=== PATIENT | female | born 1930 | race Caucasian/White ===

== ENCOUNTER 2017-02-18 14:54 | Inpatient (IN) | payer MEDICARE, OTHER ==
[~2017-02-18] VITALS: Ht 154.9 cm; Wt 64.0 kg
[2017-02-18] MEDS ORDERED: SODIUM CHLORIDE 0.9% 1L BAG IV* STA (15:14)
[2017-02-18] MEDS ORDERED: CEFEPIME 2GM/50 ML (PMX) 50 ML IVPB STA (15:14)
[2017-02-18 15:30] VITALS: Ht 154.9 cm; Wt 64.0 kg
[2017-02-18] MEDS ORDERED: VANCOMYCIN 1 GM (PMX) 250 ML IVPB ONE (15:30)
--- NOTE | 2017-02-18 15:54 | ERA ---
ER Documentation Chief Complaint Date/Time DATE: 02/18/17 TIME: 15:51 Chief Complaint pt biba from snf for leaking g-tube HPI 86-year-old female history of chronic encephalopathy, trach, vent dependent, G- tube who presents for leaking G-tube and a fever. Patient arrives from care home facility because there is leaking from around her G-tube. The G-tube appears to be functioning but there is erosion on the left lateral aspect of the stoma. The patient also was noted to have a fever of 100.1 prior to arrival. The patient is nonverbal therefore remainder of HPI is extremely limited. Patient is full code. ROS Nonverbal Medications Home Meds Reported Medications Simvastatin* (Simvastatin*) 5 Mg Tablet, 5 MG GTB QHS, #30 TAB 02/18/17 Ascorbic Acid (Vitamin C) 500 Mg Tab, 500 MG GTB BID, TAB 02/18/17 Acetaminophen* (Tylenol*) 325 Mg Tablet, 650 MG GTB Q4H Y for MILD PAIN LEVEL 1- 3, TAB FOR TEMP ABOVE 100 DEGREES F. 02/18/17 Carbidopa-Levodopa* (Sinemet*) 25-100 Mg Tab, 1 TAB GTB TID, TAB 02/18/17 Potassium Chloride (Potassium Chloride) 20 Meq Packet, 20 MEQ GTB DAILY, PACKET 02/18/17 Clopidogrel Bisulfate* (Clopidogrel Bisulfate*) 75 Mg Tablet, 75 MG GTB DAILY, # 30 TAB 02/18/17 Chlorhexidine Gluconate (Periogard) 473 Ml Mouthwash, 15 ML MM BID, BOTTLE 02/18/17 Memantine* (Namenda*) 5 Mg Tablet, 5 MG GTB DAILY, #30 TAB 02/18/17 Pramipexole* (Pramipexole*) 0.5 Mg Tablet, 0.5 MG GTB DAILY, TAB 02/18/17 Magnesium Hydroxide* (Milk Of Magnesia*) 400 Mg/5 Ml Oral.susp, 30 ML GTB Q4H, ML 02/18/17 Metoprolol Tartrate* (Lopressor*) 25 Mg Tab, 25 MG GTB Q12H, #60 TAB HOLD FOR SBP BELOW 110 OR HR BELOW 60 02/18/17 Furosemide* (Furosemide*) 40 Mg Tablet, 40 MG GTB DAILY, TAB 02/18/17 Heparin Sodium,Porcine/Pf (HEPARIN SOD 5,000 UNIT/ 0.5 ML) 5,000 Unit/0.5 Ml Vial, 5000 UNIT IJ BID, VIAL 02/18/17 Folic Acid* (Folic Acid*) 1 Mg Tablet, 1 MG GTB DAILY, TAB 02/18/17 Sod Phosphate/Sod Biphosphate* (Fleet* Enema Pediatric) 66.6 Ml Soln, 118 ML UT Q72H Y for CONSTIPATION, ENEMA 02/18/17 Ferrous Sulfate* (Ferrous Sulfate*) 325 Mg Tabec, 325 MG GTB BID, TAB 02/18/17 Epoetin Vasyl (Epogen) 10,000 Units/Ml Soln, 89223 UNITS SC DAILY, VIAL MON,SAT,SAT. HOLD IF HGB ABOVE 12 02/18/17 Bisacodyl* (Bisacodyl*) 10 Mg Supp, 10 MG UT Q48H, SUPP 02/18/17 Donepezil* (Donepezil*) 10 Mg Tablet, 10 MG GTB QHS, #30 TAB 02/18/17 Docusate Sodium* (Docusate Sodium*) 100 Mg Capsule, 100 MG GTB BID, #60 CAP 02/18/17 Citric Acid/Sodium Citrate (Oracit Solution 30 Ml) 30 Ml Solution, 30 ML GTB BID 02/18/17 Lactobacillus Rhamnosus* (Culturelle*) 1 Each Cap.sprink, 1 CAP GTB QHS, CAP 02/18/17 Allergies Allergies: Coded Allergies: No Known Allergies (Verified Allergy, Unknown, 02/18/17) Physical Exam Vitals Vital Signs Date Time Temp Pulse Resp B/P Pulse Ox O2 Delivery O2 Flow Rate FiO2 02/18/17 18:57 83 22 142/80 100 Mechanical Ventilator 02/18/17 17:27 80 17 141/100 100 Mechanical Ventilator 02/18/17 17:22 80 19 100 80 02/18/17 16:44 81 17 153/55 100 Room Air 02/18/17 15:32 84 21 100 100 02/18/17 15:30 98.6 84 10 129/67 100 Physical Exam General: No significant distress Head: Normocephalic, atraumatic. Eyes: Pupils equally reactive, EOM intact ENT: Moist mucous membranes Neck: Supple, no lymphadenopathy Respiratory: Lungs clear bilaterally, no distress Cardiovascular: RRR, no murmurs, rubs, or gallops Abdominal: Soft, G-tube site with significant excoriations and likely chronic contact dermatitis, small abrasion to the left lateral aspect of the stoma, G- tube in place : Deferred MSK: Limited movement of all 4 extremities, no bony abnormalities Neurologic: Limited exam, and encephalopathic, limited movement of all 4 extremities Skin: Excoriations to the abdomen and breast areas consistent with intertrigo Psych: Unable to assess Result Diagram: 02/18/17 1600 02/18/17 1600 Results 24 hrs Laboratory Tests Test 02/18/17 16:00 02/18/17 16:05 02/18/17 17:40 White Blood Count 7.710^3/ul Red Blood Count 3.0310^6/ul Hemoglobin 9.2g/dl Hematocrit 31.8% Mean Corpuscular Volume 105.0fl Mean Corpuscular Hemoglobin 30.4pg Mean Corpuscular Hemoglobin Concent 28.9g/dl Red Cell Distribution Width 16.8% Platelet Count 51947^3/UL Mean Platelet Volume 9.4fl Neutrophils % 75.1% Lymphocytes % 13.2% Monocytes % 5.7% Eosinophils % 4.8% Basophils % 0.3% Nucleated Red Blood Cells % 0.0/100WBC Neutrophils # 5.810^3/ul Lymphocytes # 1.010^3/ul Monocytes # 0.410^3/ul Eosinophils # 0.410^3/ul Basophils # 0.010^3/ul Nucleated Red Blood Cells # 0.010^3/ul Prothrombin Time 15.9Sec Prothrombin Time Ratio 1.2 INR International Normalized Ratio 1.26 Activated Partial Thromboplast Time 35.1Sec Sodium Level 140mmol/L Potassium Level 4.1mmol/L Chloride Level 95mmol/L Carbon Dioxide Level 35mmol/L Anion Gap 14 Blood Urea Nitrogen 47mg/dl Creatinine 1.66mg/dl Glucose Level 93mg/dl Lactic Acid Level 1.2mmol/L 1.8mmol/L Calcium Level 8.9mg/dl Total Bilirubin 0.2mg/dl Direct Bilirubin 0.00mg/dl Indirect Bilirubin 0.2mg/dl Aspartate Amino Transf (AST/SGOT) 15IU/L Alanine Aminotransferase (ALT/SGPT) 15IU/L Alkaline Phosphatase 122IU/L Troponin I < 0.012ng/ml Total Protein 7.1g/dl Albumin 2.6g/dl Globulin 4.50g/dl Albumin/Globulin Ratio 0.57 Urine Color LT. YELLOW Urine Clarity CLEAR Urine pH 6.0 Urine Specific Tie Siding 1.010 Urine Ketones NEGATIVE Urine Nitrite NEGATIVE Urine Bilirubin NEGATIVE Urine Urobilinogen 0.2 E.U./dL Urine Leukocyte Esterase 1+ Urine Microscopic RBC 0-2/HPF Urine WBC Clumps OCCASIONAL Urine Microscopic WBC >50/HPF Urine Squamous Epithelial Cells FEW Urine Bacteria MODERATE Urine Hemoglobin NEGATIVE Urine Glucose NEGATIVE% Urine Total Protein 1+ Current Medications Medications (Trade) Dose Ordered Sig/Love Route PRN Reason Start Time Stop Time Status Last Admin Dose Admin Sodium Chloride 2590 ml 2,590 ml BOLUS OVER 2 HOURS STAT IV* 02/18/17 15:14 02/18/17 15:17 DC 02/18/17 16:31 Cefepime HCl 50 ml @ 100 mls/hr ONCE STAT IVPB 02/18/17 15:14 02/18/17 15:43 DC 02/18/17 16:31 Vancomycin HCl (Vancocin) 250 ml @ 125 mls/hr ONCE ONCE IVPB 02/18/17 15:30 02/18/17 17:29 DC 02/18/17 17:29 Clotrimazole (Lotrimin Cr) 1 applic ONCE ONCE TOP 02/18/17 16:00 02/18/17 16:01 DC 02/18/17 16:31 Ondansetron HCl (Zofran Inj) 4 mg ER BRIDGE PRN IV NAUSEA AND/OR VOMITING 02/18/17 19:00 02/19/17 18:59 Acetaminophen (Tylenol Tab) 650 mg ER BRIDGE PRN PO MILD PAIN/FEVER 02/18/17 19:00 02/19/17 18:59 Acetaminophen (Tylenol Tab) 650 mg Q4H PRN GTB MILD PAIN LEVEL 1-3 02/18/17 19:00 UNV Ascorbic Acid (Vitamin C) 500 mg BID GTB 02/18/17 21:00 UNV Bisacodyl (Dulcolax Supp) 10 mg Q48H UT 02/18/17 19:00 UNV Carbidopa/Levodopa (Sinemet (25/ 100)) 1 tab TID GTB 02/18/17 21:00 UNV Chlorhexidine Gluconate (Peridex) 15 ml BID MM 02/18/17 21:00 UNV Clopidogrel Bisulfate (plaVIX) 75 mg DAILY GTB 02/19/17 09:00 UNV Docusate Sodium (Colace) 100 mg BID PO 02/18/17 21:00 UNV Donepezil HCl (Aricept) 10 mg QHS GTB 02/18/17 21:00 UNV Epoetin Vasyl (Epogen (Esrd)) 10,000 units DAILY SC 02/19/17 09:00 UNV Ferrous Sulfate (Ferrous Sulfate (Ec)) 325 mg BID PO 02/18/17 21:00 UNV Folic Acid (Folic Acid) 1 mg DAILY GTB 02/19/17 09:00 UNV Furosemide (Lasix) 40 mg DAILY GTB 02/19/17 09:00 UNV Lactobacillus Acidophilus/ Rhamnosus (Culturelle) 1 cap QHS GTB 02/18/17 21:00 UNV Magnesium Hydroxide (Milk Of Mag) 30 ml Q4H GTB 02/18/17 19:00 UNV Memantine (Namenda) 5 mg DAILY GTB 02/19/17 09:00 UNV Metoprolol Tartrate (Lopressor) 25 mg Q12H GTB 02/18/17 19:00 UNV Potassium Chloride (Potassium Chloride Pwd/Soln) 20 meq DAILY GTB 02/19/17 09:00 UNV Pramipexole (Mirapex) 0.5 mg DAILY GTB 02/19/17 09:00 UNV Sodium Biphosphate/ Sodium Phosphate (Fleet Enema Pediatric) 118 ml Q72H PRN UT CONSTIPATION 02/18/17 19:00 UNV Miscellaneous Information 30 ml BID GTB 02/18/17 21:00 UNV Miscellaneous Information 5,000 unit BID IJ 02/18/17 21:00 UNV Miscellaneous Information 5 mg QHS GTB 02/18/17 21:00 UNV Procedures/MDM EKG, MONITORS, & DIAGNOSTIC IMAGING: EKG: I reviewed and interpreted a 12-lead EKG. Rhythm: Normal sinus rhythm Ectopy: None Intervals: No abnormalities ST segments: No elevations or depressions T waves: No contiguous inversions Chest x-ray: I reviewed and interpreted a 1 view of the chest Mediastinum: No enlargement Cardiac silhouette: No cardiomegaly Airspace: Clear lung warren bilaterally without evidence of pneumothorax Bones: No evidence of fracture CT abdomen and pelvis: IMPRESSION: 1. COPD with plate-like areas of atelectasis in the right left lower lobes and compressive atelectasis in the left lower lobe. There are bilateral pleural effusions. 2. Atherosclerotic vascular disease involving the coronary arteries. 3. There is a large hiatal hernia. 4. Gastrostomy tube is well positioned in the antrum of the stomach. 5. Splenomegaly with an accessory splenule. 6. There are several nodules and subcutaneous stranding over the anterior abdominal and anterior pelvic wall. Etiology unknown. 7. Myositis ossificans involving the left hip. 8. Diverticulosis of the descending and sigmoid colon. 9. Spondylosis of the thoracic and lumbosacral spine. RPTAT:AAJJ LAB INTERPRETATION: No evidence of lactic acidosis or significant leukocytosis, urinary tract infection MEDICAL DECISION MAKING: The patient presents with multiple issues. The first is that her G-tube is leaking. She has not erosions of the left lateral aspect of the stoma. This is likely consistent with chronic process. GI consultation on a nonemergent basis would be reasonable. The patient also has a report of a low-grade fever. She is ventilator dependent. Broad differential including pneumonia, UTI, acute intra-abdominal process. Sepsis screening will be initiated. The patient's rectal temperature is normal. ER COURSE: Fluid resuscitation was initiated with a 30 cc/kg bolus of saline. Patient was given vancomycin and cefepime empirically. Patient remains well-appearing and is hemodynamically stable. No evidence of severe sepsis. The patient has no significant leukocytosis. I kept the patient and/or family informed of laboratory and diagnostic imaging results throughout the emergency room course. DISPOSITION PLAN: Telemetry admission CONSULTATION: Accepting care team and consultations: I discussed the current laboratory data, diagnostic imaging and emergency care provided. Admitting team: Dr. Rosas Admitting team indication: Insurance directed Departure Diagnosis: Primary Impression: Chronic respiratory failure Qualified Code: J96.10 - Chronic respiratory failure, unspecified whether with hypoxia or hypercapnia Additional Impressions: Urinary tract infection Qualified Code: N39.0 - Urinary tract infection without hematuria, site unspecified Malfunction of gastrostomy tube Encephalopathy chronic Condition: Stable HUGH BELL MD February 18, 2017 15:54
[2017-02-18] MEDS ORDERED: CLOTRIMAZOLE 1% 30 GM CR TOP ONE (16:00)
[2017-02-18 16:33] LABS: ADD SCAN DIFF NO
[2017-02-18 16:35] LABS: ABNORMAL IP MESSAGE 1; BASOPHILS % 0.3 % (0.0-2.0); EOSINOPHILS # 0.4 10^3/ul (0.0-0.5); EOSINOPHILS % 4.8 % (0.0-7.0); HEMATOCRIT 31.8 % (37.0-47.0); HEMOGLOBIN 9.2 g/dl (12.0-16.0); LYMPHOCYTES % 13.2 % (15.0-51.0); MEAN CORPUSCULAR HEMOGLOBIN 30.4 pg (29.0-33.0); MEAN CORPUSCULAR HGB CONC 28.9 g/dl (32.0-37.0); MEAN PLATELET VOLUME 9.4 fl (7.4-10.4); MONOCYTE # 0.4 10^3/ul (0.3-0.9); MONOCYTES % 5.7 % (0.0-11.0); NEUTROPHIL # 5.8 10^3/ul (1.6-7.5); NEUTROPHILS % 75.1 % (39.0-77.0); PLATELET COUNT 462 10^3/UL (140-415); RED BLOOD COUNT 3.03 10^6/ul (4.20-5.40); RED CELL DISTRIBUTION WIDTH 16.8 % (11.5-14.5); WHITE BLOOD COUNT 7.7 10^3/ul (4.8-10.8)
--- NOTE | 2017-02-18 16:39 | RADRPT ---
PROCEDURE: XR Chest. CLINICAL INDICATION: Chest pain. TECHNIQUE: PA and Lateral views of the chest were obtained. COMPARISON: Chest x-ray September 19, 2013. FINDINGS: The soft tissues are normal. There are degenerative osteophytes in the thoracic spine. The heart i s enlarged. The cardiomediastinal silhouette and hilar structures are normal. The pulmonary vascula ture is equilibrated. There are vascular calcifications in the aortic arch. A tracheostomy tube is in place with its tip about 3 cm superior to the bossman. There is consolidative infiltrate in the le ft lower lobe. Faint interstitial pulmonary edema may be present. The diffuse infiltrate seen in th e right lung on the prior study have improved overall. There are bilateral pleural effusions. IMPRESSION: 1. Cardiomegaly with congestive heart failure and bilateral pleural effusions. 2. Asymmetric consolidative infiltrate in the left lower lobe which may be the result of a pneumoni a. 3. Tracheostomy tube is well-positioned at T6. RPTAT:AAJJ Physician Gisella Date Time Electronically viewed and signed by Physician Gisella on 02/18/2017 16:39 ARETHA/
[2017-02-18 16:40] LABS: ADD UMIC YES; URINE BILIRUBIN (Dip) NEGATIVE (NEGATIVE); URINE BLOOD (Dip) NEGATIVE (NEGATIVE); URINE COLOR LT. YELLOW (YELLOW); URINE GLUCOSE (Dip) NEGATIVE (NEGATIVE); URINE KETONES (Dip) NEGATIVE (NEGATIVE); URINE LEUKOCYTE ESTERASE (Dip) 1+ (NEGATIVE); URINE NITRITE (Dip) NEGATIVE (NEGATIVE); URINE TOTAL PROTEIN (Dip) 1+ (NEGATIVE); URINE UROBILINOGEN (Dip) 0.2 E.U./dL (0.1-1.0)
[2017-02-18 16:46] LABS: INR 1.26; PROTIME 15.9 Sec (12.2-14.2); PT RATIO 1.2
[2017-02-18 16:47] LABS: ALBUMIN 2.6 g/dl (3.3-4.9); CHLORIDE 95 mmol/L (97-110); PARTIAL THROMBOPLASTIN TIME 35.1 Sec (25.0-35.0); SODIUM 140 mmol/L (135-144)
[2017-02-18 16:48] LABS: POTASSIUM 4.1 mmol/L (3.5-5.1)
[2017-02-18 16:50] LABS: ALANINE AMINOTRANSFERASE 15 IU/L (13-69); ALBUMIN/GLOBULIN RATIO 0.57; ALKALINE PHOSPHATASE 122 IU/L (42-121); ANION GAP 14 (8-16); ASPARTATE AMINO TRANSFERASE 15 IU/L (15-46); BILIRUBIN,INDIRECT 0.2 mg/dl (0-1.1); BILIRUBIN,TOTAL 0.2 mg/dl (0.2-1.3); BLOOD UREA NITROGEN 47 mg/dl (7-20); CALCIUM 8.9 mg/dl (8.4-10.2); CARBON DIOXIDE 35 mmol/L (21-31); CREATININE 1.66 mg/dl (0.44-1.00); GLUCOSE 93 mg/dl (70-220); TOTAL PROTEIN 7.1 g/dl (6.1-8.1)
[2017-02-18 17:02] LABS: TROPONIN-I < 0.012 ng/ml (0.00-0.12)
[2017-02-18] MEDS ORDERED: LACT1CAP57 GTB (17:07)
[2017-02-18] MEDS ORDERED: CITR30SO GTB (17:10)
[2017-02-18] MEDS ORDERED: DOCU-159 GTB (17:11)
[2017-02-18] MEDS ORDERED: BISA10SU75 PR (17:12)
[2017-02-18] MEDS ORDERED: DONE10TA7 GTB (17:12)
[2017-02-18] MEDS ORDERED: EPO10ESRD SC (17:14)
[2017-02-18] MEDS ORDERED: FER325 GTB (17:14)
[2017-02-18] MEDS ORDERED: FLEETPED PR (17:15)
[2017-02-18] MEDS ORDERED: FOLI-49 GTB (17:16)
[2017-02-18] MEDS ORDERED: HEPA500021 IJ (17:16)
[2017-02-18] MEDS ORDERED: FURO40TA4 GTB (17:17)
[2017-02-18] MEDS ORDERED: METO-448 GTB (17:18)
[2017-02-18 17:19] LABS: BACTERIA,URINE MODERATE; URINE RBCS 0-2 /HPF ([, 0])
[2017-02-18] MEDS ORDERED: MAGN400O4 GTB (17:19)
[2017-02-18 17:20] LABS: SQUAMOUS EPITHELIAL CELL,UR FEW
[2017-02-18] MEDS ORDERED: PRAM0.5T GTB (17:20)
[2017-02-18] MEDS ORDERED: MEMA5TAB GTB (17:21)
[2017-02-18] MEDS ORDERED: CHLO473M2 MM (17:23)
[2017-02-18] MEDS ORDERED: CLOP75TA4 GTB (17:24)
[2017-02-18] MEDS ORDERED: POTA20PA23 GTB (17:26)
[2017-02-18] MEDS ORDERED: SIN25100 GTB (17:27)
[2017-02-18] MEDS ORDERED: ACET325T33 GTB (17:28)
[2017-02-18] MEDS ORDERED: ASC500 GTB (17:29)
[2017-02-18] MEDS ORDERED: SIMV5TAB50 GTB (17:30)
[2017-02-18] MEDS: MAGNESIUM HYDROXIDE 30ML CUP GTB SCH ×2 (19:00→23:10)
[2017-02-18] MEDS ORDERED: ACETAMINOPHEN 325 MG TAB PO PRN (19:00)
[2017-02-18] MEDS: BISACODYL 10 MG SUPP PR SCH (19:00)
[2017-02-18] MEDS ORDERED: ACETAMINOPHEN 325 MG TAB GTB PRN (19:00)
[2017-02-18] MEDS ORDERED: NA PHOSPHATE/BIPHOS 66.6 ML ENEMA PR PRN (19:00)
[2017-02-18] MEDS ORDERED: ONDANSETRON 4 MG INJ IV PRN (19:00)
--- NOTE | 2017-02-18 19:12 | RADRPT ---
PROCEDURE: CT scan of the abdomen and pelvis without IV contrast. CLINICAL INDICATION: Possible sepsis. TECHNIQUE: Thin section axial, coronal and sagittal images were performed through the abdomen and pelvis without contrast. Radiation Dose: CTDI: 58.2 and DLP: 846 One or more of the following dose reduction techniques were used: - Automated exposure control. - Adjustment of the mA and/or kV according to patient size. Use of iterative reconstruction technique. COMPARISON: Chest x-ray 11/23/2016 06:18 a.m. FINDINGS: Soft tissues: There are multiple areas of subcutaneous stranding over the anterior abdominal wall. There is a 1.4 cm subcutaneous mass over the lower left anterior abdominal wall. A 1.1 x 1 cm mass is noted ventral right mid pelvic wall. There are additional smaller nodules over the anterior wall of the pelvis. The soft tissues are generous.. Lungs and pleural spaces: There are bilateral pleural effusions. There are chronic interstitial mar kings in the bases of the lungs which may relate to COPD. There is subsegmental atelectasis in the right left lower lobes. Heart: The heart is mildly enlarged. No pericardial effusion is present. The liver, common bile duct and gallbladder: The liver is unremarkable. The gallbladder and gallbla dder wall are normal. Gastrointestinal: There is a large hiatal hernia with about half of the stomach and adjacent omental fat extending above the left diaphragm. Gastric wall thickening is attributed to incomplete disten shakira. A gastrostomy tube is noted in the antrum of the stomach. It is well positioned. There are d iverticula in the sigmoid colon and descending colon. Pancreas: There is fatty replacement and mild atrophy of the pancreas. No pancreatic mass is identi fied. The extrahepatic common bile duct is normal. Kidneys, bladder and adrenal glands : The adrenal glands are normal. The kidneys are normal. The u rinary bladder is normal but is incompletely distended. Spleen: The spleen measures 13.9 cm which is enlarged. There is an accessory splenule. Lymph nodes: Normal. Reproductive system and pelvis : The uterus is unremarkable. No abnormal adnexal mass is identified . No free fluid is noted in the pelvis. Bony elements: There is heterotopic calcification suspicious for myositis ossificans in the area of the left hip and proximal left femur. Vasculature: There are atherosclerotic vascular calcifications in the abdomen and pelvis. IMPRESSION: 1. COPD with plate-like areas of atelectasis in the right left lower lobes and compressive atelecta sis in the left lower lobe. There are bilateral pleural effusions. 2. Atherosclerotic vascular disease involving the coronary arteries. 3. There is a large hiatal hernia. 4. Gastrostomy tube is well positioned in the antrum of the stomach. 5. Splenomegaly with an accessory splenule. 6. There are several nodules and subcutaneous stranding over the anterior abdominal and anterior pe lvic wall. Etiology unknown. 7. Myositis ossificans involving the left hip. 8. Diverticulosis of the descending and sigmoid colon. 9. Spondylosis of the thoracic and lumbosacral spine. RPTAT:AAJJ Physician Gisella Date Time Electronically viewed and signed by Todd Segundo Physician on 02/18/2017 19:12 /
[2017-02-18] MEDS ORDERED: NA PHOSPHATE/BIPHOS 133 ML ENEMA PR PRN (20:30)
[2017-02-18] MEDS ORDERED: CITRIC ACID/NA CITRATE 30 ML CUP GTB SCH (21:00)
[2017-02-18] MEDS ORDERED: NON-FORMULARY/PATIENT OWN MED (Simvastatin* 5 MG) GTB SCH (21:00)
[2017-02-18] MEDS ORDERED: SODIUM CITRATE GTB SCH (21:00)
[2017-02-18] MEDS ORDERED: [UNRECOGNIZED DRUG - OTHER] GTB SCH (21:00)
[2017-02-18] MEDS ORDERED: DOCUSATE SODIUM 100 MG CAP PO SCH (21:00)
[2017-02-18] MEDS ORDERED: FERROUS SULFATE (EC) 325 MG TAB PO SCH (21:00)
[2017-02-18] MEDS ORDERED: CITRIC ACID GTB SCH (21:00)
[2017-02-18 21:23] VITALS: BP 131/60; RESP 37
[2017-02-18 21:24] VITALS: BP 131/60; RESP 37
[2017-02-18] MEDS: ATORVASTATIN 10 MG TAB PO SCH (21:52)
[2017-02-18] MEDS: DONEPEZIL 10 MG TAB GTB SCH (21:52)
[2017-02-18] MEDS: CARBIDOPA/LEVODOPA (25/100) TAB GTB SCH (21:52)
[2017-02-18] MEDS: DOCUSATE SODIUM 10 MG/ML (10ML CUP) GTB SCH (21:52)
[2017-02-18] MEDS: CHLORHEXIDINE GLUCONATE 15 ML UD CUP MM SCH (21:52)
[2017-02-18] MEDS: FERROUS SULFATE 60 MG/ML 5ML CUP GTB SCH (21:52)
[2017-02-18] MEDS: ASCORBIC ACID 500 MG TAB GTB SCH (21:53)
[2017-02-18] MEDS: METOPROLOL 25 MG TAB GTB SCH (21:53)
[2017-02-18] MEDS: HEPARIN 5,000 UNIT/0.5 ML VIAL SC SCH (21:58)
[2017-02-18 22:10] VITALS: RESP 10
[2017-02-18] MEDS: LACTOBACILLUS RHAMNOSUS CAP GTB SCH (23:07)
[2017-02-18] MEDS: CITRIC ACID/SODIUM CITRATE 15 ML CUP GTB SCH (23:10)
--- NOTE | 2017-02-18 23:30 | CONS ---
DATE OF ADMISSION: 02/18/2017 DATE OF CONSULTATION: 02/18/2017 TYPE OF CONSULTATION: Infectious disease. REASON FOR CONSULTATION: Antibiotic management. HISTORY OF PRESENT ILLNESS: Kailey French is an 86-year-old female with chronic encephalopathy and numerous problems brought in by ambulance from a SNF for a leaking G-tube. Her past problems inclu de: 1. Chronic encephalopathy. 2. Ventilator-dependent respiratory failure. 3. Tracheostomy. 4. Dysphagia with G-tube placement. 5. Hyperlipidemia. 6. Parkinson disease. 7. Hypertension. 8. Anemia of chronic disease. Acutely, the patient comes in with G-tube leakage and fever. G-tube appears to be functioning, but there is erosion the left lateral aspect of the stoma. The patient had a temperature of 100.1 on ar rival. She is nonverbal. PAST MEDICAL HISTORY: Operations as outlined. FAMILY HISTORY: Noncontributory. SOCIAL HISTORY: She does not smoke, drink, or abuse drugs. She lives in a intermediate facility . ALLERGIES: NONE TO PENICILLIN, SULFA, OR FOODS. MEDICATIONS: Per chart. REVIEW OF SYSTEMS: As per HPI. PHYSICAL EXAMINATION: GENERAL: The patient is an elderly appearing female who is awake, but nonverbal, in no acute distre ss. VITAL SIGNS: Stable. She has a trach and a PEG. SKIN: Excoriations to the abdomen and breast area. HEENT: Within normal limits. NECK: Supple. Tracheostomy in place. LYMPH NODES: None palpable. CHEST: Decreased breath sounds at the bases. HEART: Without murmur or gallop. ABDOMEN: Soft, nontender. There is erythema around the G-tube site and leakage. No organosplenome cindy or masses. EXTREMITIES: Without cyanosis, clubbing, or edema. RECTAL AND GENITAL: Deferred. NEUROLOGIC: The patient is encephalopathic. No other focal neurological abnormalities. ANCILLARY LABORATORY DATA: White count was 7.7, H and H of 9.2 and 31.8, platelet count 462,000. B UN and creatinine 47/1.66, glucose is 93. The patient was started on vancomycin and cefepime. IMAGING STUDIES: Chest x-ray shows no evidence of pneumonia. CT scan of the abdomen and pelvis: T he patient has COPD with plate-like atelectasis in the right and left lower lobes, compressive atele ctasis in the left lower lobe, bilateral pleural effusions, large hiatal hernia, gastrostomy tube is well positioned in the antrum of the stomach, splenomegaly is present, several nodules and subcutan eous strands over the anterior abdominal and pelvic wall, myositis ossificans involving left hip, di verticulosis of the descending and sigmoid colon, spondylosis of the thoracic and lumbosacral spine. IMPRESSION AND PLAN: I believe a GI consultation should be called and the G tube should be replaced . It may need to be taken out and placed in a different position. The patient has a urine showing 1+ leukocyte esterase and greater than 50 white cells per high-power field, which can be consistent also with urinary tract infection. Chest x-ray, although read as being negative by the ER doctor, s hows asymmetric consolidative infiltrate in the left lower lobe, which may be the result of pneumoni a. A CT scan of the abdomen and pelvis was done and we have reviewed that. So, in conclusion, the patient is on vancomycin and cefepime. I would continue that regimen. She needs a GI consultation. I will dictate my findings to the hospitalists. Dictated By: GABINO TINAJERO MD, JD/RAYSA Conf#: [id number] DID#: [id number] CC: OSMAR MONTAGUE DO;*EndCC*
[2017-02-18 23:52] VITALS: RESP 10
[2017-02-19] VITALS (24 sets, daily range): BP systolic 96–139; BP diastolic 50–66; PULSE 69–77; RESP 10–35
[2017-02-19] MEDS: MAGNESIUM HYDROXIDE 30ML CUP GTB SCH ×6 (03:47→23:00)
[2017-02-19] MEDS: FUROSEMIDE 40 MG TAB GTB SCH (06:00)
[2017-02-19] MEDS: PRAMIPEXOLE 0.25 MG TAB GTB SCH (09:00)
[2017-02-19] MEDS: CITRIC ACID/SODIUM CITRATE 15 ML CUP GTB SCH ×2 (09:00→22:30)
[2017-02-19] MEDS: METOPROLOL 25 MG TAB GTB SCH ×2 (09:33→19:00)
[2017-02-19] MEDS: CHLORHEXIDINE GLUCONATE 15 ML UD CUP MM SCH ×2 (09:33→22:27)
[2017-02-19] MEDS: DOCUSATE SODIUM 10 MG/ML (10ML CUP) GTB SCH ×2 (09:34→21:00)
[2017-02-19] MEDS: FERROUS SULFATE 60 MG/ML 5ML CUP GTB SCH ×2 (09:34→21:00)
[2017-02-19] MEDS: CLOPIDOGREL 75 MG TAB GTB SCH (09:34)
[2017-02-19] MEDS: FOLIC ACID 1 MG TAB GTB SCH (09:34)
[2017-02-19] MEDS: MEMANTINE 5 MG TAB GTB SCH (09:34)
[2017-02-19] MEDS: POTASSIUM CHLORIDE 20 MEQ POWDER FOR ORAL SOLN GTB SCH (09:35)
[2017-02-19] MEDS: ASCORBIC ACID 500 MG TAB GTB SCH ×2 (09:35→21:00)
[2017-02-19] MEDS: CARBIDOPA/LEVODOPA (25/100) TAB GTB SCH ×3 (09:35→21:00)
[2017-02-19] MEDS: DEXTROSE 5% 1,000 ML IV SCH (09:51)
[2017-02-19] MEDS: HEPARIN 5,000 UNIT/0.5 ML VIAL SC SCH ×2 (09:59→22:31)
[2017-02-19 10:16] LABS: ADD SCAN DIFF NO
[2017-02-19 10:22] LABS: ABNORMAL IP MESSAGE 1; BASOPHILS % 0.3 % (0.0-2.0); EOSINOPHILS # 0.5 10^3/ul (0.0-0.5); EOSINOPHILS % 6.9 % (0.0-7.0); HEMATOCRIT 29.9 % (37.0-47.0); HEMOGLOBIN 8.7 g/dl (12.0-16.0); LYMPHOCYTES # 0.5 10^3/ul (0.8-2.9); LYMPHOCYTES % 6.8 % (15.0-51.0); MEAN CORPUSCULAR HEMOGLOBIN 30.3 pg (29.0-33.0); MEAN CORPUSCULAR HGB CONC 29.1 g/dl (32.0-37.0); MEAN CORPUSCULAR VOLUME 104.2 fl (82.0-101.0); MEAN PLATELET VOLUME 9.4 fl (7.4-10.4); MONOCYTE # 0.3 10^3/ul (0.3-0.9); MONOCYTES % 3.7 % (0.0-11.0); NEUTROPHIL # 5.8 10^3/ul (1.6-7.5); NEUTROPHILS % 81.3 % (39.0-77.0); PLATELET COUNT 428 10^3/UL (140-415); RED BLOOD COUNT 2.87 10^6/ul (4.20-5.40); RED CELL DISTRIBUTION WIDTH 16.9 % (11.5-14.5); WHITE BLOOD COUNT 7.1 10^3/ul (4.8-10.8)
--- NOTE | 2017-02-19 10:39 | HP ---
DATE OF ADMISSION: 02/18/2017 CHIEF COMPLAINT: Fever, G-tube malfunction. HISTORY OF PRESENT ILLNESS: This is an 86-year-old female with a past medical history of advanced A lzheimer's dementia, history of ventilator-dependent respiratory failure, history of chronic kidney disease stage IV, history of anemia, history of contractures, history of Parkinson's disease, histor y of dysphagia, status post PEG, history of coronary artery disease, who presents to [facility] emergency room for evaluation of fever and malfunctioning G-tube. The patient was noted at her custodial facility to have elevated fever of 101. The patient also noted to have leaking adam und G-tube site. The patient was evaluated by a route delivery manager at the [facility] who recommended G-tube exchanged. Upon arrival to the emergency room, the patient was afebrile, had laboratory data drawn, which showed a white count 7.7. The patient had a CT scan of the abdomen an d pelvis and chest x-ray. Chest x-ray showed evidence of CHF, bilateral fluids as well as an infilt rate in the left lower lobe. A CT scan of the abdomen and pelvis was also performed, which showed s plenomegaly, COPD, atherosclerosis, hiatal hernia and subcutaneous nodules over abdominopelvic wall with diverticulosis. In the emergency room, the patient was started on IV antibiotics and admitted to telemetry for further evaluation. Upon my evaluation of the patient at this time, the patient is nonverbal, obtunded at her baseline. There have been no reports of hemoptysis, hematemesis or hematochezia. PAST MEDICAL HISTORY: As stated above, history of ventilator-dependent respiratory failure, history of dysphagia, history of advanced Parkinson's dementia, history of encephalopathy, history of CKD s tage IV, history of anemia, history of coronary artery disease, history of peripheral vascular disea se, history of hypertension, history of diabetes. PAST SURGICAL HISTORY: Status post trach, status post PEG. FAMILY HISTORY: Noncontributory. SOCIAL HISTORY: Lives at a subacute facility. ALLERGIES: NO KNOWN DRUG ALLERGIES. MEDICATIONS: The patient's medications have been reviewed and reconciled. REVIEW OF SYSTEMS: Unable to do adequate review of systems as patient is nonverbal. Pertinent posi tives obtained by reviewing medical records, speaking to hospital staff, stated in the HPI, otherwis e negative. PHYSICAL EXAMINATION: VITAL SIGNS: Blood pressure 123/55, respirations 12, pulse 70/69, temperature 98.4. HEENT: Head is normocephalic. Pupils are reactive to light. NECK: Shows trach. HEART: Regular rate. LUNGS: Show diminished breath sounds at the bases as well as rhonchi. ABDOMEN: Soft, nontender to palpation. Positive PEG. Noted just leakage around the PEG. Noted er ythema around the anterior abdominal wall. EXTREMITIES: Negative for clubbing, cyanosis. Trace edema. Positive contractures. DERMATOLOGIC: No new rashes noted. MUSCULOSKELETAL: Positive wounds. NEUROLOGIC: The patient is obtunded. LABORATORY DATA: The patient has a white count 7.7, hemoglobin 9.2, hematocrit 31.8, platelet count is 462. Sodium 140, potassium 4.1, chloride 95, BUN 47, creatinine 1.66. Lactic acid 2.8, alkalin e phosphatase 122. IMAGING STUDIES: As stated in the HPI. ASSESSMENT AND PLAN: This is an 86-year-old female who presents with: 1. Sepsis secondary to presumed urinary tract infection. The patient has got a dirty UA, noted fev er. We will continue current antibiotic regimen. We will follow up blood cultures, urine cultures. We will follow up with infectious disease for further recommendations. 2. G-tube malfunction. We will place a GI consult with Dr. Degroot for evaluation. 3. Abdominal wall cellulitis, possibly fungal or bacterial. We will continue the patient on curren t antibiotic regimen. Follow up with infectious disease. 4. Ventilator-dependent respiratory failure. Vent settings reviewed. Follow up with pulmonary. Jacob chery current vent settings. 5. Chronic kidney disease stage IV. The patient's renal function is at baseline. We will continue supportive care, renally dose all meds, avoid nephrotoxins. 6. Acute congestive heart failure exacerbation, systolic and diastolic. The patient is clinically decompensated, chest x-ray shows congestion. We will continue current diuretic regimen. We will pl alice a cardiology consult for evaluation. 7. Advanced Parkinson's dementia with encephalopathy. We will continue current medical management. 8 Coronary artery disease. Continue current treatment plan. 9. Hypertension. Continue current blood pressure regimen. 10. Anemia of chronic disease. Continue to monitor hemoglobin and hematocrit levels. Continue Epo gen. 11. Mineral bone disorder. Monitor calcium and phosphorus levels. 12. Wounds. We will place a wound care consult for evaluation. 13. Gastrointestinal and deep venous thrombosis prophylaxis. Continue proton pump inhibitor and he santi. Dictated By: OSMAR HERNANDEZ/RAYSA Conf#: [id number] DID#: [id number]
[2017-02-19 10:44] LABS: CALCIUM 8.4 mg/dl (8.4-10.2); CREATININE 1.53 mg/dl (0.44-1.00); MAGNESIUM 2.3 mg/dl (1.7-2.5); PHOSPHORUS 4.2 mg/dl (2.5-4.9); POTASSIUM 3.9 mmol/L (3.5-5.1)
--- NOTE | 2017-02-19 11:11 | CONS ---
Date/Time of Note Date/Time of Note DATE: 02/19/17 TIME: 11:05 Assessment/Plan Assessment/Plan Additional Assessment/Plan Chest x-ray was reviewed from yesterday which is showing minimal left lower lobe atelectatic changes. CT abdomen also was reviewed which is showing left lower lobe basilar atelectasis but the hiatal hernia. Urine analysis is positive for UTI. Ventilator settings; AC of 10, tidal volume 450, PEEP of 5, 50% FiO2. Assessment recommendations; 1. Patient admitted for low-grade fever possibly from UTI. 2. Chronic respiratory failure. 3. Multiple other comorbidities including advanced dementia, CHF, hypertension , diabetes, anemia, chronic renal insufficiency, and Parkinson's disease. Continue current treatment. Consultation Date/Type/Reason Admit Date/Time February 18, 2017 at 18:41 Date of Consultation: February 19, 2017 Type of Consultation: Pulmonary Reason for Consultation Pulmonary consultation obtained for evaluation of chronic respiratory failure and possibly left lower lobe pneumonia. History of presenting illness Phil Patient is a 86-year-old white lady who is a resident of nursing with the patient was transferred over to [facility] with complaints of fever of 10 1F. Upon further evaluation a UA was done which is positive for UTI patient also has had a chest x-ray done which is showing left lower lobe infiltrative changes which are suggestive of either an acute infiltrate versus areas of atelectasis. The patient is a very poor historian on account of advanced dementia. History was obtained from medical records. Past medical history; 1. Chronic respiratory failure, ventilator dependent. 2. Advanced dementia. 3. Chronic renal insufficiency. 4. Anemia. 5. Parkinson's disease. 6. CHF. 7. Hypertension. 8. Diabetes. 9. History of coronary artery disease. 10. Status post tracheostomy and G-tube placement. Medications; were reviewed. Allergies; none. Social history, family history, occupational history's are not available. Review of systems; unable to be obtained. General exam; elderly woman, somewhat arousable, on ventilator via tracheostomy , currently in no distress. Social History Smoking Status: Unknown if ever smoked Exam/Review of Systems Vital Signs Vitals Vital Signs Date Time Temp Pulse Resp B/P Pulse Ox O2 Delivery O2 Flow Rate FiO2 02/19/17 09:20 66 15 98 50 02/19/17 08:22 98.4 123/55 02/18/17 20:22 Mechanical Ventilator Intake and Output 02/18/17 02/18/17 02/19/17 15:00 23:00 07:00 Intake Total 300 ml 0 ml Balance 300 ml 0 ml Exam HEENT exam is; supple neck, JVD difficult to see because of short neck. She has fair dentition. Tracheostomy in place with clean insertion site. No neck masses. No lymphadenopathy. No thyromegaly. Chest examination; diminished but clear vessel. S1-S2 audible, no murmurs. Regular rhythm. Abdomen examination; soft, no distention. No organomegaly. Bowel sounds audible. G-tube in place. Extremity exam is; no peripheral edema. Pulses 1+ bilaterally. No clubbing. RESIDENTIAL INSURANCE INSPECTOR examination; patient is somewhat arousable. Results Result Diagram: 02/19/17 1000 02/19/17 1000 Results 24 hrs Laboratory Tests Test 02/18/17 16:00 02/18/17 16:05 02/18/17 17:40 02/18/17 21:45 White Blood Count 7.7 Red Blood Count 3.03 L Hemoglobin 9.2 L Hematocrit 31.8 L Mean Corpuscular Volume 105.0 H Mean Corpuscular Hemoglobin 30.4 Mean Corpuscular Hemoglobin Concent 28.9 L Red Cell Distribution Width 16.8 H Platelet Count 462 H Mean Platelet Volume 9.4 Neutrophils % 75.1 Lymphocytes % 13.2 L Monocytes % 5.7 Eosinophils % 4.8 Basophils % 0.3 Nucleated Red Blood Cells % 0.0 Neutrophils # 5.8 Lymphocytes # 1.0 Monocytes # 0.4 Eosinophils # 0.4 Basophils # 0.0 Nucleated Red Blood Cells # 0.0 Prothrombin Time 15.9 H Prothrombin Time Ratio 1.2 INR International Normalized Ratio 1.26 Activated Partial Thromboplast Time 35.1 H Sodium Level 140 Potassium Level 4.1 Chloride Level 95 L Carbon Dioxide Level 35 H Anion Gap 14 Blood Urea Nitrogen 47 H Creatinine 1.66 H Glucose Level 93 Lactic Acid Level 1.2 1.8 2.8 H Calcium Level 8.9 Total Bilirubin 0.2 Direct Bilirubin 0.00 Indirect Bilirubin 0.2 Aspartate Amino Transf (AST/SGOT) 15 Alanine Aminotransferase (ALT/SGPT) 15 Alkaline Phosphatase 122 H Troponin I < 0.012 Total Protein 7.1 Albumin 2.6 L Globulin 4.50 H Albumin/Globulin Ratio 0.57 Urine Color LT. YELLOW Urine Clarity CLEAR Urine pH 6.0 Urine Specific Ohlman 1.010 Urine Ketones NEGATIVE Urine Nitrite NEGATIVE Urine Bilirubin NEGATIVE Urine Urobilinogen 0.2 E.U./dL Urine Leukocyte Esterase 1+ H Urine Microscopic RBC 0-2 Urine WBC Clumps OCCASIONAL Urine Microscopic WBC >50 Urine Squamous Epithelial Cells FEW Urine Bacteria MODERATE Urine Hemoglobin NEGATIVE Urine Glucose NEGATIVE Urine Total Protein 1+ H Test 02/19/17 10:00 White Blood Count 7.1 Red Blood Count 2.87 L Hemoglobin 8.7 L Hematocrit 29.9 L Mean Corpuscular Volume 104.2 H Mean Corpuscular Hemoglobin 30.3 Mean Corpuscular Hemoglobin Concent 29.1 L Red Cell Distribution Width 16.9 H Platelet Count 428 H Mean Platelet Volume 9.4 Neutrophils % 81.3 H Lymphocytes % 6.8 L Monocytes % 3.7 Eosinophils % 6.9 Basophils % 0.3 Nucleated Red Blood Cells % 0.0 Neutrophils # 5.8 Lymphocytes # 0.5 L Monocytes # 0.3 Eosinophils # 0.5 Basophils # 0.0 Nucleated Red Blood Cells # 0.0 Sodium Level 140 Potassium Level 3.9 Chloride Level Pending Carbon Dioxide Level 33 H Anion Gap Pending Blood Urea Nitrogen 42 H Creatinine 1.53 H Glucose Level 91 Calcium Level 8.4 Phosphorus Level 4.2 Magnesium Level 2.3 Medications Medications Current Medications Acetaminophen (Tylenol Tab) 650 mg Q4H PRN GTB MILD PAIN LEVEL 1-3; Start at 19:00 Ascorbic Acid (Vitamin C) 500 mg BID GTB Last administered on 02/19/17 09:35; Admin Dose 500 MG; Start 02/18/17 at 21:00 Bisacodyl (Dulcolax Supp) 10 mg Q48H MT ; Start 02/18/17 at 19:00 Carbidopa/Levodopa (Sinemet (25/ 100)) 1 tab TID GTB Last administered on 09:35; Admin Dose 1 TAB; Start 02/18/17 at 21:00 Chlorhexidine Gluconate (Peridex) 15 ml BID MM Last administered on 02/19/17 09 :33; Admin Dose 15 ML; Start 02/18/17 at 21:00 Clopidogrel Bisulfate (plaVIX) 75 mg DAILY GTB Last administered on 02/19/17 09 :34; Admin Dose 75 MG; Start 02/19/17 at 09:00 Donepezil HCl (Aricept) 10 mg QHS GTB Last administered on 02/18/17 21:52; Admin Dose 10 MG; Start 02/18/17 at 21:00 Epoetin Vasyl (Epogen (Esrd)) 10,000 units DAILY@17 SC ; Start 02/19/17 at 17:00 Folic Acid (Folic Acid) 1 mg DAILY GTB Last administered on 02/19/17 09:34; Admin Dose 1 MG; Start 02/19/17 at 09:00 Furosemide (Lasix) 40 mg DAILY@06 GTB ; Start 02/19/17 at 06:00 Lactobacillus Acidophilus/ Rhamnosus (Culturelle) 1 cap QHS GTB Last administered on 02/18/17 23:07; Admin Dose 1 CAP; Start 02/18/17 at 21:00 Magnesium Hydroxide (Milk Of Mag) 30 ml Q4H GTB Last administered on 02/19/17 09:33; Admin Dose 30 ML; Start 02/18/17 at 19:00 Memantine (Namenda) 5 mg DAILY GTB Last administered on 02/19/17 09:34; Admin Dose 5 MG; Start 02/19/17 at 09:00 Metoprolol Tartrate (Lopressor) 25 mg Q12H GTB Last administered on 02/19/17 09 :33; Admin Dose 25 MG; Start 02/18/17 at 19:00 Potassium Chloride (Potassium Chloride Pwd/Soln) 20 meq DAILY GTB Last administered on 02/19/17 09:35; Admin Dose 20 MEQ; Start 02/19/17 at 09:00 Pramipexole (Mirapex) 0.5 mg DAILY GTB ; Start 02/19/17 at 09:00 Docusate Sodium (Colace Liquid Cup) 100 mg BID GTB Last administered on 09:34; Admin Dose 100 MG; Start 02/18/17 at 21:00 Ferrous Sulfate (Feosol Liquid Cup) 300 mg BID GTB Last administered on 09:34; Admin Dose 300 MG; Start 02/18/17 at 21:00 Heparin Sodium (Porcine) (Heparin (5000 Units/0.5 ml)) 5,000 unit BID SC Last administered on 02/19/17 09:59; Admin Dose 5,000 UNIT; Start 02/18/17 at 21:00 Sodium Biphosphate/ Sodium Phosphate (Fleet Enema) 118 ml Q72H PRN MT CONSTIPATION; Start 02/18/17 at 20:30 Atorvastatin Calcium (Lipitor) 5 mg DAILY@21 PO Last administered on 02/18/17 21:52; Admin Dose 5 MG; Start 02/18/17 at 21:00 Citric Acid/ Sodium Citrate 30 ml 30 ml BID GTB Last administered on 02/18/17 23:10; Admin Dose 30 ML; Start 02/18/17 at 23:30 Dextrose (D5W) 1,000 ml @ 40 mls/hr Q24H IV Last administered on 02/19/17 09: 51; Admin Dose 40 MLS/HR; Start 02/19/17 at 09:30 SMITH RUIZ February 19, 2017 11:11
--- NOTE | 2017-02-19 12:34 | CONS ---
DATE OF ADMISSION: 02/18/2017 DATE OF CONSULTATION: GASTROENTEROLOGY CONSULTATION HISTORY OF PRESENT ILLNESS: An 86-year-old female with a history of Alzheimer dementia, vent-depend ent respiratory failure, chronic kidney disease, Parkinson disease, chronic anemia with leakage arou nd the G-tube site. The patient also had a fever at senior care. GI consult was called in for a c hange of G-tube. She had a CAT scan abdomen and pelvis done and G-tube was in position. There was no significant pathology in the abdomen. PAST MEDICAL HISTORY: As described. History of also hypertension and diabetes mellitus. PAST SURGICAL HISTORY: Trach and PEG. FAMILY HISTORY: Nothing contributory. SOCIAL HISTORY: Lives at subacute facility. ALLERGIES: NO KNOWN DRUG ALLERGIES. MEDICATIONS: All reviewed. PHYSICAL EXAMINATION: GENERAL: Well-built, nourished, not in distress. VITAL SIGNS: Stable. HEENT: Unremarkable. NECK: Supple, no thyromegaly, no lymphadenopathy. CARDIOVASCULAR: No murmur, gallop, or click. LUNGS: She is on vent. ABDOMEN: The G-tube was 24-[place], and it was extremely tight bumper which created an early decubit us ulcer, and there was excoriation of the spleen almost extending half a foot in either direction d ue to the gastric content producing contact dermatitis on the abdomen. This is around the G-tube si te. EXTREMITIES: No edema. CENTRAL NERVOUS SYSTEM: Confused and moves all the extremities. Does not communicate. LABORATORY DATA: WBC 7.7, hematocrit 31.8. ASSESSMENT: 1. Sepsis, most probably related to urinary tract infection. 2. Malfunctioning G-tube. 3. Contact dermatitis around the G-tube site. 4. Vent-dependent respiratory failure. 5. Chronic kidney disease. 6. Advanced Parkinson disease. 7. Hypertension. 8. Diabetes mellitus. 9. Coronary artery disease. 10. Anemia. PLAN: At this point, is to remove the G-tube, allow the opening to become smaller in size. Will us e Lotrisone cream for the contact dermatitis. We will place new replacement tube opening is slightl y smaller. Dictated By: SYLWIA ROMANO/RAYSA Conf#: [id number] DID#: [id number] CC: OSMAR MONTAGUE DO;*EndCC*
[2017-02-19] MEDS ORDERED: VANCOMYCIN IV PER PHARMACY XX SCH (14:00)
--- NOTE | 2017-02-19 14:28 | PN ---
DATE: 02/19/2017 INFECTIOUS DISEASE PROGRESS NOTE SUBJECTIVE: The patient is lying comfortably in bed, noncommunicative. No fevers. G-tube was disc ontinued today by Dr. Degroot. LABORATORY DATA: WBC today 7.1, neutrophils 81.3, BUN 42, creatinine 1.53. INDWELLINGS: Trach, Collazo. PHYSICAL EXAMINATION: GENERAL: Chronically ill-appearing, fragile, elderly woman who is in no distress. HEENT: Head atraumatic, normocephalic. Sclerae anicteric. Buccal mucosa dry. NECK: Supple. Tracheostomy present. CHEST: Rise symmetrical. Breath sounds diminished to bases. HEART: S1, S2. ABDOMEN: Obese, soft. The patient has significant drainage from the G-tube site and significant er ythema and excoriation of the skin around it. EXTREMITIES: Without cyanosis. ASSESSMENT: 1. G-tube malfunction, status post discontinued. 2. Abdominal wall cellulitis secondary to chemical burn from gastric contents. 3. Chronic respiratory failure with left lower lobe atelectasis and bilateral pleural effusions. 4. Chronic obstructive pulmonary disease. 5. Encephalopathy, chronic. 6. Anemia. 7. Urinary tract infection as per urinalysis. PLAN: The patient remains stable. The patient remains stable. We will keep her on vancomycin, cef epime until final cultures come back. Continue Lotrimin administration of antifungal cream to G-tub e site. Follow recommendations of consultants. Dictated By: DOROTHY OCRONADO ASSISTANT ELEMENTARY TEACHER for GABINO BOSTON/RAYSA Conf#: [id number] DID#: [id number]
[2017-02-19] MEDS: CLOTRIMAZOLE 1% 30 GM CR TOP SCH ×2 (15:12→22:27)
[2017-02-19] MEDS ORDERED: VANCOMYCIN 500MG/NS (PMX) 100 ML IVPB SCH (16:00)
[2017-02-19] MEDS ORDERED: CEFEPIME 1GM/50 ML (PMX) 50 ML IVPB SCH (16:30)
--- NOTE | 2017-02-19 16:59 | CONS ---
DATE OF ADMISSION: 02/18/2017 DATE OF CONSULTATION: 02/19/2017 TYPE OF CONSULTATION: Cardiology. REFERRING PHYSICIAN: Dr. Rosas. REASON FOR CONSULTATION: Congestive heart failure, history of coronary artery disease. CHIEF COMPLAINT: Fever and G-tube site infection. HISTORY OF PRESENT ILLNESS: Thank you for this referral. History obtained from the extensive revie w of the chart and care home chart, discussion with the staff and physician. The patient is not able to provide any history to me. This is an 86-year-old unfortunate female with history of respir atory failure, status post tracheostomy, on the vent, history of dementia, possible history of coron marianela artery disease and congestive heart failure who was noted in the care home to have fever and also G-tube site infection. Consult was ordered for that reason. Remains intubated on trach and ve nt. Chest x-ray showed congestive heart failure for which I was kindly asked to evaluate and treat. PAST MEDICAL HISTORY: History of hypoxemia, respiratory failure with tracheostomy, chronically on t he vent. History of dysphagia, status post PEG placement, history of dementia, history of coronary artery disease per old records, history of encephalopathy, chronic kidney disease stage IV, anemia, peripheral vascular disease, hypertension and diabetes. PAST SURGICAL HISTORY: Status post PEG placement, status post tracheostomy. FAMILY HISTORY: No reported early coronary artery disease. SOCIAL HISTORY: The patient is in a care home now. Unclear if patient has smoked in the past or not. ALLERGIES: NO REPORTED DRUG ALLERGIES. MEDICATIONS: As per medication reconciliation, personally extensively reviewed. REVIEW OF SYSTEMS: Unable to obtain except for above-mentioned. Patient is nonverbal, does not ans wer any questions. PHYSICAL EXAMINATION: VITAL SIGNS: Temperature 98.3, heart rate of 95, blood pressure 125/58, respiration rate of 20, sat urating 99%. HEENT: Normocephalic, atraumatic. Elderly female. Status post tracheostomy, on the vent. Eyes ar e closed, does not look at them. NECK: Status post tracheostomy, on the vent. CARDIOVASCULAR: Regular rate and rhythm. Grade 1 systolic murmur. PULMONARY: Mild rhonchi at the base. GASTROINTESTINAL: Status post PEG placement. No rebound, no guarding. EXTREMITIES: Positive lower extremity edema. NEUROLOGIC: Does not respond to my verbal stimuli, although following commands. LABORATORY: WBC of 7.1, hemoglobin 8.7, platelets 428. Sodium 140, potassium 3.9, BUN of 42, creat inine 1.53, glucose of 91, lactic acid is 2.8 as of last night. Magnesium is 2.3. Troponin less th an 0.012. Albumin is 2.6. INR 1.26. Chest x-ray was personally reviewed, which shows cardiomegaly , congestive heart failure, bilateral pleural effusion. DIAGNOSTIC DATA: EKG on personal review showed normal sinus rhythm. No evidence of ischemia. ASSESSMENT AND PLAN: 1. Congestive heart failure, mostly secondary to diastolic dysfunction, chronic, stable, most likel y. 2. Hypoxemic respiratory failure, status post tracheostomy, vent dependent. 3. Fever and soft G-tube site infection, slight cellulitis from G-tube malfunction. 4. Chronic kidney disease stage IV. 5. History of dementia. 6. History of coronary artery disease. 7. Anemia. 8. Hypertension. 9. History of Clostridium difficile colitis. 10. Severe encephalopathy. RECOMMENDATIONS: Antibiotic is being managed as per ID's recommendations. Echocardiogram has been ordered. We will be evaluated personally. Gentle diuresis as tolerated will be continued. Vent elias pport respiratory care will be continued as well. GI consultation has been obtained to evaluate and further assess for the management of the G-tube site. Statins will be continued. Beta iggy as tolerated will be continued as well. Continue to monitor on telemetry. I will check the lipid panel tomorrow as well and check a BNP reviewed as well. We will continue to follow along with you. Dictated By: MILAGROS LEE/RAYSA Conf#: [id number] DID#: [id number] CC: OSMAR ROSAS DO;*EndCC*
--- NOTE | 2017-02-19 17:11 | RADRPT ---
Echocardiogram Report Patient Name: MANDEEP GARZA Gender: Female Date: 1930 Study Date: 19-Feb-2017 Barrel Straightener: MARY Location: 530 Ref. Physician: MILAGROS MILLS Quality: Good Procedures: Transthoracic echocardiogram with complete 2D, M-Mode, and doppler examination. Indications: RESP FAILURE. 2D/M Mode Doppler Measurement Value Normal Ranges Measurement Value Normal Ranges LVIDd 2D 4.2 3.5 - 5.6 cm LVOT Peak Jason 0.9 m/sec LVIDs 2D 2.2 2.1 - 4.1 cm LVOT Peak PG 3.0 mmHg LVPWd 2D 0.9 0.6 - 1.1 cm MV E Peak Jasno 1.1 m/sec IVSd 2D 1.0 0.6 - 1.1 cm MV A Peak Jason 1.0 m/sec AoR Diam 2D 2.7 2.0 - 3.7 cm MV E/A 1.1 EDV 2D 78.7 cm3 MV Decel Time 193 msec ESV 2D 11.2 cm3 MV Decel Hernando 6 LA Dimen 2D 3.9 2.3 - 4.0 cm MV E/A 1.1 TR Peak Jason 3.2 m/sec TR Peak PG 40.2 mmHg RVSP 43.0 mmHg Findings Left Ventricle: Normal left ventricular systolic function. Normal left ventricular cavity size. Mild concentric left ventricular hypertrophy. Ejection fraction is visually estimated at 65 %. Tissue Doppler/Mitral Doppler indices are consistent with impaired relaxation (Stage I diastolic dysfunction). Right Ventricle: Normal right ventricular size. Normal right ventricular systolic function. Left Atrium: The left atrium is normal in size. Right Atrium: The right atrium is normal in size. Mitral Valve: Normal appearance of the mitral valve. Mild mitral annular calcification. Trace mitral regurgitation. Aortic Valve: Normal appearance of the aortic valve. No significant aortic stenosis or insufficiency. Tricuspid Valve: Tricuspid valve not well visualized. Estimated peak PA systolic pressure 50 mmHg. There is mild to moderate tricuspid regurgitation. Pulmonic Valve: Pulmonic valve not well visualized. Pericardium: Normal pericardium with no significant pericardial effusion. Aorta: Normal aortic root. IVC: Inferior vena cava without respiratory collapse, however, patient on ventilator. Conclusions 1.Normal left ventricular systolic function. Normal left ventricular cavity size. Mild concentric left ventricular hypertrophy. Ejection fraction is visually estimated at 65 %. Tissue Doppler/Mitral Doppler indices are consistent with impaired relaxation (Stage I diastolic dysfunction). 2.Normal appearance of the mitral valve. Mild mitral annular calcification. Trace mitral regurgitation. 3.Normal appearance of the aortic valve. No significant aortic stenosis or insufficiency. 4.Tricuspid valve not well visualized. Estimated peak PA systolic pressure 50 mmHg. There is mild to moderate tricuspid regurgitation. Electronically Signed By: Milagros Mills 19-Feb-2017 17:11:02 -0700 Patient Name: MANDEEP GARZA Study Date: 19-Feb-2017 [id number]
[2017-02-19] MEDS: EPOETIN 10000 UNITS/1 ML INJ (ESRD) SC SCH (17:12)
[2017-02-19] MEDS: LACTOBACILLUS RHAMNOSUS CAP GTB SCH (21:00)
[2017-02-19] MEDS: ATORVASTATIN 10 MG TAB PO SCH (21:00)
[2017-02-19] MEDS: DONEPEZIL 10 MG TAB GTB SCH (21:00)
[2017-02-20] VITALS (25 sets, daily range): BP systolic 102–131; BP diastolic 50–63; PULSE 67–74; RESP 13–24
[2017-02-20] MEDS: MAGNESIUM HYDROXIDE 30ML CUP GTB SCH ×6 (00:19→23:00)
[2017-02-20] MEDS ORDERED: NYSTATIN 30 GM POWDER BTL TOP PRN (00:30)
[2017-02-20] MEDS ORDERED: NYSTATIN 30 GM POWDER BTL TOP ONE (00:30)
[2017-02-20] MEDS: FUROSEMIDE 40 MG TAB GTB SCH (06:00)
[2017-02-20] MEDS: METOPROLOL 25 MG TAB GTB SCH ×2 (07:00→19:00)
[2017-02-20 07:32] LABS: CHOL/HDL RATIO 2.1 RATIO
--- NOTE | 2017-02-20 08:55 | CONS ---
Date/Time of Note Date/Time of Note DATE: 02/20/17 TIME: 08:54 Consult Date/Type/Reason Admit Date/Time February 18, 2017 at 18:41 Initial Consult Date 02/19/17 Type of Consultation: nephrology Subjective pt. seenand examined. gtube out, GI eval appreciated pt. comfortable on vent. Good uop. d/w rn at bedside. PE: GENERAL: Well-built, nourished, not in distress. VITAL SIGNS: Stable. HEENT: Unremarkable. NECK: Supple, no thyromegaly, no lymphadenopathy. CARDIOVASCULAR: No murmur, gallop, or click. LUNGS: She is on vent. ABDOMEN: The G-tube was 24-[place]i, and it was extremely tight bumper which created an early decubitus ulcer, and there was excoriation of the spleen almost extending half a foot in either direction due to the gastric content producing contact dermatitis on the abdomen. This is around the G-tube site. EXTREMITIES: No edema. CENTRAL NERVOUS SYSTEM: Confused and moves all the extremities. Does not communicate. Objective Vital Signs Date Time Temp Pulse Resp B/P Pulse Ox O2 Delivery O2 Flow Rate FiO2 02/20/17 08:30 70 02/20/17 07:44 16 100 40 02/20/17 07:07 98.4 131/63 02/18/17 20:22 Mechanical Ventilator Intake and Output 02/19/17 02/19/17 02/20/17 15:00 23:00 07:00 Intake Total 450 ml 480 ml Balance 450 ml 480 ml Results/Medications Result Diagram: 02/19/17 1000 02/19/17 1000 Results 24 hrs Laboratory Tests Test 02/19/17 10:00 02/20/17 06:20 White Blood Count 7.1 Red Blood Count 2.87 L Hemoglobin 8.7 L Hematocrit 29.9 L Mean Corpuscular Volume 104.2 H Mean Corpuscular Hemoglobin 30.3 Mean Corpuscular Hemoglobin Concent 29.1 L Red Cell Distribution Width 16.9 H Platelet Count 428 H Mean Platelet Volume 9.4 Neutrophils % 81.3 H Lymphocytes % 6.8 L Monocytes % 3.7 Eosinophils % 6.9 Basophils % 0.3 Nucleated Red Blood Cells % 0.0 Neutrophils # 5.8 Lymphocytes # 0.5 L Monocytes # 0.3 Eosinophils # 0.5 Basophils # 0.0 Nucleated Red Blood Cells # 0.0 Sodium Level 140 Potassium Level 3.9 Chloride Level 104 Carbon Dioxide Level 33 H Anion Gap 7 L Blood Urea Nitrogen 42 H Creatinine 1.53 H Glucose Level 91 Calcium Level 8.4 Phosphorus Level 4.2 Magnesium Level 2.3 B-Type Natriuretic Peptide 60455 H Triglycerides Level 133 Cholesterol Level 52 L LDL Cholesterol, Calculated 1 HDL Cholesterol 24 L Cholesterol/HDL Ratio 2.1 Medications Current Medications Acetaminophen (Tylenol Tab) 650 mg Q4H PRN GTB MILD PAIN LEVEL 1-3; Start at 19:00 Ascorbic Acid (Vitamin C) 500 mg BID GTB Last administered on 02/19/17 09:35; Admin Dose 500 MG; Start 02/18/17 at 21:00 Bisacodyl (Dulcolax Supp) 10 mg Q48H MS ; Start 02/18/17 at 19:00 Carbidopa/Levodopa (Sinemet (25/ 100)) 1 tab TID GTB Last administered on 09:35; Admin Dose 1 TAB; Start 02/18/17 at 21:00 Chlorhexidine Gluconate (Peridex) 15 ml BID MM Last administered on 02/19/17 22 :27; Admin Dose 15 ML; Start 02/18/17 at 21:00 Clopidogrel Bisulfate (plaVIX) 75 mg DAILY GTB Last administered on 02/19/17 09 :34; Admin Dose 75 MG; Start 02/19/17 at 09:00 Donepezil HCl (Aricept) 10 mg QHS GTB Last administered on 02/18/17 21:52; Admin Dose 10 MG; Start 02/18/17 at 21:00 Epoetin Vasyl (Epogen (Esrd)) 10,000 units DAILY@17 SC Last administered on 17:12; Admin Dose 10,000 UNITS; Start 02/19/17 at 17:00 Folic Acid (Folic Acid) 1 mg DAILY GTB Last administered on 02/19/17 09:34; Admin Dose 1 MG; Start 02/19/17 at 09:00 Furosemide (Lasix) 40 mg DAILY@06 GTB ; Start 02/19/17 at 06:00 Lactobacillus Acidophilus/ Rhamnosus (Culturelle) 1 cap QHS GTB Last administered on 02/18/17 23:07; Admin Dose 1 CAP; Start 02/18/17 at 21:00 Magnesium Hydroxide (Milk Of Mag) 30 ml Q4H GTB Last administered on 02/19/17 09:33; Admin Dose 30 ML; Start 02/18/17 at 19:00 Memantine (Namenda) 5 mg DAILY GTB Last administered on 02/19/17 09:34; Admin Dose 5 MG; Start 02/19/17 at 09:00 Metoprolol Tartrate (Lopressor) 25 mg Q12H GTB Last administered on 02/19/17 09 :33; Admin Dose 25 MG; Start 02/18/17 at 19:00 Potassium Chloride (Potassium Chloride Pwd/Soln) 20 meq DAILY GTB Last administered on 02/19/17 09:35; Admin Dose 20 MEQ; Start 02/19/17 at 09:00 Pramipexole (Mirapex) 0.5 mg DAILY GTB ; Start 02/19/17 at 09:00 Docusate Sodium (Colace Liquid Cup) 100 mg BID GTB Last administered on 09:34; Admin Dose 100 MG; Start 02/18/17 at 21:00 Ferrous Sulfate (Feosol Liquid Cup) 300 mg BID GTB Last administered on 09:34; Admin Dose 300 MG; Start 02/18/17 at 21:00 Heparin Sodium (Porcine) (Heparin (5000 Units/0.5 ml)) 5,000 unit BID SC Last administered on 02/19/17 22:31; Admin Dose 5,000 UNIT; Start 02/18/17 at 21:00 Sodium Biphosphate/ Sodium Phosphate (Fleet Enema) 118 ml Q72H PRN [place] CONSTIPATION; Start 02/18/17 at 20:30 Atorvastatin Calcium 5 mg 5 mg DAILY@21 PO Last administered on 02/18/17 21:52 ; Admin Dose 5 MG; Start 02/18/17 at 21:00 Dextrose 1,000 ml @ 40 mls/hr Q24H IV Last administered on 02/19/17 09:51; Admin Dose 40 MLS/HR; Start 02/19/17 at 09:30 Cefepime HCl (Maxipime 1gm/50 ml (Pmx)) 50 ml @ 100 mls/hr Q24H IVPB Last administered on 02/19/17 15:56; Admin Dose 100 MLS/HR; Start 02/19/17 at 16:30 Clotrimazole 1 applic 1 applic BID TOP Last administered on 02/19/17 22:27; Admin Dose 1 APPLIC; Start 02/19/17 at 14:00 Vancomycin HCl (Vancocin) 100 ml @ 100 mls/hr Q24H IVPB Last administered on 15:56; Admin Dose 100 MLS/HR; Start 02/19/17 at 16:00 Citric Acid/ Sodium Citrate (Bicitra) 30 ml BID GTB ; Start 02/19/17 at 22:30 Nystatin (Nystatin Powder) 1 applic BID TOP ; Start 02/20/17 at 09:00 Nystatin (Nystatin Powder) 1 applic BID PRN TOP NOTE; Start 02/20/17 at 00:30 Assessment/Plan Chief Complaint/Hosp Course 1. Sepsis -urinary tract infection. The patient has got a dirty UA, noted fever. We will continue current antibiotic regimen. We will follow up blood cultures, urine cultures. We will follow up with infectious disease for further recommendations. 2. G-tube malfunction. Gtube out, start ivf 3. Abdominal wall cellulitis, possibly fungal or bacterial. We will continue the patient on current antibiotic regimen. Follow up with infectious disease. 4. Ventilator-dependent respiratory failure. Vent settings reviewed. Follow up with pulmonary. Continue current vent settings. 5. Chronic kidney disease stage IV. The patient's renal function is at baseline. We will continue supportive care, renally dose all meds, avoid nephrotoxins. 6. Acute congestive heart failure exacerbation, systolic and diastolic. The patient is clinically decompensated, chest x-ray shows congestion. We will continue current diuretic regimen. We will place a cardiology consult for evaluation. 7. Advanced Parkinson's dementia with encephalopathy. We will continue current medical management. 8 Coronary artery disease. Continue current treatment plan. 9. Hypertension. Continue current blood pressure regimen. 10. Anemia of chronic disease. Continue to monitor hemoglobin and hematocrit levels. Continue Epogen. check stools. 11. Mineral bone disorder. Monitor calcium and phosphorus levels. 12. Wounds. We will place a wound care consult for evaluation. 13. Gastrointestinal and deep venous thrombosis prophylaxis. Continue proton pump inhibitor and heparin. Problems: JOSE ALBERTO BHAT MD February 20, 2017 08:55
[2017-02-20] MEDS: FERROUS SULFATE 60 MG/ML 5ML CUP GTB SCH ×2 (09:00→21:00)
[2017-02-20] MEDS: CITRIC ACID/SODIUM CITRATE 15 ML CUP GTB SCH ×2 (09:00→21:00)
[2017-02-20] MEDS: POTASSIUM CHLORIDE 20 MEQ POWDER FOR ORAL SOLN GTB SCH (09:00)
[2017-02-20] MEDS: CARBIDOPA/LEVODOPA (25/100) TAB GTB SCH ×3 (09:00→21:00)
[2017-02-20] MEDS: DOCUSATE SODIUM 10 MG/ML (10ML CUP) GTB SCH ×2 (09:00→21:00)
[2017-02-20] MEDS: ASCORBIC ACID 500 MG TAB GTB SCH ×2 (09:00→21:00)
[2017-02-20] MEDS: FOLIC ACID 1 MG TAB GTB SCH (09:00)
[2017-02-20] MEDS: PRAMIPEXOLE 0.25 MG TAB GTB SCH (09:00)
[2017-02-20] MEDS: MEMANTINE 5 MG TAB GTB SCH (09:00)
[2017-02-20] MEDS: CLOPIDOGREL 75 MG TAB GTB SCH (09:00)
[2017-02-20] MEDS: NYSTATIN 30 GM POWDER BTL TOP SCH ×2 (09:09→22:30)
[2017-02-20] MEDS: CLOTRIMAZOLE 1% 30 GM CR TOP SCH ×2 (09:09→22:13)
[2017-02-20] MEDS: HEPARIN 5,000 UNIT/0.5 ML VIAL SC SCH ×2 (09:17→22:19)
[2017-02-20] MEDS: CHLORHEXIDINE GLUCONATE 15 ML UD CUP MM SCH ×2 (09:21→22:13)
[2017-02-20] MEDS: DEXTROSE 5% 1,000 ML IV SCH (09:30)
[2017-02-20] MEDS: D5W-0.45 NACL + KCL 10 MEQ 1,000 ML IV SCH (10:42)
--- NOTE | 2017-02-20 11:00 | CONS ---
Date/Time of Note Date/Time of Note DATE: 02/20/17 TIME: 10:58 Assessment/Plan Assessment/Plan Additional Assessment/Plan Ventilator settings; AC of 10, tidal volume 450, PEEP of 5, 40% FiO2. Assessment recommendations; 1. Patient admitted with UTI currently on appropriate antibiotic regimen. 2. Chronic respiratory failure. 3. Advanced dementia. 4. Parkinson's disease. 5. Hypertension. 6. Chronic renal insufficiency. Continue current supportive care. Consultation Date/Type/Reason Admit Date/Time February 18, 2017 at 18:41 Initial Consult Date 02/19/17 Type of Consultation: Pulmonary 24 HR Interval Summary Free Text/Dictation Patient condition remains stable. Remains essentially unresponsive. Has remained hemodynamically stable. Remains ventilator dependent. General exam; elderly woman, on ventilator via tracheostomy currently in no distress, unresponsive. Exam/Review of Systems Vital Signs Vitals Vital Signs Date Time Temp Pulse Resp B/P Pulse Ox O2 Delivery O2 Flow Rate FiO2 02/20/17 09:13 77 19 100 40 02/20/17 07:07 98.4 131/63 02/18/17 20:22 Mechanical Ventilator Intake and Output 02/19/17 02/19/17 02/20/17 15:00 23:00 07:00 Intake Total 450 ml 480 ml Balance 450 ml 480 ml Exam HEENT examined; supple neck, no JVD. No lymphadenopathy. Midline trachea. No thyromegaly. Tracheostomy in place with clean insertion site. Pupils are small bilaterally. No neck masses. Chest examination; clear to auscultation. S1-S2 audible, no murmurs. Abdomen examination; soft, G-tube in place. No organomegaly. Extremity exam is; trace peripheral edema. CAFE HELPER examination; patient remains unresponsive. Results Result Diagram: 02/19/17 1000 02/19/17 1000 Results 24 hrs Laboratory Tests Test 02/20/17 06:20 B-Type Natriuretic Peptide 00056 H Triglycerides Level 133 Cholesterol Level 52 L LDL Cholesterol, Calculated 1 HDL Cholesterol 24 L Cholesterol/HDL Ratio 2.1 Medications Medications Current Medications Acetaminophen (Tylenol Tab) 650 mg Q4H PRN GTB MILD PAIN LEVEL 1-3; Start at 19:00 Ascorbic Acid (Vitamin C) 500 mg BID GTB Last administered on 02/19/17t 09:35; Admin Dose 500 MG; Start 02/18/17 at 21:00 Bisacodyl (Dulcolax Supp) 10 mg Q48H [place] ; Start 02/18/17 at 19:00 Carbidopa/Levodopa (Sinemet (25/ 100)) 1 tab TID GTB Last administered on 09:35; Admin Dose 1 TAB; Start 02/18/17 at 21:00 Chlorhexidine Gluconate (Peridex) 15 ml BID MM Last administered on 02/20/17 09 :21; Admin Dose 15 ML; Start 02/18/17 at 21:00 Clopidogrel Bisulfate (plaVIX) 75 mg DAILY GTB Last administered on 02/19/17 09 :34; Admin Dose 75 MG; Start 02/19/17 at 09:00 Donepezil HCl (Aricept) 10 mg QHS GTB Last administered on 02/18/17 21:52; Admin Dose 10 MG; Start 02/18/17 at 21:00 Epoetin Vasyl (Epogen (Esrd)) 10,000 units DAILY@17 SC Last administered on 17:12; Admin Dose 10,000 UNITS; Start 02/19/17 at 17:00 Folic Acid (Folic Acid) 1 mg DAILY GTB Last administered on 02/19/17 09:34; Admin Dose 1 MG; Start 02/19/17 at 09:00 Furosemide (Lasix) 40 mg DAILY@06 GTB ; Start 02/19/17 at 06:00 Lactobacillus Acidophilus/ Rhamnosus (Culturelle) 1 cap QHS GTB Last administered on 02/18/17 23:07; Admin Dose 1 CAP; Start 02/18/17 at 21:00 Magnesium Hydroxide (Milk Of Mag) 30 ml Q4H GTB Last administered on 02/19/17 09:33; Admin Dose 30 ML; Start 02/18/17 at 19:00 Memantine (Namenda) 5 mg DAILY GTB Last administered on 02/19/17 09:34; Admin Dose 5 MG; Start 02/19/17 at 09:00 Metoprolol Tartrate (Lopressor) 25 mg Q12H GTB Last administered on 02/19/17 09 :33; Admin Dose 25 MG; Start 02/18/17 at 19:00 Potassium Chloride (Potassium Chloride Pwd/Soln) 20 meq DAILY GTB Last administered on 02/19/17 09:35; Admin Dose 20 MEQ; Start 02/19/17 at 09:00 Pramipexole (Mirapex) 0.5 mg DAILY GTB ; Start 02/19/17 at 09:00 Docusate Sodium (Colace Liquid Cup) 100 mg BID GTB Last administered on 09:34; Admin Dose 100 MG; Start 02/18/17 at 21:00 Ferrous Sulfate (Feosol Liquid Cup) 300 mg BID GTB Last administered on 09:34; Admin Dose 300 MG; Start 02/18/17 at 21:00 Heparin Sodium (Porcine) (Heparin (5000 Units/0.5 ml)) 5,000 unit BID SC Last administered on 02/20/17 09:17; Admin Dose 5,000 UNIT; Start 02/18/17 at 21:00 Sodium Biphosphate/ Sodium Phosphate (Fleet Enema) 118 ml Q72H PRN [place] CONSTIPATION; Start 02/18/17 at 20:30 Atorvastatin Calcium 5 mg 5 mg DAILY@21 PO Last administered on 02/18/17 21:52 ; Admin Dose 5 MG; Start 02/18/17 at 21:00 Dextrose 1,000 ml @ 40 mls/hr Q24H IV Last administered on 02/19/17 09:51; Admin Dose 40 MLS/HR; Start 02/19/17 at 09:30 Cefepime HCl (Maxipime 1gm/50 ml (Pmx)) 50 ml @ 100 mls/hr Q24H IVPB Last administered on 02/19/17 15:56; Admin Dose 100 MLS/HR; Start 02/19/17 at 16:30 Clotrimazole 1 applic 1 applic BID TOP Last administered on 02/20/17 09:09; Admin Dose 1 APPLIC; Start 02/19/17 at 14:00 Vancomycin HCl (Vancocin) 100 ml @ 100 mls/hr Q24H IVPB Last administered on 15:56; Admin Dose 100 MLS/HR; Start 02/19/17 at 16:00 Citric Acid/ Sodium Citrate (Bicitra) 30 ml BID GTB ; Start 02/19/17 at 22:30 Nystatin (Nystatin Powder) 1 applic BID TOP Last administered on 02/20/17 09:09 ; Admin Dose 1 APPLIC; Start 02/20/17 at 09:00 Nystatin 1 applic 1 applic BID PRN TOP NOTE; Start 02/20/17 at 00:30 Potassium Chloride/Dextrose/ Sod Cl (D5-1/2ns + KCl 10 Meq) 1,000 ml @ 50 mls/ hr Q20H IV Last administered on 02/20/17 10:42; Admin Dose 50 MLS/HR; Start 02/20/17 at 09:00 SMITH RUIZ February 20, 2017 11:00
--- NOTE | 2017-02-20 13:16 | PN ---
DATE: 02/20/2017 INFECTIOUS DISEASE PROGRESS NOTE SUBJECTIVE: No events overnight. The patient is lying comfortably in bed. No fevers. No labs this morning. MICROBIOLOGY: All cultures have been negative. Stool for C diff came back negative. INDWELLINGS: Trach, Collazo. PHYSICAL EXAMINATION: GENERAL: Fragile, elderly woman in no distress. HEENT: Head atraumatic, normocephalic. Sclerae anicteric. Buccal mucosa dry. NECK: Supple, tracheostomy present. CHEST: Rise symmetrical. Breath sounds diminished to bases. HEART: S1, S2. ABDOMEN: Soft, bowel sounds present. EXTREMITIES: Without cyanosis. ASSESSMENT: 1. Systemic inflammatory response syndrome with low-grade fevers on admission. 2. Urinary tract infection as per urinalysis, cultures negative. 3. G-tube site cellulitis from gastric contents burn. 4. Chronic respiratory failure. 5. Chronic obstructive pulmonary disease. 6. Anemia. PLAN: The patient remains stable. We are going to discontinue antibiotics and observe her. Continue local skin care around G-tube site. Follow gastroenterology recommendations. Pending new PEG. Dictated By: DOROTHY CORONADO DEVELOPMENT AND HOUSING DIRECTOR for [facility] BOSTON/NTS Conf#: [id number] DID#: [id number] [place]
[2017-02-20] MEDS: EPOETIN 10000 UNITS/1 ML INJ (ESRD) SC SCH (17:42)
[2017-02-20] MEDS: BISACODYL 10 MG SUPP PR SCH (19:00)
[2017-02-20] MEDS: DONEPEZIL 10 MG TAB GTB SCH (20:07)
--- NOTE | 2017-02-20 20:15 | CONS ---
Date/Time of Note Date/Time of Note DATE: 02/20/17 TIME: 20:14 Assessment/Plan Assessment/Plan Additional Assessment/Plan ASSESSMENT: 1. Sepsis, most probably related to urinary tract infection. 2. Malfunctioning G-tube. 3. Contact dermatitis around the G-tube site. 4. Vent-dependent respiratory failure. 5. Chronic kidney disease. 6. Advanced Parkinson disease. 7. Hypertension. 8. Diabetes mellitus. 9. Coronary artery disease. 10. Anemia. PLAN: At this point, is to remove the G-tube, allow the opening to become smaller in size. Will use Lotrisone cream for the contact dermatitis. We will place new replacement tube opening is slightly smaller. Consultation Date/Type/Reason Admit Date/Time February 18, 2017 at 18:41 Initial Consult Date 02/19/17 Type of Consultation: Pulmonary 24 HR Interval Summary Free Text/Dictation Patient is nonverbal Constitutional: no complaints Exam/Review of Systems Vital Signs Vitals Vital Signs Date Time Temp Pulse Resp B/P Pulse Ox O2 Delivery O2 Flow Rate FiO2 02/20/17 20:13 98.6 68 20 119/60 100 02/20/17 17:29 40 02/18/17 20:22 Mechanical Ventilator Intake and Output 02/19/17 02/19/17 02/20/17 15:00 23:00 07:00 Intake Total 450 ml 480 ml Balance 450 ml 480 ml Exam Constitutional: alert, oriented, well developed Psych: nl mood/affect, no complaints Head: atraumatic, normocephalic Eyes: EOMI, PERRL, nl conjunctiva, nl lids, nl sclera ENMT: nl external ears & nose, nl lips & teeth, nl nasal mucosa & septum Neck: non-tender, supple Respiratory: clear to auscultation, normal air movement Cardiovascular: nl pulses, regular rate and rhythm Gastrointestinal: nl liver, spleen, non-tender, soft Musculoskeletal: nl extremities to inspection, nl gait and stance Extremities: normal pulses Neurological: NET ARCHITECT II-XII intact, nl mental status, nl speech, nl strength Skin: nl turgor, No rash or lesions Lymph: nl lymph nodes Results Result Diagram: 02/19/17 1000 02/19/17 1000 Results 24 hrs Laboratory Tests Test 02/20/17 06:20 B-Type Natriuretic Peptide 84201 H Triglycerides Level 133 Cholesterol Level 52 L LDL Cholesterol, Calculated 1 HDL Cholesterol 24 L Cholesterol/HDL Ratio 2.1 Medications Medications Current Medications Acetaminophen (Tylenol Tab) 650 mg Q4H PRN GTB MILD PAIN LEVEL 1-3; Start at 19:00 Ascorbic Acid (Vitamin C) 500 mg BID GTB Last administered on 02/19/17 09:35; Admin Dose 500 MG; Start 02/18/17 at 21:00 Bisacodyl (Dulcolax Supp) 10 mg Q48H [place] ; Start 02/18/17 at 19:00 Carbidopa/Levodopa (Sinemet (25/ 100)) 1 tab TID GTB Last administered on 09:35; Admin Dose 1 TAB; Start 02/18/17 at 21:00 Chlorhexidine Gluconate (Peridex) 15 ml BID MM Last administered on 02/20/17 09 :21; Admin Dose 15 ML; Start 02/18/17 at 21:00 Clopidogrel Bisulfate (plaVIX) 75 mg DAILY GTB Last administered on 02/19/17 09 :34; Admin Dose 75 MG; Start 02/19/17 at 09:00 Donepezil HCl (Aricept) 10 mg QHS GTB Last administered on 02/18/17 21:52; Admin Dose 10 MG; Start 02/18/17 at 21:00 Epoetin Vasyl (Epogen (Esrd)) 10,000 units DAILY@17 SC Last administered on 17:42; Admin Dose 10,000 UNITS; Start 02/19/17 at 17:00 Folic Acid (Folic Acid) 1 mg DAILY GTB Last administered on 02/19/17 09:34; Admin Dose 1 MG; Start 02/19/17 at 09:00 Furosemide (Lasix) 40 mg DAILY@06 GTB ; Start 02/19/17 at 06:00 Lactobacillus Acidophilus/ Rhamnosus (Culturelle) 1 cap QHS GTB Last administered on 02/18/17 23:07; Admin Dose 1 CAP; Start 02/18/17 at 21:00 Magnesium Hydroxide (Milk Of Mag) 30 ml Q4H GTB Last administered on 02/19/17 09:33; Admin Dose 30 ML; Start 02/18/17 at 19:00 Memantine (Namenda) 5 mg DAILY GTB Last administered on 02/19/17 09:34; Admin Dose 5 MG; Start 02/19/17 at 09:00 Metoprolol Tartrate (Lopressor) 25 mg Q12H GTB Last administered on 02/19/17 09 :33; Admin Dose 25 MG; Start 02/18/17 at 19:00 Potassium Chloride (Potassium Chloride Pwd/Soln) 20 meq DAILY GTB Last administered on 02/19/17 09:35; Admin Dose 20 MEQ; Start 02/19/17 at 09:00 Pramipexole (Mirapex) 0.5 mg DAILY GTB ; Start 02/19/17 at 09:00 Docusate Sodium (Colace Liquid Cup) 100 mg BID GTB Last administered on 09:34; Admin Dose 100 MG; Start 02/18/17 at 21:00 Ferrous Sulfate (Feosol Liquid Cup) 300 mg BID GTB Last administered on 09:34; Admin Dose 300 MG; Start 02/18/17 at 21:00 Heparin Sodium (Porcine) (Heparin (5000 Units/0.5 ml)) 5,000 unit BID SC Last administered on 02/20/17 09:17; Admin Dose 5,000 UNIT; Start 02/18/17 at 21:00 Sodium Biphosphate/ Sodium Phosphate (Fleet Enema) 118 ml Q72H PRN [place] CONSTIPATION; Start 02/18/17 at 20:30 Atorvastatin Calcium 5 mg 5 mg DAILY@21 PO Last administered on 02/18/17 21:52 ; Admin Dose 5 MG; Start 02/18/17 at 21:00 Dextrose (D5W) 1,000 ml @ 40 mls/hr Q24H IV Last administered on 02/19/17 09: 51; Admin Dose 40 MLS/HR; Start 02/19/17 at 09:30 Clotrimazole (Lotrimin Cr) 1 applic BID TOP Last administered on 02/20/17 09:09 ; Admin Dose 1 APPLIC; Start 02/19/17 at 14:00 Citric Acid/ Sodium Citrate (Bicitra) 30 ml BID GTB ; Start 02/19/17 at 22:30 Nystatin (Nystatin Powder) 1 applic BID TOP Last administered on 02/20/17 09:09 ; Admin Dose 1 APPLIC; Start 02/20/17 at 09:00 Nystatin 1 applic 1 applic BID PRN TOP NOTE; Start 02/20/17 at 00:30 Potassium Chloride/Dextrose/ Sod Cl (D5-1/2ns + KCl 10 Meq) 1,000 ml @ 50 mls/ hr Q20H IV Last administered on 02/20/17t 10:42; Admin Dose 50 MLS/HR; Start 02/20/17 at 09:00 SYLWIA SY MD February 20, 2017 20:15
[2017-02-20] MEDS: ATORVASTATIN 10 MG TAB PO SCH (21:00)
[2017-02-20] MEDS: LACTOBACILLUS RHAMNOSUS CAP GTB SCH (21:00)
[2017-02-21] VITALS (27 sets, daily range): BP systolic 115–143; BP diastolic 52–62; PULSE 64–124; RESP 14–20
[2017-02-21] MEDS: MAGNESIUM HYDROXIDE 30ML CUP GTB SCH ×6 (03:00→23:00)
[2017-02-21] MEDS: D5W-0.45 NACL + KCL 10 MEQ 1,000 ML IV SCH ×2 (05:00→06:13)
[2017-02-21] MEDS: FUROSEMIDE 40 MG TAB GTB SCH (06:00)
[2017-02-21 07:00] LABS: ADD SCAN DIFF NO
[2017-02-21] MEDS: METOPROLOL 25 MG TAB GTB SCH ×2 (07:00→19:00)
[2017-02-21 07:09] LABS: ABNORMAL IP MESSAGE 1; BASOPHILS % 0.3 % (0.0-2.0); EOSINOPHILS # 0.5 10^3/ul (0.0-0.5); EOSINOPHILS % 7.9 % (0.0-7.0); HEMATOCRIT 32.2 % (37.0-47.0); HEMOGLOBIN 9.3 g/dl (12.0-16.0); LYMPHOCYTES # 0.7 10^3/ul (0.8-2.9); LYMPHOCYTES % 11.7 % (15.0-51.0); MEAN CORPUSCULAR HEMOGLOBIN 29.9 pg (29.0-33.0); MEAN CORPUSCULAR HGB CONC 28.9 g/dl (32.0-37.0); MEAN CORPUSCULAR VOLUME 103.5 fl (82.0-101.0); MEAN PLATELET VOLUME 9.7 fl (7.4-10.4); MONOCYTE # 0.3 10^3/ul (0.3-0.9); MONOCYTES % 4.7 % (0.0-11.0); NEUTROPHIL # 4.6 10^3/ul (1.6-7.5); NEUTROPHILS % 74.4 % (39.0-77.0); PLATELET COUNT 427 10^3/UL (140-415); RED BLOOD COUNT 3.11 10^6/ul (4.20-5.40); RED CELL DISTRIBUTION WIDTH 17.2 % (11.5-14.5); WHITE BLOOD COUNT 6.2 10^3/ul (4.8-10.8)
[2017-02-21 07:33] LABS: CALCIUM 8.4 mg/dl (8.4-10.2); CREATININE 1.56 mg/dl (0.44-1.00); MAGNESIUM 2.4 mg/dl (1.7-2.5); PHOSPHORUS 4.3 mg/dl (2.5-4.9)
[2017-02-21] MEDS: FOLIC ACID 1 MG TAB GTB SCH (09:00)
[2017-02-21] MEDS: PRAMIPEXOLE 0.25 MG TAB GTB SCH (09:00)
[2017-02-21] MEDS: CARBIDOPA/LEVODOPA (25/100) TAB GTB SCH ×3 (09:00→21:00)
[2017-02-21] MEDS: MEMANTINE 5 MG TAB GTB SCH (09:00)
[2017-02-21] MEDS: DOCUSATE SODIUM 10 MG/ML (10ML CUP) GTB SCH ×2 (09:00→21:00)
[2017-02-21] MEDS: POTASSIUM CHLORIDE 20 MEQ POWDER FOR ORAL SOLN GTB SCH (09:00)
[2017-02-21] MEDS: CLOPIDOGREL 75 MG TAB GTB SCH (09:00)
[2017-02-21] MEDS: CITRIC ACID/SODIUM CITRATE 15 ML CUP GTB SCH ×2 (09:00→21:00)
[2017-02-21] MEDS: FERROUS SULFATE 60 MG/ML 5ML CUP GTB SCH ×2 (09:00→21:00)
[2017-02-21] MEDS: ASCORBIC ACID 500 MG TAB GTB SCH ×2 (09:00→21:00)
--- NOTE | 2017-02-21 09:35 | PN ---
DATE: 02/21/2017 SUBJECTIVE: The patient had the G-tube removed by Dr. Degroot, awaiting currently for a new G-tube p lacement. No other events noted. No hemoptysis, hematemesis or hematochezia. OBJECTIVE: VITAL SIGNS: Blood pressure 126/60, respirations 20, pulse 71, temperature 98.2. HEENT: Head is normocephalic. NECK: Supple. HEART: Regular rate. LUNGS: Showed diminished breath sounds at the base. ABDOMEN: Soft, nontender to palpation. Positive ostomy site noted. DERMATOLOGIC: No rashes. MUSCULOSKELETAL: Have no joint effusion. EXTREMITIES: Negative for clubbing or cyanosis. No edema. Positive contractures. MEDICATIONS: Have been reviewed. LABORATORY DATA: Shows sodium 141, potassium 4.0, chloride 105, BUN 35, creatinine 1.56. White coun t 6.2, hemoglobin 9.3, hematocrit 32.2, platelet count is 427. ASSESSMENT AND PLAN: 1. Sepsis secondary to a urinary tract infection. The patient is currently on an antibiotic regime n. Will continue. Cultures have been negative to date. 2. Dysphagia, with G-tube malfunction. The patient is status post G-tube removal, awaiting for GI to place a new G-tube placement. Will keep the patient n.p.o. 3. Abdominal cellulitis. Continue the current antifungal therapy. 4. Ventilatory-dependent respiratory failure. Vent settings have been reviewed. Continue to monit or. Follow up with pulmonary. 5. Chronic kidney disease stage IV. The patient's renal function is currently at baseline. Contin ue the current supportive care. 6. Acute congestive heart failure exacerbation, systolic and diastolic. The patient is clinically decompensated. Continue the current antibiotic regimen, minimize IV fluids. 7. Advanced Parkinson's disease with encephalopathy. Continue medical management. 8. Coronary artery disease. Continue medical management. 9. Hypertension. Continue the current blood pressure regimen. 10. Anemia. Continue to monitor hemoglobin and hematocrit levels. Continue Epogen. 11. Mineral bone disorder. Continue to monitor calcium and phosphorus levels. 12. Wounds. Continue wound care. 13. Gastrointestinal and deep venous thrombosis prophylaxis. Continue proton pump inhibitor and hep shruthi. Dictated By: OSMAR HERNANDEZ/NTS Conf#: [id number] DID#: [id number]
[2017-02-21] MEDS: CLOTRIMAZOLE 1% 30 GM CR TOP SCH ×2 (09:57→21:15)
[2017-02-21] MEDS: CHLORHEXIDINE GLUCONATE 15 ML UD CUP MM SCH ×2 (09:57→21:14)
[2017-02-21] MEDS: NYSTATIN 30 GM POWDER BTL TOP SCH ×2 (09:57→21:16)
[2017-02-21] MEDS: HEPARIN 5,000 UNIT/0.5 ML VIAL SC SCH ×2 (09:58→21:26)
--- NOTE | 2017-02-21 10:10 | PN ---
DATE: 02/21/2017 CARDIOLOGY FOLLOWUP SUBJECTIVE: Discussed with the staff. Rhythm strip was reviewed. The patient remains in sinus rhy thm. Status post trach on the vent, nonverbal. MEDICATIONS: Reviewed. PHYSICAL EXAMINATION: VITAL SIGNS: Temperature 98.6, heart rate of 74, blood pressure 122/56, respiratory rate of 16, sat urating 100%. HEENT: Normocephalic, atraumatic. Obese female. Pupils are equal. NECK: Status post tracheostomy, on the vent. CARDIOVASCULAR: Regular rate and rhythm, systolic murmur. PULMONARY: With no wheezes now. GASTROINTESTINAL: Soft. No rebound or guarding. EXTREMITIES: Positive lower extremity edema. NEUROLOGIC: Does not respond to my questions. LABORATORY DATA: WBC of 6.2, hemoglobin 9.3, platelets 427. Sodium 141, potassium 4.0, BUN 35, cre atinine 1.56, glucose of 91. Echocardiogram shows ejection fraction of 65%. PA pressure of 50 mmHg. ASSESSMENT AND PLAN: 1. History of congestive heart failure, currently appears to be stable. 2. Pulmonary hypertension. 3. Hypoxemic respiratory failure, status post tracheostomy. 4. Fever and G-tube site infection. Follow up with GI and ID's recommendations. 5. Chronic kidney disease. 6. History of dementia. 7. History of coronary artery disease, per old reports. 8. Anemia. 9. Hypertension. 10. History of Clostridium difficile. 11. Encephalopathy. RECOMMENDATIONS: We will continue with the vent support. Antibiotic managed as per ID recommendati on. Followup with GI recommendations. Electrolytes will be corrected as needed. Gentle diuresis w ill be continued as needed. Dictated By: MILAGROS MUNOZ MD AV/RAYSA Conf#: [id number] DID#: [id number] CC: OSMAR MONTAGUE DO;*EndCC*
--- NOTE | 2017-02-21 12:01 | CONS ---
Date/Time of Note Date/Time of Note DATE: 02/21/17 TIME: 12:00 Assessment/Plan Assessment/Plan Additional Assessment/Plan Ventilator settings; AC of 10, tidal volume 450, PEEP of 5, 40% FiO2. Assessment recommendations; 1. Patient admitted for UTI and sepsis, currently on appropriate antibiotic regimen. 2. Chronic respiratory failure, remains ventilator dependent. 3. Advanced Parkinson's disease. 4. Chronic renal insufficiency. 5. Hypertension. 6. Dementia. Continue current treatment. Consultation Date/Type/Reason Admit Date/Time February 18, 2017 at 18:41 Initial Consult Date 02/19/17 Type of Consultation: Pulmonary 24 HR Interval Summary Free Text/Dictation Patient condition remains unchanged. Remains unresponsive. Has remained hemodynamically stable. On exam; elderly woman, on ventilator via tracheostomy currently in no distress. Exam/Review of Systems Vital Signs Vitals Vital Signs Date Time Temp Pulse Resp B/P Pulse Ox O2 Delivery O2 Flow Rate FiO2 02/21/17 11:49 98.2 71 14 138/62 99 02/21/17 11:17 40 02/18/17 20:22 Mechanical Ventilator Intake and Output 02/20/17 02/20/17 02/21/17 15:00 23:00 07:00 Intake Total 400 ml 600 ml Balance 400 ml 600 ml Exam HEENT exam; supple neck, tracheostomy in place. Insertion site is clean. No neck masses. No neck bruits. No thyromegaly. Chest examination; diminished but clear vessel. S1-S2 audible, no murmurs. Regular rhythm. Abdomen examination; soft, protuberant. G-tube in place. No organomegaly. Bowel sounds audible. Extremity exam is; trace peripheral edema. Multiple ecchymoses are present in all 4 extremities. CLINICAL REGISTERED NURSE examination; patient remains unresponsive but awake. Results Result Diagram: 02/21/17 0630 02/21/17 0630 Results 24 hrs Laboratory Tests Test 02/21/17 06:30 White Blood Count 6.2 Red Blood Count 3.11 L Hemoglobin 9.3 L Hematocrit 32.2 L Mean Corpuscular Volume 103.5 H Mean Corpuscular Hemoglobin 29.9 Mean Corpuscular Hemoglobin Concent 28.9 L Red Cell Distribution Width 17.2 H Platelet Count 427 H Mean Platelet Volume 9.7 Neutrophils % 74.4 Lymphocytes % 11.7 L Monocytes % 4.7 Eosinophils % 7.9 H Basophils % 0.3 Nucleated Red Blood Cells % 0.0 Neutrophils # 4.6 Lymphocytes # 0.7 L Monocytes # 0.3 Eosinophils # 0.5 Basophils # 0.0 Nucleated Red Blood Cells # 0.0 Sodium Level 141 Potassium Level 4.0 Chloride Level 105 Carbon Dioxide Level 32 H Anion Gap 8 Blood Urea Nitrogen 35 H Creatinine 1.56 H Glucose Level 91 Calcium Level 8.4 Phosphorus Level 4.3 Magnesium Level 2.4 Medications Medications Current Medications Acetaminophen (Tylenol Tab) 650 mg Q4H PRN GTB MILD PAIN LEVEL 1-3; Start at 19:00 Ascorbic Acid (Vitamin C) 500 mg BID GTB Last administered on 02/19/17 09:35; Admin Dose 500 MG; Start 02/18/17 at 21:00 Bisacodyl (Dulcolax Supp) 10 mg Q48H [place] ; Start 02/18/17 at 19:00 Carbidopa/Levodopa (Sinemet (25/ 100)) 1 tab TID GTB Last administered on 09:35; Admin Dose 1 TAB; Start 02/18/17 at 21:00 Chlorhexidine Gluconate (Peridex) 15 ml BID MM Last administered on 02/21/17 09 :57; Admin Dose 15 ML; Start 02/18/17 at 21:00 Clopidogrel Bisulfate (plaVIX) 75 mg DAILY GTB Last administered on 02/19/17 09 :34; Admin Dose 75 MG; Start 02/19/17 at 09:00 Donepezil HCl (Aricept) 10 mg QHS GTB Last administered on 02/18/17 21:52; Admin Dose 10 MG; Start 02/18/17 at 21:00 Epoetin Vasyl (Epogen (Esrd)) 10,000 units DAILY@17 SC Last administered on 17:42; Admin Dose 10,000 UNITS; Start 02/19/17 at 17:00 Folic Acid (Folic Acid) 1 mg DAILY GTB Last administered on 02/19/17 09:34; Admin Dose 1 MG; Start 02/19/17 at 09:00 Furosemide (Lasix) 40 mg DAILY@06 GTB ; Start 02/19/17 at 06:00 Lactobacillus Acidophilus/ Rhamnosus (Culturelle) 1 cap QHS GTB Last administered on 02/18/17 23:07; Admin Dose 1 CAP; Start 02/18/17 at 21:00 Magnesium Hydroxide (Milk Of Mag) 30 ml Q4H GTB Last administered on 02/19/17 09:33; Admin Dose 30 ML; Start 02/18/17 at 19:00 Memantine (Namenda) 5 mg DAILY GTB Last administered on 02/19/17 09:34; Admin Dose 5 MG; Start 02/19/17 at 09:00 Metoprolol Tartrate (Lopressor) 25 mg Q12H GTB Last administered on 02/19/17 09 :33; Admin Dose 25 MG; Start 02/18/17 at 19:00 Potassium Chloride (Potassium Chloride Pwd/Soln) 20 meq DAILY GTB Last administered on 02/19/17 09:35; Admin Dose 20 MEQ; Start 02/19/17 at 09:00 Pramipexole (Mirapex) 0.5 mg DAILY GTB ; Start 02/19/17 at 09:00 Docusate Sodium (Colace Liquid Cup) 100 mg BID GTB Last administered on 09:34; Admin Dose 100 MG; Start 02/18/17 at 21:00 Ferrous Sulfate (Feosol Liquid Cup) 300 mg BID GTB Last administered on 09:34; Admin Dose 300 MG; Start 02/18/17 at 21:00 Heparin Sodium (Porcine) (Heparin (5000 Units/0.5 ml)) 5,000 unit BID SC Last administered on 02/21/17 09:58; Admin Dose 5,000 UNIT; Start 02/18/17 at 21:00 Sodium Biphosphate/ Sodium Phosphate (Fleet Enema) 118 ml Q72H PRN [place] CONSTIPATION; Start 02/18/17 at 20:30 Atorvastatin Calcium (Lipitor) 5 mg DAILY@21 PO Last administered on 02/18/17 21:52; Admin Dose 5 MG; Start 02/18/17 at 21:00 Clotrimazole (Lotrimin Cr) 1 applic BID TOP Last administered on 02/21/17 09:57 ; Admin Dose 1 APPLIC; Start 02/19/17 at 14:00 Nystatin (Nystatin Powder) 1 applic BID TOP Last administered on 02/21/17 09:57 ; Admin Dose 1 APPLIC; Start 02/20/17 at 09:00 Nystatin 1 applic 1 applic BID PRN TOP NOTE; Start 02/20/17 at 00:30 Potassium Chloride/Dextrose/ Sod Cl (D5-1/2ns + KCl 10 Meq) 1,000 ml @ 50 mls/ hr Q20H IV Last administered on 02/21/17 06:13; Admin Dose 50 MLS/HR; Start 02/20/17 at 09:00 Citric Acid/ Sodium Citrate (Bicitra) 30 ml BID GTB ; Start 02/21/17 at 09:00 SMITH RUIZ February 21, 2017 12:01
[2017-02-21] MEDS: EPOETIN 10000 UNITS/1 ML INJ (ESRD) SC SCH (17:57)
--- NOTE | 2017-02-21 19:50 | CONS ---
Date/Time of Note Date/Time of Note DATE: 02/21/17 TIME: 19:49 Assessment/Plan Assessment/Plan Additional Assessment/Plan Additional Assessment/Plan ASSESSMENT: 1. Sepsis, most probably related to urinary tract infection. 2. Malfunctioning G-tube. 3. Contact dermatitis around the G-tube site. 4. Vent-dependent respiratory failure. 5. Chronic kidney disease. 6. Advanced Parkinson disease. 7. Hypertension. 8. Diabetes mellitus. 9. Coronary artery disease. 10. Anemia. PLAN: At this point, is to remove the G-tube, allow the opening to become smaller in size. Will use Lotrisone cream for the contact dermatitis. We will place new replacement tube opening is slightly smaller. Consultation Date/Type/Reason Admit Date/Time February 18, 2017 at 18:41 Initial Consult Date 02/19/17 Type of Consultation: Pulmonary 24 HR Interval Summary Subjective hx not possible: pt non-verbal Exam/Review of Systems Vital Signs Vitals Vital Signs Date Time Temp Pulse Resp B/P Pulse Ox O2 Delivery O2 Flow Rate FiO2 02/21/17 17:19 71 18 98 35 02/21/17 15:59 98.0 143/55 02/18/17 20:22 Mechanical Ventilator Intake and Output 02/20/17 02/20/17 02/21/17 15:00 23:00 07:00 Intake Total 400 ml 600 ml Balance 400 ml 600 ml Exam Constitutional: alert, oriented, well developed Psych: nl mood/affect, no complaints Head: atraumatic, normocephalic Eyes: EOMI, PERRL, nl conjunctiva, nl lids, nl sclera ENMT: nl external ears & nose, nl lips & teeth, nl nasal mucosa & septum Neck: non-tender, supple Respiratory: clear to auscultation, normal air movement Cardiovascular: nl pulses, regular rate and rhythm Gastrointestinal: nl liver, spleen, non-tender, soft Musculoskeletal: nl extremities to inspection, nl gait and stance Extremities: normal pulses Neurological: 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, nl mental status, nl speech, nl strength Skin: nl turgor, No rash or lesions Lymph: nl lymph nodes Results Result Diagram: 02/21/17 0630 02/21/17 0630 Results 24 hrs Laboratory Tests Test 02/21/17 06:30 White Blood Count 6.2 Red Blood Count 3.11 L Hemoglobin 9.3 L Hematocrit 32.2 L Mean Corpuscular Volume 103.5 H Mean Corpuscular Hemoglobin 29.9 Mean Corpuscular Hemoglobin Concent 28.9 L Red Cell Distribution Width 17.2 H Platelet Count 427 H Mean Platelet Volume 9.7 Neutrophils % 74.4 Lymphocytes % 11.7 L Monocytes % 4.7 Eosinophils % 7.9 H Basophils % 0.3 Nucleated Red Blood Cells % 0.0 Neutrophils # 4.6 Lymphocytes # 0.7 L Monocytes # 0.3 Eosinophils # 0.5 Basophils # 0.0 Nucleated Red Blood Cells # 0.0 Sodium Level 141 Potassium Level 4.0 Chloride Level 105 Carbon Dioxide Level 32 H Anion Gap 8 Blood Urea Nitrogen 35 H Creatinine 1.56 H Glucose Level 91 Calcium Level 8.4 Phosphorus Level 4.3 Magnesium Level 2.4 Medications Medications Current Medications Acetaminophen (Tylenol Tab) 650 mg Q4H PRN GTB MILD PAIN LEVEL 1-3; Start at 19:00 Ascorbic Acid (Vitamin C) 500 mg BID GTB Last administered on 02/19/17 09:35; Admin Dose 500 MG; Start 02/18/17 at 21:00 Bisacodyl (Dulcolax Supp) 10 mg Q48H [place] ; Start 02/18/17 at 19:00 Carbidopa/Levodopa (Sinemet (25/ 100)) 1 tab TID GTB Last administered on 09:35; Admin Dose 1 TAB; Start 02/18/17 at 21:00 Chlorhexidine Gluconate (Peridex) 15 ml BID MM Last administered on 02/21/17 09 :57; Admin Dose 15 ML; Start 02/18/17 at 21:00 Clopidogrel Bisulfate (plaVIX) 75 mg DAILY GTB Last administered on 02/19/17 09 :34; Admin Dose 75 MG; Start 02/19/17 at 09:00 Donepezil HCl (Aricept) 10 mg QHS GTB Last administered on 02/18/17 21:52; Admin Dose 10 MG; Start 02/18/17 at 21:00 Epoetin Vasyl (Epogen (Esrd)) 10,000 units DAILY@17 SC Last administered on 17:57; Admin Dose 10,000 UNITS; Start 02/19/17 at 17:00 Folic Acid (Folic Acid) 1 mg DAILY GTB Last administered on 02/19/17 09:34; Admin Dose 1 MG; Start 02/19/17 at 09:00 Furosemide (Lasix) 40 mg DAILY@06 GTB ; Start 02/19/17 at 06:00 Lactobacillus Acidophilus/ Rhamnosus (Culturelle) 1 cap QHS GTB Last administered on 02/18/17 23:07; Admin Dose 1 CAP; Start 02/18/17 at 21:00 Magnesium Hydroxide (Milk Of Mag) 30 ml Q4H GTB Last administered on 02/19/17 09:33; Admin Dose 30 ML; Start 02/18/17 at 19:00 Memantine (Namenda) 5 mg DAILY GTB Last administered on 02/19/17 09:34; Admin Dose 5 MG; Start 02/19/17 at 09:00 Metoprolol Tartrate (Lopressor) 25 mg Q12H GTB Last administered on 02/19/17 09 :33; Admin Dose 25 MG; Start 02/18/17 at 19:00 Potassium Chloride (Potassium Chloride Pwd/Soln) 20 meq DAILY GTB Last administered on 02/19/17 09:35; Admin Dose 20 MEQ; Start 02/19/17 at 09:00 Pramipexole (Mirapex) 0.5 mg DAILY GTB ; Start 02/19/17 at 09:00 Docusate Sodium (Colace Liquid Cup) 100 mg BID GTB Last administered on 09:34; Admin Dose 100 MG; Start 02/18/17 at 21:00 Ferrous Sulfate (Feosol Liquid Cup) 300 mg BID GTB Last administered on 09:34; Admin Dose 300 MG; Start 02/18/17 at 21:00 Heparin Sodium (Porcine) (Heparin (5000 Units/0.5 ml)) 5,000 unit BID SC Last administered on 02/21/17 09:58; Admin Dose 5,000 UNIT; Start 02/18/17 at 21:00 Sodium Biphosphate/ Sodium Phosphate (Fleet Enema) 118 ml Q72H PRN [place] CONSTIPATION; Start 02/18/17 at 20:30 Atorvastatin Calcium (Lipitor) 5 mg DAILY@21 PO Last administered on 02/18/17 21:52; Admin Dose 5 MG; Start 02/18/17 at 21:00 Clotrimazole (Lotrimin Cr) 1 applic BID TOP Last administered on 02/21/17 09:57 ; Admin Dose 1 APPLIC; Start 02/19/17 at 14:00 Nystatin (Nystatin Powder) 1 applic BID TOP Last administered on 02/21/17 09:57 ; Admin Dose 1 APPLIC; Start 02/20/17 at 09:00 Nystatin 1 applic 1 applic BID PRN TOP NOTE; Start 02/20/17 at 00:30 Potassium Chloride/Dextrose/ Sod Cl (D5-1/2ns + KCl 10 Meq) 1,000 ml @ 50 mls/ hr Q20H IV Last administered on 02/21/17 06:13; Admin Dose 50 MLS/HR; Start 02/20/17 at 09:00 Citric Acid/ Sodium Citrate (Bicitra) 30 ml BID GTB ; Start 02/21/17 at 09:00 SYLWIA SY MD February 21, 2017 19:49
[2017-02-21] MEDS: ATORVASTATIN 10 MG TAB PO SCH (21:00)
[2017-02-21] MEDS: BETAMETHASONE/CLOTRIMAZOLE 15 GM CR TOP SCH (21:00)
[2017-02-21] MEDS: LACTOBACILLUS RHAMNOSUS CAP GTB SCH (21:00)
[2017-02-21] MEDS: DONEPEZIL 10 MG TAB GTB SCH (21:00)
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
[2017-02-22] VITALS (24 sets, daily range): BP systolic 130–153; BP diastolic 60–65; PULSE 72–88; RESP 14–26
[2017-02-22] MEDS: MAGNESIUM HYDROXIDE 30ML CUP GTB SCH ×6 (03:00→22:36)
[2017-02-22] MEDS: FUROSEMIDE 40 MG TAB GTB SCH ×3 (03:50→22:27)
[2017-02-22] MEDS: D5W-0.45 NACL + KCL 10 MEQ 1,000 ML IV SCH (05:25)
[2017-02-22 06:35] LABS: ADD SCAN DIFF NO
[2017-02-22 06:41] LABS: ABNORMAL IP MESSAGE 1; BASOPHILS % 0.3 % (0.0-2.0); EOSINOPHILS # 0.4 10^3/ul (0.0-0.5); EOSINOPHILS % 5.8 % (0.0-7.0); HEMATOCRIT 32.8 % (37.0-47.0); HEMOGLOBIN 9.3 g/dl (12.0-16.0); LYMPHOCYTES # 0.7 10^3/ul (0.8-2.9); LYMPHOCYTES % 10.4 % (15.0-51.0); MEAN CORPUSCULAR HEMOGLOBIN 29.7 pg (29.0-33.0); MEAN CORPUSCULAR HGB CONC 28.4 g/dl (32.0-37.0); MEAN CORPUSCULAR VOLUME 104.8 fl (82.0-101.0); MEAN PLATELET VOLUME 10.5 fl (7.4-10.4); MONOCYTE # 0.4 10^3/ul (0.3-0.9); MONOCYTES % 5.9 % (0.0-11.0); NEUTROPHIL # 5.3 10^3/ul (1.6-7.5); NEUTROPHILS % 75.9 % (39.0-77.0); PLATELET COUNT 357 10^3/UL (140-415); RED BLOOD COUNT 3.13 10^6/ul (4.20-5.40); RED CELL DISTRIBUTION WIDTH 17.2 % (11.5-14.5); WHITE BLOOD COUNT 6.9 10^3/ul (4.8-10.8)
[2017-02-22 07:04] LABS: CALCIUM 8.5 mg/dl (8.4-10.2); CREATININE 1.59 mg/dl (0.44-1.00); MAGNESIUM 2.3 mg/dl (1.7-2.5); PHOSPHORUS 4.3 mg/dl (2.5-4.9); POTASSIUM 4.7 mmol/L (3.5-5.1)
[2017-02-22] MEDS: METOPROLOL 25 MG TAB GTB SCH ×2 (08:17→18:54)
--- NOTE | 2017-02-22 08:17 | PN ---
DATE: 02/22/2017 SUBJECTIVE: The patient is stable. No acute events overnight. Patient is scheduled for G-tube wesley cement this morning. No other events noted. OBJECTIVE: VITAL SIGNS: Blood pressure 141/60, respirations 14, pulse 79, temperature 98.3. I's and O's were reviewed. HEENT: Head is normocephalic. NECK: Shows a trach. HEART: Regular rate. LUNGS: Showed diminished breath sounds at the base. ABDOMEN: Soft, nontender to palpation. No rebound or guarding. The patient has noted erythema arou nd the ostomy site, with the dressings clean, dry and intact. EXTREMITIES: Negative for clubbing or cyanosis. Trace edema. DERMATOLOGIC: No rashes. MUSCULOSKELETAL: Have no joint effusion. NEUROLOGIC: No change in exam. LABORATORY DATA: Shows sodium 143, potassium 4.7, BUN 31, creatinine 1.59. White count 6.9, hemogl obin 9.3, hematocrit 32.8, platelet count is 357. ASSESSMENT AND PLAN: 1. Sepsis secondary to urinary tract infection. The patient is currently on an antibiotic regimen. Will continue. Cultures have been reviewed and negative to date. 2. Dysphagia, with G-tube malfunction. The patient had G-tube removal. Plan is for G-tube placeme nt this a.m. 3. Abdominal cellulitis. Continue the current antifungal therapy. 4. Ventilator-dependent respiratory failure. Vent settings were reviewed. Continue to monitor. F ollow up with pulmonary. 5. Chronic kidney disease stage IV. Renal function is currently at baseline. Continue supportive care. 6. Acute congestive heart failure exacerbation, systolic and diastolic. The patient is currently o n a diuretic regimen. Will continue. Minimize IV fluids. Follow up with cardiology. 7. Advanced Parkinson's disease with encephalopathy. Continue the current medical management. 8. Coronary artery disease. Continue the current treatment plan 9. Hypertension. Continue the current blood pressure regimen. 10. Anemia. Continue to monitor hemoglobin and hematocrit levels. Will give Epogen as needed. 11. Mineral bone disorder. Continue to monitor calcium and phosphorus levels. 12. Decubitus wounds. Continue wound care. 13. Gastrointestinal and deep venous thrombosis prophylaxis. Continue proton pump inhibitor and he santi. Dictated By: OSMAR HERNANDEZ/RAYSA Conf#: [id number] [facility]#: [id number]
[2017-02-22] MEDS: FERROUS SULFATE 60 MG/ML 5ML CUP GTB SCH ×2 (08:18→22:27)
[2017-02-22] MEDS: FOLIC ACID 1 MG TAB GTB SCH (08:18)
[2017-02-22] MEDS: DOCUSATE SODIUM 10 MG/ML (10ML CUP) GTB SCH ×2 (08:18→22:26)
[2017-02-22] MEDS: CITRIC ACID/SODIUM CITRATE 15 ML CUP GTB SCH ×2 (08:18→22:26)
[2017-02-22] MEDS: PRAMIPEXOLE 0.25 MG TAB GTB SCH (08:19)
[2017-02-22] MEDS: POTASSIUM CHLORIDE 20 MEQ POWDER FOR ORAL SOLN GTB SCH (08:19)
[2017-02-22] MEDS: CLOPIDOGREL 75 MG TAB GTB SCH (08:19)
[2017-02-22] MEDS: MEMANTINE 5 MG TAB GTB SCH (08:19)
[2017-02-22] MEDS: ASCORBIC ACID 500 MG TAB GTB SCH ×2 (08:20→22:27)
[2017-02-22] MEDS: CARBIDOPA/LEVODOPA (25/100) TAB GTB SCH ×3 (08:20→22:29)
[2017-02-22] MEDS: CHLORHEXIDINE GLUCONATE 15 ML UD CUP MM SCH ×2 (10:01→22:27)
[2017-02-22] MEDS: HEPARIN 5,000 UNIT/0.5 ML VIAL SC SCH ×2 (10:01→22:39)
[2017-02-22] MEDS: NYSTATIN 30 GM POWDER BTL TOP SCH ×2 (10:03→22:29)
[2017-02-22] MEDS: BETAMETHASONE/CLOTRIMAZOLE 15 GM CR TOP SCH ×2 (10:03→22:29)
--- NOTE | 2017-02-22 11:20 | CONS ---
Date/Time of Note Date/Time of Note DATE: 02/22/17 TIME: 11:18 Assessment/Plan Assessment/Plan Additional Assessment/Plan Ventilator settings; AC of 10, tidal volume 420, PEEP of 5, 30% FiO2. Assessment recommendations; next 1. Patient admitted for UTI and sepsis with clinical improvement. 2. Chronic renal insufficiency. 3. Chronic respiratory failure, patient remains ventilator dependent going to severe CVA 4. Advanced Parkinson's disease. 5. Hypertension. 6. Advanced dementia. Continue current treatment. Consider transferring patient back to to senior living. Consultation Date/Type/Reason Admit Date/Time February 18, 2017 at 18:41 Initial Consult Date 02/19/17 Type of Consultation: Pulmonary 24 HR Interval Summary Free Text/Dictation Patient condition remains stable. Remains essentially unresponsive. Has remained hemodynamically stable. General exam; elderly woman, on ventilator via tracheostomy currently in no distress. Exam/Review of Systems Vital Signs Vitals Vital Signs Date Time Temp Pulse Resp B/P Pulse Ox O2 Delivery O2 Flow Rate FiO2 02/22/17 09:12 75 02/22/17 07:32 98.3 14 141/62 100 02/22/17 05:26 30 02/18/17 20:22 Mechanical Ventilator Intake and Output 02/21/17 02/21/17 02/22/17 15:00 23:00 07:00 Intake Total 0 ml 550 ml Balance 0 ml 550 ml Exam HEENT exam is; supple neck, no JVD. No lymphadenopathy. Midline trachea. No thyromegaly. Tracheostomy placed with clean insertion site. Pupils are small bilaterally. No neck masses. Chest examination; clear to auscultation. S1-S2 audible, no murmurs. Abdomen examination; soft, non-distended. G-tube in place. No organomegaly. Bowel sounds audible. Extremity examination; no peripheral edema. WIRE ROPE SLING MAKER examination; patient remains essentially unresponsive. Results Result Diagram: 02/22/17 0333 02/22/17 0335 Results 24 hrs Laboratory Tests Test 02/22/17 03:33 02/22/17 03:35 White Blood Count 6.9 Red Blood Count 3.13 L Hemoglobin 9.3 L Hematocrit 32.8 L Mean Corpuscular Volume 104.8 H Mean Corpuscular Hemoglobin 29.7 Mean Corpuscular Hemoglobin Concent 28.4 L Red Cell Distribution Width 17.2 H Platelet Count 357 Mean Platelet Volume 10.5 H Neutrophils % 75.9 Lymphocytes % 10.4 L Monocytes % 5.9 Eosinophils % 5.8 Basophils % 0.3 Nucleated Red Blood Cells % 0.0 Neutrophils # 5.3 Lymphocytes # 0.7 L Monocytes # 0.4 Eosinophils # 0.4 Basophils # 0.0 Nucleated Red Blood Cells # 0.0 Sodium Level 143 Potassium Level 4.7 Chloride Level 106 Carbon Dioxide Level 31 Anion Gap 11 Blood Urea Nitrogen 31 H Creatinine 1.59 H Glucose Level 73 Calcium Level 8.5 Phosphorus Level 4.3 Magnesium Level 2.3 Medications Medications Current Medications Acetaminophen (Tylenol Tab) 650 mg Q4H PRN GTB MILD PAIN LEVEL 1-3; Start at 19:00 Ascorbic Acid (Vitamin C) 500 mg BID GTB Last administered on 02/19/17 09:35; Admin Dose 500 MG; Start 02/18/17 at 21:00 Bisacodyl (Dulcolax Supp) 10 mg Q48H [place] ; Start 02/18/17 at 19:00 Carbidopa/Levodopa (Sinemet (25/ 100)) 1 tab TID GTB Last administered on 09:35; Admin Dose 1 TAB; Start 02/18/17 at 21:00 Chlorhexidine Gluconate (Peridex) 15 ml BID MM Last administered on 02/22/17 10 :01; Admin Dose 15 ML; Start 02/18/17 at 21:00 Clopidogrel Bisulfate (plaVIX) 75 mg DAILY GTB Last administered on 02/19/17 09 :34; Admin Dose 75 MG; Start 02/19/17 at 09:00 Donepezil HCl (Aricept) 10 mg QHS GTB Last administered on 02/18/17 21:52; Admin Dose 10 MG; Start 02/18/17 at 21:00 Epoetin Vasyl (Epogen (Esrd)) 10,000 units DAILY@17 SC Last administered on 17:57; Admin Dose 10,000 UNITS; Start 02/19/17 at 17:00 Folic Acid (Folic Acid) 1 mg DAILY GTB Last administered on 02/19/17 09:34; Admin Dose 1 MG; Start 02/19/17 at 09:00 Lactobacillus Acidophilus/ Rhamnosus (Culturelle) 1 cap QHS GTB Last administered on 02/18/17 23:07; Admin Dose 1 CAP; Start 02/18/17 at 21:00 Magnesium Hydroxide (Milk Of Mag) 30 ml Q4H GTB Last administered on 02/19/17 09:33; Admin Dose 30 ML; Start 02/18/17 at 19:00 Memantine (Namenda) 5 mg DAILY GTB Last administered on 02/19/17 09:34; Admin Dose 5 MG; Start 02/19/17 at 09:00 Metoprolol Tartrate (Lopressor) 25 mg Q12H GTB Last administered on 02/19/17 09 :33; Admin Dose 25 MG; Start 02/18/17 at 19:00 Potassium Chloride (Potassium Chloride Pwd/Soln) 20 meq DAILY GTB Last administered on 02/19/17 09:35; Admin Dose 20 MEQ; Start 02/19/17 at 09:00 Pramipexole (Mirapex) 0.5 mg DAILY GTB ; Start 02/19/17 at 09:00 Docusate Sodium (Colace Liquid Cup) 100 mg BID GTB Last administered on 09:34; Admin Dose 100 MG; Start 02/18/17 at 21:00 Ferrous Sulfate (Feosol Liquid Cup) 300 mg BID GTB Last administered on 09:34; Admin Dose 300 MG; Start 02/18/17 at 21:00 Heparin Sodium (Porcine) (Heparin (5000 Units/0.5 ml)) 5,000 unit BID SC Last administered on 02/21/17 21:26; Admin Dose 5,000 UNIT; Start 02/18/17 at 21:00 Sodium Biphosphate/ Sodium Phosphate (Fleet Enema) 118 ml Q72H PRN [place] CONSTIPATION; Start 02/18/17 at 20:30 Atorvastatin Calcium (Lipitor) 5 mg DAILY@21 PO Last administered on 02/18/17 21:52; Admin Dose 5 MG; Start 02/18/17 at 21:00 Nystatin (Nystatin Powder) 1 applic BID TOP Last administered on 02/22/17 10:03 ; Admin Dose 1 APPLIC; Start 02/20/17 at 09:00 Nystatin 1 applic 1 applic BID PRN TOP NOTE; Start 02/20/17 at 00:30 Potassium Chloride/Dextrose/ Sod Cl (D5-1/2ns + KCl 10 Meq) 1,000 ml @ 50 mls/ hr Q20H IV Last administered on 02/22/17 05:25; Admin Dose 50 MLS/HR; Start 02/20/17 at 09:00 Citric Acid/ Sodium Citrate (Bicitra) 30 ml BID GTB ; Start 02/21/17 at 09:00 Betamethasone/ Clotrimazole (Lotrisone Cr) 1 applic BID TOP Last administered on 02/22/17 10:03; Admin Dose 1 APPLIC; Start 02/21/17 at 21:00 Furosemide (Lasix) 40 mg BID GTB ; Start 02/22/17 at 09:00 SMITH RUIZ February 22, 2017 11:20
--- NOTE | 2017-02-22 13:43 | PN ---
DATE: 02/22/2017 SUBJECTIVE: No events overnight. No fevers. The patient is lying comfortably in bed. LABORATORY DATA: WBC today 6.9, no shift, no bands. BUN 31, creatinine 1.59. INDWELLINGS: Trach, Collazo. PHYSICAL EXAMINATION: GENERAL: This is a fragile, chronically ill-appearing, elderly woman who is nonverbal, noncommunica tive. The patient is in no distress. HEENT: Head atraumatic, normocephalic. Sclerae anicteric. Buccal mucosa dry. NECK: Supple. Tracheostomy present. CHEST: Rise symmetrical. Breath sounds diminished to bases. HEART: S1, S2. ABDOMEN: Soft, bowel sounds present. EXTREMITIES: No cyanosis. ASSESSMENT: 1. G-tube malfunction. 2. Abdominal wall cellulitis around G-tube site secondary to gastric acid burn. 3. Chronic respiratory failure. 4. Dementia. 5. Chronic obstructive pulmonary disease and anemia. PLAN: The patient remains stable. She is off antibiotics. Pending PEG. Continue local wound care around G-tube site with Lotrimin cream. Dictated By: DOROTHY CORONADO MUSIC SOUND LIGHT TECHNICIAN for GABINO TINAJERO MD NI/NTS Conf#: [id number] DID#: [id number]
[2017-02-22] MEDS: EPOETIN 10000 UNITS/1 ML INJ (ESRD) SC SCH (17:07)
[2017-02-22] MEDS: BISACODYL 10 MG SUPP PR SCH (18:54)
--- NOTE | 2017-02-22 19:41 | CONS ---
Date/Time of Note Date/Time of Note DATE: 02/22/17 TIME: 19:40 Assessment/Plan Assessment/Plan Additional Assessment/Plan Additional Assessment/Plan ASSESSMENT: 1. Sepsis, most probably related to urinary tract infection. 2. Malfunctioning G-tube. 3. Contact dermatitis around the G-tube site. 4. Vent-dependent respiratory failure. 5. Chronic kidney disease. 6. Advanced Parkinson disease. 7. Hypertension. 8. Diabetes mellitus. 9. Coronary artery disease. 10. Anemia. PLAN: At this point, is to remove the G-tube, allow the opening to become smaller in size. Will use Lotrisone cream for the contact dermatitis. We will place new replacement tube opening is slightly smaller.. The opening did not get smaller I put a larger G-tube 24 [place]. Resume feeding through G-tube Consultation Date/Type/Reason Admit Date/Time February 18, 2017 at 18:41 Initial Consult Date 02/19/17 Type of Consultation: Pulmonary 24 HR Interval Summary Subjective hx not possible: pt non-verbal Exam/Review of Systems Vital Signs Vitals Vital Signs Date Time Temp Pulse Resp B/P Pulse Ox O2 Delivery O2 Flow Rate FiO2 02/22/17 19:22 98.8 75 24 137/63 99 02/22/17 17:47 30 02/18/17 20:22 Mechanical Ventilator Intake and Output 02/21/17 02/21/17 02/22/17 15:00 23:00 07:00 Intake Total 0 ml 550 ml Balance 0 ml 550 ml Exam Constitutional: alert, oriented, well developed Psych: nl mood/affect, no complaints Head: atraumatic, normocephalic Eyes: EOMI, PERRL, nl conjunctiva, nl lids, nl sclera ENMT: nl external ears & nose, nl lips & teeth, nl nasal mucosa & septum Neck: non-tender, supple Respiratory: clear to auscultation, normal air movement Cardiovascular: nl pulses, regular rate and rhythm Gastrointestinal: nl liver, spleen, non-tender, soft Musculoskeletal: nl extremities to inspection, nl gait and stance Extremities: normal pulses Neurological: SCHEDULE MANAGER II-XII intact, nl mental status, nl speech, nl strength Skin: nl turgor, No rash or lesions Lymph: nl lymph nodes Results Result Diagram: 02/22/17 0333 02/22/17 0335 Results 24 hrs Laboratory Tests Test 02/22/17 03:33 02/22/17 03:35 White Blood Count 6.9 Red Blood Count 3.13 L Hemoglobin 9.3 L Hematocrit 32.8 L Mean Corpuscular Volume 104.8 H Mean Corpuscular Hemoglobin 29.7 Mean Corpuscular Hemoglobin Concent 28.4 L Red Cell Distribution Width 17.2 H Platelet Count 357 Mean Platelet Volume 10.5 H Neutrophils % 75.9 Lymphocytes % 10.4 L Monocytes % 5.9 Eosinophils % 5.8 Basophils % 0.3 Nucleated Red Blood Cells % 0.0 Neutrophils # 5.3 Lymphocytes # 0.7 L Monocytes # 0.4 Eosinophils # 0.4 Basophils # 0.0 Nucleated Red Blood Cells # 0.0 Sodium Level 143 Potassium Level 4.7 Chloride Level 106 Carbon Dioxide Level 31 Anion Gap 11 Blood Urea Nitrogen 31 H Creatinine 1.59 H Glucose Level 73 Calcium Level 8.5 Phosphorus Level 4.3 Magnesium Level 2.3 Medications Medications Current Medications Acetaminophen (Tylenol Tab) 650 mg Q4H PRN GTB MILD PAIN LEVEL 1-3; Start at 19:00 Ascorbic Acid (Vitamin C) 500 mg BID GTB Last administered on 02/19/17 09:35; Admin Dose 500 MG; Start 02/18/17 at 21:00 Bisacodyl (Dulcolax Supp) 10 mg Q48H [place] ; Start 02/18/17 at 19:00 Carbidopa/Levodopa (Sinemet (25/ 100)) 1 tab TID GTB Last administered on 09:35; Admin Dose 1 TAB; Start 02/18/17 at 21:00 Chlorhexidine Gluconate (Peridex) 15 ml BID MM Last administered on 02/22/17 10 :01; Admin Dose 15 ML; Start 02/18/17 at 21:00 Clopidogrel Bisulfate (plaVIX) 75 mg DAILY GTB Last administered on 02/19/17 09 :34; Admin Dose 75 MG; Start 02/19/17 at 09:00 Donepezil HCl (Aricept) 10 mg QHS GTB Last administered on 02/18/17 21:52; Admin Dose 10 MG; Start 02/18/17 at 21:00 Epoetin Vasyl (Epogen (Esrd)) 10,000 units DAILY@17 SC Last administered on 17:07; Admin Dose 10,000 UNITS; Start 02/19/17 at 17:00 Folic Acid (Folic Acid) 1 mg DAILY GTB Last administered on 02/19/17 09:34; Admin Dose 1 MG; Start 02/19/17 at 09:00 Lactobacillus Acidophilus/ Rhamnosus (Culturelle) 1 cap QHS GTB Last administered on 02/18/17 23:07; Admin Dose 1 CAP; Start 02/18/17 at 21:00 Magnesium Hydroxide (Milk Of Mag) 30 ml Q4H GTB Last administered on 02/19/17 09:33; Admin Dose 30 ML; Start 02/18/17 at 19:00 Memantine (Namenda) 5 mg DAILY GTB Last administered on 02/19/17 09:34; Admin Dose 5 MG; Start 02/19/17 at 09:00 Metoprolol Tartrate (Lopressor) 25 mg Q12H GTB Last administered on 02/19/17 09 :33; Admin Dose 25 MG; Start 02/18/17 at 19:00 Potassium Chloride (Potassium Chloride Pwd/Soln) 20 meq DAILY GTB Last administered on 02/19/17 09:35; Admin Dose 20 MEQ; Start 02/19/17 at 09:00 Pramipexole (Mirapex) 0.5 mg DAILY GTB ; Start 02/19/17 at 09:00 Docusate Sodium (Colace Liquid Cup) 100 mg BID GTB Last administered on 09:34; Admin Dose 100 MG; Start 02/18/17 at 21:00 Ferrous Sulfate (Feosol Liquid Cup) 300 mg BID GTB Last administered on 09:34; Admin Dose 300 MG; Start 02/18/17 at 21:00 Heparin Sodium (Porcine) (Heparin (5000 Units/0.5 ml)) 5,000 unit BID SC Last administered on 02/21/17 21:26; Admin Dose 5,000 UNIT; Start 02/18/17 at 21:00 Sodium Biphosphate/ Sodium Phosphate (Fleet Enema) 118 ml Q72H PRN [place] CONSTIPATION; Start 02/18/17 at 20:30 Atorvastatin Calcium (Lipitor) 5 mg DAILY@21 PO Last administered on 02/18/17 21:52; Admin Dose 5 MG; Start 02/18/17 at 21:00 Nystatin (Nystatin Powder) 1 applic BID TOP Last administered on 02/22/17 10:03 ; Admin Dose 1 APPLIC; Start 02/20/17 at 09:00 Nystatin 1 applic 1 applic BID PRN TOP NOTE; Start 02/20/17 at 00:30 Potassium Chloride/Dextrose/ Sod Cl (D5-1/2ns + KCl 10 Meq) 1,000 ml @ 50 mls/ hr Q20H IV Last administered on 02/22/17 05:25; Admin Dose 50 MLS/HR; Start 02/20/17 at 09:00 Citric Acid/ Sodium Citrate (Bicitra) 30 ml BID GTB ; Start 02/21/17 at 09:00 Betamethasone/ Clotrimazole (Lotrisone Cr) 1 applic BID TOP Last administered on 02/22/17 10:03; Admin Dose 1 APPLIC; Start 02/21/17 at 21:00 Furosemide (Lasix) 40 mg BID GTB ; Start 02/22/17 at 09:00 SYLWIA SY MD February 22, 2017 19:41
[2017-02-22] MEDS: DONEPEZIL 10 MG TAB GTB SCH (21:00)
[2017-02-22] MEDS: ATORVASTATIN 10 MG TAB PO SCH (22:28)
[2017-02-22] MEDS: LACTOBACILLUS RHAMNOSUS CAP GTB SCH (22:28)
[2017-02-23] VITALS (24 sets, daily range): BP systolic 131–161; BP diastolic 53–65; PULSE 60–75; RESP 13–23
[2017-02-23] MEDS: MAGNESIUM HYDROXIDE 30ML CUP GTB SCH ×6 (03:56→21:58)
[2017-02-23] MEDS: D5W-0.45 NACL + KCL 10 MEQ 1,000 ML IV SCH ×2 (03:56→17:57)
--- NOTE | 2017-02-23 04:51 | PN ---
DATE: 02/22/2017 CARDIOLOGY FOLLOWUP SUBJECTIVE: Discussed with the staff. Rhythm strip was reviewed. The patient remains in sinus rhy thm. The patient is nonverbal trach on the vent. MEDICATIONS: Reviewed. PHYSICAL EXAMINATION: VITAL SIGNS: Temperature 98.2, heart rate of 95, blood pressure 130/60, respiration rate of 20, sat urating 98%. HEENT: Normocephalic, atraumatic. NECK: Status post tracheostomy, on the vent. CARDIOVASCULAR: Regular rate and rhythm, systolic murmur. PULMONARY: With no wheezes anteriorly, mild rhonchi. GASTROINTESTINAL: Soft, nontender. EXTREMITIES: With positive diffuse edema. NEUROLOGIC: Opens her eyes, does not answer my questions. LABORATORY: WBC of 6.9, hemoglobin 9.3, platelets 357. Sodium 143, potassium 4.7, BUN of 31, creat inine 1.59, glucose 73. ASSESSMENT AND PLAN: 1. Hypoxemic respiratory failure. 2. Congestive heart failure/fluid overload. 3. History of pulmonary hypertension. 4. G-tube malfunction. 5. Chronic kidney disease. 6. Dementia. 7. History of coronary artery disease. 8. Anemia. 9. Chronic obstructive pulmonary disease. 10. Encephalopathy. RECOMMENDATIONS: We will continue with the current cardiac care. Diuresis as tolerated. Vent supp ort will be continued. G-tube management and placement as per GI. Dictated By: MILAGROS MUNOZ MD AV/RAYSA Conf#: [id number] DID#: [id number] CC: OSMAR MONTAGUE DO;*EndCC*
[2017-02-23] MEDS: METOPROLOL 25 MG TAB GTB SCH ×2 (06:27→18:00)
[2017-02-23 07:30] LABS: CALCIUM 8.3 mg/dl (8.4-10.2); CREATININE 1.56 mg/dl (0.44-1.00); MAGNESIUM 2.2 mg/dl (1.7-2.5); PHOSPHORUS 3.6 mg/dl (2.5-4.9); POTASSIUM 3.9 mmol/L (3.5-5.1)
--- NOTE | 2017-02-23 08:26 | PN ---
DATE: 02/23/2017 SUBJECTIVE: The patient yesterday had a PEG tube placed, currently on tube feedings, tolerating. N o other acute events noted. No hemoptysis, hematemesis or hematochezia. OBJECTIVE: VITAL SIGNS: Blood pressure 145/53, respirations 21, pulse 68, temperature 98.8. HEENT: Head is normocephalic. NECK: Supple. HEART: Regular rate. LUNGS: Showed diminished breath sounds at the base. ABDOMEN: Soft, nontender to palpation. Positive PEG. EXTREMITIES: Negative for clubbing or cyanosis. Trace edema. Positive contractures. DERMATOLOGIC: No rashes. MUSCULOSKELETAL: Positive . NEUROLOGIC: No change in exam. MEDICATIONS: The patient's medications have been reviewed. LABORATORY DATA: Shows white count 6.9, hemoglobin 9.3, hematocrit 32.8, platelet count is 357. So dium 142, potassium 3.9, chloride 107, BUN 26, creatinine 1.57. ASSESSMENT AND PLAN: 1. Sepsis secondary to urinary tract infection. The patient has completed an antibiotic course. C ontinue to monitor. Follow closely off antibiotics. 2. Dysphagia. Status post G-tube exchange. The patient is tolerating tube feedings. Continue to monitor. 3. Abdominal wall cellulitis. Continue the current antifungal therapy. 4. Ventilatory-dependent respiratory failure. Vent settings have been reviewed. ABG has been revi ewed. Continue to monitor. 5. Chronic kidney disease stage IV. Renal function is stable, currently at baseline. Continue the current treatment plan. 6. Acute congestive heart failure exacerbation, systolic and diastolic. The patient's diuretic the rapy has been adjusted. Continue to monitor. Monitor renal function and electrolytes closely. 7. Advanced Parkinson's disease with encephalopathy. Continue the current medical management. 8. Coronary artery disease. Continue the current treatment plan. 9. Hypertension. Continue the current blood pressure regimen. 10. Anemia. Continue to monitor hemoglobin and hematocrit levels. Give Epogen as needed. 11. Mineral bone disorder. Continue to monitor calcium and phosphorus levels. 12. Decubitus wound. Continue wound care. 13. Gastrointestinal and deep venous thrombosis prophylaxis. Continue proton pump inhibitor and he santi. Dictated By: OSMAR HERNANDEZ/RAYSA Conf#: [id number] DID#: [id number]
[2017-02-23] MEDS: DOCUSATE SODIUM 10 MG/ML (10ML CUP) GTB SCH ×2 (09:14→21:00)
[2017-02-23] MEDS: BETAMETHASONE/CLOTRIMAZOLE 15 GM CR TOP SCH ×2 (09:16→21:46)
[2017-02-23] MEDS: NYSTATIN 30 GM POWDER BTL TOP SCH ×2 (09:16→21:46)
[2017-02-23] MEDS: CHLORHEXIDINE GLUCONATE 15 ML UD CUP MM SCH ×2 (09:16→21:45)
[2017-02-23] MEDS: PRAMIPEXOLE 0.25 MG TAB GTB SCH (09:16)
[2017-02-23] MEDS: MEMANTINE 5 MG TAB GTB SCH (09:16)
[2017-02-23] MEDS: POTASSIUM CHLORIDE 20 MEQ POWDER FOR ORAL SOLN GTB SCH (09:16)
[2017-02-23] MEDS: FUROSEMIDE 40 MG TAB GTB SCH ×2 (09:17→21:00)
[2017-02-23] MEDS: FERROUS SULFATE 60 MG/ML 5ML CUP GTB SCH ×2 (09:17→21:00)
[2017-02-23] MEDS: CLOPIDOGREL 75 MG TAB GTB SCH (09:17)
[2017-02-23] MEDS: CARBIDOPA/LEVODOPA (25/100) TAB GTB SCH ×3 (09:17→21:00)
[2017-02-23] MEDS: FOLIC ACID 1 MG TAB GTB SCH (09:17)
[2017-02-23] MEDS: ASCORBIC ACID 500 MG TAB GTB SCH ×2 (09:17→21:00)
[2017-02-23] MEDS: HEPARIN 5,000 UNIT/0.5 ML VIAL SC SCH ×2 (09:20→21:54)
[2017-02-23] MEDS: CITRIC ACID/SODIUM CITRATE 15 ML CUP GTB SCH ×2 (09:20→21:00)
--- NOTE | 2017-02-23 11:10 | CONS ---
Date/Time of Note Date/Time of Note DATE: 02/23/17 TIME: 11:08 Consult Date/Type/Reason Admit Date/Time February 18, 2017 at 18:41 Initial Consult Date 02/19/17 Type of Consultation: Pulmonary Subjective Patient comfortable this morning no new events continues mechanical ventilation Objective Vital Signs Date Time Temp Pulse Resp B/P Pulse Ox O2 Delivery O2 Flow Rate FiO2 02/23/17 09:15 94 20 99 30 02/23/17 07:42 98.8 145/53 Intake and Output 02/22/17 02/22/17 02/23/17 15:00 23:00 07:00 Intake Total 0 ml 740 ml Balance 0 ml 740 ml Exam PHYSICAL EXAMINATION GENERAL: Elderly gentleman, on mechanical ventilation, VITAL SIGNS: see below. HEENT: Pupils equal, round, and reactive to light. Tracheostomy site clean and intact. CARDIAC: S1, S2, 1/6 systolic ejection murmur CHEST: Diminished air entry bilaterally. ABDOMEN: Mildly distended. Bowel sounds present EXTREMITIES: No cyanosis, clubbing edema +1 NEUROLOGIC: Generalized weakness Results/Medications Result Diagram: 02/22/17 0333 02/23/17 0540 Results 24 hrs Laboratory Tests Test 02/23/17 05:40 Sodium Level 142 Potassium Level 3.9 Chloride Level 107 Carbon Dioxide Level 32 H Anion Gap 7 L Blood Urea Nitrogen 26 H Creatinine 1.56 H Glucose Level 148 # Calcium Level 8.3 L Phosphorus Level 3.6 Magnesium Level 2.2 Medications Current Medications Acetaminophen (Tylenol Tab) 650 mg Q4H PRN GTB MILD PAIN LEVEL 1-3; Start at 19:00 Ascorbic Acid (Vitamin C) 500 mg BID GTB Last administered on 02/23/17 09:17; Admin Dose 500 MG; Start 02/18/17 at 21:00 Bisacodyl (Dulcolax Supp) 10 mg Q48H [place] ; Start 02/18/17 at 19:00 Carbidopa/Levodopa (Sinemet (25/ 100)) 1 tab TID GTB Last administered on 09:17; Admin Dose 1 TAB; Start 02/18/17 at 21:00 Chlorhexidine Gluconate (Peridex) 15 ml BID MM Last administered on 02/23/17 09 :16; Admin Dose 15 ML; Start 02/18/17 at 21:00 Clopidogrel Bisulfate (plaVIX) 75 mg DAILY GTB Last administered on 02/23/17 09 :17; Admin Dose 75 MG; Start 02/19/17 at 09:00 Donepezil HCl (Aricept) 10 mg QHS GTB Last administered on 02/22/17 21:00; Admin Dose 10 MG; Start 02/18/17 at 21:00 Epoetin Vasyl (Epogen (Esrd)) 10,000 units DAILY@17 SC Last administered on 17:07; Admin Dose 10,000 UNITS; Start 02/19/17 at 17:00 Folic Acid (Folic Acid) 1 mg DAILY GTB Last administered on 02/23/17 09:17; Admin Dose 1 MG; Start 02/19/17 at 09:00 Lactobacillus Acidophilus/ Rhamnosus (Culturelle) 1 cap QHS GTB Last administered on 02/22/17 22:28; Admin Dose 1 CAP; Start 02/18/17 at 21:00 Magnesium Hydroxide (Milk Of Mag) 30 ml Q4H GTB Last administered on 02/23/17 06:26; Admin Dose 30 ML; Start 02/18/17 at 19:00 Memantine (Namenda) 5 mg DAILY GTB Last administered on 02/23/17 09:16; Admin Dose 5 MG; Start 02/19/17 at 09:00 Metoprolol Tartrate (Lopressor) 25 mg Q12H GTB Last administered on 02/23/17 06 :27; Admin Dose 25 MG; Start 02/18/17 at 19:00 Potassium Chloride (Potassium Chloride Pwd/Soln) 20 meq DAILY GTB Last administered on 02/23/17 09:16; Admin Dose 20 MEQ; Start 02/19/17 at 09:00 Pramipexole (Mirapex) 0.5 mg DAILY GTB Last administered on 02/23/17 09:16; Admin Dose 0.5 MG; Start 02/19/17 at 09:00 Docusate Sodium (Colace Liquid Cup) 100 mg BID GTB Last administered on 09:14; Admin Dose 100 MG; Start 02/18/17 at 21:00 Ferrous Sulfate (Feosol Liquid Cup) 300 mg BID GTB Last administered on 09:17; Admin Dose 300 MG; Start 02/18/17 at 21:00 Heparin Sodium (Porcine) (Heparin (5000 Units/0.5 ml)) 5,000 unit BID SC Last administered on 02/23/17 09:20; Admin Dose 5,000 UNIT; Start 02/18/17 at 21:00 Sodium Biphosphate/ Sodium Phosphate (Fleet Enema) 118 ml Q72H PRN [place] CONSTIPATION; Start 02/18/17 at 20:30 Atorvastatin Calcium (Lipitor) 5 mg DAILY@21 PO Last administered on 02/22/17 22:28; Admin Dose 5 MG; Start 02/18/17 at 21:00 Nystatin (Nystatin Powder) 1 applic BID TOP Last administered on 02/23/17 09:16 ; Admin Dose 1 APPLIC; Start 02/20/17 at 09:00 Nystatin (Nystatin Powder) 1 applic BID PRN TOP NOTE; Start 02/20/17 at 00:30 Citric Acid/ Sodium Citrate (Bicitra) 30 ml BID GTB Last administered on 09:20; Admin Dose 30 ML; Start 02/21/17 at 09:00 Betamethasone/ Clotrimazole (Lotrisone Cr) 1 applic BID TOP Last administered on 02/23/17 09:16; Admin Dose 1 APPLIC; Start 02/21/17 at 21:00 Furosemide (Lasix) 40 mg BID GTB Last administered on 02/23/17 09:17; Admin Dose 40 MG; Start 02/22/17 at 09:00 Assessment/Plan Chief Complaint/Hosp Course Assessment 1. Vent dependent respiratory failure 2. Healthcare associated pneumonia and urinary tract infection 3. Dysphagia with G-tube 4. History of dementia 5. Chronic anemia 6. Mild renal insufficiency Plan 1. Continue antibiotics 2. Continue vent support 3. Tube feeding as tolerated 4. DVT GI prophylaxis [facility]position [facility] Problems: [facility] CLAIRE [facility] February 23, 2017 11:10
--- NOTE | 2017-02-23 14:05 | CONS ---
Date/Time of Note Date/Time of Note DATE: 02/23/17 TIME: 14:01 Assessment/Plan Assessment/Plan Additional Assessment/Plan ASSESSMENT: 1. Sepsis, most probably related to urinary tract infection. 2. Malfunctioning G-tube. 24 Yi G-tube placed, patient is tolerating feeding now 3. Contact dermatitis around the G-tube site. 4. Vent-dependent respiratory failure. 5. Chronic kidney disease. 6. Advanced Parkinson disease. 7. Hypertension. 8. Diabetes mellitus. 9. Coronary artery disease. 10. Anemia. Plan Continue present care Continue Lotrisone for a few more days. If the leakage continues then will have to change into GJ tube. G-tube location as in the difficult position in between fold making it difficult for the external bumper to appropriately position Consultation Date/Type/Reason Admit Date/Time February 18, 2017 at 18:41 Initial Consult Date 02/19/17 Type of Consultation: Pulmonary 24 HR Interval Summary Subjective hx not possible: pt non-verbal Exam/Review of Systems Vital Signs Vitals Vital Signs Date Time Temp Pulse Resp B/P Pulse Ox O2 Delivery O2 Flow Rate FiO2 02/23/17 13:10 72 19 96 30 02/23/17 11:34 98.4 161/65 Intake and Output 02/22/17 02/22/17 02/23/17 14:59 22:59 06:59 Intake Total 0 ml 740 ml Balance 0 ml 740 ml Exam Respiratory: normal air movement, other (Patient is on vent) Cardiovascular: nl pulses, regular rate and rhythm Gastrointestinal: nl liver, spleen, non-tender, other (Extensive dermatitis around the G-tube site), soft Musculoskeletal: nl extremities to inspection, nl gait and stance Extremities: normal pulses Neurological: unresponsive Lymph: nl lymph nodes Results Result Diagram: 02/22/17 0333 02/23/17 0540 Results 24 hrs Laboratory Tests Test 02/23/17 05:40 Sodium Level 142 Potassium Level 3.9 Chloride Level 107 Carbon Dioxide Level 32 H Anion Gap 7 L Blood Urea Nitrogen 26 H Creatinine 1.56 H Glucose Level 148 # Calcium Level 8.3 L Phosphorus Level 3.6 Magnesium Level 2.2 Medications Medications Current Medications Acetaminophen (Tylenol Tab) 650 mg Q4H PRN GTB MILD PAIN LEVEL 1-3; Start at 19:00 Ascorbic Acid (Vitamin C) 500 mg BID GTB Last administered on 02/23/17 09:17; Admin Dose 500 MG; Start 02/18/17 at 21:00 Bisacodyl (Dulcolax Supp) 10 mg Q48H [place] ; Start 02/18/17 at 19:00 Carbidopa/Levodopa (Sinemet (25/ 100)) 1 tab TID GTB Last administered on 13:28; Admin Dose 1 TAB; Start 02/18/17 at 21:00 Chlorhexidine Gluconate (Peridex) 15 ml BID MM Last administered on 02/23/17 09 :16; Admin Dose 15 ML; Start 02/18/17 at 21:00 Clopidogrel Bisulfate (plaVIX) 75 mg DAILY GTB Last administered on 02/23/17 09 :17; Admin Dose 75 MG; Start 02/19/17 at 09:00 Donepezil HCl (Aricept) 10 mg QHS GTB Last administered on 02/22/17 21:00; Admin Dose 10 MG; Start 02/18/17 at 21:00 Epoetin Vasyl (Epogen (Esrd)) 10,000 units DAILY@17 SC Last administered on 17:07; Admin Dose 10,000 UNITS; Start 02/19/17 at 17:00 Folic Acid (Folic Acid) 1 mg DAILY GTB Last administered on 02/23/17 09:17; Admin Dose 1 MG; Start 02/19/17 at 09:00 Lactobacillus Acidophilus/ Rhamnosus (Culturelle) 1 cap QHS GTB Last administered on 02/22/17 22:28; Admin Dose 1 CAP; Start 02/18/17 at 21:00 Magnesium Hydroxide (Milk Of Mag) 30 ml Q4H GTB Last administered on 02/23/17 11:55; Admin Dose 30 ML; Start 02/18/17 at 19:00 Memantine (Namenda) 5 mg DAILY GTB Last administered on 02/23/17 09:16; Admin Dose 5 MG; Start 02/19/17 at 09:00 Metoprolol Tartrate (Lopressor) 25 mg Q12H GTB Last administered on 02/23/17 06 :27; Admin Dose 25 MG; Start 02/18/17 at 19:00 Potassium Chloride (Potassium Chloride Pwd/Soln) 20 meq DAILY GTB Last administered on 02/23/17 09:16; Admin Dose 20 MEQ; Start 02/19/17 at 09:00 Pramipexole (Mirapex) 0.5 mg DAILY GTB Last administered on 02/23/17 09:16; Admin Dose 0.5 MG; Start 02/19/17 at 09:00 Docusate Sodium (Colace Liquid Cup) 100 mg BID GTB Last administered on 09:14; Admin Dose 100 MG; Start 02/18/17 at 21:00 Ferrous Sulfate (Feosol Liquid Cup) 300 mg BID GTB Last administered on 09:17; Admin Dose 300 MG; Start 02/18/17 at 21:00 Heparin Sodium (Porcine) (Heparin (5000 Units/0.5 ml)) 5,000 unit BID SC Last administered on 02/23/17 09:20; Admin Dose 5,000 UNIT; Start 02/18/17 at 21:00 Sodium Biphosphate/ Sodium Phosphate (Fleet Enema) 118 ml Q72H PRN [place] CONSTIPATION; Start 02/18/17 at 20:30 Atorvastatin Calcium (Lipitor) 5 mg DAILY@21 PO Last administered on 02/22/17 22:28; Admin Dose 5 MG; Start 02/18/17 at 21:00 Nystatin (Nystatin Powder) 1 applic BID TOP Last administered on 02/23/17 09:16 ; Admin Dose 1 APPLIC; Start 02/20/17 at 09:00 Nystatin (Nystatin Powder) 1 applic BID PRN TOP NOTE; Start 02/20/17 at 00:30 Citric Acid/ Sodium Citrate (Bicitra) 30 ml BID GTB Last administered on 09:20; Admin Dose 30 ML; Start 02/21/17 at 09:00 Betamethasone/ Clotrimazole (Lotrisone Cr) 1 applic BID TOP Last administered on 02/23/17 09:16; Admin Dose 1 APPLIC; Start 02/21/17 at 21:00 Furosemide (Lasix) 40 mg BID GTB Last administered on 02/23/17 09:17; Admin Dose 40 MG; Start 02/22/17 at 09:00 SYLWIA SY MD February 23, 2017 14:05
[2017-02-23] MEDS: EPOETIN 10000 UNITS/1 ML INJ (ESRD) SC SCH (17:55)
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
[2017-02-23] MEDS: ATORVASTATIN 10 MG TAB PO SCH (21:00)
[2017-02-23] MEDS: LACTOBACILLUS RHAMNOSUS CAP GTB SCH (21:00)
[2017-02-23] MEDS: DONEPEZIL 10 MG TAB GTB SCH (21:00)
[2017-02-24] VITALS (24 sets, daily range): BP systolic 132–161; BP diastolic 53–65; PULSE 65–74; RESP 12–22
[2017-02-24] MEDS: MAGNESIUM HYDROXIDE 30ML CUP GTB SCH ×7 (00:44→22:18)
[2017-02-24 06:00] LABS: ADD SCAN DIFF NO
[2017-02-24 06:10] LABS: BASOPHILS % 0.4 % (0.0-2.0); EOSINOPHILS # 0.1 10^3/ul (0.0-0.5); EOSINOPHILS % 1.4 % (0.0-7.0); HEMATOCRIT 31.2 % (37.0-47.0); HEMOGLOBIN 9.2 g/dl (12.0-16.0); LYMPHOCYTES # 0.7 10^3/ul (0.8-2.9); LYMPHOCYTES % 9.6 % (15.0-51.0); MEAN CORPUSCULAR HEMOGLOBIN 30.7 pg (29.0-33.0); MEAN CORPUSCULAR HGB CONC 29.5 g/dl (32.0-37.0); MEAN PLATELET VOLUME 9.1 fl (7.4-10.4); MONOCYTE # 0.3 10^3/ul (0.3-0.9); MONOCYTES % 4.4 % (0.0-11.0); NEUTROPHIL # 5.6 10^3/ul (1.6-7.5); NEUTROPHILS % 80.2 % (39.0-77.0); PLATELET COUNT 406 10^3/UL (140-415); RED CELL DISTRIBUTION WIDTH 17.1 % (11.5-14.5)
[2017-02-24 06:43] LABS: POTASSIUM 4.4 mmol/L (3.5-5.1)
[2017-02-24 06:44] LABS: CALCIUM 8.1 mg/dl (8.4-10.2); CREATININE 1.5 mg/dl (0.44-1.00); MAGNESIUM 2.4 mg/dl (1.7-2.5); PHOSPHORUS 3.5 mg/dl (2.5-4.9)
[2017-02-24] MEDS: METOPROLOL 25 MG TAB GTB SCH ×3 (07:00→22:19)
--- NOTE | 2017-02-24 08:49 | PN ---
DATE: 02/24/2017 SUBJECTIVE: The patient yesterday had his G-tube dislodged. The patient was restarted on IV fluids . No other events noted. OBJECTIVE: VITAL SIGNS: Blood pressure 132/60, respiration 18, pulse ____, temperature 97.9. HEENT: Head is normocephalic. NECK: Supple. HEART: Regular rate. LUNGS: Show diminished breath sounds at the base. ABDOMEN: Soft, nontender to palpation without rebound or guarding. EXTREMITIES: Negative for clubbing, cyanosis. Trace edema. Positive contractures. DERMATOLOGIC: No rashes. MUSCULOSKELETAL: No joint effusions. NEUROLOGIC: No change in exam. MEDICATIONS: The patient's medications have been reviewed. LABORATORY DATA: White count 7.9, hemoglobin 9.2, hematocrit 31.2, platelet count is 406. Sodium 1 43, potassium 4.4, BUN 27, creatinine 1.50. ASSESSMENT AND PLAN: 1. Sepsis secondary to urinary tract infection. The patient has completed antibiotic course. 2. Dysphagia, status post G-tube exchange. The patient's G-tube has been dislodged, will have reev aluation by GI. 3. Abdominal cellulitis. Continue current antifungal therapy. 4. Ventilatory-dependent respiratory failure. Vent settings have been reviewed. ABG has been revi ewed. Continue to monitor. 5. Chronic kidney disease stage IV, renal function is at baseline. Continue to monitor. 6. Acute congestive heart failure exacerbation, systolic and diastolic. The patient's diuretics osuna ve been adjusted. Continue to monitor. 7. Parkinson's disease with encephalopathy. Continue current medical management. 8. Chronic disease. Continue current treatment plan. 9. Hypertension. Continue current blood pressure regimen. 10. Anemia. Continue to monitor hemoglobin and hematocrit levels. Continue Epogen. 11. Mineral bone disorder. Continue to monitor calcium and phosphorus levels. 12. Decubitus wound. Continue wound care. 13. Gastrointestinal and deep venous thrombosis prophylaxis. Continue proton pump inhibitor and he santi. Dictated By: OSMAR HERNANDEZ/RAYSA Conf#: [id number] DID#: [id number]
[2017-02-24] MEDS: PRAMIPEXOLE 0.25 MG TAB GTB SCH (09:00)
[2017-02-24] MEDS: CLOPIDOGREL 75 MG TAB GTB SCH (09:00)
[2017-02-24] MEDS: CITRIC ACID/SODIUM CITRATE 15 ML CUP GTB SCH ×2 (09:00→20:15)
[2017-02-24] MEDS: FUROSEMIDE 40 MG TAB GTB SCH ×2 (09:00→20:16)
[2017-02-24] MEDS: DOCUSATE SODIUM 10 MG/ML (10ML CUP) GTB SCH ×2 (09:00→20:16)
[2017-02-24] MEDS: MEMANTINE 5 MG TAB GTB SCH (09:00)
[2017-02-24] MEDS: ASCORBIC ACID 500 MG TAB GTB SCH ×2 (09:00→20:16)
[2017-02-24] MEDS: POTASSIUM CHLORIDE 20 MEQ POWDER FOR ORAL SOLN GTB SCH (09:00)
[2017-02-24] MEDS: FERROUS SULFATE 60 MG/ML 5ML CUP GTB SCH ×2 (09:00→20:16)
[2017-02-24] MEDS: FOLIC ACID 1 MG TAB GTB SCH (09:00)
[2017-02-24] MEDS: CARBIDOPA/LEVODOPA (25/100) TAB GTB SCH ×3 (09:00→20:16)
[2017-02-24] MEDS: CHLORHEXIDINE GLUCONATE 15 ML UD CUP MM SCH ×2 (09:40→21:42)
[2017-02-24] MEDS: HEPARIN 5,000 UNIT/0.5 ML VIAL SC SCH ×2 (09:41→21:45)
[2017-02-24] MEDS: BETAMETHASONE/CLOTRIMAZOLE 15 GM CR TOP SCH ×2 (09:43→21:42)
[2017-02-24] MEDS: NYSTATIN 30 GM POWDER BTL TOP SCH ×2 (09:43→21:42)
[2017-02-24] MEDS: D5W-0.45 NACL + KCL 10 MEQ 1,000 ML IV SCH (14:03)
--- NOTE | 2017-02-24 14:15 | CONS ---
Date/Time of Note Date/Time of Note DATE: 02/24/17 TIME: 14:14 Consult Date/Type/Reason Admit Date/Time February 18, 2017 at 18:41 Initial Consult Date 02/19/17 Type of Consultation: pulmonary Subjective No significant changes patient remains stable Objective Vital Signs Date Time Temp Pulse Resp B/P Pulse Ox O2 Delivery O2 Flow Rate FiO2 02/24/17 12:33 65 02/24/17 11:05 13 99 30 02/24/17 11:00 97.9 153/65 Intake and Output 02/23/17 02/23/17 02/24/17 15:00 23:00 07:00 Intake Total 600 ml 440 ml Output Total 30 ml Balance 600 ml 410 ml Exam PHYSICAL EXAMINATION GENERAL: Elderly gentleman, on mechanical ventilation, VITAL SIGNS: see below. HEENT: Pupils equal, round, and reactive to light. Tracheostomy site clean and intact. CARDIAC: S1, S2, 1/6 systolic ejection murmur CHEST: Diminished air entry bilaterally. ABDOMEN: Mildly distended. Bowel sounds present EXTREMITIES: No cyanosis, clubbing edema +1 NEUROLOGIC: Generalized weakness Results/Medications Result Diagram: 02/24/17 0535 02/24/17 0535 Results 24 hrs Laboratory Tests Test 02/24/17 05:35 White Blood Count 7.0 Red Blood Count 3.00 L Hemoglobin 9.2 L Hematocrit 31.2 L Mean Corpuscular Volume 104.0 H Mean Corpuscular Hemoglobin 30.7 Mean Corpuscular Hemoglobin Concent 29.5 L Red Cell Distribution Width 17.1 H Platelet Count 406 Mean Platelet Volume 9.1 Neutrophils % 80.2 H Lymphocytes % 9.6 L Monocytes % 4.4 Eosinophils % 1.4 Basophils % 0.4 Nucleated Red Blood Cells % 0.0 Neutrophils # 5.6 Lymphocytes # 0.7 L Monocytes # 0.3 Eosinophils # 0.1 Basophils # 0.0 Nucleated Red Blood Cells # 0.0 Sodium Level 143 Potassium Level 4.4 Chloride Level 108 Carbon Dioxide Level 31 Anion Gap 8 Blood Urea Nitrogen 27 H Creatinine 1.50 H Glucose Level 119 Calcium Level 8.1 L Phosphorus Level 3.5 Magnesium Level 2.4 Medications Current Medications Acetaminophen (Tylenol Tab) 650 mg Q4H PRN GTB MILD PAIN LEVEL 1-3; Start at 19:00 Ascorbic Acid (Vitamin C) 500 mg BID GTB Last administered on 02/23/17 09:17; Admin Dose 500 MG; Start 02/18/17 at 21:00 Bisacodyl (Dulcolax Supp) 10 mg Q48H [place] ; Start 02/18/17 at 19:00 Carbidopa/Levodopa (Sinemet (25/ 100)) 1 tab TID GTB Last administered on 13:28; Admin Dose 1 TAB; Start 02/18/17 at 21:00 Chlorhexidine Gluconate (Peridex) 15 ml BID MM Last administered on 02/24/17 09 :40; Admin Dose 15 ML; Start 02/18/17 at 21:00 Clopidogrel Bisulfate (plaVIX) 75 mg DAILY GTB Last administered on 02/23/17 09 :17; Admin Dose 75 MG; Start 02/19/17 at 09:00 Donepezil HCl (Aricept) 10 mg QHS GTB Last administered on 02/22/17 21:00; Admin Dose 10 MG; Start 02/18/17 at 21:00 Epoetin Vasyl (Epogen (Esrd)) 10,000 units DAILY@17 SC Last administered on 17:55; Admin Dose 10,000 UNITS; Start 02/19/17 at 17:00 Folic Acid (Folic Acid) 1 mg DAILY GTB Last administered on 02/23/17 09:17; Admin Dose 1 MG; Start 02/19/17 at 09:00 Lactobacillus Acidophilus/ Rhamnosus (Culturelle) 1 cap QHS GTB Last administered on 02/22/17 22:28; Admin Dose 1 CAP; Start 02/18/17 at 21:00 Magnesium Hydroxide (Milk Of Mag) 30 ml Q4H GTB Last administered on 02/23/17 11:55; Admin Dose 30 ML; Start 02/18/17 at 19:00 Memantine (Namenda) 5 mg DAILY GTB Last administered on 02/23/17 09:16; Admin Dose 5 MG; Start 02/19/17 at 09:00 Metoprolol Tartrate (Lopressor) 25 mg Q12H GTB Last administered on 02/23/17 06 :27; Admin Dose 25 MG; Start 02/18/17 at 19:00 Potassium Chloride (Potassium Chloride Pwd/Soln) 20 meq DAILY GTB Last administered on 02/23/17 09:16; Admin Dose 20 MEQ; Start 02/19/17 at 09:00 Pramipexole (Mirapex) 0.5 mg DAILY GTB Last administered on 02/23/17 09:16; Admin Dose 0.5 MG; Start 02/19/17 at 09:00 Docusate Sodium (Colace Liquid Cup) 100 mg BID GTB Last administered on 09:14; Admin Dose 100 MG; Start 02/18/17 at 21:00 Ferrous Sulfate (Feosol Liquid Cup) 300 mg BID GTB Last administered on 09:17; Admin Dose 300 MG; Start 02/18/17 at 21:00 Heparin Sodium (Porcine) (Heparin (5000 Units/0.5 ml)) 5,000 unit BID SC Last administered on 02/24/17 09:41; Admin Dose 5,000 UNIT; Start 02/18/17 at 21:00 Sodium Biphosphate/ Sodium Phosphate (Fleet Enema) 118 ml Q72H PRN [place] CONSTIPATION; Start 02/18/17 at 20:30 Atorvastatin Calcium (Lipitor) 5 mg DAILY@21 PO Last administered on 02/22/17 22:28; Admin Dose 5 MG; Start 02/18/17 at 21:00 Nystatin (Nystatin Powder) 1 applic BID TOP Last administered on 02/24/17 09:43 ; Admin Dose 1 APPLIC; Start 02/20/17 at 09:00 Nystatin (Nystatin Powder) 1 applic BID PRN TOP NOTE; Start 02/20/17 at 00:30 Citric Acid/ Sodium Citrate (Bicitra) 30 ml BID GTB Last administered on 09:20; Admin Dose 30 ML; Start 02/21/17 at 09:00 Betamethasone/ Clotrimazole (Lotrisone Cr) 1 applic BID TOP Last administered on 02/24/17 09:43; Admin Dose 1 APPLIC; Start 02/21/17 at 21:00 Furosemide 40 mg 40 mg BID GTB Last administered on 02/23/17 09:17; Admin Dose 40 MG; Start 02/22/17 at 09:00 Potassium Chloride/Dextrose/ Sod Cl (D5-1/2ns + KCl 10 Meq) 1,000 ml @ 40 mls/ hr Q24H IV Last administered on 02/24/17t 14:03; Admin Dose 40 MLS/HR; Start 02/23/17 at 18:00 Assessment/Plan Chief Complaint/Hosp Course Assessment 1. Vent dependent respiratory failure 2. Healthcare associated pneumonia and urinary tract infection 3. Dysphagia with G-tube 4. History of dementia 5. Chronic anemia 6. Mild renal insufficiency Plan 1. Continue antibiotics 2. Continue vent support 3. Tube feeding as tolerated 4. DVT GI prophylaxis Disposition Consider transfer back to long-term facility Problems: JARED CLAIRE MD, FCCP February 24, 2017 14:15
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
[2017-02-24] MEDS: EPOETIN 10000 UNITS/1 ML INJ (ESRD) SC SCH (16:55)
[2017-02-24] MEDS: BISACODYL 10 MG SUPP PR SCH (18:29)
[2017-02-24] MEDS: DONEPEZIL 10 MG TAB GTB SCH (20:15)
[2017-02-24] MEDS: LACTOBACILLUS RHAMNOSUS CAP GTB SCH (20:16)
[2017-02-24] MEDS: ATORVASTATIN 10 MG TAB PO SCH (20:16)
[2017-02-25] VITALS (27 sets, daily range): BP systolic 109–192; BP diastolic 56–85; PULSE 60–72; RESP 13–23
[2017-02-25 06:01] LABS: ADD SCAN DIFF NO
[2017-02-25 06:17] LABS: ABNORMAL IP MESSAGE 1; BASOPHILS % 0.3 % (0.0-2.0); EOSINOPHILS # 0.2 10^3/ul (0.0-0.5); EOSINOPHILS % 3.5 % (0.0-7.0); HEMATOCRIT 33.7 % (37.0-47.0); HEMOGLOBIN 9.4 g/dl (12.0-16.0); LYMPHOCYTES # 0.9 10^3/ul (0.8-2.9); LYMPHOCYTES % 12.6 % (15.0-51.0); MEAN CORPUSCULAR HEMOGLOBIN 29.6 pg (29.0-33.0); MEAN CORPUSCULAR HGB CONC 27.9 g/dl (32.0-37.0); MEAN PLATELET VOLUME 8.7 fl (7.4-10.4); MONOCYTE # 0.3 10^3/ul (0.3-0.9); MONOCYTES % 3.8 % (0.0-11.0); NEUTROPHIL # 5.1 10^3/ul (1.6-7.5); NEUTROPHILS % 73.7 % (39.0-77.0); PLATELET COUNT 375 10^3/UL (140-415); RED BLOOD COUNT 3.18 10^6/ul (4.20-5.40); RED CELL DISTRIBUTION WIDTH 17.6 % (11.5-14.5); WHITE BLOOD COUNT 6.9 10^3/ul (4.8-10.8)
[2017-02-25 06:37] LABS: CALCIUM 8.6 mg/dl (8.4-10.2); CREATININE 1.63 mg/dl (0.44-1.00); MAGNESIUM 2.4 mg/dl (1.7-2.5); PHOSPHORUS 3.6 mg/dl (2.5-4.9); POTASSIUM 4.5 mmol/L (3.5-5.1)
[2017-02-25] MEDS: MAGNESIUM HYDROXIDE 30ML CUP GTB SCH ×5 (07:00→23:00)
[2017-02-25] MEDS: BETAMETHASONE/CLOTRIMAZOLE 15 GM CR TOP SCH ×2 (08:43→21:34)
[2017-02-25] MEDS: CHLORHEXIDINE GLUCONATE 15 ML UD CUP MM SCH ×2 (08:43→21:32)
[2017-02-25] MEDS: NYSTATIN 30 GM POWDER BTL TOP SCH ×2 (08:44→21:33)
[2017-02-25] MEDS: HEPARIN 5,000 UNIT/0.5 ML VIAL SC SCH ×2 (08:47→21:35)
[2017-02-25] MEDS: FUROSEMIDE 40 MG TAB GTB SCH ×2 (08:48→21:32)
[2017-02-25] MEDS: PRAMIPEXOLE 0.25 MG TAB GTB SCH (08:48)
[2017-02-25] MEDS: FERROUS SULFATE 60 MG/ML 5ML CUP GTB SCH ×2 (08:48→21:32)
[2017-02-25] MEDS: CITRIC ACID/SODIUM CITRATE 15 ML CUP GTB SCH ×2 (08:48→21:32)
[2017-02-25] MEDS: FOLIC ACID 1 MG TAB GTB SCH (08:48)
[2017-02-25] MEDS: MEMANTINE 5 MG TAB GTB SCH (08:48)
[2017-02-25] MEDS: DOCUSATE SODIUM 10 MG/ML (10ML CUP) GTB SCH ×2 (08:48→21:32)
[2017-02-25] MEDS: ASCORBIC ACID 500 MG TAB GTB SCH ×2 (08:49→21:31)
[2017-02-25] MEDS: CLOPIDOGREL 75 MG TAB GTB SCH (08:49)
[2017-02-25] MEDS: CARBIDOPA/LEVODOPA (25/100) TAB GTB SCH ×3 (08:49→21:31)
[2017-02-25] MEDS: POTASSIUM CHLORIDE 20 MEQ POWDER FOR ORAL SOLN GTB SCH (08:49)
--- NOTE | 2017-02-25 09:38 | PN ---
DATE: 02/25/2017 SUBJECTIVE: The patient is stable, no acute events overnight. No fevers, chills, nausea, vomiting, no shortness of breath. The patient is pending possible G-tube placement. OBJECTIVE: VITAL SIGNS: Blood pressure is 155/68, respirations 18, pulse 69, temperature 98.6. HEENT: Head is normocephalic. NECK: Supple. HEART: Regular rate. LUNGS: Show diminished breath sounds at the base. ABDOMEN: Soft, nontender to palpation without rebound or guarding. The patient has dressing over o stomy site and abdominal wall erythema is improving. EXTREMITIES: Negative for clubbing, cyanosis, no edema. DERMATOLOGIC: There are no new rashes. MUSCULOSKELETAL: No joint effusions. Noted contractures. There is noted coccygeal wound. NEUROLOGIC: No change in exam. 0MEDICATIONS: The patient's medications have been reviewed. LABORATORY DATA: Showed sodium 144, potassium 4.5, BUN 25, creatinine 1.63. White count 6.9, hemog lobin 9.4, hematocrit 33.7, platelet count is 375. ASSESSMENT AND PLAN: 1. Sepsis secondary to urinary tract infection. The patient has completed antibiotic course. 2. Dysphagia, status post G-tube exchange. The patient's G-tube has been dislodged replacement of the G-tube is pending per GI. 3. Abdominal cellulitis. Continue antifungal therapy. 4. Ventilator dependent respiratory failure. Vent settings reviewed. Continue to monitor. 5. Chronic kidney disease stage IV. The patient's renal function is near baseline. We will contin ue to monitor closely. 6. Acute congestive heart failure exacerbation. Etiology systolic, diastolic. The patient is curr ently on diuretics, continue, follow up with cardiology. 7. Parkinson's disease with encephalopathy. No change. Continue medical management. 8. Hypertension. Continue current blood pressure regimen. 9. Anemia. Continue to monitor hemoglobin and hematocrit levels. Give Epogen as needed. 10. Mineral bone disease. Continue to monitor calcium and phosphorus levels. 11. Decubitus wound. Continue wound care. 12. Gastrointestinal and deep venous thrombosis prophylaxis. Continue proton pump inhibitor and he santi. Dictated By: OSMAR HERNANDEZ/RAYSA Conf#: [id number] DID#: [id number]
[2017-02-25] MEDS ORDERED: EPOETIN 10000 UNITS/ML (NON ESRD/NON ONCOLOGY) SC SCH (10:00)
--- NOTE | 2017-02-25 11:13 | CONS ---
Date/Time of Note Date/Time of Note DATE: 02/25/17 TIME: 11:12 Consult Date/Type/Reason Admit Date/Time February 18, 2017 at 18:41 Initial Consult Date 02/19/17 Type of Consultation: pulmonary Subjective Patient comfortable this morning no new events Objective Vital Signs Date Time Temp Pulse Resp B/P Pulse Ox O2 Delivery O2 Flow Rate FiO2 02/25/17 11:02 98.4 73 18 165/85 98 02/25/17 09:25 30 Intake and Output 02/24/17 02/24/17 02/25/17 15:00 23:00 07:00 Intake Total 440 ml 480 ml Output Total 20 ml Balance 440 ml 460 ml Exam Exam PHYSICAL EXAMINATION GENERAL: Elderly gentleman, on mechanical ventilation, VITAL SIGNS: see below. HEENT: Pupils equal, round, and reactive to light. Tracheostomy site clean and intact. CARDIAC: S1, S2, 1/6 systolic ejection murmur CHEST: Diminished air entry bilaterally. ABDOMEN: Mildly distended. Bowel sounds present EXTREMITIES: No cyanosis, clubbing edema +1 NEUROLOGIC: Generalized weakness Results/Medications Result Diagram: 02/25/17 0540 02/25/17 0540 Results 24 hrs Laboratory Tests Test 02/25/17 05:40 White Blood Count 6.9 Red Blood Count 3.18 L Hemoglobin 9.4 L Hematocrit 33.7 L Mean Corpuscular Volume 106.0 H Mean Corpuscular Hemoglobin 29.6 Mean Corpuscular Hemoglobin Concent 27.9 L Red Cell Distribution Width 17.6 H Platelet Count 375 Mean Platelet Volume 8.7 Neutrophils % 73.7 Lymphocytes % 12.6 L Monocytes % 3.8 Eosinophils % 3.5 Basophils % 0.3 Nucleated Red Blood Cells % 0.0 Neutrophils # 5.1 Lymphocytes # 0.9 Monocytes # 0.3 Eosinophils # 0.2 Basophils # 0.0 Nucleated Red Blood Cells # 0.0 Sodium Level 144 Potassium Level 4.5 Chloride Level 110 Carbon Dioxide Level 31 Anion Gap 8 Blood Urea Nitrogen 25 H Creatinine 1.63 H Glucose Level 88 Calcium Level 8.6 Phosphorus Level 3.6 Magnesium Level 2.4 Medications Current Medications Acetaminophen (Tylenol Tab) 650 mg Q4H PRN GTB MILD PAIN LEVEL 1-3; Start at 19:00 Ascorbic Acid (Vitamin C) 500 mg BID GTB Last administered on 02/23/17 09:17; Admin Dose 500 MG; Start 02/18/17 at 21:00 Bisacodyl (Dulcolax Supp) 10 mg Q48H [place] ; Start 02/18/17 at 19:00 Carbidopa/Levodopa (Sinemet (25/ 100)) 1 tab TID GTB Last administered on 13:28; Admin Dose 1 TAB; Start 02/18/17 at 21:00 Chlorhexidine Gluconate (Peridex) 15 ml BID MM Last administered on 02/25/17 08 :43; Admin Dose 15 ML; Start 02/18/17 at 21:00 Clopidogrel Bisulfate (plaVIX) 75 mg DAILY GTB Last administered on 02/23/17 09 :17; Admin Dose 75 MG; Start 02/19/17 at 09:00 Donepezil HCl (Aricept) 10 mg QHS GTB Last administered on 02/22/17 21:00; Admin Dose 10 MG; Start 02/18/17 at 21:00 Epoetin Vasyl (Epogen (Esrd)) 10,000 units DAILY@17 SC Last administered on 16:55; Admin Dose 10,000 UNITS; Start 02/19/17 at 17:00 Folic Acid (Folic Acid) 1 mg DAILY GTB Last administered on 02/23/17 09:17; Admin Dose 1 MG; Start 02/19/17 at 09:00 Lactobacillus Acidophilus/ Rhamnosus (Culturelle) 1 cap QHS GTB Last administered on 02/22/17 22:28; Admin Dose 1 CAP; Start 02/18/17 at 21:00 Magnesium Hydroxide (Milk Of Mag) 30 ml Q4H GTB Last administered on 02/23/17 11:55; Admin Dose 30 ML; Start 02/18/17 at 19:00 Memantine (Namenda) 5 mg DAILY GTB Last administered on 02/23/17 09:16; Admin Dose 5 MG; Start 02/19/17 at 09:00 Metoprolol Tartrate (Lopressor) 25 mg Q12H GTB Last administered on 02/23/17 06 :27; Admin Dose 25 MG; Start 02/18/17 at 19:00 Potassium Chloride (Potassium Chloride Pwd/Soln) 20 meq DAILY GTB Last administered on 02/23/17 09:16; Admin Dose 20 MEQ; Start 02/19/17 at 09:00 Pramipexole (Mirapex) 0.5 mg DAILY GTB Last administered on 02/23/17 09:16; Admin Dose 0.5 MG; Start 02/19/17 at 09:00 Docusate Sodium (Colace Liquid Cup) 100 mg BID GTB Last administered on 09:14; Admin Dose 100 MG; Start 02/18/17 at 21:00 Ferrous Sulfate (Feosol Liquid Cup) 300 mg BID GTB Last administered on 09:17; Admin Dose 300 MG; Start 02/18/17 at 21:00 Heparin Sodium (Porcine) (Heparin (5000 Units/0.5 ml)) 5,000 unit BID SC Last administered on 02/25/17 08:47; Admin Dose 5,000 UNIT; Start 02/18/17 at 21:00 Sodium Biphosphate/ Sodium Phosphate (Fleet Enema) 118 ml Q72H PRN [place] CONSTIPATION; Start 02/18/17 at 20:30 Atorvastatin Calcium (Lipitor) 5 mg DAILY@21 PO Last administered on 02/22/17 22:28; Admin Dose 5 MG; Start 02/18/17 at 21:00 Nystatin (Nystatin Powder) 1 applic BID TOP Last administered on 02/25/17 08:44 ; Admin Dose 1 APPLIC; Start 02/20/17 at 09:00 Nystatin (Nystatin Powder) 1 applic BID PRN TOP NOTE; Start 02/20/17 at 00:30 Citric Acid/ Sodium Citrate (Bicitra) 30 ml BID GTB Last administered on 09:20; Admin Dose 30 ML; Start 02/21/17 at 09:00 Betamethasone/ Clotrimazole (Lotrisone Cr) 1 applic BID TOP Last administered on 02/25/17 08:43; Admin Dose 1 APPLIC; Start 02/21/17 at 21:00 Furosemide 40 mg 40 mg BID GTB Last administered on 02/23/17 09:17; Admin Dose 40 MG; Start 02/22/17 at 09:00 Potassium Chloride/Dextrose/ Sod Cl (D5-1/2ns + KCl 10 Meq) 1,000 ml @ 40 mls/ hr Q24H IV Last administered on 02/24/17 14:03; Admin Dose 40 MLS/HR; Start 02/23/17 at 18:00 Epoetin Vasyl (Epogen (Non Esrd/Non Oncology)) 10,000 units ONCE SC Last administered on 02/25/17 10:23; Admin Dose 10,000 UNITS; Start 02/25/17 at 10:00 ; Stop 02/25/17 at 23:00 Assessment/Plan Chief Complaint/Hosp Course Assessment 1. Vent dependent respiratory failure 2. Healthcare associated pneumonia and urinary tract infection 3. Dysphagia with G-tube 4. History of dementia 5. Chronic anemia 6. Mild renal insufficiency Plan 1. Continue antibiotics 2. Continue vent support 3. Tube feeding as tolerated 4. DVT GI prophylaxis Disposition Consider transfer back to [facility] facility Problems: JARED CLAIRE MD, [facility] February 25, 2017 11:13
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
[2017-02-25] MEDS: D5W-0.45 NACL + KCL 10 MEQ 1,000 ML IV SCH ×2 (15:17→18:00)
[2017-02-25] MEDS ORDERED: hydrALAzine 20 MG INJ IV PRN (15:30)
[2017-02-25] MEDS: EPOETIN 10000 UNITS/1 ML INJ (ESRD) SC SCH (17:04)
--- NOTE | 2017-02-25 18:30 | CONS ---
Date/Time of Note Date/Time of Note DATE: 02/25/17 TIME: 18:29 Assessment/Plan Assessment/Plan Additional Assessment/Plan Assessment/Plan Assessment/Plan Additional Assessment/Plan ASSESSMENT: 1. Sepsis, most probably related to urinary tract infection. 2. Malfunctioning G-tube. 24 [place] G-tube placed, patient is tolerating feeding now 3. Contact dermatitis around the G-tube site. 4. Vent-dependent respiratory failure. 5. Chronic kidney disease. 6. Advanced Parkinson disease. 7. Hypertension. 8. Diabetes mellitus. 9. Coronary artery disease. 10. Anemia. 11. Contact dermatitis improved Plan Continue present care Continue Lotrisone for a few more days. If the leakage continues then will have to change into GJ tube. G-tube location as in the difficult position in between fold making it difficult for the external bumper to appropriately position Patient G-tube popped off Patient was seen yesterday 02/24/2017 and this dictation is for yesterday. Consultation Date/Type/Reason Admit Date/Time February 18, 2017 at 18:41 Initial Consult Date 02/19/17 Type of Consultation: id 24 HR Interval Summary Subjective hx not possible: pt non-verbal Constitutional: no complaints Exam/Review of Systems Vital Signs Vitals Vital Signs Date Time Temp Pulse Resp B/P Pulse Ox O2 Delivery O2 Flow Rate FiO2 02/25/17 17:27 72 18 99 02/25/17 17:11 146/64 02/25/17 15:40 30 02/25/17 14:53 98.4 Intake and Output 02/24/17 02/24/17 02/25/17 15:00 23:00 07:00 Intake Total 440 ml 480 ml Output Total 20 ml Balance 440 ml 460 ml Exam Constitutional: alert, oriented, well developed Psych: nl mood/affect, no complaints Head: atraumatic, normocephalic Eyes: EOMI, PERRL, nl conjunctiva, nl lids, nl sclera ENMT: nl external ears & nose, nl lips & teeth, nl nasal mucosa & septum Neck: non-tender, supple Respiratory: clear to auscultation, normal air movement Cardiovascular: nl pulses, regular rate and rhythm Gastrointestinal: nl liver, spleen, non-tender, soft Musculoskeletal: nl extremities to inspection, nl gait and stance Extremities: normal pulses Neurological: [employer] II-XII intact, nl mental status, nl speech, nl strength Skin: nl turgor, No rash or lesions Lymph: nl lymph nodes Results Result Diagram: 02/25/17 0540 02/25/17 0540 Results 24 hrs Laboratory Tests Test 02/25/17 05:40 White Blood Count 6.9 Red Blood Count 3.18 L Hemoglobin 9.4 L Hematocrit 33.7 L Mean Corpuscular Volume 106.0 H Mean Corpuscular Hemoglobin 29.6 Mean Corpuscular Hemoglobin Concent 27.9 L Red Cell Distribution Width 17.6 H Platelet Count 375 Mean Platelet Volume 8.7 Neutrophils % 73.7 Lymphocytes % 12.6 L Monocytes % 3.8 Eosinophils % 3.5 Basophils % 0.3 Nucleated Red Blood Cells % 0.0 Neutrophils # 5.1 Lymphocytes # 0.9 Monocytes # 0.3 Eosinophils # 0.2 Basophils # 0.0 Nucleated Red Blood Cells # 0.0 Sodium Level 144 Potassium Level 4.5 Chloride Level 110 Carbon Dioxide Level 31 Anion Gap 8 Blood Urea Nitrogen 25 H Creatinine 1.63 H Glucose Level 88 Calcium Level 8.6 Phosphorus Level 3.6 Magnesium Level 2.4 Medications Medications Current Medications Acetaminophen (Tylenol Tab) 650 mg Q4H PRN GTB MILD PAIN LEVEL 1-3; Start at 19:00 Ascorbic Acid (Vitamin C) 500 mg BID GTB Last administered on 02/23/17 09:17; Admin Dose 500 MG; Start 02/18/17 at 21:00 Bisacodyl (Dulcolax Supp) 10 mg Q48H [place] ; Start 02/18/17 at 19:00 Carbidopa/Levodopa (Sinemet (25/ 100)) 1 tab TID GTB Last administered on 13:28; Admin Dose 1 TAB; Start 02/18/17 at 21:00 Chlorhexidine Gluconate (Peridex) 15 ml BID MM Last administered on 02/25/17 08 :43; Admin Dose 15 ML; Start 02/18/17 at 21:00 Clopidogrel Bisulfate (plaVIX) 75 mg DAILY GTB Last administered on 02/23/17 09 :17; Admin Dose 75 MG; Start 02/19/17 at 09:00 Donepezil HCl (Aricept) 10 mg QHS GTB Last administered on 02/22/17 21:00; Admin Dose 10 MG; Start 02/18/17 at 21:00 Epoetin Vasyl (Epogen (Esrd)) 10,000 units DAILY@17 SC Last administered on 17:04; Admin Dose 10,000 UNITS; Start 02/19/17 at 17:00 Folic Acid (Folic Acid) 1 mg DAILY GTB Last administered on 02/23/17 09:17; Admin Dose 1 MG; Start 02/19/17 at 09:00 Lactobacillus Acidophilus/ Rhamnosus (Culturelle) 1 cap QHS GTB Last administered on 02/22/17 22:28; Admin Dose 1 CAP; Start 02/18/17 at 21:00 Magnesium Hydroxide (Milk Of Mag) 30 ml Q4H GTB Last administered on 02/23/17 11:55; Admin Dose 30 ML; Start 02/18/17 at 19:00 Memantine (Namenda) 5 mg DAILY GTB Last administered on 02/23/17 09:16; Admin Dose 5 MG; Start 02/19/17 at 09:00 Metoprolol Tartrate (Lopressor) 25 mg Q12H GTB Last administered on 02/23/17 06 :27; Admin Dose 25 MG; Start 02/18/17 at 19:00 Potassium Chloride (Potassium Chloride Pwd/Soln) 20 meq DAILY GTB Last administered on 02/23/17 09:16; Admin Dose 20 MEQ; Start 02/19/17 at 09:00 Pramipexole (Mirapex) 0.5 mg DAILY GTB Last administered on 02/23/17 09:16; Admin Dose 0.5 MG; Start 02/19/17 at 09:00 Docusate Sodium (Colace Liquid Cup) 100 mg BID GTB Last administered on 09:14; Admin Dose 100 MG; Start 02/18/17 at 21:00 Ferrous Sulfate (Feosol Liquid Cup) 300 mg BID GTB Last administered on 09:17; Admin Dose 300 MG; Start 02/18/17 at 21:00 Heparin Sodium (Porcine) (Heparin (5000 Units/0.5 ml)) 5,000 unit BID SC Last administered on 02/25/17 08:47; Admin Dose 5,000 UNIT; Start 02/18/17 at 21:00 Sodium Biphosphate/ Sodium Phosphate (Fleet Enema) 118 ml Q72H PRN [place] CONSTIPATION; Start 02/18/17 at 20:30 Atorvastatin Calcium (Lipitor) 5 mg DAILY@21 PO Last administered on 02/22/17 22:28; Admin Dose 5 MG; Start 02/18/17 at 21:00 Nystatin (Nystatin Powder) 1 applic BID TOP Last administered on 02/25/17 08:44 ; Admin Dose 1 APPLIC; Start 02/20/17 at 09:00 Nystatin (Nystatin Powder) 1 applic BID PRN TOP NOTE; Start 02/20/17 at 00:30 Citric Acid/ Sodium Citrate (Bicitra) 30 ml BID GTB Last administered on 09:20; Admin Dose 30 ML; Start 02/21/17 at 09:00 Betamethasone/ Clotrimazole (Lotrisone Cr) 1 applic BID TOP Last administered on 02/25/17 08:43; Admin Dose 1 APPLIC; Start 02/21/17 at 21:00 Furosemide 40 mg 40 mg BID GTB Last administered on 02/23/17 09:17; Admin Dose 40 MG; Start 02/22/17 at 09:00 Potassium Chloride/Dextrose/ Sod Cl (D5-1/2ns + KCl 10 Meq) 1,000 ml @ 40 mls/ hr Q24H IV Last administered on 02/25/17 15:17; Admin Dose 40 MLS/HR; Start 02/23/17 at 18:00 Epoetin Vasyl (Epogen (Non Esrd/Non Oncology)) 10,000 units ONCE SC Last administered on 02/25/17 10:23; Admin Dose 10,000 UNITS; Start 02/25/17 at 10:00 ; Stop 02/25/17 at 23:00 Hydralazine HCl (Apresoline) 10 mg Q4H PRN IV Elevated BP Last administered on 02/25/17 15:13; Admin Dose 10 MG; Start 02/25/17 at 15:30 SYLWIA SY MD February 25, 2017 18:30
--- NOTE | 2017-02-25 18:31 | CONS ---
Date/Time of Note Date/Time of Note DATE: 02/25/17 TIME: 18:30 Assessment/Plan Assessment/Plan Additional Assessment/Plan ASSESSMENT: 1. Sepsis, most probably related to urinary tract infection. 2. Malfunctioning G-tube. 24 Setswana G-tube placed, patient is tolerating feeding now 3. Contact dermatitis around the G-tube site. 4. Vent-dependent respiratory failure. 5. Chronic kidney disease. 6. Advanced Parkinson disease. 7. Hypertension. 8. Diabetes mellitus. 9. Coronary artery disease. 10. Anemia. 11. Contact dermatitis improved Plan Continue present care Continue Lotrisone for a few more days. If the leakage continues then will have to change into GJ tube. G-tube location as in the difficult position in between fold making it difficult for the external bumper to appropriately position New 24 replacement G-tube placed Resume feeding through the G-tube now Consultation Date/Type/Reason Admit Date/Time February 18, 2017 at 18:41 Initial Consult Date 02/19/17 Type of Consultation: id 24 HR Interval Summary Subjective hx not possible: pt non-verbal Exam/Review of Systems Vital Signs Vitals Vital Signs Date Time Temp Pulse Resp B/P Pulse Ox O2 Delivery O2 Flow Rate FiO2 02/25/17 17:27 72 18 99 02/25/17 17:11 146/64 02/25/17 15:40 30 02/25/17 14:53 98.4 Intake and Output 02/24/17 02/24/17 02/25/17 15:00 23:00 07:00 Intake Total 440 ml 480 ml Output Total 20 ml Balance 440 ml 460 ml Exam Constitutional: alert, oriented, well developed Psych: nl mood/affect, no complaints Head: atraumatic, normocephalic Eyes: EOMI, PERRL, nl conjunctiva, nl lids, nl sclera ENMT: nl external ears & nose, nl lips & teeth, nl nasal mucosa & septum Neck: non-tender, supple Respiratory: clear to auscultation, normal air movement Cardiovascular: nl pulses, regular rate and rhythm Gastrointestinal: nl liver, spleen, non-tender, soft Musculoskeletal: nl extremities to inspection, nl gait and stance Extremities: normal pulses Neurological: P[employer]OT [employer] II-XII intact, nl mental status, nl speech, nl strength Skin: nl turgor, No rash or lesions Lymph: nl lymph nodes Results Result Diagram: 02/25/17 0540 02/25/17 0540 Results 24 hrs Laboratory Tests Test 02/25/17 05:40 White Blood Count 6.9 Red Blood Count 3.18 L Hemoglobin 9.4 L Hematocrit 33.7 L Mean Corpuscular Volume 106.0 H Mean Corpuscular Hemoglobin 29.6 Mean Corpuscular Hemoglobin Concent 27.9 L Red Cell Distribution Width 17.6 H Platelet Count 375 Mean Platelet Volume 8.7 Neutrophils % 73.7 Lymphocytes % 12.6 L Monocytes % 3.8 Eosinophils % 3.5 Basophils % 0.3 Nucleated Red Blood Cells % 0.0 Neutrophils # 5.1 Lymphocytes # 0.9 Monocytes # 0.3 Eosinophils # 0.2 Basophils # 0.0 Nucleated Red Blood Cells # 0.0 Sodium Level 144 Potassium Level 4.5 Chloride Level 110 Carbon Dioxide Level 31 Anion Gap 8 Blood Urea Nitrogen 25 H Creatinine 1.63 H Glucose Level 88 Calcium Level 8.6 Phosphorus Level 3.6 Magnesium Level 2.4 Medications Medications Current Medications Acetaminophen (Tylenol Tab) 650 mg Q4H PRN GTB MILD PAIN LEVEL 1-3; Start at 19:00 Ascorbic Acid (Vitamin C) 500 mg BID GTB Last administered on 02/23/17 09:17; Admin Dose 500 MG; Start 02/18/17 at 21:00 Bisacodyl (Dulcolax Supp) 10 mg Q48H [place] ; Start 02/18/17 at 19:00 Carbidopa/Levodopa (Sinemet (25/ 100)) 1 tab TID GTB Last administered on 13:28; Admin Dose 1 TAB; Start 02/18/17 at 21:00 Chlorhexidine Gluconate (Peridex) 15 ml BID MM Last administered on 02/25/17 08 :43; Admin Dose 15 ML; Start 02/18/17 at 21:00 Clopidogrel Bisulfate (plaVIX) 75 mg DAILY GTB Last administered on 02/23/17 09 :17; Admin Dose 75 MG; Start 02/19/17 at 09:00 Donepezil HCl (Aricept) 10 mg QHS GTB Last administered on 02/22/17 21:00; Admin Dose 10 MG; Start 02/18/17 at 21:00 Epoetin Vasyl (Epogen (Esrd)) 10,000 units DAILY@17 SC Last administered on 17:04; Admin Dose 10,000 UNITS; Start 02/19/17 at 17:00 Folic Acid (Folic Acid) 1 mg DAILY GTB Last administered on 02/23/17 09:17; Admin Dose 1 MG; Start 02/19/17 at 09:00 Lactobacillus Acidophilus/ Rhamnosus (Culturelle) 1 cap QHS GTB Last administered on 02/22/17 22:28; Admin Dose 1 CAP; Start 02/18/17 at 21:00 Magnesium Hydroxide (Milk Of Mag) 30 ml Q4H GTB Last administered on 02/23/17 11:55; Admin Dose 30 ML; Start 02/18/17 at 19:00 Memantine (Namenda) 5 mg DAILY GTB Last administered on 02/23/17 09:16; Admin Dose 5 MG; Start 02/19/17 at 09:00 Metoprolol Tartrate (Lopressor) 25 mg Q12H GTB Last administered on 02/23/17 06 :27; Admin Dose 25 MG; Start 02/18/17 at 19:00 Potassium Chloride (Potassium Chloride Pwd/Soln) 20 meq DAILY GTB Last administered on 02/23/17 09:16; Admin Dose 20 MEQ; Start 02/19/17 at 09:00 Pramipexole (Mirapex) 0.5 mg DAILY GTB Last administered on 02/23/17 09:16; Admin Dose 0.5 MG; Start 02/19/17 at 09:00 Docusate Sodium (Colace Liquid Cup) 100 mg BID GTB Last administered on 09:14; Admin Dose 100 MG; Start 02/18/17 at 21:00 Ferrous Sulfate (Feosol Liquid Cup) 300 mg BID GTB Last administered on 09:17; Admin Dose 300 MG; Start 02/18/17 at 21:00 Heparin Sodium (Porcine) (Heparin (5000 Units/0.5 ml)) 5,000 unit BID SC Last administered on 02/25/17 08:47; Admin Dose 5,000 UNIT; Start 02/18/17 at 21:00 Sodium Biphosphate/ Sodium Phosphate (Fleet Enema) 118 ml Q72H PRN [place] CONSTIPATION; Start 02/18/17 at 20:30 Atorvastatin Calcium (Lipitor) 5 mg DAILY@21 PO Last administered on 02/22/17 22:28; Admin Dose 5 MG; Start 02/18/17 at 21:00 Nystatin (Nystatin Powder) 1 applic BID TOP Last administered on 02/25/17 08:44 ; Admin Dose 1 APPLIC; Start 02/20/17 at 09:00 Nystatin (Nystatin Powder) 1 applic BID PRN TOP NOTE; Start 02/20/17 at 00:30 Citric Acid/ Sodium Citrate (Bicitra) 30 ml BID GTB Last administered on 09:20; Admin Dose 30 ML; Start 02/21/17 at 09:00 Betamethasone/ Clotrimazole (Lotrisone Cr) 1 applic BID TOP Last administered on 02/25/17 08:43; Admin Dose 1 APPLIC; Start 02/21/17 at 21:00 Furosemide 40 mg 40 mg BID GTB Last administered on 02/23/17 09:17; Admin Dose 40 MG; Start 02/22/17 at 09:00 Potassium Chloride/Dextrose/ Sod Cl (D5-1/2ns + KCl 10 Meq) 1,000 ml @ 40 mls/ hr Q24H IV Last administered on 02/25/17 15:17; Admin Dose 40 MLS/HR; Start 02/23/17 at 18:00 Epoetin Vasyl (Epogen (Non Esrd/Non Oncology)) 10,000 units ONCE SC Last administered on 02/25/17 10:23; Admin Dose 10,000 UNITS; Start 02/25/17 at 10:00 ; Stop 02/25/17 at 23:00 Hydralazine HCl (Apresoline) 10 mg Q4H PRN IV Elevated BP Last administered on 02/25/17 15:13; Admin Dose 10 MG; Start 02/25/17 at 15:30 SYLWIA SY MD February 25, 2017 18:31
--- NOTE | 2017-02-25 19:48 | PN ---
DATE: 02/25/2017 CARDIOLOGY FOLLOWUP SUBJECTIVE: Discussed with the staff. The patient remains in sinus rhythm with atrial fibrillation . Patient is status post trach on the vent. The patient remains nonverbal. The patient's blood pre ssure has been elevated. Discussed with the staff. MEDICATIONS: Reviewed as per medication reconciliation, personally reviewed. Still unable to take any p.o. medications. PHYSICAL EXAMINATION: VITAL SIGNS: Temperature 98.4, heart rate of 69, blood pressure 190/80, respiration rate of 20, sat urating 98%. HEENT: Normocephalic, atraumatic. NECK: Status post tracheostomy, on the vent. CARDIOVASCULAR: Regular rate and rhythm, systolic murmur. PULMONARY: Anteriorly with no wheezes. GASTROINTESTINAL: Status post previous PEG. EXTREMITIES: Positive edema. NEUROLOGIC: Unresponsive to answering questions. PSYCHIATRIC: Appeared to be calm. LABORATORY: Sodium 144, potassium 4.5, BUN 25, creatinine 1.63, glucose of 88. WBC of 6.9, hemoglo bin 9.8, platelets 375. ASSESSMENT AND PLAN: 1. History of paroxysmal atrial fibrillation, currently in sinus rhythm. 2. Congestive heart failure, currently appears to be stable. 3. Hypertension, under poor control secondary to unable to take p.o. medication. Will start the pa tient on hydralazine p.r.n. 4. Abdominal cellulitis, on antibiotics. 5. Dysphagia. 6. Anemia. 7. Respiratory failure, status post tracheostomy, vent dependent. RECOMMENDATIONS: We will continue with the current cardiac care, p.o. medication on hold due to dotty lulitis ____ . Will start the patient on hydralazine. Monitor on telemetry and respiratory care wi ll be continued. Dictated By: MILAGROS LEE/NTS Conf#: [id number] DID#: [id number]
[2017-02-25] MEDS: METOPROLOL 25 MG TAB GTB SCH (21:30)
[2017-02-25] MEDS: ATORVASTATIN 10 MG TAB PO SCH (21:31)
[2017-02-25] MEDS: LACTOBACILLUS RHAMNOSUS CAP GTB SCH (21:32)
[2017-02-25] MEDS: DONEPEZIL 10 MG TAB GTB SCH (21:44)
[2017-02-26] VITALS (19 sets, daily range): BP systolic 96–154; BP diastolic 62–65; PULSE 60–67; RESP 14–20
[2017-02-26] MEDS: MAGNESIUM HYDROXIDE 30ML CUP GTB SCH ×2 (04:04→07:18)
[2017-02-26] MEDS: METOPROLOL 25 MG TAB GTB SCH ×2 (07:19→19:06)
[2017-02-26 08:28] LABS: ADD SCAN DIFF NO
[2017-02-26 08:53] LABS: ABNORMAL IP MESSAGE 1; BASOPHILS % 0.5 % (0.0-2.0); EOSINOPHILS # 0.3 10^3/ul (0.0-0.5); HEMATOCRIT 33.2 % (37.0-47.0); HEMOGLOBIN 9.5 g/dl (12.0-16.0); LYMPHOCYTES # 0.8 10^3/ul (0.8-2.9); LYMPHOCYTES % 17.3 % (15.0-51.0); MEAN CORPUSCULAR HEMOGLOBIN 30.4 pg (29.0-33.0); MEAN CORPUSCULAR HGB CONC 28.6 g/dl (32.0-37.0); MEAN CORPUSCULAR VOLUME 106.4 fl (82.0-101.0); MEAN PLATELET VOLUME 8.8 fl (7.4-10.4); MONOCYTE # 0.1 10^3/ul (0.3-0.9); MONOCYTES % 2.8 % (0.0-11.0); NEUTROPHILS % 68.8 % (39.0-77.0); PLATELET COUNT 324 10^3/UL (140-415); RED BLOOD COUNT 3.12 10^6/ul (4.20-5.40); RED CELL DISTRIBUTION WIDTH 17.5 % (11.5-14.5); WHITE BLOOD COUNT 4.3 10^3/ul (4.8-10.8)
[2017-02-26] MEDS: CITRIC ACID/SODIUM CITRATE 15 ML CUP GTB SCH (09:00)
[2017-02-26] MEDS: FERROUS SULFATE 60 MG/ML 5ML CUP GTB SCH (09:01)
[2017-02-26] MEDS: DOCUSATE SODIUM 10 MG/ML (10ML CUP) GTB SCH (09:01)
[2017-02-26] MEDS: PRAMIPEXOLE 0.25 MG TAB GTB SCH (09:02)
[2017-02-26] MEDS: FOLIC ACID 1 MG TAB GTB SCH (09:02)
[2017-02-26] MEDS: FUROSEMIDE 40 MG TAB GTB SCH (09:02)
[2017-02-26] MEDS: CHLORHEXIDINE GLUCONATE 15 ML UD CUP MM SCH (09:03)
[2017-02-26] MEDS: CARBIDOPA/LEVODOPA (25/100) TAB GTB SCH ×2 (09:03→12:08)
[2017-02-26] MEDS: CLOPIDOGREL 75 MG TAB GTB SCH (09:03)
[2017-02-26] MEDS: MEMANTINE 5 MG TAB GTB SCH (09:03)
[2017-02-26] MEDS: ASCORBIC ACID 500 MG TAB GTB SCH (09:03)
[2017-02-26] MEDS: BETAMETHASONE/CLOTRIMAZOLE 15 GM CR TOP SCH (09:04)
[2017-02-26] MEDS: NYSTATIN 30 GM POWDER BTL TOP SCH (09:04)
[2017-02-26] MEDS: HEPARIN 5,000 UNIT/0.5 ML VIAL SC SCH (09:05)
[2017-02-26 09:13] LABS: CALCIUM 8.4 mg/dl (8.4-10.2); CREATININE 1.68 mg/dl (0.44-1.00); MAGNESIUM 2.5 mg/dl (1.7-2.5); PHOSPHORUS 3.3 mg/dl (2.5-4.9); POTASSIUM 4.3 mmol/L (3.5-5.1)
--- NOTE | 2017-02-26 10:16 | PN ---
DATE: 02/26/2017 SUBJECTIVE: The patient had G-tube placed/exchange yesterday by Dr. Degroot. Currently on tube feed ing, tolerating well. No other events noted. No hemoptysis, hematemesis or hematochezia. The tommy ent continues to have diarrhea. OBJECTIVE: VITAL SIGNS: Blood pressure 150/62, respirations 16, pulse 75, temperature 99.2. HEENT: Head is normocephalic. Pupils are reactive to light. NECK: Supple. HEART: Regular rate. LUNGS: Show diminished breath sounds at the bases. ABDOMEN: Soft, nontender to palpation. No rebound or guarding. Positive PEG. EXTREMITIES: Negative for clubbing, cyanosis. No edema. DERMATOLOGIC: No rashes. MUSCULOSKELETAL: No joint effusions. NEUROLOGIC: No change in exam. MEDICATIONS: The patient's medications have been reviewed. LABORATORY DATA: Has been reviewed. Labs are pending. ASSESSMENT AND PLAN: 1. Sepsis secondary to urinary tract infection. The patient has completed antibiotic course. 2. Dysphagia. The patient is status post G-tube exchange. Currently, tolerating tube feeding, con tinue. 3. Abdominal cellulitis. Continue antifungal therapy. 4. Ventilator-dependent respiratory failure. Vent settings reviewed. Continue to monitor. 5. Chronic kidney disease stage IV. The patient's renal function has been fluctuating. Continue t o monitor. Follow up renal panel. 6. Acute congestive heart failure exacerbation. Etiology is systolic and diastolic. Continue curr ent diuretic regimen. 7. Parkinson's disease with encephalopathy. No change. 8. Hypertension. Continue current blood pressure regimen. 9. Anemia. Continue to monitor hemoglobin and hematocrit levels. 10. Mineral bone disorder. Continue to monitor calcium and phosphorus levels. 11. Decubitus wound. Continue wound care. 12. Gastrointestinal and deep venous thrombosis prophylaxis, proton pump inhibitor and heparin. 13. Diarrhea. We will hold stool softeners and monitor. Dictated By: OSMAR HERNANDEZ/RAYSA Conf#: [id number] DID#: [id number]
--- NOTE | 2017-02-26 11:58 | CONS ---
Date/Time of Note Date/Time of Note DATE: 02/26/17 TIME: 11:57 Consult Date/Type/Reason Admit Date/Time February 18, 2017 at 18:41 Initial Consult Date 02/19/17 Type of Consultation: pulmonary Subjective G-tube was replaced and is functioning well Objective Vital Signs Date Time Temp Pulse Resp B/P Pulse Ox O2 Delivery O2 Flow Rate FiO2 02/26/17 09:40 67 02/26/17 09:20 15 95 30 02/26/17 07:39 99.2 154/62 Intake and Output 02/25/17 02/25/17 02/26/17 15:00 23:00 07:00 Intake Total 600 ml 905 ml Balance 600 ml 905 ml Exam PHYSICAL EXAMINATION GENERAL: Elderly gentleman, on mechanical ventilation, VITAL SIGNS: see below. HEENT: Pupils equal, round, and reactive to light. Tracheostomy site clean and intact. CARDIAC: S1, S2, 1/6 systolic ejection murmur CHEST: Diminished air entry bilaterally. ABDOMEN: Mildly distended. Bowel sounds present EXTREMITIES: No cyanosis, clubbing edema +1 NEUROLOGIC: Generalized weakness Results/Medications Result Diagram: 02/26/17 0656 02/26/17 0656 Results 24 hrs Laboratory Tests Test 02/26/17 06:56 White Blood Count 4.3 #L Red Blood Count 3.12 L Hemoglobin 9.5 L Hematocrit 33.2 L Mean Corpuscular Volume 106.4 H Mean Corpuscular Hemoglobin 30.4 Mean Corpuscular Hemoglobin Concent 28.6 L Red Cell Distribution Width 17.5 H Platelet Count 324 Mean Platelet Volume 8.8 Neutrophils % 68.8 Lymphocytes % 17.3 Monocytes % 2.8 Eosinophils % 6.0 Basophils % 0.5 Nucleated Red Blood Cells % 0.0 Neutrophils # 3.0 Lymphocytes # 0.8 Monocytes # 0.1 L Eosinophils # 0.3 Basophils # 0.0 Nucleated Red Blood Cells # 0.0 Sodium Level 145 H Potassium Level 4.3 Chloride Level 110 Carbon Dioxide Level 31 Anion Gap 8 Blood Urea Nitrogen 23 H Creatinine 1.68 H Glucose Level 135 # Calcium Level 8.4 Phosphorus Level 3.3 Magnesium Level 2.5 Medications Current Medications Acetaminophen (Tylenol Tab) 650 mg Q4H PRN GTB MILD PAIN LEVEL 1-3; Start at 19:00 Ascorbic Acid (Vitamin C) 500 mg BID GTB Last administered on 02/26/17 09:03; Admin Dose 500 MG; Start 02/18/17 at 21:00 Bisacodyl (Dulcolax Supp) 10 mg Q48H [place] ; Start 02/18/17 at 19:00 Carbidopa/Levodopa (Sinemet (25/ 100)) 1 tab TID GTB Last administered on 09:03; Admin Dose 1 TAB; Start 02/18/17 at 21:00 Chlorhexidine Gluconate (Peridex) 15 ml BID MM Last administered on 02/26/17 09 :03; Admin Dose 15 ML; Start 02/18/17 at 21:00 Clopidogrel Bisulfate (plaVIX) 75 mg DAILY GTB Last administered on 02/26/17 09 :03; Admin Dose 75 MG; Start 02/19/17 at 09:00 Donepezil HCl (Aricept) 10 mg QHS GTB Last administered on 02/25/17 21:44; Admin Dose 10 MG; Start 02/18/17 at 21:00 Epoetin Vasyl (Epogen (Esrd)) 10,000 units DAILY@17 SC Last administered on 17:04; Admin Dose 10,000 UNITS; Start 02/19/17 at 17:00 Folic Acid (Folic Acid) 1 mg DAILY GTB Last administered on 02/26/17 09:02; Admin Dose 1 MG; Start 02/19/17 at 09:00 Lactobacillus Acidophilus/ Rhamnosus (Culturelle) 1 cap QHS GTB Last administered on 02/25/17 21:32; Admin Dose 1 CAP; Start 02/18/17 at 21:00 Magnesium Hydroxide (Milk Of Mag) 30 ml Q4H GTB Last administered on 02/26/17 07:18; Admin Dose 30 ML; Start 02/18/17 at 19:00; Status Future Hold Memantine (Namenda) 5 mg DAILY GTB Last administered on 02/26/17 09:03; Admin Dose 5 MG; Start 02/19/17 at 09:00 Metoprolol Tartrate (Lopressor) 25 mg Q12H GTB Last administered on 02/26/17 07 :19; Admin Dose 25 MG; Start 02/18/17 at 19:00 Potassium Chloride (Potassium Chloride Pwd/Soln) 20 meq DAILY GTB Last administered on 02/23/17 09:16; Admin Dose 20 MEQ; Start 02/19/17 at 09:00; Status Future Hold Pramipexole (Mirapex) 0.5 mg DAILY GTB Last administered on 02/26/17 09:02; Admin Dose 0.5 MG; Start 02/19/17 at 09:00 Docusate Sodium (Colace Liquid Cup) 100 mg BID GTB Last administered on 09:01; Admin Dose 100 MG; Start 02/18/17 at 21:00 Ferrous Sulfate (Feosol Liquid Cup) 300 mg BID GTB Last administered on 09:01; Admin Dose 300 MG; Start 02/18/17 at 21:00 Heparin Sodium (Porcine) (Heparin (5000 Units/0.5 ml)) 5,000 unit BID SC Last administered on 02/26/17 09:05; Admin Dose 5,000 UNIT; Start 02/18/17 at 21:00 Sodium Biphosphate/ Sodium Phosphate (Fleet Enema) 118 ml Q72H PRN [place] CONSTIPATION; Start 02/18/17 at 20:30 Atorvastatin Calcium (Lipitor) 5 mg DAILY@21 PO Last administered on 02/25/17 21:31; Admin Dose 5 MG; Start 02/18/17 at 21:00 Nystatin (Nystatin Powder) 1 applic BID TOP Last administered on 02/26/17 09:04 ; Admin Dose 1 APPLIC; Start 02/20/17 at 09:00 Nystatin (Nystatin Powder) 1 applic BID PRN TOP NOTE; Start 02/20/17 at 00:30 Citric Acid/ Sodium Citrate (Bicitra) 30 ml BID GTB Last administered on 09:00; Admin Dose 30 ML; Start 02/21/17 at 09:00 Betamethasone/ Clotrimazole (Lotrisone Cr) 1 applic BID TOP Last administered on 02/26/17 09:04; Admin Dose 1 APPLIC; Start 02/21/17 at 21:00 Furosemide (Lasix) 40 mg BID GTB Last administered on 02/26/17 09:02; Admin Dose 40 MG; Start 02/22/17 at 09:00 Hydralazine HCl (Apresoline) 10 mg Q4H PRN IV Elevated BP Last administered on 02/25/17t 15:13; Admin Dose 10 MG; Start 02/25/17 at 15:30 Assessment/Plan Chief Complaint/Hosp Course Assessment 1. Vent dependent respiratory failure 2. Healthcare associated pneumonia and urinary tract infection 3. Dysphagia with G-tube replaced. 4. History of dementia 5. Chronic anemia 6. Mild renal insufficiency Plan 1. Consider DC antibiotics 2. Continue vent support 3. Tube feeding as tolerated 4. DVT GI prophylaxis Disposition Discharge planning okay from pulmonary standpoint Problems: JARED CLAIRE MD, [facility] February 26, 2017 11:58
--- NOTE | 2017-02-26 13:44 | PN ---
DATE: 02/26/2017 CARDIOLOGY FOLLOWUP PROGRESS NOTE SUBJECTIVE: Discussed with the staff. Rhythm strip was reviewed. The patient remains in sinus rhy thm. The patient remains nonverbal status post tracheostomy, on the vent. MEDICATIONS: Reviewed. PHYSICAL EXAMINATION: VITAL SIGNS: Temperature 99.2, heart rate of 67, blood pressure 150/63, respiratory rate of 18, sat urating 95% on 30% oxygen. HEENT: Normocephalic, atraumatic. Eyes: Pupils are equal and round. NECK: Status post tracheostomy, on the vent. CARDIOVASCULAR: Regular rate and rhythm, no systolic murmur. PULMONARY: With mild rhonchi. GASTROINTESTINAL: Status post PEG placement. EXTREMITIES: Trivial edema. NEUROLOGIC: Does not answer my questions. LABORATORY: Shows WBC of 4.3, hemoglobin 9.4, platelets of 324. Sodium 145, potassium 4.3, BUN of 23, creatinine 0.65, glucose of 135. ASSESSMENT AND PLAN: 1. Status post sepsis. 2. G-tube malfunction and cellulitis status post the G-tube exchange. 3. History of paroxysmal atrial fibrillation, currently in sinus rhythm. 4. Respiratory failure, status post tracheostomy, vent dependent. 5. Chronic kidney disease. 6. Heart failure/fluid overload, currently appears to be stable on the current regimen. 7. Anemia. RECOMMENDATIONS: We will continue with the current cardiac care. Discharge planning is in process. Respiratory care will be continued. Dictated By: MILAGROS LEE/RAYSA Conf#: [id number] DID#: [id number] CC: OSMAR MONTAGUE DO;*EndCC*
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
[2017-02-26] MEDS: EPOETIN 10000 UNITS/1 ML INJ (ESRD) SC SCH (18:03)
--- NOTE | 2017-02-26 18:44 | CONS ---
Date/Time of Note Date/Time of Note DATE: 02/26/17 TIME: 18:42 Assessment/Plan Assessment/Plan Additional Assessment/Plan Assessment/Plan Additional Assessment/Plan ASSESSMENT: 1. Sepsis, most probably related to urinary tract infection. 2. Malfunctioning G-tube. 24 Lao G-tube placed, patient is tolerating feeding now 3. Contact dermatitis around the G-tube site. 4. Vent-dependent respiratory failure. 5. Chronic kidney disease. 6. Advanced Parkinson disease. 7. Hypertension. 8. Diabetes mellitus. 9. Coronary artery disease. 10. Anemia. 11. Contact dermatitis improved Plan Continue present care Continue Lotrisone for a few more days. If the leakage continues then will have to change into GJ tube. G-tube location as in the difficult position in between fold making it difficult for the external bumper to appropriately position New 24 replacement G-tube placed Resume feeding through the G-tube now, patient is tolerating feeding without any problem and this was confirmed with the medical staff services manager. Consultation Date/Type/Reason Admit Date/Time February 18, 2017 at 18:41 Initial Consult Date 02/19/17 Type of Consultation: ID [id number] HR Interval Summary Subjective hx not possible: pt non-verbal Constitutional: no complaints Exam/Review of Systems Vital Signs Vitals Vital Signs Date Time Temp Pulse Resp B/P Pulse Ox O2 Delivery O2 Flow Rate FiO2 02/26/17 17:51 65 16 96 30 02/26/17 15:38 99.0 150/65 Intake and Output 02/25/17 02/25/17 02/26/17 15:00 23:00 07:00 Intake Total 600 ml 905 ml Balance 600 ml 905 ml Exam Constitutional: alert, oriented, well developed Psych: nl mood/affect, no complaints Head: atraumatic, normocephalic Eyes: EOMI, PERRL, nl conjunctiva, nl lids, nl sclera ENMT: nl external ears & nose, nl lips & teeth, nl nasal mucosa & septum Neck: non-tender, supple Respiratory: clear to auscultation, normal air movement Cardiovascular: nl pulses, regular rate and rhythm Gastrointestinal: nl liver, spleen, non-tender, soft Musculoskeletal: nl extremities to inspection, nl gait and stance Extremities: normal pulses Neurological: ENERGY SCHEDULER II-XII intact, nl mental status, nl speech, nl strength Skin: nl turgor, No rash or lesions Lymph: nl lymph nodes Results Result Diagram: 02/26/17 0656 02/26/17 0656 Results 24 hrs Laboratory Tests Test 02/26/17 06:56 White Blood Count 4.3 #L Red Blood Count 3.12 L Hemoglobin 9.5 L Hematocrit 33.2 L Mean Corpuscular Volume 106.4 H Mean Corpuscular Hemoglobin 30.4 Mean Corpuscular Hemoglobin Concent 28.6 L Red Cell Distribution Width 17.5 H Platelet Count 324 Mean Platelet Volume 8.8 Neutrophils % 68.8 Lymphocytes % 17.3 Monocytes % 2.8 Eosinophils % 6.0 Basophils % 0.5 Nucleated Red Blood Cells % 0.0 Neutrophils # 3.0 Lymphocytes # 0.8 Monocytes # 0.1 L Eosinophils # 0.3 Basophils # 0.0 Nucleated Red Blood Cells # 0.0 Sodium Level 145 H Potassium Level 4.3 Chloride Level 110 Carbon Dioxide Level 31 Anion Gap 8 Blood Urea Nitrogen 23 H Creatinine 1.68 H Glucose Level 135 # Calcium Level 8.4 Phosphorus Level 3.3 Magnesium Level 2.5 Medications Medications Current Medications Acetaminophen (Tylenol Tab) 650 mg Q4H PRN GTB MILD PAIN LEVEL 1-3; Start at 19:00 Ascorbic Acid (Vitamin C) 500 mg BID GTB Last administered on 02/26/17 09:03; Admin Dose 500 MG; Start 02/18/17 at 21:00 Bisacodyl (Dulcolax Supp) 10 mg Q48H AL ; Start 02/18/17 at 19:00 Carbidopa/Levodopa (Sinemet (25/ 100)) 1 tab TID GTB Last administered on 12:08; Admin Dose 1 TAB; Start 02/18/17 at 21:00 Chlorhexidine Gluconate (Peridex) 15 ml BID MM Last administered on 02/26/17 09 :03; Admin Dose 15 ML; Start 02/18/17 at 21:00 Clopidogrel Bisulfate (plaVIX) 75 mg DAILY GTB Last administered on 02/26/17 09 :03; Admin Dose 75 MG; Start 02/19/17 at 09:00 Donepezil HCl (Aricept) 10 mg QHS GTB Last administered on 02/25/17 21:44; Admin Dose 10 MG; Start 02/18/17 at 21:00 Epoetin Vasyl (Epogen (Esrd)) 10,000 units DAILY@17 SC Last administered on 18:03; Admin Dose 10,000 UNITS; Start 02/19/17 at 17:00 Folic Acid (Folic Acid) 1 mg DAILY GTB Last administered on 02/26/17 09:02; Admin Dose 1 MG; Start 02/19/17 at 09:00 Lactobacillus Acidophilus/ Rhamnosus (Culturelle) 1 cap QHS GTB Last administered on 02/25/17 21:32; Admin Dose 1 CAP; Start 02/18/17 at 21:00 Magnesium Hydroxide (Milk Of Mag) 30 ml Q4H GTB Last administered on 02/26/17 07:18; Admin Dose 30 ML; Start 02/18/17 at 19:00; Status Future Hold Memantine (Namenda) 5 mg DAILY GTB Last administered on 02/26/17 09:03; Admin Dose 5 MG; Start 02/19/17 at 09:00 Metoprolol Tartrate (Lopressor) 25 mg Q12H GTB Last administered on 02/26/17 07 :19; Admin Dose 25 MG; Start 02/18/17 at 19:00 Potassium Chloride (Potassium Chloride Pwd/Soln) 20 meq DAILY GTB Last administered on 02/23/17 09:16; Admin Dose 20 MEQ; Start 02/19/17 at 09:00; Status Future Hold Pramipexole (Mirapex) 0.5 mg DAILY GTB Last administered on 02/26/17 09:02; Admin Dose 0.5 MG; Start 02/19/17 at 09:00 Docusate Sodium (Colace Liquid Cup) 100 mg BID GTB Last administered on 09:01; Admin Dose 100 MG; Start 02/18/17 at 21:00 Ferrous Sulfate (Feosol Liquid Cup) 300 mg BID GTB Last administered on 09:01; Admin Dose 300 MG; Start 02/18/17 at 21:00 Heparin Sodium (Porcine) (Heparin (5000 Units/0.5 ml)) 5,000 unit BID SC Last administered on 02/26/17 09:05; Admin Dose 5,000 UNIT; Start 02/18/17 at 21:00 Sodium Biphosphate/ Sodium Phosphate (Fleet Enema) 118 ml Q72H PRN AL CONSTIPATION; Start 02/18/17 at 20:30 Atorvastatin Calcium (Lipitor) 5 mg DAILY@21 PO Last administered on 02/25/17 21:31; Admin Dose 5 MG; Start 02/18/17 at 21:00 Nystatin (Nystatin Powder) 1 applic BID TOP Last administered on 02/26/17 09:04 ; Admin Dose 1 APPLIC; Start 02/20/17 at 09:00 Nystatin (Nystatin Powder) 1 applic BID PRN TOP NOTE; Start 02/20/17 at 00:30 Citric Acid/ Sodium Citrate (Bicitra) 30 ml BID GTB Last administered on 09:00; Admin Dose 30 ML; Start 02/21/17 at 09:00 Betamethasone/ Clotrimazole (Lotrisone Cr) 1 applic BID TOP Last administered on 02/26/17 09:04; Admin Dose 1 APPLIC; Start 02/21/17 at 21:00 Furosemide (Lasix) 40 mg BID GTB Last administered on 02/26/17 09:02; Admin Dose 40 MG; Start 02/22/17 at 09:00 Hydralazine HCl (Apresoline) 10 mg Q4H PRN IV Elevated BP Last administered on 02/25/17 15:13; Admin Dose 10 MG; Start 02/25/17 at 15:30 SYLIWA SY MD February 26, 2017 18:44
[2017-02-26] MEDS: BISACODYL 10 MG SUPP PR SCH (19:06)
--- NOTE | 2017-02-28 11:53 | DS ---
DATE OF ADMISSION: 02/18/2017 DATE OF DISCHARGE: 02/26/2017 HOSPITAL COURSE: This is an 86-year-old female with past medical history of advanced Alzheimer's de mentia, ventilator-dependent respiratory failure, chronic kidney disease stage IV, anemia, contractu res, Parkinson's disease, dysphagia, coronary artery disease, who was brought to [facility] due to G-tube malfunction. The patient was subsequently admitted to telemetry. In terms of patient's G-tube malfunction, she was seen by industrial workers, Dr. Degroot, underwent a G-tube exchange. Subsequently, the patient had a noted leak around the G-tube site, it was readjusted by Keon Degroot. The patient was able to tolerate tube feeding appropriately. The patient also noted to have a urinary tract infection and was seen by Dr. Chong, and was placed on antibiotic therapy and completed a course. The patient also had abdominal wall cellulitis due to fungal infection, was treated with topical antifungal therapy. The patient's other medical problem s including ventilator-dependent respiratory failure, chronic kidney disease, CHF, Parkinson's demen tia, encephalopathy, and hypertension were stable during the hospital course. The patient also had noted wounds which were being treated by wound care. Currently, at the time of discharge, the patie nt is stable, in no acute distress. FINAL DIAGNOSES: 1. Sepsis secondary to urinary tract infection. 2. G-tube malfunction, status post exchange. 3. Abdominal wall cellulitis. 4. Ventilator-dependent respiratory failure. 5. Chronic kidney disease stage IV. 6. Acute congestive heart failure exacerbation. 7. Advanced Parkinson's dementia with encephalopathy. 8. Coronary artery disease. 9. Hypertension. 10. Anemia. 11. Mineral bone disorder. 12. Wounds. CONDITION ON DISCHARGE: At time of discharge, the patient is stable, in no acute distress. FINAL MEDICATIONS: See reconciliation list. Please note I spent over 40 minutes of time preparing the patient's discharge. Dictated By: OSMAR HERNANDEZ/RAYSA Conf#: [id number] DID#: [id number]
== END 2017-02-26 20:30 | DRG 870 ==
LOC: E/R 14:54 → TEL 18:41
PROVIDERS: ADMIT Internal Medicine; ATTEND Internal Medicine
PROC: 5A1955Z Respiratory Ventilation, Greater than 96 Consecutive Hours (ICD-10-PCS; 2017-02-19)
PROC: 0D20XUZ Change Feeding Device in Upper Intestinal Tract, External Approach (ICD-10-PCS; principal; 2017-02-25)
DX: A41.9 Sepsis, unspecified organism (principal); G93.40 Encephalopathy, unspecified; Z99.11 Dependence on respirator [ventilator] status; I50.43 Acute on chronic combined systolic (congestive) and diastolic (congestive) heart failure; J44.9 Chronic obstructive pulmonary disease, unspecified; J96.10 Chronic respiratory failure, unspecified whether with hypoxia or hypercapnia; Z93.0 Tracheostomy status; N39.0 Urinary tract infection, site not specified; L03.311 Cellulitis of abdominal wall; I13.0 Hypertensive heart and chronic kidney disease with heart failure and stage 1 through stage 4 chronic kidney disease, or unspecified chronic kidney disease; N18.4 Chronic kidney disease, stage 4 (severe); K44.9 Diaphragmatic hernia without obstruction or gangrene; R16.1 Splenomegaly, not elsewhere classified; I25.10 Atherosclerotic heart disease of native coronary artery without angina pectoris; M61.58 Other ossification of muscle, other site; K57.30 Diverticulosis of large intestine without perforation or abscess without bleeding; M47.814 Spondylosis without myelopathy or radiculopathy, thoracic region; M47.817 Spondylosis without myelopathy or radiculopathy, lumbosacral region; G30.9 Alzheimer's disease, unspecified; F02.80 Dementia in other diseases classified elsewhere, unspecified severity, without behavioral disturbance, psychotic disturbance, mood disturbance, and anxiety; G20 Parkinson's disease; K94.29 Other complications of gastrostomy; Z99.2 Dependence on renal dialysis
CPT/HCPCS: 36415; 71010; 74176; 80048; 80053; 80061; 81001; 81003; 83605; 83735; 83880; 84100; 84484; 85025; 85610; 85730; 87040; 87075; 87081; 87086; 93005; 93306; 94002; 94003; 96365; 96366; 96367; J0360; J0692; J0885; J0886; J1644; J3370; J3480; J7030; J7070

== ENCOUNTER 2017-03-11 18:44 | Inpatient (IN) | payer MEDICARE ==
[~2017-03-11] VITALS: Ht 170.2 cm; Wt 89.5 kg
[~2017-03-11 18:44] MED LIST: ACET325T33 GTB; ASC500 GTB; BISA10SU75 PR; CHLO473M2 MM; CITR30SO GTB; CLOP75TA4 GTB; DOCU-159 GTB; DONE10TA7 GTB; EPO10ESRD SC; FER325 GTB; FLEETPED PR; FOLI-49 GTB; FURO40TA4 GTB; HEPA500021 IJ; LACT1CAP57 GTB; MAGN400O4 GTB; MEMA5TAB GTB; METO-448 GTB; POTA20PA23 GTB; PRAM0.5T GTB; SIMV5TAB50 GTB; SIN25100 GTB
[2017-03-11] MEDS ORDERED: SOD CHLORIDE 0.9% 1,000 ML IV STA (19:08)
[2017-03-11 19:51] LABS: ADD UMIC YES; URINE BILIRUBIN (Dip) NEGATIVE (NEGATIVE); URINE BLOOD (Dip) TRACE (NEGATIVE); URINE COLOR LT. YELLOW (YELLOW); URINE GLUCOSE (Dip) NEGATIVE (NEGATIVE); URINE KETONES (Dip) NEGATIVE (NEGATIVE); URINE LEUKOCYTE ESTERASE (Dip) TRACE (NEGATIVE); URINE NITRITE (Dip) POSITIVE (NEGATIVE); URINE TOTAL PROTEIN (Dip) 1+ (NEGATIVE); URINE UROBILINOGEN (Dip) 0.2 E.U./dL (0.1-1.0)
[2017-03-11 20:05] LABS: BACTERIA,URINE MANY
[2017-03-11 20:09] LABS: ADD SCAN DIFF NO
[2017-03-11 20:11] LABS: ABNORMAL IP MESSAGE 1; BASOPHILS % 0.3 % (0.0-2.0); EOSINOPHILS # 0.6 10^3/ul (0.0-0.5); EOSINOPHILS % 9.8 % (0.0-7.0); HEMATOCRIT 29.1 % (37.0-47.0); HEMOGLOBIN 8.1 g/dl (12.0-16.0); LYMPHOCYTES # 0.9 10^3/ul (0.8-2.9); LYMPHOCYTES % 14.4 % (15.0-51.0); MEAN CORPUSCULAR HEMOGLOBIN 30.5 pg (29.0-33.0); MEAN CORPUSCULAR HGB CONC 27.8 g/dl (32.0-37.0); MEAN CORPUSCULAR VOLUME 109.4 fl (82.0-101.0); MEAN PLATELET VOLUME 9.5 fl (7.4-10.4); MONOCYTE # 0.4 10^3/ul (0.3-0.9); MONOCYTES % 5.8 % (0.0-11.0); NEUTROPHIL # 4.2 10^3/ul (1.6-7.5); NEUTROPHILS % 69.2 % (39.0-77.0); PLATELET COUNT 416 10^3/UL (140-415); RED BLOOD COUNT 2.66 10^6/ul (4.20-5.40); RED CELL DISTRIBUTION WIDTH 20.3 % (11.5-14.5); WHITE BLOOD COUNT 6.1 10^3/ul (4.8-10.8)
[2017-03-11 20:28] LABS: ALBUMIN 2.2 g/dl (3.3-4.9)
[2017-03-11 20:29] LABS: POTASSIUM 4.2 mmol/L (3.5-5.1)
[2017-03-11 20:31] LABS: ALBUMIN/GLOBULIN RATIO 0.5; CREATININE 2.36 mg/dl (0.44-1.00); TOTAL PROTEIN 6.6 g/dl (6.1-8.1)
[2017-03-11 20:32] LABS: CALCIUM 8.9 mg/dl (8.4-10.2)
[2017-03-11] MEDS ORDERED: NEPH GTB (20:55)
[2017-03-11] MEDS ORDERED: CEFEPIME 1GM/50 ML (PMX) 50 ML IVPB ONE (22:00)
[2017-03-11] MEDS ORDERED: VANCOMYCIN 1 GM (PMX) 250 ML IVPB SCH (22:30)
[2017-03-11] MEDS ORDERED: NYSTATIN 15 GM CR TOP ONE (22:30)
[2017-03-11] MEDS ORDERED: SOD CHLORIDE 0.9% 1,000 ML IV ONE (22:30)
--- NOTE | 2017-03-11 22:34 | RADRPT ---
PROCEDURE: CT abdomen and pelvis without contrast. CLINICAL INDICATION: Redness and cellulitis along the anterior abdominal wall to. Possible absces s TECHNIQUE: CT scan of the abdomen and pelvis without contrast was performed. Sagittal and coronal reformatted images were obtained from the axial source images. CTDI = 23.70 mGy; DLP = 1348.09 mGy- cm COMPARISON: CT 02/18/2017 FINDINGS: Visualized lower thorax: Compressive atelectasis of the left greater than right lower lobes is marine lar to the prior study with changes of emphysema again noted. Small to moderate left larger than ri ght pleural effusions are similar to the previous study. Liver, gallbladder, pancreas and spleen: The liver is normal and size, contour and attenuation. Th ere is no evidence for a liver mass or ductal dilatation. The gallbladder is unremarkable. No comm on bile duct abnormality is demonstrated. The pancreas is unremarkable. Mild splenomegaly with acc essory splenules is again noted. Adrenal glands and genitourinary system: The adrenal glands are normal bilaterally. Bilateral renal cortex thinning likely medical renal disease without evidence of calculus or hydronephrosis. The u reters are unremarkable. A Collazo catheter is now present with the urinary bladder contracted around a. The uterus is atrophic compatible with age without ovarian or adnexal mass. No free fluid in th e cul-de-sac is present. Gastrointestinal system: A hiatal hernia is again noted, metallic type densities causing artifact i n the gastric fundus are now present of uncertain etiology possibly from a treatment procedure. The gastrostomy tube remains in good position, the scan at injury point is indurated with some subcutan eous fat thickening of the correlate with the provided history. However, there is no fluid collecti on to suggest an abscess. The subcutaneous fat on either side of the gastrostomy tube track is pres erved. The small bowel is normal in caliber with no ileus, obstruction or wall thickening. There is no evidence of appendicitis. 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 T here is no evidence for colitis or diverticulitis. Peritoneum, retroperitoneum, lymph nodes and vessels: The abdominal aorta is normal in caliber. The re is moderate aortic and iliac system atherosclerotic calcification. The inferior vena cava is unr emarkable. There is no evidence for adenopathy or mass. There is no ascites. No pneumoperitoneum o r intraperitoneal abscess is present Osseous structures and musculoskeletal findings: Demineralization is noted with multilevel thoracol umbar spondylosis but no evidence of acute osseous abnormality. Heterotopic ossification overlying the left hip is again seen . Diffuse muscle atrophy and nodularity of the subcutaneous fat of the l ower and abdominal wall again identified. RPTAT:HJJR IMPRESSION: 1. Induration of the skin and thickening of the subcutaneous fat along the gastrostomy tract is sim ilar to the prior study of 02/18/2017 but there is no evidence of abdominal wall or intraperitoneal abscess. 2. Metallic densities within the gastric fundus of the hiatal hernia cause artifact, findings possi kate related to therapy versus ingested material. 3. Stable bilateral pleural effusions and associated compressive atelectasis of the lower lobes. 4. Bilateral renal cortex thinning consistent with medical renal disease with interval placement of Collazo catheter the urinary bladder difficult to evaluate. 5. Extensive diverticular disease of the distal colon without evidence of diverticulitis. 6. Heterotopic ossification overlying the left hip is again noted with diffuse muscle atrophy presu mably related to paralysis. 7. Stable nonspecific lower anterior abdominal wall subcutaneous nodules. Physician Tonja Date Time Electronically viewed and signed by Physician Tonja on 03/11/2017 22:34 /
[2017-03-11] MEDS ORDERED: ACETAMINOPHEN 325 MG TAB PO PRN (23:00)
[2017-03-11] MEDS ORDERED: ONDANSETRON 4 MG INJ IV PRN (23:00)
[2017-03-11] MEDS ORDERED: ACETAMINOPHEN 325 MG TAB GTB ONE (23:06)
[2017-03-11] MEDS ORDERED: NA PHOSPHATE/BIPHOS 66.6 ML ENEMA PR PRN (23:30)
[2017-03-11] MEDS: MAGNESIUM HYDROXIDE 30ML CUP GTB SCH (23:30)
[2017-03-11] MEDS ORDERED: ACETAMINOPHEN 325 MG TAB GTB PRN (23:30)
[2017-03-11] MEDS: BISACODYL 10 MG SUPP PR SCH (23:30)
[2017-03-11] MEDS ORDERED: SOD CHLORIDE 0.9% 1,000 ML IV SCH (23:30)
[2017-03-11] MEDS: METOPROLOL 25 MG TAB GTB SCH (23:30)
[2017-03-12] VITALS (54 sets, daily range): BP systolic 56–171; BP diastolic 21–89; PULSE 36–127; RESP 14–37; TEMP 99.1; Ht 170.2 cm; Wt 89.5 kg
--- NOTE | 2017-03-12 00:13 | ERA ---
ER Documentation Chief Complaint Date/Time DATE: 03/12/17 TIME: 00:03 Chief Complaint g-tube wound check HPI This 86-year-old female was sent in for increasing redness and induration of her upper abdomen. She has a similar rash to her groin area. Her G-tube is still functional but the erythema surrounds it. She was sent with medical staff were worried that she does occasionally leak around the site and is likely secondary to the abdominal infection that she has on her skin. She is a chronic trach vent patient with virtually no mental status. She has been stable on her current vent settings and experienced no fevers. ROS Unobtainable Medications Home Meds Reported Medications Multivit/Ca Carb/B Cmplx/Fa* (Radhika-John*) 1 Tab Tab, 1 TAB GTB DAILY, TAB 03/11/17 Simvastatin* (Simvastatin*) 5 Mg Tablet, 5 MG GTB QHS, #30 TAB 02/18/17 Ascorbic Acid (Vitamin C) 500 Mg Tab, 500 MG GTB BID, TAB 02/18/17 Acetaminophen* (Tylenol*) 325 Mg Tablet, 650 MG GTB Q4H Y for PAIN LEVEL 0-10/10 , TAB FOR TEMP ABOVE 100 DEGREES F. 02/18/17 Carbidopa-Levodopa* (Sinemet*) 25-100 Mg Tab, 1 TAB GTB TID, TAB 02/18/17 Clopidogrel Bisulfate* (Clopidogrel Bisulfate*) 75 Mg Tablet, 75 MG GTB DAILY, # 30 TAB 02/18/17 Chlorhexidine Gluconate (Periogard) 473 Ml Mouthwash, 15 ML MM BID, BOTTLE 02/18/17 Memantine* (Namenda*) 5 Mg Tablet, 5 MG GTB QAM, #30 TAB 02/18/17 Pramipexole* (Pramipexole*) 0.5 Mg Tablet, 0.5 MG GTB DAILY, TAB 02/18/17 Magnesium Hydroxide* (Milk Of Magnesia*) 400 Mg/5 Ml Oral.susp, 30 ML GTB Q24H, ML 02/18/17 Metoprolol Tartrate* (Lopressor*) 25 Mg Tab, 25 MG GTB Q12H, #60 TAB HOLD FOR SBP BELOW 110 OR HR BELOW 60 02/18/17 Furosemide* (Furosemide*) 40 Mg Tablet, 40 MG GTB DAILY, TAB 02/18/17 Heparin Sodium,Porcine/Pf (HEPARIN SOD 5,000 UNIT/ 0.5 ML) 5,000 Unit/0.5 Ml Vial, 5000 UNIT IJ BID, VIAL 02/18/17 Folic Acid* (Folic Acid*) 1 Mg Tablet, 1 MG GTB DAILY, TAB 02/18/17 Sod Phosphate/Sod Biphosphate* (Fleet* Enema Pediatric) 66.6 Ml Soln, 118 ML GA Q72H Y for CONSTIPATION, ENEMA 02/18/17 Ferrous Sulfate* (Ferrous Sulfate*) 325 Mg Tabec, 325 MG GTB BID, TAB 02/18/17 Epoetin Vasyl (Epogen) 10,000 Units/Ml Soln, 47610 UNITS SC DAILY, VIAL MON,SAT,SAT. HOLD IF HGB ABOVE 12 02/18/17 Bisacodyl* (Bisacodyl*) 10 Mg Supp, 10 MG GA Q48H, SUPP 02/18/17 Donepezil* (Donepezil*) 10 Mg Tablet, 10 MG GTB QHS, #30 TAB 02/18/17 Docusate Sodium* (Docusate Sodium*) 100 Mg Capsule, 100 MG GTB BID, #60 CAP 02/18/17 Citric Acid/Sodium Citrate (Oracit Solution 30 Ml) 30 Ml Solution, 30 ML GTB BID 02/18/17 Lactobacillus Rhamnosus* (Culturelle*) 1 Each Cap.sprink, 1 CAP GTB QHS, CAP 02/18/17 Discontinued Reported Medications Potassium Chloride (Potassium Chloride) 20 Meq Packet, 20 MEQ GTB DAILY, PACKET 02/18/17 Allergies Allergies: Coded Allergies: No Known Allergies (Verified Allergy, Unknown, 03/11/17) PMhx/Soc History of Surgery: No Hx Neurological Disorder: Yes (parkinson's disease,dementia) Hx Respiratory Disorders: Yes (chronic rep. failure) Hx Cardiac Disorders: Yes (HTN) Hx Alcohol Use: No (unable to obtain patient non verbal) Hx Substance Use: No (unable to obtain patient non verbal) Hx Tobacco Use: No (unable to obtain patient non verbal) Physical Exam Vitals Vital Signs Date Time Temp Pulse Resp B/P Pulse Ox O2 Delivery O2 Flow Rate FiO2 03/11/17 22:10 73 17 128/96 99 Room Air 03/11/17 21:41 76 24 99 30 03/11/17 19:21 70 16 99 30 03/11/17 19:00 99.8 71 17 91/69 100 03/11/17 18:59 97.9 73 19 114/54 98 Physical Exam Const: [] No distress Head: Atraumatic Eyes: Normal Conjunctiva, PERRLA ENT: Normal External Ears, Nose and Mouth. Neck: Full range of motion.. Trach site clean dry intact. Resp: Clear to auscultation bilaterally with ventilated breath sounds Cardio: Regular rate and rhythm, no murmurs Abd: Soft, no obvious tenderness, large upper abdominal erythematous rash with the same appearance of a rash that she has in her groin area with some satellite lesions and appearance of Gillian infection, mild induration, erythematous upper abdominal area as mild calor compared to surrounding tissues , non distended. Normal bowel sounds Skin: No petechiae or rashes Back: No midline or flank tenderness Ext: No cyanosis, trace bilateral pedal edema, distal pulses intact all 4 extremities, Neur: Awake, patient is unable to cooperate with neuro exam secondary to chronic debility Psych: Normal Mood and Affect Result Diagram: 03/11/17192903/11/171929 Results 24 hrs Laboratory Tests Test 03/11/17 19:30 03/11/17 19:33 White Blood Count 6.110^3/ul Red Blood Count 2.6610^6/ul Hemoglobin 8.1g/dl Hematocrit 29.1% Mean Corpuscular Volume 109.4fl Mean Corpuscular Hemoglobin 30.5pg Mean Corpuscular Hemoglobin Concent 27.8g/dl Red Cell Distribution Width 20.3% Platelet Count 63304^3/UL Mean Platelet Volume 9.5fl Neutrophils % 69.2% Lymphocytes % 14.4% Monocytes % 5.8% Eosinophils % 9.8% Basophils % 0.3% Nucleated Red Blood Cells % 0.0/100WBC Neutrophils # 4.210^3/ul Lymphocytes # 0.910^3/ul Monocytes # 0.410^3/ul Eosinophils # 0.610^3/ul Basophils # 0.010^3/ul Nucleated Red Blood Cells # 0.010^3/ul Sodium Level 147mmol/L Potassium Level 4.2mmol/L Chloride Level 108mmol/L Carbon Dioxide Level 29mmol/L Anion Gap 14 Blood Urea Nitrogen 77mg/dl Creatinine 2.36mg/dl Glucose Level 78mg/dl Lactic Acid Level 1.3mmol/L Calcium Level 8.9mg/dl Total Bilirubin 0.0mg/dl Direct Bilirubin 0.00mg/dl Indirect Bilirubin 0.0mg/dl Aspartate Amino Transf (AST/SGOT) 16IU/L Alanine Aminotransferase (ALT/SGPT) 19IU/L Alkaline Phosphatase 112IU/L Total Protein 6.6g/dl Albumin 2.2g/dl Globulin 4.40g/dl Albumin/Globulin Ratio 0.50 Lipase 144U/L Urine Color LT. YELLOW Urine Clarity SLIGHTLY CLOUDY Urine pH 8.5 Urine Specific [place] 1.010 Urine Ketones NEGATIVE Urine Nitrite POSITIVE Urine Bilirubin NEGATIVE Urine Urobilinogen 0.2 E.U./dL Urine Leukocyte Esterase TRACE Urine Microscopic RBC 5-10/HPF Urine Microscopic WBC 10-25/HPF Urine Triple Phosphate Crystals MODERATE Urine Bacteria MANY Urine Hemoglobin TRACE Urine Glucose NEGATIVE% Urine Total Protein 1+ Current Medications Medications (Trade) Dose Ordered Sig/Love Route PRN Reason Start Time Stop Time Status Last Admin Dose Admin Sodium Chloride 1,000 ml @ 1,000 mls/hr Q1H STAT IV 03/11/17 19:08 03/11/17 20:07 DC 03/11/17 19:29 Cefepime HCl 50 ml @ 100 mls/hr ONCE ONCE IVPB 03/11/17 22:00 03/11/17 22:29 DC 03/11/17 22:10 Sodium Chloride 1,000 ml @ 1,000 mls/hr Q1H ONCE IV 03/11/17 22:30 03/11/17 23:29 DC Vancomycin HCl (Vancocin) 250 ml @ 125 mls/hr ONCE IVPB 03/11/17 22:30 03/12/17 00:29 03/11/17 22:32 Nystatin (Nystatin Cr) 1 applic ONCE ONCE TOP 03/11/17 22:30 03/11/17 22:31 DC Ondansetron HCl (Zofran Inj) 4 mg ER BRIDGE PRN IV NAUSEA AND/OR VOMITING 03/11/17 23:00 03/12/17 22:59 Acetaminophen (Tylenol Tab) 650 mg ER BRIDGE PRN PO MILD PAIN/FEVER 03/11/17 23:00 03/12/17 22:59 Procedures/MDM Chronic debilitated patient with urinary tract infection with acute kidney injury. Her baseline creatinine appears to be around 1.5 and 1.6 is now increased to 2.3 with concomitant UTI. Also with abdominal skin cellulitis with apparent combination of bacterial and fungal elements. She has no signs of sepsis or overwhelming infection. Any surgical approach to her G-tube will have to wait until the surrounding skin infection is resolving. He was given a gram of cefepime to be in treatment of the bacteria and nystatin cream was applied to both affected areas. She will be admitted for further hydration and monitoring of her renal function as well as treatment of her skin infection. She is stable on her current vent settings with no signs of distress. I spoke with Dr. Garcia, covering for Dr. Rosas, who will be admitting the patient to telemetry. Reason for telemetry admission is that the patient is on a ventilator. Departure Diagnosis: Primary Impression: UTI (urinary tract infection) Additional Impressions: Acute kidney injury Cellulitis Candidiasis Condition: Stable BLUE MON DO March 12, 2017 00:13
[2017-03-12] MEDS ORDERED: PIPER-TAZO 2.25 GM (PMX) 50 ML IVPB ONE (06:00)
[2017-03-12] MEDS ORDERED: FUROSEMIDE 20 MG TAB GTB SCH (06:00)
[2017-03-12] MEDS ORDERED: DEXTROSE 5% 1,000 ML IV SCH (08:00)
--- NOTE | 2017-03-12 08:59 | HP ---
DATE OF ADMISSION: 03/11/2017 CHIEF COMPLAINT: G-tube malfunction, abdominal wall cellulitis. HISTORY OF PRESENT ILLNESS: This is an 86-year-old female with a past medical history of advanced A lzheimer dementia, history of ventricular respiratory failure, history of chronic kidney disease sta ge IV, history of anemia, history of contracture, history of Parkinson disease, history of dysphagia status post PEG, history of coronary artery disease who presents to [facility] fo r evaluation of a malfunctioning G-tube. The patient was recently admitted to [facility] in early February for evaluation of her malfunctioning G-tube. During that hospital course, the patient had her G-tube exchanged, was discharged back to her care home facility [facility]. The patient at [facility], however, continued to have leaking around her G-tube site, a nd despite conservative measurements, the patient was brought back to [facility] a nd admitted for replacement of her G-tube site and evaluation of her underlying ostomy. There have been no reports of any hemoptysis, hemetemesis, hematochezia noted. The patient upon arrival was no iliana to have erythema around her G-tube site. A CT scan of the abdomen and pelvis was obtained which showed cellulitis, but no evidence of abdominal wall or intraperitoneal abscess. PAST MEDICAL HISTORY: As stated above, history of ventilator dependent respiratory failure, history of dysphagia, history of advanced Parkinson's dementia, history of encephalopathy, history of CKD s tage IV, history of anemia, history of coronary artery disease, history of peripheral vascular disea se, history of hypertension, diabetes. PAST SURGICAL HISTORY: Status post trach, status post PEG placement. FAMILY HISTORY: Noncontributory. SOCIAL HISTORY: Lives at a subacute facility. ALLERGIES: NO KNOWN DRUG ALLERGIES. MEDICATIONS: The patient's medications have been reviewed and reconciled. REVIEW OF SYSTEMS: Unable to do adequate review of systems as patient is nonverbal. Pertinent posi tives obtained by reviewing medical records, speaking to hospital staff, stated in HPI, otherwise ne gative. PHYSICAL EXAMINATION: VITAL SIGNS: Blood pressure is 135/67, respirations 10, pulse is 70, temperature 98.4. HEENT: Head is normocephalic. Pupils react to light. NECK: Shows trach. HEART: Regular rate. No gallops or clicks. LUNGS: Show diminished breath sounds at the base. ABDOMEN: Soft, nontender to palpation. Positive for PEG. Noted a leak around her PEG, noted eryth eloisa over the anterior abdominal wall. No rebound or guarding. EXTREMITIES: Negative for clubbing, cyanosis. Positive trace edema. Positive contractures. DERMATOLOGIC: No new rashes noted. MUSCULOSKELETAL: Noted wounds. NEUROLOGIC: Limited exam as the patient is obtunded. LABORATORY DATA: Shows a white count 6.1, hemoglobin 8.1, crit 29.1, platelet count 416. Sodium 14 7, potassium 4.2, chloride 108, BUN 77, creatinine 2.36. Lactic acid 1.3. IMAGING STUDIES: CT scan of the abdomen and pelvis as stated in HPI. ASSESSMENT AND PLAN: This is an 86-year-old female who presents with: 1. G-tube malfunction. The patient has noted a leak around her G-tube site. Plan is to get a GI c onsult with for placement of G-tube in a new site. We will also consider a general surger y evaluation to close underlying ostomy. 2. Abdominal wall cellulitis. Etiology is likely fungal and bacterial. Continue current antibioti c regimen. Cultures have been sent. We will place an ID consult with Dr. Chong for evaluation. 3. Ventilator dependent respiratory failure. Vent settings have been reviewed. We will place a pu lmonary consult with Dr. Dalton for evaluation. 4. Chronic kidney disease. 5. Nonoliguric acute kidney injury on top of chronic kidney disease stage IV. The patient's etiolo gy of acute kidney injury is likely hemodynamic. The patient is status post IV hydration. Plan is to check the patient's urinalysis, check urine electrolytes. We will continue medical management. Continue supportive care, renally dose meds, avoid nephrotoxins. 6. History of congestive heart failure, systolic and diastolic. The patient may have acute decompe nsation. Will check a chest x-ray. Continue diuretic therapy. We will hold IV fluids and monitor. 7. Hypernatremia. Will start the patient on D5 water at 75 mL an hour and monitor sodium levels cl osely. 8. Advanced Parkinson's dementia with encephalopathy. Continue current medical management. 9. Coronary artery disease. Continue current treatment plan. 10. Hypertension. Continue blood pressure regimen. 11. Anemia of chronic disease. Will check an iron panel, ferritin level, stool for occult blood. Continue Epogen. Continue ferritin. Monitor H and H levels. 12. 13. Wounds. Wound care consult for evaluation. 14. Gastrointestinal and deep venous thrombosis prophylaxis. The patient will be placed on PPI and heparin. Please note I spent 25 minutes of time with the patient's son discussing code status. The patient i s a full code. Dictated By: OSMAR MONTAGUE DO NR/NTS Conf#: [id number] DID#: [id number] CC: RUSS KUNZ MD;*EndCC*
[2017-03-12] MEDS: CLOPIDOGREL 75 MG TAB GTB SCH (09:00)
[2017-03-12] MEDS: CARBIDOPA/LEVODOPA (25/100) TAB GTB SCH ×3 (09:54→20:43)
[2017-03-12] MEDS: ASCORBIC ACID 500 MG TAB GTB SCH ×2 (09:54→20:43)
[2017-03-12] MEDS: CHLORHEXIDINE GLUCONATE 15 ML UD CUP MT SCH ×2 (09:55→20:43)
[2017-03-12] MEDS: FOLIC ACID 1 MG TAB GTB SCH (09:55)
[2017-03-12] MEDS: MEMANTINE 5 MG TAB GTB SCH (09:55)
[2017-03-12] MEDS: FERROUS SULFATE (EC) 325 MG TAB PO SCH ×2 (09:55→20:43)
[2017-03-12] MEDS: PRAMIPEXOLE 0.25 MG TAB GTB SCH (09:55)
[2017-03-12] MEDS: CITRIC ACID/SODIUM CITRATE 15 ML CUP GTB SCH (09:55)
[2017-03-12] MEDS: MULTIVIT/CA CARB/B CMPLX/FA TAB GTB SCH (09:55)
[2017-03-12] MEDS: HEPARIN 5,000 UNIT/0.5 ML VIAL SC SCH ×2 (09:56→20:54)
[2017-03-12] MEDS: DOCUSATE SODIUM 100 MG CAP PO SCH ×2 (09:56→20:43)
--- NOTE | 2017-03-12 11:39 | CONS ---
DATE OF ADMISSION: 03/11/2017 DATE OF CONSULTATION: 03/12/[address] Rosas for this consultation. HISTORY OF PRESENT ILLNESS: This is an 86-year-old lady with multiple medical problems including ad vanced Alzheimer dementia, vent-dependent respiratory failure, chronic kidney disease stage IV, Park inson's disease. This patient had a PEG tube, [facility] for evaluati on of malfunctioning G-tube. She was also noted to have significant erythema and cellulitis around the G-tube site. The patient evaluated by gastroenterology. CT of the abdomen was performed demons trated cellulitis but no abdominal wall or intraperitoneal abscess. Plan is for replacement of G-tu be on the new site, continue intravenous antibiotics. In the meantime, she is to continue on mechan ical ventilation. PAST MEDICAL HISTORY: As above. MEDICATIONS: Per chart. ALLERGIES: NONE. SOCIAL HISTORY: Nonsmoker, no alcohol, no history of drug use. FAMILY HISTORY: Noncontributory. SYSTEMS REVIEW: A 12-point review of systems unable to perform. PHYSICAL EXAMINATION: GENERAL: Chronically ill appearing lady, appears comfortable at rest, no acute distress, currently afebrile. VITAL SIGNS: Temperature 98, pulse 98, blood pressure 132/89, O2 saturation 96% on 30% FIO2. NECK: Trach site clean and intact. CARDIAC: S1, S2, no added sounds or murmurs. CHEST: Diminished air entry bilaterally. ABDOMEN: Soft, nontender. No guarding or rebound. EXTREMITIES: No cyanosis, clubbing, 2+ edema. NEUROLOGIC: Generalized weakness. LABORATORY DATA: Sodium 147. BUN 77, creatinine 2.36. White count 6.1, hemoglobin 8.1, platelets of 4 . INR is pending. Urinalysis was positive for urinary tract infection. IMPRESSION AND PLAN: 1. Vent dependent respiratory failure. Will require continued mechanical ventilation. 2. G-tube malfunction with abdominal wall cellulitis. Will require antibiotics and replacement of G-tube. 3. Urinary tract infection. Continue antibiotics per primary team. 4. Encephalopathy at baseline. 5. Dysphagia. Plan as above. 6. Continue DVT and GI prophylaxis. Dictated By: JARED CLAIRE MD SV/RAYSA Conf#: [id number] DID#: [id number]
[2017-03-12] MEDS: METOPROLOL 25 MG TAB GTB SCH (12:05)
[2017-03-12 12:25] LABS: ADD SCAN DIFF NO
[2017-03-12 12:31] LABS: ABNORMAL IP MESSAGE 1; BASOPHILS % 0.1 % (0.0-2.0); EOSINOPHILS % 0.6 % (0.0-7.0); HEMATOCRIT 30.2 % (37.0-47.0); HEMOGLOBIN 8.1 g/dl (12.0-16.0); LYMPHOCYTES # 0.6 10^3/ul (0.8-2.9); MEAN CORPUSCULAR HEMOGLOBIN 30.3 pg (29.0-33.0); MEAN CORPUSCULAR HGB CONC 26.8 g/dl (32.0-37.0); MEAN CORPUSCULAR VOLUME 113.1 fl (82.0-101.0); MEAN PLATELET VOLUME 9.9 fl (7.4-10.4); MONOCYTE # 0.2 10^3/ul (0.3-0.9); MONOCYTES % 2.5 % (0.0-11.0); NEUTROPHIL # 6.2 10^3/ul (1.6-7.5); NEUTROPHILS % 87.1 % (39.0-77.0); PLATELET COUNT 562 10^3/UL (140-415); RED BLOOD COUNT 2.67 10^6/ul (4.20-5.40); RED CELL DISTRIBUTION WIDTH 20.7 % (11.5-14.5); WHITE BLOOD COUNT 7.2 10^3/ul (4.8-10.8)
[2017-03-12 12:47] LABS: IRON 62 ug/dl (35-150)
[2017-03-12 12:50] LABS: ALBUMIN 2.3 g/dl (3.3-4.9); ALBUMIN/GLOBULIN RATIO 0.53; BILIRUBIN,INDIRECT 0.2 mg/dl (0-1.1); BILIRUBIN,TOTAL 0.2 mg/dl (0.2-1.3); CALCIUM 8.5 mg/dl (8.4-10.2); CREATININE 2.66 mg/dl (0.44-1.00); POTASSIUM 4.5 mmol/L (3.5-5.1); TOTAL PROTEIN 6.6 g/dl (6.1-8.1)
[2017-03-12 12:56] LABS: TOTAL IRON BINDING CAPACITY 120 ug/dl (241-421)
[2017-03-12] MEDS ORDERED: LIDOCAINE 1% (MPF) 5 ML VIAL SC ONE (13:00)
[2017-03-12] MEDS ORDERED: VANCOMYCIN IV PER PHARMACY XX SCH (13:00)
[2017-03-12] MEDS ORDERED: ATROPINE 1 MG/10 ML SYRINGE ONE (13:40)
--- NOTE | 2017-03-12 13:55 | QN ---
Documentation Comment I was called out of the emergency department to room 532 for central line placement as the patient has no IV access. The patient had recently had a rapid response called for hypotension. Physical exam: The patient is nonresponsive and nonverbal at baseline. The patient has a tracheostomy and is on a ventilator. The patient is contracted. The patient has a GCS of 3. History and physical exam is limited based on the mental status. Central Line Placement by me: Patient consented, sterilely draped, full prep, gown, glove, mask, time out performed. Anesthesia: 1% lidocaine locally Location: Right femoral Device: Multiple lumen Technique: Seldinger technique. Secured with suture. Results: Venous return from all ports with easy saline flush. No complications. Guide wire retrieved and disposed of. ED Ultrasound: Central line placed by me using concurrent ultrasound guidance. Real time image archived in the medical record confirms vascular anatomy. No need for chest x-ray as the patient had a femoral line placed. JAVIER TIRADO MD March 12, 2017 13:55
[2017-03-12] MEDS ORDERED: CEFEPIME 2GM/50 ML (PMX) 50 ML IVPB SCH (14:00)
[2017-03-12 14:17] LABS: ADD SCAN DIFF NO
[2017-03-12 14:19] LABS: ABNORMAL IP MESSAGE 1; HEMATOCRIT 26.6 % (37.0-47.0); HEMOGLOBIN 7.1 g/dl (12.0-16.0); MEAN CORPUSCULAR HEMOGLOBIN 30.7 pg (29.0-33.0); MEAN CORPUSCULAR HGB CONC 26.7 g/dl (32.0-37.0); MEAN CORPUSCULAR VOLUME 115.2 fl (82.0-101.0); MEAN PLATELET VOLUME 9.9 fl (7.4-10.4); PLATELET COUNT 476 10^3/UL (140-415); RED BLOOD COUNT 2.31 10^6/ul (4.20-5.40); RED CELL DISTRIBUTION WIDTH 20.4 % (11.5-14.5); WHITE BLOOD COUNT 6.2 10^3/ul (4.8-10.8)
--- NOTE | 2017-03-12 14:26 | RADRPT ---
Vent Rate: 54 bpm RR Interval: 0 msec TX Interval: 0 msec QRS Duration: 74 msec QT Interval: 472 msec QTC Interval: 447 msec P-R-T [place]: 0 - 44 - 70 degrees Sinus bradycardia with PAC's Low voltage QRS Abnormal ECG Electronically Signed By: Phil Medley [id number]
[2017-03-12 14:33] LABS: POTASSIUM 4.4 mmol/L (3.5-5.1)
[2017-03-12 14:35] LABS: CREATININE 2.74 mg/dl (0.44-1.00)
--- NOTE | 2017-03-12 14:35 | RADRPT ---
PROCEDURE: XR Chest. CLINICAL INDICATION: Congestive heart failure. TECHNIQUE: Chest x-ray, single view. COMPARISON: 02/18/2017. FINDINGS: The cardiac silhouette is magnified and unchanged in size and configuration. Aortic arch atheroscle rotic calcification is present. A tracheostomy tube is in place. Blunting of the bilateral costoph renic angles is observed suggesting the presence of small pleural effusions. The left hemidiaphragm is obscured which may reflect superimposed atelectasis and / or airspace disease. osseous structur es appear decreased in density. The visualized upper abdomen is unremarkable. IMPRESSION: Bilateral pleural effusions, unchanged. Left basilar atelectasis and / or airspace disease. RPTAT: HLST .Jaqui Hernandez MD, Date Time Electronically viewed and signed by .Jaqui Hernandez MD, on 03/12/2017 14:35 .T/
[2017-03-12 14:36] LABS: ALBUMIN/GLOBULIN RATIO 0.5; BILIRUBIN,INDIRECT 0.1 mg/dl (0-1.1); BILIRUBIN,TOTAL 0.1 mg/dl (0.2-1.3)
--- NOTE | 2017-03-12 14:36 | RADRPT ---
PROCEDURE: XR Chest. CLINICAL INDICATION: Respiratory distress. Rapid response Code. TECHNIQUE: Chest x-ray, single view. COMPARISON: 03/12/2017 at 0921 hours. FINDINGS: The cardiac silhouette is magnified and unchanged in size. Aortic arch atherosclerotic calcificatio n is present. A tracheostomy tube is in place. Small bilateral pleural effusions are unchanged. L eft basilar atelectasis and / or airspace disease is unchanged. Osseous structures appear low in de nsity. The visualized upper abdomen is unremarkable. IMPRESSION: Unchanged appearance of the chest demonstrating small bilateral pleural effusions and probable left basilar atelectasis and / or airspace disease. RPTAT: HLST .Jaqui Hernandez MD, MD Date Time Electronically viewed and signed by .Jaqui Hernandez MD, on 03/12/2017 14:36 .T/
[2017-03-12 14:37] LABS: CALCIUM 8.3 mg/dl (8.4-10.2)
[2017-03-12] MEDS ORDERED: VANCOMYCIN 1 GM in NS 250 ML IVPB SCH (15:00)
[2017-03-12] MEDS ORDERED: NORepinephrine 8MG/250 ML (PMX 250 ML IV SCH (15:30)
[2017-03-12] MEDS ORDERED: SOD CHLORIDE 0.9% 1,000 ML IV SCH (15:30)
[2017-03-12] MEDS: SOD CHLORIDE 0.9% 1,000 ML IV SCH ×2 (15:35→16:52)
[2017-03-12] MEDS ORDERED: LEVOFLOXACIN 750MG/D5W (PMX) 150 ML IVPB SCH (16:00)
[2017-03-12 16:04] LABS: ADD SCAN DIFF NO
[2017-03-12 16:09] LABS: ABNORMAL IP MESSAGE 1; HEMATOCRIT 31.6 % (37.0-47.0); HEMOGLOBIN 8.5 g/dl (12.0-16.0); MEAN CORPUSCULAR HEMOGLOBIN 29.9 pg (29.0-33.0); MEAN CORPUSCULAR HGB CONC 26.9 g/dl (32.0-37.0); MEAN CORPUSCULAR VOLUME 111.3 fl (82.0-101.0); MEAN PLATELET VOLUME 9.8 fl (7.4-10.4); PLATELET COUNT 613 10^3/UL (140-415); RED BLOOD COUNT 2.84 10^6/ul (4.20-5.40); RED CELL DISTRIBUTION WIDTH 20.5 % (11.5-14.5); WHITE BLOOD COUNT 11.2 10^3/ul (4.8-10.8)
[2017-03-12 16:23] LABS: POTASSIUM 4.5 mmol/L (3.5-5.1)
[2017-03-12 16:26] LABS: CREATININE 2.85 mg/dl (0.44-1.00)
[2017-03-12 16:27] LABS: CALCIUM 8.7 mg/dl (8.4-10.2); MAGNESIUM 2.2 mg/dl (1.7-2.5)
[2017-03-12] MEDS ORDERED: PHENYLephrine 20MG IN 250 ML 250 ML IV SCH (16:30)
[2017-03-12] MEDS ORDERED: DEXTROSE 50% 50 ML SYRINGE ONE (16:36)
[2017-03-12 16:51] LABS: LYMPHOCYTES # 0.3 10^3/ul (0.8-2.9); MONOCYTE # 0.2 10^3/ul (0.3-0.9); NEUTROPHIL # 5.2 10^3/ul (1.6-7.5)
[2017-03-12 16:57] LABS: LYMPHOCYTES # 0.2 10^3/ul (0.8-2.9); MONOCYTE # 0.2 10^3/ul (0.3-0.9); NEUTROPHIL # 9.2 10^3/ul (1.6-7.5)
[2017-03-12] MEDS: DEXTROSE 5%-0.9% NACL 1,000 ML IV SCH (18:08)
--- NOTE | 2017-03-12 18:59 | CONS ---
DATE OF ADMISSION: 03/11/2017 DATE OF CONSULTATION: 03/12/2017 REASON FOR CONSULTATION: Cardiopulmonary arrest, bradycardia. CHIEF COMPLAINT: G-tube malfunction, abdominal wall cellulitis. HISTORY OF PRESENT ILLNESS: Thank you for this referral. History obtained from extensive review of the old chart, discussion with physician and staff. The patient ____ an 86-year-old female with hi story of severe dementia, hypoxemic respiratory failure, status post tracheostomy, chronic vent, his tory of paroxysmal atrial fibrillation who was admitted because of abdominal wall cellulitis and NG tube malfunction. The patient was on telemetry was noted to be hypoxemic, as well as bradycardic, a nd went to junctional bradycardia. INFORMATION TECHNOLOGY SPECIALIST was called. The patient was placed on vent. The patient osuna s been transferred to ICU. ____patient is nonverbal and unable to give history. PAST MEDICAL HISTORY: Extensive review of the old chart, history of hypoxemic respiratory failure, status post tracheostomy, vent dependent, history of dysphagia, history of severe dementia, history of encephalopathy, history of arrhythmia with paroxysmal atrial fibrillation, questionable history o f coronary artery disease, peripheral vascular disease, hypertension and diabetes. PAST SURGICAL HISTORY: Tracheostomy and PEG placement. PEG had to be replaced recently. ____ FAMILY HISTORY: ____ SOCIAL HISTORY: ____subacute facility, nonverbal. ALLERGIES: NO REPORTED DRUG ALLERGY. MEDICATIONS: Per medical reconciliation, personally reviewed. PHYSICAL EXAMINATION: VITAL SIGNS: Temperature 98.1, heart rate of 82, blood pressure 132/89, respiratory rate 22, satura ting 98%. HEENT: Normocephalic, atraumatic. Eyes are closed. NECK: Status post trach on the vent. CARDIOVASCULAR: Regular rate and rhythm, systolic murmur. PULMONARY: Anteriorly with no wheezes, with diffuse rhonchi. GASTROINTESTINAL: Soft, distended. Positive status post PEG placement. EXTREMITIES: Diffuse upper and lower extremity edema. NEUROLOGIC: Lethargic and sedated, nonverbal. LABORATORY: WBC of 6.2, hemoglobin 7.1, platelets 476. Sodium 144, potassium 4.4, BUN of 68, creat inine 2.74, glucose of 211. ____ is 11. Albumin is 2. Chest x-ray done shows status post tracheos heriberto, small bilateral pleural effusion, ____ atelectasis. ASSESSMENT AND PLAN: 1. EKG was personally reviewed, showed slight sinus bradycardia. Rhythm strip was reviewed which s howed episode of junctional bradycardia as well as marked sinus bradycardia. 2. Status post cardiopulmonary arrest. 3. Hypoxemia with acute respiratory failure. A mild episode of marked junctional bradycardia, prob ably related to respiratory failure and transient severe hypoxemia. 4. History of paroxysmal atrial fibrillation. 5. Severe anemia. 6. Lactic acidosis. 7. History of fluid overload and congestive heart failure secondary to diastolic dysfunction. 8. Electrolyte abnormality, hypernatremia. 9. History of possible coronary artery disease. 10. History of peripheral vascular disease 11. History of Alzheimer disease and dementia. RECOMMENDATIONS: Antibiotic is managed as per ID ____ internal medicine. Continue the vent support . Continue to monitor on telemetry. Heart rate currently stable. We will continue to monitor. Ec hocardiogram was recently done this morning which was personally reviewed, which showed normal LV sy stolic function. Beta iggy will be held for now. We will continue to follow along with you. N o anticoagulation is being given for the time being, given her severe anemia. Dictated By: MILAGROS LEE/RAYSA Conf#: [id number] DID#: [id number]
--- NOTE | 2017-03-12 19:00 | CONS ---
DATE OF ADMISSION: 03/11/2017 DATE OF CONSULTATION: 03/12/2017 REASON FOR CONSULTATION: Antibiotic management. HISTORY OF PRESENT ILLNESS: Kailey French is an 86-year-old female who comes in with G-tube malfun ction and abdominal wall cellulitis. Past problems include: 1. Alzheimer dementia. 2. History of respiratory failure. 3. Chronic renal disease stage IV. 4. Anemia. 5. Contractions. 6. Parkinson disease. 7. Dysphagia status post G-tube placement. 8. Coronary artery disease. The patient presents with malfunctioning G-tube. She was admitted in early February also for malfunction ing G-tube. The G-tube was changed and she was discharged back to her nursing facility. She contin ued to have leaking around the G-tube. She was brought back to [facility] and admitted for replacement of G-tube and evaluation of her underlying ostomy CT scan of the abdomen and pelvis was obtained which showed cellulitis, but no evidence of abdominal wall or intraperitoneal abscess. As noted, she has been in ventilator-dependent respiratory failure, status post tracheostomy. She has Parkinson dementia, dysphagia, encephalopathy, stage IV renal disease, peripheral vascular disease, diabetes and hypertension. PAST SURGICAL HISTORY: Status post tracheostomy, status post G-tube placement. FAMILY HISTORY: Noncontributory. SOCIAL HISTORY: She lives in a subacute. ALLERGIES: NONE TO PENICILLIN, SULFA OR FOODS. MEDICATIONS: Per chart. REVIEW OF SYSTEMS: As per HPI. PHYSICAL EXAMINATION: GENERAL: The patient is a chronically ill-appearing female who is awake, noncommunicative, in no ac marco antonio distress. VITAL SIGNS: Stable. She is afebrile. SKIN: Without generalized rash. HEENT: Within normal limits. NECK: Tracheostomy in place without leakage or exudate. CHEST: Decreased breath sounds at the bases. HEART: Without murmur or gallop. ABDOMEN: Soft, nontender. G-tube is present with leakage around the G-tube and erythema over the a nterior abdominal wall. EXTREMITIES: Without cyanosis, clubbing, or edema. She has contractures. RECTAL AND GENITAL: Deferred. NEUROLOGIC: The patient is obtunded. She has Parkinson disease. LABORATORY DATA: White count is 6.1, H and H of 8.1 and 29.1, platelet of . BUN and creatinin e 77/2.36. Today her white count is 7.2. Urine is positive for nitrite, trace leukocyte esterase. HOSPITAL COURSE: Patient was started on vancomycin and Zosyn. She received cefepime, she received Zosyn, and she received vancomycin. The CT scan showed induration of skin and thickening of the sub cutaneous fat along the gastrostomy tract similar to 02/18/2017 without evidence of abdominal wall o r intraperitoneal abscess. She has metallic densities within the gastric fundus of the hiatal herni a causing artifact, findings possibly related to therapy versus ingested material, stable bilateral pleural effusions and compressive atelectasis of the lower lobes, bilateral renal cortex thinning co nsistent with medical renal disease, interval placement of Collazo catheter, extensive diverticular di sease of the colon without evidence of diverticulitis, heterotopic ossification overlying left hip i s again noted with diffuse muscle atrophy, presumably related to paralysis, stable nonspecific lower anterior abdominal wall subcutaneous nodules. IMPRESSION AND PLAN: The patient has G-tube malfunction and will need a new G-tube at a new site. She denied abdominal wall cellulitis. Cultures have been sent, and she was started on vancomycin an d has had Zosyn and cefepime. We will continue her on this regimen. I will continue her on the cef epime. I will dictate my findings to Dr. Rosas. Dictated By: GABINO TINAJERO MD, JD/RAYSA Conf#: [id number] DID#: [id number]
[2017-03-12] MEDS: ATORVASTATIN 10 MG TAB PO SCH (20:43)
[2017-03-12] MEDS: LACTOBACILLUS RHAMNOSUS CAP GTB SCH (20:43)
[2017-03-12 21:00] LABS: AADO2 Arterial 373.8 mmHg (7.0-24.0); Arterial Base Excess -8.8 mmol/L (-3.0-3); Arterial COHb 0.3 % (0.0-3.0); Arterial Fraction of Oxyhgb 98.7 % (93.0-99.0); Arterial HCO3 15.8 mmol/L (22.0-26.0); Arterial MetHb 0.4 % (0.0-1.5); Arterial Total Hemglobin 10.2 g/dl (12.0-18.0); MODE VENT - AC
[2017-03-12] MEDS ORDERED: PHENYLephrine 20MG IN 250 ML 250 ML IV PRN (21:30)
[2017-03-12] MEDS: DONEPEZIL 10 MG TAB GTB SCH (22:16)
[2017-03-12] MEDS ORDERED: NA BICARBONATE 8.4% 50 ML SYG IV ONE (23:15)
[2017-03-12] MEDS: MAGNESIUM HYDROXIDE 30ML CUP GTB SCH (23:34)
[2017-03-12] MEDS: ACETAMINOPHEN 650MG/20.3ML CUP GTB PRN (23:55)
[2017-03-13] VITALS (101 sets, daily range): BP systolic 59–142; BP diastolic 26–68; PULSE 74–137; RESP 16–40
--- NOTE | 2017-03-13 00:10 | CONS ---
DATE OF ADMISSION: 03/11/2017 DATE OF CONSULTATION: 03/12/2017 GASTROENTEROLOGY CONSULTATION REFERRING PHYSICIAN: Dr. Brendan Rosas. REASON FOR CONSULTATION: Closure of the G-tube site, and placement of a new G-tube. HISTORY OF PRESENT ILLNESS: An 86-year-old female with history of Alzheimer dementia, vent-dependen t respiratory failure, bedridden, chronic kidney disease, Parkinson disease, had G-tube placed which was leaking and required a change of G-tube. A larger G-tube was placed, but because of the location near the peak abdominal fold, the G-tube was constantly leaking, so she was admitted for fu rther management. The patient had a CAT scan of the abdomen and pelvis done which showed thickening of the skin around the G-tube site, secondary to contact dermatitis. There was no abscess. PAST MEDICAL HISTORY: As described. PAST SURGICAL HISTORY: Status post trach and PEG. FAMILY HISTORY: Nothing contributory. SOCIAL HISTORY: She lives at a nursing facility. ALLERGIES: NONE. PHYSICAL EXAMINATION: GENERAL: Nonverbal. The patient was transferred to the intensive care unit for hypertension. CARDIOVASCULAR: No murmur, gallop or click. LUNGS: The patient is on vent. ABDOMEN: Benign, except for the hyperemic and thickened skin around the G-tube site, which is exten sive. This is due to the leakage of the gastric content. LABORATORY DATA: Chest x-ray negative, except for the pleural effusion. LABORATORY: BUN was 74, creatinine is 2.85. CBC: Hematocrit 31, WBC has gone up to 11.2. IMPRESSION: 1. Malfunctioning gastrostomy tube. 2. Cellulitis as well as contact dermatitis around the G-tube site. 3. Vent-dependent respiratory failure. 4. Chronic kidney disease. 5. Hypernatremia. 6. Parkinson disease. 7. Hypotension, probably related to sepsis. PLAN: Prepare to do appropriate cultures. The patient is on empiric antibiotic; she is on vancomyc in and cefepime. If she is stable, then we will go ahead with the placement of the new G-tube and c losure of the old G-tube site. Dictated By: SYLWIA ROMANO/RAYSA Conf#: [id number] DID#: [id number]
[2017-03-13] MEDS: DEXTROSE 5%-0.9% NACL 1,000 ML IV SCH ×2 (04:27→14:06)
[2017-03-13 04:59] LABS: ADD SCAN DIFF NO
[2017-03-13 05:10] LABS: ABNORMAL IP MESSAGE 1; BASOPHILS % 0.1 % (0.0-2.0); EOSINOPHILS % 0.1 % (0.0-7.0); HEMATOCRIT 29.2 % (37.0-47.0); HEMOGLOBIN 8.3 g/dl (12.0-16.0); LYMPHOCYTES # 0.2 10^3/ul (0.8-2.9); LYMPHOCYTES % 0.9 % (15.0-51.0); MEAN CORPUSCULAR HEMOGLOBIN 30.5 pg (29.0-33.0); MEAN CORPUSCULAR HGB CONC 28.4 g/dl (32.0-37.0); MEAN CORPUSCULAR VOLUME 107.4 fl (82.0-101.0); MEAN PLATELET VOLUME 9.9 fl (7.4-10.4); MONOCYTE # 0.1 10^3/ul (0.3-0.9); MONOCYTES % 0.4 % (0.0-11.0); NEUTROPHIL # 19.1 10^3/ul (1.6-7.5); PLATELET COUNT 557 10^3/UL (140-415); RED BLOOD COUNT 2.72 10^6/ul (4.20-5.40); RED CELL DISTRIBUTION WIDTH 20.2 % (11.5-14.5); WHITE BLOOD COUNT 19.9 10^3/ul (4.8-10.8)
[2017-03-13 05:20] LABS: POTASSIUM 3.9 mmol/L (3.5-5.1)
[2017-03-13 05:22] LABS: CREATININE 2.72 mg/dl (0.44-1.00)
[2017-03-13 05:23] LABS: CALCIUM 7.5 mg/dl (8.4-10.2); MAGNESIUM 1.7 mg/dl (1.7-2.5)
[2017-03-13 05:42] LABS: NEUTROPHILS % 96.2 % (39.0-77.0)
--- NOTE | 2017-03-13 07:44 | RADRPT ---
PROCEDURE: XR Chest. CLINICAL INDICATION: Dyspnea TECHNIQUE: Anterior chest x-ray. COMPARISON: 09/19/2013, 03/12/2017 FINDINGS: Tracheostomy tube is unchanged from previous exam. Retrocardiac consolidation with obscured left hemidiaphragm, unchanged. The lungs are otherwise clear. Small bilateral pleural effusions are unchanged from previous exam. There is no evidence of pneumothorax. The cardiomediastinal silhouette is unremarkable. The soft tissues are normal. Osseous structures are unremarkable. IMPRESSION: 1. Retrocardiac atelectasis versus infiltrate, unchanged. 2. Small bilateral pleural effusions, unchanged. 3. Stable and satisfactory position of tracheostomy tube. RPTAT: QQ .Nic Montes MD, MD Date Time Electronically viewed and signed by .Nic Montes MD, MD on 03/13/2017 07:44 .M/
[2017-03-13 08:16] LABS: Allen Test ACCEPTAB; Arterial Base Excess -3.6 mmol/L (-3.0-3); Arterial COHb 0.3 % (0.0-3.0); Arterial Fraction of Oxyhgb 97.6 % (93.0-99.0); Arterial HCO3 19.3 mmol/L (22.0-26.0); Arterial MetHb 0.5 % (0.0-1.5); Arterial Total Hemglobin 8.9 g/dl (12.0-18.0); MODE VENT - AC
--- NOTE | 2017-03-13 08:29 | PN ---
DATE: 03/13/2017 SUBJECTIVE: The patient yesterday had a clinical decompensation, went into septic shock while on te lemetry floor. The patient suddenly became unresponsive, hypotensive. The patient was transferred to intensive care unit, was placed on pressor support, was given multiple boluses of IV fluids and w ith broadening of antibiotic therapy. Overnight, the patient was able to be weaned off 1 pressor. The patient, however, has remained critical and has had minimal urinary output. No episodes of hemo ptysis, hematemesis, or hematochezia. Please note I spoke with the patient's son informing him of the critical nature of his mother. All questions were answered. OBJECTIVE: VITAL SIGNS: Currently, blood pressure 90/47, respirations 29, pulse 109, temperature 98.6. HEENT: Head is normocephalic. Pupils are reactive to light. NECK: Supple. HEART: Tachycardic. LUNGS: Show diminished breath sounds at the base. Positive rhonchi. ABDOMEN: Soft, nontender to palpation. No rebound or guarding. Positive erythema around the G-tub e site. Positive ostomy. EXTREMITIES: Negative for clubbing, cyanosis, no edema. DERMATOLOGIC: No rashes. MUSCULOSKELETAL: No joint effusions. NEUROLOGIC: No change in exam. MEDICATIONS: The patient's medications have been reviewed. LABORATORY DATA: Shows a sodium of 152, potassium 2.9, chloride 113, BUN 73, creatinine 2.72. Lact ic acid 6.4, phosphorus 5.0, calcium 7.5. White count 19.9, hemoglobin 8.3, hematocrit 29.2, platel et count 557. The patient's blood cultures show gram-positive cocci in pairs and clusters. IMAGING: Chest x-ray shows haziness of the right lung base, possible airspace disease. ASSESSMENT AND PLAN: 1. Septic shock. Etiology is secondary to septicemia/bacteremia. Blood cultures are positive with gram-positive cocci. Underlying source unclear, possible pneumonic, possible cellulitis, possible UTI. The patient is currently on broad-spectrum antibiotics of vancomycin, Levaquin, cefepime. On pressor support and IV fluids. Plan is to continue current treatment plan. Will wean off pressors if possible. Continue IV hydration. Follow up cultures. Follow up with infectious disease for rec ommendations. 2. Ventilatory-dependent respiratory failure. Vent settings have been reviewed. ABG has been revi ewed. We will continue current vent settings. 3. Nonoliguric acute kidney injury on top of chronic kidney disease stage IV with a previous baseli ne creatinine around 1.5 to 2 mg/dL. Etiology of acute kidney injury is secondary to acute tubular necrosis, septic acute kidney injury, ischemic hypoperfusion and shock. The patient's urinary outpu t has been minimal, approximately 5 to 10 mL an hour. At this point, would continue current treatme nt plan. Continue treating underlying sepsis. Continue IV fluids, continue pressor support, mainta in MAP above 65. Continue antibiotic therapy. Otherwise, continue supportive care, renally dose al l meds, avoid nephrotoxins. 4. Mixed acid base disorder. The patient has a anion gap metabolic acidosis. The patient's ABG wa s reviewed with the patient is appropriate compensation. We will repeat an ABG. No immediate need for a bicarbonate drip at this time. We will monitor closely. 5. Hypernatremia. The patient has a free water deficit of approximately 3.5 liters, continue free water flushes. 6. 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 Etiology is toxic metabolic. Will chema nue to monitor. 7. Dysphagia. The patient has underlying G-tube malfunction. We will place a general surgical con sult with Dr. Blackburn for evaluation of the patient's large ostomy. The patient has also been seen by Dr. Degroot. Hold tube feedings at this time. 8. Mineral bone disorder. The patient is hyperphosphatemic secondary to acute kidney injury. No n eed for phosphate binders. 9. Anemia of chronic disease. Will continue to monitor H and H levels. Give Epogen as needed. 10. Thrombocytosis, etiology is likely reactive. Continue to monitor. 11. Advanced Parkinson's dementia. Continue to monitor. 12. History of coronary artery disease. Continue medical management. 13. History of hypertension. Continue to hold blood pressure medications. 14. Diabetes. Continue to monitor Accu-Cheks q.6 hours. 15. Wounds. Continue wound care. 16. Gastrointestinal and deep venous thrombosis prophylaxis. Continue PPI and heparin. Please note I spent over 40 minutes of critical care time with this patient. Dictated By: OSMAR HERNANDEZ/RAYSA Conf#: [id number] [facility]#: [id number]
[2017-03-13] MEDS ORDERED: FUROSEMIDE 20 MG INJ IV SCH (09:00)
[2017-03-13] MEDS: MULTIVIT/CA CARB/B CMPLX/FA TAB GTB SCH (09:00)
[2017-03-13] MEDS: CITRIC ACID/SODIUM CITRATE 15 ML CUP GTB SCH (09:21)
[2017-03-13] MEDS: PRAMIPEXOLE 0.25 MG TAB GTB SCH (09:21)
[2017-03-13] MEDS: CLOPIDOGREL 75 MG TAB GTB SCH (09:21)
[2017-03-13] MEDS: MEMANTINE 5 MG TAB GTB SCH (09:22)
[2017-03-13] MEDS: FOLIC ACID 1 MG TAB GTB SCH (09:22)
[2017-03-13] MEDS: ASCORBIC ACID 500 MG TAB GTB SCH ×2 (09:23→21:00)
[2017-03-13] MEDS: DOCUSATE SODIUM 100 MG CAP PO SCH ×2 (09:23→21:00)
[2017-03-13] MEDS: CARBIDOPA/LEVODOPA (25/100) TAB GTB SCH ×3 (09:23→21:00)
[2017-03-13] MEDS: FERROUS SULFATE (EC) 325 MG TAB PO SCH ×2 (09:23→21:00)
[2017-03-13] MEDS: HEPARIN 5,000 UNIT/0.5 ML VIAL SC SCH ×2 (09:26→21:06)
[2017-03-13] MEDS: CHLORHEXIDINE GLUCONATE 15 ML UD CUP MT SCH ×2 (09:31→21:05)
--- NOTE | 2017-03-13 09:38 | PN ---
DATE: 03/13/2017 CARDIOLOGY FOLLOWUP SUBJECTIVE: Discussed with the staff. Discussed with Dr. Rosas. The patient remains trach on th e vent in the ICU. She has become more hypotensive overnight, has been on pressors, on Levophed dri p for episode of tachycardia as well as paroxysmal atrial fibrillation. No more bradycardic episode s noted. Patient remains nonverbal. MEDICATIONS: Reviewed as per medication reconciliation, was personally reviewed, which includes mul tiple antibiotics including Levophed, vancomycin. She is on Levophed, Lipitor, Plavix (which is on hold now), carbidopa/levodopa. PHYSICAL EXAMINATION: VITAL SIGNS: Temperature 99.8, T-max 100.3, heart rate of 110, blood pressure 114/46, respiratory r ate of 30. HEENT: Normocephalic, atraumatic. Status post tracheostomy, on the vent. Eyes are closed. CARDIOVASCULAR: Tachycardic. PULMONARY: With mild rhonchi. GASTROINTESTINAL: Soft, status post previous PEG with erythema. EXTREMITIES: Diffuse edema. NEUROLOGIC: Nonverbal, nonresponsive. LABORATORY: WBC of 19.9, hemoglobin 8.3, platelets of 557. Sodium 152, potassium 3.9, BUN of 73, c reatinine 2.72, glucose 107. Lactic acid has been as high as 8 and has come down to 6.4, mag is 1.7 . ABG shows pH of 7.46, pCO2 of 27, pO2 of 127. Chest x-ray from today shows retrocardiac atelectasis versus infiltrate, unchanged, small bilateral pleural effusion. ASSESSMENT AND PLAN: 1. Septic shock. 2. Paroxysmal atrial fibrillation. 3. Hypoxemic hypercapnic respiratory failure, status post tracheostomy, vent dependent. 4. Episode of marked bradycardia, probably related to above, currently improving. 5. Tachycardic. 6. Status post cardiopulmonary arrest. 7. Severe encephalopathy. 8. Anemia. 9. Lactic acidosis. 10. History of fluid overload, congestive heart failure with diastolic dysfunction. 11. Electrolyte abnormality on hypernatremia. 12. Questionable history of coronary artery disease. 13. Severe peripheral vascular disease. RECOMMENDATIONS: Antibiotic is being managed as per internal medicine and ID recommendation. Barbie nue with the vent support. Consider surgery consultation for evaluation for G-tube cellulitis and infection and malfunction. Levophed will be continued and try to be weaned off. ICU care will be c ontinued. We will continue to monitor her closely. More than 38 minutes of critical care time was spent in management of this patient excluding any pro cedures. Dictated By: MILAGROS LEE/RAYSA Conf#: [id number] DID#: [id number]
--- NOTE | 2017-03-13 11:20 | CONS ---
Date/Time of Note Date/Time of Note DATE: 03/13/17 TIME: 11:18 Consult Date/Type/Reason Admit Date/Time March 11, 2017 at 22:57 Initial Consult Date Type of Consultation: Pulmonary ICU Subjective Patient transferred to intensive care yesterday for low blood pressure, received fluid bolus and started on vasopressors. Objective Vital Signs Date Time Temp Pulse Resp B/P Pulse Ox O2 Delivery O2 Flow Rate FiO2 03/13/17 08:00 115 03/13/17 07:00 30 114/43 100 Mechanical Ventilator 03/13/17 05:02 50 03/13/17 04:15 99.8 Intake and Output 03/12/17 03/12/17 03/13/17 14:59 22:59 06:59 Intake Total 75 ml 1706 ml 1514 ml Output Total 400 ml 10 ml Balance 75 ml 1306 ml 1504 ml Exam PHYSICAL EXAMINATION: GENERAL: Chronically ill appearing lady, appears comfortable at rest, no acute distress, currently afebrile. VITAL SIGNS: As above NECK: Trach site clean and intact. CARDIAC: S1, S2, no added sounds or murmurs. CHEST: Diminished air entry bilaterally. ABDOMEN: Soft, nontender. No guarding or rebound. EXTREMITIES: No cyanosis, clubbing, 2+ edema. NEUROLOGIC: Generalized weakness. Results/Medications Result Diagram: 03/13/17 0430 03/13/17 0430 Results 24 hrs Laboratory Tests Test 03/12/17 12:00 03/12/17 12:51 03/12/17 14:00 03/12/17 15:45 White Blood Count 7.2 6.2 11.2 #H Red Blood Count 2.67 L 2.31 L 2.84 #L Hemoglobin 8.1 L 7.1 L 8.5 L Hematocrit 30.2 L 26.6 L 31.6 L Mean Corpuscular Volume 113.1 H 115.2 H 111.3 H Mean Corpuscular Hemoglobin 30.3 30.7 29.9 Mean Corpuscular Hemoglobin Concent 26.8 L 26.7 L 26.9 L Red Cell Distribution Width 20.7 H 20.4 H 20.5 H Platelet Count 562 #H 476 H 613 #H Mean Platelet Volume 9.9 9.9 9.8 Neutrophils % 87.1 H 84.0 H 82.0 H Lymphocytes % 9.0 L 5.0 L 2.0 L Monocytes % 2.5 4.0 2.0 Eosinophils % 0.6 Basophils % 0.1 Nucleated Red Blood Cells % 0.0 Neutrophils # 6.2 5.2 9.2 H Lymphocytes # 0.6 L 0.3 L 0.2 L Monocytes # 0.2 L 0.2 L 0.2 L Eosinophils # 0.0 Basophils # 0.0 Nucleated Red Blood Cells # 0.0 Sodium Level 147 H 144 150 H Potassium Level 4.5 4.4 4.5 Chloride Level 113 H 105 110 Carbon Dioxide Level 19 #L 20 L 23 Anion Gap 20 H 23 H 22 H Blood Urea Nitrogen 73 H 68 H 74 H Creatinine 2.66 H 2.74 H 2.85 H Glucose Level 54 #L 211 # 39 #*L Calcium Level 8.5 8.3 L 8.7 Iron Level 62 Total Iron Binding Capacity 120 L Percent Iron Saturation 52 Ferritin 1430.0 H Total Bilirubin 0.2 0.1 L Direct Bilirubin 0.00 0.00 Indirect Bilirubin 0.2 0.1 Aspartate Amino Transf (AST/SGOT) 24 25 Alanine Aminotransferase (ALT/SGPT) 12 L 7 L Alkaline Phosphatase 91 87 Total Protein 6.6 6.0 L Albumin 2.3 L 2.0 L Globulin 4.30 H 4.00 H Albumin/Globulin Ratio 0.53 0.50 Bedside Glucose 92 Band Neutrophils % 7.0 H 14.0 H Lactic Acid Level 11.0 *H 8.1 *H Troponin I 0.024 Phosphorus Level 7.4 H Magnesium Level 2.2 Test 03/12/17 16:33 03/12/17 17:58 03/12/17 19:50 03/12/17 20:45 Bedside Glucose 41 *L 84 Lactic Acid Level 8.0 *H Blood Gas Specimen Source Blood arterial Arterial Blood Date Drawn 03/12/2017 8:55:18 PM Arterial Blood pH (Temp corrected) 7.342 L Arterial Blood pCO2 (Temp correct) 29.8 L Arterial Blood pO2 (Temp corrected) 309.4 H Arterial Blood HCO3 15.8 L Arterial Blood Base Excess -8.8 L Arterial Blood Oxygen Saturation 99.4 Faustino Test N/A Arterial Blood Gas Puncture Site Right Brachial Arterial Blood Carboxyhemoglobin 0.3 Arterial Blood Methemoglobin 0.4 Blood Gas A-a O2 Differential 373.8 H Oxyhemoglobin Percent 98.7 Total Hemoglobin 10.2 L Blood Gas Temperature 37.0 Blood Gas Respiration Rate 10.0 Blood Gas Actual Respiration Rate 31 Blood Gas Modality VENT - AC FiO2 100.0 Blood Gas Tidal Volume 420.0 Blood Gas Low PEEP Setting 5.0 Blood Gas Notified Whom MG Blood Gas Notified Time 03/12/2017 9:00:23 PM Test 03/13/17 04:30 03/13/17 07:00 White Blood Count 19.9 #H Red Blood Count 2.72 L Hemoglobin 8.3 L Hematocrit 29.2 L Mean Corpuscular Volume 107.4 H Mean Corpuscular Hemoglobin 30.5 Mean Corpuscular Hemoglobin Concent 28.4 L Red Cell Distribution Width 20.2 H Platelet Count 557 H Mean Platelet Volume 9.9 Neutrophils % 96.2 H Lymphocytes % 0.9 L Monocytes % 0.4 Eosinophils % 0.1 Basophils % 0.1 Nucleated Red Blood Cells % 0.0 Neutrophils # 19.1 H Lymphocytes # 0.2 L Monocytes # 0.1 L Eosinophils # 0.0 Basophils # 0.0 Nucleated Red Blood Cells # 0.0 Sodium Level 152 H Potassium Level 3.9 Chloride Level 113 H Carbon Dioxide Level 21 Anion Gap 22 H Blood Urea Nitrogen 73 H Creatinine 2.72 H Glucose Level 107 # Lactic Acid Level 6.4 *H Calcium Level 7.5 L Phosphorus Level 5.0 #H Magnesium Level 1.7 Blood Gas Specimen Source Blood arterial Arterial Blood Date Drawn 03/13/2017 7:50:45 AM Arterial Blood pH (Temp corrected) 7.467 H Arterial Blood pCO2 (Temp correct) 27.3 L Arterial Blood pO2 (Temp corrected) 127.8 H Arterial Blood HCO3 19.3 L Arterial Blood Base Excess -3.6 L Arterial Blood Oxygen Saturation 98.4 Faustino Test ACCEPTAB Arterial Blood Gas Puncture Site Right Radial Arterial Blood Carboxyhemoglobin 0.3 Arterial Blood Methemoglobin 0.5 Blood Gas A-a O2 Differential 198.0 H Oxyhemoglobin Percent 97.6 Total Hemoglobin 8.9 L Blood Gas Temperature 37.0 Blood Gas Respiration Rate 10.0 Blood Gas Actual Respiration Rate 18 Blood Gas Modality VENT - AC FiO2 50.0 Blood Gas Tidal Volume 420.0 Blood Gas Low PEEP Setting 5.0 Blood Gas Notified Whom JLD Blood Gas Notified Time 03/13/2017 8:16:24 AM Medications Current Medications Ascorbic Acid (Vitamin C) 500 mg BID GTB Last administered on 03/13/17 09:23; Admin Dose 500 MG; Start 03/12/17 at 09:00 Bisacodyl (Dulcolax Supp) 10 mg Q48H KS ; Start 03/11/17 at 23:30 Carbidopa/Levodopa (Sinemet (25/ 100)) 1 tab TID GTB Last administered on 09:23; Admin Dose 1 TAB; Start 03/12/17 at 09:00 Chlorhexidine Gluconate (Peridex) 15 ml BID MT Last administered on 03/13/17 09:31; Admin Dose 15 ML; Start 03/12/17 at 09:00 Citric Acid/ Sodium Citrate (Bicitra) 30 ml DAILY GTB Last administered on 03/13 09:21; Admin Dose 30 ML; Start 03/12/17 at 09:00 Clopidogrel Bisulfate (plaVIX) 75 mg DAILY GTB Last administered on 03/13/17 09:21; Admin Dose 75 MG; Start 03/12/17 at 09:00 Docusate Sodium (Colace) 100 mg BID PO Last administered on 03/13/17 09:23; Admin Dose 100 MG; Start 03/12/17 at 09:00 Donepezil HCl (Aricept) 10 mg QHS GTB Last administered on 03/12/17 22:16; Admin Dose 10 MG; Start 03/12/17 at 21:00 Epoetin Vasyl (Epogen (Non Esrd/Non Oncology)) 10,000 units MoWeFr@17 SC ; Start 03/13/17 at 17:00 Ferrous Sulfate (Ferrous Sulfate (Ec)) 325 mg BID PO Last administered on 09:23; Admin Dose 325 MG; Start 03/12/17 at 09:00 Folic Acid (Folic Acid) 1 mg DAILY GTB Last administered on 03/13/17 09:22; Admin Dose 1 MG; Start 03/12/17 at 09:00 Furosemide (Lasix) 40 mg DAILY@06 GTB Last administered on 03/12/17 07:04; Admin Dose 40 MG; Start 03/12/17 at 06:00; Status Future Hold Heparin Sodium (Porcine) (Heparin (5000 Units/0.5 ml)) 5,000 unit BID SC Last administered on 03/13/17 09:26; Admin Dose 5,000 UNIT; Start 03/12/17 at 09:00 Lactobacillus Acidophilus/ Rhamnosus (Culturelle) 1 cap QHS GTB Last administered on 03/12/17 20:43; Admin Dose 1 CAP; Start 03/12/17 at 21:00 Magnesium Hydroxide (Milk Of Mag) 30 ml Q24H GTB Last administered on 23:34; Admin Dose 30 ML; Start 03/11/17 at 23:30 Memantine (Namenda) 5 mg QAM GTB Last administered on 03/13/17 09:22; Admin Dose 5 MG; Start 03/12/17 at 09:00 Metoprolol Tartrate (Lopressor) 25 mg Q12H GTB Last administered on 03/12/17 12:05; Admin Dose 25 MG; Start 03/11/17 at 23:30; Status Future Hold Multivit/Ca Carb/ B Cmplx/FA/Prenat (Radhika-John) 1 tab DAILY GTB Last administered on 03/12/17 09:55; Admin Dose 1 TAB; Start 03/12/17 at 09:00 Pramipexole (Mirapex) 0.5 mg DAILY GTB Last administered on 03/13/17 09:21; Admin Dose 0.5 MG; Start 03/12/17 at 09:00 Sodium Biphosphate/ Sodium Phosphate (Fleet Enema Pediatric) 118 ml Q72H PRN [place] CONSTIPATION; Start 03/11/17 at 23:30 Atorvastatin Calcium (Lipitor) 5 mg DAILY@21 PO Last administered on 03/12/17 20:43; Admin Dose 5 MG; Start 03/12/17 at 21:00 Furosemide 20 mg 20 mg DAILY IV Last administered on 03/13/17 09:11; Admin Dose 20 MG; Start 03/13/17 at 09:00 Cefepime HCl 50 ml @ 100 mls/hr Q24H IVPB Last administered on 03/12/17 19:15 ; Admin Dose 100 MLS/HR; Start 03/12/17 at 14:00 Vancomycin HCl 250 ml @ 125 mls/hr Q48H IVPB ; Start 03/14/17 at 14:00 Levofloxacin/ Dextrose 100 ml @ 100 mls/hr Q48H IVPB ; Start 03/14/17 at 16:00 Norepinephrine 16 mg/Dextrose 500 ml @ 0 mls/hr TITRATE IV Last administered on 03/13/17 09:33; Admin Dose 18.75 MLS/HR; Start 03/13/17 at 10:00 Dextrose/Sodium Chloride 1,000 ml @ 100 mls/hr Q10H IV Last administered on 04:27; Admin Dose 100 MLS/HR; Start 03/12/17 at 17:30 Phenylephrine HCl (Ryan-Syneph) 250 ml @ 75 mls/hr TITRATE PRN IV BLOOD PRESSURE SUPPORT; Start 03/12/17 at 21:30 Acetaminophen (Tylenol Liquid) 650 mg Q4H PRN GTB PAIN AND OR ELEVATED TEMP Last administered on 03/12/17 23:55; Admin Dose 650 MG; Start 03/13/17 at 00:00 Assessment/Plan Chief Complaint/Hosp Course IMPRESSION AND PLAN: 1. Septic shock likely secondary to urinary tract infection cellulitis. Currently on vasopressors and broad-spectrum antibiotics 2. Vent dependent respiratory failure. Will require continued mechanical ventilation. 3. G-tube malfunction with abdominal wall cellulitis. Will require antibiotics and replacement of G-tube. 4. Urinary tract infection. Continue antibiotics per primary team. 5. Encephalopathy at baseline. 6. Dysphagia. Plan as above. 7. Continue DVT and GI prophylaxis. 8. Consider addressing CODE STATUS. Problems: JAR[facility] CLAIRE [facility] March 13, 2017 11:20
--- NOTE | 2017-03-13 13:19 | PN ---
DATE: 03/13/2017 INFECTIOUS DISEASE PROGRESS NOTE SUBJECTIVE: No acute changes. The patient is in ICU, on pressors, with a T-max of 100.3. She is n onverbal, noncommunicative. VITAL SIGNS: Heart rate 110, respirations 30, blood pressure 114/43, saturation 100 on 60 FIO2. LABORATORY DATA: WBC 19.9, H and H 8.3 and 29.2, platelets 557, neutrophils 96.2, no bands. BUN 73 , creatinine 2.72. Lactic acid 6.4. MICROBIOLOGY: Blood culture growing gram-positive cocci in clusters. Urine culture consistent with contaminant. Urinalysis on admission was positive for nitrite, leukocyte esterase, WBCs, and bacte kandy. INDWELLINGS: Trach, PEG, Collazo. DIAGNOSTICS: Chest x-ray revealed retrocardiac atelectasis versus infiltrate, unchanged. ANTIMICROBIALS: The patient is on IV vancomycin, IV Levaquin, cefepime. PHYSICAL EXAMINATION: GENERAL: This is a chronically ill-appearing, elderly woman who is in no distress. HEENT: Head atraumatic, normocephalic. Sclerae anicteric. Buccal mucosa dry. NECK: Supple. Tracheostomy present. CHEST: Rise symmetrical. Breath sounds diminished to bases. HEART: S1, S2. ABDOMEN: Obese with significant erythema around G-tube site. EXTREMITIES: With trace edema. SKIN: With multiple decubitus and pressure sores. ASSESSMENT: 1. Severe sepsis with shock, multifactorial. 2. G-tube site cellulitis. 3. Urinary tract infection as per urinalysis. 4. Healthcare-associated pneumonia. 5. Multiple decubitus. 6. Chronic encephalopathy. 7. Acute on chronic kidney disease, possibly acute tubular necrosis. 8. Diabetes. PLAN: The patient remains hemodynamically unstable. We are going to change antibiotics to meropene m, keep her on IV vancomycin, await for final cultures, and repeat blood cultures, continue local wo und care, and pending new PEG once the patient is hemodynamically stable. Dictated By: DOROTHY CORONADO NATURAL RESOURCES TECHNICIAN for GABINO TINAJERO MD NI/NTS Conf#: [id number] DID#: [id number]
[2017-03-13 15:11] LABS: POTASSIUM 3.6 mmol/L (3.5-5.1)
[2017-03-13 15:14] LABS: CREATININE 2.86 mg/dl (0.44-1.00)
[2017-03-13 15:15] LABS: CALCIUM 7.4 mg/dl (8.4-10.2)
[2017-03-13] MEDS: NYSTATIN 30 GM POWDER BTL TOP SCH ×2 (16:22→21:09)
[2017-03-13] MEDS: ACETAMINOPHEN 650MG/20.3ML CUP GTB PRN (16:22)
[2017-03-13] MEDS: COLLAGENASE 30 GM TUBE TOP SCH (16:22)
[2017-03-13] MEDS: EPOETIN 10000 UNITS/ML (NON ESRD/NON ONCOLOGY) SC SCH (16:23)
--- NOTE | 2017-03-13 18:53 | CONS ---
Date/Time of Note Date/Time of Note DATE: 03/13/17 TIME: 18:51 Assessment/Plan Assessment/Plan Additional Assessment/Plan IMPRESSION: 1. Malfunctioning gastrostomy tube. 2. Cellulitis as well as contact dermatitis around the G-tube site. 3. Vent-dependent respiratory failure. 4. Chronic kidney disease. 5. Hypernatremia. 6. Parkinson disease. 7. Hypotension, probably related to sepsis. 8 renal failure 9. 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 Plan G-tube removed, along with the gastrocutaneous fistula to shrink in size Continue antibiotic and pressor support Once the condition is more stable then we will make an attempt to close the G- tube site and put a new G-tube thank Consultation Date/Type/Reason Admit Date/Time March 11, 2017 at 22:57 Initial Consult Date Type of Consultation: Pulmonary ICU 24 HR Interval Summary Subjective hx not possible: pt critical Exam/Review of Systems Vital Signs Vitals Vital Signs Date Time Temp Pulse Resp B/P Pulse Ox O2 Delivery O2 Flow Rate FiO2 03/13/17 18:00 87 26 100/38 100 Mechanical Ventilator 03/13/17 17:43 40 03/13/17 16:00 99.2 Intake and Output 03/12/17 03/12/17 03/13/17 15:00 23:00 07:00 Intake Total 150 ml 1781 ml 1490 ml Output Total 400 ml 15 ml Balance 150 ml 1381 ml 1475 ml Exam Constitutional: alert, oriented, well developed Psych: nl mood/affect, no complaints Head: atraumatic, normocephalic Eyes: EOMI, PERRL, nl conjunctiva, nl lids, nl sclera ENMT: nl external ears & nose, nl lips & teeth, nl nasal mucosa & septum Neck: non-tender, supple Respiratory: clear to auscultation, normal air movement Cardiovascular: nl pulses, regular rate and rhythm Gastrointestinal: nl liver, spleen, non-tender, soft Musculoskeletal: nl extremities to inspection, nl gait and stance Extremities: normal pulses 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, nl mental status, nl speech, nl strength Skin: nl turgor, No rash or lesions Lymph: nl lymph nodes Results Result Diagram: 03/13/17 0430 03/13/17 1432 Results 24 hrs Laboratory Tests Test 03/12/17 19:50 03/12/17 20:45 03/13/17 04:30 03/13/17 07:00 Lactic Acid Level 8.0 *H 6.4 *H Blood Gas Specimen Source Blood arterial Blood arterial Arterial Blood Date Drawn 03/12/2017 8:55:18 PM 03/13/2017 7:50:45 AM Arterial Blood pH (Temp corrected) 7.342 L 7.467 H Arterial Blood pCO2 (Temp correct) 29.8 L 27.3 L Arterial Blood pO2 (Temp corrected) 309.4 H 127.8 H Arterial Blood HCO3 15.8 L 19.3 L Arterial Blood Base Excess -8.8 L -3.6 L Arterial Blood Oxygen Saturation 99.4 98.4 Faustino Test N/A ACCEPTAB Arterial Blood Gas Puncture Site Right Brachial Right Radial Arterial Blood Carboxyhemoglobin 0.3 0.3 Arterial Blood Methemoglobin 0.4 0.5 Blood Gas A-a O2 Differential 373.8 H 198.0 H Oxyhemoglobin Percent 98.7 97.6 Total Hemoglobin 10.2 L 8.9 L Blood Gas Temperature 37.0 37.0 Blood Gas Respiration Rate 10.0 10.0 Blood Gas Actual Respiration Rate 31 18 Blood Gas Modality VENT - AC VENT - AC FiO2 100.0 50.0 Blood Gas Tidal Volume 420.0 420.0 Blood Gas Low PEEP Setting 5.0 5.0 Blood Gas Notified Whom MG JLD Blood Gas Notified Time 03/12/2017 9:00:23 PM 03/13/2017 8:16:24 AM White Blood Count 19.9 #H Red Blood Count 2.72 L Hemoglobin 8.3 L Hematocrit 29.2 L Mean Corpuscular Volume 107.4 H Mean Corpuscular Hemoglobin 30.5 Mean Corpuscular Hemoglobin Concent 28.4 L Red Cell Distribution Width 20.2 H Platelet Count 557 H Mean Platelet Volume 9.9 Neutrophils % 96.2 H Lymphocytes % 0.9 L Monocytes % 0.4 Eosinophils % 0.1 Basophils % 0.1 Nucleated Red Blood Cells % 0.0 Neutrophils # 19.1 H Lymphocytes # 0.2 L Monocytes # 0.1 L Eosinophils # 0.0 Basophils # 0.0 Nucleated Red Blood Cells # 0.0 Sodium Level 152 H Potassium Level 3.9 Chloride Level 113 H Carbon Dioxide Level 21 Anion Gap 22 H Blood Urea Nitrogen 73 H Creatinine 2.72 H Glucose Level 107 # Calcium Level 7.5 L Phosphorus Level 5.0 #H Magnesium Level 1.7 Test 03/13/17 12:00 03/13/17 14:32 03/13/17 17:55 Lactic Acid Level 5.9 *H 5.5 *H Sodium Level 151 H Potassium Level 3.6 Chloride Level 114 H Carbon Dioxide Level 23 Anion Gap 18 H Blood Urea Nitrogen 73 H Creatinine 2.86 H Glucose Level 142 Calcium Level 7.4 L Medications Medications Current Medications Ascorbic Acid (Vitamin C) 500 mg BID GTB Last administered on 03/13/17 09:23; Admin Dose 500 MG; Start 03/12/17 at 09:00 Bisacodyl (Dulcolax Supp) 10 mg Q48H TX ; Start 03/11/17 at 23:30 Carbidopa/Levodopa (Sinemet (25/ 100)) 1 tab TID GTB Last administered on 14:06; Admin Dose 1 TAB; Start 03/12/17 at 09:00 Chlorhexidine Gluconate (Peridex) 15 ml BID MT Last administered on 03/13/17 09:31; Admin Dose 15 ML; Start 03/12/17 at 09:00 Citric Acid/ Sodium Citrate (Bicitra) 30 ml DAILY GTB Last administered on 03/13 09:21; Admin Dose 30 ML; Start 03/12/17 at 09:00 Clopidogrel Bisulfate (plaVIX) 75 mg DAILY GTB Last administered on 03/13/17 09:21; Admin Dose 75 MG; Start 03/12/17 at 09:00 Docusate Sodium (Colace) 100 mg BID PO Last administered on 03/13/17 09:23; Admin Dose 100 MG; Start 03/12/17 at 09:00 Donepezil HCl (Aricept) 10 mg QHS GTB Last administered on 03/12/17 22:16; Admin Dose 10 MG; Start 03/12/17 at 21:00 Epoetin Vasyl (Epogen (Non Esrd/Non Oncology)) 10,000 units MoWeFr@17 SC Last administered on 03/13/17 16:23; Admin Dose 10,000 UNITS; Start 03/13/17 at 17: 00 Ferrous Sulfate (Ferrous Sulfate (Ec)) 325 mg BID PO Last administered on 09:23; Admin Dose 325 MG; Start 03/12/17 at 09:00 Folic Acid (Folic Acid) 1 mg DAILY GTB Last administered on 03/13/17 09:22; Admin Dose 1 MG; Start 03/12/17 at 09:00 Furosemide (Lasix) 40 mg DAILY@06 GTB Last administered on 03/12/17 07:04; Admin Dose 40 MG; Start 03/12/17 at 06:00; Status Future Hold Heparin Sodium (Porcine) (Heparin (5000 Units/0.5 ml)) 5,000 unit BID SC Last administered on 03/13/17 09:26; Admin Dose 5,000 UNIT; Start 03/12/17 at 09:00 Lactobacillus Acidophilus/ Rhamnosus (Culturelle) 1 cap QHS GTB Last administered on 03/12/17 20:43; Admin Dose 1 CAP; Start 03/12/17 at 21:00 Magnesium Hydroxide (Milk Of Mag) 30 ml Q24H GTB Last administered on 23:34; Admin Dose 30 ML; Start 03/11/17 at 23:30 Memantine (Namenda) 5 mg QAM GTB Last administered on 03/13/17 09:22; Admin Dose 5 MG; Start 03/12/17 at 09:00 Metoprolol Tartrate (Lopressor) 25 mg Q12H GTB Last administered on 03/12/17 12:05; Admin Dose 25 MG; Start 03/11/17 at 23:30; Status Future Hold Multivit/Ca Carb/ B Cmplx/FA/Prenat (Radhika-John) 1 tab DAILY GTB Last administered on 03/13/17 09:00; Admin Dose 1 TAB; Start 03/12/17 at 09:00 Pramipexole (Mirapex) 0.5 mg DAILY GTB Last administered on 03/13/17 09:21; Admin Dose 0.5 MG; Start 03/12/17 at 09:00 Sodium Biphosphate/ Sodium Phosphate (Fleet Enema Pediatric) 118 ml Q72H PRN [place] CONSTIPATION; Start 03/11/17 at 23:30 Atorvastatin Calcium (Lipitor) 5 mg DAILY@21 PO Last administered on 03/12/17 20:43; Admin Dose 5 MG; Start 03/12/17 at 21:00 Furosemide 20 mg 20 mg DAILY IV Last administered on 03/13/17 09:11; Admin Dose 20 MG; Start 03/13/17 at 09:00 Vancomycin HCl 250 ml @ 125 mls/hr Q48H IVPB ; Start 03/14/17 at 14:00 Norepinephrine 16 mg/Dextrose 500 ml @ 0 mls/hr TITRATE IV Last administered on 03/13/17 09:33; Admin Dose 18.75 MLS/HR; Start 03/13/17 at 10:00 Dextrose/Sodium Chloride 1,000 ml @ 100 mls/hr Q10H IV Last administered on 14:06; Admin Dose 100 MLS/HR; Start 03/12/17 at 17:30 Phenylephrine HCl (Ryan-Syneph) 250 ml @ 75 mls/hr TITRATE PRN IV BLOOD PRESSURE SUPPORT; Start 03/12/17 at 21:30 Acetaminophen 650 mg 650 mg Q4H PRN GTB PAIN AND OR ELEVATED TEMP Last administered on 03/13/17 16:22; Admin Dose 650 MG; Start 03/13/17 at 00:00 Meropenem (Merrem 500 Mg/ 100 ml (Pmx)) 100 ml @ 200 mls/hr Q12 IVPB ; Start at 21:00 Nystatin (Nystatin Powder) 1 applic BID TOP Last administered on 03/13/17 16: 22; Admin Dose 1 APPLIC; Start 03/13/17 at 15:00 Collagenase (Santyl) 1 applic DAILY TOP Last administered on 03/13/17 16:22; Admin Dose 1 APPLIC; Start 03/13/17 at 15:00 SYLWIA SY MD March 13, 2017 18:53
[2017-03-13] MEDS: LACTOBACILLUS RHAMNOSUS CAP GTB SCH (21:00)
[2017-03-13] MEDS: ATORVASTATIN 10 MG TAB PO SCH (21:00)
[2017-03-13] MEDS: DONEPEZIL 10 MG TAB GTB SCH (21:00)
[2017-03-13] MEDS: MEROPENEM 500 MG/100 ML (PMX) 100 ML IVPB SCH (22:03)
[2017-03-13] MEDS: BISACODYL 10 MG SUPP PR SCH (23:30)
[2017-03-13] MEDS: MAGNESIUM HYDROXIDE 30ML CUP GTB SCH (23:30)
[2017-03-14] VITALS (107 sets, daily range): BP systolic 82–125; BP diastolic 26–90; PULSE 71–119; RESP 14–32
[2017-03-14] MEDS: DEXTROSE 5%-0.9% NACL 1,000 ML IV SCH ×3 (00:12→19:30)
[2017-03-14 05:15] LABS: ADD SCAN DIFF NO
[2017-03-14 05:26] LABS: ABNORMAL IP MESSAGE 1; HEMATOCRIT 24.5 % (37.0-47.0); MEAN CORPUSCULAR HGB CONC 27.8 g/dl (32.0-37.0); MEAN CORPUSCULAR VOLUME 107.9 fl (82.0-101.0); MEAN PLATELET VOLUME 9.9 fl (7.4-10.4); PLATELET COUNT 365 10^3/UL (140-415); RED BLOOD COUNT 2.27 10^6/ul (4.20-5.40); WHITE BLOOD COUNT 13.1 10^3/ul (4.8-10.8)
[2017-03-14 05:43] LABS: HEMOGLOBIN 6.8 g/dl (12.0-16.0)
[2017-03-14 05:45] LABS: POTASSIUM 3.7 mmol/L (3.5-5.1)
[2017-03-14 05:47] LABS: CREATININE 2.96 mg/dl (0.44-1.00)
[2017-03-14 05:48] LABS: CALCIUM 7.6 mg/dl (8.4-10.2); PHOSPHORUS 4.8 mg/dl (2.5-4.9)
[2017-03-14] MEDS ORDERED: GLUCOSE GEL 15 GRAM TUBE BUCCAL PRN (07:30)
[2017-03-14] MEDS ORDERED: DEXTROSE 50% 50 ML SYRINGE IV PRN ×2 (07:30)
[2017-03-14] MEDS ORDERED: GLUCOSE GEL 15 GRAM TUBE PO PRN ×2 (07:30)
[2017-03-14] MEDS ORDERED: GLUCAGON 1 MG INJ IM PRN (07:30)
--- NOTE | 2017-03-14 07:55 | PN ---
DATE: 03/14/2017 SUBJECTIVE: The patient remains critically ill, on pressor support, being weaned down. The patient continues to have minimal urinary output, approximately 70 mL in the last 12 hours. No other acute events have been noted. No gross evidence of bleeding. The patient's G-tube was removed yesterday . OBJECTIVE: VITAL SIGNS: Blood pressure is 101/46, respirations 20, pulse 77, temperature 98.6. I's AND O'S: The patient had 3.4 liters in and 245 mL out. HEENT: Head is normocephalic. NECK: Supple. HEART: Regular rate. LUNGS: Showed diminished breath sounds at the base. ABDOMEN: Soft. Noted erythema. Noted ostomy. No rebound or guarding. EXTREMITIES: Negative for clubbing or cyanosis. Positive edema. DERMATOLOGIC: No rashes. MUSCULOSKELETAL: Have no joint effusion. NEUROLOGIC: No change in exam, as the patient is obtunded. LABORATORY DATA: Shows sodium 151, potassium 2.7, chloride 115, BUN 73, creatinine 2.96, calcium 7. 6. Lactic acid is 5.0. White count 13.1, hemoglobin 6.8, hematocrit 24.5, platelet count is 365. The patient's ABG was reviewed. IMAGING: Chest x-ray shows retrocardiac atelectasis versus infiltrate, unchanged; small bilateral p leural effusions, unchanged. ASSESSMENT AND PLAN: 1. Septic shock. Etiology source is multifactorial secondary to possible healthcare-associated pne umonia, UTI, and cellulitis. The patient's blood cultures are positive with gram-positive cocci. C urrently the patient is on broad spectrum antibiotics. Will continue the current treatment plan, co ntinue pressor support, continue IV fluids. Will follow up with infectious disease for recommendati ons. Attempt to wean off pressors if possible. 2. Ventilator-dependent respiratory failure. Vent settings have been reviewed. ABG was reviewed. Continue vent settings and monitor. 3. Oligoanuric acute kidney injury on top of chronic kidney disease stage 4. Etiology of acute kid holly injury is secondary to acute tubular necrosis due to septic acute kidney injury, ischemic hypope rfusion and shock. The patient's urinary output remains minimal. At this point, [facility], supportive care, renally dose medications, continue pressor support, continue to maintain a MAP of 65, continue antibiotic therapy. No immediate need for renal replacement therapy at this time. 4. Abdominal cellulitis with infected G-tube. The patient's G-tube was removed. At this point, wi ll continue to monitor, continue wound care. Will follow up with GI for recommendations. Will also place a general surgical consult for evaluation. Continue the current antibiotic regimen. 5. Dysphagia. The patient's G-tube has been removed. An OG tube will be placed for medication, wi th free water flushes. 6. Hypernatremia. The patient has a free water deficit of approximately 3 liters. Will resume corina e water flushes once an OG-tube is in place. 7. Mixed acid base disorder. The patient has a respiratory alkalosis and metabolic acidosis. The patient's lactic acid remains elevated at 5. The patient's ABG shows a pH of 7.46 with a pCO2 of 27 . At this point, continue to monitor. No need for bicarbonate therapy. 8. 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 Etiology is toxic metabolic. Continue t o monitor. 9. Mineral bone disorder. Continue to monitor calcium and phosphorus levels. 10. Anemia. The patient had a decline in hemoglobin. Unclear if this is dilutional or from a blee d. Will repeat H and H levels. If they remain low, will transfuse 2 units of PRBC. Will hold hepa rin. 11. History of coronary artery disease. Continue medical management. 12. Diabetes. Continue Accu-Cheks q. 6 hours. Continue insulin sliding scale. 13. Decubitus wound. Continue wound care. 14. Thrombocytosis. Likely reactive. Continue to monitor. Please note, I spent over 35 minutes of critical care time with this patient. Dictated By: OSMAR MONTAGUE DO NR/NTS Conf#: [id number] DID#: [id number]
[2017-03-14 08:07] LABS: HEMATOCRIT 30.6 % (37.0-47.0); HEMOGLOBIN 8.2 g/dl (12.0-16.0)
[2017-03-14] MEDS ORDERED: EPOETIN 4000 UNITS/1 ML INJ (ESRD) SC SCH (08:30)
--- NOTE | 2017-03-14 08:47 | RADRPT ---
Echocardiogram Report Patient Name: MANDEEP GARZA Gender: Female Date: 1930 Study Date: 14-Mar-2017 Asphalt Spreader: Darrel Bell RDCS Location: 106 Ref. Physician: MILAGROS MILLS Quality: Adequate Procedures: Transthoracic echocardiogram with complete 2D, M-Mode, and doppler examination. Indications: r/o vegetation. 2D/M Mode Doppler Measurement Value Normal Ranges Measurement Value Normal Ranges LVIDd 2D 4.1 3.5 - 5.6 cm AV Peak Jason 1.7 m/sec LVIDs 2D 2.3 2.1 - 4.1 cm AV Peak PG 10.9 mmHg LVPWd 2D 0.8 0.6 - 1.1 cm LVOT Peak Jason 1.3 m/sec IVSd 2D 0.9 0.6 - 1.1 cm LVOT Peak PG 7.3 mmHg AoR Diam 2D 2.5 2.0 - 3.7 cm MV E Peak Jason 1.0 m/sec EDV 2D 75.9 cm3 MV A Peak Jason 1.1 m/sec ESV 2D 11.7 cm3 MV E/A 0.9 LA Dimen 2D 3.6 2.3 - 4.0 cm MV Decel Time 222 msec MV Decel [place] 4 MV E/A 0.9 TR Peak Jason 2.6 m/sec TR Peak PG 26.7 mmHg RVSP 35.0 mmHg Findings Left Ventricle: Normal left ventricular systolic function. Normal left ventricular cavity size. Normal left ventricular wall thickness. Ejection fraction is visually estimated at 65 %. Tissue Doppler/Mitral Doppler indices are consistent with impaired relaxation (Stage I diastolic dysfunction). Right Ventricle: Normal right ventricular size. Normal right ventricular systolic function. Left Atrium: The left atrium is normal in size. Right Atrium: The right atrium is normal in size. Mitral Valve: Normal appearance of the mitral valve. Mild mitral annular calcification. Trace mitral regurgitation. Aortic Valve: Aortic valve not well visualized. Aortic sclerosis without stenosis. Tricuspid Valve: Normal appearance of the tricuspid valve. Estimated peak PA systolic pressure 35 mmHg. There is mild tricuspid regurgitation. Pulmonic Valve: Normal pulmonic valve appearance. Pericardium: Normal pericardium with no significant pericardial effusion. Aorta: Normal aortic root. IVC: Normal IVC with respiratory collapse, however, patient on ventilator. Conclusions 1.Normal left ventricular systolic function. Normal left ventricular cavity size. Normal left ventricular wall thickness. Ejection fraction is visually estimated at 65 %. Tissue Doppler/Mitral Doppler indices are consistent with impaired relaxation (Stage I diastolic dysfunction). 2.Normal appearance of the mitral valve. Mild mitral annular calcification. Trace mitral regurgitation. 3.Aortic valve not well visualized. Aortic sclerosis without stenosis. 4.Normal appearance of the tricuspid valve. Estimated peak PA systolic pressure 35 mmHg. There is mild tricuspid regurgitation. 5.Normal IVC with respiratory collapse, however, patient on ventilator. Electronically Signed By: Milagros Mills 14-Mar-2017 08:47:24 -0700 Patient Name: MANDEEP GARZA Study Date: 14-Mar-2017 [id number]
[2017-03-14] MEDS: DOCUSATE SODIUM 100 MG CAP PO SCH ×2 (09:00→21:00)
[2017-03-14] MEDS: HEPARIN 5,000 UNIT/0.5 ML VIAL SC SCH (09:00)
[2017-03-14] MEDS: MULTIVIT/CA CARB/B CMPLX/FA TAB GTB SCH (09:00)
--- NOTE | 2017-03-14 09:09 | PN ---
DATE: 03/14/2017 CARDIOLOGY FOLLOWUP PROGRESS NOTE SUBJECTIVE: Discussed with the staff, discussed with Dr. Rosas. Rhythm strip was reviewed. The patient remains in sinus rhythm. Short episode of atrial fibrillation. Heart overall has been stab le. Still on Levophed though. On the vent. Remains nonverbal. MEDICATIONS: Reviewed as per medical reconciliation sheet which was personally reviewed. PHYSICAL EXAMINATION: VITAL SIGNS: Temperature 98.1, T-max is 100 yesterday morning, heart rate of 77, blood pressure of 105/44, respiratory rate of 28. Saturating 100% on the vent. HEENT: Normocephalic, atraumatic. Status post intubation on the vent. Eyes are closed. CARDIOVASCULAR: Regular rate and rhythm, systolic murmur. PULMONARY: With mild rhonchi, diffuse. GASTROINTESTINAL: Soft, nontender. EXTREMITIES: With positive diffuse edema. NEUROLOGIC: No response to verbal stimuli. LABORATORY: WBC of 13.1, hemoglobin 6.8, platelets of 365. Sodium 151, potassium 3.7, BUN of 73, c reatinine 2.96, glucose of 101. Lactic acid is still elevated at 5.8%. Blood cultures show Staph a ureus, 2 different sets. ASSESSMENT AND PLAN: 1. Septic shock. 2. Paroxysmal atrial fibrillation. 3. Episode of marked bradycardia. 4. Hypoxemic hypercapnic respiratory failure, status post tracheostomy, vent-dependent. 5. Status post cardiopulmonary arrest, most likely related to respiratory failure. 6. Severe anemia. 7. Lactic acidosis. 8. Staphylococcus aureus bacteremia. 9. Hypernatremia. 10. Questionable history of coronary artery disease. 11. History of peripheral vascular disease. RECOMMENDATIONS: We will continue with the Levophed as needed. Try to titrate off. Multiple antib iotics including vancomycin, being adjusted as per ID's recommendations. I will order an echocardio gram to record any gross evidence of vegetation. Electrolytes will be corrected as needed. Renal f ailure management and treatment as per primary team who is nephrology group. Continue with ICU care . More than 38 minutes of critical care time was spent with this patient excluding any procedures. Dictated By: MILAGROS LEE/RAYSA Conf#: [id number] DID#: [id number] CC: OSMAR ROSAS DO;*EndCC*
[2017-03-14 09:41] LABS: EOSINOPHILS # 0.5 10^3/ul (0.0-0.5); LYMPHOCYTES # 0.7 10^3/ul (0.8-2.9)
[2017-03-14] MEDS: CITRIC ACID/SODIUM CITRATE 15 ML CUP GTB SCH ×2 (09:43→12:32)
[2017-03-14] MEDS: ASCORBIC ACID 500 MG TAB GTB SCH ×2 (09:44→21:21)
[2017-03-14] MEDS: CHLORHEXIDINE GLUCONATE 15 ML UD CUP MT SCH ×2 (09:44→21:20)
[2017-03-14] MEDS: FOLIC ACID 1 MG TAB GTB SCH (09:44)
[2017-03-14] MEDS: CARBIDOPA/LEVODOPA (25/100) TAB GTB SCH ×3 (09:44→21:21)
[2017-03-14] MEDS: CLOPIDOGREL 75 MG TAB GTB SCH (09:44)
[2017-03-14] MEDS: COLLAGENASE 30 GM TUBE TOP SCH (09:45)
[2017-03-14] MEDS: NYSTATIN 30 GM POWDER BTL TOP SCH ×2 (09:45→21:22)
[2017-03-14] MEDS: PRAMIPEXOLE 0.25 MG TAB GTB SCH (09:56)
[2017-03-14] MEDS: MEROPENEM 500 MG/100 ML (PMX) 100 ML IVPB SCH ×2 (09:57→21:20)
--- NOTE | 2017-03-14 10:09 | CONS ---
Date/Time of Note Date/Time of Note DATE: 03/14/17 TIME: 10:02 Consult Date/Type/Reason Admit Date/Time March 11, 2017 at 22:57 Type of Consultation: Pulmonary ICU Subjective Patient remains unresponsive on mechanical ventilation. Currently not requiring vasopressors. Objective Vital Signs Date Time Temp Pulse Resp B/P Pulse Ox O2 Delivery O2 Flow Rate FiO2 03/14/17 08:00 82 03/14/17 07:00 28 105/44 100 Mechanical Ventilator 03/14/17 05:39 30 03/14/17 04:00 98.1 Intake and Output 03/13/17 03/13/17 03/14/17 15:00 23:00 07:00 Intake Total 1417.25 ml 1174.98 ml 726.25 ml Output Total 30 ml 170 ml 40 ml Balance 1387.25 ml 1004.98 ml 686.25 ml Exam PHYSICAL EXAMINATION: GENERAL: Chronically ill appearing lady, appears comfortable at rest, no acute distress, currently afebrile. VITAL SIGNS: As above NECK: Trach site clean and intact. CARDIAC: S1, S2, no added sounds or murmurs. CHEST: Diminished air entry bilaterally. ABDOMEN: Soft, nontender. No guarding or rebound. EXTREMITIES: No cyanosis, clubbing, 2+ edema. NEUROLOGIC: Generalized weakness. Results/Medications Result Diagram: 03/14/17 0731 03/14/17 0430 Results 24 hrs Laboratory Tests Test 03/13/17 12:00 03/13/17 14:32 03/13/17 17:55 03/14/17 00:00 Lactic Acid Level 5.9 *H 5.5 *H 5.0 *H Sodium Level 151 H Potassium Level 3.6 Chloride Level 114 H Carbon Dioxide Level 23 Anion Gap 18 H Blood Urea Nitrogen 73 H Creatinine 2.86 H Glucose Level 142 Calcium Level 7.4 L Test 03/14/17 01:25 03/14/17 04:30 03/14/17 06:00 03/14/17 07:31 Bedside Glucose 110 White Blood Count 13.1 #H Red Blood Count 2.27 L Hemoglobin 6.8 *L 8.2 #L Hematocrit 24.5 L 30.6 #L Mean Corpuscular Volume 107.9 H Mean Corpuscular Hemoglobin 30.0 Mean Corpuscular Hemoglobin Concent 27.8 L Red Cell Distribution Width 21.0 H Platelet Count 365 # Mean Platelet Volume 9.9 Neutrophils % 84.0 H Band Neutrophils % 7.0 H Lymphocytes % 5.0 L Eosinophils % 4.0 Neutrophils # 11.0 H Lymphocytes # 0.7 L Eosinophils # 0.5 Sodium Level 151 H Potassium Level 3.7 Chloride Level 115 H Carbon Dioxide Level 23 Anion Gap 17 H Blood Urea Nitrogen 73 H Creatinine 2.96 H Glucose Level 101 # Calcium Level 7.6 L Phosphorus Level 4.8 Magnesium Level 2.0 Lactic Acid Level 5.8 *H Medications Current Medications Ascorbic Acid (Vitamin C) 500 mg BID GTB Last administered on 03/14/17 09:44; Admin Dose 500 MG; Start 03/12/17 at 09:00 Bisacodyl (Dulcolax Supp) 10 mg Q48H AR ; Start 03/11/17 at 23:30 Carbidopa/Levodopa (Sinemet (25/ 100)) 1 tab TID GTB Last administered on 09:44; Admin Dose 1 TAB; Start 03/12/17 at 09:00 Chlorhexidine Gluconate (Peridex) 15 ml BID MT Last administered on 03/14/17 09:44; Admin Dose 15 ML; Start 03/12/17 at 09:00 Citric Acid/ Sodium Citrate (Bicitra) 30 ml DAILY GTB Last administered on 03/13 09:21; Admin Dose 30 ML; Start 03/12/17 at 09:00 Clopidogrel Bisulfate (plaVIX) 75 mg DAILY GTB Last administered on 03/14/17 09:44; Admin Dose 75 MG; Start 03/12/17 at 09:00 Docusate Sodium (Colace) 100 mg BID PO Last administered on 03/13/17 09:23; Admin Dose 100 MG; Start 03/12/17 at 09:00 Donepezil HCl (Aricept) 10 mg QHS GTB Last administered on 03/12/17 22:16; Admin Dose 10 MG; Start 03/12/17 at 21:00 Epoetin Vasyl (Epogen (Non Esrd/Non Oncology)) 10,000 units MoWeFr@17 SC Last administered on 03/13/17 16:23; Admin Dose 10,000 UNITS; Start 03/13/17 at 17: 00 Ferrous Sulfate (Ferrous Sulfate (Ec)) 325 mg BID PO Last administered on 09:23; Admin Dose 325 MG; Start 03/12/17 at 09:00 Folic Acid (Folic Acid) 1 mg DAILY GTB Last administered on 03/14/17 09:44; Admin Dose 1 MG; Start 03/12/17 at 09:00 Furosemide (Lasix) 40 mg DAILY@06 GTB Last administered on 03/12/17 07:04; Admin Dose 40 MG; Start 03/12/17 at 06:00; Status Future Hold Heparin Sodium (Porcine) (Heparin (5000 Units/0.5 ml)) 5,000 unit BID SC Last administered on 03/13/17 21:06; Admin Dose 5,000 UNIT; Start 03/12/17 at 09:00 Lactobacillus Acidophilus/ Rhamnosus (Culturelle) 1 cap QHS GTB Last administered on 03/12/17 20:43; Admin Dose 1 CAP; Start 03/12/17 at 21:00 Magnesium Hydroxide (Milk Of Mag) 30 ml Q24H GTB Last administered on 23:34; Admin Dose 30 ML; Start 03/11/17 at 23:30 Memantine (Namenda) 5 mg QAM GTB Last administered on 03/13/17 09:22; Admin Dose 5 MG; Start 03/12/17 at 09:00 Metoprolol Tartrate (Lopressor) 25 mg Q12H GTB Last administered on 03/12/17 12:05; Admin Dose 25 MG; Start 03/11/17 at 23:30; Status Future Hold Multivit/Ca Carb/ B Cmplx/FA/Prenat (Radhika-John) 1 tab DAILY GTB Last administered on 03/13/17 09:00; Admin Dose 1 TAB; Start 03/12/17 at 09:00 Pramipexole (Mirapex) 0.5 mg DAILY GTB Last administered on 03/14/17 09:56; Admin Dose 0.5 MG; Start 03/12/17 at 09:00 Sodium Biphosphate/ Sodium Phosphate (Fleet Enema Pediatric) 118 ml Q72H PRN AR CONSTIPATION; Start 03/11/17 at 23:30 Atorvastatin Calcium (Lipitor) 5 mg DAILY@21 PO Last administered on 03/12/17 20:43; Admin Dose 5 MG; Start 03/12/17 at 21:00 Furosemide 20 mg 20 mg DAILY IV Last administered on 03/13/17 09:11; Admin Dose 20 MG; Start 03/13/17 at 09:00; Status Future Hold Vancomycin HCl 250 ml @ 125 mls/hr Q48H IVPB ; Start 03/14/17 at 14:00 Norepinephrine 16 mg/Dextrose 500 ml @ 0 mls/hr TITRATE IV Last administered on 03/13/17 09:33; Admin Dose 18.75 MLS/HR; Start 03/13/17 at 10:00 Dextrose/Sodium Chloride 1,000 ml @ 100 mls/hr Q10H IV Last administered on 09:46; Admin Dose 100 MLS/HR; Start 03/12/17 at 17:30 Phenylephrine HCl (Ryan-Syneph) 250 ml @ 75 mls/hr TITRATE PRN IV BLOOD PRESSURE SUPPORT; Start 03/12/17 at 21:30 Acetaminophen 650 mg 650 mg Q4H PRN GTB PAIN AND OR ELEVATED TEMP Last administered on 03/13/17 16:22; Admin Dose 650 MG; Start 03/13/17 at 00:00 Meropenem (Merrem 500 Mg/ 100 ml (Pmx)) 100 ml @ 200 mls/hr Q12 IVPB Last administered on 03/14/17 09:57; Admin Dose 200 MLS/HR; Start 03/13/17 at 21:00 Nystatin (Nystatin Powder) 1 applic BID TOP Last administered on 03/14/17 09: 45; Admin Dose 1 APPLIC; Start 03/13/17 at 15:00 Collagenase (Santyl) 1 applic DAILY TOP Last administered on 03/14/17 09:45; Admin Dose 1 APPLIC; Start 03/13/17 at 15:00 Epoetin Vasyl (Epogen (Esrd)) 12,000 units ONCE SC ; Start 03/14/17 at 08:30; Stop 03/14/17 at 23:00 Insulin Aspart (Novolog Insulin Pen) NOVOLOG *MILD* ALGORI... Q6 SC ; Start at 12:00 Miscellaneous Information 1 ea NOTE XX ; Start 03/14/17 at 07:30 Glucose (Glutose) 15 gm Q15M PRN PO DECREASED GLUCOSE; Start 03/14/17 at 07:30 Glucose (Glutose) 22.5 gm Q15M PRN PO DECREASED GLUCOSE; Start 03/14/17 at 07: 30 Dextrose (D50w Syringe) 25 ml Q15M PRN IV DECREASED GLUCOSE; Start 03/14/17 at 07:30 Dextrose (D50w Syringe) 50 ml Q15M PRN IV DECREASED GLUCOSE; Start 03/14/17 at 07:30 Glucagon (Glucagen) 1 mg Q15M PRN IM DECREASED GLUCOSE; Start 03/14/17 at 07:30 Glucose (Glutose) 15 gm Q15M PRN BUCCAL DECREASED GLUCOSE; Start 03/14/17 at 07 :30 Assessment/Plan Chief Complaint/Hosp Course IMPRESSION AND PLAN: 1. Status post septic shock likely secondary to urinary tract infection cellulitis. 2. Vent dependent respiratory failure. Will require continued mechanical ventilation. 3. G-tube malfunction with abdominal wall cellulitis. Will require antibiotics and replacement of G-tube. 4. Urinary tract infection. Continue antibiotics per primary team. 5. Encephalopathy at baseline. 6. Dysphagia. Plan as above. 7. Continue DVT and GI prophylaxis. 8. Hypernatremia insufficiency continue renal recommendations IV fluids free water. Transfer to telemetry okay from pulmonary standpoint Consider [place] evaluation Problems: JARED CLAIRE MD, [facility] March 14, 2017 10:09
--- NOTE | 2017-03-14 10:23 | CONS ---
Date/Time of Note Date/Time of Note DATE: 03/14/17 TIME: 10:20 Assessment/Plan Assessment/Plan Additional Assessment/Plan Additional Assessment/Plan IMPRESSION: 1. Malfunctioning gastrostomy tube. 2. Cellulitis as well as contact dermatitis around the G-tube site. 3. Vent-dependent respiratory failure. 4. Chronic kidney disease. 5. Hypernatremia. 6. Parkinson disease. 7. Hypotension, probably related to sepsis. 8 renal failure 9. 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 Septic shock patient has MRSA bacteremia and UTI Plan G-tube removed, along with the gastrocutaneous fistula to shrink in size Continue antibiotic and pressor support Once the condition is more stable then we will make an attempt to close the G- tube site and put a new G-tube Consultation Date/Type/Reason Admit Date/Time March 11, 2017 at 22:57 Type of Consultation: Pulmonary ICU 24 HR Interval Summary Subjective hx not possible: pt critical Exam/Review of Systems Vital Signs Vitals Vital Signs Date Time Temp Pulse Resp B/P Pulse Ox O2 Delivery O2 Flow Rate FiO2 03/14/17 08:00 82 03/14/17 07:00 28 105/44 100 Mechanical Ventilator 03/14/17 05:39 30 03/14/17 04:00 98.1 Intake and Output 03/13/17 03/13/17 03/14/17 15:00 23:00 07:00 Intake Total 1417.25 ml 1174.98 ml 726.25 ml Output Total 30 ml 170 ml 40 ml Balance 1387.25 ml 1004.98 ml 686.25 ml Exam Neck: non-tender, supple Cardiovascular: nl pulses, regular rate and rhythm Gastrointestinal: nl liver, spleen, non-tender, other (Very large gastrostomy stoma, stomach wall is also visualized.), soft Extremities: normal pulses Neurological: unresponsive Results Result Diagram: 03/14/17 0731 03/14/17 0430 Results 24 hrs Laboratory Tests Test 03/13/17 12:00 03/13/17 14:32 03/13/17 17:55 03/14/17 00:00 Lactic Acid Level 5.9 *H 5.5 *H 5.0 *H Sodium Level 151 H Potassium Level 3.6 Chloride Level 114 H Carbon Dioxide Level 23 Anion Gap 18 H Blood Urea Nitrogen 73 H Creatinine 2.86 H Glucose Level 142 Calcium Level 7.4 L Test 03/14/17 01:25 03/14/17 04:30 03/14/17 06:00 03/14/17 07:31 Bedside Glucose 110 White Blood Count 13.1 #H Red Blood Count 2.27 L Hemoglobin 6.8 *L 8.2 #L Hematocrit 24.5 L 30.6 #L Mean Corpuscular Volume 107.9 H Mean Corpuscular Hemoglobin 30.0 Mean Corpuscular Hemoglobin Concent 27.8 L Red Cell Distribution Width 21.0 H Platelet Count 365 # Mean Platelet Volume 9.9 Neutrophils % 84.0 H Band Neutrophils % 7.0 H Lymphocytes % 5.0 L Eosinophils % 4.0 Neutrophils # 11.0 H Lymphocytes # 0.7 L Eosinophils # 0.5 Sodium Level 151 H Potassium Level 3.7 Chloride Level 115 H Carbon Dioxide Level 23 Anion Gap 17 H Blood Urea Nitrogen 73 H Creatinine 2.96 H Glucose Level 101 # Calcium Level 7.6 L Phosphorus Level 4.8 Magnesium Level 2.0 Lactic Acid Level 5.8 *H Medications Medications Current Medications Ascorbic Acid (Vitamin C) 500 mg BID GTB Last administered on 03/14/17 09:44; Admin Dose 500 MG; Start 03/12/17 at 09:00 Bisacodyl (Dulcolax Supp) 10 mg Q48H RI ; Start 03/11/17 at 23:30 Carbidopa/Levodopa (Sinemet (25/ )) 1 tab TID GTB Last administered on 09:44; Admin Dose 1 TAB; Start 03/12/17 at 09:00 Chlorhexidine Gluconate (Peridex) 15 ml BID MT Last administered on 03/14/17 09:44; Admin Dose 15 ML; Start 03/12/17 at 09:00 Citric Acid/ Sodium Citrate (Bicitra) 30 ml DAILY GTB Last administered on 03/13 09:21; Admin Dose 30 ML; Start 03/12/17 at 09:00 Clopidogrel Bisulfate (plaVIX) 75 mg DAILY GTB Last administered on 03/14/17 09:44; Admin Dose 75 MG; Start 03/12/17 at 09:00 Docusate Sodium (Colace) 100 mg BID PO Last administered on 03/13/17 09:23; Admin Dose 100 MG; Start 03/12/17 at 09:00 Donepezil HCl (Aricept) 10 mg QHS GTB Last administered on 03/12/17 22:16; Admin Dose 10 MG; Start 03/12/17 at 21:00 Epoetin Vasyl (Epogen (Non Esrd/Non Oncology)) 10,000 units MoWeFr@17 SC Last administered on 03/13/17 16:23; Admin Dose 10,000 UNITS; Start 03/13/17 at 17: 00 Ferrous Sulfate (Ferrous Sulfate (Ec)) 325 mg BID PO Last administered on 09:23; Admin Dose 325 MG; Start 03/12/17 at 09:00 Folic Acid (Folic Acid) 1 mg DAILY GTB Last administered on 03/14/17 09:44; Admin Dose 1 MG; Start 03/12/17 at 09:00 Furosemide (Lasix) 40 mg DAILY@06 GTB Last administered on 03/12/17 07:04; Admin Dose 40 MG; Start 03/12/17 at 06:00; Status Future Hold Heparin Sodium (Porcine) (Heparin (5000 Units/0.5 ml)) 5,000 unit BID SC Last administered on 03/13/17 21:06; Admin Dose 5,000 UNIT; Start 03/12/17 at 09:00 Lactobacillus Acidophilus/ Rhamnosus (Culturelle) 1 cap QHS GTB Last administered on 03/12/17 20:43; Admin Dose 1 CAP; Start 03/12/17 at 21:00 Magnesium Hydroxide (Milk Of Mag) 30 ml Q24H GTB Last administered on 23:34; Admin Dose 30 ML; Start 03/11/17 at 23:30 Memantine (Namenda) 5 mg QAM GTB Last administered on 03/13/17 09:22; Admin Dose 5 MG; Start 03/12/17 at 09:00 Metoprolol Tartrate (Lopressor) 25 mg Q12H GTB Last administered on 03/12/17 12:05; Admin Dose 25 MG; Start 03/11/17 at 23:30; Status Future Hold Multivit/Ca Carb/ B Cmplx/FA/Prenat (Radhika-John) 1 tab DAILY GTB Last administered on 03/13/17 09:00; Admin Dose 1 TAB; Start 03/12/17 at 09:00 Pramipexole (Mirapex) 0.5 mg DAILY GTB Last administered on 03/14/17 09:56; Admin Dose 0.5 MG; Start 03/12/17 at 09:00 Sodium Biphosphate/ Sodium Phosphate (Fleet Enema Pediatric) 118 ml Q72H PRN RI CONSTIPATION; Start 03/11/17 at 23:30 Atorvastatin Calcium (Lipitor) 5 mg DAILY@21 PO Last administered on 03/12/17 20:43; Admin Dose 5 MG; Start 03/12/17 at 21:00 Furosemide 20 mg 20 mg DAILY IV Last administered on 03/13/17 09:11; Admin Dose 20 MG; Start 03/13/17 at 09:00; Status Future Hold Vancomycin HCl 250 ml @ 125 mls/hr Q48H IVPB ; Start 03/14/17 at 14:00 Norepinephrine 16 mg/Dextrose 500 ml @ 0 mls/hr TITRATE IV Last administered on 03/13/17 09:33; Admin Dose 18.75 MLS/HR; Start 03/13/17 at 10:00 Dextrose/Sodium Chloride 1,000 ml @ 100 mls/hr Q10H IV Last administered on 09:46; Admin Dose 100 MLS/HR; Start 03/12/17 at 17:30 Phenylephrine HCl (Ryan-Syneph) 250 ml @ 75 mls/hr TITRATE PRN IV BLOOD PRESSURE SUPPORT; Start 03/12/17 at 21:30 Acetaminophen 650 mg 650 mg Q4H PRN GTB PAIN AND OR ELEVATED TEMP Last administered on 03/13/17 16:22; Admin Dose 650 MG; Start 03/13/17 at 00:00 Meropenem (Merrem 500 Mg/ 100 ml (Pmx)) 100 ml @ 200 mls/hr Q12 IVPB Last administered on 03/14/17 09:57; Admin Dose 200 MLS/HR; Start 03/13/17 at 21:00 Nystatin (Nystatin Powder) 1 applic BID TOP Last administered on 03/14/17 09: 45; Admin Dose 1 APPLIC; Start 03/13/17 at 15:00 Collagenase (Santyl) 1 applic DAILY TOP Last administered on 03/14/17 09:45; Admin Dose 1 APPLIC; Start 03/13/17 at 15:00 Epoetin Vasyl (Epogen (Esrd)) 12,000 units ONCE SC ; Start 03/14/17 at 08:30; Stop 03/14/17 at 23:00 Insulin Aspart (Novolog Insulin Pen) NOVOLOG *MILD* ALGORI... Q6 SC ; Start at 12:00 Miscellaneous Information 1 ea NOTE XX ; Start 03/14/17 at 07:30 Glucose (Glutose) 15 gm Q15M PRN PO DECREASED GLUCOSE; Start 03/14/17 at 07:30 Glucose (Glutose) 22.5 gm Q15M PRN PO DECREASED GLUCOSE; Start 03/14/17 at 07: 30 Dextrose (D50w Syringe) 25 ml Q15M PRN IV DECREASED GLUCOSE; Start 03/14/17 at 07:30 Dextrose (D50w Syringe) 50 ml Q15M PRN IV DECREASED GLUCOSE; Start 03/14/17 at 07:30 Glucagon (Glucagen) 1 mg Q15M PRN IM DECREASED GLUCOSE; Start 03/14/17 at 07:30 Glucose (Glutose) 15 gm Q15M PRN BUCCAL DECREASED GLUCOSE; Start 03/14/17 at 07 :30 SYLWIA SY MD March 14, 2017 10:23
[2017-03-14] MEDS: INSULIN ASPART [NOVOLOG] 3 ML PEN SC SCH ×2 (12:00→18:00)
[2017-03-14] MEDS: MEMANTINE 5 MG TAB GTB SCH (12:42)
--- NOTE | 2017-03-14 13:13 | PN ---
DATE: 03/14/2017 SUBJECTIVE: Patient remains comfortable on vent. Still on low dose of pressors. She is afebrile since yesterday. VITAL SIGNS: Temperature 98.1, pulse 90, respirations 22, blood pressure 105/44 , saturation 100%. LABORATORY DATA: WBC 13.1, H and H 6.8 and 24.5, platelets 365, neutrophils 84 , bands 7, lymphs 5, BUN 73, creatinine 2.96. Lactic acid 4.9, sodium 151. MICROBIOLOGY: Blood culture growing MRSA. Urine culture growing gram-negative rods. Stool for C. diff came back negative. INDWELLINGS: Trach, PEG, Collazo catheter. ANTIMICROBIALS: The patient is on: 1. IV vancomycin. 2. Meropenem. PHYSICAL EXAMINATION: GENERAL: This is a chronically ill-appearing, elderly woman who is in no distress. HEENT: Head atraumatic, normocephalic. Sclerae anicteric. Buccal mucosa dry. NECK: Supple. Tracheostomy present. CHEST: Rise symmetrical. Breath sounds diminished to bases. HEART: S1, S2. ABDOMEN: Soft. Bowel sounds present. The patient has significant erythema around G-tube site. EXTREMITIES: Without cyanosis. ASSESSMENT: 1. Sepsis with shock. 2. Methicillin-resistant Staphylococcus aureus bacteremia, possibly secondary to infected G-tube, status post removal. 3. G-tube site cellulitis. 4. Urinary tract infection. 5. Healthcare-associated pneumonia. 6. Multiple decubitus ulcers. 7. Acute on chronic anemia. 8. Acute kidney injury. 9. Diabetes. PLAN: The patient remains on pressors. White blood cell count tracing down. She still has significant lactic acidosis which is also tracing down. She is being seen by multiple consultants. G-tube was removed. We will repeat blood cultures in a.m., continue her on current regimen in regards to antibiotics, transfuse as needed. Follow recommendations of consultants. Dictated By: DOROTHY CORONADO VISUAL TRAINING AIDE for GABINO BOSTON/RAYSA Conf#: [id number] DID#: [id number]
[2017-03-14] MEDS ORDERED: VANCOMYCIN 1 GM in NS 250 ML IVPB SCH (14:00)
[2017-03-14] MEDS: FERROUS SULFATE 60 MG/ML 5ML CUP GTB SCH ×2 (14:02→21:20)
[2017-03-14] MEDS ORDERED: LEVOFLOXACIN 500MG/D5W (PMX) 100 ML IVPB SCH (16:00)
[2017-03-14 18:05] LABS: ADD SCAN DIFF NO
[2017-03-14 18:09] LABS: ABNORMAL IP MESSAGE 1; BASOPHILS % 0.1 % (0.0-2.0); EOSINOPHILS # 0.5 10^3/ul (0.0-0.5); EOSINOPHILS % 3.3 % (0.0-7.0); HEMATOCRIT 24.4 % (37.0-47.0); LYMPHOCYTES # 0.5 10^3/ul (0.8-2.9); LYMPHOCYTES % 3.2 % (15.0-51.0); MEAN CORPUSCULAR HEMOGLOBIN 30.4 pg (29.0-33.0); MEAN CORPUSCULAR HGB CONC 28.7 g/dl (32.0-37.0); MEAN CORPUSCULAR VOLUME 106.1 fl (82.0-101.0); MEAN PLATELET VOLUME 9.3 fl (7.4-10.4); MONOCYTE # 0.3 10^3/ul (0.3-0.9); MONOCYTES % 1.8 % (0.0-11.0); NEUTROPHIL # 12.7 10^3/ul (1.6-7.5); PLATELET COUNT 363 10^3/UL (140-415); RED CELL DISTRIBUTION WIDTH 20.6 % (11.5-14.5); WHITE BLOOD COUNT 14.1 10^3/ul (4.8-10.8)
[2017-03-14 18:13] LABS: NEUTROPHILS % 90.5 % (39.0-77.0)
[2017-03-14] MEDS: ATORVASTATIN 10 MG TAB PO SCH (21:20)
[2017-03-14] MEDS: LACTOBACILLUS RHAMNOSUS CAP GTB SCH (21:21)
[2017-03-14] MEDS: DONEPEZIL 10 MG TAB GTB SCH (21:25)
--- NOTE | 2017-03-14 22:54 | CONS ---
Date/Time of Note Date/Time of Note DATE: 03/14/17 TIME: 22:53 Assessment/Plan Assessment/Plan Chief Complaint/Hosp Course Dictation #: [id number] Problems: Consultation Date/Type/Reason Admit Date/Time March 11, 2017 at 22:57 Date of Consultation: March 14, 2017 Type of Consultation: Gen Surgical Reason for Consultation Gastrocutaneous fistula Abdominal wall cellulitis Obesity, bmi 31 Psychological: nl mood/affect, no complaints Social History Smoking Status: Unknown if ever smoked Exam/Review of Systems Vital Signs Vitals Vital Signs Date Time Temp Pulse Resp B/P Pulse Ox O2 Delivery O2 Flow Rate FiO2 03/14/17 22:15 89 16 101/40 100 03/14/17 22:00 Mechanical Ventilator 03/14/17 20:00 35 03/14/17 20:00 98.5 Intake and Output 03/13/17 03/13/17 03/14/17 15:00 23:00 07:00 Intake Total 1417.25 ml 1174.98 ml 726.25 ml Output Total 30 ml 170 ml 40 ml Balance 1387.25 ml 1004.98 ml 686.25 ml Results Result Diagram: 03/14/17 1755 03/14/17 0430 Results 24 hrs Laboratory Tests Test 03/14/17 00:00 03/14/17 01:25 03/14/17 04:30 03/14/17 06:00 Lactic Acid Level 5.0 *H 5.8 *H Bedside Glucose 110 White Blood Count 13.1 #H Red Blood Count 2.27 L Hemoglobin 6.8 *L Hematocrit 24.5 L Mean Corpuscular Volume 107.9 H Mean Corpuscular Hemoglobin 30.0 Mean Corpuscular Hemoglobin Concent 27.8 L Red Cell Distribution Width 21.0 H Platelet Count 365 # Mean Platelet Volume 9.9 Neutrophils % 84.0 H Band Neutrophils % 7.0 H Lymphocytes % 5.0 L Eosinophils % 4.0 Neutrophils # 11.0 H Lymphocytes # 0.7 L Eosinophils # 0.5 Sodium Level 151 H Potassium Level 3.7 Chloride Level 115 H Carbon Dioxide Level 23 Anion Gap 17 H Blood Urea Nitrogen 73 H Creatinine 2.96 H Glucose Level 101 # Calcium Level 7.6 L Phosphorus Level 4.8 Magnesium Level 2.0 Test 03/14/17 07:31 03/14/17 12:10 03/14/17 12:28 03/14/17 17:55 Hemoglobin 8.2 #L 7.0 L Hematocrit 30.6 #L 24.4 #L Lactic Acid Level 4.9 *H 3.7 H Bedside Glucose 91 White Blood Count 14.1 H Red Blood Count 2.30 L Mean Corpuscular Volume 106.1 H Mean Corpuscular Hemoglobin 30.4 Mean Corpuscular Hemoglobin Concent 28.7 L Red Cell Distribution Width 20.6 H Platelet Count 363 Mean Platelet Volume 9.3 Neutrophils % 90.5 H Lymphocytes % 3.2 L Monocytes % 1.8 Eosinophils % 3.3 Basophils % 0.1 Nucleated Red Blood Cells % 0.0 Neutrophils # 12.7 H Lymphocytes # 0.5 L Monocytes # 0.3 Eosinophils # 0.5 Basophils # 0.0 Nucleated Red Blood Cells # 0.0 Test 03/14/17 17:59 03/14/17 18:00 Bedside Glucose 143 101 Medications Medications Current Medications Ascorbic Acid (Vitamin C) 500 mg BID GTB Last administered on 03/14/17 21:21; Admin Dose 500 MG; Start 03/12/17 at 09:00 Bisacodyl (Dulcolax Supp) 10 mg Q48H ME ; Start 03/11/17 at 23:30 Carbidopa/Levodopa (Sinemet (/ )) 1 tab TID GTB Last administered on 21:21; Admin Dose 1 TAB; Start 03/12/17 at 09:00 Chlorhexidine Gluconate (Peridex) 15 ml BID MT Last administered on 03/14/17 21:20; Admin Dose 15 ML; Start 03/12/17 at 09:00 Citric Acid/ Sodium Citrate (Bicitra) 30 ml DAILY GTB Last administered on 03/14 12:32; Admin Dose 30 ML; Start 03/12/17 at 09:00 Clopidogrel Bisulfate (plaVIX) 75 mg DAILY GTB Last administered on 03/14/17 09:44; Admin Dose 75 MG; Start 03/12/17 at 09:00 Docusate Sodium (Colace) 100 mg BID PO Last administered on 03/13/17 09:23; Admin Dose 100 MG; Start 03/12/17 at 09:00 Donepezil HCl (Aricept) 10 mg QHS GTB Last administered on 03/14/17 21:25; Admin Dose 10 MG; Start 03/12/17 at 21:00 Epoetin Vasyl (Epogen (Non Esrd/Non Oncology)) 10,000 units MoWeFr@17 SC Last administered on 03/13/17 16:23; Admin Dose 10,000 UNITS; Start 03/13/17 at 17: 00 Folic Acid (Folic Acid) 1 mg DAILY GTB Last administered on 03/14/17 09:44; Admin Dose 1 MG; Start 03/12/17 at 09:00 Furosemide (Lasix) 40 mg DAILY@06 GTB Last administered on 03/12/17 07:04; Admin Dose 40 MG; Start 03/12/17 at 06:00; Status Future Hold Heparin Sodium (Porcine) (Heparin (5000 Units/0.5 ml)) 5,000 unit BID SC Last administered on 03/13/17 21:06; Admin Dose 5,000 UNIT; Start 03/12/17 at 09:00 ; Status Future Hold Lactobacillus Acidophilus/ Rhamnosus (Culturelle) 1 cap QHS GTB Last administered on 03/14/17 21:21; Admin Dose 1 CAP; Start 03/12/17 at 21:00 Magnesium Hydroxide (Milk Of Mag) 30 ml Q24H GTB Last administered on 23:34; Admin Dose 30 ML; Start 03/11/17 at 23:30 Memantine (Namenda) 5 mg QAM GTB Last administered on 03/14/17 12:42; Admin Dose 5 MG; Start 03/12/17 at 09:00 Metoprolol Tartrate (Lopressor) 25 mg Q12H GTB Last administered on 03/12/17 12:05; Admin Dose 25 MG; Start 03/11/17 at 23:30; Status Future Hold Multivit/Ca Carb/ B Cmplx/FA/Prenat (Radhika-John) 1 tab DAILY GTB Last administered on 03/14/17 09:00; Admin Dose 1 TAB; Start 03/12/17 at 09:00 Pramipexole (Mirapex) 0.5 mg DAILY GTB Last administered on 03/14/17 09:56; Admin Dose 0.5 MG; Start 03/12/17 at 09:00 Sodium Biphosphate/ Sodium Phosphate (Fleet Enema Pediatric) 118 ml Q72H PRN ME CONSTIPATION; Start 03/11/17 at 23:30 Atorvastatin Calcium (Lipitor) 5 mg DAILY@21 PO Last administered on 03/14/17 21:20; Admin Dose 5 MG; Start 03/12/17 at 21:00 Furosemide 20 mg 20 mg DAILY IV Last administered on 03/13/17 09:11; Admin Dose 20 MG; Start 03/13/17 at 09:00; Status Future Hold Vancomycin HCl 250 ml @ 125 mls/hr Q48H IVPB Last administered on 03/14/17 14 :03; Admin Dose 125 MLS/HR; Start 03/14/17 at 14:00 Norepinephrine 16 mg/Dextrose 500 ml @ 0 mls/hr TITRATE IV Last administered on 03/13/17 09:33; Admin Dose 18.75 MLS/HR; Start 03/13/17 at 10:00 Dextrose/Sodium Chloride 1,000 ml @ 100 mls/hr Q10H IV Last administered on 09:46; Admin Dose 100 MLS/HR; Start 03/12/17 at 17:30 Phenylephrine HCl (Ryan-Syneph) 250 ml @ 75 mls/hr TITRATE PRN IV BLOOD PRESSURE SUPPORT; Start 03/12/17 at 21:30 Acetaminophen 650 mg 650 mg Q4H PRN GTB PAIN AND OR ELEVATED TEMP Last administered on 03/13/17 16:22; Admin Dose 650 MG; Start 03/13/17 at 00:00 Meropenem (Merrem 500 Mg/ 100 ml (Pmx)) 100 ml @ 200 mls/hr Q12 IVPB Last administered on 03/14/17 21:20; Admin Dose 200 MLS/HR; Start 03/13/17 at 21:00 Nystatin (Nystatin Powder) 1 applic BID TOP Last administered on 03/14/17 21: 22; Admin Dose 1 APPLIC; Start 03/13/17 at 15:00 Collagenase (Santyl) 1 applic DAILY TOP Last administered on 03/14/17 09:45; Admin Dose 1 APPLIC; Start 03/13/17 at 15:00 Epoetin Vasyl (Epogen (Esrd)) 12,000 units ONCE SC Last administered on 12:44; Admin Dose 12,000 UNITS; Start 03/14/17 at 08:30; Stop 03/14/17 at 23:00 Insulin Aspart (Novolog Insulin Pen) NOVOLOG *MILD* ALGORI... Q6 SC ; Start at 12:00 Miscellaneous Information 1 ea NOTE XX ; Start 03/14/17 at 07:30 Glucose (Glutose) 15 gm Q15M PRN PO DECREASED GLUCOSE; Start 03/14/17 at 07:30 Glucose (Glutose) 22.5 gm Q15M PRN PO DECREASED GLUCOSE; Start 03/14/17 at 07: 30 Dextrose (D50w Syringe) 25 ml Q15M PRN IV DECREASED GLUCOSE; Start 03/14/17 at 07:30 Dextrose (D50w Syringe) 50 ml Q15M PRN IV DECREASED GLUCOSE; Start 03/14/17 at 07:30 Glucagon (Glucagen) 1 mg Q15M PRN IM DECREASED GLUCOSE; Start 03/14/17 at 07:30 Glucose (Glutose) 15 gm Q15M PRN BUCCAL DECREASED GLUCOSE; Start 03/14/17 at 07 :30 Ferrous Sulfate (Feosol Liquid Cup) 300 mg BID GTB Last administered on 21:20; Admin Dose 300 MG; Start 03/14/17 at 12:35 JOCELYN FINE MD March 14, 2017 22:54
[2017-03-14] MEDS: MAGNESIUM HYDROXIDE 30ML CUP GTB SCH (23:09)
[2017-03-15] VITALS (107 sets, daily range): BP systolic 75–122; BP diastolic 30–57; PULSE 62–139; RESP 11–19
[2017-03-15 02:57] LABS: POTASSIUM 3.2 mmol/L (3.5-5.1)
[2017-03-15 03:00] LABS: CREATININE 2.97 mg/dl (0.44-1.00); PHOSPHORUS 4.7 mg/dl (2.5-4.9)
[2017-03-15 03:01] LABS: CALCIUM 7.9 mg/dl (8.4-10.2); MAGNESIUM 2.1 mg/dl (1.7-2.5)
[2017-03-15] MEDS ORDERED: POTASSIUM CHLORIDE 50 ML IVPB ONE (04:00)
[2017-03-15] MEDS: DEXTROSE 5%-0.9% NACL 1,000 ML IV SCH ×2 (05:30)
[2017-03-15] MEDS: INSULIN ASPART [NOVOLOG] 3 ML PEN SC SCH ×5 (06:00→23:34)
[2017-03-15 06:08] LABS: ADD SCAN DIFF NO
[2017-03-15 06:10] LABS: AADO2 Arterial 60.5 mmHg (7.0-24.0); Allen Test ACCEPTAB; Arterial Base Excess -2.1 mmol/L (-3.0-3); Arterial COHb 0.3 % (0.0-3.0); Arterial Fraction of Oxyhgb 96.8 % (93.0-99.0); Arterial MetHb 0.5 % (0.0-1.5); Arterial Total Hemglobin 7.2 g/dl (12.0-18.0); Blood Gas Mean Airway Pressure 10; MODE VENT - AC
[2017-03-15 06:16] LABS: ABNORMAL IP MESSAGE 1; BASOPHILS % 0.1 % (0.0-2.0); EOSINOPHILS # 0.6 10^3/ul (0.0-0.5); EOSINOPHILS % 4.7 % (0.0-7.0); HEMATOCRIT 24.6 % (37.0-47.0); LYMPHOCYTES # 0.6 10^3/ul (0.8-2.9); LYMPHOCYTES % 4.7 % (15.0-51.0); MEAN CORPUSCULAR HEMOGLOBIN 29.8 pg (29.0-33.0); MEAN CORPUSCULAR HGB CONC 27.6 g/dl (32.0-37.0); MEAN CORPUSCULAR VOLUME 107.9 fl (82.0-101.0); MEAN PLATELET VOLUME 9.8 fl (7.4-10.4); MONOCYTE # 0.3 10^3/ul (0.3-0.9); NEUTROPHIL # 11.1 10^3/ul (1.6-7.5); NEUTROPHILS % 87.8 % (39.0-77.0); PLATELET COUNT 319 10^3/UL (140-415); RED BLOOD COUNT 2.28 10^6/ul (4.20-5.40); RED CELL DISTRIBUTION WIDTH 20.9 % (11.5-14.5); WHITE BLOOD COUNT 12.7 10^3/ul (4.8-10.8)
[2017-03-15 06:41] LABS: HEMOGLOBIN 6.8 g/dl (12.0-16.0)
--- NOTE | 2017-03-15 07:10 | RADRPT ---
PROCEDURE: XR Chest. CLINICAL INDICATION: CHF TECHNIQUE: An AP view of the chest was obtained. COMPARISON: Chest x-ray dated 03/13/2017 FINDINGS: A tracheostomy tube is in place. The tip of the enteric tube is near the GE junction with proximal side hole in the distal esophagus. There is prominence of the interstitial markings with mild peribronchial cuffing. There are small b ilateral pleural effusions. No pneumothorax is seen. The cardiomediastinal silhouette is mildly en larged . Calcifications are seen within the aortic arch. The osseous structures demonstrate senesce nt changes. IMPRESSION: 1. Mild prominence of the interstitial markings with peribronchial cuffing. Findings may reflect mi ld underlying interstitial edema, chronic lung changes or small airways infection. Overall, no signi ficant interval change. 2. Small bilateral pleural effusions, also unchanged. 3. Mild cardiomegaly and aortic atherosclerosis. 4. Tubes and lines, as described above. The tip of the enteric tube is near the gastroesophageal ju nction. Advancing 10-12 cm is recommended. RPTAT: HH .Mirian Kenny MD, MD Date Time Electronically viewed and signed by .Mirian Kenny MD, on 03/15/2017 07:09 .G/
[2017-03-15] MEDS ORDERED: POTASSIUM CHLORIDE 250 ML IVPB ONE (07:30)
[2017-03-15] MEDS ORDERED: FUROSEMIDE 40 MG INJ IV ONE (07:30)
--- NOTE | 2017-03-15 07:40 | CONS ---
DATE OF ADMISSION: 03/11/2017 DATE OF CONSULTATION: 03/14/2017 TYPE OF CONSULTATION: Surgical. REFERRING PHYSICIAN: Dr. Brendan Rosas. OTHER PHYSICIANS INVOLVED: 1. Dr. Lavelle Dalton. 2. Dr. Phil Medley. 3. Dr. Sarabjit Claudio. 4. Dr. Giuseppe Mills. 5. ____. 4. Dr. Pedro Degroot. CHIEF COMPLAINT 1. Large gastrocutaneous fistula. 2. Abdominal wall cellulitis. 3. Sepsis. 4. Obesity with BMI of 31. 5. PEG malfunction. 6. Congestive heart failure, systolic and diastolic. 7. Coronary artery disease. 8. Parkinson's dementia with encephalopathy. 9. Anemia. CHIEF COMLAINT: MRSA bacteremia . HISTORY OF PRESENT ILLNESS: Kailey French is an 86-year-old female with multiple significant comor bidities, who due to advanced Alzheimer dementia and encephalopathy, has functional quadriplegia, an d has been getting PEG tube feedings; however, the PEG site has enlarged significantly and has activ e cellulitis and contact dermatitis. The patient was recently admitted to the ICU with sepsis and i s found to have MRSA bacteremia as above. CT scan of the abdomen and pelvis was obtained which did not identify any abscesses. Surgical consultations obtained for further evaluation and treatment. The patient is unable to give any information; it is all obtained from chart and staff. PAST MEDICAL HISTORY: 1. Obesity with BMI of 31. 2. Advanced Alzheimer dementia. 3. Encephalopathy. 4. Ventilator-dependent respiratory failure. 5. Dysphagia. 6. Chronic kidney disease stage IV. 7. Anemia. 8. Coronary artery disease. 9. Peripheral vascular disease. 10. Hypertension. 11. Diabetes. 12. Decubitus ulcerations. 13. Abdominal wall cellulitis and contact dermatitis. 14. Large gastrocutaneous fistula. 15. Feeding tube malfunction. 16. Systolic and diastolic congestive heart failure. 17. Electrolyte abnormalities. 18. Anemia of chronic disease. 19. Leukocytosis. 20. Lactic acidosis. 21. Hypocalcemia. 22. Hypoalbuminemia. 23. Positive urinalysis. 24. Metallic densities within the gastric fundus. 25. Hiatal hernia. 26. Bilateral pleural effusions. PAST SURGICAL HISTORY: 1. PEG. 2. Trach. MEDICATIONS: As per DEC. ALLERGIES: NONE. SOCIAL HISTORY: No current alcohol, drugs or tobacco. FAMILY HISTORY: Noncontributory. REVIEW OF SYSTEMS: No current fevers, chills, cough, seizure, or vomiting. There is bloating. The patient is noncommunicative. Bowel function. No blood per mouth or rectum. PHYSICAL EXAMINATION: VITAL SIGNS: Temperature 98.____, pulse is 80s to 90s, blood pressure 90s to 110s over 40s. GENERAL: Obese, noncommunicative, ventilated. HEENT: Pupils are sluggish. No scleral icterus. Mucous membranes are moist. NECK: Trach in place, no crepitus, no edema. PULMONARY: Normal respiratory effort. No wheezing. CARDIAC: S1, S2 present. ABDOMEN: Soft, obese. Edema with blanching erythema, especially around the gastrocutaneous fistula , which is large denuded tissue. EXTREMITIES: With edema. VASCULAR: Capillary refill is 3 seconds. NEUROLOGIC: Does not follow commands. SKIN: Puffy rashes. No jaundice. Abdominal wound as above. Other wounds as per nursing notes. LABORATORY AND RADIOGRAPHIC: As per chart and HPI. ASSESSMENT AND PLAN: Kailey French is an 86-year-old female with multiple significant comorbiditie s 1. Large gastrocutaneous fistula with continued leakage. Continue local care. The patient will be nefit from debridement and eventual closure of this to allow healing prior to replacement of the fee ding tube at a later time. Continue antibiotics. Will await medical optimization prior to consider ing surgical closure of the site. 2. Abdominal wall cellulitis secondary to above. Continue antibiotics and local care. 3. Methicillin-resistant Staphylococcus aureus bacteremia. Continue antibiotics ____ line holiday and supportive care. 4. Deformity, fluid around the pelvic bone on CT scan. We will need to discuss with radiology for possible osteo. 5. Anemia without evidence of acute blood loss. Continue close monitoring and transfuse as needed. 6. Obesity with BMI of 31. Continue nutritional optimization when possible. 7. Sepsis secondary to above. Continue as above. 8. Ventilatory dependent respiratory failure. Continue pulmonary toilet and ventilator support. 9. Acute on chronic renal failure. Continue judicious fluid management and try to avoid nephrotoxi c agents. 10. Coronary artery disease. Continue cardiac optimization. 11. Hypertension. Continue nutrition and medication control. 12. Advanced Parkinson's dementia with encephalopathy. Continue ____. 13. Functional quadriplegia. Continue medical optimization, also ____ eventual nutritional optimiz ation. 14. Congestive heart failure. Continue judicious fluid management and cardiac optimization. Thank you very much for consulting me in this patient's care. Dictated By: JOCELYN GALINDO/RAYSA Conf#: [id number] DID#: [id number]
--- NOTE | 2017-03-15 07:53 | PN ---
DATE: 03/15/2017 SUBJECTIVE: The patient remains critically ill, remains on pressor support, although being weaned d own. The patient had a run of bigeminy, nonsustained ventricular tachycardia. The patient continue s to have leaking from her ostomy site in her abdomen. She was seen by general surgeon, Dr. Blackburn . No intervention was not done at the bedside yesterday. The patient's urinary output has improved . No other acute events noted. No hemoptysis, hematemesis or hematochezia. OBJECTIVE: VITAL SIGNS: Blood pressure is 111/45, respirations 15, pulse 82, temperature 98.6. I's AND O'S: The patient had 3 liters in, with 695 mL out. HEENT: Head is normocephalic. Pupils are reactive to light. NECK: Supple. HEART: Regular rate. LUNGS: Show diminished breath sounds at the base. ABDOMEN: Soft, nontender to palpation. No rebound or guarding. Noted erythema around the ostomy s ite. There is a dressing over the ostomy site that is clean, dry and intact. EXTREMITIES: Negative for clubbing or cyanosis. Positive for edema, +2 upper and lower extremities . DERMATOLOGIC: No new rashes. MUSCULOSKELETAL: Have no joint effusions. NEUROLOGIC: Limited exam. MEDICATIONS: The patient's medications were reviewed. LABORATORY DATA: Shows sodium 155, potassium 2.2, chloride 117, BUN is 69, creatinine 2.97. Lactic acid is 3.8. White count 12.7, hemoglobin 6.8, hematocrit 24.6, platelet count is 319. Cultures h ave been reviewed. Repeat cultures have been negative to date. IMAGING: Chest x-ray was reviewed, continues to show bilateral pleural effusions versus infiltrates . ASSESSMENT AND PLAN: 1. Septic shock. Etiology is multifactorial secondary to healthcare-associated pneumonia, UTI, dotty lulitis. The patient remains on broad-spectrum antibiotics, IV fluids and pressor support. The pat ient has been weaned down on pressor support slowly. At this point continue the current treatment p areli and follow up with infectious disease for further recommendations. 2. Ventilator-dependent respiratory failure. Vent settings have been reviewed. ABG has been revi ewed. Continue to monitor. 3. Oliguric acute kidney injury on top of chronic kidney disease stage 4. Etiology is secondary to acute tubular necrosis due to septic acute kidney injury, ischemic hypoperfusion and shock. The ceasar tavares's urinary output has marginally improved. At this point will give the patient a diuretic chal lenge to see if there is renal responsiveness. Continue the current treatment plan, continue presso r support, maintain a MAP above 65, continue antibiotics, continue fluids. There is no immediate sd ed for renal replacement therapy. 4. Hypernatremia. The patient has a free water deficit of approximately 4 liters. Will change IV fluids to half NS at 100 mL an hour. Continue to monitor serial sodium levels. 5. Hypokalemia. Replete potassium chloride at 40 mEq IV x1. 6. Arrhythmia, with nonsustained V-tach. Etiology may be secondary to electrolytes. Will replete potassium and monitor magnesium levels. 7. Abdominal wall cellulitis from infected G-tube. The patient's G-tube was removed. Appreciate G I and general surgery's evaluation. Follow up recommendations. Continue the current treatment plan . Continue antibiotic therapy. 8. Dysphagia. The patient is status post NG tube. At this point, will keep the patient n.p.o., as contents are coming out of the abdominal ostomy site. 9. Mixed acid base disorder. The patient has a respiratory alkalosis, anion gap metabolic acidosis and metabolic alkalosis. At this point will continue to monitor. No need for intervention. 10. Acute encephalopathy and advanced Parkinson's dementia. Etiology is toxic metabolic. Continue to monitor. 11. Mineral bone disorder. Continue to monitor calcium and phos levels. 12. Anemia. The patient had a drop in hemoglobin and hematocrit. There is no gross evidence of GI bleeding. Will transfuse 2 units of PRBC and continue to give Epogen. 13. History of coronary artery disease. Continue medical management. 14. Diabetes. Continue Accu-Cheks and q.6h insulin sliding scale. 16. Decubitus wound. Continue wound care. 17. Gastrointestinal and deep venous thrombosis prophylaxis. Continue proton pump inhibitor and se quential leg squeezers, holding heparin. Please note, I spent over 35 minutes of critical care time with this patient. Discussed the case wi th the hospital staff and consultants. Dictated By: OSMAR HERNANDEZ/RAYSA Conf#: [id number] DID#: [id number]
[2017-03-15] MEDS: DEXTROSE 5%-0.45% NACL 1,000 ML IV SCH ×2 (07:55→17:44)
[2017-03-15] MEDS: CITRIC ACID/SODIUM CITRATE 15 ML CUP GTB SCH (08:16)
[2017-03-15] MEDS: MULTIVIT/CA CARB/B CMPLX/FA TAB GTB SCH (08:17)
[2017-03-15] MEDS: MEMANTINE 5 MG TAB GTB SCH (08:17)
[2017-03-15] MEDS: FERROUS SULFATE 60 MG/ML 5ML CUP GTB SCH (08:17)
[2017-03-15] MEDS: CLOPIDOGREL 75 MG TAB GTB SCH (08:17)
[2017-03-15] MEDS: FOLIC ACID 1 MG TAB GTB SCH (08:17)
[2017-03-15] MEDS: ASCORBIC ACID 500 MG TAB GTB SCH (08:17)
[2017-03-15] MEDS: DOCUSATE SODIUM 100 MG CAP PO SCH (08:17)
[2017-03-15] MEDS: PRAMIPEXOLE 0.25 MG TAB GTB SCH (08:17)
[2017-03-15] MEDS: CHLORHEXIDINE GLUCONATE 15 ML UD CUP MT SCH ×2 (08:17→20:41)
[2017-03-15] MEDS: CARBIDOPA/LEVODOPA (25/100) TAB GTB SCH (08:17)
[2017-03-15] MEDS: COLLAGENASE 30 GM TUBE TOP SCH (08:18)
[2017-03-15] MEDS: NYSTATIN 30 GM POWDER BTL TOP SCH ×2 (08:18→20:42)
[2017-03-15] MEDS ORDERED: DOCUSATE SODIUM 10 MG/ML (10ML CUP) GTB SCH (09:00)
[2017-03-15] MEDS: MEROPENEM 500 MG/100 ML (PMX) 100 ML IVPB SCH ×2 (09:30→20:15)
--- NOTE | 2017-03-15 10:52 | CONS ---
Date/Time of Note Date/Time of Note DATE: 03/15/17 TIME: 10:50 Consult Date/Type/Reason Admit Date/Time March 11, 2017 at 22:57 Type of Consultation: Pulmonary ICU Subjective Patient's condition remains unchanged, continues vasopressor support Objective Vital Signs Date Time Temp Pulse Resp B/P Pulse Ox O2 Delivery O2 Flow Rate FiO2 03/15/17 10:00 71 13 90/44 100 Mechanical Ventilator 03/15/17 09:00 30 03/15/17 08:00 97.3 Intake and Output 03/14/17 03/14/17 03/15/17 15:00 23:00 07:00 Intake Total 675.59 ml 1898.09 ml 889.31 ml Output Total 150 ml 455 ml 100 ml Balance 525.59 ml 1443.09 ml 789.31 ml Exam PHYSICAL EXAMINATION: GENERAL: Chronically ill appearing lady, appears comfortable at rest, no acute distress, currently afebrile. VITAL SIGNS: As above NECK: Trach site clean and intact. CARDIAC: S1, S2, no added sounds or murmurs. CHEST: Diminished air entry bilaterally. ABDOMEN: Soft, nontender. No guarding or rebound. EXTREMITIES: No cyanosis, clubbing, 2+ edema. NEUROLOGIC: Generalized weakness. Results/Medications Result Diagram: 03/15/17 0525 03/15/17 0230 Results 24 hrs Laboratory Tests Test 03/14/17 12:10 03/14/17 12:28 03/14/17 17:55 03/14/17 17:59 Lactic Acid Level 4.9 *H 3.7 H Bedside Glucose 91 143 White Blood Count 14.1 H Red Blood Count 2.30 L Hemoglobin 7.0 L Hematocrit 24.4 #L Mean Corpuscular Volume 106.1 H Mean Corpuscular Hemoglobin 30.4 Mean Corpuscular Hemoglobin Concent 28.7 L Red Cell Distribution Width 20.6 H Platelet Count 363 Mean Platelet Volume 9.3 Neutrophils % 90.5 H Lymphocytes % 3.2 L Monocytes % 1.8 Eosinophils % 3.3 Basophils % 0.1 Nucleated Red Blood Cells % 0.0 Neutrophils # 12.7 H Lymphocytes # 0.5 L Monocytes # 0.3 Eosinophils # 0.5 Basophils # 0.0 Nucleated Red Blood Cells # 0.0 Test 03/14/17 18:00 03/15/17 00:14 03/15/17 00:50 03/15/17 02:30 Bedside Glucose 101 125 Lactic Acid Level 3.8 H Sodium Level 155 H Potassium Level 3.2 L Chloride Level 117 H Carbon Dioxide Level 24 Anion Gap 17 H Blood Urea Nitrogen 69 H Creatinine 2.97 H Glucose Level 121 Calcium Level 7.9 L Phosphorus Level 4.7 Magnesium Level 2.1 Test 03/15/17 05:00 03/15/17 05:25 03/15/17 05:40 Blood Gas Specimen Source Blood arterial Arterial Blood Date Drawn 03/15/2017 6:00:19 AM Arterial Blood pH (Temp corrected) 7.423 Arterial Blood pCO2 (Temp correct) 34.5 L Arterial Blood pO2 (Temp corrected) 112.9 H Arterial Blood HCO3 22.0 Arterial Blood Base Excess -2.1 Arterial Blood Oxygen Saturation 97.6 Faustino Test ACCEPTAB Arterial Blood Gas Puncture Site Right Radial Arterial Blood Carboxyhemoglobin 0.3 Arterial Blood Methemoglobin 0.5 Blood Gas A-a O2 Differential 60.5 H Oxyhemoglobin Percent 96.8 Total Hemoglobin 7.2 L Blood Gas Temperature 37.0 Blood Gas Respiration Rate 10.0 Blood Gas Actual Respiration Rate 14 Blood Gas Modality VENT - AC FiO2 30.0 Blood Gas Tidal Volume 420.0 Blood Gas Mean Airway Pressure 10 Blood Gas Low PEEP Setting 5.0 Blood Gas Inspiratory Pressure 24.0 Blood Gas Notified Whom DIANA LEDESMA Blood Gas Notified Time 03/15/2017 6:09:48 AM White Blood Count 12.7 H Red Blood Count 2.28 L Hemoglobin 6.8 *L Hematocrit 24.6 L Mean Corpuscular Volume 107.9 H Mean Corpuscular Hemoglobin 29.8 Mean Corpuscular Hemoglobin Concent 27.6 L Red Cell Distribution Width 20.9 H Platelet Count 319 Mean Platelet Volume 9.8 Neutrophils % 87.8 H Lymphocytes % 4.7 L Monocytes % 2.0 Eosinophils % 4.7 Basophils % 0.1 Nucleated Red Blood Cells % 0.0 Neutrophils # 11.1 H Lymphocytes # 0.6 L Monocytes # 0.3 Eosinophils # 0.6 H Basophils # 0.0 Nucleated Red Blood Cells # 0.0 Lactic Acid Level 3.8 H Bedside Glucose 132 Medications Current Medications Bisacodyl (Dulcolax Supp) 10 mg Q48H MT ; Start 03/11/17 at 23:30 Chlorhexidine Gluconate (Peridex) 15 ml BID MT Last administered on 03/15/17 08:17; Admin Dose 15 ML; Start 03/12/17 at 09:00 Epoetin Vasyl (Epogen (Non Esrd/Non Oncology)) 10,000 units MoWeFr@17 SC Last administered on 03/13/17 16:23; Admin Dose 10,000 UNITS; Start 03/13/17 at 17: 00 Heparin Sodium (Porcine) (Heparin (5000 Units/0.5 ml)) 5,000 unit BID SC Last administered on 03/13/17 21:06; Admin Dose 5,000 UNIT; Start 03/12/17 at 09:00 ; Status Future Hold Metoprolol Tartrate (Lopressor) 25 mg Q12H GTB Last administered on 03/12/17 12:05; Admin Dose 25 MG; Start 03/11/17 at 23:30; Status Future Hold Sodium Biphosphate/ Sodium Phosphate 118 ml 118 ml Q72H PRN [place] CONSTIPATION; Start 03/11/17 at 23:30 Vancomycin HCl 250 ml @ 125 mls/hr Q48H IVPB Last administered on 03/14/17 14 :03; Admin Dose 125 MLS/HR; Start 03/14/17 at 14:00 Norepinephrine 16 mg/Dextrose 500 ml @ 0 mls/hr TITRATE IV Last administered on 03/13/17 09:33; Admin Dose 18.75 MLS/HR; Start 03/13/17 at 10:00 Phenylephrine HCl 250 ml @ 75 mls/hr TITRATE PRN IV BLOOD PRESSURE SUPPORT; Start 03/12/17 at 21:30 Meropenem (Merrem 500 Mg/ 100 ml (Pmx)) 100 ml @ 200 mls/hr Q12 IVPB Last administered on 03/15/17 09:30; Admin Dose 200 MLS/HR; Start 03/13/17 at 21:00 Nystatin (Nystatin Powder) 1 applic BID TOP Last administered on 03/15/17 08: 18; Admin Dose 1 APPLIC; Start 03/13/17 at 15:00 Collagenase (Santyl) 1 applic DAILY TOP Last administered on 03/15/17 08:18; Admin Dose 1 APPLIC; Start 03/13/17 at 15:00 Insulin Aspart (Novolog Insulin Pen) NOVOLOG *MILD* ALGORI... Q6 SC ; Start at 12:00 Miscellaneous Information 1 ea NOTE XX ; Start 03/14/17 at 07:30 Glucose (Glutose) 15 gm Q15M PRN PO DECREASED GLUCOSE; Start 03/14/17 at 07:30 Glucose (Glutose) 22.5 gm Q15M PRN PO DECREASED GLUCOSE; Start 03/14/17 at 07: 30 Dextrose (D50w Syringe) 25 ml Q15M PRN IV DECREASED GLUCOSE; Start 03/14/17 at 07:30 Dextrose (D50w Syringe) 50 ml Q15M PRN IV DECREASED GLUCOSE; Start 03/14/17 at 07:30 Glucagon (Glucagen) 1 mg Q15M PRN IM DECREASED GLUCOSE; Start 03/14/17 at 07:30 Glucose 15 gm 15 gm Q15M PRN BUCCAL DECREASED GLUCOSE; Start 03/14/17 at 07:30 Potassium Chloride 250 ml @ 62.5 mls/hr ONCE ONCE IVPB Last administered on 07:55; Admin Dose 62.5 MLS/HR; Start 03/15/17 at 07:30; Stop 03/15/17 at 11:29 Dextrose/Sodium Chloride (D5-1/2ns) 1,000 ml @ 100 mls/hr Q10H IV Last administered on 03/15/17 07:55; Admin Dose 100 MLS/HR; Start 03/15/17 at 07:30 Assessment/Plan Chief Complaint/Hosp Course IMPRESSION AND PLAN: 1. Status post septic shock likely secondary to urinary tract infection cellulitis. 2. Vent dependent respiratory failure. Will require continued mechanical ventilation. 3. G-tube malfunction with abdominal wall cellulitis. Will require antibiotics and replacement of G-tube. 4. Urinary tract infection. Continue antibiotics per primary team. 5. Encephalopathy at baseline. 6. Dysphagia. Plan as above. 7. Continue DVT and GI prophylaxis. 8. Hypernatremia insufficiency continue renal recommendations IV fluids free water. 9. Anemia setting of hypotension. Will require transfusion packed red blood cells Disposition continue ICU care Problems: JRAED CLAIRE MD, [facility] March 15, 2017 10:52
[2017-03-15] MEDS ORDERED: LIDOCAINE 1% (MPF) 5 ML VIAL SC ONE (11:30)
--- NOTE | 2017-03-15 13:58 | PN ---
DATE: 03/15/2017 INFECTIOUS DISEASE PROGRESS NOTE SUBJECTIVE: No acute changes. The patient remains afebrile, still on a Levophed drip. Temperature 97.3, pulse 69, respirations 12, blood pressure 90/44, saturations 100 on the vent. WBC 12.7, H and H 6.8 and 24.6, platelets 319, neutrophils 87.8, BUN 69, creatinine 2.97. INDWELLINGS: Trach, Collazo, right femoral triple-lumen catheter. MICROBIOLOGY: Blood cultures on admission grew MRSA. Repeat blood culture growing enterococcus spe cies. Urine culture growing Providencia, Proteus. Stool for Clostridium difficile came back negati ve. ANTIMICROBIALS: The patient remains on: 1. IV vancomycin. 2. Meropenem. PHYSICAL EXAMINATION: GENERAL: Chronically ill-appearing, elderly woman, who is obtunded, in no distress. HEENT: Head atraumatic, normocephalic. Sclerae anicteric. Buccal mucosa dry. NECK: Supple, tracheostomy present. CHEST: Chest rise is symmetrical. Breath sounds diminished to the bases. HEART: S1, S2. ABDOMEN: Soft. Bowel tones present. EXTREMITIES: Without cyanosis. Bilateral trace edema. SKIN: With multiple excoriations, pressure sores and erythema around the G-tube site. ASSESSMENT: 1. Severe sepsis with shock. 2. Polymicrobial bacteremia. 3. G-tube site cellulitis, with large gastrocutaneous fistula, with a G-tube malfunction. Status p ost discontinued. 4. Polymicrobial urinary tract infection. 5. Healthcare-associated pneumonia. 6. Acute on chronic anemia. 7. Diabetes. 8. Acute kidney injury. PLAN: The patient remains on pressors. Repeat blood cultures growing enterococcus species. We are going to change vancomycin to Zyvox for possible VRE. Continue meropenem. Continue local G-tube s ite care and local wound care. Follow recommendations of consultants. Dictated By: DOROTHY CORONADO SHARED SERVICES MANAGER for GABINO BOSTON/RAYSA Conf#: [id number] DID#: [id number]
[2017-03-15 14:03] LABS: CALCIUM 8.3 mg/dl (8.4-10.2); CREATININE 2.83 mg/dl (0.44-1.00); POTASSIUM 3.8 mmol/L (3.5-5.1)
--- NOTE | 2017-03-15 14:15 | PN ---
Date/Time of Note Date/Time of Note DATE: 03/15/17 TIME: 14:10 Assessment/Plan Lines/Catheters IV Catheter Type (from [facility]): Central Line Collazo in Place (from [facility]): Yes Assessment/Plan Chief Complaint/Hosp Course 1. Large gastrocutaneous fistula with continued leakage. -local care -antibiotics. -supportive -eventual debridement and closure of this to allow healing prior to replacement of the feeding tube at a later time > will await medical optimization prior to considering surgical closure of the site 2. Abdominal wall cellulitis secondary to above. Continue antibiotics and local care. 3. Methicillin-resistant Staphylococcus aureus bacteremia. Continue antibiotics, line holiday and supportive care. 4. Pelvic deformity with fluid around the pelvic bone on CT scan. We will need to discuss with radiology for possible osteo. 5. Anemia without evidence of acute blood loss. Continue close monitoring and transfuse as needed. 6. Obesity with BMI of 31. Continue nutritional optimization when possible. 7. Sepsis secondary to above. Continue as above. 8. Ventilatory dependent respiratory failure. Continue pulmonary toilet and ventilator support. 9. Acute on chronic renal failure. Continue judicious fluid management and try to avoid nephrotoxic agents. 10. Coronary artery disease. Continue cardiac optimization. 11. Hypertension. Continue nutrition and medication control. 12. Advanced Parkinson's dementia with encephalopathy. Continue medical optimization. 13. Functional quadriplegia. Continue medical optimization, off loading, & nutritional optimization 14. Congestive heart failure. Continue judicious fluid management and cardiac optimization. Thank you Problems: Subjective 24 Hr Interval Summary Pressor support. No f/c. No cough. No sz. Erythema persists. No vomiting. +Stool in rectal tube. +Drop in Hg. Exam/Review of Systems Vital Signs Vitals Vital Signs Date Time Temp Pulse Resp B/P Pulse Ox O2 Delivery O2 Flow Rate FiO2 03/15/17 11:10 69 14 100 30 03/15/17 10:00 90/44 Mechanical Ventilator 03/15/17 08:00 97.3 Intake and Output 03/14/17 03/14/17 03/15/17 15:00 23:00 07:00 Intake Total 675.59 ml 1898.09 ml 889.31 ml Output Total 150 ml 455 ml 100 ml Balance 525.59 ml 1443.09 ml 789.31 ml Exam Free Text/Dictation GENERAL: Obese, noncommunicative, ventilated. HEENT: Pupils are sluggish. No scleral icterus. Mucous membranes are moist. NECK: Trach in place, no crepitus, no edema. PULMONARY: Normal respiratory effort. No wheezing. CARDIAC: S1, S2 present. ABDOMEN: Soft, obese. Edema with blanching erythema, especially around the gastrocutaneous fistula, which is large denuded tissue. EXTREMITIES: With edema. VASCULAR: Capillary refill is 3 seconds. NEUROLOGIC: Does not follow commands. SKIN: Puffy rashes. No jaundice. Abdominal wound as above. Other wounds as per nursing notes. Results Result Diagram: 03/15/17 0525 03/15/17 1335 JOCELYN FINE MD March 15, 2017 14:15
--- NOTE | 2017-03-15 16:03 | CONS ---
Date/Time of Note Date/Time of Note DATE: 03/15/17 TIME: 16:02 Assessment/Plan Assessment/Plan Additional Assessment/Plan Additional Assessment/Plan IMPRESSION: 1. Malfunctioning gastrostomy tube. 2. Cellulitis as well as contact dermatitis around the G-tube site. 3. Vent-dependent respiratory failure. 4. Chronic kidney disease. 5. Hypernatremia. 6. Parkinson disease. 7. Hypotension, probably related to sepsis. 8 renal failure, urine output improved 9. 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 Septic shock patient has MRSA bacteremia and UTI Plan G-tube removed, along with the gastrocutaneous fistula to shrink in size Continue antibiotic and pressor support Once the condition is more stable then we will make an attempt to close the G- tube site and put a new G-tube Continue vent support Consultation Date/Type/Reason Admit Date/Time March 11, 2017 at 22:57 Type of Consultation: Pulmonary ICU 24 HR Interval Summary Subjective hx not possible: pt critical Exam/Review of Systems Vital Signs Vitals Vital Signs Date Time Temp Pulse Resp B/P Pulse Ox O2 Delivery O2 Flow Rate FiO2 03/15/17 11:10 69 14 100 30 03/15/17 10:00 90/44 Mechanical Ventilator 03/15/17 08:00 97.3 Intake and Output 03/14/17 03/14/17 03/15/17 15:00 23:00 07:00 Intake Total 675.59 ml 1898.09 ml 889.31 ml Output Total 150 ml 455 ml 100 ml Balance 525.59 ml 1443.09 ml 789.31 ml Exam Constitutional: alert, oriented, well developed Psych: nl mood/affect, no complaints Head: atraumatic, normocephalic Eyes: EOMI, PERRL, nl conjunctiva, nl lids, nl sclera ENMT: nl external ears & nose, nl lips & teeth, nl nasal mucosa & septum Neck: non-tender, supple Respiratory: clear to auscultation, normal air movement Cardiovascular: nl pulses, regular rate and rhythm Gastrointestinal: nl liver, spleen, non-tender, soft Musculoskeletal: nl extremities to inspection, nl gait and stance Extremities: normal pulses Neurological: SWITCHER II-XII intact, nl mental status, nl speech, nl strength Skin: nl turgor, No rash or lesions Lymph: nl lymph nodes Results Result Diagram: 03/15/17 0525 03/15/17 1335 Results 24 hrs Laboratory Tests Test 03/14/17 17:55 03/14/17 17:59 03/14/17 18:00 03/15/17 00:14 White Blood Count 14.1 H Red Blood Count 2.30 L Hemoglobin 7.0 L Hematocrit 24.4 #L Mean Corpuscular Volume 106.1 H Mean Corpuscular Hemoglobin 30.4 Mean Corpuscular Hemoglobin Concent 28.7 L Red Cell Distribution Width 20.6 H Platelet Count 363 Mean Platelet Volume 9.3 Neutrophils % 90.5 H Lymphocytes % 3.2 L Monocytes % 1.8 Eosinophils % 3.3 Basophils % 0.1 Nucleated Red Blood Cells % 0.0 Neutrophils # 12.7 H Lymphocytes # 0.5 L Monocytes # 0.3 Eosinophils # 0.5 Basophils # 0.0 Nucleated Red Blood Cells # 0.0 Lactic Acid Level 3.7 H Bedside Glucose 143 101 125 Test 03/15/17 00:50 03/15/17 02:30 03/15/17 05:00 03/15/17 05:25 Lactic Acid Level 3.8 H 3.8 H Sodium Level 155 H Potassium Level 3.2 L Chloride Level 117 H Carbon Dioxide Level 24 Anion Gap 17 H Blood Urea Nitrogen 69 H Creatinine 2.97 H Glucose Level 121 Calcium Level 7.9 L Phosphorus Level 4.7 Magnesium Level 2.1 Blood Gas Specimen Source Blood arterial Arterial Blood Date Drawn 03/15/2017 6:00:19 AM Arterial Blood pH (Temp corrected) 7.423 Arterial Blood pCO2 (Temp correct) 34.5 L Arterial Blood pO2 (Temp corrected) 112.9 H Arterial Blood HCO3 22.0 Arterial Blood Base Excess -2.1 Arterial Blood Oxygen Saturation 97.6 Faustino Test ACCEPTAB Arterial Blood Gas Puncture Site Right Radial Arterial Blood Carboxyhemoglobin 0.3 Arterial Blood Methemoglobin 0.5 Blood Gas A-a O2 Differential 60.5 H Oxyhemoglobin Percent 96.8 Total Hemoglobin 7.2 L Blood Gas Temperature 37.0 Blood Gas Respiration Rate 10.0 Blood Gas Actual Respiration Rate 14 Blood Gas Modality VENT - AC FiO2 30.0 Blood Gas Tidal Volume 420.0 Blood Gas Mean Airway Pressure 10 Blood Gas Low PEEP Setting 5.0 Blood Gas Inspiratory Pressure 24.0 Blood Gas Notified Balwinder ORTIZ [facility] Blood Gas Notified Time 03/15/2017 6:09:48 AM White Blood Count 12.7 H Red Blood Count 2.28 L Hemoglobin 6.8 *L Hematocrit 24.6 L Mean Corpuscular Volume 107.9 H Mean Corpuscular Hemoglobin 29.8 Mean Corpuscular Hemoglobin Concent 27.6 L Red Cell Distribution Width 20.9 H Platelet Count 319 Mean Platelet Volume 9.8 Neutrophils % 87.8 H Lymphocytes % 4.7 L Monocytes % 2.0 Eosinophils % 4.7 Basophils % 0.1 Nucleated Red Blood Cells % 0.0 Neutrophils # 11.1 H Lymphocytes # 0.6 L Monocytes # 0.3 Eosinophils # 0.6 H Basophils # 0.0 Nucleated Red Blood Cells # 0.0 Test 03/15/17 05:40 03/15/17 13:24 03/15/17 13:35 Bedside Glucose 132 129 Sodium Level 152 H Potassium Level 3.8 Chloride Level 120 H Carbon Dioxide Level 25 Anion Gap 11 Blood Urea Nitrogen 67 H Creatinine 2.83 H Glucose Level 111 Lactic Acid Level 3.9 H Calcium Level 8.3 L Medications Medications Current Medications Bisacodyl (Dulcolax Supp) 10 mg Q48H [place] ; Start 03/11/17 at 23:30 Chlorhexidine Gluconate (Peridex) 15 ml BID MT Last administered on 03/15/17 08:17; Admin Dose 15 ML; Start 03/12/17 at 09:00 Epoetin Vasyl (Epogen (Non Esrd/Non Oncology)) 10,000 units MoWeFr@17 SC Last administered on 03/13/17 16:23; Admin Dose 10,000 UNITS; Start 03/13/17 at 17: 00 Heparin Sodium (Porcine) (Heparin (5000 Units/0.5 ml)) 5,000 unit BID SC Last administered on 03/13/17 21:06; Admin Dose 5,000 UNIT; Start 03/12/17 at 09:00 ; Status Future Hold Metoprolol Tartrate (Lopressor) 25 mg Q12H GTB Last administered on 03/12/17 12:05; Admin Dose 25 MG; Start 03/11/17 at 23:30; Status Future Hold Sodium Biphosphate/ Sodium Phosphate 118 ml 118 ml Q72H PRN [place] CONSTIPATION; Start 03/11/17 at 23:30 Norepinephrine 16 mg/Dextrose 500 ml @ 0 mls/hr TITRATE IV Last administered on 03/13/17 09:33; Admin Dose 18.75 MLS/HR; Start 03/13/17 at 10:00 Phenylephrine HCl 250 ml @ 75 mls/hr TITRATE PRN IV BLOOD PRESSURE SUPPORT; Start 03/12/17 at 21:30 Meropenem (Merrem 500 Mg/ 100 ml (Pmx)) 100 ml @ 200 mls/hr Q12 IVPB Last administered on 03/15/17 09:30; Admin Dose 200 MLS/HR; Start 03/13/17 at 21:00 Nystatin (Nystatin Powder) 1 applic BID TOP Last administered on 03/15/17 08: 18; Admin Dose 1 APPLIC; Start 03/13/17 at 15:00 Collagenase (Santyl) 1 applic DAILY TOP Last administered on 03/15/17 08:18; Admin Dose 1 APPLIC; Start 03/13/17 at 15:00 Insulin Aspart (Novolog Insulin Pen) NOVOLOG *MILD* ALGORI... Q6 SC ; Start at 12:00 Miscellaneous Information 1 ea NOTE XX ; Start 03/14/17 at 07:30 Glucose (Glutose) 15 gm Q15M PRN PO DECREASED GLUCOSE; Start 03/14/17 at 07:30 Glucose (Glutose) 22.5 gm Q15M PRN PO DECREASED GLUCOSE; Start 03/14/17 at 07: 30 Dextrose (D50w Syringe) 25 ml Q15M PRN IV DECREASED GLUCOSE; Start 03/14/17 at 07:30 Dextrose (D50w Syringe) 50 ml Q15M PRN IV DECREASED GLUCOSE; Start 03/14/17 at 07:30 Glucagon (Glucagen) 1 mg Q15M PRN IM DECREASED GLUCOSE; Start 03/14/17 at 07:30 Glucose 15 gm 15 gm Q15M PRN BUCCAL DECREASED GLUCOSE; Start 03/14/17 at 07:30 Dextrose/Sodium Chloride (D5-1/2ns) 1,000 ml @ 100 mls/hr Q10H IV Last administered on 03/15/17 07:55; Admin Dose 100 MLS/HR; Start 03/15/17 at 07:30 Miscellaneous Information 1 ONCE ONCE XX ; Start 03/16/17 at 13:00; Stop at 13:01 Linezolid (Zyvox 600mg/D5W (Pmx)) 300 ml @ 300 mls/hr Q12 IVPB ; Start at 21:00 SYLWIA SY MD March 15, 2017 16:03
[2017-03-15] MEDS: EPOETIN 10000 UNITS/ML (NON ESRD/NON ONCOLOGY) SC SCH (17:48)
--- NOTE | 2017-03-15 17:57 | PN ---
DATE: 03/15/2017 CARDIOLOGY FOLLOWUP SUBJECTIVE: Discussed with the staff. Rhythm strip was reviewed. The patient remains in sinus rhy thm. Heart rate has remained stable. The patient remains nonverbal, status post trach, on the vent . Still on Levophed drip. MEDICATIONS: Reviewed as per medication reconciliation, personally reviewed. PHYSICAL EXAMINATION: VITAL SIGNS: Temperature 97.3, heart rate of 67, blood pressure 90/44, respiratory rate 15. HEENT: Normocephalic, atraumatic. NECK: Status post tracheostomy, on the vent. CARDIOVASCULAR: Regular rate and rhythm, systolic murmur. PULMONARY: Mild rhonchi. GASTROINTESTINAL: Soft with erythema. EXTREMITIES: Positive lower extremity edema. NEUROLOGIC: Does not respond to verbal stimuli. PSYCHIATRIC: Appears to be calm. LABORATORY DATA: WBC of 12.7, hemoglobin 6.8, platelets of 319. Sodium 152, potassium 3.8, BUN of 67, creatinine 2.83, glucose 111. ASSESSMENT AND PLAN: 1. Septic shock. 2. Atrial fibrillation, paroxysmal. 3. Episode of marked bradycardia, currently stable. 4. Hypoxemic, hypercapnic respiratory failure, status post tracheostomy, ventilator-dependent. 5. Severe anemia. 6. Lactic acidosis. 7. Staphylococcus aureus bacteremia. 8. Status post cardiopulmonary arrest secondary to above. 9. Severe hypernatremia. 10. Questionable history of coronary artery disease. 11. Peripheral vascular disease. RECOMMENDATIONS: We will continue with Levophed for now. Transfusion p.r.n. will be given. Antibi otic will be managed as per ID recommendation. Blood culture enterococcus so far from 017. However, on 03/11/2017 it showed methicillin-resistant Staph aureus. Vent support will be con tinued. ICU care will be continued. Electrolytes will be corrected as needed. More than 38 minutes of critical care time was spent managing this patient excluding any procedures. Dictated By: MILAGROS LEE/RAYSA Conf#: [id number] DID#: [id number] CC: OSMAR MONTAGUE DO;*EndCC*
[2017-03-15] MEDS: LINEZOLID 600 MG/D5W (PMX) 300 ML IVPB SCH (20:41)
[2017-03-15] MEDS: BISACODYL 10 MG SUPP PR SCH (20:42)
[2017-03-16] VITALS (80 sets, daily range): BP systolic 83–136; BP diastolic 37–64; PULSE 61–86; RESP 10–20
[2017-03-16] MEDS: FLUCONAZOLE 100 MG/NS (PMX) 50 ML IVPB SCH (01:08)
[2017-03-16] MEDS: DEXTROSE 5%-0.45% NACL 1,000 ML IV SCH ×3 (03:31→23:26)
[2017-03-16 04:44] LABS: ADD SCAN DIFF NO
[2017-03-16 04:48] LABS: ABNORMAL IP MESSAGE 1; BASOPHILS % 0.2 % (0.0-2.0); EOSINOPHILS # 0.3 10^3/ul (0.0-0.5); EOSINOPHILS % 2.7 % (0.0-7.0); HEMATOCRIT 27.9 % (37.0-47.0); HEMOGLOBIN 8.5 g/dl (12.0-16.0); LYMPHOCYTES # 0.3 10^3/ul (0.8-2.9); LYMPHOCYTES % 2.5 % (15.0-51.0); MEAN CORPUSCULAR HEMOGLOBIN 30.2 pg (29.0-33.0); MEAN CORPUSCULAR HGB CONC 30.5 g/dl (32.0-37.0); MEAN CORPUSCULAR VOLUME 99.3 fl (82.0-101.0); MEAN PLATELET VOLUME 9.7 fl (7.4-10.4); MONOCYTE # 0.2 10^3/ul (0.3-0.9); MONOCYTES % 1.5 % (0.0-11.0); NEUTROPHIL # 10.4 10^3/ul (1.6-7.5); NEUTROPHILS % 92.6 % (39.0-77.0); PLATELET COUNT 235 10^3/UL (140-415); RED BLOOD COUNT 2.81 10^6/ul (4.20-5.40); RED CELL DISTRIBUTION WIDTH 21.9 % (11.5-14.5); WHITE BLOOD COUNT 11.2 10^3/ul (4.8-10.8)
[2017-03-16 05:19] LABS: POTASSIUM 3.6 mmol/L (3.5-5.1)
[2017-03-16 05:21] LABS: CREATININE 2.82 mg/dl (0.44-1.00)
[2017-03-16 05:22] LABS: CALCIUM 8.3 mg/dl (8.4-10.2)
[2017-03-16] MEDS ORDERED: EPINEPHrine 0.1 MG/ML SYG ONE (07:00)
[2017-03-16] MEDS ORDERED: ADENOSINE 3 MG/ML SYRINGE IV ONE (07:00)
[2017-03-16] MEDS ORDERED: DOPamine-D5W 1.6 MG/ML 250 ML ONE (07:00)
--- NOTE | 2017-03-16 08:06 | CONS ---
Date/Time of Note Date/Time of Note DATE: 03/16/17 TIME: 08:03 Assessment/Plan Assessment/Plan Chief Complaint/Hosp Course IMPRESSION: 1. Malfunctioning gastrostomy tube. 2. Cellulitis as well as contact dermatitis around the G-tube site. 3. Vent-dependent respiratory failure. 4. Chronic kidney disease. 5. Hypernatremia. 6. Parkinson disease. 7. Hypotension, probably related to sepsis. 8. renal failure, urine output improved 9. 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 Septic shock patient has MRSA bacteremia and UTI Plan G-tube removed, along with the gastrocutaneous fistula to shrink in size Continue antibiotic and pressor support Once the condition is more stable then we will make an attempt to close the G- tube site and put a new G-tube OK to use NGT for meds Continue vent support Problems: Consultation Date/Type/Reason Admit Date/Time March 11, 2017 at 22:57 Initial Consult Date 03/14/17 Type of Consultation: GI 24 HR Interval Summary Free Text/Dictation non-verbal Subjective hx not possible: pt critical Exam/Review of Systems Vital Signs Vitals Vital Signs Date Time Temp Pulse Resp B/P Pulse Ox O2 Delivery O2 Flow Rate FiO2 03/16/17 05:03 65 16 100 30 03/15/17 23:30 101/43 03/15/17 23:00 Mechanical Ventilator 03/15/17 20:00 95.8 Intake and Output 03/15/17 03/15/17 03/16/17 15:00 23:00 07:00 Intake Total 1034.7 ml 922.45 ml 573 ml Output Total 365 ml 200 ml 155 ml Balance 669.7 ml 722.45 ml 418 ml Exam Constitutional: non-verbal Psych: confusion Head: atraumatic, normocephalic Eyes: nl conjunctiva, nl lids, nl sclera ENMT: mucosa pink and moist, nl external ears & nose, nl lips & teeth, nl nasal mucosa & septum Neck: non-tender, supple Respiratory: clear to auscultation, normal air movement Cardiovascular: nl pulses, regular rate and rhythm Gastrointestinal: bowel sounds, non-tender, other (Cellulitis as well as contact dermatitis around the G-tube site with G-tube removed.), soft Results Result Diagram: 03/16/17 0430 03/16/17 0430 Results 24 hrs Laboratory Tests Test 03/15/17 13:24 03/15/17 13:35 03/15/17 17:48 03/15/17 18:15 Bedside Glucose 129 112 Sodium Level 152 H Potassium Level 3.8 Chloride Level 120 H Carbon Dioxide Level 25 Anion Gap 11 Blood Urea Nitrogen 67 H Creatinine 2.83 H Glucose Level 111 Lactic Acid Level 3.9 H 3.7 H Calcium Level 8.3 L Test 03/15/17 23:29 03/16/17 04:30 03/16/17 04:52 03/16/17 07:06 Bedside Glucose 139 135 White Blood Count 11.2 H Red Blood Count 2.81 #L Hemoglobin 8.5 #L Hematocrit 27.9 L Mean Corpuscular Volume 99.3 Mean Corpuscular Hemoglobin 30.2 Mean Corpuscular Hemoglobin Concent 30.5 L Red Cell Distribution Width 21.9 H Platelet Count 235 # Mean Platelet Volume 9.7 Neutrophils % 92.6 H Lymphocytes % 2.5 L Monocytes % 1.5 Eosinophils % 2.7 Basophils % 0.2 Nucleated Red Blood Cells % 0.0 Neutrophils # 10.4 H Lymphocytes # 0.3 L Monocytes # 0.2 L Eosinophils # 0.3 Basophils # 0.0 Nucleated Red Blood Cells # 0.0 Sodium Level 154 H Potassium Level 3.6 Chloride Level 118 H Carbon Dioxide Level 25 Anion Gap 15 Blood Urea Nitrogen 69 H Creatinine 2.82 H Glucose Level 126 Calcium Level 8.3 L Phosphorus Level 5.0 H Magnesium Level 2.0 Lab Scanned Report BLOOD TRANSFUSION Medications Medications Current Medications Bisacodyl (Dulcolax Supp) 10 mg Q48H [place] ; Start 03/11/17 at 23:30 Chlorhexidine Gluconate (Peridex) 15 ml BID MT Last administered on 03/15/17 20:41; Admin Dose 15 ML; Start 03/12/17 at 09:00 Epoetin Vasyl (Epogen (Non Esrd/Non Oncology)) 10,000 units MoWeFr@17 SC Last administered on 03/15/17 17:48; Admin Dose 10,000 UNITS; Start 03/13/17 at 17: 00 Heparin Sodium (Porcine) (Heparin (5000 Units/0.5 ml)) 5,000 unit BID SC Last administered on 03/13/17 21:06; Admin Dose 5,000 UNIT; Start 03/12/17 at 09:00 ; Status Future Hold Metoprolol Tartrate (Lopressor) 25 mg Q12H GTB Last administered on 03/12/17 12:05; Admin Dose 25 MG; Start 03/11/17 at 23:30; Status Future Hold Sodium Biphosphate/ Sodium Phosphate 118 ml 118 ml Q72H PRN [place] CONSTIPATION; Start 03/11/17 at 23:30 Norepinephrine 16 mg/Dextrose 500 ml @ 0 mls/hr TITRATE IV Last administered on 03/16/17 04:02; Admin Dose 2.94 MLS/HR; Start 03/13/17 at 10:00 Phenylephrine HCl 250 ml @ 75 mls/hr TITRATE PRN IV BLOOD PRESSURE SUPPORT; Start 03/12/17 at 21:30 Meropenem (Merrem 500 Mg/ 100 ml (Pmx)) 100 ml @ 200 mls/hr Q12 IVPB Last administered on 03/15/17 20:15; Admin Dose 200 MLS/HR; Start 03/13/17 at 21:00 Nystatin (Nystatin Powder) 1 applic BID TOP Last administered on 03/15/17 20: 42; Admin Dose 1 APPLIC; Start 03/13/17 at 15:00 Collagenase (Santyl) 1 applic DAILY TOP Last administered on 03/15/17 08:18; Admin Dose 1 APPLIC; Start 03/13/17 at 15:00 Insulin Aspart (Novolog Insulin Pen) NOVOLOG *MILD* ALGORI... Q6 SC ; Start at 12:00 Miscellaneous Information 1 ea NOTE XX ; Start 03/14/17 at 07:30 Glucose (Glutose) 15 gm Q15M PRN PO DECREASED GLUCOSE; Start 03/14/17 at 07:30 Glucose (Glutose) 22.5 gm Q15M PRN PO DECREASED GLUCOSE; Start 03/14/17 at 07: 30 Dextrose (D50w Syringe) 25 ml Q15M PRN IV DECREASED GLUCOSE; Start 03/14/17 at 07:30 Dextrose (D50w Syringe) 50 ml Q15M PRN IV DECREASED GLUCOSE; Start 03/14/17 at 07:30 Glucagon (Glucagen) 1 mg Q15M PRN IM DECREASED GLUCOSE; Start 03/14/17 at 07:30 Glucose 15 gm 15 gm Q15M PRN BUCCAL DECREASED GLUCOSE; Start 03/14/17 at 07:30 Dextrose/Sodium Chloride 1,000 ml @ 100 mls/hr Q10H IV Last administered on 03:31; Admin Dose 100 MLS/HR; Start 03/15/17 at 07:30 Linezolid 300 ml @ 300 mls/hr Q12 IVPB Last administered on 03/15/17 20:41; Admin Dose 300 MLS/HR; Start 03/15/17 at 21:00 Fluconazole/ Sodium Chloride (Diflucan 100 Mg/ NS (Pmx)) 50 ml @ 50 mls/hr Q24H IVPB Last administered on 03/16/17 01:08; Admin Dose 50 MLS/HR; Start at 00:00 ZAY BOYER MD March 16, 2017 08:05
[2017-03-16] MEDS: MEROPENEM 500 MG/100 ML (PMX) 100 ML IVPB SCH ×2 (08:52→23:23)
[2017-03-16] MEDS: NYSTATIN 30 GM POWDER BTL TOP SCH ×2 (08:52→21:49)
[2017-03-16] MEDS: CHLORHEXIDINE GLUCONATE 15 ML UD CUP MT SCH ×2 (08:52→21:48)
[2017-03-16] MEDS: LINEZOLID 600 MG/D5W (PMX) 300 ML IVPB SCH ×2 (08:52→21:48)
[2017-03-16] MEDS: COLLAGENASE 30 GM TUBE TOP SCH (09:01)
--- NOTE | 2017-03-16 09:20 | PN ---
DATE: 03/16/2017 SUBJECTIVE: The patient remains critically ill, remains on pressor support, on full ventilatory sup port. The patient's blood cultures yesterday came out positive for yeast. Repeat blood cultures osuna ve been negative. No other events noted. OBJECTIVE: VITAL SIGNS: Blood pressure is 101/43, respirations 14, pulse 63, temperature 98.7. HEENT: Head is normocephalic. NECK: Shows trach. HEART: Regular rate. LUNGS: Show diminished breath sounds at the bases. ABDOMEN: Soft, nontender to palpation. No rebound or guarding. EXTREMITIES: Negative for clubbing, cyanosis. Positive edema. DERMATOLOGIC: No rashes. MUSCULOSKELETAL: No joint effusions. NEUROLOGIC: No change in exam. MEDICATIONS: The patient's medications have been reviewed. LABORATORY DATA: Shows sodium 154, potassium 3.6, chloride 118, BUN 69, creatinine 2.82, phosphorus 5.0. White count 11.2, hemoglobin 8.5, hematocrit 27.9, platelet count 235. The patient's repeat blood cultures 03/15/2017 have been negative to date. ASSESSMENT AND PLAN: 1. Septic shock. Etiology is multifactorial secondary to healthcare-associated pneumonia, urinary tract infection, cellulitis, fungemia. The patient is on broad-spectrum antimicrobial and antifunga l therapy. Continue current treatment plan. Continue to wean off pressors. Continue IV fluids. F ollow up with infectious disease. 2. Ventilator-dependent respiratory failure. Vent settings have been reviewed. ABG has been revie wed. Continue to monitor. 3. Oliguric acute kidney injury on top of chronic kidney disease stage IV. Etiology secondary to a cute tubular necrosis. Renal function has remained stable. We will continue current treatment plan , supportive care, renally dose all meds. 4. Hypernatremia. The patient has free water deficit of approximately 4-1/2 liters. We will incre ase IV fluids half NS to 125 mL/hour. Continue to monitor serum sodium levels. 5. Arrhythmia episode and nonsustained ventricular tachycardia. We will continue to monitor. Foll ow up with cardiology. 6. Abdominal wall cellulitis with infected G-tube. The patient's G-tube has been removed. Continu e to monitor. Continue local wound care. Appreciate GI and general surgery's evaluation. 7. Dysphagia. The patient has an NG tube currently on intermittent suction. 8. Mixed acid base disorder. The patient has respiratory alkalosis and anion gap metabolic acidosi s and metabolic alkalosis. We will continue to monitor. 9. 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 Etiology is toxic metabolic. Continue t o monitor. 10. Mineral bone disorder. Continue to monitor calcium and phosphorus levels. 11. Anemia. Continue to monitor hemoglobin and hematocrit levels. The patient is status post bloo d transfusion. Continue to monitor and transfuse as needed. 12. History of coronary artery disease. Continue medical management. 13. Diabetes. Continue Accu-Cheks and insulin sliding scale. 14. Decubitus wound. Continue wound care. 15. Gastrointestinal and deep venous thrombosis prophylaxis. Continue proton pump inhibitor and se quential leg squeezers. 16. Nutrition. The patient may require TPN. We will monitor closely. Please note I spent over 35 minutes of critical care time with this patient. Dictated By: OSMAR HERNANDEZ/RAYSA Conf#: [id number] DID#: [id number]
--- NOTE | 2017-03-16 10:45 | CONS ---
Date/Time of Note Date/Time of Note DATE: 03/16/17 TIME: 10:44 Assessment/Plan Assessment/Plan Chief Complaint/Hosp Course ID PROGRESS NOTE TOTAL ABX DAY # Zyvox, Merrem, Diflucan 24H INTERVAL SUMMARY * 86 yo F seen in ICU w/cold shock, hypothermic on pressors, non-communicative, orally intubated * Chart reviewed, d/w RN, patient examined PHYSICAL EXAMINATION: GENERAL: VSS,NAD, no fevers HEENT: NGT->Secure / ETT secure NECK: Supple, trach-> midline CHEST: Equal chest rise bilaterally, Vented HEART: Pulse RRR ABDOMEN: Soft -> see photos large EC fistula EXTREMITIES: Warm, no edema SKIN: Warm, dry ID ASSESSMENT: 86 yo F admitted with: 1. Severe MRSA/Enterococcal septicemia with shock, hypothermia, leukocytosis, lactic acidosis => multifactorial as below 2. Polymicrobial bacteremia=> MRSA + Enterococcus 3. G-tube site cellulitis, with large gastrocutaneous fistula, with a G-tube malfunction. Status post discontinued. 4. Polymicrobial urinary tract infection-> 03/11/17 * URINE CULTURE Final Organism 1 PROVIDENCIA RETTGERI COLONY COUNT >100,000 CFU/ml Organism 2 PROTEUS MIRABILIS COLONY COUNT >100,000 CFU/ml Organism 3 PSEUDOMONAS AERUGINOSA COLONY COUNT >100,000 CFU/ml Organism 4 K PNEUMO ESBL COLONY COUNT >100,000 CFU/ml . MULTI DRUG RESISTANT ORGANISM 5. Healthcare-associated pneumonia. 6. Acute on chronic anemia. 7. Diabetes. 8. Acute kidney injury. (-)MRSA NARES INVASIVES: * PIV ABX ALLERGIES: KNDA CURRENT ABX: DAY # Zyvox, Merrem, Diflucan ID RECOMMENDATIONS: 1. Continue IV ABX and hope for the best. . Problems: Consultation Date/Type/Reason Admit Date/Time March 11, 2017 at 22:57 Initial Consult Date 03/14/17 Type of Consultation: ID Exam/Review of Systems Vital Signs Vitals Vital Signs Date Time Temp Pulse Resp B/P Pulse Ox O2 Delivery O2 Flow Rate FiO2 03/16/17 08:32 30 03/16/17 08:00 66 03/16/17 05:03 16 100 03/15/17 23:30 101/43 03/15/17 23:00 Mechanical Ventilator 03/15/17 20:00 95.8 Intake and Output 03/15/17 03/15/17 03/16/17 15:00 23:00 07:00 Intake Total 1034.7 ml 922.45 ml 573 ml Output Total 365 ml 200 ml 155 ml Balance 669.7 ml 722.45 ml 418 ml Results Result Diagram: 03/16/17 0430 03/16/17 0430 Results 24 hrs Laboratory Tests Test 03/15/17 13:24 03/15/17 13:35 03/15/17 17:48 03/15/17 18:15 Bedside Glucose 129 112 Sodium Level 152 H Potassium Level 3.8 Chloride Level 120 H Carbon Dioxide Level 25 Anion Gap 11 Blood Urea Nitrogen 67 H Creatinine 2.83 H Glucose Level 111 Lactic Acid Level 3.9 H 3.7 H Calcium Level 8.3 L Test 03/15/17 23:29 03/16/17 04:30 03/16/17 04:52 03/16/17 07:06 Bedside Glucose 139 135 White Blood Count 11.2 H Red Blood Count 2.81 #L Hemoglobin 8.5 #L Hematocrit 27.9 L Mean Corpuscular Volume 99.3 Mean Corpuscular Hemoglobin 30.2 Mean Corpuscular Hemoglobin Concent 30.5 L Red Cell Distribution Width 21.9 H Platelet Count 235 # Mean Platelet Volume 9.7 Neutrophils % 92.6 H Lymphocytes % 2.5 L Monocytes % 1.5 Eosinophils % 2.7 Basophils % 0.2 Nucleated Red Blood Cells % 0.0 Neutrophils # 10.4 H Lymphocytes # 0.3 L Monocytes # 0.2 L Eosinophils # 0.3 Basophils # 0.0 Nucleated Red Blood Cells # 0.0 Sodium Level 154 H Potassium Level 3.6 Chloride Level 118 H Carbon Dioxide Level 25 Anion Gap 15 Blood Urea Nitrogen 69 H Creatinine 2.82 H Glucose Level 126 Calcium Level 8.3 L Phosphorus Level 5.0 H Magnesium Level 2.0 Lab Scanned Report BLOOD TRANSFUSION Medications Medications Current Medications Bisacodyl (Dulcolax Supp) 10 mg Q48H [place] ; Start 03/11/17 at 23:30 Chlorhexidine Gluconate (Peridex) 15 ml BID MT Last administered on 03/16/17t 08:52; Admin Dose 15 ML; Start 03/12/17 at 09:00 Epoetin Vasyl (Epogen (Non Esrd/Non Oncology)) 10,000 units MoWeFr@17 [place] Last administered on 03/15/17 17:48; Admin Dose 10,000 UNITS; Start 03/13/17 at 17: 00 Heparin Sodium (Porcine) (Heparin (5000 Units/0.5 ml)) 5,000 unit BID SC Last administered on 03/13/17 21:06; Admin Dose 5,000 UNIT; Start 03/12/17 at 09:00 ; Status Future Hold Metoprolol Tartrate (Lopressor) 25 mg Q12H GTB Last administered on 03/12/17 12:05; Admin Dose 25 MG; Start 03/11/17 at 23:30; Status Future Hold Sodium Biphosphate/ Sodium Phosphate 118 ml 118 ml Q72H PRN [place] CONSTIPATION; Start 03/11/17 at 23:30 Norepinephrine 16 mg/Dextrose 500 ml @ 0 mls/hr TITRATE IV Last administered on 03/16/17 04:02; Admin Dose 2.94 MLS/HR; Start 03/13/17 at 10:00 Phenylephrine HCl 250 ml @ 75 mls/hr TITRATE PRN IV BLOOD PRESSURE SUPPORT; Start 03/12/17 at 21:30 Meropenem (Merrem 500 Mg/ 100 ml (Pmx)) 100 ml @ 200 mls/hr Q12 IVPB Last administered on 03/16/17 08:52; Admin Dose 200 MLS/HR; Start 03/13/17 at 21:00 Nystatin (Nystatin Powder) 1 applic BID TOP Last administered on 03/16/17 08: 52; Admin Dose 1 APPLIC; Start 03/13/17 at 15:00 Collagenase (Santyl) 1 applic DAILY TOP Last administered on 03/16/17 09:01; Admin Dose 1 APPLIC; Start 03/13/17 at 15:00 Insulin Aspart (Novolog Insulin Pen) NOVOLOG *MILD* [place]I... Q6 [place] ; Start at 12:00 Miscellaneous Information 1 ea NOTE XX ; Start 03/14/17 at 07:30 Glucose (Glutose) 15 gm Q15M PRN PO DECREASED GLUCOSE; Start 03/14/17 at 07:30 Glucose (Glutose) 22.5 gm Q15M PRN PO DECREASED GLUCOSE; Start 03/14/17 at 07: 30 Dextrose (D50w Syringe) 25 ml Q15M PRN IV DECREASED GLUCOSE; Start 03/14/17 at 07:30 Dextrose (D50w Syringe) 50 ml Q15M PRN IV DECREASED GLUCOSE; Start 03/14/17 at 07:30 Glucagon (Glucagen) 1 mg Q15M PRN IM DECREASED GLUCOSE; Start 03/14/17 at 07:30 Glucose 15 gm 15 gm Q15M PRN BUCCAL DECREASED GLUCOSE; Start 03/14/17 at 07:30 Dextrose/Sodium Chloride 1,000 ml @ 125 mls/hr Q8H IV Last administered on 03:31; Admin Dose 100 MLS/HR; Start 03/15/17 at 07:30 Linezolid 300 ml @ 300 mls/hr Q12 IVPB Last administered on 03/16/17 08:52; Admin Dose 300 MLS/HR; Start 03/15/17 at 21:00 Fluconazole/ Sodium Chloride (Diflucan 100 Mg/ NS (Pmx)) 50 ml @ 50 mls/hr Q24H IVPB Last administered on 03/16/17 01:08; Admin Dose 50 MLS/HR; Start at 00:00 SYLVIA PADRON NP March 16, 2017 10:45 Glucose 15 gm 15 gm Q15M PRN BUCCAL DECREASED GLUCOSE; Start 03/14/17 at 07:30 Dextrose/Sodium Chloride 1,000 ml @ 125 mls/hr Q8H IV Last administered on 03:31; Admin Dose 100 MLS/HR; Start 03/15/17 at 07:30 Linezolid 300 ml @ 300 mls/hr Q12 IVPB Last administered on 03/16/17 08:52; Admin Dose 300 MLS/HR; Start 03/15/17 at 21:00 Fluconazole/ Sodium Chloride (Diflucan 100 Mg/ NS (Pmx)) 50 ml @ 50 mls/hr Q24H IVPB Last administered on 03/16/17 01:08; Admin Dose 50 MLS/HR; Start at 00:00 SYLVIA PADRON NP March 16, 2017 10:45
--- NOTE | 2017-03-16 11:53 | CONS ---
Date/Time of Note Date/Time of Note DATE: 03/16/17 TIME: 11:48 Consult Date/Type/Reason Admit Date/Time March 11, 2017 at 22:57 Initial Consult Date 03/14/17 Type of Consultation: Pulm/CCM Subjective On levophed gtt. Minimally responsive on vent. Objective Vital Signs Date Time Temp Pulse Resp B/P Pulse Ox O2 Delivery O2 Flow Rate FiO2 03/16/17 11:15 67 15 104/55 99 03/16/17 11:00 Mechanical Ventilator 03/16/17 09:20 30 03/16/17 08:00 95.6 Intake and Output 03/15/17 03/15/17 03/16/17 15:00 23:00 07:00 Intake Total 1034.7 ml 922.45 ml 676.75 ml Output Total 365 ml 200 ml 155 ml Balance 669.7 ml 722.45 ml 521.75 ml Exam NECK: Trach site clean and intact. CARDIAC: S1, S2, no added sounds or murmurs. CHEST: Diminished air entry bilaterally. ABDOMEN: Soft, nontender. No guarding or rebound. EXTREMITIES: No cyanosis, clubbing, 2+ edema. Results/Medications Result Diagram: 03/16/17 0430 03/16/17 0430 Results 24 hrs Laboratory Tests Test 03/15/17 13:24 03/15/17 13:35 03/15/17 17:48 03/15/17 18:15 Bedside Glucose 129 112 Sodium Level 152 H Potassium Level 3.8 Chloride Level 120 H Carbon Dioxide Level 25 Anion Gap 11 Blood Urea Nitrogen 67 H Creatinine 2.83 H Glucose Level 111 Lactic Acid Level 3.9 H 3.7 H Calcium Level 8.3 L Test 03/15/17 23:29 03/16/17 04:30 03/16/17 04:52 03/16/17 07:06 Bedside Glucose 139 135 White Blood Count 11.2 H Red Blood Count 2.81 #L Hemoglobin 8.5 #L Hematocrit 27.9 L Mean Corpuscular Volume 99.3 Mean Corpuscular Hemoglobin 30.2 Mean Corpuscular Hemoglobin Concent 30.5 L Red Cell Distribution Width 21.9 H Platelet Count 235 # Mean Platelet Volume 9.7 Neutrophils % 92.6 H Lymphocytes % 2.5 L Monocytes % 1.5 Eosinophils % 2.7 Basophils % 0.2 Nucleated Red Blood Cells % 0.0 Neutrophils # 10.4 H Lymphocytes # 0.3 L Monocytes # 0.2 L Eosinophils # 0.3 Basophils # 0.0 Nucleated Red Blood Cells # 0.0 Sodium Level 154 H Potassium Level 3.6 Chloride Level 118 H Carbon Dioxide Level 25 Anion Gap 15 Blood Urea Nitrogen 69 H Creatinine 2.82 H Glucose Level 126 Calcium Level 8.3 L Phosphorus Level 5.0 H Magnesium Level 2.0 Lab Scanned Report BLOOD TRANSFUSION Medications Current Medications Bisacodyl (Dulcolax Supp) 10 mg Q48H [place] ; Start 03/11/17 at 23:30 Chlorhexidine Gluconate (Peridex) 15 ml BID MT Last administered on 03/16/17 08:52; Admin Dose 15 ML; Start 03/12/17 at 09:00 Epoetin Vasyl (Epogen (Non Esrd/Non Oncology)) 10,000 units MoWeFr@17 SC Last administered on 03/15/17 17:48; Admin Dose 10,000 UNITS; Start 03/13/17 at 17: 00 Heparin Sodium (Porcine) (Heparin (5000 Units/0.5 ml)) 5,000 unit BID SC Last administered on 03/13/17 21:06; Admin Dose 5,000 UNIT; Start 03/12/17 at 09:00 ; Status Future Hold Metoprolol Tartrate (Lopressor) 25 mg Q12H GTB Last administered on 03/12/17 12:05; Admin Dose 25 MG; Start 03/11/17 at 23:30; Status Future Hold Sodium Biphosphate/ Sodium Phosphate 118 ml 118 ml Q72H PRN [place] CONSTIPATION; Start 03/11/17 at 23:30 Norepinephrine 16 mg/Dextrose 500 ml @ 0 mls/hr TITRATE IV Last administered on 03/16/17 04:02; Admin Dose 2.94 MLS/HR; Start 03/13/17 at 10:00 Phenylephrine HCl 250 ml @ 75 mls/hr TITRATE PRN IV BLOOD PRESSURE SUPPORT; Start 03/12/17 at 21:30 Meropenem (Merrem 500 Mg/ 100 ml (Pmx)) 100 ml @ 200 mls/hr Q12 IVPB Last administered on 03/16/17 08:52; Admin Dose 200 MLS/HR; Start 03/13/17 at 21:00 Nystatin (Nystatin Powder) 1 applic BID TOP Last administered on 03/16/17 08: 52; Admin Dose 1 APPLIC; Start 03/13/17 at 15:00 Collagenase (Santyl) 1 applic DAILY TOP Last administered on 03/16/17 09:01; Admin Dose 1 APPLIC; Start 03/13/17 at 15:00 Insulin Aspart (Novolog Insulin Pen) NOVOLOG *MILD* [place]GORI... Q6 [place] ; Start at 12:00 Miscellaneous Information 1 ea NOTE XX ; Start 03/14/17 at 07:30 Glucose (Glutose) 15 gm Q15M PRN PO DECREASED GLUCOSE; Start 03/14/17 at 07:30 Glucose (Glutose) 22.5 gm Q15M PRN PO DECREASED GLUCOSE; Start 03/14/17 at 07: 30 Dextrose (D50w Syringe) 25 ml Q15M PRN IV DECREASED GLUCOSE; Start 03/14/17 at 07:30 Dextrose (D50w Syringe) 50 ml Q15M PRN IV DECREASED GLUCOSE; Start 03/14/17 at 07:30 Glucagon (Glucagen) 1 mg Q15M PRN IM DECREASED GLUCOSE; Start 03/14/17 at 07:30 Glucose 15 gm 15 gm Q15M PRN BUCCAL DECREASED GLUCOSE; Start 03/14/17 at 07:30 Dextrose/Sodium Chloride 1,000 ml @ 125 mls/hr Q8H IV Last administered on 03:31; Admin Dose 100 MLS/HR; Start 03/15/17 at 07:30 Linezolid 300 ml @ 300 mls/hr Q12 IVPB Last administered on 03/16/17 08:52; Admin Dose 300 MLS/HR; Start 03/15/17 at 21:00 Fluconazole/ Sodium Chloride (Diflucan 100 Mg/ NS (Pmx)) 50 ml @ 50 mls/hr Q24H IVPB Last administered on 03/16/17 01:08; Admin Dose 50 MLS/HR; Start at 00:00 Assessment/Plan Additional Assessment/Plan IMP: 1. Septic shock likely secondary to urinary tract infection cellulitis. 2. Vent dependent respiratory failure. 3. G-tube malfunction with abdominal wall cellulitis. 4. Urinary tract infection. Continue antibiotics per primary team. 5. Encephalopathy at baseline. 6. Dysphagia. 7. Hypernatremia 9. Anemia RECS: 1. Vent support 2. Levophed to MAP > 65 mm Hg 3. Abx per ID 4. Free H20 35 min cc time PINKY GHOSH MD March 16, 2017 11:53
[2017-03-16] MEDS: INSULIN ASPART [NOVOLOG] 3 ML PEN SC SCH ×3 (12:00→23:34)
--- NOTE | 2017-03-16 12:55 | PN ---
Date/Time of Note Date/Time of Note DATE: 03/16/17 TIME: 12:51 Assessment/Plan Lines/Catheters IV Catheter Type (from [facility]): Central Line Collazo in Place (from [facility]): Yes Assessment/Plan Chief Complaint/Hosp Course 1. Large gastrocutaneous fistula with continued leakage. -local care -antibiotics. -supportive -eventual debridement and closure of this to allow healing prior to replacement of the feeding tube at a later time > will await medical optimization prior to considering surgical closure of the site 2. Abdominal wall cellulitis secondary to above. Continue antibiotics and local care. 3. Methicillin-resistant Staphylococcus aureus bacteremia. -antibiotics -line change -supportive care. 4. Pelvic deformity with fluid around the pelvic bone on CT scan. We will need to discuss with radiology for possible osteo. 5. Anemia without evidence of acute blood loss. Continue close monitoring and transfuse as needed. 6. Obesity with BMI of 31. Continue nutritional optimization when possible. 7. Sepsis secondary to above. Continue as above. 8. Ventilatory dependent respiratory failure. Continue pulmonary toilet and ventilator support. 9. Acute on chronic renal failure. Continue judicious fluid management and try to avoid nephrotoxic agents. 10. Coronary artery disease. Continue cardiac optimization. 11. Hypertension. Continue nutrition and medication control. 12. Advanced Parkinson's dementia with encephalopathy. Continue medical optimization. 13. Functional quadriplegia. Continue medical optimization, off loading, & nutritional optimization 14. Congestive heart failure. Continue judicious fluid management and cardiac optimization. Thank you Problems: Subjective 24 Hr Interval Summary Pressor. No f/c. No cough. No sz. Erythema persists. No vomiting. +Stool in rectal tube. Primary requested change of line Exam/Review of Systems Vital Signs Vitals Vital Signs Date Time Temp Pulse Resp B/P Pulse Ox O2 Delivery O2 Flow Rate FiO2 03/16/17 11:15 67 15 104/55 99 03/16/17 11:00 Mechanical Ventilator 03/16/17 09:20 30 03/16/17 08:00 95.6 Intake and Output 03/15/17 03/15/17 03/16/17 15:00 23:00 07:00 Intake Total 1034.7 ml 922.45 ml 676.75 ml Output Total 365 ml 200 ml 155 ml Balance 669.7 ml 722.45 ml 521.75 ml Exam Free Text/Dictation GENERAL: Obese, noncommunicative, ventilated. HEENT: Pupils are sluggish. No scleral icterus. Mucous membranes are moist. NECK: Trach in place, no crepitus, no edema. PULMONARY: Normal respiratory effort. No wheezing. CARDIAC: S1, S2 present. ABDOMEN: Soft, obese. Edema with blanching erythema, especially around the gastrocutaneous fistula, which is large denuded tissue. EXTREMITIES: With edema. VASCULAR: Capillary refill is 3 seconds. NEUROLOGIC: Does not follow commands. SKIN: Puffy rashes. No jaundice. Abdominal wound as above. Other wounds as per nursing notes. Results Result Diagram: 03/16/170 03/16/17 0430 JOCELYN FINE MD March 16, 2017 12:55
--- NOTE | 2017-03-16 13:13 | OPR ---
Date/Time of Note Date/Time of Note DATE: 03/16/17 TIME: 12:55 Operative Report Procedure Date: March 16, 2017 Preoperative Diagnosis Need for central venous access for pressor support and CVP monitoring Postoperative Diagnosis Need for central venous access for pressor support and CVP monitoring Operation Performed 1. Right internal jugular central venous catheter insertion 2. Ultrasound guidance and interpretation 3. Local anesthetic injection, [id number] Surgeon: JOCELYN FINE MD Anesthesia: other (Local) Estimated Blood Loss: 0 - 10 ml's Specimens None Tubes/Drains Triple-lumen central line Complications: None Pt Condition Post Procedure: stable Disposition: other (Own room) Indications Per notes Risks, benefits, alternatives were fully reviewed including bleeding, hematoma, damage to neurovascular bundle, damage to the lungs (pneumothorax) Damage to the heart, hemothorax, infection, DVT, PE, air embolism, pneumonia, [place] , stroke, PE, arrhythmia, need for urgent procedures or operations, . Operative\Procedure Findings Ultrasound findings: Ultrasound identified the internal jugular vein anterolateral to the carotid and compressible. Using the ultrasound the needle was directly placed into the vein under visualization and then the wire was placed which was confirmed in both transverse and longitudinal planes. Procedure Description Patient was placed in Trendelenburg in own bed, all pressure points were well- padded, her right neck and chest were prepped and draped in usual sterile fashion and timeout was performed. Local anesthetic was infiltrated at the right neck. Using the ultrasound the neck structures were identified. The IJ is anterolateral to the carotid. The IJ is also compressible compared to the carotid. Using the ultrasound and an 18-gauge needle, IJ was accessed under direct visualization and a wire was placed. The wire placement in the IJ was confirmed using the ultrasound in longitudinal and transverse planes. Using Seldinger technique the catheter was placed over the wire into the IJ and SVC. All 3 ports easily draw back dark nonpulsatile blood and easily flushed with saline. Breath sounds and sats maintained. Postoperative chest x-ray was obtained and line was in good position without hemo-or pneumothorax. JOCELYN FINE MD March 16, 2017 13:08
--- NOTE | 2017-03-16 13:38 | RADRPT ---
PROCEDURE: XR Chest. CLINICAL INDICATION: Central line placement TECHNIQUE: Anterior chest x-ray. COMPARISON: 09/19/2013 FINDINGS: Tracheostomy tube terminates 5 cm above the bossman, unchanged. There is right internal jugular central venous catheter which terminates at the cavoatrial junction. There is a nasogastric tube which terminates the upper abdomen in the fundus of the stomach. There is retrocardiac consolidation with obscured left hemidiaphragm. There is blunting of costophrenic angles suggesting small pleural effusions, left greater than right . There is no evidence of pneumothorax. The cardiomediastinal silhouette is unremarkable. The soft tissues are normal. Osseous structures are unremarkable. IMPRESSION: 1. Right internal jugular central venous catheter satisfactory position and without evidence of pne umothorax. 2. Retrocardiac atelectasis versus infiltrate. 3. Small bilateral pleural effusions, left greater than right. 4. Stable and satisfactory position of tracheostomy tube. 5. Nasogastric tube terminates just into the fundus of the stomach and should be advanced. RPTAT: QQ .Nic Montes MD, MD Date Time Electronically viewed and signed by .Nic Montes MD, on 03/16/2017 13:38 .M/
[2017-03-16] MEDS ORDERED: PHENYLephrine 40 MG in DEXTROSE 5% 496 ML IV SCH (15:30)
[2017-03-17] VITALS (87 sets, daily range): BP systolic 71–144; BP diastolic 33–86; PULSE 67–81; RESP 12–20
[2017-03-17] MEDS: FLUCONAZOLE 100 MG/NS (PMX) 50 ML IVPB SCH ×2 (00:32→23:56)
[2017-03-17] MEDS: DEXTROSE 5%-0.45% NACL 1,000 ML IV SCH ×3 (04:35→19:04)
[2017-03-17 05:53] LABS: ADD SCAN DIFF NO
[2017-03-17] MEDS: INSULIN ASPART [NOVOLOG] 3 ML PEN SC SCH ×4 (06:00→23:59)
[2017-03-17 06:02] LABS: BASOPHILS % 0.1 % (0.0-2.0); EOSINOPHILS # 0.9 10^3/ul (0.0-0.5); EOSINOPHILS % 10.1 % (0.0-7.0); HEMATOCRIT 28.4 % (37.0-47.0); HEMOGLOBIN 8.6 g/dl (12.0-16.0); LYMPHOCYTES # 0.6 10^3/ul (0.8-2.9); LYMPHOCYTES % 7.1 % (15.0-51.0); MEAN CORPUSCULAR HEMOGLOBIN 29.9 pg (29.0-33.0); MEAN CORPUSCULAR HGB CONC 30.3 g/dl (32.0-37.0); MEAN CORPUSCULAR VOLUME 98.6 fl (82.0-101.0); MEAN PLATELET VOLUME 10.1 fl (7.4-10.4); MONOCYTE # 0.2 10^3/ul (0.3-0.9); MONOCYTES % 2.2 % (0.0-11.0); NEUTROPHIL # 7.2 10^3/ul (1.6-7.5); NEUTROPHILS % 79.6 % (39.0-77.0); PLATELET COUNT 202 10^3/UL (140-415); RED BLOOD COUNT 2.88 10^6/ul (4.20-5.40); RED CELL DISTRIBUTION WIDTH 21.5 % (11.5-14.5)
[2017-03-17 06:36] LABS: CALCIUM 8.2 mg/dl (8.4-10.2); CREATININE 2.74 mg/dl (0.44-1.00); MAGNESIUM 1.9 mg/dl (1.7-2.5); PHOSPHORUS 4.7 mg/dl (2.5-4.9); POTASSIUM 3.4 mmol/L (3.5-5.1)
[2017-03-17] MEDS ORDERED: POTASSIUM CHLORIDE 30 MEQ in DEXTROSE 5% 250 ML IVPB ONE (08:30)
[2017-03-17] MEDS: LINEZOLID 600 MG/D5W (PMX) 300 ML IVPB SCH ×2 (09:26→21:05)
[2017-03-17] MEDS: CHLORHEXIDINE GLUCONATE 15 ML UD CUP MT SCH ×2 (09:26→21:04)
[2017-03-17] MEDS: COLLAGENASE 30 GM TUBE TOP SCH (09:27)
[2017-03-17] MEDS: NYSTATIN 30 GM POWDER BTL TOP SCH ×2 (09:27→21:04)
[2017-03-17] MEDS: MEROPENEM 500 MG/100 ML (PMX) 100 ML IVPB SCH ×2 (09:45→21:05)
--- NOTE | 2017-03-17 10:56 | PN ---
DATE: 03/17/2017 SUBJECTIVE: The patient remains critically ill and remains on pressor support, unable to be weaned off. The patient's urinary output has been marginal, approximately 20 mL an hour. No other acute e vents noted. No hemoptysis, hematemesis, or hematochezia. OBJECTIVE: VITAL SIGNS: Blood pressure is 171/34, respirations 17, pulse 67, temperature 98.6. I's AND O'S: The patient has 3.5 liters in with 400 mL. HEENT: Head is normocephalic. Pupils are reactive to light. NECK: Shows trach. HEART: Regular rate. LUNGS: Show diminished breath sounds at base. ABDOMEN: Soft with a dressing over ostomy site, clean, dry, and intact. EXTREMITIES: Negative for clubbing, cyanosis. Positive edema. DERMATOLOGIC: No rashes. Positive wounds. NEUROLOGIC: No change in exam. MEDICATIONS: The patient's medications have been reviewed. LABORATORY DATA: Shows white count 9.0, hemoglobin 8.6, hematocrit 28.4, platelet count 202. Sodiu m 153, potassium 4.4, chloride 117, BUN 64, creatinine 2.74, calcium 8.2. The patient's repeat bloo d cultures have been negative. IMAGING: Chest x-ray on 03/16/2017 has been reviewed. ASSESSMENT AND PLAN: 1. Septic shock, etiology is multifactorial secondary to healthcare-associated pneumonia, urinary t ract infection, cellulitis, fungemia. The patient is on broad spectrum antimicrobial, antifungal th erapy. We will continue current treatment plan. Continue IV fluids, continue pressor support. Fol low up with infectious disease. 2. Ventilator dependent respiratory failure. Vent settings have been reviewed. ABG has been revie wed. Continue to monitor. 3. Oliguric acute kidney injury on top of chronic kidney disease, stage IV, etiology secondary to a cute tubular necrosis. Renal function has remained stable. Continue current treatment plan, suppor tive care, renally dose all meds. 4. Hypernatremia. The patient continues to have a free water deficit of approximately 4.5 liters. We will continue hypertonic fluid, 125 mL an hour. Unable to do free water flushes given the patie nt's ostomy leak. We will monitor closely. 5. Arrhythmia with episodes of nonsustained ventricular tachycardia. Continue to monitor. Follow up with Cardiology. 6. Abdominal cellulitis related to G-tube. The patient's G-tube has been removed. Continue to mon itor. Continue local wound care. 7. Nutrition. We will follow up with GI if okay to start TPN. Monitor closely. 8. Mixed acid base disorder. Continue to monitor ABGs. 9. 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 Etiology is toxic metabolic. Continue to monitor. 10. Mineral bone disorder. Continue to monitor calcium and phosphorus closely. 11. Hypokalemia. Replete with potassium chloride. 12. Anemia. Continue to monitor hemoglobin and hematocrit levels. Continue Epogen. 13. History of coronary artery disease. Continue medical management. 14. Diabetes. Continue Accu-Cheks and sliding scale. 15. Decubitus wound. Continue wound care. 16. Gastrointestinal and deep venous thrombosis prophylaxis. Continue PPI and sequential leg squee zers. Please note I spent over 35 minutes of critical care time with this patient. Dictated By: OSMAR HERNANDEZ/RAYSA Conf#: [id number] DID#: [id number]
--- NOTE | 2017-03-17 14:31 | CONS ---
Date/Time of Note Date/Time of Note DATE: 03/17/17 TIME: 14:28 Assessment/Plan Assessment/Plan Chief Complaint/Hosp Course IMPRESSION: 1. Malfunctioning gastrostomy tube. 2. Cellulitis as well as contact dermatitis around the G-tube site. 3. Vent-dependent respiratory failure. 4. Chronic kidney disease. 5. coffee ground in NGT with anemia, however h/h stable. 6. Parkinson disease. 7. Hypotension, probably related to sepsis. 8. renal failure, urine output improved 9. 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 Septic shock patient has MRSA bacteremia and UTI Plan 1. G-tube removed, along with the gastrocutaneous fistula to shrink in size. However, it is still quarter sized and unlikely to close in the next 5 days. Thus, I would recommend TPN for nutritional support for now. 2. Continue antibiotic and pressor support 3. Once the condition is more stable and the old GT site closed, then we will make an attempt to close the G-tube site and put a new G-tube 4. OK to use NGT for meds 5. Continue vent support 6. If there is acute drop in h/h and continued coffee ground in NG, then will perform EGD for hemostasis with cardiac clearance. Problems: Consultation Date/Type/Reason Admit Date/Time March 11, 2017 at 22:57 Initial Consult Date 03/14/17 Type of Consultation: GI 24 HR Interval Summary Free Text/Dictation told by nurse that there is coffee ground in the NG tube Subjective hx not possible: pt non-verbal Exam/Review of Systems Vital Signs Vitals Vital Signs Date Time Temp Pulse Resp B/P Pulse Ox O2 Delivery O2 Flow Rate FiO2 03/17/17 14:00 77 15 102/51 97 Mechanical Ventilator 03/17/17 12:00 97.9 03/17/17 11:15 30 Intake and Output 03/16/17 03/16/17 03/17/17 15:00 23:00 07:00 Intake Total 1100.31 ml 1311.24 ml 1161.22 ml Output Total 85 ml 245 ml 100 ml Balance 1015.31 ml 1066.24 ml 1061.22 ml Exam Constitutional: frail, non-verbal Psych: confusion Head: atraumatic, normocephalic Eyes: EOMI, nl conjunctiva, nl lids, nl sclera ENMT: mucosa pink and moist, nl external ears & nose, nl lips & teeth, nl nasal mucosa & septum Neck: non-tender, supple Respiratory: clear to auscultation, normal air movement Cardiovascular: nl pulses, regular rate and rhythm Gastrointestinal: bowel sounds, non-tender, other (GT site still with quarter sized opening), soft Results Result Diagram: 03/17/17 0500 03/17/17 0500 Results 24 hrs Laboratory Tests Test 03/16/17 17:21 03/16/17 23:28 03/17/17 05:00 03/17/17 06:23 Bedside Glucose 141 173 116 White Blood Count 9.0 Red Blood Count 2.88 L Hemoglobin 8.6 L Hematocrit 28.4 L Mean Corpuscular Volume 98.6 Mean Corpuscular Hemoglobin 29.9 Mean Corpuscular Hemoglobin Concent 30.3 L Red Cell Distribution Width 21.5 H Platelet Count 202 Mean Platelet Volume 10.1 Neutrophils % 79.6 H Lymphocytes % 7.1 L Monocytes % 2.2 Eosinophils % 10.1 H Basophils % 0.1 Nucleated Red Blood Cells % 0.0 Neutrophils # 7.2 Lymphocytes # 0.6 L Monocytes # 0.2 L Eosinophils # 0.9 H Basophils # 0.0 Nucleated Red Blood Cells # 0.0 Sodium Level 153 H Potassium Level 3.4 L Chloride Level 117 H Carbon Dioxide Level 24 Anion Gap 15 Blood Urea Nitrogen 64 H Creatinine 2.74 H Glucose Level 100 Calcium Level 8.2 L Phosphorus Level 4.7 Magnesium Level 1.9 Test 03/17/17 13:39 Bedside Glucose 97 Medications Medications Current Medications Bisacodyl (Dulcolax Supp) 10 mg Q48H IL ; Start 03/11/17 at 23:30 Chlorhexidine Gluconate (Peridex) 15 ml BID MT Last administered on 03/17/17 09:26; Admin Dose 15 ML; Start 03/12/17 at 09:00 Epoetin Vasyl (Epogen (Non Esrd/Non Oncology)) 10,000 units MoWeFr@17 SC Last administered on 03/15/17 17:48; Admin Dose 10,000 UNITS; Start 03/13/17 at 17: 00 Heparin Sodium (Porcine) (Heparin (5000 Units/0.5 ml)) 5,000 unit BID SC Last administered on 03/13/17 21:06; Admin Dose 5,000 UNIT; Start 03/12/17 at 09:00 ; Status Future Hold Metoprolol Tartrate (Lopressor) 25 mg Q12H GTB Last administered on 03/12/17 12:05; Admin Dose 25 MG; Start 03/11/17 at 23:30; Status Future Hold Sodium Biphosphate/ Sodium Phosphate 118 ml 118 ml Q72H PRN [place] CONSTIPATION; Start 03/11/17 at 23:30 Norepinephrine 16 mg/Dextrose 500 ml @ 0 mls/hr TITRATE IV Last administered on 03/16/17 04:02; Admin Dose 2.94 MLS/HR; Start 03/13/17 at 10:00 Meropenem (Merrem 500 Mg/ 100 ml (Pmx)) 100 ml @ 200 mls/hr Q12 IVPB Last administered on 03/16/17 23:23; Admin Dose 200 MLS/HR; Start 03/13/17 at 21:00 Nystatin (Nystatin Powder) 1 applic BID TOP Last administered on 03/17/17 09: 27; Admin Dose 1 APPLIC; Start 03/13/17 at 15:00 Collagenase (Santyl) 1 applic DAILY TOP Last administered on 03/17/17 09:27; Admin Dose 1 APPLIC; Start 03/13/17 at 15:00 Insulin Aspart (Novolog Insulin Pen) NOVOLOG *MILD* ALGORI... Q6 SC Last administered on 03/16/17 23:34; Admin Dose 1 UNIT; Start 03/14/17 at 12:00 Miscellaneous Information 1 ea NOTE XX ; Start 03/14/17 at 07:30 Glucose (Glutose) 15 gm Q15M PRN PO DECREASED GLUCOSE; Start 03/14/17 at 07:30 Glucose (Glutose) 22.5 gm Q15M PRN PO DECREASED GLUCOSE; Start 03/14/17 at 07: 30 Dextrose (D50w Syringe) 25 ml Q15M PRN IV DECREASED GLUCOSE; Start 03/14/17 at 07:30 Dextrose (D50w Syringe) 50 ml Q15M PRN IV DECREASED GLUCOSE; Start 03/14/17 at 07:30 Glucagon (Glucagen) 1 mg Q15M PRN IM DECREASED GLUCOSE; Start 03/14/17 at 07:30 Glucose 15 gm 15 gm Q15M PRN BUCCAL DECREASED GLUCOSE; Start 03/14/17 at 07:30 Dextrose/Sodium Chloride 1,000 ml @ 125 mls/hr Q8H IV Last administered on 23:26; Admin Dose 125 MLS/HR; Start 03/15/17 at 07:30 Linezolid 300 ml @ 300 mls/hr Q12 IVPB Last administered on 03/17/17 09:26; Admin Dose 300 MLS/HR; Start 03/15/17 at 21:00 Fluconazole/ Sodium Chloride 50 ml @ 50 mls/hr Q24H IVPB Last administered on 00:32; Admin Dose 50 MLS/HR; Start 03/16/17 at 00:00 Phenylephrine HCl/ Dextrose (Ryan-Syneph/D5W) 500 ml @ 75 mls/hr TITRATE IV ; Start 03/16/17 at 15:30 ZAY BOYER MD March 17, 2017 14:31
--- NOTE | 2017-03-17 15:59 | CONS ---
Date/Time of Note Date/Time of Note DATE: 03/17/17 TIME: 15:58 Assessment/Plan Assessment/Plan Chief Complaint/Hosp Course ID PROGRESS NOTE TOTAL ABX DAY # Zyvox, Merrem, Diflucan 24H INTERVAL SUMMARY * No fevers, WBC normalized -- 86 yo F seen in ICU w/cold shock, hypothermic on pressors, non-communicative, orally intubated * Chart reviewed, d/w RN, patient examined PHYSICAL EXAMINATION: GENERAL: VSS,NAD, no fevers HEENT: NGT->Secure / ETT secure NECK: Supple, trach-> midline CHEST: Equal chest rise bilaterally, Vented HEART: Pulse RRR ABDOMEN: Soft -> see photos large EC fistula EXTREMITIES: Warm, no edema SKIN: Warm, dry ID ASSESSMENT: 86 yo F admitted with: 1. Severe MRSA/Enterococcal septicemia with shock, hypothermia, leukocytosis, lactic acidosis => multifactorial as below 2. Polymicrobial bacteremia=> MRSA + Enterococcus 3. G-tube site cellulitis, with large gastrocutaneous fistula, with a G-tube malfunction. Status post discontinued. 4. Polymicrobial urinary tract infection-> 03/11/17 * URINE CULTURE Final Organism 1 PROVIDENCIA RETTGERI COLONY COUNT >100,000 CFU/ml Organism 2 PROTEUS MIRABILIS COLONY COUNT >100,000 CFU/ml Organism 3 PSEUDOMONAS AERUGINOSA COLONY COUNT >100,000 CFU/ml Organism 4 K PNEUMO ESBL COLONY COUNT >100,000 CFU/ml . MULTI DRUG RESISTANT ORGANISM 5. Healthcare-associated pneumonia. 6. Acute on chronic anemia. 7. Diabetes. 8. Acute kidney injury. (-)MRSA NARES INVASIVES: * PIV ABX ALLERGIES: KNDA CURRENT ABX: DAY # Zyvox, Merrem, Diflucan ID RECOMMENDATIONS: 1. Continue IV ABX and supportive care... . Problems: Consultation Date/Type/Reason Admit Date/Time March 11, 2017 at 22:57 Initial Consult Date 03/14/17 Type of Consultation: ID Exam/Review of Systems Vital Signs Vitals Vital Signs Date Time Temp Pulse Resp B/P Pulse Ox O2 Delivery O2 Flow Rate FiO2 03/17/17 14:00 77 15 102/51 97 Mechanical Ventilator 03/17/17 12:00 97.9 03/17/17 11:15 30 Intake and Output 03/16/17 03/16/1703/17/17 15:00 23:00 07:00 Intake Total 1100.31 ml 1311.24 ml 1161.22 ml Output Total 85 ml 245 ml 100 ml Balance 1015.31 ml 1066.24 ml 1061.22 ml Results Result Diagram: 03/17/17 0500 03/17/17 0500 Results 24 hrs Laboratory Tests Test 03/16/17 17:21 03/16/17 23:28 03/17/17 05:00 03/17/17 06:23 Bedside Glucose 141 173 116 White Blood Count 9.0 Red Blood Count 2.88 L Hemoglobin 8.6 L Hematocrit 28.4 L Mean Corpuscular Volume 98.6 Mean Corpuscular Hemoglobin 29.9 Mean Corpuscular Hemoglobin Concent 30.3 L Red Cell Distribution Width 21.5 H Platelet Count 202 Mean Platelet Volume 10.1 Neutrophils % 79.6 H Lymphocytes % 7.1 L Monocytes % 2.2 Eosinophils % 10.1 H Basophils % 0.1 Nucleated Red Blood Cells % 0.0 Neutrophils # 7.2 Lymphocytes # 0.6 L Monocytes # 0.2 L Eosinophils # 0.9 H Basophils # 0.0 Nucleated Red Blood Cells # 0.0 Sodium Level 153 H Potassium Level 3.4 L Chloride Level 117 H Carbon Dioxide Level 24 Anion Gap 15 Blood Urea Nitrogen 64 H Creatinine 2.74 H Glucose Level 100 Calcium Level 8.2 L Phosphorus Level 4.7 Magnesium Level 1.9 Test 03/17/17 13:39 Bedside Glucose 97 Medications Medications Current Medications Bisacodyl (Dulcolax Supp) 10 mg Q48H DC ; Start 03/11/17 at 23:30 Chlorhexidine Gluconate (Peridex) 15 ml BID MT Last administered on 03/17/17 09:26; Admin Dose 15 ML; Start 03/12/17 at 09:00 Epoetin Avsyl (Epogen (Non Esrd/Non Oncology)) 10,000 units MoWeFr@17 SC Last administered on 03/15/17 17:48; Admin Dose 10,000 UNITS; Start 03/13/17 at 17: 00 Heparin Sodium (Porcine) (Heparin (5000 Units/0.5 ml)) 5,000 unit BID SC Last administered on 03/13/17 21:06; Admin Dose 5,000 UNIT; Start 03/12/17 at 09:00 ; Status Future Hold Metoprolol Tartrate (Lopressor) 25 mg Q12H GTB Last administered on 03/12/17 12:05; Admin Dose 25 MG; Start 03/11/17 at 23:30; Status Future Hold Sodium Biphosphate/ Sodium Phosphate 118 ml 118 ml Q72H PRN [place] CONSTIPATION; Start 03/11/17 at 23:30 Norepinephrine 16 mg/Dextrose 500 ml @ 0 mls/hr TITRATE IV Last administered on 03/16/17 04:02; Admin Dose 2.94 MLS/HR; Start 03/13/17 at 10:00 Meropenem (Merrem 500 Mg/ 100 ml (Pmx)) 100 ml @ 200 mls/hr Q12 IVPB Last administered on 03/16/17 23:23; Admin Dose 200 MLS/HR; Start 03/13/17 at 21:00 Nystatin (Nystatin Powder) 1 applic BID TOP Last administered on 03/17/17 09: 27; Admin Dose 1 APPLIC; Start 03/13/17 at 15:00 Collagenase (Santyl) 1 applic DAILY TOP Last administered on 03/17/17 09:27; Admin Dose 1 APPLIC; Start 03/13/17 at 15:00 Insulin Aspart (Novolog Insulin Pen) NOVOLOG *MILD* ALGORI... Q6 SC Last administered on 03/16/17 23:34; Admin Dose 1 UNIT; Start 03/14/17 at 12:00 Miscellaneous Information 1 ea NOTE XX ; Start 03/14/17 at 07:30 Glucose (Glutose) 15 gm Q15M PRN PO DECREASED GLUCOSE; Start 03/14/17 at 07:30 Glucose (Glutose) 22.5 gm Q15M PRN PO DECREASED GLUCOSE; Start 03/14/17 at 07: 30 Dextrose (D50w Syringe) 25 ml Q15M PRN IV DECREASED GLUCOSE; Start 03/14/17 at 07:30 Dextrose (D50w Syringe) 50 ml Q15M PRN IV DECREASED GLUCOSE; Start 03/14/17 at 07:30 Glucagon (Glucagen) 1 mg Q15M PRN IM DECREASED GLUCOSE; Start 03/14/17 at 07:30 Glucose 15 gm 15 gm Q15M PRN BUCCAL DECREASED GLUCOSE; Start 03/14/17 at 07:30 Dextrose/Sodium Chloride 1,000 ml @ 125 mls/hr Q8H IV Last administered on 13:25; Admin Dose 125 MLS/HR; Start 03/15/17 at 07:30; Stop 03/17/17 at 17:59 Linezolid 300 ml @ 300 mls/hr Q12 IVPB Last administered on 03/17/17 09:26; Admin Dose 300 MLS/HR; Start 03/15/17 at 21:00 Fluconazole/ Sodium Chloride 50 ml @ 50 mls/hr Q24H IVPB Last administered on 00:32; Admin Dose 50 MLS/HR; Start 03/16/17 at 00:00 Phenylephrine HCl 40 mg/Dextrose 500 ml @ 75 mls/hr TITRATE IV ; Start at 15:30 Total Parenteral Nutrition 1,000 ml @ 50 mls/hr Q20H IV ; Start 03/17/17 at 18: 00 Dextrose/Sodium Chloride (D5-1/2ns) 1,000 ml @ 50 mls/hr Q20H IV ; Start at 18:00 SYLVIA PADRON NP March 17, 2017 15:59
[2017-03-17] MEDS: TPN 1,000 ML IV SCH (19:39)
--- NOTE | 2017-03-17 20:59 | PN ---
Date/Time of Note Date/Time of Note DATE: 03/17/17 TIME: 20:58 Assessment/Plan Lines/Catheters IV Catheter Type (from [facility]): Central Line Collazo in Place (from [facility]): Yes Assessment/Plan Chief Complaint/Hosp Course 1. Large gastrocutaneous fistula with continued leakage. -local care -antibiotics. -supportive -eventual debridement and closure of this to allow healing prior to replacement of the feeding tube at a later time > will await medical optimization prior to considering surgical closure of the site 2. Abdominal wall cellulitis secondary to above. Continue antibiotics and local care. 3. Methicillin-resistant Staphylococcus aureus bacteremia. -antibiotics -line change -supportive care. 4. Pelvic deformity with fluid around the pelvic bone on CT scan. We will need to discuss with radiology for possible osteo. 5. Anemia without evidence of acute blood loss. Continue close monitoring and transfuse as needed. 6. Obesity with BMI of 31. Continue nutritional optimization when possible. 7. Sepsis secondary to above. Continue as above. 8. Ventilatory dependent respiratory failure. Continue pulmonary toilet and ventilator support. 9. Acute on chronic renal failure. Continue judicious fluid management and try to avoid nephrotoxic agents. 10. Coronary artery disease. Continue cardiac optimization. 11. Hypertension. Continue nutrition and medication control. 12. Advanced Parkinson's dementia with encephalopathy. Continue medical optimization. 13. Functional quadriplegia. Continue medical optimization, off loading, & nutritional optimization 14. Congestive heart failure. Continue judicious fluid management and cardiac optimization. Thank you Problems: Subjective 24 Hr Interval Summary Pressor. No f/c. No cough. No sz. Erythema persists. No vomiting. +Stool in rectal tube. Primary requested change of line Exam/Review of Systems Vital Signs Vitals Vital Signs Date Time Temp Pulse Resp B/P Pulse Ox O2 Delivery O2 Flow Rate FiO2 03/17/17 20:00 30 03/17/17 20:00 97.0 78 13 105/55 99 Mechanical Ventilator Intake and Output 03/16/17 03/16/17 03/17/17 15:00 23:00 07:00 Intake Total 1100.31 ml 1311.24 ml 1161.22 ml Output Total 85 ml 245 ml 120 ml Balance 1015.31 ml 1066.24 ml 1041.22 ml Exam Free Text/Dictation GENERAL: Obese, noncommunicative, ventilated. HEENT: Pupils are sluggish. No scleral icterus. Mucous membranes are moist. NECK: Trach in place, no crepitus, no edema. PULMONARY: Normal respiratory effort. No wheezing. CARDIAC: S1, S2 present. ABDOMEN: Soft, obese. Edema with blanching erythema, especially around the gastrocutaneous fistula, which is large denuded tissue. EXTREMITIES: With edema. VASCULAR: Capillary refill is 3 seconds. NEUROLOGIC: Does not follow commands. SKIN: Puffy rashes. No jaundice. Abdominal wound as above. Other wounds as per nursing notes. Results Result Diagram: 03/17/17 0500 03/17/17 0500 JOCELYN FINE MD March 17, 2017 20:59
[2017-03-17] MEDS: BISACODYL 10 MG SUPP PR SCH (23:30)
[2017-03-18] VITALS (43 sets, daily range): BP systolic 92–144; BP diastolic 42–71; PULSE 64–74; RESP 11–23
[2017-03-18 04:46] LABS: ADD SCAN DIFF NO
[2017-03-18 04:52] LABS: BASOPHILS % 0.2 % (0.0-2.0); EOSINOPHILS # 0.5 10^3/ul (0.0-0.5); EOSINOPHILS % 7.7 % (0.0-7.0); HEMATOCRIT 27.5 % (37.0-47.0); HEMOGLOBIN 8.1 g/dl (12.0-16.0); LYMPHOCYTES # 0.8 10^3/ul (0.8-2.9); LYMPHOCYTES % 12.1 % (15.0-51.0); MEAN CORPUSCULAR HEMOGLOBIN 29.3 pg (29.0-33.0); MEAN CORPUSCULAR HGB CONC 29.5 g/dl (32.0-37.0); MEAN CORPUSCULAR VOLUME 99.6 fl (82.0-101.0); MONOCYTE # 0.2 10^3/ul (0.3-0.9); MONOCYTES % 2.4 % (0.0-11.0); NEUTROPHILS % 75.3 % (39.0-77.0); PLATELET COUNT 171 10^3/UL (140-415); RED BLOOD COUNT 2.76 10^6/ul (4.20-5.40); RED CELL DISTRIBUTION WIDTH 20.7 % (11.5-14.5); WHITE BLOOD COUNT 6.6 10^3/ul (4.8-10.8)
[2017-03-18 05:18] LABS: CALCIUM 7.9 mg/dl (8.4-10.2); CREATININE 2.62 mg/dl (0.44-1.00); MAGNESIUM 1.9 mg/dl (1.7-2.5); PHOSPHORUS 4.2 mg/dl (2.5-4.9); POTASSIUM 3.7 mmol/L (3.5-5.1)
[2017-03-18] MEDS: INSULIN ASPART [NOVOLOG] 3 ML PEN SC SCH ×3 (05:41→17:41)
[2017-03-18] MEDS: MEROPENEM 500 MG/100 ML (PMX) 100 ML IVPB SCH ×2 (08:54→21:09)
[2017-03-18] MEDS: LINEZOLID 600 MG/D5W (PMX) 300 ML IVPB SCH ×2 (08:55→21:09)
[2017-03-18] MEDS: CHLORHEXIDINE GLUCONATE 15 ML UD CUP MT SCH ×2 (08:55→21:09)
[2017-03-18] MEDS: COLLAGENASE 30 GM TUBE TOP SCH (08:55)
[2017-03-18] MEDS: NYSTATIN 30 GM POWDER BTL TOP SCH ×2 (08:55→21:10)
--- NOTE | 2017-03-18 09:16 | PN ---
DATE: 03/18/2017 SUBJECTIVE: The patient remains critically ill, although was being weaned off pressor support and h as been off pressors for the last 2 hours. The patient's blood pressures remain low. Urinary outpu t has been marginal. The patient was initiated on TPN yesterday. No other acute events noted. No hemoptysis, hematemesis or hematochezia. OBJECTIVE: VITAL SIGNS: Blood pressure is 100/47, respiration 12, pulse 67, temperature 96.8. I's AND O'S: The patient had 2.6 liters in, 500 mL out. HEENT: Head is normocephalic. NECK: Supple. HEART: Regular rate. LUNGS: Show diminished breath sounds at base. ABDOMEN: Soft, nontender to palpation. No rebound or guarding. EXTREMITIES: Negative for clubbing, cyanosis. Positive edema, positive wounds. DERMATOLOGIC: No new rashes. MUSCULOSKELETAL: Positive contractures. NEUROLOGIC: Not able to be examined as the patient is obtunded. MEDICATIONS: Patient medications have been reviewed. LABORATORY DATA: Shows sodium 148, potassium 3.7, chloride 115, BUN 61, creatinine 2.62. White cou nt is 6.6, hemoglobin 8.1, hematocrit 27.5, platelet count is 171. ASSESSMENT AND PLAN: 1. Septic shock, etiology is multifactorial secondary to healthcare-associated pneumonia, urinary t ract infection, cellulitis, anemia. The patient is currently off pressor support. At this point, c ontinue broad spectrum antimicrobial antifungal therapy. Follow up repeat cultures. Follow up with infectious disease. 2. Ventilator dependent respiratory failure. Vent settings reviewed. ABG is reviewed. Continue t o monitor. 3. Nonoliguric acute kidney injury on top of chronic kidney disease, stage IV, etiology secondary t o acute tubular necrosis from septic acute kidney injury. Renal function is slowly improving. Cont inue current treatment plan, supportive care, renally dose meds, avoid nephrotoxins. 4. Hypernatremia. The patient's sodium levels are improving. Continue hypertonic fluids. 5. Arrhythmia with episodes of nonsustained ventricular tachycardia, currently stable. Continue to monitor. Follow up with Cardiology. 6. Abdominal cellulitis secondary G-tube. The patient's G-tube has been removed. Continue to teresa tor. Continue local wound care. 7. Nutrition. Continue TPN. 8. Acute encephalopathy and advanced Parkinson's dementia. Etiology is toxic metabolic. Continue to monitor. 9. Mineral bone disorder. Monitor calcium and phosphorus levels. 10. Hypokalemia. Continue to monitor and replete. 11. Anemia. Monitor H and H levels. Continue Epogen. 12. History of coronary artery disease. Continue current treatment plan. 13. Diabetes, continue Accu-Cheks and sliding scale. 14. Decubitus wound. Continue wound care. 15. Gastrointestinal and deep venous thrombosis prophylaxis. Continue PPI, sequential leg squeezer s. Please note I spent over 35 minutes of critical care time with this patient. Dictated By: OSMAR HERNANDEZ/RAYSA Conf#: [id number] DID#: [id number]
--- NOTE | 2017-03-18 10:09 | CONS ---
Date/Time of Note Date/Time of Note DATE: 03/18/17 TIME: 10:07 Consult Date/Type/Reason Admit Date/Time March 11, 2017 at 22:57 Initial Consult Date 03/14/17 Type of Consultation: Pulm/CCM Subjective Continues to do poorly. Low UO; on TPN; borderline BP on levo gtt Objective Vital Signs Date Time Temp Pulse Resp B/P Pulse Ox O2 Delivery O2 Flow Rate FiO2 03/18/17 09:00 67 16 102/52 98 Mechanical Ventilator 03/18/17 08:00 96.6 03/18/17 08:00 30 Intake and Output 03/17/17 03/17/17 03/18/17 15:00 23:00 07:00 Intake Total 989.96 ml 414.96 ml 1154.65 ml Output Total 160 ml 168 ml 150 ml Balance 829.96 ml 246.96 ml 1004.65 ml Exam NECK: Trach site clean and intact. CARDIAC: S1, S2, no added sounds or murmurs. CHEST: Diminished air entry bilaterally. ABDOMEN: Soft, nontender. No guarding or rebound. EXTREMITIES: No cyanosis, clubbing, 2+ edema. Results/Medications Result Diagram: 03/18/17 0430 03/18/17 0430 Results 24 hrs Laboratory Tests Test 03/17/17 13:39 03/17/17 18:56 03/17/17 23:57 03/18/17 04:30 Bedside Glucose 97 78 141 White Blood Count 6.6 # Red Blood Count 2.76 L Hemoglobin 8.1 L Hematocrit 27.5 L Mean Corpuscular Volume 99.6 Mean Corpuscular Hemoglobin 29.3 Mean Corpuscular Hemoglobin Concent 29.5 L Red Cell Distribution Width 20.7 H Platelet Count 171 Mean Platelet Volume 10.0 Neutrophils % 75.3 Lymphocytes % 12.1 L Monocytes % 2.4 Eosinophils % 7.7 H Basophils % 0.2 Nucleated Red Blood Cells % 0.0 Neutrophils # 5.0 Lymphocytes # 0.8 Monocytes # 0.2 L Eosinophils # 0.5 Basophils # 0.0 Nucleated Red Blood Cells # 0.0 Sodium Level 148 H Potassium Level 3.7 Chloride Level 115 H Carbon Dioxide Level 25 Anion Gap 12 Blood Urea Nitrogen 61 H Creatinine 2.62 H Glucose Level 134 Calcium Level 7.9 L Phosphorus Level 4.2 Magnesium Level 1.9 Test 03/18/17 05:41 Bedside Glucose 126 Medications Current Medications Bisacodyl (Dulcolax Supp) 10 mg Q48H [place] ; Start 03/11/17 at 23:30 Chlorhexidine Gluconate (Peridex) 15 ml BID MT Last administered on 03/18/17 08:55; Admin Dose 15 ML; Start 03/12/17 at 09:00 Epoetin Vasyl (Epogen (Non Esrd/Non Oncology)) 10,000 units MoWeFr@17 SC Last administered on 03/15/17 17:48; Admin Dose 10,000 UNITS; Start 03/13/17 at 17: 00 Heparin Sodium (Porcine) (Heparin (5000 Units/0.5 ml)) 5,000 unit BID SC Last administered on 03/13/17 21:06; Admin Dose 5,000 UNIT; Start 03/12/17 at 09:00 ; Status Future Hold Metoprolol Tartrate (Lopressor) 25 mg Q12H GTB Last administered on 03/12/17 12:05; Admin Dose 25 MG; Start 03/11/17 at 23:30; Status Future Hold Sodium Biphosphate/ Sodium Phosphate 118 ml 118 ml Q72H PRN [place] CONSTIPATION; Start 03/11/17 at 23:30 Norepinephrine 16 mg/Dextrose 500 ml @ 0 mls/hr TITRATE IV Last administered on 03/16/17 04:02; Admin Dose 2.94 MLS/HR; Start 03/13/17 at 10:00 Meropenem (Merrem 500 Mg/ 100 ml (Pmx)) 100 ml @ 200 mls/hr Q12 IVPB Last administered on 03/18/17 08:54; Admin Dose 200 MLS/HR; Start 03/13/17 at 21:00 Nystatin (Nystatin Powder) 1 applic BID TOP Last administered on 03/18/17 08: 55; Admin Dose 1 APPLIC; Start 03/13/17 at 15:00 Collagenase (Santyl) 1 applic DAILY TOP Last administered on 03/18/17 08:55; Admin Dose 1 APPLIC; Start 03/13/17 at 15:00 Insulin Aspart (Novolog Insulin Pen) NOVOLOG *MILD* ALGORI... Q6 SC Last administered on 03/17/17 23:59; Admin Dose 1 UNIT; Start 03/14/17 at 12:00 Miscellaneous Information 1 ea NOTE XX ; Start 03/14/17 at 07:30 Glucose (Glutose) 15 gm Q15M PRN PO DECREASED GLUCOSE; Start 03/14/17 at 07:30 Glucose (Glutose) 22.5 gm Q15M PRN PO DECREASED GLUCOSE; Start 03/14/17 at 07: 30 Dextrose (D50w Syringe) 25 ml Q15M PRN IV DECREASED GLUCOSE; Start 03/14/17 at 07:30 Dextrose (D50w Syringe) 50 ml Q15M PRN IV DECREASED GLUCOSE; Start 03/14/17 at 07:30 Glucagon (Glucagen) 1 mg Q15M PRN IM DECREASED GLUCOSE; Start 03/14/17 at 07:30 Glucose 15 gm 15 gm Q15M PRN BUCCAL DECREASED GLUCOSE; Start 03/14/17 at 07:30 Linezolid 300 ml @ 300 mls/hr Q12 IVPB Last administered on 03/18/17 08:55; Admin Dose 300 MLS/HR; Start 03/15/17 at 21:00 Fluconazole/ Sodium Chloride 50 ml @ 50 mls/hr Q24H IVPB Last administered on 23:56; Admin Dose 50 MLS/HR; Start 03/16/17 at 00:00 Phenylephrine HCl 40 mg/Dextrose 500 ml @ 75 mls/hr TITRATE IV ; Start at 15:30 Total Parenteral Nutrition 1,000 ml @ 50 mls/hr Q20H IV Last administered on 19:39; Admin Dose 50 MLS/HR; Start 03/17/17 at 18:00 Dextrose/Sodium Chloride (D5-1/2ns) 1,000 ml @ 50 mls/hr Q20H IV Last administered on 03/17/17 19:04; Admin Dose 50 MLS/HR; Start 03/17/17 at 18:00 Assessment/Plan Additional Assessment/Plan IMP: 1. Septic shock likely secondary to urinary tract infection cellulitis. 2. Vent dependent respiratory failure. 3. G-tube malfunction with abdominal wall cellulitis. 4. Urinary tract infection. Continue antibiotics per primary team. 5. Encephalopathy at baseline. 6. Dysphagia. 7. Hypernatremia 9. Anemia RECS: 1. Vent support 2. Levophed to MAP > 65 mm Hg 3. Abx per ID 4. Free H20/TNP 5. Palliative Care Consult 35 min cc time PINKY GHOSH MD March 18, 2017 10:08
--- NOTE | 2017-03-18 13:01 | CONS ---
Date/Time of Note Date/Time of Note DATE: 03/18/17 TIME: 12:58 Assessment/Plan Assessment/Plan Chief Complaint/Hosp Course IMPRESSION: 1. Malfunctioning gastrostomy tube. 2. Cellulitis as well as contact dermatitis around the G-tube site. 3. Vent-dependent respiratory failure. 4. Chronic kidney disease. 5. coffee ground in NGT with anemia, however h/h stable. 6. Parkinson disease. 7. Hypotension, probably related to sepsis. 8. renal failure, urine output improved 9. 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 Septic shock patient has MRSA bacteremia and UTI Plan 1. agree with surgical closure of the GT fistula tract if it cannot close spontaneously. 2. Continue antibiotic and pressor support 3. Once the condition is more stable and the old GT site closed, then we will make an attempt to close the G-tube site and put a new G-tube 4. OK to use NGT for meds 5. Continue vent support 6. If there is acute drop in h/h and continued coffee ground in NG, then will perform EGD for hemostasis with cardiac clearance. 7. Continue TPN for nutrition optimization and will help with GT fistula closure 8. Dr. Degroot to resume care of this patient tomorrow Problems: Consultation Date/Type/Reason Admit Date/Time March 11, 2017 at 22:57 Initial Consult Date 03/14/17 Type of Consultation: GI 24 HR Interval Summary Free Text/Dictation TPN started, no n/v, rectal tube in place Exam/Review of Systems Vital Signs Vitals Vital Signs Date Time Temp Pulse Resp B/P Pulse Ox O2 Delivery O2 Flow Rate FiO2 03/18/17 12:00 96.4 68 17 104/50 98 Mechanical Ventilator 03/18/17 11:15 30 Intake and Output 03/17/17 03/17/17 03/18/17 15:00 23:00 07:00 Intake Total 989.96 ml 414.96 ml 1154.65 ml Output Total 160 ml 168 ml 150 ml Balance 829.96 ml 246.96 ml 1004.65 ml Exam Constitutional: frail Psych: confusion Head: atraumatic, normocephalic Eyes: nl conjunctiva, nl lids, nl sclera ENMT: nl external ears & nose, nl lips & teeth, nl nasal mucosa & septum Neck: non-tender, supple Respiratory: clear to auscultation, normal air movement Cardiovascular: nl pulses, regular rate and rhythm Gastrointestinal: bowel sounds, other (GT site still with quarter sized opening ), soft Results Result Diagram: 03/18/17 0430 03/18/17 0430 Results 24 hrs Laboratory Tests Test 03/17/17 13:39 03/17/17 18:56 03/17/17 23:57 03/18/17 04:30 Bedside Glucose 97 78 141 White Blood Count 6.6 # Red Blood Count 2.76 L Hemoglobin 8.1 L Hematocrit 27.5 L Mean Corpuscular Volume 99.6 Mean Corpuscular Hemoglobin 29.3 Mean Corpuscular Hemoglobin Concent 29.5 L Red Cell Distribution Width 20.7 H Platelet Count 171 Mean Platelet Volume 10.0 Neutrophils % 75.3 Lymphocytes % 12.1 L Monocytes % 2.4 Eosinophils % 7.7 H Basophils % 0.2 Nucleated Red Blood Cells % 0.0 Neutrophils # 5.0 Lymphocytes # 0.8 Monocytes # 0.2 L Eosinophils # 0.5 Basophils # 0.0 Nucleated Red Blood Cells # 0.0 Sodium Level 148 H Potassium Level 3.7 Chloride Level 115 H Carbon Dioxide Level 25 Anion Gap 12 Blood Urea Nitrogen 61 H Creatinine 2.62 H Glucose Level 134 Calcium Level 7.9 L Phosphorus Level 4.2 Magnesium Level 1.9 Test 03/18/17 05:41 03/18/17 12:00 Bedside Glucose 126 157 Medications Medications Current Medications Bisacodyl (Dulcolax Supp) 10 mg Q48H [place] ; Start 03/11/17 at 23:30 Chlorhexidine Gluconate (Peridex) 15 ml BID MT Last administered on 03/18/17 08:55; Admin Dose 15 ML; Start 03/12/17 at 09:00 Epoetin Vasyl (Epogen (Non Esrd/Non Oncology)) 10,000 units MoWeFr@17 SC Last administered on 03/15/17 17:48; Admin Dose 10,000 UNITS; Start 03/13/17 at 17: 00 Heparin Sodium (Porcine) (Heparin (5000 Units/0.5 ml)) 5,000 unit BID SC Last administered on 03/13/17 21:06; Admin Dose 5,000 UNIT; Start 03/12/17 at 09:00 ; Status Future Hold Metoprolol Tartrate (Lopressor) 25 mg Q12H GTB Last administered on 03/12/17 12:05; Admin Dose 25 MG; Start 03/11/17 at 23:30; Status Future Hold Sodium Biphosphate/ Sodium Phosphate 118 ml 118 ml Q72H PRN [place] CONSTIPATION; Start 03/11/17 at 23:30 Norepinephrine 16 mg/Dextrose 500 ml @ 0 mls/hr TITRATE IV Last administered on 03/16/17 04:02; Admin Dose 2.94 MLS/HR; Start 03/13/17 at 10:00 Meropenem (Merrem 500 Mg/ 100 ml (Pmx)) 100 ml @ 200 mls/hr Q12 IVPB Last administered on 03/18/17 08:54; Admin Dose 200 MLS/HR; Start 03/13/17 at 21:00 Nystatin (Nystatin Powder) 1 applic BID TOP Last administered on 03/18/17 08: 55; Admin Dose 1 APPLIC; Start 03/13/17 at 15:00 Collagenase (Santyl) 1 applic DAILY TOP Last administered on 03/18/17 08:55; Admin Dose 1 APPLIC; Start 03/13/17 at 15:00 Insulin Aspart (Novolog Insulin Pen) NOVOLOG *MILD* ALGORI... Q6 SC Last administered on 03/18/17 12:03; Admin Dose 1 UNIT; Start 03/14/17 at 12:00 Miscellaneous Information 1 ea NOTE XX ; Start 03/14/17 at 07:30 Glucose (Glutose) 15 gm Q15M PRN PO DECREASED GLUCOSE; Start 03/14/17 at 07:30 Glucose (Glutose) 22.5 gm Q15M PRN PO DECREASED GLUCOSE; Start 03/14/17 at 07: 30 Dextrose (D50w Syringe) 25 ml Q15M PRN IV DECREASED GLUCOSE; Start 03/14/17 at 07:30 Dextrose (D50w Syringe) 50 ml Q15M PRN IV DECREASED GLUCOSE; Start 03/14/17 at 07:30 Glucagon (Glucagen) 1 mg Q15M PRN IM DECREASED GLUCOSE; Start 03/14/17 at 07:30 Glucose 15 gm 15 gm Q15M PRN BUCCAL DECREASED GLUCOSE; Start 03/14/17 at 07:30 Linezolid 300 ml @ 300 mls/hr Q12 IVPB Last administered on 03/18/17 08:55; Admin Dose 300 MLS/HR; Start 03/15/17 at 21:00 Fluconazole/ Sodium Chloride 50 ml @ 50 mls/hr Q24H IVPB Last administered on 23:56; Admin Dose 50 MLS/HR; Start 03/16/17 at 00:00 Phenylephrine HCl 40 mg/Dextrose 500 ml @ 75 mls/hr TITRATE IV ; Start at 15:30 Total Parenteral Nutrition 1,000 ml @ 50 mls/hr Q20H IV Last administered on 19:39; Admin Dose 50 MLS/HR; Start 03/17/17 at 18:00 Dextrose/Sodium Chloride (D5-1/2ns) 1,000 ml @ 50 mls/hr Q20H IV Last administered on 03/17/17 19:04; Admin Dose 50 MLS/HR; Start 03/17/17 at 18:00 ZAY BOYER MD March 18, 2017 13:01
[2017-03-18] MEDS: TPN 1,000 ML IV SCH (13:55)
[2017-03-18] MEDS: DEXTROSE 5%-0.45% NACL 1,000 ML IV SCH (15:19)
--- NOTE | 2017-03-18 17:28 | RADRPT ---
PROCEDURE: XR Chest. CLINICAL INDICATION: CHF TECHNIQUE: Single AP portable chest COMPARISON: 09/19/2013 Chest x-ray FINDINGS: The cardiac silhouette is at the upper limits of normal in size. Tracheostomy tube and NG tube in p lace. NG tube distal tip terminates at the level of the gastroesophageal junction with the side por t at the level of the distal third of the esophagus. Right IJ catheter tip overlying the mid superi or vena cava. Atherosclerotic calcification of the aorta. Bilateral small pleural effusion is marke dly decreased on the right compared to previous study. Persistent vascular congestion. No pneumotho rax. The osseous structures and soft tissues are unremarkable. IMPRESSION: 1. Improved CHF. No focal consolidation. 2. Support devices in satisfactory position. RPTAT:AAJJ Physician Kira Date Time Electronically viewed and signed by Physician Kira on 03/18/2017 17:27 KACI/
[2017-03-18] MEDS: EPOETIN 10000 UNITS/ML (NON ESRD/NON ONCOLOGY) SC SCH (17:37)
--- NOTE | 2017-03-18 23:40 | PN ---
Date/Time of Note Date/Time of Note DATE: 03/18/17 TIME: 23:40 Assessment/Plan Lines/Catheters IV Catheter Type (from [facility]): Central Line Collazo in Place (from [facility]): Yes Assessment/Plan Chief Complaint/Hosp Course 1. Large gastrocutaneous fistula with continued leakage. -local care -antibiotics. -supportive -eventual debridement and closure of this to allow healing prior to replacement of the feeding tube at a later time > will await medical optimization prior to considering surgical closure of the site 2. Abdominal wall cellulitis secondary to above. Continue antibiotics and local care. 3. Methicillin-resistant Staphylococcus aureus bacteremia. -antibiotics -line change -supportive care. 4. Pelvic deformity with fluid around the pelvic bone on CT scan. We will need to discuss with radiology for possible osteo. 5. Anemia without evidence of acute blood loss. Continue close monitoring and transfuse as needed. 6. Obesity with BMI of 31. Continue nutritional optimization when possible. 7. Sepsis secondary to above. Continue as above. 8. Ventilatory dependent respiratory failure. Continue pulmonary toilet and ventilator support. 9. Acute on chronic renal failure. Continue judicious fluid management and try to avoid nephrotoxic agents. 10. Coronary artery disease. Continue cardiac optimization. 11. Hypertension. Continue nutrition and medication control. 12. Advanced Parkinson's dementia with encephalopathy. Continue medical optimization. 13. Functional quadriplegia. Continue medical optimization, off loading, & nutritional optimization 14. Congestive heart failure. Continue judicious fluid management and cardiac optimization. Thank you Problems: Subjective 24 Hr Interval Summary Pressor. No f/c. No cough. No sz. Erythema persists. No vomiting. +Stool in rectal tube. Primary requested change of line Exam/Review of Systems Vital Signs Vitals Vital Signs Date Time Temp Pulse Resp B/P Pulse Ox O2 Delivery O2 Flow Rate FiO2 03/18/17 21:30 66 15 100 03/18/17 21:26 30 03/18/17 21:00 103/48 03/18/17 20:00 97.8 03/18/17 13:00 Mechanical Ventilator Intake and Output 03/17/17 03/17/17 03/18/17 15:00 23:00 07:00 Intake Total 989.96 ml 414.96 ml 1154.65 ml Output Total 160 ml 168 ml 150 ml Balance 829.96 ml 246.96 ml 1004.65 ml Exam Free Text/Dictation GENERAL: Obese, noncommunicative, ventilated. HEENT: Pupils are sluggish. No scleral icterus. Mucous membranes are moist. NECK: Trach in place, no crepitus, no edema. PULMONARY: Normal respiratory effort. No wheezing. CARDIAC: S1, S2 present. ABDOMEN: Soft, obese. Edema with blanching erythema, especially around the gastrocutaneous fistula, which is large denuded tissue. EXTREMITIES: With edema. VASCULAR: Capillary refill is 3 seconds. NEUROLOGIC: Does not follow commands. SKIN: Puffy rashes. No jaundice. Abdominal wound as above. Other wounds as per nursing notes. Results Result Diagram: 03/18/17 0430 03/18/17 0430 JOCELYN FINE MD March 18, 2017 23:40
[2017-03-19] VITALS (35 sets, daily range): BP systolic 81–111; BP diastolic 38–54; PULSE 65–85; RESP 13–28
[2017-03-19] MEDS: FLUCONAZOLE 100 MG/NS (PMX) 50 ML IVPB SCH (01:29)
[2017-03-19] MEDS: INSULIN ASPART [NOVOLOG] 3 ML PEN SC SCH ×4 (01:36→17:18)
[2017-03-19 05:01] LABS: ADD SCAN DIFF NO
[2017-03-19 05:06] LABS: ABNORMAL IP MESSAGE 1; BASOPHILS % 0.4 % (0.0-2.0); EOSINOPHILS # 0.5 10^3/ul (0.0-0.5); EOSINOPHILS % 9.2 % (0.0-7.0); HEMATOCRIT 27.7 % (37.0-47.0); HEMOGLOBIN 8.4 g/dl (12.0-16.0); LYMPHOCYTES # 0.8 10^3/ul (0.8-2.9); LYMPHOCYTES % 14.6 % (15.0-51.0); MEAN CORPUSCULAR HEMOGLOBIN 30.1 pg (29.0-33.0); MEAN CORPUSCULAR HGB CONC 30.3 g/dl (32.0-37.0); MEAN CORPUSCULAR VOLUME 99.3 fl (82.0-101.0); MEAN PLATELET VOLUME 10.2 fl (7.4-10.4); MONOCYTE # 0.2 10^3/ul (0.3-0.9); NEUTROPHIL # 3.8 10^3/ul (1.6-7.5); NEUTROPHILS % 66.3 % (39.0-77.0); PLATELET COUNT 158 10^3/UL (140-415); RED BLOOD COUNT 2.79 10^6/ul (4.20-5.40); RED CELL DISTRIBUTION WIDTH 19.5 % (11.5-14.5); WHITE BLOOD COUNT 5.7 10^3/ul (4.8-10.8)
[2017-03-19 05:20] LABS: AADO2 Arterial 75.6 mmHg (7.0-24.0); Allen Test ACCEPTAB; Arterial Base Excess 1.4 mmol/L (-3.0-3); Arterial COHb 0.3 % (0.0-3.0); Arterial Fraction of Oxyhgb 95.9 % (93.0-99.0); Arterial HCO3 25.7 mmol/L (22.0-26.0); Arterial MetHb 0.4 % (0.0-1.5); Arterial Total Hemglobin 9.8 g/dl (12.0-18.0); MODE VENT - AC
[2017-03-19 05:39] LABS: CALCIUM 7.9 mg/dl (8.4-10.2); CREATININE 2.44 mg/dl (0.44-1.00); MAGNESIUM 1.7 mg/dl (1.7-2.5); PHOSPHORUS 3.6 mg/dl (2.5-4.9); POTASSIUM 3.7 mmol/L (3.5-5.1)
[2017-03-19] MEDS ORDERED: FUROSEMIDE 40 MG INJ IV ONE (07:30)
--- NOTE | 2017-03-19 07:37 | PN ---
DATE: 03/18/2017 CARDIOLOGY FOLLOWUP SUBJECTIVE: Discussed with the staff. Rhythm strip reviewed. The patient remains in sinus rhythm. No evidence of atrial fibrillation, status post tracheostomy, is still on the vent, nonverbal. MEDICATIONS: Reviewed. PHYSICAL EXAMINATION: VITAL SIGNS: Temperature 98.64, heart rate of 68, blood pressure 104/50, respiratory rate of 17. HEENT: Normocephalic, atraumatic. Eyes are closed. NECK: Supple. Status post trach on the vent. CARDIOVASCULAR: Regular rate and rhythm, systolic murmur now. PULMONARY: With mild rhonchi, diffuse. GASTROINTESTINAL: Soft, nontender. EXTREMITIES: Positive lower extremities. NEUROLOGIC: Nonverbal. LABORATORY: WBC of 6.6, hemoglobin 8.1, platelets of 171. Sodium 148, potassium 3.7, BUN 61, creat inine 2.62, glucose 134. ASSESSMENT AND PLAN: 1. Septic shock. 2. Hypoxemic respiratory failure, status post tracheostomy, vent dependent. 3. G-tube malfunction, abdominal wall cellulitis. 4. Paroxysmal atrial fibrillation. 5. Bradycardia. 6. Cardiopulmonary arrest. 7. ____ shock. 8. Sepsis. 9. Electrolyte abnormality, hypernatremia. 10. Severe anemia, recurrent. 11. History of peripheral vascular disease. 12. Question of coronary artery disease. 13. Lactic acidosis. 14. Renal failure. 15. Staphylococcus aureus bacteremia. RECOMMENDATIONS: Antibiotic as per ID's recommendations. Blood culture has grown daylin at this p oint. Respiratory care will be continued. Vent support will be continued. Nutritional support kenan l be continued. Continue with the ICU care. Off of Levophed now will closely monitor. Dictated By: MILAGROS LEE/RAYSA Conf#: [id number] DID#: [id number] CC: OSMAR MONTAGUE DO;*EndCC*
--- NOTE | 2017-03-19 08:15 | PN ---
DATE: 03/19/2017 SUBJECTIVE: The patient remains critically ill, currently off pressor support for the last 24 hours . Blood pressures, however, remain low, urine output remains marginal. The patient is tolerating T PN. No other acute events noted. No hemoptysis, hematemesis, hematochezia. OBJECTIVE: VITAL SIGNS: Blood pressure is 100/64, respiratory rate 16, pulse 70, temperature 96.9. I'S AND O'S: The patient had 2.2 liters in, 1 liter out. HEENT: Head is normocephalic. NECK: Supple. HEART: Regular rate. LUNGS: Show diminished breath sounds at the base. ABDOMEN: Soft. EXTREMITIES: Positive stoma site noted with dressing clean, dry, intact. DERMATOLOGIC: No rashes. MUSCULOSKELETAL: No joint effusions. NEUROLOGIC: No change in exam. MEDICATIONS: Reviewed. LABORATORY DATA: Shows sodium 130, potassium 2.7, chloride 111, BUN 62, creatinine 2.44. IMAGING: The patient's chest x-ray shows improved CHF, no focal consolidation. Repeat cultures hav e been negative. ASSESSMENT AND PLAN: 1. Septic shock. Etiology secondary to healthcare-associated pneumonia, urinary tract infection, c ellulitis, anemia. The patient has remained off pressor support for 24 hours. At this point, chema nue broad-spectrum antibiotics, continue antifungal therapy. Repeat cultures have been reviewed. 2. Ventilator-dependent respiratory failure. Vent settings have been reviewed. ABG has been revie wed. Continue to monitor. 3. Nonoliguric acute kidney injury on top of chronic kidney disease stage IV. Etiology secondary t o acute tubular necrosis from sepsis, acute kidney injury. Renal function has slowly been improving . Continue current treatment plan, supportive care, renally dose all medications, avoid nephrotoxin s. 4. Hypernatremia, improved. Continue free water flushes. 5. Sinus arrhythmia with episodes of ventricular tachycardia. Currently stable. Continue to monit or. Follow up with cardiology. 6. Abdominal wall cellulitis with infected gastrocutaneous fistula with continued leak. The patien t was seen by general surgery and GI. At this point, the patient may require surgical closure when clinically stable. Will continue local wound care. Continue antibiotics. 7. Nutrition, dysphagia. The patient will continue TPN. 8. Acute encephalopathy, advanced ____ dementia. Etiology is toxic metabolic. Continue to monitor . 9. Mineral bone disorder. Continue to monitor calcium and phosphorus levels. 10. Anemia. Continue to monitor H and H levels. Continue Epogen. 11. Coronary artery disease. Continue treatment plan. 12. Diabetes, continue Accu-Cheks and insulin sliding scale. 13. Decubitus wound. Continue wound care. 14. Hypokalemia, improved. Continue to monitor. 15. Gastrointestinal and deep venous thrombosis prophylaxis. Continue PPI and sequential leg squee zers. Continue heparin. Please note I spent over 35 minutes of critical care time with this patient. Dictated By: OSMAR MONTAGUE DO NR/NTS Conf#: [id number] DID#: [id number]
[2017-03-19] MEDS: TPN 1,000 ML IV SCH (09:03)
[2017-03-19] MEDS: CHLORHEXIDINE GLUCONATE 15 ML UD CUP MT SCH ×2 (09:03→21:09)
[2017-03-19] MEDS: COLLAGENASE 30 GM TUBE TOP SCH (09:03)
[2017-03-19] MEDS: MEROPENEM 500 MG/100 ML (PMX) 100 ML IVPB SCH ×2 (09:03→22:18)
[2017-03-19] MEDS: LINEZOLID 600 MG/D5W (PMX) 300 ML IVPB SCH ×2 (09:03→21:09)
[2017-03-19] MEDS: NYSTATIN 30 GM POWDER BTL TOP SCH ×2 (09:03→21:09)
--- NOTE | 2017-03-19 11:39 | CONS ---
Date/Time of Note Date/Time of Note DATE: 03/19/17 TIME: 11:38 Consult Date/Type/Reason Admit Date/Time March 11, 2017 at 22:57 Type of Consultation: Pulmonary Subjective Patient condition remains unchanged. She is currently off vasopressors however remains somnolent on mechanical ventilation Diminished urine output blood pressure remains marginal. Objective Vital Signs Date Time Temp Pulse Resp B/P Pulse Ox O2 Delivery O2 Flow Rate FiO2 03/19/17 09:00 77 14 105/50 100 Mechanical Ventilator 03/19/17 08:00 30 03/19/17 08:00 97.8 Intake and Output 03/18/17 03/18/17 03/19/17 14:59 22:59 06:59 Intake Total 400 ml 1500 ml 400 ml Output Total 735 ml 320 ml Balance 400 ml 765 ml 80 ml Exam PHYSICAL EXAMINATION GENERAL: Elderly lady on mechanical ventilation via tracheostomy VITAL SIGNS: see below. HEENT: Pupils equal, round, and reactive to light. Tracheostomy site clean and intact. CARDIAC: S1, S2, 1/6 systolic ejection murmur CHEST: Diminished air entry bilaterally. ABDOMEN: Mildly distended. Bowel sounds present no guarding or rebound EXTREMITIES: No cyanosis, clubbing edema +1 NEUROLOGIC: Generalized weakness Results/Medications Result Diagram: 03/19/17 0425 03/19/17 0425 Results 24 hrs Laboratory Tests Test 03/18/17 12:00 03/18/17 17:39 03/19/17 01:34 03/19/17 04:25 Bedside Glucose 157 141 160 White Blood Count 5.7 Red Blood Count 2.79 L Hemoglobin 8.4 L Hematocrit 27.7 L Mean Corpuscular Volume 99.3 Mean Corpuscular Hemoglobin 30.1 Mean Corpuscular Hemoglobin Concent 30.3 L Red Cell Distribution Width 19.5 H Platelet Count 158 Mean Platelet Volume 10.2 Neutrophils % 66.3 Lymphocytes % 14.6 L Monocytes % 3.0 Eosinophils % 9.2 H Basophils % 0.4 Nucleated Red Blood Cells % 0.0 Neutrophils # 3.8 Lymphocytes # 0.8 Monocytes # 0.2 L Eosinophils # 0.5 Basophils # 0.0 Nucleated Red Blood Cells # 0.0 Sodium Level 140 Potassium Level 3.7 Chloride Level 111 H Carbon Dioxide Level 27 Anion Gap 6 L Blood Urea Nitrogen 62 H Creatinine 2.44 H Glucose Level 121 Lactic Acid Level 2.1 Calcium Level 7.9 L Phosphorus Level 3.6 Magnesium Level 1.7 Test 03/19/17 05:00 03/19/17 05:18 Blood Gas Specimen Source Blood arterial Arterial Blood Date Drawn 03/19/2017 4:55:55 AM Arterial Blood pH (Temp corrected) 7.437 Arterial Blood pCO2 (Temp correct) 38.9 Arterial Blood pO2 (Temp corrected) 92.6 H Arterial Blood HCO3 25.7 Arterial Blood Base Excess 1.4 Arterial Blood Oxygen Saturation 96.6 Faustino Test ACCEPTAB Arterial Blood Gas Puncture Site Left Radial Arterial Blood Carboxyhemoglobin 0.3 Arterial Blood Methemoglobin 0.4 Blood Gas A-a O2 Differential 75.6 H Oxyhemoglobin Percent 95.9 Total Hemoglobin 9.8 L Blood Gas Temperature 37.0 Blood Gas Respiration Rate 10.0 Blood Gas Actual Respiration Rate 16 Blood Gas Modality VENT - AC FiO2 30.0 Blood Gas Tidal Volume 420.0 Blood Gas Low PEEP Setting 5.0 Blood Gas Inspiratory Pressure 30.0 Blood Gas Notified Whom RTR Blood Gas Notified Time 03/19/2017 5:19:44 AM Bedside Glucose 141 Medications Current Medications Bisacodyl (Dulcolax Supp) [address] ; Start 03/11/17 at 23:30 Chlorhexidine Gluconate (Peridex) 15 ml BID MT Last administered on 03/19/17 09:03; Admin Dose 15 ML; Start 03/12/17 at 09:00 Epoetin Vasyl (Epogen (Non Esrd/Non Oncology)) 10,000 units MoWeFr@17 SC Last administered on 03/18/17 17:37; Admin Dose 10,000 UNITS; Start 03/13/17 at 17: 00 Heparin Sodium (Porcine) (Heparin (5000 Units/0.5 ml)) 5,000 unit BID SC Last administered on 03/13/17 21:06; Admin Dose 5,000 UNIT; Start 03/12/17 at 09:00 ; Status Future Hold Metoprolol Tartrate (Lopressor) 25 mg Q12H GTB Last administered on 03/12/17 12:05; Admin Dose 25 MG; Start 03/11/17 at 23:30; Status Future Hold Sodium Biphosphate/ Sodium Phosphate 118 ml [address] CONSTIPATION; Start 03/11/17 at 23:30 Norepinephrine 16 mg/Dextrose 500 ml @ 0 mls/hr TITRATE IV Last administered on 03/16/17 04:02; Admin Dose 2.94 MLS/HR; Start 03/13/17 at 10:00 Meropenem (Merrem 500 Mg/ 100 ml (Pmx)) 100 ml @ 200 mls/hr Q12 IVPB Last administered on 03/19/17 09:03; Admin Dose 200 MLS/HR; Start 03/13/17 at 21:00 Nystatin (Nystatin Powder) 1 applic BID TOP Last administered on 03/19/17 09: 03; Admin Dose 1 APPLIC; Start 03/13/17 at 15:00 Collagenase (Santyl) 1 applic DAILY TOP Last administered on 03/19/17 09:03; Admin Dose 1 APPLIC; Start 03/13/17 at 15:00 Insulin Aspart (Novolog Insulin Pen) NOVOLOG *MILD* ALGORI... Q6 SC Last administered on 03/19/17 01:36; Admin Dose 1 UNIT; Start 03/14/17 at 12:00 Miscellaneous Information 1 ea NOTE XX ; Start 03/14/17 at 07:30 Glucose (Glutose) 15 gm Q15M PRN PO DECREASED GLUCOSE; Start 03/14/17 at 07:30 Glucose (Glutose) 22.5 gm Q15M PRN PO DECREASED GLUCOSE; Start 03/14/17 at 07: 30 Dextrose (D50w Syringe) 25 ml Q15M PRN IV DECREASED GLUCOSE; Start 03/14/17 at 07:30 Dextrose (D50w Syringe) 50 ml Q15M PRN IV DECREASED GLUCOSE; Start 03/14/17 at 07:30 Glucagon (Glucagen) 1 mg Q15M PRN IM DECREASED GLUCOSE; Start 03/14/17 at 07:30 Glucose 15 gm 15 gm Q15M PRN BUCCAL DECREASED GLUCOSE; Start 03/14/17 at 07:30 Linezolid 300 ml @ 300 mls/hr Q12 IVPB Last administered on 03/19/17 09:03; Admin Dose 300 MLS/HR; Start 03/15/17 at 21:00 Fluconazole/ Sodium Chloride 50 ml @ 50 mls/hr Q24H IVPB Last administered on 01:29; Admin Dose 50 MLS/HR; Start 03/16/17 at 00:00 Phenylephrine HCl 40 mg/Dextrose 500 ml @ 75 mls/hr TITRATE IV ; Start at 15:30 Total Parenteral Nutrition (Tpn) 1,000 ml @ 50 mls/hr Q20H IV Last administered on 03/19/17 09:03; Admin Dose 50 MLS/HR; Start 03/17/17 at 18:00 Assessment/Plan Chief Complaint/Hosp Course Additional Assessment/Plan IMP: 1. Septic shock likely secondary to urinary tract infection cellulitis. Now off vasopressors 2. Vent dependent respiratory failure. 3. G-tube malfunction with abdominal wall cellulitis. 4. Urinary tract infection. Continue antibiotics per primary team. 5. Encephalopathy at baseline. 6. Dysphagia. 7. Hypernatremia 9. Anemia RECS: 1. Vent support 2. Levophed to MAP > 65 mm Hg 3. Abx per ID 4. Free H20/TNP 5. Palliative Care Consult 35 min cc time Problems: JARED CLAIRE [facility], [facility] March 19, 2017 11:39
[2017-03-19] MEDS ORDERED: GENTAMICIN IV PER PHARMACY XX SCH (13:00)
--- NOTE | 2017-03-19 13:17 | PN ---
DATE: 03/19/2017 SUBJECTIVE: No acute changes. The patient remains on vent. She is hypothermic and currently on Ba ir Hugger. LABORATORIES: WBC today 5.7, hemoglobin and hematocrit 8.4 and 27.7, platelets 158. BUN 62, creati nine 2.44. INDWELLINGS: The patient has right IJ triple lumen catheter, trach, NG tube, Collazo catheter. MICROBIOLOGY: Blood culture on admission grew MRSA. Repeat blood culture growing enterococcus spec ies and Gillian albicans. Stool for C. diff came back negative. Urine culture grew Klebsiella, ESB L pseudomonas, Proteus and Providencia. DIAGNOSTICS: Chest x-ray yesterday revealed CHF, improved. ANTIMICROBIALS: 1. Fluconazole. 2. Zyvox. 3. Merrem. PHYSICAL EXAMINATION: GENERAL: This is a well-developed, chronically ill-appearing, fragile, elderly woman who is in no d istress. HEENT: Head atraumatic, normocephalic. Sclerae anicteric. Buccal mucosa dry. NECK: Supple. Tracheostomy present. CHEST: Rise symmetrical. Breath sounds diminished to bases. HEART: S1, S2. ABDOMEN: Soft, bowel tones present. EXTREMITIES: Without cyanosis. Bilateral trace edema. ASSESSMENT: 1. Severe sepsis with shock, hypothermia. 2. Polymicrobial bacteremia. 3. A G-tube malfunction with cellulitis, status post G-tube discontinued. 4. Polymicrobial urinary tract infection. 5. Chronic encephalopathy. 6. Healthcare-associated pneumonia. 7. Diabetes. 8. Acute kidney injury. PLAN: Continue on current antimicrobials. Add tobramycin for pseudomonal coverage that she is grow ing in her urine. Follow repeat blood cultures, continue TPN. Vent support per pulmonary. Overall prognosis guarded. Dictated By: DOROTHY CORONADO EXPERIENCE PLANNING STRATEGIST for [facility] BOSTON/RAYSA Conf#: [id number] DID#: [id number]
[2017-03-19] MEDS ORDERED: GENTAMICIN 120 MG/NS (PMX) 100 ML IVPB SCH (14:30)
--- NOTE | 2017-03-19 21:09 | PN ---
DATE: 03/19/2017 CARDIOLOGY FOLLOWUP SUBJECTIVE: Discussed with the staff. Rhythm strip was reviewed. ____. The patient remains in si nus rhythm, has frequent PACs, but more atrial fibrillation. The patient is nonverbal, status post trach on the vent. MEDICATIONS: Reviewed. PHYSICAL EXAMINATION: VITAL SIGNS: Temperature 97.8, heart rate of 83, blood pressure 105/50, respiratory rate of 16, sat urating 100%. HEENT: Normocephalic, atraumatic. NECK: Status post tracheostomy, on the vent. CARDIOVASCULAR: Regular rate and rhythm. PULMONARY: Anteriorly with mild rhonchi with no wheezes. GASTROINTESTINAL: Soft, nontender. EXTREMITIES: Positive lower extremity edema. NEUROLOGIC: Not answering questions. LABORATORY: WBC of 5.7, hemoglobin 8.4, platelets of 158. Sodium 140, potassium 3.7, BUN of 62, cr eatinine 2.4, glucose of 121. ASSESSMENT AND PLAN: 1. Status post cardiopulmonary arrest. 2. Septic shock. 3. Status post hypercapnic respiratory failure, status post tracheostomy, on the vent. 4. Status post G-tube malfunction. 5. History of paroxysmal atrial fibrillation as well as bradycardia. 6. Anemia. 7. Chronic obstructive pulmonary disease. 8. ____ coronary artery disease. 9. Lactic acidosis. 10. Renal failure. 11. Gillian albicans, ____ Enterococcus bacteremia as well as reportedly on the Staph aureus, methicillin-resistant Staphylococcus aureus bacteremia. RECOMMENDATIONS: The patient has multiple infections. Antibiotic will be managed as per ID recomme ndation. Continue with the respiratory care. Monitor on telemetry. Correct electrolytes as needed . Vent support will be continued. ____ will be continued. Supportive care for her renal dysfuncti on will be continued. Will monitor on telemetry closely. Dictated By: MILAGROS MUNOZ MD AV/RAYSA Conf#: [id number] DID#: [id number] CC: OSMAR MONTAGUE DO;*EndCC*
--- NOTE | 2017-03-19 21:09 | CONS ---
Date/Time of Note Date/Time of Note DATE: 03/19/17 TIME: 21:08 Assessment/Plan Assessment/Plan Additional Assessment/Plan Assessment/Plan Chief Complaint/Hosp Course IMPRESSION: 1. Malfunctioning gastrostomy tube. 2. Cellulitis as well as contact dermatitis around the G-tube site. 3. Vent-dependent respiratory failure. 4. Chronic kidney disease. 5. coffee ground in NGT with anemia, however h/h stable. 6. Parkinson disease. 7. Hypotension, probably related to sepsis. 8. renal failure, urine output improved 9. 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 Septic shock patient has MRSA bacteremia and UTI Plan 1. agree with surgical closure of the GT fistula tract if it cannot close spontaneously. 2. Continue antibiotic and pressor support 3. Once the condition is more stable and the old GT site closed, then we will make an attempt to close the G-tube site and put a new G-tube 4. OK to use NGT for meds 5. Continue vent support 6. If there is acute drop in h/h and continued coffee ground in NG, then will perform EGD for hemostasis with cardiac clearance. 7. Continue TPN for nutrition optimization and will help with GT fistula closure Consultation Date/Type/Reason Admit Date/Time March 11, 2017 at 22:57 Type of Consultation: Pulmonary 24 HR Interval Summary Subjective hx not possible: pt non-verbal, pt critical Exam/Review of Systems Vital Signs Vitals Vital Signs Date Time Temp Pulse Resp B/P Pulse Ox O2 Delivery O2 Flow Rate FiO2 03/19/17 19:25 76 14 100 30 03/19/17 18:00 81/41 Mechanical Ventilator 03/19/17 16:00 97.3 Intake and Output 03/18/17 03/18/17 03/19/17 15:00 23:00 07:00 Intake Total 400 ml 1600 ml 300 ml Output Total 735 ml 320 ml Balance 400 ml 865 ml -20 ml Exam Constitutional: alert, oriented, well developed Psych: nl mood/affect, no complaints Head: atraumatic, normocephalic Eyes: EOMI, PERRL, nl conjunctiva, nl lids, nl sclera ENMT: nl external ears & nose, nl lips & teeth, nl nasal mucosa & septum Neck: non-tender, supple Respiratory: clear to auscultation, normal air movement Cardiovascular: nl pulses, regular rate and rhythm Gastrointestinal: nl liver, spleen, non-tender, soft Musculoskeletal: nl extremities to inspection, nl gait and stance Extremities: normal pulses Neurological: MANAGER PSYCHOLOGY II-XII intact, nl mental status, nl speech, nl strength Skin: nl turgor, No rash or lesions Lymph: nl lymph nodes Results Result Diagram: 03/19/17 0425 03/19/17 0425 Results 24 hrs Laboratory Tests Test 03/19/17 01:34 03/19/17 04:25 03/19/17 05:00 03/19/17 05:18 Bedside Glucose 160 141 White Blood Count 5.7 Red Blood Count 2.79 L Hemoglobin 8.4 L Hematocrit 27.7 L Mean Corpuscular Volume 99.3 Mean Corpuscular Hemoglobin 30.1 Mean Corpuscular Hemoglobin Concent 30.3 L Red Cell Distribution Width 19.5 H Platelet Count 158 Mean Platelet Volume 10.2 Neutrophils % 66.3 Lymphocytes % 14.6 L Monocytes % 3.0 Eosinophils % 9.2 H Basophils % 0.4 Nucleated Red Blood Cells % 0.0 Neutrophils # 3.8 Lymphocytes # 0.8 Monocytes # 0.2 L Eosinophils # 0.5 Basophils # 0.0 Nucleated Red Blood Cells # 0.0 Sodium Level 140 Potassium Level 3.7 Chloride Level 111 H Carbon Dioxide Level 27 Anion Gap 6 L Blood Urea Nitrogen 62 H Creatinine 2.44 H Glucose Level 121 Lactic Acid Level 2.1 Calcium Level 7.9 L Phosphorus Level 3.6 Magnesium Level 1.7 Blood Gas Specimen Source Blood arterial Arterial Blood Date Drawn 03/19/2017 4:55:55 AM Arterial Blood pH (Temp corrected) 7.437 Arterial Blood pCO2 (Temp correct) 38.9 Arterial Blood pO2 (Temp corrected) 92.6 H Arterial Blood HCO3 25.7 Arterial Blood Base Excess 1.4 Arterial Blood Oxygen Saturation 96.6 Faustino Test ACCEPTAB Arterial Blood Gas Puncture Site Left Radial Arterial Blood Carboxyhemoglobin 0.3 Arterial Blood Methemoglobin 0.4 Blood Gas A-a O2 Differential 75.6 H Oxyhemoglobin Percent 95.9 Total Hemoglobin 9.8 L Blood Gas Temperature 37.0 Blood Gas Respiration Rate 10.0 Blood Gas Actual Respiration Rate 16 Blood Gas Modality VENT - AC FiO2 30.0 Blood Gas Tidal Volume 420.0 Blood Gas Low PEEP Setting 5.0 Blood Gas Inspiratory Pressure 30.0 Blood Gas Notified Whom RTR Blood Gas Notified Time 03/19/2017 5:19:44 AM Test 03/19/17 11:40 03/19/17 17:10 Bedside Glucose 151 129 Medications Medications Current Medications Bisacodyl (Dulcolax Supp) 10 mg Q48H [place] ; Start 03/11/17 at 23:30 Chlorhexidine Gluconate (Peridex) 15 ml BID MT Last administered on 03/19/17 09:03; Admin Dose 15 ML; Start 03/12/17 at 09:00 Epoetin Vasyl (Epogen (Non Esrd/Non Oncology)) 10,000 units MoWeFr@17 SC Last administered on 03/18/17 17:37; Admin Dose 10,000 UNITS; Start 03/13/17 at 17: 00 Heparin Sodium (Porcine) (Heparin (5000 Units/0.5 ml)) 5,000 unit BID SC Last administered on 03/13/17 21:06; Admin Dose 5,000 UNIT; Start 03/12/17 at 09:00 ; Status Future Hold Metoprolol Tartrate (Lopressor) 25 mg Q12H GTB Last administered on 03/12/17 12:05; Admin Dose 25 MG; Start 03/11/17 at 23:30; Status Future Hold Sodium Biphosphate/ Sodium Phosphate 118 ml 118 ml Q72H PRN [place] CONSTIPATION; Start 03/11/17 at 23:30 Norepinephrine 16 mg/Dextrose 500 ml @ 0 mls/hr TITRATE IV Last administered on 03/16/17 04:02; Admin Dose 2.94 MLS/HR; Start 03/13/17 at 10:00 Meropenem (Merrem 500 Mg/ 100 ml (Pmx)) 100 ml @ 200 mls/hr Q12 IVPB Last administered on 03/19/17 09:03; Admin Dose 200 MLS/HR; Start 03/13/17 at 21:00 Nystatin (Nystatin Powder) 1 applic BID TOP Last administered on 03/19/17 09: 03; Admin Dose 1 APPLIC; Start 03/13/17 at 15:00 Collagenase (Santyl) 1 applic DAILY TOP Last administered on 03/19/17 09:03; Admin Dose 1 APPLIC; Start 03/13/17 at 15:00 Insulin Aspart (Novolog Insulin Pen) NOVOLOG *MILD* ALGORI... Q6 SC Last administered on 03/19/17 12:00; Admin Dose 1 UNIT; Start 03/14/17 at 12:00 Miscellaneous Information 1 ea NOTE XX ; Start 03/14/17 at 07:30 Glucose (Glutose) 15 gm Q15M PRN PO DECREASED GLUCOSE; Start 03/14/17 at 07:30 Glucose (Glutose) 22.5 gm Q15M PRN PO DECREASED GLUCOSE; Start 03/14/17 at 07: 30 Dextrose (D50w Syringe) 25 ml Q15M PRN IV DECREASED GLUCOSE; Start 03/14/17 at 07:30 Dextrose (D50w Syringe) 50 ml Q15M PRN IV DECREASED GLUCOSE; Start 03/14/17 at 07:30 Glucagon (Glucagen) 1 mg Q15M PRN IM DECREASED GLUCOSE; Start 03/14/17 at 07:30 Glucose 15 gm 15 gm Q15M PRN BUCCAL DECREASED GLUCOSE; Start 03/14/17 at 07:30 Linezolid 300 ml @ 300 mls/hr Q12 IVPB Last administered on 03/19/17 09:03; Admin Dose 300 MLS/HR; Start 03/15/17 at 21:00 Fluconazole/ Sodium Chloride 50 ml @ 50 mls/hr Q24H IVPB Last administered on 01:29; Admin Dose 50 MLS/HR; Start 03/16/17 at 00:00 Phenylephrine HCl 40 mg/Dextrose 500 ml @ 75 mls/hr TITRATE IV ; Start at 15:30 Total Parenteral Nutrition (Tpn) 1,000 ml @ 50 mls/hr Q20H IV Last administered on 03/19/17 09:03; Admin Dose 50 MLS/HR; Start 03/17/17 at 18:00 Gentamicin Sulfate (Gentamicin Iv Per Pharmacy) GENTAMICIN PER PHARMACY NOTE XX ; Start 03/19/17 at 13:00 SYLWIA SY MD March 19, 2017 21:08
[2017-03-19] MEDS: BISACODYL 10 MG SUPP PR SCH (23:30)
[2017-03-20] VITALS (36 sets, daily range): BP systolic 95–156; BP diastolic 43–73; PULSE 69–82; RESP 10–17
[2017-03-20] MEDS: FLUCONAZOLE 100 MG/NS (PMX) 50 ML IVPB SCH (00:20)
[2017-03-20] MEDS: INSULIN ASPART [NOVOLOG] 3 ML PEN SC SCH ×4 (06:00→18:00)
[2017-03-20] MEDS: TPN 1,000 ML IV SCH (06:08)
[2017-03-20 06:12] LABS: ADD SCAN DIFF NO
[2017-03-20 06:14] LABS: BASOPHILS % 0.3 % (0.0-2.0); EOSINOPHILS # 0.4 10^3/ul (0.0-0.5); EOSINOPHILS % 5.7 % (0.0-7.0); HEMATOCRIT 26.3 % (37.0-47.0); LYMPHOCYTES # 0.9 10^3/ul (0.8-2.9); LYMPHOCYTES % 13.6 % (15.0-51.0); MEAN CORPUSCULAR HEMOGLOBIN 30.1 pg (29.0-33.0); MEAN CORPUSCULAR HGB CONC 30.4 g/dl (32.0-37.0); MEAN CORPUSCULAR VOLUME 98.9 fl (82.0-101.0); MEAN PLATELET VOLUME 10.1 fl (7.4-10.4); MONOCYTE # 0.3 10^3/ul (0.3-0.9); MONOCYTES % 4.1 % (0.0-11.0); NEUTROPHIL # 4.7 10^3/ul (1.6-7.5); NEUTROPHILS % 71.6 % (39.0-77.0); PLATELET COUNT 160 10^3/UL (140-415); RED BLOOD COUNT 2.66 10^6/ul (4.20-5.40); RED CELL DISTRIBUTION WIDTH 18.7 % (11.5-14.5); WHITE BLOOD COUNT 6.5 10^3/ul (4.8-10.8)
[2017-03-20 06:37] LABS: CALCIUM 7.8 mg/dl (8.4-10.2); CREATININE 2.4 mg/dl (0.44-1.00); MAGNESIUM 1.5 mg/dl (1.7-2.5); PHOSPHORUS 3.2 mg/dl (2.5-4.9); POTASSIUM 3.7 mmol/L (3.5-5.1)
[2017-03-20] MEDS ORDERED: MAGNESIUM SULFATE 2 GM/50 ML 50 ML IVPB ONE ×2 (08:00)
--- NOTE | 2017-03-20 08:35 | PN ---
DATE: 03/20/2017 CARDIOLOGY FOLLOWUP SUBJECTIVE: The patient remains in sinus rhythm without evidence of atrial fibrillation or bradycar oziel, heart rate remains stable overall. The patient remains nonverbal status post trach on the vent . MEDICATIONS: Reviewed as per medication reconciliation, was personally reviewed. PHYSICAL EXAMINATION: VITAL SIGNS: Temperature 98.2, heart rate of 76, blood pressure 111/52, respiratory rate of 12, sat urating 98%. HEENT: Normocephalic, atraumatic. Eyes are closed. NECK: Status post trach on the vent. CARDIOVASCULAR: Regular rate and rhythm, systolic murmur. PULMONARY: With mild rhonchi, diffuse. GASTROINTESTINAL: Soft, nontender. No rebound or guarding. EXTREMITIES: Diffuse lower extremity edema. NEUROLOGIC: Nonresponsive. LABORATORY: WBC of 6.5, hemoglobin 8, platelets of 160. Sodium 138, potassium 3.7, BUN of 60, crea tinine 2.4, glucose of 109, magnesium is 1.5. ASSESSMENT AND PLAN: 1. Status post cardiopulmonary arrest. 2. Septic shock. 3. Hypoxemia and hypercapnic respiratory failure, status post tracheostomy, vent dependent. 4. Status post G-tube malfunction and infection. 5. Paroxysmal atrial fibrillation and episode of marked bradycardia. 6. Anemia. 7. Chronic obstructive pulmonary disease. 8. Possible history of coronary artery disease. 9. Status post lactic acidosis. 10. Renal failure. 11. Gillian albicans fungemia as well as Enterococcus bacteremia and Staphylococcus aureus bacterem ia. RECOMMENDATIONS: We will continue with the vent support. Antibiotic is managed as per ID for multi ple different infections. Respiratory care will be continued. Monitor on telemetry. Electrolytes will be corrected as needed. Continue with the ICU care. Nutritional support. Dictated By: MILAGROS MUNOZ MD [facility]/RAYSA Conf#: [id number] DID#: [id number] CC: OSMAR MONTAGUE DO;*EndCC*
[2017-03-20] MEDS: COLLAGENASE 30 GM TUBE TOP SCH (08:44)
[2017-03-20] MEDS: LINEZOLID 600 MG/D5W (PMX) 300 ML IVPB SCH ×2 (08:44→20:49)
[2017-03-20] MEDS: NYSTATIN 30 GM POWDER BTL TOP SCH ×2 (08:44→20:49)
[2017-03-20] MEDS: CHLORHEXIDINE GLUCONATE 15 ML UD CUP MT SCH ×2 (08:44→20:49)
--- NOTE | 2017-03-20 09:57 | CONS ---
Date/Time of Note Date/Time of Note DATE: 03/20/17 TIME: 09:56 Consult Date/Type/Reason Admit Date/Time March 11, 2017 at 22:57 Type of Consultation: Pulmonary Subjective Patient remains unresponsive on mechanical ventilation Continues nasogastric tube feeding Objective Vital Signs Date Time Temp Pulse Resp B/P Pulse Ox O2 Delivery O2 Flow Rate FiO2 03/20/17 08:00 30 03/20/17 07:00 76 12 111/52 98 Mechanical Ventilator 03/20/17 04:00 98.2 Intake and Output 03/19/17 03/19/17 03/20/17 15:00 23:00 07:00 Intake Total 900 ml 900 ml 150 ml Output Total 600 ml 420 ml 435 ml Balance 300 ml 480 ml -285 ml Exam PHYSICAL EXAMINATION GENERAL: Elderly lady on mechanical ventilation via tracheostomy VITAL SIGNS: see below. HEENT: Pupils equal, round, and reactive to light. Tracheostomy site clean and intact. CARDIAC: S1, S2, 1/6 systolic ejection murmur CHEST: Diminished air entry bilaterally. ABDOMEN: Mildly distended. Bowel sounds present no guarding or rebound EXTREMITIES: No cyanosis, clubbing edema +1 NEUROLOGIC: Generalized weakness Results/Medications Result Diagram: 03/20/17 0430 03/20/17 0430 Results 24 hrs Laboratory Tests Test 03/19/17 11:40 03/19/17 17:10 03/20/17 00:18 03/20/17 04:30 Bedside Glucose 151 129 135 White Blood Count 6.5 Red Blood Count 2.66 L Hemoglobin 8.0 L Hematocrit 26.3 L Mean Corpuscular Volume 98.9 Mean Corpuscular Hemoglobin 30.1 Mean Corpuscular Hemoglobin Concent 30.4 L Red Cell Distribution Width 18.7 H Platelet Count 160 Mean Platelet Volume 10.1 Neutrophils % 71.6 Lymphocytes % 13.6 L Monocytes % 4.1 Eosinophils % 5.7 Basophils % 0.3 Nucleated Red Blood Cells % 0.0 Neutrophils # 4.7 Lymphocytes # 0.9 Monocytes # 0.3 Eosinophils # 0.4 Basophils # 0.0 Nucleated Red Blood Cells # 0.0 Sodium Level 138 Potassium Level 3.7 Chloride Level 109 Carbon Dioxide Level 28 Anion Gap 5 L Blood Urea Nitrogen 60 H Creatinine 2.40 H Glucose Level 109 Calcium Level 7.8 L Phosphorus Level 3.2 Magnesium Level 1.5 L Test 03/20/17 06:13 Bedside Glucose 121 Medications Current Medications Bisacodyl (Dulcolax Supp) [address] ; Start 03/11/17 at 23:30 Chlorhexidine Gluconate (Peridex) 15 ml BID MT Last administered on 03/20/17 08:44; Admin Dose 15 ML; Start 03/12/17 at 09:00 Epoetin Vasyl (Epogen (Non Esrd/Non Oncology)) 10,000 units MoWeFr@17 SC Last administered on 03/18/17 17:37; Admin Dose 10,000 UNITS; Start 03/13/17 at 17: 00 Heparin Sodium (Porcine) (Heparin (5000 Units/0.5 ml)) 5,000 unit BID SC Last administered on 03/13/17 21:06; Admin Dose 5,000 UNIT; Start 03/12/17 at 09:00 ; Status Future Hold Metoprolol Tartrate (Lopressor) 25 mg Q12H GTB Last administered on 03/12/17 12:05; Admin Dose 25 MG; Start 03/11/17 at 23:30; Status Future Hold Sodium Biphosphate/ Sodium Phosphate 118 ml [address] CONSTIPATION; Start 03/11/17 at 23:30 Norepinephrine 16 mg/Dextrose 500 ml @ 0 mls/hr TITRATE IV Last administered on 03/16/17 04:02; Admin Dose 2.94 MLS/HR; Start 03/13/17 at 10:00 Meropenem (Merrem 500 Mg/ 100 ml (Pmx)) 100 ml @ 200 mls/hr Q12 IVPB Last administered on 03/19/17 22:18; Admin Dose 200 MLS/HR; Start 03/13/17 at 21:00 Nystatin (Nystatin Powder) 1 applic BID TOP Last administered on 03/20/17 08: 44; Admin Dose 1 APPLIC; Start 03/13/17 at 15:00 Collagenase (Santyl) 1 applic DAILY TOP Last administered on 03/20/17 08:44; Admin Dose 1 APPLIC; Start 03/13/17 at 15:00 Insulin Aspart (Novolog Insulin Pen) NOVOLOG *MILD* ALGORI... Q6 SC Last administered on 03/19/17 12:00; Admin Dose 1 UNIT; Start 03/14/17 at 12:00 Miscellaneous Information 1 ea NOTE XX ; Start 03/14/17 at 07:30 Glucose (Glutose) 15 gm Q15M PRN PO DECREASED GLUCOSE; Start 03/14/17 at 07:30 Glucose (Glutose) 22.5 gm Q15M PRN PO DECREASED GLUCOSE; Start 03/14/17 at 07: 30 Dextrose (D50w Syringe) 25 ml Q15M PRN IV DECREASED GLUCOSE; Start 03/14/17 at 07:30 Dextrose (D50w Syringe) 50 ml Q15M PRN IV DECREASED GLUCOSE; Start 03/14/17 at 07:30 Glucagon (Glucagen) 1 mg Q15M PRN IM DECREASED GLUCOSE; Start 03/14/17 at 07:30 Glucose 15 gm 15 gm Q15M PRN BUCCAL DECREASED GLUCOSE; Start 03/14/17 at 07:30 Linezolid 300 ml @ 300 mls/hr Q12 IVPB Last administered on 03/20/17 08:44; Admin Dose 300 MLS/HR; Start 03/15/17 at 21:00 Fluconazole/ Sodium Chloride 50 ml @ 50 mls/hr Q24H IVPB Last administered on 00:20; Admin Dose 50 MLS/HR; Start 03/16/17 at 00:00 Phenylephrine HCl 40 mg/Dextrose 500 ml @ 75 mls/hr TITRATE IV ; Start at 15:30 Total Parenteral Nutrition (Tpn) 1,000 ml @ 50 mls/hr Q20H IV Last administered on 03/20/17 06:08; Admin Dose 50 MLS/HR; Start 03/17/17 at 18:00 Gentamicin Sulfate GENTAMICIN PER PHARMACY NOTE XX ; Start 03/19/17 at 13:00 Magnesium Sulfate 50 ml @ 25 mls/hr ONCE ONCE IVPB Last administered on 08:44; Admin Dose 25 MLS/HR; Start 03/20/17 at 08:00; Stop 03/20/17 at 09: 59 Magnesium Sulfate (Magnesium Sulfate 2 Gm/50 ml) 50 ml @ 25 mls/hr ONCE ONCE IVPB ; Start 03/20/17 at 08:00; Stop 03/20/17 at 09:59 Assessment/Plan Chief Complaint/Hosp Course Additional Assessment/Plan IMP: 1. Septic shock likely secondary to urinary tract infection cellulitis. Now off vasopressors 2. Vent dependent respiratory failure. 3. G-tube malfunction with abdominal wall cellulitis. 4. Urinary tract infection. Continue antibiotics per primary team. 5. Encephalopathy at baseline. 6. Dysphagia. 7. Hypernatremia 9. Anemia RECS: 1. Vent support 2. Levophed to MAP > 65 mm Hg as needed 3. Abx per ID de-escalate 4. Free H20/TNP 5. Palliative Care Consult, primary care team discussed with family wish to continue all aggressive measures Transfer to telemetry okay from pulmonary standpoint 35 min cc time Problems: JARED CLAIRE MD, [facility] March 20, 2017 09:57
--- NOTE | 2017-03-20 10:19 | PN ---
DATE: 03/20/2017 SUBJECTIVE: The patient remains critical but stable, no other events noted. No hemoptysis, hematem esis or hematochezia. OBJECTIVE: VITAL SIGNS: Blood pressure 111/52, respirations 12, pulse 76, temperature 98.2. HEENT: Head is normocephalic. NECK: Supple. HEART: Regular rate. LUNGS: Show diminished breath sounds at the bases. ABDOMEN: Soft, nontender to palpation. Positive dressing over ostomy site. EXTREMITIES: Negative for clubbing, cyanosis. Trace edema. DERMATOLOGIC: No rashes. MUSCULOSKELETAL: No joint effusions. NEUROLOGIC: No change in exam. MEDICATIONS: The patient's medications have been reviewed. LABORATORY DATA: Shows a white count 6.5, hemoglobin 8.0, hematocrit 26.3, platelet count is 160. Sodium 138, potassium 3.7, chloride 109, BUN 60, creatinine 2.40. Magnesium is 1.5. ASSESSMENT AND PLAN: 1. Sepsis, status post shock. Etiology is secondary to pneumonia, urinary tract infection, celluli tis. The patient currently remains off pressors. Continue broad-spectrum antibiotics. Continue an tifungal therapy. Repeat cultures have been reviewed. 2. Ventilator-dependent respiratory failure. Vent settings have been reviewed. ABG has been revie wed. Continue to monitor. 3. Nonoliguric acute kidney injury on top of chronic kidney disease stage IV. Etiology secondary t o acute tubular necrosis and septic acute kidney injury. Renal function has been stabilized and slo wly improving. Continue current treatment plan. Renally dose all meds, avoid nephrotoxins. 4. Hypernatremia, improved. Continue to monitor. 5. Hypomagnesemia. We will replete magnesium sulfate. 6. Abdominal wall cellulitis with gastrocutaneous fistula. The patient has been seen by general elias RADHA yost. At this point, plan for surgical closure once clinically stable. Continue local wound c are. 7. Nutrition, dysphagia. The patient is currently on TPN. We will continue. 8. Acute encephalopathy with advanced dementia. Etiology is toxic metabolic. Continue to monitor. 9. Mineral bone disorder. Continue to monitor calcium and phosphorus levels. 10. Anemia. Continue to monitor hemoglobin and hematocrit levels. We will give Epogen. 11. Coronary artery disease. Continue current treatment plan. 12. Diabetes. Continue Accu-Cheks and insulin sliding scale. 13. Decubitus wound. Continue wound care. 14. Gastrointestinal and deep venous thrombosis prophylaxis. Continue proton pump inhibitor, seque ntial leg squeezers and heparin. Please note I spent over 35 minutes of critical care time with this patient. Dictated By: OSMAR HERNANDEZ/RAYSA Conf#: [id number] DID#: [id number]
[2017-03-20] MEDS: MEROPENEM 500 MG/100 ML (PMX) 100 ML IVPB SCH ×2 (10:26→20:49)
--- NOTE | 2017-03-20 14:31 | PN ---
DATE: 03/20/2017 SUBJECTIVE: No acute changes. The patient remains hypothermic on Dejuan Hugger. She is in no distress. LABORATORY DATA: WBC today 6.5, platelets 160, no shift, no bands. BUN 60, creatinine 2.40. MICROBIOLOGY: Blood culture on admission grew MRSA. Repeat blood culture grew Gillian albicans and enterococcus species. Urine culture grew Providencia , Proteus, Pseudomonas and Klebsiella extended-spectrum beta-lactamase. INDWELLINGS: Trach, NG tube, Collazo catheter, right IJ triple-lumen catheter. ANTIMICROBIALS: 1. Fluconazole. 2. Zyvox. 3. Gentamicin. 4. Meropenem. PHYSICAL EXAMINATION: GENERAL: This is a chronically ill-appearing, elderly woman who is nonverbal, noncommunicative, lying comfortably in bed. HEENT: Head atraumatic, normocephalic. Sclerae anicteric. Buccal mucosa dry. NECK: Supple. Tracheostomy present. CHEST: Rise symmetrical. Breath sounds diminished to bases. HEART: S1, S2. ABDOMEN: Soft, bowel sounds present. EXTREMITIES: No cyanosis. ASSESSMENT: 1. Status post septic shock. 2. Polymicrobial bacteremia with repeat blood cultures on 03/15/2017 negative. 3. Multidrug resistant polymicrobial urinary tract infection. 4. G-tube site cellulitis with malfunction, status post discontinued, now with NG tube to suction. 5. Encephalopathy. 6. Acute on chronic kidney disease. 7. Diabetes. 8. Pneumonia, healthcare-associated. PLAN: The patient remains stable off pressors. Followed by multiple consultants. Surgery is following, pending gastrocutaneous fistula closure. Dictated By: DOROTHY CORONADO [employer]PER[employer] for GABINO BOSTON/RAYSA Conf#: [id number] DID#: [id number] [place]
--- NOTE | 2017-03-20 20:23 | CONS ---
Date/Time of Note Date/Time of Note DATE: 03/20/17 TIME: 20:21 Assessment/Plan Assessment/Plan Additional Assessment/Plan IMPRESSION: 1. Malfunctioning gastrostomy tube. 2. Cellulitis as well as contact dermatitis around the G-tube site. 3. Vent-dependent respiratory failure. 4. Chronic kidney disease. 5. coffee ground in NGT with anemia, however h/h stable. 6. Parkinson disease. 7. Hypotension, probably related to sepsis. 8. renal failure, urine output improved 9. 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 Septic shock patient has MRSA bacteremia and UTI Plan 1. agree with surgical closure of the GT fistula tract if it cannot close spontaneously. 2. Continue antibiotic and pressor support 3. Once the condition is more stable and the old GT site closed, then we will make an attempt to close the G-tube site and put a new G-tube 4. OK to use NGT for meds 5. Continue vent support 6. If there is acute drop in h/h and continued coffee ground in NG, then will perform EGD for hemostasis with cardiac clearance. 7. Continue TPN for nutrition optimization and will help with GT fistula closure 8. I will discuss with the surgeon patient may need a surgical closer since the opening is too large Consultation Date/Type/Reason Admit Date/Time March 11, 2017 at 22:57 Type of Consultation: Pulmonary 24 HR Interval Summary Subjective hx not possible: pt critical Exam/Review of Systems Vital Signs Vitals Vital Signs Date Time Temp Pulse Resp B/P Pulse Ox O2 Delivery O2 Flow Rate FiO2 03/20/17 19:16 73 14 100 30 03/20/17 18:00 129/55 03/20/17 17:00 Mechanical Ventilator 03/20/17 16:00 97.1 Intake and Output 03/19/17 03/19/17 03/20/17 15:00 23:00 07:00 Intake Total 900 ml 900 ml 150 ml Output Total 600 ml 420 ml 435 ml Balance 300 ml 480 ml -285 ml Exam ENMT: intubated Respiratory: other (Patient is on vent) Cardiovascular: nl pulses, regular rate and rhythm Gastrointestinal: nl liver, spleen, non-tender, other (Gastrostomy opening is too large and the stomach wall is also visualized through the opening. [place] the size of the stoma might be 3 inches in diameter), soft Neurological: unresponsive Results Result Diagram: 03/20/17 0430 03/20/17 0430 Results 24 hrs Laboratory Tests Test 03/20/17 00:18 03/20/17 04:30 03/20/17 06:13 03/20/17 12:44 Bedside Glucose 135 121 141 White Blood Count 6.5 Red Blood Count 2.66 L Hemoglobin 8.0 L Hematocrit 26.3 L Mean Corpuscular Volume 98.9 Mean Corpuscular Hemoglobin 30.1 Mean Corpuscular Hemoglobin Concent 30.4 L Red Cell Distribution Width 18.7 H Platelet Count 160 Mean Platelet Volume 10.1 Neutrophils % 71.6 Lymphocytes % 13.6 L Monocytes % 4.1 Eosinophils % 5.7 Basophils % 0.3 Nucleated Red Blood Cells % 0.0 Neutrophils # 4.7 Lymphocytes # 0.9 Monocytes # 0.3 Eosinophils # 0.4 Basophils # 0.0 Nucleated Red Blood Cells # 0.0 Sodium Level 138 Potassium Level 3.7 Chloride Level 109 Carbon Dioxide Level 28 Anion Gap 5 L Blood Urea Nitrogen 60 H Creatinine 2.40 H Glucose Level 109 Calcium Level 7.8 L Phosphorus Level 3.2 Magnesium Level 1.5 L Test 03/20/17 18:14 Bedside Glucose 117 Medications Medications Current Medications Bisacodyl (Dulcolax Supp) 10 mg Q48H DE ; Start 03/11/17 at 23:30 Chlorhexidine Gluconate (Peridex) 15 ml BID MT Last administered on 03/20/17 08:44; Admin Dose 15 ML; Start 03/12/17 at 09:00 Epoetin Vasyl (Epogen (Non Esrd/Non Oncology)) 10,000 units MoWeFr@17 SC Last administered on 03/18/17 17:37; Admin Dose 10,000 UNITS; Start 03/13/17 at 17: 00 Sodium Biphosphate/ Sodium Phosphate 118 ml 118 ml Q72H PRN [place] CONSTIPATION; Start 03/11/17 at 23:30 Meropenem (Merrem 500 Mg/ 100 ml (Pmx)) 100 ml @ 200 mls/hr Q12 IVPB Last administered on 03/20/17 10:26; Admin Dose 200 MLS/HR; Start 03/13/17 at 21:00 Nystatin (Nystatin Powder) 1 applic BID TOP Last administered on 5/31/17at 08: 44; Admin Dose 1 APPLIC; Start 03/13/17 at 15:00 Collagenase (Santyl) 1 applic DAILY TOP Last administered on 03/20/17 08:44; Admin Dose 1 APPLIC; Start 03/13/17 at 15:00 Insulin Aspart (Novolog Insulin Pen) NOVOLOG *MILD* ALGORI... Q6 SC Last administered on 03/20/17 12:46; Admin Dose 1 UNIT; Start 03/14/17 at 12:00 Miscellaneous Information 1 ea NOTE XX ; Start 03/14/17 at 07:30 Glucose (Glutose) 15 gm Q15M PRN PO DECREASED GLUCOSE; Start 03/14/17 at 07:30 Glucose (Glutose) 22.5 gm Q15M PRN PO DECREASED GLUCOSE; Start 03/14/17 at 07: 30 Dextrose (D50w Syringe) 25 ml Q15M PRN IV DECREASED GLUCOSE; Start 03/14/17 at 07:30 Dextrose (D50w Syringe) 50 ml Q15M PRN IV DECREASED GLUCOSE; Start 03/14/17 at 07:30 Glucagon (Glucagen) 1 mg Q15M PRN IM DECREASED GLUCOSE; Start 03/14/17 at 07:30 Glucose 15 gm 15 gm Q15M PRN BUCCAL DECREASED GLUCOSE; Start 03/14/17 at 07:30 Linezolid 300 ml @ 300 mls/hr Q12 IVPB Last administered on 03/20/17 08:44; Admin Dose 300 MLS/HR; Start 03/15/17 at 21:00 Fluconazole/ Sodium Chloride 50 ml @ 50 mls/hr Q24H IVPB Last administered on 00:20; Admin Dose 50 MLS/HR; Start 03/16/17 at 00:00 Total Parenteral Nutrition (Tpn) 1,000 ml @ 50 mls/hr Q20H IV Last administered on 03/20/17 06:08; Admin Dose 50 MLS/HR; Start 03/17/17 at 18:00 Gentamicin Sulfate (Gentamicin Iv Per Pharmacy) GENTAMICIN PER PHARMACY NOTE XX ; Start 03/19/17 at 13:00 Miscellaneous Information (*Rx Drug Level Order Reminder*) RANDOM GENTAMICIN LEVEL ... ONCE ONCE XX ; Start 03/21/17 at 05:00; Stop 03/21/17 at 05:01 SYLWIA SY MD March 20, 2017 20:23
[2017-03-20] MEDS: EPOETIN 10000 UNITS/ML (NON ESRD/NON ONCOLOGY) SC SCH (20:47)
[2017-03-21] VITALS (36 sets, daily range): BP systolic 94–160; BP diastolic 37–80; PULSE 66–82; RESP 12–18
[2017-03-21] MEDS: INSULIN ASPART [NOVOLOG] 3 ML PEN SC SCH ×5 (00:17→23:57)
[2017-03-21] MEDS: FLUCONAZOLE 100 MG/NS (PMX) 50 ML IVPB SCH ×2 (02:00→23:51)
[2017-03-21] MEDS: TPN 1,000 ML IV SCH ×2 (02:00→21:20)
--- NOTE | 2017-03-21 02:11 | PN ---
Date/Time of Note Date/Time of Note DATE: 03/19/17 TIME: 12:09 Assessment/Plan Lines/Catheters IV Catheter Type (from [facility]): Central Line Collazo in Place (from [facility]): Yes Assessment/Plan Chief Complaint/Hosp Course 1. Large gastrocutaneous fistula with continued leakage. -local care -antibiotics. -supportive -eventual debridement and closure of this to allow healing prior to replacement of the feeding tube at a later time > will await medical optimization prior to considering surgical closure of the site 2. Abdominal wall cellulitis secondary to above. Continue antibiotics and local care. 3. Methicillin-resistant Staphylococcus aureus bacteremia. -antibiotics -supportive care & line changes 4. Pelvic deformity with fluid around the pelvic bone on CT scan. We will need to discuss with radiology for possible osteo. 5. Anemia without evidence of acute blood loss. Continue close monitoring and transfuse as needed. 6. Obesity with BMI of 31. Continue nutritional optimization when possible. 7. Sepsis secondary to above. Continue as above. 8. Ventilatory dependent respiratory failure. Continue pulmonary toilet and ventilator support. 9. Acute on chronic renal failure. Continue judicious fluid management and try to avoid nephrotoxic agents. 10. Coronary artery disease. Continue cardiac optimization. 11. Hypertension. Continue nutrition and medication control. 12. Advanced Parkinson's dementia with encephalopathy. Continue medical optimization. 13. Functional quadriplegia. Continue medical optimization, off loading, & nutritional optimization 14. Congestive heart failure. Continue judicious fluid management and cardiac optimization. Thank you Late entry 03/19 Problems: Subjective 24 Hr Interval Summary Pressor. No f/c. No cough. No sz. No vomiting. +Stool in rectal tube. No active bleeding. Exam/Review of Systems Vital Signs Vitals Vital Signs Date Time Temp Pulse Resp B/P Pulse Ox O2 Delivery O2 Flow Rate FiO2 03/21/17 01:20 63 14 100 30 03/20/17 23:00 156/73 03/20/17 22:00 Mechanical Ventilator 03/20/17 20:00 97.9 Intake and Output 03/20/17 03/20/17 03/21/17 15:00 23:00 07:00 Intake Total 750 ml 850 ml Output Total 165 ml 255 ml Balance 585 ml 595 ml Exam Free Text/Dictation GENERAL: Obese, noncommunicative, ventilated. HEENT: Pupils are sluggish. No scleral icterus. Mucous membranes are moist. NECK: Trach in place, no crepitus, no edema. PULMONARY: Normal respiratory effort. No wheezing. CARDIAC: S1, S2 present. ABDOMEN: Soft, obese. Edema with blanching erythema, especially around the gastrocutaneous fistula, which is large denuded tissue. EXTREMITIES: With edema. VASCULAR: Capillary refill is 3 seconds. NEUROLOGIC: Does not follow commands. SKIN: Puffy rashes. No jaundice. Abdominal wound as above. Other wounds as per nursing notes. Results Result Diagram: 03/20/17 0430 03/20/17 0430 JOCELYN FINE MD Mar 21, 2017 02:11
--- NOTE | 2017-03-21 02:12 | PN ---
Date/Time of Note Date/Time of Note DATE: 03/20/17 TIME: 22:11 Assessment/Plan Lines/Catheters IV Catheter Type (from [facility]): Central Line Collazo in Place (from [facility]): Yes Assessment/Plan Chief Complaint/Hosp Course 1. Large gastrocutaneous fistula with continued leakage. -local care -antibiotics. -supportive -eventual debridement and closure of this to allow healing prior to replacement of the feeding tube at a later time > will await medical optimization prior to considering surgical closure of the site 2. Abdominal wall cellulitis secondary to above. Continue antibiotics and local care. 3. Methicillin-resistant Staphylococcus aureus bacteremia. -antibiotics -supportive care & line changes 4. Pelvic deformity with fluid around the pelvic bone on CT scan. We will need to discuss with radiology for possible osteo. 5. Anemia without evidence of acute blood loss. Continue close monitoring and transfuse as needed. 6. Obesity with BMI of 31. Continue nutritional optimization when possible. 7. Sepsis secondary to above. Continue as above. 8. Ventilatory dependent respiratory failure. Continue pulmonary toilet and ventilator support. 9. Acute on chronic renal failure. Continue judicious fluid management and try to avoid nephrotoxic agents. 10. Coronary artery disease. Continue cardiac optimization. 11. Hypertension. Continue nutrition and medication control. 12. Advanced Parkinson's dementia with encephalopathy. Continue medical optimization. 13. Functional quadriplegia. Continue medical optimization, off loading, & nutritional optimization 14. Congestive heart failure. Continue judicious fluid management and cardiac optimization. Thank you Late entry 03/20 Problems: Subjective 24 Hr Interval Summary Pressor off. No f/c. No cough. No sz. No vomiting. Bowel function. No active bleeding. Exam/Review of Systems Vital Signs Vitals Vital Signs Date Time Temp Pulse Resp B/P Pulse Ox O2 Delivery O2 Flow Rate FiO2 03/21/17 01:20 63 14 100 30 03/20/17 23:00 156/73 03/20/17 22:00 Mechanical Ventilator 03/20/17 20:00 97.9 Intake and Output 03/20/17 03/20/17 03/21/17 15:00 23:00 07:00 Intake Total 750 ml 850 ml Output Total 165 ml 255 ml Balance 585 ml 595 ml Exam Free Text/Dictation GENERAL: Obese, noncommunicative, ventilated. HEENT: Pupils are sluggish. No scleral icterus. Mucous membranes are moist. NECK: Trach in place, no crepitus, no edema. PULMONARY: Normal respiratory effort. No wheezing. CARDIAC: S1, S2 present. ABDOMEN: Soft, obese. Edema with blanching erythema, especially around the gastrocutaneous fistula, which is large denuded tissue. EXTREMITIES: With edema. VASCULAR: Capillary refill is 3 seconds. NEUROLOGIC: Does not follow commands. SKIN: Puffy rashes. No jaundice. Abdominal wound as above. Other wounds as per nursing notes. Results Result Diagram: 03/20/17 0430 03/20/17 0430 JOCELYN FINE MD Mar 21, 2017 02:12
[2017-03-21 05:05] LABS: ADD SCAN DIFF NO
[2017-03-21 05:13] LABS: BASOPHILS % 0.2 % (0.0-2.0); EOSINOPHILS # 0.4 10^3/ul (0.0-0.5); HEMATOCRIT 26.8 % (37.0-47.0); HEMOGLOBIN 8.3 g/dl (12.0-16.0); LYMPHOCYTES # 0.6 10^3/ul (0.8-2.9); MEAN CORPUSCULAR HEMOGLOBIN 30.4 pg (29.0-33.0); MEAN CORPUSCULAR VOLUME 98.2 fl (82.0-101.0); MEAN PLATELET VOLUME 9.6 fl (7.4-10.4); MONOCYTE # 0.3 10^3/ul (0.3-0.9); MONOCYTES % 4.4 % (0.0-11.0); NEUTROPHIL # 4.8 10^3/ul (1.6-7.5); NEUTROPHILS % 75.5 % (39.0-77.0); PLATELET COUNT 140 10^3/UL (140-415); RED BLOOD COUNT 2.73 10^6/ul (4.20-5.40); RED CELL DISTRIBUTION WIDTH 18.1 % (11.5-14.5); WHITE BLOOD COUNT 6.4 10^3/ul (4.8-10.8)
[2017-03-21 05:32] LABS: CALCIUM 7.9 mg/dl (8.4-10.2); CREATININE 2.14 mg/dl (0.44-1.00); MAGNESIUM 1.8 mg/dl (1.7-2.5); PHOSPHORUS 3.3 mg/dl (2.5-4.9); POTASSIUM 3.9 mmol/L (3.5-5.1)
[2017-03-21] MEDS: CHLORHEXIDINE GLUCONATE 15 ML UD CUP MT SCH ×2 (08:56→21:19)
[2017-03-21] MEDS: FUROSEMIDE 40 MG INJ IV SCH (08:59)
[2017-03-21] MEDS: COLLAGENASE 30 GM TUBE TOP SCH (08:59)
[2017-03-21] MEDS: MEROPENEM 500 MG/100 ML (PMX) 100 ML IVPB SCH ×2 (08:59→21:07)
[2017-03-21] MEDS: LINEZOLID 600 MG/D5W (PMX) 300 ML IVPB SCH ×2 (08:59→21:07)
[2017-03-21] MEDS: NYSTATIN 30 GM POWDER BTL TOP SCH ×2 (08:59→21:08)
--- NOTE | 2017-03-21 09:29 | PN ---
DATE: 03/21/2017 SUBJECTIVE: The patient remains stable, no acute events overnight. No hemoptysis, hematemesis or h ematochezia. OBJECTIVE: VITAL SIGNS: Blood pressure 119/50, respirations 13, pulse 69, temperature 97.2. I's and O's: The patient had 2 L in and 920 out. HEENT: Head is normocephalic. NECK: Supple. HEART: Regular rate. LUNGS: Show diminished breath sounds at the bases. ABDOMEN: Soft, nontender to palpation. No rebound or guarding. EXTREMITIES: Negative for clubbing, cyanosis. Positive edema, positive contraction. DERMATOLOGIC: No rashes. MUSCULOSKELETAL: No joint effusions. There are also noted wounds. NEUROLOGIC: No change in exam. LABORATORY DATA: Shows white count 6.4, hemoglobin 8.3, hematocrit 26.8, platelet count 140. Sodiu m 141, potassium 3.9, BUN 59, creatinine 2.14. MEDICATIONS: The patient's medications have been reviewed. ASSESSMENT AND PLAN: 1. Sepsis, status post shock. Etiology secondary to pneumonia, urinary tract infection, cellulitis , fungemia. The patient remains off pressors. Continue current treatment. Continue antimicrobial and antifungal therapy. 2. Ventilator-dependent respiratory failure. Vent settings have been reviewed. ABG has been revie wed. Continue to monitor. 3. Nonoliguric acute kidney injury on top of chronic kidney disease stage IV. Etiology secondary t o acute tubular necrosis and septic acute kidney injury. Renal function has been improving slowly. Continue treatment plan, supportive care, renally dose all meds. 4. Hypernatremia, improved. 5. Hypomagnesemia, improved. 6. Abdominal wall cellulitis with gastrocutaneous fistula. The patient is being followed by [facility] surgery [facility] GI. At this point, surgical closure will be done once the patient is more clinically stable. Continue local wound care. 7. Nutrition, dysphagia. The patient is on TPN. Continue to monitor. 8. Acute encephalopathy with advanced dementia. Etiology is toxic metabolic. Continue current anival atment plan. 9. Mineral bone disorder. Continue to monitor calcium and phosphorus levels. 10. Anemia. Continue to monitor hemoglobin and hematocrit levels. Continue Epogen. 11. Coronary artery disease. Continue current treatment plan. 12. Diabetes. Continue Accu-Cheks and insulin sliding scale. 13. Decubitus wound. Continue wound care. 14. Gastrointestinal and deep venous thrombosis prophylaxis. Continue proton pump inhibitor, seque ntial leg squeezers and heparin. Please note I spent over 35 minutes of critical care time with this patient. Dictated By: OSMAR HERNANDEZ/RAYSA Conf#: [id number] DID#: [id number]
--- NOTE | 2017-03-21 10:35 | CONS ---
Date/Time of Note Date/Time of Note DATE: 03/21/17 TIME: 10:34 Consult Date/Type/Reason Admit Date/Time March 11, 2017 at 22:57 Type of Consultation: Pulmonary Subjective Patient remains somnolent on mechanical ventilation Objective Vital Signs Date Time Temp Pulse Resp B/P Pulse Ox O2 Delivery O2 Flow Rate FiO2 03/21/17 08:00 67 03/21/17 07:00 13 119/50 100 Mechanical Ventilator 03/21/17 05:15 30 03/21/17 04:00 97.2 Intake and Output 03/20/17 03/20/17 03/21/17 15:00 23:00 07:00 Intake Total 750 ml 850 ml 450 ml Output Total 165 ml 255 ml 530 ml Balance 585 ml 595 ml -80 ml Exam PHYSICAL EXAMINATION GENERAL: Elderly lady on mechanical ventilation via tracheostomy VITAL SIGNS: see below. HEENT: Pupils equal, round, and reactive to light. Tracheostomy site clean and intact. CARDIAC: S1, S2, 1/6 systolic ejection murmur CHEST: Diminished air entry bilaterally. ABDOMEN: Mildly distended. Bowel sounds present no guarding or rebound G-tube site cellulitis EXTREMITIES: No cyanosis, clubbing edema +1 NEUROLOGIC: Generalized weakness Results/Medications Result Diagram: 03/21/17 0500 03/21/17 0500 Results 24 hrs Laboratory Tests Test 03/20/17 12:44 03/20/17 18:14 03/21/17 00:12 03/21/17 05:00 Bedside Glucose 141 117 141 White Blood Count 6.4 Red Blood Count 2.73 L Hemoglobin 8.3 L Hematocrit 26.8 L Mean Corpuscular Volume 98.2 Mean Corpuscular Hemoglobin 30.4 Mean Corpuscular Hemoglobin Concent 31.0 L Red Cell Distribution Width 18.1 H Platelet Count 140 Mean Platelet Volume 9.6 Neutrophils % 75.5 Lymphocytes % 10.0 L Monocytes % 4.4 Eosinophils % 6.0 Basophils % 0.2 Nucleated Red Blood Cells % 0.0 Neutrophils # 4.8 Lymphocytes # 0.6 L Monocytes # 0.3 Eosinophils # 0.4 Basophils # 0.0 Nucleated Red Blood Cells # 0.0 Sodium Level 141 Potassium Level 3.9 Chloride Level 113 H Carbon Dioxide Level 26 Anion Gap 6 L Blood Urea Nitrogen 59 H Creatinine 2.14 H Glucose Level 109 Calcium Level 7.9 L Phosphorus Level 3.3 Magnesium Level 1.8 Random Gentamicin Level 2.2 Test 03/21/17 05:36 Bedside Glucose 123 Medications Current Medications Bisacodyl (Dulcolax Supp) 10 mg Q48H OR ; Start 03/11/17 at 23:30 Chlorhexidine Gluconate (Peridex) 15 ml BID MT Last administered on 03/21/17 08 :56; Admin Dose 15 ML; Start 03/12/17 at 09:00 Epoetin Vasyl (Epogen (Non Esrd/Non Oncology)) 10,000 units MoWeFr@17 SC Last administered on 03/20/17 20:47; Admin Dose 10,000 UNITS; Start 03/13/17 at 17: 00 Sodium Biphosphate/ Sodium Phosphate 118 ml 118 ml Q72H PRN [place] CONSTIPATION; Start 03/11/17 at 23:30 Meropenem (Merrem 500 Mg/ 100 ml (Pmx)) 100 ml @ 200 mls/hr Q12 IVPB Last administered on 03/21/17 08:59; Admin Dose 200 MLS/HR; Start 03/13/17 at 21:00 Nystatin (Nystatin Powder) 1 applic BID TOP Last administered on 03/21/17 08:59 ; Admin Dose 1 APPLIC; Start 03/13/17 at 15:00 Collagenase (Santyl) 1 applic DAILY TOP Last administered on 03/21/17 08:59; Admin Dose 1 APPLIC; Start 03/13/17 at 15:00 Insulin Aspart (Novolog Insulin Pen) NOVOLOG *MILD* ALGORI... Q6 SC Last administered on 03/21/17 00:17; Admin Dose 1 UNIT; Start 03/14/17 at 12:00 Miscellaneous Information 1 ea NOTE XX ; Start 03/14/17 at 07:30 Glucose (Glutose) 15 gm Q15M PRN PO DECREASED GLUCOSE; Start 03/14/17 at 07:30 Glucose (Glutose) 22.5 gm Q15M PRN PO DECREASED GLUCOSE; Start 03/14/17 at 07: 30 Dextrose (D50w Syringe) 25 ml Q15M PRN IV DECREASED GLUCOSE; Start 03/14/17 at 07:30 Dextrose (D50w Syringe) 50 ml Q15M PRN IV DECREASED GLUCOSE; Start 03/14/17 at 07:30 Glucagon (Glucagen) 1 mg Q15M PRN IM DECREASED GLUCOSE; Start 03/14/17 at 07:30 Glucose 15 gm 15 gm Q15M PRN BUCCAL DECREASED GLUCOSE; Start 03/14/17 at 07:30 Linezolid 300 ml @ 300 mls/hr Q12 IVPB Last administered on 03/21/17 08:59; Admin Dose 300 MLS/HR; Start 03/15/17 at 21:00 Fluconazole/ Sodium Chloride 50 ml @ 50 mls/hr Q24H IVPB Last administered on 02:00; Admin Dose 50 MLS/HR; Start 03/16/17 at 00:00 Total Parenteral Nutrition (Tpn) 1,000 ml @ 50 mls/hr Q20H IV Last administered on 03/21/17 02:00; Admin Dose 50 MLS/HR; Start 03/17/17 at 18:00 Gentamicin Sulfate (Gentamicin Iv Per Pharmacy) GENTAMICIN PER PHARMACY NOTE XX ; Start 03/19/17 at 13:00 Furosemide (Lasix) 40 mg DAILY IV Last administered on 03/21/17 08:59; Admin Dose 40 MG; Start 03/21/17 at 09:00 Assessment/Plan Chief Complaint/Hosp Course Additional Assessment/Plan IMP: 1. Septic shock likely secondary to urinary tract infection cellulitis. Now off vasopressors 2. Vent dependent respiratory failure. 3. G-tube malfunction with abdominal wall cellulitis. 4. Urinary tract infection. Continue antibiotics per primary team. 5. Encephalopathy at baseline. 6. Dysphagia. 7. Hypernatremia 9. Anemia RECS: 1. Vent support 2. Levophed to MAP > 65 mm Hg as needed 3. Abx per ID de-escalate 4. Free H20/TNP 5. Palliative Care Consult, primary care team discussed with family wish to continue all aggressive measures betts evaluation Transfer to telemetry okay from pulmonary standpoint 35 min cc time Problems: JARED CLAIRE MD, [facility] Mar 21, 2017 10:35
--- NOTE | 2017-03-21 13:23 | PN ---
DATE: 03/21/2017 SUBJECTIVE: No events overnight. The patient remains on Dejuan Hugger secondary to hypothermia. She is in no distress. Pulse 69, respirations 13, blood pressure 115/50, saturation 100 on vent. WBC 6.4, H and H 8.3 and 26.8, platelets 140, no shift, no bands. BUN 59, creatinine 2.14. ANTIMICROBIALS: The patient remains on: 1. IV gentamicin. 2. Fluconazole. 3. Zyvox. 4. Meropenem. MICROBIOLOGY: Blood cultures on admission grew MRSA. Repeat blood culture growing enterococcus, Ca ndida albicans. Urine culture grew Providencia, Proteus mirabilis, Pseudomonas and Klebsiella pneum oniae, ESBL positive stool for Clostridium difficile came back negative. INDWELLINGS: Trach, right IJ triple lumen catheter, Collazo and NG tube. PHYSICAL EXAMINATION: GENERAL: Fragile chronically ill-appearing, elderly woman who is in no distress. HEENT: Head atraumatic, normocephalic. Sclerae anicteric. Buccal mucosa dry. NECK: Supple. Tracheostomy present. CHEST: Rise symmetrical. Breath sounds diminished to bases. HEART: S1, S2. ABDOMEN: Soft. Bowel tones present. EXTREMITIES: Without cyanosis. Bilateral trace edema. ASSESSMENT: 1. Severe sepsis status post shock. 2. Polymicrobial bacteremia. 3. 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 4. Urinary tract infection. 5. Acute on chronic kidney disease. 6. Healthcare-associated pneumonia. 7. Diabetes. 8. Chronic encephalopathy. PLAN: The patient remains stable. Continue present care. Continue on current antibiotics to compl ete the treatment for bacteremia. Follow surgical recommendations. Pending gastrocutaneous fistula closure. Dictated By: DOROTHY CORONADO PRODUCT DEVELOPMENT ASSISTANT for GABINO BOSTON/NTS Conf#: [id number] DID#: [id number]
--- NOTE | 2017-03-21 20:29 | CONS ---
Date/Time of Note Date/Time of Note DATE: 03/21/17 TIME: 20:23 Assessment/Plan Assessment/Plan Additional Assessment/Plan Additional Assessment/Plan IMPRESSION: 1. Malfunctioning gastrostomy tube. 2. Cellulitis as well as contact dermatitis around the G-tube site. 3. Vent-dependent respiratory failure. 4. Chronic kidney disease. 5. coffee ground in NGT with anemia, however h/h stable. 6. Parkinson disease. 7. Hypotension, probably related to sepsis. 8. renal failure, urine output improved 9. 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 Septic shock patient has MRSA bacteremia and UTI Plan 1. agree with surgical closure of the GT fistula tract if it cannot close spontaneously. 2. Continue antibiotic and pressor support 3. Once the condition is more stable and the old GT site closed, then we will make an attempt to close the G-tube site and put a new G-tube 4. OK to use NGT for meds 5. Continue vent support 6. If there is acute drop in h/h and continued coffee ground in NG, then will perform EGD for hemostasis with cardiac clearance. 7. Continue TPN for nutrition optimization and will help with GT fistula closure 8. I will discuss with the surgeon patient may need a surgical closer since the opening is too large Consultation Date/Type/Reason Admit Date/Time March 11, 2017 at 22:57 Type of Consultation: Pulmonary 24 HR Interval Summary Subjective hx not possible: pt non-verbal, pt critical Constitutional: no complaints Exam/Review of Systems Vital Signs Vitals Vital Signs Date Time Temp Pulse Resp B/P Pulse Ox O2 Delivery O2 Flow Rate FiO2 03/21/17 19:28 77 14 100 30 03/21/17 19:00 108/41 Mechanical Ventilator 03/21/17 16:00 97.5 Intake and Output 03/20/17 03/20/17 03/21/17 15:00 23:00 07:00 Intake Total 750 ml 850 ml 450 ml Output Total 165 ml 255 ml 530 ml Balance 585 ml 595 ml -80 ml Exam Eyes: EOMI, PERRL, nl conjunctiva, nl lids, nl sclera Respiratory: clear to auscultation, normal air movement Cardiovascular: nl pulses, regular rate and rhythm Gastrointestinal: other (Stoma still wide open) Neurological: unresponsive Results Result Diagram: 03/21/17 0500 03/21/17 0500 Results 24 hrs Laboratory Tests Test 03/21/17 00:12 03/21/17 05:00 03/21/17 05:36 03/21/17 12:37 Bedside Glucose 141 123 130 White Blood Count 6.4 Red Blood Count 2.73 L Hemoglobin 8.3 L Hematocrit 26.8 L Mean Corpuscular Volume 98.2 Mean Corpuscular Hemoglobin 30.4 Mean Corpuscular Hemoglobin Concent 31.0 L Red Cell Distribution Width 18.1 H Platelet Count 140 Mean Platelet Volume 9.6 Neutrophils % 75.5 Lymphocytes % 10.0 L Monocytes % 4.4 Eosinophils % 6.0 Basophils % 0.2 Nucleated Red Blood Cells % 0.0 Neutrophils # 4.8 Lymphocytes # 0.6 L Monocytes # 0.3 Eosinophils # 0.4 Basophils # 0.0 Nucleated Red Blood Cells # 0.0 Sodium Level 141 Potassium Level 3.9 Chloride Level 113 H Carbon Dioxide Level 26 Anion Gap 6 L Blood Urea Nitrogen 59 H Creatinine 2.14 H Glucose Level 109 Calcium Level 7.9 L Phosphorus Level 3.3 Magnesium Level 1.8 Random Gentamicin Level 2.2 Test 03/21/17 18:34 Bedside Glucose 114 Medications Medications Current Medications Bisacodyl (Dulcolax Supp) 10 mg Q48H [place] ; Start 03/11/17 at 23:30 Chlorhexidine Gluconate (Peridex) 15 ml BID MT Last administered on 03/21/17 08 :56; Admin Dose 15 ML; Start 03/12/17 at 09:00 Epoetin Vasyl (Epogen (Non Esrd/Non Oncology)) 10,000 units MoWeFr@17 SC Last administered on 03/20/17 20:47; Admin Dose 10,000 UNITS; Start 03/13/17 at 17: 00 Sodium Biphosphate/ Sodium Phosphate 118 ml 118 ml Q72H PRN [place] CONSTIPATION; Start 03/11/17 at 23:30 Meropenem (Merrem 500 Mg/ 100 ml (Pmx)) 100 ml @ 200 mls/hr Q12 IVPB Last administered on 03/21/17 08:59; Admin Dose 200 MLS/HR; Start 03/13/17 at 21:00 Nystatin (Nystatin Powder) 1 applic BID TOP Last administered on 03/21/17 08:59 ; Admin Dose 1 APPLIC; Start 03/13/17 at 15:00 Collagenase (Santyl) 1 applic DAILY TOP Last administered on 03/21/17 08:59; Admin Dose 1 APPLIC; Start 03/13/17 at 15:00 Insulin Aspart (Novolog Insulin Pen) NOVOLOG *MILD* ALGORI... Q6 SC Last administered on 03/21/17 00:17; Admin Dose 1 UNIT; Start 03/14/17 at 12:00 Miscellaneous Information 1 ea NOTE XX ; Start 03/14/17 at 07:30 Glucose (Glutose) 15 gm Q15M PRN PO DECREASED GLUCOSE; Start 03/14/17 at 07:30 Glucose (Glutose) 22.5 gm Q15M PRN PO DECREASED GLUCOSE; Start 03/14/17 at 07: 30 Dextrose (D50w Syringe) 25 ml Q15M PRN IV DECREASED GLUCOSE; Start 03/14/17 at 07:30 Dextrose (D50w Syringe) 50 ml Q15M PRN IV DECREASED GLUCOSE; Start 03/14/17 at 07:30 Glucagon (Glucagen) 1 mg Q15M PRN IM DECREASED GLUCOSE; Start 03/14/17 at 07:30 Glucose 15 gm 15 gm Q15M PRN BUCCAL DECREASED GLUCOSE; Start 03/14/17 at 07:30 Linezolid 300 ml @ 300 mls/hr Q12 IVPB Last administered on 03/21/17 08:59; Admin Dose 300 MLS/HR; Start 03/15/17 at 21:00 Fluconazole/ Sodium Chloride 50 ml @ 50 mls/hr Q24H IVPB Last administered on 02:00; Admin Dose 50 MLS/HR; Start 03/16/17 at 00:00 Total Parenteral Nutrition (Tpn) 1,000 ml @ 50 mls/hr Q20H IV Last administered on 03/21/17 02:00; Admin Dose 50 MLS/HR; Start 03/17/17 at 18:00 Gentamicin Sulfate (Gentamicin Iv Per Pharmacy) GENTAMICIN PER PHARMACY NOTE XX ; Start 03/19/17 at 13:00 Furosemide (Lasix) 40 mg DAILY IV Last administered on 03/21/17 08:59; Admin Dose 40 MG; Start 03/21/17 at 09:00 SYLWIA SY MD Mar 21, 2017 20:29
[2017-03-21] MEDS: BISACODYL 10 MG SUPP PR SCH (23:30)
[2017-03-22] VITALS (29 sets, daily range): BP systolic 106–133; BP diastolic 36–67; PULSE 69–83; RESP 10–21
[2017-03-22 05:25] LABS: ADD SCAN DIFF NO
[2017-03-22 05:51] LABS: BASOPHILS % 0.1 % (0.0-2.0); EOSINOPHILS # 0.3 10^3/ul (0.0-0.5); EOSINOPHILS % 4.2 % (0.0-7.0); HEMATOCRIT 25.5 % (37.0-47.0); HEMOGLOBIN 7.9 g/dl (12.0-16.0); LYMPHOCYTES # 0.9 10^3/ul (0.8-2.9); LYMPHOCYTES % 11.9 % (15.0-51.0); MEAN CORPUSCULAR HEMOGLOBIN 30.2 pg (29.0-33.0); MEAN CORPUSCULAR VOLUME 97.3 fl (82.0-101.0); MEAN PLATELET VOLUME 9.6 fl (7.4-10.4); MONOCYTE # 0.3 10^3/ul (0.3-0.9); MONOCYTES % 3.6 % (0.0-11.0); NEUTROPHIL # 5.6 10^3/ul (1.6-7.5); NEUTROPHILS % 78.2 % (39.0-77.0); PLATELET COUNT 138 10^3/UL (140-415); RED BLOOD COUNT 2.62 10^6/ul (4.20-5.40); RED CELL DISTRIBUTION WIDTH 17.8 % (11.5-14.5); WHITE BLOOD COUNT 7.1 10^3/ul (4.8-10.8)
[2017-03-22 05:53] LABS: CALCIUM 8.3 mg/dl (8.4-10.2); CREATININE 2.08 mg/dl (0.44-1.00); MAGNESIUM 1.9 mg/dl (1.7-2.5); PHOSPHORUS 3.3 mg/dl (2.5-4.9); POTASSIUM 4.1 mmol/L (3.5-5.1)
[2017-03-22] MEDS: INSULIN ASPART [NOVOLOG] 3 ML PEN SC SCH ×3 (06:00→18:00)
--- NOTE | 2017-03-22 08:16 | PN ---
DATE: 03/22/2017 SUBJECTIVE: The patient remains clinically stable. No acute events overnight, remains on TPN. No hemoptysis, hematemesis or hematochezia. OBJECTIVE: VITAL SIGNS: Blood pressure is 119/45, respirations 18, pulse 77, temperature 98.1. HEENT: Head is normocephalic. NECK: Supple. HEART: Regular rate. LUNGS: Showed diminished breath sounds at the base. ABDOMEN: Soft, nontender to palpation. Positive dressing over ostomy site, clean, dry and intact. DERMATOLOGIC: No rashes. MUSCULOSKELETAL: Positive contractures. Positive decubitus wound. NEUROLOGIC: No change in exam. EXTREMITY EXAM: Positive edema. LABORATORY DATA: Shows sodium 137, potassium 4.1, BUN 59, creatinine 2.08. White count 7.1, hemogl obin 7.9, hematocrit 25.5, platelet count 138. ASSESSMENT AND PLAN: 1. Sepsis, status post shock. Etiology is secondary to pneumonia, UTI and fungemia. The patient r emains on pressors. Will continue the current antibiotic regimen, continue antimicrobial therapy. 2. Ventilatory-dependent respiratory failure. Vent settings were reviewed. ABG was reviewed. Con tinue to monitor. 3. Nonoliguric acute kidney injury on top of chronic kidney disease stage 4. Etiology is secondary to ATN and septic acute kidney injury. Renal function has slowly been improving. Continue support alexis care, renally dose all meds, and avoid nephrotoxins. 4. Hyponatremia. Improved. 5. Hypomagnesemia. Improved. 6. Abdominal wall cellulitis with gastrocutaneous fistula. The patient is being followed by [facility]. Continue to monitor. Anticipate surgical closure once the patient is clinically stable. 7. Nutrition/dysphagia. The patient is on TPN. Will continue. Unable to give tube feeding due to leakage through gastrocutaneous fistula. The patient's NG tube is currently to intermittent suctio n. 8. Acute encephalopathy and advanced dementia. Etiology is toxic metabolic. Continue to monitor. 9. Mineral bone disorder. Continue to monitor calcium and phosphorus levels. 10. Anemia. Will continue to monitor H and H levels. Continue Epogen. 11. Coronary artery disease. Continue medical management. 12. Diabetes. Continue Accu-Cheks and insulin sliding scale. 13. Decubitus wound. Continue wound care. 14. Gastrointestinal and deep venous thrombosis prophylaxis. Continue proton pump inhibitor and he santi. Please note, I spent over 35 minutes of critical care time with this patient. DISPOSITION: Please note, the patient is FULL CODE. I did speak again with the patient's son. He wishes to do everything for the patient at this time. Please note, I am requesting a [place] evaluation. Dictated By: OSMAR HERNANDEZ/RAYSA Conf#: [id number] DID#: [id number]
[2017-03-22] MEDS: FUROSEMIDE 40 MG INJ IV SCH (08:18)
[2017-03-22] MEDS: LINEZOLID 600 MG/D5W (PMX) 300 ML IVPB SCH (08:18)
[2017-03-22] MEDS: CHLORHEXIDINE GLUCONATE 15 ML UD CUP MT SCH (08:18)
[2017-03-22] MEDS: COLLAGENASE 30 GM TUBE TOP SCH (08:19)
[2017-03-22] MEDS: NYSTATIN 30 GM POWDER BTL TOP SCH (08:19)
[2017-03-22] MEDS: MEROPENEM 500 MG/100 ML (PMX) 100 ML IVPB SCH (08:30)
[2017-03-22] MEDS ORDERED: EPOETIN 4000 UNITS/1 ML INJ (ESRD) SC ONE (09:00)
--- NOTE | 2017-03-22 11:19 | CONS ---
Date/Time of Note Date/Time of Note DATE: 03/22/17 TIME: 11:18 Consult Date/Type/Reason Admit Date/Time March 11, 2017 at 22:57 Type of Consultation: Pulmonary Subjective Patient remains unresponsive on mechanical ventilation Possible coffee-ground output from nasogastric tube Currently hemodynamically stable Objective Vital Signs Date Time Temp Pulse Resp B/P Pulse Ox O2 Delivery O2 Flow Rate FiO2 03/22/17 11:00 75 18 120/46 99 Mechanical Ventilator 03/22/17 08:00 30 03/22/17 08:00 97.7 Intake and Output 03/21/17 03/21/17 03/22/17 15:00 23:00 07:00 Intake Total 800 ml 800 ml 400 ml Output Total 410 ml 800 ml 710 ml Balance 390 ml 0 ml -310 ml Exam PHYSICAL EXAMINATION GENERAL: Elderly lady on mechanical ventilation via tracheostomy VITAL SIGNS: see below. HEENT: Pupils equal, round, and reactive to light. Tracheostomy site clean and intact. CARDIAC: S1, S2, 1/6 systolic ejection murmur CHEST: Diminished air entry bilaterally. ABDOMEN: Mildly distended. Bowel sounds present no guarding or rebound G-tube site cellulitis EXTREMITIES: No cyanosis, clubbing edema +1 NEUROLOGIC: Generalized weakness Results/Medications Result Diagram: 03/22/17 0500 03/22/17 0500 Results 24 hrs Laboratory Tests Test 03/21/17 12:37 03/21/17 18:34 03/21/17 23:56 03/22/17 05:00 Bedside Glucose 130 114 118 White Blood Count 7.1 Red Blood Count 2.62 L Hemoglobin 7.9 L Hematocrit 25.5 L Mean Corpuscular Volume 97.3 Mean Corpuscular Hemoglobin 30.2 Mean Corpuscular Hemoglobin Concent 31.0 L Red Cell Distribution Width 17.8 H Platelet Count 138 L Mean Platelet Volume 9.6 Neutrophils % 78.2 H Lymphocytes % 11.9 L Monocytes % 3.6 Eosinophils % 4.2 Basophils % 0.1 Nucleated Red Blood Cells % 0.0 Neutrophils # 5.6 Lymphocytes # 0.9 Monocytes # 0.3 Eosinophils # 0.3 Basophils # 0.0 Nucleated Red Blood Cells # 0.0 Sodium Level 137 Potassium Level 4.1 Chloride Level 103 # Carbon Dioxide Level 28 Anion Gap 10 Blood Urea Nitrogen 59 H Creatinine 2.08 H Glucose Level 101 Calcium Level 8.3 L Phosphorus Level 3.3 Magnesium Level 1.9 Test 03/22/17 06:14 Bedside Glucose 115 Medications Current Medications Bisacodyl (Dulcolax Supp) 10 mg Q48H MT ; Start 03/11/17 at 23:30 Chlorhexidine Gluconate (Peridex) 15 ml BID MT Last administered on 03/22/17 08 :18; Admin Dose 15 ML; Start 03/12/17 at 09:00 Sodium Biphosphate/ Sodium Phosphate 118 ml 118 ml Q72H PRN [place] CONSTIPATION; Start 03/11/17 at 23:30 Meropenem (Merrem 500 Mg/ 100 ml (Pmx)) 100 ml @ 200 mls/hr Q12 IVPB Last administered on 03/22/17 08:30; Admin Dose 200 MLS/HR; Start 03/13/17 at 21:00 Nystatin (Nystatin Powder) 1 applic BID TOP Last administered on 03/22/17 08:19 ; Admin Dose 1 APPLIC; Start 03/13/17 at 15:00 Collagenase (Santyl) 1 applic DAILY TOP Last administered on 03/22/17 08:19; Admin Dose 1 APPLIC; Start 03/13/17 at 15:00 Insulin Aspart (Novolog Insulin Pen) NOVOLOG *MILD* ALGORI... Q6 SC Last administered on 03/21/17 00:17; Admin Dose 1 UNIT; Start 03/14/17 at 12:00 Miscellaneous Information 1 ea NOTE XX ; Start 03/14/17 at 07:30 Glucose (Glutose) 15 gm Q15M PRN PO DECREASED GLUCOSE; Start 03/14/17 at 07:30 Glucose (Glutose) 22.5 gm Q15M PRN PO DECREASED GLUCOSE; Start 03/14/17 at 07: 30 Dextrose (D50w Syringe) 25 ml Q15M PRN IV DECREASED GLUCOSE; Start 03/14/17 at 07:30 Dextrose (D50w Syringe) 50 ml Q15M PRN IV DECREASED GLUCOSE; Start 03/14/17 at 07:30 Glucagon (Glucagen) 1 mg Q15M PRN IM DECREASED GLUCOSE; Start 03/14/17 at 07:30 Glucose 15 gm 15 gm Q15M PRN BUCCAL DECREASED GLUCOSE; Start 03/14/17 at 07:30 Linezolid 300 ml @ 300 mls/hr Q12 IVPB Last administered on 03/22/17 08:18; Admin Dose 300 MLS/HR; Start 03/15/17 at 21:00 Fluconazole/ Sodium Chloride 50 ml @ 50 mls/hr Q24H IVPB Last administered on 23:51; Admin Dose 50 MLS/HR; Start 03/16/17 at 00:00 Total Parenteral Nutrition (Tpn) 1,000 ml @ 50 mls/hr Q20H IV Last administered on 03/21/17 21:20; Admin Dose 50 MLS/HR; Start 03/17/17 at 18:00 Gentamicin Sulfate (Gentamicin Iv Per Pharmacy) GENTAMICIN PER PHARMACY NOTE XX ; Start 03/19/17 at 13:00 Furosemide (Lasix) 40 mg DAILY IV Last administered on 03/22/17 08:18; Admin Dose 40 MG; Start 03/21/17 at 09:00 Epoetin Vasyl (Epogen (Esrd)) 10,000 units TuThSa@17 [place] ; Start 03/23/17 at 17:00 Assessment/Plan Chief Complaint/Hosp Course Additional Assessment/Plan IMP: 1. Status post septic shock likely secondary to urinary tract infection cellulitis. Now off vasopressors 2. Vent dependent respiratory failure. 3. G-tube malfunction with abdominal wall cellulitis. 4. Urinary tract infection. Continue antibiotics per primary team. 5. Encephalopathy at baseline. 6. Dysphagia. 7. Hypernatremia 9. Anemia possible GI bleed RECS: 1. Vent support 2. Levophed to MAP > 65 mm Hg as needed 3. Abx per ID de-escalate 4. Free H20/TNP 5. Palliative Care Consult, primary care team discussed with family wish to continue all aggressive measures 6. Consider transfusion 1 unit packed red blood cells betts evaluation Transfer to telemetry Transfer to telemetry okay from pulmonary standpoint 35 min cc time Problems: JARED CLAIRE MD, [facility] Mar 22, 2017 11:19
--- NOTE | 2017-03-22 12:43 | CONS ---
Date/Time of Note Date/Time of Note DATE: 03/22/17 TIME: 12:41 Assessment/Plan Assessment/Plan Chief Complaint/Hosp Course SUBJECTIVE: No events overnight. The patient looks comfortable, afebrile ANTIMICROBIALS: 1. IV gentamicin. 2. Fluconazole. 3. Zyvox. 4. Meropenem. MICROBIOLOGY: Blood cultures on admission grew MRSA. Repeat blood culture growing enterococcus, Gillian albicans. Urine culture grew Providencia, Proteus mirabilis, Pseudomonas and Klebsiella pneumoniae, ESBL positive stool for Clostridium difficile came back negative. INDWELLINGS: Trach, right IJ triple lumen catheter, Collazo and NG tube. PHYSICAL EXAMINATION: GENERAL: Fragile chronically ill-appearing, elderly woman who is in no distress. HEENT: Head atraumatic, normocephalic. Sclerae anicteric. Buccal mucosa dry. NECK: Supple. Tracheostomy present. CHEST: Rise symmetrical. Breath sounds diminished to bases. HEART: S1, S2. ABDOMEN: Soft. Bowel tones present. EXTREMITIES: Without cyanosis. Bilateral trace edema. ASSESSMENT: 1. Severe sepsis status post shock. 2. Polymicrobial bacteremia. 3. 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 4. Urinary tract infection. 5. Acute on chronic kidney disease. 6. Healthcare-associated pneumonia. 7. Diabetes. 8. Chronic encephalopathy. PLAN: The patient remains stable. Continue on current antibiotics to complete the treatment for bacteremia. Follow GI/surgical recommendations, may need gastrocutaneous fistula closure. SERGE RN Problems: Consultation Date/Type/Reason Admit Date/Time March 11, 2017 at 22:57 Initial Consult Date 03/14/17 Type of Consultation: ID Exam/Review of Systems Vital Signs Vitals Vital Signs Date Time Temp Pulse Resp B/P Pulse Ox O2 Delivery O2 Flow Rate FiO2 03/22/17 12:00 73 03/22/17 12:00 13 107/44 100 Mechanical Ventilator 03/22/17 08:00 30 03/22/17 08:00 97.7 Intake and Output 03/21/17 03/21/17 03/22/17 15:00 23:00 07:00 Intake Total 800 ml 800 ml 400 ml Output Total 410 ml 800 ml 710 ml Balance 390 ml 0 ml -310 ml Results Result Diagram: 03/22/17 0500 03/22/17 0500 Results 24 hrs Laboratory Tests Test 03/21/17 18:34 03/21/17 23:56 03/22/17 05:00 03/22/17 06:14 Bedside Glucose 114 118 115 White Blood Count 7.1 Red Blood Count 2.62 L Hemoglobin 7.9 L Hematocrit 25.5 L Mean Corpuscular Volume 97.3 Mean Corpuscular Hemoglobin 30.2 Mean Corpuscular Hemoglobin Concent 31.0 L Red Cell Distribution Width 17.8 H Platelet Count 138 L Mean Platelet Volume 9.6 Neutrophils % 78.2 H Lymphocytes % 11.9 L Monocytes % 3.6 Eosinophils % 4.2 Basophils % 0.1 Nucleated Red Blood Cells % 0.0 Neutrophils # 5.6 Lymphocytes # 0.9 Monocytes # 0.3 Eosinophils # 0.3 Basophils # 0.0 Nucleated Red Blood Cells # 0.0 Sodium Level 137 Potassium Level 4.1 Chloride Level 103 # Carbon Dioxide Level 28 Anion Gap 10 Blood Urea Nitrogen 59 H Creatinine 2.08 H Glucose Level 101 Calcium Level 8.3 L Phosphorus Level 3.3 Magnesium Level 1.9 Test 03/22/17 12:02 Bedside Glucose 121 Medications Medications Current Medications Bisacodyl (Dulcolax Supp) 10 mg Q48H MT ; Start 03/11/17 at 23:30 Chlorhexidine Gluconate (Peridex) 15 ml BID MT Last administered on 03/22/17 08 :18; Admin Dose 15 ML; Start 03/12/17 at 09:00 Sodium Biphosphate/ Sodium Phosphate 118 ml 118 ml Q72H PRN [place] CONSTIPATION; Start 03/11/17 at 23:30 Meropenem (Merrem 500 Mg/ 100 ml (Pmx)) 100 ml @ 200 mls/hr Q12 IVPB Last administered on 03/22/17 08:30; Admin Dose 200 MLS/HR; Start 03/13/17 at 21:00 Nystatin (Nystatin Powder) 1 applic BID TOP Last administered on 03/22/17 08:19 ; Admin Dose 1 APPLIC; Start 03/13/17 at 15:00 Collagenase (Santyl) 1 applic DAILY TOP Last administered on 03/22/17 08:19; Admin Dose 1 APPLIC; Start 03/13/17 at 15:00 Insulin Aspart (Novolog Insulin Pen) NOVOLOG *MILD* ALGORI... Q6 SC Last administered on 03/21/17 00:17; Admin Dose 1 UNIT; Start 03/14/17 at 12:00 Miscellaneous Information 1 ea NOTE XX ; Start 03/14/17 at 07:30 Glucose (Glutose) 15 gm Q15M PRN PO DECREASED GLUCOSE; Start 03/14/17 at 07:30 Glucose (Glutose) 22.5 gm Q15M PRN PO DECREASED GLUCOSE; Start 03/14/17 at 07: 30 Dextrose (D50w Syringe) 25 ml Q15M PRN IV DECREASED GLUCOSE; Start 03/14/17 at 07:30 Dextrose (D50w Syringe) 50 ml Q15M PRN IV DECREASED GLUCOSE; Start 03/14/17 at 07:30 Glucagon (Glucagen) 1 mg Q15M PRN IM DECREASED GLUCOSE; Start 03/14/17 at 07:30 Glucose 15 gm 15 gm Q15M PRN BUCCAL DECREASED GLUCOSE; Start 03/14/17 at 07:30 Linezolid 300 ml @ 300 mls/hr Q12 IVPB Last administered on 03/22/17 08:18; Admin Dose 300 MLS/HR; Start 03/15/17 at 21:00 Fluconazole/ Sodium Chloride 50 ml @ 50 mls/hr Q24H IVPB Last administered on 23:51; Admin Dose 50 MLS/HR; Start 03/16/17 at 00:00 Total Parenteral Nutrition (Tpn) 1,000 ml @ 50 mls/hr Q20H IV Last administered on 03/21/17 21:20; Admin Dose 50 MLS/HR; Start 03/17/17 at 18:00 Gentamicin Sulfate (Gentamicin Iv Per Pharmacy) GENTAMICIN PER PHARMACY NOTE XX ; Start 03/19/17 at 13:00 Furosemide (Lasix) 40 mg DAILY IV Last administered on 03/22/17 08:18; Admin Dose 40 MG; Start 03/21/17 at 09:00 Epoetin Vasyl (Epogen (Esrd)) 10,000 units TuThSa@17 SC ; Start 03/23/17 at 17:00 DOROTHY CORONADO NP Mar 22, 2017 12:43
--- NOTE | 2017-03-22 16:47 | PN ---
DATE: 03/22/2017 CARDIOLOGY FOLLOWUP SUBJECTIVE: Discussed with staff. Rhythm strip was reviewed. The patient remains with tracheosto my, on the vent. , no evidence of bradycardia. Remains in sinus rhythm, atrial fibrilla tion overnight. Still on the vent, remains nonverbal. MEDICATIONS: Reviewed. PHYSICAL EXAMINATION: VITAL SIGNS: Temperature 97.7, heart rate of 75, blood pressure 123/53, respiratory rate 18, satura ting 97%. HEENT: Normocephalic, atraumatic. Eyes are closed. NECK: Status post tracheostomy. CARDIOVASCULAR: Regular rate and rhythm, systolic murmur. PULMONARY: Anteriorly with no wheezes, mild rhonchi. GASTROINTESTINAL: Soft, nontender. EXTREMITIES: Positive lower extremity edema. NEUROLOGIC: Does not answer my questions. LABORATORY DATA: WBC 7.1, hemoglobin 7.9, platelets of 138. Sodium 137, potassium 4.1, BUN of 59, creatinine 2.08, glucose 101. Magnesium is 1.9. ASSESSMENT AND PLAN: 1. Sepsis and shock. 2. Bacteremia, fungemia. 3. Hypoxemic, hypercapnic respiratory failure, status post tracheostomy, ventilator-dependent. 4. Paroxysmal atrial fibrillation and episode of bradycardia, currently improved. 5. Diabetes. 6. Hypertension. 7. Severe encephalopathy. 8. Anemia. 9. Renal failure. RECOMMENDATIONS: Antibiotic management as per ID recommendation. The patient is on multiple antibi otics. Continue to monitor on telemetry. Respiratory care and vent support will be continued. Nut ritional support will be continued as tolerated. Continue current dose of Lasix. Dictated By: MILAGROS LEE/RAYSA Conf#: [id number] DID#: [id number] CC: OSMAR MONTAGUE DO;*EndCC*
[2017-03-22] MEDS: TPN 1,000 ML IV SCH (17:08)
--- NOTE | 2017-03-22 17:14 | CONS ---
Date/Time of Note Date/Time of Note DATE: 03/22/17 TIME: 17:12 Assessment/Plan Assessment/Plan Additional Assessment/Plan Assessment/Plan Assessment/Plan Additional Assessment/Plan Additional Assessment/Plan IMPRESSION: 1. Malfunctioning gastrostomy tube. Which is removed 2. Cellulitis as well as contact dermatitis around the G-tube site. Stoma is extremely large 3. Vent-dependent respiratory failure. 4. Chronic kidney disease. 5. coffee ground in NGT with anemia, however h/h stable. 6. Parkinson disease. 7. Hypotension, probably related to sepsis. 8. renal failure, urine output improved 9. 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 Septic shock patient has MRSA bacteremia and UTI Plan 1. agree with surgical closure of the GT fistula tract if it cannot close spontaneously. 2. Continue antibiotic and pressor support 3. Once the condition is more stable and the old GT site closed, then we will make an attempt to close the G-tube site and put a new G-tube 4. OK to use NGT for meds 5. Continue vent support 6. If there is acute drop in h/h and continued coffee ground in NG, then will perform EGD for hemostasis with cardiac clearance. 7. Continue TPN for nutrition optimization and will help with GT fistula closure 8. Will make an endoscopic attempt to close the internal stoma of the G-tube hoping to completely stop the leakage of the gastric content. I have asked the GI lab to get OVESCO over the scope clip Consultation Date/Type/Reason Admit Date/Time March 11, 2017 at 22:57 Type of Consultation: ID [id number] HR Interval Summary Subjective hx not possible: pt non-verbal, pt critical Constitutional: no complaints Exam/Review of Systems Vital Signs Vitals Vital Signs Date Time Temp Pulse Resp B/P Pulse Ox O2 Delivery O2 Flow Rate FiO2 03/22/17 16:00 75 03/22/17 15:10 13 100 30 03/22/17 15:00 123/53 Mechanical Ventilator 03/22/17 08:00 97.7 Intake and Output 03/21/17 03/21/17 03/22/17 15:00 23:00 07:00 Intake Total 800 ml 800 ml 400 ml Output Total 410 ml 800 ml 710 ml Balance 390 ml 0 ml -310 ml Exam Cardiovascular: nl pulses, regular rate and rhythm Gastrointestinal: other (Fistula is large and still draining stomach contents. This may be approximately 100-1 50 cc over a period of 24 hours) Musculoskeletal: nl extremities to inspection, nl gait and stance Neurological: unresponsive Results Result Diagram: 03/22/17 0500 03/22/17 0500 Results 24 hrs Laboratory Tests Test 03/21/17 18:34 03/21/17 23:56 03/22/17 05:00 03/22/17 06:14 Bedside Glucose 114 118 115 White Blood Count 7.1 Red Blood Count 2.62 L Hemoglobin 7.9 L Hematocrit 25.5 L Mean Corpuscular Volume 97.3 Mean Corpuscular Hemoglobin 30.2 Mean Corpuscular Hemoglobin Concent 31.0 L Red Cell Distribution Width 17.8 H Platelet Count 138 L Mean Platelet Volume 9.6 Neutrophils % 78.2 H Lymphocytes % 11.9 L Monocytes % 3.6 Eosinophils % 4.2 Basophils % 0.1 Nucleated Red Blood Cells % 0.0 Neutrophils # 5.6 Lymphocytes # 0.9 Monocytes # 0.3 Eosinophils # 0.3 Basophils # 0.0 Nucleated Red Blood Cells # 0.0 Sodium Level 137 Potassium Level 4.1 Chloride Level 103 # Carbon Dioxide Level 28 Anion Gap 10 Blood Urea Nitrogen 59 H Creatinine 2.08 H Glucose Level 101 Calcium Level 8.3 L Phosphorus Level 3.3 Magnesium Level 1.9 Test 03/22/17 12:02 Bedside Glucose 121 Medications Medications Current Medications Bisacodyl (Dulcolax Supp) 10 mg Q48H [place] ; Start 03/11/17 at 23:30 Chlorhexidine Gluconate (Peridex) 15 ml BID MT Last administered on 03/22/17 08 :18; Admin Dose 15 ML; Start 03/12/17 at 09:00 Sodium Biphosphate/ Sodium Phosphate 118 ml 118 ml Q72H PRN [place] CONSTIPATION; Start 03/11/17 at 23:30 Meropenem (Merrem 500 Mg/ 100 ml (Pmx)) 100 ml @ 200 mls/hr Q12 IVPB Last administered on 03/22/17 08:30; Admin Dose 200 MLS/HR; Start 03/13/17 at 21:00 Nystatin (Nystatin Powder) 1 applic BID TOP Last administered on 03/22/17 08:19 ; Admin Dose 1 APPLIC; Start 03/13/17 at 15:00 Collagenase (Santyl) 1 applic DAILY TOP Last administered on 03/22/17 08:19; Admin Dose 1 APPLIC; Start 03/13/17 at 15:00 Insulin Aspart (Novolog Insulin Pen) NOVOLOG *MILD* ALGORI... Q6 SC Last administered on 03/21/17 00:17; Admin Dose 1 UNIT; Start 03/14/17 at 12:00 Miscellaneous Information 1 ea NOTE XX ; Start 03/14/17 at 07:30 Glucose (Glutose) 15 gm Q15M PRN PO DECREASED GLUCOSE; Start 03/14/17 at 07:30 Glucose (Glutose) 22.5 gm Q15M PRN PO DECREASED GLUCOSE; Start 03/14/17 at 07: 30 Dextrose (D50w Syringe) 25 ml Q15M PRN IV DECREASED GLUCOSE; Start 03/14/17 at 07:30 Dextrose (D50w Syringe) 50 ml Q15M PRN IV DECREASED GLUCOSE; Start 03/14/17 at 07:30 Glucagon (Glucagen) 1 mg Q15M PRN IM DECREASED GLUCOSE; Start 03/14/17 at 07:30 Glucose 15 gm 15 gm Q15M PRN BUCCAL DECREASED GLUCOSE; Start 03/14/17 at 07:30 Linezolid 300 ml @ 300 mls/hr Q12 IVPB Last administered on 03/22/17 08:18; Admin Dose 300 MLS/HR; Start 03/15/17 at 21:00 Fluconazole/ Sodium Chloride 50 ml @ 50 mls/hr Q24H IVPB Last administered on 23:51; Admin Dose 50 MLS/HR; Start 03/16/17 at 00:00 Total Parenteral Nutrition (Tpn) 1,000 ml @ 50 mls/hr Q20H IV Last administered on 03/21/17 21:20; Admin Dose 50 MLS/HR; Start 03/17/17 at 18:00 Gentamicin Sulfate (Gentamicin Iv Per Pharmacy) GENTAMICIN PER PHARMACY NOTE XX ; Start 03/19/17 at 13:00 Furosemide (Lasix) 40 mg DAILY IV Last administered on 03/22/17 08:18; Admin Dose 40 MG; Start 03/21/17 at 09:00 Epoetin Vasyl (Epogen (Esrd)) 10,000 units TuThSa@17 SC ; Start 03/23/17 at 17:00 Miscellaneous Information (*Rx Drug Level Order Reminder*) 1 ONCE ONCE XX ; Start 03/23/17 at 05:00; Stop 03/23/17 at 05:01 SYLWIA SY MD Mar 22, 2017 17:14
--- NOTE | 2017-03-22 18:54 | PN ---
Date/Time of Note Date/Time of Note DATE: 03/21/17 TIME: 18:52 Assessment/Plan Lines/Catheters IV Catheter Type (from Nrs): Central Line Collazo in Place (from [facility]): Yes Assessment/Plan Chief Complaint/Hosp Course 1. Large gastrocutaneous fistula with continued leakage. -local care -antibiotics. -supportive -eventual debridement and closure of this to allow healing prior to replacement of the feeding tube at a later time > will await medical optimization prior to considering surgical closure of the site > however, Dr Degroot may attempt at closure by endoscopy 2. Abdominal wall cellulitis secondary to above. Continue antibiotics and local care. 3. Methicillin-resistant Staphylococcus aureus bacteremia. -antibiotics -supportive care & line changes 4. Pelvic deformity with fluid around the pelvic bone on CT scan. We will need to discuss with radiology for possible osteo. 5. Anemia without evidence of acute blood loss. Continue close monitoring and transfuse as needed. 6. Obesity with BMI of 31. Continue nutritional optimization when possible. 7. Sepsis secondary to above. Continue as above. 8. Ventilatory dependent respiratory failure. Continue pulmonary toilet and ventilator support. 9. Acute on chronic renal failure. Continue judicious fluid management and try to avoid nephrotoxic agents. 10. Coronary artery disease. Continue cardiac optimization. 11. Hypertension. Continue nutrition and medication control. 12. Advanced Parkinson's dementia with encephalopathy. Continue medical optimization. 13. Functional quadriplegia. Continue medical optimization, off loading, & nutritional optimization 14. Congestive heart failure. Continue judicious fluid management and cardiac optimization. Thank you Late entry 03/21 Problems: Subjective 24 Hr Interval Summary No f/c. No cough. No sz. No vomiting. Bowel function. No active bleeding. Exam/Review of Systems Vital Signs Vitals Vital Signs Date Time Temp Pulse Resp B/P Pulse Ox O2 Delivery O2 Flow Rate FiO2 03/22/17 18:00 70 13 109/51 100 Mechanical Ventilator 03/22/17 17:10 30 03/22/17 16:00 97.8 Intake and Output 03/21/17 03/21/17 03/22/17 15:00 23:00 07:00 Intake Total 800 ml 800 ml 400 ml Output Total 410 ml 800 ml 710 ml Balance 390 ml 0 ml -310 ml Exam Free Text/Dictation GENERAL: Obese, noncommunicative, ventilated. HEENT: Pupils are sluggish. No scleral icterus. Mucous membranes are moist. NECK: Trach in place, no crepitus, no edema. PULMONARY: Normal respiratory effort. No wheezing. CARDIAC: S1, S2 present. ABDOMEN: Soft, obese. Edema with blanching erythema, especially around the gastrocutaneous fistula, which is large denuded tissue. EXTREMITIES: With edema. VASCULAR: Capillary refill is 3 seconds. NEUROLOGIC: Does not follow commands. SKIN: Puffy rashes. No jaundice. Abdominal wound as above. Other wounds as per nursing notes. Results Result Diagram: 03/22/17 0500 03/22/17 0500 JOCELYN FINE MD Mar 22, 2017 18:54
--- NOTE | 2017-03-22 18:55 | PN ---
Date/Time of Note Date/Time of Note DATE: 03/22/17 TIME: 18:54 Assessment/Plan Lines/Catheters IV Catheter Type (from [facility]): Central Line Collazo in Place (from [facility]): Yes Assessment/Plan Chief Complaint/Hosp Course 1. Large gastrocutaneous fistula with continued leakage. -local care -antibiotics. -supportive -eventual debridement and closure of this to allow healing prior to replacement of the feeding tube at a later time > will await medical optimization prior to considering surgical closure of the site > however, Dr Degroot may attempt at closure by endoscopy 2. Abdominal wall cellulitis secondary to above. Continue antibiotics and local care. 3. Methicillin-resistant Staphylococcus aureus bacteremia. -antibiotics -supportive care & line changes 4. Pelvic deformity with fluid around the pelvic bone on CT scan. We will need to discuss with radiology for possible osteo. 5. Anemia without evidence of acute blood loss. Continue close monitoring and transfuse as needed. 6. Obesity with BMI of 31. Continue nutritional optimization when possible. 7. Sepsis secondary to above. Continue as above. 8. Ventilatory dependent respiratory failure. Continue pulmonary toilet and ventilator support. 9. Acute on chronic renal failure. Continue judicious fluid management and try to avoid nephrotoxic agents. 10. Coronary artery disease. Continue cardiac optimization. 11. Hypertension. Continue nutrition and medication control. 12. Advanced Parkinson's dementia with encephalopathy. Continue medical optimization. 13. Functional quadriplegia. Continue medical optimization, off loading, & nutritional optimization 14. Congestive heart failure. Continue judicious fluid management and cardiac optimization. Thank you Problems: Subjective 24 Hr Interval Summary No f/c. No cough. No sz. No vomiting. Bowel function. No active bleeding. Exam/Review of Systems Vital Signs Vitals Vital Signs Date Time Temp Pulse Resp B/P Pulse Ox O2 Delivery O2 Flow Rate FiO2 03/22/17 18:00 70 13 109/51 100 Mechanical Ventilator 03/22/17 17:10 30 03/22/17 16:00 97.8 Intake and Output 03/21/17 03/21/17 03/22/17 15:00 23:00 07:00 Intake Total 800 ml 800 ml 400 ml Output Total 410 ml 800 ml 710 ml Balance 390 ml 0 ml -310 ml Exam Free Text/Dictation GENERAL: Obese, noncommunicative, ventilated. HEENT: Pupils are sluggish. No scleral icterus. Mucous membranes are moist. NECK: Trach in place, no crepitus, no edema. PULMONARY: Normal respiratory effort. No wheezing. CARDIAC: S1, S2 present. ABDOMEN: Soft, obese. Edema with blanching erythema, especially around the gastrocutaneous fistula, which is large denuded tissue. EXTREMITIES: With edema. VASCULAR: Capillary refill is 3 seconds. NEUROLOGIC: Does not follow commands. SKIN: Puffy rashes. No jaundice. Abdominal wound as above. Other wounds as per nursing notes. Results Result Diagram: 03/22/17 0500 03/22/17 0500 JOCELYN FINE MD Mar 22, 2017 18:54
[2017-03-23] MEDS ORDERED: EPOETIN 10000 UNITS/1 ML INJ (ESRD) SC SCH (17:00)
== END 2017-03-22 19:10 | DRG 919 ==
LOC: E/R 18:44 → TEL 22:57 → ICU 03-12 14:05
PROVIDERS: ADMIT Internal Medicine; ATTEND Internal Medicine
PROC: 5A1955Z Respiratory Ventilation, Greater than 96 Consecutive Hours (ICD-10-PCS; principal; 2017-03-16)
PROC: 02HV33Z Insertion of Infusion Device into Superior Vena Cava, Percutaneous Approach (ICD-10-PCS; 2017-03-16)
PROC: 30233N1 Transfusion of Nonautologous Red Blood Cells into Peripheral Vein, Percutaneous Approach (ICD-10-PCS; 2017-03-16)
DX: T85.79XA Infection and inflammatory reaction due to other internal prosthetic devices, implants and grafts, initial encounter (principal); A41.02 Sepsis due to Methicillin resistant Staphylococcus aureus; N17.0 Acute kidney failure with tubular necrosis; J96.21 Acute and chronic respiratory failure with hypoxia; A41.81 Sepsis due to Enterococcus; K31.6 Fistula of stomach and duodenum; R65.21 Severe sepsis with septic shock; G92 Toxic encephalopathy; N18.4 Chronic kidney disease, stage 4 (severe); I50.43 Acute on chronic combined systolic (congestive) and diastolic (congestive) heart failure; I46.9 Cardiac arrest, cause unspecified; R53.2 Functional quadriplegia; Z99.11 Dependence on respirator [ventilator] status; L03.311 Cellulitis of abdominal wall; E87.0 Hyperosmolality and hypernatremia; N39.0 Urinary tract infection, site not specified; I13.0 Hypertensive heart and chronic kidney disease with heart failure and stage 1 through stage 4 chronic kidney disease, or unspecified chronic kidney disease; T85.598A Other mechanical complication of other gastrointestinal prosthetic devices, implants and grafts, initial encounter; Z93.0 Tracheostomy status; I48.0 Paroxysmal atrial fibrillation; B37.2 Candidiasis of skin and nail; E11.22 Type 2 diabetes mellitus with diabetic chronic kidney disease; G20 Parkinson's disease; F02.80 Dementia in other diseases classified elsewhere, unspecified severity, without behavioral disturbance, psychotic disturbance, mood disturbance, and anxiety; D63.8 Anemia in other chronic diseases classified elsewhere; R40.2433 Glasgow coma scale score 3-8, at hospital admission; B95.2 Enterococcus as the cause of diseases classified elsewhere; B96.4 Proteus (mirabilis) (morganii) as the cause of diseases classified elsewhere; B96.89 Other specified bacterial agents as the cause of diseases classified elsewhere; T68.XXXA Hypothermia, initial encounter
CPT/HCPCS: 36430; 36600; 71010; 74176; 80048; 80053; 80170; 81001; 82728; 82803; 82962; 83540; 83605; 83690; 83735; 84100; 84145; 84484; 85014; 85018; 85025; 86850; 86900; 86901; 86920; 87040; 87075; 87081; 87086; 93005; 93306; 94002; 94003; 96374; 96375; J1940; J0171; J0461; J0692; J0885; J1265; J1450; J1580; J1644; J1815; J1956; J2185; J2543; J3370; J3475; J3480; J7030; J7042; J7060; J7070; P9016; Q4081

== ENCOUNTER 2017-04-05 11:05 | Day surgery (SDC) | payer MEDICARE, OTHER ==
[~2017-04-05 11:05] MED LIST changes: +NEPH GTB; -POTA20PA23 GTB
[2017-04-08] VITALS (10 sets, daily range): BP systolic 108–136; BP diastolic 50–85; PULSE 83; RESP 12
[2017-04-08] MEDS ORDERED: SUGAMMADEX SODIUM 200 MG/2 ML VIAL IV ONE (14:22)
[2017-04-08] MEDS ORDERED: FENTAnyl 50 MCG/ML VIAL ONE (14:28)
== END 2017-04-05 13:00 | disposition other institution (70) ==
LOC: SDS 11:05
PROVIDERS: ATTEND Internal Medicine Gastroenterology
DX: K94.20 Gastrostomy complication, unspecified (principal); Y84.8 Other medical procedures as the cause of abnormal reaction of the patient, or of later complication, without mention of misadventure at the time of the procedure; Z53.9 Procedure and treatment not carried out, unspecified reason

== ENCOUNTER 2017-04-08 11:01 | Day surgery (SDC) | payer OTHER ==
[~2017-04-08] VITALS: Ht 170.2 cm; Wt 96.5 kg
[~2017-04-08 11:01] MED LIST changes: +EPHEDrine SULFATE 50 MG/5 ML SYG ONE; +FENTAnyl 50 MCG/ML VIAL ONE; +ROCURONIUM 50 MG INJ ONE; +SUGAMMADEX SODIUM 200 MG/2 ML VIAL IV ONE
[2017-04-08 14:55] VITALS: BP 119/45; PULSE 86; RESP 12
[2017-04-08] MEDS ORDERED: ONDANSETRON 4 MG INJ IV PRN (15:30)
--- NOTE | 2017-04-09 04:26 | GILP ---
DATE OF PROCEDURE: 04/08/2017 PROCEDURE PERFORMED: Esophagogastroduodenoscopy with closure of gastrocutaneous fistula. INDICATION: An 86-year-old female undergoing this procedure for a large gastrostomy stoma and also upper GI bleeding requiring 2 units of packed cell RBC transfusion. The purpose of this procedure i s to evaluate the upper GI tract and find out the cause of GI bleeding and also perform therapeutic endoscopy by closing the internal stoma of the gastrocutaneous fistula. INFORMED CONSENT: The risk of the procedure, related and unrelated complications, anesthetic risks, and alternatives discussed. Informed consent was obtained. DESCRIPTION OF PROCEDURE: The patient was brought to the GI lab, sedated by the anesthesiologist. After optimal sedation, scope was passed with much ease into esophagus. The patient had an esophage al ulceration in the distal part. The ulcer created the impression of NG tube. It was linear, tubu lar in fashion, and it was deep. Scope was passed further down into stomach. The patient was not h olding the air. It was leaking out through the gastrocutaneous fistula. At that point, I asked the inventory assistant to close together the external stoma with a 4 x 4. After closing that, we entered into t he duodenum which was normal. The internal stoma identified. The internal stoma then was cauterize d with APC in all the quadrants in order to disrupt the endothelial lining so that the fistula can c lose. Six endoclips successfully deployed. After that, the leakage through the gastrocutaneous fis vipul of air was very minimal. The stomach could maintain the distention without any support from th e inventory assistant. Scope was then removed with good patient tolerance. IMPRESSION 1. Deep esophageal ulceration created by the NG tube as the cause of bleeding. 2. Large internal stoma, successfully coagulated with APC and then closed with 6 endoclips. 3. Hospital did not have orthoscope clip available. PLAN: To discontinue NG tube. Continue PPI. Continue TPN. We will look at the external stoma. I f the drainage is reduced or it stops over a period of 1 week and we feel the gastrocutaneous fistul a is completely closed, then after 2 weeks we will make an attempt to put a new G-tube. Dictated By: SYLWIA ROMANO/RAYSA Conf#: [id number] DID#: [id number] CC: OSMAR MONTAGUE DO;*End*
== END 2017-04-08 19:14 | disposition other institution (70) ==
LOC: GIL 11:01
PROVIDERS: ATTEND Internal Medicine Gastroenterology
DX: K31.6 Fistula of stomach and duodenum (principal); K22.10 Ulcer of esophagus without bleeding; I25.10 Atherosclerotic heart disease of native coronary artery without angina pectoris; F03.90 Unspecified dementia, unspecified severity, without behavioral disturbance, psychotic disturbance, mood disturbance, and anxiety; Z99.11 Dependence on respirator [ventilator] status; N18.4 Chronic kidney disease, stage 4 (severe); E03.9 Hypothyroidism, unspecified; G20 Parkinson's disease; R13.10 Dysphagia, unspecified; Z79.02 Long term (current) use of antithrombotics/antiplatelets
CPT/HCPCS: J3010

== ENCOUNTER 2017-04-26 12:55 | Day surgery (SDC) | payer OTHER ==
[2017-04-26] VITALS (8 sets, daily range): BP systolic 115–128; BP diastolic 35–46; PULSE 68–71; RESP 18–23; Ht 170.2 cm; Wt 85.0 kg
[~2017-04-26] VITALS: Ht 170.2 cm; Wt 85.0 kg
[~2017-04-26 12:55] MED LIST changes: -FENTAnyl 50 MCG/ML VIAL ONE; -ROCURONIUM 50 MG INJ ONE; -SUGAMMADEX SODIUM 200 MG/2 ML VIAL IV ONE
[2017-04-26] MEDS ORDERED: MIDAZOLAM 1 MG/ML 2 ML INJ ONE (15:30)
[2017-04-26] MEDS ORDERED: PROPOFOL 0 ML ONE (15:30)
[2017-04-26] MEDS ORDERED: FENTAnyl 50 MCG/ML VIAL ONE (15:30)
--- NOTE | 2017-05-15 05:42 | OPR ---
DATE OF OPERATION: 04/26/2017 PROCEDURE: Percutaneous endoscopic jejunostomy. 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 The risks of the procedure related complications, and anesthetic risks and alternatives were explained to the son and informed consent was obtained. DESCRIPTION OF PROCEDURE: The patient was brought to the OR room number 3, placed in the supine position. After optimal sedation the scope was passed as much into the esophagus and advanced further down into stomach. The gastric cutaneous fistula opening was closed with a 4 x 4, so that stomach can hold air and we tried transillumination and digital palpation but no way we could find any area that we can put a G-tube. The only place where the transillumination was possible was at the old G-tube site. So at this point, we decided to use the old G-tube site which had reduced in size about 70 percent, so we thought we could pass a 22-English gastrojejunostomy tube. A 20-English gastrojejunostomy tube was inserted. The loop of the gastrojejunostomy tube was grasped with an Endo clip and the scope and the jejunostomy tube was advanced all the way into the jejunum and the loop was clipped to the mucosa. Scope was removed. There was absolutely no loop identified in the stomach, and the patient tolerated the procedure very well. IMPRESSION: Successful placement of jejunostomy tube. PLAN: To resume feeding through the jejunostomy port. If despite this patient continues to have leakage, then the best option would be surgical option. Dictated By: Pedro Degroot MD /junie/rasheeda /Document#: [id number]
== END 2017-04-26 16:00 | disposition short-term general hospital (02) ==
LOC: GIL 12:55
PROVIDERS: ATTEND Internal Medicine Gastroenterology
DX: R13.10 Dysphagia, unspecified (principal); G31.83 Neurocognitive disorder with Lewy bodies; F02.80 Dementia in other diseases classified elsewhere, unspecified severity, without behavioral disturbance, psychotic disturbance, mood disturbance, and anxiety; I25.10 Atherosclerotic heart disease of native coronary artery without angina pectoris; E11.22 Type 2 diabetes mellitus with diabetic chronic kidney disease; I12.9 Hypertensive chronic kidney disease with stage 1 through stage 4 chronic kidney disease, or unspecified chronic kidney disease; N18.4 Chronic kidney disease, stage 4 (severe); E78.5 Hyperlipidemia, unspecified
CPT/HCPCS: 44372; J2250; J3010

== ENCOUNTER 2017-05-06 13:12 | Inpatient (IN) | payer MEDICARE, OTHER ==
[~2017-05-06] VITALS: Ht 165.1 cm; Wt 91.3 kg
[~2017-05-06 13:12] MED LIST changes: -EPHEDrine SULFATE 50 MG/5 ML SYG ONE
[2017-05-06 14:45] LABS: ADD SCAN DIFF NO
[2017-05-06 15:07] LABS: INR 1.12; PROTIME 14.4 Sec (12.2-14.2); PT RATIO 1.1
[2017-05-06 15:08] LABS: PARTIAL THROMBOPLASTIN TIME 37.5 Sec (25.0-35.0)
[2017-05-06 15:11] LABS: ALBUMIN 2.8 g/dl (3.3-4.9); ALBUMIN/GLOBULIN RATIO 0.52; BILIRUBIN,INDIRECT 0.1 mg/dl (0-1.1); BILIRUBIN,TOTAL 0.1 mg/dl (0.2-1.3); CALCIUM 9.2 mg/dl (8.4-10.2); CREATININE 2.51 mg/dl (0.44-1.00); TOTAL PROTEIN 8.1 g/dl (6.1-8.1)
[2017-05-06 15:21] LABS: TROPONIN-I 0.017 ng/ml (0.00-0.12)
[2017-05-06] MEDS ORDERED: DEXTROSE 50% 50 ML SYRINGE IV ONE (15:30)
--- NOTE | 2017-05-06 15:31 | RADRPT ---
PROCEDURE: XR Chest. CLINICAL INDICATION: Shortness of breath. TECHNIQUE: Single frontal view. COMPARISON: 04/24/2017. FINDINGS: The right arm PICC line and tracheostomy tube are in satisfactory position. Mild pulmonary edema is unchanged. There is mild left basilar atelectasis, slightly worse than seen previously. The lungs are otherwise clear. The heart size is normal. There is calcification in the aorta consistent with atherosclerosis. There are small bilateral pleural effusions. There is no pneumothorax. IMPRESSION: 1. Unchanged pulmonary edema. 2. Mild left basilar atelectasis, worse than seen previously. 3. No other new abnormality. RPTAT: QQ .Sourav Ramirez MD, MD Date Time Electronically viewed and signed by .Sourav Ramirez MD, MD on 05/06/2017 15:30 .R/
[2017-05-06 15:37] LABS: ABNORMAL IP MESSAGE 1; BASOPHILS % 0.4 % (0.0-2.0); EOSINOPHILS # 0.6 10^3/ul (0.0-0.5); EOSINOPHILS % 8.7 % (0.0-7.0); HEMATOCRIT 31.1 % (37.0-47.0); HEMOGLOBIN 8.7 g/dl (12.0-16.0); LYMPHOCYTES # 0.8 10^3/ul (0.8-2.9); LYMPHOCYTES % 10.5 % (15.0-51.0); MEAN CORPUSCULAR HEMOGLOBIN 28.2 pg (29.0-33.0); MEAN CORPUSCULAR VOLUME 100.6 fl (82.0-101.0); MEAN PLATELET VOLUME 10.8 fl (7.4-10.4); MONOCYTE # 0.4 10^3/ul (0.3-0.9); MONOCYTES % 5.9 % (0.0-11.0); NEUTROPHIL # 5.4 10^3/ul (1.6-7.5); NEUTROPHILS % 74.1 % (39.0-77.0); PLATELET COUNT 190 10^3/UL (140-415); RED BLOOD COUNT 3.09 10^6/ul (4.20-5.40); RED CELL DISTRIBUTION WIDTH 19.8 % (11.5-14.5); WHITE BLOOD COUNT 7.3 10^3/ul (4.8-10.8)
[2017-05-06] MEDS ORDERED: ATOR10TA65 GTB (15:40)
[2017-05-06] MEDS ORDERED: NOVO3I SC (15:44)
[2017-05-06 16:03] LABS: INR 1.07; PROTIME 13.9 Sec (12.2-14.2); PT RATIO 1.1
[2017-05-06 16:04] LABS: PARTIAL THROMBOPLASTIN TIME 37.5 Sec (25.0-35.0)
[2017-05-06] MEDS ORDERED: DEXTROSE 5%-0.45% NACL 1,000 ML IV ONE (16:39)
--- NOTE | 2017-05-06 16:39 | ERA ---
ER Documentation Chief Complaint Date/Time DATE: 05/06/17 TIME: 16:34 Chief Complaint GWENDOLYN FROM [facility] FOR G/J TUBE REPLACEMENT HPI This is a 86-year-old female presents to the emergency room for evaluation of a gastrojejunal tube. The patient had removal of the gastrojejunal tube on accident. The patient was unable to give a history secondary to her clinical condition. She is a patient suffers from hypertension, end-stage renal disease , chronic respiratory failure and is nonverbal. ROS All systems reviewed and are negative except as per history of present illness. Medications Home Meds Reported Medications Insulin Aspart* (Novolog Insulin Pen*) 100 Unit/Ml Soln, 0 SC .SLIDING SCALE AC , EA IF 0-150=0 UNITS,151-200=2 UNITS,201-250=4 UNITS,251-300=6 UNITS,301-350=8 UNITS,351-400=10 UNITS ABOVE 400=12 UNITS AND CALL 05/06/17 Atorvastatin Calcium (Atorvastatin Calcium) 10 Mg Tablet, 10 MG GTB QHS, #30 TAB 05/06/17 Multivit/Ca Carb/B Cmplx/Fa* (Radhika-John*) 1 Tab Tab, 1 TAB GTB DAILY, TAB 03/11/17 Acetaminophen* (Tylenol*) 325 Mg Tablet, 650 MG GTB Q4H Y for PAIN LEVEL 0-10/10 , TAB FOR TEMP ABOVE 100 DEGREES F. 02/18/17 Carbidopa-Levodopa* (Sinemet*) 25-100 Mg Tab, 1 TAB GTB TID, TAB 02/18/17 Clopidogrel Bisulfate* (Clopidogrel Bisulfate*) 75 Mg Tablet, 75 MG GTB DAILY, # 30 TAB 02/18/17 Memantine* (Namenda*) 5 Mg Tablet, 5 MG GTB QAM, #30 TAB 02/18/17 Pramipexole* (Pramipexole*) 0.5 Mg Tablet, 0.5 MG GTB DAILY, TAB 02/18/17 Magnesium Hydroxide* (Milk Of Magnesia*) 400 Mg/5 Ml Oral.susp, 30 ML GTB Q24H, ML 02/18/17 Metoprolol Tartrate* (Lopressor*) 25 Mg Tab, 25 MG GTB Q12H, #60 TAB HOLD FOR SBP BELOW 110 OR HR BELOW 60 02/18/17 Furosemide* (Furosemide*) 40 Mg Tablet, 40 MG GTB DAILY, TAB 02/18/17 Heparin Sodium,Porcine/Pf (HEPARIN SOD 5,000 UNIT/ 0.5 ML) 5,000 Unit/0.5 Ml Vial, 5000 UNIT IJ BID, VIAL 02/18/17 Folic Acid* (Folic Acid*) 1 Mg Tablet, 1 MG GTB DAILY, TAB 02/18/17 Sod Phosphate/Sod Biphosphate* (Fleet* Enema Pediatric) 66.6 Ml Soln, 118 ML [place] Q72H Y for CONSTIPATION, ENEMA 02/18/17 Ferrous Sulfate* (Ferrous Sulfate*) 325 Mg Tabec, 325 MG GTB BID, TAB 02/18/17 Bisacodyl* (Bisacodyl*) 10 Mg Supp, 10 MG [place] Q48H, SUPP 02/18/17 Donepezil* (Donepezil*) 10 Mg Tablet, 10 MG GTB QHS, #30 TAB 02/18/17 Citric Acid/Sodium Citrate (Oracit Solution 30 Ml) 30 Ml Solution, 30 ML GTB BID 02/18/17 Lactobacillus Rhamnosus* (Culturelle*) 1 Each Cap.sprink, 1 CAP GTB QHS, CAP 02/18/17 Discontinued Reported Medications Simvastatin* (Simvastatin*) 5 Mg Tablet, 5 MG GTB QHS, #30 TAB 02/18/17 Ascorbic Acid (Vitamin C) 500 Mg Tab, 500 MG GTB BID, TAB 02/18/17 Chlorhexidine Gluconate (Periogard) 473 Ml Mouthwash, 15 ML MM BID, BOTTLE 02/18/17 Epoetin Vasyl (Epogen) 10,000 Units/Ml Soln, 31559 UNITS SC DAILY, VIAL MON,WED,FRI. HOLD IF HGB ABOVE 12 02/18/17 Docusate Sodium* (Docusate Sodium*) 100 Mg Capsule, 100 MG GTB BID, #60 CAP 02/18/17 Allergies Allergies: Coded Allergies: No Known Allergies (Verified Allergy, Unknown, 05/06/17) PMhx/Soc Hx Neurological Disorder: Yes (PVD, ENCEPHALOPATHY) Hx Respiratory Disorders: Yes (RESPIRATORY FAILURE, PNA ON VETILATOR) Hx Cardiac Disorders: Yes (CAD,CHF) Hx Psychiatric Problems: Yes (DEMENTIA.) Hx Miscellaneous Medical Probl: No Hx Substance Use: No Smoking Status: Unknown if ever smoked Physical Exam Vitals Vital Signs Date Time Temp Pulse Resp B/P Pulse Ox O2 Delivery O2 Flow Rate FiO2 05/06/17 14:31 4 05/06/17 14:16 94.2 65 24 108/34 100 Room Air 05/06/17 13:35 95.7 66 23 125/47 100 Physical Exam INITIAL VITAL SIGNS: Reviewed by me GENERAL: The patient is well developed and appropriate for usual state of health in no apparent distress HEENT: Pupils equal, round, and reactive to light. EOMI. There is no scleral icterus. NECK: Tracheostomy tube in place C-spine is soft and supple, there is no meningismus. There is no cervical lymphadenopathy. LUNGS: Clear to auscultation bilaterally. There are no rales, wheezes or rhonchi. HEART: Regular rate and rhythm, no murmurs, clicks, rubs or gallops. ABDOMEN: Gastric ostomy site patent with foul-smelling bilious discharge, gastrojejunal tube completely dislodged, soft, non-tender, non-distended. There are bowel sounds in all four quadrants. No rebound or guarding. EXTREMITIES: There is no peripheral cyanosis or edema. No focal swelling or erythema. NEUROLOGICAL: Contracted extremities SKIN: There is no apparent rash or petechiae. HEME/LYMPHATIC: There is no evidence of excessive bruising or lymphedema. PSYCHIATRIC: The patient does not appear anxious or depressed. Result Diagram: 05/06/17 1425 05/06/17 1425 Results 24 hrs Laboratory Tests Test 05/06/17 14:25 05/06/17 15:00 05/06/17 15:36 05/06/17 15:40 White Blood Count 7.310^3/ul Red Blood Count 3.0910^6/ul Hemoglobin 8.7g/dl Hematocrit 31.1% Mean Corpuscular Volume 100.6fl Mean Corpuscular Hemoglobin 28.2pg Mean Corpuscular Hemoglobin Concent 28.0g/dl Red Cell Distribution Width 19.8% Platelet Count 63307^3/UL Mean Platelet Volume 10.8fl Neutrophils % 74.1% Lymphocytes % 10.5% Monocytes % 5.9% Eosinophils % 8.7% Basophils % 0.4% Nucleated Red Blood Cells % 0.0/100WBC Neutrophils # 5.410^3/ul Lymphocytes # 0.810^3/ul Monocytes # 0.410^3/ul Eosinophils # 0.610^3/ul Basophils # 0.010^3/ul Nucleated Red Blood Cells # 0.010^3/ul Prothrombin Time 14.4Sec 13.9Sec Prothrombin Time Ratio 1.1 1.1 INR International Normalized Ratio 1.12 1.07 Activated Partial Thromboplast Time 37.5Sec 37.5Sec Sodium Level 152mmol/L Potassium Level 5.0mmol/L Chloride Level 109mmol/L Carbon Dioxide Level 27mmol/L Anion Gap 21 Blood Urea Nitrogen 84mg/dl Creatinine 2.51mg/dl Glucose Level 68mg/dl Lactic Acid Level 1.0mmol/L 1.0mmol/L Calcium Level 9.2mg/dl Total Bilirubin 0.1mg/dl Direct Bilirubin 0.00mg/dl Indirect Bilirubin 0.1mg/dl Aspartate Amino Transf (AST/SGOT) 106IU/L Alanine Aminotransferase (ALT/SGPT) 24IU/L Alkaline Phosphatase 185IU/L Troponin I 0.017ng/ml Total Protein 8.1g/dl Albumin 2.8g/dl Globulin 5.30g/dl Albumin/Globulin Ratio 0.52 Bedside Glucose 69mg/dL Test 05/06/17 16:20 Bedside Glucose 147mg/dL Current Medications Medications (Trade) Dose Ordered Sig/Love Route PRN Reason Start Time Stop Time Status Last Admin Dose Admin Dextrose (D50w Syringe) 50 ml ONCE ONCE IV 05/06/17 15:30 05/06/17 15:32 DC 05/06/17 15:37 Procedures/MDM Chest X-ray 1V Interpreted by me: Soft Tissue: No acute abnormalities Bones: No acute abnormalities Mediastinum/Cardiac Silhouette/Lungs: [No acute abnormalities] EKG: Rate/Rhythm: [Normal Sinus Rhythm] QRS, ST, T-waves: [No changes consistent w/ acute ischemia] Impression: [No evidence of ischemia or arrhythmia] This 86-year-old female presents to the emergency room from a nursing facility for evaluation of a pulled gastrojejunal tube. I was unable to obtain any history from this patient secondary to her chronic debility. Previous medical records do show this patient was supposed to have a PEG tube placed and underwent a gastrojejunal tube placement by Dr. bower. This too was completely dislodged. The patient was found to have a rectal temperature of 94. The patient did undergo septic workup in the emergency room. She was found to be hypoglycemic with a blood sugar of 68. The patient was given D50. The patient will be started on D5 half-normal saline with a rate of 100 cc an hour. I have spoken to Dr. Pily Schmid who agrees to evaluate this patient. The patient will be placed in for admission at this time under the care of Dr. Rosas on the telemetry floor. Critical Care: Excluding all billable procedures Time: 33 minutes Treatments/Evaluations: Close monitoring and treatment of unstable vital signs, cardiorespiratory, and neurologic status, while maintaining tight balance of fluid, respiratory, and cardiac interventions. Departure Diagnosis: Primary Impression: Encounter for gastrojejunal tube placement Additional Impressions: Hypoglycemia Renal insufficiency Normocytic anemia Condition: Stable JOSHUA GARCIA DO May 06, 2017 16:39
[2017-05-06] MEDS ORDERED: ACETAMINOPHEN 325 MG TAB PO PRN (17:00)
[2017-05-06] MEDS: METOPROLOL 25 MG TAB GTB SCH (17:00)
[2017-05-06] MEDS: MAGNESIUM HYDROXIDE 30ML CUP GTB SCH (17:00)
[2017-05-06] MEDS ORDERED: ONDANSETRON 4 MG INJ IV PRN (17:00)
[2017-05-06] MEDS: BISACODYL 10 MG SUPP PR SCH (17:00)
[2017-05-06] MEDS: DEXTROSE 5% 1,000 ML IV SCH (17:00)
[2017-05-06] MEDS ORDERED: NA PHOSPHATE/BIPHOS 66.6 ML ENEMA PR PRN (17:00)
[2017-05-06] MEDS: DONEPEZIL 10 MG TAB GTB SCH (20:08)
[2017-05-06] MEDS: LACTOBACILLUS RHAMNOSUS CAP GTB SCH (20:08)
[2017-05-06] MEDS: CARBIDOPA/LEVODOPA (25/100) TAB GTB SCH (20:08)
[2017-05-06] MEDS: ATORVASTATIN 10 MG TAB GTB SCH (20:08)
[2017-05-06] MEDS: CITRIC ACID/NA CITRATE 30 ML CUP PO SCH (20:09)
[2017-05-06] MEDS: FERROUS SULFATE (EC) 325 MG TAB PO SCH (20:09)
[2017-05-06 20:44] LABS: TROPONIN-I 0.016 ng/ml (0.00-0.12)
[2017-05-06] MEDS: HEPARIN 5,000 UNIT/0.5 ML VIAL SC SCH (21:13)
[2017-05-07 04:30] LABS: CK-MB 15.9 ng/ml (0.0-2.4); TROPONIN-I 0.024 ng/ml (0.00-0.12)
[2017-05-07] MEDS: DEXTROSE 5% 1,000 ML IV SCH (05:00)
[2017-05-07] MEDS: METOPROLOL 25 MG TAB GTB SCH ×2 (05:00→23:00)
[2017-05-07 05:43] LABS: ADD SCAN DIFF NO
[2017-05-07 05:44] LABS: ABNORMAL IP MESSAGE 1; BASOPHILS % 0.4 % (0.0-2.0); EOSINOPHILS # 0.7 10^3/ul (0.0-0.5); EOSINOPHILS % 12.5 % (0.0-7.0); HEMATOCRIT 30.2 % (37.0-47.0); HEMOGLOBIN 8.6 g/dl (12.0-16.0); LYMPHOCYTES # 0.7 10^3/ul (0.8-2.9); LYMPHOCYTES % 12.1 % (15.0-51.0); MEAN CORPUSCULAR HEMOGLOBIN 28.7 pg (29.0-33.0); MEAN CORPUSCULAR HGB CONC 28.5 g/dl (32.0-37.0); MEAN CORPUSCULAR VOLUME 100.7 fl (82.0-101.0); MEAN PLATELET VOLUME 10.4 fl (7.4-10.4); MONOCYTE # 0.4 10^3/ul (0.3-0.9); MONOCYTES % 6.4 % (0.0-11.0); NEUTROPHIL # 3.7 10^3/ul (1.6-7.5); NEUTROPHILS % 67.9 % (39.0-77.0); PLATELET COUNT 182 10^3/UL (140-415); RED CELL DISTRIBUTION WIDTH 19.5 % (11.5-14.5); WHITE BLOOD COUNT 5.5 10^3/ul (4.8-10.8)
[2017-05-07 06:11] LABS: CALCIUM 9.2 mg/dl (8.4-10.2); CREATININE 2.43 mg/dl (0.44-1.00); POTASSIUM 4.6 mmol/L (3.5-5.1)
[2017-05-07] MEDS: MEMANTINE 5 MG TAB GTB SCH (09:00)
[2017-05-07] MEDS: MULTIVIT/CA CARB/B CMPLX/FA TAB GTB SCH (09:00)
[2017-05-07] MEDS: PRAMIPEXOLE 0.25 MG TAB GTB SCH (09:00)
[2017-05-07] MEDS: CLOPIDOGREL 75 MG TAB GTB SCH (09:00)
[2017-05-07] MEDS: FUROSEMIDE 40 MG/4 ML CUP GTB SCH (09:00)
[2017-05-07] MEDS: FOLIC ACID 1 MG TAB GTB SCH (09:00)
--- NOTE | 2017-05-07 18:46 | CONS ---
Date/Time of Note Date/Time of Note DATE: 05/07/17 TIME: 18:43 Assessment/Plan Assessment/Plan Additional Assessment/Plan 1. Dislodged of the GJ tube accidentally 2. Vent dependent respiratory failure 3. Chronic encephalopathy 4. Renal failure 5. Peripheral vascular disease 6. Anemia Plan We will try to put another GJ tube tomorrow if GI lab is able to accommodate. Continue present care Consultation Date/Type/Reason Admit Date/Time Hx of Present Illness This 69-year-old female with a history of CVA vent dependent respiratory failure , was brought to the emergency room for the dislodgment of the GJ tube. Patient is nonverbal and no information can be obtained. No GI bleeding no chest pain no shortness of breath. Past Medical History Medical History: congestive heart failure, renal disease Past Surgical History Past Surgical Hx: endoscopy Family History Significant Family History: renal disease, vascular disease Social History Alcohol Use: none Smoking Status: Unknown if ever smoked Drug Use: none Exam/Review of Systems Vital Signs Vitals Vital Signs Date Time Temp Pulse Resp B/P Pulse Ox O2 Delivery O2 Flow Rate FiO2 05/07/17 18:40 63 20 94/52 98 Room Air 05/07/17 18:19 5.0 28 05/07/17 17:59 97.3 Exam Constitutional: alert, oriented, well developed Psych: nl mood/affect, no complaints Head: atraumatic, normocephalic Eyes: EOMI, PERRL, nl conjunctiva, nl lids, nl sclera ENMT: nl external ears & nose, nl lips & teeth, nl nasal mucosa & septum Neck: non-tender, supple Respiratory: clear to auscultation, normal air movement Cardiovascular: nl pulses, regular rate and rhythm Gastrointestinal: nl liver, spleen, non-tender, soft Musculoskeletal: nl extremities to inspection, nl gait and stance Extremities: normal pulses 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, nl mental status, nl speech, nl strength Skin: nl turgor, No rash or lesions Lymph: nl lymph nodes Results Result Diagram: 05/07/17 0531 05/07/17 0531 Results 24 hrs Laboratory Tests Test 05/06/17 19:09 05/06/17 19:56 05/06/17 21:34 05/07/17 03:00 Bedside Glucose 97 97 Creatine Kinase 595 H 562 H Creatine Kinase Index 2.5 2.8 Creatinine Kinase MB (Mass) 15.00 H 15.90 H Troponin I 0.016 0.024 Test 05/07/17 05:28 05/07/17 05:31 05/07/17 07:32 05/07/17 08:46 Bedside Glucose 80 84 78 White Blood Count 5.5 # Red Blood Count 3.00 L Hemoglobin 8.6 L Hematocrit 30.2 L Mean Corpuscular Volume 100.7 Mean Corpuscular Hemoglobin 28.7 L Mean Corpuscular Hemoglobin Concent 28.5 L Red Cell Distribution Width 19.5 H Platelet Count 182 Mean Platelet Volume 10.4 Neutrophils % 67.9 Lymphocytes % 12.1 L Monocytes % 6.4 Eosinophils % 12.5 H Basophils % 0.4 Nucleated Red Blood Cells % 0.0 Neutrophils # 3.7 Lymphocytes # 0.7 L Monocytes # 0.4 Eosinophils # 0.7 H Basophils # 0.0 Nucleated Red Blood Cells # 0.0 Sodium Level 149 H Potassium Level 4.6 Chloride Level 109 Carbon Dioxide Level 26 Anion Gap 19 H Blood Urea Nitrogen 81 H Creatinine 2.43 H Glucose Level 84 Calcium Level 9.2 Phosphorus Level 7.0 H Magnesium Level 2.0 Test 05/07/17 08:50 05/07/17 09:51 05/07/17 12:36 05/07/17 16:10 Bedside Glucose 77 84 87 96 Medications Medications Current Medications Atorvastatin Calcium (Lipitor) 10 mg QHS GTB ; Start 05/06/17 at 21:00 Bisacodyl (Dulcolax Supp) 10 mg Q48H [place] ; Start 05/06/17 at 17:00 Carbidopa/Levodopa (Sinemet (25/ 100)) 1 tab TID GTB ; Start 05/06/17 at 21:00 Clopidogrel Bisulfate (plaVIX) 75 mg DAILY GTB ; Start 05/07/17 at 09:00 Donepezil HCl (Aricept) 10 mg QHS GTB ; Start 05/06/17 at 21:00 Ferrous Sulfate (Ferrous Sulfate (Ec)) 325 mg BID PO ; Start 05/06/17 at 21:00 Folic Acid (Folic Acid) 1 mg DAILY GTB ; Start 05/07/17 at 09:00 Furosemide (Lasix) 40 mg DAILY GTB ; Start 05/07/17 at 09:00 Lactobacillus Acidophilus/ Rhamnosus (Culturelle) 1 cap QHS GTB ; Start at 21:00 Magnesium Hydroxide (Milk Of Mag) 30 ml Q24H GTB ; Start 05/06/17 at 17:00 Memantine (Namenda) 5 mg QAM GTB ; Start 05/07/17 at 09:00 Metoprolol Tartrate (Lopressor) 25 mg Q12H GTB ; Start 05/06/17 at 17:00 Multivit/Ca Carb/ B Cmplx/FA/Prenat (Radhika-John) 1 tab DAILY GTB ; Start at 09:00 Pramipexole (Mirapex) 0.5 mg DAILY GTB ; Start 05/07/17 at 09:00 Sodium Biphosphate/ Sodium Phosphate (Fleet Enema Pediatric) 118 ml Q72H PRN [place] CONSTIPATION; Start 05/06/17 at 17:00 Citric Acid/ Sodium Citrate (Bicitra) 30 ml BID PO ; Start 05/06/17 at 21:00 Heparin Sodium (Porcine) 5000 unit 5,000 unit BID SC Last administered on 21:13; Admin Dose 5,000 UNIT; Start 05/06/17 at 21:00 Dextrose (D5W) 1,000 ml @ 50 mls/hr Q20H IV Last administered on 05/07/17 05: 00; Admin Dose 50 MLS/HR; Start 05/06/17 at 17:00 SYLWIA SY MD May 07, 2017 18:46
[2017-05-07 20:21] VITALS: TEMP 96.8
[2017-05-07 22:09] VITALS: BP 110/53; PULSE 60; RESP 24
[2017-05-07 23:00] VITALS: PULSE 60
[2017-05-07] MEDS: MAGNESIUM HYDROXIDE 30ML CUP GTB SCH (23:00)
[2017-05-07] MEDS: ATORVASTATIN 10 MG TAB GTB SCH (23:00)
[2017-05-07] MEDS: LACTOBACILLUS RHAMNOSUS CAP GTB SCH (23:00)
[2017-05-07] MEDS: DONEPEZIL 10 MG TAB GTB SCH (23:00)
[2017-05-07 23:19] VITALS: BP 112/63; RESP 18
[2017-05-08] VITALS (12 sets, daily range): BP systolic 90–110; BP diastolic 43–57; PULSE 40–63; RESP 17–20
[2017-05-08] MEDS ORDERED: PENDING SANTYL ORDER FOR WOUND CARE XX PRN (03:00)
[2017-05-08] MEDS: METOPROLOL 25 MG TAB GTB SCH ×2 (05:00→17:00)
[2017-05-08] MEDS: DEXTROSE 5% 1,000 ML IV SCH (05:32)
[2017-05-08] MEDS: MEMANTINE 5 MG TAB GTB SCH (08:21)
[2017-05-08] MEDS: PRAMIPEXOLE 0.25 MG TAB GTB SCH (08:21)
[2017-05-08] MEDS: FUROSEMIDE 40 MG/4 ML CUP GTB SCH (08:21)
[2017-05-08] MEDS: FOLIC ACID 1 MG TAB GTB SCH (08:21)
[2017-05-08] MEDS: CLOPIDOGREL 75 MG TAB GTB SCH (08:21)
[2017-05-08] MEDS: MULTIVIT/CA CARB/B CMPLX/FA TAB GTB SCH (08:22)
[2017-05-08] MEDS: CARBIDOPA/LEVODOPA (25/100) TAB GTB SCH ×5 (08:23→20:51)
[2017-05-08] MEDS: FERROUS SULFATE (EC) 325 MG TAB PO SCH ×4 (08:24→20:51)
[2017-05-08] MEDS: CITRIC ACID/NA CITRATE 30 ML CUP PO SCH ×4 (08:24→20:51)
[2017-05-08] MEDS: HEPARIN 5,000 UNIT/0.5 ML VIAL SC SCH ×4 (08:27→20:50)
--- NOTE | 2017-05-08 08:44 | PN ---
Date/Time of Note Date/Time of Note DATE: 05/08/17 TIME: 08:41 Assessment/Plan VTE Prophylaxis VTE Prophylaxis Intervention: other Lines/Catheters IV Catheter Type (from Nrs): Peripheral IV Assessment/Plan Chief Complaint/Hosp Course 1. hypoxemic resp failure: s/p trach 2. Pafib; currently in NSR 3. htn 4. encephalopathy 5. renal failure 6. dysphagia 7. G tube malfunction cont current cardiac care cont resp care follow up with GI rec. tele monitoring correct lytes prn Problems: Subjective 24 Hr Interval Summary Free Text/Dictation Discussed with staff emergency was reviewed pt remains in NSR. NO AFIB seen NONVERBAL. OBJECTIVE: General: no acute distress HEENT: NC/AT. NECK: NO JVD. no stridor. S/P trach on O2 CV: RRR. systolic murmur; no gallop or rubs. PULM: no wheezing anteriorly GI: SOFT, NT, ND, no rebound or guarding Extremity: trace B/L LE edema. no clubbing. neuro: opens her eyes to painful stimuli. does not follow commands Psych: calm and pleasant rectal: deferred l Exam/Review of Systems Vital Signs Vitals Vital Signs Date Time Temp Pulse Resp B/P Pulse Ox O2 Delivery O2 Flow Rate FiO2 05/08/17 08:18 60 18 97 Aerosol 5.0 05/08/17 07:45 97.6 95/46 05/07/17 18:19 28 Intake and Output 05/07/17 05/07/17 05/08/17 15:00 23:00 07:00 Intake Total 300 ml Balance 300 ml Results Result Diagram: 05/07/17 0531 05/07/17 0531 Results 24 hrs Laboratory Tests Test 05/07/17 08:46 05/07/17 08:50 05/07/17 09:51 05/07/17 12:36 Bedside Glucose 78 77 84 87 Test 05/07/17 16:10 05/07/17 23:46 Bedside Glucose 96 80 Medications Medications Current Medications Atorvastatin Calcium (Lipitor) 10 mg QHS GTB ; Start 05/06/17 at 21:00 Bisacodyl (Dulcolax Supp) 10 mg Q48H [place] ; Start 05/06/17 at 17:00 Carbidopa/Levodopa (Sinemet (25/ 100)) 1 tab TID GTB ; Start 05/06/17 at 21:00 Clopidogrel Bisulfate (plaVIX) 75 mg DAILY GTB ; Start 05/07/17 at 09:00 Donepezil HCl (Aricept) 10 mg QHS GTB ; Start 05/06/17 at 21:00 Ferrous Sulfate (Ferrous Sulfate (Ec)) 325 mg BID PO ; Start 05/06/17 at 21:00 Folic Acid (Folic Acid) 1 mg DAILY GTB ; Start 05/07/17 at 09:00 Furosemide (Lasix) 40 mg DAILY GTB ; Start 05/07/17 at 09:00 Lactobacillus Acidophilus/ Rhamnosus (Culturelle) 1 cap QHS GTB ; Start at 21:00 Magnesium Hydroxide (Milk Of Mag) 30 ml Q24H GTB ; Start 05/06/17 at 17:00 Memantine (Namenda) 5 mg QAM GTB ; Start 05/07/17 at 09:00 Metoprolol Tartrate (Lopressor) 25 mg Q12H GTB ; Start 05/06/17 at 17:00 Multivit/Ca Carb/ B Cmplx/FA/Prenat (Radhika-John) 1 tab DAILY GTB ; Start at 09:00 Pramipexole (Mirapex) 0.5 mg DAILY GTB ; Start 05/07/17 at 09:00 Sodium Biphosphate/ Sodium Phosphate (Fleet Enema Pediatric) 118 ml Q72H PRN [place] CONSTIPATION; Start 05/06/17 at 17:00 Citric Acid/ Sodium Citrate (Bicitra) 30 ml BID PO ; Start 05/06/17 at 21:00 Heparin Sodium (Porcine) 5000 unit 5,000 unit BID SC Last administered on 21:13; Admin Dose 5,000 UNIT; Start 05/06/17 at 21:00 Dextrose (D5W) 1,000 ml @ 50 mls/hr Q20H IV Last administered on 05/08/17 05: 32; Admin Dose 50 MLS/HR; Start 05/06/17 at 17:00 Miscellaneous Information (Pending Santyl Order For Wound Care) This patient osuna... PRN PRN XX WOUND CARE; Start 05/08/17 at 03:00 MILAGROS MUNOZ MD May 08, 2017 08:43
[2017-05-08 11:07] LABS: ADD SCAN DIFF NO
[2017-05-08 11:15] LABS: ABNORMAL IP MESSAGE 1; BASOPHILS % 0.5 % (0.0-2.0); EOSINOPHILS # 0.6 10^3/ul (0.0-0.5); EOSINOPHILS % 14.9 % (0.0-7.0); HEMOGLOBIN 8.4 g/dl (12.0-16.0); LYMPHOCYTES % 22.5 % (15.0-51.0); MEAN CORPUSCULAR HEMOGLOBIN 27.7 pg (29.0-33.0); MEAN PLATELET VOLUME 10.3 fl (7.4-10.4); MONOCYTE # 0.4 10^3/ul (0.3-0.9); MONOCYTES % 8.3 % (0.0-11.0); NEUTROPHIL # 2.3 10^3/ul (1.6-7.5); NEUTROPHILS % 53.6 % (39.0-77.0); PLATELET COUNT 178 10^3/UL (140-415); RED BLOOD COUNT 3.03 10^6/ul (4.20-5.40); RED CELL DISTRIBUTION WIDTH 19.8 % (11.5-14.5); WHITE BLOOD COUNT 4.2 10^3/ul (4.8-10.8)
[2017-05-08 11:30] LABS: CALCIUM 8.7 mg/dl (8.4-10.2); CREATININE 2.77 mg/dl (0.44-1.00); PHOSPHORUS 6.9 mg/dl (2.5-4.9); POTASSIUM 4.1 mmol/L (3.5-5.1)
--- NOTE | 2017-05-08 16:33 | QN ---
Documentation Comment pt seen and examined. h/p dictated. OSMAR MONTAGUE DO May 08, 2017 16:33
--- NOTE | 2017-05-08 16:41 | PN ---
Date/Time of Note Date/Time of Note DATE: 05/08/17 TIME: 16:33 Assessment/Plan VTE Prophylaxis VTE Prophylaxis Intervention: other Lines/Catheters IV Catheter Type (from Nrs): Peripheral IV Assessment/Plan Chief Complaint/Hosp Course 1. dysphagia- g tube dislodged, f/u gi 2. chronic respiratory failure s/p trch -f/u pulmonary 3. Nonoliguric acute kidney injury on top of chronic kidney disease stage 4. 4. Hypernatremia Improving 5. r/o scabies -treat with permethrin -id consult 6. chf -cont med/royce -f/u cardiology 8. Acute encephalopathy and advanced dementia. Etiology is toxic metabolic. Continue to monitor. 9. Mineral bone disorder. Continue to monitor calcium and phosphorus levels. 10. Anemia. Will continue to monitor H and H levels. Continue Epogen. 11. Coronary artery disease. Continue medical management. 12. Diabetes. Continue Accu-Cheks and insulin sliding scale. 13. Decubitus wound. Continue wound care. 14. Gastrointestinal and deep venous thrombosis prophylaxis. Continue proton pump inhibitor and heparin. Problems: Subjective 24 Hr Interval Summary Free Text/Dictation The patient remains clinically stable. No acute events overnight, Awaiting peg placement Exam/Review of Systems Vital Signs Vitals Vital Signs Date Time Temp Pulse Resp B/P Pulse Ox O2 Delivery O2 Flow Rate FiO2 05/08/17 16:26 56 05/08/17 15:51 98.2 20 110/53 96 05/08/17 14:05 Aerosol 5.0 05/07/17 18:19 28 Intake and Output 05/07/17 05/07/17 05/08/17 15:00 23:00 07:00 Intake Total 300 ml Balance 300 ml Exam General: no acute distress HEENT: NC/AT. NECK: NO JVD. no stridor. S/P trach on O2 CV: RRR. systolic murmur; no gallop or rubs. PULM: no wheezing anteriorly GI: SOFT, NT, ND, no rebound or guarding Extremity: trace B/L LE edema. no clubbing. neuro: opens her eyes to painful stimuli. does not follow commands Psych: calm and pleasant rectal: deferred Results Result Diagram: 05/08/17 1050 05/08/17 1050 Results 24 hrs Laboratory Tests Test 05/07/17 23:46 05/08/17 10:50 Bedside Glucose 80 White Blood Count 4.2 #L Red Blood Count 3.03 L Hemoglobin 8.4 L Hematocrit 30.0 L Mean Corpuscular Volume 99.0 Mean Corpuscular Hemoglobin 27.7 L Mean Corpuscular Hemoglobin Concent 28.0 L Red Cell Distribution Width 19.8 H Platelet Count 178 Mean Platelet Volume 10.3 Neutrophils % 53.6 Lymphocytes % 22.5 Monocytes % 8.3 Eosinophils % 14.9 H Basophils % 0.5 Nucleated Red Blood Cells % 0.0 Neutrophils # 2.3 Lymphocytes # 1.0 Monocytes # 0.4 Eosinophils # 0.6 H Basophils # 0.0 Nucleated Red Blood Cells # 0.0 Sodium Level 148 H Potassium Level 4.1 Chloride Level 109 Carbon Dioxide Level 25 Anion Gap 18 H Blood Urea Nitrogen 72 H Creatinine 2.77 H Glucose Level 80 Calcium Level 8.7 Phosphorus Level 6.9 H Magnesium Level 2.0 Medications Medications Current Medications Atorvastatin Calcium (Lipitor) 10 mg QHS GTB ; Start 05/06/17 at 21:00 Bisacodyl (Dulcolax Supp) 10 mg Q48H [place] ; Start 05/06/17 at 17:00 Carbidopa/Levodopa (Sinemet (25/ 100)) 1 tab TID GTB ; Start 05/06/17 at 21:00 Clopidogrel Bisulfate (plaVIX) 75 mg DAILY GTB ; Start 05/07/17 at 09:00 Donepezil HCl (Aricept) 10 mg QHS GTB ; Start 05/06/17 at 21:00 Ferrous Sulfate (Ferrous Sulfate (Ec)) 325 mg BID PO ; Start 05/06/17 at 21:00 Folic Acid (Folic Acid) 1 mg DAILY GTB ; Start 05/07/17 at 09:00 Furosemide (Lasix) 40 mg DAILY GTB ; Start 05/07/17 at 09:00 Lactobacillus Acidophilus/ Rhamnosus (Culturelle) 1 cap QHS GTB ; Start at 21:00 Magnesium Hydroxide (Milk Of Mag) 30 ml Q24H GTB ; Start 05/06/17 at 17:00 Memantine (Namenda) 5 mg QAM GTB ; Start 05/07/17 at 09:00 Metoprolol Tartrate (Lopressor) 25 mg Q12H GTB ; Start 05/06/17 at 17:00 Multivit/Ca Carb/ B Cmplx/FA/Prenat (Radhika-John) 1 tab DAILY GTB ; Start at 09:00 Pramipexole (Mirapex) 0.5 mg DAILY GTB ; Start 05/07/17 at 09:00 Sodium Biphosphate/ Sodium Phosphate (Fleet Enema Pediatric) 118 ml Q72H PRN [place] CONSTIPATION; Start 05/06/17 at 17:00 Citric Acid/ Sodium Citrate (Bicitra) 30 ml BID PO ; Start 05/06/17 at 21:00 Heparin Sodium (Porcine) 5000 unit 5,000 unit BID SC Last administered on 21:13; Admin Dose 5,000 UNIT; Start 05/06/17 at 21:00 Dextrose (D5W) 1,000 ml @ 50 mls/hr Q20H IV Last administered on 05/08/17 05: 32; Admin Dose 50 MLS/HR; Start 05/06/17 at 17:00 Miscellaneous Information (Pending [facility] Order For Wound Care) This patient osuna... PRN PRN XX WOUND CARE; Start 05/08/17 at 03:00 Permethrin (Elimite 5% Cr) 1 applic ONCE TOP ; Start 05/08/17 at 21:00; Stop at 09:00 OSMAR MONTAGUE DO May 08, 2017 16:41
--- NOTE | 2017-05-08 16:46 | CONS ---
Date/Time of Note Date/Time of Note DATE: 05/08/17 TIME: 16:45 Consultation Date/Type/Reason Admit Date/Time Type of Consultation: ID Reason for Consultation This is Dr. Roddy Tinajero dictating infectious consultation on Kailey French , date of admission 05/06/2017, date of consultation dictation 05/08/2017, reason for consultation is antibiotic management. Patient is an 86-year-old white female who presented to the emergency room for evaluation of a gastrojejunal tube. The tube had been removed by accident by the patient Past problems include: #1 hypertension #2 end-stage renal disease #3 chronic respiratory failure #4 adult onset diabetes mellitus #5 hyperlipidemia #6 Parkinson's disease #7 encephalopathy #8 peripheral vascular disease #9 respiratory failure #10 status post tracheostomy #11 coronary artery disease and CHF #12 dementia #13 History of CVA. On admission her white count was 7.3 H&H of 8.7 and 31.1 platelet count 190, 000. BUN/creatinine 84/2.5 glucose 68 random chest x-ray showed unchanged pulmonary edema mild left basilar atelectasis and no other new abnormalities. Blood cultures were negative white count today is 4.2 Past medical history as outlined Past surgical history as outlined Family history noncontributory Social history: Patient lives in senior living Allergies none to penicillin sulfa foods Medications per chart Review of systems is noncontributory. On physical examination patient is a chronically ill-appearing female who is nonverbal and in no acute distress. Vital signs are stable and she is afebrile SHEENT within normal limits Neck: Tracheostomy in place without discharge Chest: Decreased breath sounds at the bases Heart without murmur or gallop Abdomen is soft nontender, she has a gastric ostomy site, which is now covered. Extremities without cyanosis clubbing or edema Rectal genital exams deferred Neurological evaluation: Patient with contracted extremities. Patient also has some excoriations on her abdomen and trunk. Impression plan: Patient requires replacement of the gastrojejunal tube. Scrapings for scabies should be done and have been ordered and patient should be treated with Elimite or permethrin 5% on the chance that she may have scabies. I want to thank Dr. Rosas and the consultants for asking me to see this unfortunate lady in consultation. Thank you for this advertising analyst. Psychological: nl mood/affect, no complaints Past Medical History Medical History: congestive heart failure, renal disease Past Surgical History Past Surgical Hx: endoscopy Social History Alcohol Use: none Smoking Status: Unknown if ever smoked Drug Use: none Exam/Review of Systems Vital Signs Vitals Vital Signs Date Time Temp Pulse Resp B/P Pulse Ox O2 Delivery O2 Flow Rate FiO2 05/08/17 16:26 56 05/08/17 15:51 98.2 20 110/53 96 05/08/17 14:05 Aerosol 5.0 05/07/17 18:19 28 Intake and Output 05/07/17 05/07/17 05/08/17 15:00 23:00 07:00 Intake Total 300 ml Balance 300 ml Results Result Diagram: 05/08/17 1050 05/08/17 1050 Results 24 hrs Laboratory Tests Test 05/07/17 23:46 05/08/17 10:50 Bedside Glucose 80 White Blood Count 4.2 #L Red Blood Count 3.03 L Hemoglobin 8.4 L Hematocrit 30.0 L Mean Corpuscular Volume 99.0 Mean Corpuscular Hemoglobin 27.7 L Mean Corpuscular Hemoglobin Concent 28.0 L Red Cell Distribution Width 19.8 H Platelet Count 178 Mean Platelet Volume 10.3 Neutrophils % 53.6 Lymphocytes % 22.5 Monocytes % 8.3 Eosinophils % 14.9 H Basophils % 0.5 Nucleated Red Blood Cells % 0.0 Neutrophils # 2.3 Lymphocytes # 1.0 Monocytes # 0.4 Eosinophils # 0.6 H Basophils # 0.0 Nucleated Red Blood Cells # 0.0 Sodium Level 148 H Potassium Level 4.1 Chloride Level 109 Carbon Dioxide Level 25 Anion Gap 18 H Blood Urea Nitrogen 72 H Creatinine 2.77 H Glucose Level 80 Calcium Level 8.7 Phosphorus Level 6.9 H Magnesium Level 2.0 Medications Medications Current Medications Atorvastatin Calcium (Lipitor) 10 mg QHS GTB ; Start 05/06/17 at 21:00 Bisacodyl (Dulcolax Supp) 10 mg Q48H [place] ; Start 05/06/17 at 17:00 Carbidopa/Levodopa (Sinemet (25/ 100)) 1 tab TID GTB ; Start 05/06/17 at 21:00 Clopidogrel Bisulfate (plaVIX) 75 mg DAILY GTB ; Start 05/07/17 at 09:00 Donepezil HCl (Aricept) 10 mg QHS GTB ; Start 05/06/17 at 21:00 Ferrous Sulfate (Ferrous Sulfate (Ec)) 325 mg BID PO ; Start 05/06/17 at 21:00 Folic Acid (Folic Acid) 1 mg DAILY GTB ; Start 05/07/17 at 09:00 Furosemide (Lasix) 40 mg DAILY GTB ; Start 05/07/17 at 09:00 Lactobacillus Acidophilus/ Rhamnosus (Culturelle) 1 cap QHS GTB ; Start at 21:00 Magnesium Hydroxide (Milk Of Mag) 30 ml Q24H GTB ; Start 05/06/17 at 17:00 Memantine (Namenda) 5 mg QAM GTB ; Start 05/07/17 at 09:00 Metoprolol Tartrate (Lopressor) 25 mg Q12H GTB ; Start 05/06/17 at 17:00 Multivit/Ca Carb/ B Cmplx/FA/Prenat (Radhika-John) 1 tab DAILY GTB ; Start at 09:00 Pramipexole (Mirapex) 0.5 mg DAILY GTB ; Start 05/07/17 at 09:00 Sodium Biphosphate/ Sodium Phosphate (Fleet Enema Pediatric) 118 ml Q72H PRN [place] CONSTIPATION; Start 05/06/17 at 17:00 Citric Acid/ Sodium Citrate (Bicitra) 30 ml BID PO ; Start 05/06/17 at 21:00 Heparin Sodium (Porcine) 5000 unit 5,000 unit BID SC Last administered on 21:13; Admin Dose 5,000 UNIT; Start 05/06/17 at 21:00 Dextrose (D5W) 1,000 ml @ 50 mls/hr Q20H IV Last administered on 05/08/17t 05: 32; Admin Dose 50 MLS/HR; Start 05/06/17 at 17:00 Miscellaneous Information (Pending [facility] Order For Wound Care) This patient osuna... PRN PRN XX WOUND CARE; Start 05/08/17 at 03:00 Permethrin (Elimite 5% Cr) 1 applic ONCE TOP ; Start 05/08/17 at 21:00; Stop at 09:00 RODDY TINAJERO MD May 08, 2017 16:46
[2017-05-08] MEDS: MAGNESIUM HYDROXIDE 30ML CUP GTB SCH (17:00)
--- NOTE | 2017-05-08 17:38 | CONS ---
Date/Time of Note Date/Time of Note DATE: 05/08/17 TIME: 17:36 Assessment/Plan Assessment/Plan Chief Complaint/Hosp Course This 69-year-old female with a history of CVA vent dependent respiratory failure , was brought to the emergency room for the dislodgment of the GJ tube. Patient is nonverbal and no information can be obtained. No GI bleeding no chest pain no shortness of breath. Problems: Additional Assessment/Plan Additional Assessment/Plan 1. Dislodged of the GJ tube accidentally 2. Vent dependent respiratory failure 3. Chronic encephalopathy 4. Renal failure 5. Peripheral vascular disease 6. Anemia Plan GJ tube tomorrow Consultation Date/Type/Reason Admit Date/Time May 06, 2017 at 16:34 Initial Consult Date Type of Consultation: ID [id number] HR Interval Summary Subjective hx not possible: pt non-verbal Exam/Review of Systems Vital Signs Vitals Vital Signs Date Time Temp Pulse Resp B/P Pulse Ox O2 Delivery O2 Flow Rate FiO2 05/08/17 16:26 56 05/08/17 15:51 98.2 20 110/53 96 05/08/17 14:05 Aerosol 5.0 05/07/17 18:19 28 Intake and Output 05/07/17 05/07/17 05/08/17 15:00 23:00 07:00 Intake Total 300 ml Balance 300 ml Exam Constitutional: alert, oriented, well developed Psych: nl mood/affect, no complaints Head: atraumatic, normocephalic Eyes: EOMI, PERRL, nl conjunctiva, nl lids, nl sclera ENMT: nl external ears & nose, nl lips & teeth, nl nasal mucosa & septum Neck: non-tender, supple Respiratory: clear to auscultation, normal air movement Cardiovascular: nl pulses, regular rate and rhythm Gastrointestinal: nl liver, spleen, non-tender, soft Musculoskeletal: nl extremities to inspection, nl gait and stance Extremities: normal pulses Neurological: OUTSOLE TACKER II-XII intact, nl mental status, nl speech, nl strength Skin: nl turgor, No rash or lesions Lymph: nl lymph nodes Results Result Diagram: 05/08/17 1050 05/08/17 1050 Results 24 hrs Laboratory Tests Test 05/07/17 23:46 05/08/17 10:50 Bedside Glucose 80 White Blood Count 4.2 #L Red Blood Count 3.03 L Hemoglobin 8.4 L Hematocrit 30.0 L Mean Corpuscular Volume 99.0 Mean Corpuscular Hemoglobin 27.7 L Mean Corpuscular Hemoglobin Concent 28.0 L Red Cell Distribution Width 19.8 H Platelet Count 178 Mean Platelet Volume 10.3 Neutrophils % 53.6 Lymphocytes % 22.5 Monocytes % 8.3 Eosinophils % 14.9 H Basophils % 0.5 Nucleated Red Blood Cells % 0.0 Neutrophils # 2.3 Lymphocytes # 1.0 Monocytes # 0.4 Eosinophils # 0.6 H Basophils # 0.0 Nucleated Red Blood Cells # 0.0 Sodium Level 148 H Potassium Level 4.1 Chloride Level 109 Carbon Dioxide Level 25 Anion Gap 18 H Blood Urea Nitrogen 72 H Creatinine 2.77 H Glucose Level 80 Calcium Level 8.7 Phosphorus Level 6.9 H Magnesium Level 2.0 Medications Medications Current Medications Atorvastatin Calcium (Lipitor) 10 mg QHS GTB ; Start 05/06/17 at 21:00 Bisacodyl (Dulcolax Supp) 10 mg Q48H [place] ; Start 05/06/17 at 17:00 Carbidopa/Levodopa (Sinemet (25/ 100)) 1 tab TID GTB ; Start 05/06/17 at 21:00 Clopidogrel Bisulfate (plaVIX) 75 mg DAILY GTB ; Start 05/07/17 at 09:00 Donepezil HCl (Aricept) 10 mg QHS GTB ; Start 05/06/17 at 21:00 Ferrous Sulfate (Ferrous Sulfate (Ec)) 325 mg BID PO ; Start 05/06/17 at 21:00 Folic Acid (Folic Acid) 1 mg DAILY GTB ; Start 05/07/17 at 09:00 Furosemide (Lasix) 40 mg DAILY GTB ; Start 05/07/17 at 09:00 Lactobacillus Acidophilus/ Rhamnosus (Culturelle) 1 cap QHS GTB ; Start at 21:00 Magnesium Hydroxide (Milk Of Mag) 30 ml Q24H GTB ; Start 05/06/17 at 17:00 Memantine (Namenda) 5 mg QAM GTB ; Start 05/07/17 at 09:00 Metoprolol Tartrate (Lopressor) 25 mg Q12H GTB ; Start 05/06/17 at 17:00 Multivit/Ca Carb/ B Cmplx/FA/Prenat (Radhika-John) 1 tab DAILY GTB ; Start at 09:00 Pramipexole (Mirapex) 0.5 mg DAILY GTB ; Start 05/07/17 at 09:00 Sodium Biphosphate/ Sodium Phosphate (Fleet Enema Pediatric) 118 ml Q72H PRN [place] CONSTIPATION; Start 05/06/17 at 17:00 Citric Acid/ Sodium Citrate (Bicitra) 30 ml BID PO ; Start 05/06/17 at 21:00 Heparin Sodium (Porcine) 5000 unit 5,000 unit BID SC Last administered on 21:13; Admin Dose 5,000 UNIT; Start 05/06/17 at 21:00 Dextrose (D5W) 1,000 ml @ 50 mls/hr Q20H IV Last administered on 05/08/17 05: 32; Admin Dose 50 MLS/HR; Start 05/06/17 at 17:00 Miscellaneous Information (Pending [facility] Order For Wound Care) This patient osuna... PRN PRN XX WOUND CARE; Start 05/08/17 at 03:00 Permethrin (Elimite 5% Cr) 1 applic ONCE TOP ; Start 05/08/17 at 21:00; Stop at 09:00 SYLWIA SY MD May 08, 2017 17:38
[2017-05-08] MEDS: BISACODYL 10 MG SUPP PR SCH (17:59)
[2017-05-08] MEDS: DONEPEZIL 10 MG TAB GTB SCH (20:51)
[2017-05-08] MEDS: LACTOBACILLUS RHAMNOSUS CAP GTB SCH (20:51)
[2017-05-08] MEDS: ATORVASTATIN 10 MG TAB GTB SCH (20:52)
[2017-05-08] MEDS ORDERED: PERMETHRIN 5% 60 GM CR TOP SCH (21:00)
[2017-05-09] VITALS (40 sets, daily range): BP systolic 59–182; BP diastolic 21–105; PULSE 52–134; RESP 10–22
[2017-05-09] MEDS: METOPROLOL 25 MG TAB GTB SCH ×2 (05:00→16:20)
[2017-05-09] MEDS: DEXTROSE 5% 1,000 ML IV SCH ×2 (05:20→21:06)
[2017-05-09 07:19] LABS: ADD SCAN DIFF NO
[2017-05-09 07:22] LABS: ABNORMAL IP MESSAGE 1; BASOPHILS % 0.3 % (0.0-2.0); EOSINOPHILS # 0.4 10^3/ul (0.0-0.5); EOSINOPHILS % 11.4 % (0.0-7.0); HEMATOCRIT 34.2 % (37.0-47.0); HEMOGLOBIN 9.6 g/dl (12.0-16.0); LYMPHOCYTES # 0.9 10^3/ul (0.8-2.9); LYMPHOCYTES % 23.6 % (15.0-51.0); MEAN CORPUSCULAR HEMOGLOBIN 28.3 pg (29.0-33.0); MEAN CORPUSCULAR HGB CONC 28.1 g/dl (32.0-37.0); MEAN CORPUSCULAR VOLUME 100.9 fl (82.0-101.0); MEAN PLATELET VOLUME 9.9 fl (7.4-10.4); MONOCYTE # 0.2 10^3/ul (0.3-0.9); MONOCYTES % 6.5 % (0.0-11.0); NEUTROPHIL # 2.1 10^3/ul (1.6-7.5); NEUTROPHILS % 57.7 % (39.0-77.0); PLATELET COUNT 166 10^3/UL (140-415); RED BLOOD COUNT 3.39 10^6/ul (4.20-5.40); RED CELL DISTRIBUTION WIDTH 19.6 % (11.5-14.5); WHITE BLOOD COUNT 3.7 10^3/ul (4.8-10.8)
[2017-05-09 07:54] LABS: CREATININE 2.71 mg/dl (0.44-1.00); PHOSPHORUS 8.7 mg/dl (2.5-4.9); POTASSIUM 4.2 mmol/L (3.5-5.1)
--- NOTE | 2017-05-09 08:21 | PN ---
Date/Time of Note Date/Time of Note DATE: 05/09/17 TIME: 08:19 Assessment/Plan VTE Prophylaxis VTE Prophylaxis Intervention: other Lines/Catheters IV C[facility]ter Type (from [facility]): Peripheral IV Assessment/Plan Chief Complaint/Hosp Course 1. hypoxemic resp failure: s/p trach 2. Pafib; currently in NSR 3. HTN: controlled 4. encephalopathy 5. renal failure: f/u with nephrology 6. dysphagia 7. G tube malfunction/ infection cont current cardiac care cont resp care follow up with GI rec. tele monitoring correct lytes prn f/u renal fx. Problems: Subjective 24 Hr Interval Summary Free Text/Dictation Discussed with staff and rhythm was reviewed pt remains in NSR. NO AFIB seen NONVERBAL. OBJECTIVE: General: no acute distress HEENT: NC/AT. NECK: NO JVD. no stridor. S/P trach on O2 CV: RRR. systolic murmur; no gallop or rubs. PULM: no wheezing anteriorly GI: SOFT, NT, ND, no rebound or guarding s/p dressing on the site of previous G tube Extremity: trace B/L LE edema. no clubbing. neuro: opens her eyes to painful stimuli. does not follow commands Psych: calm rectal: deferred Exam/Review of Systems Vital Signs Vitals Vital Signs Date Time Temp Pulse Resp B/P Pulse Ox O2 Delivery O2 Flow Rate FiO2 05/09/17 05:23 58 20 96 Aerosol 5.0 28 T Tube 05/09/17 04:13 98.2 91/62 Intake and Output 05/08/17 05/08/17 05/09/17 15:00 23:00 07:00 Intake Total 600 ml 350 ml Balance 600 ml 350 ml Results Result Diagram: 05/09/17 0644 05/09/17 0644 Results 24 hrs Laboratory Tests Test 05/08/17 10:50 05/09/17 06:44 White Blood Count 4.2 #L 3.7 L Red Blood Count 3.03 L 3.39 L Hemoglobin 8.4 L 9.6 L Hematocrit 30.0 L 34.2 L Mean Corpuscular Volume 99.0 100.9 Mean Corpuscular Hemoglobin 27.7 L 28.3 L Mean Corpuscular Hemoglobin Concent 28.0 L 28.1 L Red Cell Distribution Width 19.8 H 19.6 H Platelet Count 178 166 Mean Platelet Volume 10.3 9.9 Neutrophils % 53.6 57.7 Lymphocytes % 22.5 23.6 Monocytes % 8.3 6.5 Eosinophils % 14.9 H 11.4 H Basophils % 0.5 0.3 Nucleated Red Blood Cells % 0.0 0.0 Neutrophils # 2.3 2.1 Lymphocytes # 1.0 0.9 Monocytes # 0.4 0.2 L Eosinophils # 0.6 H 0.4 Basophils # 0.0 0.0 Nucleated Red Blood Cells # 0.0 0.0 Sodium Level 148 H 147 H Potassium Level 4.1 4.2 Chloride Level 109 105 Carbon Dioxide Level 25 26 Anion Gap 18 H 20 H Blood Urea Nitrogen 72 H 73 H Creatinine 2.77 H 2.71 H Glucose Level 80 110 Calcium Level 8.7 9.0 Phosphorus Level 6.9 H 8.7 H Magnesium Level 2.0 2.0 Medications Medications Current Medications Atorvastatin Calcium (Lipitor) 10 mg QHS GTB ; Start 05/06/17 at 21:00 Bisacodyl (Dulcolax Supp) 10 mg Q48H [place] Last administered on 05/08/17t 17:59; Admin Dose 10 MG; Start 05/06/17 at 17:00 Carbidopa/Levodopa (Sinemet (25/ 100)) 1 tab TID GTB ; Start 05/06/17 at 21:00 Clopidogrel Bisulfate (plaVIX) 75 mg DAILY GTB ; Start 05/07/17 at 09:00 Donepezil HCl (Aricept) 10 mg QHS GTB ; Start 05/06/17 at 21:00 Ferrous Sulfate (Ferrous Sulfate (Ec)) 325 mg BID PO ; Start 05/06/17 at 21:00 Folic Acid (Folic Acid) 1 mg DAILY GTB ; Start 05/07/17 at 09:00 Furosemide (Lasix) 40 mg DAILY GTB ; Start 05/07/17 at 09:00 Lactobacillus Acidophilus/ Rhamnosus (Culturelle) 1 cap QHS GTB ; Start at 21:00 Magnesium Hydroxide (Milk Of Mag) 30 ml Q24H GTB ; Start 05/06/17 at 17:00 Memantine (Namenda) 5 mg QAM GTB ; Start 05/07/17 at 09:00 Metoprolol Tartrate (Lopressor) 25 mg Q12H GTB ; Start 05/06/17 at 17:00 Multivit/Ca Carb/ B Cmplx/FA/Prenat (Radhika-John) 1 tab DAILY GTB ; Start at 09:00 Pramipexole (Mirapex) 0.5 mg DAILY GTB ; Start 05/07/17 at 09:00 Sodium Biphosphate/ Sodium Phosphate (Fleet Enema Pediatric) 118 ml Q72H PRN [place] CONSTIPATION; Start 05/06/17 at 17:00 Citric Acid/ Sodium Citrate (Bicitra) 30 ml BID PO ; Start 05/06/17 at 21:00 Heparin Sodium (Porcine) 5000 unit 5,000 unit BID SC Last administered on 20:50; Admin Dose 5,000 UNIT; Start 05/06/17 at 21:00 Dextrose (D5W) 1,000 ml @ 50 mls/hr Q20H IV Last administered on 05/09/17 05: 20; Admin Dose 50 MLS/HR; Start 05/06/17 at 17:00 Miscellaneous Information (Pending [facility] Order For Wound Care) This patient osuna... PRN PRN XX WOUND CARE; Start 05/08/17 at 03:00 Permethrin (Elimite 5% Cr) 1 applic ONCE ONCE TOP ; Start 05/09/17 at 21:00; Stop 05/09/17 at 21:01 MILAGROS MUNOZ MD May 09, 2017 08:21
[2017-05-09] MEDS: PRAMIPEXOLE 0.25 MG TAB GTB SCH (09:00)
[2017-05-09] MEDS: MULTIVIT/CA CARB/B CMPLX/FA TAB GTB SCH (09:00)
[2017-05-09] MEDS: CITRIC ACID/NA CITRATE 30 ML CUP PO SCH ×2 (09:00→21:00)
[2017-05-09] MEDS: FUROSEMIDE 40 MG/4 ML CUP GTB SCH (09:00)
[2017-05-09] MEDS: FERROUS SULFATE (EC) 325 MG TAB PO SCH ×2 (09:00→21:00)
[2017-05-09] MEDS: FOLIC ACID 1 MG TAB GTB SCH (09:00)
[2017-05-09] MEDS: MEMANTINE 5 MG TAB GTB SCH (09:00)
[2017-05-09] MEDS: CARBIDOPA/LEVODOPA (25/100) TAB GTB SCH ×3 (09:00→21:00)
[2017-05-09] MEDS: CLOPIDOGREL 75 MG TAB GTB SCH (09:00)
[2017-05-09] MEDS: HEPARIN 5,000 UNIT/0.5 ML VIAL SC SCH ×2 (09:54→21:08)
--- NOTE | 2017-05-09 10:37 | PN ---
Date/Time of Note Date/Time of Note DATE: 05/09/17 TIME: 10:35 Assessment/Plan VTE Prophylaxis VTE Prophylaxis Intervention: other Lines/Catheters IV Catheter Type (from Nrs): Peripheral IV Assessment/Plan Chief Complaint/Hosp Course 1. dysphagia- g tube dislodged, f/u gi Possible PEG tube placement today 2. chronic respiratory failure s/p trch -f/u pulmonary 3. Nonoliguric acute kidney injury on top of chronic kidney disease stage 4. Etiology hemodynamics, possible progression of disease We will check urine lites UA. Monitor closely 4. Hypernatremia Improving 5. r/o scabies -treat with permethrin -id consult 6. chf -cont med/royce -f/u cardiology 8. Acute encephalopathy and advanced dementia. Etiology is toxic metabolic. Continue to monitor. 9. Mineral bone disorder. Continue to monitor calcium and phosphorus levels. 10. Anemia. Will continue to monitor H and H levels. Continue Epogen. 11. Coronary artery disease. Continue medical management. 12. Diabetes. Continue Accu-Cheks and insulin sliding scale. 13. Decubitus wound. Continue wound care. 14. Gastrointestinal and deep venous thrombosis prophylaxis. Continue proton pump inhibitor and heparin. Problems: Subjective 24 Hr Interval Summary Free Text/Dictation Patient seen and examined No events overnight Patient's pending possible PEG tube placement Exam/Review of Systems Vital Signs Vitals Vital Signs Date Time Temp Pulse Resp B/P Pulse Ox O2 Delivery O2 Flow Rate FiO2 05/09/17 08:30 57 05/09/17 08:29 97.8 18 93/46 95 05/09/17 05:23 Aerosol 5.0 28 T Tube Intake and Output 05/08/17 05/08/17 05/09/17 15:00 23:00 07:00 Intake Total 600 ml 350 ml Balance 600 ml 350 ml Exam General: no acute distress HEENT: NC/AT. NECK: NO JVD. no stridor. S/P trach on O2 CV: RRR. systolic murmur; no gallop or rubs. PULM: no wheezing anteriorly GI: SOFT, NT, ND, no rebound or guarding Extremity: trace B/L LE edema. no clubbing. neuro: opens her eyes to painful stimuli. does not follow commands Psych: calm and pleasant rectal: deferred Results Result Diagram: 05/09/17 0644 05/09/17 0644 Results 24 hrs Laboratory Tests Test 05/08/17 10:50 05/09/17 06:44 White Blood Count 4.2 #L 3.7 L Red Blood Count 3.03 L 3.39 L Hemoglobin 8.4 L 9.6 L Hematocrit 30.0 L 34.2 L Mean Corpuscular Volume 99.0 100.9 Mean Corpuscular Hemoglobin 27.7 L 28.3 L Mean Corpuscular Hemoglobin Concent 28.0 L 28.1 L Red Cell Distribution Width 19.8 H 19.6 H Platelet Count 178 166 Mean Platelet Volume 10.3 9.9 Neutrophils % 53.6 57.7 Lymphocytes % 22.5 23.6 Monocytes % 8.3 6.5 Eosinophils % 14.9 H 11.4 H Basophils % 0.5 0.3 Nucleated Red Blood Cells % 0.0 0.0 Neutrophils # 2.3 2.1 Lymphocytes # 1.0 0.9 Monocytes # 0.4 0.2 L Eosinophils # 0.6 H 0.4 Basophils # 0.0 0.0 Nucleated Red Blood Cells # 0.0 0.0 Sodium Level 148 H 147 H Potassium Level 4.1 4.2 Chloride Level 109 105 Carbon Dioxide Level 25 26 Anion Gap 18 H 20 H Blood Urea Nitrogen 72 H 73 H Creatinine 2.77 H 2.71 H Glucose Level 80 110 Calcium Level 8.7 9.0 Phosphorus Level 6.9 H 8.7 H Magnesium Level 2.0 2.0 Medications Medications Current Medications Atorvastatin Calcium (Lipitor) 10 mg QHS GTB ; Start 05/06/17 at 21:00 Bisacodyl (Dulcolax Supp) 10 mg Q48H [place] Last administered on 05/08/17t 17:59; Admin Dose 10 MG; Start 05/06/17 at 17:00 Carbidopa/Levodopa (Sinemet (25/ 100)) 1 tab TID GTB ; Start 05/06/17 at 21:00 Clopidogrel Bisulfate (plaVIX) 75 mg DAILY GTB ; Start 05/07/17 at 09:00 Donepezil HCl (Aricept) 10 mg QHS GTB ; Start 05/06/17 at 21:00 Ferrous Sulfate (Ferrous Sulfate (Ec)) 325 mg BID PO ; Start 05/06/17 at 21:00 Folic Acid (Folic Acid) 1 mg DAILY GTB ; Start 05/07/17 at 09:00 Furosemide (Lasix) 40 mg DAILY GTB ; Start 05/07/17 at 09:00 Lactobacillus Acidophilus/ Rhamnosus (Culturelle) 1 cap QHS GTB ; Start at 21:00 Magnesium Hydroxide (Milk Of Mag) 30 ml Q24H GTB ; Start 05/06/17 at 17:00 Memantine (Namenda) 5 mg QAM GTB ; Start 05/07/17 at 09:00 Metoprolol Tartrate (Lopressor) 25 mg Q12H GTB ; Start 05/06/17 at 17:00 Multivit/Ca Carb/ B Cmplx/FA/Prenat (Radhika-John) 1 tab DAILY GTB ; Start at 09:00 Pramipexole (Mirapex) 0.5 mg DAILY GTB ; Start 05/07/17 at 09:00 Sodium Biphosphate/ Sodium Phosphate (Fleet Enema Pediatric) 118 ml Q72H PRN [place] CONSTIPATION; Start 05/06/17 at 17:00 Citric Acid/ Sodium Citrate (Bicitra) 30 ml BID PO ; Start 05/06/17 at 21:00 Heparin Sodium (Porcine) 5000 unit 5,000 unit BID SC Last administered on 09:54; Admin Dose 5,000 UNIT; Start 05/06/17 at 21:00 Dextrose (D5W) 1,000 ml @ 50 mls/hr Q20H IV Last administered on 05/09/17 05: 20; Admin Dose 50 MLS/HR; Start 05/06/17 at 17:00 Miscellaneous Information (Pending [facility] Order For Wound Care) This patient osuna... PRN PRN XX WOUND CARE; Start 05/08/17 at 03:00 Permethrin (Elimite 5% Cr) 1 applic ONCE ONCE TOP ; Start 05/09/17 at 21:00; Stop 05/09/17 at 21:01 OSMAR MONTAGUE DO May 09, 2017 10:37
--- NOTE | 2017-05-09 10:56 | HP ---
DATE OF ADMISSION: 05/06/2017 CHIEF COMPLAINT: G tube dislodgement. HISTORY OF PRESENT ILLNESS: This is an 86-year-old female with a past medical history of advanced Alzheimer's dementia, history of ventilatory dependent respiratory failure, history of chronic kidney disease stage 4, history of anemia, history of contractures, history of dementia, surgery with placement of PEG, history of coronary artery disease, who presented to [facility] for evaluation of her G tube dislodgement. The patient recently had a prolonged hospital stay at [facility] in [facility] due to a gastrocutaneous fistula. The patient required 1 month of TPN before the gastrocutaneous fistula was closed and the G tube was reinserted. The patient was then subsequently transferred back to our subacute facility; however, yesterday the patient was noted to have dislodgement of the G tube and presented to [facility] emergency room for evaluation. In the emergency room the patient had laboratory data drawn and was found to have hyponatremia and mild CHF. No other acute events noted. There was no reports of any hemoptysis symptoms or hematochezia. PAST MEDICAL HISTORY: As stated above, history of ventilatory dependent respiratory failure, history of dysphagia, history of dementia, history of encephalopathy, CKD stage 4, history of anemia, coronary artery disease, peripheral vascular disease, hypertension, diabetes. PAST SURGICAL HISTORY: Status post trach and PEG. FAMILY HISTORY: Noncontributory. SOCIAL HISTORY: Lives at subacute facility. ALLERGIES: NO KNOWN DRUG ALLERGIES. MEDICATIONS: The patient's medications were reviewed. REVIEW OF SYSTEMS: Unable to do adequate review of systems as the patient is altered, non-verbal. Pertinent positives obtained by review of medical records, speaking to hospital staff, taking HPI. PHYSICAL EXAMINATION: VITAL SIGNS: Blood pressure 140/72, respirations 18, pulse 70, temperature 98.6. HEENT: Normocephalic. Pupils equal and reactive to light. NECK: Trach. HEENT: Regular rate. LUNGS: Diminished breath sounds at the base. ABDOMEN: Soft and nontender to palpation, positive G tube site with Collazo catheter placed. EXTREMITIES: No clubbing or cyanosis, positive edema. DERMATOLOGIC: Clean, no rashes. Positive wounds, positive contractures. NEUROLOGIC: Limited exam as the patient is obtunded. LABORATORY DATA: White count 5.5, hemoglobin 8.6, hematocrit 38.2, platelet count 182,000. Sodium 149, potassium 4.6, chloride 109, BUN 81, creatinine 2.43, phosphorus 7.0. Chest x- ray was reviewed and shows unchanged pulmonary edema, left basilar atelectasis. ASSESSMENT/PLAN: 1. Gastric tube malfunction/dislodgement. Plan is to get a gastroenterology consult with for replacement of gastric tube. Will monitor closely. 2. Ventilatory dependent respiratory failure. The patient is currently stable on trach mask. Continue to monitor, follow with pulmonary. 3. chronic kidney disease stage 4, etiology/hemodynamics. Continue current treatment plan and care. 4. Congestive heart failure, acute diastolic on top of chronic. The patient's chest x-ray shows decompensation. Continue low dose therapy. 5. Hyponatremia. Continue the patient on D5W. 6. Advanced Parkinson's dementia with encephalopathy. Continue medical management. 7. Coronary artery disease. Continue current treatment plan. 8. Hypertension. Continue to monitor blood pressure closely. 9. Anemia of chronic disease. Monitor hemoglobin and hematocrit. 10. Lower extremity wound. Will place wound care consult. Continue offloading. 11. Gastrointestinal/deep venous thrombosis prophylaxis. Continue with proton pump inhibitor heparin. 12. Monitor calcium and phosphorus levels. The patient will be placed on phosphorus binders. Dictated By: Brendan Rosas DO /junie/rasheeda /Document#: [id number]
[2017-05-09] MEDS ORDERED: FUROSEMIDE 40 MG INJ IV ONE (11:00)
[2017-05-09] MEDS ORDERED: ALTEPLASE (CATHFLO) 2 MG INJ CATHETER ONE (11:00)
--- NOTE | 2017-05-09 13:21 | CONS ---
Date/Time of Note Date/Time of Note DATE: 05/09/17 TIME: 13:17 Assessment/Plan Assessment/Plan Additional Assessment/Plan Assessment and recommendations; 1. Patient admitted for recurrent G-tube dislodgment with abdominal wall cellulitis. 2. Multiple other comorbidities including chronic respiratory failure, patient however maintained on tracheal T piece. 3. Advanced dementia. 4. Anemia, renal insufficiency, HTN and interstitial lung disease. Continue current supportive care. Add vancomycin intravenously and meropenem. Patient will be reevaluated for G-tube insertion once cellulitis improves. Consultation Date/Type/Reason Admit Date/Time May 06, 2017 at 16:34 Date of Consultation: May 09, 2017 Type of Consultation: Pulmonary Reason for Consultation Pulmonary consultation requested for evaluation of chronic respiratory failure. History of presenting any; patient is an 86-year-old white woman who was admitted from halfway with complaints of recurrent G-tube dislodgment. By the time I saw the patient the patient is completely unresponsive but did not appear to be in any distress. History was obtained from medical records. Past medical history; 1. Patient with history of advanced dementia. 2. Hypertension. 3. Anemia. 4. Renal insufficiency. 5. Status post tracheostomy and G-tube placement. Medications; reviewed. Allergies; none. Family history, social history, occupational histories are not available. Review of systems; unable to be obtained. General exam; elderly woman, awake, unresponsive, currently in no distress. Psychological: nl mood/affect, no complaints Past Medical History Medical History: congestive heart failure, renal disease Past Surgical History Past Surgical Hx: endoscopy Social History Alcohol Use: none Smoking Status: Unknown if ever smoked Drug Use: none Exam/Review of Systems Vital Signs Vitals Vital Signs Date Time Temp Pulse Resp B/P Pulse Ox O2 Delivery O2 Flow Rate FiO2 05/09/17 12:30 52 05/09/17 12:04 98.4 18 101/50 96 05/09/17 09:00 5.0 05/09/17 05:23 Aerosol 28 T Tube Intake and Output 05/08/17 05/08/17 05/09/17 15:00 23:00 07:00 Intake Total 600 ml 350 ml Balance 600 ml 350 ml Exam HEENT exam; supple neck, JVD difficult to see because of short neck. Patient has bilateral intraocular lens implants. Has multiple carious teeth. No thyromegaly. Tracheostomy in place. Insertion site is clean. Chest exam; diminished but clear breath sound. S1-S2 audible, no murmurs. Regular rhythm. Abdomen exam; protuberant. There is a dressing applied over the prior G-tube insertion site. With surrounding insertion site abdominal wall cellulitis. No organomegaly. Bowel sounds are sluggish. Extremity exam; trace edema. 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 And has mild contractures involving all 4 extremities. Results Result Diagram: 05/09/17 0644 05/09/17 0644 Results 24 hrs Laboratory Tests Test 05/09/17 06:44 05/09/17 11:51 White Blood Count 3.7 L Red Blood Count 3.39 L Hemoglobin 9.6 L Hematocrit 34.2 L Mean Corpuscular Volume 100.9 Mean Corpuscular Hemoglobin 28.3 L Mean Corpuscular Hemoglobin Concent 28.1 L Red Cell Distribution Width 19.6 H Platelet Count 166 Mean Platelet Volume 9.9 Neutrophils % 57.7 Lymphocytes % 23.6 Monocytes % 6.5 Eosinophils % 11.4 H Basophils % 0.3 Nucleated Red Blood Cells % 0.0 Neutrophils # 2.1 Lymphocytes # 0.9 Monocytes # 0.2 L Eosinophils # 0.4 Basophils # 0.0 Nucleated Red Blood Cells # 0.0 Sodium Level 147 H Potassium Level 4.2 Chloride Level 105 Carbon Dioxide Level 26 Anion Gap 20 H Blood Urea Nitrogen 73 H Creatinine 2.71 H Glucose Level 110 Calcium Level 9.0 Phosphorus Level 8.7 H Magnesium Level 2.0 Lab Scanned Report LAB Medications Medications Current Medications Atorvastatin Calcium (Lipitor) 10 mg QHS GTB ; Start 05/06/17 at 21:00 Bisacodyl (Dulcolax Supp) 10 mg Q48H [place] Last administered on 05/08/17t 17:59; Admin Dose 10 MG; Start 05/06/17 at 17:00 Carbidopa/Levodopa (Sinemet (25/ 100)) 1 tab TID GTB ; Start 05/06/17 at 21:00 Clopidogrel Bisulfate (plaVIX) 75 mg DAILY GTB ; Start 05/07/17 at 09:00 Donepezil HCl (Aricept) 10 mg QHS GTB ; Start 05/06/17 at 21:00 Ferrous Sulfate (Ferrous Sulfate (Ec)) 325 mg BID PO ; Start 05/06/17 at 21:00 Folic Acid (Folic Acid) 1 mg DAILY GTB ; Start 05/07/17 at 09:00 Furosemide (Lasix) 40 mg DAILY GTB ; Start 05/07/17 at 09:00 Lactobacillus Acidophilus/ Rhamnosus (Culturelle) 1 cap QHS GTB ; Start at 21:00 Magnesium Hydroxide (Milk Of Mag) 30 ml Q24H GTB ; Start 05/06/17 at 17:00 Memantine (Namenda) 5 mg QAM GTB ; Start 05/07/17 at 09:00 Metoprolol Tartrate (Lopressor) 25 mg Q12H GTB ; Start 05/06/17 at 17:00 Multivit/Ca Carb/ B Cmplx/FA/Prenat (Radhika-John) 1 tab DAILY GTB ; Start at 09:00 Pramipexole (Mirapex) 0.5 mg DAILY GTB ; Start 05/07/17 at 09:00 Sodium Biphosphate/ Sodium Phosphate (Fleet Enema Pediatric) 118 ml Q72H PRN [place] CONSTIPATION; Start 05/06/17 at 17:00 Citric Acid/ Sodium Citrate (Bicitra) 30 ml BID PO ; Start 05/06/17 at 21:00 Heparin Sodium (Porcine) 5000 unit 5,000 unit BID SC Last administered on 09:54; Admin Dose 5,000 UNIT; Start 05/06/17 at 21:00 Dextrose (D5W) 1,000 ml @ 50 mls/hr Q20H IV Last administered on 05/09/17 05: 20; Admin Dose 50 MLS/HR; Start 05/06/17 at 17:00 Miscellaneous Information (Pending Santyl Order For Wound Care) This patient osuna... PRN PRN XX WOUND CARE; Start 05/08/17 at 03:00 Permethrin (Elimite 5% Cr) 1 applic ONCE ONCE TOP ; Start 05/09/17 at 21:00; Stop 05/09/17 at 21:01 Nystatin (Nystatin Powder) 1 applic BID TOP ; Start 05/09/17 at 21:00 Mupirocin (Bactroban) 1 applic BID TOP ; Start 05/09/17 at 12:30 SMITH RUIZ May 09, 2017 13:21
[2017-05-09] MEDS: MUPIROCIN 2% 22 GM OINT TOP SCH ×2 (13:24→23:14)
[2017-05-09] MEDS ORDERED: VANCOMYCIN IV PER PHARMACY XX SCH (13:30)
[2017-05-09] MEDS ORDERED: MEROPENEM 2 GM in SOD CHLORIDE 0.9% 100 ML IVPB SCH (13:30)
--- NOTE | 2017-05-09 14:18 | RADRPT ---
PROCEDURE: XR Chest. CLINICAL INDICATION: Congestive heart failure TECHNIQUE: Single frontal view of the chest was obtained COMPARISON: chest x-ray 05/06/2017 FINDINGS: The patient is rotated leftward and soft tissues obscure the left lung apex, limiting evaluation. A tracheostomy tube remains in adequate position. The cardiac silhouette remains mildly enlarged. There is pulmonary vascular congestion and interstitial edema, unchanged. A moderate left pleural effusion appears new compared to prior study. Underlying atelectasis and / or consolidation cannot be excluded. There is increased patchy ill-defined opacity at the right cost ophrenic angle. There is no obvious pneumothorax. There are extensive degenerative changes of the visualized spine. IMPRESSION: 1. Mild cardiomegaly with pulmonary vascular congestion and interstitial edema, not significantly ch anged compared to prior study. 2. Moderate left pleural effusion, new or increased compared to prior study. 3. Developing ill-defined opacity in the right costophrenic angle which may be on the basis of a sma ll right pleural effusion, atelectasis, and / or developing pneumonia. RPTAT: PP Physician Daphne Date Time Electronically viewed and signed by Physician Daphne on 05/09/2017 14:18 /
--- NOTE | 2017-05-09 14:59 | CONS ---
Date/Time of Note Date/Time of Note DATE: 05/09/17 TIME: 14:58 Assessment/Plan Assessment/Plan Chief Complaint/Hosp Course No acute changes, patient is lying comfortably in bed she is noncommunicative looks comfortable WBC 3.7 H&H 9.6 and 34.2 BN 73 creatinine 2.71 Microbiology: Blood cultures remain negative nares swab growing MRSA Diagnostics: Chest x-ray revealed mild pulmonary vascular congestion not significantly changed compared to prior study. Questionably developing pneumonia in the right costophrenic angle. Indwelling's trach Collazo Antimicrobials: Vancomycin meropenem Physical examination: Chronically ill-appearing elderly woman in no distress head atraumatic normocephalic sclera nonicteric bugle mucosa dry neck is supple tracheostomy present chest rise symmetrical breath sounds diminished heart S1- S2 abdomen soft bowel sounds present extremities with trace edema skin positive for anasarca and macular papular rash in various stages of healing Assessment: 1. G-tube malfunction 2. Questionable pneumonia, on broad-spectrum antibiotic 3. Rash, rule out scabies 4. Chronic respiratory failure 5. Multiple chronic decubitus 6. Parkinson's dementia and chronic encephalopathy Plan: Remains stable awaiting for GI evaluation, will add Bactroban to nares, continue antibiotics, await for skin scrapings for scabies Problems: Consultation Date/Type/Reason Admit Date/Time May 06, 2017 at 16:34 Initial Consult Date 05/09/17 Type of Consultation: id Exam/Review of Systems Vital Signs Vitals Vital Signs Date Time Temp Pulse Resp B/P Pulse Ox O2 Delivery O2 Flow Rate FiO2 05/09/17 12:30 52 05/09/17 12:04 98.4 18 101/50 96 05/09/17 09:00 5.0 05/09/17 05:23 Aerosol 28 T Tube Intake and Output 05/08/17 05/08/17 05/09/17 15:00 23:00 07:00 Intake Total 600 ml 350 ml Balance 600 ml 350 ml Results Result Diagram: 05/09/17 0644 05/09/17 0644 Results 24 hrs Laboratory Tests Test 05/09/17 06:44 05/09/17 11:51 White Blood Count 3.7 L Red Blood Count 3.39 L Hemoglobin 9.6 L Hematocrit 34.2 L Mean Corpuscular Volume 100.9 Mean Corpuscular Hemoglobin 28.3 L Mean Corpuscular Hemoglobin Concent 28.1 L Red Cell Distribution Width 19.6 H Platelet Count 166 Mean Platelet Volume 9.9 Neutrophils % 57.7 Lymphocytes % 23.6 Monocytes % 6.5 Eosinophils % 11.4 H Basophils % 0.3 Nucleated Red Blood Cells % 0.0 Neutrophils # 2.1 Lymphocytes # 0.9 Monocytes # 0.2 L Eosinophils # 0.4 Basophils # 0.0 Nucleated Red Blood Cells # 0.0 Sodium Level 147 H Potassium Level 4.2 Chloride Level 105 Carbon Dioxide Level 26 Anion Gap 20 H Blood Urea Nitrogen 73 H Creatinine 2.71 H Glucose Level 110 Calcium Level 9.0 Phosphorus Level 8.7 H Magnesium Level 2.0 Lab Scanned Report LAB Medications Medications Current Medications Atorvastatin Calcium (Lipitor) 10 mg QHS GTB ; Start 05/06/17 at 21:00 Bisacodyl (Dulcolax Supp) 10 mg Q48H [place] Last administered on 05/08/17t 17:59; Admin Dose 10 MG; Start 05/06/17 at 17:00 Carbidopa/Levodopa (Sinemet (25/ 100)) 1 tab TID GTB ; Start 05/06/17 at 21:00 Clopidogrel Bisulfate (plaVIX) 75 mg DAILY GTB ; Start 05/07/17 at 09:00 Donepezil HCl (Aricept) 10 mg QHS GTB ; Start 05/06/17 at 21:00 Ferrous Sulfate (Ferrous Sulfate (Ec)) 325 mg BID PO ; Start 05/06/17 at 21:00 Folic Acid (Folic Acid) 1 mg DAILY GTB ; Start 05/07/17 at 09:00 Furosemide (Lasix) 40 mg DAILY GTB ; Start 05/07/17 at 09:00 Lactobacillus Acidophilus/ Rhamnosus (Culturelle) 1 cap QHS GTB ; Start at 21:00 Magnesium Hydroxide (Milk Of Mag) 30 ml Q24H GTB ; Start 05/06/17 at 17:00 Memantine (Namenda) 5 mg QAM GTB ; Start 05/07/17 at 09:00 Metoprolol Tartrate (Lopressor) 25 mg Q12H GTB ; Start 05/06/17 at 17:00 Multivit/Ca Carb/ B Cmplx/FA/Prenat (Radhika-John) 1 tab DAILY GTB ; Start at 09:00 Pramipexole (Mirapex) 0.5 mg DAILY GTB ; Start 05/07/17 at 09:00 Sodium Biphosphate/ Sodium Phosphate (Fleet Enema Pediatric) 118 ml Q72H PRN [place] CONSTIPATION; Start 05/06/17 at 17:00 Citric Acid/ Sodium Citrate (Bicitra) 30 ml BID PO ; Start 05/06/17 at 21:00 Heparin Sodium (Porcine) 5000 unit 5,000 unit BID SC Last administered on 09:54; Admin Dose 5,000 UNIT; Start 05/06/17 at 21:00 Dextrose (D5W) 1,000 ml @ 50 mls/hr Q20H IV Last administered on 05/09/17 05: 20; Admin Dose 50 MLS/HR; Start 05/06/17 at 17:00 Permethrin (Elimite 5% Cr) 1 applic ONCE ONCE TOP ; Start 05/09/17 at 21:00; Stop 05/09/17 at 21:01 Nystatin (Nystatin Powder) 1 applic BID TOP ; Start 05/09/17 at 21:00 Mupirocin (Bactroban) 1 applic BID TOP Last administered on 05/09/17 13:24; Admin Dose 1 APPLIC; Start 05/09/17 at 12:30 Collagenase (Santyl) 1 applic DAILY TOP ; Start 05/09/17 at 15:00 Collagenase 1 applic 1 applic PRN PRN TOP WOUND CARE; Start 05/09/17 at 14:00 Meropenem/Sodium Chloride 50 ml @ 100 mls/hr Q12 IVPB ; Start 05/09/17 at 15:00 Vancomycin HCl 1.75 gm/Sodium Chloride 500 ml @ 125 mls/hr ONCE IVPB ; Start at 15:00; Stop 05/09/17 at 18:59 Vancomycin HCl/ Sodium Chloride (Vancocin/NS) 250 ml @ 83.333 mls/ hr Q48H IVPB ; Start 05/11/17 at 15:00 DOROTHY CORONADO NP May 09, 2017 14:58
[2017-05-09] MEDS ORDERED: VANCOMYCIN 1.75 GM in NS 500 ML IVPB SCH (15:00)
[2017-05-09] MEDS: COLLAGENASE 30 GM TUBE TOP SCH (15:27)
[2017-05-09] MEDS: MEROPENEM 1 GM/50ML(PMX) 50 ML IVPB SCH (15:27)
[2017-05-09] MEDS: MAGNESIUM HYDROXIDE 30ML CUP GTB SCH (16:21)
[2017-05-09] MEDS ORDERED: SOD CHLORIDE 0.9% 500 ML IV ONE ×2 (17:00→22:00)
[2017-05-09] MEDS ORDERED: SOD CHLORIDE 0.9% 1,000 ML IV SCH ×2 (18:18→18:30)
[2017-05-09] MEDS ORDERED: NORepinephrine 8MG/250 ML (PMX 250 ML IV SCH ×2 (18:30→18:45)
--- NOTE | 2017-05-09 19:07 | CONS ---
Date/Time of Note Date/Time of Note DATE: 05/09/17 TIME: 19:06 Assessment/Plan Assessment/Plan Chief Complaint/Hosp Course This 69-year-old female with a history of CVA vent dependent respiratory failure , was brought to the emergency room for the dislodgment of the GJ tube. Patient is nonverbal and no information can be obtained. No GI bleeding no chest pain no shortness of breath. Problems: Additional Assessment/Plan Additional Assessment/Plan 1. Dislodged of the GJ tube accidentally 2. Vent dependent respiratory failure 3. Chronic encephalopathy 4. Renal failure 5. Peripheral vascular disease 6. Anemia Plan GJ tube tomorrow We will do jejunostomy once the consent is obtained. It was very difficult for the staff to get a consent they could not locate son. I will proceed with the procedure once the vital signs are stable Consultation Date/Type/Reason Admit Date/Time May 06, 2017 at 16:34 Type of Consultation: id [id number] HR Interval Summary Free Text/Dictation Patient blood pressure dropped down rapid response team was called and now getting transferred to ICU as per the staff Exam/Review of Systems Vital Signs Vitals Vital Signs Date Time Temp Pulse Resp B/P Pulse Ox O2 Delivery O2 Flow Rate FiO2 05/09/17 19:00 95/83 97 Mechanical Ventilator 05/09/17 18:45 56 18 05/09/17 18:42 30 05/09/17 18:41 88.8 05/09/17 09:00 5.0 Intake and Output 05/08/17 05/08/17 05/09/17 15:00 23:00 07:00 Intake Total 600 ml 350 ml Balance 600 ml 350 ml Exam Constitutional: alert, oriented, well developed Psych: nl mood/affect, no complaints Head: atraumatic, normocephalic Eyes: EOMI, PERRL, nl conjunctiva, nl lids, nl sclera ENMT: nl external ears & nose, nl lips & teeth, nl nasal mucosa & septum Neck: non-tender, supple Respiratory: clear to auscultation, normal air movement Cardiovascular: nl pulses, regular rate and rhythm Gastrointestinal: nl liver, spleen, non-tender, soft Musculoskeletal: nl extremities to inspection, nl gait and stance Extremities: normal pulses 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, nl mental status, nl speech, nl strength Skin: nl turgor, No rash or lesions Lymph: nl lymph nodes Results Result Diagram: 05/09/17 0644 05/09/17 0644 Results 24 hrs Laboratory Tests Test 05/09/17 06:44 05/09/17 11:51 05/09/17 17:57 White Blood Count 3.7 L Red Blood Count 3.39 L Hemoglobin 9.6 L Hematocrit 34.2 L Mean Corpuscular Volume 100.9 Mean Corpuscular Hemoglobin 28.3 L Mean Corpuscular Hemoglobin Concent 28.1 L Red Cell Distribution Width 19.6 H Platelet Count 166 Mean Platelet Volume 9.9 Neutrophils % 57.7 Lymphocytes % 23.6 Monocytes % 6.5 Eosinophils % 11.4 H Basophils % 0.3 Nucleated Red Blood Cells % 0.0 Neutrophils # 2.1 Lymphocytes # 0.9 Monocytes # 0.2 L Eosinophils # 0.4 Basophils # 0.0 Nucleated Red Blood Cells # 0.0 Sodium Level 147 H Potassium Level 4.2 Chloride Level 105 Carbon Dioxide Level 26 Anion Gap 20 H Blood Urea Nitrogen 73 H Creatinine 2.71 H Glucose Level 110 Calcium Level 9.0 Phosphorus Level 8.7 H Magnesium Level 2.0 Lab Scanned Report LAB Bedside Glucose 79 Medications Medications Current Medications Atorvastatin Calcium (Lipitor) 10 mg QHS GTB ; Start 05/06/17 at 21:00 Bisacodyl (Dulcolax Supp) 10 mg Q48H [place] Last administered on 05/08/17t 17:59; Admin Dose 10 MG; Start 05/06/17 at 17:00 Carbidopa/Levodopa (Sinemet (25/ 100)) 1 tab TID GTB ; Start 05/06/17 at 21:00 Clopidogrel Bisulfate (plaVIX) 75 mg DAILY GTB ; Start 05/07/17 at 09:00 Donepezil HCl (Aricept) 10 mg QHS GTB ; Start 05/06/17 at 21:00 Ferrous Sulfate (Ferrous Sulfate (Ec)) 325 mg BID PO ; Start 05/06/17 at 21:00 Folic Acid (Folic Acid) 1 mg DAILY GTB ; Start 05/07/17 at 09:00 Furosemide (Lasix) 40 mg DAILY GTB ; Start 05/07/17 at 09:00 Lactobacillus Acidophilus/ Rhamnosus (Culturelle) 1 cap QHS GTB ; Start at 21:00 Magnesium Hydroxide (Milk Of Mag) 30 ml Q24H GTB ; Start 05/06/17 at 17:00 Memantine (Namenda) 5 mg QAM GTB ; Start 05/07/17 at 09:00 Metoprolol Tartrate (Lopressor) 25 mg Q12H GTB ; Start 05/06/17 at 17:00 Multivit/Ca Carb/ B Cmplx/FA/Prenat (Radhika-John) 1 tab DAILY GTB ; Start at 09:00 Pramipexole (Mirapex) 0.5 mg DAILY GTB ; Start 05/07/17 at 09:00 Sodium Biphosphate/ Sodium Phosphate (Fleet Enema Pediatric) 118 ml Q72H PRN [place] CONSTIPATION; Start 05/06/17 at 17:00 Citric Acid/ Sodium Citrate (Bicitra) 30 ml BID PO ; Start 05/06/17 at 21:00 Heparin Sodium (Porcine) 5000 unit 5,000 unit BID SC Last administered on 09:54; Admin Dose 5,000 UNIT; Start 05/06/17 at 21:00 Dextrose (D5W) 1,000 ml @ 50 mls/hr Q20H IV Last administered on 05/09/17 05: 20; Admin Dose 50 MLS/HR; Start 05/06/17 at 17:00 Permethrin (Elimite 5% Cr) 1 applic ONCE ONCE TOP ; Start 05/09/17 at 21:00; Stop 05/09/17 at 21:01 Nystatin (Nystatin Powder) 1 applic BID TOP ; Start 05/09/17 at 21:00 Mupirocin (Bactroban) 1 applic BID TOP Last administered on 05/09/17 13:24; Admin Dose 1 APPLIC; Start 05/09/17 at 12:30 Collagenase (Santyl) 1 applic DAILY TOP Last administered on 05/09/17 15:27; Admin Dose 1 APPLIC; Start 05/09/17 at 15:00 Collagenase 1 applic 1 applic PRN PRN TOP WOUND CARE; Start 05/09/17 at 14:00 Meropenem/Sodium Chloride 50 ml @ 100 mls/hr Q12 IVPB Last administered on 15:27; Admin Dose 100 MLS/HR; Start 7/20/17 at 15:00 Vancomycin HCl 250 ml @ 125 mls/hr Q48H IVPB ; Start 05/11/17 at 16:00 Sodium Chloride 1,000 ml @ 0 mls/hr Q0M IV ; Start 05/09/17 at 18:18 Norepinephrine (Levophed) 250 ml @ 1.875 mls/ hr TITRATE IV Last administered on 05/09/17t 19:03; Admin Dose 56.25 MLS/HR; Start 05/09/17 at 18:45 SYLWIA SY MD May 09, 2017 19:07
[2017-05-09] MEDS: ATORVASTATIN 10 MG TAB GTB SCH (21:00)
[2017-05-09] MEDS ORDERED: PERMETHRIN 5% 60 GM CR TOP ONE (21:00)
[2017-05-09] MEDS ORDERED: MUPIROCIN 2% 22 GM OINT TOP SCH (21:00)
[2017-05-09] MEDS: DONEPEZIL 10 MG TAB GTB SCH (21:00)
[2017-05-09] MEDS: LACTOBACILLUS RHAMNOSUS CAP GTB SCH (21:00)
[2017-05-09] MEDS ORDERED: SOD CHLORIDE 0.9% 1,000 ML IV ONE (22:00)
[2017-05-09] MEDS: NYSTATIN 30 GM POWDER BTL TOP SCH (23:13)
[2017-05-09 23:18] LABS: AADO2 Arterial 177.2 mmHg (7.0-24.0); Allen Test ACCEPTAB; Arterial Base Excess -3.9 mmol/L (-3.0-3); Arterial COHb 0.4 % (0.0-3.0); Arterial Fraction of Oxyhgb 90.2 % (93.0-99.0); Arterial HCO3 21.7 mmol/L (22.0-26.0); Arterial MetHb 0.4 % (0.0-1.5); Arterial Total Hemglobin 9.3 g/dl (12.0-18.0); MODE TRACH COLLAR
[2017-05-09 23:20] LABS: AADO2 Arterial 103.7 mmHg (7.0-24.0); Allen Test ACCEPTAB; Arterial Base Excess -5.4 mmol/L (-3.0-3); Arterial COHb 0.6 % (0.0-3.0); Arterial Fraction of Oxyhgb 91.5 % (93.0-99.0); Arterial HCO3 19.5 mmol/L (22.0-26.0); Arterial MetHb 0.4 % (0.0-1.5); Arterial Total Hemglobin 10.2 g/dl (12.0-18.0); Blood Gas Low PEEP Setting 0 cmH2O; MODE VENT - AC
[2017-05-10] VITALS (96 sets, daily range): BP systolic 76–180; BP diastolic 29–87; PULSE 69–125; RESP 12–27; Ht 165.1 cm; Wt 91.3 kg
[2017-05-10] MEDS: MEROPENEM 1 GM/50ML(PMX) 50 ML IVPB SCH ×3 (01:08→20:54)
[2017-05-10 04:58] LABS: ADD SCAN DIFF NO
[2017-05-10] MEDS: METOPROLOL 25 MG TAB GTB SCH ×2 (05:00→17:00)
[2017-05-10 05:15] LABS: ABNORMAL IP MESSAGE 1; EOSINOPHILS % 0.5 % (0.0-7.0); HEMATOCRIT 28.6 % (37.0-47.0); HEMOGLOBIN 8.2 g/dl (12.0-16.0); LYMPHOCYTES # 0.1 10^3/ul (0.8-2.9); MEAN CORPUSCULAR HEMOGLOBIN 28.3 pg (29.0-33.0); MEAN CORPUSCULAR HGB CONC 28.7 g/dl (32.0-37.0); MEAN CORPUSCULAR VOLUME 98.6 fl (82.0-101.0); MEAN PLATELET VOLUME 10.3 fl (7.4-10.4); MONOCYTES % 0.7 % (0.0-11.0); NEUTROPHIL # 5.7 10^3/ul (1.6-7.5); PLATELET COUNT 118 10^3/UL (140-415); RED CELL DISTRIBUTION WIDTH 19.6 % (11.5-14.5); WHITE BLOOD COUNT 5.9 10^3/ul (4.8-10.8)
[2017-05-10 05:35] LABS: CALCIUM 7.7 mg/dl (8.4-10.2); CREATININE 2.64 mg/dl (0.44-1.00); MAGNESIUM 1.4 mg/dl (1.7-2.5); PHOSPHORUS 6.1 mg/dl (2.5-4.9); POTASSIUM 3.4 mmol/L (3.5-5.1)
[2017-05-10 06:26] LABS: NEUTROPHILS % 96.5 % (39.0-77.0)
[2017-05-10] MEDS: SOD CHLORIDE 0.45% 1,000 ML IV SCH ×2 (07:00→17:28)
[2017-05-10] MEDS ORDERED: POTASSIUM CHLORIDE 250 ML IVPB ONE (07:00)
[2017-05-10] MEDS ORDERED: MAGNESIUM SULFATE 2 GM/50 ML 50 ML IVPB ONE (07:00)
--- NOTE | 2017-05-10 08:19 | PN ---
Date/Time of Note Date/Time of Note DATE: 05/10/17 TIME: 08:14 Assessment/Plan VTE Prophylaxis VTE Prophylaxis Intervention: other Lines/Catheters IV Catheter Type (from [facility] Peripheral IV Assessment/Plan Chief Complaint/Hosp Course 1. Septic shock Etiology likely multifactorial, pneumonia, cellulitis, wounds, questionable GI source Patient on pressor support, IV fluids, broad-spectrum antibiotics Continue current treatment plan, check a CT scan abdomen pelvis to rule out GI source Follow-up with infectious disease, monitor serial lactic acid levels dysphagia- g tube dislodged, Continue to monitor Follow-up with GI Acute hypoxemic respiratory failure status post trach Patient placed back on vent Follow-up ABG chest x-ray Follow-up appointment 3. Nonoliguric acute kidney injury on top of chronic kidney disease stage 4. Etiology hemodynamics, possible progression of disease We will check urine lites UA. Monitor closely Place Collazo catheter No immediate need for renal replacement therapy at this time 4. Hypernatremia Continue hypotonic fluid 5. r/o scabies -treat with permethrin -id consult 6. chf -cont med/royce -f/u cardiology Defer diuretics in setting of shock 8. Acute encephalopathy and advanced dementia. Etiology is toxic metabolic. Continue to monitor. 9. Mineral bone disorder. Continue to monitor calcium and phosphorus levels. 10. Anemia. Will continue to monitor H and H levels. Continue Epogen. 11. Coronary artery disease. Continue medical management. 12. Diabetes. Continue Accu-Cheks and insulin sliding scale. 13. Decubitus wound. Continue wound care. Gastrointestinal and deep venous thrombosis prophylaxis. Continue proton pump inhibitor and heparin. Hypomagnesemia Replete magnesium sulfate Problems: Subjective 24 Hr Interval Summary Free Text/Dictation Patient yesterday was noted to be hypotensive, a hypothermic on telemetry went into septic shock was transferred to the ICU. Patient has been placed on pressor support IV fluids. No other acute events noted overnight I spoke with the patient's son Raymundo informing him and updating them on his mother's condition Exam/Review of Systems Vital Signs Vitals Vital Signs Date Time Temp Pulse Resp B/P Pulse Ox O2 Delivery O2 Flow Rate FiO2 05/10/17 08:00 97.7 84 26 128/40 96 Mechanical Ventilator 05/10/17 06:03 30 05/09/17 15:00 5.0 Intake and Output 05/09/17 05/09/17 05/10/17 15:00 23:00 07:00 Intake Total 1237.500 ml 1965.625 ml Balance 1237.500 ml 1965.625 ml Exam General: no acute distress HEENT: NC/AT. NECK: NO JVD. no stridor. S/P trach on O2 CV: RRR. systolic murmur; no gallop or rubs. PULM: no wheezing anteriorly GI: SOFT, NT, ND, no rebound or guarding Extremity: trace B/L LE edema. no clubbing. neuro: opens her eyes to painful stimuli. does not follow commands Psych: calm and pleasant rectal: deferred Results Result Diagram: 05/10/175 05/10/17444 Results 24 hrs Laboratory Tests Test 05/09/17 11:51 05/09/17 17:57 05/09/17 18:13 05/09/17 20:45 Lab Scanned Report LAB Bedside Glucose 79 Blood Gas Specimen Source Blood arterial Arterial Blood Date Drawn 05/09/2017 6:22:00 PM Arterial Blood pH (Temp corrected) 7.347 L Arterial Blood pCO2 (Temp correct) 40.0 Arterial Blood pO2 (Temp corrected) 63.1 L Arterial Blood HCO3 21.7 L Arterial Blood Base Excess -3.9 L Arterial Blood Oxygen Saturation 90.9 L Faustino Test ACCEPTAB Arterial Blood Gas Puncture Site Right Radial Arterial Blood Carboxyhemoglobin 0.4 Arterial Blood Methemoglobin 0.4 Blood Gas A-a O2 Differential 177.2 H Oxyhemoglobin Percent 90.2 L Total Hemoglobin 9.3 L Blood Gas Temperature 36.0 Blood Gas Modality TRACH COLLAR FiO2 40.0 Blood Gas Notified Whom ab Blood Gas Notified Time 05/09/2017 6:26:00 PM Lactic Acid Level 3.8 *H Test 05/09/17 23:00 05/10/17 04:45 Blood Gas Specimen Source Blood arterial Arterial Blood Date Drawn 05/09/2017 11:10:04 PM Arterial Blood pH (Temp corrected) 7.358 Arterial Blood pCO2 (Temp correct) 35.4 Arterial Blood pO2 (Temp corrected) 68.6 L Arterial Blood HCO3 19.5 L Arterial Blood Base Excess -5.4 L Arterial Blood Oxygen Saturation 92.4 L Faustino Test ACCEPTAB Arterial Blood Gas Puncture Site Right Radial Arterial Blood Carboxyhemoglobin 0.6 Arterial Blood Methemoglobin 0.4 Blood Gas A-a O2 Differential 103.7 H Oxyhemoglobin Percent 91.5 L Total Hemoglobin 10.2 L Blood Gas Temperature 37.0 Blood Gas Respiration Rate 12.0 Blood Gas Actual Respiration Rate 12 Blood Gas Modality VENT - AC FiO2 30.0 Blood Gas Tidal Volume 500.0 Blood Gas Low PEEP Setting 0 Blood Gas Notified Whom MA Blood Gas Notified Time 05/09/2017 11:20:44 PM White Blood Count 5.9 # Red Blood Count 2.90 L Hemoglobin 8.2 L Hematocrit 28.6 L Mean Corpuscular Volume 98.6 Mean Corpuscular Hemoglobin 28.3 L Mean Corpuscular Hemoglobin Concent 28.7 L Red Cell Distribution Width 19.6 H Platelet Count 118 #L Mean Platelet Volume 10.3 Neutrophils % 96.5 H Lymphocytes % 2.0 L Monocytes % 0.7 Eosinophils % 0.5 Basophils % 0.0 Neutrophils # 5.7 Lymphocytes # 0.1 L Monocytes # 0.0 L Eosinophils # 0.0 Basophils # 0.0 Nucleated Red Blood Cells # 0.0 Sodium Level 146 H Potassium Level 3.4 L Chloride Level 112 H Carbon Dioxide Level 20 L Anion Gap 17 H Blood Urea Nitrogen 65 H Creatinine 2.64 H Glucose Level 100 Lactic Acid Level 2.6 *H Calcium Level 7.7 L Phosphorus Level 6.1 #H Magnesium Level 1.4 L Random Cortisol 20.3 Medications Medications Current Medications Atorvastatin Calcium (Lipitor) 10 mg QHS GTB ; Start 05/06/17 at 21:00 Bisacodyl (Dulcolax Supp) 10 mg Q48H ID Last administered on 05/08/17t 17:59; Admin Dose 10 MG; Start 05/06/17 at 17:00 Carbidopa/Levodopa (Sinemet (25/ 100)) 1 tab TID GTB ; Start 05/06/17 at 21:00 Clopidogrel Bisulfate (plaVIX) 75 mg DAILY GTB ; Start 05/07/17 at 09:00 Donepezil HCl (Aricept) 10 mg QHS GTB ; Start 05/06/17 at 21:00 Ferrous Sulfate (Ferrous Sulfate (Ec)) 325 mg BID PO ; Start 05/06/17 at 21:00 Folic Acid (Folic Acid) 1 mg DAILY GTB ; Start 05/07/17 at 09:00 Furosemide (Lasix) 40 mg DAILY GTB ; Start 05/07/17 at 09:00 Lactobacillus Acidophilus/ Rhamnosus (Culturelle) 1 cap QHS GTB ; Start at 21:00 Magnesium Hydroxide (Milk Of Mag) 30 ml Q24H GTB ; Start 05/06/17 at 17:00 Memantine (Namenda) 5 mg QAM GTB ; Start 05/07/17 at 09:00 Metoprolol Tartrate (Lopressor) 25 mg Q12H GTB ; Start 05/06/17 at 17:00 Multivit/Ca Carb/ B Cmplx/FA/Prenat (Radhika-John) 1 tab DAILY GTB ; Start at 09:00 Pramipexole (Mirapex) 0.5 mg DAILY GTB ; Start 05/07/17 at 09:00 Sodium Biphosphate/ Sodium Phosphate (Fleet Enema Pediatric) 118 ml Q72H PRN [place] CONSTIPATION; Start 05/06/17 at 17:00 Citric Acid/ Sodium Citrate (Bicitra) 30 ml BID PO ; Start 05/06/17 at 21:00 Heparin Sodium (Porcine) (Heparin (5000 Units/0.5 ml)) 5,000 unit BID SC Last administered on 05/09/17 21:08; Admin Dose 5,000 UNIT; Start 05/06/17 at 21:00 Nystatin (Nystatin Powder) 1 applic BID TOP Last administered on 05/09/17 23: 13; Admin Dose 1 APPLIC; Start 05/09/17 at 21:00 Mupirocin (Bactroban) 1 applic BID TOP Last administered on 05/09/17 23:14; Admin Dose 1 APPLIC; Start 05/09/17 at 12:30 Collagenase (Santyl) 1 applic DAILY TOP Last administered on 05/09/17 15:27; Admin Dose 1 APPLIC; Start 05/09/17 at 15:00 Collagenase 1 applic 1 applic PRN PRN TOP WOUND CARE; Start 05/09/17 at 14:00 Meropenem/Sodium Chloride 50 ml @ 100 mls/hr Q12 IVPB Last administered on 01:08; Admin Dose 100 MLS/HR; Start 05/09/17 at 15:00 Vancomycin HCl 250 ml @ 125 mls/hr Q48H IVPB ; Start 05/11/17 at 16:00 Sodium Chloride 1,000 ml @ 0 mls/hr Q0M IV ; Start 05/09/17 at 18:18 Norepinephrine 250 ml @ 1.875 mls/ hr TITRATE IV Last administered on t 19:03; Admin Dose 56.25 MLS/HR; Start 05/09/17 at 18:45 Sodium Chloride 1,000 ml @ 100 mls/hr Q10H IV ; Start 05/10/17 at 07:00 Potassium Chloride 250 ml @ 62.5 mls/hr ONCE ONCE IVPB ; Start 05/10/17 at 07: 00; Stop 05/10/17 at 10:59 Magnesium Sulfate (Magnesium Sulfate 2 Gm/50 ml) 50 ml @ 25 mls/hr ONCE ONCE IVPB ; Start 05/10/17 at 07:00; Stop 05/10/17 at 08:59 OSMAR MONTAGUE DO May 10, 2017 08:19
[2017-05-10] MEDS: HEPARIN 5,000 UNIT/0.5 ML VIAL SC SCH ×2 (08:40→21:03)
[2017-05-10] MEDS: FOLIC ACID 1 MG TAB GTB SCH (08:52)
[2017-05-10] MEDS: FUROSEMIDE 40 MG/4 ML CUP GTB SCH (08:52)
[2017-05-10] MEDS: PRAMIPEXOLE 0.25 MG TAB GTB SCH (08:53)
[2017-05-10] MEDS: MEMANTINE 5 MG TAB GTB SCH (08:53)
[2017-05-10] MEDS: CLOPIDOGREL 75 MG TAB GTB SCH (08:53)
[2017-05-10] MEDS: CITRIC ACID/NA CITRATE 30 ML CUP PO SCH ×2 (08:54→20:11)
[2017-05-10] MEDS: MULTIVIT/CA CARB/B CMPLX/FA TAB GTB SCH (08:54)
[2017-05-10] MEDS: CARBIDOPA/LEVODOPA (25/100) TAB GTB SCH ×3 (08:54→20:11)
[2017-05-10] MEDS: MUPIROCIN 2% 22 GM OINT TOP SCH ×2 (08:55→20:54)
[2017-05-10] MEDS: FERROUS SULFATE (EC) 325 MG TAB PO SCH ×2 (08:55→20:11)
--- NOTE | 2017-05-10 09:43 | RADRPT ---
PROCEDURE: XR Chest. CLINICAL INDICATION: pna TECHNIQUE: Single frontal view of the chest was obtained COMPARISON: Chest x-ray 05/09/2017 FINDINGS: A tracheostomy tube remains in adequate position. The cardiac silhouette is mildly enlarged. There is evidence of mild persistent pulmonary vascular congestion, likely not significantly changed . Moderate left pleural effusion with possible loculated component, likely not significantly changed c ompared to prior study. A small right pleural effusion is stable to slightly increased in size. No pneumothorax is identified. There are degenerative changes of the visualized spine. IMPRESSION: 1. Mild cardiomegaly and pulmonary vascular congestion, likely not significantly changed compared t o prior study. 2. Moderate left pleural effusion with possible loculated component, overall likely not significant changed in size. 3. Small right pleural effusion, stable to slightly increased in size. RPTAT: PP Physician Daphne Date Time Electronically viewed and signed by Physician Daphne on 05/10/2017 09:42 /
[2017-05-10] MEDS: NYSTATIN 30 GM POWDER BTL TOP SCH ×2 (10:50→20:54)
--- NOTE | 2017-05-10 11:12 | CONS ---
Date/Time of Note Date/Time of Note DATE: 05/10/17 TIME: 11:09 Assessment/Plan Assessment/Plan Chief Complaint/Hosp Course Assessment 1. Vent dependent respiratory failure - continue current mechanical ventilation 2. Septic shock -Panculture broad-spectrum antibiotics continue vasopressor support 3. Hypernatremia renal insufficiency -Continue renal recommendations 4. Dysphagia -GI recommendations regarding G-tube 5. Chronic anemia likely secondary to chronic disease -Transfuse packed red blood cells if hemoglobin drops any further 6. DVT and GI prophylaxis Disposition Continue ICU care Consider addressing CODE STATUS Problems: Consultation Date/Type/Reason Admit Date/Time May 06, 2017 at 16:34 Date of Consultation: May 10, 2017 Reason for Consultation Ventilator management Hx of Present Illness 86-year-old lady with multiple medical problems including chronic encephalopathy , vent dependent respiratory failure dysphagia recurrent sepsis [facility]lod[facility]. Yesterday she became more altered with worsening respiratory distress requiring transfer to intensive care unit and initiation of vasopressor support. She remains unresponsive which I think is close to her baseline neurological status. Currently on low-dose Levophed. Psychological: nl mood/affect, no complaints Past Medical History Vent dependent respiratory failure Dysphagia with G-tube Recurrent sepsis Chronic encephalopathy Medical History: congestive heart failure, renal disease Past Surgical History Past Surgical Hx: endoscopy Social History Alcohol Use: none Smoking Status: Unknown if ever smoked Drug Use: none Exam/Review of Systems Vital Signs Vitals Vital Signs Date Time Temp Pulse Resp B/P Pulse Ox O2 Delivery O2 Flow Rate FiO2 05/10/17 09:30 94 22 111/35 96 05/10/17 09:00 Mechanical Ventilator 05/10/17 08:00 97.7 05/10/17 06:03 30 05/09/17 15:00 5.0 Intake and Output 05/09/17 05/09/17 05/10/17 15:00 23:00 07:00 Intake Total 1237.500 ml 1965.625 ml Balance 1237.500 ml 1965.625 ml Exam PHYSICAL EXAMINATION GENERAL: Elderly lady on mechanical ventilation via tracheostomy VITAL SIGNS: see below. HEENT: Pupils equal, round, and reactive to light. Tracheostomy site clean and intact. CARDIAC: S1, S2, 1/6 systolic ejection murmur CHEST: Diminished air entry bilaterally. ABDOMEN: Mildly distended. Bowel sounds present no guarding or rebound EXTREMITIES: No cyanosis, clubbing edema +1 NEUROLOGIC: Generalized weakness Results Result Diagram: 05/10/17 0445 05/10/17 0445 Results 24 hrs Laboratory Tests Test 05/09/17 11:51 05/09/17 17:57 05/09/17 18:13 05/09/17 20:45 Lab Scanned Report LAB Bedside Glucose 79 Blood Gas Specimen Source Blood arterial Arterial Blood Date Drawn 05/09/2017 6:22:00 PM Arterial Blood pH (Temp corrected) 7.347 L Arterial Blood pCO2 (Temp correct) 40.0 Arterial Blood pO2 (Temp corrected) 63.1 L Arterial Blood HCO3 21.7 L Arterial Blood Base Excess -3.9 L Arterial Blood Oxygen Saturation 90.9 L Faustino Test ACCEPTAB Arterial Blood Gas Puncture Site Right Radial Arterial Blood Carboxyhemoglobin 0.4 Arterial Blood Methemoglobin 0.4 Blood Gas A-a O2 Differential 177.2 H Oxyhemoglobin Percent 90.2 L Total Hemoglobin 9.3 L Blood Gas Temperature 36.0 Blood Gas Modality TRACH COLLAR FiO2 40.0 Blood Gas Notified Whom ab Blood Gas Notified Time 05/09/2017 6:26:00 PM Lactic Acid Level 3.8 *H Test 05/09/17 23:00 05/10/17 04:45 Blood Gas Specimen Source Blood arterial Arterial Blood Date Drawn 05/09/2017 11:10:04 PM Arterial Blood pH (Temp corrected) 7.358 Arterial Blood pCO2 (Temp correct) 35.4 Arterial Blood pO2 (Temp corrected) 68.6 L Arterial Blood HCO3 19.5 L Arterial Blood Base Excess -5.4 L Arterial Blood Oxygen Saturation 92.4 L Faustino Test ACCEPTAB Arterial Blood Gas Puncture Site Right Radial Arterial Blood Carboxyhemoglobin 0.6 Arterial Blood Methemoglobin 0.4 Blood Gas A-a O2 Differential 103.7 H Oxyhemoglobin Percent 91.5 L Total Hemoglobin 10.2 L Blood Gas Temperature 37.0 Blood Gas Respiration Rate 12.0 Blood Gas Actual Respiration Rate 12 Blood Gas Modality VENT - AC FiO2 30.0 Blood Gas Tidal Volume 500.0 Blood Gas Low PEEP Setting 0 Blood Gas Notified Whom MA Blood Gas Notified Time 05/09/2017 11:20:44 PM White Blood Count 5.9 # Red Blood Count 2.90 L Hemoglobin 8.2 L Hematocrit 28.6 L Mean Corpuscular Volume 98.6 Mean Corpuscular Hemoglobin 28.3 L Mean Corpuscular Hemoglobin Concent 28.7 L Red Cell Distribution Width 19.6 H Platelet Count 118 #L Mean Platelet Volume 10.3 Neutrophils % 96.5 H Lymphocytes % 2.0 L Monocytes % 0.7 Eosinophils % 0.5 Basophils % 0.0 Neutrophils # 5.7 Lymphocytes # 0.1 L Monocytes # 0.0 L Eosinophils # 0.0 Basophils # 0.0 Nucleated Red Blood Cells # 0.0 Sodium Level 146 H Potassium Level 3.4 L Chloride Level 112 H Carbon Dioxide Level 20 L Anion Gap 17 H Blood Urea Nitrogen 65 H Creatinine 2.64 H Glucose Level 100 Lactic Acid Level 2.6 *H Calcium Level 7.7 L Phosphorus Level 6.1 #H Magnesium Level 1.4 L Random Cortisol 20.3 Medications Medications Current Medications Atorvastatin Calcium (Lipitor) 10 mg QHS GTB ; Start 05/06/17 at 21:00 Bisacodyl (Dulcolax Supp) 10 mg Q48H ME Last administered on 05/08/17t 17:59; Admin Dose 10 MG; Start 05/06/17 at 17:00 Carbidopa/Levodopa (Sinemet (25/ 100)) 1 tab TID GTB ; Start 05/06/17 at 21:00 Clopidogrel Bisulfate (plaVIX) 75 mg DAILY GTB ; Start 05/07/17 at 09:00 Donepezil HCl (Aricept) 10 mg QHS GTB ; Start 05/06/17 at 21:00 Ferrous Sulfate (Ferrous Sulfate (Ec)) 325 mg BID PO ; Start 05/06/17 at 21:00 Folic Acid (Folic Acid) 1 mg DAILY GTB ; Start 05/07/17 at 09:00 Furosemide (Lasix) 40 mg DAILY GTB ; Start 05/07/17 at 09:00 Lactobacillus Acidophilus/ Rhamnosus (Culturelle) 1 cap QHS GTB ; Start at 21:00 Magnesium Hydroxide (Milk Of Mag) 30 ml Q24H GTB ; Start 05/06/17 at 17:00 Memantine (Namenda) 5 mg QAM GTB ; Start 05/07/17 at 09:00 Metoprolol Tartrate (Lopressor) 25 mg Q12H GTB ; Start 05/06/17 at 17:00 Multivit/Ca Carb/ B Cmplx/FA/Prenat (Radhika-John) 1 tab DAILY GTB ; Start at 09:00 Pramipexole (Mirapex) 0.5 mg DAILY GTB ; Start 05/07/17 at 09:00 Sodium Biphosphate/ Sodium Phosphate (Fleet Enema Pediatric) 118 ml Q72H PRN [place] CONSTIPATION; Start 05/06/17 at 17:00 Citric Acid/ Sodium Citrate (Bicitra) 30 ml BID PO ; Start 05/06/17 at 21:00 Heparin Sodium (Porcine) (Heparin (5000 Units/0.5 ml)) 5,000 unit BID SC Last administered on 05/10/17 08:40; Admin Dose 5,000 UNIT; Start 05/06/17 at 21:00 Nystatin (Nystatin Powder) 1 applic BID TOP Last administered on 05/10/17 10: 50; Admin Dose 1 APPLIC; Start 05/09/17 at 21:00 Mupirocin (Bactroban) 1 applic BID TOP Last administered on 05/10/17 08:55; Admin Dose 1 APPLIC; Start 05/09/17 at 12:30 Collagenase (Santyl) 1 applic DAILY TOP Last administered on 05/09/17 15:27; Admin Dose 1 APPLIC; Start 05/09/17 at 15:00 Collagenase 1 applic 1 applic PRN PRN TOP WOUND CARE; Start 05/09/17 at 14:00 Meropenem/Sodium Chloride 50 ml @ 100 mls/hr Q12 IVPB Last administered on 10:50; Admin Dose 100 MLS/HR; Start 05/09/17 at 15:00 Vancomycin HCl 250 ml @ 125 mls/hr Q48H IVPB ; Start 05/11/17 at 16:00 Sodium Chloride 1,000 ml @ 0 mls/hr Q0M IV ; Start 05/09/17 at 18:18 Norepinephrine 250 ml @ 1.875 mls/ hr TITRATE IV Last administered on 19:03; Admin Dose 56.25 MLS/HR; Start 05/09/17 at 18:45 Sodium Chloride (1/2 NS) 1,000 ml @ 100 mls/hr Q10H IV ; Start 05/10/17 at 07: 00 JARED CLAIRE MD, [facility] May 10, 2017 11:12
--- NOTE | 2017-05-10 12:34 | CONS ---
Date/Time of Note Date/Time of Note DATE: 05/10/17 TIME: 12:30 Assessment/Plan Assessment/Plan Chief Complaint/Hosp Course Patient was transferred to ICU secondary to hypotension, started on vasopressor support. She is lying comfortably in bed, nonverbal, noncommunicative Temperature 97.7 pulse 88 respirations 17 blood pressure 113/35 saturation 96% on FiO2 of 30 Microbiology: Blood cultures remain negative Indwelling's: Trach, Collazo, PICC line Antibiotics: Vancomycin meropenem Physical examination: Chronically ill-appearing elderly woman in no distress head atraumatic normocephalic sclera nonicteric bugle mucosa dry neck is supple tracheostomy present chest rise symmetrical breath sounds diminished heart S1- S2 abdomen soft bowel sounds present extremities with trace edema skin positive for anasarca and macular papular rash in various stages of healing Assessment: 1. Septic shock 2. Possible healthcare associated pneumonia 3. G-tube malfunction 4. Rash, no scabies per skin scraping 5. Chronic respiratory failure 6. Multiple chronic decubitus 7. 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 Plan: Continue antibiotics, check urine culture, continue vent support per pulmonary, local wound care, follow GI recommendations Discussed with RN Problems: Consultation Date/Type/Reason Admit Date/Time May 06, 2017 at 16:34 Initial Consult Date 05/09/17 Type of Consultation: id Exam/Review of Systems Vital Signs Vitals Vital Signs Date Time Temp Pulse Resp B/P Pulse Ox O2 Delivery O2 Flow Rate FiO2 05/10/17 11:00 88 17 98 30 05/10/17 09:30 111/35 05/10/17 09:00 Mechanical Ventilator 05/10/17 08:00 97.7 05/09/17 15:00 5.0 Intake and Output 05/09/17 05/09/17 05/10/17 15:00 23:00 07:00 Intake Total 1237.500 ml 1965.625 ml Balance 1237.500 ml 1965.625 ml Results Result Diagram: 05/10/17 0445 05/10/17 0445 Results 24 hrs Laboratory Tests Test 05/09/17 17:57 05/09/17 18:13 05/09/17 20:45 05/09/17 23:00 Bedside Glucose 79 Blood Gas Specimen Source Blood arterial Blood arterial Arterial Blood Date Drawn 05/09/2017 6:22:00 PM 05/09/2017 11:10:04 PM Arterial Blood pH (Temp corrected) 7.347 L 7.358 Arterial Blood pCO2 (Temp correct) 40.0 35.4 Arterial Blood pO2 (Temp corrected) 63.1 L 68.6 L Arterial Blood HCO3 21.7 L 19.5 L Arterial Blood Base Excess -3.9 L -5.4 L Arterial Blood Oxygen Saturation 90.9 L 92.4 L Faustino Test ACCEPTAB ACCEPTAB Arterial Blood Gas Puncture Site Right Radial Right Radial Arterial Blood Carboxyhemoglobin 0.4 0.6 Arterial Blood Methemoglobin 0.4 0.4 Blood Gas A-a O2 Differential 177.2 H 103.7 H Oxyhemoglobin Percent 90.2 L 91.5 L Total Hemoglobin 9.3 L 10.2 L Blood Gas Temperature 36.0 37.0 Blood Gas Modality TRACH COLLAR VENT - AC FiO2 40.0 30.0 Blood Gas Notified Whom ab GARCIA Blood Gas Notified Time 05/09/2017 6:26:00 PM 05/09/2017 11:20:44 PM Lactic Acid Level 3.8 *H Blood Gas Respiration Rate 12.0 Blood Gas Actual Respiration Rate 12 Blood Gas Tidal Volume 500.0 Blood Gas Low PEEP Setting 0 Test 05/10/17 04:45 White Blood Count 5.9 # Red Blood Count 2.90 L Hemoglobin 8.2 L Hematocrit 28.6 L Mean Corpuscular Volume 98.6 Mean Corpuscular Hemoglobin 28.3 L Mean Corpuscular Hemoglobin Concent 28.7 L Red Cell Distribution Width 19.6 H Platelet Count 118 #L Mean Platelet Volume 10.3 Neutrophils % 96.5 H Lymphocytes % 2.0 L Monocytes % 0.7 Eosinophils % 0.5 Basophils % 0.0 Neutrophils # 5.7 Lymphocytes # 0.1 L Monocytes # 0.0 L Eosinophils # 0.0 Basophils # 0.0 Nucleated Red Blood Cells # 0.0 Sodium Level 146 H Potassium Level 3.4 L Chloride Level 112 H Carbon Dioxide Level 20 L Anion Gap 17 H Blood Urea Nitrogen 65 H Creatinine 2.64 H Glucose Level 100 Lactic Acid Level 2.6 *H Calcium Level 7.7 L Phosphorus Level 6.1 #H Magnesium Level 1.4 L Random Cortisol 20.3 Medications Medications Current Medications Atorvastatin Calcium (Lipitor) 10 mg QHS GTB ; Start 05/06/17 at 21:00 Bisacodyl (Dulcolax Supp) 10 mg Q48H [place] Last administered on 05/08/17 17:59; Admin Dose 10 MG; Start 05/06/17 at 17:00 Carbidopa/Levodopa (Sinemet (25/ 100)) 1 tab TID GTB ; Start 05/06/17 at 21:00 Clopidogrel Bisulfate (plaVIX) 75 mg DAILY GTB ; Start 05/07/17 at 09:00 Donepezil HCl (Aricept) 10 mg QHS GTB ; Start 05/06/17 at 21:00 Ferrous Sulfate (Ferrous Sulfate (Ec)) 325 mg BID PO ; Start 05/06/17 at 21:00 Folic Acid (Folic Acid) 1 mg DAILY GTB ; Start 05/07/17 at 09:00 Furosemide (Lasix) 40 mg DAILY GTB ; Start 05/07/17 at 09:00 Lactobacillus Acidophilus/ Rhamnosus (Culturelle) 1 cap QHS GTB ; Start at 21:00 Magnesium Hydroxide (Milk Of Mag) 30 ml Q24H GTB ; Start 05/06/17 at 17:00 Memantine (Namenda) 5 mg QAM GTB ; Start 05/07/17 at 09:00 Metoprolol Tartrate (Lopressor) 25 mg Q12H GTB ; Start 05/06/17 at 17:00 Multivit/Ca Carb/ B Cmplx/FA/Prenat (Radhika-John) 1 tab DAILY GTB ; Start at 09:00 Pramipexole (Mirapex) 0.5 mg DAILY GTB ; Start 05/07/17 at 09:00 Sodium Biphosphate/ Sodium Phosphate (Fleet Enema Pediatric) 118 ml Q72H PRN [place] CONSTIPATION; Start 05/06/17 at 17:00 Citric Acid/ Sodium Citrate (Bicitra) 30 ml BID PO ; Start 05/06/17 at 21:00 Heparin Sodium (Porcine) (Heparin (5000 Units/0.5 ml)) 5,000 unit BID SC Last administered on 05/10/17 08:40; Admin Dose 5,000 UNIT; Start 05/06/17 at 21:00 Nystatin (Nystatin Powder) 1 applic BID TOP Last administered on 05/10/17 10: 50; Admin Dose 1 APPLIC; Start 05/09/17 at 21:00 Mupirocin (Bactroban) 1 applic BID TOP Last administered on 05/10/17 08:55; Admin Dose 1 APPLIC; Start 05/09/17 at 12:30 Collagenase (Santyl) 1 applic DAILY TOP Last administered on 05/09/17 15:27; Admin Dose 1 APPLIC; Start 05/09/17 at 15:00 Collagenase 1 applic 1 applic PRN PRN TOP WOUND CARE; Start 05/09/17 at 14:00 Meropenem/Sodium Chloride 50 ml @ 100 mls/hr Q12 IVPB Last administered on 10:50; Admin Dose 100 MLS/HR; Start 05/09/17 at 15:00 Vancomycin HCl 250 ml @ 125 mls/hr Q48H IVPB ; Start 05/11/17 at 16:00 Sodium Chloride 1,000 ml @ 0 mls/hr Q0M IV ; Start 05/09/17 at 18:18 Norepinephrine 250 ml @ 1.875 mls/ hr TITRATE IV Last administered on 19:03; Admin Dose 56.25 MLS/HR; Start 05/09/17 at 18:45 Sodium Chloride (1/2 NS) 1,000 ml @ 100 mls/hr Q10H IV ; Start 05/10/17 at 07: 00 DOROTHY CORONADO NP May 10, 2017 12:34
[2017-05-10 14:29] LABS: ADD UMIC YES; UR AMORPHOUS CRYSTAL FEW /HPF (NONE SEEN); UR ASCORBIC ACID NEGATIVE (NEGATIVE); UR BILIRUBIN (Dip) NEGATIVE (NEGATIVE); UR BLOOD (Dip) 1+ mg/dL (NEGATIVE); UR CLARITY CLOUDY (CLEAR); UR COLOR AMBER (YELLOW); UR GLUCOSE (Dip) NEGATIVE (NEGATIVE); UR KETONES (Dip) NEGATIVE (NEGATIVE); UR LEUKOCYTE ESTERASE (Dip) 2+ Leu/ul (NEGATIVE); UR NITRITE (Dip) NEGATIVE (NEGATIVE); UR RBC 1 /HPF (0-5); UR SPECIFIC GRAVITY (Dip) 1.013 (1.003-1.030); UR SQUAMOUS EPITHELIAL CELL FEW /HPF (FEW); UR TOTAL PROTEIN (Dip) 1+ mg/dl (NEGATIVE); UR UROBILINOGEN (Dip) NEGATIVE (NEGATIVE)
[2017-05-10] MEDS: BISACODYL 10 MG SUPP PR SCH (17:00)
[2017-05-10] MEDS: MAGNESIUM HYDROXIDE 30ML CUP GTB SCH (17:00)
[2017-05-10] MEDS ORDERED: FENTAnyl 50 MCG/ML VIAL ONE (17:41)
[2017-05-10] MEDS ORDERED: FUROSEMIDE 40 MG INJ IV ONE ×2 (18:00)
[2017-05-10] MEDS ORDERED: DOPamine-D5W 1.6 MG/ML 250 ML ONE (18:08)
[2017-05-10] MEDS: DOPamine-D5W 1.6 MG/ML 250 ML IV SCH (18:16)
--- NOTE | 2017-05-10 18:16 | PN ---
Date/Time of Note Date/Time of Note DATE: 05/10/17 TIME: 18:15 Assessment/Plan VTE Prophylaxis VTE Prophylaxis Intervention: other Lines/Catheters IV Catheter Type (from Nrs): Peripheral IV Urinary Cath still in place: Yes Reason Cath still needed: other (indicate) Assessment/Plan Chief Complaint/Hosp Course 1. hypoxemic resp failure: s/p trach 2. Pafib; currently in NSR 3. HTN: controlled 4. encephalopathy 5. renal failure: f/u with nephrology 6. dysphagia 7. G tube malfunction/ infection will change levophed to dopamine drip. cont resp care follow up with GI rec. awaiting PEG ICU care as long as pt is on pressors correct lytes prn f/u renal fx. Problems: Subjective 24 Hr Interval Summary Free Text/Dictation Discussed with staff and rhythm was reviewed pt remains in NSR. NO AFIB seen NONVERBAL. events noted. pt with severe hypotension and transferred to ICU on levophed drip. OBJECTIVE: General: no acute distress HEENT: NC/AT. NECK: NO JVD. no stridor. S/P trach on O2 CV: RRR. systolic murmur; no gallop or rubs. PULM: no wheezing anteriorly GI: SOFT, NT, ND, no rebound or guarding s/p dressing on the site of previous G tube Extremity: + B/L LE edema. no clubbing. neuro: opens her eyes to painful stimuli. does not follow commands Psych: calm rectal: deferred Exam/Review of Systems Vital Signs Vitals Vital Signs Date Time Temp Pulse Resp B/P Pulse Ox O2 Delivery O2 Flow Rate FiO2 05/10/17 17:39 82 17 100/44 99 Mechanical Ventilator 05/10/17 17:00 30 05/10/17 16:00 99.0 05/09/17 15:00 5.0 Intake and Output 05/09/17 05/09/17 05/10/17 15:00 23:00 07:00 Intake Total 1237.500 ml 1965.625 ml Balance 1237.500 ml 1965.625 ml Results Result Diagram: 05/10/17 0445 05/10/17 0445 Results 24 hrs Laboratory Tests Test 05/09/17 20:45 05/09/17 23:00 05/10/17 04:45 05/10/17 11:05 Lactic Acid Level 3.8 *H 2.6 *H Blood Gas Specimen Source Blood arterial Arterial Blood Date Drawn 05/09/2017 11:10:04 PM Arterial Blood pH (Temp corrected) 7.358 Arterial Blood pCO2 (Temp correct) 35.4 Arterial Blood pO2 (Temp corrected) 68.6 L Arterial Blood HCO3 19.5 L Arterial Blood Base Excess -5.4 L Arterial Blood Oxygen Saturation 92.4 L Faustino Test ACCEPTAB Arterial Blood Gas Puncture Site Right Radial Arterial Blood Carboxyhemoglobin 0.6 Arterial Blood Methemoglobin 0.4 Blood Gas A-a O2 Differential 103.7 H Oxyhemoglobin Percent 91.5 L Total Hemoglobin 10.2 L Blood Gas Temperature 37.0 Blood Gas Respiration Rate 12.0 Blood Gas Actual Respiration Rate 12 Blood Gas Modality VENT - AC FiO2 30.0 Blood Gas Tidal Volume 500.0 Blood Gas Low PEEP Setting 0 Blood Gas Notified Whom MA Blood Gas Notified Time 05/09/2017 11:20:44 PM White Blood Count 5.9 # Red Blood Count 2.90 L Hemoglobin 8.2 L Hematocrit 28.6 L Mean Corpuscular Volume 98.6 Mean Corpuscular Hemoglobin 28.3 L Mean Corpuscular Hemoglobin Concent 28.7 L Red Cell Distribution Width 19.6 H Platelet Count 118 #L Mean Platelet Volume 10.3 Neutrophils % 96.5 H Lymphocytes % 2.0 L Monocytes % 0.7 Eosinophils % 0.5 Basophils % 0.0 Neutrophils # 5.7 Lymphocytes # 0.1 L Monocytes # 0.0 L Eosinophils # 0.0 Basophils # 0.0 Nucleated Red Blood Cells # 0.0 Sodium Level 146 H Potassium Level 3.4 L Chloride Level 112 H Carbon Dioxide Level 20 L Anion Gap 17 H Blood Urea Nitrogen 65 H Creatinine 2.64 H Glucose Level 100 Calcium Level 7.7 L Phosphorus Level 6.1 #H Magnesium Level 1.4 L Random Cortisol 20.3 Urine Color ISATU Urine Clarity CLOUDY A Urine pH 5.0 Urine Specific [place] 1.013 Urine Ketones NEGATIVE Urine Nitrite NEGATIVE Urine Bilirubin NEGATIVE Urine Urobilinogen NEGATIVE Urine Leukocyte Esterase 2+ H Urine Microscopic RBC 1 Urine Microscopic WBC 9 H Urine Squamous Epithelial Cells FEW Urine Amorphous Crystals FEW A Urine Hemoglobin 1+ H Urine Glucose NEGATIVE Urine Total Protein 1+ H Medications Medications Current Medications Atorvastatin Calcium (Lipitor) 10 mg QHS GTB ; Start 05/06/17 at 21:00 Bisacodyl (Dulcolax Supp) 10 mg Q48H [place] Last administered on 05/08/17 17:59; Admin Dose 10 MG; Start 05/06/17 at 17:00 Carbidopa/Levodopa (Sinemet (25/ 100)) 1 tab TID GTB ; Start 05/06/17 at 21:00 Clopidogrel Bisulfate (plaVIX) 75 mg DAILY GTB ; Start 05/07/17 at 09:00 Donepezil HCl (Aricept) 10 mg QHS GTB ; Start 05/06/17 at 21:00 Ferrous Sulfate (Ferrous Sulfate (Ec)) 325 mg BID PO ; Start 05/06/17 at 21:00 Folic Acid (Folic Acid) 1 mg DAILY GTB ; Start 05/07/17 at 09:00 Furosemide (Lasix) 40 mg DAILY GTB ; Start 05/07/17 at 09:00 Lactobacillus Acidophilus/ Rhamnosus (Culturelle) 1 cap QHS GTB ; Start at 21:00 Magnesium Hydroxide (Milk Of Mag) 30 ml Q24H GTB ; Start 05/06/17 at 17:00 Memantine (Namenda) 5 mg QAM GTB ; Start 05/07/17 at 09:00 Metoprolol Tartrate (Lopressor) 25 mg Q12H GTB ; Start 05/06/17 at 17:00 Multivit/Ca Carb/ B Cmplx/FA/Prenat (Radhika-John) 1 tab DAILY GTB ; Start at 09:00 Pramipexole (Mirapex) 0.5 mg DAILY GTB ; Start 05/07/17 at 09:00 Sodium Biphosphate/ Sodium Phosphate (Fleet Enema Pediatric) 118 ml Q72H PRN [place] CONSTIPATION; Start 05/06/17 at 17:00 Citric Acid/ Sodium Citrate (Bicitra) 30 ml BID PO ; Start 05/06/17 at 21:00 Heparin Sodium (Porcine) (Heparin (5000 Units/0.5 ml)) 5,000 unit BID SC Last administered on 05/10/17 08:40; Admin Dose 5,000 UNIT; Start 05/06/17 at 21:00 Nystatin (Nystatin Powder) 1 applic BID TOP Last administered on 05/10/17 10: 50; Admin Dose 1 APPLIC; Start 05/09/17 at 21:00 Mupirocin (Bactroban) 1 applic BID TOP Last administered on 05/10/17 08:55; Admin Dose 1 APPLIC; Start 05/09/17 at 12:30 Collagenase (Santyl) 1 applic DAILY TOP Last administered on 05/09/17 15:27; Admin Dose 1 APPLIC; Start 05/09/17 at 15:00 Collagenase 1 applic 1 applic PRN PRN TOP WOUND CARE; Start 05/09/17 at 14:00 Meropenem/Sodium Chloride 50 ml @ 100 mls/hr Q12 IVPB Last administered on 10:50; Admin Dose 100 MLS/HR; Start 05/09/17 at 15:00 Vancomycin HCl 250 ml @ 125 mls/hr Q48H IVPB ; Start 05/11/17 at 16:00 Sodium Chloride 1,000 ml @ 0 mls/hr Q0M IV ; Start 05/09/17 at 18:18 Sodium Chloride 1,000 ml @ 100 mls/hr Q10H IV Last administered on 05/10/17 17:28; Admin Dose 100 MLS/HR; Start 05/10/17 at 07:00 Norepinephrine 16 mg/Dextrose 500 ml @ 1.87 mls/hr TITRATE IV ; Start 05/10/17 at 14:00 Dopamine HCl/ Dextrose 250 ml @ 6.848 mls/ hr TITRATE IV ; Start 05/10/17 at 18 :30 MILAGROS MUNOZ MD May 10, 2017 18:16
[2017-05-10] MEDS: COLLAGENASE 30 GM TUBE TOP SCH (18:19)
[2017-05-10] MEDS: ATORVASTATIN 10 MG TAB GTB SCH (20:11)
[2017-05-10] MEDS: LACTOBACILLUS RHAMNOSUS CAP GTB SCH (20:11)
[2017-05-10] MEDS: DONEPEZIL 10 MG TAB GTB SCH (20:11)
[2017-05-11] VITALS (96 sets, daily range): BP systolic 70–131; BP diastolic 35–80; PULSE 72–105; RESP 11–26
[2017-05-11] MEDS: SOD CHLORIDE 0.45% 1,000 ML IV SCH ×4 (04:01→21:14)
[2017-05-11] MEDS: DOPamine-D5W 1.6 MG/ML 250 ML IV SCH ×2 (04:05→18:17)
[2017-05-11] MEDS: METOPROLOL 25 MG TAB GTB SCH ×2 (04:43→16:34)
[2017-05-11 05:09] LABS: HEMATOCRIT 27.3 % (37.0-47.0); HEMOGLOBIN 8.1 g/dl (12.0-16.0); MEAN CORPUSCULAR HEMOGLOBIN 28.9 pg (29.0-33.0); MEAN CORPUSCULAR HGB CONC 29.7 g/dl (32.0-37.0); MEAN CORPUSCULAR VOLUME 97.5 fl (82.0-101.0); MEAN PLATELET VOLUME 10.7 fl (7.4-10.4); PLATELET COUNT 112 10^3/UL (140-415); RED CELL DISTRIBUTION WIDTH 19.8 % (11.5-14.5); WHITE BLOOD COUNT 10.8 10^3/ul (4.8-10.8)
[2017-05-11 05:36] LABS: POSITIVE DIFF @See below
[2017-05-11 05:41] LABS: CALCIUM 8.5 mg/dl (8.4-10.2); CREATININE 2.08 mg/dl (0.44-1.00); PHOSPHORUS 5.5 mg/dl (2.5-4.9)
[2017-05-11] MEDS ORDERED: GLUCOSE GEL 15 GRAM TUBE BUCCAL PRN (08:00)
[2017-05-11] MEDS ORDERED: GLUCOSE GEL 15 GRAM TUBE PO PRN ×2 (08:00)
--- NOTE | 2017-05-11 08:23 | PN ---
Date/Time of Note Date/Time of Note DATE: 05/11/17 TIME: 08:21 Assessment/Plan VTE Prophylaxis VTE Prophylaxis Intervention: other Lines/Catheters IV Catheter Type (from Nrs): Peripheral IV Urinary Cath still in place: Yes Reason Cath still needed: other (indicate) Assessment/Plan Chief Complaint/Hosp Course 1. Septic shock Etiology likely multifactorial, pneumonia, cellulitis, wounds, questionable GI source Patient on pressor support, IV fluids, broad-spectrum antibiotics Continue current treatment plan, check a CT scan abdomen pelvis to rule out GI source Follow-up with infectious disease, monitor serial lactic acid levels dysphagia- g tube dislodged, Continue to monitor Follow-up with GI Acute hypoxemic respiratory failure status post trach Patient placed back on vent Follow-up ABG chest x-ray Follow-up appointment 3. Nonoliguric acute kidney injury on top of chronic kidney disease stage 4. Etiology hemodynamics, possible progression of disease Urinary output improved with diuretic challenge Continue to monitor closely No immediate need for renal replacement therapy at this time 4. Hypernatremia Continue hypotonic fluid 5. r/o scabies -treat with permethrin -id consult 6. chf -cont med/royce -f/u cardiology 8. Acute encephalopathy and advanced dementia. Etiology is toxic metabolic. Continue to monitor. 9. Mineral bone disorder. Continue to monitor calcium and phosphorus levels. 10. Anemia. Will continue to monitor H and H levels. Continue Epogen. 11. Coronary artery disease. Continue medical management. 12. Diabetes. Continue Accu-Cheks and insulin sliding scale. 13. Decubitus wound. Continue wound care. Gastrointestinal and deep venous thrombosis prophylaxis. Continue proton pump inhibitor and heparin. Hypomagnesemia Replete magnesium sulfate Problems: Subjective 24 Hr Interval Summary Free Text/Dictation Patient is critically ill, On pressor support being weaned off Pending possible PEG placement Urinary output has been improving with diuretic therapy Exam/Review of Systems Vital Signs Vitals Vital Signs Date Time Temp Pulse Resp B/P Pulse Ox O2 Delivery O2 Flow Rate FiO2 05/11/17 05:30 93 17 100/45 100 05/11/17 05:00 Mechanical Ventilator 05/11/17 04:32 30 05/11/17 04:00 98.5 05/09/17 15:00 5.0 Intake and Output 05/10/17 05/10/17 05/11/17 15:00 23:00 07:00 Intake Total 382.500 ml 1169.171 ml 1016 ml Output Total 45 ml 205 ml 395 ml Balance 337.500 ml 964.171 ml 621 ml Exam HEENT: Head is normocephalic, NECK: Supple. HEART: Irregular LUNGS: Show diminished breath sounds at base. ABDOMEN: Soft, nontender to palpation without rebound or guarding. EXTREMITIES: Negative for clubbing, cyanosis. DERMATOLOGIC: No rashes. MUSCULOSKELETAL: No joint effusions, NEUROLOGIC: No change in exam. Results Result Diagram: 05/11/170 05/11/17 044 Results 24 hrs Laboratory Tests Test 05/10/17 11:05 05/11/17 04:40 Urine Color ISATU Urine Clarity CLOUDY A Urine pH 5.0 Urine Specific [place] 1.013 Urine Ketones NEGATIVE Urine Nitrite NEGATIVE Urine Bilirubin NEGATIVE Urine Urobilinogen NEGATIVE Urine Leukocyte Esterase 2+ H Urine Microscopic RBC 1 Urine Microscopic WBC 9 H Urine Squamous Epithelial Cells FEW Urine Amorphous Crystals FEW A Urine Hemoglobin 1+ H Urine Glucose NEGATIVE Urine Total Protein 1+ H White Blood Count 10.8 # Red Blood Count 2.80 L Hemoglobin 8.1 L Hematocrit 27.3 L Mean Corpuscular Volume 97.5 Mean Corpuscular Hemoglobin 28.9 L Mean Corpuscular Hemoglobin Concent 29.7 L Red Cell Distribution Width 19.8 H Platelet Count 112 L Mean Platelet Volume 10.7 H Neutrophils % Lymphocytes % Monocytes % Eosinophils % Basophils % Nucleated Red Blood Cells % 0.0 Neutrophils # Lymphocytes # Monocytes # Eosinophils # Basophils # Nucleated Red Blood Cells # Sodium Level 140 Potassium Level 4.0 Chloride Level 103 Carbon Dioxide Level 20 L Anion Gap 21 H Blood Urea Nitrogen 64 H Creatinine 2.08 H Glucose Level 261 #H Calcium Level 8.5 Phosphorus Level 5.5 H Magnesium Level 2.0 Medications Medications Current Medications Atorvastatin Calcium (Lipitor) 10 mg QHS GTB ; Start 05/06/17 at 21:00 Bisacodyl (Dulcolax Supp) 10 mg Q48H MD Last administered on 05/08/17t 17:59; Admin Dose 10 MG; Start 05/06/17 at 17:00 Carbidopa/Levodopa (Sinemet (25/ 100)) 1 tab TID GTB ; Start 05/06/17 at 21:00 Clopidogrel Bisulfate (plaVIX) 75 mg DAILY GTB ; Start 05/07/17 at 09:00 Donepezil HCl (Aricept) 10 mg QHS GTB ; Start 05/06/17 at 21:00 Ferrous Sulfate (Ferrous Sulfate (Ec)) 325 mg BID PO ; Start 05/06/17 at 21:00 Folic Acid (Folic Acid) 1 mg DAILY GTB ; Start 05/07/17 at 09:00 Furosemide (Lasix) 40 mg DAILY GTB ; Start 05/07/17 at 09:00 Lactobacillus Acidophilus/ Rhamnosus (Culturelle) 1 cap QHS GTB ; Start at 21:00 Magnesium Hydroxide (Milk Of Mag) 30 ml Q24H GTB ; Start 05/06/17 at 17:00 Memantine (Namenda) 5 mg QAM GTB ; Start 05/07/17 at 09:00 Metoprolol Tartrate (Lopressor) 25 mg Q12H GTB ; Start 05/06/17 at 17:00 Multivit/Ca Carb/ B Cmplx/FA/Prenat (Radhika-John) 1 tab DAILY GTB ; Start at 09:00 Pramipexole (Mirapex) 0.5 mg DAILY GTB ; Start 05/07/17 at 09:00 Sodium Biphosphate/ Sodium Phosphate (Fleet Enema Pediatric) 118 ml Q72H PRN [place] CONSTIPATION; Start 05/06/17 at 17:00 Citric Acid/ Sodium Citrate (Bicitra) 30 ml BID PO ; Start 05/06/17 at 21:00 Heparin Sodium (Porcine) (Heparin (5000 Units/0.5 ml)) 5,000 unit BID SC Last administered on 05/10/17 21:03; Admin Dose 5,000 UNIT; Start 05/06/17 at 21:00 Nystatin (Nystatin Powder) 1 applic BID TOP Last administered on 05/10/17 20: 54; Admin Dose 1 APPLIC; Start 05/09/17 at 21:00 Mupirocin (Bactroban) 1 applic BID TOP Last administered on 05/10/17 20:54; Admin Dose 1 APPLIC; Start 05/09/17 at 12:30 Collagenase (Santyl) 1 applic DAILY TOP Last administered on 05/10/17 18:19; Admin Dose 1 APPLIC; Start 05/09/17 at 15:00 Collagenase 1 applic 1 applic PRN PRN TOP WOUND CARE; Start 05/09/17 at 14:00 Meropenem/Sodium Chloride 50 ml @ 100 mls/hr Q12 IVPB Last administered on 20:54; Admin Dose 100 MLS/HR; Start 05/09/17 at 15:00 Vancomycin HCl 250 ml @ 125 mls/hr Q48H IVPB ; Start 05/11/17 at 16:00 Sodium Chloride 1,000 ml @ 0 mls/hr Q0M IV ; Start 05/09/17 at 18:18 Sodium Chloride 1,000 ml @ 100 mls/hr Q10H IV Last administered on 05/11/17 04:01; Admin Dose 100 MLS/HR; Start 05/10/17 at 07:00 Norepinephrine 16 mg/Dextrose 500 ml @ 1.87 mls/hr TITRATE IV ; Start 05/10/17 at 14:00 Dopamine HCl/ Dextrose 250 ml @ 6.848 mls/ hr TITRATE IV Last administered on 05/11/17 04:05; Admin Dose 27.39 MLS/HR; Start 05/10/17 at 18:30 Diagnostic Test (Pha) (Accu-Chek) 1 ea 02 XX ; Start 05/12/17 at 02:00 Insulin Aspart (Novolog Insulin Pen) NOVOLOG *MILD* ALGORI... Q4 SC ; Start at 09:00 Miscellaneous Information 1 ea NOTE XX ; Start 05/11/17 at 08:00 Glucose (Glutose) 15 gm Q15M PRN PO DECREASED GLUCOSE; Start 05/11/17 at 08:00 Glucose (Glutose) 22.5 gm Q15M PRN PO DECREASED GLUCOSE; Start 05/11/17 at 08: 00 Dextrose (D50w Syringe) 25 ml Q15M PRN IV DECREASED GLUCOSE; Start 05/11/17 at 08:00 Dextrose (D50w Syringe) 50 ml Q15M PRN IV DECREASED GLUCOSE; Start 05/11/17 at 08:00 Glucagon (Glucagen) 1 mg Q15M PRN IM DECREASED GLUCOSE; Start 05/11/17 at 08:00 Glucose (Glutose) 15 gm Q15M PRN BUCCAL DECREASED GLUCOSE; Start 05/11/17 at 08 :00 OSMAR MONTAGUE DO May 11, 2017 08:23
[2017-05-11] MEDS ORDERED: FUROSEMIDE 100 MG INJ IV SCH (08:30)
[2017-05-11 08:32] LABS: ANISOCYTOSIS 1+ (0-0); BASOPHIL # 0.1 10^3/ul (0.0-0.1); EOSINOPHILS # 0.4 10^3/ul (0.0-0.5); LYMPHOCYTES # 0.1 10^3/ul (0.8-2.9); MONOCYTE # 0.1 10^3/ul (0.3-0.9); NEUTROPHIL # 6.8 10^3/ul (1.6-7.5)
[2017-05-11] MEDS: FERROUS SULFATE (EC) 325 MG TAB PO SCH ×2 (09:00→20:12)
[2017-05-11] MEDS: MULTIVIT/CA CARB/B CMPLX/FA TAB GTB SCH (09:00)
[2017-05-11] MEDS: INSULIN ASPART [NOVOLOG] 3 ML PEN SC SCH ×4 (09:00→21:00)
[2017-05-11] MEDS: COLLAGENASE 30 GM TUBE TOP SCH (09:00)
[2017-05-11] MEDS: CARBIDOPA/LEVODOPA (25/100) TAB GTB SCH ×3 (09:00→20:12)
[2017-05-11] MEDS: FOLIC ACID 1 MG TAB GTB SCH (09:00)
[2017-05-11] MEDS: MEMANTINE 5 MG TAB GTB SCH (09:00)
[2017-05-11] MEDS: CITRIC ACID/NA CITRATE 30 ML CUP PO SCH ×2 (09:00→20:12)
[2017-05-11] MEDS: CLOPIDOGREL 75 MG TAB GTB SCH (09:00)
[2017-05-11] MEDS: PRAMIPEXOLE 0.25 MG TAB GTB SCH (09:00)
[2017-05-11] MEDS ORDERED: EPOETIN 10000 UNITS/1 ML INJ (ESRD) SC ONE (09:00)
[2017-05-11] MEDS: MEROPENEM 1 GM/50ML(PMX) 50 ML IVPB SCH ×2 (09:02→21:13)
[2017-05-11] MEDS: MUPIROCIN 2% 22 GM OINT TOP SCH ×2 (09:07→21:00)
[2017-05-11] MEDS: NYSTATIN 30 GM POWDER BTL TOP SCH ×2 (09:07→21:13)
[2017-05-11] MEDS: HEPARIN 5,000 UNIT/0.5 ML VIAL SC SCH ×2 (09:09→21:26)
--- NOTE | 2017-05-11 09:21 | CONS ---
Date/Time of Note Date/Time of Note DATE: 05/11/17 TIME: 09:19 Assessment/Plan Assessment/Plan Additional Assessment/Plan Ventilator setting; AC of 12, tidal volume 500, PEEP of 0, 30% FiO2. Patient currently on dopamine at 6 mics per kilogram per minute. Assessment recommendations; 1. Patient admitted for G-tube dislodgment with abdominal wall cellulitis. 2. Renal insufficiency. 3. Hyponatremia. 4. Advanced dementia. 5. Chronic respiratory failure. 6. Anemia. Continue current supportive care. Prognosis is poor. Consultation Date/Type/Reason Admit Date/Time May 06, 2017 at 16:34 Initial Consult Date 05/10/17 Type of Consultation: Pulmonary/critical care Reason for Consultation Patient condition remains critical. Remains essentially unresponsive. Still requiring dopamine drip for blood pressure maintenance. General exam; elderly woman, on ventilator via tracheostomy, unresponsive, currently in no distress. Exam/Review of Systems Vital Signs Vitals Vital Signs Date Time Temp Pulse Resp B/P Pulse Ox O2 Delivery O2 Flow Rate FiO2 05/11/17 08:30 94 17 103/45 100 05/11/17 08:15 98.2 Mechanical Ventilator 05/11/17 04:32 30 05/09/17 15:00 5.0 Intake and Output 05/10/17 05/10/17 05/11/17 15:00 23:00 07:00 Intake Total 382.500 ml 1169.171 ml 1016 ml Output Total 45 ml 205 ml 395 ml Balance 337.500 ml 964.171 ml 621 ml Exam HEENT exam supple neck, no JVD. No lymphadenopathy. Midline trachea. No thyromegaly. Patient has fair dentition. Tracheostomy in place. No neck masses. Bilateral intraocular lens implants are present. Chest exam; diminished but clear breath sound. S1-S2 audible, no murmurs. Abdomen exam; soft, there is dressing applied over the epigastric area. Bowel sounds are very sluggish. No organomegaly felt. There is slight improvement in extensive abdominal wall cellulitis. Extremity exam; trace edema. 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 Results Result Diagram: 05/11/17 0440 05/11/17 0440 Results 24 hrs Laboratory Tests Test 05/10/17 11:05 05/11/17 04:40 05/11/17 08:53 Urine Color ISATU Urine Clarity CLOUDY A Urine pH 5.0 Urine Specific [place] 1.013 Urine Ketones NEGATIVE Urine Nitrite NEGATIVE Urine Bilirubin NEGATIVE Urine Urobilinogen NEGATIVE Urine Leukocyte Esterase 2+ H Urine Microscopic RBC 1 Urine Microscopic WBC 9 H Urine Squamous Epithelial Cells FEW Urine Amorphous Crystals FEW A Urine Hemoglobin 1+ H Urine Glucose NEGATIVE Urine Total Protein 1+ H White Blood Count 10.8 # Red Blood Count 2.80 L Hemoglobin 8.1 L Hematocrit 27.3 L Mean Corpuscular Volume 97.5 Mean Corpuscular Hemoglobin 28.9 L Mean Corpuscular Hemoglobin Concent 29.7 L Red Cell Distribution Width 19.8 H Platelet Count 112 L Mean Platelet Volume 10.7 H Neutrophils % 63.0 Lymphocytes % 1.0 L Monocytes % 1.0 Eosinophils % 4.0 Basophils % 1.0 Nucleated Red Blood Cells % 0.0 Neutrophils # 6.8 Band Neutrophils # 6.8 H Lymphocytes # 0.1 L Monocytes # 0.1 L Eosinophils # 0.4 Basophils # 0.1 Nucleated Red Blood Cells # Anisocytosis 1+ Sodium Level 140 Potassium Level 4.0 Chloride Level 103 Carbon Dioxide Level 20 L Anion Gap 21 H Blood Urea Nitrogen 64 H Creatinine 2.08 H Glucose Level 261 #H Calcium Level 8.5 Phosphorus Level 5.5 H Magnesium Level 2.0 Bedside Glucose 96 Medications Medications Current Medications Atorvastatin Calcium (Lipitor) 10 mg QHS GTB ; Start 05/06/17 at 21:00 Bisacodyl (Dulcolax Supp) 10 mg Q48H [place] Last administered on 05/08/17t 17:59; Admin Dose 10 MG; Start 05/06/17 at 17:00 Carbidopa/Levodopa (Sinemet (25/ 100)) 1 tab TID GTB ; Start 05/06/17 at 21:00 Clopidogrel Bisulfate (plaVIX) 75 mg DAILY GTB ; Start 05/07/17 at 09:00 Donepezil HCl (Aricept) 10 mg QHS GTB ; Start 05/06/17 at 21:00 Ferrous Sulfate (Ferrous Sulfate (Ec)) 325 mg BID PO ; Start 05/06/17 at 21:00 Folic Acid (Folic Acid) 1 mg DAILY GTB ; Start 05/07/17 at 09:00 Lactobacillus Acidophilus/ Rhamnosus (Culturelle) 1 cap QHS GTB ; Start at 21:00 Magnesium Hydroxide (Milk Of Mag) 30 ml Q24H GTB ; Start 05/06/17 at 17:00 Memantine (Namenda) 5 mg QAM GTB ; Start 05/07/17 at 09:00 Metoprolol Tartrate (Lopressor) 25 mg Q12H GTB ; Start 05/06/17 at 17:00 Multivit/Ca Carb/ B Cmplx/FA/Prenat (Radhika-John) 1 tab DAILY GTB ; Start at 09:00 Pramipexole (Mirapex) 0.5 mg DAILY GTB ; Start 05/07/17 at 09:00 Sodium Biphosphate/ Sodium Phosphate (Fleet Enema Pediatric) 118 ml Q72H PRN [place] CONSTIPATION; Start 05/06/17 at 17:00 Citric Acid/ Sodium Citrate (Bicitra) 30 ml BID PO ; Start 05/06/17 at 21:00 Heparin Sodium (Porcine) (Heparin (5000 Units/0.5 ml)) 5,000 unit BID SC Last administered on 05/11/17 09:09; Admin Dose 5,000 UNIT; Start 05/06/17 at 21:00 Nystatin (Nystatin Powder) 1 applic BID TOP Last administered on 05/11/17 09: 07; Admin Dose 1 APPLIC; Start 05/09/17 at 21:00 Mupirocin (Bactroban) 1 applic BID TOP Last administered on 05/11/17 09:07; Admin Dose 1 APPLIC; Start 05/09/17 at 12:30 Collagenase (Santyl) 1 applic DAILY TOP Last administered on 05/10/17 18:19; Admin Dose 1 APPLIC; Start 05/09/17 at 15:00 Collagenase 1 applic 1 applic PRN PRN TOP WOUND CARE; Start 05/09/17 at 14:00 Meropenem/Sodium Chloride 50 ml @ 100 mls/hr Q12 IVPB Last administered on 09:02; Admin Dose 100 MLS/HR; Start 05/09/17 at 15:00 Vancomycin HCl 250 ml @ 125 mls/hr Q48H IVPB ; Start 05/11/17 at 16:00 Sodium Chloride 1,000 ml @ 0 mls/hr Q0M IV ; Start 05/09/17 at 18:18 Sodium Chloride 1,000 ml @ 100 mls/hr Q10H IV Last administered on 05/11/17 04:01; Admin Dose 100 MLS/HR; Start 05/10/17 at 07:00 Norepinephrine 16 mg/Dextrose 500 ml @ 1.87 mls/hr TITRATE IV ; Start 05/10/17 at 14:00 Dopamine HCl/ Dextrose 250 ml @ 6.848 mls/ hr TITRATE IV Last administered on 05/11/17 04:05; Admin Dose 27.39 MLS/HR; Start 05/10/17 at 18:30 Diagnostic Test (Pha) (Accu-Chek) 1 ea 02 XX ; Start 05/12/17 at 02:00 Insulin Aspart (Novolog Insulin Pen) NOVOLOG *MILD* ALGORI... Q4 SC ; Start at 09:00 Miscellaneous Information 1 ea NOTE XX ; Start 05/11/17 at 08:00 Glucose (Glutose) 15 gm Q15M PRN PO DECREASED GLUCOSE; Start 05/11/17 at 08:00 Glucose (Glutose) 22.5 gm Q15M PRN PO DECREASED GLUCOSE; Start 05/11/17 at 08: 00 Dextrose (D50w Syringe) 25 ml Q15M PRN IV DECREASED GLUCOSE; Start 05/11/17 at 08:00 Dextrose (D50w Syringe) 50 ml Q15M PRN IV DECREASED GLUCOSE; Start 05/11/17 at 08:00 Glucagon (Glucagen) 1 mg Q15M PRN IM DECREASED GLUCOSE; Start 05/11/17 at 08:00 Glucose (Glutose) 15 gm Q15M PRN BUCCAL DECREASED GLUCOSE; Start 05/11/17 at 08 :00 SMITH RUIZ May 11, 2017 09:21
--- NOTE | 2017-05-11 11:37 | CONS ---
Date/Time of Note Date/Time of Note DATE: 05/11/17 TIME: 11:36 Assessment/Plan Assessment/Plan Chief Complaint/Hosp Course No acute changes overnight. Patient was started on dopamine drip looks comfortable and in no distress Temperature 98.2 pulse 87 respirations 17 blood pressure 114/69 saturation 100% on vent WBC 10.8 H&H 8.1 and 27.3 platelets 112 neutrophils 63 no balance BN 64 creatinine 2.08 lactic acid 1.6 Microbiology blood cultures remain negative urine culture pending. Urinalysis revealed cloudy urszula urine was positive for leukocyte Estrace presence of WBCs Indwelling's: Trach, Collazo, PICC line Antibiotics: Vancomycin meropenem Physical examination: Chronically ill-appearing elderly woman in no distress head atraumatic normocephalic sclera nonicteric bugle mucosa dry neck is supple tracheostomy present chest rise symmetrical breath sounds diminished heart S1- S2 abdomen soft bowel sounds present extremities with trace edema skin positive for anasarca and macular papular rash in various stages of healing Assessment: 1. Septic shock 2. Possible healthcare associated pneumonia 3. G-tube malfunction 4. Rash, no scabies per skin scraping 5. Chronic respiratory failure 6. Multiple chronic decubitus 7. 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 UTI as per urinalysis Plan: Remains hemodynamically unstable, pending urine culture, continue antibiotics, vent support per pulmonary, local wound care, follow GI recommendations, pending PEG Discussed with RN Problems: Consultation Date/Type/Reason Admit Date/Time May 06, 2017 at 16:34 Initial Consult Date 05/09/17 Type of Consultation: ID Exam/Review of Systems Vital Signs Vitals Vital Signs Date Time Temp Pulse Resp B/P Pulse Ox O2 Delivery O2 Flow Rate FiO2 05/11/17 11:00 87 17 114/69 100 05/11/17 09:00 30 05/11/17 08:15 98.2 Mechanical Ventilator 05/09/17 15:00 5.0 Intake and Output 05/10/17 05/10/17 05/11/17 15:00 23:00 07:00 Intake Total 382.500 ml 1169.171 ml 1016 ml Output Total 45 ml 205 ml 470 ml Balance 337.500 ml 964.171 ml 546 ml Results Result Diagram: 05/11/17 0440 05/11/17 0440 Results 24 hrs Laboratory Tests Test 05/11/17 04:40 05/11/17 08:53 05/11/17 09:00 White Blood Count 10.8 # Red Blood Count 2.80 L Hemoglobin 8.1 L Hematocrit 27.3 L Mean Corpuscular Volume 97.5 Mean Corpuscular Hemoglobin 28.9 L Mean Corpuscular Hemoglobin Concent 29.7 L Red Cell Distribution Width 19.8 H Platelet Count 112 L Mean Platelet Volume 10.7 H Neutrophils % 63.0 Lymphocytes % 1.0 L Monocytes % 1.0 Eosinophils % 4.0 Basophils % 1.0 Nucleated Red Blood Cells % 0.0 Neutrophils # 6.8 Band Neutrophils # 6.8 H Lymphocytes # 0.1 L Monocytes # 0.1 L Eosinophils # 0.4 Basophils # 0.1 Nucleated Red Blood Cells # Anisocytosis 1+ Sodium Level 140 Potassium Level 4.0 Chloride Level 103 Carbon Dioxide Level 20 L Anion Gap 21 H Blood Urea Nitrogen 64 H Creatinine 2.08 H Glucose Level 261 #H Calcium Level 8.5 Phosphorus Level 5.5 H Magnesium Level 2.0 Bedside Glucose 96 Lactic Acid Level 1.6 Medications Medications Current Medications Atorvastatin Calcium (Lipitor) 10 mg QHS GTB ; Start 05/06/17 at 21:00 Bisacodyl (Dulcolax Supp) 10 mg Q48H [place] Last administered on 05/08/17t 17:59; Admin Dose 10 MG; Start 05/06/17 at 17:00 Carbidopa/Levodopa (Sinemet (25/ 100)) 1 tab TID GTB ; Start 05/06/17 at 21:00 Clopidogrel Bisulfate (plaVIX) 75 mg DAILY GTB ; Start 05/07/17 at 09:00 Donepezil HCl (Aricept) 10 mg QHS GTB ; Start 05/06/17 at 21:00 Ferrous Sulfate (Ferrous Sulfate (Ec)) 325 mg BID PO ; Start 05/06/17 at 21:00 Folic Acid (Folic Acid) 1 mg DAILY GTB ; Start 05/07/17 at 09:00 Lactobacillus Acidophilus/ Rhamnosus (Culturelle) 1 cap QHS GTB ; Start at 21:00 Magnesium Hydroxide (Milk Of Mag) 30 ml Q24H GTB ; Start 05/06/17 at 17:00 Memantine (Namenda) 5 mg QAM GTB ; Start 05/07/17 at 09:00 Metoprolol Tartrate (Lopressor) 25 mg Q12H GTB ; Start 05/06/17 at 17:00 Multivit/Ca Carb/ B Cmplx/FA/Prenat (Radhika-John) 1 tab DAILY GTB ; Start at 09:00 Pramipexole (Mirapex) 0.5 mg DAILY GTB ; Start 05/07/17 at 09:00 Sodium Biphosphate/ Sodium Phosphate (Fleet Enema Pediatric) 118 ml Q72H PRN [place] CONSTIPATION; Start 05/06/17 at 17:00 Citric Acid/ Sodium Citrate (Bicitra) 30 ml BID PO ; Start 05/06/17 at 21:00 Heparin Sodium (Porcine) (Heparin (5000 Units/0.5 ml)) 5,000 unit BID SC Last administered on 05/11/17 09:09; Admin Dose 5,000 UNIT; Start 05/06/17 at 21:00 Nystatin (Nystatin Powder) 1 applic BID TOP Last administered on 05/11/17 09: 07; Admin Dose 1 APPLIC; Start 05/09/17 at 21:00 Mupirocin (Bactroban) 1 applic BID TOP Last administered on 05/11/17 09:07; Admin Dose 1 APPLIC; Start 05/09/17 at 12:30 Collagenase (Santyl) 1 applic DAILY TOP Last administered on 05/10/17 18:19; Admin Dose 1 APPLIC; Start 05/09/17 at 15:00 Collagenase 1 applic 1 applic PRN PRN TOP WOUND CARE; Start 05/09/17 at 14:00 Meropenem/Sodium Chloride 50 ml @ 100 mls/hr Q12 IVPB Last administered on 09:02; Admin Dose 100 MLS/HR; Start 05/09/17 at 15:00 Vancomycin HCl 250 ml @ 125 mls/hr Q48H IVPB ; Start 05/11/17 at 16:00 Sodium Chloride 1,000 ml @ 0 mls/hr Q0M IV ; Start 05/09/17 at 18:18 Sodium Chloride 1,000 ml @ 100 mls/hr Q10H IV Last administered on 05/11/17 04:01; Admin Dose 100 MLS/HR; Start 05/10/17 at 07:00 Norepinephrine 16 mg/Dextrose 500 ml @ 1.87 mls/hr TITRATE IV ; Start 05/10/17 at 14:00 Dopamine HCl/ Dextrose 250 ml @ 6.848 mls/ hr TITRATE IV Last administered on 05/11/17t 04:05; Admin Dose 27.39 MLS/HR; Start 05/10/17 at 18:30 Diagnostic Test (Pha) (Accu-Chek) 1 ea 02 XX ; Start 05/12/17 at 02:00 Insulin Aspart (Novolog Insulin Pen) NOVOLOG *MILD* ALGORI... Q4 SC ; Start at 09:00 Miscellaneous Information 1 ea NOTE XX ; Start 05/11/17 at 08:00 Glucose (Glutose) 15 gm Q15M PRN PO DECREASED GLUCOSE; Start 05/11/17 at 08:00 Glucose (Glutose) 22.5 gm Q15M PRN PO DECREASED GLUCOSE; Start 05/11/17 at 08: 00 Dextrose (D50w Syringe) 25 ml Q15M PRN IV DECREASED GLUCOSE; Start 05/11/17 at 08:00 Dextrose (D50w Syringe) 50 ml Q15M PRN IV DECREASED GLUCOSE; Start 05/11/17 at 08:00 Glucagon (Glucagen) 1 mg Q15M PRN IM DECREASED GLUCOSE; Start 05/11/17 at 08:00 Glucose (Glutose) 15 gm Q15M PRN BUCCAL DECREASED GLUCOSE; Start 05/11/17 at 08 :00 DOROTHY CORONADO NP May 11, 2017 11:37
--- NOTE | 2017-05-11 11:40 | CONS ---
DATE OF ADMISSION: 05/06/2017 DATE OF CONSULTATION: REFERRING PHYSICIAN: Brendan Rosas DO REASON FOR CONSULTATION: Arrhythmia, history of atrial fibrillation. CHIEF COMPLAINT: Gastric tube malfunction. HISTORY OF PRESENT ILLNESS: Thank you for this referral. History was obtained along with review of the old chart, discussion with physician, Dr Rosas. Patient also noted to have been previously admitted to the hospital. This is an unfortunate, 86-year-old female with a complicated medical history including tracheostomy, atrial fibrillation, dysphagia, has had PEG placement, and severe encephalopathy, who has been admitted with G tube site malfunction. The patient is not able to give history to me. The patient atrial fibrillation and congestive heart failure . I was kindly asked to assist in management. PAST MEDICAL HISTORY: 1. Severe hypoxemic respiratory failure. 2. Status post tracheostomy. 3. Vent dependent. 4. History of dysphagia. 5. History of PEG placement with previous infection at the PEG site. 6. History of severe encephalopathy. 7. Severe coronary artery disease per old record. 8. History of atrial fibrillation. 9. History of anemia. 10. Chronic kidney disease. 11. Peripheral vascular disease. 12. Diabetes. 13. Hypertension. SURGICAL HISTORY: 1. PEG placement and replacement. 2. History of tracheostomy. FAMILY HISTORY: Noted for . SOCIAL HISTORY: The patient lives in a halfway . No acute tobacco, alcohol, or drug abuse. ALLERGIES: NO REPORTED DRUG ALLERGIES. MEDICATION: As per medical reconciliation. personally reviewed. REVIEW OF SYSTEMS: Unable to obtain, except as above mentioned. PHYSICAL EXAM: VITAL SIGNS: Temperature 97.9, heart rate of 60, blood pressure 105/52, respiratory rate of 26, sating 97 percent. HEENT: Normocephalic, atraumatic. Eyes are closed. NECK: Status post tracheostomy, on oxygen. CARDIOVASCULAR: Regular rate and rhythm. Systolic murmur. PULMONARY: Mild rhonchi diffuse. GASTROINTESTINAL: Status post PEG. There is erythema around it. EXTREMITIES: Diffuse edema. NEUROLOGIC: Does not respond to verbal stimulus. PSYCH: DERMATOLOGIC: Multiple ecchymosis. LABORATORY: Chest x-ray shows unchanged pulmonary edema per radiology report. WBC of 5.5, hemoglobin of 8.6, platelets of 182. Sodium 149, potassium 4.6. BUN of 81, creatinine of 2.43. Glucose of 84. ASSESSMENT AND PLAN: 1. Hypoxemic and hypercapnic with respiratory failure, status post tracheostomy. 2. atrial fibrillation. 3. Fluid overload/congestive heart failure. 4. Renal failure. 5. Gastric tube site malfunction and cellulitis. 6. Severe encephalopathy. 7. History of bacteremia and fungemia. 8. Diabetes. 9. Anemia. RECOMMENDATIONS: 1. GI: Antibiotic as per internal medicine. 2. Wound care as per general medicine will be done. 3. Will continue to monitor on telemetry. 4. Respiratory care will be continued. 5. Heart rate remains currently stable and patient remains in sinus rhythm. I will continue to follow along with you. Dictated By: Giuseppe Mills MD /junie/lloyd /Document#: [id number] CC: Brendan Rosas DO;*EndCC*
--- NOTE | 2017-05-11 13:40 | CONS ---
Date/Time of Note Date/Time of Note DATE: 05/11/17 TIME: 13:39 Assessment/Plan Assessment/Plan Chief Complaint/Hosp Course This 69-year-old female with a history of CVA vent dependent respiratory failure , was brought to the emergency room for the dislodgment of the GJ tube. Patient is nonverbal and no information can be obtained. No GI bleeding no chest pain no shortness of breath. Problems: Additional Assessment/Plan Additional Assessment/Plan 1. Dislodged of the GJ tube accidentally 2. Vent dependent respiratory failure 3. Chronic encephalopathy 4. Renal failure 5. Peripheral vascular disease 6. Anemia 7. Hypertension patient is still on dopamine Plan GJ tube tomorrow Hospital did not have GJ tube I will bring it from other facility. Consultation Date/Type/Reason Admit Date/Time May 06, 2017 at 16:34 Type of Consultation: ID [id number] HR Interval Summary Subjective hx not possible: pt non-verbal, pt critical Exam/Review of Systems Vital Signs Vitals Vital Signs Date Time Temp Pulse Resp B/P Pulse Ox O2 Delivery O2 Flow Rate FiO2 05/11/17 12:00 86 05/11/17 11:30 16 100 30 05/11/17 11:00 114/69 05/11/17 08:15 98.2 Mechanical Ventilator 05/09/17 15:00 5.0 Intake and Output 05/10/17 05/10/17 05/11/17 15:00 23:00 07:00 Intake Total 382.500 ml 1169.171 ml 1016 ml Output Total 45 ml 205 ml 470 ml Balance 337.500 ml 964.171 ml 546 ml Exam Constitutional: alert, oriented, well developed Psych: nl mood/affect, no complaints Head: atraumatic, normocephalic Eyes: EOMI, PERRL, nl conjunctiva, nl lids, nl sclera ENMT: nl external ears & nose, nl lips & teeth, nl nasal mucosa & septum Neck: non-tender, supple Respiratory: clear to auscultation, normal air movement Cardiovascular: nl pulses, regular rate and rhythm Gastrointestinal: nl liver, spleen, non-tender, soft Musculoskeletal: nl extremities to inspection, nl gait and stance Extremities: normal pulses Neurological: BAR TURNER II-XII intact, nl mental status, nl speech, nl strength Skin: nl turgor, No rash or lesions Lymph: nl lymph nodes Results Result Diagram: 05/11/17 0440 05/11/17 0440 Results 24 hrs Laboratory Tests Test 05/11/17 04:40 05/11/17 08:53 05/11/17 09:00 05/11/17 12:26 White Blood Count 10.8 # Red Blood Count 2.80 L Hemoglobin 8.1 L Hematocrit 27.3 L Mean Corpuscular Volume 97.5 Mean Corpuscular Hemoglobin 28.9 L Mean Corpuscular Hemoglobin Concent 29.7 L Red Cell Distribution Width 19.8 H Platelet Count 112 L Mean Platelet Volume 10.7 H Neutrophils % 63.0 Lymphocytes % 1.0 L Monocytes % 1.0 Eosinophils % 4.0 Basophils % 1.0 Nucleated Red Blood Cells % 0.0 Neutrophils # 6.8 Band Neutrophils # 6.8 H Lymphocytes # 0.1 L Monocytes # 0.1 L Eosinophils # 0.4 Basophils # 0.1 Nucleated Red Blood Cells # Anisocytosis 1+ Sodium Level 140 Potassium Level 4.0 Chloride Level 103 Carbon Dioxide Level 20 L Anion Gap 21 H Blood Urea Nitrogen 64 H Creatinine 2.08 H Glucose Level 261 #H Calcium Level 8.5 Phosphorus Level 5.5 H Magnesium Level 2.0 Bedside Glucose 96 88 Lactic Acid Level 1.6 Medications Medications Current Medications Atorvastatin Calcium (Lipitor) 10 mg QHS GTB ; Start 05/06/17 at 21:00 Bisacodyl (Dulcolax Supp) 10 mg Q48H MD Last administered on 05/08/17t 17:59; Admin Dose 10 MG; Start 05/06/17 at 17:00 Carbidopa/Levodopa (Sinemet (25/ 100)) 1 tab TID GTB ; Start 05/06/17 at 21:00 Clopidogrel Bisulfate (plaVIX) 75 mg DAILY GTB ; Start 05/07/17 at 09:00 Donepezil HCl (Aricept) 10 mg QHS GTB ; Start 05/06/17 at 21:00 Ferrous Sulfate (Ferrous Sulfate (Ec)) 325 mg BID PO ; Start 05/06/17 at 21:00 Folic Acid (Folic Acid) 1 mg DAILY GTB ; Start 05/07/17 at 09:00 Lactobacillus Acidophilus/ Rhamnosus (Culturelle) 1 cap QHS GTB ; Start at 21:00 Magnesium Hydroxide (Milk Of Mag) 30 ml Q24H GTB ; Start 05/06/17 at 17:00 Memantine (Namenda) 5 mg QAM GTB ; Start 05/07/17 at 09:00 Metoprolol Tartrate (Lopressor) 25 mg Q12H GTB ; Start 05/06/17 at 17:00 Multivit/Ca Carb/ B Cmplx/FA/Prenat (Radhika-John) 1 tab DAILY GTB ; Start at 09:00 Pramipexole (Mirapex) 0.5 mg DAILY GTB ; Start 05/07/17 at 09:00 Sodium Biphosphate/ Sodium Phosphate (Fleet Enema Pediatric) 118 ml Q72H PRN MD CONSTIPATION; Start 05/06/17 at 17:00 Citric Acid/ Sodium Citrate (Bicitra) 30 ml BID PO ; Start 05/06/17 at 21:00 Heparin Sodium (Porcine) (Heparin (5000 Units/0.5 ml)) 5,000 unit BID SC Last administered on 05/11/17 09:09; Admin Dose 5,000 UNIT; Start 05/06/17 at 21:00 Nystatin (Nystatin Powder) 1 applic BID TOP Last administered on 05/11/17 09: 07; Admin Dose 1 APPLIC; Start 05/09/17 at 21:00 Mupirocin (Bactroban) 1 applic BID TOP Last administered on 05/11/17 09:07; Admin Dose 1 APPLIC; Start 05/09/17 at 12:30 Collagenase (Santyl) 1 applic DAILY TOP Last administered on 05/10/17 18:19; Admin Dose 1 APPLIC; Start 05/09/17 at 15:00 Collagenase 1 applic 1 applic PRN PRN TOP WOUND CARE; Start 05/09/17 at 14:00 Meropenem/Sodium Chloride 50 ml @ 100 mls/hr Q12 IVPB Last administered on 09:02; Admin Dose 100 MLS/HR; Start 05/09/17 at 15:00 Vancomycin HCl 250 ml @ 125 mls/hr Q48H IVPB ; Start 05/11/17 at 16:00 Sodium Chloride 1,000 ml @ 0 mls/hr Q0M IV ; Start 05/09/17 at 18:18 Sodium Chloride 1,000 ml @ 100 mls/hr Q10H IV Last administered on 05/11/17 04:01; Admin Dose 100 MLS/HR; Start 05/10/17 at 07:00 Norepinephrine 16 mg/Dextrose 500 ml @ 1.87 mls/hr TITRATE IV ; Start 05/10/17 at 14:00 Dopamine HCl/ Dextrose 250 ml @ 6.848 mls/ hr TITRATE IV Last administered on 05/11/17 04:05; Admin Dose 27.39 MLS/HR; Start 05/10/17 at 18:30 Diagnostic Test (Pha) (Accu-Chek) 1 ea 02 XX ; Start 05/12/17 at 02:00 Insulin Aspart (Novolog Insulin Pen) NOVOLOG *MILD* ALGORI... Q4 SC ; Start at 09:00 Miscellaneous Information 1 ea NOTE XX ; Start 05/11/17 at 08:00 Glucose (Glutose) 15 gm Q15M PRN PO DECREASED GLUCOSE; Start 05/11/17 at 08:00 Glucose (Glutose) 22.5 gm Q15M PRN PO DECREASED GLUCOSE; Start 05/11/17 at 08: 00 Dextrose (D50w Syringe) 25 ml Q15M PRN IV DECREASED GLUCOSE; Start 05/11/17 at 08:00 Dextrose (D50w Syringe) 50 ml Q15M PRN IV DECREASED GLUCOSE; Start 05/11/17 at 08:00 Glucagon (Glucagen) 1 mg Q15M PRN IM DECREASED GLUCOSE; Start 05/11/17 at 08:00 Glucose (Glutose) 15 gm Q15M PRN BUCCAL DECREASED GLUCOSE; Start 05/11/17 at 08 :00 SYLWIA SY MD May 11, 2017 13:40
--- NOTE | 2017-05-11 13:41 | CONS ---
Date/Time of Note Date/Time of Note DATE: 05/11/17 TIME: 13:40 Assessment/Plan Assessment/Plan Chief Complaint/Hosp Course This 69-year-old female with a history of CVA vent dependent respiratory failure , was brought to the emergency room for the dislodgment of the GJ tube. Patient is nonverbal and no information can be obtained. No GI bleeding no chest pain no shortness of breath. Problems: Additional Assessment/Plan Additional Assessment/Plan 1. Dislodged of the GJ tube accidentally 2. Vent dependent respiratory failure 3. Chronic encephalopathy 4. Renal failure 5. Peripheral vascular disease 6. Anemia 7. Hypertension patient is still on dopamine Plan GJ tube, could not be done. GI lab did not have GJ tube. Hospital did not have GJ tube I will bring it from other facility. This patient note was for yesterday 05/10 Consultation Date/Type/Reason Admit Date/Time May 06, 2017 at 16:34 Type of Consultation: ID [id number] HR Interval Summary Subjective hx not possible: pt non-verbal, pt critical Exam/Review of Systems Vital Signs Vitals Vital Signs Date Time Temp Pulse Resp B/P Pulse Ox O2 Delivery O2 Flow Rate FiO2 05/11/17 12:00 86 05/11/17 11:30 16 100 30 05/11/17 11:00 114/69 05/11/17 08:15 98.2 Mechanical Ventilator 05/09/17 15:00 5.0 Intake and Output 05/10/17 05/10/17 05/11/17 15:00 23:00 07:00 Intake Total 382.500 ml 1169.171 ml 1016 ml Output Total 45 ml 205 ml 470 ml Balance 337.500 ml 964.171 ml 546 ml Exam Constitutional: alert, oriented, well developed Psych: nl mood/affect, no complaints Head: atraumatic, normocephalic Eyes: EOMI, PERRL, nl conjunctiva, nl lids, nl sclera ENMT: nl external ears & nose, nl lips & teeth, nl nasal mucosa & septum Neck: non-tender, supple Respiratory: clear to auscultation, normal air movement Cardiovascular: nl pulses, regular rate and rhythm Gastrointestinal: nl liver, spleen, non-tender, soft Musculoskeletal: nl extremities to inspection, nl gait and stance Extremities: normal pulses Neurological: CAR CHANGER II-XII intact, nl mental status, nl speech, nl strength Skin: nl turgor, No rash or lesions Lymph: nl lymph nodes Results Result Diagram: 05/11/17 0440 05/11/17 0440 Results 24 hrs Laboratory Tests Test 05/11/17 04:40 05/11/17 08:53 05/11/17 09:00 05/11/17 12:26 White Blood Count 10.8 # Red Blood Count 2.80 L Hemoglobin 8.1 L Hematocrit 27.3 L Mean Corpuscular Volume 97.5 Mean Corpuscular Hemoglobin 28.9 L Mean Corpuscular Hemoglobin Concent 29.7 L Red Cell Distribution Width 19.8 H Platelet Count 112 L Mean Platelet Volume 10.7 H Neutrophils % 63.0 Lymphocytes % 1.0 L Monocytes % 1.0 Eosinophils % 4.0 Basophils % 1.0 Nucleated Red Blood Cells % 0.0 Neutrophils # 6.8 Band Neutrophils # 6.8 H Lymphocytes # 0.1 L Monocytes # 0.1 L Eosinophils # 0.4 Basophils # 0.1 Nucleated Red Blood Cells # Anisocytosis 1+ Sodium Level 140 Potassium Level 4.0 Chloride Level 103 Carbon Dioxide Level 20 L Anion Gap 21 H Blood Urea Nitrogen 64 H Creatinine 2.08 H Glucose Level 261 #H Calcium Level 8.5 Phosphorus Level 5.5 H Magnesium Level 2.0 Bedside Glucose 96 88 Lactic Acid Level 1.6 Medications Medications Current Medications Atorvastatin Calcium (Lipitor) 10 mg QHS GTB ; Start 05/06/17 at 21:00 Bisacodyl (Dulcolax Supp) 10 mg Q48H RI Last administered on 05/08/17t 17:59; Admin Dose 10 MG; Start 05/06/17 at 17:00 Carbidopa/Levodopa (Sinemet (25/ 100)) 1 tab TID GTB ; Start 05/06/17 at 21:00 Clopidogrel Bisulfate (plaVIX) 75 mg DAILY GTB ; Start 05/07/17 at 09:00 Donepezil HCl (Aricept) 10 mg QHS GTB ; Start 05/06/17 at 21:00 Ferrous Sulfate (Ferrous Sulfate (Ec)) 325 mg BID PO ; Start 05/06/17 at 21:00 Folic Acid (Folic Acid) 1 mg DAILY GTB ; Start 05/07/17 at 09:00 Lactobacillus Acidophilus/ Rhamnosus (Culturelle) 1 cap QHS GTB ; Start at 21:00 Magnesium Hydroxide (Milk Of Mag) 30 ml Q24H GTB ; Start 05/06/17 at 17:00 Memantine (Namenda) 5 mg QAM GTB ; Start 05/07/17 at 09:00 Metoprolol Tartrate (Lopressor) 25 mg Q12H GTB ; Start 05/06/17 at 17:00 Multivit/Ca Carb/ B Cmplx/FA/Prenat (Radhika-John) 1 tab DAILY GTB ; Start at 09:00 Pramipexole (Mirapex) 0.5 mg DAILY GTB ; Start 05/07/17 at 09:00 Sodium Biphosphate/ Sodium Phosphate (Fleet Enema Pediatric) 118 ml Q72H PRN [place] CONSTIPATION; Start 05/06/17 at 17:00 Citric Acid/ Sodium Citrate (Bicitra) 30 ml BID PO ; Start 05/06/17 at 21:00 Heparin Sodium (Porcine) (Heparin (5000 Units/0.5 ml)) 5,000 unit BID SC Last administered on 05/11/17 09:09; Admin Dose 5,000 UNIT; Start 05/06/17 at 21:00 Nystatin (Nystatin Powder) 1 applic BID TOP Last administered on 05/11/17 09: 07; Admin Dose 1 APPLIC; Start 05/09/17 at 21:00 Mupirocin (Bactroban) 1 applic BID TOP Last administered on 05/11/17 09:07; Admin Dose 1 APPLIC; Start 05/09/17 at 12:30 Collagenase (Santyl) 1 applic DAILY TOP Last administered on 05/10/17 18:19; Admin Dose 1 APPLIC; Start 05/09/17 at 15:00 Collagenase 1 applic 1 applic PRN PRN TOP WOUND CARE; Start 05/09/17 at 14:00 Meropenem/Sodium Chloride 50 ml @ 100 mls/hr Q12 IVPB Last administered on 09:02; Admin Dose 100 MLS/HR; Start 05/09/17 at 15:00 Vancomycin HCl 250 ml @ 125 mls/hr Q48H IVPB ; Start 05/11/17 at 16:00 Sodium Chloride 1,000 ml @ 0 mls/hr Q0M IV ; Start 05/09/17 at 18:18 Sodium Chloride 1,000 ml @ 100 mls/hr Q10H IV Last administered on 05/11/17 04:01; Admin Dose 100 MLS/HR; Start 05/10/17 at 07:00 Norepinephrine 16 mg/Dextrose 500 ml @ 1.87 mls/hr TITRATE IV ; Start 05/10/17 at 14:00 Dopamine HCl/ Dextrose 250 ml @ 6.848 mls/ hr TITRATE IV Last administered on 05/11/17 04:05; Admin Dose 27.39 MLS/HR; Start 05/10/17 at 18:30 Diagnostic Test (Pha) (Accu-Chek) 1 ea 02 XX ; Start 05/12/17 at 02:00 Insulin Aspart (Novolog Insulin Pen) NOVOLOG *MILD* ALGORI... Q4 SC ; Start at 09:00 Miscellaneous Information 1 ea NOTE XX ; Start 05/11/17 at 08:00 Glucose (Glutose) 15 gm Q15M PRN PO DECREASED GLUCOSE; Start 05/11/17 at 08:00 Glucose (Glutose) 22.5 gm Q15M PRN PO DECREASED GLUCOSE; Start 05/11/17 at 08: 00 Dextrose (D50w Syringe) 25 ml Q15M PRN IV DECREASED GLUCOSE; Start 05/11/17 at 08:00 Dextrose (D50w Syringe) 50 ml Q15M PRN IV DECREASED GLUCOSE; Start 05/11/17 at 08:00 Glucagon (Glucagen) 1 mg Q15M PRN IM DECREASED GLUCOSE; Start 05/11/17 at 08:00 Glucose (Glutose) 15 gm Q15M PRN BUCCAL DECREASED GLUCOSE; Start 05/11/17 at 08 :00 SYLWIA SY MD May 11, 2017 13:41
[2017-05-11] MEDS ORDERED: VANCOMYCIN 1.25 GM in SOD CHLORIDE 0.9% 250 ML IVPB SCH (15:00)
[2017-05-11] MEDS ORDERED: VANCOMYCIN 1 GM in NS 250 ML IVPB SCH (16:00)
[2017-05-11] MEDS: MAGNESIUM HYDROXIDE 30ML CUP GTB SCH (16:34)
--- NOTE | 2017-05-11 17:11 | RADRPT ---
PROCEDURE: CT Abdomen and Pelvis without contrast. CLINICAL INDICATION: Abdominal and pelvic pain. Pain and swelling at the gastrostomy site. TECHNIQUE: CT scan of the abdomen and pelvis without contrast was performed. Coronal and sagittal reformatted images were obtained from the axial source images. Images were reviewed on a high-resolu [employer] PACS workstation. Total exam DLP is 1536.00 mGy-cm. CTDIvol is 23.65 mGy. One or more of the following dose reduction techniques were used: Automated exposure control, adjustment of the mA and/ or kV according to patient size, use of iterative reconstruction technique. COMPARISON: CT scan of the abdomen and pelvis dated 03/11/2017. FINDINGS: Visualized lower thorax: Compressive atelectasis of the left greater than right lower lobes is simil ar to the prior study with changes of emphysema again noted. There are small bilateral pleural effus ions, larger on the right and unchanged on the left. Liver, gallbladder, pancreas and spleen: The liver is normal and size, contour and attenuation. Ther e is no evidence for a liver mass or ductal dilatation. The gallbladder is unremarkable. No common b ile duct abnormality is demonstrated. The pancreas is unremarkable. Mild splenomegaly with accessory splenules is again noted. Adrenal glands and genitourinary system: The adrenal glands are normal bilaterally. Bilateral renal cortex thinning likely medical renal disease without evidence of calculus or hydronephrosis. The ure ters are unremarkable. A Collazo catheter is present with the urinary bladder contracted around the ca theter. The uterus is atrophic compatible with age without ovarian or adnexal mass. No free fluid in the cul-de-sac is present. Gastrointestinal system: A hiatal hernia is again noted. Surgical clips are present in the gastric fundus. The gastrostomy tube has been removed. A small catheter is noted at this site. There is th ickening of the skin in the gastrostomy site. However, there is no fluid collection to suggest an abscess. The subcutaneous fat on either side of the gastrostomy tube track is preserved. The small b owel is normal in caliber with no ileus, obstruction or wall thickening. There is no evidence of maria dolores endicitis. 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 There is no evidence f or colitis or diverticulitis. Peritoneum, retroperitoneum, lymph nodes and vessels: The abdominal aorta is normal in caliber. Ther e is moderate aortic and iliac system atherosclerotic calcification. The inferior vena cava is unrem arkable. There is no evidence for adenopathy or mass. There is no ascites. No pneumoperitoneum or in traperitoneal abscess is present. Osseous structures and musculoskeletal findings: Demineralization is noted with multilevel thoracolu mbar spondylosis but no evidence of acute osseous abnormality. Heterotopic ossification overlying th e left hip is again seen . Diffuse muscle atrophy and nodularity of the subcutaneous fat of the lowe r and abdominal wall again identified. IMPRESSION: 1. Induration of the skin and thickening of the subcutaneous fat along the gastrostomy tract is marine lar to the prior study dated 03/11/2017. However, the gastrostomy tube has been removed and a small catheter is now noted at this site. There is no evidence of abdominal wall or intraperitoneal absc ess. 2. Surgical clips in the gastric fundus posteriorly. 3. Larger right pleural effusion. Unchanged small left pleural effusion and bibasilar atelectasis. 4. Bilateral renal cortex thinning consistent with medical renal disease. Collazo catheter in the cheli dder. 5. Extensive diverticular disease of the distal colon without evidence of diverticulitis. 6. Heterotopic ossification overlying the left hip is again noted with diffuse muscle atrophy presum ably related to paralysis. 7. Stable nonspecific lower anterior abdominal wall subcutaneous nodules. 8. No new abnormality. RPTAT: QQ .Sourav Ramirez MD, Date Time Electronically viewed and signed by .Sourav Ramirez MD, on 05/11/2017 17:11 .R/
--- NOTE | 2017-05-11 18:02 | PN ---
Date/Time of Note Date/Time of Note DATE: 05/11/17 TIME: 18:00 Assessment/Plan VTE Prophylaxis VTE Prophylaxis Intervention: other Lines/Catheters IV Catheter Type (from Nrs): Peripheral IV Urinary Cath still in place: Yes Reason Cath still needed: other (indicate) Assessment/Plan Chief Complaint/Hosp Course 1. hypoxemic resp failure: s/p trach 2. Pafib; currently in NSR 3. hx HTN: now in shock and hypotensive. 4. encephalopathy 5. renal failure: f/u with nephrology 6. dysphagia 7. G tube malfunction/ infection will cont dopamine drip. cont resp care follow up with GI rec. ICU care as long as pt is on pressors correct lytes prn f/u renal fx. Problems: Subjective 24 Hr Interval Summary Free Text/Dictation Discussed with staff and rhythm was reviewed pt remains in NSR. NO AFIB seen NONVERBAL. events noted. pt is still ICU on dopamne drip and unable to wean off OBJECTIVE: General: no acute distress HEENT: NC/AT. NECK: NO JVD. no stridor. S/P trach on O2 CV: RRR. systolic murmur; no gallop or rubs. PULM: no wheezing anteriorly GI: SOFT, NT, ND, no rebound or guarding s/p dressing on the site of previous G tube Extremity: + B/L LE edema. no clubbing. neuro: opens her eyes to painful stimuli. does not follow commands Psych: calm rectal: deferred Exam/Review of Systems Vital Signs Vitals Vital Signs Date Time Temp Pulse Resp B/P Pulse Ox O2 Delivery O2 Flow Rate FiO2 05/11/17 17:00 73 12 100 30 05/11/17 15:00 114/53 05/11/17 13:00 Mechanical Ventilator Trach Collar 05/11/17 12:00 98.2 05/09/17 15:00 5.0 Intake and Output 05/10/17 05/10/17 05/11/17 15:00 23:00 07:00 Intake Total 382.500 ml 1169.171 ml 1016 ml Output Total 45 ml 205 ml 470 ml Balance 337.500 ml 964.171 ml 546 ml Results Result Diagram: 05/11/17 0440 05/11/170 Results 24 hrs Laboratory Tests Test 05/11/17 04:40 05/11/17 08:53 05/11/17 09:00 05/11/17 12:26 White Blood Count 10.8 # Red Blood Count 2.80 L Hemoglobin 8.1 L Hematocrit 27.3 L Mean Corpuscular Volume 97.5 Mean Corpuscular Hemoglobin 28.9 L Mean Corpuscular Hemoglobin Concent 29.7 L Red Cell Distribution Width 19.8 H Platelet Count 112 L Mean Platelet Volume 10.7 H Neutrophils % 63.0 Lymphocytes % 1.0 L Monocytes % 1.0 Eosinophils % 4.0 Basophils % 1.0 Nucleated Red Blood Cells % 0.0 Neutrophils # 6.8 Band Neutrophils # 6.8 H Lymphocytes # 0.1 L Monocytes # 0.1 L Eosinophils # 0.4 Basophils # 0.1 Nucleated Red Blood Cells # Anisocytosis 1+ Sodium Level 140 Potassium Level 4.0 Chloride Level 103 Carbon Dioxide Level 20 L Anion Gap 21 H Blood Urea Nitrogen 64 H Creatinine 2.08 H Glucose Level 261 #H Calcium Level 8.5 Phosphorus Level 5.5 H Magnesium Level 2.0 Bedside Glucose 96 88 Lactic Acid Level 1.6 Test 05/11/17 16:51 Bedside Glucose 80 Medications Medications Current Medications Atorvastatin Calcium (Lipitor) 10 mg QHS GTB ; Start 05/06/17 at 21:00 Bisacodyl (Dulcolax Supp) 10 mg Q48H NM Last administered on 05/08/17t 17:59; Admin Dose 10 MG; Start 05/06/17 at 17:00 Carbidopa/Levodopa (Sinemet (25/ 100)) 1 tab TID GTB ; Start 05/06/17 at 21:00 Clopidogrel Bisulfate (plaVIX) 75 mg DAILY GTB ; Start 05/07/17 at 09:00 Donepezil HCl (Aricept) 10 mg QHS GTB ; Start 05/06/17 at 21:00 Ferrous Sulfate (Ferrous Sulfate (Ec)) 325 mg BID PO ; Start 05/06/17 at 21:00 Folic Acid (Folic Acid) 1 mg DAILY GTB ; Start 05/07/17 at 09:00 Lactobacillus Acidophilus/ Rhamnosus (Culturelle) 1 cap QHS GTB ; Start at 21:00 Magnesium Hydroxide (Milk Of Mag) 30 ml Q24H GTB ; Start 05/06/17 at 17:00 Memantine (Namenda) 5 mg QAM GTB ; Start 05/07/17 at 09:00 Metoprolol Tartrate (Lopressor) 25 mg Q12H GTB ; Start 05/06/17 at 17:00 Multivit/Ca Carb/ B Cmplx/FA/Prenat (Radhika-John) 1 tab DAILY GTB ; Start at 09:00 Pramipexole (Mirapex) 0.5 mg DAILY GTB ; Start 05/07/17 at 09:00 Sodium Biphosphate/ Sodium Phosphate (Fleet Enema Pediatric) 118 ml Q72H PRN NM CONSTIPATION; Start 05/06/17 at 17:00 Citric Acid/ Sodium Citrate (Bicitra) 30 ml BID PO ; Start 05/06/17 at 21:00 Heparin Sodium (Porcine) (Heparin (5000 Units/0.5 ml)) 5,000 unit BID SC Last administered on 05/11/17 09:09; Admin Dose 5,000 UNIT; Start 05/06/17 at 21:00 Nystatin (Nystatin Powder) 1 applic BID TOP Last administered on 05/11/17 09: 07; Admin Dose 1 APPLIC; Start 05/09/17 at 21:00 Mupirocin (Bactroban) 1 applic BID TOP Last administered on 05/11/17 09:07; Admin Dose 1 APPLIC; Start 05/09/17 at 12:30 Collagenase (Santyl) 1 applic DAILY TOP Last administered on 05/11/17 09:00; Admin Dose 1 APPLIC; Start 05/09/17 at 15:00 Collagenase 1 applic 1 applic PRN PRN TOP WOUND CARE; Start 05/09/17 at 14:00 Meropenem/Sodium Chloride 50 ml @ 100 mls/hr Q12 IVPB Last administered on 09:02; Admin Dose 100 MLS/HR; Start 05/09/17 at 15:00 Vancomycin HCl 250 ml @ 125 mls/hr Q48H IVPB Last administered on 05/11/17 16 :42; Admin Dose 125 MLS/HR; Start 05/11/17 at 16:00 Sodium Chloride 1,000 ml @ 0 mls/hr Q0M IV ; Start 05/09/17 at 18:18 Sodium Chloride 1,000 ml @ 100 mls/hr Q10H IV Last administered on 05/11/17 14:24; Admin Dose 100 MLS/HR; Start 05/10/17 at 07:00 Norepinephrine 16 mg/Dextrose 500 ml @ 1.87 mls/hr TITRATE IV ; Start 05/10/17 at 14:00 Dopamine HCl/ Dextrose 250 ml @ 6.848 mls/ hr TITRATE IV Last administered on 05/11/17 04:05; Admin Dose 27.39 MLS/HR; Start 05/10/17 at 18:30 Diagnostic Test (Pha) (Accu-Chek) 1 ea 02 XX ; Start 05/12/17 at 02:00 Insulin Aspart (Novolog Insulin Pen) NOVOLOG *MILD* ALGORI... Q4 SC ; Start at 09:00 Miscellaneous Information 1 ea NOTE XX ; Start 05/11/17 at 08:00 Glucose (Glutose) 15 gm Q15M PRN PO DECREASED GLUCOSE; Start 05/11/17 at 08:00 Glucose (Glutose) 22.5 gm Q15M PRN PO DECREASED GLUCOSE; Start 05/11/17 at 08: 00 Dextrose (D50w Syringe) 25 ml Q15M PRN IV DECREASED GLUCOSE; Start 05/11/17 at 08:00 Dextrose (D50w Syringe) 50 ml Q15M PRN IV DECREASED GLUCOSE; Start 05/11/17 at 08:00 Glucagon (Glucagen) 1 mg Q15M PRN IM DECREASED GLUCOSE; Start 05/11/17 at 08:00 Glucose (Glutose) 15 gm Q15M PRN BUCCAL DECREASED GLUCOSE; Start 05/11/17 at 08 :00 MILAGROS MUNOZ MD May 11, 2017 18:02
--- NOTE | 2017-05-11 18:24 | RADRPT ---
PROCEDURE: XR Chest. CLINICAL INDICATION: Shortness of breath. TECHNIQUE: Single frontal view. COMPARISON: 05/10/2017. FINDINGS: The tracheostomy tube is in satisfactory position. The heart is mildly enlarged. There is pulmonary edema, unchanged. Small bilateral pleural effusions are unchanged. There is no pneumothorax. IMPRESSION: 1. No change from 05/10/2017. RPTAT: QQ .Sourav Ramirez MD, MD Date Time Electronically viewed and signed by .Sourav Ramirez MD, on 05/11/2017 18:24 .R/
[2017-05-11] MEDS: DONEPEZIL 10 MG TAB GTB SCH (20:12)
[2017-05-11] MEDS: LACTOBACILLUS RHAMNOSUS CAP GTB SCH (20:12)
[2017-05-11] MEDS: ATORVASTATIN 10 MG TAB GTB SCH (20:12)
[2017-05-12] VITALS (98 sets, daily range): BP systolic 68–159; BP diastolic 30–111; PULSE 72–93; RESP 11–22
[2017-05-12] MEDS: INSULIN ASPART [NOVOLOG] 3 ML PEN SC SCH ×6 (01:00→20:38)
[2017-05-12] MEDS: ACCU-CHEK XX SCH (02:00)
[2017-05-12] MEDS: METOPROLOL 25 MG TAB GTB SCH ×2 (05:00→17:00)
[2017-05-12 05:38] LABS: ABNORMAL IP MESSAGE 1; HEMOGLOBIN 8.8 g/dl (12.0-16.0); MEAN CORPUSCULAR HEMOGLOBIN 28.1 pg (29.0-33.0); MEAN CORPUSCULAR HGB CONC 29.3 g/dl (32.0-37.0); MEAN CORPUSCULAR VOLUME 95.8 fl (82.0-101.0); MEAN PLATELET VOLUME 10.4 fl (7.4-10.4); PLATELET COUNT 92 10^3/UL (140-415); RED BLOOD COUNT 3.13 10^6/ul (4.20-5.40); RED CELL DISTRIBUTION WIDTH 19.4 % (11.5-14.5); WHITE BLOOD COUNT 4.6 10^3/ul (4.8-10.8)
[2017-05-12 05:47] LABS: CALCIUM 9.2 mg/dl (8.4-10.2); CREATININE 2.56 mg/dl (0.44-1.00); PHOSPHORUS 6.3 mg/dl (2.5-4.9); POTASSIUM 3.9 mmol/L (3.5-5.1)
[2017-05-12 06:34] LABS: POSITIVE DIFF @See below
--- NOTE | 2017-05-12 07:58 | PN ---
Date/Time of Note Date/Time of Note DATE: 05/12/17 TIME: 07:56 Assessment/Plan VTE Prophylaxis VTE Prophylaxis Intervention: other Lines/Catheters IV Catheter Type (from Nrsg): Saline Lock Urinary Cath still in place: Yes Reason Cath still needed: other (indicate) Assessment/Plan Chief Complaint/Hosp Course 1. Septic shock Etiology likely multifactorial, pneumonia, cellulitis, wounds, Patient on pressor support, IV fluids, broad-spectrum antibiotics CT abdomen shows no acute intra-abdominal process Follow-up with infectious disease, monitor serial lactic acid levels dysphagia- g tube dislodged, Continue to monitor Follow-up with GI Acute hypoxemic respiratory failure status post trach Vent settings ABGs been reviewed Follow-up with pulmonary 3. Nonoliguric acute kidney injury on top of chronic kidney disease stage 4. Etiology hemodynamics, possible progression of disease Urinary output improved with diuretic challenge Continue to monitor closely No immediate need for renal replacement therapy at this time 4. Hypernatremia Continue hypotonic fluid 5. r/o scabies -treat with permethrin -id consult 6. chf -cont med/royce -f/u cardiology Gentle diuresis in the setting of pressors Right large pleural effusion Consider thoracentesis Monitor closely on diuretics 8. Acute encephalopathy and advanced dementia. Etiology is toxic metabolic. Continue to monitor. 9. Mineral bone disorder. Continue to monitor calcium and phosphorus levels. 10. Anemia. Will continue to monitor H and H levels. Continue Epogen. 11. Coronary artery disease. Continue medical management. 12. Diabetes. Continue Accu-Cheks and insulin sliding scale. 13. Decubitus wound. Continue wound care. Gastrointestinal and deep venous thrombosis prophylaxis. Continue proton pump inhibitor and heparin. Hypomagnesemia Replete magnesium sulfate Problems: Subjective 24 Hr Interval Summary Free Text/Dictation Patient seen and examined Remains critically on pressure support Patient awaiting G-tube placement Urinary output has been adequate No other events noted Exam/Review of Systems Vital Signs Vitals Vital Signs Date Time Temp Pulse Resp B/P Pulse Ox O2 Delivery O2 Flow Rate FiO2 05/12/17 06:15 73 13 108/53 100 05/12/17 06:00 Mechanical Ventilator 05/12/17 05:13 30 05/12/17 04:00 98.3 05/09/17 15:00 5.0 Intake and Output 05/11/17 05/11/17 05/12/17 15:00 23:00 07:00 Intake Total 1062.826 ml 936.16 ml 700 ml Output Total 800 ml 575 ml 435 ml Balance 262.826 ml 361.16 ml 265 ml Exam HEENT: Head is normocephalic, NECK: Supple. HEART: regular LUNGS: Show diminished breath sounds at base. ABDOMEN: Soft, nontender to palpation without rebound or guarding. EXTREMITIES: Negative for clubbing, cyanosis. Positive edema positive contractures positive wounds DERMATOLOGIC: No rashes. MUSCULOSKELETAL: No joint effusions, NEUROLOGIC: No change in exam. Results Result Diagram: 05/12/17 0445 05/12/17 0445 Results 24 hrs Laboratory Tests Test 05/11/17 08:53 05/11/17 09:00 05/11/17 12:26 05/11/17 16:51 Bedside Glucose 96 88 80 Lactic Acid Level 1.6 Test 05/11/17 21:13 05/12/17 01:41 05/12/17 04:45 05/12/17 06:10 Bedside Glucose 83 81 92 White Blood Count 4.6 #L Red Blood Count 3.13 L Hemoglobin 8.8 L Hematocrit 30.0 L Mean Corpuscular Volume 95.8 Mean Corpuscular Hemoglobin 28.1 L Mean Corpuscular Hemoglobin Concent 29.3 L Red Cell Distribution Width 19.4 H Platelet Count 92 L Mean Platelet Volume 10.4 Neutrophils % Lymphocytes % Monocytes % Eosinophils % Basophils % Nucleated Red Blood Cells % 0.0 Neutrophils # Lymphocytes # Monocytes # Eosinophils # Basophils # Nucleated Red Blood Cells # Sodium Level 144 Potassium Level 3.9 Chloride Level 108 Carbon Dioxide Level 21 Anion Gap 19 H Blood Urea Nitrogen 64 H Creatinine 2.56 H Glucose Level 83 # Calcium Level 9.2 Phosphorus Level 6.3 H Magnesium Level 2.0 Medications Medications Current Medications Atorvastatin Calcium (Lipitor) 10 mg QHS GTB ; Start 05/06/17 at 21:00 Bisacodyl (Dulcolax Supp) [address] Last administered on 05/08/17t 17:59; Admin Dose 10 MG; Start 05/06/17 at 17:00 Carbidopa/Levodopa (Sinemet (25/ 100)) 1 tab TID GTB ; Start 05/06/17 at 21:00 Clopidogrel Bisulfate (plaVIX) 75 mg DAILY GTB ; Start 05/07/17 at 09:00 Donepezil HCl (Aricept) 10 mg QHS GTB ; Start 05/06/17 at 21:00 Ferrous Sulfate (Ferrous Sulfate (Ec)) 325 mg BID PO ; Start 05/06/17 at 21:00 Folic Acid (Folic Acid) 1 mg DAILY GTB ; Start 05/07/17 at 09:00 Lactobacillus Acidophilus/ Rhamnosus (Culturelle) 1 cap QHS GTB ; Start at 21:00 Magnesium Hydroxide (Milk Of Mag) 30 ml Q24H GTB ; Start 05/06/17 at 17:00 Memantine (Namenda) 5 mg QAM GTB ; Start 05/07/17 at 09:00 Metoprolol Tartrate (Lopressor) 25 mg Q12H GTB ; Start 05/06/17 at 17:00 Multivit/Ca Carb/ B Cmplx/FA/Prenat (Radhika-John) 1 tab DAILY GTB ; Start at 09:00 Pramipexole (Mirapex) 0.5 mg DAILY GTB ; Start 05/07/17 at 09:00 Sodium Biphosphate/ Sodium Phosphate (Fleet Enema Pediatric) [address] CONSTIPATION; Start 05/06/17 at 17:00 Citric Acid/ Sodium Citrate (Bicitra) 30 ml BID PO ; Start 05/06/17 at 21:00 Heparin Sodium (Porcine) (Heparin (5000 Units/0.5 ml)) 5,000 unit BID SC Last administered on 05/11/17 21:26; Admin Dose 5,000 UNIT; Start 05/06/17 at 21:00 Nystatin (Nystatin Powder) 1 applic BID TOP Last administered on 05/11/17 21: 13; Admin Dose 1 APPLIC; Start 05/09/17 at 21:00 Mupirocin (Bactroban) 1 applic BID TOP Last administered on 05/11/17 09:07; Admin Dose 1 APPLIC; Start 05/09/17 at 12:30 Collagenase (Santyl) 1 applic DAILY TOP Last administered on 05/11/17 09:00; Admin Dose 1 APPLIC; Start 05/09/17 at 15:00 Collagenase 1 applic 1 applic PRN PRN TOP WOUND CARE; Start 05/09/17 at 14:00 Meropenem/Sodium Chloride 50 ml @ 100 mls/hr Q12 IVPB Last administered on 21:13; Admin Dose 100 MLS/HR; Start 05/09/17 at 15:00 Vancomycin HCl 250 ml @ 125 mls/hr Q48H IVPB Last administered on 05/11/17 16 :42; Admin Dose 125 MLS/HR; Start 05/11/17 at 16:00 Sodium Chloride 1,000 ml @ 0 mls/hr Q0M IV ; Start 05/09/17 at 18:18 Sodium Chloride 1,000 ml @ 100 mls/hr Q10H IV Last administered on 05/11/17 21:14; Admin Dose 100 MLS/HR; Start 05/10/17 at 07:00 Norepinephrine 16 mg/Dextrose 500 ml @ 1.87 mls/hr TITRATE IV ; Start 05/10/17 at 14:00 Dopamine HCl/ Dextrose 250 ml @ 6.848 mls/ hr TITRATE IV Last administered on 05/11/17 18:17; Admin Dose 10.271 MLS/HR; Start 05/10/17 at 18:30 Diagnostic Test (Pha) (Accu-Chek) 1 ea 02 XX ; Start 05/12/17 at 02:00 Insulin Aspart (Novolog Insulin Pen) NOVOLOG *MILD* ALGORI... Q4 SC ; Start at 09:00 Miscellaneous Information 1 ea NOTE XX ; Start 05/11/17 at 08:00 Glucose (Glutose) 15 gm Q15M PRN PO DECREASED GLUCOSE; Start 05/11/17 at 08:00 Glucose (Glutose) 22.5 gm Q15M PRN PO DECREASED GLUCOSE; Start 05/11/17 at 08: 00 Dextrose (D50w Syringe) 25 ml Q15M PRN IV DECREASED GLUCOSE; Start 05/11/17 at 08:00 Dextrose (D50w Syringe) 50 ml Q15M PRN IV DECREASED GLUCOSE; Start 05/11/17 at 08:00 Glucagon (Glucagen) 1 mg Q15M PRN IM DECREASED GLUCOSE; Start 05/11/17 at 08:00 Glucose (Glutose) 15 gm Q15M PRN BUCCAL DECREASED GLUCOSE; Start 05/11/17 at 08 :00 Furosemide (Lasix) 40 mg ONCE ONCE IV ; Start 05/12/17 at 08:00; Stop 05/12/17 at 08:01; Status OSMAR FORD DO May 12, 2017 07:58
[2017-05-12] MEDS ORDERED: FUROSEMIDE 40 MG INJ IV ONE (08:00)
[2017-05-12] MEDS: FOLIC ACID 1 MG TAB GTB SCH (09:00)
[2017-05-12] MEDS: CLOPIDOGREL 75 MG TAB GTB SCH (09:00)
[2017-05-12] MEDS: PRAMIPEXOLE 0.25 MG TAB GTB SCH (09:00)
[2017-05-12] MEDS: MEMANTINE 5 MG TAB GTB SCH (09:00)
[2017-05-12] MEDS: CITRIC ACID/NA CITRATE 30 ML CUP PO SCH ×2 (09:00→20:28)
[2017-05-12] MEDS: CARBIDOPA/LEVODOPA (25/100) TAB GTB SCH ×3 (09:00→20:28)
[2017-05-12] MEDS: FERROUS SULFATE (EC) 325 MG TAB PO SCH ×2 (09:00→20:28)
[2017-05-12] MEDS: MULTIVIT/CA CARB/B CMPLX/FA TAB GTB SCH (09:15)
[2017-05-12] MEDS: MEROPENEM 1 GM/50ML(PMX) 50 ML IVPB SCH ×2 (09:15→20:28)
[2017-05-12] MEDS: HEPARIN 5,000 UNIT/0.5 ML VIAL SC SCH ×2 (09:17→20:33)
[2017-05-12] MEDS: MUPIROCIN 2% 22 GM OINT TOP SCH ×2 (09:19→20:39)
[2017-05-12] MEDS: NYSTATIN 30 GM POWDER BTL TOP SCH ×2 (09:20→20:39)
[2017-05-12] MEDS: SOD CHLORIDE 0.45% 1,000 ML IV SCH ×2 (09:22→21:05)
--- NOTE | 2017-05-12 10:36 | CONS ---
Date/Time of Note Date/Time of Note DATE: 05/12/17 TIME: 10:32 Assessment/Plan Assessment/Plan Additional Assessment/Plan Chest x-ray was reviewed from yesterday evening which is showing very scant left lung infiltrates. Ventilator setting; AC of 12, tidal volume 500, PEEP of 0, 30% FiO2. Assessment recommendations; 1. Patient admitted with G-tube dislodgment with abdominal wall cellulitis, clinically improving. 2. Anemia and thrombocytopenia. 3. Advanced dementia. 4. Scant pneumonia. 5. Chronic respiratory failure. Continue current treatment. Patient can be transferred to the medical floor. Overall prognosis remains poor. Consultation Date/Type/Reason Admit Date/Time May 06, 2017 at 16:34 Initial Consult Date 05/10/17 Type of Consultation: Pulmonary 24 HR Interval Summary Free Text/Dictation Patient's condition remains unchanged. Remains essentially unresponsive but awake. Has remained hemodynamically stable. General exam; elderly woman, awake, on ventilator via tracheostomy, currently in no distress. Exam/Review of Systems Vital Signs Vitals Vital Signs Date Time Temp Pulse Resp B/P Pulse Ox O2 Delivery O2 Flow Rate FiO2 05/12/17 08:00 98.1 75 15 113/52 100 Mechanical Ventilator 05/12/17 05:13 30 05/09/17 15:00 5.0 Intake and Output 05/11/17 05/11/17 05/12/17 15:00 23:00 07:00 Intake Total 1062.826 ml 936.16 ml 700 ml Output Total 800 ml 575 ml 475 ml Balance 262.826 ml 361.16 ml 225 ml Exam HEENT exam; supple neck, no JVD. No lymphadenopathy. Midline trachea. No thyromegaly. Tracheostomy in place. Patient has multiple carious teeth. Chest exam; diminished but clear breath sound. S1-S2 audible, no murmurs. Regular rhythm. Abdomen exam; soft, dressing applied over epigastric area, there is continued improvement in abdominal wall cellulitis. Extremity exam; no peripheral edema. PECAN PICKER exam; patient is awake but unresponsive to any commands. Results Result Diagram: 05/12/17 0445 05/12/17 0445 Results 24 hrs Laboratory Tests Test 05/11/17 12:26 05/11/17 16:51 05/11/17 21:13 05/12/17 01:41 Bedside Glucose 88 80 83 81 Test 05/12/17 04:45 05/12/17 06:10 05/12/17 09:18 White Blood Count 4.6 #L Red Blood Count 3.13 L Hemoglobin 8.8 L Hematocrit 30.0 L Mean Corpuscular Volume 95.8 Mean Corpuscular Hemoglobin 28.1 L Mean Corpuscular Hemoglobin Concent 29.3 L Red Cell Distribution Width 19.4 H Platelet Count 92 L Mean Platelet Volume 10.4 Neutrophils % Lymphocytes % Monocytes % Eosinophils % Basophils % Nucleated Red Blood Cells % 0.0 Neutrophils # Lymphocytes # Monocytes # Eosinophils # Basophils # Nucleated Red Blood Cells # Sodium Level 144 Potassium Level 3.9 Chloride Level 108 Carbon Dioxide Level 21 Anion Gap 19 H Blood Urea Nitrogen 64 H Creatinine 2.56 H Glucose Level 83 # Calcium Level 9.2 Phosphorus Level 6.3 H Magnesium Level 2.0 Bedside Glucose 92 81 Medications Medications Current Medications Atorvastatin Calcium (Lipitor) 10 mg QHS GTB ; Start 05/06/17 at 21:00 Bisacodyl (Dulcolax Supp) 10 mg Q48H [place] Last administered on 05/08/17t 17:59; Admin Dose 10 MG; Start 05/06/17 at 17:00 Carbidopa/Levodopa (Sinemet (25/ 100)) 1 tab TID GTB ; Start 05/06/17 at 21:00 Clopidogrel Bisulfate (plaVIX) 75 mg DAILY GTB ; Start 05/07/17 at 09:00 Donepezil HCl (Aricept) 10 mg QHS GTB ; Start 05/06/17 at 21:00 Ferrous Sulfate (Ferrous Sulfate (Ec)) 325 mg BID PO ; Start 05/06/17 at 21:00 Folic Acid (Folic Acid) 1 mg DAILY GTB ; Start 05/07/17 at 09:00 Lactobacillus Acidophilus/ Rhamnosus (Culturelle) 1 cap QHS GTB ; Start at 21:00 Magnesium Hydroxide (Milk Of Mag) 30 ml Q24H GTB ; Start 05/06/17 at 17:00 Memantine (Namenda) 5 mg QAM GTB ; Start 05/07/17 at 09:00 Metoprolol Tartrate (Lopressor) 25 mg Q12H GTB ; Start 05/06/17 at 17:00 Multivit/Ca Carb/ B Cmplx/FA/Prenat (Radhika-John) 1 tab DAILY GTB Last administered on 05/12/17 09:15; Admin Dose 1 TAB; Start 05/07/17 at 09:00 Pramipexole (Mirapex) 0.5 mg DAILY GTB ; Start 05/07/17 at 09:00 Sodium Biphosphate/ Sodium Phosphate (Fleet Enema Pediatric) 118 ml Q72H PRN [place] CONSTIPATION; Start 05/06/17 at 17:00 Citric Acid/ Sodium Citrate (Bicitra) 30 ml BID PO ; Start 05/06/17 at 21:00 Heparin Sodium (Porcine) (Heparin (5000 Units/0.5 ml)) 5,000 unit BID SC Last administered on 05/12/17 09:17; Admin Dose 5,000 UNIT; Start 05/06/17 at 21:00 Nystatin (Nystatin Powder) 1 applic BID TOP Last administered on 05/12/17 09: 20; Admin Dose 1 APPLIC; Start 05/09/17 at 21:00 Mupirocin (Bactroban) 1 applic BID TOP Last administered on 05/12/17 09:19; Admin Dose 1 APPLIC; Start 05/09/17 at 12:30 Collagenase (Santyl) 1 applic DAILY TOP Last administered on 05/11/17 09:00; Admin Dose 1 APPLIC; Start 05/09/17 at 15:00 Collagenase 1 applic 1 applic PRN PRN TOP WOUND CARE; Start 05/09/17 at 14:00 Meropenem/Sodium Chloride 50 ml @ 100 mls/hr Q12 IVPB Last administered on 09:15; Admin Dose 100 MLS/HR; Start 05/09/17 at 15:00 Vancomycin HCl 250 ml @ 125 mls/hr Q48H IVPB Last administered on 05/11/17 16 :42; Admin Dose 125 MLS/HR; Start 05/11/17 at 16:00 Sodium Chloride 1,000 ml @ 0 mls/hr Q0M IV ; Start 05/09/17 at 18:18 Sodium Chloride 1,000 ml @ 100 mls/hr Q10H IV Last administered on 05/12/17 09:22; Admin Dose 100 MLS/HR; Start 05/10/17 at 07:00 Norepinephrine 16 mg/Dextrose 500 ml @ 1.87 mls/hr TITRATE IV ; Start 05/10/17 at 14:00 Dopamine HCl/ Dextrose 250 ml @ 6.848 mls/ hr TITRATE IV Last administered on 05/11/17t 18:17; Admin Dose 10.271 MLS/HR; Start 05/10/17 at 18:30 Diagnostic Test (Pha) (Accu-Chek) 1 ea 02 XX ; Start 05/12/17 at 02:00 Insulin Aspart (Novolog Insulin Pen) NOVOLOG *MILD* ALGORI... Q4 SC ; Start at 09:00 Miscellaneous Information 1 ea NOTE XX ; Start 05/11/17 at 08:00 Glucose (Glutose) 15 gm Q15M PRN PO DECREASED GLUCOSE; Start 05/11/17 at 08:00 Glucose (Glutose) 22.5 gm Q15M PRN PO DECREASED GLUCOSE; Start 05/11/17 at 08: 00 Dextrose (D50w Syringe) 25 ml Q15M PRN IV DECREASED GLUCOSE; Start 05/11/17 at 08:00 Dextrose (D50w Syringe) 50 ml Q15M PRN IV DECREASED GLUCOSE; Start 05/11/17 at 08:00 Glucagon (Glucagen) 1 mg Q15M PRN IM DECREASED GLUCOSE; Start 05/11/17 at 08:00 Glucose (Glutose) 15 gm Q15M PRN BUCCAL DECREASED GLUCOSE; Start 05/11/17 at 08 :00 Epoetin Vasyl (Epogen (Esrd)) 10,000 units MoWeFr@17 SC ; Start 05/13/17 at 17:00 SMITH RUIZ May 12, 2017 10:36
[2017-05-12 10:47] LABS: EOSINOPHILS # 0.2 10^3/ul (0.0-0.5); ERYTHROBLAST% (NRBC) (M) 1 % (0-0); LYMPHOCYTES # 0.1 10^3/ul (0.8-2.9); MONOCYTE # 0.1 10^3/ul (0.3-0.9); NEUTROPHIL # 3.9 10^3/ul (1.6-7.5)
--- NOTE | 2017-05-12 13:08 | CONS ---
Date/Time of Note Date/Time of Note DATE: 05/12/17 TIME: 13:05 Assessment/Plan Assessment/Plan Chief Complaint/Hosp Course No events overnight patient is lying comfortably in bed afebrile, on dopamine drip at 4 mcg per kilo per minute Temperature 97 pulse 72 respirations 14 blood pressure 96/39 saturation 100 on vent WBC 4.6 H&H 8.8 and 30 platelets 92 neutrophils 85 BUN 64 creatinine 2.56 Microbiology blood cultures remain negative urine culture pending. Urinalysis revealed cloudy urszula urine was positive for leukocyte Estrace presence of WBCs CT of the abdomen revealed induration of the skin and thickening of the subcutaneous fat along the gastrostomy tract larger right pleural effusion 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 Septic shock 2. Possible healthcare associated pneumonia 3. G-tube malfunction with surrounding cellulitis 4. Rash, no scabies per skin scraping 5. Chronic respiratory failure 6. Multiple chronic decubitus 7. 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 UTI as per urinalysis Plan: Remains hemodynamically unstable, pending urine culture, continue antibiotics, vent support per pulmonary, local wound care, follow GI recommendations, pending PEG Discussed with RN Problems: Consultation Date/Type/Reason Admit Date/Time May 06, 2017 at 16:34 Initial Consult Date 05/09/17 Type of Consultation: id Exam/Review of Systems Vital Signs Vitals Vital Signs Date Time Temp Pulse Resp B/P Pulse Ox O2 Delivery O2 Flow Rate FiO2 05/12/17 12:45 72 14 95/43 05/12/17 12:30 100 05/12/17 12:00 97.0 Mechanical Ventilator 05/12/17 05:13 30 05/09/17 15:00 5.0 Intake and Output 05/11/17 05/11/17 05/12/17 15:00 23:00 07:00 Intake Total 1062.826 ml 936.16 ml 700 ml Output Total 800 ml 575 ml 475 ml Balance 262.826 ml 361.16 ml 225 ml Results Result Diagram: 05/12/17 0445 05/12/17 0445 Results 24 hrs Laboratory Tests Test 05/11/17 16:51 05/11/17 21:13 05/12/17 01:41 05/12/17 04:45 Bedside Glucose 80 83 81 White Blood Count 4.6 #L Red Blood Count 3.13 L Hemoglobin 8.8 L Hematocrit 30.0 L Mean Corpuscular Volume 95.8 Mean Corpuscular Hemoglobin 28.1 L Mean Corpuscular Hemoglobin Concent 29.3 L Red Cell Distribution Width 19.4 H Platelet Count 92 L Mean Platelet Volume 10.4 Neutrophils % 85.0 H Lymphocytes % 3.0 L Monocytes % 3.0 Eosinophils % 4.0 Basophils % Nucleated Red Blood Cells % 1 H Neutrophils # 3.9 Band Neutrophils # 3.9 H Lymphocytes # 0.1 L Monocytes # 0.1 L Eosinophils # 0.2 Basophils # Nucleated Red Blood Cells # Sodium Level 144 Potassium Level 3.9 Chloride Level 108 Carbon Dioxide Level 21 Anion Gap 19 H Blood Urea Nitrogen 64 H Creatinine 2.56 H Glucose Level 83 # Calcium Level 9.2 Phosphorus Level 6.3 H Magnesium Level 2.0 Test 05/12/17 06:10 05/12/17 09:18 Bedside Glucose 92 81 Medications Medications Current Medications Atorvastatin Calcium (Lipitor) 10 mg QHS GTB ; Start 05/06/17 at 21:00 Bisacodyl (Dulcolax Supp) 10 mg Q48H [place] Last administered on 05/08/17t 17:59; Admin Dose 10 MG; Start 05/06/17 at 17:00 Carbidopa/Levodopa (Sinemet (25/ 100)) 1 tab TID GTB ; Start 05/06/17 at 21:00 Clopidogrel Bisulfate (plaVIX) 75 mg DAILY GTB ; Start 05/07/17 at 09:00 Donepezil HCl (Aricept) 10 mg QHS GTB ; Start 05/06/17 at 21:00 Ferrous Sulfate (Ferrous Sulfate (Ec)) 325 mg BID PO ; Start 05/06/17 at 21:00 Folic Acid (Folic Acid) 1 mg DAILY GTB ; Start 05/07/17 at 09:00 Lactobacillus Acidophilus/ Rhamnosus (Culturelle) 1 cap QHS GTB ; Start at 21:00 Magnesium Hydroxide (Milk Of Mag) 30 ml Q24H GTB ; Start 05/06/17 at 17:00 Memantine (Namenda) 5 mg QAM GTB ; Start 05/07/17 at 09:00 Metoprolol Tartrate (Lopressor) 25 mg Q12H GTB ; Start 05/06/17 at 17:00 Multivit/Ca Carb/ B Cmplx/FA/Prenat (Radhika-John) 1 tab DAILY GTB Last administered on 05/12/17 09:15; Admin Dose 1 TAB; Start 05/07/17 at 09:00 Pramipexole (Mirapex) 0.5 mg DAILY GTB ; Start 05/07/17 at 09:00 Sodium Biphosphate/ Sodium Phosphate (Fleet Enema Pediatric) 118 ml Q72H PRN [place] CONSTIPATION; Start 05/06/17 at 17:00 Citric Acid/ Sodium Citrate (Bicitra) 30 ml BID PO ; Start 05/06/17 at 21:00 Heparin Sodium (Porcine) (Heparin (5000 Units/0.5 ml)) 5,000 unit BID SC Last administered on 05/12/17 09:17; Admin Dose 5,000 UNIT; Start 05/06/17 at 21:00 Nystatin (Nystatin Powder) 1 applic BID TOP Last administered on 05/12/17 09: 20; Admin Dose 1 APPLIC; Start 05/09/17 at 21:00 Mupirocin (Bactroban) 1 applic BID TOP Last administered on 05/12/17 09:19; Admin Dose 1 APPLIC; Start 05/09/17 at 12:30 Collagenase (Santyl) 1 applic DAILY TOP Last administered on 05/11/17 09:00; Admin Dose 1 APPLIC; Start 05/09/17 at 15:00 Collagenase 1 applic 1 applic PRN PRN TOP WOUND CARE; Start 05/09/17 at 14:00 Meropenem/Sodium Chloride 50 ml @ 100 mls/hr Q12 IVPB Last administered on 09:15; Admin Dose 100 MLS/HR; Start 05/09/17 at 15:00 Vancomycin HCl 250 ml @ 125 mls/hr Q48H IVPB Last administered on 05/11/17 16 :42; Admin Dose 125 MLS/HR; Start 05/11/17 at 16:00 Sodium Chloride 1,000 ml @ 0 mls/hr Q0M IV ; Start 05/09/17 at 18:18 Sodium Chloride 1,000 ml @ 100 mls/hr Q10H IV Last administered on 05/12/17 09:22; Admin Dose 100 MLS/HR; Start 05/10/17 at 07:00 Norepinephrine 16 mg/Dextrose 500 ml @ 1.87 mls/hr TITRATE IV ; Start 05/10/17 at 14:00 Dopamine HCl/ Dextrose 250 ml @ 6.848 mls/ hr TITRATE IV Last administered on 05/11/17 18:17; Admin Dose 10.271 MLS/HR; Start 05/10/17 at 18:30 Diagnostic Test (Pha) (Accu-Chek) 1 ea 02 XX ; Start 05/12/17 at 02:00 Insulin Aspart (Novolog Insulin Pen) NOVOLOG *MILD* ALGORI... Q4 SC ; Start at 09:00 Miscellaneous Information 1 ea NOTE XX ; Start 05/11/17 at 08:00 Glucose (Glutose) 15 gm Q15M PRN PO DECREASED GLUCOSE; Start 05/11/17 at 08:00 Glucose (Glutose) 22.5 gm Q15M PRN PO DECREASED GLUCOSE; Start 05/11/17 at 08: 00 Dextrose (D50w Syringe) 25 ml Q15M PRN IV DECREASED GLUCOSE; Start 05/11/17 at 08:00 Dextrose (D50w Syringe) 50 ml Q15M PRN IV DECREASED GLUCOSE; Start 05/11/17 at 08:00 Glucagon (Glucagen) 1 mg Q15M PRN IM DECREASED GLUCOSE; Start 05/11/17 at 08:00 Glucose (Glutose) 15 gm Q15M PRN BUCCAL DECREASED GLUCOSE; Start 05/11/17 at 08 :00 Epoetin Vasyl (Epogen (Esrd)) 10,000 units MoWeFr@17 SC ; Start 05/13/17 at 17:00 Miscellaneous Information (*Rx Drug Level Order Reminder*) VANCOMYCIN TROUGH AT 1500 ONCE ONCE XX ; Start 05/12/17 at 15:00; Stop 05/12/17 at 15:01 DOROTHY CORONADO NP May 12, 2017 13:08
[2017-05-12] MEDS ORDERED: LIDOCAINE 2% (SDV) 5 ML INJ ONE (13:24)
[2017-05-12] MEDS ORDERED: MIDAZOLAM 1 MG/ML 2 ML INJ ONE (13:24)
[2017-05-12] MEDS ORDERED: FENTAnyl 50 MCG/ML VIAL ONE (13:24)
[2017-05-12] MEDS ORDERED: PHENYLephrine (100 MCG/ML) 5ML SYG ONE (13:25)
[2017-05-12] MEDS ORDERED: ETOMIDATE 20 MG INJ ONE (13:25)
--- NOTE | 2017-05-12 14:02 | OPR ---
Date/Time of Note Date/Time of Note DATE: 05/12/17 TIME: 13:59 Operative Report Preoperative Diagnosis Dysphagia and aspiration Postoperative Diagnosis Placement of jejunostomy tube Operation/Procedure Performed Indication : elderly female undergoing this procedure for dysphagia and aspiration pneumonia Consent: The risk of the procedure relate immediate complication anesthetic risk alternative discussed and informed consent was obtained Jejunostomy tube placed a successfully Balloon of GJ tube was nonfunctional Surgeon: SYLWIA SY MD Anesthesia: MAC, other Estimated Blood Loss: none Complications: None SYLWIA SY MD May 12, 2017 14:02
[2017-05-12] MEDS ORDERED: EPHEDrine SULFATE 50 MG/5 ML SYG ONE (14:13)
--- NOTE | 2017-05-12 16:26 | PN ---
Date/Time of Note Date/Time of Note DATE: 05/12/17 TIME: 16:25 Assessment/Plan VTE Prophylaxis VTE Prophylaxis Intervention: other Lines/Catheters IV Catheter Type (from Nrs): Saline Lock Urinary Cath still in place: Yes Reason Cath still needed: other (indicate) Assessment/Plan Chief Complaint/Hosp Course 1. hypoxemic resp failure: s/p trach 2. Pafib; currently in NSR 3. hx HTN: now in shock and hypotensive. : STILL ON DOPAMINE DRIP 4. encephalopathy 5. renal failure: f/u with nephrology 6. dysphagia 7. G tube malfunction/ infection will cont dopamine drip. cont resp care nutritional support. ICU care as long as pt is on pressors correct lytes prn f/u renal fx. Problems: Subjective 24 Hr Interval Summary Free Text/Dictation Discussed with staff and rhythm was reviewed pt remains in NSR. NO AFIB seen NONVERBAL. pt is still ICU on dopamne drip and unable to wean off s/p PEG placement 05/12/17 again OBJECTIVE: General: no acute distress HEENT: NC/AT. NECK: NO JVD. no stridor. S/P trach on O2 CV: RRR. systolic murmur; no gallop or rubs. PULM: no wheezing anteriorly GI: SOFT, NT, ND, no rebound or guarding s/p PEG Extremity: + B/L LE edema. no clubbing. neuro: opens her eyes to painful stimuli. does not follow commands Psych: calm rectal: deferred Exam/Review of Systems Vital Signs Vitals Vital Signs Date Time Temp Pulse Resp B/P Pulse Ox O2 Delivery O2 Flow Rate FiO2 05/12/17 16:00 75 05/12/17 15:45 13 106/42 05/12/17 15:30 100 05/12/17 15:00 Mechanical Ventilator 05/12/17 12:00 97.0 05/12/17 09:00 30 05/09/17 15:00 5.0 Intake and Output 05/11/17 05/11/17 05/12/17 15:00 23:00 07:00 Intake Total 1062.826 ml 936.16 ml 700 ml Output Total 800 ml 575 ml 475 ml Balance 262.826 ml 361.16 ml 225 ml Results Result Diagram: 05/12/1744405/12/175 Results 24 hrs Laboratory Tests Test 05/11/17 16:51 05/11/17 21:13 05/12/17 01:41 05/12/17 04:45 Bedside Glucose 80 83 81 White Blood Count 4.6 #L Red Blood Count 3.13 L Hemoglobin 8.8 L Hematocrit 30.0 L Mean Corpuscular Volume 95.8 Mean Corpuscular Hemoglobin 28.1 L Mean Corpuscular Hemoglobin Concent 29.3 L Red Cell Distribution Width 19.4 H Platelet Count 92 L Mean Platelet Volume 10.4 Neutrophils % 85.0 H Lymphocytes % 3.0 L Monocytes % 3.0 Eosinophils % 4.0 Basophils % Nucleated Red Blood Cells % 1 H Neutrophils # 3.9 Band Neutrophils # 3.9 H Lymphocytes # 0.1 L Monocytes # 0.1 L Eosinophils # 0.2 Basophils # Nucleated Red Blood Cells # Sodium Level 144 Potassium Level 3.9 Chloride Level 108 Carbon Dioxide Level 21 Anion Gap 19 H Blood Urea Nitrogen 64 H Creatinine 2.56 H Glucose Level 83 # Calcium Level 9.2 Phosphorus Level 6.3 H Magnesium Level 2.0 Test 05/12/17 06:10 05/12/17 09:18 05/12/17 14:41 Bedside Glucose 92 81 85 Medications Medications Current Medications Atorvastatin Calcium (Lipitor) 10 mg QHS GTB ; Start 05/06/17 at 21:00 Bisacodyl (Dulcolax Supp) 10 mg Q48H [place] Last administered on 05/08/17t 17:59; Admin Dose 10 MG; Start 05/06/17 at 17:00 Carbidopa/Levodopa (Sinemet (25/ 100)) 1 tab TID GTB ; Start 05/06/17 at 21:00 Clopidogrel Bisulfate (plaVIX) 75 mg DAILY GTB ; Start 05/07/17 at 09:00 Donepezil HCl (Aricept) 10 mg QHS GTB ; Start 05/06/17 at 21:00 Ferrous Sulfate (Ferrous Sulfate (Ec)) 325 mg BID PO ; Start 05/06/17 at 21:00 Folic Acid (Folic Acid) 1 mg DAILY GTB ; Start 05/07/17 at 09:00 Lactobacillus Acidophilus/ Rhamnosus (Culturelle) 1 cap QHS GTB ; Start at 21:00 Magnesium Hydroxide (Milk Of Mag) 30 ml Q24H GTB ; Start 05/06/17 at 17:00 Memantine (Namenda) 5 mg QAM GTB ; Start 05/07/17 at 09:00 Metoprolol Tartrate (Lopressor) 25 mg Q12H GTB ; Start 05/06/17 at 17:00 Multivit/Ca Carb/ B Cmplx/FA/Prenat (Radhika-John) 1 tab DAILY GTB Last administered on 05/12/17 09:15; Admin Dose 1 TAB; Start 05/07/17 at 09:00 Pramipexole (Mirapex) 0.5 mg DAILY GTB ; Start 05/07/17 at 09:00 Sodium Biphosphate/ Sodium Phosphate (Fleet Enema Pediatric) 118 ml Q72H PRN [place] CONSTIPATION; Start 05/06/17 at 17:00 Citric Acid/ Sodium Citrate (Bicitra) 30 ml BID PO ; Start 05/06/17 at 21:00 Heparin Sodium (Porcine) (Heparin (5000 Units/0.5 ml)) 5,000 unit BID SC Last administered on 05/12/17 09:17; Admin Dose 5,000 UNIT; Start 05/06/17 at 21:00 Nystatin (Nystatin Powder) 1 applic BID TOP Last administered on 05/12/17 09: 20; Admin Dose 1 APPLIC; Start 05/09/17 at 21:00 Mupirocin (Bactroban) 1 applic BID TOP Last administered on 05/12/17 09:19; Admin Dose 1 APPLIC; Start 05/09/17 at 12:30 Collagenase (Santyl) 1 applic DAILY TOP Last administered on 05/11/17 09:00; Admin Dose 1 APPLIC; Start 05/09/17 at 15:00 Collagenase 1 applic 1 applic PRN PRN TOP WOUND CARE; Start 05/09/17 at 14:00 Meropenem/Sodium Chloride 50 ml @ 100 mls/hr Q12 IVPB Last administered on 09:15; Admin Dose 100 MLS/HR; Start 05/09/17 at 15:00 Vancomycin HCl 250 ml @ 125 mls/hr Q48H IVPB Last administered on 05/11/17 16 :42; Admin Dose 125 MLS/HR; Start 05/11/17 at 16:00 Sodium Chloride 1,000 ml @ 0 mls/hr Q0M IV ; Start 05/09/17 at 18:18 Sodium Chloride 1,000 ml @ 100 mls/hr Q10H IV Last administered on 05/12/17 09:22; Admin Dose 100 MLS/HR; Start 05/10/17 at 07:00 Norepinephrine 16 mg/Dextrose 500 ml @ 1.87 mls/hr TITRATE IV ; Start 05/10/17 at 14:00 Dopamine HCl/ Dextrose 250 ml @ 6.848 mls/ hr TITRATE IV Last administered on 05/11/17 18:17; Admin Dose 10.271 MLS/HR; Start 05/10/17 at 18:30 Diagnostic Test (Pha) (Accu-Chek) 1 ea 02 XX ; Start 05/12/17 at 02:00 Insulin Aspart (Novolog Insulin Pen) NOVOLOG *MILD* ALGORI... Q4 SC ; Start at 09:00 Miscellaneous Information 1 ea NOTE XX ; Start 05/11/17 at 08:00 Glucose (Glutose) 15 gm Q15M PRN PO DECREASED GLUCOSE; Start 05/11/17 at 08:00 Glucose (Glutose) 22.5 gm Q15M PRN PO DECREASED GLUCOSE; Start 05/11/17 at 08: 00 Dextrose (D50w Syringe) 25 ml Q15M PRN IV DECREASED GLUCOSE; Start 05/11/17 at 08:00 Dextrose (D50w Syringe) 50 ml Q15M PRN IV DECREASED GLUCOSE; Start 05/11/17 at 08:00 Glucagon (Glucagen) 1 mg Q15M PRN IM DECREASED GLUCOSE; Start 05/11/17 at 08:00 Glucose (Glutose) 15 gm Q15M PRN BUCCAL DECREASED GLUCOSE; Start 05/11/17 at 08 :00 Epoetin Vasyl (Epogen (Esrd)) 10,000 units MoWeFr@17 SC ; Start 05/13/17 at 17:00 MILAGROS MUNOZ MD May 12, 2017 16:26
[2017-05-12] MEDS: BISACODYL 10 MG SUPP PR SCH (17:57)
[2017-05-12] MEDS: MAGNESIUM HYDROXIDE 30ML CUP GTB SCH (17:57)
[2017-05-12] MEDS: COLLAGENASE 30 GM TUBE TOP SCH (18:55)
[2017-05-12] MEDS: ATORVASTATIN 10 MG TAB GTB SCH (20:28)
[2017-05-12] MEDS: DONEPEZIL 10 MG TAB GTB SCH (20:28)
[2017-05-12] MEDS: LACTOBACILLUS RHAMNOSUS CAP GTB SCH (20:28)
--- NOTE | 2017-05-12 23:44 | CONS ---
Date/Time of Note Date/Time of Note DATE: 05/12/17 TIME: 23:43 Assessment/Plan Assessment/Plan Chief Complaint/Hosp Course 1. G-tube dislodgement: replaced with gjtube by GI, copious amount of coffee ground drainage peristomal -surgical placement of jtube 2. Septic shock: multifactorial: 2/2: pneumonia + cellulitis + wounds; on pressors -abx -supportive 3. Respiratory failure with trach: PNA wtih pulm edema -pulmonary toilet -abx -supportive 4.STARLA with CKD; +urine output -judicious fluids -renally dose meds -per nephrology 5. Leukopenia:2/2 #2 -support -as above 4. Hypernatremia Continue hypotonic fluid 5. Normocytic anemia: coffee ground drainage peristoma -monitor and transfuse as needed -continue Epogen 6. Hypokalemia -optimize lytes 7. CHF -supportive -f/u cardiology 8. Diabetes: well controlled 9. Acute encephalopathy with history of advanced dementia. -supportive 10. Coronary artery disease. 11. Decubitus wound. Continue wound care. 12. r/o scabies: treated prophylactically Thank you, Problems: Consultation Date/Type/Reason Admit Date/Time May 06, 2017 at 16:34 Date of Consultation: May 12, 2017 Type of Consultation: surgical Reason for Consultation g tube malfunction Hx of Present Illness Kailey French is an 86-woman with multiple comorbidities who presented to [facility] for evaluation of her G tube dislodgement. CT of the abdomen showed induration of the skin and thickening of the subcutaneous fat along the gastrostomy tract; no abscess noted. The gastrostomy tube has been removed and a small catheter was placed. GI subsequently replaced her g tube with a gjtube. There is noted coffee ground leak peristoma. Additionally, the patient was noted to have diarrhea when tf started per j tube. Surgical consult was called to evaluate for surgical placement of j tube. Subjective hx not possible: pt non-verbal Constitutional: No chills, No diaphoresis Eyes: No discharge Respiratory: cough (min), sputum, No shortness of breath Cardiovascular: No palpitations Gastrointestinal: diarrhea, other (gjtube peristomal leak) Genitourinary: No bleeding, No discharge Musculoskeletal: restricted range of motion Skin: No bruising, No erythema Neurologic: confusion Psychological: no complaints, No nl mood/affect Past Medical History Alzheimer's dementia ventilatory dependent respiratory failure chronic kidney disease stage 4 anemia contractures dementia coronary artery disease gastrocutaneous fistula Medical History: congestive heart failure, renal disease Past Surgical History placement of PEG tracheostomy Past Surgical Hx: endoscopy Family History Significant Family History: other (noncontributory) Social History Alcohol Use: none Smoking Status: Unknown if ever smoked Drug Use: none Exam/Review of Systems Vital Signs Vitals Vital Signs Date Time Temp Pulse Resp B/P Pulse Ox O2 Delivery O2 Flow Rate FiO2 05/12/17 23:19 80 14 99 30 05/12/17 20:45 88/41 05/12/17 20:00 98.1 Mechanical Ventilator 05/09/17 15:00 5.0 Intake and Output 05/11/17 05/11/17 05/12/17 15:00 23:00 07:00 Intake Total 1062.826 ml 936.16 ml 700 ml Output Total 800 ml 575 ml 475 ml Balance 262.826 ml 361.16 ml 225 ml Exam Constitutional: alert, non-verbal, No oriented Psych: confusion Head: atraumatic, normocephalic Eyes: PERRL, nl sclera ENMT: mucosa pink and moist Neck: non-tender, other (trach), supple Respiratory: congested cough Cardiovascular: edema Gastrointestinal: distended (mod), other (peristomal leak: coffee ground drainage), soft, tender Musculoskeletal: No muscle tone Extremities: edema Neurological: No nl mental status, No nl speech Skin: other (abdominal/peristomal/breast fold redness, moist; ) Results Result Diagram: 05/12/17 0445 05/12/175 Results 24 hrs Laboratory Tests Test 05/12/17 01:41 05/12/17 04:45 05/12/17 06:10 05/12/17 09:18 Bedside Glucose 81 92 81 White Blood Count 4.6 #L Red Blood Count 3.13 L Hemoglobin 8.8 L Hematocrit 30.0 L Mean Corpuscular Volume 95.8 Mean Corpuscular Hemoglobin 28.1 L Mean Corpuscular Hemoglobin Concent 29.3 L Red Cell Distribution Width 19.4 H Platelet Count 92 L Mean Platelet Volume 10.4 Neutrophils % 85.0 H Lymphocytes % 3.0 L Monocytes % 3.0 Eosinophils % 4.0 Basophils % Nucleated Red Blood Cells % 1 H Neutrophils # 3.9 Band Neutrophils # 3.9 H Lymphocytes # 0.1 L Monocytes # 0.1 L Eosinophils # 0.2 Basophils # Nucleated Red Blood Cells # Sodium Level 144 Potassium Level 3.9 Chloride Level 108 Carbon Dioxide Level 21 Anion Gap 19 H Blood Urea Nitrogen 64 H Creatinine 2.56 H Glucose Level 83 # Calcium Level 9.2 Phosphorus Level 6.3 H Magnesium Level 2.0 Test 05/12/17 14:41 05/12/17 17:57 05/12/17 20:35 Bedside Glucose 85 122 114 Medications Medications Current Medications Atorvastatin Calcium (Lipitor) 10 mg QHS GTB Last administered on 05/12/17 20: 28; Admin Dose 10 MG; Start 05/06/17 at 21:00 Bisacodyl (Dulcolax Supp) 10 mg Q48H NV Last administered on 05/12/17 17:57; Admin Dose 10 MG; Start 05/06/17 at 17:00 Carbidopa/Levodopa (Sinemet (25/ 100)) 1 tab TID GTB Last administered on 20:28; Admin Dose 1 TAB; Start 05/06/17 at 21:00 Clopidogrel Bisulfate (plaVIX) 75 mg DAILY GTB ; Start 05/07/17 at 09:00 Donepezil HCl (Aricept) 10 mg QHS GTB Last administered on 05/12/17 20:28; Admin Dose 10 MG; Start 05/06/17 at 21:00 Ferrous Sulfate (Ferrous Sulfate (Ec)) 325 mg BID PO Last administered on 20:28; Admin Dose 325 MG; Start 05/06/17 at 21:00 Folic Acid (Folic Acid) 1 mg DAILY GTB ; Start 05/07/17 at 09:00 Lactobacillus Acidophilus/ Rhamnosus (Culturelle) 1 cap QHS GTB Last administered on 05/12/17 20:28; Admin Dose 1 CAP; Start 05/06/17 at 21:00 Magnesium Hydroxide (Milk Of Mag) 30 ml Q24H GTB Last administered on 17:57; Admin Dose 30 ML; Start 05/06/17 at 17:00 Memantine (Namenda) 5 mg QAM GTB ; Start 05/07/17 at 09:00 Metoprolol Tartrate (Lopressor) 25 mg Q12H GTB ; Start 05/06/17 at 17:00 Multivit/Ca Carb/ B Cmplx/FA/Prenat (Radhika-John) 1 tab DAILY GTB Last administered on 05/12/17 09:15; Admin Dose 1 TAB; Start 05/07/17 at 09:00 Pramipexole (Mirapex) 0.5 mg DAILY GTB ; Start 05/07/17 at 09:00 Sodium Biphosphate/ Sodium Phosphate (Fleet Enema Pediatric) 118 ml Q72H PRN NV CONSTIPATION; Start 05/06/17 at 17:00 Citric Acid/ Sodium Citrate (Bicitra) 30 ml BID PO Last administered on 20:28; Admin Dose 30 ML; Start 05/06/17 at 21:00 Heparin Sodium (Porcine) (Heparin (5000 Units/0.5 ml)) 5,000 unit BID SC Last administered on 05/12/17 20:33; Admin Dose 5,000 UNIT; Start 05/06/17 at 21:00 Nystatin (Nystatin Powder) 1 applic BID TOP Last administered on 05/12/17 20: 39; Admin Dose 1 APPLIC; Start 05/09/17 at 21:00 Mupirocin (Bactroban) 1 applic BID TOP Last administered on 05/12/17 20:39; Admin Dose 1 APPLIC; Start 05/09/17 at 12:30 Collagenase (Santyl) 1 applic DAILY TOP Last administered on 05/12/17 18:55; Admin Dose 1 APPLIC; Start 05/09/17 at 15:00 Collagenase 1 applic 1 applic PRN PRN TOP WOUND CARE; Start 05/09/17 at 14:00 Meropenem/Sodium Chloride 50 ml @ 100 mls/hr Q12 IVPB Last administered on 20:28; Admin Dose 100 MLS/HR; Start 05/09/17 at 15:00 Vancomycin HCl 250 ml @ 125 mls/hr Q48H IVPB Last administered on 05/11/17 16 :42; Admin Dose 125 MLS/HR; Start 05/11/17 at 16:00 Sodium Chloride 1,000 ml @ 0 mls/hr Q0M IV ; Start 05/09/17 at 18:18 Sodium Chloride 1,000 ml @ 100 mls/hr Q10H IV Last administered on 05/12/17 21:05; Admin Dose 100 MLS/HR; Start 05/10/17 at 07:00 Norepinephrine 16 mg/Dextrose 500 ml @ 1.87 mls/hr TITRATE IV ; Start 05/10/17 at 14:00 Dopamine HCl/ Dextrose 250 ml @ 6.848 mls/ hr TITRATE IV Last administered on 05/11/17 18:17; Admin Dose 10.271 MLS/HR; Start 05/10/17 at 18:30 Diagnostic Test (Pha) (Accu-Chek) 1 ea 02 XX ; Start 05/12/17 at 02:00 Insulin Aspart (Novolog Insulin Pen) NOVOLOG *MILD* ALGORI... Q4 SC ; Start at 09:00 Miscellaneous Information 1 ea NOTE XX ; Start 05/11/17 at 08:00 Glucose (Glutose) 15 gm Q15M PRN PO DECREASED GLUCOSE; Start 05/11/17 at 08:00 Glucose (Glutose) 22.5 gm Q15M PRN PO DECREASED GLUCOSE; Start 05/11/17 at 08: 00 Dextrose (D50w Syringe) 25 ml Q15M PRN IV DECREASED GLUCOSE; Start 05/11/17 at 08:00 Dextrose (D50w Syringe) 50 ml Q15M PRN IV DECREASED GLUCOSE; Start 05/11/17 at 08:00 Glucagon (Glucagen) 1 mg Q15M PRN IM DECREASED GLUCOSE; Start 05/11/17 at 08:00 Glucose (Glutose) 15 gm Q15M PRN BUCCAL DECREASED GLUCOSE; Start 05/11/17 at 08 :00 Epoetin Vasyl (Epogen (Esrd)) 10,000 units MoWeFr@17 SC ; Start 05/13/17 at 17:00 Miscellaneous Information (*Rx Drug Level Order Reminder*) VANCOMYCIN TROUGH AT 1500 ONCE ONCE XX ; Start 05/13/17 at 15:00; Stop 05/13/17 at 15:01 JOCELYN FINE MD May 12, 2017 23:44
[2017-05-13] VITALS (84 sets, daily range): BP systolic 67–128; BP diastolic 23–83; PULSE 75–94; RESP 12–19
[2017-05-13] MEDS: INSULIN ASPART [NOVOLOG] 3 ML PEN SC SCH ×6 (01:00→21:00)
[2017-05-13] MEDS: ACCU-CHEK XX SCH (01:57)
[2017-05-13] MEDS: METOPROLOL 25 MG TAB GTB SCH ×2 (04:47→16:26)
[2017-05-13] MEDS: DOPamine-D5W 1.6 MG/ML 250 ML IV SCH ×2 (04:55→17:34)
[2017-05-13 05:34] LABS: ABNORMAL IP MESSAGE 1; EOSINOPHILS # 0.3 10^3/ul (0.0-0.5); EOSINOPHILS % 9.4 % (0.0-7.0); HEMATOCRIT 26.6 % (37.0-47.0); LYMPHOCYTES # 0.5 10^3/ul (0.8-2.9); LYMPHOCYTES % 15.8 % (15.0-51.0); MEAN CORPUSCULAR HEMOGLOBIN 28.2 pg (29.0-33.0); MEAN CORPUSCULAR HGB CONC 30.1 g/dl (32.0-37.0); MEAN CORPUSCULAR VOLUME 93.7 fl (82.0-101.0); MEAN PLATELET VOLUME 10.9 fl (7.4-10.4); MONOCYTE # 0.2 10^3/ul (0.3-0.9); MONOCYTES % 7.1 % (0.0-11.0); NEUTROPHIL # 2.1 10^3/ul (1.6-7.5); NEUTROPHILS % 67.4 % (39.0-77.0); PLATELET COUNT 77 10^3/UL (140-415); RED BLOOD COUNT 2.84 10^6/ul (4.20-5.40); RED CELL DISTRIBUTION WIDTH 19.1 % (11.5-14.5); WHITE BLOOD COUNT 3.1 10^3/ul (4.8-10.8)
[2017-05-13 06:14] LABS: CALCIUM 8.4 mg/dl (8.4-10.2); CREATININE 2.61 mg/dl (0.44-1.00); MAGNESIUM 1.9 mg/dl (1.7-2.5); PHOSPHORUS 6.1 mg/dl (2.5-4.9); POTASSIUM 3.3 mmol/L (3.5-5.1)
[2017-05-13 06:18] LABS: POSITIVE DIFF @See below
[2017-05-13] MEDS: CITRIC ACID/NA CITRATE 30 ML CUP PO SCH ×2 (08:25→20:31)
[2017-05-13] MEDS: CLOPIDOGREL 75 MG TAB GTB SCH (08:25)
[2017-05-13] MEDS: FERROUS SULFATE (EC) 325 MG TAB PO SCH ×2 (08:25→21:00)
[2017-05-13] MEDS: PRAMIPEXOLE 0.25 MG TAB GTB SCH (08:25)
[2017-05-13] MEDS: MULTIVIT/CA CARB/B CMPLX/FA TAB GTB SCH (08:25)
[2017-05-13] MEDS: MEMANTINE 5 MG TAB GTB SCH (08:25)
[2017-05-13] MEDS: FOLIC ACID 1 MG TAB GTB SCH (08:25)
[2017-05-13] MEDS: CARBIDOPA/LEVODOPA (25/100) TAB GTB SCH ×3 (08:25→20:31)
[2017-05-13] MEDS: MUPIROCIN 2% 22 GM OINT TOP SCH (08:26)
[2017-05-13] MEDS: NYSTATIN 30 GM POWDER BTL TOP SCH (08:26)
[2017-05-13] MEDS: MEROPENEM 1 GM/50ML(PMX) 50 ML IVPB SCH ×2 (08:26→20:35)
--- NOTE | 2017-05-13 08:26 | PN ---
Date/Time of Note Date/Time of Note DATE: 05/13/17 TIME: 08:23 Assessment/Plan VTE Prophylaxis VTE Prophylaxis Intervention: other Lines/Catheters IV Catheter Type (from Nrs): Saline Lock Urinary Cath still in place: Yes Reason Cath still needed: other (indicate) Assessment/Plan Chief Complaint/Hosp Course 1. Septic shock Etiology likely multifactorial, pneumonia, cellulitis, wounds, Patient on pressor support, IV fluids, broad-spectrum antibiotics CT abdomen shows no acute intra-abdominal process Follow-up with infectious disease, monitor serial lactic acid levels dysphagia- g tube dislodged, Continue to monitor Follow-up with GI Patient continues to have leak around ostomy site general surgery was consulted and appreciate their help Acute hypoxemic respiratory failure status post trach Vent settings ABGs been reviewed Follow-up with pulmonary 3. Nonoliguric acute kidney injury on top of chronic kidney disease stage 4. Etiology hemodynamics, possible progression of disease Urinary output improved with diuretic challenge Continue to monitor closely No immediate need for renal replacement therapy at this time 4. Hypernatremia Continue hypotonic fluid 5. r/o scabies -treat with permethrin -id consult 6. chf -cont med/royce -f/u cardiology Intermittent diuresis in the setting of pressors Right large pleural effusion Consider thoracentesis Monitor closely on diuretics 8. Acute encephalopathy and advanced dementia. Etiology is toxic metabolic. Continue to monitor. 9. Mineral bone disorder. Continue to monitor calcium and phosphorus levels. 10. Anemia./Pancytopenia Will continue to monitor H and H levels. Continue Epogen. Monitor closely 11. Coronary artery disease. Continue medical management. 12. Diabetes. Continue Accu-Cheks and insulin sliding scale. 13. Decubitus wound. Continue wound care. Gastrointestinal and deep venous thrombosis prophylaxis. Continue proton pump inhibitor and heparin. Hypomagnesemia Replete magnesium sulfate as needed Problems: Subjective 24 Hr Interval Summary Free Text/Dictation Patient seen and examined Remains critically on pressor support Patient had G-tube exchange however remains leakage around ostomy site General surgery was consulted by GI request Exam/Review of Systems Vital Signs Vitals Vital Signs Date Time Temp Pulse Resp B/P Pulse Ox O2 Delivery O2 Flow Rate FiO2 05/13/17 07:10 80 13 100 30 05/13/17 06:15 94/43 05/13/17 06:00 Mechanical Ventilator 05/13/17 04:00 98.1 05/09/17 15:00 5.0 Intake and Output 05/12/17 05/12/17 05/13/17 15:00 23:00 07:00 Intake Total 882.984 ml 1156.476 ml 819 ml Output Total 815 ml 415 ml 280 ml Balance 67.984 ml 741.476 ml 539 ml Exam HEENT: Head is normocephalic, NECK: Supple. HEART: Irregular LUNGS: Show diminished breath sounds at base. ABDOMEN: Soft, nontender to palpation without rebound or guarding. Positive G- tube with noted leak around ostomy site EXTREMITIES: Negative for clubbing, cyanosis. Positive edema/anasarca DERMATOLOGIC: No rashes. MUSCULOSKELETAL: No joint effusions, NEUROLOGIC: No change in exam Results Result Diagram: 05/13/17 0500 05/13/17 0500 Results 24 hrs Laboratory Tests Test 05/12/17 09:18 05/12/17 14:41 05/12/17 17:57 05/12/17 20:35 Bedside Glucose 81 85 122 114 Test 05/13/17 01:54 05/13/17 04:54 05/13/17 05:00 Bedside Glucose 91 99 White Blood Count 3.1 #L Red Blood Count 2.84 L Hemoglobin 8.0 L Hematocrit 26.6 L Mean Corpuscular Volume 93.7 Mean Corpuscular Hemoglobin 28.2 L Mean Corpuscular Hemoglobin Concent 30.1 L Red Cell Distribution Width 19.1 H Platelet Count 77 L Mean Platelet Volume 10.9 H Neutrophils % 67.4 Lymphocytes % 15.8 Monocytes % 7.1 Eosinophils % 9.4 H Basophils % 0.0 Nucleated Red Blood Cells % 0.0 Neutrophils # 2.1 Lymphocytes # 0.5 L Monocytes # 0.2 L Eosinophils # 0.3 Basophils # 0.0 Nucleated Red Blood Cells # 0.0 Sodium Level 142 Potassium Level 3.3 L Chloride Level 107 Carbon Dioxide Level 21 Anion Gap 17 H Blood Urea Nitrogen 63 H Creatinine 2.61 H Glucose Level 89 Calcium Level 8.4 Phosphorus Level 6.1 H Magnesium Level 1.9 Medications Medications Current Medications Atorvastatin Calcium (Lipitor) 10 mg QHS GTB Last administered on 05/12/17t 20: 28; Admin Dose 10 MG; Start 05/06/17 at 21:00 Bisacodyl (Dulcolax Supp) 10 mg Q48H NM Last administered on 05/12/17 17:57; Admin Dose 10 MG; Start 05/06/17 at 17:00 Carbidopa/Levodopa (Sinemet (25/ 100)) 1 tab TID GTB Last administered on 20:28; Admin Dose 1 TAB; Start 05/06/17 at 21:00 Clopidogrel Bisulfate (plaVIX) 75 mg DAILY GTB ; Start 05/07/17 at 09:00 Donepezil HCl (Aricept) 10 mg QHS GTB Last administered on 05/12/17 20:28; Admin Dose 10 MG; Start 05/06/17 at 21:00 Ferrous Sulfate (Ferrous Sulfate (Ec)) 325 mg BID PO Last administered on 20:28; Admin Dose 325 MG; Start 05/06/17 at 21:00 Folic Acid (Folic Acid) 1 mg DAILY GTB ; Start 05/07/17 at 09:00 Lactobacillus Acidophilus/ Rhamnosus (Culturelle) 1 cap QHS GTB Last administered on 05/12/17 20:28; Admin Dose 1 CAP; Start 05/06/17 at 21:00 Magnesium Hydroxide (Milk Of Mag) 30 ml Q24H GTB Last administered on 17:57; Admin Dose 30 ML; Start 05/06/17 at 17:00 Memantine (Namenda) 5 mg QAM GTB ; Start 05/07/17 at 09:00 Metoprolol Tartrate (Lopressor) 25 mg Q12H GTB ; Start 05/06/17 at 17:00 Multivit/Ca Carb/ B Cmplx/FA/Prenat (Radhika-John) 1 tab DAILY GTB Last administered on 05/12/17 09:15; Admin Dose 1 TAB; Start 05/07/17 at 09:00 Pramipexole (Mirapex) 0.5 mg DAILY GTB ; Start 05/07/17 at 09:00 Sodium Biphosphate/ Sodium Phosphate (Fleet Enema Pediatric) 118 ml Q72H PRN NM CONSTIPATION; Start 05/06/17 at 17:00 Citric Acid/ Sodium Citrate (Bicitra) 30 ml BID PO Last administered on 20:28; Admin Dose 30 ML; Start 05/06/17 at 21:00 Heparin Sodium (Porcine) (Heparin (5000 Units/0.5 ml)) 5,000 unit BID SC Last administered on 05/12/17 20:33; Admin Dose 5,000 UNIT; Start 05/06/17 at 21:00 Nystatin (Nystatin Powder) 1 applic BID TOP Last administered on 05/12/17 20: 39; Admin Dose 1 APPLIC; Start 05/09/17 at 21:00 Mupirocin (Bactroban) 1 applic BID TOP Last administered on 05/12/17 20:39; Admin Dose 1 APPLIC; Start 05/09/17 at 12:30 Collagenase (Santyl) 1 applic DAILY TOP Last administered on 05/12/17 18:55; Admin Dose 1 APPLIC; Start 05/09/17 at 15:00 Collagenase 1 applic 1 applic PRN PRN TOP WOUND CARE; Start 05/09/17 at 14:00 Meropenem/Sodium Chloride 50 ml @ 100 mls/hr Q12 IVPB Last administered on 20:28; Admin Dose 100 MLS/HR; Start 05/09/17 at 15:00 Vancomycin HCl 250 ml @ 125 mls/hr Q48H IVPB Last administered on 05/11/17 16 :42; Admin Dose 125 MLS/HR; Start 05/11/17 at 16:00 Sodium Chloride 1,000 ml @ 0 mls/hr Q0M IV ; Start 05/09/17 at 18:18 Sodium Chloride 1,000 ml @ 100 mls/hr Q10H IV Last administered on 05/12/17 21:05; Admin Dose 100 MLS/HR; Start 05/10/17 at 07:00 Norepinephrine 16 mg/Dextrose 500 ml @ 1.87 mls/hr TITRATE IV ; Start 05/10/17 at 14:00 Dopamine HCl/ Dextrose 250 ml @ 6.848 mls/ hr TITRATE IV Last administered on 05/13/17 04:55; Admin Dose 17.119 MLS/HR; Start 05/10/17 at 18:30 Diagnostic Test (Pha) (Accu-Chek) 1 ea 02 XX ; Start 05/12/17 at 02:00 Insulin Aspart (Novolog Insulin Pen) NOVOLOG *MILD* ALGORI... Q4 SC ; Start at 09:00 Miscellaneous Information 1 ea NOTE XX ; Start 05/11/17 at 08:00 Glucose (Glutose) 15 gm Q15M PRN PO DECREASED GLUCOSE; Start 05/11/17 at 08:00 Glucose (Glutose) 22.5 gm Q15M PRN PO DECREASED GLUCOSE; Start 05/11/17 at 08: 00 Dextrose (D50w Syringe) 25 ml Q15M PRN IV DECREASED GLUCOSE; Start 05/11/17 at 08:00 Dextrose (D50w Syringe) 50 ml Q15M PRN IV DECREASED GLUCOSE; Start 05/11/17 at 08:00 Glucagon (Glucagen) 1 mg Q15M PRN IM DECREASED GLUCOSE; Start 05/11/17 at 08:00 Glucose (Glutose) 15 gm Q15M PRN BUCCAL DECREASED GLUCOSE; Start 05/11/17 at 08 :00 Epoetin Vasyl (Epogen (Esrd)) 10,000 units MoWeFr@17 SC ; Start 05/13/17 at 17:00 Miscellaneous Information (*Rx Drug Level Order Reminder*) VANCOMYCIN TROUGH AT 1500 ONCE ONCE XX ; Start 05/13/17 at 15:00; Stop 05/13/17 at 15:01 OSMAR MONTAGUE DO May 13, 2017 08:26
[2017-05-13] MEDS: COLLAGENASE 30 GM TUBE TOP SCH (08:27)
[2017-05-13] MEDS ORDERED: POTASSIUM CHLORIDE 250 ML IVPB ONE (08:30)
[2017-05-13] MEDS: HEPARIN 5,000 UNIT/0.5 ML VIAL SC SCH ×2 (08:37→20:33)
--- NOTE | 2017-05-13 08:49 | PN ---
Date/Time of Note Date/Time of Note DATE: 05/13/17 TIME: 08:17 Assessment/Plan Lines/Catheters IV [facility] Type (from [facility] Saline Lock Collazo in Place (from Nrs): Yes Assessment/Plan Chief Complaint/Hosp Course 1. G-tube dislodgement: replaced with gjtube by GI, copious amount of coffee ground drainage peristomal -surgical placement of jtube 2. Septic shock: multifactorial: 2/2: pneumonia + cellulitis + wounds; on pressors -abx -supportive 3. Respiratory failure with trach: PNA wtih pulm edema -pulmonary toilet -abx -supportive 4.STARLA with CKD; +urine output -judicious fluids -renally dose meds -per nephrology 5. Leukopenia:2/2 #2 -support -as above 4. Hypernatremia Continue hypotonic fluid 5. Normocytic anemia: coffee ground drainage peristoma -monitor and transfuse as needed -continue Epogen 6. Hypokalemia -optimize lytes 7. CHF -supportive -f/u cardiology 8. Diabetes: well controlled 9. Acute encephalopathy with history of advanced dementia. -supportive 10. Coronary artery disease. 11. Decubitus wound. Continue wound care. 12. r/o scabies: treated prophylactically Problems: Subjective 24 Hr Interval Summary Patient nonverbal, awake, no distress noted. Non verbal indicators of pain not present. Comfortable on ventcopious amount of coffee ground drainage noted around gtube. No sz, fainting, sob, cough, v/d, fevers. Exam/Review of Systems Vital Signs Vitals Vital Signs Date Time Temp Pulse Resp B/P Pulse Ox O2 Delivery O2 Flow Rate FiO2 05/14/17 12:00 78 05/14/17 11:00 13 100 30 05/14/17 09:45 97/35 05/14/17 09:00 Mechanical Ventilator 05/14/17 08:00 97.6 Intake and Output 05/13/17 05/13/17 05/14/17 15:00 23:00 07:00 Intake Total 1024 ml 872.97 ml 814.64 ml Output Total 1300 ml 560 ml Balance 1024 ml -427.03 ml 254.64 ml Exam Free Text/Dictation Constitutional: alert, non-verbal, No oriented Psych: confusion Head: atraumatic, normocephalic Eyes: PERRL, nl sclera ENMT: mucosa pink and moist Neck: non-tender, other (trach), supple Respiratory: congested cough Cardiovascular: edema Gastrointestinal: distended (mod), other (peristomal leak: coffee ground drainage improved), soft, tender Musculoskeletal: No muscle tone Extremities: edema Neurological: No nl mental status, No nl speech Skin: other (abdominal/peristomal/breast fold redness, moist; ) Results Result Diagram: 05/14/17 0613 05/14/17 0613 SHADI CALDERON NP May 13, 2017 08:27
[2017-05-13] MEDS: SOD CHLORIDE 0.45% 1,000 ML IV SCH ×2 (09:12→20:37)
--- NOTE | 2017-05-13 10:41 | CONS ---
Date/Time of Note Date/Time of Note DATE: 05/13/17 TIME: 10:39 Assessment/Plan Assessment/Plan Chief Complaint/Hosp Course No events overnight patient is lying comfortably in bed afebrile, on dopamine drip at 4 mcg per kilo per minute No acute changes per report remains on dopamine drip status post PEG yesterday with extensive draining of gastric contents around the site severe excoriation of the skin Temperature 97.8 pulse 78 respirations 14 blood pressure 94/43 saturation 100 on vent WBC 3.1 H&H 8 and 26.6 platelets 77 neutrophils 67.4 BN 63 creatinine 2.61 Microbiology: All cultures remain negative CT of the abdomen revealed induration of the skin and thickening of the subcutaneous fat along the gastrostomy tract larger right pleural effusion 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 Septic shock 2. Possible healthcare associated pneumonia 3. G-tube malfunction with surrounding cellulitis 4. Rash, no scabies per skin scraping 5. Chronic respiratory failure 6. Multiple chronic decubitus 7. 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 UTI as per urinalysis Plan: Remains hemodynamically unstable, continue antibiotics, vent support per pulmonary, local wound care around G-tube site, follow GI recommendations Discussed with RN Problems: Consultation Date/Type/Reason Admit Date/Time May 06, 2017 at 16:34 Initial Consult Date 05/09/17 Type of Consultation: id Exam/Review of Systems Vital Signs Vitals Vital Signs Date Time Temp Pulse Resp B/P Pulse Ox O2 Delivery O2 Flow Rate FiO2 05/13/17 10:00 78 14 94/43 100 Mechanical Ventilator 05/13/17 09:00 30 05/13/17 08:00 97.8 05/09/17 15:00 5.0 Intake and Output 05/12/17 05/12/17 05/13/17 15:00 23:00 07:00 Intake Total 882.984 ml 1156.476 ml 819 ml Output Total 815 ml 415 ml 280 ml Balance 67.984 ml 741.476 ml 539 ml Results Result Diagram: 05/13/17 0500 05/13/17 0500 Results 24 hrs Laboratory Tests Test 05/12/17 14:41 05/12/17 17:57 05/12/17 20:35 05/13/17 01:54 Bedside Glucose 85 122 114 91 Test 05/13/17 04:54 05/13/17 05:00 05/13/17 08:31 Bedside Glucose 99 88 White Blood Count 3.1 #L Red Blood Count 2.84 L Hemoglobin 8.0 L Hematocrit 26.6 L Mean Corpuscular Volume 93.7 Mean Corpuscular Hemoglobin 28.2 L Mean Corpuscular Hemoglobin Concent 30.1 L Red Cell Distribution Width 19.1 H Platelet Count 77 L Mean Platelet Volume 10.9 H Neutrophils % 67.4 Lymphocytes % 15.8 Monocytes % 7.1 Eosinophils % 9.4 H Basophils % 0.0 Nucleated Red Blood Cells % 0.0 Neutrophils # 2.1 Lymphocytes # 0.5 L Monocytes # 0.2 L Eosinophils # 0.3 Basophils # 0.0 Nucleated Red Blood Cells # 0.0 Sodium Level 142 Potassium Level 3.3 L Chloride Level 107 Carbon Dioxide Level 21 Anion Gap 17 H Blood Urea Nitrogen 63 H Creatinine 2.61 H Glucose Level 89 Calcium Level 8.4 Phosphorus Level 6.1 H Magnesium Level 1.9 Medications Medications Current Medications Atorvastatin Calcium (Lipitor) 10 mg QHS GTB Last administered on 05/12/17 20: 28; Admin Dose 10 MG; Start 05/06/17 at 21:00 Bisacodyl (Dulcolax Supp) 10 mg Q48H NE Last administered on 05/12/17 17:57; Admin Dose 10 MG; Start 05/06/17 at 17:00 Carbidopa/Levodopa (Sinemet (25/ 100)) 1 tab TID GTB Last administered on 08:25; Admin Dose 1 TAB; Start 05/06/17 at 21:00 Clopidogrel Bisulfate (plaVIX) 75 mg DAILY GTB Last administered on 05/13/17 08:25; Admin Dose 75 MG; Start 05/07/17 at 09:00 Donepezil HCl (Aricept) 10 mg QHS GTB Last administered on 05/12/17 20:28; Admin Dose 10 MG; Start 05/06/17 at 21:00 Ferrous Sulfate (Ferrous Sulfate (Ec)) 325 mg BID PO Last administered on 08:25; Admin Dose 325 MG; Start 05/06/17 at 21:00 Folic Acid (Folic Acid) 1 mg DAILY GTB Last administered on 05/13/17 08:25; Admin Dose 1 MG; Start 05/07/17 at 09:00 Lactobacillus Acidophilus/ Rhamnosus (Culturelle) 1 cap QHS GTB Last administered on 05/12/17 20:28; Admin Dose 1 CAP; Start 05/06/17 at 21:00 Magnesium Hydroxide (Milk Of Mag) 30 ml Q24H GTB Last administered on 17:57; Admin Dose 30 ML; Start 05/06/17 at 17:00 Memantine (Namenda) 5 mg QAM GTB Last administered on 05/13/17 08:25; Admin Dose 5 MG; Start 05/07/17 at 09:00 Metoprolol Tartrate (Lopressor) 25 mg Q12H GTB ; Start 05/06/17 at 17:00 Multivit/Ca Carb/ B Cmplx/FA/Prenat (Radhika-John) 1 tab DAILY GTB Last administered on 05/13/17 08:25; Admin Dose 1 TAB; Start 05/07/17 at 09:00 Pramipexole (Mirapex) 0.5 mg DAILY GTB Last administered on 05/13/17 08:25; Admin Dose 0.5 MG; Start 05/07/17 at 09:00 Sodium Biphosphate/ Sodium Phosphate (Fleet Enema Pediatric) 118 ml Q72H PRN [place] CONSTIPATION; Start 05/06/17 at 17:00 Citric Acid/ Sodium Citrate (Bicitra) 30 ml BID PO Last administered on 08:25; Admin Dose 30 ML; Start 05/06/17 at 21:00 Heparin Sodium (Porcine) (Heparin (5000 Units/0.5 ml)) 5,000 unit BID SC Last administered on 7/23/17at 20:33; Admin Dose 5,000 UNIT; Start 05/06/17 at 21:00 Nystatin (Nystatin Powder) 1 applic BID TOP Last administered on 05/13/17 08: 26; Admin Dose 1 APPLIC; Start 05/09/17 at 21:00 Mupirocin (Bactroban) 1 applic BID TOP Last administered on 05/13/17 08:26; Admin Dose 1 APPLIC; Start 05/09/17 at 12:30 Collagenase (Santyl) 1 applic DAILY TOP Last administered on 05/13/17 08:27; Admin Dose 1 APPLIC; Start 05/09/17 at 15:00 Collagenase 1 applic 1 applic PRN PRN TOP WOUND CARE; Start 05/09/17 at 14:00 Meropenem/Sodium Chloride 50 ml @ 100 mls/hr Q12 IVPB Last administered on 08:26; Admin Dose 100 MLS/HR; Start 05/09/17 at 15:00 Vancomycin HCl 250 ml @ 125 mls/hr Q48H IVPB Last administered on 05/11/17 16 :42; Admin Dose 125 MLS/HR; Start 05/11/17 at 16:00 Sodium Chloride 1,000 ml @ 0 mls/hr Q0M IV ; Start 05/09/17 at 18:18 Sodium Chloride 1,000 ml @ 100 mls/hr Q10H IV Last administered on 05/13/17 09:12; Admin Dose 100 MLS/HR; Start 05/10/17 at 07:00 Norepinephrine 16 mg/Dextrose 500 ml @ 1.87 mls/hr TITRATE IV ; Start 05/10/17 at 14:00 Dopamine HCl/ Dextrose 250 ml @ 6.848 mls/ hr TITRATE IV Last administered on 05/13/17 04:55; Admin Dose 17.119 MLS/HR; Start 05/10/17 at 18:30 Diagnostic Test (Pha) (Accu-Chek) 1 ea 02 XX ; Start 05/12/17 at 02:00 Insulin Aspart (Novolog Insulin Pen) NOVOLOG *MILD* ALGORI... Q4 SC ; Start at 09:00 Miscellaneous Information 1 ea NOTE XX ; Start 05/11/17 at 08:00 Glucose (Glutose) 15 gm Q15M PRN PO DECREASED GLUCOSE; Start 05/11/17 at 08:00 Glucose (Glutose) 22.5 gm Q15M PRN PO DECREASED GLUCOSE; Start 05/11/17 at 08: 00 Dextrose (D50w Syringe) 25 ml Q15M PRN IV DECREASED GLUCOSE; Start 05/11/17 at 08:00 Dextrose (D50w Syringe) 50 ml Q15M PRN IV DECREASED GLUCOSE; Start 05/11/17 at 08:00 Glucagon (Glucagen) 1 mg Q15M PRN IM DECREASED GLUCOSE; Start 05/11/17 at 08:00 Glucose (Glutose) 15 gm Q15M PRN BUCCAL DECREASED GLUCOSE; Start 05/11/17 at 08 :00 Epoetin Vasyl (Epogen (Esrd)) 10,000 units MoWeFr@17 SC ; Start 05/13/17 at 17:00 Miscellaneous Information VANCOMYCIN TROUGH AT 1500 ONCE ONCE XX ; Start 05/13/17 at 15:00; Stop 05/13/17 at 15:01 Potassium Chloride (KCl 40 MEQ/250 ML NS) 250 ml @ 62.5 mls/hr ONCE ONCE IVPB Last administered on 05/13/17t 09:51; Admin Dose 62.5 MLS/HR; Start 05/13/17 at 08:30; Stop 05/13/17 at 12:29 DOROTHY CORONADO NP May 13, 2017 10:40
--- NOTE | 2017-05-13 11:17 | CONS ---
Date/Time of Note Date/Time of Note DATE: 05/13/17 TIME: 11:13 Consult Date/Type/Reason Admit Date/Time May 06, 2017 at 16:34 Initial Consult Date 05/10/17 Type of Consultation: Pulmonary Subjective Continues mechanical ventilation. Currently somnolent. Discussed with staff gastric acid contents of corrosive to his skin. Objective Vital Signs Date Time Temp Pulse Resp B/P Pulse Ox O2 Delivery O2 Flow Rate FiO2 05/13/17 10:00 78 14 94/43 100 Mechanical Ventilator 05/13/17 09:00 30 05/13/17 08:00 97.8 05/09/17 15:00 5.0 Intake and Output 05/12/17 05/12/17 05/13/17 14:59 22:59 06:59 Intake Total 745.865 ml 1146.595 ml 966 ml Output Total 805 ml 425 ml 320 ml Balance -59.135 ml 721.595 ml 646 ml Exam PHYSICAL EXAMINATION GENERAL: Elderly lady on mechanical ventilation via tracheostomy somnolent VITAL SIGNS: see below. HEENT: Pupils equal, round, and reactive to light. Tracheostomy site clean and intact. CARDIAC: S1, S2, 1/6 systolic ejection murmur CHEST: Diminished air entry bilaterally. ABDOMEN: Diminished bowel sounds. EXTREMITIES: No cyanosis, clubbing edema +1 NEUROLOGIC: Generalized weakness Results/Medications Result Diagram: 05/13/17 0500 05/13/17 0500 Results 24 hrs Laboratory Tests Test 05/12/17 14:41 05/12/17 17:57 05/12/17 20:35 05/13/17 01:54 Bedside Glucose 85 122 114 91 Test 05/13/17 04:54 05/13/17 05:00 05/13/17 08:31 Bedside Glucose 99 88 White Blood Count 3.1 #L Red Blood Count 2.84 L Hemoglobin 8.0 L Hematocrit 26.6 L Mean Corpuscular Volume 93.7 Mean Corpuscular Hemoglobin 28.2 L Mean Corpuscular Hemoglobin Concent 30.1 L Red Cell Distribution Width 19.1 H Platelet Count 77 L Mean Platelet Volume 10.9 H Neutrophils % 67.4 Lymphocytes % 15.8 Monocytes % 7.1 Eosinophils % 9.4 H Basophils % 0.0 Nucleated Red Blood Cells % 0.0 Neutrophils # 2.1 Lymphocytes # 0.5 L Monocytes # 0.2 L Eosinophils # 0.3 Basophils # 0.0 Nucleated Red Blood Cells # 0.0 Sodium Level 142 Potassium Level 3.3 L Chloride Level 107 Carbon Dioxide Level 21 Anion Gap 17 H Blood Urea Nitrogen 63 H Creatinine 2.61 H Glucose Level 89 Calcium Level 8.4 Phosphorus Level 6.1 H Magnesium Level 1.9 Medications Current Medications Atorvastatin Calcium (Lipitor) 10 mg QHS GTB Last administered on 05/12/17 20: 28; Admin Dose 10 MG; Start 05/06/17 at 21:00 Bisacodyl (Dulcolax Supp) 10 mg Q48H DE Last administered on 05/12/17 17:57; Admin Dose 10 MG; Start 05/06/17 at 17:00 Carbidopa/Levodopa (Sinemet (/ )) 1 tab TID GTB Last administered on 08:25; Admin Dose 1 TAB; Start 05/06/17 at 21:00 Clopidogrel Bisulfate (plaVIX) 75 mg DAILY GTB Last administered on 05/13/17 08:25; Admin Dose 75 MG; Start 05/07/17 at 09:00 Donepezil HCl (Aricept) 10 mg QHS GTB Last administered on 05/12/17 20:28; Admin Dose 10 MG; Start 05/06/17 at 21:00 Ferrous Sulfate (Ferrous Sulfate (Ec)) 325 mg BID PO Last administered on 08:25; Admin Dose 325 MG; Start 05/06/17 at 21:00 Folic Acid (Folic Acid) 1 mg DAILY GTB Last administered on 05/13/17 08:25; Admin Dose 1 MG; Start 05/07/17 at 09:00 Lactobacillus Acidophilus/ Rhamnosus (Culturelle) 1 cap QHS GTB Last administered on 05/12/17 20:28; Admin Dose 1 CAP; Start 05/06/17 at 21:00 Magnesium Hydroxide (Milk Of Mag) 30 ml Q24H GTB Last administered on 17:57; Admin Dose 30 ML; Start 05/06/17 at 17:00 Memantine (Namenda) 5 mg QAM GTB Last administered on 05/13/17 08:25; Admin Dose 5 MG; Start 05/07/17 at 09:00 Metoprolol Tartrate (Lopressor) 25 mg Q12H GTB ; Start 05/06/17 at 17:00 Multivit/Ca Carb/ B Cmplx/FA/Prenat (Radhika-John) 1 tab DAILY GTB Last administered on 05/13/17 08:25; Admin Dose 1 TAB; Start 05/07/17 at 09:00 Pramipexole (Mirapex) 0.5 mg DAILY GTB Last administered on 05/13/17 08:25; Admin Dose 0.5 MG; Start 05/07/17 at 09:00 Sodium Biphosphate/ Sodium Phosphate (Fleet Enema Pediatric) 118 ml Q72H PRN [place] CONSTIPATION; Start 05/06/17 at 17:00 Citric Acid/ Sodium Citrate (Bicitra) 30 ml BID PO Last administered on 08:25; Admin Dose 30 ML; Start 05/06/17 at 21:00 Heparin Sodium (Porcine) (Heparin (5000 Units/0.5 ml)) 5,000 unit BID SC Last administered on 05/12/17 20:33; Admin Dose 5,000 UNIT; Start 05/06/17 at 21:00 Nystatin (Nystatin Powder) 1 applic BID TOP Last administered on 05/13/17 08: 26; Admin Dose 1 APPLIC; Start 05/09/17 at 21:00 Mupirocin (Bactroban) 1 applic BID TOP Last administered on 05/13/17 08:26; Admin Dose 1 APPLIC; Start 05/09/17 at 12:30 Collagenase (Santyl) 1 applic DAILY TOP Last administered on 05/13/17 08:27; Admin Dose 1 APPLIC; Start 05/09/17 at 15:00 Collagenase 1 applic 1 applic PRN PRN TOP WOUND CARE; Start 05/09/17 at 14:00 Meropenem/Sodium Chloride 50 ml @ 100 mls/hr Q12 IVPB Last administered on 08:26; Admin Dose 100 MLS/HR; Start 05/09/17 at 15:00 Vancomycin HCl 250 ml @ 125 mls/hr Q48H IVPB Last administered on 05/11/17 16 :42; Admin Dose 125 MLS/HR; Start 05/11/17 at 16:00 Sodium Chloride 1,000 ml @ 0 mls/hr Q0M IV ; Start 05/09/17 at 18:18 Sodium Chloride 1,000 ml @ 100 mls/hr Q10H IV Last administered on 05/13/17 09:12; Admin Dose 100 MLS/HR; Start 05/10/17 at 07:00 Norepinephrine 16 mg/Dextrose 500 ml @ 1.87 mls/hr TITRATE IV ; Start 05/10/17 at 14:00 Dopamine HCl/ Dextrose 250 ml @ 6.848 mls/ hr TITRATE IV Last administered on 05/13/17 04:55; Admin Dose 17.119 MLS/HR; Start 05/10/17 at 18:30 Diagnostic Test (Pha) (Accu-Chek) 1 ea 02 XX ; Start 05/12/17 at 02:00 Insulin Aspart (Novolog Insulin Pen) NOVOLOG *MILD* ALGORI... Q4 SC ; Start at 09:00 Miscellaneous Information 1 ea NOTE XX ; Start 05/11/17 at 08:00 Glucose (Glutose) 15 gm Q15M PRN PO DECREASED GLUCOSE; Start 05/11/17 at 08:00 Glucose (Glutose) 22.5 gm Q15M PRN PO DECREASED GLUCOSE; Start 05/11/17 at 08: 00 Dextrose (D50w Syringe) 25 ml Q15M PRN IV DECREASED GLUCOSE; Start 05/11/17 at 08:00 Dextrose (D50w Syringe) 50 ml Q15M PRN IV DECREASED GLUCOSE; Start 05/11/17 at 08:00 Glucagon (Glucagen) 1 mg Q15M PRN IM DECREASED GLUCOSE; Start 05/11/17 at 08:00 Glucose (Glutose) 15 gm Q15M PRN BUCCAL DECREASED GLUCOSE; Start 05/11/17 at 08 :00 Epoetin Vasyl (Epogen (Esrd)) 10,000 units MoWeFr@17 SC ; Start 05/13/17 at 17:00 Miscellaneous Information VANCOMYCIN TROUGH AT 1500 ONCE ONCE XX ; Start 05/13/17 at 15:00; Stop 05/13/17 at 15:01 Potassium Chloride (KCl 40 MEQ/250 ML NS) 250 ml @ 62.5 mls/hr ONCE ONCE IVPB Last administered on 05/13/17 09:51; Admin Dose 62.5 MLS/HR; Start 05/13/17 at 08:30; Stop 05/13/17 at 12:29 Assessment/Plan Chief Complaint/Hosp Course Assessment 1. Chronic encephalopathy unchanged 2. GJ tube site leak with erosion of surrounding skin. 3.Anemia of chronic disease 4. Chronic kidney disease 5. Vent dependent respiratory failure Plan 1. Pending GI evaluation to replace G-tube 2. Continue mechanical ventilation pulmonary toilet 3. Continue wound care 4. Transfuse hemoglobin as needed Overall prognosis very poor consider palliative care consult Problems: JARED CLAIRE MD, [facility] May 13, 2017 11:17
--- NOTE | 2017-05-13 16:06 | CONS ---
Date/Time of Note Date/Time of Note DATE: 05/13/17 TIME: 16:05 Assessment/Plan Assessment/Plan Chief Complaint/Hosp Course This 69-year-old female with a history of CVA vent dependent respiratory failure , was brought to the emergency room for the dislodgment of the GJ tube. Patient is nonverbal and no information can be obtained. No GI bleeding no chest pain no shortness of breath. Problems: Additional Assessment/Plan Additional Assessment/Plan 1. Dislodged of the GJ tube accidentally 2. Vent dependent respiratory failure 3. Chronic encephalopathy 4. Renal failure 5. Peripheral vascular disease 6. Anemia 7. Hypertension patient is still on dopamine Plan GJ tube, could not be done. GI lab did not have GJ tube. Hospital did not have GJ tube I will bring it from other facility. Case discussed with Dr. Blackburn and told him to put a jejunostomy tube hospital does not have GJ tube and because of anatomy to be technically difficult to prevent the leakage around G-tube site Consultation Date/Type/Reason Admit Date/Time May 06, 2017 at 16:34 Type of Consultation: surgical 24 HR Interval Summary Subjective hx not possible: pt non-verbal Exam/Review of Systems Vital Signs Vitals Vital Signs Date Time Temp Pulse Resp B/P Pulse Ox O2 Delivery O2 Flow Rate FiO2 05/13/17 13:15 78 12 98/48 100 Mechanical Ventilator 05/13/17 13:00 30 05/13/17 12:00 97.8 05/09/17 15:00 5.0 Intake and Output 05/12/17 05/12/17 05/13/17 15:00 23:00 07:00 Intake Total 882.984 ml 1156.476 ml 919 ml Output Total 815 ml 415 ml 280 ml Balance 67.984 ml 741.476 ml 639 ml Exam Constitutional: alert, oriented, well developed Psych: nl mood/affect, no complaints Head: atraumatic, normocephalic Eyes: EOMI, PERRL, nl conjunctiva, nl lids, nl sclera ENMT: nl external ears & nose, nl lips & teeth, nl nasal mucosa & septum Neck: non-tender, supple Respiratory: clear to auscultation, normal air movement Cardiovascular: nl pulses, regular rate and rhythm Gastrointestinal: nl liver, spleen, non-tender, soft Musculoskeletal: nl extremities to inspection, nl gait and stance Extremities: normal pulses Neurological: [employer] II-XII intact, nl mental status, nl speech, nl strength Skin: nl turgor, No rash or lesions Lymph: nl lymph nodes Results Result Diagram: 05/13/17 0500 05/13/17 0500 Results 24 hrs Laboratory Tests Test 05/12/17 17:57 05/12/17 20:35 05/13/17 01:54 05/13/17 04:54 Bedside Glucose 122 114 91 99 Test 05/13/17 05:00 05/13/17 08:31 05/13/17 12:38 White Blood Count 3.1 #L Red Blood Count 2.84 L Hemoglobin 8.0 L Hematocrit 26.6 L Mean Corpuscular Volume 93.7 Mean Corpuscular Hemoglobin 28.2 L Mean Corpuscular Hemoglobin Concent 30.1 L Red Cell Distribution Width 19.1 H Platelet Count 77 L Mean Platelet Volume 10.9 H Neutrophils % 67.4 Lymphocytes % 15.8 Monocytes % 7.1 Eosinophils % 9.4 H Basophils % 0.0 Nucleated Red Blood Cells % 0.0 Neutrophils # 2.1 Lymphocytes # 0.5 L Monocytes # 0.2 L Eosinophils # 0.3 Basophils # 0.0 Nucleated Red Blood Cells # 0.0 Sodium Level 142 Potassium Level 3.3 L Chloride Level 107 Carbon Dioxide Level 21 Anion Gap 17 H Blood Urea Nitrogen 63 H Creatinine 2.61 H Glucose Level 89 Calcium Level 8.4 Phosphorus Level 6.1 H Magnesium Level 1.9 Bedside Glucose 88 84 Medications Medications Current Medications Atorvastatin Calcium (Lipitor) 10 mg QHS GTB Last administered on 05/12/17 20: 28; Admin Dose 10 MG; Start 05/06/17 at 21:00 Bisacodyl (Dulcolax Supp) 10 mg Q48H MA Last administered on 05/12/17 17:57; Admin Dose 10 MG; Start 05/06/17 at 17:00 Carbidopa/Levodopa (Sinemet (25/ 100)) 1 tab TID GTB Last administered on 08:25; Admin Dose 1 TAB; Start 05/06/17 at 21:00 Clopidogrel Bisulfate (plaVIX) 75 mg DAILY GTB Last administered on 05/13/17 08:25; Admin Dose 75 MG; Start 05/07/17 at 09:00 Donepezil HCl (Aricept) 10 mg QHS GTB Last administered on 05/12/17 20:28; Admin Dose 10 MG; Start 05/06/17 at 21:00 Ferrous Sulfate (Ferrous Sulfate (Ec)) 325 mg BID PO Last administered on 08:25; Admin Dose 325 MG; Start 05/06/17 at 21:00 Folic Acid (Folic Acid) 1 mg DAILY GTB Last administered on 05/13/17 08:25; Admin Dose 1 MG; Start 05/07/17 at 09:00 Lactobacillus Acidophilus/ Rhamnosus (Culturelle) 1 cap QHS GTB Last administered on 05/12/17 20:28; Admin Dose 1 CAP; Start 05/06/17 at 21:00 Magnesium Hydroxide (Milk Of Mag) 30 ml Q24H GTB Last administered on 17:57; Admin Dose 30 ML; Start 05/06/17 at 17:00 Memantine (Namenda) 5 mg QAM GTB Last administered on 05/13/17 08:25; Admin Dose 5 MG; Start 05/07/17 at 09:00 Metoprolol Tartrate (Lopressor) 25 mg Q12H GTB ; Start 05/06/17 at 17:00 Multivit/Ca Carb/ B Cmplx/FA/Prenat (Radhika-John) 1 tab DAILY GTB Last administered on 05/13/17 08:25; Admin Dose 1 TAB; Start 05/07/17 at 09:00 Pramipexole (Mirapex) 0.5 mg DAILY GTB Last administered on 05/13/17 08:25; Admin Dose 0.5 MG; Start 05/07/17 at 09:00 Sodium Biphosphate/ Sodium Phosphate (Fleet Enema Pediatric) 118 ml Q72H PRN [place] CONSTIPATION; Start 05/06/17 at 17:00 Citric Acid/ Sodium Citrate (Bicitra) 30 ml BID PO Last administered on 08:25; Admin Dose 30 ML; Start 05/06/17 at 21:00 Heparin Sodium (Porcine) (Heparin (5000 Units/0.5 ml)) 5,000 unit BID SC Last administered on 05/12/17 20:33; Admin Dose 5,000 UNIT; Start 05/06/17 at 21:00 Nystatin (Nystatin Powder) 1 applic BID TOP Last administered on 05/13/17 08: 26; Admin Dose 1 APPLIC; Start 05/09/17 at 21:00 Mupirocin (Bactroban) 1 applic BID TOP Last administered on 05/13/17 08:26; Admin Dose 1 APPLIC; Start 05/09/17 at 12:30 Collagenase (Santyl) 1 applic DAILY TOP Last administered on 05/13/17 08:27; Admin Dose 1 APPLIC; Start 05/09/17 at 15:00 Collagenase 1 applic 1 applic PRN PRN TOP WOUND CARE; Start 05/09/17 at 14:00 Meropenem/Sodium Chloride 50 ml @ 100 mls/hr Q12 IVPB Last administered on 08:26; Admin Dose 100 MLS/HR; Start 05/09/17 at 15:00 Vancomycin HCl 250 ml @ 125 mls/hr Q48H IVPB Last administered on 05/11/17 16 :42; Admin Dose 125 MLS/HR; Start 05/11/17 at 16:00 Sodium Chloride 1,000 ml @ 0 mls/hr Q0M IV ; Start 05/09/17 at 18:18 Sodium Chloride 1,000 ml @ 100 mls/hr Q10H IV Last administered on 05/13/17 09:12; Admin Dose 100 MLS/HR; Start 05/10/17 at 07:00 Norepinephrine 16 mg/Dextrose 500 ml @ 1.87 mls/hr TITRATE IV ; Start 05/10/17 at 14:00 Dopamine HCl/ Dextrose 250 ml @ 6.848 mls/ hr TITRATE IV Last administered on 05/13/17 04:55; Admin Dose 17.119 MLS/HR; Start 05/10/17 at 18:30 Diagnostic Test (Pha) (Accu-Chek) 1 ea 02 XX ; Start 05/12/17 at 02:00 Insulin Aspart (Novolog Insulin Pen) NOVOLOG *MILD* ALGORI... Q4 SC ; Start at 09:00 Miscellaneous Information 1 ea NOTE XX ; Start 05/11/17 at 08:00 Glucose (Glutose) 15 gm Q15M PRN PO DECREASED GLUCOSE; Start 05/11/17 at 08:00 Glucose (Glutose) 22.5 gm Q15M PRN PO DECREASED GLUCOSE; Start 05/11/17 at 08: 00 Dextrose (D50w Syringe) 25 ml Q15M PRN IV DECREASED GLUCOSE; Start 05/11/17 at 08:00 Dextrose (D50w Syringe) 50 ml Q15M PRN IV DECREASED GLUCOSE; Start 05/11/17 at 08:00 Glucagon (Glucagen) 1 mg Q15M PRN IM DECREASED GLUCOSE; Start 05/11/17 at 08:00 Glucose (Glutose) 15 gm Q15M PRN BUCCAL DECREASED GLUCOSE; Start 05/11/17 at 08 :00 Epoetin Vasyl (Epogen (Esrd)) 10,000 units MoWeFr@17 SC ; Start 05/13/17 at 17:00 SYLWIA SY MD May 13, 2017 16:06
[2017-05-13] MEDS: MAGNESIUM HYDROXIDE 30ML CUP GTB SCH (16:27)
[2017-05-13] MEDS: EPOETIN 10000 UNITS/1 ML INJ (ESRD) SC SCH (16:55)
--- NOTE | 2017-05-13 16:59 | PN ---
Date/Time of Note Date/Time of Note DATE: 05/13/17 TIME: 16:57 Assessment/Plan VTE Prophylaxis VTE Prophylaxis Intervention: other Lines/Catheters IV Catheter Type (from Nrs): Saline Lock Urinary Cath still in place: Yes Reason Cath still needed: other (indicate) Assessment/Plan Chief Complaint/Hosp Course 1. hypoxemic resp failure: s/p trach 2. Pafib; currently in NSR 3. hx HTN: now in shock and hypotensive. : STILL requires DOPAMINE DRIP 4. encephalopathy 5. renal failure: f/u with nephrology 6. dysphagia 7. G tube malfunction/ infection will cont dopamine drip. titrate off as tolerated. cont resp care nutritional support. ICU care as long as pt is on pressors correct lytes prn f/u renal fx. Problems: Subjective 24 Hr Interval Summary Free Text/Dictation Discussed with staff and rhythm was reviewed pt remains in NSR. NO AFIB seen NONVERBAL. pt is still ICU on dopamne drip and unable to wean off s/p PEG placement 05/12/17 again OBJECTIVE: General: no acute distress HEENT: NC/AT. NECK: NO JVD. no stridor. S/P trach on O2 CV: RRR. systolic murmur; no gallop or rubs. PULM: no wheezing anteriorly GI: SOFT, NT, ND, no rebound or guarding s/p PEG Extremity: + B/L LE edema. no clubbing. neuro: opens her eyes to painful stimuli. does not follow commands Psych: calm rectal: deferred Exam/Review of Systems Vital Signs Vitals Vital Signs Date Time Temp Pulse Resp B/P Pulse Ox O2 Delivery O2 Flow Rate FiO2 05/13/17 16:00 78 05/13/17 15:55 12 100 30 05/13/17 13:15 98/48 Mechanical Ventilator 05/13/17 12:00 97.8 05/09/17 15:00 5.0 Intake and Output 05/12/17 05/12/17 05/13/17 15:00 23:00 07:00 Intake Total 882.984 ml 1156.476 ml 919 ml Output Total 815 ml 415 ml 280 ml Balance 67.984 ml 741.476 ml 639 ml Results Result Diagram: 05/13/17 0500 05/13/17 0500 Results 24 hrs Laboratory Tests Test 05/12/17 17:57 05/12/17 20:35 05/13/17 01:54 05/13/17 04:54 Bedside Glucose 122 114 91 99 Test 05/13/17 05:00 05/13/17 08:31 05/13/17 12:38 05/13/17 15:10 White Blood Count 3.1 #L Red Blood Count 2.84 L Hemoglobin 8.0 L Hematocrit 26.6 L Mean Corpuscular Volume 93.7 Mean Corpuscular Hemoglobin 28.2 L Mean Corpuscular Hemoglobin Concent 30.1 L Red Cell Distribution Width 19.1 H Platelet Count 77 L Mean Platelet Volume 10.9 H Neutrophils % 67.4 Lymphocytes % 15.8 Monocytes % 7.1 Eosinophils % 9.4 H Basophils % 0.0 Nucleated Red Blood Cells % 0.0 Neutrophils # 2.1 Lymphocytes # 0.5 L Monocytes # 0.2 L Eosinophils # 0.3 Basophils # 0.0 Nucleated Red Blood Cells # 0.0 Sodium Level 142 Potassium Level 3.3 L Chloride Level 107 Carbon Dioxide Level 21 Anion Gap 17 H Blood Urea Nitrogen 63 H Creatinine 2.61 H Glucose Level 89 Calcium Level 8.4 Phosphorus Level 6.1 H Magnesium Level 1.9 Bedside Glucose 88 84 Vancomycin Level Trough 47.5 *H Test 05/13/17 16:52 Bedside Glucose 75 Medications Medications Current Medications Atorvastatin Calcium (Lipitor) 10 mg QHS GTB Last administered on 05/12/17 20: 28; Admin Dose 10 MG; Start 05/06/17 at 21:00 Bisacodyl (Dulcolax Supp) 10 mg Q48H ID Last administered on 05/12/17 17:57; Admin Dose 10 MG; Start 05/06/17 at 17:00 Carbidopa/Levodopa (Sinemet (25/ 100)) 1 tab TID GTB Last administered on 08:25; Admin Dose 1 TAB; Start 05/06/17 at 21:00 Clopidogrel Bisulfate (plaVIX) 75 mg DAILY GTB Last administered on 05/13/17 08:25; Admin Dose 75 MG; Start 05/07/17 at 09:00 Donepezil HCl (Aricept) 10 mg QHS GTB Last administered on 05/12/17 20:28; Admin Dose 10 MG; Start 05/06/17 at 21:00 Ferrous Sulfate (Ferrous Sulfate (Ec)) 325 mg BID PO Last administered on 08:25; Admin Dose 325 MG; Start 05/06/17 at 21:00 Folic Acid (Folic Acid) 1 mg DAILY GTB Last administered on 05/13/17 08:25; Admin Dose 1 MG; Start 05/07/17 at 09:00 Lactobacillus Acidophilus/ Rhamnosus (Culturelle) 1 cap QHS GTB Last administered on 05/12/17 20:28; Admin Dose 1 CAP; Start 05/06/17 at 21:00 Magnesium Hydroxide (Milk Of Mag) 30 ml Q24H GTB Last administered on 17:57; Admin Dose 30 ML; Start 05/06/17 at 17:00 Memantine (Namenda) 5 mg QAM GTB Last administered on 05/13/17 08:25; Admin Dose 5 MG; Start 05/07/17 at 09:00 Metoprolol Tartrate (Lopressor) 25 mg Q12H GTB ; Start 05/06/17 at 17:00 Multivit/Ca Carb/ B Cmplx/FA/Prenat (Radhika-John) 1 tab DAILY GTB Last administered on 05/13/17 08:25; Admin Dose 1 TAB; Start 05/07/17 at 09:00 Pramipexole (Mirapex) 0.5 mg DAILY GTB Last administered on 05/13/17 08:25; Admin Dose 0.5 MG; Start 05/07/17 at 09:00 Sodium Biphosphate/ Sodium Phosphate (Fleet Enema Pediatric) 118 ml Q72H PRN [place] CONSTIPATION; Start 05/06/17 at 17:00 Citric Acid/ Sodium Citrate (Bicitra) 30 ml BID PO Last administered on 08:25; Admin Dose 30 ML; Start 05/06/17 at 21:00 Heparin Sodium (Porcine) (Heparin (5000 Units/0.5 ml)) 5,000 unit BID SC Last administered on 05/12/17 20:33; Admin Dose 5,000 UNIT; Start 05/06/17 at 21:00 Nystatin (Nystatin Powder) 1 applic BID TOP Last administered on 7/24/17at 08: 26; Admin Dose 1 APPLIC; Start 05/09/17 at 21:00 Mupirocin (Bactroban) 1 applic BID TOP Last administered on 05/13/17 08:26; Admin Dose 1 APPLIC; Start 05/09/17 at 12:30 Collagenase (Santyl) 1 applic DAILY TOP Last administered on 05/13/17 08:27; Admin Dose 1 APPLIC; Start 05/09/17 at 15:00 Collagenase 1 applic 1 applic PRN PRN TOP WOUND CARE; Start 05/09/17 at 14:00 Meropenem/Sodium Chloride 50 ml @ 100 mls/hr Q12 IVPB Last administered on 08:26; Admin Dose 100 MLS/HR; Start 05/09/17 at 15:00 Sodium Chloride 1,000 ml @ 0 mls/hr Q0M IV ; Start 05/09/17 at 18:18 Sodium Chloride 1,000 ml @ 100 mls/hr Q10H IV Last administered on 05/13/17 09:12; Admin Dose 100 MLS/HR; Start 05/10/17 at 07:00 Norepinephrine 16 mg/Dextrose 500 ml @ 1.87 mls/hr TITRATE IV ; Start 05/10/17 at 14:00 Dopamine HCl/ Dextrose 250 ml @ 6.848 mls/ hr TITRATE IV Last administered on 05/13/17 04:55; Admin Dose 17.119 MLS/HR; Start 05/10/17 at 18:30 Diagnostic Test (Pha) (Accu-Chek) 1 ea 02 XX ; Start 05/12/17 at 02:00 Insulin Aspart (Novolog Insulin Pen) NOVOLOG *MILD* ALGORI... Q4 SC ; Start at 09:00 Miscellaneous Information 1 ea NOTE XX ; Start 05/11/17 at 08:00 Glucose (Glutose) 15 gm Q15M PRN PO DECREASED GLUCOSE; Start 05/11/17 at 08:00 Glucose (Glutose) 22.5 gm Q15M PRN PO DECREASED GLUCOSE; Start 05/11/17 at 08: 00 Dextrose (D50w Syringe) 25 ml Q15M PRN IV DECREASED GLUCOSE; Start 05/11/17 at 08:00 Dextrose (D50w Syringe) 50 ml Q15M PRN IV DECREASED GLUCOSE; Start 05/11/17 at 08:00 Glucagon (Glucagen) 1 mg Q15M PRN IM DECREASED GLUCOSE; Start 05/11/17 at 08:00 Glucose (Glutose) 15 gm Q15M PRN BUCCAL DECREASED GLUCOSE; Start 05/11/17 at 08 :00 Epoetin Vasyl (Epogen (Esrd)) 10,000 units MoWeFr@17 SC Last administered on t 16:55; Admin Dose 10,000 UNITS; Start 05/13/17 at 17:00 MILAGROS MUNOZ MD May 13, 2017 16:59
[2017-05-13] MEDS: DONEPEZIL 10 MG TAB GTB SCH (20:30)
[2017-05-13] MEDS: ATORVASTATIN 10 MG TAB GTB SCH (20:31)
[2017-05-13] MEDS: LACTOBACILLUS RHAMNOSUS CAP GTB SCH (21:00)
[2017-05-14] VITALS (81 sets, daily range): BP systolic 55–160; BP diastolic 23–75; PULSE 72–83; RESP 7–16
[2017-05-14] MEDS: INSULIN ASPART [NOVOLOG] 3 ML PEN SC SCH ×6 (01:00→21:00)
[2017-05-14] MEDS: MUPIROCIN 2% 22 GM OINT TOP SCH ×3 (01:37→22:46)
[2017-05-14] MEDS: NYSTATIN 30 GM POWDER BTL TOP SCH ×3 (01:38→22:57)
[2017-05-14] MEDS: ACCU-CHEK XX SCH (01:44)
[2017-05-14] MEDS: METOPROLOL 25 MG TAB GTB SCH ×2 (05:00→16:49)
[2017-05-14 06:29] LABS: ABNORMAL IP MESSAGE 1; BASOPHILS % 0.3 % (0.0-2.0); EOSINOPHILS # 0.7 10^3/ul (0.0-0.5); EOSINOPHILS % 23.3 % (0.0-7.0); HEMATOCRIT 27.3 % (37.0-47.0); HEMOGLOBIN 8.6 g/dl (12.0-16.0); LYMPHOCYTES # 0.7 10^3/ul (0.8-2.9); MEAN CORPUSCULAR HEMOGLOBIN 29.1 pg (29.0-33.0); MEAN CORPUSCULAR HGB CONC 31.5 g/dl (32.0-37.0); MEAN CORPUSCULAR VOLUME 92.2 fl (82.0-101.0); MEAN PLATELET VOLUME 10.5 fl (7.4-10.4); MONOCYTE # 0.2 10^3/ul (0.3-0.9); MONOCYTES % 8.2 % (0.0-11.0); NEUTROPHIL # 1.3 10^3/ul (1.6-7.5); NEUTROPHILS % 42.9 % (39.0-77.0); PLATELET COUNT 62 10^3/UL (140-415); RED BLOOD COUNT 2.96 10^6/ul (4.20-5.40); RED CELL DISTRIBUTION WIDTH 18.7 % (11.5-14.5); WHITE BLOOD COUNT 2.9 10^3/ul (4.8-10.8)
[2017-05-14 07:01] LABS: CALCIUM 8.6 mg/dl (8.4-10.2); CREATININE 2.52 mg/dl (0.44-1.00); MAGNESIUM 1.9 mg/dl (1.7-2.5); PHOSPHORUS 6.1 mg/dl (2.5-4.9); POTASSIUM 3.4 mmol/L (3.5-5.1)
[2017-05-14 07:02] LABS: POSITIVE DIFF @See below
[2017-05-14] MEDS: SOD CHLORIDE 0.45% 1,000 ML IV SCH ×2 (07:07→22:58)
[2017-05-14] MEDS: DOPamine-D5W 1.6 MG/ML 250 ML IV SCH (07:11)
--- NOTE | 2017-05-14 08:28 | PN ---
Date/Time of Note Date/Time of Note DATE: 05/14/17 TIME: 08:26 Assessment/Plan VTE Prophylaxis VTE Prophylaxis Intervention: other Lines/Catheters IV Catheter Type (from Nrsg): Mid Line Urinary Cath still in place: Yes Reason Cath still needed: other (indicate) Assessment/Plan Chief Complaint/Hosp Course 1. Septic shock Etiology likely multifactorial, pneumonia, cellulitis, wounds, Patient on pressor support, IV fluids, broad-spectrum antibiotics CT abdomen shows no acute intra-abdominal process Follow-up with infectious disease, monitor serial lactic acid levels dysphagia- g tube dislodged, Continue to monitor Follow-up with GI Patient continues to have leak around ostomy site general surgery was consulted planning for J-tube placement Acute hypoxemic respiratory failure status post trach Vent settings ABGs been reviewed Follow-up with pulmonary 3. Nonoliguric acute kidney injury on top of chronic kidney disease stage 4. Etiology hemodynamics, possible progression of disease Urinary output improved with diuretic challenge Continue to monitor closely No immediate need for renal replacement therapy at this time 4. Hypernatremia Continue hypotonic fluid 5. r/o scabies -treat with permethrin -id consult 6. chf -cont med/royce -f/u cardiology Intermittent diuresis in the setting of pressors Right large pleural effusion Consider thoracentesis Monitor closely on diuretics 8. Acute encephalopathy and advanced dementia. Etiology is toxic metabolic. Continue to monitor. 9. Mineral bone disorder. Continue to monitor calcium and phosphorus levels. 10. Anemia./Pancytopenia Will continue to monitor H and H levels. Continue Epogen. Monitor closely 11. Coronary artery disease. Continue medical management. 12. Diabetes. Continue Accu-Cheks and insulin sliding scale. 13. Decubitus wound. Continue wound care. Gastrointestinal and deep venous thrombosis prophylaxis. Continue proton pump inhibitor and heparin. Hypomagnesemia Replete magnesium sulfate as needed Problems: Subjective 24 Hr Interval Summary Free Text/Dictation Patient seen and examined Pending J-tube placement by surgery Remains critically on pressure support Exam/Review of Systems Vital Signs Vitals Vital Signs Date Time Temp Pulse Resp B/P Pulse Ox O2 Delivery O2 Flow Rate FiO2 05/14/17 08:00 30 05/14/17 06:45 77 12 110/42 100 05/14/17 06:30 Mechanical Ventilator 05/14/17 04:00 97.1 Intake and Output 05/13/17 05/13/1717 15:00 23:00 07:00 Intake Total 1024 ml 872.97 ml 814.64 ml Output Total 1300 ml 560 ml Balance 1024 ml -427.03 ml 254.64 ml Exam HEENT: Head is normocephalic, NECK: Supple., Positive trach HEART: Irregular LUNGS: Show diminished breath sounds at base. ABDOMEN: Soft, nontender to palpation without rebound or guarding. Positive G- tube EXTREMITIES: Negative for clubbing, cyanosis. Positive edema/anasarca DERMATOLOGIC: No rashes. MUSCULOSKELETAL: No joint effusions, NEUROLOGIC: No change in exam Results Result Diagram: 05/14/17 0613 05/14/17 0613 Results 24 hrs Laboratory Tests Test 05/13/17 08:31 05/13/17 12:38 05/13/17 15:10 05/13/17 16:52 Bedside Glucose 88 84 75 Vancomycin Level Trough 47.5 *H Test 05/13/17 21:15 05/14/17 01:42 05/14/17 06:13 05/14/17 06:31 Bedside Glucose 78 76 77 White Blood Count 2.9 L Red Blood Count 2.96 L Hemoglobin 8.6 L Hematocrit 27.3 L Mean Corpuscular Volume 92.2 Mean Corpuscular Hemoglobin 29.1 Mean Corpuscular Hemoglobin Concent 31.5 L Red Cell Distribution Width 18.7 H Platelet Count 62 L Mean Platelet Volume 10.5 H Neutrophils % 42.9 Lymphocytes % 25.0 Monocytes % 8.2 Eosinophils % 23.3 H Basophils % 0.3 Nucleated Red Blood Cells % 0.0 Neutrophils # 1.3 L Lymphocytes # 0.7 L Monocytes # 0.2 L Eosinophils # 0.7 H Basophils # 0.0 Nucleated Red Blood Cells # 0.0 Sodium Level 144 Potassium Level 3.4 L Chloride Level 109 Carbon Dioxide Level 21 Anion Gap 17 H Blood Urea Nitrogen 57 H Creatinine 2.52 H Glucose Level 72 Calcium Level 8.6 Phosphorus Level 6.1 H Magnesium Level 1.9 Medications Medications Current Medications Atorvastatin Calcium (Lipitor) 10 mg QHS GTB Last administered on 05/13/17 20: 31; Admin Dose 10 MG; Start 05/06/17 at 21:00 Bisacodyl (Dulcolax Supp) 10 mg Q48H SD Last administered on 05/12/17 17:57; Admin Dose 10 MG; Start 05/06/17 at 17:00 Carbidopa/Levodopa (Sinemet (25/ 100)) 1 tab TID GTB Last administered on 20:31; Admin Dose 1 TAB; Start 05/06/17 at 21:00 Clopidogrel Bisulfate (plaVIX) 75 mg DAILY GTB Last administered on 05/13/17 08:25; Admin Dose 75 MG; Start 05/07/17 at 09:00 Donepezil HCl (Aricept) 10 mg QHS GTB Last administered on 05/13/17 20:30; Admin Dose 10 MG; Start 05/06/17 at 21:00 Ferrous Sulfate (Ferrous Sulfate (Ec)) 325 mg BID PO Last administered on 08:25; Admin Dose 325 MG; Start 05/06/17 at 21:00 Folic Acid (Folic Acid) 1 mg DAILY GTB Last administered on 05/13/17 08:25; Admin Dose 1 MG; Start 05/07/17 at 09:00 Lactobacillus Acidophilus/ Rhamnosus (Culturelle) 1 cap QHS GTB Last administered on 05/12/17 20:28; Admin Dose 1 CAP; Start 05/06/17 at 21:00 Magnesium Hydroxide (Milk Of Mag) 30 ml Q24H GTB Last administered on 17:57; Admin Dose 30 ML; Start 05/06/17 at 17:00 Memantine (Namenda) 5 mg QAM GTB Last administered on 05/13/17 08:25; Admin Dose 5 MG; Start 05/07/17 at 09:00 Metoprolol Tartrate (Lopressor) 25 mg Q12H GTB ; Start 05/06/17 at 17:00 Multivit/Ca Carb/ B Cmplx/FA/Prenat (Radhika-John) 1 tab DAILY GTB Last administered on 05/13/17 08:25; Admin Dose 1 TAB; Start 05/07/17 at 09:00 Pramipexole (Mirapex) 0.5 mg DAILY GTB Last administered on 05/13/17 08:25; Admin Dose 0.5 MG; Start 05/07/17 at 09:00 Sodium Biphosphate/ Sodium Phosphate (Fleet Enema Pediatric) 118 ml Q72H PRN [place] CONSTIPATION; Start 05/06/17 at 17:00 Citric Acid/ Sodium Citrate (Bicitra) 30 ml BID PO Last administered on 20:31; Admin Dose 30 ML; Start 05/06/17 at 21:00 Heparin Sodium (Porcine) (Heparin (5000 Units/0.5 ml)) 5,000 unit BID SC Last administered on 05/13/17 20:33; Admin Dose 5,000 UNIT; Start 05/06/17 at 21:00 Nystatin (Nystatin Powder) 1 applic BID TOP Last administered on 05/14/17 01: 38; Admin Dose 1 APPLIC; Start 05/09/17 at 21:00 Mupirocin (Bactroban) 1 applic BID TOP Last administered on 05/14/17 01:37; Admin Dose 1 APPLIC; Start 05/09/17 at 12:30 Collagenase (Santyl) 1 applic DAILY TOP Last administered on 05/13/17 08:27; Admin Dose 1 APPLIC; Start 05/09/17 at 15:00 Collagenase 1 applic 1 applic PRN PRN TOP WOUND CARE; Start 05/09/17 at 14:00 Meropenem/Sodium Chloride 50 ml @ 100 mls/hr Q12 IVPB Last administered on 20:35; Admin Dose 100 MLS/HR; Start 05/09/17 at 15:00 Sodium Chloride 1,000 ml @ 0 mls/hr Q0M IV ; Start 05/09/17 at 18:18 Sodium Chloride 1,000 ml @ 100 mls/hr Q10H IV Last administered on 05/14/17 07:07; Admin Dose 100 MLS/HR; Start 05/10/17 at 07:00 Norepinephrine 16 mg/Dextrose 500 ml @ 1.87 mls/hr TITRATE IV ; Start 05/10/17 at 14:00 Dopamine HCl/ Dextrose 250 ml @ 6.848 mls/ hr TITRATE IV Last administered on 05/14/17 07:11; Admin Dose 15.407 MLS/HR; Start 05/10/17 at 18:30 Diagnostic Test (Pha) (Accu-Chek) 1 ea 02 XX Last administered on 05/14/17 01: 44; Admin Dose 1 EA; Start 05/12/17 at 02:00 Insulin Aspart (Novolog Insulin Pen) NOVOLOG *MILD* ALGORI... Q4 SC ; Start at 09:00 Miscellaneous Information 1 ea NOTE XX ; Start 05/11/17 at 08:00 Glucose (Glutose) 15 gm Q15M PRN PO DECREASED GLUCOSE; Start 05/11/17 at 08:00 Glucose (Glutose) 22.5 gm Q15M PRN PO DECREASED GLUCOSE; Start 05/11/17 at 08: 00 Dextrose (D50w Syringe) 25 ml Q15M PRN IV DECREASED GLUCOSE; Start 05/11/17 at 08:00 Dextrose (D50w Syringe) 50 ml Q15M PRN IV DECREASED GLUCOSE; Start 05/11/17 at 08:00 Glucagon (Glucagen) 1 mg Q15M PRN IM DECREASED GLUCOSE; Start 05/11/17 at 08:00 Glucose (Glutose) 15 gm Q15M PRN BUCCAL DECREASED GLUCOSE; Start 05/11/17 at 08 :00 Epoetin Vasyl (Epogen (Esrd)) 10,000 units MoWeFr@17 SC Last administered on t 16:55; Admin Dose 10,000 UNITS; Start 05/13/17 at 17:00 Alteplase, Recombinant (Cathflo (Activase)) 2 mg ONCE ONCE CATHETER ; Start at 09:00; Stop 05/14/17 at 09:01 Miscellaneous Information (*Rx Drug Level Order Reminder*) VANCOMYCIN RANDOM ON 04/21... ONCE ONCE XX ; Start 05/15/17 at 05:00; Stop 05/15/17 at 05:01 OSMAR MONTAGUE DO May 14, 2017 08:28
[2017-05-14] MEDS ORDERED: POTASSIUM CHLORIDE 250 ML IVPB ONE (08:30)
[2017-05-14] MEDS: MULTIVIT/CA CARB/B CMPLX/FA TAB GTB SCH (08:59)
[2017-05-14] MEDS: CLOPIDOGREL 75 MG TAB GTB SCH (09:00)
[2017-05-14] MEDS: FOLIC ACID 1 MG TAB GTB SCH (09:00)
[2017-05-14] MEDS: HEPARIN 5,000 UNIT/0.5 ML VIAL SC SCH ×3 (09:00→22:43)
[2017-05-14] MEDS: PRAMIPEXOLE 0.25 MG TAB GTB SCH (09:00)
[2017-05-14] MEDS: FERROUS SULFATE (EC) 325 MG TAB PO SCH ×2 (09:00→21:00)
[2017-05-14] MEDS: CARBIDOPA/LEVODOPA (25/100) TAB GTB SCH ×3 (09:00→21:00)
[2017-05-14] MEDS: CITRIC ACID/NA CITRATE 30 ML CUP PO SCH ×2 (09:00→21:00)
[2017-05-14] MEDS: MEMANTINE 5 MG TAB GTB SCH (09:00)
[2017-05-14] MEDS ORDERED: ALTEPLASE (CATHFLO) 2 MG INJ CATHETER ONE (09:00)
[2017-05-14] MEDS: MEROPENEM 1 GM/50ML(PMX) 50 ML IVPB SCH ×2 (09:08→22:50)
[2017-05-14] MEDS: COLLAGENASE 30 GM TUBE TOP SCH (09:10)
--- NOTE | 2017-05-14 10:33 | CONS ---
Date/Time of Note Date/Time of Note DATE: 05/14/17 TIME: 10:32 Consult Date/Type/Reason Admit Date/Time May 06, 2017 at 16:34 Initial Consult Date 05/10/17 Type of Consultation: Pulmonary ICU Subjective No significant changes remains full ventilation occasionally grimaces to painful stimuli Continues dopamine. Objective Vital Signs Date Time Temp Pulse Resp B/P Pulse Ox O2 Delivery O2 Flow Rate FiO2 05/14/17 09:45 77 12 97/35 100 05/14/17 09:00 Mechanical Ventilator 05/14/17 08:00 30 05/14/17 08:00 97.6 Intake and Output 05/13/17 05/13/17 05/14/17 14:59 22:59 06:59 Intake Total 1004 ml 875.86 ml 931.75 ml Output Total 1220 ml 640 ml Balance 1004 ml -344.14 ml 291.75 ml Exam PHYSICAL EXAMINATION GENERAL: Elderly lady on mechanical ventilation via tracheostomy somnolent VITAL SIGNS: see below. HEENT: Pupils equal, round, and reactive to light. Tracheostomy site clean and intact. CARDIAC: S1, S2, 1/6 systolic ejection murmur CHEST: Diminished air entry bilaterally. ABDOMEN: Diminished bowel sounds. EXTREMITIES: No cyanosis, clubbing edema +1 NEUROLOGIC: Generalized weakness Results/Medications Result Diagram: 05/14/1713 05/14/1713 Results 24 hrs Laboratory Tests Test 05/13/17 12:38 05/13/17 15:10 05/13/17 16:52 05/13/17 21:15 Bedside Glucose 84 75 78 Vancomycin Level Trough 47.5 *H Test 05/14/17 01:42 05/14/17 06:13 05/14/17 06:31 05/14/17 08:43 Bedside Glucose 76 77 74 White Blood Count 2.9 L Red Blood Count 2.96 L Hemoglobin 8.6 L Hematocrit 27.3 L Mean Corpuscular Volume 92.2 Mean Corpuscular Hemoglobin 29.1 Mean Corpuscular Hemoglobin Concent 31.5 L Red Cell Distribution Width 18.7 H Platelet Count 62 L Mean Platelet Volume 10.5 H Neutrophils % 42.9 Lymphocytes % 25.0 Monocytes % 8.2 Eosinophils % 23.3 H Basophils % 0.3 Nucleated Red Blood Cells % 0.0 Neutrophils # 1.3 L Lymphocytes # 0.7 L Monocytes # 0.2 L Eosinophils # 0.7 H Basophils # 0.0 Nucleated Red Blood Cells # 0.0 Sodium Level 144 Potassium Level 3.4 L Chloride Level 109 Carbon Dioxide Level 21 Anion Gap 17 H Blood Urea Nitrogen 57 H Creatinine 2.52 H Glucose Level 72 Calcium Level 8.6 Phosphorus Level 6.1 H Magnesium Level 1.9 Medications Current Medications Atorvastatin Calcium (Lipitor) 10 mg QHS GTB Last administered on 05/13/17 20: 31; Admin Dose 10 MG; Start 05/06/17 at 21:00 Bisacodyl (Dulcolax Supp) 10 mg Q48H MO Last administered on 05/12/17 17:57; Admin Dose 10 MG; Start 05/06/17 at 17:00 Carbidopa/Levodopa (Sinemet (/ )) 1 tab TID GTB Last administered on 09:00; Admin Dose 1 TAB; Start 05/06/17 at 21:00 Clopidogrel Bisulfate (plaVIX) 75 mg DAILY GTB Last administered on 05/14/17 09:00; Admin Dose 75 MG; Start 05/07/17 at 09:00 Donepezil HCl (Aricept) 10 mg QHS GTB Last administered on 05/13/17 20:30; Admin Dose 10 MG; Start 05/06/17 at 21:00 Ferrous Sulfate (Ferrous Sulfate (Ec)) 325 mg BID PO Last administered on 09:00; Admin Dose 325 MG; Start 05/06/17 at 21:00 Folic Acid (Folic Acid) 1 mg DAILY GTB Last administered on 05/14/17 09:00; Admin Dose 1 MG; Start 05/07/17 at 09:00 Lactobacillus Acidophilus/ Rhamnosus (Culturelle) 1 cap QHS GTB Last administered on 05/12/17 20:28; Admin Dose 1 CAP; Start 05/06/17 at 21:00 Magnesium Hydroxide (Milk Of Mag) 30 ml Q24H GTB Last administered on 17:57; Admin Dose 30 ML; Start 05/06/17 at 17:00 Memantine (Namenda) 5 mg QAM GTB Last administered on 05/14/17 09:00; Admin Dose 5 MG; Start 05/07/17 at 09:00 Metoprolol Tartrate (Lopressor) 25 mg Q12H GTB ; Start 05/06/17 at 17:00 Multivit/Ca Carb/ B Cmplx/FA/Prenat (Radhika-John) 1 tab DAILY GTB Last administered on 05/14/17 08:59; Admin Dose 1 TAB; Start 05/07/17 at 09:00 Pramipexole (Mirapex) 0.5 mg DAILY GTB Last administered on 05/14/17 09:00; Admin Dose 0.5 MG; Start 05/07/17 at 09:00 Sodium Biphosphate/ Sodium Phosphate (Fleet Enema Pediatric) 118 ml Q72H PRN [place] CONSTIPATION; Start 05/06/17 at 17:00 Citric Acid/ Sodium Citrate (Bicitra) 30 ml BID PO Last administered on 09:00; Admin Dose 30 ML; Start 05/06/17 at 21:00 Heparin Sodium (Porcine) (Heparin (5000 Units/0.5 ml)) 5,000 unit BID SC Last administered on 05/14/17 09:27; Admin Dose 5,000 UNIT; Start 05/06/17 at 21:00 Nystatin (Nystatin Powder) 1 applic BID TOP Last administered on 05/14/17 09: 09; Admin Dose 1 APPLIC; Start 05/09/17 at 21:00 Mupirocin (Bactroban) 1 applic BID TOP Last administered on 05/14/17 09:09; Admin Dose 1 APPLIC; Start 05/09/17 at 12:30 Collagenase (Santyl) 1 applic DAILY TOP Last administered on 05/14/17 09:10; Admin Dose 1 APPLIC; Start 05/09/17 at 15:00 Collagenase 1 applic 1 applic PRN PRN TOP WOUND CARE; Start 05/09/17 at 14:00 Meropenem/Sodium Chloride 50 ml @ 100 mls/hr Q12 IVPB Last administered on 09:08; Admin Dose 100 MLS/HR; Start 05/09/17 at 15:00 Sodium Chloride 1,000 ml @ 0 mls/hr Q0M IV ; Start 05/09/17 at 18:18 Sodium Chloride 1,000 ml @ 100 mls/hr Q10H IV Last administered on 05/14/17 07:07; Admin Dose 100 MLS/HR; Start 05/10/17 at 07:00 Norepinephrine 16 mg/Dextrose 500 ml @ 1.87 mls/hr TITRATE IV ; Start 05/10/17 at 14:00 Dopamine HCl/ Dextrose 250 ml @ 6.848 mls/ hr TITRATE IV Last administered on 05/14/17 07:11; Admin Dose 15.407 MLS/HR; Start 05/10/17 at 18:30 Diagnostic Test (Pha) (Accu-Chek) 1 ea 02 XX Last administered on 05/14/17 01: 44; Admin Dose 1 EA; Start 05/12/17 at 02:00 Insulin Aspart (Novolog Insulin Pen) NOVOLOG *MILD* ALGORI... Q4 SC ; Start at 09:00 Miscellaneous Information 1 ea NOTE XX ; Start 05/11/17 at 08:00 Glucose (Glutose) 15 gm Q15M PRN PO DECREASED GLUCOSE; Start 05/11/17 at 08:00 Glucose (Glutose) 22.5 gm Q15M PRN PO DECREASED GLUCOSE; Start 05/11/17 at 08: 00 Dextrose (D50w Syringe) 25 ml Q15M PRN IV DECREASED GLUCOSE; Start 05/11/17 at 08:00 Dextrose (D50w Syringe) 50 ml Q15M PRN IV DECREASED GLUCOSE; Start 05/11/17 at 08:00 Glucagon (Glucagen) 1 mg Q15M PRN IM DECREASED GLUCOSE; Start 05/11/17 at 08:00 Glucose (Glutose) 15 gm Q15M PRN BUCCAL DECREASED GLUCOSE; Start 05/11/17 at 08 :00 Epoetin Vasyl (Epogen (Esrd)) 10,000 units MoWeFr@17 SC Last administered on 16:55; Admin Dose 10,000 UNITS; Start 05/13/17 at 17:00 Miscellaneous Information VANCOMYCIN RANDOM ON 04/21... ONCE ONCE XX ; Start at 05:00; Stop 05/15/17 at 05:01 Potassium Chloride (KCl 40 MEQ/250 ML NS) 250 ml @ 62.5 mls/hr ONCE ONCE IVPB Last administered on 05/14/17 08:59; Admin Dose 62.5 MLS/HR; Start 05/14/17 at 08:30; Stop 05/14/17 at 12:29 Assessment/Plan Chief Complaint/Hosp Course Assessment 1. Chronic encephalopathy unchanged 2. GJ tube site leak with erosion of surrounding skin. 3.Anemia of chronic disease 4. Chronic kidney disease 5. Vent dependent respiratory failure Plan 1. Pending GI evaluation to replace G-tube, per nursing staff scheduled for today 2. Continue mechanical ventilation pulmonary toilet 3. Continue wound care 4. Monitor H&H. Transfuse for hemoglobin less than 7.5. Overall prognosis very poor consider palliative care consult Problems: JARED CLAIRE MD, [facility] May 14, 2017 10:33
[2017-05-14] MEDS: ALTEPLASE (CATHFLO) 2 MG INJ CATHETER PRN (11:27)
--- NOTE | 2017-05-14 11:50 | CONS ---
Date/Time of Note Date/Time of Note DATE: 05/14/17 TIME: 11:49 Assessment/Plan Assessment/Plan Chief Complaint/Hosp Course ID PROGRESS NOTE TOTAL ABX DAY # 5 => Vanco IV + Merrem 24H INTERVAL SUMMARY * No fevers, WBC normalized -- 86 yo F seen in ICU, eyes open, nontracking, obese, vented, noncommunicative * Chart reviewed, d/w RN, patient examined * Microbiology: All cultures remain negative * CT of the abdomen revealed induration of the skin and thickening of the subcutaneous fat along the gastrostomy tract, larger right pleural effusion, extensive diverticular disease of the distal colon without evidence of diverticulitis PHYSICAL EXAMINATION: GENERAL: VSS,NAD, no fevers == Obese, eyes open HEENT: NGT->Secure / ETT secure NECK: Supple, trach-> midline CHEST: Equal chest rise bilaterally, Vented HEART: Pulse RRR ABDOMEN: Soft -> see photos large EC fistula residual healing scar, cellulitis w/(+)drainage EXTREMITIES: Warm, no edema SKIN: Warm, dry ID ASSESSMENT: 86 yo F w/PMHx Obesity,Parkinson's dementia w/chronic encephalopathy admitted with: 1. Sepsis w/shock, hypothermia, leukocytosis, lactic acidosis => multifactorial as below * 05/07/17 BCx (-) 2. Possible healthcare associated pneumonia * CT (+)Large right pleural effusion/small left effusion 3. 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 4. Rash, no scabies per skin scraping * s/p Empiric Elimite x1 5. Chronic respiratory failure w/Trach 6. Multiple chronic decubitus 7. UTI as per urinalysis on admission => urine was not sent for culture 8. Acute kidney injury. 9. Diabetes. 10. Acute on chronic anemia. 11. 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 Continue IV ABX and supportive care...anticipate 10 days total ABX for UTI/ HCAP 2. Respiratory culture 3. Aspiration precautions 4. GT site local wound care; topical ointment and absorbant DSG barrier care . Problems: Consultation Date/Type/Reason Admit Date/Time May 06, 2017 at 16:34 Initial Consult Date 05/12/17 Type of Consultation: ID Exam/Review of Systems Vital Signs Vitals Vital Signs Date Time Temp Pulse Resp B/P Pulse Ox O2 Delivery O2 Flow Rate FiO2 05/14/17 11:00 79 13 100 30 05/14/17 09:45 97/35 05/14/17 09:00 Mechanical Ventilator 05/14/17 08:00 97.6 Intake and Output 05/13/17 05/13/17 05/14/17 15:00 23:00 07:00 Intake Total 1024 ml 872.97 ml 814.64 ml Output Total 1300 ml 560 ml Balance 1024 ml -427.03 ml 254.64 ml Results Result Diagram: 05/14/17 0613 05/14/17 0613 Results 24 hrs Laboratory Tests Test 05/13/17 12:38 05/13/17 15:10 05/13/17 16:52 05/13/17 21:15 Bedside Glucose 84 75 78 Vancomycin Level Trough 47.5 *H Test 05/14/17 01:42 05/14/17 06:13 05/14/17 06:31 05/14/17 08:43 Bedside Glucose 76 77 74 White Blood Count 2.9 L Red Blood Count 2.96 L Hemoglobin 8.6 L Hematocrit 27.3 L Mean Corpuscular Volume 92.2 Mean Corpuscular Hemoglobin 29.1 Mean Corpuscular Hemoglobin Concent 31.5 L Red Cell Distribution Width 18.7 H Platelet Count 62 L Mean Platelet Volume 10.5 H Neutrophils % 42.9 Lymphocytes % 25.0 Monocytes % 8.2 Eosinophils % 23.3 H Basophils % 0.3 Nucleated Red Blood Cells % 0.0 Neutrophils # 1.3 L Lymphocytes # 0.7 L Monocytes # 0.2 L Eosinophils # 0.7 H Basophils # 0.0 Nucleated Red Blood Cells # 0.0 Sodium Level 144 Potassium Level 3.4 L Chloride Level 109 Carbon Dioxide Level 21 Anion Gap 17 H Blood Urea Nitrogen 57 H Creatinine 2.52 H Glucose Level 72 Calcium Level 8.6 Phosphorus Level 6.1 H Magnesium Level 1.9 Medications Medications Current Medications Atorvastatin Calcium (Lipitor) 10 mg QHS GTB Last administered on 05/13/17 20: 31; Admin Dose 10 MG; Start 05/06/17 at 21:00 Bisacodyl (Dulcolax Supp) 10 mg Q48H UT Last administered on 05/12/17 17:57; Admin Dose 10 MG; Start 05/06/17 at 17:00 Carbidopa/Levodopa (Sinemet (/ )) 1 tab TID GTB Last administered on 09:00; Admin Dose 1 TAB; Start 05/06/17 at 21:00 Clopidogrel Bisulfate (plaVIX) 75 mg DAILY GTB Last administered on 05/14/17 09:00; Admin Dose 75 MG; Start 05/07/17 at 09:00 Donepezil HCl (Aricept) 10 mg QHS GTB Last administered on 05/13/17 20:30; Admin Dose 10 MG; Start 05/06/17 at 21:00 Ferrous Sulfate (Ferrous Sulfate (Ec)) 325 mg BID PO Last administered on 09:00; Admin Dose 325 MG; Start 05/06/17 at 21:00 Folic Acid (Folic Acid) 1 mg DAILY GTB Last administered on 05/14/17 09:00; Admin Dose 1 MG; Start 05/07/17 at 09:00 Lactobacillus Acidophilus/ Rhamnosus (Culturelle) 1 cap QHS GTB Last administered on 05/12/17 20:28; Admin Dose 1 CAP; Start 05/06/17 at 21:00 Magnesium Hydroxide (Milk Of Mag) 30 ml Q24H GTB Last administered on 17:57; Admin Dose 30 ML; Start 05/06/17 at 17:00 Memantine (Namenda) 5 mg QAM GTB Last administered on 05/14/17 09:00; Admin Dose 5 MG; Start 05/07/17 at 09:00 Metoprolol Tartrate (Lopressor) 25 mg Q12H GTB ; Start 05/06/17 at 17:00 Multivit/Ca Carb/ B Cmplx/FA/Prenat (Radhika-John) 1 tab DAILY GTB Last administered on 05/14/17 08:59; Admin Dose 1 TAB; Start 05/07/17 at 09:00 Pramipexole (Mirapex) 0.5 mg DAILY GTB Last administered on 05/14/17 09:00; Admin Dose 0.5 MG; Start 05/07/17 at 09:00 Sodium Biphosphate/ Sodium Phosphate (Fleet Enema Pediatric) 118 ml Q72H PRN [place] CONSTIPATION; Start 05/06/17 at 17:00 Citric Acid/ Sodium Citrate (Bicitra) 30 ml BID PO Last administered on 09:00; Admin Dose 30 ML; Start 05/06/17 at 21:00 Heparin Sodium (Porcine) (Heparin (5000 Units/0.5 ml)) 5,000 unit BID SC Last administered on 05/14/17 09:27; Admin Dose 5,000 UNIT; Start 05/06/17 at 21:00 Nystatin (Nystatin Powder) 1 applic BID TOP Last administered on 05/14/17 09: 09; Admin Dose 1 APPLIC; Start 05/09/17 at 21:00 Mupirocin (Bactroban) 1 applic BID TOP Last administered on 05/14/17 09:09; Admin Dose 1 APPLIC; Start 05/09/17 at 12:30 Collagenase (Santyl) 1 applic DAILY TOP Last administered on 05/14/17 09:10; Admin Dose 1 APPLIC; Start 05/09/17 at 15:00 Collagenase 1 applic 1 applic PRN PRN TOP WOUND CARE; Start 05/09/17 at 14:00 Meropenem/Sodium Chloride 50 ml @ 100 mls/hr Q12 IVPB Last administered on 09:08; Admin Dose 100 MLS/HR; Start 05/09/17 at 15:00 Sodium Chloride 1,000 ml @ 0 mls/hr Q0M IV ; Start 05/09/17 at 18:18 Sodium Chloride 1,000 ml @ 100 mls/hr Q10H IV Last administered on 05/14/17 07:07; Admin Dose 100 MLS/HR; Start 05/10/17 at 07:00 Norepinephrine 16 mg/Dextrose 500 ml @ 1.87 mls/hr TITRATE IV ; Start 05/10/17 at 14:00 Dopamine HCl/ Dextrose 250 ml @ 6.848 mls/ hr TITRATE IV Last administered on 05/14/17 07:11; Admin Dose 15.407 MLS/HR; Start 05/10/17 at 18:30 Diagnostic Test (Pha) (Accu-Chek) 1 ea 02 XX Last administered on 05/14/17 01: 44; Admin Dose 1 EA; Start 05/12/17 at 02:00 Insulin Aspart (Novolog Insulin Pen) NOVOLOG *MILD* ALGORI... Q4 SC ; Start at 09:00 Miscellaneous Information 1 ea NOTE XX ; Start 05/11/17 at 08:00 Glucose (Glutose) 15 gm Q15M PRN PO DECREASED GLUCOSE; Start 05/11/17 at 08:00 Glucose (Glutose) 22.5 gm Q15M PRN PO DECREASED GLUCOSE; Start 05/11/17 at 08: 00 Dextrose (D50w Syringe) 25 ml Q15M PRN IV DECREASED GLUCOSE; Start 05/11/17 at 08:00 Dextrose (D50w Syringe) 50 ml Q15M PRN IV DECREASED GLUCOSE; Start 05/11/17 at 08:00 Glucagon (Glucagen) 1 mg Q15M PRN IM DECREASED GLUCOSE; Start 05/11/17 at 08:00 Glucose (Glutose) 15 gm Q15M PRN BUCCAL DECREASED GLUCOSE; Start 05/11/17 at 08 :00 Epoetin Vasyl (Epogen (Esrd)) 10,000 units MoWeFr@17 SC Last administered on 16:55; Admin Dose 10,000 UNITS; Start 05/13/17 at 17:00 Miscellaneous Information VANCOMYCIN RANDOM ON 04/21... ONCE ONCE XX ; Start at 05:00; Stop 05/15/17 at 05:01 Potassium Chloride (KCl 40 MEQ/250 ML NS) 250 ml @ 62.5 mls/hr ONCE ONCE IVPB Last administered on 05/14/17 08:59; Admin Dose 62.5 MLS/HR; Start 05/14/17 at 08:30; Stop 05/14/17 at 12:29 SYLIVA PADRON NP May 14, 2017 11:50
[2017-05-14] MEDS: DEXTROSE 50% 50 ML SYRINGE IV PRN (12:10)
--- NOTE | 2017-05-14 12:51 | GILP ---
DATE OF PROCEDURE: PROCEDURE PERFORMED: Elderly female undergoing this procedure for dysphagia and leaking from the G-tube site. She has abnormal anatomy of the abdominal wall and because of the deep crease, the G-tube and the J-tube is not staying in the position feeder. The risks of the procedure and related complications and anesthetic risk were discussed and informed consent was obtained. The patient was sedated by Dr. Frankel. Scope was passed as much in the esophagus. GJ tube was passed and the jejunostomy tube was advanced all the way into the proximal jejunum. The loop was clipped to the wall. Scope was removed. Balloon was inflated with 15 cc normal saline, but the balloon was nonfunctional. trach will not hold the G-tube in place. However we anchored it. IMPRESSION: 1. Successful placement of J-tube done. 2. Malfunctioning balloon of the GJ-tube. PLAN: Plan is to resume feeding through the jejunostomy port. We do not have another J-tube to place it. It may take 2 days. I will discuss with Dr. Blackburn whether he can surgically put the G-tube permanently at a different site or just put a direct jejunostomy tube. Dictated By: Pedro Degroot MD /junie/ /Document#: [id number] CC: Brendan Rosas DO;*End*
--- NOTE | 2017-05-14 14:16 | PN ---
Date/Time of Note Date/Time of Note DATE: 05/14/17 TIME: 14:14 Assessment/Plan VTE Prophylaxis VTE Prophylaxis Intervention: other Lines/Catheters IV Catheter Type (from Nrs): Mid Line Urinary Cath still in place: Yes Reason Cath still needed: other (indicate) Assessment/Plan Chief Complaint/Hosp Course 1. hypoxemic resp failure: s/p trach 2. Pafib; currently in NSR 3. hx HTN: now in shock and hypotensive. : STILL requires DOPAMINE DRIP 4. encephalopathy 5. renal failure: f/u with nephrology 6. dysphagia 7. G tube malfunction/ infection will cont dopamine drip. . cont resp care nutritional support. CONT ICU care as long as pt is on pressors correct lytes prn f/u renal fx. Problems: Subjective 24 Hr Interval Summary Free Text/Dictation Discussed with staff and rhythm was reviewed pt remains in NSR. NO AFIB seen NONVERBAL. pt is still ICU on dopamne drip and unable to wean off s/p PEG placement 05/12/17 again pt's PICC Line is not working well per RN and needs a new PICC LINE OBJECTIVE: General: no acute distress HEENT: NC/AT. NECK: NO JVD. no stridor. S/P trach on O2 CV: RRR. systolic murmur; no gallop or rubs. PULM: no wheezing anteriorly GI: SOFT, NT, ND, no rebound or guarding s/p PEG Extremity: + B/L LE edema. no clubbing. neuro: opens her eyes to painful stimuli. does not follow commands Psych: calm rectal: deferred Exam/Review of Systems Vital Signs Vitals Vital Signs Date Time Temp Pulse Resp B/P Pulse Ox O2 Delivery O2 Flow Rate FiO2 05/14/17 12:00 78 05/14/17 11:00 13 100 30 05/14/17 09:45 97/35 05/14/17 09:00 Mechanical Ventilator 05/14/17 08:00 97.6 Intake and Output 05/13/17 05/13/17 05/14/17 15:00 23:00 07:00 Intake Total 1024 ml 872.97 ml 814.64 ml Output Total 1300 ml 560 ml Balance 1024 ml -427.03 ml 254.64 ml Results Result Diagram: 7/25/17 0613 7/25/17 0613 Results 24 hrs Laboratory Tests Test 05/13/17 15:10 05/13/17 16:52 05/13/17 21:15 05/14/17 01:42 Vancomycin Level Trough 47.5 *H Bedside Glucose 75 78 76 Test 05/14/17 06:13 05/14/17 06:31 05/14/17 08:43 05/14/17 12:03 White Blood Count 2.9 L Red Blood Count 2.96 L Hemoglobin 8.6 L Hematocrit 27.3 L Mean Corpuscular Volume 92.2 Mean Corpuscular Hemoglobin 29.1 Mean Corpuscular Hemoglobin Concent 31.5 L Red Cell Distribution Width 18.7 H Platelet Count 62 L Mean Platelet Volume 10.5 H Neutrophils % 42.9 Lymphocytes % 25.0 Monocytes % 8.2 Eosinophils % 23.3 H Basophils % 0.3 Nucleated Red Blood Cells % 0.0 Neutrophils # 1.3 L Lymphocytes # 0.7 L Monocytes # 0.2 L Eosinophils # 0.7 H Basophils # 0.0 Nucleated Red Blood Cells # 0.0 Sodium Level 144 Potassium Level 3.4 L Chloride Level 109 Carbon Dioxide Level 21 Anion Gap 17 H Blood Urea Nitrogen 57 H Creatinine 2.52 H Glucose Level 72 Calcium Level 8.6 Phosphorus Level 6.1 H Magnesium Level 1.9 Bedside Glucose 77 74 66 L Test 05/14/17 12:22 Bedside Glucose 114 Medications Medications Current Medications Atorvastatin Calcium (Lipitor) 10 mg QHS GTB Last administered on 05/13/17 20: 31; Admin Dose 10 MG; Start 05/06/17 at 21:00 Bisacodyl (Dulcolax Supp) 10 mg Q48H [place] Last administered on 05/12/17 17:57; Admin Dose 10 MG; Start 05/06/17 at 17:00 Carbidopa/Levodopa (Sinemet (25/ )) 1 tab TID GTB Last administered on 09:00; Admin Dose 1 TAB; Start 05/06/17 at 21:00 Clopidogrel Bisulfate (plaVIX) 75 mg DAILY GTB Last administered on 05/14/17 09:00; Admin Dose 75 MG; Start 05/07/17 at 09:00 Donepezil HCl (Aricept) 10 mg QHS GTB Last administered on 05/13/17 20:30; Admin Dose 10 MG; Start 05/06/17 at 21:00 Ferrous Sulfate (Ferrous Sulfate (Ec)) 325 mg BID PO Last administered on 09:00; Admin Dose 325 MG; Start 05/06/17 at 21:00 Folic Acid (Folic Acid) 1 mg DAILY GTB Last administered on 05/14/17 09:00; Admin Dose 1 MG; Start 05/07/17 at 09:00 Lactobacillus Acidophilus/ Rhamnosus (Culturelle) 1 cap QHS GTB Last administered on 05/12/17 20:28; Admin Dose 1 CAP; Start 05/06/17 at 21:00 Magnesium Hydroxide (Milk Of Mag) 30 ml Q24H GTB Last administered on 17:57; Admin Dose 30 ML; Start 05/06/17 at 17:00 Memantine (Namenda) 5 mg QAM GTB Last administered on 05/14/17 09:00; Admin Dose 5 MG; Start 05/07/17 at 09:00 Metoprolol Tartrate (Lopressor) 25 mg Q12H GTB ; Start 05/06/17 at 17:00 Multivit/Ca Carb/ B Cmplx/FA/Prenat (Radhika-John) 1 tab DAILY GTB Last administered on 05/14/17 08:59; Admin Dose 1 TAB; Start 05/07/17 at 09:00 Pramipexole (Mirapex) 0.5 mg DAILY GTB Last administered on 05/14/17 09:00; Admin Dose 0.5 MG; Start 05/07/17 at 09:00 Sodium Biphosphate/ Sodium Phosphate (Fleet Enema Pediatric) 118 ml Q72H PRN [place] CONSTIPATION; Start 05/06/17 at 17:00 Citric Acid/ Sodium Citrate (Bicitra) 30 ml BID PO Last administered on 09:00; Admin Dose 30 ML; Start 05/06/17 at 21:00 Heparin Sodium (Porcine) (Heparin (5000 Units/0.5 ml)) 5,000 unit BID SC Last administered on 05/14/17 09:27; Admin Dose 5,000 UNIT; Start 05/06/17 at 21:00 Nystatin (Nystatin Powder) 1 applic BID TOP Last administered on 05/14/17 09: 09; Admin Dose 1 APPLIC; Start 05/09/17 at 21:00 Mupirocin (Bactroban) 1 applic BID TOP Last administered on 05/14/17 09:09; Admin Dose 1 APPLIC; Start 05/09/17 at 12:30 Collagenase (Santyl) 1 applic DAILY TOP Last administered on 05/14/17 09:10; Admin Dose 1 APPLIC; Start 05/09/17 at 15:00 Collagenase 1 applic 1 applic PRN PRN TOP WOUND CARE; Start 05/09/17 at 14:00 Sodium Chloride 1,000 ml @ 0 mls/hr Q0M IV ; Start 05/09/17 at 18:18 Sodium Chloride 1,000 ml @ 100 mls/hr Q10H IV Last administered on 05/14/17 07:07; Admin Dose 100 MLS/HR; Start 05/10/17 at 07:00 Norepinephrine 16 mg/Dextrose 500 ml @ 1.87 mls/hr TITRATE IV ; Start 05/10/17 at 14:00 Dopamine HCl/ Dextrose 250 ml @ 6.848 mls/ hr TITRATE IV Last administered on 05/14/17 07:11; Admin Dose 15.407 MLS/HR; Start 05/10/17 at 18:30 Diagnostic Test (Pha) (Accu-Chek) 1 ea 02 XX Last administered on 05/14/17 01: 44; Admin Dose 1 EA; Start 05/12/17 at 02:00 Insulin Aspart (Novolog Insulin Pen) NOVOLOG *MILD* ALGORI... Q4 SC ; Start at 09:00 Miscellaneous Information 1 ea NOTE XX ; Start 05/11/17 at 08:00 Glucose (Glutose) 15 gm Q15M PRN PO DECREASED GLUCOSE; Start 05/11/17 at 08:00 Glucose (Glutose) 22.5 gm Q15M PRN PO DECREASED GLUCOSE; Start 05/11/17 at 08: 00 Dextrose (D50w Syringe) 25 ml Q15M PRN IV DECREASED GLUCOSE Last administered on 05/14/17 12:10; Admin Dose 25 ML; Start 05/11/17 at 08:00 Dextrose (D50w Syringe) 50 ml Q15M PRN IV DECREASED GLUCOSE; Start 05/11/17 at 08:00 Glucagon (Glucagen) 1 mg Q15M PRN IM DECREASED GLUCOSE; Start 05/11/17 at 08:00 Glucose (Glutose) 15 gm Q15M PRN BUCCAL DECREASED GLUCOSE; Start 05/11/17 at 08 :00 Epoetin Vasyl (Epogen (Esrd)) 10,000 units MoWeFr@17 SC Last administered on t 16:55; Admin Dose 10,000 UNITS; Start 05/13/17 at 17:00 Miscellaneous Information VANCOMYCIN RANDOM ON 04/21... ONCE ONCE XX ; Start at 05:00; Stop 05/15/17 at 05:01 Meropenem/Sodium Chloride (Merrem 1 Gm/50 ml (Pmx)) 50 ml @ 100 mls/hr Q12 IVPB ; Start 05/14/17 at 21:00 Lidocaine (Xylocaine 1% (Mpf)) 5 ml ONCE ONCE SC ; Start 05/14/17 at 14:30; Stop 05/14/17 at 14:31 MILAGROS MUNOZ MD May 14, 2017 14:16
[2017-05-14] MEDS ORDERED: LIDOCAINE 1% (MPF) 5 ML VIAL SC ONE (14:30)
--- NOTE | 2017-05-14 14:55 | PN ---
Date/Time of Note Date/Time of Note DATE: 05/14/17 TIME: 14:38 Assessment/Plan Lines/Catheters IV Catheter Type (from Nrs): Mid Line Collazo in Place (from Nrs): Yes Assessment/Plan Chief Complaint/Hosp Course 1. G-tube dislodgement: replaced with gjtube by GI, copious amount of coffee ground drainage peristomal -surgical placement of jtube when medically stable 2. Septic shock: multifactorial: 2/2: pneumonia + cellulitis + wounds; on pressors -abx -supportive 3. Respiratory failure with trach: PNA wtih pulm edema; comfortable on vent -pulmonary toilet -abx -supportive 4.STARLA with CKD; +urine output; cr improving -judicious fluids -renally dose meds -per nephrology 5. Leukopenia:2/2 #2, worse -support -as above 4. Hypernatremia: improved 5. Normocytic anemia: coffee ground drainage peristoma; h/h stable -monitor and transfuse as needed -continue Epogen 6. Hypokalemia, minimally improved -optimize lytes 7. CHF -supportive -f/u cardiology 8. Diabetes: well controlled: 1 episode of hypoglycemia 9. Acute encephalopathy with history of advanced dementia. -supportive 10. Coronary artery disease. 11. Decubitus wound. Continue wound care. 12. r/o scabies: treated prophylactically 13. Thrombocytopenia 14. Peristomal cellulitis 2/2 #1 -local care -abx Patient seen and examined in collaboration with Dr. Meliton Blackburn Problems: Subjective 24 Hr Interval Summary Hypotensive, still on pressors. Continued leak peristoma, leukopenia, cough, comfortable on vent. Nonverbal indicators of pain not present. No fevers, chills , vomiting, diarrhea. Exam/Review of Systems Vital Signs Vitals Vital Signs Date Time Temp Pulse Resp B/P Pulse Ox O2 Delivery O2 Flow Rate FiO2 05/14/17 12:00 78 05/14/17 11:00 13 100 30 05/14/17 09:45 97/35 05/14/17 09:00 Mechanical Ventilator 05/14/17 08:00 97.6 Intake and Output 05/13/17 05/13/17 05/14/17 15:00 23:00 07:00 Intake Total 1024 ml 872.97 ml 814.64 ml Output Total 1300 ml 560 ml Balance 1024 ml -427.03 ml 254.64 ml Exam Free Text/Dictation Constitutional: alert, non-verbal, No oriented Psych: confusion Head: atraumatic, normocephalic Eyes: PERRL, nl sclera ENMT: mucosa pink and moist Neck: non-tender, other (trach), supple Respiratory: congested cough Cardiovascular: edema Gastrointestinal: distended (mod), other (peristomal leak: coffee ground drainage), soft, tender Musculoskeletal: No muscle tone Extremities: edema Neurological: No nl mental status, No nl speech Skin: other (abdominal/peristomal/breast fold redness, moist; ) Results Result Diagram: 05/14/17 0613 05/14/17 0613 SHADI CALDERON NP May 14, 2017 14:48
[2017-05-14] MEDS: MAGNESIUM HYDROXIDE 30ML CUP GTB SCH (16:50)
[2017-05-14] MEDS: BISACODYL 10 MG SUPP PR SCH (16:50)
--- NOTE | 2017-05-14 19:56 | CONS ---
Date/Time of Note Date/Time of Note DATE: 05/14/17 TIME: 19:54 Assessment/Plan Assessment/Plan Chief Complaint/Hosp Course This 69-year-old female with a history of CVA vent dependent respiratory failure , was brought to the emergency room for the dislodgment of the GJ tube. Patient is nonverbal and no information can be obtained. No GI bleeding no chest pain no shortness of breath. Problems: Additional Assessment/Plan Additional Assessment/Plan 1. Dislodged of the GJ tube accidentally 2. Vent dependent respiratory failure 3. Chronic encephalopathy 4. Renal failure 5. Peripheral vascular disease 6. Anemia 7. Hypertension patient is still on dopamine Plan GJ tube, could not be done. GI lab did not have GJ tube. Hospital did not have GJ tube I will bring it from other facility. Case discussed with Dr. Blackburn and told him to proceed with jejunostomy tube, [facility] does not have GJ tube and because of her anatomy it is technically difficult to prevent the leakage around G-tube site Jejunostomy tube as per surgeon. Consultation Date/Type/Reason Admit Date/Time May 06, 2017 at 16:34 Type of Consultation: ID [id number] HR Interval Summary Subjective hx not possible: pt non-verbal, pt critical Exam/Review of Systems Vital Signs Vitals Vital Signs Date Time Temp Pulse Resp B/P Pulse Ox O2 Delivery O2 Flow Rate FiO2 05/14/17 19:05 73 12 100 30 05/14/17 17:45 87/46 05/14/17 17:00 Mechanical Ventilator 05/14/17 16:00 97.8 Intake and Output 05/13/17 05/13/17 05/14/17 15:00 23:00 07:00 Intake Total 1024 ml 872.97 ml 814.64 ml Output Total 1300 ml 560 ml Balance 1024 ml -427.03 ml 254.64 ml Exam Constitutional: alert, oriented, well developed Psych: nl mood/affect, no complaints Head: atraumatic, normocephalic Eyes: EOMI, PERRL, nl conjunctiva, nl lids, nl sclera ENMT: nl external ears & nose, nl lips & teeth, nl nasal mucosa & septum Neck: non-tender, supple Respiratory: clear to auscultation, normal air movement Cardiovascular: nl pulses, regular rate and rhythm Gastrointestinal: nl liver, spleen, non-tender, soft Musculoskeletal: nl extremities to inspection, nl gait and stance Extremities: normal pulses Neurological: CROP PICKER II-XII intact, nl mental status, nl speech, nl strength Skin: nl turgor, No rash or lesions Lymph: nl lymph nodes Results Result Diagram: 05/14/17 0613 05/14/17 0613 Results 24 hrs Laboratory Tests Test 05/13/17 21:15 05/14/17 01:42 05/14/17 06:13 05/14/17 06:31 Bedside Glucose 78 76 77 White Blood Count 2.9 L Red Blood Count 2.96 L Hemoglobin 8.6 L Hematocrit 27.3 L Mean Corpuscular Volume 92.2 Mean Corpuscular Hemoglobin 29.1 Mean Corpuscular Hemoglobin Concent 31.5 L Red Cell Distribution Width 18.7 H Platelet Count 62 L Mean Platelet Volume 10.5 H Neutrophils % 42.9 Lymphocytes % 25.0 Monocytes % 8.2 Eosinophils % 23.3 H Basophils % 0.3 Nucleated Red Blood Cells % 0.0 Neutrophils # 1.3 L Lymphocytes # 0.7 L Monocytes # 0.2 L Eosinophils # 0.7 H Basophils # 0.0 Nucleated Red Blood Cells # 0.0 Sodium Level 144 Potassium Level 3.4 L Chloride Level 109 Carbon Dioxide Level 21 Anion Gap 17 H Blood Urea Nitrogen 57 H Creatinine 2.52 H Glucose Level 72 Calcium Level 8.6 Phosphorus Level 6.1 H Magnesium Level 1.9 Test 05/14/17 08:43 05/14/17 12:03 05/14/17 12:22 05/14/17 16:15 Bedside Glucose 74 66 L 114 74 Medications Medications Current Medications Atorvastatin Calcium (Lipitor) 10 mg QHS GTB Last administered on 05/13/17 20: 31; Admin Dose 10 MG; Start 05/06/17 at 21:00 Bisacodyl (Dulcolax Supp) 10 mg Q48H [place] Last administered on 05/12/17 17:57; Admin Dose 10 MG; Start 05/06/17 at 17:00 Carbidopa/Levodopa (Sinemet (25/ 100)) 1 tab TID GTB Last administered on 09:00; Admin Dose 1 TAB; Start 05/06/17 at 21:00 Clopidogrel Bisulfate (plaVIX) 75 mg DAILY GTB Last administered on 05/14/17 09:00; Admin Dose 75 MG; Start 05/07/17 at 09:00 Donepezil HCl (Aricept) 10 mg QHS GTB Last administered on 05/13/17 20:30; Admin Dose 10 MG; Start 05/06/17 at 21:00 Ferrous Sulfate (Ferrous Sulfate (Ec)) 325 mg BID PO Last administered on 09:00; Admin Dose 325 MG; Start 05/06/17 at 21:00 Folic Acid (Folic Acid) 1 mg DAILY GTB Last administered on 05/14/17 09:00; Admin Dose 1 MG; Start 05/07/17 at 09:00 Lactobacillus Acidophilus/ Rhamnosus (Culturelle) 1 cap QHS GTB Last administered on 05/12/17 20:28; Admin Dose 1 CAP; Start 05/06/17 at 21:00 Magnesium Hydroxide (Milk Of Mag) 30 ml Q24H GTB Last administered on 17:57; Admin Dose 30 ML; Start 05/06/17 at 17:00 Memantine (Namenda) 5 mg QAM GTB Last administered on 05/14/17 09:00; Admin Dose 5 MG; Start 05/07/17 at 09:00 Metoprolol Tartrate (Lopressor) 25 mg Q12H GTB ; Start 05/06/17 at 17:00 Multivit/Ca Carb/ B Cmplx/FA/Prenat (Radhika-John) 1 tab DAILY GTB Last administered on 05/14/17 08:59; Admin Dose 1 TAB; Start 05/07/17 at 09:00 Pramipexole (Mirapex) 0.5 mg DAILY GTB Last administered on 05/14/17 09:00; Admin Dose 0.5 MG; Start 05/07/17 at 09:00 Sodium Biphosphate/ Sodium Phosphate (Fleet Enema Pediatric) 118 ml Q72H PRN [place] CONSTIPATION; Start 05/06/17 at 17:00 Citric Acid/ Sodium Citrate (Bicitra) 30 ml BID PO Last administered on 09:00; Admin Dose 30 ML; Start 05/06/17 at 21:00 Heparin Sodium (Porcine) (Heparin (5000 Units/0.5 ml)) 5,000 unit BID SC Last administered on 05/14/17 09:27; Admin Dose 5,000 UNIT; Start 05/06/17 at 21:00 Nystatin (Nystatin Powder) 1 applic BID TOP Last administered on 05/14/17 09: 09; Admin Dose 1 APPLIC; Start 05/09/17 at 21:00 Mupirocin (Bactroban) 1 applic BID TOP Last administered on 05/14/17 09:09; Admin Dose 1 APPLIC; Start 05/09/17 at 12:30 Collagenase (Santyl) 1 applic DAILY TOP Last administered on 05/14/17 09:10; Admin Dose 1 APPLIC; Start 05/09/17 at 15:00 Collagenase 1 applic 1 applic PRN PRN TOP WOUND CARE; Start 05/09/17 at 14:00 Sodium Chloride 1,000 ml @ 0 mls/hr Q0M IV ; Start 05/09/17 at 18:18 Sodium Chloride 1,000 ml @ 100 mls/hr Q10H IV Last administered on 05/14/17 07:07; Admin Dose 100 MLS/HR; Start 05/10/17 at 07:00 Norepinephrine 16 mg/Dextrose 500 ml @ 1.87 mls/hr TITRATE IV ; Start 05/10/17 at 14:00 Dopamine HCl/ Dextrose 250 ml @ 6.848 mls/ hr TITRATE IV Last administered on 05/14/17 07:11; Admin Dose 15.407 MLS/HR; Start 05/10/17 at 18:30 Diagnostic Test (Pha) (Accu-Chek) 1 ea 02 XX Last administered on 05/14/17 01: 44; Admin Dose 1 EA; Start 05/12/17 at 02:00 Insulin Aspart (Novolog Insulin Pen) NOVOLOG *MILD* ALGORI... Q4 SC ; Start at 09:00 Miscellaneous Information 1 ea NOTE XX ; Start 05/11/17 at 08:00 Glucose (Glutose) 15 gm Q15M PRN PO DECREASED GLUCOSE; Start 05/11/17 at 08:00 Glucose (Glutose) 22.5 gm Q15M PRN PO DECREASED GLUCOSE; Start 05/11/17 at 08: 00 Dextrose (D50w Syringe) 25 ml Q15M PRN IV DECREASED GLUCOSE Last administered on 05/14/17 12:10; Admin Dose 25 ML; Start 05/11/17 at 08:00 Dextrose (D50w Syringe) 50 ml Q15M PRN IV DECREASED GLUCOSE; Start 05/11/17 at 08:00 Glucagon (Glucagen) 1 mg Q15M PRN IM DECREASED GLUCOSE; Start 05/11/17 at 08:00 Glucose (Glutose) 15 gm Q15M PRN BUCCAL DECREASED GLUCOSE; Start 05/11/17 at 08 :00 Epoetin Vasyl (Epogen (Esrd)) 10,000 units MoWeFr@17 [place] Last administered on t 16:55; Admin Dose 10,000 UNITS; Start 05/13/17 at 17:00 Miscellaneous Information VANCOMYCIN RANDOM ON 04/21... ONCE ONCE XX ; Start at 05:00; Stop 05/15/17 at 05:01 Meropenem/Sodium Chloride (Merrem 1 Gm/50 ml (Pmx)) 50 ml @ 100 mls/hr Q12 IVPB ; Start 05/14/17 at 21:00 SYLWIA SY MD May 14, 2017 19:56
[2017-05-14] MEDS: DONEPEZIL 10 MG TAB GTB SCH (21:00)
[2017-05-14] MEDS: LACTOBACILLUS RHAMNOSUS CAP GTB SCH (21:00)
[2017-05-14] MEDS ORDERED: MEROPENEM 500MG/50 ML (PMX) 50 ML IVPB SCH (21:00)
[2017-05-14] MEDS: ATORVASTATIN 10 MG TAB GTB SCH (21:00)
[2017-05-15] VITALS (89 sets, daily range): BP systolic 48–142; BP diastolic 31–73; PULSE 71–78; RESP 4–22
[2017-05-15] MEDS: DEXTROSE 50% 50 ML SYRINGE IV PRN ×2 (00:11→04:08)
[2017-05-15] MEDS: INSULIN ASPART [NOVOLOG] 3 ML PEN SC SCH ×6 (01:00→20:50)
[2017-05-15] MEDS: ACCU-CHEK XX SCH (02:00)
[2017-05-15] MEDS: METOPROLOL 25 MG TAB GTB SCH ×2 (05:00→17:00)
[2017-05-15 05:26] LABS: ABNORMAL IP MESSAGE 1; BASOPHILS % 0.3 % (0.0-2.0); EOSINOPHILS # 1.1 10^3/ul (0.0-0.5); EOSINOPHILS % 28.1 % (0.0-7.0); HEMATOCRIT 26.2 % (37.0-47.0); LYMPHOCYTES # 0.6 10^3/ul (0.8-2.9); MEAN CORPUSCULAR HEMOGLOBIN 28.5 pg (29.0-33.0); MEAN CORPUSCULAR HGB CONC 30.5 g/dl (32.0-37.0); MEAN CORPUSCULAR VOLUME 93.2 fl (82.0-101.0); MEAN PLATELET VOLUME 11.1 fl (7.4-10.4); MONOCYTE # 0.2 10^3/ul (0.3-0.9); MONOCYTES % 4.7 % (0.0-11.0); NEUTROPHIL # 1.9 10^3/ul (1.6-7.5); NEUTROPHILS % 50.4 % (39.0-77.0); PLATELET COUNT 62 10^3/UL (140-415); RED BLOOD COUNT 2.81 10^6/ul (4.20-5.40); RED CELL DISTRIBUTION WIDTH 18.6 % (11.5-14.5); WHITE BLOOD COUNT 3.8 10^3/ul (4.8-10.8)
[2017-05-15 05:35] LABS: POSITIVE DIFF @See below
[2017-05-15 05:45] LABS: CALCIUM 8.3 mg/dl (8.4-10.2); CREATININE 2.32 mg/dl (0.44-1.00); MAGNESIUM 1.8 mg/dl (1.7-2.5); PHOSPHORUS 6.1 mg/dl (2.5-4.9); POTASSIUM 3.3 mmol/L (3.5-5.1)
[2017-05-15] MEDS: SOD CHLORIDE 0.45% 1,000 ML IV SCH (07:00)
--- NOTE | 2017-05-15 07:32 | PN ---
Date/Time of Note Date/Time of Note DATE: 05/15/17 TIME: 07:29 Assessment/Plan VTE Prophylaxis VTE Prophylaxis Intervention: other Lines/Catheters IV Catheter Type (from Nrs): Mid Line Urinary Cath still in place: Yes Reason Cath still needed: other (indicate) Assessment/Plan Chief Complaint/Hosp Course 1. hypoxemic resp failure: s/p trach 2. Pafib; currently in NSR 3. hx HTN: now in shock and hypotensive. : STILL requires DOPAMINE DRIP 4. encephalopathy 5. renal failure: f/u with nephrology 6. dysphagia 7. G tube malfunction/ infection will cont dopamine drip and titrate off when BP stablizes. . . cont resp care nutritional support. CONT ICU care as long as pt is on pressors correct lytes prn f/u renal fx. Problems: Subjective 24 Hr Interval Summary Free Text/Dictation CARDIOLOGY FOLLOW UP NOTE: Discussed with staff and rhythm was reviewed pt remains in NSR. NO AFIB seen NONVERBAL. pt is still ICU on dopamine drip and unable to wean off OBJECTIVE: General: no acute distress HEENT: NC/AT. NECK: NO JVD. no stridor. S/P trach on vent CV: RRR. systolic murmur; no gallop or rubs. PULM: no wheezing anteriorly GI: SOFT, NT, ND, no rebound or guarding s/p PEG Extremity: + B/L LE edema. no clubbing. neuro: opens her eyes to painful stimuli. does not follow commands Psych: calm rectal: deferred Exam/Review of Systems Vital Signs Vitals Vital Signs Date Time Temp Pulse Resp B/P Pulse Ox O2 Delivery O2 Flow Rate FiO2 05/15/17 06:30 75 19 107/34 100 05/15/17 06:00 Mechanical Ventilator 05/15/17 05:53 30 05/15/17 04:00 97.3 Intake and Output 05/14/17 05/14/17 05/15/17 15:00 23:00 07:00 Intake Total 1219.78 ml 695.2 ml 792.4 ml Output Total 725 ml 380 ml 250 ml Balance 494.78 ml 315.2 ml 542.4 ml Results Result Diagram: 05/15/17 0508 05/15/17 0508 Results 24 hrs Laboratory Tests Test 05/14/17 08:43 05/14/17 12:03 05/14/17 12:22 05/14/17 16:15 Bedside Glucose 74 66 L 114 74 Test 05/14/17 19:53 05/14/17 23:51 05/15/17 00:36 05/15/17 03:58 Bedside Glucose 80 65 L 113 68 L Test 05/15/17 04:33 05/15/17 05:08 Bedside Glucose 127 White Blood Count 3.8 #L Red Blood Count 2.81 L Hemoglobin 8.0 L Hematocrit 26.2 L Mean Corpuscular Volume 93.2 Mean Corpuscular Hemoglobin 28.5 L Mean Corpuscular Hemoglobin Concent 30.5 L Red Cell Distribution Width 18.6 H Platelet Count 62 L Mean Platelet Volume 11.1 H Neutrophils % 50.4 Lymphocytes % 16.0 Monocytes % 4.7 Eosinophils % 28.1 H Basophils % 0.3 Nucleated Red Blood Cells % 0.0 Neutrophils # 1.9 Lymphocytes # 0.6 L Monocytes # 0.2 L Eosinophils # 1.1 H Basophils # 0.0 Nucleated Red Blood Cells # 0.0 Sodium Level 144 Potassium Level 3.3 L Chloride Level 108 Carbon Dioxide Level 22 Anion Gap 17 H Blood Urea Nitrogen 51 H Creatinine 2.32 H Glucose Level 102 Calcium Level 8.3 L Phosphorus Level 6.1 H Magnesium Level 1.8 Random Vancomycin Level 44.6 Medications Medications Current Medications Atorvastatin Calcium (Lipitor) 10 mg QHS GTB Last administered on 05/13/17 20: 31; Admin Dose 10 MG; Start 05/06/17 at 21:00 Bisacodyl (Dulcolax Supp) 10 mg Q48H [place] Last administered on 05/12/17 17:57; Admin Dose 10 MG; Start 05/06/17 at 17:00 Carbidopa/Levodopa (Sinemet (25/ 100)) 1 tab TID GTB Last administered on 09:00; Admin Dose 1 TAB; Start 05/06/17 at 21:00 Clopidogrel Bisulfate (plaVIX) 75 mg DAILY GTB Last administered on 05/14/17 09:00; Admin Dose 75 MG; Start 05/07/17 at 09:00 Donepezil HCl (Aricept) 10 mg QHS GTB Last administered on 05/13/17 20:30; Admin Dose 10 MG; Start 05/06/17 at 21:00 Ferrous Sulfate (Ferrous Sulfate (Ec)) 325 mg BID PO Last administered on 09:00; Admin Dose 325 MG; Start 05/06/17 at 21:00 Folic Acid (Folic Acid) 1 mg DAILY GTB Last administered on 05/14/17 09:00; Admin Dose 1 MG; Start 05/07/17 at 09:00 Lactobacillus Acidophilus/ Rhamnosus (Culturelle) 1 cap QHS GTB Last administered on 05/12/17 20:28; Admin Dose 1 CAP; Start 05/06/17 at 21:00 Magnesium Hydroxide (Milk Of Mag) 30 ml Q24H GTB Last administered on 17:57; Admin Dose 30 ML; Start 05/06/17 at 17:00 Memantine (Namenda) 5 mg QAM GTB Last administered on 05/14/17 09:00; Admin Dose 5 MG; Start 05/07/17 at 09:00 Metoprolol Tartrate (Lopressor) 25 mg Q12H GTB ; Start 05/06/17 at 17:00 Multivit/Ca Carb/ B Cmplx/FA/Prenat (Radhika-John) 1 tab DAILY GTB Last administered on 05/14/17 08:59; Admin Dose 1 TAB; Start 05/07/17 at 09:00 Pramipexole (Mirapex) 0.5 mg DAILY GTB Last administered on 05/14/17 09:00; Admin Dose 0.5 MG; Start 05/07/17 at 09:00 Sodium Biphosphate/ Sodium Phosphate (Fleet Enema Pediatric) 118 ml Q72H PRN [place] CONSTIPATION; Start 05/06/17 at 17:00 Citric Acid/ Sodium Citrate (Bicitra) 30 ml BID PO Last administered on 09:00; Admin Dose 30 ML; Start 05/06/17 at 21:00 Heparin Sodium (Porcine) (Heparin (5000 Units/0.5 ml)) 5,000 unit BID SC Last administered on 05/14/17 22:43; Admin Dose 5,000 UNIT; Start 05/06/17 at 21:00 Nystatin (Nystatin Powder) 1 applic BID TOP Last administered on 05/14/17 22: 57; Admin Dose 1 APPLIC; Start 05/09/17 at 21:00 Mupirocin (Bactroban) 1 applic BID TOP Last administered on 05/14/17 22:46; Admin Dose 1 APPLIC; Start 05/09/17 at 12:30 Collagenase (Santyl) 1 applic DAILY TOP Last administered on 05/14/17 09:10; Admin Dose 1 APPLIC; Start 05/09/17 at 15:00 Collagenase 1 applic 1 applic PRN PRN TOP WOUND CARE; Start 05/09/17 at 14:00 Sodium Chloride 1,000 ml @ 0 mls/hr Q0M IV ; Start 05/09/17 at 18:18 Sodium Chloride 1,000 ml @ 100 mls/hr Q10H IV Last administered on 05/14/17 22:58; Admin Dose 100 MLS/HR; Start 05/10/17 at 07:00 Norepinephrine 16 mg/Dextrose 500 ml @ 1.87 mls/hr TITRATE IV ; Start 05/10/17 at 14:00 Dopamine HCl/ Dextrose 250 ml @ 6.848 mls/ hr TITRATE IV Last administered on 05/14/17 07:11; Admin Dose 15.407 MLS/HR; Start 05/10/17 at 18:30 Diagnostic Test (Pha) (Accu-Chek) 1 ea 02 XX Last administered on 05/14/17 01: 44; Admin Dose 1 EA; Start 05/12/17 at 02:00 Insulin Aspart (Novolog Insulin Pen) NOVOLOG *MILD* ALGORI... Q4 SC ; Start at 09:00 Miscellaneous Information 1 ea NOTE XX ; Start 05/11/17 at 08:00 Glucose (Glutose) 15 gm Q15M PRN PO DECREASED GLUCOSE; Start 05/11/17 at 08:00 Glucose (Glutose) 22.5 gm Q15M PRN PO DECREASED GLUCOSE; Start 05/11/17 at 08: 00 Dextrose (D50w Syringe) 25 ml Q15M PRN IV DECREASED GLUCOSE Last administered on 05/15/17 04:08; Admin Dose 25 ML; Start 05/11/17 at 08:00 Dextrose (D50w Syringe) 50 ml Q15M PRN IV DECREASED GLUCOSE Last administered on 05/15/17 00:11; Admin Dose 50 ML; Start 05/11/17 at 08:00 Glucagon (Glucagen) 1 mg Q15M PRN IM DECREASED GLUCOSE; Start 05/11/17 at 08:00 Glucose (Glutose) 15 gm Q15M PRN BUCCAL DECREASED GLUCOSE; Start 05/11/17 at 08 :00 Epoetin Vasyl 75271 units 10,000 units MoWeFr@17 [place] Last administered on 16:55; Admin Dose 10,000 UNITS; Start 05/13/17 at 17:00 Meropenem/Sodium Chloride (Merrem 1 Gm/50 ml (Pmx)) 50 ml @ 100 mls/hr Q12 IVPB Last administered on 05/14/17 22:50; Admin Dose 100 MLS/HR; Start at 21:00 MILAGROS MUNOZ MD May 15, 2017 07:32
--- NOTE | 2017-05-15 08:45 | PN ---
Date/Time of Note Date/Time of Note DATE: 05/15/17 TIME: 08:43 Assessment/Plan VTE Prophylaxis VTE Prophylaxis Intervention: other Lines/Catheters IV Catheter Type (from Nrsg): Mid Line Urinary Cath still in place: Yes Reason Cath still needed: other (indicate) Assessment/Plan Chief Complaint/Hosp Course 1. Septic shock Etiology likely multifactorial, pneumonia, cellulitis, wounds, Unable to be weaned off pressors Continue IV fluids, broad-spectrum antibiotics CT abdomen shows no acute intra-abdominal process Follow-up with infectious disease, monitor serial lactic acid levels dysphagia- g tube dislodged, Continue to monitor Follow-up with GI Patient continues to have leak around ostomy site general surgery was consulted planning for J-tube placement once clinically stable Acute hypoxemic respiratory failure status post trach Vent settings ABGs been reviewed Follow-up with pulmonary 3. Nonoliguric acute kidney injury on top of chronic kidney disease stage 4. Etiology hemodynamics, possible progression of disease Urinary output improved Continue to monitor closely No immediate need for renal replacement therapy at this time 4. Hypernatremia Continue hypotonic fluid 5. r/o scabies -treat with permethrin -id consult 6. chf -cont med/royce -f/u cardiology Intermittent diuresis in the setting of pressors Right large pleural effusion Consider thoracentesis Monitor closely on diuretics 8. Acute encephalopathy and advanced dementia. Etiology is toxic metabolic. Continue to monitor. 9. Mineral bone disorder. Continue to monitor calcium and phosphorus levels. 10. Anemia./Pancytopenia Will continue to monitor H and H levels. Continue Epogen. Monitor closely 11. Coronary artery disease. Continue medical management. 12. Diabetes. Continue Accu-Cheks and insulin sliding scale. 13. Decubitus wound. Continue wound care. Gastrointestinal and deep venous thrombosis prophylaxis. Continue proton pump inhibitor and heparin. Hypomagnesemia Replete magnesium sulfate as needed Disposition. Patient has poor prognosis, will discuss with patient's son overall goals of care Please note spent over 40 minutes of critical care time with this patient Problems: Subjective 24 Hr Interval Summary Free Text/Dictation Patient seen and examined Remains on pressure support unable to be weaned off Patient's pending J-tube placement was clinically stable No other events noted Exam/Review of Systems Vital Signs Vitals Vital Signs Date Time Temp Pulse Resp B/P Pulse Ox O2 Delivery O2 Flow Rate FiO2 05/15/17 08:00 30 05/15/17 06:30 75 19 107/34 100 05/15/17 06:00 Mechanical Ventilator 05/15/17 04:00 97.3 Intake and Output 05/14/17 05/14/17 05/15/17 15:00 23:00 07:00 Intake Total 1219.78 ml 695.2 ml 792.4 ml Output Total 725 ml 380 ml 250 ml Balance 494.78 ml 315.2 ml 542.4 ml Exam HEENT: Head is normocephalic, NECK: Supple., Positive trach HEART: Irregular LUNGS: Show diminished breath sounds at base. ABDOMEN: Soft, nontender to palpation without rebound or guarding. Positive G- tube EXTREMITIES: Negative for clubbing, cyanosis. Positive edema/anasarca DERMATOLOGIC: No rashes. MUSCULOSKELETAL: No joint effusions, NEUROLOGIC: No change in exam Results Result Diagram: 05/15/17 0508 05/15/17 0508 Results 24 hrs Laboratory Tests Test 05/14/17 12:03 05/14/17 12:22 05/14/17 16:15 05/14/17 19:53 Bedside Glucose 66 L 114 74 80 Test 05/14/17 23:51 05/15/17 00:36 05/15/17 03:58 05/15/17 04:33 Bedside Glucose 65 L 113 68 L 127 Test 05/15/17 05:08 White Blood Count 3.8 #L Red Blood Count 2.81 L Hemoglobin 8.0 L Hematocrit 26.2 L Mean Corpuscular Volume 93.2 Mean Corpuscular Hemoglobin 28.5 L Mean Corpuscular Hemoglobin Concent 30.5 L Red Cell Distribution Width 18.6 H Platelet Count 62 L Mean Platelet Volume 11.1 H Neutrophils % 50.4 Lymphocytes % 16.0 Monocytes % 4.7 Eosinophils % 28.1 H Basophils % 0.3 Nucleated Red Blood Cells % 0.0 Neutrophils # 1.9 Lymphocytes # 0.6 L Monocytes # 0.2 L Eosinophils # 1.1 H Basophils # 0.0 Nucleated Red Blood Cells # 0.0 Sodium Level 144 Potassium Level 3.3 L Chloride Level 108 Carbon Dioxide Level 22 Anion Gap 17 H Blood Urea Nitrogen 51 H Creatinine 2.32 H Glucose Level 102 Calcium Level 8.3 L Phosphorus Level 6.1 H Magnesium Level 1.8 Random Vancomycin Level 44.6 Medications Medications Current Medications Atorvastatin Calcium (Lipitor) 10 mg QHS GTB Last administered on 05/13/17 20: 31; Admin Dose 10 MG; Start 05/06/17 at 21:00 Bisacodyl (Dulcolax Supp) 10 mg Q48H [place] Last administered on 05/12/17 17:57; Admin Dose 10 MG; Start 05/06/17 at 17:00 Carbidopa/Levodopa (Sinemet (25/ 100)) 1 tab TID GTB Last administered on 09:00; Admin Dose 1 TAB; Start 05/06/17 at 21:00 Clopidogrel Bisulfate (plaVIX) 75 mg DAILY GTB Last administered on 05/14/17 09:00; Admin Dose 75 MG; Start 05/07/17 at 09:00 Donepezil HCl (Aricept) 10 mg QHS GTB Last administered on 05/13/17 20:30; Admin Dose 10 MG; Start 05/06/17 at 21:00 Ferrous Sulfate (Ferrous Sulfate (Ec)) 325 mg BID PO Last administered on 09:00; Admin Dose 325 MG; Start 05/06/17 at 21:00 Folic Acid (Folic Acid) 1 mg DAILY GTB Last administered on 05/14/17 09:00; Admin Dose 1 MG; Start 05/07/17 at 09:00 Lactobacillus Acidophilus/ Rhamnosus (Culturelle) 1 cap QHS GTB Last administered on 05/12/17 20:28; Admin Dose 1 CAP; Start 05/06/17 at 21:00 Magnesium Hydroxide (Milk Of Mag) 30 ml Q24H GTB Last administered on 17:57; Admin Dose 30 ML; Start 05/06/17 at 17:00 Memantine (Namenda) 5 mg QAM GTB Last administered on 05/14/17 09:00; Admin Dose 5 MG; Start 05/07/17 at 09:00 Metoprolol Tartrate (Lopressor) 25 mg Q12H GTB ; Start 05/06/17 at 17:00 Multivit/Ca Carb/ B Cmplx/FA/Prenat (Radhika-John) 1 tab DAILY GTB Last administered on 05/14/17 08:59; Admin Dose 1 TAB; Start 05/07/17 at 09:00 Pramipexole (Mirapex) 0.5 mg DAILY GTB Last administered on 05/14/17 09:00; Admin Dose 0.5 MG; Start 05/07/17 at 09:00 Sodium Biphosphate/ Sodium Phosphate (Fleet Enema Pediatric) 118 ml Q72H PRN [place] CONSTIPATION; Start 05/06/17 at 17:00 Citric Acid/ Sodium Citrate (Bicitra) 30 ml BID PO Last administered on 09:00; Admin Dose 30 ML; Start 05/06/17 at 21:00 Heparin Sodium (Porcine) (Heparin (5000 Units/0.5 ml)) 5,000 unit BID SC Last administered on 05/14/17 22:43; Admin Dose 5,000 UNIT; Start 05/06/17 at 21:00 Nystatin (Nystatin Powder) 1 applic BID TOP Last administered on 05/14/17 22: 57; Admin Dose 1 APPLIC; Start 05/09/17 at 21:00 Mupirocin (Bactroban) 1 applic BID TOP Last administered on 05/14/17 22:46; Admin Dose 1 APPLIC; Start 05/09/17 at 12:30 Collagenase (Santyl) 1 applic DAILY TOP Last administered on 05/14/17 09:10; Admin Dose 1 APPLIC; Start 05/09/17 at 15:00 Collagenase 1 applic 1 applic PRN PRN TOP WOUND CARE; Start 05/09/17 at 14:00 Sodium Chloride 1,000 ml @ 0 mls/hr Q0M IV ; Start 05/09/17 at 18:18 Sodium Chloride 1,000 ml @ 100 mls/hr Q10H IV Last administered on 05/14/17 22:58; Admin Dose 100 MLS/HR; Start 05/10/17 at 07:00 Norepinephrine 16 mg/Dextrose 500 ml @ 1.87 mls/hr TITRATE IV ; Start 05/10/17 at 14:00 Dopamine HCl/ Dextrose 250 ml @ 6.848 mls/ hr TITRATE IV Last administered on 05/14/17 07:11; Admin Dose 15.407 MLS/HR; Start 05/10/17 at 18:30 Diagnostic Test (Pha) (Accu-Chek) 1 ea 02 XX Last administered on 05/14/17 01: 44; Admin Dose 1 EA; Start 05/12/17 at 02:00 Insulin Aspart (Novolog Insulin Pen) NOVOLOG *MILD* ALGORI... Q4 SC ; Start at 09:00 Miscellaneous Information 1 ea NOTE XX ; Start 05/11/17 at 08:00 Glucose (Glutose) 15 gm Q15M PRN PO DECREASED GLUCOSE; Start 05/11/17 at 08:00 Glucose (Glutose) 22.5 gm Q15M PRN PO DECREASED GLUCOSE; Start 05/11/17 at 08: 00 Dextrose (D50w Syringe) 25 ml Q15M PRN IV DECREASED GLUCOSE Last administered on 05/15/17 04:08; Admin Dose 25 ML; Start 05/11/17 at 08:00 Dextrose (D50w Syringe) 50 ml Q15M PRN IV DECREASED GLUCOSE Last administered on 05/15/17 00:11; Admin Dose 50 ML; Start 05/11/17 at 08:00 Glucagon (Glucagen) 1 mg Q15M PRN IM DECREASED GLUCOSE; Start 05/11/17 at 08:00 Glucose (Glutose) 15 gm Q15M PRN BUCCAL DECREASED GLUCOSE; Start 05/11/17 at 08 :00 Epoetin Vasyl 40726 units 10,000 units MoWeFr@17 SC Last administered on 16:55; Admin Dose 10,000 UNITS; Start 05/13/17 at 17:00 Meropenem/Sodium Chloride (Merrem 1 Gm/50 ml (Pmx)) 50 ml @ 100 mls/hr Q12 IVPB Last administered on 05/14/17 22:50; Admin Dose 100 MLS/HR; Start at 21:00 OSMAR MONTAGUE DO May 15, 2017 08:45
[2017-05-15] MEDS: PRAMIPEXOLE 0.25 MG TAB GTB SCH (08:49)
[2017-05-15] MEDS: FOLIC ACID 1 MG TAB GTB SCH (08:49)
[2017-05-15] MEDS: CITRIC ACID/NA CITRATE 30 ML CUP PO SCH ×2 (08:50→20:59)
[2017-05-15] MEDS: CLOPIDOGREL 75 MG TAB GTB SCH (08:50)
[2017-05-15] MEDS: MULTIVIT/CA CARB/B CMPLX/FA TAB GTB SCH (08:50)
[2017-05-15] MEDS: MEMANTINE 5 MG TAB GTB SCH (08:50)
[2017-05-15] MEDS: FERROUS SULFATE (EC) 325 MG TAB PO SCH ×2 (08:50→20:59)
[2017-05-15] MEDS: CARBIDOPA/LEVODOPA (25/100) TAB GTB SCH ×3 (08:50→20:59)
[2017-05-15] MEDS ORDERED: POTASSIUM CHLORIDE 250 ML IVPB ONE (09:00)
[2017-05-15] MEDS: MEROPENEM 1 GM/50ML(PMX) 50 ML IVPB SCH (09:08)
[2017-05-15] MEDS: HEPARIN 5,000 UNIT/0.5 ML VIAL SC SCH ×2 (09:15→20:54)
[2017-05-15] MEDS: NYSTATIN 30 GM POWDER BTL TOP SCH ×2 (09:15→22:08)
[2017-05-15] MEDS: MUPIROCIN 2% 22 GM OINT TOP SCH ×2 (09:15→21:00)
[2017-05-15] MEDS: COLLAGENASE 30 GM TUBE TOP SCH (09:16)
[2017-05-15] MEDS: DEXTROSE 5%-0.45% NACL 1,000 ML IV SCH (09:38)
--- NOTE | 2017-05-15 10:13 | CONS ---
Date/Time of Note Date/Time of Note DATE: 05/15/17 TIME: 10:11 Consult Date/Type/Reason Admit Date/Time May 06, 2017 at 16:34 Initial Consult Date 05/10/17 Type of Consultation: Pulmonary Subjective Continues vasopressors. G-tube not replaced secondary to hemodynamic instability. Neurologically no changes. Objective Vital Signs Date Time Temp Pulse Resp B/P Pulse Ox O2 Delivery O2 Flow Rate FiO2 05/15/17 09:30 77 12 105/31 100 05/15/17 09:00 Mechanical Ventilator 05/15/17 08:00 97.9 05/15/17 08:00 30 Intake and Output 05/14/17 05/14/17 05/15/17 15:00 23:00 07:00 Intake Total 1219.78 ml 695.2 ml 907.8 ml Output Total 725 ml 380 ml 250 ml Balance 494.78 ml 315.2 ml 657.8 ml Exam PHYSICAL EXAMINATION GENERAL: Elderly lady on mechanical ventilation via tracheostomy somnolent VITAL SIGNS: see below. HEENT: Pupils equal, round, and reactive to light. Tracheostomy site clean and intact. CARDIAC: S1, S2, 1/6 systolic ejection murmur CHEST: Diminished air entry bilaterally. ABDOMEN: Diminished bowel sounds. EXTREMITIES: No cyanosis, clubbing edema +1 NEUROLOGIC: Generalized weakness Results/Medications Result Diagram: 05/15/17 0508 05/15/17 0508 Results 24 hrs Laboratory Tests Test 05/14/17 12:03 05/14/17 12:22 05/14/17 16:15 05/14/17 19:53 Bedside Glucose 66 L 114 74 80 Test 05/14/17 23:51 05/15/17 00:36 05/15/17 03:58 05/15/17 04:33 Bedside Glucose 65 L 113 68 L 127 Test 05/15/17 05:08 05/15/17 09:10 White Blood Count 3.8 #L Red Blood Count 2.81 L Hemoglobin 8.0 L Hematocrit 26.2 L Mean Corpuscular Volume 93.2 Mean Corpuscular Hemoglobin 28.5 L Mean Corpuscular Hemoglobin Concent 30.5 L Red Cell Distribution Width 18.6 H Platelet Count 62 L Mean Platelet Volume 11.1 H Neutrophils % 50.4 Lymphocytes % 16.0 Monocytes % 4.7 Eosinophils % 28.1 H Basophils % 0.3 Nucleated Red Blood Cells % 0.0 Neutrophils # 1.9 Lymphocytes # 0.6 L Monocytes # 0.2 L Eosinophils # 1.1 H Basophils # 0.0 Nucleated Red Blood Cells # 0.0 Sodium Level 144 Potassium Level 3.3 L Chloride Level 108 Carbon Dioxide Level 22 Anion Gap 17 H Blood Urea Nitrogen 51 H Creatinine 2.32 H Glucose Level 102 Calcium Level 8.3 L Phosphorus Level 6.1 H Magnesium Level 1.8 Random Vancomycin Level 44.6 Bedside Glucose 81 Medications Current Medications Atorvastatin Calcium (Lipitor) 10 mg QHS GTB Last administered on 05/13/17 20: 31; Admin Dose 10 MG; Start 05/06/17 at 21:00 Bisacodyl (Dulcolax Supp) 10 mg Q48H DC Last administered on 05/12/17 17:57; Admin Dose 10 MG; Start 05/06/17 at 17:00 Carbidopa/Levodopa (Sinemet (25/ 100)) 1 tab TID GTB Last administered on 09:00; Admin Dose 1 TAB; Start 05/06/17 at 21:00 Clopidogrel Bisulfate (plaVIX) 75 mg DAILY GTB Last administered on 05/14/17 09:00; Admin Dose 75 MG; Start 05/07/17 at 09:00 Donepezil HCl (Aricept) 10 mg QHS GTB Last administered on 05/13/17 20:30; Admin Dose 10 MG; Start 05/06/17 at 21:00 Ferrous Sulfate (Ferrous Sulfate (Ec)) 325 mg BID PO Last administered on 09:00; Admin Dose 325 MG; Start 05/06/17 at 21:00 Folic Acid (Folic Acid) 1 mg DAILY GTB Last administered on 05/14/17 09:00; Admin Dose 1 MG; Start 05/07/17 at 09:00 Lactobacillus Acidophilus/ Rhamnosus (Culturelle) 1 cap QHS GTB Last administered on 05/12/17 20:28; Admin Dose 1 CAP; Start 05/06/17 at 21:00 Magnesium Hydroxide (Milk Of Mag) 30 ml Q24H GTB Last administered on 17:57; Admin Dose 30 ML; Start 05/06/17 at 17:00 Memantine (Namenda) 5 mg QAM GTB Last administered on 05/14/17 09:00; Admin Dose 5 MG; Start 05/07/17 at 09:00 Metoprolol Tartrate (Lopressor) 25 mg Q12H GTB ; Start 05/06/17 at 17:00 Multivit/Ca Carb/ B Cmplx/FA/Prenat (Radhika-John) 1 tab DAILY GTB Last administered on 05/14/17 08:59; Admin Dose 1 TAB; Start 05/07/17 at 09:00 Pramipexole (Mirapex) 0.5 mg DAILY GTB Last administered on 05/14/17 09:00; Admin Dose 0.5 MG; Start 05/07/17 at 09:00 Sodium Biphosphate/ Sodium Phosphate (Fleet Enema Pediatric) 118 ml Q72H PRN [place] CONSTIPATION; Start 05/06/17 at 17:00 Citric Acid/ Sodium Citrate (Bicitra) 30 ml BID PO Last administered on 09:00; Admin Dose 30 ML; Start 05/06/17 at 21:00 Heparin Sodium (Porcine) (Heparin (5000 Units/0.5 ml)) 5,000 unit BID SC Last administered on 05/15/17 09:15; Admin Dose 5,000 UNIT; Start 05/06/17 at 21:00 Nystatin (Nystatin Powder) 1 applic BID TOP Last administered on 05/15/17 09: 15; Admin Dose 1 APPLIC; Start 05/09/17 at 21:00 Mupirocin (Bactroban) 1 applic BID TOP Last administered on 05/15/17 09:15; Admin Dose 1 APPLIC; Start 05/09/17 at 12:30 Collagenase (Santyl) 1 applic DAILY TOP Last administered on 05/15/17 09:16; Admin Dose 1 APPLIC; Start 05/09/17 at 15:00 Collagenase 1 applic 1 applic PRN PRN TOP WOUND CARE; Start 05/09/17 at 14:00 Sodium Chloride 1,000 ml @ 0 mls/hr Q0M IV ; Start 05/09/17 at 18:18 Norepinephrine 16 mg/Dextrose 500 ml @ 1.87 mls/hr TITRATE IV ; Start 05/10/17 at 14:00 Dopamine HCl/ Dextrose 250 ml @ 6.848 mls/ hr TITRATE IV Last administered on 05/14/17 07:11; Admin Dose 15.407 MLS/HR; Start 05/10/17 at 18:30 Diagnostic Test (Pha) (Accu-Chek) 1 ea 02 XX Last administered on 05/14/17 01: 44; Admin Dose 1 EA; Start 05/12/17 at 02:00 Insulin Aspart (Novolog Insulin Pen) NOVOLOG *MILD* ALGORI... Q4 SC ; Start at 09:00 Miscellaneous Information 1 ea NOTE XX ; Start 05/11/17 at 08:00 Glucose (Glutose) 15 gm Q15M PRN PO DECREASED GLUCOSE; Start 05/11/17 at 08:00 Glucose (Glutose) 22.5 gm Q15M PRN PO DECREASED GLUCOSE; Start 05/11/17 at 08: 00 Dextrose (D50w Syringe) 25 ml Q15M PRN IV DECREASED GLUCOSE Last administered on 05/15/17 04:08; Admin Dose 25 ML; Start 05/11/17 at 08:00 Dextrose (D50w Syringe) 50 ml Q15M PRN IV DECREASED GLUCOSE Last administered on 05/15/17 00:11; Admin Dose 50 ML; Start 05/11/17 at 08:00 Glucagon (Glucagen) 1 mg Q15M PRN IM DECREASED GLUCOSE; Start 05/11/17 at 08:00 Glucose (Glutose) 15 gm Q15M PRN BUCCAL DECREASED GLUCOSE; Start 05/11/17 at 08 :00 Epoetin Vasyl 74202 units 10,000 units MoWeFr@17 SC Last administered on 16:55; Admin Dose 10,000 UNITS; Start 05/13/17 at 17:00 Meropenem/Sodium Chloride 50 ml @ 100 mls/hr Q12 IVPB Last administered on 09:08; Admin Dose 100 MLS/HR; Start 05/14/17 at 21:00 Potassium Chloride 250 ml @ 62.5 mls/hr ONCE ONCE IVPB Last administered on 09:08; Admin Dose 62.5 MLS/HR; Start 05/15/17 at 09:00; Stop 05/15/17 at 12:59 Dextrose/Sodium Chloride (D5-1/2ns) 1,000 ml @ 100 mls/hr Q10H IV Last administered on 05/15/17t 09:38; Admin Dose 100 MLS/HR; Start 05/15/17 at 09:00 Assessment/Plan Chief Complaint/Hosp Course Assessment 1. Chronic encephalopathy unchanged 2. GJ tube site leak with erosion of surrounding skin. 3.Anemia of chronic disease 4. Chronic kidney disease 5. Vent dependent respiratory failure 6. Septic shock Currently vasopressor dependent Plan 1. Pending GI evaluation to replace G-tube, will be performed when patient stable. 2. Continue mechanical ventilation pulmonary toilet 3. Continue wound care 4. Monitor H&H. Transfuse for hemoglobin less than 7.5. Overall prognosis very poor consider palliative care consult Problems: JARED CLAIRE MD, [facility] May 15, 2017 10:13
--- NOTE | 2017-05-15 14:08 | CONS ---
Date/Time of Note Date/Time of Note DATE: 05/15/17 TIME: 14:03 Assessment/Plan Assessment/Plan Chief Complaint/Hosp Course ID PROGRESS NOTE TOTAL ABX DAY # 6 => Vanco IV + Merrem 24H INTERVAL SUMMARY * Clinically status quo -- remains on pressors, GT self-DC'd not replaced due to hemodynamic instability * No fevers, WBC normalized -- 86 yo F seen in ICU, eyes open, nontracking, obese, vented, noncommunicative * Chart reviewed, d/w RN, patient examined * Microbiology: 05/14/17 SPUTUM: JOHN STAIN Final POLYMORPH. LEUKOCYTE 2+ GRAM NEGATIVE RODS 2+ YEAST 1+ RESPIRATORY CULTURE Preliminary Organism 1 GRAM NEGATIVE MARK QUANTITY 2+ * CT of the abdomen revealed induration of the skin and thickening of the subcutaneous fat along the gastrostomy tract, larger right pleural effusion, extensive diverticular disease of the distal colon without evidence of diverticulitis PHYSICAL EXAMINATION: GENERAL: VSS,NAD, no fevers == Obese, eyes open HEENT: NGT->Secure / ETT secure NECK: Supple, trach-> midline CHEST: Equal chest rise bilaterally, Vented HEART: Pulse RRR ABDOMEN: Soft -> see photos large EC fistula residual healing scar, cellulitis w/(+)drainage EXTREMITIES: Warm, no edema SKIN: Warm, dry ID ASSESSMENT: 86 yo F w/PMHx Obesity,Parkinson's dementia w/chronic encephalopathy admitted with: 1. Sepsis w/shock, hypothermia, leukocytosis, lactic acidosis => multifactorial as below * 05/07/17 BCx (-) 2. Possible healthcare associated pneumonia * CT (+)Large right pleural effusion/small left effusion 3. 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 4. GNR HCAP vs tracheobronchitis: 05/14/17 RESPIRATORY CULTURE Preliminary Organism 1 GRAM NEGATIVE MARK QUANTITY 2+ 5. Chronic respiratory failure w/Trach 6. Multiple chronic decubitus 7. UTI as per urinalysis on admission => urine was not sent for culture 8. Acute kidney injury. 9. Diabetes. 10. Acute on chronic anemia. 11. 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 RASH on admission s/p empiric Elimite x1 w/(-)skin scraping for scabies (+)MRSA NARES ->Bactroban onboard INVASIVES: * PIV, Trach, PICC, Peg ABX ALLERGIES: KNDA CURRENT ABX: DAY # 6 => Vanco IV + Merrem ID RECOMMENDATIONS: 1. Continue IV ABX and supportive care...anticipate 10 days total ABX for UTI/ HCAP 2. Respiratory culture -> GNR pending 3. Aspiration precautions 4. GT site local wound care; topical ointment and absorbant DSG barrier care * Pending GT site replacement when hemodynamically stable * Case Management family contact noted . . Problems: Consultation Date/Type/Reason Admit Date/Time May 06, 2017 at 16:34 Initial Consult Date 05/12/17 Type of Consultation: ID Exam/Review of Systems Vital Signs Vitals Vital Signs Date Time Temp Pulse Resp B/P Pulse Ox O2 Delivery O2 Flow Rate FiO2 05/15/17 11:00 82 12 100 30 05/15/17 09:30 105/31 05/15/17 09:00 Mechanical Ventilator 05/15/17 08:00 97.9 Intake and Output 05/14/17 05/14/17 05/15/17 15:00 23:00 07:00 Intake Total 1219.78 ml 695.2 ml 907.8 ml Output Total 725 ml 380 ml 250 ml Balance 494.78 ml 315.2 ml 657.8 ml Results Result Diagram: 05/15/17 0508 05/15/17 0508 Results 24 hrs Laboratory Tests Test 05/14/17 16:15 05/14/17 19:53 05/14/17 23:51 05/15/17 00:36 Bedside Glucose 74 80 65 L 113 Test 05/15/17 03:58 05/15/17 04:33 05/15/17 05:08 05/15/17 09:10 Bedside Glucose 68 L 127 81 White Blood Count 3.8 #L Red Blood Count 2.81 L Hemoglobin 8.0 L Hematocrit 26.2 L Mean Corpuscular Volume 93.2 Mean Corpuscular Hemoglobin 28.5 L Mean Corpuscular Hemoglobin Concent 30.5 L Red Cell Distribution Width 18.6 H Platelet Count 62 L Mean Platelet Volume 11.1 H Neutrophils % 50.4 Lymphocytes % 16.0 Monocytes % 4.7 Eosinophils % 28.1 H Basophils % 0.3 Nucleated Red Blood Cells % 0.0 Neutrophils # 1.9 Lymphocytes # 0.6 L Monocytes # 0.2 L Eosinophils # 1.1 H Basophils # 0.0 Nucleated Red Blood Cells # 0.0 Sodium Level 144 Potassium Level 3.3 L Chloride Level 108 Carbon Dioxide Level 22 Anion Gap 17 H Blood Urea Nitrogen 51 H Creatinine 2.32 H Glucose Level 102 Calcium Level 8.3 L Phosphorus Level 6.1 H Magnesium Level 1.8 Random Vancomycin Level 44.6 Test 05/15/17 12:06 Bedside Glucose 84 Medications Medications Current Medications Atorvastatin Calcium (Lipitor) 10 mg QHS GTB Last administered on 05/13/17 20: 31; Admin Dose 10 MG; Start 05/06/17 at 21:00 Bisacodyl (Dulcolax Supp) 10 mg Q48H [place] Last administered on 05/12/17 17:57; Admin Dose 10 MG; Start 05/06/17 at 17:00 Carbidopa/Levodopa (Sinemet (25/ 100)) 1 tab TID GTB Last administered on 09:00; Admin Dose 1 TAB; Start 05/06/17 at 21:00 Clopidogrel Bisulfate (plaVIX) 75 mg DAILY GTB Last administered on 05/14/17 09:00; Admin Dose 75 MG; Start 05/07/17 at 09:00 Donepezil HCl (Aricept) 10 mg QHS GTB Last administered on 05/13/17 20:30; Admin Dose 10 MG; Start 05/06/17 at 21:00 Ferrous Sulfate (Ferrous Sulfate (Ec)) 325 mg BID PO Last administered on 09:00; Admin Dose 325 MG; Start 05/06/17 at 21:00 Folic Acid (Folic Acid) 1 mg DAILY GTB Last administered on 05/14/17 09:00; Admin Dose 1 MG; Start 05/07/17 at 09:00 Lactobacillus Acidophilus/ Rhamnosus (Culturelle) 1 cap QHS GTB Last administered on 05/12/17 20:28; Admin Dose 1 CAP; Start 05/06/17 at 21:00 Magnesium Hydroxide (Milk Of Mag) 30 ml Q24H GTB Last administered on 17:57; Admin Dose 30 ML; Start 05/06/17 at 17:00 Memantine (Namenda) 5 mg QAM GTB Last administered on 05/14/17 09:00; Admin Dose 5 MG; Start 05/07/17 at 09:00 Metoprolol Tartrate (Lopressor) 25 mg Q12H GTB ; Start 05/06/17 at 17:00 Multivit/Ca Carb/ B Cmplx/FA/Prenat (Radhika-John) 1 tab DAILY GTB Last administered on 05/14/17 08:59; Admin Dose 1 TAB; Start 05/07/17 at 09:00 Pramipexole (Mirapex) 0.5 mg DAILY GTB Last administered on 05/14/17 09:00; Admin Dose 0.5 MG; Start 05/07/17 at 09:00 Sodium Biphosphate/ Sodium Phosphate (Fleet Enema Pediatric) 118 ml Q72H PRN [place] CONSTIPATION; Start 05/06/17 at 17:00 Citric Acid/ Sodium Citrate (Bicitra) 30 ml BID PO Last administered on 09:00; Admin Dose 30 ML; Start 05/06/17 at 21:00 Heparin Sodium (Porcine) (Heparin (5000 Units/0.5 ml)) 5,000 unit BID SC Last administered on 05/15/17 09:15; Admin Dose 5,000 UNIT; Start 05/06/17 at 21:00 Nystatin (Nystatin Powder) 1 applic BID TOP Last administered on 05/15/17 09: 15; Admin Dose 1 APPLIC; Start 05/09/17 at 21:00 Mupirocin (Bactroban) 1 applic BID TOP Last administered on 05/15/17 09:15; Admin Dose 1 APPLIC; Start 05/09/17 at 12:30 Collagenase (Santyl) 1 applic DAILY TOP Last administered on 05/15/17 09:16; Admin Dose 1 APPLIC; Start 05/09/17 at 15:00 Collagenase 1 applic 1 applic PRN PRN TOP WOUND CARE; Start 05/09/17 at 14:00 Sodium Chloride 1,000 ml @ 0 mls/hr Q0M IV ; Start 05/09/17 at 18:18 Norepinephrine 16 mg/Dextrose 500 ml @ 1.87 mls/hr TITRATE IV ; Start 05/10/17 at 14:00 Dopamine HCl/ Dextrose 250 ml @ 6.848 mls/ hr TITRATE IV Last administered on 05/14/17 07:11; Admin Dose 15.407 MLS/HR; Start 05/10/17 at 18:30 Diagnostic Test (Pha) (Accu-Chek) 1 ea 02 XX Last administered on 05/14/17 01: 44; Admin Dose 1 EA; Start 05/12/17 at 02:00 Insulin Aspart (Novolog Insulin Pen) NOVOLOG *MILD* ALGORI... Q4 SC ; Start at 09:00 Miscellaneous Information 1 ea NOTE XX ; Start 05/11/17 at 08:00 Glucose (Glutose) 15 gm Q15M PRN PO DECREASED GLUCOSE; Start 05/11/17 at 08:00 Glucose (Glutose) 22.5 gm Q15M PRN PO DECREASED GLUCOSE; Start 05/11/17 at 08: 00 Dextrose (D50w Syringe) 25 ml Q15M PRN IV DECREASED GLUCOSE Last administered on 05/15/17 04:08; Admin Dose 25 ML; Start 05/11/17 at 08:00 Dextrose (D50w Syringe) 50 ml Q15M PRN IV DECREASED GLUCOSE Last administered on 05/15/17 00:11; Admin Dose 50 ML; Start 05/11/17 at 08:00 Glucagon (Glucagen) 1 mg Q15M PRN IM DECREASED GLUCOSE; Start 05/11/17 at 08:00 Glucose (Glutose) 15 gm Q15M PRN BUCCAL DECREASED GLUCOSE; Start 05/11/17 at 08 :00 Epoetin Vasyl 27681 units 10,000 units MoWeFr@17 SC Last administered on 16:55; Admin Dose 10,000 UNITS; Start 05/13/17 at 17:00 Dextrose/Sodium Chloride 1,000 ml @ 100 mls/hr Q10H IV Last administered on 09:38; Admin Dose 100 MLS/HR; Start 05/15/17 at 09:00 Meropenem/Sodium Chloride (Merrem 500mg/50 ml(Pmx)) 50 ml @ 100 mls/hr Q12 IVPB ; Start 05/15/17 at 21:00 SYLVIA PADRON NP May 15, 2017 14:08
--- NOTE | 2017-05-15 14:33 | PN ---
Date/Time of Note Date/Time of Note DATE: 05/15/17 TIME: 14:25 Assessment/Plan Lines/Catheters IV Catheter Type (from Nrs): Mid Line Collazo in Place (from Nrs): Yes Assessment/Plan Chief Complaint/Hosp Course 1. G-tube dislodgement: replaced with gjtube by GI, copious amount of coffee ground drainage peristomal -surgical placement of jtube when medically stable 2. Septic shock: multifactorial: 2/2: pneumonia + cellulitis + wounds; on pressors -abx -supportive 3. Respiratory failure with trach: PNA wtih pulm edema; comfortable on vent -pulmonary toilet -abx -supportive 4.STARLA with CKD; +urine output; -judicious fluids -renally dose meds -per nephrology 5. Leukopenia:2/2 #2, improving -support -as above 4. Hypernatremia: improved 5. Normocytic anemia: coffee ground drainage peristoma; h/h lower -monitor and transfuse as needed -continue Epogen 6. Hypokalemia, -optimize lytes 7. CHF -supportive -f/u cardiology 8. Diabetes: well controlled: 1 episode of hypoglycemia 9. Acute encephalopathy with history of advanced dementia. -supportive 10. Coronary artery disease. 11. Decubitus wound. Continue wound care. 12. r/o scabies: treated prophylactically 13. Thrombocytopenia 14. Peristomal cellulitis 2/2 #1; gjtube placed in ostomy bag for drainage -local care -abx Patient seen and examined in collaboration with Dr. Meliton Blackburn Problems: Subjective 24 Hr Interval Summary Still on pressors. No fevers overnight. gtube output dark brown drainage. + bowel function. Appears comfortable on vent. Nonverbal indicators of pain not present. No cp, n/v/d, chills, rash. Exam/Review of Systems Vital Signs Vitals Vital Signs Date Time Temp Pulse Resp B/P Pulse Ox O2 Delivery O2 Flow Rate FiO2 05/15/17 11:00 82 12 100 30 05/15/17 09:30 105/31 05/15/17 09:00 Mechanical Ventilator 05/15/17 08:00 97.9 Intake and Output 05/14/17 05/14/17 05/15/17 15:00 23:00 07:00 Intake Total 1219.78 ml 695.2 ml 907.8 ml Output Total 725 ml 380 ml 250 ml Balance 494.78 ml 315.2 ml 657.8 ml Exam Free Text/Dictation Constitutional: alert, non-verbal, No oriented Psych: confusion Head: atraumatic, normocephalic Eyes: PERRL, nl sclera ENMT: mucosa pink and moist Neck: non-tender, other (trach), supple Respiratory: congested cough Cardiovascular: edema Gastrointestinal: distended (mod), other (peristomal leak: coffee ground drainage), soft, tender Musculoskeletal: No muscle tone Extremities: edema Neurological: No nl mental status, No nl speech Skin: other (abdominal/peristomal/breast fold redness, moisture damage; ) Results Result Diagram: 05/15/17 0508 05/15/17 0508 SHADI CALDERON NP May 15, 2017 14:33
[2017-05-15] MEDS: DOPamine-D5W 1.6 MG/ML 250 ML IV SCH (15:51)
[2017-05-15] MEDS: MAGNESIUM HYDROXIDE 30ML CUP GTB SCH (17:00)
[2017-05-15] MEDS: EPOETIN 10000 UNITS/1 ML INJ (ESRD) SC SCH (17:33)
[2017-05-15] MEDS ORDERED: SOD CHLORIDE 0.9% 100 ML ONE (17:37)
--- NOTE | 2017-05-15 17:41 | RADRPT ---
PROCEDURE: XR Chest. CLINICAL INDICATION: Check PICC line position. TECHNIQUE: Single frontal view. COMPARISON: 05/11/2017. FINDINGS: There is a right arm PICC line with the tip in the lower superior vena cava. The tracheostomy tube is in satisfactory position. There is mild pulmonary edema, unchanged. The heart is mildly enlarged. Small bilateral pleural effusions are unchanged. There is no pneumothorax. IMPRESSION: 1. Right arm PICC line tip in satisfactory position. 2. No other change from 05/11/2017. RPTAT: QQ .Sourav Ramirez MD, MD Date Time Electronically viewed and signed by .Sourav Ramirez MD, on 05/15/2017 17:40 .R/
--- NOTE | 2017-05-15 18:12 | CONS ---
Date/Time of Note Date/Time of Note DATE: 05/15/17 TIME: 18:11 Assessment/Plan Assessment/Plan Chief Complaint/Hosp Course This 69-year-old female with a history of CVA vent dependent respiratory failure , was brought to the emergency room for the dislodgment of the GJ tube. Patient is nonverbal and no information can be obtained. No GI bleeding no chest pain no shortness of breath. Problems: Additional Assessment/Plan Additional Assessment/Plan Additional Assessment/Plan 1. Dislodged of the GJ tube accidentally 2. Vent dependent respiratory failure 3. Chronic encephalopathy 4. Renal failure 5. Peripheral vascular disease 6. Anemia 7. Hypertension patient is still on dopamine Plan GJ tube, could not be done. GI lab did not have GJ tube. Hospital did not have GJ tube I will bring it from other facility. Case discussed with Dr. Blackburn and told him to proceed with jejunostomy tube, [facility] not have [facility] tube and because of her anatomy it is technically difficult to prevent the leakage around G-tube site Jejunostomy tube as per surgeon. Awaiting for the blood pressure to be stabilized before surgery Consultation Date/Type/Reason Admit Date/Time May 06, 2017 at 16:34 Type of Consultation: ID [id number] HR Interval Summary Subjective hx not possible: pt non-verbal Exam/Review of Systems Vital Signs Vitals Vital Signs Date Time Temp Pulse Resp B/P Pulse Ox O2 Delivery O2 Flow Rate FiO2 05/15/17 17:00 73 12 100 30 05/15/17 15:45 100/41 05/15/17 15:15 Mechanical Ventilator 05/15/17 12:00 97.9 Intake and Output 05/14/17 05/14/17 05/15/17 15:00 23:00 07:00 Intake Total 1219.78 ml 695.2 ml 907.8 ml Output Total 725 ml 380 ml 250 ml Balance 494.78 ml 315.2 ml 657.8 ml Exam Respiratory: clear to auscultation, normal air movement, other (Patient is on vent) Cardiovascular: nl pulses, regular rate and rhythm Gastrointestinal: other (G-tube opening as a colostomy bag) Musculoskeletal: nl extremities to inspection, nl gait and stance Extremities: normal pulses Neurological: unresponsive Results Result Diagram: 05/15/17 0508 05/15/17 0508 Results 24 hrs Laboratory Tests Test 05/14/17 19:53 05/14/17 23:51 05/15/17 00:36 05/15/17 03:58 Bedside Glucose 80 65 L 113 68 L Test 05/15/17 04:33 05/15/17 05:08 05/15/17 09:10 05/15/17 12:06 Bedside Glucose 127 81 84 White Blood Count 3.8 #L Red Blood Count 2.81 L Hemoglobin 8.0 L Hematocrit 26.2 L Mean Corpuscular Volume 93.2 Mean Corpuscular Hemoglobin 28.5 L Mean Corpuscular Hemoglobin Concent 30.5 L Red Cell Distribution Width 18.6 H Platelet Count 62 L Mean Platelet Volume 11.1 H Neutrophils % 50.4 Lymphocytes % 16.0 Monocytes % 4.7 Eosinophils % 28.1 H Basophils % 0.3 Nucleated Red Blood Cells % 0.0 Neutrophils # 1.9 Lymphocytes # 0.6 L Monocytes # 0.2 L Eosinophils # 1.1 H Basophils # 0.0 Nucleated Red Blood Cells # 0.0 Sodium Level 144 Potassium Level 3.3 L Chloride Level 108 Carbon Dioxide Level 22 Anion Gap 17 H Blood Urea Nitrogen 51 H Creatinine 2.32 H Glucose Level 102 Calcium Level 8.3 L Phosphorus Level 6.1 H Magnesium Level 1.8 Random Vancomycin Level 44.6 Test 05/15/17 17:29 Bedside Glucose 100 Medications Medications Current Medications Atorvastatin Calcium (Lipitor) 10 mg QHS GTB Last administered on 05/13/17 20: 31; Admin Dose 10 MG; Start 05/06/17 at 21:00 Bisacodyl (Dulcolax Supp) 10 mg Q48H [place] Last administered on 05/12/17 17:57; Admin Dose 10 MG; Start 05/06/17 at 17:00 Carbidopa/Levodopa (Sinemet (25/ 100)) 1 tab TID GTB Last administered on 09:00; Admin Dose 1 TAB; Start 05/06/17 at 21:00 Clopidogrel Bisulfate (plaVIX) 75 mg DAILY GTB Last administered on 05/14/17 09:00; Admin Dose 75 MG; Start 05/07/17 at 09:00 Donepezil HCl (Aricept) 10 mg QHS GTB Last administered on 05/13/17 20:30; Admin Dose 10 MG; Start 05/06/17 at 21:00 Ferrous Sulfate (Ferrous Sulfate (Ec)) 325 mg BID PO Last administered on 09:00; Admin Dose 325 MG; Start 05/06/17 at 21:00 Folic Acid (Folic Acid) 1 mg DAILY GTB Last administered on 05/14/17 09:00; Admin Dose 1 MG; Start 05/07/17 at 09:00 Lactobacillus Acidophilus/ Rhamnosus (Culturelle) 1 cap QHS GTB Last administered on 05/12/17 20:28; Admin Dose 1 CAP; Start 05/06/17 at 21:00 Magnesium Hydroxide (Milk Of Mag) 30 ml Q24H GTB Last administered on 17:57; Admin Dose 30 ML; Start 05/06/17 at 17:00 Memantine (Namenda) 5 mg QAM GTB Last administered on 05/14/17 09:00; Admin Dose 5 MG; Start 05/07/17 at 09:00 Metoprolol Tartrate (Lopressor) 25 mg Q12H GTB ; Start 05/06/17 at 17:00 Multivit/Ca Carb/ B Cmplx/FA/Prenat (Radhika-John) 1 tab DAILY GTB Last administered on 05/14/17 08:59; Admin Dose 1 TAB; Start 05/07/17 at 09:00 Pramipexole (Mirapex) 0.5 mg DAILY GTB Last administered on 05/14/17 09:00; Admin Dose 0.5 MG; Start 05/07/17 at 09:00 Sodium Biphosphate/ Sodium Phosphate (Fleet Enema Pediatric) 118 ml Q72H PRN [place] CONSTIPATION; Start 05/06/17 at 17:00 Citric Acid/ Sodium Citrate (Bicitra) 30 ml BID PO Last administered on 09:00; Admin Dose 30 ML; Start 05/06/17 at 21:00 Heparin Sodium (Porcine) (Heparin (5000 Units/0.5 ml)) 5,000 unit BID SC Last administered on 05/15/17 09:15; Admin Dose 5,000 UNIT; Start 05/06/17 at 21:00 Nystatin (Nystatin Powder) 1 applic BID TOP Last administered on 05/15/17 09: 15; Admin Dose 1 APPLIC; Start 05/09/17 at 21:00 Mupirocin (Bactroban) 1 applic BID TOP Last administered on 05/15/17 09:15; Admin Dose 1 APPLIC; Start 05/09/17 at 12:30 Collagenase (Santyl) 1 applic DAILY TOP Last administered on 05/15/17 09:16; Admin Dose 1 APPLIC; Start 05/09/17 at 15:00 Collagenase 1 applic 1 applic PRN PRN TOP WOUND CARE; Start 05/09/17 at 14:00 Sodium Chloride 1,000 ml @ 0 mls/hr Q0M IV ; Start 05/09/17 at 18:18 Norepinephrine 16 mg/Dextrose 500 ml @ 1.87 mls/hr TITRATE IV ; Start 05/10/17 at 14:00 Dopamine HCl/ Dextrose 250 ml @ 6.848 mls/ hr TITRATE IV Last administered on 05/15/17 15:51; Admin Dose 17.119 MLS/HR; Start 05/10/17 at 18:30 Diagnostic Test (Pha) (Accu-Chek) 1 ea 02 XX Last administered on 05/14/17 01: 44; Admin Dose 1 EA; Start 05/12/17 at 02:00 Insulin Aspart (Novolog Insulin Pen) NOVOLOG *MILD* ALGORI... Q4 SC ; Start at 09:00 Miscellaneous Information 1 ea NOTE XX ; Start 05/11/17 at 08:00 Glucose (Glutose) 15 gm Q15M PRN PO DECREASED GLUCOSE; Start 05/11/17 at 08:00 Glucose (Glutose) 22.5 gm Q15M PRN PO DECREASED GLUCOSE; Start 05/11/17 at 08: 00 Dextrose (D50w Syringe) 25 ml Q15M PRN IV DECREASED GLUCOSE Last administered on 05/15/17 04:08; Admin Dose 25 ML; Start 05/11/17 at 08:00 Dextrose (D50w Syringe) 50 ml Q15M PRN IV DECREASED GLUCOSE Last administered on 05/15/17 00:11; Admin Dose 50 ML; Start 05/11/17 at 08:00 Glucagon (Glucagen) 1 mg Q15M PRN IM DECREASED GLUCOSE; Start 05/11/17 at 08:00 Glucose (Glutose) 15 gm Q15M PRN BUCCAL DECREASED GLUCOSE; Start 05/11/17 at 08 :00 Epoetin Vasyl 98740 units 10,000 units MoWeFr@17 SC Last administered on 17:33; Admin Dose 10,000 UNITS; Start 05/13/17 at 17:00 Dextrose/Sodium Chloride 1,000 ml @ 100 mls/hr Q10H IV Last administered on 09:38; Admin Dose 100 MLS/HR; Start 05/15/17 at 09:00 Meropenem/Sodium Chloride (Merrem 500mg/50 ml(Pmx)) 50 ml @ 100 mls/hr Q12 IVPB ; Start 05/15/17 at 21:00 IV Flush (NS 10 ml) 10 ml PRN PRN IV IV PROTOCOL; Start 05/15/17 at 17:30 SYLWIA SY MD May 15, 2017 18:12
[2017-05-15] MEDS: ATORVASTATIN 10 MG TAB GTB SCH (20:58)
[2017-05-15] MEDS: LACTOBACILLUS RHAMNOSUS CAP GTB SCH (20:58)
[2017-05-15] MEDS: DONEPEZIL 10 MG TAB GTB SCH (20:58)
[2017-05-15] MEDS: MEROPENEM 500MG/50 ML (PMX) 50 ML IVPB SCH (22:07)
[2017-05-16] VITALS (103 sets, daily range): BP systolic 50–136; BP diastolic 31–59; PULSE 69–104; RESP 10–24
[2017-05-16] MEDS: DEXTROSE 5%-0.45% NACL 1,000 ML IV SCH ×2 (00:59→05:00)
[2017-05-16] MEDS: INSULIN ASPART [NOVOLOG] 3 ML PEN SC SCH ×6 (01:00→21:00)
[2017-05-16] MEDS: METOPROLOL 25 MG TAB GTB SCH ×2 (05:00→16:07)
[2017-05-16 05:59] LABS: ABNORMAL IP MESSAGE 1; BASOPHILS % 0.3 % (0.0-2.0); EOSINOPHILS # 1.3 10^3/ul (0.0-0.5); EOSINOPHILS % 32.7 % (0.0-7.0); HEMATOCRIT 22.3 % (37.0-47.0); LYMPHOCYTES # 0.9 10^3/ul (0.8-2.9); MEAN CORPUSCULAR HEMOGLOBIN 27.6 pg (29.0-33.0); MEAN CORPUSCULAR HGB CONC 29.6 g/dl (32.0-37.0); MEAN CORPUSCULAR VOLUME 93.3 fl (82.0-101.0); MEAN PLATELET VOLUME 12.2 fl (7.4-10.4); MONOCYTE # 0.3 10^3/ul (0.3-0.9); MONOCYTES % 7.3 % (0.0-11.0); NEUTROPHIL # 1.4 10^3/ul (1.6-7.5); NEUTROPHILS % 36.2 % (39.0-77.0); PLATELET COUNT 58 10^3/UL (140-415); RED BLOOD COUNT 2.39 10^6/ul (4.20-5.40); RED CELL DISTRIBUTION WIDTH 18.8 % (11.5-14.5)
[2017-05-16 06:14] LABS: HEMOGLOBIN 6.6 g/dl (12.0-16.0)
[2017-05-16 06:15] LABS: POSITIVE DIFF @See below
[2017-05-16 06:45] LABS: CALCIUM 7.8 mg/dl (8.4-10.2); CREATININE 1.89 mg/dl (0.44-1.00); MAGNESIUM 1.6 mg/dl (1.7-2.5); PHOSPHORUS 5.3 mg/dl (2.5-4.9); POTASSIUM 3.4 mmol/L (3.5-5.1)
--- NOTE | 2017-05-16 07:29 | PN ---
Date/Time of Note Date/Time of Note DATE: 05/16/17 TIME: : Assessment/Plan VTE Prophylaxis VTE Prophylaxis Intervention: other Lines/Catheters IV Catheter Type (from Nrs): PICC Line Central line still needed: Yes Urinary Cath still in place: Yes Reason Cath still needed: other (indicate) Assessment/Plan Chief Complaint/Hosp Course 1. hypoxemic resp failure: s/p trach 2. Pafib; currently in NSR 3. hx HTN: now in shock and hypotensive. : STILL requires DOPAMINE DRIP 4. encephalopathy 5. renal failure: f/u with nephrology 6. dysphagia 7. G tube malfunction/ infection 8. GI bleed 9. severe anemia will cont dopamine drip and titrate off when BP stablizes. . . cont resp care nutritional support. CONT ICU care as long as pt is on pressors correct lytes prn f/u renal fx. transfusions Problems: Subjective 24 Hr Interval Summary Free Text/Dictation CARDIOLOGY FOLLOW UP NOTE: Discussed with staff and rhythm was reviewed pt remains in NSR. NO AFIB seen NONVERBAL. pt is still ICU on dopamine drip and unable to wean off pt is bleeding from the G tube side per RN OBJECTIVE: General: no acute distress HEENT: NC/AT. NECK: NO JVD. no stridor. S/P trach on vent CV: RRR. systolic murmur; no gallop or rubs. PULM: no wheezing anteriorly GI: SOFT, NT, ND, no rebound or guarding s/p PEG Extremity: + B/L LE edema. no clubbing. neuro: opens her eyes to painful stimuli. does not follow commands Psych: calm rectal: deferred Exam/Review of Systems Vital Signs Vitals Vital Signs Date Time Temp Pulse Resp B/P Pulse Ox O2 Delivery O2 Flow Rate FiO2 05/16/17 06:00 71 12 106/51 100 05/16/17 05:45 Mechanical Ventilator 05/16/17 05:05 30 05/16/17 04:00 98.0 Intake and Output 05/15/17 05/15/17 05/16/17 15:00 23:00 07:00 Intake Total 1176.53 ml 986.88 ml 699.24 ml Output Total 340 ml 200 ml 740 ml Balance 836.53 ml 786.88 ml -40.76 ml Results Result Diagram: 05/16/17 0500 05/16/17 0500 Results 24 hrs Laboratory Tests Test 05/15/17 09:10 05/15/17 12:06 05/15/17 17:29 05/15/17 20:50 Bedside Glucose 81 84 100 112 Test 05/16/17 01:09 05/16/17 05:00 05/16/17 05:11 Bedside Glucose 98 113 White Blood Count 4.0 L Red Blood Count 2.39 L Hemoglobin 6.6 *L Hematocrit 22.3 L Mean Corpuscular Volume 93.3 Mean Corpuscular Hemoglobin 27.6 L Mean Corpuscular Hemoglobin Concent 29.6 L Red Cell Distribution Width 18.8 H Platelet Count 58 L Mean Platelet Volume 12.2 H Neutrophils % 36.2 L Lymphocytes % 23.0 Monocytes % 7.3 Eosinophils % 32.7 H Basophils % 0.3 Nucleated Red Blood Cells % 0.0 Neutrophils # 1.4 L Lymphocytes # 0.9 Monocytes # 0.3 Eosinophils # 1.3 H Basophils # 0.0 Nucleated Red Blood Cells # 0.0 Sodium Level 139 Potassium Level 3.4 L Chloride Level 107 Carbon Dioxide Level 22 Anion Gap 13 Blood Urea Nitrogen 40 #H Creatinine 1.89 H Glucose Level 328 #H Calcium Level 7.8 L Phosphorus Level 5.3 H Magnesium Level 1.6 L Medications Medications Current Medications Atorvastatin Calcium (Lipitor) 10 mg QHS GTB Last administered on 05/13/17 20: 31; Admin Dose 10 MG; Start 05/06/17 at 21:00 Bisacodyl (Dulcolax Supp) 10 mg Q48H [place] Last administered on 05/12/17 17:57; Admin Dose 10 MG; Start 05/06/17 at 17:00 Carbidopa/Levodopa (Sinemet (25/ 100)) 1 tab TID GTB Last administered on 09:00; Admin Dose 1 TAB; Start 05/06/17 at 21:00 Clopidogrel Bisulfate (plaVIX) 75 mg DAILY GTB Last administered on 05/14/17 09:00; Admin Dose 75 MG; Start 05/07/17 at 09:00 Donepezil HCl (Aricept) 10 mg QHS GTB Last administered on 05/13/17 20:30; Admin Dose 10 MG; Start 05/06/17 at 21:00 Ferrous Sulfate (Ferrous Sulfate (Ec)) 325 mg BID PO Last administered on 09:00; Admin Dose 325 MG; Start 05/06/17 at 21:00 Folic Acid (Folic Acid) 1 mg DAILY GTB Last administered on 05/14/17 09:00; Admin Dose 1 MG; Start 05/07/17 at 09:00 Lactobacillus Acidophilus/ Rhamnosus (Culturelle) 1 cap QHS GTB Last administered on 05/12/17 20:28; Admin Dose 1 CAP; Start 05/06/17 at 21:00 Magnesium Hydroxide (Milk Of Mag) 30 ml Q24H GTB Last administered on 17:57; Admin Dose 30 ML; Start 05/06/17 at 17:00 Memantine (Namenda) 5 mg QAM GTB Last administered on 05/14/17 09:00; Admin Dose 5 MG; Start 05/07/17 at 09:00 Metoprolol Tartrate (Lopressor) 25 mg Q12H GTB ; Start 05/06/17 at 17:00 Multivit/Ca Carb/ B Cmplx/FA/Prenat (Radhika-John) 1 tab DAILY GTB Last administered on 05/14/17 08:59; Admin Dose 1 TAB; Start 05/07/17 at 09:00 Pramipexole (Mirapex) 0.5 mg DAILY GTB Last administered on 05/14/17 09:00; Admin Dose 0.5 MG; Start 05/07/17 at 09:00 Sodium Biphosphate/ Sodium Phosphate (Fleet Enema Pediatric) 118 ml Q72H PRN [place] CONSTIPATION; Start 05/06/17 at 17:00 Citric Acid/ Sodium Citrate (Bicitra) 30 ml BID PO Last administered on 09:00; Admin Dose 30 ML; Start 05/06/17 at 21:00 Heparin Sodium (Porcine) (Heparin (5000 Units/0.5 ml)) 5,000 unit BID SC Last administered on 05/15/17 20:54; Admin Dose 5,000 UNIT; Start 05/06/17 at 21:00 Nystatin (Nystatin Powder) 1 applic BID TOP Last administered on 05/15/17 22: 08; Admin Dose 1 APPLIC; Start 05/09/17 at 21:00 Mupirocin (Bactroban) 1 applic BID TOP Last administered on 05/15/17 21:00; Admin Dose 1 APPLIC; Start 05/09/17 at 12:30 Collagenase (Santyl) 1 applic DAILY TOP Last administered on 05/15/17 09:16; Admin Dose 1 APPLIC; Start 05/09/17 at 15:00 Collagenase 1 applic 1 applic PRN PRN TOP WOUND CARE; Start 05/09/17 at 14:00 Sodium Chloride 1,000 ml @ 0 mls/hr Q0M IV ; Start 05/09/17 at 18:18 Norepinephrine 16 mg/Dextrose 500 ml @ 1.87 mls/hr TITRATE IV ; Start 05/10/17 at 14:00 Dopamine HCl/ Dextrose 250 ml @ 6.848 mls/ hr TITRATE IV Last administered on 05/15/17 15:51; Admin Dose 17.119 MLS/HR; Start 05/10/17 at 18:30 Insulin Aspart (Novolog Insulin Pen) NOVOLOG *MILD* ALGORI... Q4 SC ; Start at 09:00 Miscellaneous Information 1 ea NOTE XX ; Start 05/11/17 at 08:00 Glucose (Glutose) 15 gm Q15M PRN PO DECREASED GLUCOSE; Start 05/11/17 at 08:00 Glucose (Glutose) 22.5 gm Q15M PRN PO DECREASED GLUCOSE; Start 05/11/17 at 08: 00 Dextrose (D50w Syringe) 25 ml Q15M PRN IV DECREASED GLUCOSE Last administered on 05/15/17 04:08; Admin Dose 25 ML; Start 05/11/17 at 08:00 Dextrose (D50w Syringe) 50 ml Q15M PRN IV DECREASED GLUCOSE Last administered on 05/15/17 00:11; Admin Dose 50 ML; Start 05/11/17 at 08:00 Glucagon (Glucagen) 1 mg Q15M PRN IM DECREASED GLUCOSE; Start 05/11/17 at 08:00 Glucose (Glutose) 15 gm Q15M PRN BUCCAL DECREASED GLUCOSE; Start 05/11/17 at 08 :00 Epoetin Vasyl 42405 units 10,000 units MoWeFr@17 [place] Last administered on 17:33; Admin Dose 10,000 UNITS; Start 05/13/17 at 17:00 Dextrose/Sodium Chloride 1,000 ml @ 100 mls/hr Q10H IV Last administered on 00:59; Admin Dose 100 MLS/HR; Start 05/15/17 at 09:00 Meropenem/Sodium Chloride (Merrem 500mg/50 ml(Pmx)) 50 ml @ 100 mls/hr Q12 IVPB Last administered on 05/15/17 22:07; Admin Dose 100 MLS/HR; Start at 21:00 IV Flush (NS 10 ml) 10 ml PRN PRN IV IV PROTOCOL; Start 05/15/17 at 17:30 MILAGROS MUNOZ MD May 16, 2017 07:29
[2017-05-16] MEDS: DOPamine-D5W 1.6 MG/ML 250 ML IV SCH ×2 (07:36→23:08)
[2017-05-16] MEDS ORDERED: SOD CHLORIDE 0.9% 250 ML IV* ONE (07:39)
--- NOTE | 2017-05-16 07:49 | PN ---
Date/Time of Note Date/Time of Note DATE: 05/16/17 TIME: 07:30 Assessment/Plan Lines/Catheters IV Catheter Type (from Nrs): PICC Line Collazo in Place (from Nrs): Yes Assessment/Plan Chief Complaint/Hosp Course 1. G-tube dislodgement: replaced with gjtube by GI, copious amount of coffee ground drainage peristomal -possible surgical placement of jtube when medically stable 2. Septic shock: multifactorial: 2/2: pneumonia + cellulitis + wounds; on pressors -abx -supportive 3. Respiratory failure with trach: PNA wtih pulm edema; comfortable on vent -pulmonary toilet -abx -supportive 4.STARLA with CKD; +urine output; cr improved -judicious fluids -renally dose meds -per nephrology 5. Leukopenia:2/2 #2, improving -support -as above 4. Hypernatremia: improved 5. Normocytic anemia: coffee ground drainage peristoma; h/h much lower -monitor and transfuse as needed -continue Epogen 6. Hypokalemia, -optimize lytes 7. CHF -supportive -f/u cardiology 8. Diabetes: labile 9. Acute encephalopathy with history of advanced dementia. -supportive 10. Coronary artery disease. 11. Decubitus wound. Continue wound care. 12. r/o scabies: treated prophylactically 13. Thrombocytopenia 14. Peristomal cellulitis 2/2 #1; gjtube placed in ostomy bag for drainage -local care -abx 15. Pancytopenia 16. Hypocalcemia -replete and monitor 17. Hypomagnesemia Patient seen and examined in collaboration with Dr. Meliton Blackburn Problems: Subjective 24 Hr Interval Summary Still on pressors, +bowel function. No fevers overnight. copious peristomal coffee ground drainage. Appears comfortable on vent. Nonverbal indicators of pain not present. No cp, n/v/d, chills, rash. Exam/Review of Systems Vital Signs Vitals Vital Signs Date Time Temp Pulse Resp B/P Pulse Ox O2 Delivery O2 Flow Rate FiO2 05/16/17 06:00 71 12 106/51 100 05/16/17 05:45 Mechanical Ventilator 05/16/17 05:05 30 05/16/17 04:00 98.0 Intake and Output 05/15/17 05/15/17 05/16/17 15:00 23:00 07:00 Intake Total 1176.53 ml 986.88 ml 699.24 ml Output Total 340 ml 200 ml 740 ml Balance 836.53 ml 786.88 ml -40.76 ml Exam Free Text/Dictation Constitutional: alert, non-verbal, No oriented Psych: confusion Head: atraumatic, normocephalic Eyes: PERRL, nl sclera ENMT: mucosa pink and moist Neck: non-tender, other (trach), supple Respiratory: congested cough Cardiovascular: edema Gastrointestinal: distended (mod), other (copious peristomal leak: coffee ground drainage to ostomy bag), soft, tender Musculoskeletal: No muscle tone Extremities: edema Neurological: No nl mental status, No nl speech Skin: other (abdominal/peristomal/breast fold redness, moisture damage; ) Results Result Diagram: 05/16/17 0500 05/16/17 0500 SHADI CALDERON NP May 16, 2017 07:40
--- NOTE | 2017-05-16 08:28 | PN ---
Date/Time of Note Date/Time of Note DATE: 05/16/17 TIME: 08:22 Assessment/Plan VTE Prophylaxis VTE Prophylaxis Intervention: other Lines/Catheters IV Catheter Type (from Nrsg): PICC Line Central line still needed: Yes Urinary Cath still in place: Yes Reason Cath still needed: other (indicate) Assessment/Plan Chief Complaint/Hosp Course 1. Septic shock Etiology likely multifactorial, pneumonia, cellulitis, wounds, Unable to be weaned off pressors Continue IV fluids, broad-spectrum antibiotics CT abdomen shows no acute intra-abdominal process Follow-up with infectious disease, monitor serial lactic acid levels Anemia Sources appears to be GIs but is coming from ostomy site We will transfuse 2 units of PRBC Follow-up with GI recommendations Continue PPI We will hold heparin dysphagia- g tube dislodged, Continue to monitor Follow-up with GI Patient continues to have leak around ostomy site general surgery was consulted planning for J-tube placement once clinically stable Acute hypoxemic respiratory failure status post trach Vent settings ABGs been reviewed Follow-up with pulmonary 3. Nonoliguric acute kidney injury on top of chronic kidney disease stage 4. Etiology hemodynamics, possible progression of disease Urinary output improved Continue to monitor closely No immediate need for renal replacement therapy at this time Hypernatremia Improved chf -cont med/royce -f/u cardiology Intermittent diuresis in the setting of pressors Right large pleural effusion Consider thoracentesis Monitor closely on diuretics 8. Acute encephalopathy and advanced dementia. Etiology is toxic metabolic. Continue to monitor. 9. Mineral bone disorder. Continue to monitor calcium and phosphorus levels. 10. Pancytopenia Monitor 11. Coronary artery disease. Continue medical management. 12. Diabetes. Continue Accu-Cheks and insulin sliding scale. 13. Decubitus wound. Continue wound care. Gastrointestinal and deep venous thrombosis prophylaxis. Continue proton pump inhibitor hold heparin Hypomagnesemia Replete magnesium sulfate as needed Disposition. Patient has poor prognosis, Left a message with the patient's son to discuss overall goals of care Please note spent over 40 minutes of critical care time with this patient Problems: Subjective 24 Hr Interval Summary Free Text/Dictation Patient seen and examined Patient noted to have bleeding from ostomy site Patient to receive 2 units of PRBC I left a message with patient's son regarding overall goals of care, will consider a family discussion and a palliative consult Exam/Review of Systems Vital Signs Vitals Vital Signs Date Time Temp Pulse Resp B/P Pulse Ox O2 Delivery O2 Flow Rate FiO2 05/16/17 06:00 71 12 106/51 100 05/16/17 05:45 Mechanical Ventilator 05/16/17 05:05 30 05/16/17 04:00 98.0 Intake and Output 05/15/17 05/15/17 05/16/17 15:00 23:00 07:00 Intake Total 1176.53 ml 986.88 ml 699.24 ml Output Total 340 ml 200 ml 740 ml Balance 836.53 ml 786.88 ml -40.76 ml Exam HEENT: Head is normocephalic, NECK: Supple., Positive trach HEART: Irregular LUNGS: Show diminished breath sounds at base. ABDOMEN: Soft, nontender to palpation without rebound or guarding. Positive G- tube EXTREMITIES: Negative for clubbing, cyanosis. Positive edema DERMATOLOGIC: No rashes. MUSCULOSKELETAL: No joint effusions, NEUROLOGIC: No change in exam Results Result Diagram: 05/16/17 0500 05/16/17 0500 Results 24 hrs Laboratory Tests Test 05/15/17 09:10 05/15/17 12:06 05/15/17 17:29 05/15/17 20:50 Bedside Glucose 81 84 100 112 Test 05/16/17 01:09 05/16/17 05:00 05/16/17 05:11 Bedside Glucose 98 113 White Blood Count 4.0 L Red Blood Count 2.39 L Hemoglobin 6.6 *L Hematocrit 22.3 L Mean Corpuscular Volume 93.3 Mean Corpuscular Hemoglobin 27.6 L Mean Corpuscular Hemoglobin Concent 29.6 L Red Cell Distribution Width 18.8 H Platelet Count 58 L Mean Platelet Volume 12.2 H Neutrophils % 36.2 L Lymphocytes % 23.0 Monocytes % 7.3 Eosinophils % 32.7 H Basophils % 0.3 Nucleated Red Blood Cells % 0.0 Neutrophils # 1.4 L Lymphocytes # 0.9 Monocytes # 0.3 Eosinophils # 1.3 H Basophils # 0.0 Nucleated Red Blood Cells # 0.0 Sodium Level 139 Potassium Level 3.4 L Chloride Level 107 Carbon Dioxide Level 22 Anion Gap 13 Blood Urea Nitrogen 40 #H Creatinine 1.89 H Glucose Level 328 #H Calcium Level 7.8 L Phosphorus Level 5.3 H Magnesium Level 1.6 L Medications Medications Current Medications Atorvastatin Calcium (Lipitor) 10 mg QHS GTB Last administered on 05/13/17 20: 31; Admin Dose 10 MG; Start 05/06/17 at 21:00 Bisacodyl (Dulcolax Supp) 10 mg Q48H [place] Last administered on 05/12/17 17:57; Admin Dose 10 MG; Start 05/06/17 at 17:00 Carbidopa/Levodopa (Sinemet (25/ 100)) 1 tab TID GTB Last administered on 09:00; Admin Dose 1 TAB; Start 05/06/17 at 21:00 Clopidogrel Bisulfate (plaVIX) 75 mg DAILY GTB Last administered on 05/14/17 09:00; Admin Dose 75 MG; Start 05/07/17 at 09:00 Donepezil HCl (Aricept) 10 mg QHS GTB Last administered on 05/13/17 20:30; Admin Dose 10 MG; Start 05/06/17 at 21:00 Ferrous Sulfate (Ferrous Sulfate (Ec)) 325 mg BID PO Last administered on 09:00; Admin Dose 325 MG; Start 05/06/17 at 21:00 Folic Acid (Folic Acid) 1 mg DAILY GTB Last administered on 05/14/17 09:00; Admin Dose 1 MG; Start 05/07/17 at 09:00 Lactobacillus Acidophilus/ Rhamnosus (Culturelle) 1 cap QHS GTB Last administered on 05/12/17 20:28; Admin Dose 1 CAP; Start 05/06/17 at 21:00 Magnesium Hydroxide (Milk Of Mag) 30 ml Q24H GTB Last administered on 17:57; Admin Dose 30 ML; Start 05/06/17 at 17:00 Memantine (Namenda) 5 mg QAM GTB Last administered on 05/14/17 09:00; Admin Dose 5 MG; Start 05/07/17 at 09:00 Metoprolol Tartrate (Lopressor) 25 mg Q12H GTB ; Start 05/06/17 at 17:00 Multivit/Ca Carb/ B Cmplx/FA/Prenat (Radhika-John) 1 tab DAILY GTB Last administered on 05/14/17 08:59; Admin Dose 1 TAB; Start 05/07/17 at 09:00 Pramipexole (Mirapex) 0.5 mg DAILY GTB Last administered on 05/14/17 09:00; Admin Dose 0.5 MG; Start 05/07/17 at 09:00 Sodium Biphosphate/ Sodium Phosphate (Fleet Enema Pediatric) 118 ml Q72H PRN [place] CONSTIPATION; Start 05/06/17 at 17:00 Citric Acid/ Sodium Citrate (Bicitra) 30 ml BID PO Last administered on 09:00; Admin Dose 30 ML; Start 05/06/17 at 21:00 Heparin Sodium (Porcine) (Heparin (5000 Units/0.5 ml)) 5,000 unit BID SC Last administered on 05/15/17 20:54; Admin Dose 5,000 UNIT; Start 05/06/17 at 21:00 Nystatin (Nystatin Powder) 1 applic BID TOP Last administered on 05/15/17 22: 08; Admin Dose 1 APPLIC; Start 05/09/17 at 21:00 Mupirocin (Bactroban) 1 applic BID TOP Last administered on 05/15/17 21:00; Admin Dose 1 APPLIC; Start 05/09/17 at 12:30 Collagenase (Santyl) 1 applic DAILY TOP Last administered on 05/15/17 09:16; Admin Dose 1 APPLIC; Start 05/09/17 at 15:00 Collagenase 1 applic 1 applic PRN PRN TOP WOUND CARE; Start 05/09/17 at 14:00 Sodium Chloride 1,000 ml @ 0 mls/hr Q0M IV ; Start 05/09/17 at 18:18 Norepinephrine 16 mg/Dextrose 500 ml @ 1.87 mls/hr TITRATE IV ; Start 05/10/17 at 14:00 Dopamine HCl/ Dextrose 250 ml @ 6.848 mls/ hr TITRATE IV Last administered on 05/16/17 07:36; Admin Dose 15.407 MLS/HR; Start 05/10/17 at 18:30 Insulin Aspart (Novolog Insulin Pen) NOVOLOG *MILD* ALGORI... Q4 SC ; Start at 09:00 Miscellaneous Information 1 ea NOTE XX ; Start 05/11/17 at 08:00 Glucose (Glutose) 15 gm Q15M PRN PO DECREASED GLUCOSE; Start 05/11/17 at 08:00 Glucose (Glutose) 22.5 gm Q15M PRN PO DECREASED GLUCOSE; Start 05/11/17 at 08: 00 Dextrose (D50w Syringe) 25 ml Q15M PRN IV DECREASED GLUCOSE Last administered on 05/15/17 04:08; Admin Dose 25 ML; Start 05/11/17 at 08:00 Dextrose (D50w Syringe) 50 ml Q15M PRN IV DECREASED GLUCOSE Last administered on 05/15/17 00:11; Admin Dose 50 ML; Start 05/11/17 at 08:00 Glucagon (Glucagen) 1 mg Q15M PRN IM DECREASED GLUCOSE; Start 05/11/17 at 08:00 Glucose (Glutose) 15 gm Q15M PRN BUCCAL DECREASED GLUCOSE; Start 05/11/17 at 08 :00 Epoetin Vasyl 56906 units 10,000 units MoWeFr@17 SC Last administered on 17:33; Admin Dose 10,000 UNITS; Start 05/13/17 at 17:00 Dextrose/Sodium Chloride 1,000 ml @ 100 mls/hr Q10H IV Last administered on 00:59; Admin Dose 100 MLS/HR; Start 05/15/17 at 09:00 Meropenem/Sodium Chloride (Merrem 500mg/50 ml(Pmx)) 50 ml @ 100 mls/hr Q12 IVPB Last administered on 05/15/17 22:07; Admin Dose 100 MLS/HR; Start at 21:00 IV Flush 10 ml 10 ml PRN PRN IV IV PROTOCOL; Start 05/15/17 at 17:30 Magnesium Sulfate (Magnesium Sulfate 2 Gm/50 ml) 50 ml @ 25 mls/hr ONCE ONCE IVPB ; Start 05/16/17 at 08:30; Stop 05/16/17 at 10:29; Status OSMAR FORD DO May 16, 2017 08:28
[2017-05-16] MEDS ORDERED: POTASSIUM CHLORIDE 250 ML IVPB ONE (08:30)
[2017-05-16] MEDS ORDERED: MAGNESIUM SULFATE 2 GM/50 ML 50 ML IVPB ONE (08:30)
[2017-05-16] MEDS: CARBIDOPA/LEVODOPA (25/100) TAB GTB SCH ×3 (09:00→21:00)
[2017-05-16] MEDS: PRAMIPEXOLE 0.25 MG TAB GTB SCH (09:00)
[2017-05-16] MEDS: FERROUS SULFATE (EC) 325 MG TAB PO SCH ×2 (09:00→21:00)
[2017-05-16] MEDS: CLOPIDOGREL 75 MG TAB GTB SCH (09:00)
[2017-05-16] MEDS: FOLIC ACID 1 MG TAB GTB SCH (09:00)
[2017-05-16] MEDS: MULTIVIT/CA CARB/B CMPLX/FA TAB GTB SCH (09:00)
[2017-05-16] MEDS: MEMANTINE 5 MG TAB GTB SCH (09:00)
[2017-05-16] MEDS: CITRIC ACID/NA CITRATE 30 ML CUP PO SCH ×2 (09:00→21:00)
[2017-05-16] MEDS: MEROPENEM 500MG/50 ML (PMX) 50 ML IVPB SCH ×2 (09:10→21:28)
[2017-05-16] MEDS: NYSTATIN 30 GM POWDER BTL TOP SCH ×2 (09:12→21:28)
[2017-05-16] MEDS: MUPIROCIN 2% 22 GM OINT TOP SCH ×2 (09:12→21:28)
[2017-05-16] MEDS: COLLAGENASE 30 GM TUBE TOP SCH (09:13)
--- NOTE | 2017-05-16 09:53 | CONS ---
Date/Time of Note Date/Time of Note DATE: 05/16/17 TIME: 09:52 Consult Date/Type/Reason Admit Date/Time May 06, 2017 at 16:34 Initial Consult Date 05/10/17 Type of Consultation: Pulmonary Subjective Patient remains stable no new events. Continues dopamine. Neurologically unchanged. Objective Vital Signs Date Time Temp Pulse Resp B/P Pulse Ox O2 Delivery O2 Flow Rate FiO2 05/16/17 08:00 71 05/16/17 06:00 12 106/51 100 05/16/17 05:45 Mechanical Ventilator 05/16/17 05:05 30 05/16/17 04:00 98.0 Intake and Output 05/15/17 05/15/17 05/16/17 15:00 23:00 07:00 Intake Total 1176.53 ml 986.88 ml 814.64 ml Output Total 340 ml 200 ml 740 ml Balance 836.53 ml 786.88 ml 74.64 ml Results/Medications Result Diagram: 05/16/17 0500 05/16/17 0500 Results 24 hrs Laboratory Tests Test 05/15/17 12:06 05/15/17 17:29 05/15/17 20:50 05/16/17 01:09 Bedside Glucose 84 100 112 98 Test 05/16/17 05:00 05/16/17 05:11 05/16/17 09:11 White Blood Count 4.0 L Red Blood Count 2.39 L Hemoglobin 6.6 *L Hematocrit 22.3 L Mean Corpuscular Volume 93.3 Mean Corpuscular Hemoglobin 27.6 L Mean Corpuscular Hemoglobin Concent 29.6 L Red Cell Distribution Width 18.8 H Platelet Count 58 L Mean Platelet Volume 12.2 H Neutrophils % 36.2 L Lymphocytes % 23.0 Monocytes % 7.3 Eosinophils % 32.7 H Basophils % 0.3 Nucleated Red Blood Cells % 0.0 Neutrophils # 1.4 L Lymphocytes # 0.9 Monocytes # 0.3 Eosinophils # 1.3 H Basophils # 0.0 Nucleated Red Blood Cells # 0.0 Sodium Level 139 Potassium Level 3.4 L Chloride Level 107 Carbon Dioxide Level 22 Anion Gap 13 Blood Urea Nitrogen 40 #H Creatinine 1.89 H Glucose Level 328 #H Calcium Level 7.8 L Phosphorus Level 5.3 H Magnesium Level 1.6 L Bedside Glucose 113 111 Medications Current Medications Atorvastatin Calcium (Lipitor) 10 mg QHS GTB Last administered on 05/13/17 20: 31; Admin Dose 10 MG; Start 05/06/17 at 21:00 Bisacodyl (Dulcolax Supp) 10 mg Q48H [place] Last administered on 05/12/17 17:57; Admin Dose 10 MG; Start 05/06/17 at 17:00 Carbidopa/Levodopa (Sinemet (25/ 100)) 1 tab TID GTB Last administered on 09:00; Admin Dose 1 TAB; Start 05/06/17 at 21:00 Clopidogrel Bisulfate (plaVIX) 75 mg DAILY GTB Last administered on 05/14/17 09:00; Admin Dose 75 MG; Start 05/07/17 at 09:00 Donepezil HCl (Aricept) 10 mg QHS GTB Last administered on 05/13/17 20:30; Admin Dose 10 MG; Start 05/06/17 at 21:00 Ferrous Sulfate (Ferrous Sulfate (Ec)) 325 mg BID PO Last administered on 09:00; Admin Dose 325 MG; Start 05/06/17 at 21:00 Folic Acid (Folic Acid) 1 mg DAILY GTB Last administered on 05/14/17 09:00; Admin Dose 1 MG; Start 05/07/17 at 09:00 Lactobacillus Acidophilus/ Rhamnosus (Culturelle) 1 cap QHS GTB Last administered on 05/12/17 20:28; Admin Dose 1 CAP; Start 05/06/17 at 21:00 Magnesium Hydroxide (Milk Of Mag) 30 ml Q24H GTB Last administered on 17:57; Admin Dose 30 ML; Start 05/06/17 at 17:00 Memantine (Namenda) 5 mg QAM GTB Last administered on 05/14/17 09:00; Admin Dose 5 MG; Start 05/07/17 at 09:00 Metoprolol Tartrate (Lopressor) 25 mg Q12H GTB ; Start 05/06/17 at 17:00 Multivit/Ca Carb/ B Cmplx/FA/Prenat (Radhika-John) 1 tab DAILY GTB Last administered on 05/14/17 08:59; Admin Dose 1 TAB; Start 05/07/17 at 09:00 Pramipexole (Mirapex) 0.5 mg DAILY GTB Last administered on 05/14/17 09:00; Admin Dose 0.5 MG; Start 05/07/17 at 09:00 Sodium Biphosphate/ Sodium Phosphate (Fleet Enema Pediatric) 118 ml Q72H PRN [place] CONSTIPATION; Start 05/06/17 at 17:00 Citric Acid/ Sodium Citrate (Bicitra) 30 ml BID PO Last administered on 09:00; Admin Dose 30 ML; Start 05/06/17 at 21:00 Heparin Sodium (Porcine) (Heparin (5000 Units/0.5 ml)) 5,000 unit BID SC Last administered on 05/15/17 20:54; Admin Dose 5,000 UNIT; Start 05/06/17 at 21:00 ; Status Future Hold Nystatin (Nystatin Powder) 1 applic BID TOP Last administered on 05/16/17 09: 12; Admin Dose 1 APPLIC; Start 05/09/17 at 21:00 Mupirocin (Bactroban) 1 applic BID TOP Last administered on 05/16/17 09:12; Admin Dose 1 APPLIC; Start 05/09/17 at 12:30 Collagenase (Santyl) 1 applic DAILY TOP Last administered on 05/16/17 09:13; Admin Dose 1 APPLIC; Start 05/09/17 at 15:00 Collagenase 1 applic 1 applic PRN PRN TOP WOUND CARE; Start 05/09/17 at 14:00 Sodium Chloride 1,000 ml @ 0 mls/hr Q0M IV ; Start 05/09/17 at 18:18 Norepinephrine 16 mg/Dextrose 500 ml @ 1.87 mls/hr TITRATE IV ; Start 05/10/17 at 14:00 Dopamine HCl/ Dextrose 250 ml @ 6.848 mls/ hr TITRATE IV Last administered on 05/16/17 07:36; Admin Dose 15.407 MLS/HR; Start 05/10/17 at 18:30 Insulin Aspart (Novolog Insulin Pen) NOVOLOG *MILD* ALGORI... Q4 SC ; Start at 09:00 Miscellaneous Information 1 ea NOTE XX ; Start 05/11/17 at 08:00 Glucose (Glutose) 15 gm Q15M PRN PO DECREASED GLUCOSE; Start 05/11/17 at 08:00 Glucose (Glutose) 22.5 gm Q15M PRN PO DECREASED GLUCOSE; Start 05/11/17 at 08: 00 Dextrose (D50w Syringe) 25 ml Q15M PRN IV DECREASED GLUCOSE Last administered on 05/15/17 04:08; Admin Dose 25 ML; Start 05/11/17 at 08:00 Dextrose (D50w Syringe) 50 ml Q15M PRN IV DECREASED GLUCOSE Last administered on 05/15/17 00:11; Admin Dose 50 ML; Start 05/11/17 at 08:00 Glucagon (Glucagen) 1 mg Q15M PRN IM DECREASED GLUCOSE; Start 05/11/17 at 08:00 Glucose (Glutose) 15 gm Q15M PRN BUCCAL DECREASED GLUCOSE; Start 05/11/17 at 08 :00 Epoetin Vasyl 87433 units 10,000 units MoWeFr@17 SC Last administered on 17:33; Admin Dose 10,000 UNITS; Start 05/13/17 at 17:00 Dextrose/Sodium Chloride 1,000 ml @ 100 mls/hr Q10H IV Last administered on 00:59; Admin Dose 100 MLS/HR; Start 05/15/17 at 09:00 Meropenem/Sodium Chloride (Merrem 500mg/50 ml(Pmx)) 50 ml @ 100 mls/hr Q12 IVPB Last administered on 05/16/17 09:10; Admin Dose 100 MLS/HR; Start at 21:00 IV Flush 10 ml 10 ml PRN PRN IV IV PROTOCOL; Start 05/15/17 at 17:30 Magnesium Sulfate 50 ml @ 25 mls/hr ONCE ONCE IVPB Last administered on 08:50; Admin Dose 25 MLS/HR; Start 05/16/17 at 08:30; Stop 05/16/17 at 10: 29 Potassium Chloride (KCl 40 MEQ/250 ML NS) 250 ml @ 62.5 mls/hr ONCE ONCE IVPB ; Start 05/16/17 at 08:30; Stop 05/16/17 at 12:29 Pantoprazole (Protonix Iv) 40 mg BID@06,18 IV ; Start 05/16/17 at 10:00 Assessment/Plan Chief Complaint/Hosp Course Assessment 1. Chronic encephalopathy unchanged 2. GJ tube site leak with erosion of surrounding skin. 3.Anemia of chronic disease 4. Chronic kidney disease 5. Vent dependent respiratory failure 6. Septic shock Currently vasopressor dependent Plan 1. Pending GI evaluation to replace G-tube, will be performed when patient stable. 2. Continue mechanical ventilation pulmonary toilet 3. Continue wound care 4. Monitor H&H. Transfusion 2 units packed red blood cells Overall prognosis very poor consider palliative care consult Problems: JARED CLAIRE MD, [facility] May 16, 2017 09:53
[2017-05-16] MEDS: PANTOPRAZOLE 40 MG INJ IV SCH ×2 (11:05→17:25)
[2017-05-16] MEDS: BISACODYL 10 MG SUPP PR SCH (16:07)
[2017-05-16] MEDS: MAGNESIUM HYDROXIDE 30ML CUP GTB SCH (16:07)
--- NOTE | 2017-05-16 16:15 | CONS ---
Date/Time of Note Date/Time of Note DATE: 05/16/17 TIME: 16:07 Assessment/Plan Assessment/Plan Chief Complaint/Hosp Course ID PROGRESS NOTE TOTAL ABX DAY # 7 => Vanco IV + Merrem 24H INTERVAL SUMMARY * No new issues, afebrile * Chart reviewed, d/w RN, patient examined * Microbiology: 05/14/17 SPUTUM: RESPIRATORY CULTURE Preliminary Organism 1 PSEUDOMONAS AERUGINOSA QUANTITY 2+ P.AERUG M.I.C. RX --------- --- AMIKACIN <=2 S AZTREONAM R CEFEPIME 16 I CEFTAZIDIME 16 I CIPROFLOXACIN >=4 R GENTAMICIN 2 S IMIPENEM >=16 R LEVOFLOXACIN >=8 R TOBRAMYCIN <=1 S PIPERACILLIN/TAZOBACTAM R * CT of the abdomen revealed induration of the skin and thickening of the subcutaneous fat along the gastrostomy tract, larger right pleural effusion, extensive diverticular disease of the distal colon without evidence of diverticulitis PHYSICAL EXAMINATION: GENERAL: VSS,NAD, no fevers == Obese, eyes open HEENT: NGT->Secure / ETT secure NECK: Supple, trach-> midline CHEST: Equal chest rise bilaterally, Vented HEART: Pulse RRR ABDOMEN: Soft -> see photos large EC fistula residual healing scar, cellulitis w/(+)drainage EXTREMITIES: Warm, no edema SKIN: Warm, dry ID ASSESSMENT: 86 yo F w/PMHx Obesity,Parkinson's dementia w/chronic encephalopathy admitted with: 1. Sepsis w/shock, hypothermia, leukocytosis, lactic acidosis => multifactorial as below * 05/07/17 BCx (-) 2. Acute on chronic respiratory failure w/Trach 3. HCAP => Tracheobronchitis * CT (+)Large right pleural effusion/small left effusion * Respiratory Cx 05/14: Organism 1 PSEUDOMONAS AERUGINOSA QUANTITY 2+ P.AERUG M.I.C. RX --------- --- AMIKACIN <=2 S AZTREONAM R CEFEPIME 16 I CEFTAZIDIME 16 I CIPROFLOXACIN >=4 R GENTAMICIN 2 S IMIPENEM >=16 R LEVOFLOXACIN >=8 R TOBRAMYCIN <=1 S PIPERACILLIN/TAZOBACTAM R 4. 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 5. UTI as per urinalysis on admission => urine was not sent for culture 6. Multiple chronic decub ulcers 7. RASH on admission s/p empiric Elimite x1 w/(-)skin scraping for scabies 8. Acute kidney injury. 9. Diabetes. 10. Acute on chronic anemia. 11. 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 Continue IV ABX and supportive care 2. Respiratory culture ->PSAR MDRO intermediate to Cefepime & sensitive to aminoglycosides == possibly colonized? Will add Colistin INH 3. Aspiration precautions 4. GT site local wound care; topical ointment and absorbant DSG barrier care == Wound Cx * Pending GT site replacement when hemodynamically stable * Case Management family contact noted . . Problems: Consultation Date/Type/Reason Admit Date/Time May 06, 2017 at 16:34 Initial Consult Date 05/12/17 Type of Consultation: ID Exam/Review of Systems Vital Signs Vitals Vital Signs Date Time Temp Pulse Resp B/P Pulse Ox O2 Delivery O2 Flow Rate FiO2 05/16/17 16:00 89 05/16/17 15:15 20 96/44 100 Mechanical Ventilator 05/16/17 13:55 30 05/16/17 12:00 96.9 Intake and Output 05/15/17 05/15/1705/16/17 15:00 23:00 07:00 Intake Total 1176.53 ml 986.88 ml 814.64 ml Output Total 340 ml 200 ml 740 ml Balance 836.53 ml 786.88 ml 74.64 ml Results Result Diagram: 05/16/17 0500 05/16/17 0500 Results 24 hrs Laboratory Tests Test 05/15/17 17:29 05/15/17 20:50 05/16/17 01:09 05/16/17 05:00 Bedside Glucose 100 112 98 White Blood Count 4.0 L Red Blood Count 2.39 L Hemoglobin 6.6 *L Hematocrit 22.3 L Mean Corpuscular Volume 93.3 Mean Corpuscular Hemoglobin 27.6 L Mean Corpuscular Hemoglobin Concent 29.6 L Red Cell Distribution Width 18.8 H Platelet Count 58 L Mean Platelet Volume 12.2 H Neutrophils % 36.2 L Lymphocytes % 23.0 Monocytes % 7.3 Eosinophils % 32.7 H Basophils % 0.3 Nucleated Red Blood Cells % 0.0 Neutrophils # 1.4 L Lymphocytes # 0.9 Monocytes # 0.3 Eosinophils # 1.3 H Basophils # 0.0 Nucleated Red Blood Cells # 0.0 Sodium Level 139 Potassium Level 3.4 L Chloride Level 107 Carbon Dioxide Level 22 Anion Gap 13 Blood Urea Nitrogen 40 #H Creatinine 1.89 H Glucose Level 328 #H Calcium Level 7.8 L Phosphorus Level 5.3 H Magnesium Level 1.6 L Test 05/16/17 05:11 05/16/17 09:11 05/16/17 14:03 Bedside Glucose 113 111 78 Medications Medications Current Medications Atorvastatin Calcium (Lipitor) 10 mg QHS GTB Last administered on 05/13/17 20: 31; Admin Dose 10 MG; Start 05/06/17 at 21:00 Bisacodyl (Dulcolax Supp) 10 mg Q48H GA Last administered on 05/12/17 17:57; Admin Dose 10 MG; Start 05/06/17 at 17:00 Carbidopa/Levodopa (Sinemet ()) 1 tab TID GTB Last administered on 09:00; Admin Dose 1 TAB; Start 05/06/17 at 21:00 Clopidogrel Bisulfate (plaVIX) 75 mg DAILY GTB Last administered on 05/14/17 09:00; Admin Dose 75 MG; Start 05/07/17 at 09:00 Donepezil HCl (Aricept) 10 mg QHS GTB Last administered on 05/13/17 20:30; Admin Dose 10 MG; Start 05/06/17 at 21:00 Ferrous Sulfate (Ferrous Sulfate (Ec)) 325 mg BID PO Last administered on 09:00; Admin Dose 325 MG; Start 05/06/17 at 21:00 Folic Acid (Folic Acid) 1 mg DAILY GTB Last administered on 05/14/17 09:00; Admin Dose 1 MG; Start 05/07/17 at 09:00 Lactobacillus Acidophilus/ Rhamnosus (Culturelle) 1 cap QHS GTB Last administered on 05/12/17 20:28; Admin Dose 1 CAP; Start 05/06/17 at 21:00 Magnesium Hydroxide (Milk Of Mag) 30 ml Q24H GTB Last administered on 17:57; Admin Dose 30 ML; Start 05/06/17 at 17:00 Memantine (Namenda) 5 mg QAM GTB Last administered on 05/14/17 09:00; Admin Dose 5 MG; Start 05/07/17 at 09:00 Metoprolol Tartrate (Lopressor) 25 mg Q12H GTB ; Start 05/06/17 at 17:00 Multivit/Ca Carb/ B Cmplx/FA/Prenat (Radhika-John) 1 tab DAILY GTB Last administered on 05/14/17 08:59; Admin Dose 1 TAB; Start 05/07/17 at 09:00 Pramipexole (Mirapex) 0.5 mg DAILY GTB Last administered on 05/14/17 09:00; Admin Dose 0.5 MG; Start 05/07/17 at 09:00 Sodium Biphosphate/ Sodium Phosphate (Fleet Enema Pediatric) 118 ml Q72H PRN [place] CONSTIPATION; Start 05/06/17 at 17:00 Citric Acid/ Sodium Citrate (Bicitra) 30 ml BID PO Last administered on 09:00; Admin Dose 30 ML; Start 05/06/17 at 21:00 Heparin Sodium (Porcine) (Heparin (5000 Units/0.5 ml)) 5,000 unit BID SC Last administered on 05/15/17 20:54; Admin Dose 5,000 UNIT; Start 05/06/17 at 21:00 ; Status Future Hold Nystatin (Nystatin Powder) 1 applic BID TOP Last administered on 05/16/17 09: 12; Admin Dose 1 APPLIC; Start 05/09/17 at 21:00 Mupirocin (Bactroban) 1 applic BID TOP Last administered on 05/16/17 09:12; Admin Dose 1 APPLIC; Start 05/09/17 at 12:30 Collagenase (Santyl) 1 applic DAILY TOP Last administered on 05/16/17 09:13; Admin Dose 1 APPLIC; Start 05/09/17 at 15:00 Collagenase 1 applic 1 applic PRN PRN TOP WOUND CARE; Start 05/09/17 at 14:00 Sodium Chloride 1,000 ml @ 0 mls/hr Q0M IV ; Start 05/09/17 at 18:18 Norepinephrine 16 mg/Dextrose 500 ml @ 1.87 mls/hr TITRATE IV ; Start 05/10/17 at 14:00 Dopamine HCl/ Dextrose 250 ml @ 6.848 mls/ hr TITRATE IV Last administered on 05/16/17 07:36; Admin Dose 15.407 MLS/HR; Start 05/10/17 at 18:30 Insulin Aspart (Novolog Insulin Pen) NOVOLOG *MILD* ALGORI... Q4 SC ; Start at 09:00 Miscellaneous Information 1 ea NOTE XX ; Start 05/11/17 at 08:00 Glucose (Glutose) 15 gm Q15M PRN PO DECREASED GLUCOSE; Start 05/11/17 at 08:00 Glucose (Glutose) 22.5 gm Q15M PRN PO DECREASED GLUCOSE; Start 05/11/17 at 08: 00 Dextrose (D50w Syringe) 25 ml Q15M PRN IV DECREASED GLUCOSE Last administered on 05/15/17 04:08; Admin Dose 25 ML; Start 05/11/17 at 08:00 Dextrose (D50w Syringe) 50 ml Q15M PRN IV DECREASED GLUCOSE Last administered on 05/15/17 00:11; Admin Dose 50 ML; Start 05/11/17 at 08:00 Glucagon (Glucagen) 1 mg Q15M PRN IM DECREASED GLUCOSE; Start 05/11/17 at 08:00 Glucose (Glutose) 15 gm Q15M PRN BUCCAL DECREASED GLUCOSE; Start 05/11/17 at 08 :00 Epoetin Vasyl 37032 units 10,000 units MoWeFr@17 SC Last administered on 17:33; Admin Dose 10,000 UNITS; Start 05/13/17 at 17:00 Meropenem/Sodium Chloride (Merrem 500mg/50 ml(Pmx)) 50 ml @ 100 mls/hr Q12 IVPB Last administered on 05/16/17 09:10; Admin Dose 100 MLS/HR; Start at 21:00 IV Flush (NS 10 ml) 10 ml PRN PRN IV IV PROTOCOL; Start 05/15/17 at 17:30 Pantoprazole 40 mg 40 mg BID@06,18 IV Last administered on 05/16/17 11:05; Admin Dose 40 MG; Start 05/16/17 at 10:00 Total Parenteral Nutrition 1,000 ml @ 40 mls/hr Q24H IV ; Start 05/16/17 at 12: 00 Fat Emulsion Intravenous 250 ml @ 10.4 mls/hr Q24H IV ; Start 05/16/17 at 12:00 Sodium Chloride (1/2 NS) 1,000 ml @ 50 mls/hr Q20H IV ; Start 05/16/17 at 16:00 SYLVIA PADRON NP May 16, 2017 16:15
[2017-05-16] MEDS: TPN 1,000 ML IV SCH (17:09)
[2017-05-16] MEDS: FAT EMULSION 20% 250 ML IV SCH (17:09)
[2017-05-16] MEDS: SOD CHLORIDE 0.45% 1,000 ML IV SCH (17:10)
--- NOTE | 2017-05-16 18:35 | CONS ---
Date/Time of Note Date/Time of Note DATE: 05/16/17 TIME: 18:35 Assessment/Plan Assessment/Plan Chief Complaint/Hosp Course This 69-year-old female with a history of CVA vent dependent respiratory failure , was brought to the emergency room for the dislodgment of the GJ tube. Patient is nonverbal and no information can be obtained. No GI bleeding no chest pain no shortness of breath. Problems: Additional Assessment/Plan Problems: Additional Assessment/Plan Additional Assessment/Plan Additional Assessment/Plan 1. Dislodged of the GJ tube accidentally 2. Vent dependent respiratory failure 3. Chronic encephalopathy 4. Renal failure 5. Peripheral vascular disease 6. Anemia 7. Hypertension patient is still on dopamine Plan GJ tube, could not be done. GI lab did not have GJ tube. Hospital did not have GJ tube I will bring it from other facility. Case discussed with Dr. Blackburn and told him to proceed with jejunostomy tube, [facility] does not have GJ tube and because of her anatomy it is technically difficult to prevent the leakage around G-tube site Jejunostomy tube as per surgeon. Awaiting for the blood pressure to be stabilized before surgery Consultation Date/Type/Reason Admit Date/Time May 06, 2017 at 16:34 Type of Consultation: ID 24 HR Interval Summary Subjective hx not possible: pt non-verbal Exam/Review of Systems Vital Signs Vitals Vital Signs Date Time Temp Pulse Resp B/P Pulse Ox O2 Delivery O2 Flow Rate FiO2 05/16/17 18:00 97 18 90/41 98 Mechanical Ventilator 05/16/17 17:40 30 05/16/17 16:00 97.4 Intake and Output 05/15/17 05/15/17 05/16/17 15:00 23:00 07:00 Intake Total 1176.53 ml 986.88 ml 814.64 ml Output Total 340 ml 200 ml 740 ml Balance 836.53 ml 786.88 ml 74.64 ml Exam Constitutional: alert, oriented, well developed Psych: nl mood/affect, no complaints Head: atraumatic, normocephalic Eyes: EOMI, PERRL, nl conjunctiva, nl lids, nl sclera ENMT: nl external ears & nose, nl lips & teeth, nl nasal mucosa & septum Neck: non-tender, supple Respiratory: clear to auscultation, normal air movement Cardiovascular: nl pulses, regular rate and rhythm Gastrointestinal: nl liver, spleen, non-tender, soft Musculoskeletal: nl extremities to inspection, nl gait and stance Extremities: normal pulses Neurological: MANAGER RISK MANAGEMENT II-XII intact, nl mental status, nl speech, nl strength Skin: nl turgor, No rash or lesions Lymph: nl lymph nodes Results Result Diagram: 05/16/17 0500 05/16/17 0500 Results 24 hrs Laboratory Tests Test 05/15/17 20:50 05/16/17 01:09 05/16/17 05:00 05/16/17 05:11 Bedside Glucose 112 98 113 White Blood Count 4.0 L Red Blood Count 2.39 L Hemoglobin 6.6 *L Hematocrit 22.3 L Mean Corpuscular Volume 93.3 Mean Corpuscular Hemoglobin 27.6 L Mean Corpuscular Hemoglobin Concent 29.6 L Red Cell Distribution Width 18.8 H Platelet Count 58 L Mean Platelet Volume 12.2 H Neutrophils % 36.2 L Lymphocytes % 23.0 Monocytes % 7.3 Eosinophils % 32.7 H Basophils % 0.3 Nucleated Red Blood Cells % 0.0 Neutrophils # 1.4 L Lymphocytes # 0.9 Monocytes # 0.3 Eosinophils # 1.3 H Basophils # 0.0 Nucleated Red Blood Cells # 0.0 Sodium Level 139 Potassium Level 3.4 L Chloride Level 107 Carbon Dioxide Level 22 Anion Gap 13 Blood Urea Nitrogen 40 #H Creatinine 1.89 H Glucose Level 328 #H Calcium Level 7.8 L Phosphorus Level 5.3 H Magnesium Level 1.6 L Test 05/16/17 09:11 05/16/17 14:03 05/16/17 18:00 Bedside Glucose 111 78 77 Medications Medications Current Medications Atorvastatin Calcium (Lipitor) 10 mg QHS GTB Last administered on 05/13/17 20: 31; Admin Dose 10 MG; Start 05/06/17 at 21:00 Bisacodyl (Dulcolax Supp) 10 mg Q48H RI Last administered on 05/12/17 17:57; Admin Dose 10 MG; Start 05/06/17 at 17:00 Carbidopa/Levodopa (Sinemet (25/ 100)) 1 tab TID GTB Last administered on 09:00; Admin Dose 1 TAB; Start 05/06/17 at 21:00 Clopidogrel Bisulfate (plaVIX) 75 mg DAILY GTB Last administered on 05/14/17 09:00; Admin Dose 75 MG; Start 05/07/17 at 09:00 Donepezil HCl (Aricept) 10 mg QHS GTB Last administered on 05/13/17 20:30; Admin Dose 10 MG; Start 05/06/17 at 21:00 Ferrous Sulfate (Ferrous Sulfate (Ec)) 325 mg BID PO Last administered on 09:00; Admin Dose 325 MG; Start 05/06/17 at 21:00 Folic Acid (Folic Acid) 1 mg DAILY GTB Last administered on 05/14/17 09:00; Admin Dose 1 MG; Start 05/07/17 at 09:00 Lactobacillus Acidophilus/ Rhamnosus (Culturelle) 1 cap QHS GTB Last administered on 05/12/17 20:28; Admin Dose 1 CAP; Start 05/06/17 at 21:00 Magnesium Hydroxide (Milk Of Mag) 30 ml Q24H GTB Last administered on 17:57; Admin Dose 30 ML; Start 05/06/17 at 17:00 Memantine (Namenda) 5 mg QAM GTB Last administered on 05/14/17 09:00; Admin Dose 5 MG; Start 05/07/17 at 09:00 Metoprolol Tartrate (Lopressor) 25 mg Q12H GTB ; Start 05/06/17 at 17:00 Multivit/Ca Carb/ B Cmplx/FA/Prenat (Radhika-John) 1 tab DAILY GTB Last administered on 05/14/17 08:59; Admin Dose 1 TAB; Start 05/07/17 at 09:00 Pramipexole (Mirapex) 0.5 mg DAILY GTB Last administered on 05/14/17 09:00; Admin Dose 0.5 MG; Start 05/07/17 at 09:00 Sodium Biphosphate/ Sodium Phosphate (Fleet Enema Pediatric) 118 ml Q72H PRN RI CONSTIPATION; Start 05/06/17 at 17:00 Citric Acid/ Sodium Citrate (Bicitra) 30 ml BID PO Last administered on 09:00; Admin Dose 30 ML; Start 05/06/17 at 21:00 Heparin Sodium (Porcine) (Heparin (5000 Units/0.5 ml)) 5,000 unit BID SC Last administered on 05/15/17 20:54; Admin Dose 5,000 UNIT; Start 05/06/17 at 21:00 ; Status Future Hold Nystatin (Nystatin Powder) 1 applic BID TOP Last administered on 05/16/17 09: 12; Admin Dose 1 APPLIC; Start 05/09/17 at 21:00 Mupirocin (Bactroban) 1 applic BID TOP Last administered on 05/16/17 09:12; Admin Dose 1 APPLIC; Start 05/09/17 at 12:30 Collagenase (Santyl) 1 applic DAILY TOP Last administered on 05/16/17 09:13; Admin Dose 1 APPLIC; Start 05/09/17 at 15:00 Collagenase 1 applic 1 applic PRN PRN TOP WOUND CARE; Start 05/09/17 at 14:00 Sodium Chloride 1,000 ml @ 0 mls/hr Q0M IV ; Start 05/09/17 at 18:18 Norepinephrine 16 mg/Dextrose 500 ml @ 1.87 mls/hr TITRATE IV ; Start 05/10/17 at 14:00 Dopamine HCl/ Dextrose 250 ml @ 6.848 mls/ hr TITRATE IV Last administered on 05/16/17 07:36; Admin Dose 15.407 MLS/HR; Start 05/10/17 at 18:30 Insulin Aspart (Novolog Insulin Pen) NOVOLOG *MILD* ALGORI... Q4 SC ; Start at 09:00 Miscellaneous Information 1 ea NOTE XX ; Start 05/11/17 at 08:00 Glucose (Glutose) 15 gm Q15M PRN PO DECREASED GLUCOSE; Start 05/11/17 at 08:00 Glucose (Glutose) 22.5 gm Q15M PRN PO DECREASED GLUCOSE; Start 05/11/17 at 08: 00 Dextrose (D50w Syringe) 25 ml Q15M PRN IV DECREASED GLUCOSE Last administered on 05/15/17 04:08; Admin Dose 25 ML; Start 05/11/17 at 08:00 Dextrose (D50w Syringe) 50 ml Q15M PRN IV DECREASED GLUCOSE Last administered on 05/15/17 00:11; Admin Dose 50 ML; Start 05/11/17 at 08:00 Glucagon (Glucagen) 1 mg Q15M PRN IM DECREASED GLUCOSE; Start 05/11/17 at 08:00 Glucose (Glutose) 15 gm Q15M PRN BUCCAL DECREASED GLUCOSE; Start 05/11/17 at 08 :00 Epoetin Vasyl 43473 units 10,000 units MoWeFr@17 SC Last administered on 17:33; Admin Dose 10,000 UNITS; Start 05/13/17 at 17:00 Meropenem/Sodium Chloride (Merrem 500mg/50 ml(Pmx)) 50 ml @ 100 mls/hr Q12 IVPB Last administered on 05/16/17 09:10; Admin Dose 100 MLS/HR; Start at 21:00 IV Flush (NS 10 ml) 10 ml PRN PRN IV IV PROTOCOL; Start 05/15/17 at 17:30 Pantoprazole 40 mg 40 mg BID@06,18 IV Last administered on 05/16/17 17:25; Admin Dose 40 MG; Start 05/16/17 at 10:00 Total Parenteral Nutrition 1,000 ml @ 40 mls/hr Q24H IV Last administered on 17:09; Admin Dose 40 MLS/HR; Start 05/16/17 at 12:00 Fat Emulsion Intravenous 250 ml @ 10.4 mls/hr Q24H IV Last administered on 17:09; Admin Dose 10.4 MLS/HR; Start 05/16/17 at 12:00 Sodium Chloride (1/2 NS) 1,000 ml @ 50 mls/hr Q20H IV Last administered on 17:10; Admin Dose 50 MLS/HR; Start 05/16/17 at 16:00 SYLWIA SY MD May 16, 2017 18:35
[2017-05-16 18:49] LABS: HEMATOCRIT 28.3 % (37.0-47.0); HEMOGLOBIN 8.9 g/dl (12.0-16.0)
[2017-05-16] MEDS: DONEPEZIL 10 MG TAB GTB SCH (21:00)
[2017-05-16] MEDS: LACTOBACILLUS RHAMNOSUS CAP GTB SCH (21:00)
[2017-05-16] MEDS: ATORVASTATIN 10 MG TAB GTB SCH (21:00)
[2017-05-16] MEDS: COLISTIMETHATE (25 MG/ML INHAL SYG) NEB SCH (23:47)
[2017-05-17] VITALS (102 sets, daily range): BP systolic 70–139; BP diastolic 30–78; PULSE 74–100; RESP 10–23
[2017-05-17] MEDS: INSULIN ASPART [NOVOLOG] 3 ML PEN SC SCH ×6 (01:00→21:00)
[2017-05-17] MEDS: METOPROLOL 25 MG TAB GTB SCH ×2 (05:00→16:47)
[2017-05-17] MEDS: PANTOPRAZOLE 40 MG INJ IV SCH ×2 (05:57→17:18)
[2017-05-17 06:50] LABS: ABNORMAL IP MESSAGE 1; HEMATOCRIT 28.5 % (37.0-47.0); MEAN CORPUSCULAR HEMOGLOBIN 29.1 pg (29.0-33.0); MEAN CORPUSCULAR HGB CONC 31.6 g/dl (32.0-37.0); MEAN CORPUSCULAR VOLUME 92.2 fl (82.0-101.0); MEAN PLATELET VOLUME 11.5 fl (7.4-10.4); PLATELET COUNT 92 10^3/UL (140-415); RED BLOOD COUNT 3.09 10^6/ul (4.20-5.40); WHITE BLOOD COUNT 5.5 10^3/ul (4.8-10.8)
[2017-05-17 06:58] LABS: POSITIVE DIFF @See below
--- NOTE | 2017-05-17 07:58 | PN ---
Date/Time of Note Date/Time of Note DATE: 05/17/17 TIME: 07:55 Assessment/Plan VTE Prophylaxis VTE Prophylaxis Intervention: other Lines/Catheters IV Catheter Type (from Nrsg): PICC Line Central line still needed: Yes Urinary Cath still in place: Yes Reason Cath still needed: other (indicate) Assessment/Plan Chief Complaint/Hosp Course 1. Septic shock Etiology likely multifactorial, pneumonia, cellulitis, wounds, Unable to be weaned off pressors Continue IV fluids, broad-spectrum antibiotics CT abdomen shows no acute intra-abdominal process Follow-up with infectious disease, monitor serial lactic acid levels Anemia Sources appears to be GIs but is coming from ostomy site We will transfuse 2 units of PRBC with appropriate response Follow-up with GI recommendations Continue PPI We will hold heparin dysphagia- g tube dislodged, Continue to monitor Follow-up with GI Patient continues to have leak around ostomy site general surgery was consulted planning for J-tube placement once clinically stable Patient was started on TPN for nutrition Acute hypoxemic respiratory failure status post trach Vent settings ABGs been reviewed Follow-up with pulmonary 3. Nonoliguric acute kidney injury on top of chronic kidney disease stage 4. Etiology hemodynamics, possible progression of disease Urinary output improved Continue to monitor closely No immediate need for renal replacement therapy at this time Hypernatremia Improved chf -cont med/royce -f/u cardiology Give intermittent diuresis, monitor closely in the setting of pressors Right large pleural effusion Consider thoracentesis Monitor closely on diuretics 8. Acute encephalopathy and advanced dementia. Etiology is toxic metabolic. Continue to monitor. 9. Mineral bone disorder. Continue to monitor calcium and phosphorus levels. 10. Pancytopenia Monitor 11. Coronary artery disease. Continue medical management. 12. Diabetes. Continue Accu-Cheks and insulin sliding scale. 13. Decubitus wound. Continue wound care. Gastrointestinal and deep venous thrombosis prophylaxis. Continue proton pump inhibitor hold heparin Hypomagnesemia Replete magnesium sulfate as needed Disposition. Patient has poor prognosis, Left a message with the patient's son to discuss overall goals of care Please note spent over 40 minutes of critical care time with this patient Problems: Subjective 24 Hr Interval Summary Free Text/Dictation Patient remains critically ill Unable to be weaned off pressure support Left many messages for the patient's son discussing overall goals of care, waiting for reply No further bleeding noted Patient started on TPN yesterday Exam/Review of Systems Vital Signs Vitals Vital Signs Date Time Temp Pulse Resp B/P Pulse Ox O2 Delivery O2 Flow Rate FiO2 05/17/17 06:15 95 12 119/43 100 05/17/17 06:00 Mechanical Ventilator 05/17/17 05:29 30 05/17/17 00:00 98.3 Intake and Output 05/16/17 05/16/17 05/17/17 15:00 23:00 07:00 Intake Total 808.21 ml 794.190 ml 862.752 ml Output Total 415 ml 415 ml 725 ml Balance 393.21 ml 379.190 ml 137.752 ml Exam Positive HEENT: Head is normocephalic, NECK: Supple. HEART: Irregular LUNGS: Show diminished breath sounds at base. ABDOMEN: Soft, nontender to palpation without rebound or guarding. EXTREMITIES: Negative for clubbing, cyanosis. Positive contractures DERMATOLOGIC: No rashes. MUSCULOSKELETAL: No joint effusions, NEUROLOGIC: No change in exam. Results Result Diagram: 05/17/17 0613 05/16/17 0500 Results 24 hrs Laboratory Tests Test 05/16/17 09:11 05/16/17 14:03 05/16/17 18:00 05/16/17 18:29 Bedside Glucose 111 78 77 Hemoglobin 8.9 #L Hematocrit 28.3 #L Test 05/16/17 21:36 05/17/17 01:36 05/17/17 05:02 05/17/17 05:56 Bedside Glucose 91 97 91 Lab Scanned Report BLOOD TRANSFUSION Test 05/17/17 06:13 White Blood Count 5.5 # Red Blood Count 3.09 #L Hemoglobin 9.0 L Hematocrit 28.5 L Mean Corpuscular Volume 92.2 Mean Corpuscular Hemoglobin 29.1 Mean Corpuscular Hemoglobin Concent 31.6 L Red Cell Distribution Width 18.0 H Platelet Count 92 #L Mean Platelet Volume 11.5 H Neutrophils % Lymphocytes % Monocytes % Eosinophils % Basophils % Nucleated Red Blood Cells % 0.0 Neutrophils # Lymphocytes # Monocytes # Eosinophils # Basophils # Nucleated Red Blood Cells # Medications Medications Current Medications Atorvastatin Calcium (Lipitor) 10 mg QHS GTB Last administered on 05/13/17t 20: 31; Admin Dose 10 MG; Start 05/06/17 at 21:00 Bisacodyl (Dulcolax Supp) 10 mg Q48H [place] Last administered on 05/12/17 17:57; Admin Dose 10 MG; Start 05/06/17 at 17:00 Carbidopa/Levodopa (Sinemet (/ )) 1 tab TID GTB Last administered on 09:00; Admin Dose 1 TAB; Start 05/06/17 at 21:00 Clopidogrel Bisulfate (plaVIX) 75 mg DAILY GTB Last administered on 05/14/17 09:00; Admin Dose 75 MG; Start 05/07/17 at 09:00 Donepezil HCl (Aricept) 10 mg QHS GTB Last administered on 05/13/17 20:30; Admin Dose 10 MG; Start 05/06/17 at 21:00 Ferrous Sulfate (Ferrous Sulfate (Ec)) 325 mg BID PO Last administered on 09:00; Admin Dose 325 MG; Start 05/06/17 at 21:00 Folic Acid (Folic Acid) 1 mg DAILY GTB Last administered on 05/14/17 09:00; Admin Dose 1 MG; Start 05/07/17 at 09:00 Lactobacillus Acidophilus/ Rhamnosus (Culturelle) 1 cap QHS GTB Last administered on 05/12/17 20:28; Admin Dose 1 CAP; Start 05/06/17 at 21:00 Magnesium Hydroxide (Milk Of Mag) 30 ml Q24H GTB Last administered on 17:57; Admin Dose 30 ML; Start 05/06/17 at 17:00 Memantine (Namenda) 5 mg QAM GTB Last administered on 05/14/17 09:00; Admin Dose 5 MG; Start 05/07/17 at 09:00 Metoprolol Tartrate (Lopressor) 25 mg Q12H GTB ; Start 05/06/17 at 17:00 Multivit/Ca Carb/ B Cmplx/FA/Prenat (Radhika-John) 1 tab DAILY GTB Last administered on 05/14/17 08:59; Admin Dose 1 TAB; Start 05/07/17 at 09:00 Pramipexole (Mirapex) 0.5 mg DAILY GTB Last administered on 05/14/17 09:00; Admin Dose 0.5 MG; Start 05/07/17 at 09:00 Sodium Biphosphate/ Sodium Phosphate (Fleet Enema Pediatric) 118 ml Q72H PRN [place] CONSTIPATION; Start 05/06/17 at 17:00 Citric Acid/ Sodium Citrate (Bicitra) 30 ml BID PO Last administered on 09:00; Admin Dose 30 ML; Start 05/06/17 at 21:00 Heparin Sodium (Porcine) (Heparin (5000 Units/0.5 ml)) 5,000 unit BID SC Last administered on 05/15/17 20:54; Admin Dose 5,000 UNIT; Start 05/06/17 at 21:00 ; Status Future Hold Nystatin (Nystatin Powder) 1 applic BID TOP Last administered on 05/16/17 21: 28; Admin Dose 1 APPLIC; Start 05/09/17 at 21:00 Mupirocin (Bactroban) 1 applic BID TOP Last administered on 05/16/17 21:28; Admin Dose 1 APPLIC; Start 05/09/17 at 12:30 Collagenase (Santyl) 1 applic DAILY TOP Last administered on 05/16/17 09:13; Admin Dose 1 APPLIC; Start 05/09/17 at 15:00 Collagenase 1 applic 1 applic PRN PRN TOP WOUND CARE; Start 05/09/17 at 14:00 Sodium Chloride 1,000 ml @ 0 mls/hr Q0M IV ; Start 05/09/17 at 18:18 Norepinephrine 16 mg/Dextrose 500 ml @ 1.87 mls/hr TITRATE IV ; Start 05/10/17 at 14:00 Dopamine HCl/ Dextrose 250 ml @ 6.848 mls/ hr TITRATE IV Last administered on 05/16/17 23:08; Admin Dose 27.39 MLS/HR; Start 05/10/17 at 18:30 Insulin Aspart (Novolog Insulin Pen) NOVOLOG *MILD* ALGORI... Q4 SC ; Start at 09:00 Miscellaneous Information 1 ea NOTE XX ; Start 05/11/17 at 08:00 Glucose (Glutose) 15 gm Q15M PRN PO DECREASED GLUCOSE; Start 05/11/17 at 08:00 Glucose (Glutose) 22.5 gm Q15M PRN PO DECREASED GLUCOSE; Start 05/11/17 at 08: 00 Dextrose (D50w Syringe) 25 ml Q15M PRN IV DECREASED GLUCOSE Last administered on 05/15/17 04:08; Admin Dose 25 ML; Start 05/11/17 at 08:00 Dextrose (D50w Syringe) 50 ml Q15M PRN IV DECREASED GLUCOSE Last administered on 05/15/17 00:11; Admin Dose 50 ML; Start 05/11/17 at 08:00 Glucagon (Glucagen) 1 mg Q15M PRN IM DECREASED GLUCOSE; Start 05/11/17 at 08:00 Glucose (Glutose) 15 gm Q15M PRN BUCCAL DECREASED GLUCOSE; Start 05/11/17 at 08 :00 Epoetin Vasyl 47138 units 10,000 units MoWeFr@17 SC Last administered on 17:33; Admin Dose 10,000 UNITS; Start 05/13/17 at 17:00 Meropenem/Sodium Chloride (Merrem 500mg/50 ml(Pmx)) 50 ml @ 100 mls/hr Q12 IVPB Last administered on 05/16/17 21:28; Admin Dose 100 MLS/HR; Start at 21:00 IV Flush (NS 10 ml) 10 ml PRN PRN IV IV PROTOCOL; Start 05/15/17 at 17:30 Pantoprazole 40 mg 40 mg BID@06,18 IV Last administered on 05/17/17 05:57; Admin Dose 40 MG; Start 05/16/17 at 10:00 Total Parenteral Nutrition 1,000 ml @ 40 mls/hr Q24H IV Last administered on 17:09; Admin Dose 40 MLS/HR; Start 05/16/17 at 12:00 Fat Emulsion Intravenous 250 ml @ 10.4 mls/hr Q24H IV Last administered on 17:09; Admin Dose 10.4 MLS/HR; Start 05/16/17 at 12:00 Sodium Chloride (1/2 NS) 1,000 ml @ 50 mls/hr Q20H IV Last administered on 17:10; Admin Dose 50 MLS/HR; Start 05/16/17 at 16:00 OSMAR MONTAGUE DO May 17, 2017 07:58
[2017-05-17 08:23] LABS: CALCIUM 8.3 mg/dl (8.4-10.2); CREATININE 2.01 mg/dl (0.44-1.00); MAGNESIUM 2.2 mg/dl (1.7-2.5); PHOSPHORUS 4.7 mg/dl (2.5-4.9); POTASSIUM 4.2 mmol/L (3.5-5.1)
[2017-05-17 08:34] LABS: ANISOCYTOSIS 1+ (0-0); EOSINOPHILS % (M) 24 % (0-7); MICROCYTOSIS 1+ (0-0); MONOCYTES % (M) 4 % (0-11); PLATELET ESTIMATE DECREASED; POLYCHROMASIA 3+ (0-0)
[2017-05-17] MEDS: NYSTATIN 30 GM POWDER BTL TOP SCH ×2 (09:11→21:53)
[2017-05-17] MEDS: MUPIROCIN 2% 22 GM OINT TOP SCH ×2 (09:11→21:53)
[2017-05-17] MEDS: MEROPENEM 500MG/50 ML (PMX) 50 ML IVPB SCH ×2 (09:11→21:19)
[2017-05-17] MEDS: COLLAGENASE 30 GM TUBE TOP SCH (09:12)
[2017-05-17] MEDS: COLISTIMETHATE (25 MG/ML INHAL SYG) NEB SCH ×2 (09:49→20:09)
[2017-05-17] MEDS: CITRIC ACID/NA CITRATE 30 ML CUP PO SCH ×2 (10:40→21:25)
[2017-05-17] MEDS: MEMANTINE 5 MG TAB GTB SCH (10:40)
[2017-05-17] MEDS: CLOPIDOGREL 75 MG TAB GTB SCH (10:40)
[2017-05-17] MEDS: PRAMIPEXOLE 0.25 MG TAB GTB SCH (10:40)
[2017-05-17] MEDS: CARBIDOPA/LEVODOPA (25/100) TAB GTB SCH ×3 (10:40→21:18)
[2017-05-17] MEDS: FOLIC ACID 1 MG TAB GTB SCH (10:41)
[2017-05-17] MEDS: FERROUS SULFATE (EC) 325 MG TAB PO SCH ×2 (10:41→21:18)
[2017-05-17] MEDS: MULTIVIT/CA CARB/B CMPLX/FA TAB GTB SCH (10:41)
--- NOTE | 2017-05-17 11:37 | PN ---
Date/Time of Note Date/Time of Note DATE: 05/17/17 TIME: 11:29 Assessment/Plan Lines/Catheters IV Catheter Type (from Nrs): PICC Line Collazo in Place (from Nrs): Yes Assessment/Plan Chief Complaint/Hosp Course 1. G-tube dislodgement: replaced with gjtube by GI, copious amount of coffee ground drainage peristomal; attempt use of gjtube in place for feeding through j port -possible surgical placement of jtube when medically stable 2. Septic shock: multifactorial: 2/2: pneumonia + cellulitis + wounds; on pressors -abx -supportive 3. Respiratory failure with trach: PNA wtih pulm edema; comfortable on vent -pulmonary toilet -abx -supportive 4.STARLA with CKD; +urine output; cr improved -judicious fluids -renally dose meds -per nephrology 5. Leukopenia:2/2 #2, normalized -support -as above 4. Hypernatremia: -judicious fluid management 5. Normocytic anemia: coffee ground drainage peristoma; s/p prbc transfusion -monitor and transfuse as needed -continue Epogen 6. Hypokalemia: normalized -optimize lytes 7. CHF -supportive -f/u cardiology 8. Diabetes: labile 9. Acute encephalopathy with history of advanced dementia. -supportive 10. Coronary artery disease. 11. Decubitus wound. Continue wound care. 12. r/o scabies: treated prophylactically 13. Thrombocytopenia 14. Peristomal cellulitis 2/2 #1; gjtube placed in ostomy bag for drainage -local care -abx 15. Pancytopenia 16. Hypocalcemia -replete and monitor 17. Hypomagnesemia Patient seen and examined in collaboration with Dr. Meliton Blackburn Problems: Subjective 24 Hr Interval Summary s/p prbc transfusion, electrolyte replacements, on TPN and pressors. hypothermia yesterday. normothermic todayAppears comfortable on vent. Drainage from gtube more bilious today. Exam/Review of Systems Vital Signs Vitals Vital Signs Date Time Temp Pulse Resp B/P Pulse Ox O2 Delivery O2 Flow Rate FiO2 05/17/17 10:30 81 12 112/41 99 Mechanical Ventilator 05/17/17 09:50 30 05/17/17 08:00 97.0 Intake and Output 05/16/17 05/16/1705/17/17 15:00 23:00 07:00 Intake Total 808.21 ml 794.190 ml 983.652 ml Output Total 415 ml 415 ml 835 ml Balance 393.21 ml 379.190 ml 148.652 ml Exam Free Text/Dictation Constitutional: alert, non-verbal, No oriented Psych: confusion Head: atraumatic, normocephalic Eyes: PERRL, nl sclera ENMT: mucosa pink and moist Neck: non-tender, other (trach), supple Respiratory: congested cough Cardiovascular: edema Gastrointestinal: distended (mod), other (improved peristomal leak: bilious drainage to ostomy bag), soft, tender Musculoskeletal: No muscle tone Extremities: edema Neurological: No nl mental status, No nl speech Skin: other (abdominal/peristomal/breast fold redness, moisture damage; ) Results Result Diagram: 05/17/17 0613 05/17/17 0613 SHADI CALDERON NP May 17, 2017 11:37
--- NOTE | 2017-05-17 12:02 | CONS ---
Date/Time of Note Date/Time of Note DATE: 05/17/17 TIME: 12:01 Assessment/Plan Assessment/Plan Chief Complaint/Hosp Course This 69-year-old female with a history of CVA vent dependent respiratory failure , was brought to the emergency room for the dislodgment of the GJ tube. Patient is nonverbal and no information can be obtained. No GI bleeding no chest pain no shortness of breath. Problems: Additional Assessment/Plan Additional Assessment/Plan Additional Assessment/Plan 1. Dislodged of the GJ tube accidentally 2. Vent dependent respiratory failure 3. Chronic encephalopathy 4. Renal failure 5. Peripheral vascular disease 6. Anemia 7. Hypertension patient is still on dopamine Plan GJ tube, could not be done. GI lab did not have GJ tube. Hospital did not have GJ tube I will bring it from other facility. Case discussed with Dr. Blackburn and told him to proceed with jejunostomy tube, [facility] does not have GJ tube and because of her anatomy it is technically difficult to prevent the leakage around G-tube site Jejunostomy tube as per surgeon. Awaiting for the blood pressure to be stabilized before surgery Resume feeding through the jejunostomy port connect gastrostomy port to gravity. Discussed with Dr. Blackburn for the placement of jejunostomy tube and closure of the G-tube site. Son wants everything to be done Consultation Date/Type/Reason Admit Date/Time May 06, 2017 at 16:34 Type of Consultation: ID [id number] HR Interval Summary Subjective hx not possible: pt non-verbal Exam/Review of Systems Vital Signs Vitals Vital Signs Date Time Temp Pulse Resp B/P Pulse Ox O2 Delivery O2 Flow Rate FiO2 05/17/17 10:30 81 12 112/41 99 Mechanical Ventilator 05/17/17 09:50 30 05/17/17 08:00 97.0 Intake and Output 05/16/17 05/16/17 05/17/17 14:59 22:59 06:59 Intake Total 844.0 ml 753.806 ml 982.746 ml Output Total 375 ml 380 ml 800 ml Balance 469.0 ml 373.806 ml 182.746 ml Exam Respiratory: other (Patient is on vent) Cardiovascular: nl pulses, regular rate and rhythm Gastrointestinal: nl liver, spleen, non-tender, other (GJ tube still in place with the balloon ruptured), soft Extremities: normal pulses Results Result Diagram: 05/17/17 0613 05/17/17 0613 Results 24 hrs Laboratory Tests Test 05/16/17 14:03 05/16/17 18:00 05/16/17 18:29 05/16/17 21:36 Bedside Glucose 78 77 91 Hemoglobin 8.9 #L Hematocrit 28.3 #L Test 05/17/17 01:36 05/17/17 05:02 05/17/17 05:56 05/17/17 06:13 Bedside Glucose 97 91 Lab Scanned Report BLOOD TRANSFUSION White Blood Count 5.5 # Red Blood Count 3.09 #L Hemoglobin 9.0 L Hematocrit 28.5 L Mean Corpuscular Volume 92.2 Mean Corpuscular Hemoglobin 29.1 Mean Corpuscular Hemoglobin Concent 31.6 L Red Cell Distribution Width 18.0 H Platelet Count 92 #L Mean Platelet Volume 11.5 H Neutrophils % Segmented Neutrophils % (Manual) 40 Lymphocytes % Lymphocytes % (Manual) 33 Monocytes % Monocytes % (Manual) 4 Eosinophils % Eosinophils % (Manual) 24 H Basophils % Nucleated Red Blood Cells % 0.0 Neutrophils # Absolute Lymphocytes (Manual) 1.8 Lymphocytes # Monocytes # Absolute Monocytes (Manual) 0.2 L Eosinophils # Basophils # Nucleated Red Blood Cells # Smudge Cells % 15 H Platelet Estimate DECREASED Polychromasia 3+ Anisocytosis 1+ Microcytosis 1+ Sodium Level 145 H Potassium Level 4.2 Chloride Level 113 H Carbon Dioxide Level 22 Anion Gap 14 Blood Urea Nitrogen 40 H Creatinine 2.01 H Glucose Level 87 # Calcium Level 8.3 L Phosphorus Level 4.7 Magnesium Level 2.2 Test 05/17/17 09:24 Bedside Glucose 122 Medications Medications Current Medications Atorvastatin Calcium (Lipitor) 10 mg QHS GTB Last administered on 05/13/17 20: 31; Admin Dose 10 MG; Start 05/06/17 at 21:00 Bisacodyl (Dulcolax Supp) 10 mg Q48H [place] Last administered on 05/12/17 17:57; Admin Dose 10 MG; Start 05/06/17 at 17:00 Carbidopa/Levodopa (Sinemet (25/ 100)) 1 tab TID GTB Last administered on 10:40; Admin Dose 1 TAB; Start 05/06/17 at 21:00 Clopidogrel Bisulfate (plaVIX) 75 mg DAILY GTB Last administered on 05/17/17 10:40; Admin Dose 75 MG; Start 05/07/17 at 09:00 Donepezil HCl (Aricept) 10 mg QHS GTB Last administered on 05/13/17 20:30; Admin Dose 10 MG; Start 05/06/17 at 21:00 Ferrous Sulfate (Ferrous Sulfate (Ec)) 325 mg BID PO Last administered on 10:41; Admin Dose 325 MG; Start 05/06/17 at 21:00 Folic Acid (Folic Acid) 1 mg DAILY GTB Last administered on 05/17/17 10:41; Admin Dose 1 MG; Start 05/07/17 at 09:00 Lactobacillus Acidophilus/ Rhamnosus (Culturelle) 1 cap QHS GTB Last administered on 05/12/17 20:28; Admin Dose 1 CAP; Start 05/06/17 at 21:00 Magnesium Hydroxide (Milk Of Mag) 30 ml Q24H GTB Last administered on 17:57; Admin Dose 30 ML; Start 05/06/17 at 17:00 Memantine (Namenda) 5 mg QAM GTB Last administered on 05/17/17 10:40; Admin Dose 5 MG; Start 05/07/17 at 09:00 Metoprolol Tartrate (Lopressor) 25 mg Q12H GTB ; Start 05/06/17 at 17:00 Multivit/Ca Carb/ B Cmplx/FA/Prenat (Radhika-John) 1 tab DAILY GTB Last administered on 05/17/17 10:41; Admin Dose 1 TAB; Start 05/07/17 at 09:00 Pramipexole (Mirapex) 0.5 mg DAILY GTB Last administered on 05/17/17 10:40; Admin Dose 0.5 MG; Start 05/07/17 at 09:00 Sodium Biphosphate/ Sodium Phosphate (Fleet Enema Pediatric) 118 ml Q72H PRN [place] CONSTIPATION; Start 05/06/17 at 17:00 Citric Acid/ Sodium Citrate (Bicitra) 30 ml BID PO Last administered on 10:40; Admin Dose 30 ML; Start 05/06/17 at 21:00 Heparin Sodium (Porcine) (Heparin (5000 Units/0.5 ml)) 5,000 unit BID SC Last administered on 05/15/17 20:54; Admin Dose 5,000 UNIT; Start 05/06/17 at 21:00 ; Status Future Hold Nystatin (Nystatin Powder) 1 applic BID TOP Last administered on 05/17/17 09: 11; Admin Dose 1 APPLIC; Start 05/09/17 at 21:00 Mupirocin (Bactroban) 1 applic BID TOP Last administered on 05/17/17 09:11; Admin Dose 1 APPLIC; Start 05/09/17 at 12:30 Collagenase (Santyl) 1 applic DAILY TOP Last administered on 05/17/17 09:12; Admin Dose 1 APPLIC; Start 05/09/17 at 15:00 Collagenase 1 applic 1 applic PRN PRN TOP WOUND CARE; Start 05/09/17 at 14:00 Norepinephrine 16 mg/Dextrose 500 ml @ 1.87 mls/hr TITRATE IV ; Start 05/10/17 at 14:00 Dopamine HCl/ Dextrose 250 ml @ 6.848 mls/ hr TITRATE IV Last administered on 05/16/17 23:08; Admin Dose 27.39 MLS/HR; Start 05/10/17 at 18:30 Insulin Aspart (Novolog Insulin Pen) NOVOLOG *MILD* ALGORI... Q4 SC ; Start at 09:00 Miscellaneous Information 1 ea NOTE XX ; Start 05/11/17 at 08:00 Glucose (Glutose) 15 gm Q15M PRN PO DECREASED GLUCOSE; Start 05/11/17 at 08:00 Glucose (Glutose) 22.5 gm Q15M PRN PO DECREASED GLUCOSE; Start 05/11/17 at 08: 00 Dextrose (D50w Syringe) 25 ml Q15M PRN IV DECREASED GLUCOSE Last administered on 05/15/17 04:08; Admin Dose 25 ML; Start 05/11/17 at 08:00 Dextrose (D50w Syringe) 50 ml Q15M PRN IV DECREASED GLUCOSE Last administered on 05/15/17 00:11; Admin Dose 50 ML; Start 05/11/17 at 08:00 Glucagon (Glucagen) 1 mg Q15M PRN IM DECREASED GLUCOSE; Start 05/11/17 at 08:00 Glucose (Glutose) 15 gm Q15M PRN BUCCAL DECREASED GLUCOSE; Start 05/11/17 at 08 :00 Epoetin Vasyl 38541 units 10,000 units MoWeFr@17 SC Last administered on 17:33; Admin Dose 10,000 UNITS; Start 05/13/17 at 17:00 Meropenem/Sodium Chloride (Merrem 500mg/50 ml(Pmx)) 50 ml @ 100 mls/hr Q12 IVPB Last administered on 05/17/17 09:11; Admin Dose 100 MLS/HR; Start at 21:00 IV Flush (NS 10 ml) 10 ml PRN PRN IV IV PROTOCOL; Start 05/15/17 at 17:30 Pantoprazole 40 mg 40 mg BID@06,18 IV Last administered on 05/17/17 05:57; Admin Dose 40 MG; Start 05/16/17 at 10:00 Total Parenteral Nutrition 1,000 ml @ 40 mls/hr Q24H IV Last administered on 17:09; Admin Dose 40 MLS/HR; Start 05/16/17 at 12:00 Fat Emulsion Intravenous 250 ml @ 10.4 mls/hr Q24H IV Last administered on 17:09; Admin Dose 10.4 MLS/HR; Start 05/16/17 at 12:00 Sodium Chloride (1/2 NS) 1,000 ml @ 50 mls/hr Q20H IV Last administered on 17:10; Admin Dose 50 MLS/HR; Start 05/16/17 at 16:00 SYLWIA SY MD May 17, 2017 12:02
[2017-05-17] MEDS: DOPamine-D5W 1.6 MG/ML 250 ML IV SCH (12:20)
--- NOTE | 2017-05-17 14:05 | CONS ---
Date/Time of Note Date/Time of Note DATE: 05/17/17 TIME: 14:04 Consult Date/Type/Reason Admit Date/Time May 06, 2017 at 16:34 Initial Consult Date 05/10/17 Type of Consultation: Pulmonary Subjective No significant changes continues dopamine TPN. Neurologically unchanged. Objective Vital Signs Date Time Temp Pulse Resp B/P Pulse Ox O2 Delivery O2 Flow Rate FiO2 05/17/17 12:45 78 17 121/47 99 Mechanical Ventilator 05/17/17 12:00 96.4 05/17/17 09:50 30 Intake and Output 05/16/17 05/16/17 05/17/17 15:00 23:00 07:00 Intake Total 808.21 ml 794.190 ml 983.652 ml Output Total 415 ml 415 ml 835 ml Balance 393.21 ml 379.190 ml 148.652 ml Exam GENERAL: Elderly lady on mechanical ventilation via tracheostomy comfortable VITAL SIGNS: per chart NECK: Supple. No JVD or lymphadenopathy., CARDIAC EXAM: S1, S2. No added sounds or murmurs. CHEST: clear bilaterally, No added sounds, rales or wheezes ABDOMEN: Soft, nontender. No guarding or rebound. EXTREMITIES: No cyanosis, clubbing or edema +2 NEUROLOGIC: Generalized weakness. Results/Medications Result Diagram: 05/17/1713 05/17/17 0613 Results 24 hrs Laboratory Tests Test 05/16/17 18:00 05/16/17 18:29 05/16/17 21:36 05/17/17 01:36 Bedside Glucose 77 91 97 Hemoglobin 8.9 #L Hematocrit 28.3 #L Test 05/17/17 05:02 05/17/17 05:56 05/17/17 06:13 05/17/17 09:24 Lab Scanned Report BLOOD TRANSFUSION Bedside Glucose 91 122 White Blood Count 5.5 # Red Blood Count 3.09 #L Hemoglobin 9.0 L Hematocrit 28.5 L Mean Corpuscular Volume 92.2 Mean Corpuscular Hemoglobin 29.1 Mean Corpuscular Hemoglobin Concent 31.6 L Red Cell Distribution Width 18.0 H Platelet Count 92 #L Mean Platelet Volume 11.5 H Neutrophils % Segmented Neutrophils % (Manual) 40 Lymphocytes % Lymphocytes % (Manual) 33 Monocytes % Monocytes % (Manual) 4 Eosinophils % Eosinophils % (Manual) 24 H Basophils % Nucleated Red Blood Cells % 0.0 Neutrophils # Absolute Lymphocytes (Manual) 1.8 Lymphocytes # Monocytes # Absolute Monocytes (Manual) 0.2 L Eosinophils # Basophils # Nucleated Red Blood Cells # Smudge Cells % 15 H Platelet Estimate DECREASED Polychromasia 3+ Anisocytosis 1+ Microcytosis 1+ Sodium Level 145 H Potassium Level 4.2 Chloride Level 113 H Carbon Dioxide Level 22 Anion Gap 14 Blood Urea Nitrogen 40 H Creatinine 2.01 H Glucose Level 87 # Calcium Level 8.3 L Phosphorus Level 4.7 Magnesium Level 2.2 Test 05/17/17 12:43 Bedside Glucose 104 Medications Current Medications Atorvastatin Calcium (Lipitor) 10 mg QHS GTB Last administered on 05/13/17 20: 31; Admin Dose 10 MG; Start 05/06/17 at 21:00 Bisacodyl (Dulcolax Supp) 10 mg Q48H LA Last administered on 05/12/17 17:57; Admin Dose 10 MG; Start 05/06/17 at 17:00 Carbidopa/Levodopa (Sinemet (25/ 100)) 1 tab TID GTB Last administered on 13:13; Admin Dose 1 TAB; Start 05/06/17 at 21:00 Clopidogrel Bisulfate (plaVIX) 75 mg DAILY GTB Last administered on 05/17/17 10:40; Admin Dose 75 MG; Start 05/07/17 at 09:00 Donepezil HCl (Aricept) 10 mg QHS GTB Last administered on 05/13/17 20:30; Admin Dose 10 MG; Start 05/06/17 at 21:00 Ferrous Sulfate (Ferrous Sulfate (Ec)) 325 mg BID PO Last administered on 10:41; Admin Dose 325 MG; Start 05/06/17 at 21:00 Folic Acid (Folic Acid) 1 mg DAILY GTB Last administered on 05/17/17 10:41; Admin Dose 1 MG; Start 05/07/17 at 09:00 Lactobacillus Acidophilus/ Rhamnosus (Culturelle) 1 cap QHS GTB Last administered on 05/12/17 20:28; Admin Dose 1 CAP; Start 05/06/17 at 21:00 Magnesium Hydroxide (Milk Of Mag) 30 ml Q24H GTB Last administered on 17:57; Admin Dose 30 ML; Start 05/06/17 at 17:00 Memantine (Namenda) 5 mg QAM GTB Last administered on 05/17/17 10:40; Admin Dose 5 MG; Start 05/07/17 at 09:00 Metoprolol Tartrate (Lopressor) 25 mg Q12H GTB ; Start 05/06/17 at 17:00 Multivit/Ca Carb/ B Cmplx/FA/Prenat (Radhika-John) 1 tab DAILY GTB Last administered on 05/17/17 10:41; Admin Dose 1 TAB; Start 05/07/17 at 09:00 Pramipexole (Mirapex) 0.5 mg DAILY GTB Last administered on 05/17/17 10:40; Admin Dose 0.5 MG; Start 05/07/17 at 09:00 Sodium Biphosphate/ Sodium Phosphate (Fleet Enema Pediatric) 118 ml Q72H PRN [place] CONSTIPATION; Start 05/06/17 at 17:00 Citric Acid/ Sodium Citrate (Bicitra) 30 ml BID PO Last administered on 10:40; Admin Dose 30 ML; Start 05/06/17 at 21:00 Heparin Sodium (Porcine) (Heparin (5000 Units/0.5 ml)) 5,000 unit BID SC Last administered on 05/15/17 20:54; Admin Dose 5,000 UNIT; Start 05/06/17 at 21:00 ; Status Future Hold Nystatin (Nystatin Powder) 1 applic BID TOP Last administered on 05/17/17 09: 11; Admin Dose 1 APPLIC; Start 05/09/17 at 21:00 Mupirocin (Bactroban) 1 applic BID TOP Last administered on 05/17/17 09:11; Admin Dose 1 APPLIC; Start 05/09/17 at 12:30 Collagenase (Santyl) 1 applic DAILY TOP Last administered on 05/17/17 09:12; Admin Dose 1 APPLIC; Start 05/09/17 at 15:00 Collagenase 1 applic 1 applic PRN PRN TOP WOUND CARE; Start 05/09/17 at 14:00 Norepinephrine 16 mg/Dextrose 500 ml @ 1.87 mls/hr TITRATE IV ; Start 05/10/17 at 14:00 Dopamine HCl/ Dextrose 250 ml @ 6.848 mls/ hr TITRATE IV Last administered on 05/17/17 12:20; Admin Dose 13.695 MLS/HR; Start 05/10/17 at 18:30 Insulin Aspart (Novolog Insulin Pen) NOVOLOG *MILD* ALGORI... Q4 SC ; Start at 09:00 Miscellaneous Information 1 ea NOTE XX ; Start 05/11/17 at 08:00 Glucose (Glutose) 15 gm Q15M PRN PO DECREASED GLUCOSE; Start 05/11/17 at 08:00 Glucose (Glutose) 22.5 gm Q15M PRN PO DECREASED GLUCOSE; Start 05/11/17 at 08: 00 Dextrose (D50w Syringe) 25 ml Q15M PRN IV DECREASED GLUCOSE Last administered on 05/15/17 04:08; Admin Dose 25 ML; Start 05/11/17 at 08:00 Dextrose (D50w Syringe) 50 ml Q15M PRN IV DECREASED GLUCOSE Last administered on 05/15/17 00:11; Admin Dose 50 ML; Start 05/11/17 at 08:00 Glucagon (Glucagen) 1 mg Q15M PRN IM DECREASED GLUCOSE; Start 05/11/17 at 08:00 Glucose (Glutose) 15 gm Q15M PRN BUCCAL DECREASED GLUCOSE; Start 05/11/17 at 08 :00 Epoetin Vasyl 73964 units 10,000 units MoWeFr@17 SC Last administered on 17:33; Admin Dose 10,000 UNITS; Start 05/13/17 at 17:00 Meropenem/Sodium Chloride (Merrem 500mg/50 ml(Pmx)) 50 ml @ 100 mls/hr Q12 IVPB Last administered on 05/17/17 09:11; Admin Dose 100 MLS/HR; Start at 21:00 IV Flush (NS 10 ml) 10 ml PRN PRN IV IV PROTOCOL; Start 05/15/17 at 17:30 Pantoprazole 40 mg 40 mg BID@06,18 IV Last administered on 05/17/17 05:57; Admin Dose 40 MG; Start 05/16/17 at 10:00 Total Parenteral Nutrition 1,000 ml @ 40 mls/hr Q24H IV Last administered on 17:09; Admin Dose 40 MLS/HR; Start 05/16/17 at 12:00 Fat Emulsion Intravenous 250 ml @ 10.4 mls/hr Q24H IV Last administered on 17:09; Admin Dose 10.4 MLS/HR; Start 05/16/17 at 12:00 Sodium Chloride (1/2 NS) 1,000 ml @ 50 mls/hr Q20H IV Last administered on 17:10; Admin Dose 50 MLS/HR; Start 05/16/17 at 16:00 Assessment/Plan Chief Complaint/Hosp Course Assessment 1. Chronic encephalopathy unchanged 2. GJ tube site leak with erosion of surrounding skin. Pending surgical replacement when hemodynamically stable 3. Anemia of chronic disease 4. Chronic kidney disease 5. Vent dependent respiratory failure 6. Septic shock Currently vasopressor dependent Plan 1. Pending GI evaluation to replace G-tube, will be performed when patient stable. 2. Continue mechanical ventilation pulmonary toilet 3. Continue wound care 4. Monitor H&H. Status post transfusion packed red blood cells Overall prognosis very poor consider palliative care consult Problems: JARED CLAIRE MD, [facility] May 17, 2017 14:05
[2017-05-17] MEDS: SOD CHLORIDE 0.45% 1,000 ML IV SCH (15:04)
--- NOTE | 2017-05-17 16:06 | CONS ---
Date/Time of Note Date/Time of Note DATE: 05/17/17 TIME: 15:57 Assessment/Plan Assessment/Plan Chief Complaint/Hosp Course ID PROGRESS NOTE TOTAL ABX DAY # 8 => Vanco IV #8 + Merrem#8 + Colistin INH #2 24H INTERVAL SUMMARY * Obese 86 yo F -> encephalopathic, Vented, No fevers, WBC normal * Still on pressors dopamine; TPN -> dislodged GT with ABD wall cellulitis * CT of the abdomen revealed induration of the skin and thickening of the subcutaneous fat along the gastrostomy tract, larger right pleural effusion, extensive diverticular disease of the distal colon without evidence of diverticulitis * MICRO: 05/14/17 SPUTUM: RESPIRATORY CULTURE Preliminary Organism 1 PSEUDOMONAS AERUGINOSA QUANTITY 3+ Organism 2 STENOTROPHOMONAS MALTOPHILIA QUANTITY 3+ P.AERUG M.I.C. RX --------- --- AMIKACIN <=2 S AZTREONAM R CEFEPIME 16 I CEFTAZIDIME 16 I CIPROFLOXACIN >=4 R GENTAMICIN 2 S IMIPENEM >=16 R LEVOFLOXACIN >=8 R TOBRAMYCIN <=1 S PIPERACILLIN/TAZOBACTAM R PHYSICAL EXAMINATION: GENERAL: VSS,NAD, no fevers == Obese, eyes open HEENT: NGT->Secure / ETT secure NECK: Supple, trach-> midline CHEST: Equal chest rise bilaterally, Vented HEART: Pulse RRR ABDOMEN: Soft -> see photos large EC fistula residual healing scar, cellulitis w/(+)drainage EXTREMITIES: Warm, no edema SKIN: Warm, dry ID ASSESSMENT: 86 yo F w/PMHx Obesity,Parkinson's dementia w/chronic encephalopathy admitted with: 1. Sepsis w/shock, hypothermia, leukocytosis, lactic acidosis => multifactorial as below * 05/07/17 BCx (-) 2. Acute on chronic respiratory failure w/Trach 3. HCAP => Tracheobronchitis * CT (+)Large right pleural effusion/small left effusion * Respiratory Cx 05/14: * Organism 1 PSEUDOMONAS AERUGINOSA QUANTITY 3+ Organism 2 STENOTROPHOMONAS MALTOPHILIA QUANTITY 3+ 4. 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 5. UTI as per urinalysis on admission => urine was not sent for culture 6. Multiple chronic decub ulcers 7. RASH on admission s/p empiric Elimite x1 w/(-)skin scraping for scabies 8. Acute kidney injury. 9. Diabetes. 10. Acute on chronic anemia. 11. 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 Continue IV ABX and supportive care 2. Respiratory culture ->PSAR MDRO + Stenotrophomonas= possibly colonized; nevertheless patient remains on pressors * Continue current ABX 3. Aspiration precautions 4. GT site local wound care; topical ointment and absorbant DSG barrier care == Wound Cx ? * Pending GT site replacement when hemodynamically stable * Case Management family contact noted . . Problems: Consultation Date/Type/Reason Admit Date/Time May 06, 2017 at 16:34 Initial Consult Date 05/12/17 Type of Consultation: ID Exam/Review of Systems Vital Signs Vitals Vital Signs Date Time Temp Pulse Resp B/P Pulse Ox O2 Delivery O2 Flow Rate FiO2 05/17/17 14:54 77 12 100 30 05/17/17 12:45 121/47 Mechanical Ventilator 05/17/17 12:00 96.4 Intake and Output 05/16/17 05/16/17 05/17/17 15:00 23:00 07:00 Intake Total 808.21 ml 794.190 ml 983.652 ml Output Total 415 ml 415 ml 835 ml Balance 393.21 ml 379.190 ml 148.652 ml Results Result Diagram: 05/17/17 0613 05/17/17 0613 Results 24 hrs Laboratory Tests Test 05/16/17 18:00 05/16/17 18:29 05/16/17 21:36 05/17/17 01:36 Bedside Glucose 77 91 97 Hemoglobin 8.9 #L Hematocrit 28.3 #L Test 05/17/17 05:02 05/17/17 05:56 05/17/17 06:13 05/17/17 09:24 Lab Scanned Report BLOOD TRANSFUSION Bedside Glucose 91 122 White Blood Count 5.5 # Red Blood Count 3.09 #L Hemoglobin 9.0 L Hematocrit 28.5 L Mean Corpuscular Volume 92.2 Mean Corpuscular Hemoglobin 29.1 Mean Corpuscular Hemoglobin Concent 31.6 L Red Cell Distribution Width 18.0 H Platelet Count 92 #L Mean Platelet Volume 11.5 H Neutrophils % Segmented Neutrophils % (Manual) 40 Lymphocytes % Lymphocytes % (Manual) 33 Monocytes % Monocytes % (Manual) 4 Eosinophils % Eosinophils % (Manual) 24 H Basophils % Nucleated Red Blood Cells % 0.0 Neutrophils # Absolute Lymphocytes (Manual) 1.8 Lymphocytes # Monocytes # Absolute Monocytes (Manual) 0.2 L Eosinophils # Basophils # Nucleated Red Blood Cells # Smudge Cells % 15 H Platelet Estimate DECREASED Polychromasia 3+ Anisocytosis 1+ Microcytosis 1+ Sodium Level 145 H Potassium Level 4.2 Chloride Level 113 H Carbon Dioxide Level 22 Anion Gap 14 Blood Urea Nitrogen 40 H Creatinine 2.01 H Glucose Level 87 # Calcium Level 8.3 L Phosphorus Level 4.7 Magnesium Level 2.2 Test 05/17/17 12:43 Bedside Glucose 104 Medications Medications Current Medications Atorvastatin Calcium (Lipitor) 10 mg QHS GTB Last administered on 05/13/17 20: 31; Admin Dose 10 MG; Start 05/06/17 at 21:00 Bisacodyl (Dulcolax Supp) 10 mg Q48H AL Last administered on 05/12/17 17:57; Admin Dose 10 MG; Start 05/06/17 at 17:00 Carbidopa/Levodopa (Sinemet (25/ 100)) 1 tab TID GTB Last administered on 13:13; Admin Dose 1 TAB; Start 05/06/17 at 21:00 Clopidogrel Bisulfate (plaVIX) 75 mg DAILY GTB Last administered on 05/17/17 10:40; Admin Dose 75 MG; Start 7/18/17 at 09:00 Donepezil HCl (Aricept) 10 mg QHS GTB Last administered on 05/13/17 20:30; Admin Dose 10 MG; Start 05/06/17 at 21:00 Ferrous Sulfate (Ferrous Sulfate (Ec)) 325 mg BID PO Last administered on 10:41; Admin Dose 325 MG; Start 05/06/17 at 21:00 Folic Acid (Folic Acid) 1 mg DAILY GTB Last administered on 05/17/17 10:41; Admin Dose 1 MG; Start 05/07/17 at 09:00 Lactobacillus Acidophilus/ Rhamnosus (Culturelle) 1 cap QHS GTB Last administered on 05/12/17 20:28; Admin Dose 1 CAP; Start 05/06/17 at 21:00 Magnesium Hydroxide (Milk Of Mag) 30 ml Q24H GTB Last administered on 17:57; Admin Dose 30 ML; Start 05/06/17 at 17:00 Memantine (Namenda) 5 mg QAM GTB Last administered on 05/17/17 10:40; Admin Dose 5 MG; Start 05/07/17 at 09:00 Metoprolol Tartrate (Lopressor) 25 mg Q12H GTB ; Start 05/06/17 at 17:00 Multivit/Ca Carb/ B Cmplx/FA/Prenat (Radhika-John) 1 tab DAILY GTB Last administered on 05/17/17 10:41; Admin Dose 1 TAB; Start 05/07/17 at 09:00 Pramipexole (Mirapex) 0.5 mg DAILY GTB Last administered on 05/17/17 10:40; Admin Dose 0.5 MG; Start 05/07/17 at 09:00 Sodium Biphosphate/ Sodium Phosphate (Fleet Enema Pediatric) 118 ml Q72H PRN [place] CONSTIPATION; Start 05/06/17 at 17:00 Citric Acid/ Sodium Citrate (Bicitra) 30 ml BID PO Last administered on 10:40; Admin Dose 30 ML; Start 05/06/17 at 21:00 Heparin Sodium (Porcine) (Heparin (5000 Units/0.5 ml)) 5,000 unit BID SC Last administered on 05/15/17 20:54; Admin Dose 5,000 UNIT; Start 05/06/17 at 21:00 ; Status Future Hold Nystatin (Nystatin Powder) 1 applic BID TOP Last administered on 05/17/17 09: 11; Admin Dose 1 APPLIC; Start 05/09/17 at 21:00 Mupirocin (Bactroban) 1 applic BID TOP Last administered on 05/17/17 09:11; Admin Dose 1 APPLIC; Start 05/09/17 at 12:30 Collagenase (Santyl) 1 applic DAILY TOP Last administered on 05/17/17 09:12; Admin Dose 1 APPLIC; Start 05/09/17 at 15:00 Collagenase 1 applic 1 applic PRN PRN TOP WOUND CARE; Start 05/09/17 at 14:00 Norepinephrine 16 mg/Dextrose 500 ml @ 1.87 mls/hr TITRATE IV ; Start 05/10/17 at 14:00 Dopamine HCl/ Dextrose 250 ml @ 6.848 mls/ hr TITRATE IV Last administered on 05/17/17 12:20; Admin Dose 13.695 MLS/HR; Start 05/10/17 at 18:30 Insulin Aspart (Novolog Insulin Pen) NOVOLOG *MILD* ALGORI... Q4 SC ; Start at 09:00 Miscellaneous Information 1 ea NOTE XX ; Start 05/11/17 at 08:00 Glucose (Glutose) 15 gm Q15M PRN PO DECREASED GLUCOSE; Start 05/11/17 at 08:00 Glucose (Glutose) 22.5 gm Q15M PRN PO DECREASED GLUCOSE; Start 05/11/17 at 08: 00 Dextrose (D50w Syringe) 25 ml Q15M PRN IV DECREASED GLUCOSE Last administered on 05/15/17 04:08; Admin Dose 25 ML; Start 05/11/17 at 08:00 Dextrose (D50w Syringe) 50 ml Q15M PRN IV DECREASED GLUCOSE Last administered on 05/15/17 00:11; Admin Dose 50 ML; Start 05/11/17 at 08:00 Glucagon (Glucagen) 1 mg Q15M PRN IM DECREASED GLUCOSE; Start 05/11/17 at 08:00 Glucose (Glutose) 15 gm Q15M PRN BUCCAL DECREASED GLUCOSE; Start 05/11/17 at 08 :00 Epoetin Vasyl 59100 units 10,000 units MoWeFr@17 SC Last administered on 17:33; Admin Dose 10,000 UNITS; Start 05/13/17 at 17:00 Meropenem/Sodium Chloride (Merrem 500mg/50 ml(Pmx)) 50 ml @ 100 mls/hr Q12 IVPB Last administered on 05/17/17 09:11; Admin Dose 100 MLS/HR; Start at 21:00 IV Flush (NS 10 ml) 10 ml PRN PRN IV IV PROTOCOL; Start 05/15/17 at 17:30 Pantoprazole 40 mg 40 mg BID@06,18 IV Last administered on 05/17/17 05:57; Admin Dose 40 MG; Start 05/16/17 at 10:00 Total Parenteral Nutrition 1,000 ml @ 40 mls/hr Q24H IV Last administered on 17:09; Admin Dose 40 MLS/HR; Start 05/16/17 at 12:00 Fat Emulsion Intravenous 250 ml @ 10.4 mls/hr Q24H IV Last administered on 17:09; Admin Dose 10.4 MLS/HR; Start 05/16/17 at 12:00 Sodium Chloride (1/2 NS) 1,000 ml @ 50 mls/hr Q20H IV Last administered on 15:04; Admin Dose 50 MLS/HR; Start 05/16/17 at 16:00 SYLVIA PADRON NP May 17, 2017 16:05
[2017-05-17] MEDS: FAT EMULSION 20% 250 ML IV SCH (16:56)
[2017-05-17] MEDS: MAGNESIUM HYDROXIDE 30ML CUP GTB SCH (16:56)
[2017-05-17] MEDS: TPN 1,000 ML IV SCH (16:56)
--- NOTE | 2017-05-17 17:07 | PN ---
Date/Time of Note Date/Time of Note DATE: 05/17/17 TIME: 17:04 Assessment/Plan VTE Prophylaxis VTE Prophylaxis Intervention: other Lines/Catheters IV Catheter Type (from Nrs): PICC Line Central line still needed: Yes Urinary Cath still in place: Yes Reason Cath still needed: other (indicate) Assessment/Plan Chief Complaint/Hosp Course 1. hypoxemic resp failure: s/p trach 2. Pafib; currently in NSR 3. hx HTN: now in shock and hypotensive. : STILL requires DOPAMINE DRIP 4. encephalopathy 5. renal failure: f/u with nephrology 6. dysphagia 7. G tube malfunction/ infection 8. GI bleed 9. severe anemia will cont dopamine drip and titrate off when BP stablizes. . . cont resp care nutritional support. CONT ICU care as long as pt is on pressors correct lytes prn f/u renal fx. transfusions prn . WILL HOLD PLAVIX DUE TO ANEMIA/ BLEEDING THANK YOU. Problems: Subjective 24 Hr Interval Summary Free Text/Dictation CARDIOLOGY FOLLOW UP NOTE: Discussed with staff and rhythm was reviewed pt remains in NSR. NO AFIB seen NONVERBAL. pt is still ICU on low dose dopamine drip but unable to wean off OBJECTIVE: General: no acute distress HEENT: NC/AT. NECK: NO JVD. no stridor. S/P trach on vent CV: RRR. systolic murmur; no gallop or rubs. PULM: no wheezing anteriorly GI: SOFT, NT, ND, no rebound or guarding s/p PEG Extremity: + B/L LE edema. no clubbing. neuro: opens her eyes to painful stimuli. does not follow commands Psych: calm rectal: deferred Exam/Review of Systems Vital Signs Vitals Vital Signs Date Time Temp Pulse Resp B/P Pulse Ox O2 Delivery O2 Flow Rate FiO2 05/17/17 16:00 77 05/17/17 14:54 12 100 30 05/17/17 12:45 121/47 Mechanical Ventilator 05/17/17 12:00 96.4 Intake and Output 05/16/17 05/16/17 05/17/17 15:00 23:00 07:00 Intake Total 808.21 ml 794.190 ml 983.652 ml Output Total 415 ml 415 ml 835 ml Balance 393.21 ml 379.190 ml 148.652 ml Results Result Diagram: 05/17/17 0613 05/17/17 0613 Results 24 hrs Laboratory Tests Test 05/16/17 18:00 05/16/17 18:29 05/16/17 21:36 05/17/17 01:36 Bedside Glucose 77 91 97 Hemoglobin 8.9 #L Hematocrit 28.3 #L Test 05/17/17 05:02 05/17/17 05:56 05/17/17 06:13 05/17/17 09:24 Lab Scanned Report BLOOD TRANSFUSION Bedside Glucose 91 122 White Blood Count 5.5 # Red Blood Count 3.09 #L Hemoglobin 9.0 L Hematocrit 28.5 L Mean Corpuscular Volume 92.2 Mean Corpuscular Hemoglobin 29.1 Mean Corpuscular Hemoglobin Concent 31.6 L Red Cell Distribution Width 18.0 H Platelet Count 92 #L Mean Platelet Volume 11.5 H Neutrophils % Segmented Neutrophils % (Manual) 40 Lymphocytes % Lymphocytes % (Manual) 33 Monocytes % Monocytes % (Manual) 4 Eosinophils % Eosinophils % (Manual) 24 H Basophils % Nucleated Red Blood Cells % 0.0 Neutrophils # Absolute Lymphocytes (Manual) 1.8 Lymphocytes # Monocytes # Absolute Monocytes (Manual) 0.2 L Eosinophils # Basophils # Nucleated Red Blood Cells # Smudge Cells % 15 H Platelet Estimate DECREASED Polychromasia 3+ Anisocytosis 1+ Microcytosis 1+ Sodium Level 145 H Potassium Level 4.2 Chloride Level 113 H Carbon Dioxide Level 22 Anion Gap 14 Blood Urea Nitrogen 40 H Creatinine 2.01 H Glucose Level 87 # Calcium Level 8.3 L Phosphorus Level 4.7 Magnesium Level 2.2 Test 05/17/17 12:43 Bedside Glucose 104 Medications Medications Current Medications Atorvastatin Calcium (Lipitor) 10 mg QHS GTB Last administered on 05/13/17 20: 31; Admin Dose 10 MG; Start 05/06/17 at 21:00 Bisacodyl (Dulcolax Supp) 10 mg Q48H DE Last administered on 05/12/17 17:57; Admin Dose 10 MG; Start 05/06/17 at 17:00 Carbidopa/Levodopa (Sinemet (25/ 100)) 1 tab TID GTB Last administered on 13:13; Admin Dose 1 TAB; Start 05/06/17 at 21:00 Clopidogrel Bisulfate (plaVIX) 75 mg DAILY GTB Last administered on 05/17/17 10:40; Admin Dose 75 MG; Start 05/07/17 at 09:00 Donepezil HCl (Aricept) 10 mg QHS GTB Last administered on 05/13/17 20:30; Admin Dose 10 MG; Start 05/06/17 at 21:00 Ferrous Sulfate (Ferrous Sulfate (Ec)) 325 mg BID PO Last administered on 10:41; Admin Dose 325 MG; Start 05/06/17 at 21:00 Folic Acid (Folic Acid) 1 mg DAILY GTB Last administered on 05/17/17 10:41; Admin Dose 1 MG; Start 05/07/17 at 09:00 Lactobacillus Acidophilus/ Rhamnosus (Culturelle) 1 cap QHS GTB Last administered on 05/12/17 20:28; Admin Dose 1 CAP; Start 05/06/17 at 21:00 Magnesium Hydroxide (Milk Of Mag) 30 ml Q24H GTB Last administered on 16:56; Admin Dose 30 ML; Start 05/06/17 at 17:00 Memantine (Namenda) 5 mg QAM GTB Last administered on 05/17/17 10:40; Admin Dose 5 MG; Start 05/07/17 at 09:00 Metoprolol Tartrate (Lopressor) 25 mg Q12H GTB ; Start 05/06/17 at 17:00 Multivit/Ca Carb/ B Cmplx/FA/Prenat (Radhika-John) 1 tab DAILY GTB Last administered on 05/17/17 10:41; Admin Dose 1 TAB; Start 05/07/17 at 09:00 Pramipexole (Mirapex) 0.5 mg DAILY GTB Last administered on 05/17/17 10:40; Admin Dose 0.5 MG; Start 05/07/17 at 09:00 Sodium Biphosphate/ Sodium Phosphate (Fleet Enema Pediatric) 118 ml Q72H PRN DE CONSTIPATION; Start 05/06/17 at 17:00 Citric Acid/ Sodium Citrate (Bicitra) 30 ml BID PO Last administered on 10:40; Admin Dose 30 ML; Start 05/06/17 at 21:00 Heparin Sodium (Porcine) (Heparin (5000 Units/0.5 ml)) 5,000 unit BID SC Last administered on 05/15/17 20:54; Admin Dose 5,000 UNIT; Start 05/06/17 at 21:00 ; Status Future Hold Nystatin (Nystatin Powder) 1 applic BID TOP Last administered on 05/17/17 09: 11; Admin Dose 1 APPLIC; Start 05/09/17 at 21:00 Mupirocin (Bactroban) 1 applic BID TOP Last administered on 05/17/17 09:11; Admin Dose 1 APPLIC; Start 05/09/17 at 12:30 Collagenase (Santyl) 1 applic DAILY TOP Last administered on 05/17/17 09:12; Admin Dose 1 APPLIC; Start 05/09/17 at 15:00 Collagenase 1 applic 1 applic PRN PRN TOP WOUND CARE; Start 05/09/17 at 14:00 Norepinephrine 16 mg/Dextrose 500 ml @ 1.87 mls/hr TITRATE IV ; Start 05/10/17 at 14:00 Dopamine HCl/ Dextrose 250 ml @ 6.848 mls/ hr TITRATE IV Last administered on 05/17/17 12:20; Admin Dose 13.695 MLS/HR; Start 05/10/17 at 18:30 Insulin Aspart (Novolog Insulin Pen) NOVOLOG *MILD* ALGORI... Q4 SC ; Start at 09:00 Miscellaneous Information 1 ea NOTE XX ; Start 05/11/17 at 08:00 Glucose (Glutose) 15 gm Q15M PRN PO DECREASED GLUCOSE; Start 05/11/17 at 08:00 Glucose (Glutose) 22.5 gm Q15M PRN PO DECREASED GLUCOSE; Start 05/11/17 at 08: 00 Dextrose (D50w Syringe) 25 ml Q15M PRN IV DECREASED GLUCOSE Last administered on 05/15/17 04:08; Admin Dose 25 ML; Start 05/11/17 at 08:00 Dextrose (D50w Syringe) 50 ml Q15M PRN IV DECREASED GLUCOSE Last administered on 05/15/17 00:11; Admin Dose 50 ML; Start 05/11/17 at 08:00 Glucagon (Glucagen) 1 mg Q15M PRN IM DECREASED GLUCOSE; Start 05/11/17 at 08:00 Glucose (Glutose) 15 gm Q15M PRN BUCCAL DECREASED GLUCOSE; Start 05/11/17 at 08 :00 Epoetin Vasyl 12938 units 10,000 units MoWeFr@17 SC Last administered on 17:33; Admin Dose 10,000 UNITS; Start 05/13/17 at 17:00 Meropenem/Sodium Chloride (Merrem 500mg/50 ml(Pmx)) 50 ml @ 100 mls/hr Q12 IVPB Last administered on 05/17/17 09:11; Admin Dose 100 MLS/HR; Start at 21:00 IV Flush (NS 10 ml) 10 ml PRN PRN IV IV PROTOCOL; Start 05/15/17 at 17:30 Pantoprazole 40 mg 40 mg BID@06,18 IV Last administered on 05/17/17 05:57; Admin Dose 40 MG; Start 05/16/17 at 10:00 Total Parenteral Nutrition 1,000 ml @ 40 mls/hr Q24H IV Last administered on 16:56; Admin Dose 40 MLS/HR; Start 05/16/17 at 12:00 Fat Emulsion Intravenous 250 ml @ 10.4 mls/hr Q24H IV Last administered on 16:56; Admin Dose 10.4 MLS/HR; Start 05/16/17 at 12:00 Sodium Chloride (1/2 NS) 1,000 ml @ 50 mls/hr Q20H IV Last administered on 15:04; Admin Dose 50 MLS/HR; Start 05/16/17 at 16:00 MILAGROS MUNOZ MD May 17, 2017 17:07
[2017-05-17] MEDS: LACTOBACILLUS RHAMNOSUS CAP GTB SCH (21:18)
[2017-05-17] MEDS: ATORVASTATIN 10 MG TAB GTB SCH (21:18)
[2017-05-17] MEDS: DONEPEZIL 10 MG TAB GTB SCH (21:18)
[2017-05-17] MEDS: EPOETIN 10000 UNITS/1 ML INJ (ESRD) SC SCH (21:23)
[2017-05-18] VITALS (82 sets, daily range): BP systolic 52–159; BP diastolic 29–51; PULSE 75–102; RESP 4–24
[2017-05-18] MEDS: INSULIN ASPART [NOVOLOG] 3 ML PEN SC SCH ×6 (01:00→21:00)
[2017-05-18] MEDS: METOPROLOL 25 MG TAB GTB SCH ×3 (05:00→16:47)
[2017-05-18 05:14] LABS: BASOPHILS % 0.2 % (0.0-2.0); EOSINOPHILS # 1.2 10^3/ul (0.0-0.5); EOSINOPHILS % 25.8 % (0.0-7.0); HEMATOCRIT 25.2 % (37.0-47.0); HEMOGLOBIN 7.7 g/dl (12.0-16.0); LYMPHOCYTES # 1.2 10^3/ul (0.8-2.9); LYMPHOCYTES % 25.3 % (15.0-51.0); MEAN CORPUSCULAR HEMOGLOBIN 28.3 pg (29.0-33.0); MEAN CORPUSCULAR HGB CONC 30.6 g/dl (32.0-37.0); MEAN CORPUSCULAR VOLUME 92.6 fl (82.0-101.0); MEAN PLATELET VOLUME 11.3 fl (7.4-10.4); MONOCYTE # 0.5 10^3/ul (0.3-0.9); MONOCYTES % 10.5 % (0.0-11.0); NEUTROPHIL # 1.7 10^3/ul (1.6-7.5); PLATELET COUNT 105 10^3/UL (140-415); RED BLOOD COUNT 2.72 10^6/ul (4.20-5.40); WHITE BLOOD COUNT 4.6 10^3/ul (4.8-10.8)
[2017-05-18 05:22] LABS: POSITIVE DIFF @See below
[2017-05-18 05:35] LABS: CALCIUM 8.1 mg/dl (8.4-10.2); CREATININE 1.84 mg/dl (0.44-1.00); PHOSPHORUS 3.9 mg/dl (2.5-4.9); POTASSIUM 3.6 mmol/L (3.5-5.1)
[2017-05-18] MEDS: PANTOPRAZOLE 40 MG INJ IV SCH ×2 (06:27→17:04)
--- NOTE | 2017-05-18 07:18 | PN ---
Date/Time of Note Date/Time of Note DATE: 05/18/17 TIME: 07:15 Assessment/Plan VTE Prophylaxis VTE Prophylaxis Intervention: other Lines/Catheters IV Catheter Type (from Nrsg): PICC Line Central line still needed: Yes Urinary Cath still in place: Yes Reason Cath still needed: other (indicate) Assessment/Plan Chief Complaint/Hosp Course 1. Septic shock Etiology likely multifactorial, pneumonia, cellulitis, wounds, Unable to be weaned off pressors Continue IV fluids, broad-spectrum antibiotics CT abdomen shows no acute intra-abdominal process Follow-up with infectious disease, monitor serial lactic acid levels Anemia Sources appears to be GIs but is coming from ostomy site Status post 2 units of PRBC with appropriate response Follow-up with GI recommendations Continue PPI Monitor H&H levels We will hold heparin dysphagia- g tube dislodged, Continue to monitor Follow-up with GI Patient continues to have leak around ostomy site Patient had GJ tube placed yesterday, tolerating tube feeding Discontinue TPN Acute hypoxemic respiratory failure status post trach Vent settings ABGs been reviewed Follow-up with pulmonary 3. Nonoliguric acute kidney injury on top of chronic kidney disease stage 4. Etiology hemodynamics, possible progression of disease Urinary output improved Continue to monitor closely No immediate need for renal replacement therapy at this time Hypernatremia Improved chf -cont med/royce -f/u cardiology Give intermittent diuresis, monitor closely in the setting of pressors pleural effusion Consider thoracentesis Monitor closely on diuretics 8. Acute encephalopathy and advanced dementia. Etiology is toxic metabolic. Continue to monitor. 9. Mineral bone disorder. Continue to monitor calcium and phosphorus levels. 10. Pancytopenia Monitor 11. Coronary artery disease. Continue medical management. 12. Diabetes. Continue Accu-Cheks and insulin sliding scale. 13. Decubitus wound. Continue wound care. Gastrointestinal and deep venous thrombosis prophylaxis. Continue proton pump inhibitor hold heparin Hypomagnesemia Replete magnesium sulfate as needed Disposition. Patient has poor prognosis, Left a message with the patient's son to discuss overall goals of care Please note spent over 40 minutes of critical care time with this patient Problems: Subjective 24 Hr Interval Summary Free Text/Dictation Patient seen and examined Remains critically on pressure support Patient had GJ tube placed Urinary output has been adequate Left message with patient's son Raymundo unable to speak with him Exam/Review of Systems Vital Signs Vitals Vital Signs Date Time Temp Pulse Resp B/P Pulse Ox O2 Delivery O2 Flow Rate FiO2 05/18/17 06:30 109/36 05/18/17 06:00 81 13 100 Mechanical Ventilator 05/18/17 05:09 30 05/18/17 04:00 98.6 Intake and Output 05/17/17 05/17/17 05/18/17 15:00 23:00 07:00 Intake Total 878.541 ml 981.080 ml 528.148 ml Output Total 480 ml 435 ml 255 ml Balance 398.541 ml 546.080 ml 273.148 ml Exam HEENT: Head is normocephalic, NECK: Supple. HEART: Irregular LUNGS: Show diminished breath sounds at base. ABDOMEN: Soft, nontender to palpation without rebound or guarding. Positive GJ tube positive EXTREMITIES: Negative for clubbing, cyanosis. contractures, positive edema DERMATOLOGIC: No rashes. MUSCULOSKELETAL: No joint effusions, NEUROLOGIC: No change in exam. Results Result Diagram: 05/18/17 0450 05/18/17 0450 Results 24 hrs Laboratory Tests Test 05/17/17 09:24 05/17/17 12:43 05/17/17 17:22 05/17/17 21:51 Bedside Glucose 122 104 97 83 Test 05/18/17 01:30 05/18/17 04:50 05/18/17 04:54 Bedside Glucose 93 121 White Blood Count 4.6 L Red Blood Count 2.72 L Hemoglobin 7.7 L Hematocrit 25.2 L Mean Corpuscular Volume 92.6 Mean Corpuscular Hemoglobin 28.3 L Mean Corpuscular Hemoglobin Concent 30.6 L Red Cell Distribution Width 18.0 H Platelet Count 105 L Mean Platelet Volume 11.3 H Neutrophils % 36.0 L Lymphocytes % 25.3 Monocytes % 10.5 Eosinophils % 25.8 H Basophils % 0.2 Nucleated Red Blood Cells % 0.0 Neutrophils # 1.7 Lymphocytes # 1.2 Monocytes # 0.5 Eosinophils # 1.2 H Basophils # 0.0 Nucleated Red Blood Cells # 0.0 Sodium Level 140 Potassium Level 3.6 Chloride Level 110 Carbon Dioxide Level 23 Anion Gap 11 Blood Urea Nitrogen 35 H Creatinine 1.84 H Glucose Level 110 Calcium Level 8.1 L Phosphorus Level 3.9 Magnesium Level 2.0 Medications Medications Current Medications Atorvastatin Calcium (Lipitor) 10 mg QHS GTB Last administered on 05/17/17 21: 18; Admin Dose 10 MG; Start 05/06/17 at 21:00 Bisacodyl (Dulcolax Supp) 10 mg Q48H NM Last administered on 05/12/17 17:57; Admin Dose 10 MG; Start 05/06/17 at 17:00 Carbidopa/Levodopa (Sinemet (25/ 100)) 1 tab TID GTB Last administered on 21:18; Admin Dose 1 TAB; Start 05/06/17 at 21:00 Clopidogrel Bisulfate (plaVIX) 75 mg DAILY GTB Last administered on 05/17/17 10:40; Admin Dose 75 MG; Start 05/07/17 at 09:00; Status Future Hold Donepezil HCl (Aricept) 10 mg QHS GTB Last administered on 05/17/17 21:18; Admin Dose 10 MG; Start 05/06/17 at 21:00 Ferrous Sulfate (Ferrous Sulfate (Ec)) 325 mg BID PO Last administered on 21:18; Admin Dose 325 MG; Start 05/06/17 at 21:00 Folic Acid (Folic Acid) 1 mg DAILY GTB Last administered on 05/17/17 10:41; Admin Dose 1 MG; Start 05/07/17 at 09:00 Lactobacillus Acidophilus/ Rhamnosus (Culturelle) 1 cap QHS GTB Last administered on 05/17/17 21:18; Admin Dose 1 CAP; Start 05/06/17 at 21:00 Magnesium Hydroxide (Milk Of Mag) 30 ml Q24H GTB Last administered on 16:56; Admin Dose 30 ML; Start 05/06/17 at 17:00 Memantine (Namenda) 5 mg QAM GTB Last administered on 05/17/17 10:40; Admin Dose 5 MG; Start 05/07/17 at 09:00 Metoprolol Tartrate (Lopressor) 25 mg Q12H GTB ; Start 05/06/17 at 17:00 Multivit/Ca Carb/ B Cmplx/FA/Prenat (Radhika-John) 1 tab DAILY GTB Last administered on 05/17/17 10:41; Admin Dose 1 TAB; Start 05/07/17 at 09:00 Pramipexole (Mirapex) 0.5 mg DAILY GTB Last administered on 05/17/17 10:40; Admin Dose 0.5 MG; Start 05/07/17 at 09:00 Sodium Biphosphate/ Sodium Phosphate (Fleet Enema Pediatric) 118 ml Q72H PRN [place] CONSTIPATION; Start 05/06/17 at 17:00 Citric Acid/ Sodium Citrate (Bicitra) 30 ml BID PO Last administered on 21:25; Admin Dose 30 ML; Start 05/06/17 at 21:00 Heparin Sodium (Porcine) (Heparin (5000 Units/0.5 ml)) 5,000 unit BID SC Last administered on 05/15/17 20:54; Admin Dose 5,000 UNIT; Start 05/06/17 at 21:00 ; Status Future Hold Nystatin (Nystatin Powder) 1 applic BID TOP Last administered on 05/17/17 21: 53; Admin Dose 1 APPLIC; Start 05/09/17 at 21:00 Mupirocin (Bactroban) 1 applic BID TOP Last administered on 05/17/17 21:53; Admin Dose 1 APPLIC; Start 05/09/17 at 12:30 Collagenase (Santyl) 1 applic DAILY TOP Last administered on 05/17/17 09:12; Admin Dose 1 APPLIC; Start 05/09/17 at 15:00 Collagenase 1 applic 1 applic PRN PRN TOP WOUND CARE; Start 05/09/17 at 14:00 Norepinephrine 16 mg/Dextrose 500 ml @ 1.87 mls/hr TITRATE IV ; Start 05/10/17 at 14:00 Dopamine HCl/ Dextrose 250 ml @ 6.848 mls/ hr TITRATE IV Last administered on 05/17/17 12:20; Admin Dose 13.695 MLS/HR; Start 05/10/17 at 18:30 Insulin Aspart (Novolog Insulin Pen) NOVOLOG *MILD* ALGORI... Q4 SC ; Start at 09:00 Miscellaneous Information 1 ea NOTE XX ; Start 05/11/17 at 08:00 Glucose (Glutose) 15 gm Q15M PRN PO DECREASED GLUCOSE; Start 05/11/17 at 08:00 Glucose (Glutose) 22.5 gm Q15M PRN PO DECREASED GLUCOSE; Start 05/11/17 at 08: 00 Dextrose (D50w Syringe) 25 ml Q15M PRN IV DECREASED GLUCOSE Last administered on 05/15/17 04:08; Admin Dose 25 ML; Start 05/11/17 at 08:00 Dextrose (D50w Syringe) 50 ml Q15M PRN IV DECREASED GLUCOSE Last administered on 05/15/17 00:11; Admin Dose 50 ML; Start 05/11/17 at 08:00 Glucagon (Glucagen) 1 mg Q15M PRN IM DECREASED GLUCOSE; Start 05/11/17 at 08:00 Glucose (Glutose) 15 gm Q15M PRN BUCCAL DECREASED GLUCOSE; Start 05/11/17 at 08 :00 Epoetin Vasyl 24130 units 10,000 units MoWeFr@17 SC Last administered on 21:23; Admin Dose 10,000 UNITS; Start 05/13/17 at 17:00 Meropenem/Sodium Chloride (Merrem 500mg/50 ml(Pmx)) 50 ml @ 100 mls/hr Q12 IVPB Last administered on 05/17/17 21:19; Admin Dose 100 MLS/HR; Start at 21:00 IV Flush (NS 10 ml) 10 ml PRN PRN IV IV PROTOCOL; Start 05/15/17 at 17:30 Pantoprazole 40 mg 40 mg BID@06,18 IV Last administered on 05/18/17 06:27; Admin Dose 40 MG; Start 05/16/17 at 10:00 Total Parenteral Nutrition 1,000 ml @ 40 mls/hr Q24H IV Last administered on 16:56; Admin Dose 40 MLS/HR; Start 05/16/17 at 12:00 Fat Emulsion Intravenous 250 ml @ 10.4 mls/hr Q24H IV Last administered on 16:56; Admin Dose 10.4 MLS/HR; Start 05/16/17 at 12:00 Sodium Chloride (1/2 NS) 1,000 ml @ 50 mls/hr Q20H IV Last administered on 15:04; Admin Dose 50 MLS/HR; Start 05/16/17 at 16:00 OSMAR MONTAGUE DO May 18, 2017 07:18
[2017-05-18] MEDS: ALBUMIN HUMAN 25% 100 ML IV SCH ×3 (07:52→23:45)
--- NOTE | 2017-05-18 08:16 | PN ---
Date/Time of Note Date/Time of Note DATE: 05/18/17 TIME: 08:05 Assessment/Plan Lines/Catheters IV Catheter Type (from Nrs): PICC Line Collazo in Place (from Nrs): Yes Assessment/Plan Chief Complaint/Hosp Course 1. G-tube dislodgement: replaced with gjtube by GI, large amount of bilious drainage peristomal; attempt use of gjtube in place for feeding through j port; tolerating tf through jtube -possible surgical placement of jtube when medically stable 2. Septic shock: multifactorial: 2/2: pneumonia + cellulitis + wounds; on pressors -abx -supportive 3. Respiratory failure with trach: PNA wtih pulm edema; comfortable on vent -pulmonary toilet -abx -supportive 4.STARLA with CKD; +urine output; cr improved -judicious fluids -renally dose meds -per nephrology 5. Leukopenia:2/2 #2, -support -as above 4. Hypernatremia: normalized -judicious fluid management 5. Normocytic anemia: previous coffee ground drainage peristoma; s/p prbc transfusion -monitor and transfuse as needed -continue Epogen 6. Hypokalemia: normalized -optimize lytes 7. CHF -supportive -f/u cardiology 8. Diabetes: labile 9. Acute encephalopathy with history of advanced dementia. -supportive 10. Coronary artery disease. 11. Decubitus wound. Continue wound care. 12. r/o scabies: treated prophylactically 13. Thrombocytopenia 14. Peristomal cellulitis 2/2 #1; gjtube placed in ostomy bag for drainage; improving -local care -abx 15. Pancytopenia 16. Hypocalcemia -replete and monitor 17. Hypomagnesemia Patient seen and examined in collaboration with Dr. Meliton Blackburn Problems: Subjective 24 Hr Interval Summary Continues to be on pressors. Tolerating tf with +bowel function (brown soft stool). Bilious drainage from gtube site. warming blanket. Comfortable on vent. nonverbal indicators of pain not present. No fevers, chills, sz, n/v/d. Exam/Review of Systems Vital Signs Vitals Vital Signs Date Time Temp Pulse Resp B/P Pulse Ox O2 Delivery O2 Flow Rate FiO2 05/18/17 06:30 109/36 05/18/17 06:00 81 13 100 Mechanical Ventilator 05/18/17 05:09 30 05/18/17 04:00 98.6 Intake and Output 05/17/17 05/17/17 05/18/17 15:00 23:00 07:00 Intake Total 878.541 ml 981.080 ml 528.148 ml Output Total 480 ml 435 ml 285 ml Balance 398.541 ml 546.080 ml 243.148 ml Exam Free Text/Dictation Constitutional: alert, non-verbal, No oriented Psych: confusion Head: atraumatic, normocephalic Eyes: PERRL, nl sclera ENMT: mucosa pink and moist Neck: non-tender, other (trach), supple Respiratory: congested cough Cardiovascular: edema Gastrointestinal: distended (mod), other (improved peristomal leak: bilious drainage to ostomy bag), soft, nontender Musculoskeletal: No muscle tone Extremities: edema Neurological: No nl mental status, No nl speech Skin: other (abdominal/peristomal/breast fold redness, moisture damage improving; ) Results Result Diagram: 05/18/17 0450 05/18/17 0450 SHADI CALDERON NP May 18, 2017 08:16
--- NOTE | 2017-05-18 08:30 | CONS ---
Date/Time of Note Date/Time of Note DATE: 05/18/17 TIME: 08:27 Assessment/Plan Assessment/Plan Additional Assessment/Plan Ventilator setting; AC of 12, tidal volume 500, PEEP of 0, 30% FiO2. Assessment recommendations; 1. Patient admitted with cellulitis involving abdominal wall due to G-tube site leakage, patient with history of chronic respiratory failure which is ventilator dependent. 2. Sepsis, patient still requiring pressor support. 3. Anemia. 4. Renal insufficiency. 5. Advanced dementia. 6. Some element of bilateral pneumonia. Continue current supportive care. Prognosis is poor. Consultation Date/Type/Reason Admit Date/Time May 06, 2017 at 16:34 Initial Consult Date 05/10/17 Type of Consultation: Pulmonary/critical care 24 HR Interval Summary Free Text/Dictation Patient condition remains stable remains essentially unresponsive. Has remained hemodynamically unstable still requiring dopamine at 5 mics per kilogram per minute. General exam; elderly woman, on ventilator via tracheostomy, currently in no distress, unresponsive. Exam/Review of Systems Vital Signs Vitals Vital Signs Date Time Temp Pulse Resp B/P Pulse Ox O2 Delivery O2 Flow Rate FiO2 05/18/17 08:00 97 05/18/17 08:00 97.7 05/18/17 06:30 109/36 05/18/17 06:00 13 100 Mechanical Ventilator 05/18/17 05:09 30 Intake and Output 05/17/17 05/17/17 05/18/17 15:00 23:00 07:00 Intake Total 878.541 ml 981.080 ml 528.148 ml Output Total 480 ml 435 ml 285 ml Balance 398.541 ml 546.080 ml 243.148 ml Exam HEENT exam; supple neck, no JVD. No lymphadenopathy. Midline trachea. Tracheostomy in place. Insertion site is clean. Patient has multiple carious teeth. Has a right intraocular lens implant. Chest exam; diminished but clear breath sound. S1-S2 audible, no murmurs. Regular rhythm. Abdomen exam; soft, there is improvement in abdominal wall cellulitis at the site of G-tube insertion. Bowel sounds are very sluggish. No organomegaly felt. Extremity exam; trace edema. LAST TURNER exam; patient remains unresponsive. Results Result Diagram: 05/18/17 0450 05/18/17 0450 Results 24 hrs Laboratory Tests Test 05/17/17 09:24 05/17/17 12:43 05/17/17 17:22 05/17/17 21:51 Bedside Glucose 122 104 97 83 Test 05/18/17 01:30 05/18/17 04:50 05/18/17 04:54 Bedside Glucose 93 121 White Blood Count 4.6 L Red Blood Count 2.72 L Hemoglobin 7.7 L Hematocrit 25.2 L Mean Corpuscular Volume 92.6 Mean Corpuscular Hemoglobin 28.3 L Mean Corpuscular Hemoglobin Concent 30.6 L Red Cell Distribution Width 18.0 H Platelet Count 105 L Mean Platelet Volume 11.3 H Neutrophils % 36.0 L Lymphocytes % 25.3 Monocytes % 10.5 Eosinophils % 25.8 H Basophils % 0.2 Nucleated Red Blood Cells % 0.0 Neutrophils # 1.7 Lymphocytes # 1.2 Monocytes # 0.5 Eosinophils # 1.2 H Basophils # 0.0 Nucleated Red Blood Cells # 0.0 Sodium Level 140 Potassium Level 3.6 Chloride Level 110 Carbon Dioxide Level 23 Anion Gap 11 Blood Urea Nitrogen 35 H Creatinine 1.84 H Glucose Level 110 Calcium Level 8.1 L Phosphorus Level 3.9 Magnesium Level 2.0 Medications Medications Current Medications Atorvastatin Calcium (Lipitor) 10 mg QHS GTB Last administered on 05/17/17 21: 18; Admin Dose 10 MG; Start 05/06/17 at 21:00 Bisacodyl (Dulcolax Supp) 10 mg Q48H [place] Last administered on 05/12/17 17:57; Admin Dose 10 MG; Start 05/06/17 at 17:00 Carbidopa/Levodopa (Sinemet (25/ 100)) 1 tab TID GTB Last administered on 21:18; Admin Dose 1 TAB; Start 05/06/17 at 21:00 Clopidogrel Bisulfate (plaVIX) 75 mg DAILY GTB Last administered on 05/17/17 10:40; Admin Dose 75 MG; Start 05/07/17 at 09:00; Status Future Hold Donepezil HCl (Aricept) 10 mg QHS GTB Last administered on 05/17/17 21:18; Admin Dose 10 MG; Start 05/06/17 at 21:00 Ferrous Sulfate (Ferrous Sulfate (Ec)) 325 mg BID PO Last administered on 21:18; Admin Dose 325 MG; Start 05/06/17 at 21:00 Folic Acid (Folic Acid) 1 mg DAILY GTB Last administered on 05/17/17 10:41; Admin Dose 1 MG; Start 05/07/17 at 09:00 Lactobacillus Acidophilus/ Rhamnosus (Culturelle) 1 cap QHS GTB Last administered on 05/17/17 21:18; Admin Dose 1 CAP; Start 05/06/17 at 21:00 Magnesium Hydroxide (Milk Of Mag) 30 ml Q24H GTB Last administered on 16:56; Admin Dose 30 ML; Start 05/06/17 at 17:00 Memantine (Namenda) 5 mg QAM GTB Last administered on 05/17/17 10:40; Admin Dose 5 MG; Start 05/07/17 at 09:00 Metoprolol Tartrate (Lopressor) 25 mg Q12H GTB ; Start 05/06/17 at 17:00 Multivit/Ca Carb/ B Cmplx/FA/Prenat (Radhika-John) 1 tab DAILY GTB Last administered on 05/17/17 10:41; Admin Dose 1 TAB; Start 05/07/17 at 09:00 Pramipexole (Mirapex) 0.5 mg DAILY GTB Last administered on 05/17/17 10:40; Admin Dose 0.5 MG; Start 05/07/17 at 09:00 Sodium Biphosphate/ Sodium Phosphate (Fleet Enema Pediatric) 118 ml Q72H PRN [place] CONSTIPATION; Start 05/06/17 at 17:00 Citric Acid/ Sodium Citrate (Bicitra) 30 ml BID PO Last administered on 21:25; Admin Dose 30 ML; Start 05/06/17 at 21:00 Heparin Sodium (Porcine) (Heparin (5000 Units/0.5 ml)) 5,000 unit BID SC Last administered on 05/15/17 20:54; Admin Dose 5,000 UNIT; Start 05/06/17 at 21:00 ; Status Future Hold Nystatin (Nystatin Powder) 1 applic BID TOP Last administered on 05/17/17 21: 53; Admin Dose 1 APPLIC; Start 05/09/17 at 21:00 Mupirocin (Bactroban) 1 applic BID TOP Last administered on 05/17/17 21:53; Admin Dose 1 APPLIC; Start 05/09/17 at 12:30 Collagenase (Santyl) 1 applic DAILY TOP Last administered on 05/17/17 09:12; Admin Dose 1 APPLIC; Start 05/09/17 at 15:00 Collagenase 1 applic 1 applic PRN PRN TOP WOUND CARE; Start 05/09/17 at 14:00 Norepinephrine 16 mg/Dextrose 500 ml @ 1.87 mls/hr TITRATE IV ; Start 05/10/17 at 14:00 Dopamine HCl/ Dextrose 250 ml @ 6.848 mls/ hr TITRATE IV Last administered on 05/17/17 12:20; Admin Dose 13.695 MLS/HR; Start 05/10/17 at 18:30 Insulin Aspart (Novolog Insulin Pen) NOVOLOG *MILD* ALGORI... Q4 SC ; Start at 09:00 Miscellaneous Information 1 ea NOTE XX ; Start 05/11/17 at 08:00 Glucose (Glutose) 15 gm Q15M PRN PO DECREASED GLUCOSE; Start 05/11/17 at 08:00 Glucose (Glutose) 22.5 gm Q15M PRN PO DECREASED GLUCOSE; Start 05/11/17 at 08: 00 Dextrose (D50w Syringe) 25 ml Q15M PRN IV DECREASED GLUCOSE Last administered on 05/15/17 04:08; Admin Dose 25 ML; Start 05/11/17 at 08:00 Dextrose (D50w Syringe) 50 ml Q15M PRN IV DECREASED GLUCOSE Last administered on 05/15/17 00:11; Admin Dose 50 ML; Start 05/11/17 at 08:00 Glucagon (Glucagen) 1 mg Q15M PRN IM DECREASED GLUCOSE; Start 05/11/17 at 08:00 Glucose (Glutose) 15 gm Q15M PRN BUCCAL DECREASED GLUCOSE; Start 05/11/17 at 08 :00 Epoetin Vasyl 23952 units 10,000 units MoWeFr@17 SC Last administered on 21:23; Admin Dose 10,000 UNITS; Start 05/13/17 at 17:00 Meropenem/Sodium Chloride (Merrem 500mg/50 ml(Pmx)) 50 ml @ 100 mls/hr Q12 IVPB Last administered on 05/17/17 21:19; Admin Dose 100 MLS/HR; Start at 21:00 IV Flush (NS 10 ml) 10 ml PRN PRN IV IV PROTOCOL; Start 05/15/17 at 17:30 Pantoprazole 40 mg 40 mg BID@06,18 IV Last administered on 05/18/17 06:27; Admin Dose 40 MG; Start 05/16/17 at 10:00 Total Parenteral Nutrition 1,000 ml @ 40 mls/hr Q24H IV Last administered on 16:56; Admin Dose 40 MLS/HR; Start 05/16/17 at 12:00 Fat Emulsion Intravenous 250 ml @ 10.4 mls/hr Q24H IV Last administered on 16:56; Admin Dose 10.4 MLS/HR; Start 05/16/17 at 12:00 Sodium Chloride 1,000 ml @ 50 mls/hr Q20H IV Last administered on 05/17/17 15 :04; Admin Dose 50 MLS/HR; Start 05/16/17 at 16:00 Albumin Human (Albumin Human 25%) 100 ml @ 100 mls/hr Q8H IV Last administered on 05/18/17 07:52; Admin Dose 100 MLS/HR; Start 05/18/17 at 07:30 ; Stop 05/19/17 at 00:29 SMITH RUIZ May 18, 2017 08:30
[2017-05-18] MEDS: MULTIVIT/CA CARB/B CMPLX/FA TAB GTB SCH (09:01)
[2017-05-18] MEDS: MEMANTINE 5 MG TAB GTB SCH (09:01)
[2017-05-18] MEDS: MEROPENEM 500MG/50 ML (PMX) 50 ML IVPB SCH ×2 (09:01→20:45)
[2017-05-18] MEDS: FOLIC ACID 1 MG TAB GTB SCH (09:01)
[2017-05-18] MEDS: FERROUS SULFATE (EC) 325 MG TAB PO SCH ×2 (09:01→20:45)
[2017-05-18] MEDS: CARBIDOPA/LEVODOPA (25/100) TAB GTB SCH ×3 (09:01→20:45)
[2017-05-18] MEDS: NYSTATIN 30 GM POWDER BTL TOP SCH ×2 (09:02→20:47)
[2017-05-18] MEDS: MUPIROCIN 2% 22 GM OINT TOP SCH ×2 (09:02→20:46)
[2017-05-18] MEDS: COLLAGENASE 30 GM TUBE TOP SCH (09:03)
[2017-05-18] MEDS: CITRIC ACID/NA CITRATE 30 ML CUP PO SCH ×2 (09:03→20:45)
[2017-05-18] MEDS: SOD CHLORIDE 0.45% 1,000 ML IV SCH (09:04)
[2017-05-18] MEDS: DOPamine-D5W 1.6 MG/ML 250 ML IV SCH (09:26)
[2017-05-18] MEDS: COLISTIMETHATE (25 MG/ML INHAL SYG) NEB SCH ×2 (09:27→20:38)
[2017-05-18] MEDS: PRAMIPEXOLE 0.25 MG TAB GTB SCH (09:32)
[2017-05-18] MEDS: FAT EMULSION 20% 250 ML IV SCH (12:00)
[2017-05-18] MEDS: TPN 1,000 ML IV SCH (12:00)
--- NOTE | 2017-05-18 12:39 | CONS ---
Date/Time of Note Date/Time of Note DATE: 05/18/17 TIME: 12:38 Assessment/Plan Assessment/Plan Chief Complaint/Hosp Course This 69-year-old female with a history of CVA vent dependent respiratory failure , was brought to the emergency room for the dislodgment of the GJ tube. Patient is nonverbal and no information can be obtained. No GI bleeding no chest pain no shortness of breath. Problems: Additional Assessment/Plan Additional Assessment/Plan 1. Dislodged of the GJ tube accidentally 2. Vent dependent respiratory failure 3. Chronic encephalopathy 4. Renal failure 5. Peripheral vascular disease 6. Anemia 7. Hypertension patient is still on dopamine Plan GJ tube, could not be done. GI lab did not have GJ tube. Hospital did not have GJ tube I will bring it from other facility. Case discussed with Dr. Blackburn and told him to proceed with jejunostomy tube, [facility] does not have GJ tube and because of her anatomy it is technically difficult to prevent the leakage around G-tube site Jejunostomy tube as per surgeon. Awaiting for the blood pressure to be stabilized before surgery Resume feeding through the jejunostomy port connect gastrostomy port to gravity. Discussed with Dr. Blackburn for the placement of jejunostomy tube and closure of the G-tube site. Son wants everything to be done Consultation Date/Type/Reason Admit Date/Time May 06, 2017 at 16:34 Type of Consultation: Pulmonary/critical care 24 HR Interval Summary Subjective hx not possible: pt non-verbal Constitutional: improved, no complaints Exam/Review of Systems Vital Signs Vitals Vital Signs Date Time Temp Pulse Resp B/P Pulse Ox O2 Delivery O2 Flow Rate FiO2 05/18/17 12:25 98.6 05/18/17 12:00 99 05/18/17 11:00 13 100 30 05/18/17 06:30 109/36 05/18/17 06:00 Mechanical Ventilator Intake and Output 05/17/17 05/17/17 05/18/17 15:00 23:00 07:00 Intake Total 878.541 ml 981.080 ml 628.148 ml Output Total 480 ml 435 ml 335 ml Balance 398.541 ml 546.080 ml 293.148 ml Exam Respiratory: other (Patient is on vent) Cardiovascular: nl pulses, regular rate and rhythm Gastrointestinal: nl liver, spleen, non-tender, soft Neurological: unresponsive Results Result Diagram: 05/18/17 0450 05/18/17 0450 Results 24 hrs Laboratory Tests Test 05/17/17 12:43 05/17/17 17:22 05/17/17 21:51 05/18/17 01:30 Bedside Glucose 104 97 83 93 Test 05/18/17 04:50 05/18/17 04:54 05/18/17 09:00 White Blood Count 4.6 L Red Blood Count 2.72 L Hemoglobin 7.7 L Hematocrit 25.2 L Mean Corpuscular Volume 92.6 Mean Corpuscular Hemoglobin 28.3 L Mean Corpuscular Hemoglobin Concent 30.6 L Red Cell Distribution Width 18.0 H Platelet Count 105 L Mean Platelet Volume 11.3 H Neutrophils % 36.0 L Lymphocytes % 25.3 Monocytes % 10.5 Eosinophils % 25.8 H Basophils % 0.2 Nucleated Red Blood Cells % 0.0 Neutrophils # 1.7 Lymphocytes # 1.2 Monocytes # 0.5 Eosinophils # 1.2 H Basophils # 0.0 Nucleated Red Blood Cells # 0.0 Sodium Level 140 Potassium Level 3.6 Chloride Level 110 Carbon Dioxide Level 23 Anion Gap 11 Blood Urea Nitrogen 35 H Creatinine 1.84 H Glucose Level 110 Calcium Level 8.1 L Phosphorus Level 3.9 Magnesium Level 2.0 Bedside Glucose 121 91 Medications Medications Current Medications Atorvastatin Calcium (Lipitor) 10 mg QHS GTB Last administered on 05/17/17 21: 18; Admin Dose 10 MG; Start 05/06/17 at 21:00 Bisacodyl (Dulcolax Supp) 10 mg Q48H [place] Last administered on 05/12/17 17:57; Admin Dose 10 MG; Start 05/06/17 at 17:00 Carbidopa/Levodopa (Sinemet (25/ 100)) 1 tab TID GTB Last administered on 09:01; Admin Dose 1 TAB; Start 05/06/17 at 21:00 Clopidogrel Bisulfate (plaVIX) 75 mg DAILY GTB Last administered on 05/17/17 10:40; Admin Dose 75 MG; Start 05/07/17 at 09:00; Status Future Hold Donepezil HCl (Aricept) 10 mg QHS GTB Last administered on 05/17/17 21:18; Admin Dose 10 MG; Start 05/06/17 at 21:00 Ferrous Sulfate (Ferrous Sulfate (Ec)) 325 mg BID PO Last administered on 09:01; Admin Dose 325 MG; Start 05/06/17 at 21:00 Folic Acid (Folic Acid) 1 mg DAILY GTB Last administered on 05/18/17 09:01; Admin Dose 1 MG; Start 05/07/17 at 09:00 Lactobacillus Acidophilus/ Rhamnosus (Culturelle) 1 cap QHS GTB Last administered on 05/17/17 21:18; Admin Dose 1 CAP; Start 05/06/17 at 21:00 Magnesium Hydroxide (Milk Of Mag) 30 ml Q24H GTB Last administered on 16:56; Admin Dose 30 ML; Start 05/06/17 at 17:00 Memantine (Namenda) 5 mg QAM GTB Last administered on 05/18/17 09:01; Admin Dose 5 MG; Start 05/07/17 at 09:00 Metoprolol Tartrate (Lopressor) 25 mg Q12H GTB ; Start 05/06/17 at 17:00 Multivit/Ca Carb/ B Cmplx/FA/Prenat (Radhika-John) 1 tab DAILY GTB Last administered on 05/18/17 09:01; Admin Dose 1 TAB; Start 05/07/17 at 09:00 Pramipexole (Mirapex) 0.5 mg DAILY GTB Last administered on 05/18/17 09:32; Admin Dose 0.5 MG; Start 05/07/17 at 09:00 Sodium Biphosphate/ Sodium Phosphate (Fleet Enema Pediatric) 118 ml Q72H PRN [place] CONSTIPATION; Start 05/06/17 at 17:00 Citric Acid/ Sodium Citrate (Bicitra) 30 ml BID PO Last administered on 09:03; Admin Dose 30 ML; Start 05/06/17 at 21:00 Heparin Sodium (Porcine) (Heparin (5000 Units/0.5 ml)) 5,000 unit BID SC Last administered on 05/15/17 20:54; Admin Dose 5,000 UNIT; Start 05/06/17 at 21:00 ; Status Future Hold Nystatin (Nystatin Powder) 1 applic BID TOP Last administered on 05/18/17 09: 02; Admin Dose 1 APPLIC; Start 05/09/17 at 21:00 Mupirocin (Bactroban) 1 applic BID TOP Last administered on 05/18/17 09:02; Admin Dose 1 APPLIC; Start 05/09/17 at 12:30 Collagenase (Santyl) 1 applic DAILY TOP Last administered on 05/18/17 09:03; Admin Dose 1 APPLIC; Start 05/09/17 at 15:00 Collagenase 1 applic 1 applic PRN PRN TOP WOUND CARE; Start 05/09/17 at 14:00 Norepinephrine 16 mg/Dextrose 500 ml @ 1.87 mls/hr TITRATE IV ; Start 05/10/17 at 14:00 Dopamine HCl/ Dextrose 250 ml @ 6.848 mls/ hr TITRATE IV Last administered on 05/18/17 09:26; Admin Dose 20.543 MLS/HR; Start 05/10/17 at 18:30 Insulin Aspart (Novolog Insulin Pen) NOVOLOG *MILD* ALGORI... Q4 SC ; Start at 09:00 Miscellaneous Information 1 ea NOTE XX ; Start 05/11/17 at 08:00 Glucose (Glutose) 15 gm Q15M PRN PO DECREASED GLUCOSE; Start 05/11/17 at 08:00 Glucose (Glutose) 22.5 gm Q15M PRN PO DECREASED GLUCOSE; Start 05/11/17 at 08: 00 Dextrose (D50w Syringe) 25 ml Q15M PRN IV DECREASED GLUCOSE Last administered on 05/15/17 04:08; Admin Dose 25 ML; Start 05/11/17 at 08:00 Dextrose (D50w Syringe) 50 ml Q15M PRN IV DECREASED GLUCOSE Last administered on 05/15/17 00:11; Admin Dose 50 ML; Start 05/11/17 at 08:00 Glucagon (Glucagen) 1 mg Q15M PRN IM DECREASED GLUCOSE; Start 05/11/17 at 08:00 Glucose (Glutose) 15 gm Q15M PRN BUCCAL DECREASED GLUCOSE; Start 05/11/17 at 08 :00 Epoetin Vasyl 96628 units 10,000 units MoWeFr@17 SC Last administered on 21:23; Admin Dose 10,000 UNITS; Start 05/13/17 at 17:00 Meropenem/Sodium Chloride (Merrem 500mg/50 ml(Pmx)) 50 ml @ 100 mls/hr Q12 IVPB Last administered on 05/18/17 09:01; Admin Dose 100 MLS/HR; Start at 21:00 IV Flush (NS 10 ml) 10 ml PRN PRN IV IV PROTOCOL; Start 05/15/17 at 17:30 Pantoprazole 40 mg 40 mg BID@06,18 IV Last administered on 05/18/17 06:27; Admin Dose 40 MG; Start 05/16/17 at 10:00 Total Parenteral Nutrition 1,000 ml @ 40 mls/hr Q24H IV Last administered on 16:56; Admin Dose 40 MLS/HR; Start 05/16/17 at 12:00 Fat Emulsion Intravenous 250 ml @ 10.4 mls/hr Q24H IV Last administered on 16:56; Admin Dose 10.4 MLS/HR; Start 05/16/17 at 12:00 Sodium Chloride 1,000 ml @ 50 mls/hr Q20H IV Last administered on 05/18/17 09 :04; Admin Dose 50 MLS/HR; Start 05/16/17 at 16:00 Albumin Human (Albumin Human 25%) 100 ml @ 100 mls/hr Q8H IV Last administered on 05/18/17 07:52; Admin Dose 100 MLS/HR; Start 05/18/17 at 07:30 ; Stop 05/19/17 at 00:29 SYLWIA SY MD May 18, 2017 12:39
[2017-05-18 14:43] LABS: HEMATOCRIT 24.9 % (37.0-47.0)
[2017-05-18] MEDS: MAGNESIUM HYDROXIDE 30ML CUP GTB SCH (16:45)
[2017-05-18] MEDS: BISACODYL 10 MG SUPP PR SCH (16:45)
--- NOTE | 2017-05-18 17:01 | CONS ---
Date/Time of Note Date/Time of Note DATE: 05/18/17 TIME: 16:54 Assessment/Plan Assessment/Plan Chief Complaint/Hosp Course ID PROGRESS NOTE TOTAL ABX DAY # 9 => Vanco IV #9 + Merrem#9 + Colistin INH #3 24H INTERVAL SUMMARY * Obese 86 yo F -> encephalopathic, Vented, No fevers, WBC normal * Still on pressors dopamine; TPN -> dislodged GT with ABD wall cellulitis * CT of the abdomen revealed induration of the skin and thickening of the subcutaneous fat along the gastrostomy tract, larger right pleural effusion, extensive diverticular disease of the distal colon without evidence of diverticulitis * REPEAT ABD WOUND CX: WOUND CULTURE Preliminary Organism 1 GRAM NEGATIVE MARK QUANTITY 2+ * 05/14/17 SPUTUM: RESPIRATORY CULTURE FINAL P.AERUG STENMAL M.I.C. RX M.I.C. RX --------- --- --------- --- AMIKACIN <=2 S AZTREONAM R CEFEPIME 16 I CEFTAZIDIME 16 I CIPROFLOXACIN >=4 R GENTAMICIN 2 S IMIPENEM >=16 R LEVOFLOXACIN >=8 R >=8 R TOBRAMYCIN <=1 S TRIMETHOPRIM/SULFAMETHOXAZOLE 0.047 S PIPERACILLIN/TAZOBACTAM R PHYSICAL EXAMINATION: GENERAL: VSS,NAD, no fevers == Obese, eyes open HEENT: NGT->Secure / ETT secure NECK: Supple, trach-> midline CHEST: Equal chest rise bilaterally, Vented HEART: Pulse RRR ABDOMEN: Soft -> see photos large EC fistula residual healing scar, cellulitis w/(+)drainage EXTREMITIES: Warm, no edema SKIN: Warm, dry ID ASSESSMENT: 86 yo F w/PMHx Obesity,Parkinson's dementia w/chronic encephalopathy admitted with: 1. Sepsis w/shock, hypothermia, leukocytosis, lactic acidosis => multifactorial as below * 05/07/17 BCx (-) 2. Acute on chronic respiratory failure w/Trach 3. HCAP => Tracheobronchitis * CT (+)Large right pleural effusion/small left effusion * Respiratory Cx 05/14: * Organism 1 PSEUDOMONAS AERUGINOSA QUANTITY 3+ Organism 2 STENOTROPHOMONAS MALTOPHILIA QUANTITY 3+ 4. 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 5. UTI as per urinalysis on admission => urine was not sent for culture 6. Multiple chronic decub ulcers 7. RASH on admission s/p empiric Elimite x1 w/(-)skin scraping for scabies 8. Acute kidney injury 9. Diabetes. 10. Acute on chronic anemia. 11. 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 Continue IV ABX 2. Respiratory culture ->PSAR MDRO + Stenotrophomonas= possibly colonized; nevertheless patient remains on pressors * Continue current ABX 3. Aspiration precautions 4. GT site local wound care; topical ointment and absorbant DSG barrier care == Wound Cx (+)GNR pending final * Pending GT site replacement when hemodynamically stable * Case Management family contact noted . . Problems: Consultation Date/Type/Reason Admit Date/Time May 06, 2017 at 16:34 Initial Consult Date 05/12/17 Type of Consultation: ID Exam/Review of Systems Vital Signs Vitals Vital Signs Date Time Temp Pulse Resp B/P Pulse Ox O2 Delivery O2 Flow Rate FiO2 05/18/17 16:00 98 05/18/17 15:00 12 97 30 05/18/17 14:30 128/45 05/18/17 12:25 98.6 05/18/17 06:00 Mechanical Ventilator Intake and Output 05/17/17 05/17/17 05/18/17 15:00 23:00 07:00 Intake Total 878.541 ml 981.080 ml 628.148 ml Output Total 480 ml 435 ml 335 ml Balance 398.541 ml 546.080 ml 293.148 ml Results Result Diagram: 05/18/17 1357 05/18/17 0450 Results 24 hrs Laboratory Tests Test 05/17/17 17:22 05/17/17 21:51 05/18/17 01:30 05/18/17 04:50 Bedside Glucose 97 83 93 White Blood Count 4.6 L Red Blood Count 2.72 L Hemoglobin 7.7 L Hematocrit 25.2 L Mean Corpuscular Volume 92.6 Mean Corpuscular Hemoglobin 28.3 L Mean Corpuscular Hemoglobin Concent 30.6 L Red Cell Distribution Width 18.0 H Platelet Count 105 L Mean Platelet Volume 11.3 H Neutrophils % 36.0 L Lymphocytes % 25.3 Monocytes % 10.5 Eosinophils % 25.8 H Basophils % 0.2 Nucleated Red Blood Cells % 0.0 Neutrophils # 1.7 Lymphocytes # 1.2 Monocytes # 0.5 Eosinophils # 1.2 H Basophils # 0.0 Nucleated Red Blood Cells # 0.0 Sodium Level 140 Potassium Level 3.6 Chloride Level 110 Carbon Dioxide Level 23 Anion Gap 11 Blood Urea Nitrogen 35 H Creatinine 1.84 H Glucose Level 110 Calcium Level 8.1 L Phosphorus Level 3.9 Magnesium Level 2.0 Test 05/18/17 04:54 05/18/17 09:00 05/18/17 12:47 05/18/17 13:57 Bedside Glucose 121 91 86 Hemoglobin 8.0 L Hematocrit 24.9 L Medications Medications Current Medications Atorvastatin Calcium (Lipitor) 10 mg QHS GTB Last administered on 05/17/17 21: 18; Admin Dose 10 MG; Start 05/06/17 at 21:00 Bisacodyl (Dulcolax Supp) 10 mg Q48H IN Last administered on 05/18/17 16:45; Admin Dose 10 MG; Start 05/06/17 at 17:00 Carbidopa/Levodopa (Sinemet (25/ 100)) 1 tab TID GTB Last administered on 12:46; Admin Dose 1 TAB; Start 05/06/17 at 21:00 Clopidogrel Bisulfate (plaVIX) 75 mg DAILY GTB Last administered on 05/17/17 10:40; Admin Dose 75 MG; Start 05/07/17 at 09:00; Status Future Hold Donepezil HCl (Aricept) 10 mg QHS GTB Last administered on 05/17/17 21:18; Admin Dose 10 MG; Start 05/06/17 at 21:00 Ferrous Sulfate (Ferrous Sulfate (Ec)) 325 mg BID PO Last administered on 09:01; Admin Dose 325 MG; Start 05/06/17 at 21:00 Folic Acid (Folic Acid) 1 mg DAILY GTB Last administered on 05/18/17 09:01; Admin Dose 1 MG; Start 05/07/17 at 09:00 Lactobacillus Acidophilus/ Rhamnosus (Culturelle) 1 cap QHS GTB Last administered on 05/17/17 21:18; Admin Dose 1 CAP; Start 05/06/17 at 21:00 Magnesium Hydroxide (Milk Of Mag) 30 ml Q24H GTB Last administered on 16:45; Admin Dose 30 ML; Start 05/06/17 at 17:00 Memantine (Namenda) 5 mg QAM GTB Last administered on 05/18/17 09:01; Admin Dose 5 MG; Start 05/07/17 at 09:00 Metoprolol Tartrate (Lopressor) 25 mg Q12H GTB Last administered on 05/18/17 16:47; Admin Dose 25 MG; Start 05/06/17 at 17:00 Multivit/Ca Carb/ B Cmplx/FA/Prenat (Radhika-John) 1 tab DAILY GTB Last administered on 05/18/17 09:01; Admin Dose 1 TAB; Start 05/07/17 at 09:00 Pramipexole (Mirapex) 0.5 mg DAILY GTB Last administered on 05/18/17 09:32; Admin Dose 0.5 MG; Start 05/07/17 at 09:00 Sodium Biphosphate/ Sodium Phosphate (Fleet Enema Pediatric) 118 ml Q72H PRN IN CONSTIPATION; Start 05/06/17 at 17:00 Citric Acid/ Sodium Citrate (Bicitra) 30 ml BID PO Last administered on 09:03; Admin Dose 30 ML; Start 05/06/17 at 21:00 Heparin Sodium (Porcine) (Heparin (5000 Units/0.5 ml)) 5,000 unit BID SC Last administered on 05/15/17 20:54; Admin Dose 5,000 UNIT; Start 05/06/17 at 21:00 ; Status Future Hold Nystatin (Nystatin Powder) 1 applic BID TOP Last administered on 05/18/17 09: 02; Admin Dose 1 APPLIC; Start 05/09/17 at 21:00 Mupirocin (Bactroban) 1 applic BID TOP Last administered on 05/18/17 09:02; Admin Dose 1 APPLIC; Start 05/09/17 at 12:30 Collagenase (Santyl) 1 applic DAILY TOP Last administered on 05/18/17 09:03; Admin Dose 1 APPLIC; Start 05/09/17 at 15:00 Collagenase 1 applic 1 applic PRN PRN TOP WOUND CARE; Start 05/09/17 at 14:00 Norepinephrine 16 mg/Dextrose 500 ml @ 1.87 mls/hr TITRATE IV ; Start 05/10/17 at 14:00 Dopamine HCl/ Dextrose 250 ml @ 6.848 mls/ hr TITRATE IV Last administered on 05/18/17 09:26; Admin Dose 20.543 MLS/HR; Start 05/10/17 at 18:30 Insulin Aspart (Novolog Insulin Pen) NOVOLOG *MILD* ALGORI... Q4 SC ; Start at 09:00 Miscellaneous Information 1 ea NOTE XX ; Start 05/11/17 at 08:00 Glucose (Glutose) 15 gm Q15M PRN PO DECREASED GLUCOSE; Start 05/11/17 at 08:00 Glucose (Glutose) 22.5 gm Q15M PRN PO DECREASED GLUCOSE; Start 05/11/17 at 08: 00 Dextrose (D50w Syringe) 25 ml Q15M PRN IV DECREASED GLUCOSE Last administered on 05/15/17 04:08; Admin Dose 25 ML; Start 05/11/17 at 08:00 Dextrose (D50w Syringe) 50 ml Q15M PRN IV DECREASED GLUCOSE Last administered on 05/15/17 00:11; Admin Dose 50 ML; Start 05/11/17 at 08:00 Glucagon (Glucagen) 1 mg Q15M PRN IM DECREASED GLUCOSE; Start 05/11/17 at 08:00 Glucose (Glutose) 15 gm Q15M PRN BUCCAL DECREASED GLUCOSE; Start 05/11/17 at 08 :00 Epoetin Vasyl 32664 units 10,000 units MoWeFr@17 SC Last administered on 21:23; Admin Dose 10,000 UNITS; Start 05/13/17 at 17:00 Meropenem/Sodium Chloride (Merrem 500mg/50 ml(Pmx)) 50 ml @ 100 mls/hr Q12 IVPB Last administered on 05/18/17 09:01; Admin Dose 100 MLS/HR; Start at 21:00 IV Flush (NS 10 ml) 10 ml PRN PRN IV IV PROTOCOL; Start 05/15/17 at 17:30 Pantoprazole 40 mg 40 mg BID@06,18 IV Last administered on 05/18/17 06:27; Admin Dose 40 MG; Start 05/16/17 at 10:00 Total Parenteral Nutrition 1,000 ml @ 40 mls/hr Q24H IV Last administered on 16:56; Admin Dose 40 MLS/HR; Start 05/16/17 at 12:00 Fat Emulsion Intravenous 250 ml @ 10.4 mls/hr Q24H IV Last administered on 16:56; Admin Dose 10.4 MLS/HR; Start 05/16/17 at 12:00 Sodium Chloride 1,000 ml @ 50 mls/hr Q20H IV Last administered on 05/18/17 09 :04; Admin Dose 50 MLS/HR; Start 05/16/17 at 16:00 Albumin Human (Albumin Human 25%) 100 ml @ 100 mls/hr Q8H IV Last administered on 05/18/17 15:54; Admin Dose 100 MLS/HR; Start 05/18/17 at 07:30 ; Stop 05/19/17 at 00:29 SYLVIA PADRON NP May 18, 2017 17:01
[2017-05-18] MEDS: ATORVASTATIN 10 MG TAB GTB SCH (20:45)
[2017-05-18] MEDS: DONEPEZIL 10 MG TAB GTB SCH (20:45)
[2017-05-18] MEDS: LACTOBACILLUS RHAMNOSUS CAP GTB SCH (20:50)
[2017-05-19] VITALS (90 sets, daily range): BP systolic 67–144; BP diastolic 30–53; PULSE 60–84; RESP 0–21
[2017-05-19] MEDS: INSULIN ASPART [NOVOLOG] 3 ML PEN SC SCH ×5 (01:00→17:00)
[2017-05-19] MEDS: DOPamine-D5W 1.6 MG/ML 250 ML IV SCH (01:51)
[2017-05-19] MEDS: METOPROLOL 25 MG TAB GTB SCH ×2 (05:00→17:00)
[2017-05-19 05:01] LABS: HEMATOCRIT 22.7 % (37.0-47.0); HEMOGLOBIN 7.2 g/dl (12.0-16.0); MEAN CORPUSCULAR HEMOGLOBIN 29.5 pg (29.0-33.0); MEAN CORPUSCULAR HGB CONC 31.7 g/dl (32.0-37.0); MEAN PLATELET VOLUME 10.5 fl (7.4-10.4); PLATELET COUNT 141 10^3/UL (140-415); RED BLOOD COUNT 2.44 10^6/ul (4.20-5.40); RED CELL DISTRIBUTION WIDTH 17.2 % (11.5-14.5); WHITE BLOOD COUNT 3.6 10^3/ul (4.8-10.8)
[2017-05-19 05:32] LABS: CREATININE 1.83 mg/dl (0.44-1.00); PHOSPHORUS 3.7 mg/dl (2.5-4.9); POTASSIUM 3.8 mmol/L (3.5-5.1)
[2017-05-19 05:34] LABS: POSITIVE DIFF @See below
[2017-05-19] MEDS: PANTOPRAZOLE 40 MG INJ IV SCH ×2 (06:52→18:54)
[2017-05-19] MEDS: SOD CHLORIDE 0.45% 1,000 ML IV SCH (06:53)
[2017-05-19] MEDS ORDERED: SOD CHLORIDE 0.9% 250 ML IV* ONE (06:57)
[2017-05-19] MEDS ORDERED: FUROSEMIDE 40 MG INJ IV ONE (07:00)
--- NOTE | 2017-05-19 07:03 | PN ---
Date/Time of Note Date/Time of Note DATE: 05/19/17 TIME: 07:01 Assessment/Plan VTE Prophylaxis VTE Prophylaxis Intervention: other Lines/Catheters IV Catheter Type (from Nrsg): PICC Line Central line still needed: Yes Urinary Cath still in place: Yes Reason Cath still needed: other (indicate) Assessment/Plan Chief Complaint/Hosp Course 1. Septic shock Etiology likely multifactorial, pneumonia, cellulitis, wounds, Weaned off pressors Continue IV fluids, broad-spectrum antibiotics CT abdomen shows no acute intra-abdominal process Follow-up with infectious disease, monitor serial lactic acid levels Anemia H&H levels are low We will transfuse you 2 units of PRBC Follow-up with GI recommendations Continue PPI dysphagia- g tube dislodged, Continue to monitor Follow-up with GI GJ tube was placed, tolerating tube feeding Acute hypoxemic respiratory failure status post trach Vent settings ABGs been reviewed Follow-up with pulmonary 3. Nonoliguric acute kidney injury on top of chronic kidney disease stage 4. Etiology hemodynamics, possible progression of disease Urinary output improved Continue to monitor closely No immediate need for renal replacement therapy at this time Hypernatremia Improved chf -cont med/royce -f/u cardiology Give intermittent diuresis, monitor closely in the setting of pressors pleural effusion Consider thoracentesis Monitor closely on diuretics 8. Acute encephalopathy and advanced dementia. Etiology is toxic metabolic. Continue to monitor. 9. Mineral bone disorder. Continue to monitor calcium and phosphorus levels. 10. Pancytopenia Monitor 11. Coronary artery disease. Continue medical management. 12. Diabetes. Continue Accu-Cheks and insulin sliding scale. 13. Decubitus wound. Continue wound care. Gastrointestinal and deep venous thrombosis prophylaxis. Continue proton pump inhibitor hold heparin Hypomagnesemia Replete magnesium sulfate as needed Disposition. Patient has poor prognosis, Please note spent over 40 minutes of critical care time with this patient Problems: Subjective 24 Hr Interval Summary Free Text/Dictation Patient seen and examined Remains critically ill on pressure support, being weaned off Patient's hemoglobin levels are low pending blood transfusion No other events noted Exam/Review of Systems Vital Signs Vitals Vital Signs Date Time Temp Pulse Resp B/P Pulse Ox O2 Delivery O2 Flow Rate FiO2 05/19/17 05:04 73 12 100 30 05/19/17 05:00 130/42 Mechanical Ventilator 05/19/17 04:00 97.5 Intake and Output 705/18/17 05/19/17 15:00 23:00 07:00 Intake Total 1181.159 ml 1331.271 ml 530.846 ml Output Total 490 ml 690 ml 270 ml Balance 691.159 ml 641.271 ml 260.846 ml Exam HEENT: Head is normocephalic, NECK: Supple. HEART: Irregular LUNGS: Show diminished breath sounds at base. ABDOMEN: Soft, nontender to palpation without rebound or guarding. Positive GJ tube positive EXTREMITIES: Negative for clubbing, cyanosis. contractures, positive edema DERMATOLOGIC: No rashes. MUSCULOSKELETAL: No joint effusions, NEUROLOGIC: No change in exam. Results Result Diagram: 05/19/17 0445 05/19/17 0445 Results 24 hrs Laboratory Tests Test 05/18/17 09:00 05/18/17 12:47 05/18/17 13:57 05/18/17 17:04 Bedside Glucose 91 86 98 Hemoglobin 8.0 L Hematocrit 24.9 L Test 05/18/17 21:04 05/19/17 01:35 05/19/17 04:45 05/19/17 04:55 Bedside Glucose 101 106 101 White Blood Count 3.6 #L Red Blood Count 2.44 L Hemoglobin 7.2 L Hematocrit 22.7 L Mean Corpuscular Volume 93.0 Mean Corpuscular Hemoglobin 29.5 Mean Corpuscular Hemoglobin Concent 31.7 L Red Cell Distribution Width 17.2 H Platelet Count 141 # Mean Platelet Volume 10.5 H Neutrophils % Lymphocytes % Monocytes % Eosinophils % Basophils % Nucleated Red Blood Cells % 0.0 Neutrophils # Lymphocytes # Monocytes # Eosinophils # Basophils # Nucleated Red Blood Cells # Sodium Level 144 Potassium Level 3.8 Chloride Level 110 Carbon Dioxide Level 24 Anion Gap 14 Blood Urea Nitrogen 34 H Creatinine 1.83 H Glucose Level 93 Calcium Level 9.0 Phosphorus Level 3.7 Magnesium Level 2.0 Medications Medications Current Medications Atorvastatin Calcium (Lipitor) 10 mg QHS GTB Last administered on 05/18/17 20: 45; Admin Dose 10 MG; Start 05/06/17 at 21:00 Bisacodyl (Dulcolax Supp) 10 mg Q48H PA Last administered on 05/18/17 16:45; Admin Dose 10 MG; Start 05/06/17 at 17:00 Carbidopa/Levodopa (Sinemet (25/ 100)) 1 tab TID GTB Last administered on 20:45; Admin Dose 1 TAB; Start 05/06/17 at 21:00 Clopidogrel Bisulfate (plaVIX) 75 mg DAILY GTB Last administered on 05/17/17 10:40; Admin Dose 75 MG; Start 05/07/17 at 09:00; Status Future Hold Donepezil HCl (Aricept) 10 mg QHS GTB Last administered on 05/18/17 20:45; Admin Dose 10 MG; Start 05/06/17 at 21:00 Ferrous Sulfate (Ferrous Sulfate (Ec)) 325 mg BID PO Last administered on 20:45; Admin Dose 325 MG; Start 05/06/17 at 21:00 Folic Acid (Folic Acid) 1 mg DAILY GTB Last administered on 05/18/17 09:01; Admin Dose 1 MG; Start 05/07/17 at 09:00 Lactobacillus Acidophilus/ Rhamnosus (Culturelle) 1 cap QHS GTB Last administered on 05/18/17 20:50; Admin Dose 1 CAP; Start 05/06/17 at 21:00 Magnesium Hydroxide (Milk Of Mag) 30 ml Q24H GTB Last administered on 16:45; Admin Dose 30 ML; Start 05/06/17 at 17:00 Memantine (Namenda) 5 mg QAM GTB Last administered on 05/18/17 09:01; Admin Dose 5 MG; Start 05/07/17 at 09:00 Metoprolol Tartrate (Lopressor) 25 mg Q12H GTB Last administered on 05/18/17 16:47; Admin Dose 25 MG; Start 05/06/17 at 17:00 Multivit/Ca Carb/ B Cmplx/FA/Prenat (Radhika-John) 1 tab DAILY GTB Last administered on 05/18/17 09:01; Admin Dose 1 TAB; Start 05/07/17 at 09:00 Pramipexole (Mirapex) 0.5 mg DAILY GTB Last administered on 05/18/17 09:32; Admin Dose 0.5 MG; Start 05/07/17 at 09:00 Sodium Biphosphate/ Sodium Phosphate (Fleet Enema Pediatric) 118 ml Q72H PRN PA CONSTIPATION; Start 05/06/17 at 17:00 Citric Acid/ Sodium Citrate (Bicitra) 30 ml BID PO Last administered on 20:45; Admin Dose 30 ML; Start 05/06/17 at 21:00 Heparin Sodium (Porcine) (Heparin (5000 Units/0.5 ml)) 5,000 unit BID SC Last administered on 05/15/17 20:54; Admin Dose 5,000 UNIT; Start 05/06/17 at 21:00 ; Status Future Hold Nystatin (Nystatin Powder) 1 applic BID TOP Last administered on 05/18/17 20: 47; Admin Dose 1 APPLIC; Start 05/09/17 at 21:00 Mupirocin (Bactroban) 1 applic BID TOP Last administered on 05/18/17 20:46; Admin Dose 1 APPLIC; Start 05/09/17 at 12:30 Collagenase (Santyl) 1 applic DAILY TOP Last administered on 05/18/17 09:03; Admin Dose 1 APPLIC; Start 05/09/17 at 15:00 Collagenase 1 applic 1 applic PRN PRN TOP WOUND CARE; Start 05/09/17 at 14:00 Norepinephrine 16 mg/Dextrose 500 ml @ 1.87 mls/hr TITRATE IV ; Start 05/10/17 at 14:00 Dopamine HCl/ Dextrose 250 ml @ 6.848 mls/ hr TITRATE IV Last administered on 05/19/17 01:51; Admin Dose 6.848 MLS/HR; Start 05/10/17 at 18:30 Insulin Aspart (Novolog Insulin Pen) NOVOLOG *MILD* ALGORI... Q4 SC ; Start at 09:00 Miscellaneous Information 1 ea NOTE XX ; Start 05/11/17 at 08:00 Glucose (Glutose) 15 gm Q15M PRN PO DECREASED GLUCOSE; Start 05/11/17 at 08:00 Glucose (Glutose) 22.5 gm Q15M PRN PO DECREASED GLUCOSE; Start 05/11/17 at 08: 00 Dextrose (D50w Syringe) 25 ml Q15M PRN IV DECREASED GLUCOSE Last administered on 05/15/17 04:08; Admin Dose 25 ML; Start 05/11/17 at 08:00 Dextrose (D50w Syringe) 50 ml Q15M PRN IV DECREASED GLUCOSE Last administered on 05/15/17 00:11; Admin Dose 50 ML; Start 05/11/17 at 08:00 Glucagon (Glucagen) 1 mg Q15M PRN IM DECREASED GLUCOSE; Start 05/11/17 at 08:00 Glucose (Glutose) 15 gm Q15M PRN BUCCAL DECREASED GLUCOSE; Start 05/11/17 at 08 :00 Epoetin Vasyl 43888 units 10,000 units MoWeFr@17 SC Last administered on 21:23; Admin Dose 10,000 UNITS; Start 05/13/17 at 17:00 Meropenem/Sodium Chloride (Merrem 500mg/50 ml(Pmx)) 50 ml @ 100 mls/hr Q12 IVPB Last administered on 05/18/17 20:45; Admin Dose 100 MLS/HR; Start at 21:00 IV Flush (NS 10 ml) 10 ml PRN PRN IV IV PROTOCOL; Start 05/15/17 at 17:30 Pantoprazole 40 mg 40 mg BID@06,18 IV Last administered on 05/19/17 06:52; Admin Dose 40 MG; Start 05/16/17 at 10:00 Total Parenteral Nutrition 1,000 ml @ 40 mls/hr Q24H IV Last administered on 16:56; Admin Dose 40 MLS/HR; Start 05/16/17 at 12:00 Fat Emulsion Intravenous 250 ml @ 10.4 mls/hr Q24H IV Last administered on 16:56; Admin Dose 10.4 MLS/HR; Start 05/16/17 at 12:00 Sodium Chloride 1,000 ml @ 50 mls/hr Q20H IV Last administered on 05/19/17 06 :53; Admin Dose 50 MLS/HR; Start 05/16/17 at 16:00 Sodium Chloride (NS) 250 ml @ 0 mls/hr Q0M ONCE IV* ; Start 05/19/17 at 06:57; Stop 05/19/17 at 06:58; Status OSMAR FORD DO May 19, 2017 07:03
--- NOTE | 2017-05-19 08:48 | CONS ---
Date/Time of Note Date/Time of Note DATE: 05/19/17 TIME: 08:44 Assessment/Plan Assessment/Plan Additional Assessment/Plan Ventilator setting; AC of 12, tidal volume 500, PEEP of 0, 30% FiO2. Assessment and recommendations; 1. Patient with history of chronic respiratory failure which is ventilator dependent, patient admitted for abdominal wall cellulitis. Currently on appropriate antibiotic regimen. 2. Advanced dementia. 3. Renal insufficiency. 4. [place] cytopenia. 5. Hypotension. Continue current supportive care. Prognosis is very poor. Consultation Date/Type/Reason Admit Date/Time May 06, 2017 at 16:34 Initial Consult Date 05/10/17 Type of Consultation: Pulmonary/critical care 24 HR Interval Summary Free Text/Dictation Patient's condition remains critical. Still requiring dopamine for blood pressure maintenance, although at a much lower dosing . Patient remains unresponsive. General exam; elderly woman, on ventilator via tracheostomy, currently in no distress, unresponsive. Exam/Review of Systems Vital Signs Vitals Vital Signs Date Time Temp Pulse Resp B/P Pulse Ox O2 Delivery O2 Flow Rate FiO2 05/19/17 08:00 68 05/19/17 06:45 12 123/41 100 05/19/17 06:30 Mechanical Ventilator 05/19/17 05:04 30 05/19/17 04:00 97.5 Intake and Output 05/18/17 05/18/17 05/19/17 15:00 23:00 07:00 Intake Total 1181.159 ml 1331.271 ml 821.246 ml Output Total 490 ml 690 ml 340 ml Balance 691.159 ml 641.271 ml 481.246 ml Exam HEENT exam; supple neck, no JVD. No lymphadenopathy. Midline trachea. Patient has a multiple carious teeth. Tracheostomy in place with clean insertion site. Chest exam; diminished but clear breath sound. S1-S2 audible, no murmurs. Regular rhythm. Abdomen exam; soft, no organomegaly. Bowel sounds audible. There is improvement in abdominal wall cellulitis. Extremity exam; trace edema. 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 Results Result Diagram: 05/19/17 0445 05/19/17 0445 Results 24 hrs Laboratory Tests Test 05/18/17 09:00 05/18/17 12:47 05/18/17 13:57 05/18/17 17:04 Bedside Glucose 91 86 98 Hemoglobin 8.0 L Hematocrit 24.9 L Test 05/18/17 21:04 05/19/17 01:35 05/19/17 04:45 05/19/17 04:55 Bedside Glucose 101 106 101 White Blood Count 3.6 #L Red Blood Count 2.44 L Hemoglobin 7.2 L Hematocrit 22.7 L Mean Corpuscular Volume 93.0 Mean Corpuscular Hemoglobin 29.5 Mean Corpuscular Hemoglobin Concent 31.7 L Red Cell Distribution Width 17.2 H Platelet Count 141 # Mean Platelet Volume 10.5 H Neutrophils % Lymphocytes % Monocytes % Eosinophils % Basophils % Nucleated Red Blood Cells % 0.0 Neutrophils # Lymphocytes # Monocytes # Eosinophils # Basophils # Nucleated Red Blood Cells # Sodium Level 144 Potassium Level 3.8 Chloride Level 110 Carbon Dioxide Level 24 Anion Gap 14 Blood Urea Nitrogen 34 H Creatinine 1.83 H Glucose Level 93 Calcium Level 9.0 Phosphorus Level 3.7 Magnesium Level 2.0 Medications Medications Current Medications Atorvastatin Calcium (Lipitor) 10 mg QHS GTB Last administered on 05/18/17 20: 45; Admin Dose 10 MG; Start 05/06/17 at 21:00 Bisacodyl (Dulcolax Supp) 10 mg Q48H [place] Last administered on 05/18/17 16:45; Admin Dose 10 MG; Start 05/06/17 at 17:00 Carbidopa/Levodopa (Sinemet (25/ 100)) 1 tab TID GTB Last administered on 20:45; Admin Dose 1 TAB; Start 05/06/17 at 21:00 Clopidogrel Bisulfate (plaVIX) 75 mg DAILY GTB Last administered on 05/17/17 10:40; Admin Dose 75 MG; Start 05/07/17 at 09:00; Status Future Hold Donepezil HCl (Aricept) 10 mg QHS GTB Last administered on 05/18/17 20:45; Admin Dose 10 MG; Start 05/06/17 at 21:00 Ferrous Sulfate (Ferrous Sulfate (Ec)) 325 mg BID PO Last administered on 20:45; Admin Dose 325 MG; Start 05/06/17 at 21:00 Folic Acid (Folic Acid) 1 mg DAILY GTB Last administered on 05/18/17 09:01; Admin Dose 1 MG; Start 05/07/17 at 09:00 Lactobacillus Acidophilus/ Rhamnosus (Culturelle) 1 cap QHS GTB Last administered on 05/18/17 20:50; Admin Dose 1 CAP; Start 05/06/17 at 21:00 Magnesium Hydroxide (Milk Of Mag) 30 ml Q24H GTB Last administered on 16:45; Admin Dose 30 ML; Start 05/06/17 at 17:00 Memantine (Namenda) 5 mg QAM GTB Last administered on 05/18/17 09:01; Admin Dose 5 MG; Start 05/07/17 at 09:00 Metoprolol Tartrate (Lopressor) 25 mg Q12H GTB Last administered on 05/18/17 16:47; Admin Dose 25 MG; Start 05/06/17 at 17:00 Multivit/Ca Carb/ B Cmplx/FA/Prenat (Radhika-John) 1 tab DAILY GTB Last administered on 05/18/17 09:01; Admin Dose 1 TAB; Start 05/07/17 at 09:00 Pramipexole (Mirapex) 0.5 mg DAILY GTB Last administered on 05/18/17 09:32; Admin Dose 0.5 MG; Start 05/07/17 at 09:00 Sodium Biphosphate/ Sodium Phosphate (Fleet Enema Pediatric) 118 ml Q72H PRN [place] CONSTIPATION; Start 05/06/17 at 17:00 Citric Acid/ Sodium Citrate (Bicitra) 30 ml BID PO Last administered on 20:45; Admin Dose 30 ML; Start 05/06/17 at 21:00 Heparin Sodium (Porcine) (Heparin (5000 Units/0.5 ml)) 5,000 unit BID SC Last administered on 05/15/17 20:54; Admin Dose 5,000 UNIT; Start 05/06/17 at 21:00 ; Status Future Hold Nystatin (Nystatin Powder) 1 applic BID TOP Last administered on 05/18/17 20: 47; Admin Dose 1 APPLIC; Start 05/09/17 at 21:00 Mupirocin (Bactroban) 1 applic BID TOP Last administered on 05/18/17 20:46; Admin Dose 1 APPLIC; Start 05/09/17 at 12:30 Collagenase (Santyl) 1 applic DAILY TOP Last administered on 05/18/17 09:03; Admin Dose 1 APPLIC; Start 05/09/17 at 15:00 Collagenase 1 applic 1 applic PRN PRN TOP WOUND CARE; Start 05/09/17 at 14:00 Norepinephrine 16 mg/Dextrose 500 ml @ 1.87 mls/hr TITRATE IV ; Start 05/10/17 at 14:00 Dopamine HCl/ Dextrose 250 ml @ 6.848 mls/ hr TITRATE IV Last administered on 05/19/17 01:51; Admin Dose 6.848 MLS/HR; Start 05/10/17 at 18:30 Insulin Aspart (Novolog Insulin Pen) NOVOLOG *MILD* ALGORI... Q4 SC ; Start at 09:00 Miscellaneous Information 1 ea NOTE XX ; Start 05/11/17 at 08:00 Glucose (Glutose) 15 gm Q15M PRN PO DECREASED GLUCOSE; Start 05/11/17 at 08:00 Glucose (Glutose) 22.5 gm Q15M PRN PO DECREASED GLUCOSE; Start 05/11/17 at 08: 00 Dextrose (D50w Syringe) 25 ml Q15M PRN IV DECREASED GLUCOSE Last administered on 05/15/17 04:08; Admin Dose 25 ML; Start 05/11/17 at 08:00 Dextrose (D50w Syringe) 50 ml Q15M PRN IV DECREASED GLUCOSE Last administered on 05/15/17 00:11; Admin Dose 50 ML; Start 05/11/17 at 08:00 Glucagon (Glucagen) 1 mg Q15M PRN IM DECREASED GLUCOSE; Start 05/11/17 at 08:00 Glucose (Glutose) 15 gm Q15M PRN BUCCAL DECREASED GLUCOSE; Start 05/11/17 at 08 :00 Epoetin Vasyl 93489 units 10,000 units MoWeFr@17 SC Last administered on 21:23; Admin Dose 10,000 UNITS; Start 05/13/17 at 17:00 Meropenem/Sodium Chloride (Merrem 500mg/50 ml(Pmx)) 50 ml @ 100 mls/hr Q12 IVPB Last administered on 05/18/17 20:45; Admin Dose 100 MLS/HR; Start at 21:00 IV Flush (NS 10 ml) 10 ml PRN PRN IV IV PROTOCOL; Start 05/15/17 at 17:30 Pantoprazole 40 mg 40 mg BID@06,18 IV Last administered on 05/19/17 06:52; Admin Dose 40 MG; Start 05/16/17 at 10:00 Total Parenteral Nutrition 1,000 ml @ 40 mls/hr Q24H IV Last administered on 16:56; Admin Dose 40 MLS/HR; Start 05/16/17 at 12:00 Fat Emulsion Intravenous 250 ml @ 10.4 mls/hr Q24H IV Last administered on 16:56; Admin Dose 10.4 MLS/HR; Start 05/16/17 at 12:00 Sodium Chloride (1/2 NS) 1,000 ml @ 50 mls/hr Q20H IV Last administered on 06:53; Admin Dose 50 MLS/HR; Start 05/16/17 at 16:00 SMITH RUIZ May 19, 2017 08:48
[2017-05-19] MEDS: MUPIROCIN 2% 22 GM OINT TOP SCH ×2 (09:21→21:02)
[2017-05-19] MEDS: MEROPENEM 500MG/50 ML (PMX) 50 ML IVPB SCH (09:21)
[2017-05-19] MEDS: FERROUS SULFATE (EC) 325 MG TAB PO SCH ×2 (09:21→21:00)
[2017-05-19] MEDS: FOLIC ACID 1 MG TAB GTB SCH (09:21)
[2017-05-19] MEDS: CARBIDOPA/LEVODOPA (25/100) TAB GTB SCH ×3 (09:21→21:00)
[2017-05-19] MEDS: PRAMIPEXOLE 0.25 MG TAB GTB SCH (09:21)
[2017-05-19] MEDS: MULTIVIT/CA CARB/B CMPLX/FA TAB GTB SCH (09:21)
[2017-05-19] MEDS: CITRIC ACID/NA CITRATE 30 ML CUP PO SCH ×2 (09:21→21:00)
[2017-05-19] MEDS: NYSTATIN 30 GM POWDER BTL TOP SCH ×2 (09:22→21:02)
[2017-05-19] MEDS: COLLAGENASE 30 GM TUBE TOP SCH (09:23)
[2017-05-19] MEDS: COLISTIMETHATE (25 MG/ML INHAL SYG) NEB SCH ×3 (09:53→20:14)
[2017-05-19] MEDS: MEMANTINE 5 MG TAB GTB SCH (09:53)
[2017-05-19] MEDS: FAT EMULSION 20% 250 ML IV SCH (12:00)
[2017-05-19] MEDS: TPN 1,000 ML IV SCH (12:00)
[2017-05-19 12:33] LABS: EOSINOPHILS # 0.8 10^3/ul (0.0-0.5); MONOCYTE # 0.2 10^3/ul (0.3-0.9); NEUTROPHIL # 1.6 10^3/ul (1.6-7.5)
[2017-05-19 12:34] LABS: ANISOCYTOSIS 1+ (0-0); HYPOCHROMASIA 1+ (0-0)
--- NOTE | 2017-05-19 13:37 | CONS ---
Date/Time of Note Date/Time of Note DATE: 05/19/17 TIME: 13:37 Assessment/Plan Assessment/Plan Chief Complaint/Hosp Course This 69-year-old female with a history of CVA vent dependent respiratory failure , was brought to the emergency room for the dislodgment of the GJ tube. Patient is nonverbal and no information can be obtained. No GI bleeding no chest pain no shortness of breath. Problems: Additional Assessment/Plan Additional Assessment/Plan 1. Dislodged of the GJ tube accidentally 2. Vent dependent respiratory failure 3. Chronic encephalopathy 4. Renal failure 5. Peripheral vascular disease 6. Anemia Plan GJ tube, could not be done. GI lab did not have GJ tube. Hospital did not have GJ tube I will bring it from other facility. Case discussed with Dr. Blackburn and told him to proceed with jejunostomy tube, [facility] does not have GJ tube and because of her anatomy it is technically difficult to prevent the leakage around G-tube site Jejunostomy tube as per surgeon. Awaiting for the blood pressure to be stabilized before surgery Resume feeding through the jejunostomy port connect gastrostomy port to gravity. Patient is tolerating feeding through the jejunostomy port Discussed with Dr. Blackburn for the placement of jejunostomy tube and closure of the G-tube site. Son wants everything to be done Consultation Date/Type/Reason Admit Date/Time May 06, 2017 at 16:34 Type of Consultation: Pulmonary/critical care 24 HR Interval Summary Subjective hx not possible: pt non-verbal Exam/Review of Systems Vital Signs Vitals Vital Signs Date Time Temp Pulse Resp B/P Pulse Ox O2 Delivery O2 Flow Rate FiO2 05/19/17 12:00 68 05/19/17 11:15 12 98/47 98 Mechanical Ventilator 05/19/17 11:00 30 05/19/17 08:00 97.3 Intake and Output 05/18/17 05/18/17 05/19/17 15:00 23:00 07:00 Intake Total 1181.159 ml 1331.271 ml 821.246 ml Output Total 490 ml 690 ml 340 ml Balance 691.159 ml 641.271 ml 481.246 ml Exam Constitutional: alert, oriented, well developed Psych: nl mood/affect, no complaints Head: atraumatic, normocephalic Eyes: EOMI, PERRL, nl conjunctiva, nl lids, nl sclera ENMT: nl external ears & nose, nl lips & teeth, nl nasal mucosa & septum Neck: non-tender, supple Respiratory: clear to auscultation, normal air movement Cardiovascular: nl pulses, regular rate and rhythm Gastrointestinal: nl liver, spleen, non-tender, soft Musculoskeletal: nl extremities to inspection, nl gait and stance Extremities: normal pulses Neurological: OUTSIDE CUTTER HAND II-XII intact, nl mental status, nl speech, nl strength Skin: nl turgor, No rash or lesions Lymph: nl lymph nodes Results Result Diagram: 05/19/175 05/19/175 Results 24 hrs Laboratory Tests Test 05/18/17 13:57 05/18/17 17:04 05/18/17 21:04 05/19/17 01:35 Hemoglobin 8.0 L Hematocrit 24.9 L Bedside Glucose 98 101 106 Test 05/19/17 04:45 05/19/17 04:55 05/19/17 09:58 05/19/17 12:53 White Blood Count 3.6 #L Red Blood Count 2.44 L Hemoglobin 7.2 L Hematocrit 22.7 L Mean Corpuscular Volume 93.0 Mean Corpuscular Hemoglobin 29.5 Mean Corpuscular Hemoglobin Concent 31.7 L Red Cell Distribution Width 17.2 H Platelet Count 141 # Mean Platelet Volume 10.5 H Neutrophils % 45.0 Lymphocytes % 28.0 Monocytes % 6.0 Eosinophils % 21.0 H Basophils % Nucleated Red Blood Cells % 0.0 Neutrophils # 1.6 Lymphocytes # 1.0 Monocytes # 0.2 L Eosinophils # 0.8 H Basophils # Nucleated Red Blood Cells # Hypochromasia 1+ Anisocytosis 1+ Sodium Level 144 Potassium Level 3.8 Chloride Level 110 Carbon Dioxide Level 24 Anion Gap 14 Blood Urea Nitrogen 34 H Creatinine 1.83 H Glucose Level 93 Calcium Level 9.0 Phosphorus Level 3.7 Magnesium Level 2.0 Bedside Glucose 101 99 111 Medications Medications Current Medications Atorvastatin Calcium (Lipitor) 10 mg QHS GTB Last administered on 05/18/17 20: 45; Admin Dose 10 MG; Start 05/06/17 at 21:00 Bisacodyl (Dulcolax Supp) 10 mg Q48H [place] Last administered on 05/18/17 16:45; Admin Dose 10 MG; Start 05/06/17 at 17:00 Carbidopa/Levodopa (Sinemet (25/ 100)) 1 tab TID GTB Last administered on 13:29; Admin Dose 1 TAB; Start 05/06/17 at 21:00 Clopidogrel Bisulfate (plaVIX) 75 mg DAILY GTB Last administered on 05/17/17 10:40; Admin Dose 75 MG; Start 05/07/17 at 09:00; Status Future Hold Donepezil HCl (Aricept) 10 mg QHS GTB Last administered on 05/18/17 20:45; Admin Dose 10 MG; Start 05/06/17 at 21:00 Ferrous Sulfate (Ferrous Sulfate (Ec)) 325 mg BID PO Last administered on 09:21; Admin Dose 325 MG; Start 05/06/17 at 21:00 Folic Acid (Folic Acid) 1 mg DAILY GTB Last administered on 05/19/17 09:21; Admin Dose 1 MG; Start 05/07/17 at 09:00 Lactobacillus Acidophilus/ Rhamnosus (Culturelle) 1 cap QHS GTB Last administered on 05/18/17 20:50; Admin Dose 1 CAP; Start 05/06/17 at 21:00 Magnesium Hydroxide (Milk Of Mag) 30 ml Q24H GTB Last administered on 16:45; Admin Dose 30 ML; Start 05/06/17 at 17:00 Memantine (Namenda) 5 mg QAM GTB Last administered on 05/19/17 09:53; Admin Dose 5 MG; Start 05/07/17 at 09:00 Metoprolol Tartrate (Lopressor) 25 mg Q12H GTB Last administered on 05/18/17 16:47; Admin Dose 25 MG; Start 05/06/17 at 17:00 Multivit/Ca Carb/ B Cmplx/FA/Prenat (Radhika-John) 1 tab DAILY GTB Last administered on 05/19/17 09:21; Admin Dose 1 TAB; Start 05/07/17 at 09:00 Pramipexole (Mirapex) 0.5 mg DAILY GTB Last administered on 05/19/17 09:21; Admin Dose 0.5 MG; Start 05/07/17 at 09:00 Sodium Biphosphate/ Sodium Phosphate (Fleet Enema Pediatric) 118 ml Q72H PRN [place] CONSTIPATION; Start 05/06/17 at 17:00 Citric Acid/ Sodium Citrate (Bicitra) 30 ml BID PO Last administered on 09:21; Admin Dose 30 ML; Start 05/06/17 at 21:00 Heparin Sodium (Porcine) (Heparin (5000 Units/0.5 ml)) 5,000 unit BID SC Last administered on 05/15/17 20:54; Admin Dose 5,000 UNIT; Start 05/06/17 at 21:00 ; Status Future Hold Nystatin (Nystatin Powder) 1 applic BID TOP Last administered on 05/19/17 09: 22; Admin Dose 1 APPLIC; Start 05/09/17 at 21:00 Mupirocin (Bactroban) 1 applic BID TOP Last administered on 05/19/17 09:21; Admin Dose 1 APPLIC; Start 05/09/17 at 12:30 Collagenase (Santyl) 1 applic DAILY TOP Last administered on 05/19/17 09:23; Admin Dose 1 APPLIC; Start 05/09/17 at 15:00 Collagenase 1 applic 1 applic PRN PRN TOP WOUND CARE; Start 05/09/17 at 14:00 Norepinephrine 16 mg/Dextrose 500 ml @ 1.87 mls/hr TITRATE IV ; Start 05/10/17 at 14:00 Dopamine HCl/ Dextrose 250 ml @ 6.848 mls/ hr TITRATE IV Last administered on 05/19/17 01:51; Admin Dose 6.848 MLS/HR; Start 05/10/17 at 18:30 Insulin Aspart (Novolog Insulin Pen) NOVOLOG *MILD* ALGORI... Q4 SC ; Start at 09:00 Miscellaneous Information 1 ea NOTE XX ; Start 05/11/17 at 08:00 Glucose (Glutose) 15 gm Q15M PRN PO DECREASED GLUCOSE; Start 05/11/17 at 08:00 Glucose (Glutose) 22.5 gm Q15M PRN PO DECREASED GLUCOSE; Start 05/11/17 at 08: 00 Dextrose (D50w Syringe) 25 ml Q15M PRN IV DECREASED GLUCOSE Last administered on 05/15/17 04:08; Admin Dose 25 ML; Start 05/11/17 at 08:00 Dextrose (D50w Syringe) 50 ml Q15M PRN IV DECREASED GLUCOSE Last administered on 05/15/17 00:11; Admin Dose 50 ML; Start 05/11/17 at 08:00 Glucagon (Glucagen) 1 mg Q15M PRN IM DECREASED GLUCOSE; Start 05/11/17 at 08:00 Glucose (Glutose) 15 gm Q15M PRN BUCCAL DECREASED GLUCOSE; Start 05/11/17 at 08 :00 Epoetin Vasyl 66399 units 10,000 units MoWeFr@17 SC Last administered on 21:23; Admin Dose 10,000 UNITS; Start 05/13/17 at 17:00 Meropenem/Sodium Chloride (Merrem 500mg/50 ml(Pmx)) 50 ml @ 100 mls/hr Q12 IVPB Last administered on 05/19/17 09:21; Admin Dose 100 MLS/HR; Start at 21:00 IV Flush (NS 10 ml) 10 ml PRN PRN IV IV PROTOCOL; Start 05/15/17 at 17:30 Pantoprazole 40 mg 40 mg BID@06,18 IV Last administered on 05/19/17 06:52; Admin Dose 40 MG; Start 05/16/17 at 10:00 Sodium Chloride (1/2 NS) 1,000 ml @ 50 mls/hr Q20H IV Last administered on 06:53; Admin Dose 50 MLS/HR; Start 05/16/17 at 16:00 Miscellaneous Information (*Rx Drug Level Order Reminder*) RANDOM VANCOMYCIN LEVEL 7... ONCE ONCE XX ; Start 05/20/17 at 05:00; Stop 05/20/17 at 05:01 SYLWIA SY MD May 19, 2017 13:37
--- NOTE | 2017-05-19 15:52 | PN ---
Date/Time of Note Date/Time of Note DATE: 05/19/17 TIME: 15:41 Assessment/Plan Lines/Catheters IV C[facility]ter Type (from [facility]): PICC Line Collazo in Place (from Nrs): Yes Assessment/Plan Chief Complaint/Hosp Course 1. G-tube dislodgement with cellulitis: s/p abx. Replaced with gjtube by GI, large amount of bilious drainage peristomal; attempt use of gjtube in place for feeding through j port; tolerating tf through jtube -continue local care -feeding per jtube -possible surgery after medical optimization -consider dnr and hospice 2. Septic shock: multifactorial: /: pneumonia + cellulitis + wounds; on pressors -abx -supportive 3. Respiratory failure with trach: PNA with pulm edema; comfortable on vent -pulmonary toilet -abx -supportive 4.STARLA with CKD; +urine output; cr improved -judicious fluids -renally dose meds -per nephrology 5. Leukopenia:11/22 #2, -support -as above 4. Decubitus wound. -off load -local care -nutritional optimization -vitamin c 5. Normocytic anemia: previous coffee ground drainage peristoma; s/p prbc transfusion -monitor and transfuse as needed -continue Epogen 6. Coronary artery disease. -cardiac optimization 7. CHF -supportive -f/u cardiology 8. Diabetes -nutrition and medication optimization 9. Acute/chronic encephalopathy with history of advanced dementia. -supportive -consider hospice 10. ?Scabies: treated prophylactically Thank you, Problems: Subjective 24 Hr Interval Summary Continues to be on pressors. Tolerating tf with +bowel function (brown soft stool). Bilious drainage from gtube site. Warming blanket. Non communicative. Nonverbal indicators of pain not present. No fevers, chills, sz, v/d. Exam/Review of Systems Vital Signs Vitals Vital Signs Date Time Temp Pulse Resp B/P Pulse Ox O2 Delivery O2 Flow Rate FiO2 05/19/17 14:30 68 14 110/38 100 Mechanical Ventilator 05/19/17 12:00 97.8 05/19/17 11:00 30 Intake and Output 05/18/17 05/18/17 05/19/17 15:00 23:00 07:00 Intake Total 1181.159 ml 1331.271 ml 881.246 ml Output Total 490 ml 690 ml 395 ml Balance 691.159 ml 641.271 ml 486.246 ml Exam Free Text/Dictation Constitutional: NAD. Non communicative. Psych: Not alert Head: atraumatic, normocephalic Eyes: PERRL, nl sclera ENMT: mucosa pink and moist Neck: non-tender, other (trach), supple Respiratory: congested cough Cardiovascular: edema Gastrointestinal: distended (mod), other (improved peristomal leak: bilious drainage to ostomy bag), soft, nontender Musculoskeletal: No muscle tone Extremities: edema Neurological: No nl mental status, No nl speech Skin: other (abdominal/peristomal/breast fold redness, moisture damage improving; ) Results Result Diagram: 05/19/17 0445 05/19/17 0445 JOCELYN FINE MD May 19, 2017 15:51
--- NOTE | 2017-05-19 17:35 | CONS ---
Date/Time of Note Date/Time of Note DATE: 05/19/17 TIME: 17:23 Assessment/Plan Assessment/Plan Chief Complaint/Hosp Course ID PROGRESS NOTE TOTAL ABX DAY # 10 => Vanco IV #10 + Colistin INH #4 +Start Cefepime #1 + Start Amikacin #1 Merrem#10 => DC 05/1905/19/17 0445 05/19/17 0445 24H INTERVAL SUMMARY * Clinically status quo -- pressors, obtunded => MICRO ABD RESULTED PSAR MDRO * REPEAT ABD WOUND CX: OUND CULTURE Final Organism 1 PSEUDOMONAS AERUGINOSA QUANTITY 2+ P.AERUG M.I.C. RX --------- --- AMIKACIN <=2 S AZTREONAM R CEFEPIME 8 S CEFTAZIDIME 16 I CIPROFLOXACIN >=4 R GENTAMICIN >=16 R IMIPENEM >=16 R LEVOFLOXACIN >=8 R TOBRAMYCIN 8 I PIPERACILLIN/TAZOBACTAM R * 05/14/17 SPUTUM: RESPIRATORY CULTURE FINAL P.AERUG STENMAL M.I.C. RX M.I.C. RX --------- --- --------- --- AMIKACIN <=2 S AZTREONAM R CEFEPIME 16 I CEFTAZIDIME 16 I CIPROFLOXACIN >=4 R GENTAMICIN 2 S IMIPENEM >=16 R LEVOFLOXACIN >=8 R >=8 R TOBRAMYCIN <=1 S TRIMETHOPRIM/SULFAMETHOXAZOLE 0.047 S PIPERACILLIN/TAZOBACTAM R PHYSICAL EXAMINATION: GENERAL: VSS,NAD, no fevers == Obese, eyes open HEENT: NGT->Secure / ETT secure NECK: Supple, trach-> midline CHEST: Equal chest rise bilaterally, Vented HEART: Pulse RRR ABDOMEN: Soft -> see photos large EC fistula residual healing scar, cellulitis w/(+)drainage EXTREMITIES: Warm, no edema SKIN: Warm, dry ID ASSESSMENT: 86 yo F w/PMHx Obesity,Parkinson's dementia w/chronic encephalopathy admitted with: 1. Sepsis w/shock, hypothermia, leukocytosis, lactic acidosis => multifactorial as below * 05/07/17 BCx (-) 2. Acute on chronic respiratory failure w/Trach 3. HCAP => Tracheobronchitis * CT (+)Large right pleural effusion/small left effusion * Respiratory Cx 05/14: * Organism 1 PSEUDOMONAS AERUGINOSA QUANTITY 3+ Organism 2 STENOTROPHOMONAS MALTOPHILIA QUANTITY 3+ 4. 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 5. UTI as per urinalysis on admission => urine was not sent for culture 6. Multiple chronic decub ulcers 7. RASH on admission s/p empiric Elimite x1 w/(-)skin scraping for scabies 8. Acute kidney injury 9. Diabetes. 10. Acute on chronic anemia. 11. 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 Still on pressors after 10 days current ABX * -> Let's change Vanco IV to Bactrim improve coverage for Stenotrophomonas * -> Continue Colistin INH attempt de-colonize MDRO PSAR/StenoT's from Trach/ upper airway. * => MICRO ABD RESULTED PSAR MDRO = RESISTANT TO MERREM * Merrem#10 => DC 7/30 * Start high dose Cefepime + Amikacin "double cover" MDRO PSAR 2. Watch renal fx on Bactrim IV + Aminoglycoside -> MDRO leave limited options, the only other option is to start Colistin. . . Problems: Consultation Date/Type/Reason Admit Date/Time May 06, 2017 at 16:34 Initial Consult Date 05/12/17 Type of Consultation: ID Exam/Review of Systems Vital Signs Vitals Vital Signs Date Time Temp Pulse Resp B/P Pulse Ox O2 Delivery O2 Flow Rate FiO2 05/19/17 16:15 97.5 77 12 110/40 100 Mechanical Ventilator 05/19/17 16:00 30 Intake and Output 05/18/17 05/18/17 05/19/17 15:00 23:00 07:00 Intake Total 1181.159 ml 1331.271 ml 934.486 ml Output Total 490 ml 690 ml 395 ml Balance 691.159 ml 641.271 ml 539.486 ml Results Result Diagram: 05/19/17 0445 05/19/17 0445 Results 24 hrs Laboratory Tests Test 05/18/17 21:04 05/19/17 01:35 05/19/17 04:45 05/19/17 04:55 Bedside Glucose 101 106 101 White Blood Count 3.6 #L Red Blood Count 2.44 L Hemoglobin 7.2 L Hematocrit 22.7 L Mean Corpuscular Volume 93.0 Mean Corpuscular Hemoglobin 29.5 Mean Corpuscular Hemoglobin Concent 31.7 L Red Cell Distribution Width 17.2 H Platelet Count 141 # Mean Platelet Volume 10.5 H Neutrophils % 45.0 Lymphocytes % 28.0 Monocytes % 6.0 Eosinophils % 21.0 H Basophils % Nucleated Red Blood Cells % 0.0 Neutrophils # 1.6 Lymphocytes # 1.0 Monocytes # 0.2 L Eosinophils # 0.8 H Basophils # Nucleated Red Blood Cells # Hypochromasia 1+ Anisocytosis 1+ Sodium Level 144 Potassium Level 3.8 Chloride Level 110 Carbon Dioxide Level 24 Anion Gap 14 Blood Urea Nitrogen 34 H Creatinine 1.83 H Glucose Level 93 Calcium Level 9.0 Phosphorus Level 3.7 Magnesium Level 2.0 Test 05/19/17 09:58 05/19/17 12:53 Bedside Glucose 99 111 Medications Medications Current Medications Atorvastatin Calcium (Lipitor) 10 mg QHS GTB Last administered on 7/29/17at 20: 45; Admin Dose 10 MG; Start 05/06/17 at 21:00 Bisacodyl (Dulcolax Supp) 10 mg Q48H [place] Last administered on 05/18/17 16:45; Admin Dose 10 MG; Start 05/06/17 at 17:00 Carbidopa/Levodopa (Sinemet (25/ 100)) 1 tab TID GTB Last administered on 13:29; Admin Dose 1 TAB; Start 05/06/17 at 21:00 Clopidogrel Bisulfate (plaVIX) 75 mg DAILY GTB Last administered on 05/17/17 10:40; Admin Dose 75 MG; Start 05/07/17 at 09:00; Status Future Hold Donepezil HCl (Aricept) 10 mg QHS GTB Last administered on 05/18/17 20:45; Admin Dose 10 MG; Start 05/06/17 at 21:00 Ferrous Sulfate (Ferrous Sulfate (Ec)) 325 mg BID PO Last administered on 09:21; Admin Dose 325 MG; Start 05/06/17 at 21:00 Folic Acid (Folic Acid) 1 mg DAILY GTB Last administered on 05/19/17 09:21; Admin Dose 1 MG; Start 05/07/17 at 09:00 Lactobacillus Acidophilus/ Rhamnosus (Culturelle) 1 cap QHS GTB Last administered on 05/18/17 20:50; Admin Dose 1 CAP; Start 05/06/17 at 21:00 Magnesium Hydroxide (Milk Of Mag) 30 ml Q24H GTB Last administered on 16:45; Admin Dose 30 ML; Start 05/06/17 at 17:00 Memantine (Namenda) 5 mg QAM GTB Last administered on 05/19/17 09:53; Admin Dose 5 MG; Start 05/07/17 at 09:00 Metoprolol Tartrate (Lopressor) 25 mg Q12H GTB Last administered on 05/18/17 16:47; Admin Dose 25 MG; Start 05/06/17 at 17:00 Multivit/Ca Carb/ B Cmplx/FA/Prenat (Radhika-John) 1 tab DAILY GTB Last administered on 05/19/17 09:21; Admin Dose 1 TAB; Start 05/07/17 at 09:00 Pramipexole (Mirapex) 0.5 mg DAILY GTB Last administered on 05/19/17 09:21; Admin Dose 0.5 MG; Start 05/07/17 at 09:00 Sodium Biphosphate/ Sodium Phosphate (Fleet Enema Pediatric) 118 ml Q72H PRN [place] CONSTIPATION; Start 05/06/17 at 17:00 Citric Acid/ Sodium Citrate (Bicitra) 30 ml BID PO Last administered on 09:21; Admin Dose 30 ML; Start 05/06/17 at 21:00 Heparin Sodium (Porcine) (Heparin (5000 Units/0.5 ml)) 5,000 unit BID SC Last administered on 05/15/17 20:54; Admin Dose 5,000 UNIT; Start 05/06/17 at 21:00 ; Status Future Hold Nystatin (Nystatin Powder) 1 applic BID TOP Last administered on 05/19/17 09: 22; Admin Dose 1 APPLIC; Start 05/09/17 at 21:00 Mupirocin (Bactroban) 1 applic BID TOP Last administered on 05/19/17 09:21; Admin Dose 1 APPLIC; Start 05/09/17 at 12:30 Collagenase (Santyl) 1 applic DAILY TOP Last administered on 05/19/17 09:23; Admin Dose 1 APPLIC; Start 05/09/17 at 15:00 Collagenase 1 applic 1 applic PRN PRN TOP WOUND CARE; Start 05/09/17 at 14:00 Norepinephrine 16 mg/Dextrose 500 ml @ 1.87 mls/hr TITRATE IV ; Start 05/10/17 at 14:00 Dopamine HCl/ Dextrose 250 ml @ 6.848 mls/ hr TITRATE IV Last administered on 05/19/17 01:51; Admin Dose 6.848 MLS/HR; Start 05/10/17 at 18:30 Insulin Aspart (Novolog Insulin Pen) NOVOLOG *MILD* ALGORI... Q4 SC ; Start at 09:00 Miscellaneous Information 1 ea NOTE XX ; Start 05/11/17 at 08:00 Glucose (Glutose) 15 gm Q15M PRN PO DECREASED GLUCOSE; Start 05/11/17 at 08:00 Glucose (Glutose) 22.5 gm Q15M PRN PO DECREASED GLUCOSE; Start 05/11/17 at 08: 00 Dextrose (D50w Syringe) 25 ml Q15M PRN IV DECREASED GLUCOSE Last administered on 05/15/17 04:08; Admin Dose 25 ML; Start 05/11/17 at 08:00 Dextrose (D50w Syringe) 50 ml Q15M PRN IV DECREASED GLUCOSE Last administered on 05/15/17 00:11; Admin Dose 50 ML; Start 05/11/17 at 08:00 Glucagon (Glucagen) 1 mg Q15M PRN IM DECREASED GLUCOSE; Start 05/11/17 at 08:00 Glucose (Glutose) 15 gm Q15M PRN BUCCAL DECREASED GLUCOSE; Start 05/11/17 at 08 :00 Epoetin Vasyl 06343 units 10,000 units MoWeFr@17 SC Last administered on 21:23; Admin Dose 10,000 UNITS; Start 05/13/17 at 17:00 Meropenem/Sodium Chloride (Merrem 500mg/50 ml(Pmx)) 50 ml @ 100 mls/hr Q12 IVPB Last administered on 05/19/17 09:21; Admin Dose 100 MLS/HR; Start at 21:00 IV Flush (NS 10 ml) 10 ml PRN PRN IV IV PROTOCOL; Start 05/15/17 at 17:30 Pantoprazole 40 mg 40 mg BID@06,18 IV Last administered on 05/19/17 06:52; Admin Dose 40 MG; Start 05/16/17 at 10:00 Sodium Chloride (1/2 NS) 1,000 ml @ 50 mls/hr Q20H IV Last administered on 06:53; Admin Dose 50 MLS/HR; Start 05/16/17 at 16:00 Miscellaneous Information (*Rx Drug Level Order Reminder*) RANDOM VANCOMYCIN LEVEL 7... ONCE ONCE XX ; Start 05/20/17 at 05:00; Stop 05/20/17 at 05:01 SYLVIA PADRON NP May 19, 2017 17:33
[2017-05-19] MEDS ORDERED: AMIKACIN IV PER PHARMACY XX SCH (18:00)
[2017-05-19] MEDS: MAGNESIUM HYDROXIDE 30ML CUP GTB SCH (18:00)
[2017-05-19] MEDS ORDERED: AMIKACIN 350 MG in SOD CHLORIDE 0.9% 100 ML IVPB SCH (19:15)
[2017-05-19] MEDS: ATORVASTATIN 10 MG TAB GTB SCH (21:00)
[2017-05-19] MEDS ORDERED: CEFEPIME 1GM/50 ML (PMX) 50 ML IVPB SCH (21:00)
[2017-05-19] MEDS: CEFEPIME HCL 0.5 GM in SOD CHLORIDE 0.9% 100 ML IVPB SCH (21:00)
[2017-05-19] MEDS: DONEPEZIL 10 MG TAB GTB SCH (21:00)
[2017-05-19] MEDS ORDERED: TRIMETHOPRIM/SULFAMETHOXAZOLE 10 ML in DEXTROSE 5% 250 ML IVPB SCH (21:00)
[2017-05-19] MEDS: LACTOBACILLUS RHAMNOSUS CAP GTB SCH (21:00)
[2017-05-19] MEDS: TRIMETHOPRIM/SULFAMETHOXAZOLE 10 ML in DEXTROSE 5% 250 ML IVPB SCH (21:01)
[2017-05-20] VITALS (99 sets, daily range): BP systolic 59–153; BP diastolic 35–89; PULSE 59–140; RESP 10–21
[2017-05-20] MEDS: SOD CHLORIDE 0.45% 1,000 ML IV SCH
[2017-05-20] MEDS: DOPamine-D5W 1.6 MG/ML 250 ML IV SCH ×2 (04:17→22:35)
[2017-05-20] MEDS: METOPROLOL 25 MG TAB GTB SCH (05:00)
[2017-05-20 05:15] LABS: HEMATOCRIT 35.9 % (37.0-47.0); HEMOGLOBIN 11.4 g/dl (12.0-16.0); MEAN CORPUSCULAR HEMOGLOBIN 28.7 pg (29.0-33.0); MEAN CORPUSCULAR HGB CONC 31.8 g/dl (32.0-37.0); MEAN CORPUSCULAR VOLUME 90.4 fl (82.0-101.0); PLATELET COUNT 160 10^3/UL (140-415); RED BLOOD COUNT 3.97 10^6/ul (4.20-5.40); RED CELL DISTRIBUTION WIDTH 16.8 % (11.5-14.5); WHITE BLOOD COUNT 5.5 10^3/ul (4.8-10.8)
[2017-05-20 05:24] LABS: POSITIVE DIFF @See below
[2017-05-20 05:53] LABS: CALCIUM 9.3 mg/dl (8.4-10.2); CREATININE 1.91 mg/dl (0.44-1.00); MAGNESIUM 2.4 mg/dl (1.7-2.5); POTASSIUM 3.7 mmol/L (3.5-5.1)
[2017-05-20] MEDS: INSULIN ASPART [NOVOLOG] 3 ML PEN SC SCH ×5 (06:00→23:47)
[2017-05-20] MEDS: TRIMETHOPRIM/SULFAMETHOXAZOLE 10 ML in DEXTROSE 5% 250 ML IVPB SCH ×3 (06:05→21:57)
[2017-05-20] MEDS: PANTOPRAZOLE 40 MG INJ IV SCH ×2 (06:05→17:41)
--- NOTE | 2017-05-20 07:34 | PN ---
Date/Time of Note Date/Time of Note DATE: 05/20/17 TIME: : Assessment/Plan VTE Prophylaxis VTE Prophylaxis Intervention: other Lines/Catheters IV Catheter Type (from Nrsg): PICC Line Central line still needed: Yes Urinary Cath still in place: Yes Reason Cath still needed: other (indicate) Assessment/Plan Chief Complaint/Hosp Course 1. Septic shock Etiology likely multifactorial, pneumonia, cellulitis, wounds, Weaned off pressors if possible Continue IV fluids, broad-spectrum antibiotics CT abdomen shows no acute intra-abdominal process Follow-up with infectious disease, monitor serial lactic acid levels Anemia Status post blood transfusion with appropriate response Follow-up with GI recommendations Continue PPI dysphagia- g tube dislodged, J-tube replaced by GI, tolerating tube feeding Acute hypoxemic respiratory failure status post trach Vent settings ABGs been reviewed Follow-up with pulmonary 3. Nonoliguric acute kidney injury on top of chronic kidney disease stage 4. Etiology hemodynamics, possible progression of disease Urinary output improved Continue to monitor closely No immediate need for renal replacement therapy at this time Hypernatremia Improved chf -cont med/royce -f/u cardiology Give intermittent diuresis, monitor closely in the setting of pressors pleural effusion Consider thoracentesis Monitor closely on diuretics 8. Acute encephalopathy and advanced dementia. Etiology is toxic metabolic. Continue to monitor. 9. Mineral bone disorder. Continue to monitor calcium and phosphorus levels. 10. Pancytopenia Improved Monitor 11. Coronary artery disease. Continue medical management. 12. Diabetes. Continue Accu-Cheks and insulin sliding scale. 13. Decubitus wound. Continue wound care. Gastrointestinal and deep venous thrombosis prophylaxis. Continue proton pump inhibitor hold heparin Hypomagnesemia Replete magnesium sulfate as needed Disposition. Patient has poor prognosis, Please note spent over 40 minutes of critical care time with this patient Problems: Subjective 24 Hr Interval Summary Free Text/Dictation Patient seen and examined Remains on pressure support restarted overnight No other events noted Tolerating tube feeding Exam/Review of Systems Vital Signs Vitals Vital Signs Date Time Temp Pulse Resp B/P Pulse Ox O2 Delivery O2 Flow Rate FiO2 05/20/17 07:00 82 12 127/51 100 Mechanical Ventilator 05/20/17 04:50 30 05/20/17 04:00 97.4 Intake and Output 05/19/17 05/19/17 05/20/17 15:00 23:00 07:00 Intake Total 780 ml 1170 ml 780.04 ml Output Total 508 ml 620 ml 380 ml Balance 272 ml 550 ml 400.04 ml Exam HEENT: Head is normocephalic, NECK: Supple. HEART: Irregular LUNGS: Show diminished breath sounds at base. ABDOMEN: Soft, nontender to palpation without rebound or guarding. Positive G- tube EXTREMITIES: Negative for clubbing, cyanosis. Positive contractures DERMATOLOGIC: No rashes. MUSCULOSKELETAL: No joint effusions, NEUROLOGIC: No change in exam. Results Result Diagram: 05/20/17 0500 05/20/17 0500 Results 24 hrs Laboratory Tests Test 05/19/17 09:58 05/19/17 12:53 05/19/17 18:02 05/20/17 00:03 Bedside Glucose 99 111 90 78 Test 05/20/17 04:56 05/20/17 05:00 05/20/17 06:06 Lab Scanned Report BLOOD TRANSFUSION White Blood Count 5.5 # Red Blood Count 3.97 #L Hemoglobin 11.4 #L Hematocrit 35.9 #L Mean Corpuscular Volume 90.4 Mean Corpuscular Hemoglobin 28.7 L Mean Corpuscular Hemoglobin Concent 31.8 L Red Cell Distribution Width 16.8 H Platelet Count 160 Mean Platelet Volume 11.0 H Neutrophils % Lymphocytes % Monocytes % Eosinophils % Basophils % Nucleated Red Blood Cells % 0.0 Neutrophils # Lymphocytes # Monocytes # Eosinophils # Basophils # Nucleated Red Blood Cells # Sodium Level 143 Potassium Level 3.7 Chloride Level 108 Carbon Dioxide Level 22 Anion Gap 17 H Blood Urea Nitrogen 35 H Creatinine 1.91 H Glucose Level 92 Calcium Level 9.3 Phosphorus Level 4.0 Magnesium Level 2.4 Bedside Glucose 79 Medications Medications Current Medications Atorvastatin Calcium (Lipitor) 10 mg QHS GTB Last administered on 05/19/17 21: 00; Admin Dose 10 MG; Start 05/06/17 at 21:00 Bisacodyl (Dulcolax Supp) 10 mg Q48H [place] Last administered on 05/18/17 16:45; Admin Dose 10 MG; Start 05/06/17 at 17:00 Carbidopa/Levodopa (Sinemet (25/ 100)) 1 tab TID GTB Last administered on 21:00; Admin Dose 1 TAB; Start 05/06/17 at 21:00 Clopidogrel Bisulfate (plaVIX) 75 mg DAILY GTB Last administered on 05/17/17 10:40; Admin Dose 75 MG; Start 05/07/17 at 09:00; Status Future Hold Donepezil HCl (Aricept) 10 mg QHS GTB Last administered on 05/19/17 21:00; Admin Dose 10 MG; Start 05/06/17 at 21:00 Ferrous Sulfate (Ferrous Sulfate (Ec)) 325 mg BID PO Last administered on 21:00; Admin Dose 325 MG; Start 05/06/17 at 21:00 Folic Acid (Folic Acid) 1 mg DAILY GTB Last administered on 05/19/17 09:21; Admin Dose 1 MG; Start 05/07/17 at 09:00 Lactobacillus Acidophilus/ Rhamnosus (Culturelle) 1 cap QHS GTB Last administered on 05/19/17 21:00; Admin Dose 1 CAP; Start 05/06/17 at 21:00 Magnesium Hydroxide (Milk Of Mag) 30 ml Q24H GTB Last administered on 18:00; Admin Dose 30 ML; Start 05/06/17 at 17:00 Memantine (Namenda) 5 mg QAM GTB Last administered on 05/19/17 09:53; Admin Dose 5 MG; Start 05/07/17 at 09:00 Metoprolol Tartrate (Lopressor) 25 mg Q12H GTB Last administered on 05/18/17 16:47; Admin Dose 25 MG; Start 05/06/17 at 17:00 Multivit/Ca Carb/ B Cmplx/FA/Prenat (Radhika-John) 1 tab DAILY GTB Last administered on 05/19/17 09:21; Admin Dose 1 TAB; Start 05/07/17 at 09:00 Pramipexole (Mirapex) 0.5 mg DAILY GTB Last administered on 05/19/17 09:21; Admin Dose 0.5 MG; Start 05/07/17 at 09:00 Sodium Biphosphate/ Sodium Phosphate (Fleet Enema Pediatric) 118 ml Q72H PRN [place] CONSTIPATION; Start 05/06/17 at 17:00 Citric Acid/ Sodium Citrate (Bicitra) 30 ml BID PO Last administered on 21:00; Admin Dose 30 ML; Start 05/06/17 at 21:00 Heparin Sodium (Porcine) (Heparin (5000 Units/0.5 ml)) 5,000 unit BID SC Last administered on 05/15/17 20:54; Admin Dose 5,000 UNIT; Start 05/06/17 at 21:00 ; Status Future Hold Nystatin (Nystatin Powder) 1 applic BID TOP Last administered on 05/19/17 21: 02; Admin Dose 1 APPLIC; Start 05/09/17 at 21:00 Mupirocin (Bactroban) 1 applic BID TOP Last administered on 05/19/17 21:02; Admin Dose 1 APPLIC; Start 05/09/17 at 12:30 Collagenase (Santyl) 1 applic DAILY TOP Last administered on 05/19/17 09:23; Admin Dose 1 APPLIC; Start 05/09/17 at 15:00 Collagenase 1 applic 1 applic PRN PRN TOP WOUND CARE; Start 05/09/17 at 14:00 Norepinephrine 16 mg/Dextrose 500 ml @ 1.87 mls/hr TITRATE IV ; Start 05/10/17 at 14:00 Dopamine HCl/ Dextrose 250 ml @ 6.848 mls/ hr TITRATE IV Last administered on 05/20/17 04:17; Admin Dose 27.39 MLS/HR; Start 05/10/17 at 18:30 Miscellaneous Information 1 ea NOTE XX ; Start 05/11/17 at 08:00 Glucose (Glutose) 15 gm Q15M PRN PO DECREASED GLUCOSE; Start 05/11/17 at 08:00 Glucose (Glutose) 22.5 gm Q15M PRN PO DECREASED GLUCOSE; Start 05/11/17 at 08: 00 Dextrose (D50w Syringe) 25 ml Q15M PRN IV DECREASED GLUCOSE Last administered on 05/15/17 04:08; Admin Dose 25 ML; Start 05/11/17 at 08:00 Dextrose (D50w Syringe) 50 ml Q15M PRN IV DECREASED GLUCOSE Last administered on 05/15/17 00:11; Admin Dose 50 ML; Start 05/11/17 at 08:00 Glucagon (Glucagen) 1 mg Q15M PRN IM DECREASED GLUCOSE; Start 05/11/17 at 08:00 Glucose (Glutose) 15 gm Q15M PRN BUCCAL DECREASED GLUCOSE; Start 05/11/17 at 08 :00 Epoetin Vasyl (Epogen (Esrd)) 10,000 units MoWeFr@17 SC Last administered on 21:23; Admin Dose 10,000 UNITS; Start 05/13/17 at 17:00 IV Flush (NS 10 ml) 10 ml PRN PRN IV IV PROTOCOL; Start 05/15/17 at 17:30 Pantoprazole 40 mg 40 mg BID@06,18 IV Last administered on 05/20/17 06:05; Admin Dose 40 MG; Start 05/16/17 at 10:00 Sodium Chloride 1,000 ml @ 50 mls/hr Q20H IV Last administered on 05/19/17 06 :53; Admin Dose 50 MLS/HR; Start 05/16/17 at 16:00 Trimethoprim/ Sulfamethoxazole/ Dextrose (Bactrim/D5W) 260 ml @ 173.333 mls/hr Q8 IVPB Last administered on 05/20/17 06:05; Admin Dose 173.333 MLS/HR; Start 05/19/17 at 21:00 Amikacin Sulfate AMIKACIN PER PHARMACY NOTE XX ; Start 05/19/17 at 18:00 Cefepime HCl/ Sodium Chloride (Maxipime/NS) 100 ml @ 100 mls/hr Q24H IVPB Last administered on 05/19/17 21:00; Admin Dose 100 MLS/HR; Start 05/19/17 at 20:00 Insulin Aspart (Novolog Insulin Pen) NOVOLOG *MILD* ALGORI... Q6 SC ; Start at 00:00 OSMAR MONTAGUE DO May 20, 2017 07:34
--- NOTE | 2017-05-20 07:42 | PN ---
Date/Time of Note Date/Time of Note DATE: 05/20/17 TIME: 07:27 Assessment/Plan Lines/Catheters IV Catheter Type (from Nrs): PICC Line Collazo in Place (from Nrs): Yes Assessment/Plan Chief Complaint/Hosp Course 1. G-tube dislodgement: replaced with gjtube by GI, large amount of bilious drainage peristomal; attempt use of gjtube in place for feeding through j port; tolerating tf through jtube -tolerating tf per jube -?hospice/palliative -possible surgical placement of jtube when medically stable 2. Septic shock: multifactorial: 2/2: pneumonia + cellulitis + wounds; continues on pressors -abx -supportive 3. Respiratory failure with trach: PNA wtih pulm edema; comfortable on vent -pulmonary toilet -abx -supportive 4.STARLA with CKD; +urine output; cr up -judicious fluids -renally dose meds -per nephrology 5. Leukopenia:2/2 #2, normalized -support -as above 4. Hypernatremia: normalized -judicious fluid management 5. Normocytic anemia: previous coffee ground drainage peristoma; s/p prbc transfusion; improved -monitor and transfuse as needed -continue Epogen 6. Hypokalemia: normalized -optimize lytes 7. CHF -supportive -f/u cardiology 8. Diabetes: labile -medical management 9. Acute encephalopathy with history of advanced dementia. -supportive 10. Coronary artery disease. 11. Decubitus wound. Continue wound care. 12. r/o scabies: treated prophylactically 13. Thrombocytopenia 14. Peristomal cellulitis 2/2 #1; gjtube placed in ostomy bag for drainage; + pseudomonas -local care -abx per sensitivity 15. Pancytopenia: improving 16. Hypocalcemia: normalized 17. Hypomagnesemia: normalized Patient seen and examined in collaboration with Dr. Meliton Blackburn Problems: Subjective 24 Hr Interval Summary Continues to be on pressors. Tolerating tf with +bowel function (brown soft stool). yellow drainage from gtube port to drainage bag, improved but continued peristomal leak. Comfortable on vent. nonverbal indicators of pain not present. No fevers, chills, sz, n/v/d. Exam/Review of Systems Vital Signs Vitals Vital Signs Date Time Temp Pulse Resp B/P Pulse Ox O2 Delivery O2 Flow Rate FiO2 05/20/17 07:00 82 12 127/51 100 Mechanical Ventilator 05/20/17 04:50 30 05/20/17 04:00 97.4 Intake and Output 05/19/17 05/19/17 05/20/17 15:00 23:00 07:00 Intake Total 780 ml 1170 ml 780.04 ml Output Total 508 ml 620 ml 380 ml Balance 272 ml 550 ml 400.04 ml Exam Free Text/Dictation Constitutional: alert, non-verbal, No oriented Psych: confusion Head: atraumatic, normocephalic Eyes: PERRL, nl sclera ENMT: mucosa pink and moist Neck: non-tender, other (trach), supple Respiratory: congested cough Cardiovascular: edema Gastrointestinal: distended (mod), other (improved peristomal leak: bilious drainage from g port to drainage bag; J port with feeding), soft, nontender Musculoskeletal: No muscle tone Extremities: edema Neurological: No nl mental status, No nl speech Skin: other (abdominal/peristomal/breast fold redness, moisture damage/ cellulitis improving; ) Results Result Diagram: 05/20/17 0500 05/20/17 0500 SHADI CALDERON NP May 20, 2017 07:37
[2017-05-20 08:28] LABS: ANISOCYTOSIS 1+ (0-0); EOSINOPHILS % (M) 21 % (0-7); GIANT THROMBO% (M) 3 % (0-0); MICROCYTOSIS 1+ (0-0); MONOCYTES % (M) 11 % (0-11); PLATELET ESTIMATE NORMAL; POLYCHROMASIA 3+ (0-0)
[2017-05-20] MEDS: COLLAGENASE 30 GM TUBE TOP SCH ×2 (09:00→10:01)
[2017-05-20] MEDS: FOLIC ACID 1 MG TAB GTB SCH ×2 (09:00→10:00)
[2017-05-20] MEDS: MUPIROCIN 2% 22 GM OINT TOP SCH (09:00)
--- NOTE | 2017-05-20 09:38 | CONS ---
Date/Time of Note Date/Time of Note DATE: 05/20/17 TIME: 09:36 Assessment/Plan Assessment/Plan Additional Assessment/Plan Ventilator setting; AC of 12, tidal volume 500, PEEP of 0, 30% FiO2. Patient currently on dopamine at 3 mics per kilogram per minute. Assessment and recommendations; 1. Patient admitted for abdominal wall cellulitis currently on broad-spectrum antibiotics. 2. Advanced dementia. 3. Renal insufficiency. 4. Improving anemia. Continue current supportive care. Prognosis is very poor. Consultation Date/Type/Reason Admit Date/Time May 06, 2017 at 16:34 Initial Consult Date 05/10/17 Type of Consultation: Pulmonary/critical care 24 HR Interval Summary Free Text/Dictation Patient's condition remains critical. Remains essentially unresponsive. Still requiring pressor support for hypotension. General exam; elderly woman, on ventilator via tracheostomy, currently in no distress. Unresponsive. Exam/Review of Systems Vital Signs Vitals Vital Signs Date Time Temp Pulse Resp B/P Pulse Ox O2 Delivery O2 Flow Rate FiO2 05/20/17 08:00 75 05/20/17 07:00 12 127/51 100 Mechanical Ventilator 05/20/17 04:50 30 05/20/17 04:00 97.4 Intake and Output 05/19/17 05/19/17 05/20/17 15:00 23:00 07:00 Intake Total 780 ml 1170 ml 780.04 ml Output Total 508 ml 620 ml 380 ml Balance 272 ml 550 ml 400.04 ml Exam HEENT exam; supple neck, no JVD. No lymphadenopathy. Midline trachea. Trach ostomy in place. Patient has multiple carious teeth. Chest exam; diminished but clear breath sound. S1-S2 audible, no murmurs. Regular rhythm. Abdomen exam; soft, there is a dressing applied over the upper abdomen. Bowel sounds are audible. G-tube in place. Extremity exam; trace edema. 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 Results Result Diagram: 05/20/17 0500 05/20/17 0500 Results 24 hrs Laboratory Tests Test 05/19/17 09:58 05/19/17 12:53 05/19/17 18:02 05/20/17 00:03 Bedside Glucose 99 111 90 78 Test 05/20/17 04:56 05/20/17 05:00 05/20/17 06:06 Lab Scanned Report BLOOD TRANSFUSION White Blood Count 5.5 # Red Blood Count 3.97 #L Hemoglobin 11.4 #L Hematocrit 35.9 #L Mean Corpuscular Volume 90.4 Mean Corpuscular Hemoglobin 28.7 L Mean Corpuscular Hemoglobin Concent 31.8 L Red Cell Distribution Width 16.8 H Platelet Count 160 Mean Platelet Volume 11.0 H Neutrophils % Segmented Neutrophils % (Manual) 46 Band Neutrophils % (Manual) 2 Lymphocytes % Lymphocytes % (Manual) 20 Monocytes % Monocytes % (Manual) 11 Eosinophils % Eosinophils % (Manual) 21 H Basophils % Nucleated Red Blood Cells % 0.0 Neutrophils # Neutrophils # (Manual) 2.5 Band Neutrophils # 0.1 Absolute Lymphocytes (Manual) 1.1 Lymphocytes # Monocytes # Absolute Monocytes (Manual) 0.6 Eosinophils # Basophils # Nucleated Red Blood Cells # Smudge Cells % 11 H Thrombocytosis 3 H Platelet Estimate NORMAL Polychromasia 3+ Anisocytosis 1+ Microcytosis 1+ Sodium Level 143 Potassium Level 3.7 Chloride Level 108 Carbon Dioxide Level 22 Anion Gap 17 H Blood Urea Nitrogen 35 H Creatinine 1.91 H Glucose Level 92 Calcium Level 9.3 Phosphorus Level 4.0 Magnesium Level 2.4 Bedside Glucose 79 Medications Medications Current Medications Atorvastatin Calcium (Lipitor) 10 mg QHS GTB Last administered on 05/19/17 21: 00; Admin Dose 10 MG; Start 05/06/17 at 21:00 Bisacodyl (Dulcolax Supp) 10 mg Q48H [place] Last administered on 05/18/17 16:45; Admin Dose 10 MG; Start 05/06/17 at 17:00 Carbidopa/Levodopa (Sinemet (25/ 100)) 1 tab TID GTB Last administered on 21:00; Admin Dose 1 TAB; Start 05/06/17 at 21:00 Clopidogrel Bisulfate (plaVIX) 75 mg DAILY GTB Last administered on 05/17/17 10:40; Admin Dose 75 MG; Start 05/07/17 at 09:00; Status Future Hold Donepezil HCl (Aricept) 10 mg QHS GTB Last administered on 05/19/17 21:00; Admin Dose 10 MG; Start 05/06/17 at 21:00 Ferrous Sulfate (Ferrous Sulfate (Ec)) 325 mg BID PO Last administered on 21:00; Admin Dose 325 MG; Start 05/06/17 at 21:00 Folic Acid (Folic Acid) 1 mg DAILY GTB Last administered on 05/19/17 09:21; Admin Dose 1 MG; Start 05/07/17 at 09:00 Lactobacillus Acidophilus/ Rhamnosus (Culturelle) 1 cap QHS GTB Last administered on 05/19/17 21:00; Admin Dose 1 CAP; Start 05/06/17 at 21:00 Magnesium Hydroxide (Milk Of Mag) 30 ml Q24H GTB Last administered on 18:00; Admin Dose 30 ML; Start 05/06/17 at 17:00 Memantine (Namenda) 5 mg QAM GTB Last administered on 05/19/17 09:53; Admin Dose 5 MG; Start 05/07/17 at 09:00 Metoprolol Tartrate (Lopressor) 25 mg Q12H GTB Last administered on 05/18/17 16:47; Admin Dose 25 MG; Start 05/06/17 at 17:00 Multivit/Ca Carb/ B Cmplx/FA/Prenat (Radhika-John) 1 tab DAILY GTB Last administered on 05/19/17 09:21; Admin Dose 1 TAB; Start 05/07/17 at 09:00 Pramipexole (Mirapex) 0.5 mg DAILY GTB Last administered on 05/19/17 09:21; Admin Dose 0.5 MG; Start 05/07/17 at 09:00 Sodium Biphosphate/ Sodium Phosphate (Fleet Enema Pediatric) 118 ml Q72H PRN [place] CONSTIPATION; Start 05/06/17 at 17:00 Citric Acid/ Sodium Citrate (Bicitra) 30 ml BID PO Last administered on 21:00; Admin Dose 30 ML; Start 05/06/17 at 21:00 Heparin Sodium (Porcine) (Heparin (5000 Units/0.5 ml)) 5,000 unit BID SC Last administered on 05/15/17 20:54; Admin Dose 5,000 UNIT; Start 05/06/17 at 21:00 ; Status Future Hold Nystatin (Nystatin Powder) 1 applic BID TOP Last administered on 05/19/17 21: 02; Admin Dose 1 APPLIC; Start 05/09/17 at 21:00 Mupirocin (Bactroban) 1 applic BID TOP Last administered on 05/19/17 21:02; Admin Dose 1 APPLIC; Start 05/09/17 at 12:30 Collagenase (Santyl) 1 applic DAILY TOP Last administered on 05/19/17 09:23; Admin Dose 1 APPLIC; Start 05/09/17 at 15:00 Collagenase 1 applic 1 applic PRN PRN TOP WOUND CARE; Start 05/09/17 at 14:00 Norepinephrine 16 mg/Dextrose 500 ml @ 1.87 mls/hr TITRATE IV ; Start 05/10/17 at 14:00 Dopamine HCl/ Dextrose 250 ml @ 6.848 mls/ hr TITRATE IV Last administered on 05/20/17 04:17; Admin Dose 27.39 MLS/HR; Start 05/10/17 at 18:30 Miscellaneous Information 1 ea NOTE XX ; Start 05/11/17 at 08:00 Glucose (Glutose) 15 gm Q15M PRN PO DECREASED GLUCOSE; Start 05/11/17 at 08:00 Glucose (Glutose) 22.5 gm Q15M PRN PO DECREASED GLUCOSE; Start 05/11/17 at 08: 00 Dextrose (D50w Syringe) 25 ml Q15M PRN IV DECREASED GLUCOSE Last administered on 05/15/17 04:08; Admin Dose 25 ML; Start 05/11/17 at 08:00 Dextrose (D50w Syringe) 50 ml Q15M PRN IV DECREASED GLUCOSE Last administered on 05/15/17 00:11; Admin Dose 50 ML; Start 05/11/17 at 08:00 Glucagon (Glucagen) 1 mg Q15M PRN IM DECREASED GLUCOSE; Start 05/11/17 at 08:00 Glucose (Glutose) 15 gm Q15M PRN BUCCAL DECREASED GLUCOSE; Start 05/11/17 at 08 :00 Epoetin Vasyl (Epogen (Esrd)) 10,000 units MoWeFr@17 SC Last administered on 21:23; Admin Dose 10,000 UNITS; Start 05/13/17 at 17:00 IV Flush (NS 10 ml) 10 ml PRN PRN IV IV PROTOCOL; Start 05/15/17 at 17:30 Pantoprazole 40 mg 40 mg BID@06,18 IV Last administered on 05/20/17 06:05; Admin Dose 40 MG; Start 05/16/17 at 10:00 Trimethoprim/ Sulfamethoxazole/ Dextrose (Bactrim/D5W) 260 ml @ 173.333 mls/hr Q8 IVPB Last administered on 05/20/17 06:05; Admin Dose 173.333 MLS/HR; Start 05/19/17 at 21:00 Amikacin Sulfate AMIKACIN PER PHARMACY NOTE XX ; Start 05/19/17 at 18:00 Cefepime HCl/ Sodium Chloride (Maxipime/NS) 100 ml @ 100 mls/hr Q24H IVPB Last administered on 05/19/17 21:00; Admin Dose 100 MLS/HR; Start 05/19/17 at 20:00 Insulin Aspart (Novolog Insulin Pen) NOVOLOG *MILD* ALGORI... Q6 SC ; Start at 00:00 Midodrine (Proamatine) 5 mg TID@,,17 GTB ; Start 05/20/17 at 09:00 SMITH RUIZ May 20, 2017 09:38
[2017-05-20] MEDS: COLISTIMETHATE (25 MG/ML INHAL SYG) NEB SCH ×2 (09:49→20:32)
[2017-05-20] MEDS: CITRIC ACID/NA CITRATE 30 ML CUP PO SCH ×2 (09:59→21:00)
[2017-05-20] MEDS: MULTIVIT/CA CARB/B CMPLX/FA TAB GTB SCH (09:59)
[2017-05-20] MEDS: MIDODRINE 5 MG TAB GTB SCH ×4 (09:59→16:06)
[2017-05-20] MEDS: PRAMIPEXOLE 0.25 MG TAB GTB SCH ×2 (10:00→12:18)
[2017-05-20] MEDS: CARBIDOPA/LEVODOPA (25/100) TAB GTB SCH ×4 (10:00→21:00)
[2017-05-20] MEDS: NYSTATIN 30 GM POWDER BTL TOP SCH ×2 (10:02→21:57)
[2017-05-20] MEDS: FERROUS SULFATE (EC) 325 MG TAB PO SCH ×3 (10:02→21:00)
[2017-05-20] MEDS: MEMANTINE 5 MG TAB GTB SCH (11:27)
--- NOTE | 2017-05-20 11:59 | CONS ---
Date/Time of Note Date/Time of Note DATE: 05/20/17 TIME: 11:56 Assessment/Plan Assessment/Plan Chief Complaint/Hosp Course ID PROGRESS NOTE TOTAL ABX DAY # 11 => Colistin INH #5 +Cefepime #2 + Amikacin #2 + Bactrim IV # 2(Stenotrophomonas) Merrem#10 => DC 7/30 Vanco IV #10 => DC 7/30 24H INTERVAL SUMMARY * Clinically status quo -- pressors, obtunded => MICRO ABD RESULTED PSAR MDRO * REPEAT ABD WOUND CX: OUND CULTURE Final Organism 1 PSEUDOMONAS AERUGINOSA QUANTITY 2+ P.AERUG M.I.C. RX --------- --- AMIKACIN <=2 S AZTREONAM R CEFEPIME 8 S CEFTAZIDIME 16 I CIPROFLOXACIN >=4 R GENTAMICIN >=16 R IMIPENEM >=16 R LEVOFLOXACIN >=8 R TOBRAMYCIN 8 I PIPERACILLIN/TAZOBACTAM R * 05/14/17 SPUTUM: RESPIRATORY CULTURE FINAL P.AERUG STENMAL M.I.C. RX M.I.C. RX --------- --- --------- --- AMIKACIN <=2 S AZTREONAM R CEFEPIME 16 I CEFTAZIDIME 16 I CIPROFLOXACIN >=4 R GENTAMICIN 2 S IMIPENEM >=16 R LEVOFLOXACIN >=8 R >=8 R TOBRAMYCIN <=1 S TRIMETHOPRIM/SULFAMETHOXAZOLE 0.047 S PIPERACILLIN/TAZOBACTAM R PHYSICAL EXAMINATION: GENERAL: VSS,NAD, no fevers == Obese, eyes open HEENT: NGT->Secure / ETT secure NECK: Supple, trach-> midline CHEST: Equal chest rise bilaterally, Vented HEART: Pulse RRR ABDOMEN: Soft -> see photos large EC fistula residual healing scar, cellulitis w/(+)drainage EXTREMITIES: Warm, no edema SKIN: Warm, dry ID ASSESSMENT: 86 yo F w/PMHx Obesity,Parkinson's dementia w/chronic encephalopathy admitted with: 1. Sepsis w/shock, hypothermia, leukocytosis, lactic acidosis => multifactorial as below * 05/07/17 BCx (-) 2. Acute on chronic respiratory failure w/Trach 3. HCAP => Tracheobronchitis * CT (+)Large right pleural effusion/small left effusion * Respiratory Cx 05/14: * Organism 1 PSEUDOMONAS AERUGINOSA QUANTITY 3+ Organism 2 STENOTROPHOMONAS MALTOPHILIA QUANTITY 3+ 4. 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 5. UTI as per urinalysis on admission => urine was not sent for culture 6. Multiple chronic decub ulcers 7. RASH on admission s/p empiric Elimite x1 w/(-)skin scraping for scabies 8. Acute kidney injury 9. Diabetes. 10. Acute on chronic anemia. 11. 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 ABX adjusted Day #11-> await clinical response, hopefully improvement 2. Watch renal fx on Bactrim IV + Aminoglycoside -> MDRO leave limited options, the only other option is to start Colistin. . . Problems: Consultation Date/Type/Reason Admit Date/Time May 06, 2017 at 16:34 Initial Consult Date 05/12/17 Type of Consultation: ID Exam/Review of Systems Vital Signs Vitals Vital Signs Date Time Temp Pulse Resp B/P Pulse Ox O2 Delivery O2 Flow Rate FiO2 05/20/17 11:22 73 12 98 30 05/20/17 10:15 134/72 05/20/17 09:45 Mechanical Ventilator 05/20/17 04:00 97.4 Intake and Output 05/19/17 05/19/17 05/20/17 15:00 23:00 07:00 Intake Total 780 ml 1170 ml 780.04 ml Output Total 508 ml 620 ml 380 ml Balance 272 ml 550 ml 400.04 ml Results Result Diagram: 05/20/17 0500 05/20/17 0500 Results 24 hrs Laboratory Tests Test 05/19/17 12:53 05/19/17 18:02 05/20/17 00:03 05/20/17 04:56 Bedside Glucose 111 90 78 Lab Scanned Report BLOOD TRANSFUSION Test 05/20/17 05:00 05/20/17 06:06 White Blood Count 5.5 # Red Blood Count 3.97 #L Hemoglobin 11.4 #L Hematocrit 35.9 #L Mean Corpuscular Volume 90.4 Mean Corpuscular Hemoglobin 28.7 L Mean Corpuscular Hemoglobin Concent 31.8 L Red Cell Distribution Width 16.8 H Platelet Count 160 Mean Platelet Volume 11.0 H Neutrophils % Segmented Neutrophils % (Manual) 46 Band Neutrophils % (Manual) 2 Lymphocytes % Lymphocytes % (Manual) 20 Monocytes % Monocytes % (Manual) 11 Eosinophils % Eosinophils % (Manual) 21 H Basophils % Nucleated Red Blood Cells % 0.0 Neutrophils # Neutrophils # (Manual) 2.5 Band Neutrophils # 0.1 Absolute Lymphocytes (Manual) 1.1 Lymphocytes # Monocytes # Absolute Monocytes (Manual) 0.6 Eosinophils # Basophils # Nucleated Red Blood Cells # Smudge Cells % 11 H Thrombocytosis 3 H Platelet Estimate NORMAL Polychromasia 3+ Anisocytosis 1+ Microcytosis 1+ Sodium Level 143 Potassium Level 3.7 Chloride Level 108 Carbon Dioxide Level 22 Anion Gap 17 H Blood Urea Nitrogen 35 H Creatinine 1.91 H Glucose Level 92 Calcium Level 9.3 Phosphorus Level 4.0 Magnesium Level 2.4 Bedside Glucose 79 Medications Medications Current Medications Atorvastatin Calcium (Lipitor) 10 mg QHS GTB Last administered on 05/19/17t 21: 00; Admin Dose 10 MG; Start 05/06/17 at 21:00 Bisacodyl (Dulcolax Supp) 10 mg Q48H [place] Last administered on 05/18/17 16:45; Admin Dose 10 MG; Start 05/06/17 at 17:00 Carbidopa/Levodopa (Sinemet (25/ 100)) 1 tab TID GTB Last administered on 21:00; Admin Dose 1 TAB; Start 05/06/17 at 21:00 Clopidogrel Bisulfate (plaVIX) 75 mg DAILY GTB Last administered on 05/17/17 10:40; Admin Dose 75 MG; Start 05/07/17 at 09:00; Status Future Hold Donepezil HCl (Aricept) 10 mg QHS GTB Last administered on 05/19/17 21:00; Admin Dose 10 MG; Start 05/06/17 at 21:00 Ferrous Sulfate (Ferrous Sulfate (Ec)) 325 mg BID PO Last administered on 21:00; Admin Dose 325 MG; Start 05/06/17 at 21:00 Folic Acid (Folic Acid) 1 mg DAILY GTB Last administered on 05/19/17 09:21; Admin Dose 1 MG; Start 05/07/17 at 09:00 Lactobacillus Acidophilus/ Rhamnosus (Culturelle) 1 cap QHS GTB Last administered on 05/19/17 21:00; Admin Dose 1 CAP; Start 05/06/17 at 21:00 Magnesium Hydroxide (Milk Of Mag) 30 ml Q24H GTB Last administered on 18:00; Admin Dose 30 ML; Start 05/06/17 at 17:00 Memantine (Namenda) 5 mg QAM GTB Last administered on 05/19/17 09:53; Admin Dose 5 MG; Start 05/07/17 at 09:00 Metoprolol Tartrate (Lopressor) 25 mg Q12H GTB Last administered on 05/18/17 16:47; Admin Dose 25 MG; Start 05/06/17 at 17:00 Multivit/Ca Carb/ B Cmplx/FA/Prenat (Radhika-John) 1 tab DAILY GTB Last administered on 05/20/17 09:59; Admin Dose 1 TAB; Start 05/07/17 at 09:00 Pramipexole (Mirapex) 0.5 mg DAILY GTB Last administered on 05/19/17 09:21; Admin Dose 0.5 MG; Start 05/07/17 at 09:00 Sodium Biphosphate/ Sodium Phosphate (Fleet Enema Pediatric) 118 ml Q72H PRN [place] CONSTIPATION; Start 05/06/17 at 17:00 Citric Acid/ Sodium Citrate (Bicitra) 30 ml BID PO Last administered on 09:59; Admin Dose 30 ML; Start 05/06/17 at 21:00 Heparin Sodium (Porcine) (Heparin (5000 Units/0.5 ml)) 5,000 unit BID SC Last administered on 05/15/17 20:54; Admin Dose 5,000 UNIT; Start 05/06/17 at 21:00 ; Status Future Hold Nystatin (Nystatin Powder) 1 applic BID TOP Last administered on 05/20/17 10: 02; Admin Dose 1 APPLIC; Start 05/09/17 at 21:00 Mupirocin (Bactroban) 1 applic BID TOP Last administered on 05/19/17 21:02; Admin Dose 1 APPLIC; Start 05/09/17 at 12:30 Collagenase (Santyl) 1 applic DAILY TOP Last administered on 05/19/17 09:23; Admin Dose 1 APPLIC; Start 05/09/17 at 15:00 Collagenase 1 applic 1 applic PRN PRN TOP WOUND CARE; Start 05/09/17 at 14:00 Norepinephrine 16 mg/Dextrose 500 ml @ 1.87 mls/hr TITRATE IV ; Start 05/10/17 at 14:00 Dopamine HCl/ Dextrose 250 ml @ 6.848 mls/ hr TITRATE IV Last administered on 05/20/17 04:17; Admin Dose 27.39 MLS/HR; Start 05/10/17 at 18:30 Miscellaneous Information 1 ea NOTE XX ; Start 05/11/17 at 08:00 Glucose (Glutose) 15 gm Q15M PRN PO DECREASED GLUCOSE; Start 05/11/17 at 08:00 Glucose (Glutose) 22.5 gm Q15M PRN PO DECREASED GLUCOSE; Start 05/11/17 at 08: 00 Dextrose (D50w Syringe) 25 ml Q15M PRN IV DECREASED GLUCOSE Last administered on 05/15/17 04:08; Admin Dose 25 ML; Start 05/11/17 at 08:00 Dextrose (D50w Syringe) 50 ml Q15M PRN IV DECREASED GLUCOSE Last administered on 05/15/17 00:11; Admin Dose 50 ML; Start 05/11/17 at 08:00 Glucagon (Glucagen) 1 mg Q15M PRN IM DECREASED GLUCOSE; Start 05/11/17 at 08:00 Glucose (Glutose) 15 gm Q15M PRN BUCCAL DECREASED GLUCOSE; Start 05/11/17 at 08 :00 Epoetin Vasyl (Epogen (Esrd)) 10,000 units MoWeFr@17 SC Last administered on 21:23; Admin Dose 10,000 UNITS; Start 05/13/17 at 17:00 IV Flush (NS 10 ml) 10 ml PRN PRN IV IV PROTOCOL; Start 05/15/17 at 17:30 Pantoprazole 40 mg 40 mg BID@06,18 IV Last administered on 05/20/17 06:05; Admin Dose 40 MG; Start 05/16/17 at 10:00 Trimethoprim/ Sulfamethoxazole/ Dextrose (Bactrim/D5W) 260 ml @ 173.333 mls/hr Q8 IVPB Last administered on 05/20/17 06:05; Admin Dose 173.333 MLS/HR; Start 05/19/17 at 21:00 Amikacin Sulfate AMIKACIN PER PHARMACY NOTE XX ; Start 05/19/17 at 18:00 Cefepime HCl/ Sodium Chloride (Maxipime/NS) 100 ml @ 100 mls/hr Q24H IVPB Last administered on 05/19/17 21:00; Admin Dose 100 MLS/HR; Start 05/19/17 at 20:00 Insulin Aspart (Novolog Insulin Pen) NOVOLOG *MILD* ALGORI... Q6 SC ; Start at 00:00 Midodrine (Proamatine) 5 mg TID@,, GTB ; Start 05/20/17 at 09:00 SYLVIA PADRON NP May 20, 2017 11:59
[2017-05-20] MEDS: BISACODYL 10 MG SUPP PR SCH (16:06)
[2017-05-20] MEDS: MAGNESIUM HYDROXIDE 30ML CUP GTB SCH (16:06)
[2017-05-20] MEDS: EPOETIN 10000 UNITS/1 ML INJ (ESRD) SC SCH (17:41)
--- NOTE | 2017-05-20 18:13 | PN ---
Date/Time of Note Date/Time of Note DATE: 05/20/17 TIME: 18:12 Assessment/Plan VTE Prophylaxis VTE Prophylaxis Intervention: other Lines/Catheters IV Catheter Type (from Nrs): PICC Line Central line still needed: Yes Urinary Cath still in place: Yes Reason Cath still needed: other (indicate) Assessment/Plan Chief Complaint/Hosp Course 1. hypoxemic resp failure: s/p trach 2. Pafib; currently in NSR 3. hx HTN: now in shock and hypotensive. : STILL requires DOPAMINE DRIP 4. encephalopathy 5. renal failure: f/u with nephrology 6. dysphagia 7. G tube malfunction/ infection 8. GI bleed 9. severe anemia will cont dopamine drip and titrate off when BP stablizes. . . cont resp care nutritional support. CONT ICU care as long as pt is on pressors correct lytes prn f/u renal fx. transfusions prn . olff of PLAVIX DUE TO ANEMIA/ BLEEDING THANK YOU. Problems: Subjective 24 Hr Interval Summary Free Text/Dictation CARDIOLOGY FOLLOW UP NOTE: Discussed with staff and rhythm was reviewed pt remains in NSR. NO AFIB seen NONVERBAL. pt is still ICU on low dose dopamine drip and unable to wean off OBJECTIVE: General: no acute distress HEENT: NC/AT. NECK: NO JVD. no stridor. S/P trach on vent CV: RRR. systolic murmur; no gallop or rubs. PULM: no wheezing anteriorly GI: SOFT, NT, ND, no rebound or guarding s/p PEG Extremity: + B/L LE edema. no clubbing. neuro: opens her eyes to painful stimuli. does not follow commands Psych: calm rectal: deferred Exam/Review of Systems Vital Signs Vitals Vital Signs Date Time Temp Pulse Resp B/P Pulse Ox O2 Delivery O2 Flow Rate FiO2 05/20/17 17:45 72 12 92/50 95 05/20/17 17:05 30 05/20/17 17:00 Mechanical Ventilator 05/20/17 16:00 97.1 Intake and Output 05/19/17 05/19/17 05/20/17 15:00 23:00 07:00 Intake Total 780 ml 1170 ml 780.04 ml Output Total 508 ml 620 ml 380 ml Balance 272 ml 550 ml 400.04 ml Results Result Diagram: 05/20/17 0500 05/20/17 0500 Results 24 hrs Laboratory Tests Test 05/20/17 00:03 05/20/17 04:56 05/20/17 05:00 05/20/17 06:06 Bedside Glucose 78 79 Lab Scanned Report BLOOD TRANSFUSION White Blood Count 5.5 # Red Blood Count 3.97 #L Hemoglobin 11.4 #L Hematocrit 35.9 #L Mean Corpuscular Volume 90.4 Mean Corpuscular Hemoglobin 28.7 L Mean Corpuscular Hemoglobin Concent 31.8 L Red Cell Distribution Width 16.8 H Platelet Count 160 Mean Platelet Volume 11.0 H Neutrophils % Segmented Neutrophils % (Manual) 46 Band Neutrophils % (Manual) 2 Lymphocytes % Lymphocytes % (Manual) 20 Monocytes % Monocytes % (Manual) 11 Eosinophils % Eosinophils % (Manual) 21 H Basophils % Nucleated Red Blood Cells % 0.0 Neutrophils # Neutrophils # (Manual) 2.5 Band Neutrophils # 0.1 Absolute Lymphocytes (Manual) 1.1 Lymphocytes # Monocytes # Absolute Monocytes (Manual) 0.6 Eosinophils # Basophils # Nucleated Red Blood Cells # Smudge Cells % 11 H Thrombocytosis 3 H Platelet Estimate NORMAL Polychromasia 3+ Anisocytosis 1+ Microcytosis 1+ Sodium Level 143 Potassium Level 3.7 Chloride Level 108 Carbon Dioxide Level 22 Anion Gap 17 H Blood Urea Nitrogen 35 H Creatinine 1.91 H Glucose Level 92 Calcium Level 9.3 Phosphorus Level 4.0 Magnesium Level 2.4 Test 05/20/17 12:31 Bedside Glucose 80 Medications Medications Current Medications Atorvastatin Calcium (Lipitor) 10 mg QHS GTB Last administered on 05/19/17 21: 00; Admin Dose 10 MG; Start 05/06/17 at 21:00 Bisacodyl (Dulcolax Supp) [address] Last administered on 05/18/17 16:45; Admin Dose 10 MG; Start 05/06/17 at 17:00 Carbidopa/Levodopa (Sinemet (25/ 100)) 1 tab TID GTB Last administered on 21:00; Admin Dose 1 TAB; Start 05/06/17 at 21:00 Clopidogrel Bisulfate (plaVIX) 75 mg DAILY GTB Last administered on 05/17/17 10:40; Admin Dose 75 MG; Start 05/07/17 at 09:00; Status Future Hold Donepezil HCl (Aricept) 10 mg QHS GTB Last administered on 05/19/17 21:00; Admin Dose 10 MG; Start 05/06/17 at 21:00 Ferrous Sulfate (Ferrous Sulfate (Ec)) 325 mg BID PO Last administered on 21:00; Admin Dose 325 MG; Start 05/06/17 at 21:00 Folic Acid (Folic Acid) 1 mg DAILY GTB Last administered on 05/19/17 09:21; Admin Dose 1 MG; Start 05/07/17 at 09:00 Lactobacillus Acidophilus/ Rhamnosus (Culturelle) 1 cap QHS GTB Last administered on 05/19/17 21:00; Admin Dose 1 CAP; Start 05/06/17 at 21:00 Magnesium Hydroxide (Milk Of Mag) 30 ml Q24H GTB Last administered on 18:00; Admin Dose 30 ML; Start 05/06/17 at 17:00 Memantine (Namenda) 5 mg QAM GTB Last administered on 05/19/17 09:53; Admin Dose 5 MG; Start 05/07/17 at 09:00 Metoprolol Tartrate (Lopressor) 25 mg Q12H GTB Last administered on 05/18/17 16:47; Admin Dose 25 MG; Start 05/06/17 at 17:00; Status Future Hold Multivit/Ca Carb/ B Cmplx/FA/Prenat (Radhika-John) 1 tab DAILY GTB Last administered on 05/20/17 09:59; Admin Dose 1 TAB; Start 05/07/17 at 09:00 Pramipexole (Mirapex) 0.5 mg DAILY GTB Last administered on 05/19/17 09:21; Admin Dose 0.5 MG; Start 05/07/17 at 09:00 Sodium Biphosphate/ Sodium Phosphate (Fleet Enema Pediatric) [address] CONSTIPATION; Start 05/06/17 at 17:00 Citric Acid/ Sodium Citrate (Bicitra) 30 ml BID PO Last administered on 09:59; Admin Dose 30 ML; Start 05/06/17 at 21:00 Heparin Sodium (Porcine) (Heparin (5000 Units/0.5 ml)) 5,000 unit BID SC Last administered on 05/15/17 20:54; Admin Dose 5,000 UNIT; Start 05/06/17 at 21:00 ; Status Future Hold Nystatin (Nystatin Powder) 1 applic BID TOP Last administered on 05/20/17 10: 02; Admin Dose 1 APPLIC; Start 05/09/17 at 21:00 Collagenase (Santyl) 1 applic DAILY TOP Last administered on 05/20/17 09:00; Admin Dose 1 APPLIC; Start 05/09/17 at 15:00 Collagenase 1 applic 1 applic PRN PRN TOP WOUND CARE; Start 05/09/17 at 14:00 Norepinephrine 16 mg/Dextrose 500 ml @ 1.87 mls/hr TITRATE IV ; Start 05/10/17 at 14:00 Dopamine HCl/ Dextrose 250 ml @ 6.848 mls/ hr TITRATE IV Last administered on 05/20/17 04:17; Admin Dose 27.39 MLS/HR; Start 05/10/17 at 18:30 Miscellaneous Information 1 ea NOTE XX ; Start 05/11/17 at 08:00 Glucose (Glutose) 15 gm Q15M PRN PO DECREASED GLUCOSE; Start 05/11/17 at 08:00 Glucose (Glutose) 22.5 gm Q15M PRN PO DECREASED GLUCOSE; Start 05/11/17 at 08: 00 Dextrose (D50w Syringe) 25 ml Q15M PRN IV DECREASED GLUCOSE Last administered on 05/15/17 04:08; Admin Dose 25 ML; Start 05/11/17 at 08:00 Dextrose (D50w Syringe) 50 ml Q15M PRN IV DECREASED GLUCOSE Last administered on 05/15/17 00:11; Admin Dose 50 ML; Start 05/11/17 at 08:00 Glucagon (Glucagen) 1 mg Q15M PRN IM DECREASED GLUCOSE; Start 05/11/17 at 08:00 Glucose (Glutose) 15 gm Q15M PRN BUCCAL DECREASED GLUCOSE; Start 05/11/17 at 08 :00 Epoetin Vasyl (Epogen (Esrd)) 10,000 units MoWeFr@17 SC Last administered on 17:41; Admin Dose 10,000 UNITS; Start 05/13/17 at 17:00 IV Flush (NS 10 ml) 10 ml PRN PRN IV IV PROTOCOL; Start 05/15/17 at 17:30 Pantoprazole 40 mg 40 mg BID@06,18 IV Last administered on 05/20/17 17:41; Admin Dose 40 MG; Start 05/16/17 at 10:00 Trimethoprim/ Sulfamethoxazole/ Dextrose (Bactrim/D5W) 260 ml @ 173.333 mls/hr Q8 IVPB Last administered on 05/20/17 14:43; Admin Dose 173.333 MLS/HR; Start 05/19/17 at 21:00 Amikacin Sulfate AMIKACIN PER PHARMACY NOTE XX ; Start 05/19/17 at 18:00 Cefepime HCl/ Sodium Chloride (Maxipime/NS) 100 ml @ 100 mls/hr Q24H IVPB Last administered on 05/19/17 21:00; Admin Dose 100 MLS/HR; Start 05/19/17 at 20:00 Insulin Aspart (Novolog Insulin Pen) NOVOLOG *MILD* ALGORI... Q6 SC ; Start at 00:00 Midodrine 5 mg 5 mg TID@,, GTB ; Start 05/20/17 at 09:00 Amikacin Sulfate/ Sodium Chloride (Amikacin/NS) 101.4 ml @ 102 mls/hr Q72H IVPB ; Start 05/22/17 at 20:00 MILAGROS MUNOZ MD May 20, 2017 18:13
[2017-05-20] MEDS: CEFEPIME HCL 0.5 GM in SOD CHLORIDE 0.9% 100 ML IVPB SCH (20:21)
[2017-05-20] MEDS: ATORVASTATIN 10 MG TAB GTB SCH (21:00)
[2017-05-20] MEDS: DONEPEZIL 10 MG TAB GTB SCH (21:00)
[2017-05-20] MEDS: LACTOBACILLUS RHAMNOSUS CAP GTB SCH (21:00)
--- NOTE | 2017-05-20 22:32 | CONS ---
Date/Time of Note Date/Time of Note DATE: 05/20/17 TIME: 22:31 Assessment/Plan Assessment/Plan Chief Complaint/Hosp Course This 69-year-old female with a history of CVA vent dependent respiratory failure , was brought to the emergency room for the dislodgment of the GJ tube. Patient is nonverbal and no information can be obtained. No GI bleeding no chest pain no shortness of breath. Problems: Additional Assessment/Plan Additional Assessment/Plan 1. Dislodged of the GJ tube accidentally 2. Vent dependent respiratory failure 3. Chronic encephalopathy 4. Renal failure 5. Peripheral vascular disease 6. Anemia Plan GJ tube, could not be done. GI lab did not have GJ tube. Hospital did not have GJ tube I will bring it from other facility. Case discussed with Dr. Blackburn and told him to proceed with jejunostomy tube, [facility] and because of her anatomy it is technically difficult to prevent the leakage around G-tube site Jejunostomy tube as per surgeon. Awaiting for the blood pressure to be stabilized before surgery Resume feeding through the jejunostomy port connect gastrostomy port to gravity. Patient is tolerating feeding through the jejunostomy port Discussed with Dr. Blackburn for the placement of jejunostomy tube and closure of the G-tube site. Son wants everything to be done if surgery cannot be done then may place another GJ tube Consultation Date/Type/Reason Admit Date/Time May 06, 2017 at 16:34 Type of Consultation: ID [id number] HR Interval Summary Subjective hx not possible: pt non-verbal Exam/Review of Systems Vital Signs Vitals Vital Signs Date Time Temp Pulse Resp B/P Pulse Ox O2 Delivery O2 Flow Rate FiO2 05/20/17 22:15 78 12 97/79 95 Mechanical Ventilator 05/20/17 20:00 30 05/20/17 20:00 97.9 Intake and Output 05/19/17 05/19/17 05/20/17 15:00 23:00 07:00 Intake Total 780 ml 1170 ml 780.04 ml Output Total 508 ml 620 ml 380 ml Balance 272 ml 550 ml 400.04 ml Exam Constitutional: alert, oriented, well developed Psych: nl mood/affect, no complaints Head: atraumatic, normocephalic Eyes: EOMI, PERRL, nl conjunctiva, nl lids, nl sclera ENMT: nl external ears & nose, nl lips & teeth, nl nasal mucosa & septum Neck: non-tender, supple Respiratory: clear to auscultation, normal air movement Cardiovascular: nl pulses, regular rate and rhythm Gastrointestinal: nl liver, spleen, non-tender, soft Musculoskeletal: nl extremities to inspection, nl gait and stance Extremities: normal pulses Neurological: BARGE HAND II-XII intact, nl mental status, nl speech, nl strength Skin: nl turgor, No rash or lesions Lymph: nl lymph nodes Results Result Diagram: 05/20/17 0500 05/20/17 0500 Results 24 hrs Laboratory Tests Test 05/20/17 00:03 05/20/17 04:56 05/20/17 05:00 05/20/17 06:06 Bedside Glucose 78 79 Lab Scanned Report BLOOD TRANSFUSION White Blood Count 5.5 # Red Blood Count 3.97 #L Hemoglobin 11.4 #L Hematocrit 35.9 #L Mean Corpuscular Volume 90.4 Mean Corpuscular Hemoglobin 28.7 L Mean Corpuscular Hemoglobin Concent 31.8 L Red Cell Distribution Width 16.8 H Platelet Count 160 Mean Platelet Volume 11.0 H Neutrophils % Segmented Neutrophils % (Manual) 46 Band Neutrophils % (Manual) 2 Lymphocytes % Lymphocytes % (Manual) 20 Monocytes % Monocytes % (Manual) 11 Eosinophils % Eosinophils % (Manual) 21 H Basophils % Nucleated Red Blood Cells % 0.0 Neutrophils # Neutrophils # (Manual) 2.5 Band Neutrophils # 0.1 Absolute Lymphocytes (Manual) 1.1 Lymphocytes # Monocytes # Absolute Monocytes (Manual) 0.6 Eosinophils # Basophils # Nucleated Red Blood Cells # Smudge Cells % 11 H Thrombocytosis 3 H Platelet Estimate NORMAL Polychromasia 3+ Anisocytosis 1+ Microcytosis 1+ Sodium Level 143 Potassium Level 3.7 Chloride Level 108 Carbon Dioxide Level 22 Anion Gap 17 H Blood Urea Nitrogen 35 H Creatinine 1.91 H Glucose Level 92 Calcium Level 9.3 Phosphorus Level 4.0 Magnesium Level 2.4 Test 05/20/17 12:31 05/20/17 18:02 Bedside Glucose 80 74 Medications Medications Current Medications Atorvastatin Calcium (Lipitor) 10 mg QHS GTB Last administered on 05/19/17 21: 00; Admin Dose 10 MG; Start 05/06/17 at 21:00 Bisacodyl (Dulcolax Supp) 10 mg Q48H DE Last administered on 05/18/17 16:45; Admin Dose 10 MG; Start 05/06/17 at 17:00 Carbidopa/Levodopa (Sinemet (25/ 100)) 1 tab TID GTB Last administered on 21:00; Admin Dose 1 TAB; Start 05/06/17 at 21:00 Clopidogrel Bisulfate (plaVIX) 75 mg DAILY GTB Last administered on 05/17/17 10:40; Admin Dose 75 MG; Start 05/07/17 at 09:00; Status Future Hold Donepezil HCl (Aricept) 10 mg QHS GTB Last administered on 05/19/17 21:00; Admin Dose 10 MG; Start 05/06/17 at 21:00 Ferrous Sulfate (Ferrous Sulfate (Ec)) 325 mg BID PO Last administered on 21:00; Admin Dose 325 MG; Start 05/06/17 at 21:00 Folic Acid (Folic Acid) 1 mg DAILY GTB Last administered on 05/19/17 09:21; Admin Dose 1 MG; Start 05/07/17 at 09:00 Lactobacillus Acidophilus/ Rhamnosus (Culturelle) 1 cap QHS GTB Last administered on 05/19/17 21:00; Admin Dose 1 CAP; Start 05/06/17 at 21:00 Magnesium Hydroxide (Milk Of Mag) 30 ml Q24H GTB Last administered on 18:00; Admin Dose 30 ML; Start 05/06/17 at 17:00 Memantine (Namenda) 5 mg QAM GTB Last administered on 05/19/17 09:53; Admin Dose 5 MG; Start 05/07/17 at 09:00 Metoprolol Tartrate (Lopressor) 25 mg Q12H GTB Last administered on 05/18/17 16:47; Admin Dose 25 MG; Start 05/06/17 at 17:00; Status Future Hold Multivit/Ca Carb/ B Cmplx/FA/Prenat (Radhika-John) 1 tab DAILY GTB Last administered on 05/20/17 09:59; Admin Dose 1 TAB; Start 05/07/17 at 09:00 Pramipexole (Mirapex) 0.5 mg DAILY GTB Last administered on 05/19/17 09:21; Admin Dose 0.5 MG; Start 05/07/17 at 09:00 Sodium Biphosphate/ Sodium Phosphate (Fleet Enema Pediatric) 118 ml Q72H PRN DE CONSTIPATION; Start 05/06/17 at 17:00 Citric Acid/ Sodium Citrate (Bicitra) 30 ml BID PO Last administered on 09:59; Admin Dose 30 ML; Start 05/06/17 at 21:00 Heparin Sodium (Porcine) (Heparin (5000 Units/0.5 ml)) 5,000 unit BID SC Last administered on 05/15/17 20:54; Admin Dose 5,000 UNIT; Start 05/06/17 at 21:00 ; Status Future Hold Nystatin (Nystatin Powder) 1 applic BID TOP Last administered on 05/20/17 21: 57; Admin Dose 1 APPLIC; Start 05/09/17 at 21:00 Collagenase (Santyl) 1 applic DAILY TOP Last administered on 05/20/17 09:00; Admin Dose 1 APPLIC; Start 05/09/17 at 15:00 Collagenase 1 applic 1 applic PRN PRN TOP WOUND CARE; Start 05/09/17 at 14:00 Norepinephrine 16 mg/Dextrose 500 ml @ 1.87 mls/hr TITRATE IV ; Start 05/10/17 at 14:00 Dopamine HCl/ Dextrose 250 ml @ 6.848 mls/ hr TITRATE IV Last administered on 05/20/17 04:17; Admin Dose 27.39 MLS/HR; Start 05/10/17 at 18:30 Miscellaneous Information 1 ea NOTE XX ; Start 05/11/17 at 08:00 Glucose (Glutose) 15 gm Q15M PRN PO DECREASED GLUCOSE; Start 05/11/17 at 08:00 Glucose (Glutose) 22.5 gm Q15M PRN PO DECREASED GLUCOSE; Start 05/11/17 at 08: 00 Dextrose (D50w Syringe) 25 ml Q15M PRN IV DECREASED GLUCOSE Last administered on 05/15/17 04:08; Admin Dose 25 ML; Start 05/11/17 at 08:00 Dextrose (D50w Syringe) 50 ml Q15M PRN IV DECREASED GLUCOSE Last administered on 05/15/17 00:11; Admin Dose 50 ML; Start 05/11/17 at 08:00 Glucagon (Glucagen) 1 mg Q15M PRN IM DECREASED GLUCOSE; Start 05/11/17 at 08:00 Glucose (Glutose) 15 gm Q15M PRN BUCCAL DECREASED GLUCOSE; Start 05/11/17 at 08 :00 Epoetin Vasyl (Epogen (Esrd)) 10,000 units MoWeFr@17 SC Last administered on 17:41; Admin Dose 10,000 UNITS; Start 05/13/17 at 17:00 IV Flush (NS 10 ml) 10 ml PRN PRN IV IV PROTOCOL; Start 05/15/17 at 17:30 Pantoprazole 40 mg 40 mg BID@06,18 IV Last administered on 05/20/17 17:41; Admin Dose 40 MG; Start 05/16/17 at 10:00 Trimethoprim/ Sulfamethoxazole/ Dextrose (Bactrim/D5W) 260 ml @ 173.333 mls/hr Q8 IVPB Last administered on 05/20/17 21:57; Admin Dose 173.333 MLS/HR; Start 05/19/17 at 21:00 Amikacin Sulfate AMIKACIN PER PHARMACY NOTE XX ; Start 05/19/17 at 18:00 Cefepime HCl/ Sodium Chloride (Maxipime/NS) 100 ml @ 100 mls/hr Q24H IVPB Last administered on 05/20/17 20:21; Admin Dose 100 MLS/HR; Start 05/19/17 at 20:00 Insulin Aspart (Novolog Insulin Pen) NOVOLOG *MILD* ALGORI... Q6 SC ; Start at 00:00 Midodrine 5 mg 5 mg TID@,, GTB ; Start 05/20/17 at 09:00 Amikacin Sulfate/ Sodium Chloride (Amikacin/NS) 101.4 ml @ 102 mls/hr Q72H IVPB ; Start 05/22/17 at 20:00 SYLWIA SY MD May 20, 2017 22:32
[2017-05-21] VITALS (106 sets, daily range): BP systolic 70–128; BP diastolic 34–67; PULSE 60–101; RESP 11–15
[2017-05-21 05:25] LABS: HEMATOCRIT 31.4 % (37.0-47.0); HEMOGLOBIN 10.1 g/dl (12.0-16.0); MEAN CORPUSCULAR HEMOGLOBIN 29.4 pg (29.0-33.0); MEAN CORPUSCULAR HGB CONC 32.2 g/dl (32.0-37.0); MEAN CORPUSCULAR VOLUME 91.5 fl (82.0-101.0); PLATELET COUNT 192 10^3/UL (140-415); RED BLOOD COUNT 3.43 10^6/ul (4.20-5.40)
[2017-05-21] MEDS: PANTOPRAZOLE 40 MG INJ IV SCH ×2 (05:43→17:41)
[2017-05-21] MEDS: DEXTROSE 50% 50 ML SYRINGE IV PRN ×2 (05:52→11:44)
[2017-05-21 05:54] LABS: POSITIVE DIFF @See below
[2017-05-21] MEDS: INSULIN ASPART [NOVOLOG] 3 ML PEN SC SCH ×3 (05:58→17:42)
[2017-05-21 06:05] LABS: CALCIUM 8.6 mg/dl (8.4-10.2); CREATININE 1.92 mg/dl (0.44-1.00); MAGNESIUM 2.2 mg/dl (1.7-2.5); PHOSPHORUS 4.3 mg/dl (2.5-4.9); POTASSIUM 3.6 mmol/L (3.5-5.1)
[2017-05-21] MEDS: TRIMETHOPRIM/SULFAMETHOXAZOLE 10 ML in DEXTROSE 5% 250 ML IVPB SCH ×3 (06:21→21:43)
--- NOTE | 2017-05-21 07:29 | PN ---
Date/Time of Note Date/Time of Note DATE: 05/21/17 TIME: 07:28 Assessment/Plan VTE Prophylaxis VTE Prophylaxis Intervention: other Lines/Catheters IV Catheter Type (from Nrsg): PICC Line Central line still needed: Yes Urinary Cath still in place: Yes Reason Cath still needed: other (indicate) Assessment/Plan Chief Complaint/Hosp Course 1. Septic shock Etiology likely multifactorial, pneumonia, cellulitis, wounds, Weaned off pressors if possible Continue IV fluids, broad-spectrum antibiotics CT abdomen shows no acute intra-abdominal process Follow-up with infectious disease, monitor serial lactic acid levels Anemia Status post blood transfusion with appropriate response Follow-up with GI recommendations Continue PPI dysphagia- g tube dislodged, J-tube replaced by GI, G tube feeding held due to leak around G-tube site Possible surgical placement of J-tube once patient clinically stable Acute hypoxemic respiratory failure status post trach Vent settings ABGs been reviewed Follow-up with pulmonary 3. Nonoliguric acute kidney injury on top of chronic kidney disease stage 4. Etiology hemodynamics, possible progression of disease Urinary output improved Continue to monitor closely No immediate need for renal replacement therapy at this time Hypernatremia Improved chf -cont med/royce -f/u cardiology Give intermittent diuresis, monitor closely in the setting of pressors pleural effusion Consider thoracentesis Monitor closely on diuretics 8. Acute encephalopathy and advanced dementia. Etiology is toxic metabolic. Continue to monitor. 9. Mineral bone disorder. Continue to monitor calcium and phosphorus levels. 10. Pancytopenia Improved Monitor 11. Coronary artery disease. Continue medical management. 12. Diabetes. Continue Accu-Cheks and insulin sliding scale. 13. Decubitus wound. Continue wound care. Gastrointestinal and deep venous thrombosis prophylaxis. Continue proton pump inhibitor hold heparin Hypomagnesemia Replete magnesium sulfate as needed Disposition. Patient has poor prognosis, Please note spent over 40 minutes of critical care time with this patient Problems: Subjective 24 Hr Interval Summary Free Text/Dictation Patient seen and examined Remains critically on pressure support unable to be weaned off Tube feeding held due to leak around G-tube site Exam/Review of Systems Vital Signs Vitals Vital Signs Date Time Temp Pulse Resp B/P Pulse Ox O2 Delivery O2 Flow Rate FiO2 05/21/17 07:00 80 13 108/45 96 Mechanical Ventilator 05/21/17 06:00 97.6 05/21/17 05:02 30 Intake and Output 05/20/17 05/20/17 05/21/17 15:00 23:00 07:00 Intake Total 629.812 ml 581.265 ml 264.046 ml Output Total 435 ml 375 ml 345 ml Balance 194.812 ml 206.265 ml -80.954 ml Exam HEENT: Head is normocephalic, NECK: Supple. HEART: Irregular LUNGS: Show diminished breath sounds at base. ABDOMEN: Soft, nontender to palpation without rebound or guarding. EXTREMITIES: Negative for clubbing, cyanosis. Positive edema, contractures DERMATOLOGIC: No rashes. MUSCULOSKELETAL: No joint effusions, NEUROLOGIC: No change in exam. Results Result Diagram: 05/21/17 0425 05/21/17 0425 Results 24 hrs Laboratory Tests Test 05/20/17 12:31 05/20/17 18:02 05/20/17 23:44 05/21/17 04:25 Bedside Glucose 80 74 88 White Blood Count 5.0 Red Blood Count 3.43 L Hemoglobin 10.1 L Hematocrit 31.4 L Mean Corpuscular Volume 91.5 Mean Corpuscular Hemoglobin 29.4 Mean Corpuscular Hemoglobin Concent 32.2 Red Cell Distribution Width 17.0 H Platelet Count 192 Mean Platelet Volume 11.0 H Neutrophils % Lymphocytes % Monocytes % Nucleated Red Blood Cells % 0.0 Neutrophils # Lymphocytes # Monocytes # Sodium Level 143 Potassium Level 3.6 Chloride Level 107 Carbon Dioxide Level 23 Anion Gap 17 H Blood Urea Nitrogen 34 H Creatinine 1.92 H Glucose Level 91 Calcium Level 8.6 Phosphorus Level 4.3 Magnesium Level 2.2 Test 05/21/17 05:46 05/21/17 06:14 05/21/17 06:32 Bedside Glucose 59 L 100 98 Medications Medications Current Medications Atorvastatin Calcium (Lipitor) 10 mg QHS GTB Last administered on 05/19/17 21: 00; Admin Dose 10 MG; Start 05/06/17 at 21:00 Bisacodyl (Dulcolax Supp) 10 mg Q48H [place] Last administered on 05/18/17 16:45; Admin Dose 10 MG; Start 05/06/17 at 17:00 Carbidopa/Levodopa (Sinemet (25/ 100)) 1 tab TID GTB Last administered on 21:00; Admin Dose 1 TAB; Start 05/06/17 at 21:00 Clopidogrel Bisulfate (plaVIX) 75 mg DAILY GTB Last administered on 05/17/17 10:40; Admin Dose 75 MG; Start 05/07/17 at 09:00; Status Future Hold Donepezil HCl (Aricept) 10 mg QHS GTB Last administered on 05/19/17 21:00; Admin Dose 10 MG; Start 05/06/17 at 21:00 Ferrous Sulfate (Ferrous Sulfate (Ec)) 325 mg BID PO Last administered on 21:00; Admin Dose 325 MG; Start 05/06/17 at 21:00 Folic Acid (Folic Acid) 1 mg DAILY GTB Last administered on 05/19/17 09:21; Admin Dose 1 MG; Start 05/07/17 at 09:00 Lactobacillus Acidophilus/ Rhamnosus (Culturelle) 1 cap QHS GTB Last administered on 05/19/17 21:00; Admin Dose 1 CAP; Start 05/06/17 at 21:00 Magnesium Hydroxide (Milk Of Mag) 30 ml Q24H GTB Last administered on 18:00; Admin Dose 30 ML; Start 05/06/17 at 17:00 Memantine (Namenda) 5 mg QAM GTB Last administered on 05/19/17 09:53; Admin Dose 5 MG; Start 05/07/17 at 09:00 Metoprolol Tartrate (Lopressor) 25 mg Q12H GTB Last administered on 05/18/17 16:47; Admin Dose 25 MG; Start 05/06/17 at 17:00; Status Future Hold Multivit/Ca Carb/ B Cmplx/FA/Prenat (Radhika-John) 1 tab DAILY GTB Last administered on 05/20/17 09:59; Admin Dose 1 TAB; Start 05/07/17 at 09:00 Pramipexole (Mirapex) 0.5 mg DAILY GTB Last administered on 05/19/17 09:21; Admin Dose 0.5 MG; Start 05/07/17 at 09:00 Sodium Biphosphate/ Sodium Phosphate (Fleet Enema Pediatric) 118 ml Q72H PRN [place] CONSTIPATION; Start 05/06/17 at 17:00 Citric Acid/ Sodium Citrate (Bicitra) 30 ml BID PO Last administered on 09:59; Admin Dose 30 ML; Start 05/06/17 at 21:00 Heparin Sodium (Porcine) (Heparin (5000 Units/0.5 ml)) 5,000 unit BID SC Last administered on 05/15/17 20:54; Admin Dose 5,000 UNIT; Start 05/06/17 at 21:00 ; Status Future Hold Nystatin (Nystatin Powder) 1 applic BID TOP Last administered on 05/20/17 21: 57; Admin Dose 1 APPLIC; Start 05/09/17 at 21:00 Collagenase (Santyl) 1 applic DAILY TOP Last administered on 05/20/17 09:00; Admin Dose 1 APPLIC; Start 05/09/17 at 15:00 Collagenase 1 applic 1 applic PRN PRN TOP WOUND CARE; Start 05/09/17 at 14:00 Norepinephrine 16 mg/Dextrose 500 ml @ 1.87 mls/hr TITRATE IV ; Start 05/10/17 at 14:00 Dopamine HCl/ Dextrose 250 ml @ 6.848 mls/ hr TITRATE IV Last administered on 05/20/17 22:35; Admin Dose 10.271 MLS/HR; Start 05/10/17 at 18:30 Miscellaneous Information 1 ea NOTE XX ; Start 05/11/17 at 08:00 Glucose (Glutose) 15 gm Q15M PRN PO DECREASED GLUCOSE; Start 05/11/17 at 08:00 Glucose (Glutose) 22.5 gm Q15M PRN PO DECREASED GLUCOSE; Start 05/11/17 at 08: 00 Dextrose (D50w Syringe) 25 ml Q15M PRN IV DECREASED GLUCOSE Last administered on 05/21/17 05:52; Admin Dose 25 ML; Start 05/11/17 at 08:00 Dextrose (D50w Syringe) 50 ml Q15M PRN IV DECREASED GLUCOSE Last administered on 05/15/17 00:11; Admin Dose 50 ML; Start 05/11/17 at 08:00 Glucagon (Glucagen) 1 mg Q15M PRN IM DECREASED GLUCOSE; Start 05/11/17 at 08:00 Glucose (Glutose) 15 gm Q15M PRN BUCCAL DECREASED GLUCOSE; Start 05/11/17 at 08 :00 Epoetin Vasyl (Epogen (Esrd)) 10,000 units MoWeFr@17 [place] Last administered on 17:41; Admin Dose 10,000 UNITS; Start 05/13/17 at 17:00 IV Flush (NS 10 ml) 10 ml PRN PRN IV IV PROTOCOL; Start 05/15/17 at 17:30 Pantoprazole 40 mg 40 mg BID@06,18 IV Last administered on 05/21/17 05:43; Admin Dose 40 MG; Start 05/16/17 at 10:00 Trimethoprim/ Sulfamethoxazole/ Dextrose (Bactrim/D5W) 260 ml @ 173.333 mls/hr Q8 IVPB Last administered on 05/21/17 06:21; Admin Dose 173.333 MLS/HR; Start 05/19/17 at 21:00 Amikacin Sulfate AMIKACIN PER PHARMACY NOTE XX ; Start 05/19/17 at 18:00 Cefepime HCl/ Sodium Chloride (Maxipime/NS) 100 ml @ 100 mls/hr Q24H IVPB Last administered on 05/20/17 20:21; Admin Dose 100 MLS/HR; Start 05/19/17 at 20:00 Insulin Aspart (Novolog Insulin Pen) NOVOLOG *MILD* ALGORI... Q6 SC ; Start at 00:00 Midodrine 5 mg 5 mg TID@,, GTB ; Start 05/20/17 at 09:00 Amikacin Sulfate/ Sodium Chloride (Amikacin/NS) 101.4 ml @ 102 mls/hr Q72H IVPB ; Start 05/22/17 at 20:00 OSMAR MONTAGUE DO May 21, 2017 07:29
--- NOTE | 2017-05-21 07:41 | CONS ---
Date/Time of Note Date/Time of Note DATE: 05/21/17 TIME: 07:39 Assessment/Plan Assessment/Plan Additional Assessment/Plan Ventilator setting; AC of 12, tidal volume 500, PEEP of 0, 30% FiO2. Patient currently on dopamine drip at 3.5 mics per kilogram per minute. Assessment and recommendations; 1. Patient admitted with abdominal wall cellulitis with a history of chronic respiratory failure due to advanced dementia. 2. Renal insufficiency. 3. Anemia. Continue current treatment. Prognosis is very poor. Consultation Date/Type/Reason Admit Date/Time May 06, 2017 at 16:34 Initial Consult Date 05/10/17 Type of Consultation: Pulmonary/critical care 24 HR Interval Summary Free Text/Dictation Patient condition remains critical. Remains unresponsive. Has remained hemodynamically unstable requiring low-dose dopamine. General exam; elderly woman, on ventilator via tracheostomy, unresponsive, currently in no distress. Exam/Review of Systems Vital Signs Vitals Vital Signs Date Time Temp Pulse Resp B/P Pulse Ox O2 Delivery O2 Flow Rate FiO2 05/21/17 07:30 97.6 79 14 111/49 95 Mechanical Ventilator 05/21/17 05:02 30 Intake and Output 05/20/17 05/20/17 05/21/17 14:59 22:59 06:59 Intake Total 669.541 ml 407.932 ml 447.650 ml Output Total 415 ml 395 ml 385 ml Balance 254.541 ml 12.932 ml 62.650 ml Exam HEENT exam; supple neck, no JVD. No lymphadenopathy. Midline trachea. No thyromegaly. Tracheostomy in place. Patient has a multiple carious teeth. Chest exam; diminished but clear breath sound. S1-S2 audible, no murmurs. Regular rhythm. Abdomen exam; soft, G-tube in place. No organomegaly. Bowel sounds audible. Extremity exam; trace peripheral edema. CARPENTER GENERAL exam; patient is unresponsive. Results Result Diagram: 05/21/17 0425 05/21/17 0425 Results 24 hrs Laboratory Tests Test 05/20/17 12:31 05/20/17 18:02 05/20/17 23:44 05/21/17 04:25 Bedside Glucose 80 74 88 White Blood Count 5.0 Red Blood Count 3.43 L Hemoglobin 10.1 L Hematocrit 31.4 L Mean Corpuscular Volume 91.5 Mean Corpuscular Hemoglobin 29.4 Mean Corpuscular Hemoglobin Concent 32.2 Red Cell Distribution Width 17.0 H Platelet Count 192 Mean Platelet Volume 11.0 H Neutrophils % Lymphocytes % Monocytes % Nucleated Red Blood Cells % 0.0 Neutrophils # Lymphocytes # Monocytes # Sodium Level 143 Potassium Level 3.6 Chloride Level 107 Carbon Dioxide Level 23 Anion Gap 17 H Blood Urea Nitrogen 34 H Creatinine 1.92 H Glucose Level 91 Calcium Level 8.6 Phosphorus Level 4.3 Magnesium Level 2.2 Test 05/21/17 05:46 05/21/17 06:14 05/21/17 06:32 Bedside Glucose 59 L 100 98 Medications Medications Current Medications Atorvastatin Calcium (Lipitor) 10 mg QHS GTB Last administered on 05/19/17 21: 00; Admin Dose 10 MG; Start 05/06/17 at 21:00 Bisacodyl (Dulcolax Supp) 10 mg Q48H [place] Last administered on 05/18/17 16:45; Admin Dose 10 MG; Start 05/06/17 at 17:00 Carbidopa/Levodopa (Sinemet (25/ 100)) 1 tab TID GTB Last administered on 21:00; Admin Dose 1 TAB; Start 05/06/17 at 21:00 Clopidogrel Bisulfate (plaVIX) 75 mg DAILY GTB Last administered on 05/17/17 10:40; Admin Dose 75 MG; Start 05/07/17 at 09:00; Status Future Hold Donepezil HCl (Aricept) 10 mg QHS GTB Last administered on 05/19/17 21:00; Admin Dose 10 MG; Start 05/06/17 at 21:00 Ferrous Sulfate (Ferrous Sulfate (Ec)) 325 mg BID PO Last administered on 21:00; Admin Dose 325 MG; Start 05/06/17 at 21:00 Folic Acid (Folic Acid) 1 mg DAILY GTB Last administered on 05/19/17 09:21; Admin Dose 1 MG; Start 05/07/17 at 09:00 Lactobacillus Acidophilus/ Rhamnosus (Culturelle) 1 cap QHS GTB Last administered on 05/19/17 21:00; Admin Dose 1 CAP; Start 05/06/17 at 21:00 Magnesium Hydroxide (Milk Of Mag) 30 ml Q24H GTB Last administered on 18:00; Admin Dose 30 ML; Start 05/06/17 at 17:00 Memantine (Namenda) 5 mg QAM GTB Last administered on 05/19/17 09:53; Admin Dose 5 MG; Start 05/07/17 at 09:00 Metoprolol Tartrate (Lopressor) 25 mg Q12H GTB Last administered on 05/18/17 16:47; Admin Dose 25 MG; Start 05/06/17 at 17:00; Status Future Hold Multivit/Ca Carb/ B Cmplx/FA/Prenat (Radhika-John) 1 tab DAILY GTB Last administered on 05/20/17 09:59; Admin Dose 1 TAB; Start 05/07/17 at 09:00 Pramipexole (Mirapex) 0.5 mg DAILY GTB Last administered on 05/19/17 09:21; Admin Dose 0.5 MG; Start 05/07/17 at 09:00 Sodium Biphosphate/ Sodium Phosphate (Fleet Enema Pediatric) 118 ml Q72H PRN [place] CONSTIPATION; Start 05/06/17 at 17:00 Citric Acid/ Sodium Citrate (Bicitra) 30 ml BID PO Last administered on 09:59; Admin Dose 30 ML; Start 05/06/17 at 21:00 Heparin Sodium (Porcine) (Heparin (5000 Units/0.5 ml)) 5,000 unit BID SC Last administered on 05/15/17 20:54; Admin Dose 5,000 UNIT; Start 05/06/17 at 21:00 ; Status Future Hold Nystatin (Nystatin Powder) 1 applic BID TOP Last administered on 05/20/17 21: 57; Admin Dose 1 APPLIC; Start 05/09/17 at 21:00 Collagenase (Santyl) 1 applic DAILY TOP Last administered on 05/20/17 09:00; Admin Dose 1 APPLIC; Start 05/09/17 at 15:00 Collagenase 1 applic 1 applic PRN PRN TOP WOUND CARE; Start 05/09/17 at 14:00 Norepinephrine 16 mg/Dextrose 500 ml @ 1.87 mls/hr TITRATE IV ; Start 05/10/17 at 14:00 Dopamine HCl/ Dextrose 250 ml @ 6.848 mls/ hr TITRATE IV Last administered on 05/20/17 22:35; Admin Dose 10.271 MLS/HR; Start 05/10/17 at 18:30 Miscellaneous Information 1 ea NOTE XX ; Start 05/11/17 at 08:00 Glucose (Glutose) 15 gm Q15M PRN PO DECREASED GLUCOSE; Start 05/11/17 at 08:00 Glucose (Glutose) 22.5 gm Q15M PRN PO DECREASED GLUCOSE; Start 05/11/17 at 08: 00 Dextrose (D50w Syringe) 25 ml Q15M PRN IV DECREASED GLUCOSE Last administered on 05/21/17 05:52; Admin Dose 25 ML; Start 05/11/17 at 08:00 Dextrose (D50w Syringe) 50 ml Q15M PRN IV DECREASED GLUCOSE Last administered on 05/15/17 00:11; Admin Dose 50 ML; Start 05/11/17 at 08:00 Glucagon (Glucagen) 1 mg Q15M PRN IM DECREASED GLUCOSE; Start 05/11/17 at 08:00 Glucose (Glutose) 15 gm Q15M PRN BUCCAL DECREASED GLUCOSE; Start 05/11/17 at 08 :00 Epoetin Vasyl (Epogen (Esrd)) 10,000 units MoWeFr@17 [place] Last administered on 17:41; Admin Dose 10,000 UNITS; Start 05/13/17 at 17:00 IV Flush (NS 10 ml) 10 ml PRN PRN IV IV PROTOCOL; Start 05/15/17 at 17:30 Pantoprazole 40 mg 40 mg BID@06,18 IV Last administered on 05/21/17 05:43; Admin Dose 40 MG; Start 05/16/17 at 10:00 Trimethoprim/ Sulfamethoxazole/ Dextrose (Bactrim/D5W) 260 ml @ 173.333 mls/hr Q8 IVPB Last administered on 05/21/17 06:21; Admin Dose 173.333 MLS/HR; Start 05/19/17 at 21:00 Amikacin Sulfate AMIKACIN PER PHARMACY NOTE XX ; Start 05/19/17 at 18:00 Cefepime HCl/ Sodium Chloride (Maxipime/NS) 100 ml @ 100 mls/hr Q24H IVPB Last administered on 05/20/17 20:21; Admin Dose 100 MLS/HR; Start 05/19/17 at 20:00 Insulin Aspart (Novolog Insulin Pen) NOVOLOG *MILD* ALGORI... Q6 SC ; Start at 00:00 Midodrine 5 mg 5 mg TID@,, GTB ; Start 05/20/17 at 09:00 Amikacin Sulfate/ Sodium Chloride (Amikacin/NS) 101.4 ml @ 102 mls/hr Q72H IVPB ; Start 05/22/17 at 20:00 SMITH RUIZ May 21, 2017 07:41
[2017-05-21] MEDS: CITRIC ACID/NA CITRATE 30 ML CUP PO SCH ×2 (08:47→21:00)
[2017-05-21] MEDS: FERROUS SULFATE (EC) 325 MG TAB PO SCH ×2 (08:48→21:00)
[2017-05-21] MEDS: MEMANTINE 5 MG TAB GTB SCH (08:48)
[2017-05-21] MEDS: NYSTATIN 30 GM POWDER BTL TOP SCH ×2 (08:48→21:43)
[2017-05-21] MEDS: CARBIDOPA/LEVODOPA (25/100) TAB GTB SCH ×3 (08:48→21:00)
[2017-05-21] MEDS: MULTIVIT/CA CARB/B CMPLX/FA TAB GTB SCH (08:48)
[2017-05-21] MEDS: MIDODRINE 5 MG TAB GTB SCH ×3 (08:48→17:46)
[2017-05-21] MEDS: FOLIC ACID 1 MG TAB GTB SCH (08:48)
[2017-05-21] MEDS: PRAMIPEXOLE 0.25 MG TAB GTB SCH (08:48)
[2017-05-21] MEDS: COLLAGENASE 30 GM TUBE TOP SCH (08:50)
[2017-05-21] MEDS: DEXTROSE 5%-0.45% NACL 1,000 ML IV SCH (09:48)
[2017-05-21] MEDS: COLISTIMETHATE (25 MG/ML INHAL SYG) NEB SCH ×2 (10:32→19:33)
--- NOTE | 2017-05-21 11:20 | CONS ---
Date/Time of Note Date/Time of Note DATE: 05/21/17 TIME: 11:19 Assessment/Plan Assessment/Plan Chief Complaint/Hosp Course This 69-year-old female with a history of CVA vent dependent respiratory failure , was brought to the emergency room for the dislodgment of the GJ tube. Patient is nonverbal and no information can be obtained. No GI bleeding no chest pain no shortness of breath. Problems: Additional Assessment/Plan Additional Assessment/Plan Additional Assessment/Plan 1. Dislodged of the GJ tube accidentally 2. Vent dependent respiratory failure 3. Chronic encephalopathy 4. Renal failure 5. Peripheral vascular disease 6. Anemia Plan GJ tube, could not be done. GI lab did not have GJ tube. Hospital did not have GJ tube I will bring it from other facility. Case discussed with Dr. Blackburn and told him to proceed with jejunostomy tube, [facility] does not have GJ tube and because of her anatomy it is technically difficult to prevent the leakage around G-tube site Jejunostomy tube as per surgeon. Awaiting for the blood pressure to be stabilized before surgery Resume feeding through the jejunostomy port connect gastrostomy port to gravity. Patient is tolerating feeding through the jejunostomy port Discussed with Dr. Blackburn for the placement of jejunostomy tube and closure of the G-tube site. Son wants everything to be done if surgery cannot be done then may place another GJ tube Consultation Date/Type/Reason Admit Date/Time May 06, 2017 at 16:34 Type of Consultation: Pulmonary/critical care 24 HR Interval Summary Subjective hx not possible: pt non-verbal Exam/Review of Systems Vital Signs Vitals Vital Signs Date Time Temp Pulse Resp B/P Pulse Ox O2 Delivery O2 Flow Rate FiO2 05/21/17 10:45 78 12 117/43 97 05/21/17 08:30 Mechanical Ventilator 05/21/17 08:00 30 05/21/17 07:30 97.6 Intake and Output 05/20/17 05/20/17 05/21/17 15:00 23:00 07:00 Intake Total 629.812 ml 581.265 ml 264.046 ml Output Total 435 ml 375 ml 345 ml Balance 194.812 ml 206.265 ml -80.954 ml Exam Constitutional: alert, oriented, well developed Psych: nl mood/affect, no complaints Head: atraumatic, normocephalic Eyes: EOMI, PERRL, nl conjunctiva, nl lids, nl sclera ENMT: nl external ears & nose, nl lips & teeth, nl nasal mucosa & septum Neck: non-tender, supple Respiratory: clear to auscultation, normal air movement Cardiovascular: nl pulses, regular rate and rhythm Gastrointestinal: nl liver, spleen, non-tender, soft Musculoskeletal: nl extremities to inspection, nl gait and stance Extremities: normal pulses Neurological: [employer] II-XII intact, nl mental status, nl speech, nl strength Skin: nl turgor, No rash or lesions Lymph: nl lymph nodes Results Result Diagram: 05/21/17 0425 05/21/175 Results 24 hrs Laboratory Tests Test 05/20/17 12:31 05/20/17 18:02 05/20/17 23:44 05/21/17 04:25 Bedside Glucose 80 74 88 White Blood Count 5.0 Red Blood Count 3.43 L Hemoglobin 10.1 L Hematocrit 31.4 L Mean Corpuscular Volume 91.5 Mean Corpuscular Hemoglobin 29.4 Mean Corpuscular Hemoglobin Concent 32.2 Red Cell Distribution Width 17.0 H Platelet Count 192 Mean Platelet Volume 11.0 H Neutrophils % Lymphocytes % Monocytes % Nucleated Red Blood Cells % 0.0 Neutrophils # Lymphocytes # Monocytes # Sodium Level 143 Potassium Level 3.6 Chloride Level 107 Carbon Dioxide Level 23 Anion Gap 17 H Blood Urea Nitrogen 34 H Creatinine 1.92 H Glucose Level 91 Calcium Level 8.6 Phosphorus Level 4.3 Magnesium Level 2.2 Test 05/21/17 05:46 05/21/17 06:14 05/21/17 06:32 Bedside Glucose 59 L 100 98 Medications Medications Current Medications Atorvastatin Calcium (Lipitor) 10 mg QHS GTB Last administered on 05/19/17 21: 00; Admin Dose 10 MG; Start 05/06/17 at 21:00 Bisacodyl (Dulcolax Supp) 10 mg Q48H [place] Last administered on 05/18/17 16:45; Admin Dose 10 MG; Start 05/06/17 at 17:00 Carbidopa/Levodopa (Sinemet (25/ 100)) 1 tab TID GTB Last administered on 08:48; Admin Dose 1 TAB; Start 05/06/17 at 21:00 Clopidogrel Bisulfate (plaVIX) 75 mg DAILY GTB Last administered on 05/17/17 10:40; Admin Dose 75 MG; Start 05/07/17 at 09:00; Status Future Hold Donepezil HCl (Aricept) 10 mg QHS GTB Last administered on 05/19/17 21:00; Admin Dose 10 MG; Start 05/06/17 at 21:00 Ferrous Sulfate (Ferrous Sulfate (Ec)) 325 mg BID PO Last administered on 08:48; Admin Dose 325 MG; Start 05/06/17 at 21:00 Folic Acid (Folic Acid) 1 mg DAILY GTB Last administered on 05/21/17 08:48; Admin Dose 1 MG; Start 05/07/17 at 09:00 Lactobacillus Acidophilus/ Rhamnosus (Culturelle) 1 cap QHS GTB Last administered on 05/19/17 21:00; Admin Dose 1 CAP; Start 05/06/17 at 21:00 Magnesium Hydroxide (Milk Of Mag) 30 ml Q24H GTB Last administered on 18:00; Admin Dose 30 ML; Start 05/06/17 at 17:00 Memantine (Namenda) 5 mg QAM GTB Last administered on 05/21/17 08:48; Admin Dose 5 MG; Start 05/07/17 at 09:00 Metoprolol Tartrate (Lopressor) 25 mg Q12H GTB Last administered on 05/18/17 16:47; Admin Dose 25 MG; Start 05/06/17 at 17:00; Status Future Hold Multivit/Ca Carb/ B Cmplx/FA/Prenat (Radhika-John) 1 tab DAILY GTB Last administered on 05/21/17 08:48; Admin Dose 1 TAB; Start 05/07/17 at 09:00 Pramipexole (Mirapex) 0.5 mg DAILY GTB Last administered on 05/21/17 08:48; Admin Dose 0.5 MG; Start 05/07/17 at 09:00 Sodium Biphosphate/ Sodium Phosphate (Fleet Enema Pediatric) 118 ml Q72H PRN [place] CONSTIPATION; Start 05/06/17 at 17:00 Citric Acid/ Sodium Citrate (Bicitra) 30 ml BID PO Last administered on 8/1/ 17at 08:47; Admin Dose 30 ML; Start 05/06/17 at 21:00 Heparin Sodium (Porcine) (Heparin (5000 Units/0.5 ml)) 5,000 unit BID SC Last administered on 05/15/17 20:54; Admin Dose 5,000 UNIT; Start 05/06/17 at 21:00 ; Status Future Hold Nystatin (Nystatin Powder) 1 applic BID TOP Last administered on 05/21/17 08:48 ; Admin Dose 1 APPLIC; Start 05/09/17 at 21:00 Collagenase (Santyl) 1 applic DAILY TOP Last administered on 05/21/17 08:50; Admin Dose 1 APPLIC; Start 05/09/17 at 15:00 Collagenase 1 applic 1 applic PRN PRN TOP WOUND CARE; Start 05/09/17 at 14:00 Norepinephrine 16 mg/Dextrose 500 ml @ 1.87 mls/hr TITRATE IV ; Start 05/10/17 at 14:00 Dopamine HCl/ Dextrose 250 ml @ 6.848 mls/ hr TITRATE IV Last administered on 05/20/17 22:35; Admin Dose 10.271 MLS/HR; Start 05/10/17 at 18:30 Miscellaneous Information 1 ea NOTE XX ; Start 05/11/17 at 08:00 Glucose (Glutose) 15 gm Q15M PRN PO DECREASED GLUCOSE; Start 05/11/17 at 08:00 Glucose (Glutose) 22.5 gm Q15M PRN PO DECREASED GLUCOSE; Start 05/11/17 at 08: 00 Dextrose (D50w Syringe) 25 ml Q15M PRN IV DECREASED GLUCOSE Last administered on 05/21/17 05:52; Admin Dose 25 ML; Start 05/11/17 at 08:00 Dextrose (D50w Syringe) 50 ml Q15M PRN IV DECREASED GLUCOSE Last administered on 05/15/17 00:11; Admin Dose 50 ML; Start 05/11/17 at 08:00 Glucagon (Glucagen) 1 mg Q15M PRN IM DECREASED GLUCOSE; Start 05/11/17 at 08:00 Glucose (Glutose) 15 gm Q15M PRN BUCCAL DECREASED GLUCOSE; Start 05/11/17 at 08 :00 Epoetin Vasyl (Epogen (Esrd)) 10,000 units MoWeFr@17 [place] Last administered on 7/ 31/17at 17:41; Admin Dose 10,000 UNITS; Start 05/13/17 at 17:00 IV Flush (NS 10 ml) 10 ml PRN PRN IV IV PROTOCOL; Start 05/15/17 at 17:30 Pantoprazole 40 mg 40 mg BID@06,18 IV Last administered on 05/21/17 05:43; Admin Dose 40 MG; Start 05/16/17 at 10:00 Trimethoprim/ Sulfamethoxazole/ Dextrose (Bactrim/D5W) 260 ml @ 173.333 mls/hr Q8 IVPB Last administered on 05/21/17 06:21; Admin Dose 173.333 MLS/HR; Start 05/19/17 at 21:00 Amikacin Sulfate AMIKACIN PER PHARMACY NOTE XX ; Start 05/19/17 at 18:00 Cefepime HCl/ Sodium Chloride (Maxipime/NS) 100 ml @ 100 mls/hr Q24H IVPB Last administered on 05/20/17 20:21; Admin Dose 100 MLS/HR; Start 05/19/17 at 20:00 Insulin Aspart (Novolog Insulin Pen) NOVOLOG *MILD* ALGORI... Q6 SC ; Start at 00:00 Midodrine 5 mg 5 mg TID@ GTB Last administered on 05/21/17 08:48; Admin Dose 5 MG; Start 05/20/17 at 09:00 Amikacin Sulfate 350 mg/Sodium Chloride 101.4 ml @ 102 mls/hr Q72H IVPB ; Start 05/22/17 at 20:00 Dextrose/Sodium Chloride (D5-1/2ns) 1,000 ml @ 50 mls/hr Q20H IV Last administered on 05/21/17 09:48; Admin Dose 50 MLS/HR; Start 05/21/17 at 10:00 SYLWIA SY MD May 21, 2017 11:20
--- NOTE | 2017-05-21 13:24 | PN ---
Date/Time of Note Date/Time of Note DATE: 05/21/17 TIME: 13:23 Assessment/Plan VTE Prophylaxis VTE Prophylaxis Intervention: other Lines/Catheters IV Catheter Type (from Nrs): PICC Line Central line still needed: Yes Urinary Cath still in place: Yes Reason Cath still needed: other (indicate) Assessment/Plan Chief Complaint/Hosp Course 1. hypoxemic resp failure: s/p trach 2. Pafib; currently in NSR 3. hx HTN: now in shock and hypotensive. : STILL requires DOPAMINE DRIP 4. encephalopathy 5. renal failure: f/u with nephrology 6. dysphagia 7. G tube malfunction/ infection 8. GI bleed 9. severe anemia will cont dopamine drip and titrate off cont resp care nutritional support. CONT ICU care as long as pt is on pressors correct lytes prn f/u renal fx. transfusions prn . olff of PLAVIX DUE TO ANEMIA/ BLEEDING awaiting GI or surgery for PEG replacement THANK YOU. Problems: Subjective 24 Hr Interval Summary Free Text/Dictation CARDIOLOGY FOLLOW UP NOTE: Discussed with staff and rhythm was reviewed pt remains in NSR. NO AFIB seen NONVERBAL. pt is still ICU on low dose dopamine drip and unable to wean off so far. OBJECTIVE: General: no acute distress HEENT: NC/AT. NECK: NO JVD. no stridor. S/P trach on vent CV: RRR. systolic murmur; no gallop or rubs. PULM: no wheezing anteriorly GI: SOFT, NT, ND, no rebound or guarding s/p PEG Extremity: + B/L LE edema. no clubbing. neuro: opens her eyes to painful stimuli. does not follow commands Psych: calm rectal: deferred Exam/Review of Systems Vital Signs Vitals Vital Signs Date Time Temp Pulse Resp B/P Pulse Ox O2 Delivery O2 Flow Rate FiO2 05/21/17 10:45 78 12 117/43 97 05/21/17 08:30 Mechanical Ventilator 05/21/17 08:00 30 05/21/17 07:30 97.6 Intake and Output 05/20/17 05/20/17 05/21/17 15:00 23:00 07:00 Intake Total 629.812 ml 581.265 ml 264.046 ml Output Total 435 ml 375 ml 345 ml Balance 194.812 ml 206.265 ml -80.954 ml Results Result Diagram: 05/21/17 0425 05/21/17 0425 Results 24 hrs Laboratory Tests Test 05/20/17 18:02 05/20/17 23:44 05/21/17 04:25 05/21/17 05:46 Bedside Glucose 74 88 59 L White Blood Count 5.0 Red Blood Count 3.43 L Hemoglobin 10.1 L Hematocrit 31.4 L Mean Corpuscular Volume 91.5 Mean Corpuscular Hemoglobin 29.4 Mean Corpuscular Hemoglobin Concent 32.2 Red Cell Distribution Width 17.0 H Platelet Count 192 Mean Platelet Volume 11.0 H Neutrophils % Lymphocytes % Monocytes % Nucleated Red Blood Cells % 0.0 Neutrophils # Lymphocytes # Monocytes # Sodium Level 143 Potassium Level 3.6 Chloride Level 107 Carbon Dioxide Level 23 Anion Gap 17 H Blood Urea Nitrogen 34 H Creatinine 1.92 H Glucose Level 91 Calcium Level 8.6 Phosphorus Level 4.3 Magnesium Level 2.2 Test 05/21/17 06:14 05/21/17 06:32 05/21/17 11:38 Bedside Glucose 100 98 68 L Medications Medications Current Medications Atorvastatin Calcium (Lipitor) 10 mg QHS GTB Last administered on 05/19/17 21: 00; Admin Dose 10 MG; Start 05/06/17 at 21:00 Bisacodyl (Dulcolax Supp) 10 mg Q48H ID Last administered on 05/18/17 16:45; Admin Dose 10 MG; Start 05/06/17 at 17:00 Carbidopa/Levodopa (Sinemet (25/ 100)) 1 tab TID GTB Last administered on 08:48; Admin Dose 1 TAB; Start 05/06/17 at 21:00 Clopidogrel Bisulfate (plaVIX) 75 mg DAILY GTB Last administered on 05/17/17 10:40; Admin Dose 75 MG; Start 05/07/17 at 09:00; Status Future Hold Donepezil HCl (Aricept) 10 mg QHS GTB Last administered on 05/19/17 21:00; Admin Dose 10 MG; Start 05/06/17 at 21:00 Ferrous Sulfate (Ferrous Sulfate (Ec)) 325 mg BID PO Last administered on 08:48; Admin Dose 325 MG; Start 05/06/17 at 21:00 Folic Acid (Folic Acid) 1 mg DAILY GTB Last administered on 05/21/17 08:48; Admin Dose 1 MG; Start 05/07/17 at 09:00 Lactobacillus Acidophilus/ Rhamnosus (Culturelle) 1 cap QHS GTB Last administered on 05/19/17 21:00; Admin Dose 1 CAP; Start 05/06/17 at 21:00 Magnesium Hydroxide (Milk Of Mag) 30 ml Q24H GTB Last administered on 18:00; Admin Dose 30 ML; Start 05/06/17 at 17:00 Memantine (Namenda) 5 mg QAM GTB Last administered on 05/21/17 08:48; Admin Dose 5 MG; Start 05/07/17 at 09:00 Metoprolol Tartrate (Lopressor) 25 mg Q12H GTB Last administered on 05/18/17 16:47; Admin Dose 25 MG; Start 05/06/17 at 17:00; Status Future Hold Multivit/Ca Carb/ B Cmplx/FA/Prenat (Radhika-John) 1 tab DAILY GTB Last administered on 05/21/17 08:48; Admin Dose 1 TAB; Start 05/07/17 at 09:00 Pramipexole (Mirapex) 0.5 mg DAILY GTB Last administered on 05/21/17 08:48; Admin Dose 0.5 MG; Start 05/07/17 at 09:00 Sodium Biphosphate/ Sodium Phosphate (Fleet Enema Pediatric) 118 ml Q72H PRN ID CONSTIPATION; Start 05/06/17 at 17:00 Citric Acid/ Sodium Citrate (Bicitra) 30 ml BID PO Last administered on 08:47; Admin Dose 30 ML; Start 05/06/17 at 21:00 Heparin Sodium (Porcine) (Heparin (5000 Units/0.5 ml)) 5,000 unit BID SC Last administered on 05/15/17 20:54; Admin Dose 5,000 UNIT; Start 05/06/17 at 21:00 ; Status Future Hold Nystatin (Nystatin Powder) 1 applic BID TOP Last administered on 05/21/17 08:48 ; Admin Dose 1 APPLIC; Start 05/09/17 at 21:00 Collagenase (Santyl) 1 applic DAILY TOP Last administered on 05/21/17 08:50; Admin Dose 1 APPLIC; Start 05/09/17 at 15:00 Collagenase 1 applic 1 applic PRN PRN TOP WOUND CARE; Start 05/09/17 at 14:00 Norepinephrine 16 mg/Dextrose 500 ml @ 1.87 mls/hr TITRATE IV ; Start 05/10/17 at 14:00 Dopamine HCl/ Dextrose 250 ml @ 6.848 mls/ hr TITRATE IV Last administered on 05/20/17 22:35; Admin Dose 10.271 MLS/HR; Start 05/10/17 at 18:30 Miscellaneous Information 1 ea NOTE XX ; Start 05/11/17 at 08:00 Glucose (Glutose) 15 gm Q15M PRN PO DECREASED GLUCOSE; Start 05/11/17 at 08:00 Glucose (Glutose) 22.5 gm Q15M PRN PO DECREASED GLUCOSE; Start 05/11/17 at 08: 00 Dextrose (D50w Syringe) 25 ml Q15M PRN IV DECREASED GLUCOSE Last administered on 05/21/17 11:44; Admin Dose 25 ML; Start 05/11/17 at 08:00 Dextrose (D50w Syringe) 50 ml Q15M PRN IV DECREASED GLUCOSE Last administered on 05/15/17 00:11; Admin Dose 50 ML; Start 05/11/17 at 08:00 Glucagon (Glucagen) 1 mg Q15M PRN IM DECREASED GLUCOSE; Start 05/11/17 at 08:00 Glucose (Glutose) 15 gm Q15M PRN BUCCAL DECREASED GLUCOSE; Start 05/11/17 at 08 :00 Epoetin Vasyl (Epogen (Esrd)) 10,000 units MoWeFr@17 SC Last administered on 17:41; Admin Dose 10,000 UNITS; Start 05/13/17 at 17:00 IV Flush (NS 10 ml) 10 ml PRN PRN IV IV PROTOCOL; Start 05/15/17 at 17:30 Pantoprazole 40 mg 40 mg BID@06,18 IV Last administered on 05/21/17 05:43; Admin Dose 40 MG; Start 05/16/17 at 10:00 Trimethoprim/ Sulfamethoxazole/ Dextrose (Bactrim/D5W) 260 ml @ 173.333 mls/hr Q8 IVPB Last administered on 05/21/17 06:21; Admin Dose 173.333 MLS/HR; Start 05/19/17 at 21:00 Amikacin Sulfate AMIKACIN PER PHARMACY NOTE XX ; Start 05/19/17 at 18:00 Cefepime HCl/ Sodium Chloride (Maxipime/NS) 100 ml @ 100 mls/hr Q24H IVPB Last administered on 05/20/17 20:21; Admin Dose 100 MLS/HR; Start 05/19/17 at 20:00 Insulin Aspart (Novolog Insulin Pen) NOVOLOG *MILD* ALGORI... Q6 SC ; Start at 00:00 Midodrine 5 mg 5 mg TID@,, GTB Last administered on 05/21/17 08:48; Admin Dose 5 MG; Start 05/20/17 at 09:00 Amikacin Sulfate 350 mg/Sodium Chloride 101.4 ml @ 102 mls/hr Q72H IVPB ; Start 05/22/17 at 20:00 Dextrose/Sodium Chloride (D5-1/2ns) 1,000 ml @ 50 mls/hr Q20H IV Last administered on 05/21/17 09:48; Admin Dose 50 MLS/HR; Start 05/21/17 at 10:00 Miscellaneous Information (*Rx Drug Level Order Reminder*) VANCO RANDOM LEVEL... ONCE ONCE XX ; Start 05/22/17 at 05:00; Stop 05/22/17 at 05:01 MILAGROS MUONZ MD May 21, 2017 13:24
--- NOTE | 2017-05-21 15:33 | PN ---
Date/Time of Note Date/Time of Note DATE: 05/21/17 TIME: 15:12 Assessment/Plan Lines/Catheters IV Catheter Type (from Nrs): PICC Line Collazo in Place (from Nrs): Yes Assessment/Plan Chief Complaint/Hosp Course 1. G-tube dislodgement: replaced with gjtube by GI, large amount of bilious drainage peristomal; Replacement of jtube today by Dr. Degroot -?hospice/palliative -possible surgical placement of jtube when medically stable 2. Septic shock: multifactorial: 2/2: pneumonia + cellulitis + wounds; continues on pressors -abx -supportive 3. Respiratory failure with trach: PNA wtih pulm edema; comfortable on vent -pulmonary toilet -abx -supportive 4.STARLA with CKD; +urine output; cr stable -judicious fluids -renally dose meds -per nephrology 5. Leukopenia:2/ #2, normalized 4. Hypernatremia: normalized -judicious fluid management 5. Normocytic anemia: previous coffee ground drainage peristoma; s/p prbc transfusion; stable -monitor and transfuse as needed -continue Epogen 6. Hypokalemia: normalized 7. CHF 8. Diabetes: labile; with episode of hypoglycemia today -medical management 9. Acute encephalopathy with history of advanced dementia. -supportive 10. Coronary artery disease. 11. Decubitus wound. Continue wound care. 12. r/o scabies: treated prophylactically 13. Thrombocytopenia 14. Peristomal cellulitis 2/2 #1; +pseudomonas -local care -abx per sensitivity 15. Pancytopenia: improving 16. Hypocalcemia: normalized 17. Hypomagnesemia: normalized Patient seen and examined in collaboration with Dr. Meliton Blackburn Problems: Subjective 24 Hr Interval Summary Hypoglycemia. continues on pressors. Mod amount of bilious drainage leaking peristoma. Appears comfortable on vent. Non-verbal indicators of pain not present. No cough, sob, fevers, n/v/d. Exam/Review of Systems Vital Signs Vitals Vital Signs Date Time Temp Pulse Resp B/P Pulse Ox O2 Delivery O2 Flow Rate FiO2 05/21/17 14:30 80 12 122/52 91 05/21/17 12:00 97.5 05/21/17 08:30 Mechanical Ventilator 05/21/17 08:00 30 Intake and Output 05/20/17 05/20/17 05/21/17 15:00 23:00 07:00 Intake Total 629.812 ml 581.265 ml 264.046 ml Output Total 435 ml 375 ml 345 ml Balance 194.812 ml 206.265 ml -80.954 ml Exam Free Text/Dictation Constitutional: alert, non-verbal, No oriented Psych: confusion Head: atraumatic, normocephalic Eyes: PERRL, nl sclera ENMT: mucosa pink and moist Neck: non-tender, other (trach), supple Respiratory: diminished Cardiovascular: edema Gastrointestinal: distended (mod), other (improved peristomal leak but still continuing to leak bilious drainage: bilious drainage from g port to drainage bag tube pulled out part-way out), soft, nontender Musculoskeletal: No muscle tone Extremities: edema Neurological: No nl mental status, No nl speech Skin: other (abdominal/peristomal/breast fold redness, moisture damage/ cellulitis; ) Results Result Diagram: 05/21/17 0425 05/21/17 0425 SHADI CALDERON NP May 21, 2017 15:23
[2017-05-21] MEDS: MAGNESIUM HYDROXIDE 30ML CUP GTB SCH (17:41)
--- NOTE | 2017-05-21 18:36 | CONS ---
Date/Time of Note Date/Time of Note DATE: 05/21/17 TIME: 18:34 Assessment/Plan Assessment/Plan Chief Complaint/Hosp Course ID PROGRESS NOTE TOTAL ABX DAY # 12 => Colistin INH #6 +Cefepime #3 + Amikacin #3 + Bactrim IV # 3(Stenotrophomonas) Merrem#10 => DC 7/30 Vanco IV #10 => DC 7/30 24H INTERVAL SUMMARY * Clinically status quo -- pressors, obtunded => MICRO ABD RESULTED PSAR MDRO * REPEAT ABD WOUND CX: OUND CULTURE Final Organism 1 PSEUDOMONAS AERUGINOSA QUANTITY 2+ P.AERUG M.I.C. RX --------- --- AMIKACIN <=2 S AZTREONAM R CEFEPIME 8 S CEFTAZIDIME 16 I CIPROFLOXACIN >=4 R GENTAMICIN >=16 R IMIPENEM >=16 R LEVOFLOXACIN >=8 R TOBRAMYCIN 8 I PIPERACILLIN/TAZOBACTAM R * 05/14/17 SPUTUM: RESPIRATORY CULTURE FINAL P.AERUG STENMAL M.I.C. RX M.I.C. RX --------- --- --------- --- AMIKACIN <=2 S AZTREONAM R CEFEPIME 16 I CEFTAZIDIME 16 I CIPROFLOXACIN >=4 R GENTAMICIN 2 S IMIPENEM >=16 R LEVOFLOXACIN >=8 R >=8 R TOBRAMYCIN <=1 S TRIMETHOPRIM/SULFAMETHOXAZOLE 0.047 S PIPERACILLIN/TAZOBACTAM R PHYSICAL EXAMINATION: GENERAL: VSS,NAD, no fevers == Obese, eyes open HEENT: NGT->Secure / ETT secure NECK: Supple, trach-> midline CHEST: Equal chest rise bilaterally, Vented HEART: Pulse RRR ABDOMEN: Soft -> see photos large EC fistula residual healing scar, cellulitis w/(+)drainage EXTREMITIES: Warm, no edema SKIN: Warm, dry ID ASSESSMENT: 86 yo F w/PMHx Obesity,Parkinson's dementia w/chronic encephalopathy admitted with: 1. Sepsis w/shock, hypothermia, leukocytosis, lactic acidosis => multifactorial as below * 05/07/17 BCx (-) 2. Acute on chronic respiratory failure w/Trach 3. HCAP => Tracheobronchitis * CT (+)Large right pleural effusion/small left effusion * Respiratory Cx 05/14: * Organism 1 PSEUDOMONAS AERUGINOSA QUANTITY 3+ Organism 2 STENOTROPHOMONAS MALTOPHILIA QUANTITY 3+ 4. 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 5. UTI as per urinalysis on admission => urine was not sent for culture 6. Multiple chronic decub ulcers 7. RASH on admission s/p empiric Elimite x1 w/(-)skin scraping for scabies 8. Acute kidney injury 9. Diabetes. 10. Acute on chronic anemia. 11. 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 ABX adjusted Day per MICRO results -> await clinical response, hopefully improvement 2. Watch renal fx on Bactrim IV + Aminoglycoside -> MDRO leave limited options, the only other option is to start Colistin. . . Problems: Consultation Date/Type/Reason Admit Date/Time May 06, 2017 at 16:34 Initial Consult Date 05/12/17 Type of Consultation: ID Exam/Review of Systems Vital Signs Vitals Vital Signs Date Time Temp Pulse Resp B/P Pulse Ox O2 Delivery O2 Flow Rate FiO2 05/21/17 16:48 81 12 98 30 05/21/17 15:30 88/49 05/21/17 12:00 97.5 05/21/17 08:30 Mechanical Ventilator Intake and Output 05/20/17 05/20/17 05/21/17 15:00 23:00 07:00 Intake Total 629.812 ml 581.265 ml 264.046 ml Output Total 435 ml 375 ml 345 ml Balance 194.812 ml 206.265 ml -80.954 ml Results Result Diagram: 05/21/17 0425 05/21/17 0425 Results 24 hrs Laboratory Tests Test 05/20/17 23:44 05/21/17 04:25 05/21/17 05:46 05/21/17 06:14 Bedside Glucose 88 59 L 100 White Blood Count 5.0 Red Blood Count 3.43 L Hemoglobin 10.1 L Hematocrit 31.4 L Mean Corpuscular Volume 91.5 Mean Corpuscular Hemoglobin 29.4 Mean Corpuscular Hemoglobin Concent 32.2 Red Cell Distribution Width 17.0 H Platelet Count 192 Mean Platelet Volume 11.0 H Neutrophils % Lymphocytes % Monocytes % Nucleated Red Blood Cells % 0.0 Neutrophils # Lymphocytes # Monocytes # Sodium Level 143 Potassium Level 3.6 Chloride Level 107 Carbon Dioxide Level 23 Anion Gap 17 H Blood Urea Nitrogen 34 H Creatinine 1.92 H Glucose Level 91 Calcium Level 8.6 Phosphorus Level 4.3 Magnesium Level 2.2 Test 05/21/17 06:32 05/21/17 11:38 05/21/17 14:28 05/21/17 17:37 Bedside Glucose 98 68 L 81 74 Medications Medications Current Medications Atorvastatin Calcium (Lipitor) 10 mg QHS GTB Last administered on 05/19/17 21: 00; Admin Dose 10 MG; Start 05/06/17 at 21:00 Bisacodyl (Dulcolax Supp) 10 mg Q48H OR Last administered on 05/18/17 16:45; Admin Dose 10 MG; Start 05/06/17 at 17:00 Carbidopa/Levodopa (Sinemet (25/ 100)) 1 tab TID GTB Last administered on 14:30; Admin Dose 1 TAB; Start 05/06/17 at 21:00 Clopidogrel Bisulfate (plaVIX) 75 mg DAILY GTB Last administered on 05/17/17 10:40; Admin Dose 75 MG; Start 05/07/17 at 09:00; Status Future Hold Donepezil HCl (Aricept) 10 mg QHS GTB Last administered on 05/19/17 21:00; Admin Dose 10 MG; Start 05/06/17 at 21:00 Ferrous Sulfate (Ferrous Sulfate (Ec)) 325 mg BID PO Last administered on 08:48; Admin Dose 325 MG; Start 05/06/17 at 21:00 Folic Acid (Folic Acid) 1 mg DAILY GTB Last administered on 05/21/17 08:48; Admin Dose 1 MG; Start 05/07/17 at 09:00 Lactobacillus Acidophilus/ Rhamnosus (Culturelle) 1 cap QHS GTB Last administered on 05/19/17 21:00; Admin Dose 1 CAP; Start 05/06/17 at 21:00 Magnesium Hydroxide (Milk Of Mag) 30 ml Q24H GTB Last administered on 05/21/17 17:41; Admin Dose 30 ML; Start 05/06/17 at 17:00 Memantine (Namenda) 5 mg QAM GTB Last administered on 05/21/17 08:48; Admin Dose 5 MG; Start 05/07/17 at 09:00 Metoprolol Tartrate (Lopressor) 25 mg Q12H GTB Last administered on 05/18/17 16:47; Admin Dose 25 MG; Start 05/06/17 at 17:00; Status Future Hold Multivit/Ca Carb/ B Cmplx/FA/Prenat (Radhika-John) 1 tab DAILY GTB Last administered on 05/21/17 08:48; Admin Dose 1 TAB; Start 05/07/17 at 09:00 Pramipexole (Mirapex) 0.5 mg DAILY GTB Last administered on 05/21/17 08:48; Admin Dose 0.5 MG; Start 05/07/17 at 09:00 Sodium Biphosphate/ Sodium Phosphate (Fleet Enema Pediatric) 118 ml Q72H PRN OR CONSTIPATION; Start 05/06/17 at 17:00 Citric Acid/ Sodium Citrate (Bicitra) 30 ml BID PO Last administered on 08:47; Admin Dose 30 ML; Start 05/06/17 at 21:00 Heparin Sodium (Porcine) (Heparin (5000 Units/0.5 ml)) 5,000 unit BID SC Last administered on 05/15/17 20:54; Admin Dose 5,000 UNIT; Start 05/06/17 at 21:00 ; Status Future Hold Nystatin (Nystatin Powder) 1 applic BID TOP Last administered on 05/21/17 08:48 ; Admin Dose 1 APPLIC; Start 05/09/17 at 21:00 Collagenase (Santyl) 1 applic DAILY TOP Last administered on 05/21/17 08:50; Admin Dose 1 APPLIC; Start 05/09/17 at 15:00 Collagenase 1 applic 1 applic PRN PRN TOP WOUND CARE; Start 05/09/17 at 14:00 Norepinephrine 16 mg/Dextrose 500 ml @ 1.87 mls/hr TITRATE IV ; Start 05/10/17 at 14:00 Dopamine HCl/ Dextrose 250 ml @ 6.848 mls/ hr TITRATE IV Last administered on 05/20/17 22:35; Admin Dose 10.271 MLS/HR; Start 05/10/17 at 18:30 Miscellaneous Information 1 ea NOTE XX ; Start 05/11/17 at 08:00 Glucose (Glutose) 15 gm Q15M PRN PO DECREASED GLUCOSE; Start 05/11/17 at 08:00 Glucose (Glutose) 22.5 gm Q15M PRN PO DECREASED GLUCOSE; Start 05/11/17 at 08: 00 Dextrose (D50w Syringe) 25 ml Q15M PRN IV DECREASED GLUCOSE Last administered on 05/21/17 11:44; Admin Dose 25 ML; Start 05/11/17 at 08:00 Dextrose (D50w Syringe) 50 ml Q15M PRN IV DECREASED GLUCOSE Last administered on 05/15/17 00:11; Admin Dose 50 ML; Start 05/11/17 at 08:00 Glucagon (Glucagen) 1 mg Q15M PRN IM DECREASED GLUCOSE; Start 05/11/17 at 08:00 Glucose (Glutose) 15 gm Q15M PRN BUCCAL DECREASED GLUCOSE; Start 05/11/17 at 08 :00 Epoetin Vasyl (Epogen (Esrd)) 10,000 units MoWeFr@17 SC Last administered on 17:41; Admin Dose 10,000 UNITS; Start 05/13/17 at 17:00 IV Flush (NS 10 ml) 10 ml PRN PRN IV IV PROTOCOL; Start 05/15/17 at 17:30 Pantoprazole 40 mg 40 mg BID@,18 IV Last administered on 05/21/17 17:41; Admin Dose 40 MG; Start 05/16/17 at 10:00 Trimethoprim/ Sulfamethoxazole/ Dextrose (Bactrim/D5W) 260 ml @ 173.333 mls/hr Q8 IVPB Last administered on 05/21/17 14:30; Admin Dose 173.333 MLS/HR; Start 05/19/17 at 21:00 Amikacin Sulfate AMIKACIN PER PHARMACY NOTE XX ; Start 05/19/17 at 18:00 Cefepime HCl/ Sodium Chloride (Maxipime/NS) 100 ml @ 100 mls/hr Q24H IVPB Last administered on 05/20/17 20:21; Admin Dose 100 MLS/HR; Start 05/19/17 at 20:00 Insulin Aspart (Novolog Insulin Pen) NOVOLOG *MILD* ALGORI... Q6 SC ; Start at 00:00 Midodrine 5 mg 5 mg TID@, GTB Last administered on 05/21/17 17:46; Admin Dose 5 MG; Start 05/20/17 at 09:00 Amikacin Sulfate 350 mg/Sodium Chloride 101.4 ml @ 102 mls/hr Q72H IVPB ; Start 05/22/17 at 20:00 Dextrose/Sodium Chloride (D5-1/2ns) 1,000 ml @ 50 mls/hr Q20H IV Last administered on 05/21/17 09:48; Admin Dose 50 MLS/HR; Start 05/21/17 at 10:00 Miscellaneous Information (*Rx Drug Level Order Reminder*) VANCO RANDOM LEVEL... ONCE ONCE XX ; Start 05/22/17 at 05:00; Stop 05/22/17 at 05:01 SYLVIA PADRON NP May 21, 2017 18:36
[2017-05-21] MEDS: CEFEPIME HCL 0.5 GM in SOD CHLORIDE 0.9% 100 ML IVPB SCH (20:15)
[2017-05-21] MEDS: DONEPEZIL 10 MG TAB GTB SCH (21:00)
[2017-05-21] MEDS: ATORVASTATIN 10 MG TAB GTB SCH (21:00)
[2017-05-21] MEDS: LACTOBACILLUS RHAMNOSUS CAP GTB SCH (21:00)
[2017-05-22] VITALS (104 sets, daily range): BP systolic 70–126; BP diastolic 21–66; PULSE 62–84; RESP 10–52
[2017-05-22] MEDS: DOPamine-D5W 1.6 MG/ML 250 ML IV SCH (01:11)
[2017-05-22] MEDS: PANTOPRAZOLE 40 MG INJ IV SCH ×2 (05:22→18:45)
[2017-05-22] MEDS: DEXTROSE 5%-0.45% NACL 1,000 ML IV SCH (05:23)
[2017-05-22] MEDS: INSULIN ASPART [NOVOLOG] 3 ML PEN SC SCH ×4 (06:00→18:00)
[2017-05-22] MEDS: TRIMETHOPRIM/SULFAMETHOXAZOLE 10 ML in DEXTROSE 5% 250 ML IVPB SCH ×3 (06:11→22:04)
[2017-05-22 06:46] LABS: BASOPHILS % 0.5 % (0.0-2.0); EOSINOPHILS # 0.9 10^3/ul (0.0-0.5); EOSINOPHILS % 14.5 % (0.0-7.0); HEMATOCRIT 31.5 % (37.0-47.0); HEMOGLOBIN 10.1 g/dl (12.0-16.0); LYMPHOCYTES # 1.1 10^3/ul (0.8-2.9); LYMPHOCYTES % 16.8 % (15.0-51.0); MEAN CORPUSCULAR HEMOGLOBIN 29.5 pg (29.0-33.0); MEAN CORPUSCULAR HGB CONC 32.1 g/dl (32.0-37.0); MEAN CORPUSCULAR VOLUME 92.1 fl (82.0-101.0); MEAN PLATELET VOLUME 10.8 fl (7.4-10.4); MONOCYTE # 0.4 10^3/ul (0.3-0.9); MONOCYTES % 5.9 % (0.0-11.0); NEUTROPHILS % 61.8 % (39.0-77.0); PLATELET COUNT 203 10^3/UL (140-415); RED BLOOD COUNT 3.42 10^6/ul (4.20-5.40); RED CELL DISTRIBUTION WIDTH 16.9 % (11.5-14.5); WHITE BLOOD COUNT 6.4 10^3/ul (4.8-10.8)
[2017-05-22 07:00] LABS: POSITIVE DIFF @See below
[2017-05-22 07:02] LABS: CALCIUM 8.3 mg/dl (8.4-10.2); CREATININE 2.01 mg/dl (0.44-1.00); MAGNESIUM 2.1 mg/dl (1.7-2.5); PHOSPHORUS 4.8 mg/dl (2.5-4.9); POTASSIUM 3.7 mmol/L (3.5-5.1)
--- NOTE | 2017-05-22 07:56 | PN ---
Date/Time of Note Date/Time of Note DATE: 05/22/17 TIME: 07:54 Assessment/Plan VTE Prophylaxis VTE Prophylaxis Intervention: other Lines/Catheters IV Catheter Type (from Nrs): PICC Line Central line still needed: Yes Urinary Cath still in place: Yes Reason Cath still needed: other (indicate) Assessment/Plan Chief Complaint/Hosp Course 1. hypoxemic resp failure: s/p trach 2. Pafib; currently in NSR 3. hx HTN: now in shock and hypotensive. : STILL requires DOPAMINE DRIP 4. encephalopathy 5. renal failure: f/u with nephrology 6. dysphagia 7. G tube malfunction/ infection 8. GI bleed 9. severe anemia will cont dopamine drip and titrate off once BP remains stable. cont resp care nutritional support. CONT ICU care as long as pt is on pressors correct lytes prn f/u renal fx. off of PLAVIX DUE TO ANEMIA/ BLEEDING awaiting GI or surgery for PEG replacement THANK YOU. Problems: Subjective 24 Hr Interval Summary Free Text/Dictation CARDIOLOGY FOLLOW UP NOTE: Discussed with staff and rhythm was reviewed pt remains in NSR. NO AFIB seen NONVERBAL. pt is still ICU on low dose dopamine drip and still unable to wean off so far. OBJECTIVE: General: no acute distress. s/p trach on vent. HEENT: NC/AT. NECK: NO JVD. no stridor. S/P trach on vent CV: RRR. systolic murmur; no gallop or rubs. PULM: no wheezing anteriorly GI: SOFT, NT, ND, no rebound or guarding Extremity: + B/L LE edema. no clubbing. neuro: opens her eyes to painful stimuli. does not follow commands Psych: calm rectal: deferred Exam/Review of Systems Vital Signs Vitals Vital Signs Date Time Temp Pulse Resp B/P Pulse Ox O2 Delivery O2 Flow Rate FiO2 05/22/17 06:45 65 13 74/38 98 05/22/17 06:30 Mechanical Ventilator 05/22/17 05:22 30 05/22/17 04:00 96.3 Intake and Output 05/21/17 05/21/17 05/22/17 15:00 23:00 07:00 Intake Total 987.844 ml 1050.636 ml 422.256 ml Output Total 465 ml 280 ml 238 ml Balance 522.844 ml 770.636 ml 184.256 ml Results Result Diagram: 05/22/17 0500 05/22/17 0500 Results 24 hrs Laboratory Tests Test 05/21/17 11:38 05/21/17 14:28 05/21/17 17:37 05/22/17 00:45 Bedside Glucose 68 L 81 74 72 Test 05/22/17 05:00 05/22/17 06:12 White Blood Count 6.4 # Red Blood Count 3.42 L Hemoglobin 10.1 L Hematocrit 31.5 L Mean Corpuscular Volume 92.1 Mean Corpuscular Hemoglobin 29.5 Mean Corpuscular Hemoglobin Concent 32.1 Red Cell Distribution Width 16.9 H Platelet Count 203 Mean Platelet Volume 10.8 H Neutrophils % 61.8 Lymphocytes % 16.8 Monocytes % 5.9 Eosinophils % 14.5 H Basophils % 0.5 Nucleated Red Blood Cells % 0.0 Neutrophils # 4.0 Lymphocytes # 1.1 Monocytes # 0.4 Eosinophils # 0.9 H Basophils # 0.0 Nucleated Red Blood Cells # 0.0 Sodium Level 140 Potassium Level 3.7 Chloride Level 108 Carbon Dioxide Level 22 Anion Gap 14 Blood Urea Nitrogen 33 H Creatinine 2.01 H Glucose Level 57 #L Calcium Level 8.3 L Phosphorus Level 4.8 Magnesium Level 2.1 Bedside Glucose 74 Medications Medications Current Medications Atorvastatin Calcium (Lipitor) 10 mg QHS GTB Last administered on 05/19/17 21: 00; Admin Dose 10 MG; Start 05/06/17 at 21:00 Bisacodyl (Dulcolax Supp) 10 mg Q48H [place] Last administered on 05/18/17 16:45; Admin Dose 10 MG; Start 05/06/17 at 17:00 Carbidopa/Levodopa (Sinemet (25/ 100)) 1 tab TID GTB Last administered on 14:30; Admin Dose 1 TAB; Start 05/06/17 at 21:00 Clopidogrel Bisulfate (plaVIX) 75 mg DAILY GTB Last administered on 05/17/17 10:40; Admin Dose 75 MG; Start 05/07/17 at 09:00; Status Future Hold Donepezil HCl (Aricept) 10 mg QHS GTB Last administered on 05/19/17 21:00; Admin Dose 10 MG; Start 05/06/17 at 21:00 Ferrous Sulfate (Ferrous Sulfate (Ec)) 325 mg BID PO Last administered on 08:48; Admin Dose 325 MG; Start 05/06/17 at 21:00 Folic Acid (Folic Acid) 1 mg DAILY GTB Last administered on 05/21/17 08:48; Admin Dose 1 MG; Start 05/07/17 at 09:00 Lactobacillus Acidophilus/ Rhamnosus (Culturelle) 1 cap QHS GTB Last administered on 05/19/17 21:00; Admin Dose 1 CAP; Start 05/06/17 at 21:00 Magnesium Hydroxide (Milk Of Mag) 30 ml Q24H GTB Last administered on 05/21/17 17:41; Admin Dose 30 ML; Start 05/06/17 at 17:00 Memantine (Namenda) 5 mg QAM GTB Last administered on 05/21/17 08:48; Admin Dose 5 MG; Start 05/07/17 at 09:00 Metoprolol Tartrate (Lopressor) 25 mg Q12H GTB Last administered on 05/18/17 16:47; Admin Dose 25 MG; Start 05/06/17 at 17:00; Status Future Hold Multivit/Ca Carb/ B Cmplx/FA/Prenat (Radhika-John) 1 tab DAILY GTB Last administered on 05/21/17 08:48; Admin Dose 1 TAB; Start 05/07/17 at 09:00 Pramipexole (Mirapex) 0.5 mg DAILY GTB Last administered on 05/21/17 08:48; Admin Dose 0.5 MG; Start 05/07/17 at 09:00 Sodium Biphosphate/ Sodium Phosphate (Fleet Enema Pediatric) 118 ml Q72H PRN [place] CONSTIPATION; Start 05/06/17 at 17:00 Citric Acid/ Sodium Citrate (Bicitra) 30 ml BID PO Last administered on 08:47; Admin Dose 30 ML; Start 05/06/17 at 21:00 Heparin Sodium (Porcine) (Heparin (5000 Units/0.5 ml)) 5,000 unit BID SC Last administered on 05/15/17 20:54; Admin Dose 5,000 UNIT; Start 05/06/17 at 21:00 ; Status Future Hold Nystatin (Nystatin Powder) 1 applic BID TOP Last administered on 05/21/17 21:43 ; Admin Dose 1 APPLIC; Start 05/09/17 at 21:00 Collagenase (Santyl) 1 applic DAILY TOP Last administered on 05/21/17 08:50; Admin Dose 1 APPLIC; Start 05/09/17 at 15:00 Collagenase 1 applic 1 applic PRN PRN TOP WOUND CARE; Start 05/09/17 at 14:00 Norepinephrine 16 mg/Dextrose 500 ml @ 1.87 mls/hr TITRATE IV ; Start 05/10/17 at 14:00 Dopamine HCl/ Dextrose 250 ml @ 6.848 mls/ hr TITRATE IV Last administered on 05/22/17 01:11; Admin Dose 3.424 MLS/HR; Start 05/10/17 at 18:30 Miscellaneous Information 1 ea NOTE XX ; Start 05/11/17 at 08:00 Glucose (Glutose) 15 gm Q15M PRN PO DECREASED GLUCOSE; Start 05/11/17 at 08:00 Glucose (Glutose) 22.5 gm Q15M PRN PO DECREASED GLUCOSE; Start 05/11/17 at 08: 00 Dextrose (D50w Syringe) 25 ml Q15M PRN IV DECREASED GLUCOSE Last administered on 05/21/17 11:44; Admin Dose 25 ML; Start 05/11/17 at 08:00 Dextrose (D50w Syringe) 50 ml Q15M PRN IV DECREASED GLUCOSE Last administered on 05/15/17 00:11; Admin Dose 50 ML; Start 05/11/17 at 08:00 Glucagon (Glucagen) 1 mg Q15M PRN IM DECREASED GLUCOSE; Start 05/11/17 at 08:00 Glucose (Glutose) 15 gm Q15M PRN BUCCAL DECREASED GLUCOSE; Start 05/11/17 at 08 :00 Epoetin Vasyl (Epogen (Esrd)) 10,000 units MoWeFr@17 SC Last administered on 17:41; Admin Dose 10,000 UNITS; Start 05/13/17 at 17:00 IV Flush (NS 10 ml) 10 ml PRN PRN IV IV PROTOCOL; Start 05/15/17 at 17:30 Pantoprazole 40 mg 40 mg BID@06,18 IV Last administered on 05/22/17 05:22; Admin Dose 40 MG; Start 05/16/17 at 10:00 Trimethoprim/ Sulfamethoxazole/ Dextrose (Bactrim/D5W) 260 ml @ 173.333 mls/hr Q8 IVPB Last administered on 05/22/17 06:11; Admin Dose 173.333 MLS/HR; Start 05/19/17 at 21:00 Amikacin Sulfate AMIKACIN PER PHARMACY NOTE XX ; Start 05/19/17 at 18:00 Cefepime HCl/ Sodium Chloride (Maxipime/NS) 100 ml @ 100 mls/hr Q24H IVPB Last administered on 05/21/17 20:15; Admin Dose 100 MLS/HR; Start 05/19/17 at 20 :00 Insulin Aspart (Novolog Insulin Pen) NOVOLOG *MILD* ALGORI... Q6 SC ; Start at 00:00 Midodrine 5 mg 5 mg TID@09,13,17 GTB Last administered on 05/21/17 17:46; Admin Dose 5 MG; Start 05/20/17 at 09:00 Amikacin Sulfate 350 mg/Sodium Chloride 101.4 ml @ 102 mls/hr Q72H IVPB ; Start 05/22/17 at 20:00 Dextrose/Sodium Chloride (D5-1/2ns) 1,000 ml @ 50 mls/hr Q20H IV Last administered on 05/22/17 05:23; Admin Dose 50 MLS/HR; Start 05/21/17 at 10:00 MILAGROS MUNOZ MD May 22, 2017 07:56
--- NOTE | 2017-05-22 08:02 | PN ---
DATE: 05/22/2017 SUBJECTIVE DATA: The patient is currently on pressure support. The patient is pending possible G-tube placement today. No other events noted. OBJECTIVE DATA: VITAL SIGNS: Blood pressure is a 74/38, respirations 18, pulse 65, temperature 98.6. I's and O's: Patient has 2.4 L in, 1 L out HEENT: Head is normocephalic. Pupils are reactive to light. NECK: Shows trach. HEART: Regular rate. LUNGS: Show diminished breath sounds at the base. ABDOMEN: Soft, nontender to palpation. No rebound or guarding. EXTREMITIES: Negative for clubbing, cyanosis. Positive for contractures. Positive for edema. DERMATOLOGIC: Clean. No rashes. MUSCULOSKELETAL: Positive wound. NEUROLOGIC: No change in exam. MEDICATION: Reviewed. LABORATORY AND DIAGNOSTIC DATA: Shows white count 6.4, hemoglobin 10.1, crit of 37.5, platelet count of 203. Sodium 140, potassium 3.7, BUN 33, creatinine 2.01. ASSESSMENT AND PLAN: 1. Septic shock. Etiology secondary to pneumonia and cellulitis, wounds. Patient remains on presser support. Difficulty being weaned off. Continue current treatment plan. Continue broad-spectrum antibiotics. 2. Anemia. Continue to monitor H and H levels. Continue Epogen. The patient is status post blood transfusion. 3. Dysphagia. The patient's gastrostomy tube was dislodged and is pending possible gastrostomy tube placement by GI. 4. Vent trach dependence with failure. Vent settings reviewed. ABGs reviewed. Continue to monitor. 5. Nonoliguric acute kidney injury on top of chronic kidney disease stage 4, etiology hemodynamics. Continue current treatment plan supportive care. Renally dose all meds. 6. Congestive heart failure. Continue medical management. 7. Acute encephalopathy and advanced dementia. 8. Mineral bone disorder. Monitor calcium and phosphorus levels. 9. Coronary artery disease. Continue medical management. 10. Diabetes. Continue current insulin regimen. 11. Decubitus wound. Continue wound care. Please note, I spent over 40 minutes of critical care time with this patient. Dictated By: Brendan Rosas DO /[email or web address]/rajesh /Document#: [id number]
[2017-05-22] MEDS: CITRIC ACID/NA CITRATE 30 ML CUP PO SCH ×2 (09:09→21:00)
[2017-05-22] MEDS: MULTIVIT/CA CARB/B CMPLX/FA TAB GTB SCH (09:09)
[2017-05-22] MEDS: FOLIC ACID 1 MG TAB GTB SCH (09:09)
[2017-05-22] MEDS: PRAMIPEXOLE 0.25 MG TAB GTB SCH (09:09)
[2017-05-22] MEDS: CARBIDOPA/LEVODOPA (25/100) TAB GTB SCH ×3 (09:09→21:00)
[2017-05-22] MEDS: FERROUS SULFATE (EC) 325 MG TAB PO SCH ×2 (09:09→21:00)
[2017-05-22] MEDS: COLISTIMETHATE (25 MG/ML INHAL SYG) NEB SCH ×3 (09:10→19:08)
[2017-05-22] MEDS: MEMANTINE 5 MG TAB GTB SCH (09:10)
[2017-05-22] MEDS: NYSTATIN 30 GM POWDER BTL TOP SCH ×2 (09:11→20:08)
[2017-05-22] MEDS: COLLAGENASE 30 GM TUBE TOP SCH (09:11)
[2017-05-22] MEDS: MIDODRINE 5 MG TAB GTB SCH ×3 (09:21→16:38)
--- NOTE | 2017-05-22 13:16 | CONS ---
Date/Time of Note Date/Time of Note DATE: 05/22/17 TIME: 13:15 Assessment/Plan Assessment/Plan Additional Assessment/Plan Ventilator setting; AC of 14, tidal volume 500, PEEP of 5, 30% FiO2. Assessment and recommendations; 1. Patient admitted for severe sepsis from abdominal wall cellulitis, currently on appropriate antibiotic regimen. 2. Advanced dementia. 3. Chronic respiratory failure. 4. Renal insufficiency. Next Continue current supportive care. Prognosis is poor. CODE STATUS needs to be addressed. Consultation Date/Type/Reason Admit Date/Time May 06, 2017 at 16:34 Initial Consult Date 05/10/17 Type of Consultation: Pulmonary/critical care 24 HR Interval Summary Free Text/Dictation Patient condition remains critical. Remains unresponsive. However has remained hemodynamically stable. General exam; elderly woman, on ventilator via tracheostomy, currently in no distress. Exam/Review of Systems Vital Signs Vitals Vital Signs Date Time Temp Pulse Resp B/P Pulse Ox O2 Delivery O2 Flow Rate FiO2 05/22/17 12:00 97.0 69 12 110/39 97 Mechanical Ventilator 05/22/17 08:30 30 Intake and Output 05/21/17 05/21/17 05/22/17 15:00 23:00 07:00 Intake Total 987.844 ml 1050.636 ml 479.056 ml Output Total 465 ml 280 ml 308 ml Balance 522.844 ml 770.636 ml 171.056 ml Exam HEENT exam; supple neck, no JVD. No lymphadenopathy. Midline trachea. No thyromegaly. Tracheostomy in place. Patient has a multiple carious teeth. Chest exam; diminished but clear breath sound. S1-S2 audible, no murmurs. Regular rhythm. Abdomen exam; soft, G-tube in place. There is continued improvement in abdominal wall cellulitis. Extremity exam; no peripheral edema. [employer] exam; patient remains unresponsive. Results Result Diagram: 05/22/17 0500 05/22/17 0500 Results 24 hrs Laboratory Tests Test 05/21/17 14:28 05/21/17 17:37 05/22/17 00:45 05/22/17 05:00 Bedside Glucose 81 74 72 White Blood Count 6.4 # Red Blood Count 3.42 L Hemoglobin 10.1 L Hematocrit 31.5 L Mean Corpuscular Volume 92.1 Mean Corpuscular Hemoglobin 29.5 Mean Corpuscular Hemoglobin Concent 32.1 Red Cell Distribution Width 16.9 H Platelet Count 203 Mean Platelet Volume 10.8 H Neutrophils % 61.8 Lymphocytes % 16.8 Monocytes % 5.9 Eosinophils % 14.5 H Basophils % 0.5 Nucleated Red Blood Cells % 0.0 Neutrophils # 4.0 Lymphocytes # 1.1 Monocytes # 0.4 Eosinophils # 0.9 H Basophils # 0.0 Nucleated Red Blood Cells # 0.0 Sodium Level 140 Potassium Level 3.7 Chloride Level 108 Carbon Dioxide Level 22 Anion Gap 14 Blood Urea Nitrogen 33 H Creatinine 2.01 H Glucose Level 57 #L Calcium Level 8.3 L Phosphorus Level 4.8 Magnesium Level 2.1 Random Amikacin Level Test 05/22/17 06:12 05/22/17 07:42 05/22/17 09:24 05/22/17 11:30 Bedside Glucose 74 95 Lab Scanned Report REFERENCE LAB REFERENCE LAB Test 05/22/17 13:12 Bedside Glucose 78 Medications Medications Current Medications Atorvastatin Calcium (Lipitor) 10 mg QHS GTB Last administered on 05/19/17 21: 00; Admin Dose 10 MG; Start 05/06/17 at 21:00 Bisacodyl (Dulcolax Supp) 10 mg Q48H [place] Last administered on 05/18/17 16:45; Admin Dose 10 MG; Start 05/06/17 at 17:00 Carbidopa/Levodopa (Sinemet (25/ 100)) 1 tab TID GTB Last administered on 09:09; Admin Dose 1 TAB; Start 05/06/17 at 21:00 Clopidogrel Bisulfate (plaVIX) 75 mg DAILY GTB Last administered on 05/17/17 10:40; Admin Dose 75 MG; Start 05/07/17 at 09:00; Status Future Hold Donepezil HCl (Aricept) 10 mg QHS GTB Last administered on 05/19/17 21:00; Admin Dose 10 MG; Start 05/06/17 at 21:00 Ferrous Sulfate (Ferrous Sulfate (Ec)) 325 mg BID PO Last administered on 09:09; Admin Dose 325 MG; Start 05/06/17 at 21:00 Folic Acid (Folic Acid) 1 mg DAILY GTB Last administered on 05/22/17 09:09; Admin Dose 1 MG; Start 05/07/17 at 09:00 Lactobacillus Acidophilus/ Rhamnosus (Culturelle) 1 cap QHS GTB Last administered on 05/19/17 21:00; Admin Dose 1 CAP; Start 05/06/17 at 21:00 Magnesium Hydroxide (Milk Of Mag) 30 ml Q24H GTB Last administered on 05/21/17 17:41; Admin Dose 30 ML; Start 05/06/17 at 17:00 Memantine (Namenda) 5 mg QAM GTB Last administered on 05/22/17 09:10; Admin Dose 5 MG; Start 05/07/17 at 09:00 Metoprolol Tartrate (Lopressor) 25 mg Q12H GTB Last administered on 05/18/17 16:47; Admin Dose 25 MG; Start 05/06/17 at 17:00; Status Future Hold Multivit/Ca Carb/ B Cmplx/FA/Prenat (Radhika-Jonh) 1 tab DAILY GTB Last administered on 05/22/17 09:09; Admin Dose 1 TAB; Start 05/07/17 at 09:00 Pramipexole (Mirapex) 0.5 mg DAILY GTB Last administered on 05/22/17 09:09; Admin Dose 0.5 MG; Start 05/07/17 at 09:00 Sodium Biphosphate/ Sodium Phosphate (Fleet Enema Pediatric) 118 ml Q72H PRN [place] CONSTIPATION; Start 05/06/17 at 17:00 Citric Acid/ Sodium Citrate (Bicitra) 30 ml BID PO Last administered on 09:09; Admin Dose 30 ML; Start 05/06/17 at 21:00 Heparin Sodium (Porcine) (Heparin (5000 Units/0.5 ml)) 5,000 unit BID SC Last administered on 05/15/17 20:54; Admin Dose 5,000 UNIT; Start 05/06/17 at 21:00 ; Status Future Hold Nystatin (Nystatin Powder) 1 applic BID TOP Last administered on 05/22/17 09:11 ; Admin Dose 1 APPLIC; Start 05/09/17 at 21:00 Collagenase (Santyl) 1 applic DAILY TOP Last administered on 05/22/17 09:11; Admin Dose 1 APPLIC; Start 05/09/17 at 15:00 Collagenase 1 applic 1 applic PRN PRN TOP WOUND CARE; Start 05/09/17 at 14:00 Norepinephrine 16 mg/Dextrose 500 ml @ 1.87 mls/hr TITRATE IV ; Start 05/10/17 at 14:00 Dopamine HCl/ Dextrose 250 ml @ 6.848 mls/ hr TITRATE IV Last administered on 05/22/17 01:11; Admin Dose 3.424 MLS/HR; Start 05/10/17 at 18:30 Miscellaneous Information 1 ea NOTE XX ; Start 05/11/17 at 08:00 Glucose (Glutose) 15 gm Q15M PRN PO DECREASED GLUCOSE; Start 05/11/17 at 08:00 Glucose (Glutose) 22.5 gm Q15M PRN PO DECREASED GLUCOSE; Start 05/11/17 at 08: 00 Dextrose (D50w Syringe) 25 ml Q15M PRN IV DECREASED GLUCOSE Last administered on 05/21/17 11:44; Admin Dose 25 ML; Start 05/11/17 at 08:00 Dextrose (D50w Syringe) 50 ml Q15M PRN IV DECREASED GLUCOSE Last administered on 05/15/17 00:11; Admin Dose 50 ML; Start 05/11/17 at 08:00 Glucagon (Glucagen) 1 mg Q15M PRN IM DECREASED GLUCOSE; Start 05/11/17 at 08:00 Glucose (Glutose) 15 gm Q15M PRN BUCCAL DECREASED GLUCOSE; Start 05/11/17 at 08 :00 Epoetin Vasyl (Epogen (Esrd)) 10,000 units MoWeFr@17 [place] Last administered on 17:41; Admin Dose 10,000 UNITS; Start 05/13/17 at 17:00 IV Flush (NS 10 ml) 10 ml PRN PRN IV IV PROTOCOL; Start 05/15/17 at 17:30 Pantoprazole 40 mg 40 mg BID@06,18 IV Last administered on 05/22/17 05:22; Admin Dose 40 MG; Start 05/16/17 at 10:00 Trimethoprim/ Sulfamethoxazole/ Dextrose (Bactrim/D5W) 260 ml @ 173.333 mls/hr Q8 IVPB Last administered on 05/22/17 06:11; Admin Dose 173.333 MLS/HR; Start 05/19/17 at 21:00 Amikacin Sulfate AMIKACIN PER PHARMACY NOTE XX ; Start 05/19/17 at 18:00 Cefepime HCl/ Sodium Chloride (Maxipime/NS) 100 ml @ 100 mls/hr Q24H IVPB Last administered on 05/21/17 20:15; Admin Dose 100 MLS/HR; Start 05/19/17 at 20 :00 Insulin Aspart (Novolog Insulin Pen) NOVOLOG *MILD* ALGORI... Q6 SC ; Start at 00:00 Midodrine 5 mg 5 mg TID@,,17 GTB Last administered on 05/22/17 09:21; Admin Dose 5 MG; Start 05/20/17 at 09:00 Dextrose/Sodium Chloride 1,000 ml @ 50 mls/hr Q20H IV Last administered on 05/22 05:23; Admin Dose 50 MLS/HR; Start 05/21/17 at 10:00 Amikacin Sulfate/ Sodium Chloride (Amikacin/NS) 101.4 ml @ 101.4 mls/ hr Q96H IVPB ; Start 05/23/17 at 21:00 SMITH RUIZ May 22, 2017 13:16
--- NOTE | 2017-05-22 14:01 | CONS ---
Date/Time of Note Date/Time of Note DATE: 05/22/17 TIME: 13:57 Assessment/Plan Assessment/Plan Chief Complaint/Hosp Course ID PROGRESS NOTE CURRENT ABX DAY => Colistin INH #7 +Cefepime #4 + Amikacin #4 + Bactrim IV #4 TOTAL ABX DAY # 13 Merrem#10 => DC 7/30 Vanco IV #10 => DC 7/30 24H INTERVAL SUMMARY * Clinically status quo -- pressors, obtunded => MICRO ABD RESULTED PSAR MDRO * REPEAT ABD WOUND CX: OUND CULTURE Final Organism 1 PSEUDOMONAS AERUGINOSA QUANTITY 2+ P.AERUG M.I.C. RX --------- --- AMIKACIN <=2 S AZTREONAM R CEFEPIME 8 S CEFTAZIDIME 16 I CIPROFLOXACIN >=4 R GENTAMICIN >=16 R IMIPENEM >=16 R LEVOFLOXACIN >=8 R TOBRAMYCIN 8 I PIPERACILLIN/TAZOBACTAM R * 05/14/17 SPUTUM: RESPIRATORY CULTURE FINAL P.AERUG STENMAL M.I.C. RX M.I.C. RX --------- --- --------- --- AMIKACIN <=2 S AZTREONAM R CEFEPIME 16 I CEFTAZIDIME 16 I CIPROFLOXACIN >=4 R GENTAMICIN 2 S IMIPENEM >=16 R LEVOFLOXACIN >=8 R >=8 R TOBRAMYCIN <=1 S TRIMETHOPRIM/SULFAMETHOXAZOLE 0.047 S PIPERACILLIN/TAZOBACTAM R PHYSICAL EXAMINATION: GENERAL: VSS,NAD, no fevers == Obese, eyes open HEENT: NGT->Secure / ETT secure NECK: Supple, trach-> midline CHEST: Equal chest rise bilaterally, Vented HEART: Pulse RRR ABDOMEN: Soft -> see photos large EC fistula residual healing scar, cellulitis w/(+)drainage EXTREMITIES: Warm, no edema SKIN: Warm, dry ID ASSESSMENT: 86 yo F w/PMHx Obesity,Parkinson's dementia w/chronic encephalopathy admitted with: 1. Sepsis w/shock, hypothermia, leukocytosis, lactic acidosis => multifactorial as below * 05/07/17 BCx (-) 2. Acute on chronic respiratory failure w/Trach 3. HCAP => Tracheobronchitis * CT (+)Large right pleural effusion/small left effusion * Respiratory Cx 05/14: * Organism 1 PSEUDOMONAS AERUGINOSA QUANTITY 3+ Organism 2 STENOTROPHOMONAS MALTOPHILIA QUANTITY 3+ 4. 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 5. UTI as per urinalysis on admission => urine was not sent for culture 6. Multiple chronic decub ulcers 7. RASH on admission s/p empiric Elimite x1 w/(-)skin scraping for scabies 8. Acute kidney injury 9. Diabetes. 10. Acute on chronic anemia. 11. 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 ABX adjusted Day per MICRO results -> await clinical response, poor quality of life, at age 86 poor prognosis 2. ABX for MDRO with risk of target organ damage + breeding new MDRO ? Ethical Dilemma * Watch renal fx on Bactrim IV + Aminoglycoside -> MDRO leave limited options, the only other option is to start Colistin. 3. Doubt ABX Rx will reverse poor prognosis; consider palliative care approach . . . Problems: Consultation Date/Type/Reason Admit Date/Time May 06, 2017 at 16:34 Initial Consult Date 05/12/17 Type of Consultation: ID Exam/Review of Systems Vital Signs Vitals Vital Signs Date Time Temp Pulse Resp B/P Pulse Ox O2 Delivery O2 Flow Rate FiO2 05/22/17 12:00 97.0 69 12 110/39 97 Mechanical Ventilator 05/22/17 08:30 30 Intake and Output 05/21/17 05/21/17 05/22/17 15:00 23:00 07:00 Intake Total 987.844 ml 1050.636 ml 479.056 ml Output Total 465 ml 280 ml 308 ml Balance 522.844 ml 770.636 ml 171.056 ml Results Result Diagram: 05/22/17 0500 05/22/17 0500 Results 24 hrs Laboratory Tests Test 05/21/17 14:28 05/21/17 17:37 05/22/17 00:45 05/22/17 05:00 Bedside Glucose 81 74 72 White Blood Count 6.4 # Red Blood Count 3.42 L Hemoglobin 10.1 L Hematocrit 31.5 L Mean Corpuscular Volume 92.1 Mean Corpuscular Hemoglobin 29.5 Mean Corpuscular Hemoglobin Concent 32.1 Red Cell Distribution Width 16.9 H Platelet Count 203 Mean Platelet Volume 10.8 H Neutrophils % 61.8 Lymphocytes % 16.8 Monocytes % 5.9 Eosinophils % 14.5 H Basophils % 0.5 Nucleated Red Blood Cells % 0.0 Neutrophils # 4.0 Lymphocytes # 1.1 Monocytes # 0.4 Eosinophils # 0.9 H Basophils # 0.0 Nucleated Red Blood Cells # 0.0 Sodium Level 140 Potassium Level 3.7 Chloride Level 108 Carbon Dioxide Level 22 Anion Gap 14 Blood Urea Nitrogen 33 H Creatinine 2.01 H Glucose Level 57 #L Calcium Level 8.3 L Phosphorus Level 4.8 Magnesium Level 2.1 Random Amikacin Level Test 05/22/17 06:12 05/22/17 07:42 05/22/17 09:24 05/22/17 11:30 Bedside Glucose 74 95 Lab Scanned Report REFERENCE LAB REFERENCE LAB Test 05/22/17 13:12 Bedside Glucose 78 Medications Medications Current Medications Atorvastatin Calcium (Lipitor) 10 mg QHS GTB Last administered on 05/19/17t 21: 00; Admin Dose 10 MG; Start 05/06/17 at 21:00 Bisacodyl (Dulcolax Supp) 10 mg Q48H SD Last administered on 05/18/17 16:45; Admin Dose 10 MG; Start 05/06/17 at 17:00 Carbidopa/Levodopa (Sinemet (25/ 100)) 1 tab TID GTB Last administered on 09:09; Admin Dose 1 TAB; Start 05/06/17 at 21:00 Clopidogrel Bisulfate (plaVIX) 75 mg DAILY GTB Last administered on 05/17/17 10:40; Admin Dose 75 MG; Start 05/07/17 at 09:00; Status Future Hold Donepezil HCl (Aricept) 10 mg QHS GTB Last administered on 05/19/17 21:00; Admin Dose 10 MG; Start 05/06/17 at 21:00 Ferrous Sulfate (Ferrous Sulfate (Ec)) 325 mg BID PO Last administered on 09:09; Admin Dose 325 MG; Start 05/06/17 at 21:00 Folic Acid (Folic Acid) 1 mg DAILY GTB Last administered on 05/22/17 09:09; Admin Dose 1 MG; Start 05/07/17 at 09:00 Lactobacillus Acidophilus/ Rhamnosus (Culturelle) 1 cap QHS GTB Last administered on 05/19/17 21:00; Admin Dose 1 CAP; Start 05/06/17 at 21:00 Magnesium Hydroxide (Milk Of Mag) 30 ml Q24H GTB Last administered on 05/21/17 17:41; Admin Dose 30 ML; Start 05/06/17 at 17:00 Memantine (Namenda) 5 mg QAM GTB Last administered on 05/22/17 09:10; Admin Dose 5 MG; Start 05/07/17 at 09:00 Metoprolol Tartrate (Lopressor) 25 mg Q12H GTB Last administered on 05/18/17 16:47; Admin Dose 25 MG; Start 05/06/17 at 17:00; Status Future Hold Multivit/Ca Carb/ B Cmplx/FA/Prenat (Radhika-John) 1 tab DAILY GTB Last administered on 05/22/17 09:09; Admin Dose 1 TAB; Start 05/07/17 at 09:00 Pramipexole (Mirapex) 0.5 mg DAILY GTB Last administered on 05/22/17 09:09; Admin Dose 0.5 MG; Start 05/07/17 at 09:00 Sodium Biphosphate/ Sodium Phosphate (Fleet Enema Pediatric) 118 ml Q72H PRN [place] CONSTIPATION; Start 05/06/17 at 17:00 Citric Acid/ Sodium Citrate (Bicitra) 30 ml BID PO Last administered on 09:09; Admin Dose 30 ML; Start 05/06/17 at 21:00 Heparin Sodium (Porcine) (Heparin (5000 Units/0.5 ml)) 5,000 unit BID SC Last administered on 05/15/17 20:54; Admin Dose 5,000 UNIT; Start 05/06/17 at 21:00 ; Status Future Hold Nystatin (Nystatin Powder) 1 applic BID TOP Last administered on 05/22/17 09:11 ; Admin Dose 1 APPLIC; Start 05/09/17 at 21:00 Collagenase (Santyl) 1 applic DAILY TOP Last administered on 05/22/17 09:11; Admin Dose 1 APPLIC; Start 05/09/17 at 15:00 Collagenase 1 applic 1 applic PRN PRN TOP WOUND CARE; Start 05/09/17 at 14:00 Norepinephrine 16 mg/Dextrose 500 ml @ 1.87 mls/hr TITRATE IV ; Start 05/10/17 at 14:00 Dopamine HCl/ Dextrose 250 ml @ 6.848 mls/ hr TITRATE IV Last administered on 05/22/17 01:11; Admin Dose 3.424 MLS/HR; Start 05/10/17 at 18:30 Miscellaneous Information 1 ea NOTE XX ; Start 05/11/17 at 08:00 Glucose (Glutose) 15 gm Q15M PRN PO DECREASED GLUCOSE; Start 05/11/17 at 08:00 Glucose (Glutose) 22.5 gm Q15M PRN PO DECREASED GLUCOSE; Start 05/11/17 at 08: 00 Dextrose (D50w Syringe) 25 ml Q15M PRN IV DECREASED GLUCOSE Last administered on 05/21/17 11:44; Admin Dose 25 ML; Start 05/11/17 at 08:00 Dextrose (D50w Syringe) 50 ml Q15M PRN IV DECREASED GLUCOSE Last administered on 05/15/17 00:11; Admin Dose 50 ML; Start 05/11/17 at 08:00 Glucagon (Glucagen) 1 mg Q15M PRN IM DECREASED GLUCOSE; Start 05/11/17 at 08:00 Glucose (Glutose) 15 gm Q15M PRN BUCCAL DECREASED GLUCOSE; Start 05/11/17 at 08 :00 Epoetin Vasyl (Epogen (Esrd)) 10,000 units MoWeFr@17 SC Last administered on 17:41; Admin Dose 10,000 UNITS; Start 05/13/17 at 17:00 IV Flush (NS 10 ml) 10 ml PRN PRN IV IV PROTOCOL; Start 05/15/17 at 17:30 Pantoprazole 40 mg 40 mg BID@06,18 IV Last administered on 05/22/17 05:22; Admin Dose 40 MG; Start 05/16/17 at 10:00 Trimethoprim/ Sulfamethoxazole/ Dextrose (Bactrim/D5W) 260 ml @ 173.333 mls/hr Q8 IVPB Last administered on 05/22/17 06:11; Admin Dose 173.333 MLS/HR; Start 05/19/17 at 21:00 Amikacin Sulfate AMIKACIN PER PHARMACY NOTE XX ; Start 05/19/17 at 18:00 Cefepime HCl/ Sodium Chloride (Maxipime/NS) 100 ml @ 100 mls/hr Q24H IVPB Last administered on 05/21/17 20:15; Admin Dose 100 MLS/HR; Start 05/19/17 at 20 :00 Insulin Aspart (Novolog Insulin Pen) NOVOLOG *MILD* ALGORI... Q6 SC ; Start at 00:00 Midodrine 5 mg 5 mg TID@,,17 GTB Last administered on 05/22/17 09:21; Admin Dose 5 MG; Start 05/20/17 at 09:00 Dextrose/Sodium Chloride 1,000 ml @ 50 mls/hr Q20H IV Last administered on 05/22 05:23; Admin Dose 50 MLS/HR; Start 05/21/17 at 10:00 Amikacin Sulfate/ Sodium Chloride (Amikacin/NS) 101.4 ml @ 101.4 mls/ hr Q96H IVPB ; Start 05/23/17 at 21:00 SYLVIA PADRON NP May 22, 2017 14:00
[2017-05-22] MEDS: MAGNESIUM HYDROXIDE 30ML CUP GTB SCH (16:38)
[2017-05-22] MEDS: DEXTROSE 50% 50 ML SYRINGE IV PRN (16:38)
[2017-05-22] MEDS: BISACODYL 10 MG SUPP PR SCH (16:38)
--- NOTE | 2017-05-22 18:40 | PN ---
Date/Time of Note Date/Time of Note DATE: 05/22/17 TIME: 18:32 Assessment/Plan Lines/Catheters IV Catheter Type (from Nrs): PICC Line Collazo in Place (from Nrsg): Yes Assessment/Plan Chief Complaint/Hosp Course 1. G-tube dislodgement: replaced with gjtube by GI, continued bilious drainage peristomal; Replacement of jtube by Dr. Degroot; still unable to be weaned from pressors -hospice/palliative -possible surgical placement of jtube when medically stable 2. Septic shock: multifactorial: 2/2: pneumonia + cellulitis + wounds; unable to be weaned from pressors -abx -supportive 3. Respiratory failure with trach: PNA wtih pulm edema; comfortable on vent -pulmonary toilet -abx -supportive 4.STARLA with CKD; +urine output; cr up -judicious fluids -renally dose meds -per nephrology 5. Normocytic anemia: previous coffee ground drainage peristoma; s/p prbc transfusion; stable; no acute bleed noted -monitor and transfuse as needed -continue Epogen 6. CHF -medical management 7. Diabetes -medical management 8. Acute encephalopathy with history of advanced dementia -supportive 9. Decubitus wound. Continue wound care. 10. Peristomal cellulitis 2/ #1; +pseudomonas: improving -local care -abx per sensitivity 11. Pancytopenia: improving Patient seen and examined in collaboration with Dr. Meliton Blackburn Problems: Subjective 24 Hr Interval Summary Continues on pressors. Confused, nonverbal. Appears comfortable on vent. Nonverbal indicators of pain not present. No vomiting/diarrhea. Exam/Review of Systems Vital Signs Vitals Vital Signs Date Time Temp Pulse Resp B/P Pulse Ox O2 Delivery O2 Flow Rate FiO2 05/22/17 17:29 71 12 97 30 05/22/17 16:45 116/66 Mechanical Ventilator 05/22/17 16:00 96.3 Intake and Output 05/21/17 05/21/17 05/22/17 15:00 23:00 07:00 Intake Total 987.844 ml 1050.636 ml 479.056 ml Output Total 465 ml 280 ml 308 ml Balance 522.844 ml 770.636 ml 171.056 ml Exam Free Text/Dictation Constitutional: alert, non-verbal, No oriented Psych: confusion, withdraws from pain Head: atraumatic, normocephalic Eyes: nl sclera ENMT: mucosa pink and moist Neck: non-tender, other (trach), supple Respiratory: diminished Cardiovascular: edema Gastrointestinal: distended (mod), other (peristomal leaking bilious drainage: bilious drainage from g port to drainage bag tube pulled out part-way out), soft , nontender Musculoskeletal: No muscle tone Extremities: edema Neurological: No nl mental status, No nl speech Skin: other (abdominal/peristomal/breast fold redness, moisture damage/ cellulitis improving) Results Result Diagram: 05/22/1749905/22/17499 SHADI CALDERON NP May 22, 2017 18:40
[2017-05-22] MEDS: EPOETIN 10000 UNITS/1 ML INJ (ESRD) SC SCH (18:49)
[2017-05-22] MEDS ORDERED: AMIKACIN 350 MG in SOD CHLORIDE 0.9% 100 ML IVPB SCH (20:00)
[2017-05-22] MEDS: CEFEPIME HCL 0.5 GM in SOD CHLORIDE 0.9% 100 ML IVPB SCH (20:02)
[2017-05-22] MEDS: LACTOBACILLUS RHAMNOSUS CAP GTB SCH (21:00)
[2017-05-22] MEDS: DONEPEZIL 10 MG TAB GTB SCH (21:00)
[2017-05-22] MEDS: ATORVASTATIN 10 MG TAB GTB SCH (21:00)
[2017-05-23] VITALS (70 sets, daily range): BP systolic 59–119; BP diastolic 17–100; PULSE 72–94; RESP 12–21
[2017-05-23] MEDS: DEXTROSE 5%-0.45% NACL 1,000 ML IV SCH ×2 (02:10→11:38)
[2017-05-23] MEDS: DOPamine-D5W 1.6 MG/ML 250 ML IV SCH ×2 (05:23→23:39)
[2017-05-23] MEDS: PANTOPRAZOLE 40 MG INJ IV SCH ×2 (05:33→17:29)
[2017-05-23] MEDS: INSULIN ASPART [NOVOLOG] 3 ML PEN SC SCH ×5 (05:33→23:31)
[2017-05-23 05:47] LABS: WHITE BLOOD COUNT 8.9 10^3/ul (4.8-10.8)
[2017-05-23 05:48] LABS: HEMATOCRIT 34.2 % (37.0-47.0); HEMOGLOBIN 10.9 g/dl (12.0-16.0); MEAN CORPUSCULAR HEMOGLOBIN 29.1 pg (29.0-33.0); MEAN CORPUSCULAR HGB CONC 31.9 g/dl (32.0-37.0); MEAN CORPUSCULAR VOLUME 91.2 fl (82.0-101.0); MEAN PLATELET VOLUME 10.5 fl (7.4-10.4); PLATELET COUNT 241 10^3/UL (140-415); RED BLOOD COUNT 3.75 10^6/ul (4.20-5.40); RED CELL DISTRIBUTION WIDTH 16.8 % (11.5-14.5)
[2017-05-23] MEDS: TRIMETHOPRIM/SULFAMETHOXAZOLE 10 ML in DEXTROSE 5% 250 ML IVPB SCH ×3 (05:50→21:42)
[2017-05-23 06:00] LABS: POSITIVE DIFF @See below
[2017-05-23 06:21] LABS: INR 1.44; PROTIME 17.6 Sec (12.2-14.2); PT RATIO 1.4
[2017-05-23 06:22] LABS: PARTIAL THROMBOPLASTIN TIME 39.5 Sec (25.0-35.0)
[2017-05-23 06:28] LABS: CALCIUM 8.4 mg/dl (8.4-10.2); CREATININE 1.99 mg/dl (0.44-1.00); MAGNESIUM 2.1 mg/dl (1.7-2.5); PHOSPHORUS 5.1 mg/dl (2.5-4.9); POTASSIUM 3.8 mmol/L (3.5-5.1)
--- NOTE | 2017-05-23 07:40 | CONS ---
Date/Time of Note Date/Time of Note DATE: 05/23/17 TIME: 07:32 Assessment/Plan Assessment/Plan Additional Assessment/Plan I had long conversation with patient's son who initially was very angry with my contacting him. He said he thought the phone call was to force him to change his mind concerning level of care for his mother. With that he vented concerning level of care that his mother should receive, she is a person and the health care delivery system treats her like a statistic and more. Eventually he calmed down and we had a civil conversation concerning a one-on- one meeting. I did not portion but gave him my direct cell phone number to contact me. Consultation Date/Type/Reason Admit Date/Time May 06, 2017 at 16:34 Date of Consultation: May 22, 2017 Hx of Present Illness 86-year-old debilitated female admitted from [facility] with dislodged G-tube. However during hospital course she has developed respiratory failure is currently in the intensive care unit. Major comorbid medical problems include history of advanced dementia, she is PEG trached and chronic kidney disease. She remains in intensive care unit critically ill, she is a full code family members have not addressed ongoing goals of care. Subjective hx not possible: pt critical Constitutional: chills, diaphoresis, disoriented, febrile, improved, no complaints, poor po, requiring IVF, requiring O2 Eyes: No discharge, No no complaints, No other, No pain, No redness, No visual change ENT: No bleeding, No congestion, No discharge, No dysphagia, No no complaints, No other, No pain, No sore throat Respiratory: No cough, No no complaints, No other, No pain, No pleuritic pain, No shortness of breath, No sputum, No wheezing Cardiovascular: no complaints Gastrointestinal: no complaints Genitourinary: No bleeding, No discharge Musculoskeletal: restricted range of motion Skin: No bruising, No erythema Neurologic: confusion Endocrine: no complaints Lymphatic: no complaints Psychological: nl mood/affect, no complaints Immunologic: no complaints Past Medical History Medical History: congestive heart failure, renal disease Past Surgical History Past Surgical Hx: endoscopy Social History Alcohol Use: none Smoking Status: Unknown if ever smoked Drug Use: none Exam/Review of Systems Vital Signs Vitals Vital Signs Date Time Temp Pulse Resp B/P Pulse Ox O2 Delivery O2 Flow Rate FiO2 05/23/17 07:18 97.9 83 12 112/100 99 Mechanical Ventilator 05/23/17 05:59 30 Intake and Output 05/22/17 05/22/17 05/23/17 15:00 23:00 07:00 Intake Total 945.733 ml 851.303 ml 811.363 ml Output Total 555 ml 271 ml 503 ml Balance 390.733 ml 580.303 ml 308.363 ml Exam Constitutional: frail Head: No atraumatic, No hematomas, No lacerations, No normocephalic, No other Respiratory: congested cough, crackles/rales, diminished breath sounds Cardiovascular: No S3, No S4, No bruits, No diastolic murmur, No edema, No gallop, No irregular rhythm, No jugular venous distention (JVD), No murmurs/ extra sounds, No nl pulses, No other, No regular rate and rhythm, No rub, No systolic murmur Gastrointestinal: No ascites, No bowel sounds, No distended, No firm, No hepatomegaly, No mass, No nl liver, spleen, No non-tender, No other, No rebound or guarding, No soft, No splenomegaly, No surgical scars, No tender Neurological: unresponsive Results Result Diagram: 05/23/17 0500 05/23/17 0500 Results 24 hrs Laboratory Tests Test 05/22/17 07:42 05/22/17 09:24 05/22/17 11:30 05/22/17 13:12 Bedside Glucose 95 78 Lab Scanned Report REFERENCE LAB REFERENCE LAB Test 05/22/17 16:35 05/22/17 16:45 05/22/17 18:45 05/23/17 00:50 Bedside Glucose 69 L 175 78 83 Test 05/23/17 05:00 05/23/17 05:33 White Blood Count 8.9 # Red Blood Count 3.75 L Hemoglobin 10.9 L Hematocrit 34.2 L Mean Corpuscular Volume 91.2 Mean Corpuscular Hemoglobin 29.1 Mean Corpuscular Hemoglobin Concent 31.9 L Red Cell Distribution Width 16.8 H Platelet Count 241 Mean Platelet Volume 10.5 H Neutrophils % Lymphocytes % Monocytes % Eosinophils % Basophils % Nucleated Red Blood Cells % 0.0 Neutrophils # Lymphocytes # Monocytes # Eosinophils # Basophils # Nucleated Red Blood Cells # Prothrombin Time 17.6 #H Prothrombin Time Ratio 1.4 INR International Normalized Ratio 1.44 Activated Partial Thromboplast Time 39.5 H Sodium Level 138 Potassium Level 3.8 Chloride Level 104 Carbon Dioxide Level 24 Anion Gap 14 Blood Urea Nitrogen 31 H Creatinine 1.99 H Glucose Level 73 Calcium Level 8.4 Phosphorus Level 5.1 H Magnesium Level 2.1 Bedside Glucose 76 Medications Medications Current Medications Atorvastatin Calcium (Lipitor) 10 mg QHS GTB Last administered on 05/19/17 21: 00; Admin Dose 10 MG; Start 05/06/17 at 21:00 Bisacodyl (Dulcolax Supp) 10 mg Q48H WA Last administered on 05/22/17 16:38; Admin Dose 10 MG; Start 05/06/17 at 17:00 Carbidopa/Levodopa (Sinemet (25/ )) 1 tab TID GTB Last administered on 14:01; Admin Dose 1 TAB; Start 05/06/17 at 21:00 Clopidogrel Bisulfate (plaVIX) 75 mg DAILY GTB Last administered on 05/17/17 10:40; Admin Dose 75 MG; Start 05/07/17 at 09:00; Status Future Hold Donepezil HCl (Aricept) 10 mg QHS GTB Last administered on 05/19/17 21:00; Admin Dose 10 MG; Start 05/06/17 at 21:00 Ferrous Sulfate (Ferrous Sulfate (Ec)) 325 mg BID PO Last administered on 09:09; Admin Dose 325 MG; Start 05/06/17 at 21:00 Folic Acid (Folic Acid) 1 mg DAILY GTB Last administered on 05/22/17 09:09; Admin Dose 1 MG; Start 05/07/17 at 09:00 Lactobacillus Acidophilus/ Rhamnosus (Culturelle) 1 cap QHS GTB Last administered on 05/19/17 21:00; Admin Dose 1 CAP; Start 05/06/17 at 21:00 Magnesium Hydroxide (Milk Of Mag) 30 ml Q24H GTB Last administered on 05/22/17 16:38; Admin Dose 30 ML; Start 05/06/17 at 17:00 Memantine (Namenda) 5 mg QAM GTB Last administered on 05/22/17 09:10; Admin Dose 5 MG; Start 05/07/17 at 09:00 Metoprolol Tartrate (Lopressor) 25 mg Q12H GTB Last administered on 05/18/17 16:47; Admin Dose 25 MG; Start 05/06/17 at 17:00; Status Future Hold Multivit/Ca Carb/ B Cmplx/FA/Prenat (Radhika-John) 1 tab DAILY GTB Last administered on 05/22/17 09:09; Admin Dose 1 TAB; Start 05/07/17 at 09:00 Pramipexole (Mirapex) 0.5 mg DAILY GTB Last administered on 05/22/17 09:09; Admin Dose 0.5 MG; Start 05/07/17 at 09:00 Sodium Biphosphate/ Sodium Phosphate (Fleet Enema Pediatric) 118 ml Q72H PRN [place] CONSTIPATION; Start 05/06/17 at 17:00 Citric Acid/ Sodium Citrate (Bicitra) 30 ml BID PO Last administered on 09:09; Admin Dose 30 ML; Start 05/06/17 at 21:00 Heparin Sodium (Porcine) (Heparin (5000 Units/0.5 ml)) 5,000 unit BID SC Last administered on 05/15/17 20:54; Admin Dose 5,000 UNIT; Start 05/06/17 at 21:00 ; Status Future Hold Nystatin (Nystatin Powder) 1 applic BID TOP Last administered on 05/22/17 20:08 ; Admin Dose 1 APPLIC; Start 05/09/17 at 21:00 Collagenase (Santyl) 1 applic DAILY TOP Last administered on 05/22/17 09:11; Admin Dose 1 APPLIC; Start 05/09/17 at 15:00 Collagenase 1 applic 1 applic PRN PRN TOP WOUND CARE; Start 05/09/17 at 14:00 Norepinephrine 16 mg/Dextrose 500 ml @ 1.87 mls/hr TITRATE IV ; Start 05/10/17 at 14:00 Dopamine HCl/ Dextrose 250 ml @ 6.848 mls/ hr TITRATE IV Last administered on 05/23/17 05:23; Admin Dose 17.119 MLS/HR; Start 05/10/17 at 18:30 Miscellaneous Information 1 ea NOTE XX ; Start 05/11/17 at 08:00 Glucose (Glutose) 15 gm Q15M PRN PO DECREASED GLUCOSE; Start 05/11/17 at 08:00 Glucose (Glutose) 22.5 gm Q15M PRN PO DECREASED GLUCOSE; Start 05/11/17 at 08: 00 Dextrose (D50w Syringe) 25 ml Q15M PRN IV DECREASED GLUCOSE Last administered on 05/22/17 16:38; Admin Dose 25 ML; Start 05/11/17 at 08:00 Dextrose (D50w Syringe) 50 ml Q15M PRN IV DECREASED GLUCOSE Last administered on 05/15/17 00:11; Admin Dose 50 ML; Start 05/11/17 at 08:00 Glucagon (Glucagen) 1 mg Q15M PRN IM DECREASED GLUCOSE; Start 05/11/17 at 08:00 Glucose (Glutose) 15 gm Q15M PRN BUCCAL DECREASED GLUCOSE; Start 05/11/17 at 08 :00 Epoetin Vasyl (Epogen (Esrd)) 10,000 units MoWeFr@17 SC Last administered on 05/22 18:49; Admin Dose 10,000 UNITS; Start 05/13/17 at 17:00 IV Flush (NS 10 ml) 10 ml PRN PRN IV IV PROTOCOL; Start 05/15/17 at 17:30 Pantoprazole 40 mg 40 mg BID@06,18 IV Last administered on 05/23/17 05:33; Admin Dose 40 MG; Start 05/16/17 at 10:00 Trimethoprim/ Sulfamethoxazole/ Dextrose (Bactrim/D5W) 260 ml @ 173.333 mls/hr Q8 IVPB Last administered on 05/23/17 05:50; Admin Dose 173.333 MLS/HR; Start 05/19/17 at 21:00 Amikacin Sulfate AMIKACIN PER PHARMACY NOTE XX ; Start 05/19/17 at 18:00 Cefepime HCl/ Sodium Chloride (Maxipime/NS) 100 ml @ 100 mls/hr Q24H IVPB Last administered on 05/22/17 20:02; Admin Dose 100 MLS/HR; Start 05/19/17 at 20 :00 Insulin Aspart (Novolog Insulin Pen) NOVOLOG *MILD* ALGORI... Q6 SC ; Start at 00:00 Midodrine 5 mg 5 mg TID@,,17 GTB Last administered on 05/22/17 16:38; Admin Dose 5 MG; Start 05/20/17 at 09:00 Dextrose/Sodium Chloride 1,000 ml @ 50 mls/hr Q20H IV Last administered on 05/23t 02:10; Admin Dose 50 MLS/HR; Start 05/21/17 at 10:00 Amikacin Sulfate/ Sodium Chloride (Amikacin/NS) 101.4 ml @ 101.4 mls/ hr Q96H IVPB ; Start 05/23/17 at 21:00 PENELOPE POPE May 23, 2017 07:40
--- NOTE | 2017-05-23 07:48 | PN ---
Date/Time of Note Date/Time of Note DATE: 05/23/17 TIME: 07:47 Assessment/Plan VTE Prophylaxis VTE Prophylaxis Intervention: other Lines/Catheters IV Catheter Type (from Nrs): PICC Line Central line still needed: Yes Urinary Cath still in place: Yes Reason Cath still needed: other (indicate) Assessment/Plan Chief Complaint/Hosp Course 1. hypoxemic resp failure: s/p trach 2. Pafib; currently in NSR 3. hx HTN: now in shock and hypotensive. : STILL requires DOPAMINE DRIP 4. encephalopathy 5. renal failure: f/u with nephrology 6. dysphagia 7. G tube malfunction/ infection 8. GI bleed 9. severe anemia will cont dopamine drip and titrate off once BP remains stable. cont resp care nutritional support. CONT ICU care as long as pt is on pressors correct lytes prn f/u renal fx. off of PLAVIX DUE TO ANEMIA/ BLEEDING awaiting GI for PEG replacement today THANK YOU. Problems: Subjective 24 Hr Interval Summary Free Text/Dictation CARDIOLOGY FOLLOW UP NOTE: Discussed with staff and rhythm was reviewed pt remains in NSR. NO AFIB seen NONVERBAL. pt is still ICU on low dose dopamine drip and still unable to wean off so far. OBJECTIVE: General: no acute distress. s/p trach on vent. HEENT: NC/AT. NECK: NO JVD. no stridor. S/P trach on vent CV: RRR. systolic murmur; no gallop or rubs. PULM: no wheezing anteriorly GI: SOFT, NT, ND, no rebound or guarding s/p dressing at the site of previous G tube Extremity: + B/L LE edema. no clubbing. neuro: opens her eyes to painful stimuli. does not follow commands Psych: calm rectal: deferred Exam/Review of Systems Vital Signs Vitals Vital Signs Date Time Temp Pulse Resp B/P Pulse Ox O2 Delivery O2 Flow Rate FiO2 05/23/17 07:18 97.9 83 12 112/100 99 Mechanical Ventilator 05/23/17 05:59 30 Intake and Output 05/22/17 05/22/17 05/23/17 15:00 23:00 07:00 Intake Total 945.733 ml 851.303 ml 811.363 ml Output Total 555 ml 271 ml 503 ml Balance 390.733 ml 580.303 ml 308.363 ml Results Result Diagram: 05/23/17 0500 05/23/17 0500 Results 24 hrs Laboratory Tests Test 05/22/17 09:24 05/22/17 11:30 05/22/17 13:12 05/22/17 16:35 Lab Scanned Report REFERENCE LAB REFERENCE LAB Bedside Glucose 78 69 L Test 05/22/17 16:45 05/22/17 18:45 05/23/17 00:50 05/23/17 05:00 Bedside Glucose 175 78 83 White Blood Count 8.9 # Red Blood Count 3.75 L Hemoglobin 10.9 L Hematocrit 34.2 L Mean Corpuscular Volume 91.2 Mean Corpuscular Hemoglobin 29.1 Mean Corpuscular Hemoglobin Concent 31.9 L Red Cell Distribution Width 16.8 H Platelet Count 241 Mean Platelet Volume 10.5 H Neutrophils % Lymphocytes % Monocytes % Eosinophils % Basophils % Nucleated Red Blood Cells % 0.0 Neutrophils # Lymphocytes # Monocytes # Eosinophils # Basophils # Nucleated Red Blood Cells # Prothrombin Time 17.6 #H Prothrombin Time Ratio 1.4 INR International Normalized Ratio 1.44 Activated Partial Thromboplast Time 39.5 H Sodium Level 138 Potassium Level 3.8 Chloride Level 104 Carbon Dioxide Level 24 Anion Gap 14 Blood Urea Nitrogen 31 H Creatinine 1.99 H Glucose Level 73 Calcium Level 8.4 Phosphorus Level 5.1 H Magnesium Level 2.1 Test 05/23/17 05:33 Bedside Glucose 76 Medications Medications Current Medications Atorvastatin Calcium (Lipitor) 10 mg QHS GTB Last administered on 05/19/17 21: 00; Admin Dose 10 MG; Start 05/06/17 at 21:00 Bisacodyl (Dulcolax Supp) 10 mg Q48H [place] Last administered on 05/22/17 16:38; Admin Dose 10 MG; Start 05/06/17 at 17:00 Carbidopa/Levodopa (Sinemet (25/ 100)) 1 tab TID GTB Last administered on 14:01; Admin Dose 1 TAB; Start 05/06/17 at 21:00 Clopidogrel Bisulfate (plaVIX) 75 mg DAILY GTB Last administered on 05/17/17 10:40; Admin Dose 75 MG; Start 05/07/17 at 09:00; Status Future Hold Donepezil HCl (Aricept) 10 mg QHS GTB Last administered on 05/19/17 21:00; Admin Dose 10 MG; Start 05/06/17 at 21:00 Ferrous Sulfate (Ferrous Sulfate (Ec)) 325 mg BID PO Last administered on 09:09; Admin Dose 325 MG; Start 05/06/17 at 21:00 Folic Acid (Folic Acid) 1 mg DAILY GTB Last administered on 05/22/17 09:09; Admin Dose 1 MG; Start 05/07/17 at 09:00 Lactobacillus Acidophilus/ Rhamnosus (Culturelle) 1 cap QHS GTB Last administered on 05/19/17 21:00; Admin Dose 1 CAP; Start 05/06/17 at 21:00 Magnesium Hydroxide (Milk Of Mag) 30 ml Q24H GTB Last administered on 05/22/17 16:38; Admin Dose 30 ML; Start 05/06/17 at 17:00 Memantine (Namenda) 5 mg QAM GTB Last administered on 05/22/17 09:10; Admin Dose 5 MG; Start 05/07/17 at 09:00 Metoprolol Tartrate (Lopressor) 25 mg Q12H GTB Last administered on 05/18/17 16:47; Admin Dose 25 MG; Start 05/06/17 at 17:00; Status Future Hold Multivit/Ca Carb/ B Cmplx/FA/Prenat (Radhika-John) 1 tab DAILY GTB Last administered on 05/22/17 09:09; Admin Dose 1 TAB; Start 05/07/17 at 09:00 Pramipexole (Mirapex) 0.5 mg DAILY GTB Last administered on 05/22/17 09:09; Admin Dose 0.5 MG; Start 05/07/17 at 09:00 Sodium Biphosphate/ Sodium Phosphate (Fleet Enema Pediatric) 118 ml Q72H PRN [place] CONSTIPATION; Start 05/06/17 at 17:00 Citric Acid/ Sodium Citrate (Bicitra) 30 ml BID PO Last administered on 09:09; Admin Dose 30 ML; Start 05/06/17 at 21:00 Heparin Sodium (Porcine) (Heparin (5000 Units/0.5 ml)) 5,000 unit BID SC Last administered on 05/15/17 20:54; Admin Dose 5,000 UNIT; Start 05/06/17 at 21:00 ; Status Future Hold Nystatin (Nystatin Powder) 1 applic BID TOP Last administered on 05/22/17 20:08 ; Admin Dose 1 APPLIC; Start 05/09/17 at 21:00 Collagenase (Santyl) 1 applic DAILY TOP Last administered on 05/22/17 09:11; Admin Dose 1 APPLIC; Start 05/09/17 at 15:00 Collagenase 1 applic 1 applic PRN PRN TOP WOUND CARE; Start 05/09/17 at 14:00 Norepinephrine 16 mg/Dextrose 500 ml @ 1.87 mls/hr TITRATE IV ; Start 05/10/17 at 14:00 Dopamine HCl/ Dextrose 250 ml @ 6.848 mls/ hr TITRATE IV Last administered on 05/23/17 05:23; Admin Dose 17.119 MLS/HR; Start 05/10/17 at 18:30 Miscellaneous Information 1 ea NOTE XX ; Start 05/11/17 at 08:00 Glucose (Glutose) 15 gm Q15M PRN PO DECREASED GLUCOSE; Start 05/11/17 at 08:00 Glucose (Glutose) 22.5 gm Q15M PRN PO DECREASED GLUCOSE; Start 05/11/17 at 08: 00 Dextrose (D50w Syringe) 25 ml Q15M PRN IV DECREASED GLUCOSE Last administered on 05/22/17 16:38; Admin Dose 25 ML; Start 05/11/17 at 08:00 Dextrose (D50w Syringe) 50 ml Q15M PRN IV DECREASED GLUCOSE Last administered on 05/15/17 00:11; Admin Dose 50 ML; Start 05/11/17 at 08:00 Glucagon (Glucagen) 1 mg Q15M PRN IM DECREASED GLUCOSE; Start 05/11/17 at 08:00 Glucose (Glutose) 15 gm Q15M PRN BUCCAL DECREASED GLUCOSE; Start 05/11/17 at 08 :00 Epoetin Vasyl (Epogen (Esrd)) 10,000 units MoWeFr@17 SC Last administered on 05/22 18:49; Admin Dose 10,000 UNITS; Start 05/13/17 at 17:00 IV Flush (NS 10 ml) 10 ml PRN PRN IV IV PROTOCOL; Start 05/15/17 at 17:30 Pantoprazole 40 mg 40 mg BID@06,18 IV Last administered on 05/23/17 05:33; Admin Dose 40 MG; Start 05/16/17 at 10:00 Trimethoprim/ Sulfamethoxazole/ Dextrose (Bactrim/D5W) 260 ml @ 173.333 mls/hr Q8 IVPB Last administered on 05/23/17 05:50; Admin Dose 173.333 MLS/HR; Start 05/19/17 at 21:00 Amikacin Sulfate AMIKACIN PER PHARMACY NOTE XX ; Start 05/19/17 at 18:00 Cefepime HCl/ Sodium Chloride (Maxipime/NS) 100 ml @ 100 mls/hr Q24H IVPB Last administered on 05/22/17 20:02; Admin Dose 100 MLS/HR; Start 05/19/17 at 20 :00 Insulin Aspart (Novolog Insulin Pen) NOVOLOG *MILD* ALGORI... Q6 SC ; Start at 00:00 Midodrine 5 mg 5 mg TID@,,17 GTB Last administered on 05/22/17 16:38; Admin Dose 5 MG; Start 05/20/17 at 09:00 Dextrose/Sodium Chloride 1,000 ml @ 50 mls/hr Q20H IV Last administered on 05/23 02:10; Admin Dose 50 MLS/HR; Start 05/21/17 at 10:00 Amikacin Sulfate/ Sodium Chloride (Amikacin/NS) 101.4 ml @ 101.4 mls/ hr Q96H IVPB ; Start 05/23/17 at 21:00 MILAGROS MUNOZ MD May 23, 2017 07:48
[2017-05-23] MEDS: NYSTATIN 30 GM POWDER BTL TOP SCH ×2 (08:21→20:58)
[2017-05-23] MEDS: COLLAGENASE 30 GM TUBE TOP SCH (08:22)
[2017-05-23] MEDS: HEPARIN 5,000 UNIT/0.5 ML VIAL SC SCH ×2 (08:24→21:04)
[2017-05-23] MEDS: MIDODRINE 5 MG TAB GTB SCH ×3 (08:29→17:00)
[2017-05-23] MEDS: PRAMIPEXOLE 0.25 MG TAB GTB SCH (08:29)
[2017-05-23] MEDS: MULTIVIT/CA CARB/B CMPLX/FA TAB GTB SCH (08:29)
[2017-05-23] MEDS: MEMANTINE 5 MG TAB GTB SCH (08:29)
[2017-05-23] MEDS: FOLIC ACID 1 MG TAB GTB SCH (08:29)
[2017-05-23] MEDS: CARBIDOPA/LEVODOPA (25/100) TAB GTB SCH ×3 (08:29→20:30)
[2017-05-23] MEDS: CITRIC ACID/NA CITRATE 30 ML CUP PO SCH ×2 (08:30→20:30)
[2017-05-23] MEDS: FERROUS SULFATE (EC) 325 MG TAB PO SCH ×2 (08:30→20:30)
--- NOTE | 2017-05-23 08:34 | PN ---
Date/Time of Note Date/Time of Note DATE: 05/23/17 TIME: 08:28 Assessment/Plan Lines/Catheters IV Catheter Type (from Nrsg): PICC Line Collazo in Place (from Nrsg): Yes Assessment/Plan Chief Complaint/Hosp Course 1. G-tube dislodgement: replaced with gjtube by GI, continued bilious drainage peristomal; Replacement of jtube by Dr. Degroot; still unable to be weaned from pressors -hospice/palliative -possible surgical placement of jtube when medically stable 2. Septic shock: multifactorial: 2/2: pneumonia + cellulitis + wounds; unable to be weaned from pressors -abx -supportive 3. Respiratory failure with trach: PNA with pulm edema; comfortable on vent -pulmonary toilet -abx -supportive 4.STARLA with CKD; +urine output; cr minimally improved -judicious fluids -renally dose meds -per nephrology 5. Normocytic anemia: previous coffee ground drainage peristoma;no acute bleed noted -monitor and transfuse as needed -continue Epogen 6. CHF -medical management 7. Diabetes -medical management 8. Acute encephalopathy with history of advanced dementia -supportive 9. Decubitus wound. Continue wound care. 10. Peristomal cellulitis 2/ #1; +pseudomonas: improving -local care -abx per sensitivity 11. Pancytopenia: improving Patient seen and examined in collaboration with Dr. Meliton Blackburn Problems: Subjective 24 Hr Interval Summary Still on pressors. copious drainage from ostomy. For gjtube placement today. Comfortable on vent. Non verbal indicators of pain not present. No fevers, chills, n/v/d, sz,. + bowel function. Exam/Review of Systems Vital Signs Vitals Vital Signs Date Time Temp Pulse Resp B/P Pulse Ox O2 Delivery O2 Flow Rate FiO2 05/23/17 07:18 97.9 83 12 112/100 99 Mechanical Ventilator 05/23/17 05:59 30 Intake and Output 05/22/17 05/22/17 05/23/17 15:00 23:00 07:00 Intake Total 945.733 ml 851.303 ml 811.363 ml Output Total 555 ml 271 ml 503 ml Balance 390.733 ml 580.303 ml 308.363 ml Exam Free Text/Dictation Constitutional: alert, non-verbal, No oriented Psych: confusion, withdraws from pain Head: atraumatic, normocephalic Eyes: nl sclera ENMT: mucosa pink and moist Neck: non-tender, other (trach), supple Respiratory: diminished Cardiovascular: edema Gastrointestinal: distended (mod), other (peristomal leaking bilious drainage: bilious drainage from g port to drainage bag tube pulled out part-way out), soft , nontender Musculoskeletal: No muscle tone Extremities: edema Neurological: No nl mental status, No nl speech Skin: other (abdominal/peristomal/breast fold redness, moisture damage/ cellulitis improving) Results Result Diagram: 05/23/17 05005/23/17 050 SHADI CALDERON NP May 23, 2017 08:34
[2017-05-23] MEDS: COLISTIMETHATE (25 MG/ML INHAL SYG) NEB SCH ×2 (09:08→19:56)
[2017-05-23 09:29] LABS: BASOPHIL # 0.2 10^3/ul (0.0-0.1); EOSINOPHILS # 1.3 10^3/ul (0.0-0.5); LYMPHOCYTES # 1.3 10^3/ul (0.8-2.9); MONOCYTE # 0.4 10^3/ul (0.3-0.9); NEUTROPHIL # 5.7 10^3/ul (1.6-7.5)
--- NOTE | 2017-05-23 10:02 | PN ---
DATE: 05/23/2017 SUBJECTIVE DATA: The patient is critically ill. Remains on presser support. Unable to be weaned off. Attempting to contact the patient's son to update him on his mother's condition. I have not been able to get in touch with the patient's son despite leaving multiple messages. Of note, Palliative Care was able to speak with the patient's son yesterday. No other events noted. OBJECTIVE DATA: VITAL SIGNS: Blood pressure 112/100, respirations 12, pulse 83, temperature 97.9. I's and O's: The patient input 2.68, 1.3 L out. HEENT: Head is normocephalic. NECK: Supple. HEART: Regular rate. LUNGS: Diminished breath sounds at the base. ABDOMEN: Soft, nontender to palpation. No rebound or guarding. EXTREMITIES: Negative for clubbing, cyanosis. Positive edema. DERMATOLOGIC: Clean. No rashes. MUSCULOSKELETAL: No joint effusion. NEUROLOGIC: No change in exam. MEDICATIONS: Reviewed. LABORATORY AND DIAGNOSTIC DATA: Sodium 138, potassium 3.8, chloride 104, BUN 31, creatinine 1.99, phosphorus 5.1, hemoglobin 8.9, hematocrit 34.2, platelet count is 241. ASSESSMENT AND PLAN: 1. Septic shock. Etiology secondary to pneumonia, cellulitis, wounds. The patient remains on presser support. Difficulty being weaned off. Will continue current treatment plan. Continue broad-spectrum antibiotics. Continue IV fluids. 2. Anemia. Monitor H and H levels. Continue Epogen. The patient is status post blood transfusion. 3. Dysphagia. The patient G-tube dislodged. Unable to be replaced. The patient is clinically unstable for a surgical placement. Continue to monitor. Follow up with GI. 4. Ventilator dependent respiratory failure. Vent settings reviewed. ABGs reviewed. Follow up with pulmonary. 5. Nonoliguric acute kidney injury on top of chronic kidney disease stage 4. Etiology to hemodynamics. Continue current treatment. Supportive care. Renally dose all medications. Continue medical management. 6. Encephalopathy and advanced dementia. Etiology, toxic metabolic. Continue to monitor. 7. Mineral bone disorder. Monitor calcium and phosphorus levels. 8. Coronary artery disease. Continue current treatment plan. 9. Diabetes. Continue current insulin regimen. 10. Decubitus wound. Continue wound care. DISPOSITION: Attempts have been made to contact the patient's son, informing him of his mother's condition. Please note, I spent over 35 minutes of critical care time with this patient. Dictated By: Brendan Rosas DO /junie/carla /Document#: [id number]
[2017-05-23] MEDS ORDERED: PROPOFOL 0 ML ONE (10:59)
[2017-05-23] MEDS ORDERED: LIDOCAINE 2% (SDV) 5 ML INJ ONE (10:59)
--- NOTE | 2017-05-23 12:10 | CONS ---
Date/Time of Note Date/Time of Note DATE: 05/23/17 TIME: 12:08 Assessment/Plan Assessment/Plan Additional Assessment/Plan Ventilator setting; AC of 14, tidal volume 500, PEEP of 5, 30% FiO2. Patient currently on dopamine drip at 4 mics per minute. Assessment and recommendations; 1. Patient admitted for sepsis from abdominal wall cellulitis after putting G- tube. Patient awaiting G-tube replacement. 2. Chronic respiratory failure. 3. Advanced dementia. 4. Renal insufficiency. Continue current treatment. Consultation Date/Type/Reason Admit Date/Time May 06, 2017 at 16:34 Initial Consult Date 05/10/17 Type of Consultation: Pulmonary/critical care 24 HR Interval Summary Free Text/Dictation Patient condition remains unchanged. Remains unresponsive. Still requiring low -dose dopamine for blood pressure maintenance. General exam; elderly woman, on ventilator via tracheostomy, unresponsive, currently in no distress. Exam/Review of Systems Vital Signs Vitals Vital Signs Date Time Temp Pulse Resp B/P Pulse Ox O2 Delivery O2 Flow Rate FiO2 05/23/17 12:00 97.4 75 15 104/44 98 Mechanical Ventilator 05/23/17 08:00 30 Intake and Output 05/22/17 05/22/17 05/23/17 15:00 23:00 07:00 Intake Total 945.733 ml 851.303 ml 875.024 ml Output Total 555 ml 271 ml 553 ml Balance 390.733 ml 580.303 ml 322.024 ml Exam HEENT exam; supple neck, no JVD. No lymphadenopathy. Midline trachea. No thyromegaly. Tracheostomy in place. Patient has multiple carious teeth. Chest exam; diminished breath sounds bilaterally. No added sound. S1-S2 audible, no murmurs. Abdomen exam; soft, dressing applied over epigastrium. There is continued improvement in abdominal wall cellulitis. Extremity exam; trace peripheral edema. Patient has a multiple ecchymosis involving all 4 extremity's. GLACIOLOGIST exam; patient remains unresponsive. Results Result Diagram: 05/23/17 0500 05/23/17 0500 Results 24 hrs Laboratory Tests Test 05/22/17 13:12 05/22/17 16:35 05/22/17 16:45 05/22/17 18:45 Bedside Glucose 78 69 L 175 78 Test 05/23/17 00:50 05/23/17 05:00 05/23/17 05:33 05/23/17 11:05 Bedside Glucose 83 76 77 White Blood Count 8.9 # Red Blood Count 3.75 L Hemoglobin 10.9 L Hematocrit 34.2 L Mean Corpuscular Volume 91.2 Mean Corpuscular Hemoglobin 29.1 Mean Corpuscular Hemoglobin Concent 31.9 L Red Cell Distribution Width 16.8 H Platelet Count 241 Mean Platelet Volume 10.5 H Neutrophils % 64.0 Lymphocytes % 15.0 Monocytes % 4.0 Eosinophils % 15.0 H Basophils % 2.0 Nucleated Red Blood Cells % 0.0 Neutrophils # 5.7 Lymphocytes # 1.3 Monocytes # 0.4 Eosinophils # 1.3 H Basophils # 0.2 H Nucleated Red Blood Cells # Prothrombin Time 17.6 #H Prothrombin Time Ratio 1.4 INR International Normalized Ratio 1.44 Activated Partial Thromboplast Time 39.5 H Sodium Level 138 Potassium Level 3.8 Chloride Level 104 Carbon Dioxide Level 24 Anion Gap 14 Blood Urea Nitrogen 31 H Creatinine 1.99 H Glucose Level 73 Calcium Level 8.4 Phosphorus Level 5.1 H Magnesium Level 2.1 Medications Medications Current Medications Atorvastatin Calcium (Lipitor) 10 mg QHS GTB Last administered on 05/19/17 21: 00; Admin Dose 10 MG; Start 05/06/17 at 21:00 Bisacodyl (Dulcolax Supp) 10 mg Q48H [place] Last administered on 05/22/17 16:38; Admin Dose 10 MG; Start 05/06/17 at 17:00 Carbidopa/Levodopa (Sinemet (25/ 100)) 1 tab TID GTB Last administered on 14:01; Admin Dose 1 TAB; Start 05/06/17 at 21:00 Clopidogrel Bisulfate (plaVIX) 75 mg DAILY GTB Last administered on 05/17/17 10:40; Admin Dose 75 MG; Start 05/07/17 at 09:00; Status Future Hold Donepezil HCl (Aricept) 10 mg QHS GTB Last administered on 05/19/17 21:00; Admin Dose 10 MG; Start 05/06/17 at 21:00 Ferrous Sulfate (Ferrous Sulfate (Ec)) 325 mg BID PO Last administered on 09:09; Admin Dose 325 MG; Start 05/06/17 at 21:00 Folic Acid (Folic Acid) 1 mg DAILY GTB Last administered on 05/22/17 09:09; Admin Dose 1 MG; Start 05/07/17 at 09:00 Lactobacillus Acidophilus/ Rhamnosus (Culturelle) 1 cap QHS GTB Last administered on 05/19/17 21:00; Admin Dose 1 CAP; Start 05/06/17 at 21:00 Magnesium Hydroxide (Milk Of Mag) 30 ml Q24H GTB Last administered on 05/22/17 16:38; Admin Dose 30 ML; Start 05/06/17 at 17:00 Memantine (Namenda) 5 mg QAM GTB Last administered on 05/22/17 09:10; Admin Dose 5 MG; Start 05/07/17 at 09:00 Metoprolol Tartrate (Lopressor) 25 mg Q12H GTB Last administered on 05/18/17 16:47; Admin Dose 25 MG; Start 05/06/17 at 17:00; Status Future Hold Multivit/Ca Carb/ B Cmplx/FA/Prenat (Radhika-John) 1 tab DAILY GTB Last administered on 05/22/17 09:09; Admin Dose 1 TAB; Start 05/07/17 at 09:00 Pramipexole (Mirapex) 0.5 mg DAILY GTB Last administered on 05/22/17 09:09; Admin Dose 0.5 MG; Start 05/07/17 at 09:00 Sodium Biphosphate/ Sodium Phosphate (Fleet Enema Pediatric) 118 ml Q72H PRN [place] CONSTIPATION; Start 05/06/17 at 17:00 Citric Acid/ Sodium Citrate (Bicitra) 30 ml BID PO Last administered on 09:09; Admin Dose 30 ML; Start 05/06/17 at 21:00 Nystatin (Nystatin Powder) 1 applic BID TOP Last administered on 05/23/17 08:21 ; Admin Dose 1 APPLIC; Start 05/09/17 at 21:00 Collagenase (Santyl) 1 applic DAILY TOP Last administered on 05/23/17 08:22; Admin Dose 1 APPLIC; Start 05/09/17 at 15:00 Collagenase 1 applic 1 applic PRN PRN TOP WOUND CARE; Start 05/09/17 at 14:00 Norepinephrine 16 mg/Dextrose 500 ml @ 1.87 mls/hr TITRATE IV ; Start 05/10/17 at 14:00 Dopamine HCl/ Dextrose 250 ml @ 6.848 mls/ hr TITRATE IV Last administered on 05/23/17 05:23; Admin Dose 17.119 MLS/HR; Start 05/10/17 at 18:30 Miscellaneous Information 1 ea NOTE XX ; Start 05/11/17 at 08:00 Glucose (Glutose) 15 gm Q15M PRN PO DECREASED GLUCOSE; Start 05/11/17 at 08:00 Glucose (Glutose) 22.5 gm Q15M PRN PO DECREASED GLUCOSE; Start 05/11/17 at 08: 00 Dextrose (D50w Syringe) 25 ml Q15M PRN IV DECREASED GLUCOSE Last administered on 05/22/17 16:38; Admin Dose 25 ML; Start 05/11/17 at 08:00 Dextrose (D50w Syringe) 50 ml Q15M PRN IV DECREASED GLUCOSE Last administered on 05/15/17 00:11; Admin Dose 50 ML; Start 05/11/17 at 08:00 Glucagon (Glucagen) 1 mg Q15M PRN IM DECREASED GLUCOSE; Start 05/11/17 at 08:00 Glucose (Glutose) 15 gm Q15M PRN BUCCAL DECREASED GLUCOSE; Start 05/11/17 at 08 :00 Epoetin Vasyl (Epogen (Esrd)) 10,000 units MoWeFr@17 SC Last administered on 05/22 18:49; Admin Dose 10,000 UNITS; Start 05/13/17 at 17:00 IV Flush (NS 10 ml) 10 ml PRN PRN IV IV PROTOCOL; Start 05/15/17 at 17:30 Pantoprazole 40 mg 40 mg BID@06,18 IV Last administered on 05/23/17 05:33; Admin Dose 40 MG; Start 05/16/17 at 10:00 Trimethoprim/ Sulfamethoxazole/ Dextrose (Bactrim/D5W) 260 ml @ 173.333 mls/hr Q8 IVPB Last administered on 05/23/17 05:50; Admin Dose 173.333 MLS/HR; Start 05/19/17 at 21:00 Amikacin Sulfate AMIKACIN PER PHARMACY NOTE XX ; Start 05/19/17 at 18:00 Cefepime HCl/ Sodium Chloride (Maxipime/NS) 100 ml @ 100 mls/hr Q24H IVPB Last administered on 05/22/17 20:02; Admin Dose 100 MLS/HR; Start 05/19/17 at 20 :00 Insulin Aspart NOVOLOG *MILD* ALGORI... Q6 SC ; Start 05/20/17 at 00:00 Dextrose/Sodium Chloride 1,000 ml @ 50 mls/hr Q20H IV Last administered on 05/23 02:10; Admin Dose 50 MLS/HR; Start 05/21/17 at 10:00 Amikacin Sulfate/ Sodium Chloride (Amikacin/NS) 101.4 ml @ 101.4 mls/ hr Q96H IVPB ; Start 05/23/17 at 21:00 Midodrine (Proamatine) 10 mg TID@09,13,17 GTB ; Start 05/23/17 at 09:00 Heparin Sodium (Porcine) 5000 unit 5,000 unit BID SC Last administered on 08:24; Admin Dose 5,000 UNIT; Start 05/23/17 at 09:00 Dextrose/Sodium Chloride (D5-1/2ns) 1,000 ml @ 75 mls/hr [id number] IV Last administered on 05/23/17 11:38; Admin Dose 75 MLS/HR; Start 05/23/17 at 11:30 SMITH RUIZ May 23, 2017 12:10
[2017-05-23] MEDS: MAGNESIUM HYDROXIDE 30ML CUP GTB SCH (17:00)
--- NOTE | 2017-05-23 19:23 | CONS ---
Date/Time of Note Date/Time of Note DATE: 05/23/17 TIME: 19:21 Assessment/Plan Assessment/Plan Chief Complaint/Hosp Course This 69-year-old female with a history of CVA vent dependent respiratory failure , was brought to the emergency room for the dislodgment of the GJ tube. Patient is nonverbal and no information can be obtained. No GI bleeding no chest pain no shortness of breath. Problems: Additional Assessment/Plan Additional Assessment/Plan 1. Dislodged of the GJ tube accidentally 2. Vent dependent respiratory failure 3. Chronic encephalopathy 4. Renal failure 5. Peripheral vascular disease 6. Anemia Plan GJ tube, could not be done. GI lab did not have GJ tube. Hospital did not have GJ tube I will bring it from other facility. Case discussed with Dr. Blackburn and told him to proceed with jejunostomy tube, [facility] does not have GJ tube and because of her anatomy it is technically difficult to prevent the leakage around G-tube site Jejunostomy tube as per surgeon. Awaiting for the blood pressure to be stabilized before surgery Resume feeding through the jejunostomy port connect gastrostomy port to gravity. Patient is tolerating feeding through the jejunostomy port Discussed with Dr. Blackburn for the placement of jejunostomy tube and closure of the G-tube site. Son wants everything to be done if surgery cannot be done then may place another GJ tube Could not get the consent from the son, so the procedure was deferred. Hopefully I can place GJ tube tomorrow Consultation Date/Type/Reason Admit Date/Time May 06, 2017 at 16:34 Type of Consultation: Pulmonary/critical care 24 HR Interval Summary Subjective hx not possible: pt non-verbal, pt critical Exam/Review of Systems Vital Signs Vitals Vital Signs Date Time Temp Pulse Resp B/P Pulse Ox O2 Delivery O2 Flow Rate FiO2 05/23/17 19:00 75 12 101/36 100 Mechanical Ventilator 05/23/17 17:20 30 05/23/17 16:00 97.4 Intake and Output 05/22/17 05/22/17 05/23/17 14:59 22:59 06:59 Intake Total 772.4 ml 844.408 ml 1048.391 ml Output Total 610 ml 203 ml 586 ml Balance 162.4 ml 641.408 ml 462.391 ml Exam Respiratory: other (Patient is on vent) Cardiovascular: nl pulses, regular rate and rhythm Gastrointestinal: other (GJ tube almost out) Neurological: unresponsive Results Result Diagram: 05/23/17 0500 05/23/17 0500 Results 24 hrs Laboratory Tests Test 05/23/17 00:50 05/23/17 05:00 05/23/17 05:33 05/23/17 11:05 Bedside Glucose 83 76 77 White Blood Count 8.9 # Red Blood Count 3.75 L Hemoglobin 10.9 L Hematocrit 34.2 L Mean Corpuscular Volume 91.2 Mean Corpuscular Hemoglobin 29.1 Mean Corpuscular Hemoglobin Concent 31.9 L Red Cell Distribution Width 16.8 H Platelet Count 241 Mean Platelet Volume 10.5 H Neutrophils % 64.0 Lymphocytes % 15.0 Monocytes % 4.0 Eosinophils % 15.0 H Basophils % 2.0 Nucleated Red Blood Cells % 0.0 Neutrophils # 5.7 Lymphocytes # 1.3 Monocytes # 0.4 Eosinophils # 1.3 H Basophils # 0.2 H Nucleated Red Blood Cells # Prothrombin Time 17.6 #H Prothrombin Time Ratio 1.4 INR International Normalized Ratio 1.44 Activated Partial Thromboplast Time 39.5 H Sodium Level 138 Potassium Level 3.8 Chloride Level 104 Carbon Dioxide Level 24 Anion Gap 14 Blood Urea Nitrogen 31 H Creatinine 1.99 H Glucose Level 73 Calcium Level 8.4 Phosphorus Level 5.1 H Magnesium Level 2.1 Test 05/23/17 17:25 Bedside Glucose 88 Medications Medications Current Medications Atorvastatin Calcium (Lipitor) 10 mg QHS GTB Last administered on 05/19/17 21: 00; Admin Dose 10 MG; Start 05/06/17 at 21:00 Bisacodyl (Dulcolax Supp) 10 mg Q48H [place] Last administered on 05/22/17 16:38; Admin Dose 10 MG; Start 05/06/17 at 17:00 Carbidopa/Levodopa (Sinemet (25/ 100)) 1 tab TID GTB Last administered on 14:01; Admin Dose 1 TAB; Start 05/06/17 at 21:00 Clopidogrel Bisulfate (plaVIX) 75 mg DAILY GTB Last administered on 05/17/17 10:40; Admin Dose 75 MG; Start 05/07/17 at 09:00; Status Future Hold Donepezil HCl (Aricept) 10 mg QHS GTB Last administered on 05/19/17 21:00; Admin Dose 10 MG; Start 05/06/17 at 21:00 Ferrous Sulfate (Ferrous Sulfate (Ec)) 325 mg BID PO Last administered on 09:09; Admin Dose 325 MG; Start 05/06/17 at 21:00 Folic Acid (Folic Acid) 1 mg DAILY GTB Last administered on 05/22/17 09:09; Admin Dose 1 MG; Start 05/07/17 at 09:00 Lactobacillus Acidophilus/ Rhamnosus (Culturelle) 1 cap QHS GTB Last administered on 05/19/17 21:00; Admin Dose 1 CAP; Start 05/06/17 at 21:00 Magnesium Hydroxide (Milk Of Mag) 30 ml Q24H GTB Last administered on 05/22/17 16:38; Admin Dose 30 ML; Start 05/06/17 at 17:00 Memantine (Namenda) 5 mg QAM GTB Last administered on 05/22/17 09:10; Admin Dose 5 MG; Start 05/07/17 at 09:00 Metoprolol Tartrate (Lopressor) 25 mg Q12H GTB Last administered on 05/18/17 16:47; Admin Dose 25 MG; Start 05/06/17 at 17:00; Status Future Hold Multivit/Ca Carb/ B Cmplx/FA/Prenat (Radhika-John) 1 tab DAILY GTB Last administered on 05/22/17 09:09; Admin Dose 1 TAB; Start 05/07/17 at 09:00 Pramipexole (Mirapex) 0.5 mg DAILY GTB Last administered on 05/22/17 09:09; Admin Dose 0.5 MG; Start 05/07/17 at 09:00 Sodium Biphosphate/ Sodium Phosphate (Fleet Enema Pediatric) 118 ml Q72H PRN [place] CONSTIPATION; Start 05/06/17 at 17:00 Citric Acid/ Sodium Citrate (Bicitra) 30 ml BID PO Last administered on 09:09; Admin Dose 30 ML; Start 05/06/17 at 21:00 Nystatin (Nystatin Powder) 1 applic BID TOP Last administered on 05/23/17 08:21 ; Admin Dose 1 APPLIC; Start 05/09/17 at 21:00 Collagenase (Santyl) 1 applic DAILY TOP Last administered on 05/23/17 08:22; Admin Dose 1 APPLIC; Start 05/09/17 at 15:00 Collagenase 1 applic 1 applic PRN PRN TOP WOUND CARE; Start 05/09/17 at 14:00 Norepinephrine 16 mg/Dextrose 500 ml @ 1.87 mls/hr TITRATE IV ; Start 05/10/17 at 14:00 Dopamine HCl/ Dextrose 250 ml @ 6.848 mls/ hr TITRATE IV Last administered on 05/23/17 05:23; Admin Dose 17.119 MLS/HR; Start 05/10/17 at 18:30 Miscellaneous Information 1 ea NOTE XX ; Start 05/11/17 at 08:00 Glucose (Glutose) 15 gm Q15M PRN PO DECREASED GLUCOSE; Start 05/11/17 at 08:00 Glucose (Glutose) 22.5 gm Q15M PRN PO DECREASED GLUCOSE; Start 05/11/17 at 08: 00 Dextrose (D50w Syringe) 25 ml Q15M PRN IV DECREASED GLUCOSE Last administered on 05/22/17 16:38; Admin Dose 25 ML; Start 05/11/17 at 08:00 Dextrose (D50w Syringe) 50 ml Q15M PRN IV DECREASED GLUCOSE Last administered on 05/15/17 00:11; Admin Dose 50 ML; Start 05/11/17 at 08:00 Glucagon (Glucagen) 1 mg Q15M PRN IM DECREASED GLUCOSE; Start 05/11/17 at 08:00 Glucose (Glutose) 15 gm Q15M PRN BUCCAL DECREASED GLUCOSE; Start 05/11/17 at 08 :00 Epoetin Vasyl (Epogen (Esrd)) 10,000 units MoWeFr@17 SC Last administered on 05/22 18:49; Admin Dose 10,000 UNITS; Start 05/13/17 at 17:00 IV Flush (NS 10 ml) 10 ml PRN PRN IV IV PROTOCOL; Start 05/15/17 at 17:30 Pantoprazole 40 mg 40 mg BID@06,18 IV Last administered on 05/23/17 17:29; Admin Dose 40 MG; Start 05/16/17 at 10:00 Trimethoprim/ Sulfamethoxazole/ Dextrose (Bactrim/D5W) 260 ml @ 173.333 mls/hr Q8 IVPB Last administered on 05/23/17 14:54; Admin Dose 173.333 MLS/HR; Start 05/19/17 at 21:00 Amikacin Sulfate AMIKACIN PER PHARMACY NOTE XX ; Start 05/19/17 at 18:00 Cefepime HCl/ Sodium Chloride (Maxipime/NS) 100 ml @ 100 mls/hr Q24H IVPB Last administered on 05/22/17 20:02; Admin Dose 100 MLS/HR; Start 05/19/17 at 20 :00 Insulin Aspart NOVOLOG *MILD* ALGORI... Q6 SC ; Start 05/20/17 at 00:00 Amikacin Sulfate/ Sodium Chloride (Amikacin/NS) 101.4 ml @ 101.4 mls/ hr Q96H IVPB ; Start 05/23/17 at 21:00 Midodrine (Proamatine) 10 mg TID@09,13,17 GTB ; Start 05/23/17 at 09:00 Heparin Sodium (Porcine) 5000 unit 5,000 unit BID SC Last administered on 08:24; Admin Dose 5,000 UNIT; Start 05/23/17 at 09:00 Dextrose/Sodium Chloride (D5-1/2ns) 1,000 ml @ 75 mls/hr [id number] IV Last administered on 05/23/17 11:38; Admin Dose 75 MLS/HR; Start 05/23/17 at 11:30 SYLWIA SY MD May 23, 2017 19:23
[2017-05-23] MEDS: CEFEPIME HCL 0.5 GM in SOD CHLORIDE 0.9% 100 ML IVPB SCH (20:26)
[2017-05-23] MEDS: DONEPEZIL 10 MG TAB GTB SCH (20:30)
[2017-05-23] MEDS: ATORVASTATIN 10 MG TAB GTB SCH (20:30)
[2017-05-23] MEDS: LACTOBACILLUS RHAMNOSUS CAP GTB SCH (20:30)
--- NOTE | 2017-05-23 21:00 | CONS ---
Date/Time of Note Date/Time of Note DATE: 05/23/17 TIME: 20:58 Assessment/Plan Assessment/Plan Chief Complaint/Hosp Course ID PROGRESS NOTE CURRENT ABX DAY => Colistin INH #8 +Cefepime #5 + Amikacin #5 + Bactrim IV #5 TOTAL ABX DAY # 14 Merrem#10 => DC 7/30 Vanco IV #10 => DC 7/30 24H INTERVAL SUMMARY * No new issues -- chronic vegetative -- remains critically ill -- VDRF poor prognosis * Clinically status quo -- pressors, obtunded => MICRO ABD RESULTED PSAR MDRO * REPEAT ABD WOUND CX: OUND CULTURE Final Organism 1 PSEUDOMONAS AERUGINOSA QUANTITY 2+ P.AERUG M.I.C. RX --------- --- AMIKACIN <=2 S AZTREONAM R CEFEPIME 8 S CEFTAZIDIME 16 I CIPROFLOXACIN >=4 R GENTAMICIN >=16 R IMIPENEM >=16 R LEVOFLOXACIN >=8 R TOBRAMYCIN 8 I PIPERACILLIN/TAZOBACTAM R * 05/14/17 SPUTUM: RESPIRATORY CULTURE FINAL P.AERUG STENMAL M.I.C. RX M.I.C. RX --------- --- --------- --- AMIKACIN <=2 S AZTREONAM R CEFEPIME 16 I CEFTAZIDIME 16 I CIPROFLOXACIN >=4 R GENTAMICIN 2 S IMIPENEM >=16 R LEVOFLOXACIN >=8 R >=8 R TOBRAMYCIN <=1 S TRIMETHOPRIM/SULFAMETHOXAZOLE 0.047 S PIPERACILLIN/TAZOBACTAM R PHYSICAL EXAMINATION: GENERAL: VSS,NAD, no fevers == Obese, eyes open HEENT: NGT->Secure / ETT secure NECK: Supple, trach-> midline CHEST: Equal chest rise bilaterally, Vented HEART: Pulse RRR ABDOMEN: Soft -> see photos large EC fistula residual healing scar, cellulitis w/(+)drainage EXTREMITIES: Warm, no edema SKIN: Warm, dry ID ASSESSMENT: 86 yo F w/PMHx Obesity,Parkinson's dementia w/chronic encephalopathy admitted with: 1. Sepsis w/shock, hypothermia, leukocytosis, lactic acidosis => multifactorial as below * 05/07/17 BCx (-) 2. Acute on chronic respiratory failure w/Trach 3. HCAP => Tracheobronchitis * CT (+)Large right pleural effusion/small left effusion * Respiratory Cx 05/14: * Organism 1 PSEUDOMONAS AERUGINOSA QUANTITY 3+ Organism 2 STENOTROPHOMONAS MALTOPHILIA QUANTITY 3+ 4. 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 5. UTI as per urinalysis on admission => urine was not sent for culture 6. Multiple chronic decub ulcers 7. RASH on admission s/p empiric Elimite x1 w/(-)skin scraping for scabies 8. Acute kidney injury 9. Diabetes. 10. Acute on chronic anemia. 11. 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 Continue ABX -- patient remains on aggressive course of medical care despite poor quality of life, at age 86 poor prognosis 2. ABX for MDRO with risk of target organ damage + breeding new MDRO ? Ethical Dilemma * Watch renal fx on Bactrim IV + Aminoglycoside -> MDRO leave limited options, the only other option is to start Colistin. 3. Doubt ABX Rx will reverse poor prognosis; consider palliative care approach . . . Problems: Consultation Date/Type/Reason Admit Date/Time May 06, 2017 at 16:34 Initial Consult Date 05/12/17 Type of Consultation: ID Exam/Review of Systems Vital Signs Vitals Vital Signs Date Time Temp Pulse Resp B/P Pulse Ox O2 Delivery O2 Flow Rate FiO2 05/23/17 19:00 75 12 101/36 100 Mechanical Ventilator 05/23/17 17:20 30 05/23/17 16:00 97.4 Intake and Output 05/22/17 05/22/17 05/23/17 15:00 23:00 07:00 Intake Total 945.733 ml 851.303 ml 875.024 ml Output Total 555 ml 271 ml 553 ml Balance 390.733 ml 580.303 ml 322.024 ml Results Result Diagram: 05/23/17 0500 05/23/17 0500 Results 24 hrs Laboratory Tests Test 05/23/17 00:50 05/23/17 05:00 05/23/17 05:33 05/23/17 11:05 Bedside Glucose 83 76 77 White Blood Count 8.9 # Red Blood Count 3.75 L Hemoglobin 10.9 L Hematocrit 34.2 L Mean Corpuscular Volume 91.2 Mean Corpuscular Hemoglobin 29.1 Mean Corpuscular Hemoglobin Concent 31.9 L Red Cell Distribution Width 16.8 H Platelet Count 241 Mean Platelet Volume 10.5 H Neutrophils % 64.0 Lymphocytes % 15.0 Monocytes % 4.0 Eosinophils % 15.0 H Basophils % 2.0 Nucleated Red Blood Cells % 0.0 Neutrophils # 5.7 Lymphocytes # 1.3 Monocytes # 0.4 Eosinophils # 1.3 H Basophils # 0.2 H Nucleated Red Blood Cells # Prothrombin Time 17.6 #H Prothrombin Time Ratio 1.4 INR International Normalized Ratio 1.44 Activated Partial Thromboplast Time 39.5 H Sodium Level 138 Potassium Level 3.8 Chloride Level 104 Carbon Dioxide Level 24 Anion Gap 14 Blood Urea Nitrogen 31 H Creatinine 1.99 H Glucose Level 73 Calcium Level 8.4 Phosphorus Level 5.1 H Magnesium Level 2.1 Test 05/23/17 17:25 Bedside Glucose 88 Medications Medications Current Medications Atorvastatin Calcium (Lipitor) 10 mg QHS GTB Last administered on 05/19/17t 21: 00; Admin Dose 10 MG; Start 05/06/17 at 21:00 Bisacodyl (Dulcolax Supp) 10 mg Q48H [place] Last administered on 05/22/17 16:38; Admin Dose 10 MG; Start 05/06/17 at 17:00 Carbidopa/Levodopa (Sinemet (25/ 100)) 1 tab TID GTB Last administered on 14:01; Admin Dose 1 TAB; Start 05/06/17 at 21:00 Clopidogrel Bisulfate (plaVIX) 75 mg DAILY GTB Last administered on 05/17/17 10:40; Admin Dose 75 MG; Start 05/07/17 at 09:00; Status Future Hold Donepezil HCl (Aricept) 10 mg QHS GTB Last administered on 05/19/17 21:00; Admin Dose 10 MG; Start 05/06/17 at 21:00 Ferrous Sulfate (Ferrous Sulfate (Ec)) 325 mg BID PO Last administered on 09:09; Admin Dose 325 MG; Start 05/06/17 at 21:00 Folic Acid (Folic Acid) 1 mg DAILY GTB Last administered on 05/22/17 09:09; Admin Dose 1 MG; Start 05/07/17 at 09:00 Lactobacillus Acidophilus/ Rhamnosus (Culturelle) 1 cap QHS GTB Last administered on 05/19/17 21:00; Admin Dose 1 CAP; Start 05/06/17 at 21:00 Magnesium Hydroxide (Milk Of Mag) 30 ml Q24H GTB Last administered on 05/22/17 16:38; Admin Dose 30 ML; Start 05/06/17 at 17:00 Memantine (Namenda) 5 mg QAM GTB Last administered on 05/22/17 09:10; Admin Dose 5 MG; Start 05/07/17 at 09:00 Metoprolol Tartrate (Lopressor) 25 mg Q12H GTB Last administered on 05/18/17 16:47; Admin Dose 25 MG; Start 05/06/17 at 17:00; Status Future Hold Multivit/Ca Carb/ B Cmplx/FA/Prenat (Radhika-John) 1 tab DAILY GTB Last administered on 05/22/17 09:09; Admin Dose 1 TAB; Start 05/07/17 at 09:00 Pramipexole (Mirapex) 0.5 mg DAILY GTB Last administered on 05/22/17 09:09; Admin Dose 0.5 MG; Start 05/07/17 at 09:00 Sodium Biphosphate/ Sodium Phosphate (Fleet Enema Pediatric) 118 ml Q72H PRN [place] CONSTIPATION; Start 05/06/17 at 17:00 Citric Acid/ Sodium Citrate (Bicitra) 30 ml BID PO Last administered on 09:09; Admin Dose 30 ML; Start 05/06/17 at 21:00 Nystatin (Nystatin Powder) 1 applic BID TOP Last administered on 05/23/17 08:21 ; Admin Dose 1 APPLIC; Start 05/09/17 at 21:00 Collagenase (Santyl) 1 applic DAILY TOP Last administered on 05/23/17 08:22; Admin Dose 1 APPLIC; Start 05/09/17 at 15:00 Collagenase 1 applic 1 applic PRN PRN TOP WOUND CARE; Start 05/09/17 at 14:00 Norepinephrine 16 mg/Dextrose 500 ml @ 1.87 mls/hr TITRATE IV ; Start 05/10/17 at 14:00 Dopamine HCl/ Dextrose 250 ml @ 6.848 mls/ hr TITRATE IV Last administered on 05/23/17 05:23; Admin Dose 17.119 MLS/HR; Start 05/10/17 at 18:30 Miscellaneous Information 1 ea NOTE XX ; Start 05/11/17 at 08:00 Glucose (Glutose) 15 gm Q15M PRN PO DECREASED GLUCOSE; Start 05/11/17 at 08:00 Glucose (Glutose) 22.5 gm Q15M PRN PO DECREASED GLUCOSE; Start 05/11/17 at 08: 00 Dextrose (D50w Syringe) 25 ml Q15M PRN IV DECREASED GLUCOSE Last administered on 05/22/17 16:38; Admin Dose 25 ML; Start 05/11/17 at 08:00 Dextrose (D50w Syringe) 50 ml Q15M PRN IV DECREASED GLUCOSE Last administered on 05/15/17 00:11; Admin Dose 50 ML; Start 05/11/17 at 08:00 Glucagon (Glucagen) 1 mg Q15M PRN IM DECREASED GLUCOSE; Start 7/22/17 at 08:00 Glucose (Glutose) 15 gm Q15M PRN BUCCAL DECREASED GLUCOSE; Start 05/11/17 at 08 :00 Epoetin Vasyl (Epogen (Esrd)) 10,000 units MoWeFr@17 SC Last administered on 05/22 18:49; Admin Dose 10,000 UNITS; Start 05/13/17 at 17:00 IV Flush (NS 10 ml) 10 ml PRN PRN IV IV PROTOCOL; Start 05/15/17 at 17:30 Pantoprazole 40 mg 40 mg BID@06,18 IV Last administered on 05/23/17 17:29; Admin Dose 40 MG; Start 05/16/17 at 10:00 Trimethoprim/ Sulfamethoxazole/ Dextrose (Bactrim/D5W) 260 ml @ 173.333 mls/hr Q8 IVPB Last administered on 05/23/17 14:54; Admin Dose 173.333 MLS/HR; Start 05/19/17 at 21:00 Amikacin Sulfate AMIKACIN PER PHARMACY NOTE XX ; Start 05/19/17 at 18:00 Cefepime HCl/ Sodium Chloride (Maxipime/NS) 100 ml @ 100 mls/hr Q24H IVPB Last administered on 05/23/17 20:26; Admin Dose 100 MLS/HR; Start 05/19/17 at 20 :00 Insulin Aspart NOVOLOG *MILD* ALGORI... Q6 SC ; Start 05/20/17 at 00:00 Amikacin Sulfate/ Sodium Chloride (Amikacin/NS) 101.4 ml @ 101.4 mls/ hr Q96H IVPB ; Start 05/23/17 at 21:00 Midodrine (Proamatine) 10 mg TID@,,17 GTB ; Start 05/23/17 at 09:00 Heparin Sodium (Porcine) 5000 unit 5,000 unit BID SC Last administered on 08:24; Admin Dose 5,000 UNIT; Start 05/23/17 at 09:00 Dextrose/Sodium Chloride (D5-1/2ns) 1,000 ml @ 75 mls/hr [id number] IV Last administered on 05/23/17 11:38; Admin Dose 75 MLS/HR; Start 05/23/17 at 11:30 SYLVIA PADRON NP May 23, 2017 20:59
[2017-05-23] MEDS: AMIKACIN 350 MG in SOD CHLORIDE 0.9% 100 ML IVPB SCH (23:29)
[2017-05-24] VITALS (91 sets, daily range): BP systolic 84–118; BP diastolic 32–71; PULSE 71–85; RESP 12–23
[2017-05-24 05:18] LABS: BASOPHILS % 0.3 % (0.0-2.0); EOSINOPHILS # 0.8 10^3/ul (0.0-0.5); EOSINOPHILS % 8.7 % (0.0-7.0); HEMATOCRIT 34.3 % (37.0-47.0); HEMOGLOBIN 11.1 g/dl (12.0-16.0); LYMPHOCYTES # 1.2 10^3/ul (0.8-2.9); LYMPHOCYTES % 13.7 % (15.0-51.0); MEAN CORPUSCULAR HEMOGLOBIN 29.8 pg (29.0-33.0); MEAN CORPUSCULAR HGB CONC 32.4 g/dl (32.0-37.0); MEAN PLATELET VOLUME 10.6 fl (7.4-10.4); MONOCYTE # 0.4 10^3/ul (0.3-0.9); MONOCYTES % 4.4 % (0.0-11.0); NEUTROPHIL # 6.3 10^3/ul (1.6-7.5); NEUTROPHILS % 72.4 % (39.0-77.0); PLATELET COUNT 233 10^3/UL (140-415); RED BLOOD COUNT 3.73 10^6/ul (4.20-5.40); RED CELL DISTRIBUTION WIDTH 16.5 % (11.5-14.5); WHITE BLOOD COUNT 8.7 10^3/ul (4.8-10.8)
[2017-05-24 05:53] LABS: CALCIUM 7.9 mg/dl (8.4-10.2); CREATININE 1.77 mg/dl (0.44-1.00); MAGNESIUM 2.1 mg/dl (1.7-2.5); PHOSPHORUS 5.1 mg/dl (2.5-4.9); POTASSIUM 3.7 mmol/L (3.5-5.1)
[2017-05-24] MEDS: INSULIN ASPART [NOVOLOG] 3 ML PEN SC SCH ×3 (06:00→18:00)
[2017-05-24] MEDS: TRIMETHOPRIM/SULFAMETHOXAZOLE 10 ML in DEXTROSE 5% 250 ML IVPB SCH ×3 (06:20→22:04)
[2017-05-24] MEDS: DEXTROSE 5%-0.45% NACL 1,000 ML IV SCH ×2 (06:20→14:10)
[2017-05-24] MEDS: PANTOPRAZOLE 40 MG INJ IV SCH ×2 (06:20→18:52)
[2017-05-24] MEDS: PRAMIPEXOLE 0.25 MG TAB GTB SCH (08:05)
[2017-05-24] MEDS: FOLIC ACID 1 MG TAB GTB SCH (08:05)
[2017-05-24] MEDS: MEMANTINE 5 MG TAB GTB SCH (08:05)
[2017-05-24] MEDS: MULTIVIT/CA CARB/B CMPLX/FA TAB GTB SCH (08:06)
[2017-05-24] MEDS: FERROUS SULFATE (EC) 325 MG TAB PO SCH ×2 (08:06→21:00)
[2017-05-24] MEDS: CARBIDOPA/LEVODOPA (25/100) TAB GTB SCH ×3 (08:06→21:00)
[2017-05-24] MEDS: CITRIC ACID/NA CITRATE 30 ML CUP PO SCH ×2 (08:06→21:00)
[2017-05-24] MEDS: MIDODRINE 5 MG TAB GTB SCH ×3 (08:06→17:00)
[2017-05-24] MEDS: COLISTIMETHATE (25 MG/ML INHAL SYG) NEB SCH ×2 (08:28→09:14)
--- NOTE | 2017-05-24 08:44 | PN ---
DATE: 05/24/2017 SUBJECTIVE: The patient remains critically on pressor support. The patient is pending possible G-tube placement today. No other events noted. Please note, I again attempted to contact patient's son, Raymundo, informing him of his mother's condition. The patient is an has not returned my call. OBJECTIVE DATA: VITAL SIGNS: Blood pressure 99/51, respirations 14, pulse 75, temperature 98.6. HEENT: Head is normocephalic. Neck shows a trach. HEART: Regular rate. LUNGS: Diminished breath sounds at the base. ABDOMEN: Soft, nontender to palpation. Positive PEG. EXTREMITIES: Negative for clubbing, cyanosis. Positive edema. Positive contractures. DERMATOLOGIC: No rashes, no positive wounds. NEUROLOGIC: No change in exam. MEDICATIONS: Reviewed. LABORATORY AND DIAGNOSTIC DATA: White count 8.7, hemoglobin 9.1, hematocrit 34.3, platelet count 233. Sodium 137, potassium 3.7, chloride 103, BUN 20, creatinine 0.77, calcium 7.9, phosphorous 5.1. ASSESSMENT AND PLAN: 1. Septic shock. Etiology secondary to pneumonia, cellulitis and underlying wounds. The patient is on pressor support, difficulty being weaned off. Will continue current treatment plan. Continue broad-spectrum antibiotics. Continue IV fluids. 2. Anemia. Monitor H and H levels. Patient is Epogen. The patient is status post blood transfusion. 3. Dysphagia. The patient is pending possible G-tube placement today by GI. Will continue to monitor. 4. Ventilator dependent respiratory failure. Vent settings have been reviewed. ABGs reviewed. Continue to monitor. Follow up with pulmonary. 5. Nonoliguric acute kidney injury on top of chronic kidney disease stage 4, etiology secondary to hemodynamics. Continue current treatment. Supportive care. Renal dose all medications. Avoid nephrotoxins. 6. Encephalopathy and advanced dementia. Etiology is toxic metabolic. Continue to monitor. 7. Mineral bone disorder. Monitor calcium and phosphorus levels. 8. Coronary artery disease. Continue current treatment plan. 9. Diabetes. Continue current insulin regimen. 10. Decubitus wound. Continue wound care. 11. Gastrointestinal and deep venous thrombosis prophylaxis. Continue PPI and heparin. Please note, I spent over 35 minutes of critical care time with this patient. Dictated By: Brendan Rosas DO /junie/ /Document#: [id number]
[2017-05-24] MEDS: HEPARIN 5,000 UNIT/0.5 ML VIAL SC SCH ×2 (09:59→21:27)
[2017-05-24] MEDS: NYSTATIN 30 GM POWDER BTL TOP SCH ×2 (10:00→21:21)
[2017-05-24] MEDS: COLLAGENASE 30 GM TUBE TOP SCH (10:02)
--- NOTE | 2017-05-24 11:43 | PN ---
Date/Time of Note Date/Time of Note DATE: 05/24/17 TIME: 10:35 Assessment/Plan Lines/Catheters IV Catheter Type (from Nrs): PICC Line Collazo in Place (from Nrs): Yes Assessment/Plan Chief Complaint/Hosp Course 1. G-tube dislodgement: replaced with gjtube by GI, continued bilious drainage peristomal; Replacement of jtube by Dr. Degroot pending; still unable to be weaned from pressors -hospice/palliative -possible surgical placement of jtube when medically stable 2. Septic shock: multifactorial: 2/2: pneumonia + cellulitis + wounds; unable to be weaned from pressors -abx -supportive 3. Respiratory failure with trach: PNA with pulm edema; comfortable on vent -pulmonary toilet -abx -supportive 4.STARLA with CKD; +urine output; cr minimally improved -judicious fluids -renally dose meds -per nephrology 5. Normocytic anemia: previous coffee ground drainage peristoma;no acute bleed noted -monitor and transfuse as needed -continue Epogen 6. CHF -medical management 7. Diabetes -medical management 8. Acute encephalopathy with history of advanced dementia -supportive 9. Decubitus wound. -continue wound care. 10. Peristomal cellulitis 2/2 #1; +pseudomonas: improving -local care -abx per sensitivity 11. Pancytopenia: improving Patient seen and examined in collaboration with Dr. Meliton Blackburn. Thank you. Problems: Subjective 24 Hr Interval Summary Continues on pressors. Pending gjtube placement. Continues to have peristomal bilious drainage. Comfortable on vent. Hypothermic. No fevers, chills, diarrhea. Exam/Review of Systems Vital Signs Vitals Vital Signs Date Time Temp Pulse Resp B/P Pulse Ox O2 Delivery O2 Flow Rate FiO2 05/24/17 08:45 71 12 101/37 100 05/24/17 08:00 96.3 Mechanical Ventilator 05/24/17 05:50 30 Intake and Output 05/23/17 05/23/17 05/24/17 15:00 23:00 07:00 Intake Total 744.288 ml 874.977 ml 757.067 ml Output Total 750 ml 725 ml 625 ml Balance -5.712 ml 149.977 ml 132.067 ml Exam Free Text/Dictation Constitutional: alert, non-verbal, No oriented Psych: confusion, withdraws from pain Head: atraumatic, normocephalic Eyes: nl sclera ENMT: mucosa pink and moist Neck: non-tender, other (trach), supple Respiratory: diminished Cardiovascular: edema Gastrointestinal: distended (mod), other (peristomal still leaking bilious drainage: tube pulled out part-way out), soft, nontender Musculoskeletal: No muscle tone Extremities: edema Neurological: No nl mental status, No nl speech Skin: other (abdominal/peristomal/breast fold redness, moisture damage/ cellulitis improving) Results Result Diagram: 05/24/1741905/24/17419 SHADI CALDERON NP May 24, 2017 11:43
--- NOTE | 2017-05-24 12:08 | CONS ---
Date/Time of Note Date/Time of Note DATE: 05/24/17 TIME: 12:05 Assessment/Plan Assessment/Plan Additional Assessment/Plan Ventilator setting; AC of 14, tidal volume 500, PEEP of 5, 30% FiO2. Assessment and recommendations; 1. Patient with history of chronic respiratory failure and advanced dementia admitted for abdominal wall cellulitis after pulling out G-tube. Currently on appropriate antibiotic regimen. 2. Chronic renal insufficiency. Next Continue current treatment. Awaiting G-tube replacement once abdominal wall cellulitis improves to the point where it would facilitate the procedure. Consultation Date/Type/Reason Admit Date/Time May 06, 2017 at 16:34 Initial Consult Date 05/10/17 Type of Consultation: Coronary/critical care 24 HR Interval Summary Free Text/Dictation Patient condition remains unchanged. Remains unresponsive. Remains chronically ventilator dependent. Has remained hemodynamically stable. General exam; elderly woman, on ventilator via tracheostomy, currently in no distress. Remains unresponsive. Exam/Review of Systems Vital Signs Vitals Vital Signs Date Time Temp Pulse Resp B/P Pulse Ox O2 Delivery O2 Flow Rate FiO2 05/24/17 08:45 71 12 101/37 100 05/24/17 08:00 96.3 Mechanical Ventilator 05/24/17 05:50 30 Intake and Output 05/23/17 05/23/17 05/24/17 15:00 23:00 07:00 Intake Total 744.288 ml 874.977 ml 757.067 ml Output Total 750 ml 725 ml 625 ml Balance -5.712 ml 149.977 ml 132.067 ml Exam HEENT exam; supple neck, no JVD. No lymphadenopathy. Midline trachea. No thyromegaly. Tracheostomy in place. Patient has a multiple carious teeth. Chest exam; diminished but clear breath sounds. S1-S2 audible, no murmurs. Regular rhythm. Abdomen exam; soft, multiple well-healed scars are present. There is improvement in abdominal wall cellulitis. No organomegaly felt. Extremity exam; trace peripheral edema. Pedal ecchymosis are present in all 4 extremities. [employer] exam; patient remains unresponsive. Results Result Diagram: 05/24/17 0420 05/24/17 0420 Results 24 hrs Laboratory Tests Test 05/23/17 17:25 05/23/17 23:30 05/24/17 04:20 05/24/17 06:19 Bedside Glucose 88 89 80 White Blood Count 8.7 Red Blood Count 3.73 L Hemoglobin 11.1 L Hematocrit 34.3 L Mean Corpuscular Volume 92.0 Mean Corpuscular Hemoglobin 29.8 Mean Corpuscular Hemoglobin Concent 32.4 Red Cell Distribution Width 16.5 H Platelet Count 233 Mean Platelet Volume 10.6 H Neutrophils % 72.4 Lymphocytes % 13.7 L Monocytes % 4.4 Eosinophils % 8.7 H Basophils % 0.3 Nucleated Red Blood Cells % 0.0 Neutrophils # 6.3 Lymphocytes # 1.2 Monocytes # 0.4 Eosinophils # 0.8 H Basophils # 0.0 Nucleated Red Blood Cells # 0.0 Sodium Level 137 Potassium Level 3.7 Chloride Level 103 Carbon Dioxide Level 20 L Anion Gap 18 H Blood Urea Nitrogen 27 H Creatinine 1.77 H Glucose Level 181 # Calcium Level 7.9 L Phosphorus Level 5.1 H Magnesium Level 2.1 Test 05/24/17 11:41 Bedside Glucose 82 Medications Medications Current Medications Atorvastatin Calcium (Lipitor) 10 mg QHS GTB Last administered on 05/19/17 21: 00; Admin Dose 10 MG; Start 05/06/17 at 21:00 Bisacodyl (Dulcolax Supp) 10 mg Q48H [place] Last administered on 05/22/17 16:38; Admin Dose 10 MG; Start 05/06/17 at 17:00 Carbidopa/Levodopa (Sinemet (25/ 100)) 1 tab TID GTB Last administered on 14:01; Admin Dose 1 TAB; Start 05/06/17 at 21:00 Clopidogrel Bisulfate (plaVIX) 75 mg DAILY GTB Last administered on 05/17/17 10:40; Admin Dose 75 MG; Start 05/07/17 at 09:00; Status Future Hold Donepezil HCl (Aricept) 10 mg QHS GTB Last administered on 05/19/17 21:00; Admin Dose 10 MG; Start 05/06/17 at 21:00 Ferrous Sulfate (Ferrous Sulfate (Ec)) 325 mg BID PO Last administered on 09:09; Admin Dose 325 MG; Start 05/06/17 at 21:00 Folic Acid (Folic Acid) 1 mg DAILY GTB Last administered on 05/22/17 09:09; Admin Dose 1 MG; Start 05/07/17 at 09:00 Lactobacillus Acidophilus/ Rhamnosus (Culturelle) 1 cap QHS GTB Last administered on 05/19/17 21:00; Admin Dose 1 CAP; Start 05/06/17 at 21:00 Magnesium Hydroxide (Milk Of Mag) 30 ml Q24H GTB Last administered on 05/22/17 16:38; Admin Dose 30 ML; Start 05/06/17 at 17:00 Memantine (Namenda) 5 mg QAM GTB Last administered on 05/22/17 09:10; Admin Dose 5 MG; Start 05/07/17 at 09:00 Metoprolol Tartrate (Lopressor) 25 mg Q12H GTB Last administered on 05/18/17 16:47; Admin Dose 25 MG; Start 05/06/17 at 17:00; Status Future Hold Multivit/Ca Carb/ B Cmplx/FA/Prenat (Radhika-John) 1 tab DAILY GTB Last administered on 05/22/17 09:09; Admin Dose 1 TAB; Start 05/07/17 at 09:00 Pramipexole (Mirapex) 0.5 mg DAILY GTB Last administered on 05/22/17 09:09; Admin Dose 0.5 MG; Start 05/07/17 at 09:00 Sodium Biphosphate/ Sodium Phosphate (Fleet Enema Pediatric) 118 ml Q72H PRN [place] CONSTIPATION; Start 05/06/17 at 17:00 Citric Acid/ Sodium Citrate (Bicitra) 30 ml BID PO Last administered on 09:09; Admin Dose 30 ML; Start 05/06/17 at 21:00 Nystatin (Nystatin Powder) 1 applic BID TOP Last administered on 05/24/17 10:00 ; Admin Dose 1 APPLIC; Start 05/09/17 at 21:00 Collagenase (Santyl) 1 applic DAILY TOP Last administered on 05/24/17 10:02; Admin Dose 1 APPLIC; Start 05/09/17 at 15:00 Collagenase 1 applic 1 applic PRN PRN TOP WOUND CARE; Start 05/09/17 at 14:00 Norepinephrine 16 mg/Dextrose 500 ml @ 1.87 mls/hr TITRATE IV ; Start 05/10/17 at 14:00 Dopamine HCl/ Dextrose 250 ml @ 6.848 mls/ hr TITRATE IV Last administered on 05/23/17 23:39; Admin Dose 17.119 MLS/HR; Start 05/10/17 at 18:30 Miscellaneous Information 1 ea NOTE XX ; Start 05/11/17 at 08:00 Glucose (Glutose) 15 gm Q15M PRN PO DECREASED GLUCOSE; Start 05/11/17 at 08:00 Glucose (Glutose) 22.5 gm Q15M PRN PO DECREASED GLUCOSE; Start 05/11/17 at 08: 00 Dextrose (D50w Syringe) 25 ml Q15M PRN IV DECREASED GLUCOSE Last administered on 05/22/17 16:38; Admin Dose 25 ML; Start 05/11/17 at 08:00 Dextrose (D50w Syringe) 50 ml Q15M PRN IV DECREASED GLUCOSE Last administered on 05/15/17 00:11; Admin Dose 50 ML; Start 05/11/17 at 08:00 Glucagon (Glucagen) 1 mg Q15M PRN IM DECREASED GLUCOSE; Start 05/11/17 at 08:00 Glucose (Glutose) 15 gm Q15M PRN BUCCAL DECREASED GLUCOSE; Start 05/11/17 at 08 :00 Epoetin Vasyl (Epogen (Esrd)) 10,000 units MoWeFr@17 [place] Last administered on 05/22 18:49; Admin Dose 10,000 UNITS; Start 05/13/17 at 17:00 IV Flush (NS 10 ml) 10 ml PRN PRN IV IV PROTOCOL; Start 05/15/17 at 17:30 Pantoprazole 40 mg 40 mg BID@06,18 IV Last administered on 05/24/17 06:20; Admin Dose 40 MG; Start 05/16/17 at 10:00 Trimethoprim/ Sulfamethoxazole/ Dextrose (Bactrim/D5W) 260 ml @ 173.333 mls/hr Q8 IVPB Last administered on 05/24/17 06:20; Admin Dose 173.333 MLS/HR; Start 05/19/17 at 21:00 Amikacin Sulfate AMIKACIN PER PHARMACY NOTE XX ; Start 05/19/17 at 18:00 Cefepime HCl/ Sodium Chloride (Maxipime/NS) 100 ml @ 100 mls/hr Q24H IVPB Last administered on 05/23/17 20:26; Admin Dose 100 MLS/HR; Start 05/19/17 at 20 :00 Insulin Aspart NOVOLOG *MILD* ALGORI... Q6 SC ; Start 05/20/17 at 00:00 Amikacin Sulfate/ Sodium Chloride (Amikacin/NS) 101.4 ml @ 101.4 mls/ hr Q96H IVPB Last administered on 05/23/17 23:29; Admin Dose 101.4 MLS/HR; Start at 21:00 Midodrine (Proamatine) 10 mg TID@09,,17 GTB ; Start 05/23/17 at 09:00 Heparin Sodium (Porcine) 5000 unit 5,000 unit BID SC Last administered on 09:59; Admin Dose 5,000 UNIT; Start 05/23/17 at 09:00 Dextrose/Sodium Chloride (D5-1/2ns) 1,000 ml @ 75 mls/hr [id number] IV Last administered on 05/24/17 06:20; Admin Dose 75 MLS/HR; Start 05/23/17 at 11:30 SMITH RUIZ May 24, 2017 12:07
--- NOTE | 2017-05-24 12:24 | CONS ---
Date/Time of Note Date/Time of Note DATE: 05/24/17 TIME: 12:22 Assessment/Plan Assessment/Plan Chief Complaint/Hosp Course ID PROGRESS NOTE CURRENT ABX DAY => Colistin INH #9 +Cefepime #6 + Amikacin #6 + Bactrim IV #6 TOTAL ABX DAY # 15 Merrem#10 => DC 7/30 Vanco IV #10 => DC 7/30 24H INTERVAL SUMMARY * Chronic encephalopath -- nonverbal on the Vent, no fevers, WBC normalized * Clinically status quo -- pressors, obtunded => MICRO ABD RESULTED PSAR MDRO * REPEAT ABD WOUND CX: OUND CULTURE Final Organism 1 PSEUDOMONAS AERUGINOSA QUANTITY 2+ P.AERUG M.I.C. RX --------- --- AMIKACIN <=2 S AZTREONAM R CEFEPIME 8 S CEFTAZIDIME 16 I CIPROFLOXACIN >=4 R GENTAMICIN >=16 R IMIPENEM >=16 R LEVOFLOXACIN >=8 R TOBRAMYCIN 8 I PIPERACILLIN/TAZOBACTAM R * 05/14/17 SPUTUM: RESPIRATORY CULTURE FINAL P.AERUG STENMAL M.I.C. RX M.I.C. RX --------- --- --------- --- AMIKACIN <=2 S AZTREONAM R CEFEPIME 16 I CEFTAZIDIME 16 I CIPROFLOXACIN >=4 R GENTAMICIN 2 S IMIPENEM >=16 R LEVOFLOXACIN >=8 R >=8 R TOBRAMYCIN <=1 S TRIMETHOPRIM/SULFAMETHOXAZOLE 0.047 S PIPERACILLIN/TAZOBACTAM R PHYSICAL EXAMINATION: GENERAL: VSS,NAD, no fevers == Obese, eyes open HEENT: NGT->Secure / ETT secure NECK: Supple, trach-> midline CHEST: Equal chest rise bilaterally, Vented HEART: Pulse RRR ABDOMEN: Soft -> see photos large EC fistula residual healing scar, cellulitis w/(+)drainage EXTREMITIES: Warm, no edema SKIN: Warm, dry ID ASSESSMENT: 86 yo F w/PMHx Obesity,Parkinson's dementia w/chronic encephalopathy admitted with: 1. Sepsis w/shock, hypothermia, leukocytosis, lactic acidosis => multifactorial as below * 05/07/17 BCx (-) 2. Acute on chronic respiratory failure w/Trach 3. HCAP => Tracheobronchitis * CT (+)Large right pleural effusion/small left effusion * Respiratory Cx 05/14: * Organism 1 PSEUDOMONAS AERUGINOSA QUANTITY 3+ Organism 2 STENOTROPHOMONAS MALTOPHILIA QUANTITY 3+ 4. 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 5. UTI as per urinalysis on admission => urine was not sent for culture 6. Multiple chronic decub ulcers 7. RASH on admission s/p empiric Elimite x1 w/(-)skin scraping for scabies 8. Acute kidney injury 9. Diabetes. 10. Acute on chronic anemia. 11. 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 Continue ABX -- patient remains on aggressive course of medical care despite poor quality of life, at age 86 poor prognosis 2. ABX for MDRO with risk of target organ damage + breeding new MDRO ? Ethical Dilemma * Watch renal fx on Bactrim IV + Aminoglycoside -> MDRO leave limited options, the only other option is to start Colistin. 3. Doubt ABX Rx will reverse poor prognosis; consider palliative care approach . . . Problems: Consultation Date/Type/Reason Admit Date/Time May 06, 2017 at 16:34 Initial Consult Date 05/12/17 Type of Consultation: ID Exam/Review of Systems Vital Signs Vitals Vital Signs Date Time Temp Pulse Resp B/P Pulse Ox O2 Delivery O2 Flow Rate FiO2 05/24/17 08:45 71 12 101/37 100 05/24/17 08:00 96.3 Mechanical Ventilator 05/24/17 05:50 30 Intake and Output 05/23/17 05/23/17 05/24/17 15:00 23:00 07:00 Intake Total 744.288 ml 874.977 ml 757.067 ml Output Total 750 ml 725 ml 625 ml Balance -5.712 ml 149.977 ml 132.067 ml Results Result Diagram: 05/24/17 0420 05/24/17 0420 Results 24 hrs Laboratory Tests Test 05/23/17 17:25 05/23/17 23:30 05/24/17 04:20 05/24/17 06:19 Bedside Glucose 88 89 80 White Blood Count 8.7 Red Blood Count 3.73 L Hemoglobin 11.1 L Hematocrit 34.3 L Mean Corpuscular Volume 92.0 Mean Corpuscular Hemoglobin 29.8 Mean Corpuscular Hemoglobin Concent 32.4 Red Cell Distribution Width 16.5 H Platelet Count 233 Mean Platelet Volume 10.6 H Neutrophils % 72.4 Lymphocytes % 13.7 L Monocytes % 4.4 Eosinophils % 8.7 H Basophils % 0.3 Nucleated Red Blood Cells % 0.0 Neutrophils # 6.3 Lymphocytes # 1.2 Monocytes # 0.4 Eosinophils # 0.8 H Basophils # 0.0 Nucleated Red Blood Cells # 0.0 Sodium Level 137 Potassium Level 3.7 Chloride Level 103 Carbon Dioxide Level 20 L Anion Gap 18 H Blood Urea Nitrogen 27 H Creatinine 1.77 H Glucose Level 181 # Calcium Level 7.9 L Phosphorus Level 5.1 H Magnesium Level 2.1 Test 05/24/17 11:41 Bedside Glucose 82 Medications Medications Current Medications Atorvastatin Calcium (Lipitor) 10 mg QHS GTB Last administered on 05/19/17t 21: 00; Admin Dose 10 MG; Start 05/06/17 at 21:00 Bisacodyl (Dulcolax Supp) 10 mg Q48H [place] Last administered on 05/22/17 16:38; Admin Dose 10 MG; Start 05/06/17 at 17:00 Carbidopa/Levodopa (Sinemet (25/ 100)) 1 tab TID GTB Last administered on 14:01; Admin Dose 1 TAB; Start 05/06/17 at 21:00 Clopidogrel Bisulfate (plaVIX) 75 mg DAILY GTB Last administered on 05/17/17 10:40; Admin Dose 75 MG; Start 05/07/17 at 09:00; Status Future Hold Donepezil HCl (Aricept) 10 mg QHS GTB Last administered on 05/19/17 21:00; Admin Dose 10 MG; Start 05/06/17 at 21:00 Ferrous Sulfate (Ferrous Sulfate (Ec)) 325 mg BID PO Last administered on 09:09; Admin Dose 325 MG; Start 05/06/17 at 21:00 Folic Acid (Folic Acid) 1 mg DAILY GTB Last administered on 05/22/17 09:09; Admin Dose 1 MG; Start 05/07/17 at 09:00 Lactobacillus Acidophilus/ Rhamnosus (Culturelle) 1 cap QHS GTB Last administered on 05/19/17 21:00; Admin Dose 1 CAP; Start 05/06/17 at 21:00 Magnesium Hydroxide (Milk Of Mag) 30 ml Q24H GTB Last administered on 05/22/17 16:38; Admin Dose 30 ML; Start 05/06/17 at 17:00 Memantine (Namenda) 5 mg QAM GTB Last administered on 05/22/17 09:10; Admin Dose 5 MG; Start 05/07/17 at 09:00 Metoprolol Tartrate (Lopressor) 25 mg Q12H GTB Last administered on 05/18/17 16:47; Admin Dose 25 MG; Start 05/06/17 at 17:00; Status Future Hold Multivit/Ca Carb/ B Cmplx/FA/Prenat (Radhika-John) 1 tab DAILY GTB Last administered on 05/22/17 09:09; Admin Dose 1 TAB; Start 05/07/17 at 09:00 Pramipexole (Mirapex) 0.5 mg DAILY GTB Last administered on 05/22/17 09:09; Admin Dose 0.5 MG; Start 05/07/17 at 09:00 Sodium Biphosphate/ Sodium Phosphate (Fleet Enema Pediatric) 118 ml Q72H PRN [place] CONSTIPATION; Start 05/06/17 at 17:00 Citric Acid/ Sodium Citrate (Bicitra) 30 ml BID PO Last administered on 09:09; Admin Dose 30 ML; Start 05/06/17 at 21:00 Nystatin (Nystatin Powder) 1 applic BID TOP Last administered on 05/24/17 10:00 ; Admin Dose 1 APPLIC; Start 05/09/17 at 21:00 Collagenase (Santyl) 1 applic DAILY TOP Last administered on 05/24/17 10:02; Admin Dose 1 APPLIC; Start 05/09/17 at 15:00 Collagenase 1 applic 1 applic PRN PRN TOP WOUND CARE; Start 05/09/17 at 14:00 Norepinephrine 16 mg/Dextrose 500 ml @ 1.87 mls/hr TITRATE IV ; Start 05/10/17 at 14:00 Dopamine HCl/ Dextrose 250 ml @ 6.848 mls/ hr TITRATE IV Last administered on 05/23/17 23:39; Admin Dose 17.119 MLS/HR; Start 05/10/17 at 18:30 Miscellaneous Information 1 ea NOTE XX ; Start 05/11/17 at 08:00 Glucose (Glutose) 15 gm Q15M PRN PO DECREASED GLUCOSE; Start 05/11/17 at 08:00 Glucose (Glutose) 22.5 gm Q15M PRN PO DECREASED GLUCOSE; Start 05/11/17 at 08: 00 Dextrose (D50w Syringe) 25 ml Q15M PRN IV DECREASED GLUCOSE Last administered on 05/22/17 16:38; Admin Dose 25 ML; Start 05/11/17 at 08:00 Dextrose (D50w Syringe) 50 ml Q15M PRN IV DECREASED GLUCOSE Last administered on 05/15/17 00:11; Admin Dose 50 ML; Start 05/11/17 at 08:00 Glucagon (Glucagen) 1 mg Q15M PRN IM DECREASED GLUCOSE; Start 05/11/17 at 08:00 Glucose (Glutose) 15 gm Q15M PRN BUCCAL DECREASED GLUCOSE; Start 05/11/17 at 08 :00 Epoetin Vasyl (Epogen (Esrd)) 10,000 units MoWeFr@17 SC Last administered on 05/22 18:49; Admin Dose 10,000 UNITS; Start 05/13/17 at 17:00 IV Flush (NS 10 ml) 10 ml PRN PRN IV IV PROTOCOL; Start 05/15/17 at 17:30 Pantoprazole 40 mg 40 mg BID@06,18 IV Last administered on 05/24/17 06:20; Admin Dose 40 MG; Start 05/16/17 at 10:00 Trimethoprim/ Sulfamethoxazole/ Dextrose (Bactrim/D5W) 260 ml @ 173.333 mls/hr Q8 IVPB Last administered on 05/24/17 06:20; Admin Dose 173.333 MLS/HR; Start 05/19/17 at 21:00 Amikacin Sulfate AMIKACIN PER PHARMACY NOTE XX ; Start 05/19/17 at 18:00 Cefepime HCl/ Sodium Chloride (Maxipime/NS) 100 ml @ 100 mls/hr Q24H IVPB Last administered on 05/23/17 20:26; Admin Dose 100 MLS/HR; Start 05/19/17 at 20 :00 Insulin Aspart NOVOLOG *MILD* ALGORI... Q6 SC ; Start 05/20/17 at 00:00 Amikacin Sulfate/ Sodium Chloride (Amikacin/NS) 101.4 ml @ 101.4 mls/ hr Q96H IVPB Last administered on 05/23/17 23:29; Admin Dose 101.4 MLS/HR; Start at 21:00 Midodrine (Proamatine) 10 mg TID@, GTB ; Start 05/23/17 at 09:00 Heparin Sodium (Porcine) 5000 unit 5,000 unit BID SC Last administered on 09:59; Admin Dose 5,000 UNIT; Start 05/23/17 at 09:00 Dextrose/Sodium Chloride (D5-1/2ns) 1,000 ml @ 75 mls/hr [id number] IV Last administered on 05/24/17 06:20; Admin Dose 75 MLS/HR; Start 05/23/17 at 11:30 SYLVIA PADRON NP May 24, 2017 12:24
--- NOTE | 2017-05-24 12:28 | CONS ---
Date/Time of Note Date/Time of Note DATE: 05/24/17 TIME: 12:26 Assessment/Plan Assessment/Plan Chief Complaint/Hosp Course 86-year-old debilitated female admitted from subacute with dislodged G-tube. However during hospital course she has developed respiratory failure is currently in the intensive care unit. Major comorbid medical problems include history of advanced dementia, she is PEG trached and chronic kidney disease. She remains in intensive care unit critically ill, she is a full code family members have not addressed ongoing goals of care. Problems: Additional Assessment/Plan Today I have not heard from patient's son, he has my cell phone number. I will be available over the weekend May 25 and hopefully I can have a face-to- face conference with him. Addendum my prior consultation note shows a review of systems, this is inaccurate and a typographical error. Consultation Date/Type/Reason Admit Date/Time May 06, 2017 at 16:34 Initial Consult Date 05/22/17 Type of Consultation: Palliative care Exam/Review of Systems Vital Signs Vitals Vital Signs Date Time Temp Pulse Resp B/P Pulse Ox O2 Delivery O2 Flow Rate FiO2 05/24/17 08:45 71 12 101/37 100 05/24/17 08:00 96.3 Mechanical Ventilator 05/24/17 05:50 30 Intake and Output 05/23/17 05/23/17 05/24/17 15:00 23:00 07:00 Intake Total 744.288 ml 874.977 ml 757.067 ml Output Total 750 ml 725 ml 625 ml Balance -5.712 ml 149.977 ml 132.067 ml Results Result Diagram: 05/24/17 0420 05/24/17 0420 Results 24 hrs Laboratory Tests Test 05/23/17 17:25 05/23/17 23:30 05/24/17 04:20 05/24/17 06:19 Bedside Glucose 88 89 80 White Blood Count 8.7 Red Blood Count 3.73 L Hemoglobin 11.1 L Hematocrit 34.3 L Mean Corpuscular Volume 92.0 Mean Corpuscular Hemoglobin 29.8 Mean Corpuscular Hemoglobin Concent 32.4 Red Cell Distribution Width 16.5 H Platelet Count 233 Mean Platelet Volume 10.6 H Neutrophils % 72.4 Lymphocytes % 13.7 L Monocytes % 4.4 Eosinophils % 8.7 H Basophils % 0.3 Nucleated Red Blood Cells % 0.0 Neutrophils # 6.3 Lymphocytes # 1.2 Monocytes # 0.4 Eosinophils # 0.8 H Basophils # 0.0 Nucleated Red Blood Cells # 0.0 Sodium Level 137 Potassium Level 3.7 Chloride Level 103 Carbon Dioxide Level 20 L Anion Gap 18 H Blood Urea Nitrogen 27 H Creatinine 1.77 H Glucose Level 181 # Calcium Level 7.9 L Phosphorus Level 5.1 H Magnesium Level 2.1 Test 05/24/17 11:41 Bedside Glucose 82 Medications Medications Current Medications Atorvastatin Calcium (Lipitor) 10 mg QHS GTB Last administered on 05/19/17 21: 00; Admin Dose 10 MG; Start 05/06/17 at 21:00 Bisacodyl (Dulcolax Supp) 10 mg Q48H [place] Last administered on 05/22/17 16:38; Admin Dose 10 MG; Start 05/06/17 at 17:00 Carbidopa/Levodopa (Sinemet (25/ 100)) 1 tab TID GTB Last administered on 14:01; Admin Dose 1 TAB; Start 05/06/17 at 21:00 Clopidogrel Bisulfate (plaVIX) 75 mg DAILY GTB Last administered on 05/17/17 10:40; Admin Dose 75 MG; Start 05/07/17 at 09:00; Status Future Hold Donepezil HCl (Aricept) 10 mg QHS GTB Last administered on 05/19/17 21:00; Admin Dose 10 MG; Start 05/06/17 at 21:00 Ferrous Sulfate (Ferrous Sulfate (Ec)) 325 mg BID PO Last administered on 09:09; Admin Dose 325 MG; Start 05/06/17 at 21:00 Folic Acid (Folic Acid) 1 mg DAILY GTB Last administered on 05/22/17 09:09; Admin Dose 1 MG; Start 05/07/17 at 09:00 Lactobacillus Acidophilus/ Rhamnosus (Culturelle) 1 cap QHS GTB Last administered on 05/19/17 21:00; Admin Dose 1 CAP; Start 05/06/17 at 21:00 Magnesium Hydroxide (Milk Of Mag) 30 ml Q24H GTB Last administered on 05/22/17 16:38; Admin Dose 30 ML; Start 05/06/17 at 17:00 Memantine (Namenda) 5 mg QAM GTB Last administered on 05/22/17 09:10; Admin Dose 5 MG; Start 05/07/17 at 09:00 Metoprolol Tartrate (Lopressor) 25 mg Q12H GTB Last administered on 05/18/17 16:47; Admin Dose 25 MG; Start 05/06/17 at 17:00; Status Future Hold Multivit/Ca Carb/ B Cmplx/FA/Prenat (Radhika-John) 1 tab DAILY GTB Last administered on 05/22/17 09:09; Admin Dose 1 TAB; Start 05/07/17 at 09:00 Pramipexole (Mirapex) 0.5 mg DAILY GTB Last administered on 05/22/17 09:09; Admin Dose 0.5 MG; Start 05/07/17 at 09:00 Sodium Biphosphate/ Sodium Phosphate (Fleet Enema Pediatric) 118 ml Q72H PRN [place] CONSTIPATION; Start 05/06/17 at 17:00 Citric Acid/ Sodium Citrate (Bicitra) 30 ml BID PO Last administered on 09:09; Admin Dose 30 ML; Start 05/06/17 at 21:00 Nystatin (Nystatin Powder) 1 applic BID TOP Last administered on 05/24/17 10:00 ; Admin Dose 1 APPLIC; Start 05/09/17 at 21:00 Collagenase (Santyl) 1 applic DAILY TOP Last administered on 05/24/17 10:02; Admin Dose 1 APPLIC; Start 05/09/17 at 15:00 Collagenase 1 applic 1 applic PRN PRN TOP WOUND CARE; Start 05/09/17 at 14:00 Norepinephrine 16 mg/Dextrose 500 ml @ 1.87 mls/hr TITRATE IV ; Start 05/10/17 at 14:00 Dopamine HCl/ Dextrose 250 ml @ 6.848 mls/ hr TITRATE IV Last administered on 05/23/17 23:39; Admin Dose 17.119 MLS/HR; Start 05/10/17 at 18:30 Miscellaneous Information 1 ea NOTE XX ; Start 05/11/17 at 08:00 Glucose (Glutose) 15 gm Q15M PRN PO DECREASED GLUCOSE; Start 05/11/17 at 08:00 Glucose (Glutose) 22.5 gm Q15M PRN PO DECREASED GLUCOSE; Start 05/11/17 at 08: 00 Dextrose (D50w Syringe) 25 ml Q15M PRN IV DECREASED GLUCOSE Last administered on 05/22/17 16:38; Admin Dose 25 ML; Start 05/11/17 at 08:00 Dextrose (D50w Syringe) 50 ml Q15M PRN IV DECREASED GLUCOSE Last administered on 05/15/17 00:11; Admin Dose 50 ML; Start 05/11/17 at 08:00 Glucagon (Glucagen) 1 mg Q15M PRN IM DECREASED GLUCOSE; Start 05/11/17 at 08:00 Glucose (Glutose) 15 gm Q15M PRN BUCCAL DECREASED GLUCOSE; Start 05/11/17 at 08 :00 Epoetin Vasyl (Epogen (Esrd)) 10,000 units MoWeFr@17 [place] Last administered on 05/22 18:49; Admin Dose 10,000 UNITS; Start 05/13/17 at 17:00 IV Flush (NS 10 ml) 10 ml PRN PRN IV IV PROTOCOL; Start 05/15/17 at 17:30 Pantoprazole 40 mg 40 mg BID@06,18 IV Last administered on 05/24/17 06:20; Admin Dose 40 MG; Start 05/16/17 at 10:00 Trimethoprim/ Sulfamethoxazole/ Dextrose (Bactrim/D5W) 260 ml @ 173.333 mls/hr Q8 IVPB Last administered on 05/24/17 06:20; Admin Dose 173.333 MLS/HR; Start 05/19/17 at 21:00 Amikacin Sulfate AMIKACIN PER PHARMACY NOTE XX ; Start 05/19/17 at 18:00 Cefepime HCl/ Sodium Chloride (Maxipime/NS) 100 ml @ 100 mls/hr Q24H IVPB Last administered on 05/23/17 20:26; Admin Dose 100 MLS/HR; Start 05/19/17 at 20 :00 Insulin Aspart NOVOLOG *MILD* ALGORI... Q6 [place] ; Start 05/20/17 at 00:00 Amikacin Sulfate/ Sodium Chloride (Amikacin/NS) 101.4 ml @ 101.4 mls/ hr Q96H IVPB Last administered on 05/23/17 23:29; Admin Dose 101.4 MLS/HR; Start at 21:00 Midodrine (Proamatine) 10 mg TID@,, GTB ; Start 05/23/17 at 09:00 Heparin Sodium (Porcine) 5000 unit 5,000 unit BID [place] Last administered on 09:59; Admin Dose 5,000 UNIT; Start 05/23/17 at 09:00 Dextrose/Sodium Chloride (D5-1/2ns) 1,000 ml @ 75 mls/hr [id number] IV Last administered on 05/24/17 06:20; Admin Dose 75 MLS/HR; Start 05/23/17 at 11:30 PENELOPE POPE May 24, 2017 12:28
--- NOTE | 2017-05-24 14:31 | PN ---
Date/Time of Note Date/Time of Note DATE: 05/24/17 TIME: 14:30 Assessment/Plan VTE Prophylaxis VTE Prophylaxis Intervention: other Lines/Catheters IV Catheter Type (from Nrs): PICC Line Central line still needed: Yes Urinary Cath still in place: Yes Reason Cath still needed: other (indicate) Assessment/Plan Chief Complaint/Hosp Course 1. hypoxemic resp failure: s/p trach 2. Pafib; currently in NSR 3. hx HTN: now in shock and hypotensive. : STILL requires DOPAMINE DRIP 4. encephalopathy 5. renal failure: f/u with nephrology 6. dysphagia 7. G tube malfunction/ infection 8. GI bleed 9. severe anemia will cont dopamine drip and titrate off once BP remains stable. cont resp care nutritional support. CONT ICU care as long as pt is on pressors correct lytes prn f/u renal fx. off of PLAVIX DUE TO ANEMIA/ BLEEDING still awaiting GI for PEG replacement once consents were obtained. THANK YOU. Problems: Subjective 24 Hr Interval Summary Free Text/Dictation CARDIOLOGY FOLLOW UP NOTE: Discussed with staff and rhythm was reviewed pt remains in NSR. NO AFIB seen NONVERBAL. pt is still ICU on low dose dopamine drip still unable to wean off so far. OBJECTIVE: General: no acute distress. s/p trach on vent. HEENT: NC/AT. NECK: NO JVD. no stridor. S/P trach on vent CV: RRR. systolic murmur; no gallop or rubs. PULM: no wheezing anteriorly GI: SOFT, NT, ND, no rebound or guarding s/p dressing at the site of previous G tube Extremity: + B/L LE edema. no clubbing. neuro: opens her eyes to painful stimuli. does not follow commands Psych: calm rectal: deferred Exam/Review of Systems Vital Signs Vitals Vital Signs Date Time Temp Pulse Resp B/P Pulse Ox O2 Delivery O2 Flow Rate FiO2 05/24/17 12:30 75 14 108/50 99 05/24/17 12:00 96.0 Mechanical Ventilator 05/24/17 11:40 30 Intake and Output 05/23/17 05/23/17 05/24/17 15:00 23:00 07:00 Intake Total 744.288 ml 874.977 ml 757.067 ml Output Total 750 ml 725 ml 625 ml Balance -5.712 ml 149.977 ml 132.067 ml Results Result Diagram: 05/24/17 0420 05/24/17 0420 Results 24 hrs Laboratory Tests Test 05/23/17 17:25 05/23/17 23:30 05/24/17 04:20 05/24/17 06:19 Bedside Glucose 88 89 80 White Blood Count 8.7 Red Blood Count 3.73 L Hemoglobin 11.1 L Hematocrit 34.3 L Mean Corpuscular Volume 92.0 Mean Corpuscular Hemoglobin 29.8 Mean Corpuscular Hemoglobin Concent 32.4 Red Cell Distribution Width 16.5 H Platelet Count 233 Mean Platelet Volume 10.6 H Neutrophils % 72.4 Lymphocytes % 13.7 L Monocytes % 4.4 Eosinophils % 8.7 H Basophils % 0.3 Nucleated Red Blood Cells % 0.0 Neutrophils # 6.3 Lymphocytes # 1.2 Monocytes # 0.4 Eosinophils # 0.8 H Basophils # 0.0 Nucleated Red Blood Cells # 0.0 Sodium Level 137 Potassium Level 3.7 Chloride Level 103 Carbon Dioxide Level 20 L Anion Gap 18 H Blood Urea Nitrogen 27 H Creatinine 1.77 H Glucose Level 181 # Calcium Level 7.9 L Phosphorus Level 5.1 H Magnesium Level 2.1 Test 05/24/17 11:41 Bedside Glucose 82 Medications Medications Current Medications Atorvastatin Calcium (Lipitor) 10 mg QHS GTB Last administered on 05/19/17 21: 00; Admin Dose 10 MG; Start 05/06/17 at 21:00 Bisacodyl (Dulcolax Supp) 10 mg Q48H CA Last administered on 05/22/17 16:38; Admin Dose 10 MG; Start 05/06/17 at 17:00 Carbidopa/Levodopa (Sinemet (25/ 100)) 1 tab TID GTB Last administered on 14:01; Admin Dose 1 TAB; Start 05/06/17 at 21:00 Clopidogrel Bisulfate (plaVIX) 75 mg DAILY GTB Last administered on 05/17/17 10:40; Admin Dose 75 MG; Start 05/07/17 at 09:00; Status Future Hold Donepezil HCl (Aricept) 10 mg QHS GTB Last administered on 05/19/17 21:00; Admin Dose 10 MG; Start 05/06/17 at 21:00 Ferrous Sulfate (Ferrous Sulfate (Ec)) 325 mg BID PO Last administered on 09:09; Admin Dose 325 MG; Start 05/06/17 at 21:00 Folic Acid (Folic Acid) 1 mg DAILY GTB Last administered on 05/22/17 09:09; Admin Dose 1 MG; Start 05/07/17 at 09:00 Lactobacillus Acidophilus/ Rhamnosus (Culturelle) 1 cap QHS GTB Last administered on 05/19/17 21:00; Admin Dose 1 CAP; Start 05/06/17 at 21:00 Magnesium Hydroxide (Milk Of Mag) 30 ml Q24H GTB Last administered on 05/22/17 16:38; Admin Dose 30 ML; Start 05/06/17 at 17:00 Memantine (Namenda) 5 mg QAM GTB Last administered on 05/22/17 09:10; Admin Dose 5 MG; Start 05/07/17 at 09:00 Metoprolol Tartrate (Lopressor) 25 mg Q12H GTB Last administered on 05/18/17 16:47; Admin Dose 25 MG; Start 05/06/17 at 17:00; Status Future Hold Multivit/Ca Carb/ B Cmplx/FA/Prenat (Radhika-John) 1 tab DAILY GTB Last administered on 05/22/17 09:09; Admin Dose 1 TAB; Start 05/07/17 at 09:00 Pramipexole (Mirapex) 0.5 mg DAILY GTB Last administered on 05/22/17 09:09; Admin Dose 0.5 MG; Start 05/07/17 at 09:00 Sodium Biphosphate/ Sodium Phosphate (Fleet Enema Pediatric) 118 ml Q72H PRN [place] CONSTIPATION; Start 05/06/17 at 17:00 Citric Acid/ Sodium Citrate (Bicitra) 30 ml BID PO Last administered on 09:09; Admin Dose 30 ML; Start 05/06/17 at 21:00 Nystatin (Nystatin Powder) 1 applic BID TOP Last administered on 05/24/17 10:00 ; Admin Dose 1 APPLIC; Start 05/09/17 at 21:00 Collagenase (Santyl) 1 applic DAILY TOP Last administered on 05/24/17 10:02; Admin Dose 1 APPLIC; Start 05/09/17 at 15:00 Collagenase 1 applic 1 applic PRN PRN TOP WOUND CARE; Start 05/09/17 at 14:00 Norepinephrine 16 mg/Dextrose 500 ml @ 1.87 mls/hr TITRATE IV ; Start 05/10/17 at 14:00 Dopamine HCl/ Dextrose 250 ml @ 6.848 mls/ hr TITRATE IV Last administered on 05/23/17 23:39; Admin Dose 17.119 MLS/HR; Start 05/10/17 at 18:30 Miscellaneous Information 1 ea NOTE XX ; Start 05/11/17 at 08:00 Glucose (Glutose) 15 gm Q15M PRN PO DECREASED GLUCOSE; Start 05/11/17 at 08:00 Glucose (Glutose) 22.5 gm Q15M PRN PO DECREASED GLUCOSE; Start 05/11/17 at 08: 00 Dextrose (D50w Syringe) 25 ml Q15M PRN IV DECREASED GLUCOSE Last administered on 05/22/17 16:38; Admin Dose 25 ML; Start 05/11/17 at 08:00 Dextrose (D50w Syringe) 50 ml Q15M PRN IV DECREASED GLUCOSE Last administered on 05/15/17 00:11; Admin Dose 50 ML; Start 05/11/17 at 08:00 Glucagon (Glucagen) 1 mg Q15M PRN IM DECREASED GLUCOSE; Start 05/11/17 at 08:00 Glucose (Glutose) 15 gm Q15M PRN BUCCAL DECREASED GLUCOSE; Start 05/11/17 at 08 :00 Epoetin Vasyl (Epogen (Esrd)) 10,000 units MoWeFr@17 SC Last administered on 05/22 18:49; Admin Dose 10,000 UNITS; Start 05/13/17 at 17:00 IV Flush (NS 10 ml) 10 ml PRN PRN IV IV PROTOCOL; Start 05/15/17 at 17:30 Pantoprazole 40 mg 40 mg BID@06,18 IV Last administered on 05/24/17 06:20; Admin Dose 40 MG; Start 05/16/17 at 10:00 Trimethoprim/ Sulfamethoxazole/ Dextrose (Bactrim/D5W) 260 ml @ 173.333 mls/hr Q8 IVPB Last administered on 05/24/17 06:20; Admin Dose 173.333 MLS/HR; Start 05/19/17 at 21:00 Amikacin Sulfate AMIKACIN PER PHARMACY NOTE XX ; Start 05/19/17 at 18:00 Cefepime HCl/ Sodium Chloride (Maxipime/NS) 100 ml @ 100 mls/hr Q24H IVPB Last administered on 05/23/17 20:26; Admin Dose 100 MLS/HR; Start 05/19/17 at 20 :00 Insulin Aspart NOVOLOG *MILD* ALGORI... Q6 SC ; Start 05/20/17 at 00:00 Amikacin Sulfate/ Sodium Chloride (Amikacin/NS) 101.4 ml @ 101.4 mls/ hr Q96H IVPB Last administered on 05/23/17 23:29; Admin Dose 101.4 MLS/HR; Start at 21:00 Midodrine (Proamatine) 10 mg TID@09,13,17 GTB ; Start 05/23/17 at 09:00 Heparin Sodium (Porcine) 5000 unit 5,000 unit BID SC Last administered on 09:59; Admin Dose 5,000 UNIT; Start 05/23/17 at 09:00 Dextrose/Sodium Chloride (D5-1/2ns) 1,000 ml @ 75 mls/hr [id number] IV Last administered on 05/24/17 06:20; Admin Dose 75 MLS/HR; Start 05/23/17 at 11:30 MILAGROS MUNOZ MD May 24, 2017 14:31
[2017-05-24] MEDS: DOPamine-D5W 1.6 MG/ML 250 ML IV SCH (14:47)
[2017-05-24] MEDS: MAGNESIUM HYDROXIDE 30ML CUP GTB SCH (15:37)
[2017-05-24] MEDS: BISACODYL 10 MG SUPP PR SCH (17:00)
--- NOTE | 2017-05-24 17:40 | OPR ---
Date/Time of Note Date/Time of Note DATE: 05/24/17 TIME: 17:38 Operative Report Preoperative Diagnosis Dysphagia Postoperative Diagnosis Dysphagia Operation/Procedure Performed Attempted to put a larger G-tube. Even 24 Welsh G-tube came out. 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 5 Endo Clip deployed closing the fistula by 70-80%. No more Endo Clip's were available to further close the fistula. Surgeon: SYLWIA SY MD Anesthesia: MAC, other Estimated Blood Loss: none Complications: None SYLWIA SY MD May 24, 2017 17:40
[2017-05-24] MEDS ORDERED: FENTAnyl 50 MCG/ML VIAL IV PRN ×3 (18:00)
[2017-05-24] MEDS ORDERED: INSULIN ASPART [NOVOLOG] 3 ML PEN SC ONE (18:00)
[2017-05-24] MEDS: EPOETIN 10000 UNITS/1 ML INJ (ESRD) SC SCH (18:54)
[2017-05-24] MEDS: LACTOBACILLUS RHAMNOSUS CAP GTB SCH (21:00)
[2017-05-24] MEDS: ATORVASTATIN 10 MG TAB GTB SCH (21:00)
[2017-05-24] MEDS: DONEPEZIL 10 MG TAB GTB SCH (21:00)
[2017-05-24] MEDS: CEFEPIME HCL 0.5 GM in SOD CHLORIDE 0.9% 100 ML IVPB SCH (21:21)
[2017-05-25] VITALS (101 sets, daily range): BP systolic 58–126; BP diastolic 35–79; PULSE 75–93; RESP 11–24
--- NOTE | 2017-05-25 02:11 | GILP ---
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 So the purpose of this procedure is to hopefully put the larger G-tube and converting to a G-tube. The risks of the procedure related complications, and anesthetic risks, alternatives discussed. Informed consent was obtained. The patient was sedated by [____]. After sedation scope was passed with much ease into the esophagus, advanced further down into the stomach. The existing GJ-tube was removed. The opening appeared to be much larger than anticipated both externally and internally so we passed a guide wire through the gastrocutaneous fistula and the whole procedure was completed by modified Ponsky technique. 24-Malay G-tube was appropriately positioned but the opening was so large that internal bumper could not stay, the whole bumper came out easily. So at this point, decided that there was no reason to put a GJ tube because it was not going to even hold the balloon. So in order to reduce the size of the opening, we had a 5 Endoclip available, all of them deployed, we did not [____] the scope clip which is not approved by the hospital, so whatever the best available, I deployed it, those Endoclips were not even enough to completely close it but definitely reduced the size of the gastrocutaneous fistula. The scope was removed with good patient tolerance. IMPRESSION: 1. Opening was too large for the GJ tube or the 24-Malay tube to stay in place. 2. Gastrocutaneous fistula closed with the Endoclip, 70-80 percent closed with Endoclip. PLAN: The patient definitely needs a surgery. This opening is too big and there is no room for the placement of another G tube because of the patient's anatomical structure. Dictated By: Pedro Degroot MD /junie/carla /Document#: [id number] CC: Brendan Rosas DO; Dr. Crews;*EndCC*
[2017-05-25] MEDS: DEXTROSE 5%-0.45% NACL 1,000 ML IV SCH ×2 (02:20→17:04)
[2017-05-25] MEDS: DOPamine-D5W 1.6 MG/ML 250 ML IV SCH ×3 (02:40→23:29)
[2017-05-25 04:59] LABS: BASOPHILS % 0.4 % (0.0-2.0); EOSINOPHILS # 0.9 10^3/ul (0.0-0.5); EOSINOPHILS % 11.4 % (0.0-7.0); HEMATOCRIT 33.3 % (37.0-47.0); LYMPHOCYTES # 1.1 10^3/ul (0.8-2.9); MEAN CORPUSCULAR HEMOGLOBIN 30.1 pg (29.0-33.0); MEAN CORPUSCULAR VOLUME 91.2 fl (82.0-101.0); MEAN PLATELET VOLUME 10.2 fl (7.4-10.4); MONOCYTE # 0.4 10^3/ul (0.3-0.9); MONOCYTES % 5.1 % (0.0-11.0); NEUTROPHIL # 5.7 10^3/ul (1.6-7.5); NEUTROPHILS % 69.7 % (39.0-77.0); PLATELET COUNT 211 10^3/UL (140-415); RED BLOOD COUNT 3.65 10^6/ul (4.20-5.40); RED CELL DISTRIBUTION WIDTH 16.8 % (11.5-14.5); WHITE BLOOD COUNT 8.1 10^3/ul (4.8-10.8)
[2017-05-25 05:24] LABS: CALCIUM 7.8 mg/dl (8.4-10.2); CREATININE 1.68 mg/dl (0.44-1.00); MAGNESIUM 2.1 mg/dl (1.7-2.5); POTASSIUM 3.6 mmol/L (3.5-5.1)
[2017-05-25] MEDS: INSULIN ASPART [NOVOLOG] 3 ML PEN SC SCH ×4 (06:00→18:00)
[2017-05-25] MEDS: PANTOPRAZOLE 40 MG INJ IV SCH ×2 (06:16→18:14)
[2017-05-25] MEDS: DEXTROSE 50% 50 ML SYRINGE IV PRN (06:17)
[2017-05-25] MEDS: COLLAGENASE 30 GM TUBE TOP PRN (06:28)
[2017-05-25] MEDS: TRIMETHOPRIM/SULFAMETHOXAZOLE 10 ML in DEXTROSE 5% 250 ML IVPB SCH ×3 (06:36→22:57)
[2017-05-25] MEDS: COLISTIMETHATE (25 MG/ML INHAL SYG) NEB SCH ×2 (08:23→20:51)
[2017-05-25] MEDS: CARBIDOPA/LEVODOPA (25/100) TAB GTB SCH ×3 (09:00→21:00)
[2017-05-25] MEDS: MIDODRINE 5 MG TAB GTB SCH ×3 (09:00→17:00)
[2017-05-25] MEDS: PRAMIPEXOLE 0.25 MG TAB GTB SCH (09:00)
[2017-05-25] MEDS: MEMANTINE 5 MG TAB GTB SCH (09:00)
[2017-05-25] MEDS: CITRIC ACID/NA CITRATE 30 ML CUP PO SCH ×2 (09:00→21:00)
[2017-05-25] MEDS: FERROUS SULFATE (EC) 325 MG TAB PO SCH ×2 (09:00→21:00)
[2017-05-25] MEDS: FOLIC ACID 1 MG TAB GTB SCH (09:00)
[2017-05-25] MEDS: MULTIVIT/CA CARB/B CMPLX/FA TAB GTB SCH (09:00)
[2017-05-25] MEDS: NYSTATIN 30 GM POWDER BTL TOP SCH ×2 (09:50→21:33)
[2017-05-25] MEDS: COLLAGENASE 30 GM TUBE TOP SCH (09:50)
[2017-05-25] MEDS: HEPARIN 5,000 UNIT/0.5 ML VIAL SC SCH ×2 (09:50→21:31)
--- NOTE | 2017-05-25 12:23 | PN ---
Date/Time of Note Date/Time of Note DATE: 05/25/17 TIME: 12:22 Assessment/Plan VTE Prophylaxis VTE Prophylaxis Intervention: other Lines/Catheters IV Catheter Type (from Nrsg): PICC Line Central line still needed: Yes Urinary Cath still in place: Yes Reason Cath still needed: other (indicate) Assessment/Plan Chief Complaint/Hosp Course 1. hypoxemic resp failure: s/p trach 2. Pafib; currently in NSR 3. hx HTN: now in shock and hypotensive. : STILL requires DOPAMINE DRIP 4. encephalopathy 5. renal failure: f/u with nephrology 6. dysphagia 7. G tube malfunction/ infection 8. GI bleed 9. severe anemia will cont dopamine drip and titrate off once BP remains stable. cont resp care nutritional support. CONT ICU care as long as pt is on pressors correct lytes prn off of PLAVIX DUE TO ANEMIA/ BLEEDING still surgery for PEG replacement THANK YOU. Problems: Subjective 24 Hr Interval Summary Free Text/Dictation CARDIOLOGY FOLLOW UP NOTE: Discussed with staff and rhythm was reviewed pt remains in NSR. NO AFIB seen NONVERBAL. pt is still ICU on dopamine drip still unable to wean off so far. unable to close the PEG site by GI OBJECTIVE: General: no acute distress. s/p trach on vent. HEENT: NC/AT. NECK: NO JVD. no stridor. S/P trach on vent CV: RRR. systolic murmur; no gallop or rubs. PULM: no wheezing anteriorly GI: SOFT, NT, ND, no rebound or guarding s/p dressing at the site of previous G tube Extremity: + B/L LE edema. no clubbing. neuro: opens her eyes to painful stimuli. does not follow commands Psych: calm rectal: deferred Exam/Review of Systems Vital Signs Vitals Vital Signs Date Time Temp Pulse Resp B/P Pulse Ox O2 Delivery O2 Flow Rate FiO2 05/25/17 11:00 78 16 99 30 05/25/17 11:00 95/47 Mechanical Ventilator 05/25/17 08:00 96.9 Intake and Output 05/24/17 05/24/17 05/25/17 15:00 23:00 07:00 Intake Total 718.981 ml 1045.946 ml 830.152 ml Output Total 725 ml 700 ml 650 ml Balance -6.019 ml 345.946 ml 180.152 ml Results Result Diagram: 05/25/17 0445 05/25/17 0445 Results 24 hrs Laboratory Tests Test 05/24/17 18:51 05/25/17 00:25 05/25/17 04:45 05/25/17 06:07 Bedside Glucose 84 86 61 L White Blood Count 8.1 Red Blood Count 3.65 L Hemoglobin 11.0 L Hematocrit 33.3 L Mean Corpuscular Volume 91.2 Mean Corpuscular Hemoglobin 30.1 Mean Corpuscular Hemoglobin Concent 33.0 Red Cell Distribution Width 16.8 H Platelet Count 211 Mean Platelet Volume 10.2 Neutrophils % 69.7 Lymphocytes % 13.0 L Monocytes % 5.1 Eosinophils % 11.4 H Basophils % 0.4 Nucleated Red Blood Cells % 0.0 Neutrophils # 5.7 Lymphocytes # 1.1 Monocytes # 0.4 Eosinophils # 0.9 H Basophils # 0.0 Nucleated Red Blood Cells # 0.0 Sodium Level 137 Potassium Level 3.6 Chloride Level 104 Carbon Dioxide Level 20 L Anion Gap 17 H Blood Urea Nitrogen 26 H Creatinine 1.68 H Glucose Level 173 Calcium Level 7.8 L Phosphorus Level 5.0 H Magnesium Level 2.1 Test 05/25/17 06:33 Bedside Glucose 117 Medications Medications Current Medications Atorvastatin Calcium (Lipitor) 10 mg QHS GTB Last administered on 05/19/17 21: 00; Admin Dose 10 MG; Start 05/06/17 at 21:00 Bisacodyl (Dulcolax Supp) 10 mg Q48H MT Last administered on 05/22/17 16:38; Admin Dose 10 MG; Start 05/06/17 at 17:00 Carbidopa/Levodopa (Sinemet (25/ 100)) 1 tab TID GTB Last administered on 14:01; Admin Dose 1 TAB; Start 05/06/17 at 21:00 Clopidogrel Bisulfate (plaVIX) 75 mg DAILY GTB Last administered on 05/17/17 10:40; Admin Dose 75 MG; Start 05/07/17 at 09:00; Status Future Hold Donepezil HCl (Aricept) 10 mg QHS GTB Last administered on 05/19/17 21:00; Admin Dose 10 MG; Start 05/06/17 at 21:00 Ferrous Sulfate (Ferrous Sulfate (Ec)) 325 mg BID PO Last administered on 09:09; Admin Dose 325 MG; Start 05/06/17 at 21:00 Folic Acid (Folic Acid) 1 mg DAILY GTB Last administered on 05/22/17 09:09; Admin Dose 1 MG; Start 05/07/17 at 09:00 Lactobacillus Acidophilus/ Rhamnosus (Culturelle) 1 cap QHS GTB Last administered on 05/19/17 21:00; Admin Dose 1 CAP; Start 05/06/17 at 21:00 Magnesium Hydroxide (Milk Of Mag) 30 ml Q24H GTB Last administered on 05/22/17 16:38; Admin Dose 30 ML; Start 05/06/17 at 17:00 Memantine (Namenda) 5 mg QAM GTB Last administered on 05/22/17 09:10; Admin Dose 5 MG; Start 05/07/17 at 09:00 Metoprolol Tartrate (Lopressor) 25 mg Q12H GTB Last administered on 05/18/17 16:47; Admin Dose 25 MG; Start 05/06/17 at 17:00; Status Future Hold Multivit/Ca Carb/ B Cmplx/FA/Prenat (Radhika-John) 1 tab DAILY GTB Last administered on 05/22/17 09:09; Admin Dose 1 TAB; Start 05/07/17 at 09:00 Pramipexole (Mirapex) 0.5 mg DAILY GTB Last administered on 05/22/17 09:09; Admin Dose 0.5 MG; Start 05/07/17 at 09:00 Sodium Biphosphate/ Sodium Phosphate (Fleet Enema Pediatric) 118 ml Q72H PRN [place] CONSTIPATION; Start 05/06/17 at 17:00 Citric Acid/ Sodium Citrate (Bicitra) 30 ml BID PO Last administered on 09:09; Admin Dose 30 ML; Start 05/06/17 at 21:00 Nystatin (Nystatin Powder) 1 applic BID TOP Last administered on 05/25/17 09:50 ; Admin Dose 1 APPLIC; Start 05/09/17 at 21:00 Collagenase (Santyl) 1 applic DAILY TOP Last administered on 05/25/17 09:50; Admin Dose 1 APPLIC; Start 05/09/17 at 15:00 Collagenase 1 applic 1 applic PRN PRN TOP WOUND CARE; Start 05/09/17 at 14:00 Norepinephrine 16 mg/Dextrose 500 ml @ 1.87 mls/hr TITRATE IV ; Start 05/10/17 at 14:00 Dopamine HCl/ Dextrose 250 ml @ 6.848 mls/ hr TITRATE IV Last administered on 05/25/17 02:40; Admin Dose 27.39 MLS/HR; Start 05/10/17 at 18:30 Miscellaneous Information 1 ea NOTE XX ; Start 05/11/17 at 08:00 Glucose (Glutose) 15 gm Q15M PRN PO DECREASED GLUCOSE; Start 05/11/17 at 08:00 Glucose (Glutose) 22.5 gm Q15M PRN PO DECREASED GLUCOSE; Start 05/11/17 at 08: 00 Dextrose (D50w Syringe) 25 ml Q15M PRN IV DECREASED GLUCOSE Last administered on 05/25/17 06:17; Admin Dose 25 ML; Start 05/11/17 at 08:00 Dextrose (D50w Syringe) 50 ml Q15M PRN IV DECREASED GLUCOSE Last administered on 05/15/17 00:11; Admin Dose 50 ML; Start 05/11/17 at 08:00 Glucagon (Glucagen) 1 mg Q15M PRN IM DECREASED GLUCOSE; Start 05/11/17 at 08:00 Glucose (Glutose) 15 gm Q15M PRN BUCCAL DECREASED GLUCOSE; Start 05/11/17 at 08 :00 Epoetin Vasyl (Epogen (Esrd)) 10,000 units MoWeFr@17 SC Last administered on 05/24 18:54; Admin Dose 10,000 UNITS; Start 05/13/17 at 17:00 IV Flush (NS 10 ml) 10 ml PRN PRN IV IV PROTOCOL; Start 05/15/17 at 17:30 Pantoprazole 40 mg 40 mg BID@06,18 IV Last administered on 05/25/17 06:16; Admin Dose 40 MG; Start 05/16/17 at 10:00 Trimethoprim/ Sulfamethoxazole/ Dextrose (Bactrim/D5W) 260 ml @ 173.333 mls/hr Q8 IVPB Last administered on 05/25/17 06:36; Admin Dose 173.333 MLS/HR; Start 05/19/17 at 21:00 Amikacin Sulfate AMIKACIN PER PHARMACY NOTE XX ; Start 05/19/17 at 18:00 Cefepime HCl/ Sodium Chloride (Maxipime/NS) 100 ml @ 100 mls/hr Q24H IVPB Last administered on 05/24/17 21:21; Admin Dose 100 MLS/HR; Start 05/19/17 at 20 :00 Insulin Aspart NOVOLOG *MILD* ALGORI... Q6 SC ; Start 05/20/17 at 00:00 Amikacin Sulfate/ Sodium Chloride (Amikacin/NS) 101.4 ml @ 101.4 mls/ hr Q96H IVPB Last administered on 05/23/17 23:29; Admin Dose 101.4 MLS/HR; Start at 21:00 Midodrine (Proamatine) 10 mg TID@09,,17 GTB ; Start 05/23/17 at 09:00 Heparin Sodium (Porcine) 5000 unit 5,000 unit BID SC Last administered on 09:50; Admin Dose 5,000 UNIT; Start 05/23/17 at 09:00 Dextrose/Sodium Chloride (D5-1/2ns) 1,000 ml @ 75 mls/hr [id number] IV Last administered on 05/25/17 02:20; Admin Dose 75 MLS/HR; Start 05/23/17 at 11:30 MILAGROS MUNOZ MD May 25, 2017 12:23
--- NOTE | 2017-05-25 12:33 | CONS ---
Date/Time of Note Date/Time of Note DATE: 05/25/17 TIME: 12:32 Assessment/Plan Assessment/Plan Chief Complaint/Hosp Course This 69-year-old female with a history of CVA vent dependent respiratory failure , was brought to the emergency room for the dislodgment of the GJ tube. Patient is nonverbal and no information can be obtained. No GI bleeding no chest pain no shortness of breath. Problems: Additional Assessment/Plan Additional Assessment/Plan Additional Assessment/Plan 1. Dislodged of the GJ tube accidentally 2. Vent dependent respiratory failure 3. Chronic encephalopathy 4. Renal failure 5. Peripheral vascular disease 6. Anemia 7. Large gastrocutaneous fistula, endoscopically it is not possible given to keep the largest diameter GJ tube in place Plan Case discussed with Dr. Blackburn and told him to proceed with jejunostomy tube. Continue all supportive care Consultation Date/Type/Reason Admit Date/Time May 06, 2017 at 16:34 Type of Consultation: Palliative care 24 HR Interval Summary Subjective hx not possible: pt non-verbal, pt critical Exam/Review of Systems Vital Signs Vitals Vital Signs Date Time Temp Pulse Resp B/P Pulse Ox O2 Delivery O2 Flow Rate FiO2 05/25/17 11:00 78 16 99 30 05/25/17 11:00 95/47 Mechanical Ventilator 05/25/17 08:00 96.9 Intake and Output 05/24/17 05/24/17 05/25/17 15:00 23:00 07:00 Intake Total 718.981 ml 1045.946 ml 830.152 ml Output Total 725 ml 700 ml 650 ml Balance -6.019 ml 345.946 ml 180.152 ml Exam Constitutional: alert, oriented, well developed Psych: nl mood/affect, no complaints Head: atraumatic, normocephalic Eyes: EOMI, PERRL, nl conjunctiva, nl lids, nl sclera ENMT: nl external ears & nose, nl lips & teeth, nl nasal mucosa & septum Neck: non-tender, supple Respiratory: clear to auscultation, normal air movement Cardiovascular: nl pulses, regular rate and rhythm Gastrointestinal: nl liver, spleen, non-tender, soft Musculoskeletal: nl extremities to inspection, nl gait and stance Extremities: normal pulses Neurological: [employer] II-XII intact, nl mental status, nl speech, nl strength Skin: nl turgor, No rash or lesions Lymph: nl lymph nodes Results Result Diagram: 05/25/17 0445 05/25/17 0445 Results 24 hrs Laboratory Tests Test 05/24/17 18:51 05/25/17 00:25 05/25/17 04:45 05/25/17 06:07 Bedside Glucose 84 86 61 L White Blood Count 8.1 Red Blood Count 3.65 L Hemoglobin 11.0 L Hematocrit 33.3 L Mean Corpuscular Volume 91.2 Mean Corpuscular Hemoglobin 30.1 Mean Corpuscular Hemoglobin Concent 33.0 Red Cell Distribution Width 16.8 H Platelet Count 211 Mean Platelet Volume 10.2 Neutrophils % 69.7 Lymphocytes % 13.0 L Monocytes % 5.1 Eosinophils % 11.4 H Basophils % 0.4 Nucleated Red Blood Cells % 0.0 Neutrophils # 5.7 Lymphocytes # 1.1 Monocytes # 0.4 Eosinophils # 0.9 H Basophils # 0.0 Nucleated Red Blood Cells # 0.0 Sodium Level 137 Potassium Level 3.6 Chloride Level 104 Carbon Dioxide Level 20 L Anion Gap 17 H Blood Urea Nitrogen 26 H Creatinine 1.68 H Glucose Level 173 Calcium Level 7.8 L Phosphorus Level 5.0 H Magnesium Level 2.1 Test 05/25/17 06:33 Bedside Glucose 117 Medications Medications Current Medications Atorvastatin Calcium (Lipitor) 10 mg QHS GTB Last administered on 05/19/17 21: 00; Admin Dose 10 MG; Start 05/06/17 at 21:00 Bisacodyl (Dulcolax Supp) 10 mg Q48H [place] Last administered on 05/22/17 16:38; Admin Dose 10 MG; Start 05/06/17 at 17:00 Carbidopa/Levodopa (Sinemet (25/ 100)) 1 tab TID GTB Last administered on 14:01; Admin Dose 1 TAB; Start 05/06/17 at 21:00 Clopidogrel Bisulfate (plaVIX) 75 mg DAILY GTB Last administered on 05/17/17 10:40; Admin Dose 75 MG; Start 05/07/17 at 09:00; Status Future Hold Donepezil HCl (Aricept) 10 mg QHS GTB Last administered on 05/19/17 21:00; Admin Dose 10 MG; Start 05/06/17 at 21:00 Ferrous Sulfate (Ferrous Sulfate (Ec)) 325 mg BID PO Last administered on 09:09; Admin Dose 325 MG; Start 05/06/17 at 21:00 Folic Acid (Folic Acid) 1 mg DAILY GTB Last administered on 05/22/17 09:09; Admin Dose 1 MG; Start 05/07/17 at 09:00 Lactobacillus Acidophilus/ Rhamnosus (Culturelle) 1 cap QHS GTB Last administered on 05/19/17 21:00; Admin Dose 1 CAP; Start 05/06/17 at 21:00 Magnesium Hydroxide (Milk Of Mag) 30 ml Q24H GTB Last administered on 05/22/17 16:38; Admin Dose 30 ML; Start 05/06/17 at 17:00 Memantine (Namenda) 5 mg QAM GTB Last administered on 05/22/17 09:10; Admin Dose 5 MG; Start 05/07/17 at 09:00 Metoprolol Tartrate (Lopressor) 25 mg Q12H GTB Last administered on 05/18/17 16:47; Admin Dose 25 MG; Start 05/06/17 at 17:00; Status Future Hold Multivit/Ca Carb/ B Cmplx/FA/Prenat (Radhika-John) 1 tab DAILY GTB Last administered on 05/22/17 09:09; Admin Dose 1 TAB; Start 05/07/17 at 09:00 Pramipexole (Mirapex) 0.5 mg DAILY GTB Last administered on 05/22/17 09:09; Admin Dose 0.5 MG; Start 05/07/17 at 09:00 Sodium Biphosphate/ Sodium Phosphate (Fleet Enema Pediatric) 118 ml Q72H PRN [place] CONSTIPATION; Start 05/06/17 at 17:00 Citric Acid/ Sodium Citrate (Bicitra) 30 ml BID PO Last administered on 09:09; Admin Dose 30 ML; Start 05/06/17 at 21:00 Nystatin (Nystatin Powder) 1 applic BID TOP Last administered on 05/25/17 09:50 ; Admin Dose 1 APPLIC; Start 05/09/17 at 21:00 Collagenase (Santyl) 1 applic DAILY TOP Last administered on 05/25/17 09:50; Admin Dose 1 APPLIC; Start 05/09/17 at 15:00 Collagenase 1 applic 1 applic PRN PRN TOP WOUND CARE; Start 05/09/17 at 14:00 Norepinephrine 16 mg/Dextrose 500 ml @ 1.87 mls/hr TITRATE IV ; Start 05/10/17 at 14:00 Dopamine HCl/ Dextrose 250 ml @ 6.848 mls/ hr TITRATE IV Last administered on 05/25/17 02:40; Admin Dose 27.39 MLS/HR; Start 05/10/17 at 18:30 Miscellaneous Information 1 ea NOTE XX ; Start 05/11/17 at 08:00 Glucose (Glutose) 15 gm Q15M PRN PO DECREASED GLUCOSE; Start 05/11/17 at 08:00 Glucose (Glutose) 22.5 gm Q15M PRN PO DECREASED GLUCOSE; Start 05/11/17 at 08: 00 Dextrose (D50w Syringe) 25 ml Q15M PRN IV DECREASED GLUCOSE Last administered on 05/25/17 06:17; Admin Dose 25 ML; Start 05/11/17 at 08:00 Dextrose (D50w Syringe) 50 ml Q15M PRN IV DECREASED GLUCOSE Last administered on 05/15/17 00:11; Admin Dose 50 ML; Start 05/11/17 at 08:00 Glucagon (Glucagen) 1 mg Q15M PRN IM DECREASED GLUCOSE; Start 05/11/17 at 08:00 Glucose (Glutose) 15 gm Q15M PRN BUCCAL DECREASED GLUCOSE; Start 05/11/17 at 08 :00 Epoetin Vasyl (Epogen (Esrd)) 10,000 units MoWeFr@17 [place] Last administered on 05/24 18:54; Admin Dose 10,000 UNITS; Start 05/13/17 at 17:00 IV Flush (NS 10 ml) 10 ml PRN PRN IV IV PROTOCOL; Start 05/15/17 at 17:30 Pantoprazole 40 mg 40 mg BID@06,18 IV Last administered on 05/25/17 06:16; Admin Dose 40 MG; Start 05/16/17 at 10:00 Trimethoprim/ Sulfamethoxazole/ Dextrose (Bactrim/D5W) 260 ml @ 173.333 mls/hr Q8 IVPB Last administered on 05/25/17 06:36; Admin Dose 173.333 MLS/HR; Start 05/19/17 at 21:00 Amikacin Sulfate AMIKACIN PER PHARMACY NOTE XX ; Start 05/19/17 at 18:00 Cefepime HCl/ Sodium Chloride (Maxipime/NS) 100 ml @ 100 mls/hr Q24H IVPB Last administered on 05/24/17 21:21; Admin Dose 100 MLS/HR; Start 05/19/17 at 20 :00 Insulin Aspart NOVOLOG *MILD* ALGORI... Q6 SC ; Start 05/20/17 at 00:00 Amikacin Sulfate/ Sodium Chloride (Amikacin/NS) 101.4 ml @ 101.4 mls/ hr Q96H IVPB Last administered on 05/23/17 23:29; Admin Dose 101.4 MLS/HR; Start at 21:00 Midodrine (Proamatine) 10 mg TID@09,,17 GTB ; Start 05/23/17 at 09:00 Heparin Sodium (Porcine) 5000 unit 5,000 unit BID SC Last administered on 09:50; Admin Dose 5,000 UNIT; Start 05/23/17 at 09:00 Dextrose/Sodium Chloride (D5-1/2ns) 1,000 ml @ 75 mls/hr [id number] IV Last administered on 05/25/17 02:20; Admin Dose 75 MLS/HR; Start 05/23/17 at 11:30 SYLWIA SY MD May 25, 2017 12:33
--- NOTE | 2017-05-25 13:07 | PN ---
Date/Time of Note Date/Time of Note DATE: 05/25/17 TIME: 13:04 Assessment/Plan VTE Prophylaxis VTE Prophylaxis Intervention: other Lines/Catheters IV Catheter Type (from Nrsg): PICC Line Central line still needed: Yes Urinary Cath still in place: Yes Reason Cath still needed: urinary retention Assessment/Plan Assessment/Plan 1. Septic shock. Etiology secondary to pneumonia, cellulitis and underlying wounds. The patient is on pressor support, difficulty being weaned off. Will continue current treatment plan. Continue broad-spectrum antibiotics. Continue IV fluids. 2. Anemia. Monitor H and H levels. Patient is Epogen. The patient is status post blood transfusion. 3. Dysphagia. The patient is pending possible G-tube placement today by GI. Will continue to monitor. 4. Ventilator dependent respiratory failure. Vent settings have been reviewed. ABGs reviewed. Continue to monitor. Follow up with pulmonary. 5. Nonoliguric acute kidney injury on top of chronic kidney disease stage 4, etiology secondary to hemodynamics. Continue current treatment. Supportive care. Renal dose all medications. Avoid nephrotoxins. 6. Encephalopathy and advanced dementia. Etiology is toxic metabolic. Continue to monitor. 7. Mineral bone disorder. Monitor calcium and phosphorus levels. 8. Coronary artery disease. Continue current treatment plan. 9. Diabetes. Continue current insulin regimen. 10. Decubitus wound. Continue wound care. 11. Gastrointestinal and deep venous thrombosis prophylaxis. Continue PPI and heparin. Subjective 24 Hr Interval Summary Free Text/Dictation SUBJECTIVE: The patient remains critically on pressor support. No other events noted. vent settings and cxr were reviewed d/w Dr Rosas no new rash, hematuria, melena, tachypnea, fever OBJECTIVE DATA: HEENT: Head is normocephalic. Neck shows a trach. HEART: Regular rate. LUNGS: Diminished breath sounds at the base. ABDOMEN: Soft, nontender to palpation. Positive PEG. EXTREMITIES: Negative for clubbing, cyanosis. Positive edema. Positive contractures. DERMATOLOGIC: No rashes, no positive wounds. NEUROLOGIC: No change in exam. MEDICATIONS: Reviewed. time of skilled nursing: 39 min Exam/Review of Systems Vital Signs Vitals Vital Signs Date Time Temp Pulse Resp B/P Pulse Ox O2 Delivery O2 Flow Rate FiO2 05/25/17 11:00 78 16 99 30 05/25/17 11:00 95/47 Mechanical Ventilator 05/25/17 08:00 96.9 Intake and Output 05/24/17 05/24/17 05/25/17 15:00 23:00 07:00 Intake Total 718.981 ml 1045.946 ml 830.152 ml Output Total 725 ml 700 ml 650 ml Balance -6.019 ml 345.946 ml 180.152 ml Results Result Diagram: 05/25/17 0445 05/25/17 0445 Results 24 hrs Laboratory Tests Test 05/24/17 18:51 05/25/17 00:25 05/25/17 04:45 05/25/17 06:07 Bedside Glucose 84 86 61 L White Blood Count 8.1 Red Blood Count 3.65 L Hemoglobin 11.0 L Hematocrit 33.3 L Mean Corpuscular Volume 91.2 Mean Corpuscular Hemoglobin 30.1 Mean Corpuscular Hemoglobin Concent 33.0 Red Cell Distribution Width 16.8 H Platelet Count 211 Mean Platelet Volume 10.2 Neutrophils % 69.7 Lymphocytes % 13.0 L Monocytes % 5.1 Eosinophils % 11.4 H Basophils % 0.4 Nucleated Red Blood Cells % 0.0 Neutrophils # 5.7 Lymphocytes # 1.1 Monocytes # 0.4 Eosinophils # 0.9 H Basophils # 0.0 Nucleated Red Blood Cells # 0.0 Sodium Level 137 Potassium Level 3.6 Chloride Level 104 Carbon Dioxide Level 20 L Anion Gap 17 H Blood Urea Nitrogen 26 H Creatinine 1.68 H Glucose Level 173 Calcium Level 7.8 L Phosphorus Level 5.0 H Magnesium Level 2.1 Test 05/25/17 06:33 05/25/17 12:30 Bedside Glucose 117 71 Medications Medications Current Medications Atorvastatin Calcium (Lipitor) 10 mg QHS GTB Last administered on 05/19/17 21: 00; Admin Dose 10 MG; Start 05/06/17 at 21:00 Bisacodyl (Dulcolax Supp) 10 mg Q48H [place] Last administered on 05/22/17 16:38; Admin Dose 10 MG; Start 05/06/17 at 17:00 Carbidopa/Levodopa (Sinemet (25/ 100)) 1 tab TID GTB Last administered on 14:01; Admin Dose 1 TAB; Start 05/06/17 at 21:00 Clopidogrel Bisulfate (plaVIX) 75 mg DAILY GTB Last administered on 05/17/17 10:40; Admin Dose 75 MG; Start 05/07/17 at 09:00; Status Future Hold Donepezil HCl (Aricept) 10 mg QHS GTB Last administered on 05/19/17 21:00; Admin Dose 10 MG; Start 05/06/17 at 21:00 Ferrous Sulfate (Ferrous Sulfate (Ec)) 325 mg BID PO Last administered on 09:09; Admin Dose 325 MG; Start 05/06/17 at 21:00 Folic Acid (Folic Acid) 1 mg DAILY GTB Last administered on 05/22/17 09:09; Admin Dose 1 MG; Start 05/07/17 at 09:00 Lactobacillus Acidophilus/ Rhamnosus (Culturelle) 1 cap QHS GTB Last administered on 05/19/17 21:00; Admin Dose 1 CAP; Start 05/06/17 at 21:00 Magnesium Hydroxide (Milk Of Mag) 30 ml Q24H GTB Last administered on 05/22/17 16:38; Admin Dose 30 ML; Start 05/06/17 at 17:00 Memantine (Namenda) 5 mg QAM GTB Last administered on 05/22/17 09:10; Admin Dose 5 MG; Start 05/07/17 at 09:00 Metoprolol Tartrate (Lopressor) 25 mg Q12H GTB Last administered on 05/18/17 16:47; Admin Dose 25 MG; Start 05/06/17 at 17:00; Status Future Hold Multivit/Ca Carb/ B Cmplx/FA/Prenat (Radhika-John) 1 tab DAILY GTB Last administered on 05/22/17 09:09; Admin Dose 1 TAB; Start 05/07/17 at 09:00 Pramipexole (Mirapex) 0.5 mg DAILY GTB Last administered on 05/22/17 09:09; Admin Dose 0.5 MG; Start 05/07/17 at 09:00 Sodium Biphosphate/ Sodium Phosphate (Fleet Enema Pediatric) 118 ml Q72H PRN [place] CONSTIPATION; Start 05/06/17 at 17:00 Citric Acid/ Sodium Citrate (Bicitra) 30 ml BID PO Last administered on 09:09; Admin Dose 30 ML; Start 05/06/17 at 21:00 Nystatin (Nystatin Powder) 1 applic BID TOP Last administered on 05/25/17 09:50 ; Admin Dose 1 APPLIC; Start 05/09/17 at 21:00 Collagenase (Santyl) 1 applic DAILY TOP Last administered on 05/25/17 09:50; Admin Dose 1 APPLIC; Start 05/09/17 at 15:00 Collagenase 1 applic 1 applic PRN PRN TOP WOUND CARE; Start 05/09/17 at 14:00 Norepinephrine 16 mg/Dextrose 500 ml @ 1.87 mls/hr TITRATE IV ; Start 05/10/17 at 14:00 Dopamine HCl/ Dextrose 250 ml @ 6.848 mls/ hr TITRATE IV Last administered on 05/25/17 12:54; Admin Dose 27.39 MLS/HR; Start 05/10/17 at 18:30 Miscellaneous Information 1 ea NOTE XX ; Start 05/11/17 at 08:00 Glucose (Glutose) 15 gm Q15M PRN PO DECREASED GLUCOSE; Start 05/11/17 at 08:00 Glucose (Glutose) 22.5 gm Q15M PRN PO DECREASED GLUCOSE; Start 05/11/17 at 08: 00 Dextrose (D50w Syringe) 25 ml Q15M PRN IV DECREASED GLUCOSE Last administered on 05/25/17 06:17; Admin Dose 25 ML; Start 05/11/17 at 08:00 Dextrose (D50w Syringe) 50 ml Q15M PRN IV DECREASED GLUCOSE Last administered on 05/15/17 00:11; Admin Dose 50 ML; Start 05/11/17 at 08:00 Glucagon (Glucagen) 1 mg Q15M PRN IM DECREASED GLUCOSE; Start 05/11/17 at 08:00 Glucose (Glutose) 15 gm Q15M PRN BUCCAL DECREASED GLUCOSE; Start 05/11/17 at 08 :00 Epoetin Vasyl (Epogen (Esrd)) 10,000 units MoWeFr@17 [place] Last administered on 05/24 18:54; Admin Dose 10,000 UNITS; Start 05/13/17 at 17:00 IV Flush (NS 10 ml) 10 ml PRN PRN IV IV PROTOCOL; Start 05/15/17 at 17:30 Pantoprazole 40 mg 40 mg BID@06,18 IV Last administered on 05/25/17 06:16; Admin Dose 40 MG; Start 05/16/17 at 10:00 Trimethoprim/ Sulfamethoxazole/ Dextrose (Bactrim/D5W) 260 ml @ 173.333 mls/hr Q8 IVPB Last administered on 05/25/17 06:36; Admin Dose 173.333 MLS/HR; Start 05/19/17 at 21:00 Amikacin Sulfate AMIKACIN PER PHARMACY NOTE XX ; Start 05/19/17 at 18:00 Cefepime HCl/ Sodium Chloride (Maxipime/NS) 100 ml @ 100 mls/hr Q24H IVPB Last administered on 05/24/17 21:21; Admin Dose 100 MLS/HR; Start 05/19/17 at 20 :00 Insulin Aspart NOVOLOG *MILD* ALGORI... Q6 [place] ; Start 05/20/17 at 00:00 Amikacin Sulfate/ Sodium Chloride (Amikacin/NS) 101.4 ml @ 101.4 mls/ hr Q96H IVPB Last administered on 05/23/17 23:29; Admin Dose 101.4 MLS/HR; Start at 21:00 Midodrine (Proamatine) 10 mg TID@,,17 GTB ; Start 05/23/17 at 09:00 Heparin Sodium (Porcine) 5000 unit 5,000 unit BID SC Last administered on 09:50; Admin Dose 5,000 UNIT; Start 05/23/17 at 09:00 Dextrose/Sodium Chloride (D5-1/2ns) 1,000 ml @ 75 mls/hr [id number] IV Last administered on 05/25/17 02:20; Admin Dose 75 MLS/HR; Start 05/23/17 at 11:30 DELIA FINE DO May 25, 2017 13:07
--- NOTE | 2017-05-25 14:31 | CONS ---
Date/Time of Note Date/Time of Note DATE: 05/25/17 TIME: 14:28 Assessment/Plan Assessment/Plan Chief Complaint/Hosp Course ID PROGRESS NOTE CURRENT ABX DAY => Colistin INH #10 +Cefepime #7 + Amikacin #7 + Bactrim IV #7 TOTAL ABX DAY # 16 Merrem#10 => DC 7/30 Vanco IV #10 => DC 7/30 24H INTERVAL SUMMARY * Chronic encephalopath -- nonverbal on the Vent, no fevers, WBC normalized * GI NOTE REVIEWED: Large gastrocutaneous fistula, endoscopically it is not possible given to keep the largest diameter GJ tube in place=> PLAN is for placement of JT * Clinically status quo -- pressors, obtunded => MICRO ABD RESULTED PSAR MDRO * REPEAT ABD WOUND CX: OUND CULTURE Final Organism 1 PSEUDOMONAS AERUGINOSA QUANTITY 2+ P.AERUG M.I.C. RX --------- --- AMIKACIN <=2 S AZTREONAM R CEFEPIME 8 S CEFTAZIDIME 16 I CIPROFLOXACIN >=4 R GENTAMICIN >=16 R IMIPENEM >=16 R LEVOFLOXACIN >=8 R TOBRAMYCIN 8 I PIPERACILLIN/TAZOBACTAM R * 05/14/17 SPUTUM: RESPIRATORY CULTURE FINAL P.AERUG STENMAL M.I.C. RX M.I.C. RX --------- --- --------- --- AMIKACIN <=2 S AZTREONAM R CEFEPIME 16 I CEFTAZIDIME 16 I CIPROFLOXACIN >=4 R GENTAMICIN 2 S IMIPENEM >=16 R LEVOFLOXACIN >=8 R >=8 R TOBRAMYCIN <=1 S TRIMETHOPRIM/SULFAMETHOXAZOLE 0.047 S PIPERACILLIN/TAZOBACTAM R PHYSICAL EXAMINATION: GENERAL: VSS,NAD, no fevers == Obese, eyes open HEENT: NGT->Secure / ETT secure NECK: Supple, trach-> midline CHEST: Equal chest rise bilaterally, Vented HEART: Pulse RRR ABDOMEN: Soft -> see photos large EC fistula residual healing scar, cellulitis w/(+)drainage EXTREMITIES: Warm, no edema SKIN: Warm, dry ID ASSESSMENT: 86 yo F w/PMHx Obesity,Parkinson's dementia w/chronic encephalopathy admitted with: 1. Sepsis w/shock, hypothermia, leukocytosis, lactic acidosis => multifactorial as below * 05/07/17 BCx (-) 2. Acute on chronic respiratory failure w/Trach 3. HCAP => Tracheobronchitis * CT (+)Large right pleural effusion/small left effusion * Respiratory Cx 05/14: * Organism 1 PSEUDOMONAS AERUGINOSA QUANTITY 3+ Organism 2 STENOTROPHOMONAS MALTOPHILIA QUANTITY 3+ 4. 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 5. UTI as per urinalysis on admission => urine was not sent for culture 6. Multiple chronic decub ulcers 7. RASH on admission s/p empiric Elimite x1 w/(-)skin scraping for scabies 8. Acute kidney injury 9. Diabetes. 10. Acute on chronic anemia. 11. 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 GI PLAN: Large gastrocutaneous fistula, endoscopically it is not possible given to keep the largest diameter GJ tube in place=> proceed to placement of JT 2. CONTINUE ABX => ethical dilemma: Patient remains on aggressive course of medical care despite poor quality of life, at age 86 poor prognosis * ABX for MDRO with risk of target organ damage + breeding new MDRO ? Ethical Dilemma * Watch renal fx on Bactrim IV + Aminoglycoside -> MDRO leave limited options, the only other option is to start Colistin. * Doubt ABX Rx will reverse poor prognosis; consider palliative care approach . . . Problems: Consultation Date/Type/Reason Admit Date/Time May 06, 2017 at 16:34 Initial Consult Date 05/12/17 Type of Consultation: id Exam/Review of Systems Vital Signs Vitals Vital Signs Date Time Temp Pulse Resp B/P Pulse Ox O2 Delivery O2 Flow Rate FiO2 05/25/17 12:00 81 05/25/17 11:00 16 99 30 05/25/17 11:00 95/47 Mechanical Ventilator 05/25/17 08:00 96.9 Intake and Output 05/24/17 05/24/17 05/25/17 15:00 23:00 07:00 Intake Total 718.981 ml 1045.946 ml 830.152 ml Output Total 725 ml 700 ml 650 ml Balance -6.019 ml 345.946 ml 180.152 ml Results Result Diagram: 05/25/17 0445 05/25/17 0445 Results 24 hrs Laboratory Tests Test 05/24/17 18:51 05/25/17 00:25 05/25/17 04:45 05/25/17 04:53 Bedside Glucose 84 86 191 White Blood Count 8.1 Red Blood Count 3.65 L Hemoglobin 11.0 L Hematocrit 33.3 L Mean Corpuscular Volume 91.2 Mean Corpuscular Hemoglobin 30.1 Mean Corpuscular Hemoglobin Concent 33.0 Red Cell Distribution Width 16.8 H Platelet Count 211 Mean Platelet Volume 10.2 Neutrophils % 69.7 Lymphocytes % 13.0 L Monocytes % 5.1 Eosinophils % 11.4 H Basophils % 0.4 Nucleated Red Blood Cells % 0.0 Neutrophils # 5.7 Lymphocytes # 1.1 Monocytes # 0.4 Eosinophils # 0.9 H Basophils # 0.0 Nucleated Red Blood Cells # 0.0 Sodium Level 137 Potassium Level 3.6 Chloride Level 104 Carbon Dioxide Level 20 L Anion Gap 17 H Blood Urea Nitrogen 26 H Creatinine 1.68 H Glucose Level 173 Calcium Level 7.8 L Phosphorus Level 5.0 H Magnesium Level 2.1 Test 05/25/17 06:07 05/25/17 06:33 05/25/17 12:30 Bedside Glucose 61 L 117 71 Medications Medications Current Medications Atorvastatin Calcium (Lipitor) 10 mg QHS GTB Last administered on 05/19/17 21: 00; Admin Dose 10 MG; Start 05/06/17 at 21:00 Bisacodyl (Dulcolax Supp) 10 mg Q48H [place] Last administered on 05/22/17 16:38; Admin Dose 10 MG; Start 05/06/17 at 17:00 Carbidopa/Levodopa (Sinemet (25/ 100)) 1 tab TID GTB Last administered on 14:01; Admin Dose 1 TAB; Start 05/06/17 at 21:00 Clopidogrel Bisulfate (plaVIX) 75 mg DAILY GTB Last administered on 05/17/17 10:40; Admin Dose 75 MG; Start 05/07/17 at 09:00; Status Future Hold Donepezil HCl (Aricept) 10 mg QHS GTB Last administered on 05/19/17 21:00; Admin Dose 10 MG; Start 05/06/17 at 21:00 Ferrous Sulfate (Ferrous Sulfate (Ec)) 325 mg BID PO Last administered on 09:09; Admin Dose 325 MG; Start 05/06/17 at 21:00 Folic Acid (Folic Acid) 1 mg DAILY GTB Last administered on 05/22/17 09:09; Admin Dose 1 MG; Start 05/07/17 at 09:00 Lactobacillus Acidophilus/ Rhamnosus (Culturelle) 1 cap QHS GTB Last administered on 05/19/17 21:00; Admin Dose 1 CAP; Start 05/06/17 at 21:00 Magnesium Hydroxide (Milk Of Mag) 30 ml Q24H GTB Last administered on 05/22/17 16:38; Admin Dose 30 ML; Start 05/06/17 at 17:00 Memantine (Namenda) 5 mg QAM GTB Last administered on 05/22/17 09:10; Admin Dose 5 MG; Start 05/07/17 at 09:00 Metoprolol Tartrate (Lopressor) 25 mg Q12H GTB Last administered on 05/18/17 16:47; Admin Dose 25 MG; Start 05/06/17 at 17:00; Status Future Hold Multivit/Ca Carb/ B Cmplx/FA/Prenat (Radhika-John) 1 tab DAILY GTB Last administered on 05/22/17 09:09; Admin Dose 1 TAB; Start 05/07/17 at 09:00 Pramipexole (Mirapex) 0.5 mg DAILY GTB Last administered on 05/22/17 09:09; Admin Dose 0.5 MG; Start 05/07/17 at 09:00 Sodium Biphosphate/ Sodium Phosphate (Fleet Enema Pediatric) 118 ml Q72H PRN [place] CONSTIPATION; Start 05/06/17 at 17:00 Citric Acid/ Sodium Citrate (Bicitra) 30 ml BID PO Last administered on 09:09; Admin Dose 30 ML; Start 05/06/17 at 21:00 Nystatin (Nystatin Powder) 1 applic BID TOP Last administered on 05/25/17 09:50 ; Admin Dose 1 APPLIC; Start 05/09/17 at 21:00 Collagenase (Santyl) 1 applic DAILY TOP Last administered on 05/25/17 09:50; Admin Dose 1 APPLIC; Start 05/09/17 at 15:00 Collagenase 1 applic 1 applic PRN PRN TOP WOUND CARE; Start 05/09/17 at 14:00 Norepinephrine 16 mg/Dextrose 500 ml @ 1.87 mls/hr TITRATE IV ; Start 05/10/17 at 14:00 Dopamine HCl/ Dextrose 250 ml @ 6.848 mls/ hr TITRATE IV Last administered on 05/25/17 12:54; Admin Dose 27.39 MLS/HR; Start 05/10/17 at 18:30 Miscellaneous Information 1 ea NOTE XX ; Start 05/11/17 at 08:00 Glucose (Glutose) 15 gm Q15M PRN PO DECREASED GLUCOSE; Start 05/11/17 at 08:00 Glucose (Glutose) 22.5 gm Q15M PRN PO DECREASED GLUCOSE; Start 05/11/17 at 08: 00 Dextrose (D50w Syringe) 25 ml Q15M PRN IV DECREASED GLUCOSE Last administered on 05/25/17 06:17; Admin Dose 25 ML; Start 05/11/17 at 08:00 Dextrose (D50w Syringe) 50 ml Q15M PRN IV DECREASED GLUCOSE Last administered on 05/15/17 00:11; Admin Dose 50 ML; Start 05/11/17 at 08:00 Glucagon (Glucagen) 1 mg Q15M PRN IM DECREASED GLUCOSE; Start 05/11/17 at 08:00 Glucose (Glutose) 15 gm Q15M PRN BUCCAL DECREASED GLUCOSE; Start 05/11/17 at 08 :00 Epoetin Vasyl (Epogen (Esrd)) 10,000 units MoWeFr@17 SC Last administered on 05/24 18:54; Admin Dose 10,000 UNITS; Start 05/13/17 at 17:00 IV Flush (NS 10 ml) 10 ml PRN PRN IV IV PROTOCOL; Start 05/15/17 at 17:30 Pantoprazole 40 mg 40 mg BID@06,18 IV Last administered on 05/25/17 06:16; Admin Dose 40 MG; Start 05/16/17 at 10:00 Trimethoprim/ Sulfamethoxazole/ Dextrose (Bactrim/D5W) 260 ml @ 173.333 mls/hr Q8 IVPB Last administered on 05/25/17 06:36; Admin Dose 173.333 MLS/HR; Start 05/19/17 at 21:00 Amikacin Sulfate AMIKACIN PER PHARMACY NOTE XX ; Start 05/19/17 at 18:00 Cefepime HCl/ Sodium Chloride (Maxipime/NS) 100 ml @ 100 mls/hr Q24H IVPB Last administered on 05/24/17 21:21; Admin Dose 100 MLS/HR; Start 05/19/17 at 20 :00 Insulin Aspart NOVOLOG *MILD* ALGORI... Q6 SC ; Start 05/20/17 at 00:00 Amikacin Sulfate/ Sodium Chloride (Amikacin/NS) 101.4 ml @ 101.4 mls/ hr Q96H IVPB Last administered on 05/23/17 23:29; Admin Dose 101.4 MLS/HR; Start at 21:00 Midodrine (Proamatine) 10 mg TID@,,17 GTB ; Start 05/23/17 at 09:00 Heparin Sodium (Porcine) 5000 unit 5,000 unit BID SC Last administered on 09:50; Admin Dose 5,000 UNIT; Start 05/23/17 at 09:00 Dextrose/Sodium Chloride (D5-1/2ns) 1,000 ml @ 75 mls/hr [id number] IV Last administered on 05/25/17 02:20; Admin Dose 75 MLS/HR; Start 05/23/17 at 11:30 SYLVIA PADRON NP May 25, 2017 14:31
--- NOTE | 2017-05-25 14:41 | CONS ---
Date/Time of Note Date/Time of Note DATE: 05/25/17 TIME: 14:38 Consult Date/Type/Reason Admit Date/Time May 06, 2017 at 16:34 Initial Consult Date 05/22/17 Type of Consultation: Pulm/CCM Subjective On the vent via a trach. On/off pressor support. Objective Vital Signs Date Time Temp Pulse Resp B/P Pulse Ox O2 Delivery O2 Flow Rate FiO2 05/25/17 12:00 81 05/25/17 11:00 16 99 30 05/25/17 11:00 95/47 Mechanical Ventilator 05/25/17 08:00 96.9 Intake and Output 05/24/17 05/24/17 05/25/17 15:00 23:00 07:00 Intake Total 718.981 ml 1045.946 ml 830.152 ml Output Total 725 ml 700 ml 650 ml Balance -6.019 ml 345.946 ml 180.152 ml Exam HEENT: Neck supple; no JVD; no LAD; + trach site clean CVS: RRR, S1 and S2 CHEST: Clear ABD: Soft, NT, + BS EXT: No c/c; edema: + decubs Results/Medications Result Diagram: 05/25/17 0445 05/25/17 0445 Results 24 hrs Laboratory Tests Test 05/24/17 18:51 05/25/17 00:25 05/25/17 04:45 05/25/17 04:53 Bedside Glucose 84 86 191 White Blood Count 8.1 Red Blood Count 3.65 L Hemoglobin 11.0 L Hematocrit 33.3 L Mean Corpuscular Volume 91.2 Mean Corpuscular Hemoglobin 30.1 Mean Corpuscular Hemoglobin Concent 33.0 Red Cell Distribution Width 16.8 H Platelet Count 211 Mean Platelet Volume 10.2 Neutrophils % 69.7 Lymphocytes % 13.0 L Monocytes % 5.1 Eosinophils % 11.4 H Basophils % 0.4 Nucleated Red Blood Cells % 0.0 Neutrophils # 5.7 Lymphocytes # 1.1 Monocytes # 0.4 Eosinophils # 0.9 H Basophils # 0.0 Nucleated Red Blood Cells # 0.0 Sodium Level 137 Potassium Level 3.6 Chloride Level 104 Carbon Dioxide Level 20 L Anion Gap 17 H Blood Urea Nitrogen 26 H Creatinine 1.68 H Glucose Level 173 Calcium Level 7.8 L Phosphorus Level 5.0 H Magnesium Level 2.1 Test 05/25/17 06:07 05/25/17 06:33 05/25/17 12:30 Bedside Glucose 61 L 117 71 Medications Current Medications Atorvastatin Calcium (Lipitor) 10 mg QHS GTB Last administered on 05/19/17 21: 00; Admin Dose 10 MG; Start 05/06/17 at 21:00 Bisacodyl (Dulcolax Supp) 10 mg Q48H [place] Last administered on 05/22/17 16:38; Admin Dose 10 MG; Start 05/06/17 at 17:00 Carbidopa/Levodopa (Sinemet (25/ 100)) 1 tab TID GTB Last administered on 14:01; Admin Dose 1 TAB; Start 05/06/17 at 21:00 Clopidogrel Bisulfate (plaVIX) 75 mg DAILY GTB Last administered on 05/17/17 10:40; Admin Dose 75 MG; Start 05/07/17 at 09:00; Status Future Hold Donepezil HCl (Aricept) 10 mg QHS GTB Last administered on 05/19/17 21:00; Admin Dose 10 MG; Start 05/06/17 at 21:00 Ferrous Sulfate (Ferrous Sulfate (Ec)) 325 mg BID PO Last administered on 09:09; Admin Dose 325 MG; Start 05/06/17 at 21:00 Folic Acid (Folic Acid) 1 mg DAILY GTB Last administered on 05/22/17 09:09; Admin Dose 1 MG; Start 05/07/17 at 09:00 Lactobacillus Acidophilus/ Rhamnosus (Culturelle) 1 cap QHS GTB Last administered on 05/19/17 21:00; Admin Dose 1 CAP; Start 05/06/17 at 21:00 Magnesium Hydroxide (Milk Of Mag) 30 ml Q24H GTB Last administered on 05/22/17 16:38; Admin Dose 30 ML; Start 05/06/17 at 17:00 Memantine (Namenda) 5 mg QAM GTB Last administered on 05/22/17 09:10; Admin Dose 5 MG; Start 05/07/17 at 09:00 Metoprolol Tartrate (Lopressor) 25 mg Q12H GTB Last administered on 05/18/17 16:47; Admin Dose 25 MG; Start 05/06/17 at 17:00; Status Future Hold Multivit/Ca Carb/ B Cmplx/FA/Prenat (Radhika-John) 1 tab DAILY GTB Last administered on 05/22/17 09:09; Admin Dose 1 TAB; Start 05/07/17 at 09:00 Pramipexole (Mirapex) 0.5 mg DAILY GTB Last administered on 05/22/17 09:09; Admin Dose 0.5 MG; Start 05/07/17 at 09:00 Sodium Biphosphate/ Sodium Phosphate (Fleet Enema Pediatric) 118 ml Q72H PRN [place] CONSTIPATION; Start 05/06/17 at 17:00 Citric Acid/ Sodium Citrate (Bicitra) 30 ml BID PO Last administered on 09:09; Admin Dose 30 ML; Start 05/06/17 at 21:00 Nystatin (Nystatin Powder) 1 applic BID TOP Last administered on 05/25/17 09:50 ; Admin Dose 1 APPLIC; Start 05/09/17 at 21:00 Collagenase (Santyl) 1 applic DAILY TOP Last administered on 05/25/17 09:50; Admin Dose 1 APPLIC; Start 05/09/17 at 15:00 Collagenase 1 applic 1 applic PRN PRN TOP WOUND CARE; Start 05/09/17 at 14:00 Norepinephrine 16 mg/Dextrose 500 ml @ 1.87 mls/hr TITRATE IV ; Start 05/10/17 at 14:00 Dopamine HCl/ Dextrose 250 ml @ 6.848 mls/ hr TITRATE IV Last administered on 05/25/17 12:54; Admin Dose 27.39 MLS/HR; Start 05/10/17 at 18:30 Miscellaneous Information 1 ea NOTE XX ; Start 05/11/17 at 08:00 Glucose (Glutose) 15 gm Q15M PRN PO DECREASED GLUCOSE; Start 05/11/17 at 08:00 Glucose (Glutose) 22.5 gm Q15M PRN PO DECREASED GLUCOSE; Start 05/11/17 at 08: 00 Dextrose (D50w Syringe) 25 ml Q15M PRN IV DECREASED GLUCOSE Last administered on 05/25/17 06:17; Admin Dose 25 ML; Start 05/11/17 at 08:00 Dextrose (D50w Syringe) 50 ml Q15M PRN IV DECREASED GLUCOSE Last administered on 05/15/17 00:11; Admin Dose 50 ML; Start 05/11/17 at 08:00 Glucagon (Glucagen) 1 mg Q15M PRN IM DECREASED GLUCOSE; Start 05/11/17 at 08:00 Glucose (Glutose) 15 gm Q15M PRN BUCCAL DECREASED GLUCOSE; Start 05/11/17 at 08 :00 Epoetin Vasyl (Epogen (Esrd)) 10,000 units MoWeFr@17 SC Last administered on 05/24 18:54; Admin Dose 10,000 UNITS; Start 05/13/17 at 17:00 IV Flush (NS 10 ml) 10 ml PRN PRN IV IV PROTOCOL; Start 05/15/17 at 17:30 Pantoprazole 40 mg 40 mg BID@06,18 IV Last administered on 05/25/17 06:16; Admin Dose 40 MG; Start 05/16/17 at 10:00 Trimethoprim/ Sulfamethoxazole/ Dextrose (Bactrim/D5W) 260 ml @ 173.333 mls/hr Q8 IVPB Last administered on 05/25/17 06:36; Admin Dose 173.333 MLS/HR; Start 05/19/17 at 21:00 Amikacin Sulfate AMIKACIN PER PHARMACY NOTE XX ; Start 05/19/17 at 18:00 Cefepime HCl/ Sodium Chloride (Maxipime/NS) 100 ml @ 100 mls/hr Q24H IVPB Last administered on 05/24/17 21:21; Admin Dose 100 MLS/HR; Start 05/19/17 at 20 :00 Insulin Aspart NOVOLOG *MILD* ALGORI... Q6 SC ; Start 05/20/17 at 00:00 Amikacin Sulfate/ Sodium Chloride (Amikacin/NS) 101.4 ml @ 101.4 mls/ hr Q96H IVPB Last administered on 05/23/17 23:29; Admin Dose 101.4 MLS/HR; Start at 21:00 Midodrine (Proamatine) 10 mg TID@,, GTB ; Start 05/23/17 at 09:00 Heparin Sodium (Porcine) 5000 unit 5,000 unit BID SC Last administered on 09:50; Admin Dose 5,000 UNIT; Start 05/23/17 at 09:00 Dextrose/Sodium Chloride (D5-1/2ns) 1,000 ml @ 75 mls/hr [id number] IV Last administered on 05/25/17t 02:20; Admin Dose 75 MLS/HR; Start 05/23/17 at 11:30 Assessment/Plan Additional Assessment/Plan IMP: 1. Septic shock 2. VDRF 3. ? HCAP 4. Cellulitis 5. Urosepsis 6. Encephalopathy 7. STARLA RECS: 1. Abx per ID 2. Vent support 3. Palliative Care 4. TF's/Free H20 35 min cc time PINKY GHOSH MD May 25, 2017 14:41
[2017-05-25] MEDS: MAGNESIUM HYDROXIDE 30ML CUP GTB SCH (17:00)
[2017-05-25] MEDS: CEFEPIME HCL 0.5 GM in SOD CHLORIDE 0.9% 100 ML IVPB SCH (20:20)
[2017-05-25] MEDS: ATORVASTATIN 10 MG TAB GTB SCH (21:00)
[2017-05-25] MEDS: DONEPEZIL 10 MG TAB GTB SCH (21:00)
[2017-05-25] MEDS: LACTOBACILLUS RHAMNOSUS CAP GTB SCH (21:00)
[2017-05-26] VITALS (99 sets, daily range): BP systolic 51–118; BP diastolic 27–72; PULSE 76–93; RESP 12–23
[2017-05-26 04:53] LABS: BASOPHILS % 0.6 % (0.0-2.0); EOSINOPHILS # 0.6 10^3/ul (0.0-0.5); EOSINOPHILS % 8.6 % (0.0-7.0); HEMATOCRIT 32.5 % (37.0-47.0); HEMOGLOBIN 10.5 g/dl (12.0-16.0); LYMPHOCYTES # 1.1 10^3/ul (0.8-2.9); LYMPHOCYTES % 15.5 % (15.0-51.0); MEAN CORPUSCULAR HEMOGLOBIN 29.2 pg (29.0-33.0); MEAN CORPUSCULAR HGB CONC 32.3 g/dl (32.0-37.0); MEAN CORPUSCULAR VOLUME 90.5 fl (82.0-101.0); MEAN PLATELET VOLUME 10.6 fl (7.4-10.4); MONOCYTE # 0.4 10^3/ul (0.3-0.9); MONOCYTES % 5.5 % (0.0-11.0); NEUTROPHIL # 4.8 10^3/ul (1.6-7.5); NEUTROPHILS % 69.5 % (39.0-77.0); PLATELET COUNT 197 10^3/UL (140-415); RED BLOOD COUNT 3.59 10^6/ul (4.20-5.40); WHITE BLOOD COUNT 6.9 10^3/ul (4.8-10.8)
[2017-05-26 05:19] LABS: CALCIUM 7.9 mg/dl (8.4-10.2); CREATININE 1.71 mg/dl (0.44-1.00); MAGNESIUM 2.1 mg/dl (1.7-2.5); PHOSPHORUS 4.7 mg/dl (2.5-4.9); POTASSIUM 3.7 mmol/L (3.5-5.1)
[2017-05-26] MEDS: PANTOPRAZOLE 40 MG INJ IV SCH ×2 (05:51→17:55)
[2017-05-26] MEDS: DEXTROSE 50% 50 ML SYRINGE IV PRN ×4 (05:51→21:15)
[2017-05-26] MEDS: INSULIN ASPART [NOVOLOG] 3 ML PEN SC SCH ×6 (06:00→21:00)
[2017-05-26] MEDS: DEXTROSE 5%-0.45% NACL 1,000 ML IV SCH (06:29)
[2017-05-26] MEDS: TRIMETHOPRIM/SULFAMETHOXAZOLE 10 ML in DEXTROSE 5% 250 ML IVPB SCH ×3 (06:45→21:34)
[2017-05-26] MEDS: COLISTIMETHATE (25 MG/ML INHAL SYG) NEB SCH (08:05)
[2017-05-26] MEDS: DOPamine-D5W 1.6 MG/ML 250 ML IV SCH ×2 (08:35→17:55)
--- NOTE | 2017-05-26 08:43 | PN ---
Date/Time of Note Date/Time of Note DATE: 05/26/17 TIME: 08:30 Assessment/Plan Lines/Catheters IV Catheter Type (from Nrs): PICC Line Collazo in Place (from Nrs): Yes Assessment/Plan Chief Complaint/Hosp Course 1. G-tube dislodgement: replaced with gjtube by GI, continued bilious drainage peristomal; gj tube replacement attempt-unable due to too large of an opening; still unable to be weaned from pressors -hospice/palliative -consider nj tube for meds/nutrition in the interim -possible surgical placement of jtube when medically stable 2. Septic shock: multifactorial: 2/2: pneumonia + cellulitis + wounds; persistent, unable to be weaned from pressors -abx -supportive 3. Respiratory failure with trach: PNA with pulm edema; comfortable on vent -pulmonary toilet -abx -supportive 4.STARLA with CKD; +urine output; cr up -judicious fluids -renally dose meds -per nephrology 5. Normocytic anemia: previous coffee ground drainage peristoma;no acute bleed noted; h/h stable -monitor and transfuse as needed -continue Epogen 6. CHF -medical management 7. Diabetes -medical management 8. Acute encephalopathy with history of advanced dementia; unchanged neurologically -supportive 9. Decubitus wound. -continue wound care. 10. Peristomal cellulitis 2/2 #1; +pseudomonas: improving -local care -abx per sensitivity 11. Pancytopenia: improving Patient seen and examined in collaboration with Dr. Meliton Blackburn. Thank you. Problems: Subjective 24 Hr Interval Summary Continues on pressor support. Unable to place larger gjtube by GI due too large of an opening. Patient remains flat, non-responsive, open eyes without tracking , blink or corneal reflex. Continues npo. No fevers, chills, n/v/d. Detailed Summary Eyes: no complaints ENT: no complaints Respiratory: no complaints Cardiovascular: no complaints Gastrointestinal: no complaints Genitourinary: no complaints Musculoskeletal: no complaints Skin: no complaints Neurologic: no complaints Endocrine: no complaints Lymphatic: no complaints Psychological: nl mood/affect, no complaints Immunologic: no complaints Exam/Review of Systems Vital Signs Vitals Vital Signs Date Time Temp Pulse Resp B/P Pulse Ox O2 Delivery O2 Flow Rate FiO2 05/26/17 06:30 90 18 101/41 97 Mechanical Ventilator 05/26/17 05:04 30 05/26/17 04:00 97.5 Intake and Output 05/25/17 05/25/17 05/26/17 15:00 23:00 07:00 Intake Total 916.033 ml 1076.73 ml 877.864 ml Output Total 530 ml 700 ml 675 ml Balance 386.033 ml 376.73 ml 202.864 ml Exam Free Text/Dictation Constitutional: alert, non-verbal, awake, nonresponsive No oriented Psych: confusion, withdraws from pain Head: atraumatic, normocephalic Eyes: nl sclera ENMT: mucosa pink and moist, missing teeth Neck: non-tender, other (trach), supple Respiratory: diminished Cardiovascular: edema Gastrointestinal: distended (mod), other (peristomal still leaking yellow drainage to ostomy bag), soft, nontender Musculoskeletal: No muscle tone Extremities: edema Neurological: No nl mental status, No nl speech Skin: other (abdominal/peristomal/breast fold redness, moisture damage/ cellulitis improving) Results Result Diagram: 05/26/1742905/26/17 043 SHADI CALDERON NP May 26, 2017 08:42
[2017-05-26] MEDS: FOLIC ACID 1 MG TAB GTB SCH (09:00)
[2017-05-26] MEDS: FERROUS SULFATE (EC) 325 MG TAB PO SCH ×2 (09:00→21:00)
[2017-05-26] MEDS: MULTIVIT/CA CARB/B CMPLX/FA TAB GTB SCH (09:00)
[2017-05-26] MEDS: CARBIDOPA/LEVODOPA (25/100) TAB GTB SCH ×3 (09:00→21:00)
[2017-05-26] MEDS: CITRIC ACID/NA CITRATE 30 ML CUP PO SCH ×2 (09:00→21:00)
[2017-05-26] MEDS: MIDODRINE 5 MG TAB GTB SCH ×3 (09:00→17:00)
[2017-05-26] MEDS: MEMANTINE 5 MG TAB GTB SCH (09:00)
[2017-05-26] MEDS: PRAMIPEXOLE 0.25 MG TAB GTB SCH (09:00)
[2017-05-26] MEDS: NYSTATIN 30 GM POWDER BTL TOP SCH ×2 (09:45→21:22)
[2017-05-26] MEDS: HEPARIN 5,000 UNIT/0.5 ML VIAL SC SCH ×2 (09:45→21:19)
[2017-05-26] MEDS: COLLAGENASE 30 GM TUBE TOP SCH (09:46)
--- NOTE | 2017-05-26 10:13 | CONS ---
Date/Time of Note Date/Time of Note DATE: 05/26/17 TIME: 10:08 Assessment/Plan Assessment/Plan Chief Complaint/Hosp Course ID PROGRESS NOTE CURRENT ABX DAY => Colistin INH #10 +Cefepime #8 + Amikacin #8 + Bactrim IV #8 TOTAL ABX DAY # 17 Merrem#10 => DC 7/30 Vanco IV #10 => DC 7/30 24H INTERVAL SUMMARY * No fevers, eyes open-nontracking -- obese F chronic encephalopath -- nonverbal on the Vent, WBC normalized * GI NOTE REVIEWED: Large gastrocutaneous fistula, endoscopically it is not possible given to keep the largest diameter GJ tube in place=> PLAN is for placement of JT * Clinically status quo -- pressors, obtunded => MICRO ABD RESULTED PSAR MDRO * REPEAT ABD WOUND CX: OUND CULTURE Final Organism 1 PSEUDOMONAS AERUGINOSA QUANTITY 2+ PHYSICAL EXAMINATION: GENERAL: VSS,NAD, no fevers == Obese, eyes open HEENT: NGT->Secure / ETT secure NECK: Supple, trach-> midline CHEST: Equal chest rise bilaterally, Vented HEART: Pulse RRR ABDOMEN: Soft -> see photos large EC fistula residual healing scar, cellulitis w/(+)drainage EXTREMITIES: Warm, no edema SKIN: Warm, dry ID ASSESSMENT: 86 yo F w/PMHx Obesity,Parkinson's dementia w/chronic encephalopathy admitted with: 1. Sepsis w/shock, hypothermia, leukocytosis, lactic acidosis => multifactorial as below * 05/07/17 BCx (-) 2. Acute on chronic respiratory failure w/Trach 3. HCAP => Tracheobronchitis * CT (+)Large right pleural effusion/small left effusion * Respiratory Cx 05/14: * Organism 1 PSEUDOMONAS AERUGINOSA QUANTITY 3+ Organism 2 STENOTROPHOMONAS MALTOPHILIA QUANTITY 3+ 4. 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 5. UTI as per urinalysis on admission => urine was not sent for culture 6. Multiple chronic decub ulcers 7. RASH on admission s/p empiric Elimite x1 w/(-)skin scraping for scabies 8. Acute kidney injury 9. Diabetes. 10. Acute on chronic anemia. 11. 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 DC Colistin INH -> today is day #10 for PSAR MDRO tracheobronchitis 2. GI PLAN: Large gastrocutaneous fistula, endoscopically it is not possible given to keep the largest diameter GJ tube in place=> proceed to placement of JT 3. CONTINUE ABX => ethical dilemma: Patient remains on aggressive course of medical care despite poor quality of life, at age 86 poor prognosis * ABX for MDRO with risk of target organ damage + breeding new MDRO ? Ethical Dilemma * Watch renal fx on Bactrim IV + Aminoglycoside -> MDRO leave limited options, the only other option is to start Colistin. * Doubt ABX Rx will reverse poor prognosis; consider palliative care approach . . . Problems: Consultation Date/Type/Reason Admit Date/Time May 06, 2017 at 16:34 Initial Consult Date 05/12/17 Type of Consultation: ID Exam/Review of Systems Vital Signs Vitals Vital Signs Date Time Temp Pulse Resp B/P Pulse Ox O2 Delivery O2 Flow Rate FiO2 05/26/17 08:00 76 05/26/17 06:30 18 101/41 97 Mechanical Ventilator 05/26/17 05:04 30 05/26/17 04:00 97.5 Intake and Output 05/25/17 05/25/17 05/26/17 15:00 23:00 07:00 Intake Total 916.033 ml 1076.73 ml 877.864 ml Output Total 530 ml 700 ml 675 ml Balance 386.033 ml 376.73 ml 202.864 ml Results Result Diagram: 05/26/17 0430 05/26/17 0430 Results 24 hrs Laboratory Tests Test 05/25/17 12:30 05/25/17 17:01 05/26/17 00:30 05/26/17 04:30 Bedside Glucose 71 88 75 White Blood Count 6.9 Red Blood Count 3.59 L Hemoglobin 10.5 L Hematocrit 32.5 L Mean Corpuscular Volume 90.5 Mean Corpuscular Hemoglobin 29.2 Mean Corpuscular Hemoglobin Concent 32.3 Red Cell Distribution Width 17.0 H Platelet Count 197 Mean Platelet Volume 10.6 H Neutrophils % 69.5 Lymphocytes % 15.5 Monocytes % 5.5 Eosinophils % 8.6 H Basophils % 0.6 Nucleated Red Blood Cells % 0.0 Neutrophils # 4.8 Lymphocytes # 1.1 Monocytes # 0.4 Eosinophils # 0.6 H Basophils # 0.0 Nucleated Red Blood Cells # 0.0 Sodium Level 137 Potassium Level 3.7 Chloride Level 104 Carbon Dioxide Level 19 L Anion Gap 18 H Blood Urea Nitrogen 24 H Creatinine 1.71 H Glucose Level 158 Calcium Level 7.9 L Phosphorus Level 4.7 Magnesium Level 2.1 Test 05/26/17 05:47 05/26/17 06:06 05/26/17 09:52 Bedside Glucose 65 L 105 70 Medications Medications Current Medications Atorvastatin Calcium (Lipitor) 10 mg QHS GTB Last administered on 05/19/17 21: 00; Admin Dose 10 MG; Start 05/06/17 at 21:00 Bisacodyl (Dulcolax Supp) 10 mg Q48H [place] Last administered on 05/22/17 16:38; Admin Dose 10 MG; Start 05/06/17 at 17:00 Carbidopa/Levodopa (Sinemet (25/ 100)) 1 tab TID GTB Last administered on 14:01; Admin Dose 1 TAB; Start 05/06/17 at 21:00 Clopidogrel Bisulfate (plaVIX) 75 mg DAILY GTB Last administered on 05/17/17 10:40; Admin Dose 75 MG; Start 05/07/17 at 09:00; Status Future Hold Donepezil HCl (Aricept) 10 mg QHS GTB Last administered on 05/19/17 21:00; Admin Dose 10 MG; Start 05/06/17 at 21:00 Ferrous Sulfate (Ferrous Sulfate (Ec)) 325 mg BID PO Last administered on 09:09; Admin Dose 325 MG; Start 05/06/17 at 21:00 Folic Acid (Folic Acid) 1 mg DAILY GTB Last administered on 05/22/17 09:09; Admin Dose 1 MG; Start 05/07/17 at 09:00 Lactobacillus Acidophilus/ Rhamnosus (Culturelle) 1 cap QHS GTB Last administered on 05/19/17 21:00; Admin Dose 1 CAP; Start 05/06/17 at 21:00 Magnesium Hydroxide (Milk Of Mag) 30 ml Q24H GTB Last administered on 05/22/17 16:38; Admin Dose 30 ML; Start 05/06/17 at 17:00 Memantine (Namenda) 5 mg QAM GTB Last administered on 05/22/17 09:10; Admin Dose 5 MG; Start 05/07/17 at 09:00 Metoprolol Tartrate (Lopressor) 25 mg Q12H GTB Last administered on 05/18/17 16:47; Admin Dose 25 MG; Start 05/06/17 at 17:00; Status Future Hold Multivit/Ca Carb/ B Cmplx/FA/Prenat (Radhika-John) 1 tab DAILY GTB Last administered on 05/22/17 09:09; Admin Dose 1 TAB; Start 05/07/17 at 09:00 Pramipexole (Mirapex) 0.5 mg DAILY GTB Last administered on 05/22/17 09:09; Admin Dose 0.5 MG; Start 05/07/17 at 09:00 Sodium Biphosphate/ Sodium Phosphate (Fleet Enema Pediatric) 118 ml Q72H PRN [place] CONSTIPATION; Start 05/06/17 at 17:00 Citric Acid/ Sodium Citrate (Bicitra) 30 ml BID PO Last administered on 09:09; Admin Dose 30 ML; Start 05/06/17 at 21:00 Nystatin (Nystatin Powder) 1 applic BID TOP Last administered on 05/26/17 09:45 ; Admin Dose 1 APPLIC; Start 05/09/17 at 21:00 Collagenase (Santyl) 1 applic DAILY TOP Last administered on 05/26/17 09:46; Admin Dose 1 APPLIC; Start 05/09/17 at 15:00 Collagenase 1 applic 1 applic PRN PRN TOP WOUND CARE; Start 05/09/17 at 14:00 Norepinephrine 16 mg/Dextrose 500 ml @ 1.87 mls/hr TITRATE IV ; Start 05/10/17 at 14:00 Dopamine HCl/ Dextrose 250 ml @ 6.848 mls/ hr TITRATE IV Last administered on 05/26/17 08:35; Admin Dose 23.966 MLS/HR; Start 05/10/17 at 18:30 Miscellaneous Information 1 ea NOTE XX ; Start 05/11/17 at 08:00 Glucose (Glutose) 15 gm Q15M PRN PO DECREASED GLUCOSE; Start 05/11/17 at 08:00 Glucose (Glutose) 22.5 gm Q15M PRN PO DECREASED GLUCOSE; Start 05/11/17 at 08: 00 Dextrose (D50w Syringe) 25 ml Q15M PRN IV DECREASED GLUCOSE Last administered on 05/26/17 09:54; Admin Dose 25 ML; Start 05/11/17 at 08:00 Dextrose (D50w Syringe) 50 ml Q15M PRN IV DECREASED GLUCOSE Last administered on 05/15/17 00:11; Admin Dose 50 ML; Start 05/11/17 at 08:00 Glucagon (Glucagen) 1 mg Q15M PRN IM DECREASED GLUCOSE; Start 05/11/17 at 08:00 Glucose (Glutose) 15 gm Q15M PRN BUCCAL DECREASED GLUCOSE; Start 05/11/17 at 08 :00 Epoetin Vasyl (Epogen (Esrd)) 10,000 units MoWeFr@17 SC Last administered on 05/24 18:54; Admin Dose 10,000 UNITS; Start 05/13/17 at 17:00 IV Flush (NS 10 ml) 10 ml PRN PRN IV IV PROTOCOL; Start 05/15/17 at 17:30 Pantoprazole 40 mg 40 mg BID@06,18 IV Last administered on 05/26/17 05:51; Admin Dose 40 MG; Start 05/16/17 at 10:00 Trimethoprim/ Sulfamethoxazole/ Dextrose (Bactrim/D5W) 260 ml @ 173.333 mls/hr Q8 IVPB Last administered on 05/26/17 06:45; Admin Dose 173.333 MLS/HR; Start 05/19/17 at 21:00 Amikacin Sulfate AMIKACIN PER PHARMACY NOTE XX ; Start 05/19/17 at 18:00 Cefepime HCl 0.5 gm/Sodium Chloride 100 ml @ 100 mls/hr Q24H IVPB Last administered on 05/25/17 20:20; Admin Dose 100 MLS/HR; Start 05/19/17 at 20:00 Amikacin Sulfate/ Sodium Chloride (Amikacin/NS) 101.4 ml @ 101.4 mls/ hr Q96H IVPB Last administered on 05/23/17 23:29; Admin Dose 101.4 MLS/HR; Start at 21:00 Midodrine (Proamatine) 10 mg TID@09,,17 GTB ; Start 05/23/17 at 09:00 Heparin Sodium (Porcine) 5000 unit 5,000 unit BID SC Last administered on 09:45; Admin Dose 5,000 UNIT; Start 05/23/17 at 09:00 Dextrose/Sodium Chloride (D5-1/2ns) 1,000 ml @ 75 mls/hr [id number] IV Last administered on 05/26/17 06:29; Admin Dose 75 MLS/HR; Start 05/23/17 at 11:30 Insulin Aspart (Novolog Insulin Pen) NOVOLOG *MILD* ALGORI... Q4 SC ; Start 05/26 at 09:00 SYLVIA PADRON NP May 26, 2017 10:13
--- NOTE | 2017-05-26 11:45 | CONS ---
Date/Time of Note Date/Time of Note DATE: 05/26/17 TIME: 11:42 Consult Date/Type/Reason Admit Date/Time May 06, 2017 at 16:34 Initial Consult Date 05/22/17 Type of Consultation: CARDIOLOGY Subjective CARDIOLOGY FOLLOW UP NOTE: Discussed with staff and rhythm was reviewed pt remains in NSR. NO AFIB seen NONVERBAL. pt is still ICU on dopamine drip still unable to wean off so far. OBJECTIVE: General: no acute distress. s/p trach on vent. HEENT: NC/AT. NECK: NO JVD. no stridor. S/P trach on vent CV: RRR. systolic murmur; no gallop or rubs. PULM: no wheezing anteriorly GI: SOFT, NT, ND, no rebound or guarding s/p dressing at the site of previous G tube Extremity: + B/L LE edema. no clubbing. neuro: opens her eyes to painful stimuli. does not follow commands Psych: calm rectal: deferred Objective Vital Signs Date Time Temp Pulse Resp B/P Pulse Ox O2 Delivery O2 Flow Rate FiO2 05/26/17 11:00 89 18 101/63 98 Mechanical Ventilator 05/26/17 08:00 97.4 05/26/17 05:04 30 Intake and Output 05/25/17 05/25/17 05/26/17 15:00 23:00 07:00 Intake Total 916.033 ml 1076.73 ml 976.830 ml Output Total 530 ml 700 ml 675 ml Balance 386.033 ml 376.73 ml 301.830 ml Results/Medications Result Diagram: 05/26/17 0430 05/26/17 0430 Results 24 hrs Laboratory Tests Test 05/25/17 12:30 05/25/17 17:01 05/26/17 00:30 05/26/17 04:30 Bedside Glucose 71 88 75 White Blood Count 6.9 Red Blood Count 3.59 L Hemoglobin 10.5 L Hematocrit 32.5 L Mean Corpuscular Volume 90.5 Mean Corpuscular Hemoglobin 29.2 Mean Corpuscular Hemoglobin Concent 32.3 Red Cell Distribution Width 17.0 H Platelet Count 197 Mean Platelet Volume 10.6 H Neutrophils % 69.5 Lymphocytes % 15.5 Monocytes % 5.5 Eosinophils % 8.6 H Basophils % 0.6 Nucleated Red Blood Cells % 0.0 Neutrophils # 4.8 Lymphocytes # 1.1 Monocytes # 0.4 Eosinophils # 0.6 H Basophils # 0.0 Nucleated Red Blood Cells # 0.0 Sodium Level 137 Potassium Level 3.7 Chloride Level 104 Carbon Dioxide Level 19 L Anion Gap 18 H Blood Urea Nitrogen 24 H Creatinine 1.71 H Glucose Level 158 Calcium Level 7.9 L Phosphorus Level 4.7 Magnesium Level 2.1 Test 05/26/17 05:47 05/26/17 06:06 05/26/17 09:52 05/26/17 10:17 Bedside Glucose 65 L 105 70 103 Test 05/26/17 11:13 Bedside Glucose 82 Medications Current Medications Atorvastatin Calcium (Lipitor) 10 mg QHS GTB Last administered on 05/19/17 21: 00; Admin Dose 10 MG; Start 05/06/17 at 21:00 Bisacodyl (Dulcolax Supp) 10 mg Q48H [place] Last administered on 05/22/17 16:38; Admin Dose 10 MG; Start 05/06/17 at 17:00 Carbidopa/Levodopa (Sinemet (25/ 100)) 1 tab TID GTB Last administered on 14:01; Admin Dose 1 TAB; Start 05/06/17 at 21:00 Clopidogrel Bisulfate (plaVIX) 75 mg DAILY GTB Last administered on 05/17/17 10:40; Admin Dose 75 MG; Start 05/07/17 at 09:00; Status Future Hold Donepezil HCl (Aricept) 10 mg QHS GTB Last administered on 05/19/17 21:00; Admin Dose 10 MG; Start 05/06/17 at 21:00 Ferrous Sulfate (Ferrous Sulfate (Ec)) 325 mg BID PO Last administered on 09:09; Admin Dose 325 MG; Start 05/06/17 at 21:00 Folic Acid (Folic Acid) 1 mg DAILY GTB Last administered on 05/22/17 09:09; Admin Dose 1 MG; Start 05/07/17 at 09:00 Lactobacillus Acidophilus/ Rhamnosus (Culturelle) 1 cap QHS GTB Last administered on 05/19/17 21:00; Admin Dose 1 CAP; Start 05/06/17 at 21:00 Magnesium Hydroxide (Milk Of Mag) 30 ml Q24H GTB Last administered on 05/22/17 16:38; Admin Dose 30 ML; Start 05/06/17 at 17:00 Memantine (Namenda) 5 mg QAM GTB Last administered on 05/22/17 09:10; Admin Dose 5 MG; Start 05/07/17 at 09:00 Metoprolol Tartrate (Lopressor) 25 mg Q12H GTB Last administered on 05/18/17 16:47; Admin Dose 25 MG; Start 05/06/17 at 17:00; Status Future Hold Multivit/Ca Carb/ B Cmplx/FA/Prenat (Radhika-John) 1 tab DAILY GTB Last administered on 05/22/17 09:09; Admin Dose 1 TAB; Start 05/07/17 at 09:00 Pramipexole (Mirapex) 0.5 mg DAILY GTB Last administered on 05/22/17 09:09; Admin Dose 0.5 MG; Start 05/07/17 at 09:00 Sodium Biphosphate/ Sodium Phosphate (Fleet Enema Pediatric) 118 ml Q72H PRN [place] CONSTIPATION; Start 05/06/17 at 17:00 Citric Acid/ Sodium Citrate (Bicitra) 30 ml BID PO Last administered on 09:09; Admin Dose 30 ML; Start 05/06/17 at 21:00 Nystatin (Nystatin Powder) 1 applic BID TOP Last administered on 05/26/17 09:45 ; Admin Dose 1 APPLIC; Start 05/09/17 at 21:00 Collagenase (Santyl) 1 applic DAILY TOP Last administered on 05/26/17 09:46; Admin Dose 1 APPLIC; Start 05/09/17 at 15:00 Collagenase 1 applic 1 applic PRN PRN TOP WOUND CARE; Start 05/09/17 at 14:00 Norepinephrine 16 mg/Dextrose 500 ml @ 1.87 mls/hr TITRATE IV ; Start 05/10/17 at 14:00 Dopamine HCl/ Dextrose 250 ml @ 6.848 mls/ hr TITRATE IV Last administered on 05/26/17 08:35; Admin Dose 23.966 MLS/HR; Start 05/10/17 at 18:30 Miscellaneous Information 1 ea NOTE XX ; Start 05/11/17 at 08:00 Glucose (Glutose) 15 gm Q15M PRN PO DECREASED GLUCOSE; Start 05/11/17 at 08:00 Glucose (Glutose) 22.5 gm Q15M PRN PO DECREASED GLUCOSE; Start 05/11/17 at 08: 00 Dextrose (D50w Syringe) 25 ml Q15M PRN IV DECREASED GLUCOSE Last administered on 05/26/17 09:54; Admin Dose 25 ML; Start 05/11/17 at 08:00 Dextrose (D50w Syringe) 50 ml Q15M PRN IV DECREASED GLUCOSE Last administered on 05/15/17 00:11; Admin Dose 50 ML; Start 05/11/17 at 08:00 Glucagon (Glucagen) 1 mg Q15M PRN IM DECREASED GLUCOSE; Start 05/11/17 at 08:00 Glucose (Glutose) 15 gm Q15M PRN BUCCAL DECREASED GLUCOSE; Start 05/11/17 at 08 :00 Epoetin Vasyl (Epogen (Esrd)) 10,000 units MoWeFr@17 SC Last administered on 05/24 18:54; Admin Dose 10,000 UNITS; Start 05/13/17 at 17:00 IV Flush (NS 10 ml) 10 ml PRN PRN IV IV PROTOCOL; Start 05/15/17 at 17:30 Pantoprazole 40 mg 40 mg BID@06,18 IV Last administered on 05/26/17 05:51; Admin Dose 40 MG; Start 05/16/17 at 10:00 Trimethoprim/ Sulfamethoxazole/ Dextrose (Bactrim/D5W) 260 ml @ 173.333 mls/hr Q8 IVPB Last administered on 05/26/17 06:45; Admin Dose 173.333 MLS/HR; Start 05/19/17 at 21:00 Amikacin Sulfate AMIKACIN PER PHARMACY NOTE XX ; Start 05/19/17 at 18:00 Cefepime HCl 0.5 gm/Sodium Chloride 100 ml @ 100 mls/hr Q24H IVPB Last administered on 05/25/17 20:20; Admin Dose 100 MLS/HR; Start 05/19/17 at 20:00 Amikacin Sulfate/ Sodium Chloride (Amikacin/NS) 101.4 ml @ 101.4 mls/ hr Q96H IVPB Last administered on 05/23/17 23:29; Admin Dose 101.4 MLS/HR; Start at 21:00 Midodrine (Proamatine) 10 mg TID@,, GTB ; Start 05/23/17 at 09:00 Heparin Sodium (Porcine) 5000 unit 5,000 unit BID SC Last administered on 09:45; Admin Dose 5,000 UNIT; Start 05/23/17 at 09:00 Dextrose/Sodium Chloride (D5-1/2ns) 1,000 ml @ 75 mls/hr [id number] IV Last administered on 05/26/17 06:29; Admin Dose 75 MLS/HR; Start 05/23/17 at 11:30 Insulin Aspart (Novolog Insulin Pen) NOVOLOG *MILD* ALGORI... Q4 SC ; Start 05/26 at 09:00 Assessment/Plan Chief Complaint/Hosp Course 1. hypoxemic resp failure: s/p trach 2. Pafib; currently in NSR 3. hx HTN: now in shock and hypotensive. : STILL requires DOPAMINE DRIP 4. encephalopathy 5. renal failure: f/u with nephrology 6. dysphagia 7. G tube malfunction/ infection 8. GI bleed 9. severe anemia will cont dopamine drip and titrate off once BP remains stable. cont resp care nutritional support. CONT ICU care as long as pt is on pressors correct lytes prn off of PLAVIX DUE TO ANEMIA/ BLEEDING still awaiting surgery for PEG replacement THANK YOU. Problems: MILAGROS MUNOZ MD May 26, 2017 11:45
--- NOTE | 2017-05-26 12:40 | CONS ---
Date/Time of Note Date/Time of Note DATE: 05/26/17 TIME: 12:39 Assessment/Plan Assessment/Plan Chief Complaint/Hosp Course 1. Septic shock. Etiology secondary to pneumonia, cellulitis and underlying wounds. The patient is on pressor support, difficulty being weaned off. Will continue current treatment plan. Continue broad-spectrum antibiotics. Continue IV fluids. 2. Anemia. Monitor H and H levels. Patient is Epogen. The patient is status post blood transfusion. 3. Dysphagia. The patient is pending possible G-tube placement today by GI. Will continue to monitor. 4. Ventilator dependent respiratory failure. Vent settings have been reviewed. ABGs reviewed. Continue to monitor. Follow up with pulmonary. 5. Nonoliguric acute kidney injury on top of chronic kidney disease stage 4, etiology secondary to hemodynamics. Continue current treatment. Supportive care. Renal dose all medications. Avoid nephrotoxins. 6. Encephalopathy and advanced dementia. Etiology is toxic metabolic. Continue to monitor. 7. Mineral bone disorder. Monitor calcium and phosphorus levels. 8. Coronary artery disease. Continue current treatment plan. 9. Diabetes. Continue current insulin regimen. 10. Decubitus wound. Continue wound care. 11. Gastrointestinal and deep venous thrombosis prophylaxis. Continue PPI and heparin. Problems: Consultation Date/Type/Reason Admit Date/Time May 06, 2017 at 16:34 Initial Consult Date 05/22/17 Type of Consultation: CARDIOLOGY 24 HR Interval Summary Free Text/Dictation The patient remains critically on pressor support. No other events noted. vent settings and cxr were reviewed d/w Dr Rosas no new rash, hematuria, melena, tachypnea, fever OBJECTIVE DATA: HEENT: Head is normocephalic. Neck shows a trach. HEART: Regular rate. LUNGS: Diminished breath sounds at the base. ABDOMEN: Soft, nontender to palpation. Positive PEG. EXTREMITIES: Negative for clubbing, cyanosis. Positive edema. Positive contractures. DERMATOLOGIC: No rashes, no positive wounds. NEUROLOGIC: No change in exam. MEDICATIONS: Reviewed. time of longterm: 39 min Subjective hx not possible: pt non-verbal Exam/Review of Systems Vital Signs Vitals Vital Signs Date Time Temp Pulse Resp B/P Pulse Ox O2 Delivery O2 Flow Rate FiO2 05/26/17 11:20 88 15 100 30 05/26/17 11:00 101/63 Mechanical Ventilator 05/26/17 08:00 97.4 Intake and Output 05/25/17 05/25/17 05/26/17 15:00 23:00 07:00 Intake Total 916.033 ml 1076.73 ml 976.830 ml Output Total 530 ml 700 ml 675 ml Balance 386.033 ml 376.73 ml 301.830 ml Results Result Diagram: 05/26/17 0430 05/26/17 0430 Results 24 hrs Laboratory Tests Test 05/25/17 17:01 05/26/17 00:30 05/26/17 04:30 05/26/17 05:47 Bedside Glucose 88 75 65 L White Blood Count 6.9 Red Blood Count 3.59 L Hemoglobin 10.5 L Hematocrit 32.5 L Mean Corpuscular Volume 90.5 Mean Corpuscular Hemoglobin 29.2 Mean Corpuscular Hemoglobin Concent 32.3 Red Cell Distribution Width 17.0 H Platelet Count 197 Mean Platelet Volume 10.6 H Neutrophils % 69.5 Lymphocytes % 15.5 Monocytes % 5.5 Eosinophils % 8.6 H Basophils % 0.6 Nucleated Red Blood Cells % 0.0 Neutrophils # 4.8 Lymphocytes # 1.1 Monocytes # 0.4 Eosinophils # 0.6 H Basophils # 0.0 Nucleated Red Blood Cells # 0.0 Sodium Level 137 Potassium Level 3.7 Chloride Level 104 Carbon Dioxide Level 19 L Anion Gap 18 H Blood Urea Nitrogen 24 H Creatinine 1.71 H Glucose Level 158 Calcium Level 7.9 L Phosphorus Level 4.7 Magnesium Level 2.1 Test 05/26/17 06:06 05/26/17 09:52 05/26/17 10:17 05/26/17 11:13 Bedside Glucose 105 70 103 82 Medications Medications Current Medications Atorvastatin Calcium (Lipitor) 10 mg QHS GTB Last administered on 05/19/17 21: 00; Admin Dose 10 MG; Start 05/06/17 at 21:00 Bisacodyl (Dulcolax Supp) 10 mg Q48H [place] Last administered on 05/22/17 16:38; Admin Dose 10 MG; Start 05/06/17 at 17:00 Carbidopa/Levodopa (Sinemet (25/ 100)) 1 tab TID GTB Last administered on 14:01; Admin Dose 1 TAB; Start 05/06/17 at 21:00 Clopidogrel Bisulfate (plaVIX) 75 mg DAILY GTB Last administered on 05/17/17 10:40; Admin Dose 75 MG; Start 05/07/17 at 09:00; Status Future Hold Donepezil HCl (Aricept) 10 mg QHS GTB Last administered on 05/19/17 21:00; Admin Dose 10 MG; Start 05/06/17 at 21:00 Ferrous Sulfate (Ferrous Sulfate (Ec)) 325 mg BID PO Last administered on 09:09; Admin Dose 325 MG; Start 05/06/17 at 21:00 Folic Acid (Folic Acid) 1 mg DAILY GTB Last administered on 05/22/17 09:09; Admin Dose 1 MG; Start 05/07/17 at 09:00 Lactobacillus Acidophilus/ Rhamnosus (Culturelle) 1 cap QHS GTB Last administered on 05/19/17 21:00; Admin Dose 1 CAP; Start 05/06/17 at 21:00 Magnesium Hydroxide (Milk Of Mag) 30 ml Q24H GTB Last administered on 05/22/17 16:38; Admin Dose 30 ML; Start 05/06/17 at 17:00 Memantine (Namenda) 5 mg QAM GTB Last administered on 05/22/17 09:10; Admin Dose 5 MG; Start 05/07/17 at 09:00 Metoprolol Tartrate (Lopressor) 25 mg Q12H GTB Last administered on 05/18/17 16:47; Admin Dose 25 MG; Start 05/06/17 at 17:00; Status Future Hold Multivit/Ca Carb/ B Cmplx/FA/Prenat (Radhika-John) 1 tab DAILY GTB Last administered on 05/22/17 09:09; Admin Dose 1 TAB; Start 05/07/17 at 09:00 Pramipexole (Mirapex) 0.5 mg DAILY GTB Last administered on 05/22/17 09:09; Admin Dose 0.5 MG; Start 05/07/17 at 09:00 Sodium Biphosphate/ Sodium Phosphate (Fleet Enema Pediatric) 118 ml Q72H PRN [place] CONSTIPATION; Start 05/06/17 at 17:00 Citric Acid/ Sodium Citrate (Bicitra) 30 ml BID PO Last administered on 09:09; Admin Dose 30 ML; Start 05/06/17 at 21:00 Nystatin (Nystatin Powder) 1 applic BID TOP Last administered on 05/26/17 09:45 ; Admin Dose 1 APPLIC; Start 05/09/17 at 21:00 Collagenase (Santyl) 1 applic DAILY TOP Last administered on 05/26/17 09:46; Admin Dose 1 APPLIC; Start 05/09/17 at 15:00 Collagenase 1 applic 1 applic PRN PRN TOP WOUND CARE; Start 05/09/17 at 14:00 Norepinephrine 16 mg/Dextrose 500 ml @ 1.87 mls/hr TITRATE IV ; Start 05/10/17 at 14:00 Dopamine HCl/ Dextrose 250 ml @ 6.848 mls/ hr TITRATE IV Last administered on 05/26/17 08:35; Admin Dose 23.966 MLS/HR; Start 05/10/17 at 18:30 Miscellaneous Information 1 ea NOTE XX ; Start 05/11/17 at 08:00 Glucose (Glutose) 15 gm Q15M PRN PO DECREASED GLUCOSE; Start 05/11/17 at 08:00 Glucose (Glutose) 22.5 gm Q15M PRN PO DECREASED GLUCOSE; Start 05/11/17 at 08: 00 Dextrose (D50w Syringe) 25 ml Q15M PRN IV DECREASED GLUCOSE Last administered on 05/26/17 09:54; Admin Dose 25 ML; Start 05/11/17 at 08:00 Dextrose (D50w Syringe) 50 ml Q15M PRN IV DECREASED GLUCOSE Last administered on 05/15/17 00:11; Admin Dose 50 ML; Start 05/11/17 at 08:00 Glucagon (Glucagen) 1 mg Q15M PRN IM DECREASED GLUCOSE; Start 05/11/17 at 08:00 Glucose (Glutose) 15 gm Q15M PRN BUCCAL DECREASED GLUCOSE; Start 05/11/17 at 08 :00 Epoetin Vasyl (Epogen (Esrd)) 10,000 units MoWeFr@17 SC Last administered on 05/24 18:54; Admin Dose 10,000 UNITS; Start 05/13/17 at 17:00 IV Flush (NS 10 ml) 10 ml PRN PRN IV IV PROTOCOL; Start 05/15/17 at 17:30 Pantoprazole 40 mg 40 mg BID@06,18 IV Last administered on 05/26/17 05:51; Admin Dose 40 MG; Start 05/16/17 at 10:00 Trimethoprim/ Sulfamethoxazole/ Dextrose (Bactrim/D5W) 260 ml @ 173.333 mls/hr Q8 IVPB Last administered on 05/26/17 06:45; Admin Dose 173.333 MLS/HR; Start 05/19/17 at 21:00 Amikacin Sulfate AMIKACIN PER PHARMACY NOTE XX ; Start 05/19/17 at 18:00 Cefepime HCl 0.5 gm/Sodium Chloride 100 ml @ 100 mls/hr Q24H IVPB Last administered on 05/25/17 20:20; Admin Dose 100 MLS/HR; Start 05/19/17 at 20:00 Amikacin Sulfate/ Sodium Chloride (Amikacin/NS) 101.4 ml @ 101.4 mls/ hr Q96H IVPB Last administered on 05/23/17 23:29; Admin Dose 101.4 MLS/HR; Start at 21:00 Midodrine (Proamatine) 10 mg TID@,,17 GTB ; Start 05/23/17 at 09:00 Heparin Sodium (Porcine) 5000 unit 5,000 unit BID SC Last administered on 09:45; Admin Dose 5,000 UNIT; Start 05/23/17 at 09:00 Dextrose/Sodium Chloride (D5-1/2ns) 1,000 ml @ 75 mls/hr [id number] IV Last administered on 05/26/17 06:29; Admin Dose 75 MLS/HR; Start 05/23/17 at 11:30 Insulin Aspart (Novolog Insulin Pen) NOVOLOG *MILD* ALGORI... Q4 SC ; Start 05/26 at 09:00 JOSE ALBERTO BHAT MD May 26, 2017 12:40
--- NOTE | 2017-05-26 14:41 | CONS ---
Date/Time of Note Date/Time of Note DATE: 05/26/17 TIME: 14:40 Consult Date/Type/Reason Admit Date/Time May 06, 2017 at 16:34 Initial Consult Date 05/22/17 Type of Consultation: Pulm/CCM Subjective Remains on vent and on pressors. Objective Vital Signs Date Time Temp Pulse Resp B/P Pulse Ox O2 Delivery O2 Flow Rate FiO2 05/26/17 13:45 89 17 98/38 99 05/26/17 13:00 Mechanical Ventilator 05/26/17 12:00 97.0 05/26/17 11:20 30 Intake and Output 05/25/17 05/25/17 05/26/17 15:00 23:00 07:00 Intake Total 916.033 ml 1076.73 ml 976.830 ml Output Total 530 ml 700 ml 675 ml Balance 386.033 ml 376.73 ml 301.830 ml Exam HEENT: Neck supple; no JVD; no LAD; + trach site clean CVS: RRR, S1 and S2 CHEST: Clear ABD: Soft, NT, + BS EXT: No c/c; edema: + decubs Results/Medications Result Diagram: 05/26/17 0430 05/26/17 0430 Results 24 hrs Laboratory Tests Test 05/25/17 17:01 05/26/17 00:30 05/26/17 04:30 05/26/17 05:47 Bedside Glucose 88 75 65 L White Blood Count 6.9 Red Blood Count 3.59 L Hemoglobin 10.5 L Hematocrit 32.5 L Mean Corpuscular Volume 90.5 Mean Corpuscular Hemoglobin 29.2 Mean Corpuscular Hemoglobin Concent 32.3 Red Cell Distribution Width 17.0 H Platelet Count 197 Mean Platelet Volume 10.6 H Neutrophils % 69.5 Lymphocytes % 15.5 Monocytes % 5.5 Eosinophils % 8.6 H Basophils % 0.6 Nucleated Red Blood Cells % 0.0 Neutrophils # 4.8 Lymphocytes # 1.1 Monocytes # 0.4 Eosinophils # 0.6 H Basophils # 0.0 Nucleated Red Blood Cells # 0.0 Sodium Level 137 Potassium Level 3.7 Chloride Level 104 Carbon Dioxide Level 19 L Anion Gap 18 H Blood Urea Nitrogen 24 H Creatinine 1.71 H Glucose Level 158 Calcium Level 7.9 L Phosphorus Level 4.7 Magnesium Level 2.1 Test 05/26/17 06:06 05/26/17 09:52 05/26/17 10:17 05/26/17 11:13 Bedside Glucose 105 70 103 82 Test 05/26/17 13:11 05/26/17 13:59 Bedside Glucose 67 L 99 Medications Current Medications Atorvastatin Calcium (Lipitor) 10 mg QHS GTB Last administered on 05/19/17 21: 00; Admin Dose 10 MG; Start 05/06/17 at 21:00 Bisacodyl (Dulcolax Supp) 10 mg Q48H [place] Last administered on 05/22/17 16:38; Admin Dose 10 MG; Start 05/06/17 at 17:00 Carbidopa/Levodopa (Sinemet (25/ )) 1 tab TID GTB Last administered on 14:01; Admin Dose 1 TAB; Start 05/06/17 at 21:00 Clopidogrel Bisulfate (plaVIX) 75 mg DAILY GTB Last administered on 05/17/17 10:40; Admin Dose 75 MG; Start 05/07/17 at 09:00; Status Future Hold Donepezil HCl (Aricept) 10 mg QHS GTB Last administered on 05/19/17 21:00; Admin Dose 10 MG; Start 05/06/17 at 21:00 Ferrous Sulfate (Ferrous Sulfate (Ec)) 325 mg BID PO Last administered on 09:09; Admin Dose 325 MG; Start 05/06/17 at 21:00 Folic Acid (Folic Acid) 1 mg DAILY GTB Last administered on 05/22/17 09:09; Admin Dose 1 MG; Start 05/07/17 at 09:00 Lactobacillus Acidophilus/ Rhamnosus (Culturelle) 1 cap QHS GTB Last administered on 05/19/17 21:00; Admin Dose 1 CAP; Start 05/06/17 at 21:00 Magnesium Hydroxide (Milk Of Mag) 30 ml Q24H GTB Last administered on 05/22/17 16:38; Admin Dose 30 ML; Start 05/06/17 at 17:00 Memantine (Namenda) 5 mg QAM GTB Last administered on 05/22/17 09:10; Admin Dose 5 MG; Start 05/07/17 at 09:00 Metoprolol Tartrate (Lopressor) 25 mg Q12H GTB Last administered on 05/18/17 16:47; Admin Dose 25 MG; Start 05/06/17 at 17:00; Status Future Hold Multivit/Ca Carb/ B Cmplx/FA/Prenat (Radhika-John) 1 tab DAILY GTB Last administered on 05/22/17 09:09; Admin Dose 1 TAB; Start 05/07/17 at 09:00 Pramipexole (Mirapex) 0.5 mg DAILY GTB Last administered on 05/22/17 09:09; Admin Dose 0.5 MG; Start 05/07/17 at 09:00 Sodium Biphosphate/ Sodium Phosphate (Fleet Enema Pediatric) 118 ml Q72H PRN [place] CONSTIPATION; Start 05/06/17 at 17:00 Citric Acid/ Sodium Citrate (Bicitra) 30 ml BID PO Last administered on 09:09; Admin Dose 30 ML; Start 05/06/17 at 21:00 Nystatin (Nystatin Powder) 1 applic BID TOP Last administered on 05/26/17 09:45 ; Admin Dose 1 APPLIC; Start 05/09/17 at 21:00 Collagenase (Santyl) 1 applic DAILY TOP Last administered on 05/26/17 09:46; Admin Dose 1 APPLIC; Start 05/09/17 at 15:00 Collagenase 1 applic 1 applic PRN PRN TOP WOUND CARE; Start 05/09/17 at 14:00 Norepinephrine 16 mg/Dextrose 500 ml @ 1.87 mls/hr TITRATE IV ; Start 05/10/17 at 14:00 Dopamine HCl/ Dextrose 250 ml @ 6.848 mls/ hr TITRATE IV Last administered on 05/26/17 08:35; Admin Dose 23.966 MLS/HR; Start 05/10/17 at 18:30 Miscellaneous Information 1 ea NOTE XX ; Start 05/11/17 at 08:00 Glucose (Glutose) 15 gm Q15M PRN PO DECREASED GLUCOSE; Start 05/11/17 at 08:00 Glucose (Glutose) 22.5 gm Q15M PRN PO DECREASED GLUCOSE; Start 05/11/17 at 08: 00 Dextrose (D50w Syringe) 25 ml Q15M PRN IV DECREASED GLUCOSE Last administered on 05/26/17 13:20; Admin Dose 25 ML; Start 05/11/17 at 08:00 Dextrose (D50w Syringe) 50 ml Q15M PRN IV DECREASED GLUCOSE Last administered on 05/15/17 00:11; Admin Dose 50 ML; Start 05/11/17 at 08:00 Glucagon (Glucagen) 1 mg Q15M PRN IM DECREASED GLUCOSE; Start 05/11/17 at 08:00 Glucose (Glutose) 15 gm Q15M PRN BUCCAL DECREASED GLUCOSE; Start 05/11/17 at 08 :00 Epoetin Vasyl (Epogen (Esrd)) 10,000 units MoWeFr@17 [place] Last administered on 05/24 18:54; Admin Dose 10,000 UNITS; Start 05/13/17 at 17:00 IV Flush (NS 10 ml) 10 ml PRN PRN IV IV PROTOCOL; Start 05/15/17 at 17:30 Pantoprazole 40 mg 40 mg BID@06,18 IV Last administered on 05/26/17 05:51; Admin Dose 40 MG; Start 05/16/17 at 10:00 Trimethoprim/ Sulfamethoxazole/ Dextrose (Bactrim/D5W) 260 ml @ 173.333 mls/hr Q8 IVPB Last administered on 05/26/17 13:46; Admin Dose 173.333 MLS/HR; Start 05/19/17 at 21:00 Amikacin Sulfate AMIKACIN PER PHARMACY NOTE XX ; Start 05/19/17 at 18:00 Cefepime HCl 0.5 gm/Sodium Chloride 100 ml @ 100 mls/hr Q24H IVPB Last administered on 05/25/17 20:20; Admin Dose 100 MLS/HR; Start 05/19/17 at 20:00 Amikacin Sulfate/ Sodium Chloride (Amikacin/NS) 101.4 ml @ 101.4 mls/ hr Q96H IVPB Last administered on 05/23/17 23:29; Admin Dose 101.4 MLS/HR; Start at 21:00 Midodrine (Proamatine) 10 mg TID@,,17 GTB ; Start 05/23/17 at 09:00 Heparin Sodium (Porcine) 5000 unit 5,000 unit BID [place] Last administered on 09:45; Admin Dose 5,000 UNIT; Start 05/23/17 at 09:00 Dextrose/Sodium Chloride (D5-1/2ns) 1,000 ml @ 75 mls/hr [id number] IV Last administered on 05/26/17t 06:29; Admin Dose 75 MLS/HR; Start 05/23/17 at 11:30 Insulin Aspart (Novolog Insulin Pen) NOVOLOG *MILD* ALGORI... Q4 [place] ; Start 05/26 at 09:00 Miscellaneous Information (*Rx Drug Level Order Reminder*) AMIKACIN TROUGH @ 2, 200 ON... ONCE ONCE XX ; Start 05/26/17 at 22:00; Stop 05/26/17 at 22:01 Assessment/Plan Additional Assessment/Plan IMP: 1. Septic shock 2. VDRF 3. ? HCAP 4. Cellulitis 5. Urosepsis 6. Encephalopathy 7. STARLA RECS: 1. Pressors to MAP > 65 mmHg 2. Vent support 3. Palliative Care 4. TF's/Free H20 5. Am CXR 6. Add PEEP 5 cm H2O 35 min cc time PINKY GHOSH MD May 26, 2017 14:41
[2017-05-26] MEDS: DEXTROSE IV SCH ×2 (15:48)
[2017-05-26] MEDS: SODIUM CHLORIDE IV SCH ×2 (15:48)
[2017-05-26] MEDS: MAGNESIUM HYDROXIDE 30ML CUP GTB SCH (17:00)
[2017-05-26] MEDS: BISACODYL 10 MG SUPP PR SCH (17:00)
[2017-05-26] MEDS: CEFEPIME HCL 0.5 GM in SOD CHLORIDE 0.9% 100 ML IVPB SCH (20:12)
[2017-05-26] MEDS: DONEPEZIL 10 MG TAB GTB SCH (20:59)
[2017-05-26] MEDS: LACTOBACILLUS RHAMNOSUS CAP GTB SCH (21:00)
[2017-05-26] MEDS: ATORVASTATIN 10 MG TAB GTB SCH (21:00)
[2017-05-27] VITALS (106 sets, daily range): BP systolic 80–121; BP diastolic 30–84; PULSE 76–91; RESP 12–24
[2017-05-27] MEDS: INSULIN ASPART [NOVOLOG] 3 ML PEN SC SCH ×6 (00:54→22:10)
[2017-05-27] MEDS: DEXTROSE IV SCH ×6 (03:00→07:28)
[2017-05-27] MEDS: SODIUM CHLORIDE IV SCH ×6 (03:00→07:28)
[2017-05-27] MEDS: DOPamine-D5W 1.6 MG/ML 250 ML IV SCH ×2 (03:58→17:02)
[2017-05-27] MEDS: TRIMETHOPRIM/SULFAMETHOXAZOLE 10 ML in DEXTROSE 5% 250 ML IVPB SCH ×3 (06:07→22:00)
[2017-05-27] MEDS: PANTOPRAZOLE 40 MG INJ IV SCH ×2 (06:08→18:28)
--- NOTE | 2017-05-27 06:20 | PN ---
Date/Time of Note Date/Time of Note DATE: 05/27/17 TIME: 06:18 Assessment/Plan Lines/Catheters IV Catheter Type (from Nrsg): PICC Line Collazo in Place (from Nrsg): Yes Assessment/Plan Chief Complaint/Hosp Course 1. G-tube dislodgement: replaced with gjtube by GI, continued yellow drainage peristomal; gj tube replacement attempt-unable due to too large of an opening; still unable to be weaned from pressors -hospice/palliative -consider nj tube for meds/nutrition in the interim -possible surgical placement of jtube when medically stable 2. Septic shock: multifactorial: 2/2: pneumonia + cellulitis + wounds; persistent, continued on pressors -abx -supportive 3. Respiratory failure with trach: PNA with pulm edema; comfortable on vent -pulmonary toilet -abx -supportive 4.STARLA with CKD; +urine output -judicious fluids -renally dose meds -per nephrology 5. Normocytic anemia: previous coffee ground drainage peristoma;no acute bleed noted -monitor and transfuse as needed -continue Epogen 6. CHF -medical management 7. Diabetes -medical management 8. Acute encephalopathy with history of advanced dementia; unchanged neurologically -supportive 9. Decubitus wound. -continue wound care. 10. Peristomal cellulitis 2/2 #1; +pseudomonas: improving -local care -abx per sensitivity 11. Pancytopenia: improving 12. Hypotension: on pressors -consider albumin Patient seen and examined in collaboration with Dr. Meliton Blackburn. Thank you. Problems: Subjective 24 Hr Interval Summary Episode of hypoglycemia yesterday. Continues on pressors. Comfortable on vent. Nonverbal indicators of pain absent. Continues to have yellow gastric output to ostomy bag. No fevers, chills, vomiting, diarrhea, sz. Exam/Review of Systems Vital Signs Vitals Vital Signs Date Time Temp Pulse Resp B/P Pulse Ox O2 Delivery O2 Flow Rate FiO2 05/27/17 07:15 87 16 98/47 05/27/17 07:00 100 Mechanical Ventilator 05/27/17 04:55 30 05/27/17 04:00 98.4 Intake and Output 05/26/17 05/26/17 05/27/17 15:00 23:00 07:00 Intake Total 1141.728 ml 1200.198 ml 782.64 ml Output Total 745 ml 600 ml 385 ml Balance 396.728 ml 600.198 ml 397.64 ml Exam Free Text/Dictation Constitutional: alert, non-verbal, awake, nonresponsive No oriented Psych: confusion, withdraws from pain Head: atraumatic, normocephalic Eyes: nl sclera ENMT: mucosa pink and moist, missing teeth Neck: non-tender, other (trach), supple Respiratory: diminished Cardiovascular: edema Gastrointestinal: distended (mod), other (peristomal still leaking yellow drainage to ostomy bag), soft, nontender Musculoskeletal: No muscle tone Extremities: edema Neurological: No nl mental status, No nl speech Skin: other (abdominal/peristomal/breast fold redness, moisture damage/ cellulitis) Results Result Diagram: 05/26/1742905/26/17429 SHADI CALDERON NP May 27, 2017 06:20
[2017-05-27 07:46] LABS: AADO2 Arterial 89.7 mmHg (7.0-24.0); Allen Test ACCEPTAB; Arterial Base Excess -5.3 mmol/L (-3.0-3); Arterial COHb 0.5 % (0.0-3.0); Arterial Fraction of Oxyhgb 94.9 % (93.0-99.0); Arterial MetHb 0.6 % (0.0-1.5); Arterial Total Hemglobin 11.3 g/dl (12.0-18.0); MODE VENT - AC
[2017-05-27] MEDS ORDERED: TPN 1,000 ML IV SCH (08:00)
--- NOTE | 2017-05-27 08:05 | RADRPT ---
AMENDMENT: 05/27/2017 8:26:53 AM Sourav Ramirez MD Correction: The right arm PICC line remains in satisfactory position. PROCEDURE: XR Chest. CLINICAL INDICATION: Shortness of breath. TECHNIQUE: Single frontal view. COMPARISON: 05/15/2017. FINDINGS: The right arm PICC line has been removed. The tracheostomy tube remains in satisfactory position. Mild pulmonary edema is unchanged. The heart is mildly enlarged Small bilateral pleural effusions are unchanged. There is no pneumothorax. IMPRESSION: 1. Right arm PICC line removed. 2. No other change from 05/15/2017. RPTAT: QQ .Sourav Ramirez MD, MD Date Time Electronically viewed and signed by .Sourav Ramirez MD, MD on 05/27/2017 08:26 .R/
[2017-05-27] MEDS: CITRIC ACID/NA CITRATE 30 ML CUP PO SCH ×2 (09:00→21:00)
[2017-05-27] MEDS: CARBIDOPA/LEVODOPA (25/100) TAB GTB SCH ×3 (09:00→21:00)
[2017-05-27] MEDS: MULTIVIT/CA CARB/B CMPLX/FA TAB GTB SCH (09:00)
[2017-05-27] MEDS: MEMANTINE 5 MG TAB GTB SCH (09:00)
[2017-05-27] MEDS: FOLIC ACID 1 MG TAB GTB SCH (09:00)
[2017-05-27] MEDS: PRAMIPEXOLE 0.25 MG TAB GTB SCH (09:00)
[2017-05-27] MEDS: MIDODRINE 5 MG TAB GTB SCH ×3 (09:00→17:00)
[2017-05-27] MEDS: FERROUS SULFATE (EC) 325 MG TAB PO SCH ×2 (09:00→21:00)
--- NOTE | 2017-05-27 09:10 | CONS ---
Date/Time of Note Date/Time of Note DATE: 05/27/17 TIME: 09:09 Assessment/Plan Assessment/Plan Chief Complaint/Hosp Course 86-year-old debilitated female admitted from subacute with dislodged G-tube. However during hospital course she has developed respiratory failure is currently in the intensive care unit. Major comorbid medical problems include history of advanced dementia, she is PEG trached and chronic kidney disease. She remains in intensive care unit critically ill, she is a full code family members have not addressed ongoing goals of care. Problems: Additional Assessment/Plan Postdated note for visit May 26, 2017. Patient's son has never returned my phone call after my initial conversation with him which was difficult as he was aggressive and unhappy with my phone call. At this time I believe the bioethics consult is in order goals of care should be discussed with patient's son. It is my understanding that he has not visited his mother recently. Consultation Date/Type/Reason Admit Date/Time May 06, 2017 at 16:34 Initial Consult Date 05/22/17 Type of Consultation: Palliative care Exam/Review of Systems Vital Signs Vitals Vital Signs Date Time Temp Pulse Resp B/P Pulse Ox O2 Delivery O2 Flow Rate FiO2 05/27/17 07:15 87 16 98/47 05/27/17 07:00 100 Mechanical Ventilator 05/27/17 04:55 30 05/27/17 04:00 98.4 Intake and Output 05/26/17 05/26/17 05/27/17 15:00 23:00 07:00 Intake Total 1141.728 ml 1200.198 ml 782.64 ml Output Total 745 ml 600 ml 385 ml Balance 396.728 ml 600.198 ml 397.64 ml Results Result Diagram: 05/26/17 0430 05/26/17 0430 Results 24 hrs Laboratory Tests Test 05/26/17 09:52 05/26/17 10:17 05/26/17 11:13 05/26/17 13:11 Bedside Glucose 70 103 82 67 L Test 05/26/17 13:59 05/26/17 17:30 05/26/17 21:11 05/26/17 21:33 Bedside Glucose 99 80 65 L 111 Test 05/27/17 00:54 05/27/17 04:00 05/27/17 04:46 05/27/17 05:00 Bedside Glucose 95 167 Lactic Acid Level 1.7 Blood Gas Specimen Source Blood arterial Arterial Blood Date Drawn 05/27/2017 7:30:35 AM Arterial Blood pH (Temp corrected) 7.380 Arterial Blood pCO2 (Temp correct) 32.9 L Arterial Blood pO2 (Temp corrected) 85.5 Arterial Blood HCO3 19.0 L Arterial Blood Base Excess -5.3 L Arterial Blood Oxygen Saturation 96.0 Faustino Test ACCEPTAB Arterial Blood Gas Puncture Site Left Radial Arterial Blood Carboxyhemoglobin 0.5 Arterial Blood Methemoglobin 0.6 Blood Gas A-a O2 Differential 89.7 H Oxyhemoglobin Percent 94.9 Total Hemoglobin 11.3 L Blood Gas Temperature 37.0 Blood Gas Respiration Rate 16.0 Blood Gas Actual Respiration Rate 20 Blood Gas Modality VENT - AC FiO2 30.0 Blood Gas Tidal Volume 500.0 Blood Gas Low PEEP Setting 5.0 Blood Gas Notified Whom JLD Blood Gas Notified Time 05/27/2017 7:46:31 AM Test 05/27/17 08:43 Lab Scanned Report REFERENCE LAB Medications Medications Current Medications Atorvastatin Calcium (Lipitor) 10 mg QHS GTB Last administered on 05/19/17 21: 00; Admin Dose 10 MG; Start 05/06/17 at 21:00 Bisacodyl (Dulcolax Supp) 10 mg Q48H OR Last administered on 05/22/17 16:38; Admin Dose 10 MG; Start 05/06/17 at 17:00 Carbidopa/Levodopa (Sinemet (25/ 100)) 1 tab TID GTB Last administered on 14:01; Admin Dose 1 TAB; Start 05/06/17 at 21:00 Clopidogrel Bisulfate (plaVIX) 75 mg DAILY GTB Last administered on 05/17/17 10:40; Admin Dose 75 MG; Start 05/07/17 at 09:00; Status Future Hold Donepezil HCl (Aricept) 10 mg QHS GTB Last administered on 05/19/17 21:00; Admin Dose 10 MG; Start 05/06/17 at 21:00 Ferrous Sulfate (Ferrous Sulfate (Ec)) 325 mg BID PO Last administered on 09:09; Admin Dose 325 MG; Start 05/06/17 at 21:00 Folic Acid (Folic Acid) 1 mg DAILY GTB Last administered on 05/22/17 09:09; Admin Dose 1 MG; Start 05/07/17 at 09:00 Lactobacillus Acidophilus/ Rhamnosus (Culturelle) 1 cap QHS GTB Last administered on 05/19/17 21:00; Admin Dose 1 CAP; Start 05/06/17 at 21:00 Magnesium Hydroxide (Milk Of Mag) 30 ml Q24H GTB Last administered on 05/22/17 16:38; Admin Dose 30 ML; Start 05/06/17 at 17:00 Memantine (Namenda) 5 mg QAM GTB Last administered on 05/22/17 09:10; Admin Dose 5 MG; Start 05/07/17 at 09:00 Metoprolol Tartrate (Lopressor) 25 mg Q12H GTB Last administered on 05/18/17 16:47; Admin Dose 25 MG; Start 05/06/17 at 17:00; Status Future Hold Multivit/Ca Carb/ B Cmplx/FA/Prenat (Radhika-John) 1 tab DAILY GTB Last administered on 05/22/17 09:09; Admin Dose 1 TAB; Start 05/07/17 at 09:00 Pramipexole (Mirapex) 0.5 mg DAILY GTB Last administered on 05/22/17 09:09; Admin Dose 0.5 MG; Start 05/07/17 at 09:00 Sodium Biphosphate/ Sodium Phosphate (Fleet Enema Pediatric) 118 ml Q72H PRN OR CONSTIPATION; Start 05/06/17 at 17:00 Citric Acid/ Sodium Citrate (Bicitra) 30 ml BID PO Last administered on 09:09; Admin Dose 30 ML; Start 05/06/17 at 21:00 Nystatin (Nystatin Powder) 1 applic BID TOP Last administered on 05/26/17 21:22 ; Admin Dose 1 APPLIC; Start 05/09/17 at 21:00 Collagenase (Santyl) 1 applic DAILY TOP Last administered on 05/26/17 09:46; Admin Dose 1 APPLIC; Start 05/09/17 at 15:00 Collagenase 1 applic 1 applic PRN PRN TOP WOUND CARE; Start 05/09/17 at 14:00 Norepinephrine 16 mg/Dextrose 500 ml @ 1.87 mls/hr TITRATE IV ; Start 05/10/17 at 14:00 Dopamine HCl/ Dextrose 250 ml @ 6.848 mls/ hr TITRATE IV Last administered on 05/27/17 03:58; Admin Dose 23.9 MLS/HR; Start 05/10/17 at 18:30 Miscellaneous Information 1 ea NOTE XX ; Start 05/11/17 at 08:00 Glucose (Glutose) 15 gm Q15M PRN PO DECREASED GLUCOSE; Start 05/11/17 at 08:00 Glucose (Glutose) 22.5 gm Q15M PRN PO DECREASED GLUCOSE; Start 05/11/17 at 08: 00 Dextrose (D50w Syringe) 25 ml Q15M PRN IV DECREASED GLUCOSE Last administered on 05/26/17 21:15; Admin Dose 25 ML; Start 05/11/17 at 08:00 Dextrose (D50w Syringe) 50 ml Q15M PRN IV DECREASED GLUCOSE Last administered on 05/15/17 00:11; Admin Dose 50 ML; Start 05/11/17 at 08:00 Glucagon (Glucagen) 1 mg Q15M PRN IM DECREASED GLUCOSE; Start 05/11/17 at 08:00 Glucose (Glutose) 15 gm Q15M PRN BUCCAL DECREASED GLUCOSE; Start 05/11/17 at 08 :00 Epoetin Vasyl (Epogen (Esrd)) 10,000 units MoWeFr@17 SC Last administered on 05/24 18:54; Admin Dose 10,000 UNITS; Start 05/13/17 at 17:00 IV Flush (NS 10 ml) 10 ml PRN PRN IV IV PROTOCOL; Start 05/15/17 at 17:30 Pantoprazole 40 mg 40 mg BID@06,18 IV Last administered on 05/27/17 06:08; Admin Dose 40 MG; Start 05/16/17 at 10:00 Trimethoprim/ Sulfamethoxazole/ Dextrose (Bactrim/D5W) 260 ml @ 173.333 mls/hr Q8 IVPB Last administered on 05/27/17 06:07; Admin Dose 173.333 MLS/HR; Start 05/19/17 at 21:00 Amikacin Sulfate AMIKACIN PER PHARMACY NOTE XX ; Start 05/19/17 at 18:00 Cefepime HCl 0.5 gm/Sodium Chloride 100 ml @ 100 mls/hr Q24H IVPB Last administered on 05/26/17 20:12; Admin Dose 100 MLS/HR; Start 05/19/17 at 20:00 Amikacin Sulfate/ Sodium Chloride (Amikacin/NS) 101.4 ml @ 101.4 mls/ hr Q96H IVPB Last administered on 05/23/17 23:29; Admin Dose 101.4 MLS/HR; Start at 21:00 Midodrine (Proamatine) 10 mg TID@,, GTB ; Start 05/23/17 at 09:00 Heparin Sodium (Porcine) 5000 unit 5,000 unit BID SC Last administered on 21:19; Admin Dose 5,000 UNIT; Start 05/23/17 at 09:00 Dextrose/Sodium Chloride (D5-1/2ns) 1,000 ml @ 75 mls/hr [id number] IV Last administered on 05/26/17 06:29; Admin Dose 75 MLS/HR; Start 05/23/17 at 11:30; Status Future Hold Insulin Aspart NOVOLOG *MILD* ALGORI... Q4 SC Last administered on 05/27/17 04: 50; Admin Dose 1 UNIT; Start 05/26/17 at 09:00 Sodium Chloride 77 meq/Dextrose 1,019.25 ml @ 75 mls/hr [id number] IV Last administered on 05/27/17 03:00; Admin Dose 75 MLS/HR; Start 05/26/17 at 16:00 Total Parenteral Nutrition (Tpn) 1,000 ml @ 40 mls/hr Q24H IV ; Start 05/27/17 at 08:00; Status PENELOPE HERRERA May 27, 2017 09:10
--- NOTE | 2017-05-27 09:29 | PN ---
DATE: 05/27/2017 SUBJECTIVE DATA: The patient remains critically ill, on presser support. No other events noted. No hemoptysis, hematemesis, hematochezia. OBJECTIVE DATA: VITAL SIGNS: Blood pressure is 104/47, respirations 16, pulse 87, temperature 98.6. Intake and output, patient had 2.8 L in, and 1.5 L out. HEENT: Head is normocephalic. NECK: Supple. HEART: Regular rate. LUNGS: Diminished breath sounds at the base. ABDOMEN: Soft, nontender to palpation. No rebound or guarding. EXTREMITIES: Negative for clubbing, cyanosis. Positive edema. Positive contractures. DERMATOLOGIC: No rashes. MUSCULOSKELETAL: No joint effusion. NEUROLOGIC: No change in exam. MEDICATIONS: The patient's medications were reviewed. LABORATORY AND DIAGNOSTIC DATA: White count 6.9, hemoglobin 10.5, hematocrit 32.5; platelet count is 197. Patient's BNP is pending. ASSESSMENT AND PLAN: 1. Septic shock. Etiology secondary to pneumonia, cellulitis, and decubitus wound. The patient is on presser support, unable to be weaned off. Continue current treatment plan. Continue broad-spectrum antibiotics and IV fluids. 2. Anemia. Monitor hemoglobin and hematocrit levels. Continue Epogen. 3. . The patient is pending gastro-jejunal tube placement by Gastroenterology, General Surgery once clinically stable. 4. Ventilatory-dependent respiratory failure. Ventilator settings have been reviewed. Arterial blood gases reviewed. Continue to monitor. 5. Nonoliguric acute kidney injury on top of chronic kidney disease, stage 4. Etiology secondary to hemodynamics. Continue current treatment plan, supportive care, and renally dose all medications. 6. Encephalopathy with advanced dementia. Etiology toxic metabolic. Continue to monitor. 7. Mineral bone disorder. Continue to monitor calcium and phosphorus levels. 8. Coronary artery disease. Continue current treatment plan. 9. Diabetes. Continue Accu-Cheks and insulin sliding scale. 10. Decubitus wound. Continue wound care. 11. Gastrointestinal and deep venous thrombosis prophylaxis. Continue proton-pump inhibitor and heparin. 12. Nutrition. Will start the patient on total parenteral nutrition. Please note, I spent over 35 minutes of critical care time with this patient. Dictated By: Brendan Rosas DO /junie/lloyd /Document#: [id number]
--- NOTE | 2017-05-27 09:45 | CONS ---
Date/Time of Note Date/Time of Note DATE: 05/27/17 TIME: 09:44 Assessment/Plan Assessment/Plan Chief Complaint/Hosp Course 86-year-old debilitated female admitted from subacute with dislodged G-tube. However during hospital course she has developed respiratory failure is currently in the intensive care unit. Major comorbid medical problems include history of advanced dementia, she is PEG trached and chronic kidney disease. She remains in intensive care unit critically ill, she is a full code family members have not addressed ongoing goals of care. Problems: Additional Assessment/Plan Suggested bioethics consultation awaiting referral. Consultation Date/Type/Reason Admit Date/Time May 06, 2017 at 16:34 Initial Consult Date 05/22/17 Type of Consultation: Palliative care Exam/Review of Systems Vital Signs Vitals Vital Signs Date Time Temp Pulse Resp B/P Pulse Ox O2 Delivery O2 Flow Rate FiO2 05/27/17 08:00 87 05/27/17 07:15 16 98/47 05/27/17 07:00 100 Mechanical Ventilator 05/27/17 04:55 30 05/27/17 04:00 98.4 Intake and Output 05/26/17 05/26/17 05/27/17 14:59 22:59 06:59 Intake Total 956.728 ml 1125.504 ml 1141.30 ml Output Total 645 ml 660 ml 425 ml Balance 311.728 ml 465.504 ml 716.30 ml Results Result Diagram: 05/26/17 0430 05/26/17 0430 Results 24 hrs Laboratory Tests Test 05/26/17 09:52 05/26/17 10:17 05/26/17 11:13 05/26/17 13:11 Bedside Glucose 70 103 82 67 L Test 05/26/17 13:59 05/26/17 17:30 05/26/17 21:11 05/26/17 21:33 Bedside Glucose 99 80 65 L 111 Test 05/26/17 22:12 05/27/17 00:54 05/27/17 04:00 05/27/17 04:46 Amikacin Level Trough Bedside Glucose 95 167 Lactic Acid Level 1.7 Test 05/27/17 05:00 05/27/17 08:43 Blood Gas Specimen Source Blood arterial Arterial Blood Date Drawn 05/27/2017 7:30:35 AM Arterial Blood pH (Temp corrected) 7.380 Arterial Blood pCO2 (Temp correct) 32.9 L Arterial Blood pO2 (Temp corrected) 85.5 Arterial Blood HCO3 19.0 L Arterial Blood Base Excess -5.3 L Arterial Blood Oxygen Saturation 96.0 Faustino Test ACCEPTAB Arterial Blood Gas Puncture Site Left Radial Arterial Blood Carboxyhemoglobin 0.5 Arterial Blood Methemoglobin 0.6 Blood Gas A-a O2 Differential 89.7 H Oxyhemoglobin Percent 94.9 Total Hemoglobin 11.3 L Blood Gas Temperature 37.0 Blood Gas Respiration Rate 16.0 Blood Gas Actual Respiration Rate 20 Blood Gas Modality VENT - AC FiO2 30.0 Blood Gas Tidal Volume 500.0 Blood Gas Low PEEP Setting 5.0 Blood Gas Notified Whom JLD Blood Gas Notified Time 05/27/2017 7:46:31 AM Lab Scanned Report REFERENCE LAB Medications Medications Current Medications Atorvastatin Calcium (Lipitor) 10 mg QHS GTB Last administered on 05/19/17 21: 00; Admin Dose 10 MG; Start 05/06/17 at 21:00 Bisacodyl (Dulcolax Supp) 10 mg Q48H NM Last administered on 05/22/17 16:38; Admin Dose 10 MG; Start 05/06/17 at 17:00 Carbidopa/Levodopa (Sinemet (25/ 100)) 1 tab TID GTB Last administered on 14:01; Admin Dose 1 TAB; Start 05/06/17 at 21:00 Clopidogrel Bisulfate (plaVIX) 75 mg DAILY GTB Last administered on 05/17/17 10:40; Admin Dose 75 MG; Start 05/07/17 at 09:00; Status Future Hold Donepezil HCl (Aricept) 10 mg QHS GTB Last administered on 05/19/17 21:00; Admin Dose 10 MG; Start 05/06/17 at 21:00 Ferrous Sulfate (Ferrous Sulfate (Ec)) 325 mg BID PO Last administered on 09:09; Admin Dose 325 MG; Start 05/06/17 at 21:00 Folic Acid (Folic Acid) 1 mg DAILY GTB Last administered on 05/22/17 09:09; Admin Dose 1 MG; Start 05/07/17 at 09:00 Lactobacillus Acidophilus/ Rhamnosus (Culturelle) 1 cap QHS GTB Last administered on 05/19/17 21:00; Admin Dose 1 CAP; Start 05/06/17 at 21:00 Magnesium Hydroxide (Milk Of Mag) 30 ml Q24H GTB Last administered on 05/22/17 16:38; Admin Dose 30 ML; Start 05/06/17 at 17:00 Memantine (Namenda) 5 mg QAM GTB Last administered on 05/22/17 09:10; Admin Dose 5 MG; Start 05/07/17 at 09:00 Metoprolol Tartrate (Lopressor) 25 mg Q12H GTB Last administered on 05/18/17 16:47; Admin Dose 25 MG; Start 05/06/17 at 17:00; Status Future Hold Multivit/Ca Carb/ B Cmplx/FA/Prenat (Radhika-John) 1 tab DAILY GTB Last administered on 05/22/17 09:09; Admin Dose 1 TAB; Start 05/07/17 at 09:00 Pramipexole (Mirapex) 0.5 mg DAILY GTB Last administered on 05/22/17 09:09; Admin Dose 0.5 MG; Start 05/07/17 at 09:00 Sodium Biphosphate/ Sodium Phosphate (Fleet Enema Pediatric) 118 ml Q72H PRN NM CONSTIPATION; Start 05/06/17 at 17:00 Citric Acid/ Sodium Citrate (Bicitra) 30 ml BID PO Last administered on 09:09; Admin Dose 30 ML; Start 05/06/17 at 21:00 Nystatin (Nystatin Powder) 1 applic BID TOP Last administered on 05/26/17 21:22 ; Admin Dose 1 APPLIC; Start 05/09/17 at 21:00 Collagenase (Santyl) 1 applic DAILY TOP Last administered on 05/26/17 09:46; Admin Dose 1 APPLIC; Start 05/09/17 at 15:00 Collagenase 1 applic 1 applic PRN PRN TOP WOUND CARE; Start 05/09/17 at 14:00 Norepinephrine 16 mg/Dextrose 500 ml @ 1.87 mls/hr TITRATE IV ; Start 05/10/17 at 14:00 Dopamine HCl/ Dextrose 250 ml @ 6.848 mls/ hr TITRATE IV Last administered on 05/27/17 03:58; Admin Dose 23.9 MLS/HR; Start 05/10/17 at 18:30 Miscellaneous Information 1 ea NOTE XX ; Start 05/11/17 at 08:00 Glucose (Glutose) 15 gm Q15M PRN PO DECREASED GLUCOSE; Start 05/11/17 at 08:00 Glucose (Glutose) 22.5 gm Q15M PRN PO DECREASED GLUCOSE; Start 05/11/17 at 08: 00 Dextrose (D50w Syringe) 25 ml Q15M PRN IV DECREASED GLUCOSE Last administered on 05/26/17 21:15; Admin Dose 25 ML; Start 05/11/17 at 08:00 Dextrose (D50w Syringe) 50 ml Q15M PRN IV DECREASED GLUCOSE Last administered on 05/15/17 00:11; Admin Dose 50 ML; Start 05/11/17 at 08:00 Glucagon (Glucagen) 1 mg Q15M PRN IM DECREASED GLUCOSE; Start 05/11/17 at 08:00 Glucose (Glutose) 15 gm Q15M PRN BUCCAL DECREASED GLUCOSE; Start 05/11/17 at 08 :00 Epoetin Vasyl (Epogen (Esrd)) 10,000 units MoWeFr@17 SC Last administered on 05/24 18:54; Admin Dose 10,000 UNITS; Start 05/13/17 at 17:00 IV Flush (NS 10 ml) 10 ml PRN PRN IV IV PROTOCOL; Start 05/15/17 at 17:30 Pantoprazole 40 mg 40 mg BID@06,18 IV Last administered on 05/27/17 06:08; Admin Dose 40 MG; Start 05/16/17 at 10:00 Trimethoprim/ Sulfamethoxazole/ Dextrose (Bactrim/D5W) 260 ml @ 173.333 mls/hr Q8 IVPB Last administered on 05/27/17 06:07; Admin Dose 173.333 MLS/HR; Start 05/19/17 at 21:00 Amikacin Sulfate AMIKACIN PER PHARMACY NOTE XX ; Start 05/19/17 at 18:00 Cefepime HCl 0.5 gm/Sodium Chloride 100 ml @ 100 mls/hr Q24H IVPB Last administered on 05/26/17 20:12; Admin Dose 100 MLS/HR; Start 05/19/17 at 20:00 Amikacin Sulfate/ Sodium Chloride (Amikacin/NS) 101.4 ml @ 101.4 mls/ hr Q96H IVPB Last administered on 05/23/17 23:29; Admin Dose 101.4 MLS/HR; Start at 21:00 Midodrine (Proamatine) 10 mg TID@09,,17 GTB ; Start 05/23/17 at 09:00 Heparin Sodium (Porcine) 5000 unit 5,000 unit BID SC Last administered on 21:19; Admin Dose 5,000 UNIT; Start 05/23/17 at 09:00 Dextrose/Sodium Chloride (D5-1/2ns) 1,000 ml @ 75 mls/hr [id number] IV Last administered on 05/26/17 06:29; Admin Dose 75 MLS/HR; Start 05/23/17 at 11:30; Status Future Hold Insulin Aspart NOVOLOG *MILD* ALGORI... Q4 SC Last administered on 05/27/17 04: 50; Admin Dose 1 UNIT; Start 05/26/17 at 09:00 Sodium Chloride 77 meq/Dextrose 1,019.25 ml @ 75 mls/hr [id number] IV Last administered on 05/27/17 03:00; Admin Dose 75 MLS/HR; Start 05/26/17 at 16:00 Total Parenteral Nutrition (Tpn) 1,000 ml @ 40 mls/hr Q24H IV ; Start 05/27/17 at 08:00; Status LAKHWINDERV PENELOPE POPE May 27, 2017 09:45
[2017-05-27] MEDS: HEPARIN 5,000 UNIT/0.5 ML VIAL SC SCH ×2 (09:53→22:02)
[2017-05-27] MEDS: COLLAGENASE 30 GM TUBE TOP SCH (09:54)
[2017-05-27] MEDS: NYSTATIN 30 GM POWDER BTL TOP SCH ×2 (09:54→22:00)
--- NOTE | 2017-05-27 12:18 | CONS ---
Date/Time of Note Date/Time of Note DATE: 05/27/17 TIME: 12:16 Consult Date/Type/Reason Admit Date/Time May 06, 2017 at 16:34 Initial Consult Date 05/10/17 Type of Consultation: Pulmonary Subjective Remains somnolent on mechanical ventilation. Objective Vital Signs Date Time Temp Pulse Resp B/P Pulse Ox O2 Delivery O2 Flow Rate FiO2 05/27/17 08:00 87 05/27/17 07:15 16 98/47 05/27/17 07:00 100 Mechanical Ventilator 05/27/17 04:55 30 05/27/17 04:00 98.4 Intake and Output 05/26/17 05/26/17 05/27/17 14:59 22:59 06:59 Intake Total 956.728 ml 1125.504 ml 1141.30 ml Output Total 645 ml 660 ml 425 ml Balance 311.728 ml 465.504 ml 716.30 ml Exam PHYSICAL EXAMINATION GENERAL: Elderly lady chronically ill-appearing on mechanical ventilation via tracheostomy VITAL SIGNS: see below. HEENT: Pupils equal, round, and reactive to light. Tracheostomy site clean and intact. CARDIAC: S1, S2, 2/6 systolic ejection murmur CHEST: Diminished air entry bilaterally. ABDOMEN: Mildly distended. Bowel sounds present no guarding or rebound EXTREMITIES: No cyanosis, clubbing edema +2 NEUROLOGIC: Generalized weakness Results/Medications Result Diagram: 05/26/17 0430 05/26/17 0430 Results 24 hrs Laboratory Tests Test 05/26/17 13:11 05/26/17 13:59 05/26/17 17:30 05/26/17 21:11 Bedside Glucose 67 L 99 80 65 L Test 05/26/17 21:33 05/26/17 22:12 05/27/17 00:54 05/27/17 04:00 Bedside Glucose 111 95 Amikacin Level Trough Lactic Acid Level 1.7 Test 05/27/17 04:46 05/27/17 05:00 05/27/17 08:43 05/27/17 09:49 Bedside Glucose 167 80 Blood Gas Specimen Source Blood arterial Arterial Blood Date Drawn 05/27/2017 7:30:35 AM Arterial Blood pH (Temp corrected) 7.380 Arterial Blood pCO2 (Temp correct) 32.9 L Arterial Blood pO2 (Temp corrected) 85.5 Arterial Blood HCO3 19.0 L Arterial Blood Base Excess -5.3 L Arterial Blood Oxygen Saturation 96.0 Faustino Test ACCEPTAB Arterial Blood Gas Puncture Site Left Radial Arterial Blood Carboxyhemoglobin 0.5 Arterial Blood Methemoglobin 0.6 Blood Gas A-a O2 Differential 89.7 H Oxyhemoglobin Percent 94.9 Total Hemoglobin 11.3 L Blood Gas Temperature 37.0 Blood Gas Respiration Rate 16.0 Blood Gas Actual Respiration Rate 20 Blood Gas Modality VENT - AC FiO2 30.0 Blood Gas Tidal Volume 500.0 Blood Gas Low PEEP Setting 5.0 Blood Gas Notified Whom JLD Blood Gas Notified Time 05/27/2017 7:46:31 AM Lab Scanned Report REFERENCE LAB Medications Current Medications Atorvastatin Calcium (Lipitor) 10 mg QHS GTB Last administered on 05/19/17 21: 00; Admin Dose 10 MG; Start 05/06/17 at 21:00 Bisacodyl (Dulcolax Supp) 10 mg Q48H ND Last administered on 05/22/17 16:38; Admin Dose 10 MG; Start 05/06/17 at 17:00 Carbidopa/Levodopa (Sinemet (25/ 100)) 1 tab TID GTB Last administered on 14:01; Admin Dose 1 TAB; Start 05/06/17 at 21:00 Clopidogrel Bisulfate (plaVIX) 75 mg DAILY GTB Last administered on 05/17/17 10:40; Admin Dose 75 MG; Start 05/07/17 at 09:00; Status Future Hold Donepezil HCl (Aricept) 10 mg QHS GTB Last administered on 05/19/17 21:00; Admin Dose 10 MG; Start 05/06/17 at 21:00 Ferrous Sulfate (Ferrous Sulfate (Ec)) 325 mg BID PO Last administered on 09:09; Admin Dose 325 MG; Start 05/06/17 at 21:00 Folic Acid (Folic Acid) 1 mg DAILY GTB Last administered on 05/22/17 09:09; Admin Dose 1 MG; Start 05/07/17 at 09:00 Lactobacillus Acidophilus/ Rhamnosus (Culturelle) 1 cap QHS GTB Last administered on 05/19/17 21:00; Admin Dose 1 CAP; Start 05/06/17 at 21:00 Magnesium Hydroxide (Milk Of Mag) 30 ml Q24H GTB Last administered on 05/22/17 16:38; Admin Dose 30 ML; Start 05/06/17 at 17:00 Memantine (Namenda) 5 mg QAM GTB Last administered on 05/22/17 09:10; Admin Dose 5 MG; Start 05/07/17 at 09:00 Metoprolol Tartrate (Lopressor) 25 mg Q12H GTB Last administered on 05/18/17 16:47; Admin Dose 25 MG; Start 05/06/17 at 17:00; Status Future Hold Multivit/Ca Carb/ B Cmplx/FA/Prenat (Radhika-John) 1 tab DAILY GTB Last administered on 05/22/17 09:09; Admin Dose 1 TAB; Start 05/07/17 at 09:00 Pramipexole (Mirapex) 0.5 mg DAILY GTB Last administered on 05/22/17 09:09; Admin Dose 0.5 MG; Start 05/07/17 at 09:00 Sodium Biphosphate/ Sodium Phosphate (Fleet Enema Pediatric) 118 ml Q72H PRN [place] CONSTIPATION; Start 05/06/17 at 17:00 Citric Acid/ Sodium Citrate (Bicitra) 30 ml BID PO Last administered on 09:09; Admin Dose 30 ML; Start 05/06/17 at 21:00 Nystatin (Nystatin Powder) 1 applic BID TOP Last administered on 05/27/17 09:54 ; Admin Dose 1 APPLIC; Start 05/09/17 at 21:00 Collagenase (Santyl) 1 applic DAILY TOP Last administered on 05/27/17 09:54; Admin Dose 1 APPLIC; Start 05/09/17 at 15:00 Collagenase 1 applic 1 applic PRN PRN TOP WOUND CARE; Start 05/09/17 at 14:00 Norepinephrine 16 mg/Dextrose 500 ml @ 1.87 mls/hr TITRATE IV ; Start 05/10/17 at 14:00 Dopamine HCl/ Dextrose 250 ml @ 6.848 mls/ hr TITRATE IV Last administered on 05/27/17 03:58; Admin Dose 23.9 MLS/HR; Start 05/10/17 at 18:30 Miscellaneous Information 1 ea NOTE XX ; Start 05/11/17 at 08:00 Glucose (Glutose) 15 gm Q15M PRN PO DECREASED GLUCOSE; Start 05/11/17 at 08:00 Glucose (Glutose) 22.5 gm Q15M PRN PO DECREASED GLUCOSE; Start 05/11/17 at 08: 00 Dextrose (D50w Syringe) 25 ml Q15M PRN IV DECREASED GLUCOSE Last administered on 05/26/17 21:15; Admin Dose 25 ML; Start 05/11/17 at 08:00 Dextrose (D50w Syringe) 50 ml Q15M PRN IV DECREASED GLUCOSE Last administered on 05/15/17 00:11; Admin Dose 50 ML; Start 05/11/17 at 08:00 Glucagon (Glucagen) 1 mg Q15M PRN IM DECREASED GLUCOSE; Start 05/11/17 at 08:00 Glucose (Glutose) 15 gm Q15M PRN BUCCAL DECREASED GLUCOSE; Start 05/11/17 at 08 :00 Epoetin Vasyl (Epogen (Esrd)) 10,000 units MoWeFr@17 SC Last administered on 05/24 18:54; Admin Dose 10,000 UNITS; Start 05/13/17 at 17:00 IV Flush (NS 10 ml) 10 ml PRN PRN IV IV PROTOCOL; Start 05/15/17 at 17:30 Pantoprazole 40 mg 40 mg BID@06,18 IV Last administered on 05/27/17 06:08; Admin Dose 40 MG; Start 05/16/17 at 10:00 Trimethoprim/ Sulfamethoxazole/ Dextrose (Bactrim/D5W) 260 ml @ 173.333 mls/hr Q8 IVPB Last administered on 05/27/17 06:07; Admin Dose 173.333 MLS/HR; Start 05/19/17 at 21:00 Amikacin Sulfate AMIKACIN PER PHARMACY NOTE XX ; Start 05/19/17 at 18:00 Cefepime HCl 0.5 gm/Sodium Chloride 100 ml @ 100 mls/hr Q24H IVPB Last administered on 05/26/17 20:12; Admin Dose 100 MLS/HR; Start 05/19/17 at 20:00 Amikacin Sulfate/ Sodium Chloride (Amikacin/NS) 101.4 ml @ 101.4 mls/ hr Q96H IVPB Last administered on 05/23/17 23:29; Admin Dose 101.4 MLS/HR; Start at 21:00 Midodrine (Proamatine) 10 mg TID@09,,17 GTB ; Start 05/23/17 at 09:00 Heparin Sodium (Porcine) 5000 unit 5,000 unit BID SC Last administered on 09:53; Admin Dose 5,000 UNIT; Start 05/23/17 at 09:00 Dextrose/Sodium Chloride (D5-1/2ns) 1,000 ml @ 75 mls/hr [id number] IV Last administered on 05/26/17 06:29; Admin Dose 75 MLS/HR; Start 05/23/17 at 11:30; Status Future Hold Insulin Aspart NOVOLOG *MILD* ALGORI... Q4 SC Last administered on 05/27/17 04: 50; Admin Dose 1 UNIT; Start 05/26/17 at 09:00 Sodium Chloride 77 meq/Dextrose 1,019.25 ml @ 75 mls/hr [id number] IV Last administered on 05/27/17 03:00; Admin Dose 75 MLS/HR; Start 05/26/17 at 16:00 Total Parenteral Nutrition (Tpn) 1,000 ml @ 40 mls/hr Q24H IV ; Start 05/27/17 at 14:00 Assessment/Plan Chief Complaint/Hosp Course Additional Assessment/Plan IMP: 1. Septic shock 2. VDRF 3. ? HCAP 4. Cellulitis 5. Urosepsis 6. Encephalopathy 7. STARLA RECS: 1. Pressors to MAP > 65 mmHg 2. Vent support 3. Palliative Care consultation. Bioethics meeting. 4. TF's/Free H20 5. Chest x-ray demonstrates patchy infiltrates, pulmonary edema and small effusions. Critical care time 35 minutes. Problems: JARED CLAIRE MD, [facility] May 27, 2017 12:18
[2017-05-27] MEDS: TPN 1,000 ML IV SCH (14:38)
[2017-05-27] MEDS: MAGNESIUM HYDROXIDE 30ML CUP GTB SCH (17:00)
[2017-05-27] MEDS: EPOETIN 10000 UNITS/1 ML INJ (ESRD) SC SCH (17:07)
--- NOTE | 2017-05-27 17:58 | CONS ---
Date/Time of Note Date/Time of Note DATE: 05/27/17 TIME: 17:57 Assessment/Plan Assessment/Plan Chief Complaint/Hosp Course This 69-year-old female with a history of CVA vent dependent respiratory failure , was brought to the emergency room for the dislodgment of the GJ tube. Patient is nonverbal and no information can be obtained. No GI bleeding no chest pain no shortness of breath. Problems: Additional Assessment/Plan Problems: Additional Assessment/Plan Additional Assessment/Plan Additional Assessment/Plan 1. Dislodged of the GJ tube accidentally 2. Vent dependent respiratory failure 3. Chronic encephalopathy 4. Renal failure 5. Peripheral vascular disease 6. Anemia 7. Large gastrocutaneous fistula, endoscopically it is not possible given to keep the largest diameter GJ tube in place Plan Case discussed with Dr. Blackburn and told him to proceed with jejunostomy tube. Continue all supportive care patient needs surgical repair of gastrocutaneous fistula and possible new jejunostomy tube Consultation Date/Type/Reason Admit Date/Time May 06, 2017 at 16:34 Type of Consultation: Pulmonary 24 HR Interval Summary Subjective hx not possible: pt non-verbal, pt critical Exam/Review of Systems Vital Signs Vitals Vital Signs Date Time Temp Pulse Resp B/P Pulse Ox O2 Delivery O2 Flow Rate FiO2 05/27/17 17:20 85 16 100 30 05/27/17 15:30 101/55 05/27/17 15:00 Mechanical Ventilator 05/27/17 12:00 97.4 Intake and Output 05/26/17 05/26/17 05/27/17 15:00 23:00 07:00 Intake Total 1141.728 ml 1200.198 ml 1803.14 ml Output Total 745 ml 600 ml 385 ml Balance 396.728 ml 600.198 ml 1418.14 ml Exam Respiratory: other (Patient is on vent) Cardiovascular: nl pulses, regular rate and rhythm Gastrointestinal: nl liver, spleen, non-tender, other (Gastrocutaneous fistula external stoma is large), soft Extremities: normal pulses Neurological: unresponsive Results Result Diagram: 05/26/17 0430 05/26/17 0430 Results 24 hrs Laboratory Tests Test 05/26/17 21:11 05/26/17 21:33 05/26/17 22:12 05/27/17 00:54 Bedside Glucose 65 L 111 95 Amikacin Level Trough Test 05/27/17 04:00 05/27/17 04:46 05/27/17 05:00 05/27/17 08:43 Lactic Acid Level 1.7 Bedside Glucose 167 Blood Gas Specimen Source Blood arterial Arterial Blood Date Drawn 05/27/2017 7:30:35 AM Arterial Blood pH (Temp corrected) 7.380 Arterial Blood pCO2 (Temp correct) 32.9 L Arterial Blood pO2 (Temp corrected) 85.5 Arterial Blood HCO3 19.0 L Arterial Blood Base Excess -5.3 L Arterial Blood Oxygen Saturation 96.0 Faustino Test ACCEPTAB Arterial Blood Gas Puncture Site Left Radial Arterial Blood Carboxyhemoglobin 0.5 Arterial Blood Methemoglobin 0.6 Blood Gas A-a O2 Differential 89.7 H Oxyhemoglobin Percent 94.9 Total Hemoglobin 11.3 L Blood Gas Temperature 37.0 Blood Gas Respiration Rate 16.0 Blood Gas Actual Respiration Rate 20 Blood Gas Modality VENT - AC FiO2 30.0 Blood Gas Tidal Volume 500.0 Blood Gas Low PEEP Setting 5.0 Blood Gas Notified Whom JLD Blood Gas Notified Time 05/27/2017 7:46:31 AM Lab Scanned Report REFERENCE LAB Test 05/27/17 09:49 05/27/17 13:07 05/27/17 17:08 Bedside Glucose 80 79 82 Medications Medications Current Medications Atorvastatin Calcium (Lipitor) 10 mg QHS GTB Last administered on 05/19/17 21: 00; Admin Dose 10 MG; Start 05/06/17 at 21:00 Bisacodyl (Dulcolax Supp) 10 mg Q48H MN Last administered on 05/22/17 16:38; Admin Dose 10 MG; Start 05/06/17 at 17:00 Carbidopa/Levodopa (Sinemet (25/ 100)) 1 tab TID GTB Last administered on 14:01; Admin Dose 1 TAB; Start 05/06/17 at 21:00 Clopidogrel Bisulfate (plaVIX) 75 mg DAILY GTB Last administered on 05/17/17 10:40; Admin Dose 75 MG; Start 05/07/17 at 09:00; Status Future Hold Donepezil HCl (Aricept) 10 mg QHS GTB Last administered on 05/19/17 21:00; Admin Dose 10 MG; Start 05/06/17 at 21:00 Ferrous Sulfate (Ferrous Sulfate (Ec)) 325 mg BID PO Last administered on 09:09; Admin Dose 325 MG; Start 05/06/17 at 21:00 Folic Acid (Folic Acid) 1 mg DAILY GTB Last administered on 05/22/17 09:09; Admin Dose 1 MG; Start 05/07/17 at 09:00 Lactobacillus Acidophilus/ Rhamnosus (Culturelle) 1 cap QHS GTB Last administered on 05/19/17 21:00; Admin Dose 1 CAP; Start 05/06/17 at 21:00 Magnesium Hydroxide (Milk Of Mag) 30 ml Q24H GTB Last administered on 05/22/17 16:38; Admin Dose 30 ML; Start 05/06/17 at 17:00 Memantine (Namenda) 5 mg QAM GTB Last administered on 05/22/17 09:10; Admin Dose 5 MG; Start 05/07/17 at 09:00 Metoprolol Tartrate (Lopressor) 25 mg Q12H GTB Last administered on 05/18/17 16:47; Admin Dose 25 MG; Start 05/06/17 at 17:00; Status Future Hold Multivit/Ca Carb/ B Cmplx/FA/Prenat (Radhika-John) 1 tab DAILY GTB Last administered on 05/22/17 09:09; Admin Dose 1 TAB; Start 05/07/17 at 09:00 Pramipexole (Mirapex) 0.5 mg DAILY GTB Last administered on 05/22/17 09:09; Admin Dose 0.5 MG; Start 05/07/17 at 09:00 Sodium Biphosphate/ Sodium Phosphate (Fleet Enema Pediatric) 118 ml Q72H PRN [place] CONSTIPATION; Start 05/06/17 at 17:00 Citric Acid/ Sodium Citrate (Bicitra) 30 ml BID PO Last administered on 09:09; Admin Dose 30 ML; Start 05/06/17 at 21:00 Nystatin (Nystatin Powder) 1 applic BID TOP Last administered on 05/27/17 09:54 ; Admin Dose 1 APPLIC; Start 05/09/17 at 21:00 Collagenase (Santyl) 1 applic DAILY TOP Last administered on 05/27/17 09:54; Admin Dose 1 APPLIC; Start 05/09/17 at 15:00 Collagenase 1 applic 1 applic PRN PRN TOP WOUND CARE; Start 05/09/17 at 14:00 Norepinephrine 16 mg/Dextrose 500 ml @ 1.87 mls/hr TITRATE IV ; Start 05/10/17 at 14:00 Dopamine HCl/ Dextrose 250 ml @ 6.848 mls/ hr TITRATE IV Last administered on 05/27/17 17:02; Admin Dose 20.543 MLS/HR; Start 05/10/17 at 18:30 Miscellaneous Information 1 ea NOTE XX ; Start 05/11/17 at 08:00 Glucose (Glutose) 15 gm Q15M PRN PO DECREASED GLUCOSE; Start 05/11/17 at 08:00 Glucose (Glutose) 22.5 gm Q15M PRN PO DECREASED GLUCOSE; Start 05/11/17 at 08: 00 Dextrose (D50w Syringe) 25 ml Q15M PRN IV DECREASED GLUCOSE Last administered on 05/26/17 21:15; Admin Dose 25 ML; Start 05/11/17 at 08:00 Dextrose (D50w Syringe) 50 ml Q15M PRN IV DECREASED GLUCOSE Last administered on 05/15/17 00:11; Admin Dose 50 ML; Start 05/11/17 at 08:00 Glucagon (Glucagen) 1 mg Q15M PRN IM DECREASED GLUCOSE; Start 05/11/17 at 08:00 Glucose (Glutose) 15 gm Q15M PRN BUCCAL DECREASED GLUCOSE; Start 05/11/17 at 08 :00 Epoetin Vasyl (Epogen (Esrd)) 10,000 units MoWeFr@17 SC Last administered on 05/27 17:07; Admin Dose 10,000 UNITS; Start 05/13/17 at 17:00 IV Flush (NS 10 ml) 10 ml PRN PRN IV IV PROTOCOL; Start 05/15/17 at 17:30 Pantoprazole 40 mg 40 mg BID@06,18 IV Last administered on 05/27/17 06:08; Admin Dose 40 MG; Start 05/16/17 at 10:00 Trimethoprim/ Sulfamethoxazole/ Dextrose (Bactrim/D5W) 260 ml @ 173.333 mls/hr Q8 IVPB Last administered on 05/27/17 14:36; Admin Dose 173.333 MLS/HR; Start 05/19/17 at 21:00 Amikacin Sulfate AMIKACIN PER PHARMACY NOTE XX ; Start 05/19/17 at 18:00 Cefepime HCl 0.5 gm/Sodium Chloride 100 ml @ 100 mls/hr Q24H IVPB Last administered on 05/26/17 20:12; Admin Dose 100 MLS/HR; Start 05/19/17 at 20:00 Amikacin Sulfate/ Sodium Chloride (Amikacin/NS) 101.4 ml @ 101.4 mls/ hr Q96H IVPB Last administered on 05/23/17 23:29; Admin Dose 101.4 MLS/HR; Start at 21:00 Midodrine (Proamatine) 10 mg TID@,,17 GTB ; Start 05/23/17 at 09:00 Heparin Sodium (Porcine) 5000 unit 5,000 unit BID SC Last administered on 09:53; Admin Dose 5,000 UNIT; Start 05/23/17 at 09:00 Dextrose/Sodium Chloride (D5-1/2ns) 1,000 ml @ 75 mls/hr [id number] IV Last administered on 05/26/17 06:29; Admin Dose 75 MLS/HR; Start 05/23/17 at 11:30; Status Future Hold Insulin Aspart NOVOLOG *MILD* ALGORI... Q4 SC Last administered on 05/27/17 04: 50; Admin Dose 1 UNIT; Start 05/26/17 at 09:00 Total Parenteral Nutrition (Tpn) 1,000 ml @ 40 mls/hr Q24H IV Last administered on 05/27/17 14:38; Admin Dose 40 MLS/HR; Start 05/27/17 at 14:00 SYLWIA SY MD May 27, 2017 17:58
--- NOTE | 2017-05-27 18:02 | CONS ---
Date/Time of Note Date/Time of Note DATE: 05/27/17 TIME: 18:01 Consult Date/Type/Reason Admit Date/Time May 06, 2017 at 16:34 Initial Consult Date 05/22/17 Type of Consultation: cardiology Subjective CARDIOLOGY FOLLOW UP NOTE: Discussed with staff and rhythm was reviewed pt remains in NSR. NO AFIB seen NONVERBAL. pt is still ICU on dopamine drip still unable to wean off so far. pt is on TPN now. OBJECTIVE: General: no acute distress. s/p trach on vent. HEENT: NC/AT. NECK: NO JVD. no stridor. S/P trach on vent CV: RRR. systolic murmur; no gallop or rubs. PULM: no wheezing anteriorly GI: SOFT, NT, ND, no rebound or guarding s/p dressing at the site of previous G tube Extremity: + B/L LE edema. no clubbing. neuro: opens her eyes to painful stimuli. does not follow commands Psych: calm rectal: deferred Objective Vital Signs Date Time Temp Pulse Resp B/P Pulse Ox O2 Delivery O2 Flow Rate FiO2 05/27/17 17:20 85 16 100 30 05/27/17 15:30 101/55 05/27/17 15:00 Mechanical Ventilator 05/27/17 12:00 97.4 Intake and Output 05/26/17 05/26/17 05/27/17 15:00 23:00 07:00 Intake Total 1141.728 ml 1200.198 ml 1803.14 ml Output Total 745 ml 600 ml 385 ml Balance 396.728 ml 600.198 ml 1418.14 ml Results/Medications Result Diagram: 05/26/17 0430 05/26/17 0430 Results 24 hrs Laboratory Tests Test 05/26/17 21:11 05/26/17 21:33 05/26/17 22:12 05/27/17 00:54 Bedside Glucose 65 L 111 95 Amikacin Level Trough Test 05/27/17 04:00 05/27/17 04:46 05/27/17 05:00 05/27/17 08:43 Lactic Acid Level 1.7 Bedside Glucose 167 Blood Gas Specimen Source Blood arterial Arterial Blood Date Drawn 05/27/2017 7:30:35 AM Arterial Blood pH (Temp corrected) 7.380 Arterial Blood pCO2 (Temp correct) 32.9 L Arterial Blood pO2 (Temp corrected) 85.5 Arterial Blood HCO3 19.0 L Arterial Blood Base Excess -5.3 L Arterial Blood Oxygen Saturation 96.0 Faustino Test ACCEPTAB Arterial Blood Gas Puncture Site Left Radial Arterial Blood Carboxyhemoglobin 0.5 Arterial Blood Methemoglobin 0.6 Blood Gas A-a O2 Differential 89.7 H Oxyhemoglobin Percent 94.9 Total Hemoglobin 11.3 L Blood Gas Temperature 37.0 Blood Gas Respiration Rate 16.0 Blood Gas Actual Respiration Rate 20 Blood Gas Modality VENT - AC FiO2 30.0 Blood Gas Tidal Volume 500.0 Blood Gas Low PEEP Setting 5.0 Blood Gas Notified Whom JLD Blood Gas Notified Time 05/27/2017 7:46:31 AM Lab Scanned Report REFERENCE LAB Test 05/27/17 09:49 05/27/17 13:07 05/27/17 17:08 Bedside Glucose 80 79 82 Medications Current Medications Atorvastatin Calcium (Lipitor) 10 mg QHS GTB Last administered on 05/19/17 21: 00; Admin Dose 10 MG; Start 05/06/17 at 21:00 Bisacodyl (Dulcolax Supp) 10 mg Q48H [place] Last administered on 05/22/17 16:38; Admin Dose 10 MG; Start 05/06/17 at 17:00 Carbidopa/Levodopa (Sinemet (25/ 100)) 1 tab TID GTB Last administered on 14:01; Admin Dose 1 TAB; Start 05/06/17 at 21:00 Clopidogrel Bisulfate (plaVIX) 75 mg DAILY GTB Last administered on 05/17/17 10:40; Admin Dose 75 MG; Start 05/07/17 at 09:00; Status Future Hold Donepezil HCl (Aricept) 10 mg QHS GTB Last administered on 05/19/17 21:00; Admin Dose 10 MG; Start 05/06/17 at 21:00 Ferrous Sulfate (Ferrous Sulfate (Ec)) 325 mg BID PO Last administered on 09:09; Admin Dose 325 MG; Start 05/06/17 at 21:00 Folic Acid (Folic Acid) 1 mg DAILY GTB Last administered on 05/22/17 09:09; Admin Dose 1 MG; Start 05/07/17 at 09:00 Lactobacillus Acidophilus/ Rhamnosus (Culturelle) 1 cap QHS GTB Last administered on 05/19/17 21:00; Admin Dose 1 CAP; Start 05/06/17 at 21:00 Magnesium Hydroxide (Milk Of Mag) 30 ml Q24H GTB Last administered on 05/22/17 16:38; Admin Dose 30 ML; Start 05/06/17 at 17:00 Memantine (Namenda) 5 mg QAM GTB Last administered on 05/22/17 09:10; Admin Dose 5 MG; Start 05/07/17 at 09:00 Metoprolol Tartrate (Lopressor) 25 mg Q12H GTB Last administered on 05/18/17 16:47; Admin Dose 25 MG; Start 05/06/17 at 17:00; Status Future Hold Multivit/Ca Carb/ B Cmplx/FA/Prenat (Radhika-John) 1 tab DAILY GTB Last administered on 05/22/17 09:09; Admin Dose 1 TAB; Start 05/07/17 at 09:00 Pramipexole (Mirapex) 0.5 mg DAILY GTB Last administered on 05/22/17 09:09; Admin Dose 0.5 MG; Start 05/07/17 at 09:00 Sodium Biphosphate/ Sodium Phosphate (Fleet Enema Pediatric) 118 ml Q72H PRN [place] CONSTIPATION; Start 05/06/17 at 17:00 Citric Acid/ Sodium Citrate (Bicitra) 30 ml BID PO Last administered on 09:09; Admin Dose 30 ML; Start 05/06/17 at 21:00 Nystatin (Nystatin Powder) 1 applic BID TOP Last administered on 05/27/17 09:54 ; Admin Dose 1 APPLIC; Start 05/09/17 at 21:00 Collagenase (Santyl) 1 applic DAILY TOP Last administered on 05/27/17 09:54; Admin Dose 1 APPLIC; Start 05/09/17 at 15:00 Collagenase 1 applic 1 applic PRN PRN TOP WOUND CARE; Start 05/09/17 at 14:00 Norepinephrine 16 mg/Dextrose 500 ml @ 1.87 mls/hr TITRATE IV ; Start 05/10/17 at 14:00 Dopamine HCl/ Dextrose 250 ml @ 6.848 mls/ hr TITRATE IV Last administered on 05/27/17 17:02; Admin Dose 20.543 MLS/HR; Start 05/10/17 at 18:30 Miscellaneous Information 1 ea NOTE XX ; Start 05/11/17 at 08:00 Glucose (Glutose) 15 gm Q15M PRN PO DECREASED GLUCOSE; Start 05/11/17 at 08:00 Glucose (Glutose) 22.5 gm Q15M PRN PO DECREASED GLUCOSE; Start 05/11/17 at 08: 00 Dextrose (D50w Syringe) 25 ml Q15M PRN IV DECREASED GLUCOSE Last administered on 05/26/17 21:15; Admin Dose 25 ML; Start 05/11/17 at 08:00 Dextrose (D50w Syringe) 50 ml Q15M PRN IV DECREASED GLUCOSE Last administered on 05/15/17 00:11; Admin Dose 50 ML; Start 05/11/17 at 08:00 Glucagon (Glucagen) 1 mg Q15M PRN IM DECREASED GLUCOSE; Start 05/11/17 at 08:00 Glucose (Glutose) 15 gm Q15M PRN BUCCAL DECREASED GLUCOSE; Start 05/11/17 at 08 :00 Epoetin Vasyl (Epogen (Esrd)) 10,000 units MoWeFr@17 SC Last administered on 05/27 17:07; Admin Dose 10,000 UNITS; Start 05/13/17 at 17:00 IV Flush (NS 10 ml) 10 ml PRN PRN IV IV PROTOCOL; Start 05/15/17 at 17:30 Pantoprazole 40 mg 40 mg BID@06,18 IV Last administered on 05/27/17 06:08; Admin Dose 40 MG; Start 05/16/17 at 10:00 Trimethoprim/ Sulfamethoxazole/ Dextrose (Bactrim/D5W) 260 ml @ 173.333 mls/hr Q8 IVPB Last administered on 05/27/17 14:36; Admin Dose 173.333 MLS/HR; Start 05/19/17 at 21:00 Amikacin Sulfate AMIKACIN PER PHARMACY NOTE XX ; Start 05/19/17 at 18:00 Cefepime HCl 0.5 gm/Sodium Chloride 100 ml @ 100 mls/hr Q24H IVPB Last administered on 05/26/17 20:12; Admin Dose 100 MLS/HR; Start 7/30/17 at 20:00 Amikacin Sulfate/ Sodium Chloride (Amikacin/NS) 101.4 ml @ 101.4 mls/ hr Q96H IVPB Last administered on 05/23/17 23:29; Admin Dose 101.4 MLS/HR; Start at 21:00 Midodrine (Proamatine) 10 mg TID@09,13,17 GTB ; Start 05/23/17 at 09:00 Heparin Sodium (Porcine) 5000 unit 5,000 unit BID SC Last administered on 09:53; Admin Dose 5,000 UNIT; Start 05/23/17 at 09:00 Dextrose/Sodium Chloride (D5-1/2ns) 1,000 ml @ 75 mls/hr [id number] IV Last administered on 05/26/17 06:29; Admin Dose 75 MLS/HR; Start 05/23/17 at 11:30; Status Future Hold Insulin Aspart NOVOLOG *MILD* ALGORI... Q4 SC Last administered on 05/27/17 04: 50; Admin Dose 1 UNIT; Start 05/26/17 at 09:00 Total Parenteral Nutrition (Tpn) 1,000 ml @ 40 mls/hr Q24H IV Last administered on 05/27/17 14:38; Admin Dose 40 MLS/HR; Start 05/27/17 at 14:00 Assessment/Plan Chief Complaint/Hosp Course 1. hypoxemic resp failure: s/p trach 2. Pafib; currently in NSR 3. hx HTN: now in shock and hypotensive. : STILL requires DOPAMINE DRIP 4. encephalopathy 5. renal failure: f/u with nephrology 6. dysphagia 7. G tube malfunction/ infection 8. GI bleed 9. severe anemia 10. malnutrition will cont dopamine drip and titrate off once BP remains stable. cont resp care nutritional support. CONT ICU care as long as pt is on pressors correct lytes prn off of PLAVIX DUE TO ANEMIA/ BLEEDING still awaiting surgery for PEG replacement nutritional support. THANK YOU. Problems: MILAGROS MUNOZ MD May 27, 2017 18:02
--- NOTE | 2017-05-27 18:29 | CONS ---
Date/Time of Note Date/Time of Note DATE: 05/27/17 TIME: 18:27 Assessment/Plan Assessment/Plan Chief Complaint/Hosp Course This 69-year-old female with a history of CVA vent dependent respiratory failure , was brought to the emergency room for the dislodgment of the GJ tube. Patient is nonverbal and no information can be obtained. No GI bleeding no chest pain no shortness of breath. Problems: Additional Assessment/Plan Additional Assessment/Plan 1. Dislodged of the GJ tube accidentally 2. Vent dependent respiratory failure 3. Chronic encephalopathy 4. Renal failure 5. Peripheral vascular disease 6. Anemia 7. Large gastrocutaneous fistula, endoscopically it is not possible to keep the largest diameter GJ tube in place 8. Hypotension needs dopamine to maintain the blood pressure Plan Case discussed with Dr. Blackburn and told him to proceed with jejunostomy tube. Continue all supportive care patient needs surgical repair of gastrocutaneous fistula and possible new jejunostomy tube This progress notes was 4 05/26/2017 Consultation Date/Type/Reason Admit Date/Time May 06, 2017 at 16:34 Type of Consultation: cardiology 24 HR Interval Summary Subjective hx not possible: pt non-verbal, pt critical Exam/Review of Systems Vital Signs Vitals Vital Signs Date Time Temp Pulse Resp B/P Pulse Ox O2 Delivery O2 Flow Rate FiO2 05/27/17 17:20 85 16 100 30 05/27/17 15:30 101/55 05/27/17 15:00 Mechanical Ventilator 05/27/17 12:00 97.4 Intake and Output 05/26/17 05/26/17 05/27/17 15:00 23:00 07:00 Intake Total 1141.728 ml 1200.198 ml 1803.14 ml Output Total 745 ml 600 ml 385 ml Balance 396.728 ml 600.198 ml 1418.14 ml Exam Respiratory: other (Patient is on vent) Gastrointestinal: nl liver, spleen, non-tender, soft Extremities: normal pulses Neurological: unresponsive Results Result Diagram: 05/26/17 0430 05/26/17 0430 Results 24 hrs Laboratory Tests Test 05/26/17 21:11 05/26/17 21:33 05/26/17 22:12 05/27/17 00:54 Bedside Glucose 65 L 111 95 Amikacin Level Trough Test 05/27/17 04:00 05/27/17 04:46 05/27/17 05:00 05/27/17 08:43 Lactic Acid Level 1.7 Bedside Glucose 167 Blood Gas Specimen Source Blood arterial Arterial Blood Date Drawn 05/27/2017 7:30:35 AM Arterial Blood pH (Temp corrected) 7.380 Arterial Blood pCO2 (Temp correct) 32.9 L Arterial Blood pO2 (Temp corrected) 85.5 Arterial Blood HCO3 19.0 L Arterial Blood Base Excess -5.3 L Arterial Blood Oxygen Saturation 96.0 Faustino Test ACCEPTAB Arterial Blood Gas Puncture Site Left Radial Arterial Blood Carboxyhemoglobin 0.5 Arterial Blood Methemoglobin 0.6 Blood Gas A-a O2 Differential 89.7 H Oxyhemoglobin Percent 94.9 Total Hemoglobin 11.3 L Blood Gas Temperature 37.0 Blood Gas Respiration Rate 16.0 Blood Gas Actual Respiration Rate 20 Blood Gas Modality VENT - AC FiO2 30.0 Blood Gas Tidal Volume 500.0 Blood Gas Low PEEP Setting 5.0 Blood Gas Notified Whom JLD Blood Gas Notified Time 05/27/2017 7:46:31 AM Lab Scanned Report REFERENCE LAB Test 05/27/17 09:49 05/27/17 13:07 05/27/17 17:08 Bedside Glucose 80 79 82 Medications Medications Current Medications Atorvastatin Calcium (Lipitor) 10 mg QHS GTB Last administered on 05/19/17 21: 00; Admin Dose 10 MG; Start 05/06/17 at 21:00 Bisacodyl (Dulcolax Supp) 10 mg Q48H [place] Last administered on 05/22/17 16:38; Admin Dose 10 MG; Start 05/06/17 at 17:00 Carbidopa/Levodopa (Sinemet (25/ 100)) 1 tab TID GTB Last administered on 14:01; Admin Dose 1 TAB; Start 05/06/17 at 21:00 Clopidogrel Bisulfate (plaVIX) 75 mg DAILY GTB Last administered on 05/17/17 10:40; Admin Dose 75 MG; Start 05/07/17 at 09:00; Status Future Hold Donepezil HCl (Aricept) 10 mg QHS GTB Last administered on 05/19/17 21:00; Admin Dose 10 MG; Start 05/06/17 at 21:00 Ferrous Sulfate (Ferrous Sulfate (Ec)) 325 mg BID PO Last administered on 09:09; Admin Dose 325 MG; Start 05/06/17 at 21:00 Folic Acid (Folic Acid) 1 mg DAILY GTB Last administered on 05/22/17 09:09; Admin Dose 1 MG; Start 05/07/17 at 09:00 Lactobacillus Acidophilus/ Rhamnosus (Culturelle) 1 cap QHS GTB Last administered on 05/19/17 21:00; Admin Dose 1 CAP; Start 05/06/17 at 21:00 Magnesium Hydroxide (Milk Of Mag) 30 ml Q24H GTB Last administered on 05/22/17 16:38; Admin Dose 30 ML; Start 05/06/17 at 17:00 Memantine (Namenda) 5 mg QAM GTB Last administered on 05/22/17 09:10; Admin Dose 5 MG; Start 05/07/17 at 09:00 Metoprolol Tartrate (Lopressor) 25 mg Q12H GTB Last administered on 05/18/17 16:47; Admin Dose 25 MG; Start 05/06/17 at 17:00; Status Future Hold Multivit/Ca Carb/ B Cmplx/FA/Prenat (Radhika-John) 1 tab DAILY GTB Last administered on 05/22/17 09:09; Admin Dose 1 TAB; Start 05/07/17 at 09:00 Pramipexole (Mirapex) 0.5 mg DAILY GTB Last administered on 05/22/17 09:09; Admin Dose 0.5 MG; Start 05/07/17 at 09:00 Sodium Biphosphate/ Sodium Phosphate (Fleet Enema Pediatric) 118 ml Q72H PRN [place] CONSTIPATION; Start 05/06/17 at 17:00 Citric Acid/ Sodium Citrate (Bicitra) 30 ml BID PO Last administered on 09:09; Admin Dose 30 ML; Start 05/06/17 at 21:00 Nystatin (Nystatin Powder) 1 applic BID TOP Last administered on 05/27/17 09:54 ; Admin Dose 1 APPLIC; Start 05/09/17 at 21:00 Collagenase (Santyl) 1 applic DAILY TOP Last administered on 05/27/17 09:54; Admin Dose 1 APPLIC; Start 05/09/17 at 15:00 Collagenase 1 applic 1 applic PRN PRN TOP WOUND CARE; Start 05/09/17 at 14:00 Norepinephrine 16 mg/Dextrose 500 ml @ 1.87 mls/hr TITRATE IV ; Start 05/10/17 at 14:00 Dopamine HCl/ Dextrose 250 ml @ 6.848 mls/ hr TITRATE IV Last administered on 05/27/17 17:02; Admin Dose 20.543 MLS/HR; Start 05/10/17 at 18:30 Miscellaneous Information 1 ea NOTE XX ; Start 05/11/17 at 08:00 Glucose (Glutose) 15 gm Q15M PRN PO DECREASED GLUCOSE; Start 05/11/17 at 08:00 Glucose (Glutose) 22.5 gm Q15M PRN PO DECREASED GLUCOSE; Start 05/11/17 at 08: 00 Dextrose (D50w Syringe) 25 ml Q15M PRN IV DECREASED GLUCOSE Last administered on 05/26/17 21:15; Admin Dose 25 ML; Start 05/11/17 at 08:00 Dextrose (D50w Syringe) 50 ml Q15M PRN IV DECREASED GLUCOSE Last administered on 05/15/17 00:11; Admin Dose 50 ML; Start 05/11/17 at 08:00 Glucagon (Glucagen) 1 mg Q15M PRN IM DECREASED GLUCOSE; Start 05/11/17 at 08:00 Glucose (Glutose) 15 gm Q15M PRN BUCCAL DECREASED GLUCOSE; Start 05/11/17 at 08 :00 Epoetin Vasyl (Epogen (Esrd)) 10,000 units MoWeFr@17 SC Last administered on 05/27 17:07; Admin Dose 10,000 UNITS; Start 05/13/17 at 17:00 IV Flush (NS 10 ml) 10 ml PRN PRN IV IV PROTOCOL; Start 05/15/17 at 17:30 Pantoprazole 40 mg 40 mg BID@06,18 IV Last administered on 05/27/17 06:08; Admin Dose 40 MG; Start 05/16/17 at 10:00 Trimethoprim/ Sulfamethoxazole/ Dextrose (Bactrim/D5W) 260 ml @ 173.333 mls/hr Q8 IVPB Last administered on 05/27/17 14:36; Admin Dose 173.333 MLS/HR; Start 05/19/17 at 21:00 Amikacin Sulfate AMIKACIN PER PHARMACY NOTE XX ; Start 05/19/17 at 18:00 Cefepime HCl 0.5 gm/Sodium Chloride 100 ml @ 100 mls/hr Q24H IVPB Last administered on 05/26/17 20:12; Admin Dose 100 MLS/HR; Start 05/19/17 at 20:00 Amikacin Sulfate/ Sodium Chloride (Amikacin/NS) 101.4 ml @ 101.4 mls/ hr Q96H IVPB Last administered on 05/23/17 23:29; Admin Dose 101.4 MLS/HR; Start at 21:00 Midodrine (Proamatine) 10 mg TID@,,17 GTB ; Start 05/23/17 at 09:00 Heparin Sodium (Porcine) 5000 unit 5,000 unit BID SC Last administered on 09:53; Admin Dose 5,000 UNIT; Start 05/23/17 at 09:00 Dextrose/Sodium Chloride (D5-1/2ns) 1,000 ml @ 75 mls/hr [id number] IV Last administered on 05/26/17 06:29; Admin Dose 75 MLS/HR; Start 05/23/17 at 11:30; Status Future Hold Insulin Aspart NOVOLOG *MILD* ALGORI... Q4 SC Last administered on 05/27/17 04: 50; Admin Dose 1 UNIT; Start 05/26/17 at 09:00 Total Parenteral Nutrition (Tpn) 1,000 ml @ 40 mls/hr Q24H IV Last administered on 05/27/17 14:38; Admin Dose 40 MLS/HR; Start 05/27/17 at 14:00 SYLWIA SY MD May 27, 2017 18:29
[2017-05-27] MEDS: DONEPEZIL 10 MG TAB GTB SCH (21:00)
[2017-05-27] MEDS: ATORVASTATIN 10 MG TAB GTB SCH (21:00)
[2017-05-27] MEDS: LACTOBACILLUS RHAMNOSUS CAP GTB SCH (21:00)
--- NOTE | 2017-05-27 21:55 | CONS ---
Date/Time of Note Date/Time of Note DATE: 05/27/17 TIME: 21:51 Assessment/Plan Assessment/Plan Chief Complaint/Hosp Course ID PROGRESS NOTE CURRENT ABX DAY => Cefepime #9 + Amikacin #9 + Bactrim IV #9 TOTAL ABX DAY # 18 Colistin INH #10 -> DC 8/6 Merrem#10 => DC 7/30 Vanco IV #10 => DC 7/30 24H INTERVAL SUMMARY * Right arm PICC line removed -> Remains on pressors, no fevers, WBC normal PHYSICAL EXAMINATION: GENERAL: VSS,NAD, no fevers == Obese, eyes open HEENT: NGT->Secure / ETT secure NECK: Supple, trach-> midline CHEST: Equal chest rise bilaterally, Vented HEART: Pulse RRR ABDOMEN: Soft -> see photos large EC fistula residual healing scar, cellulitis w/(+)drainage EXTREMITIES: Warm, no edema SKIN: Warm, dry ID ASSESSMENT: 86 yo F w/PMHx Obesity,Parkinson's dementia w/chronic encephalopathy admitted with: 1. Sepsis w/shock, hypothermia, leukocytosis, lactic acidosis => multifactorial as below * 05/07/17 BCx (-) 2. Acute on chronic respiratory failure w/Trach 3. HCAP => Tracheobronchitis * CT (+)Large right pleural effusion/small left effusion * Respiratory Cx 05/14: * Organism 1 PSEUDOMONAS AERUGINOSA QUANTITY 3+ Organism 2 STENOTROPHOMONAS MALTOPHILIA QUANTITY 3+ 4. 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 5. UTI as per urinalysis on admission => urine was not sent for culture 6. Multiple chronic decub ulcers 7. RASH on admission s/p empiric Elimite x1 w/(-)skin scraping for scabies 8. Acute kidney injury 9. Diabetes. 10. Acute on chronic anemia. 11. 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 Completing ABX course for GNR MDRO PNA + ABD noah-stoma, cellulitis 2. GI PLAN: Large gastrocutaneous fistula, endoscopically it is not possible given to keep the largest diameter GJ tube in place=> proceed to placement of JT . . . Problems: Consultation Date/Type/Reason Admit Date/Time May 06, 2017 at 16:34 Initial Consult Date 05/12/17 Type of Consultation: id Exam/Review of Systems Vital Signs Vitals Vital Signs Date Time Temp Pulse Resp B/P Pulse Ox O2 Delivery O2 Flow Rate FiO2 05/27/17 21:10 87 17 100 30 05/27/17 20:15 97/55 05/27/17 20:00 97.8 Mechanical Ventilator Intake and Output 05/26/17 05/26/17 05/27/17 15:00 23:00 07:00 Intake Total 1141.728 ml 1200.198 ml 1803.14 ml Output Total 745 ml 600 ml 465 ml Balance 396.728 ml 600.198 ml 1338.14 ml Results Result Diagram: 05/26/17 0430 05/26/17 0430 Results 24 hrs Laboratory Tests Test 05/26/17 22:12 05/27/17 00:54 05/27/17 04:00 05/27/17 04:46 Amikacin Level Trough Bedside Glucose 95 167 Lactic Acid Level 1.7 Test 05/27/17 05:00 05/27/17 08:43 05/27/17 09:49 05/27/17 13:07 Blood Gas Specimen Source Blood arterial Arterial Blood Date Drawn 05/27/2017 7:30:35 AM Arterial Blood pH (Temp corrected) 7.380 Arterial Blood pCO2 (Temp correct) 32.9 L Arterial Blood pO2 (Temp corrected) 85.5 Arterial Blood HCO3 19.0 L Arterial Blood Base Excess -5.3 L Arterial Blood Oxygen Saturation 96.0 Faustino Test ACCEPTAB Arterial Blood Gas Puncture Site Left Radial Arterial Blood Carboxyhemoglobin 0.5 Arterial Blood Methemoglobin 0.6 Blood Gas A-a O2 Differential 89.7 H Oxyhemoglobin Percent 94.9 Total Hemoglobin 11.3 L Blood Gas Temperature 37.0 Blood Gas Respiration Rate 16.0 Blood Gas Actual Respiration Rate 20 Blood Gas Modality VENT - AC FiO2 30.0 Blood Gas Tidal Volume 500.0 Blood Gas Low PEEP Setting 5.0 Blood Gas Notified Whom JLD Blood Gas Notified Time 05/27/2017 7:46:31 AM Lab Scanned Report REFERENCE LAB Bedside Glucose 80 79 Test 05/27/17 17:08 Bedside Glucose 82 Medications Medications Current Medications Atorvastatin Calcium (Lipitor) 10 mg QHS GTB Last administered on 05/19/17 21: 00; Admin Dose 10 MG; Start 05/06/17 at 21:00 Bisacodyl (Dulcolax Supp) 10 mg Q48H [place] Last administered on 05/22/17 16:38; Admin Dose 10 MG; Start 05/06/17 at 17:00 Carbidopa/Levodopa (Sinemet (25/ 100)) 1 tab TID GTB Last administered on 14:01; Admin Dose 1 TAB; Start 05/06/17 at 21:00 Clopidogrel Bisulfate (plaVIX) 75 mg DAILY GTB Last administered on 05/17/17 10:40; Admin Dose 75 MG; Start 05/07/17 at 09:00; Status Future Hold Donepezil HCl (Aricept) 10 mg QHS GTB Last administered on 05/19/17 21:00; Admin Dose 10 MG; Start 05/06/17 at 21:00 Ferrous Sulfate (Ferrous Sulfate (Ec)) 325 mg BID PO Last administered on 09:09; Admin Dose 325 MG; Start 05/06/17 at 21:00 Folic Acid (Folic Acid) 1 mg DAILY GTB Last administered on 05/22/17 09:09; Admin Dose 1 MG; Start 05/07/17 at 09:00 Lactobacillus Acidophilus/ Rhamnosus (Culturelle) 1 cap QHS GTB Last administered on 05/19/17 21:00; Admin Dose 1 CAP; Start 05/06/17 at 21:00 Magnesium Hydroxide (Milk Of Mag) 30 ml Q24H GTB Last administered on 05/22/17 16:38; Admin Dose 30 ML; Start 05/06/17 at 17:00 Memantine (Namenda) 5 mg QAM GTB Last administered on 05/22/17 09:10; Admin Dose 5 MG; Start 05/07/17 at 09:00 Metoprolol Tartrate (Lopressor) 25 mg Q12H GTB Last administered on 05/18/17 16:47; Admin Dose 25 MG; Start 05/06/17 at 17:00; Status Future Hold Multivit/Ca Carb/ B Cmplx/FA/Prenat (Radhika-John) 1 tab DAILY GTB Last administered on 05/22/17 09:09; Admin Dose 1 TAB; Start 05/07/17 at 09:00 Pramipexole (Mirapex) 0.5 mg DAILY GTB Last administered on 05/22/17 09:09; Admin Dose 0.5 MG; Start 05/07/17 at 09:00 Sodium Biphosphate/ Sodium Phosphate (Fleet Enema Pediatric) 118 ml Q72H PRN [place] CONSTIPATION; Start 05/06/17 at 17:00 Citric Acid/ Sodium Citrate (Bicitra) 30 ml BID PO Last administered on 09:09; Admin Dose 30 ML; Start 05/06/17 at 21:00 Nystatin (Nystatin Powder) 1 applic BID TOP Last administered on 05/27/17 09:54 ; Admin Dose 1 APPLIC; Start 05/09/17 at 21:00 Collagenase (Santyl) 1 applic DAILY TOP Last administered on 05/27/17 09:54; Admin Dose 1 APPLIC; Start 05/09/17 at 15:00 Collagenase 1 applic 1 applic PRN PRN TOP WOUND CARE; Start 05/09/17 at 14:00 Norepinephrine 16 mg/Dextrose 500 ml @ 1.87 mls/hr TITRATE IV ; Start 05/10/17 at 14:00 Dopamine HCl/ Dextrose 250 ml @ 6.848 mls/ hr TITRATE IV Last administered on 05/27/17 17:02; Admin Dose 20.543 MLS/HR; Start 05/10/17 at 18:30 Miscellaneous Information 1 ea NOTE XX ; Start 05/11/17 at 08:00 Glucose (Glutose) 15 gm Q15M PRN PO DECREASED GLUCOSE; Start 05/11/17 at 08:00 Glucose (Glutose) 22.5 gm Q15M PRN PO DECREASED GLUCOSE; Start 05/11/17 at 08: 00 Dextrose (D50w Syringe) 25 ml Q15M PRN IV DECREASED GLUCOSE Last administered on 05/26/17 21:15; Admin Dose 25 ML; Start 05/11/17 at 08:00 Dextrose (D50w Syringe) 50 ml Q15M PRN IV DECREASED GLUCOSE Last administered on 05/15/17 00:11; Admin Dose 50 ML; Start 05/11/17 at 08:00 Glucagon (Glucagen) 1 mg Q15M PRN IM DECREASED GLUCOSE; Start 05/11/17 at 08:00 Glucose (Glutose) 15 gm Q15M PRN BUCCAL DECREASED GLUCOSE; Start 05/11/17 at 08 :00 Epoetin Vasyl (Epogen (Esrd)) 10,000 units MoWeFr@17 SC Last administered on 05/27 17:07; Admin Dose 10,000 UNITS; Start 05/13/17 at 17:00 IV Flush (NS 10 ml) 10 ml PRN PRN IV IV PROTOCOL; Start 05/15/17 at 17:30 Pantoprazole 40 mg 40 mg BID@06,18 IV Last administered on 05/27/17 18:28; Admin Dose 40 MG; Start 05/16/17 at 10:00 Trimethoprim/ Sulfamethoxazole/ Dextrose (Bactrim/D5W) 260 ml @ 173.333 mls/hr Q8 IVPB Last administered on 05/27/17 14:36; Admin Dose 173.333 MLS/HR; Start 05/19/17 at 21:00 Amikacin Sulfate AMIKACIN PER PHARMACY NOTE XX ; Start 05/19/17 at 18:00 Cefepime HCl 0.5 gm/Sodium Chloride 100 ml @ 100 mls/hr Q24H IVPB Last administered on 05/26/17 20:12; Admin Dose 100 MLS/HR; Start 05/19/17 at 20:00 Amikacin Sulfate/ Sodium Chloride (Amikacin/NS) 101.4 ml @ 101.4 mls/ hr Q96H IVPB Last administered on 05/23/17 23:29; Admin Dose 101.4 MLS/HR; Start at 21:00 Midodrine (Proamatine) 10 mg TID@,, GTB ; Start 05/23/17 at 09:00 Heparin Sodium (Porcine) 5000 unit 5,000 unit BID SC Last administered on 09:53; Admin Dose 5,000 UNIT; Start 05/23/17 at 09:00 Dextrose/Sodium Chloride (D5-1/2ns) 1,000 ml @ 75 mls/hr [id number] IV Last administered on 05/26/17 06:29; Admin Dose 75 MLS/HR; Start 05/23/17 at 11:30; Status Future Hold Insulin Aspart NOVOLOG *MILD* ALGORI... Q4 SC Last administered on 05/27/17 04: 50; Admin Dose 1 UNIT; Start 05/26/17 at 09:00 Total Parenteral Nutrition (Tpn) 1,000 ml @ 40 mls/hr Q24H IV Last administered on 05/27/17 14:38; Admin Dose 40 MLS/HR; Start 05/27/17 at 14:00 SYLVIA PADRON NP May 27, 2017 21:55
[2017-05-27] MEDS: CEFEPIME HCL 0.5 GM in SOD CHLORIDE 0.9% 100 ML IVPB SCH (21:59)
[2017-05-27] MEDS: AMIKACIN 350 MG in SOD CHLORIDE 0.9% 100 ML IVPB SCH (22:04)
[2017-05-28] VITALS (101 sets, daily range): BP systolic 75–133; BP diastolic 36–72; PULSE 77–91; RESP 15–23
[2017-05-28] MEDS: DEXTROSE 50% 50 ML SYRINGE IV PRN (00:53)
[2017-05-28] MEDS: INSULIN ASPART [NOVOLOG] 3 ML PEN SC SCH ×6 (00:56→21:00)
[2017-05-28 05:37] LABS: BASOPHILS % 0.6 % (0.0-2.0); EOSINOPHILS # 0.9 10^3/ul (0.0-0.5); EOSINOPHILS % 17.3 % (0.0-7.0); HEMATOCRIT 29.8 % (37.0-47.0); HEMOGLOBIN 9.8 g/dl (12.0-16.0); LYMPHOCYTES # 1.1 10^3/ul (0.8-2.9); MEAN CORPUSCULAR HEMOGLOBIN 29.8 pg (29.0-33.0); MEAN CORPUSCULAR HGB CONC 32.9 g/dl (32.0-37.0); MEAN CORPUSCULAR VOLUME 90.6 fl (82.0-101.0); MEAN PLATELET VOLUME 9.9 fl (7.4-10.4); MONOCYTE # 0.4 10^3/ul (0.3-0.9); MONOCYTES % 7.5 % (0.0-11.0); NEUTROPHIL # 2.7 10^3/ul (1.6-7.5); NEUTROPHILS % 53.4 % (39.0-77.0); PLATELET COUNT 169 10^3/UL (140-415); RED BLOOD COUNT 3.29 10^6/ul (4.20-5.40); RED CELL DISTRIBUTION WIDTH 16.9 % (11.5-14.5)
[2017-05-28] MEDS: PANTOPRAZOLE 40 MG INJ IV SCH (05:37)
[2017-05-28 06:02] LABS: ALBUMIN 2.1 g/dl (3.3-4.9); ALBUMIN/GLOBULIN RATIO 0.5; CALCIUM 8.3 mg/dl (8.4-10.2); CREATININE 2.01 mg/dl (0.44-1.00); POTASSIUM 3.7 mmol/L (3.5-5.1); TOTAL PROTEIN 6.3 g/dl (6.1-8.1)
[2017-05-28 06:09] LABS: PREALBUMIN 4.2 mg/dl (17.6-36.0)
[2017-05-28 06:17] LABS: PHOSPHORUS 4.4 mg/dl (2.5-4.9)
[2017-05-28] MEDS: TRIMETHOPRIM/SULFAMETHOXAZOLE 10 ML in DEXTROSE 5% 250 ML IVPB SCH ×3 (06:34→22:30)
[2017-05-28] MEDS: DOPamine-D5W 1.6 MG/ML 250 ML IV SCH ×2 (06:35→19:00)
--- NOTE | 2017-05-28 08:45 | PN ---
DATE: 05/28/2017 SUBJECTIVE DATA: the patient remains critical, on presser support. Yesterday evening I spoke with the patient's son, Raymundo, informing him of his mother's condition and her poor prognosis. Raymundo understood. We also discussed code status. Raymundo changed the code status to chemical code where we would continue aggressive care but no chest compressions, no shock. Raymundo also expressed his desire to continue aggressive care and is hopeful that an eventual feeding tube can be placed as well as improvement in his mom's underlying sepsis. Overnight no other acute events noted. No hemoptysis, hematemesis, hematochezia. OBJECTIVE DATA: VITAL SIGNS: Blood pressure 99/53, respirations 19, pulse 79, temperature 98.6. HEENT: Head is normocephalic. NECK: Supple. HEART: Regular rate. LUNGS: Diminished breath sounds at the base. ABDOMEN: Soft. No rebound or guarding. Positive ostomy bag over her ostomy site. Noted gastrocutaneous fistula. DERMATOLOGIC: No rashes. MUSCULOSKELETAL: Positive contractures. EXTREMITIES: Positive edema. NEUROLOGIC: No change in exam. ASSESSMENT AND PLAN: 1. Septic shock. Etiology is multifactorial secondary to pneumonia, possible cellulitis. The patient is completing an antibiotic course. Appreciate follow up with Infectious Disease. Continue current treatment plan with IV antibiotics. Continue pressor support. Continue hydration. 2. Anemia. Continue to monitor hemoglobin and hematocrit levels. The patient is status post blood transfusion. Continue Epogen. 3. Gastrocutaneous fistula. The patient is pending surgical placement of a jejunal tube. Appreciate General Surgery and Gastroenterology evaluations. 4. Ventilatory-dependent respiratory failure. Ventilator settings reviewed. Arterial blood gases reviewed. Continue to monitor. Follow up with Pulmonary. 5. Nonoliguric acute kidney injury on top of chronic kidney disease, stage 4. Etiology secondary to hemodynamics. Will continue current treatment plan, supportive care, and renally dose all medications. Avoid nephrotoxins. 6. Encephalopathy acute on top of advanced dementia. Etiology toxic metabolic. Continue to monitor. 7. Mineral bone disorder. Continue to monitor calcium and phosphorus levels. 8. Coronary artery disease. Continue current treatment plan. 9. Diabetes. Continue Accu-Cheks and insulin sliding scale. 10. Decubitus wound. Continue wound care. 11. Gastrointestinal and deep venous thrombosis prophylaxis. Continue proton-pump inhibitor and heparin. 12. Nutrition. Patient is on total parenteral nutrition. DISPOSITION: The patient has an overall profile poor prognosis. Code status was changed to chemical code. Please note, I discussed the case with the patient's son. Please note, I spent over 35 minutes of critical care time with this patient. Dictated By: Brendan Rosas DO /[email or web address]/lloyd /Document#: [id number]
[2017-05-28] MEDS: CARBIDOPA/LEVODOPA (25/100) TAB GTB SCH ×3 (09:00→20:54)
[2017-05-28] MEDS: MULTIVIT/CA CARB/B CMPLX/FA TAB GTB SCH (09:00)
[2017-05-28] MEDS: MIDODRINE 5 MG TAB GTB SCH ×3 (09:00→16:07)
[2017-05-28] MEDS: PRAMIPEXOLE 0.25 MG TAB GTB SCH (09:00)
[2017-05-28] MEDS: FOLIC ACID 1 MG TAB GTB SCH (09:00)
[2017-05-28] MEDS: MEMANTINE 5 MG TAB GTB SCH (09:00)
[2017-05-28] MEDS: CITRIC ACID/NA CITRATE 30 ML CUP PO SCH ×2 (09:00→20:54)
[2017-05-28] MEDS: FERROUS SULFATE (EC) 325 MG TAB PO SCH ×2 (09:00→20:54)
[2017-05-28] MEDS: COLLAGENASE 30 GM TUBE TOP SCH (09:32)
[2017-05-28] MEDS: NYSTATIN 30 GM POWDER BTL TOP SCH ×2 (09:32→21:05)
[2017-05-28] MEDS: FAT EMULSION 20% 250 ML IV SCH (09:33)
[2017-05-28] MEDS: HEPARIN 5,000 UNIT/0.5 ML VIAL SC SCH ×2 (09:35→21:15)
--- NOTE | 2017-05-28 11:50 | CONS ---
Date/Time of Note Date/Time of Note DATE: 05/28/17 TIME: 11:49 Assessment/Plan Assessment/Plan Chief Complaint/Hosp Course This 69-year-old female with a history of CVA vent dependent respiratory failure , was brought to the emergency room for the dislodgment of the GJ tube. Patient is nonverbal and no information can be obtained. No GI bleeding no chest pain no shortness of breath. Problems: Additional Assessment/Plan Additional Assessment/Plan Additional Assessment/Plan 1. Dislodged of the GJ tube accidentally 2. Vent dependent respiratory failure 3. Chronic encephalopathy 4. Renal failure 5. Peripheral vascular disease 6. Anemia 7. Large gastrocutaneous fistula, endoscopically it is not possible to keep the largest diameter GJ tube in place 8. Hypotension needs dopamine to maintain the blood pressure Plan Case discussed with Dr. Blackburn and told him to proceed with jejunostomy tube. Continue all supportive care patient needs surgical repair of gastrocutaneous fistula and possible new jejunostomy tube It is difficult for the patient to come off the dopamine Finally patient is no chemical code Consultation Date/Type/Reason Admit Date/Time May 06, 2017 at 16:34 Type of Consultation: id [id number] HR Interval Summary Subjective hx not possible: pt non-verbal, pt critical Exam/Review of Systems Vital Signs Vitals Vital Signs Date Time Temp Pulse Resp B/P Pulse Ox O2 Delivery O2 Flow Rate FiO2 05/28/17 11:00 89 20 107/50 100 Mechanical Ventilator 05/28/17 09:40 30 05/28/17 08:00 98.3 Intake and Output 05/27/17 05/27/17 05/28/17 15:00 23:00 07:00 Intake Total 764.0 ml 1048.448 ml 663.768 ml Output Total 660 ml 730 ml 560 ml Balance 104.0 ml 318.448 ml 103.768 ml Exam Constitutional: alert, oriented, well developed Psych: nl mood/affect, no complaints Head: atraumatic, normocephalic Eyes: EOMI, PERRL, nl conjunctiva, nl lids, nl sclera ENMT: nl external ears & nose, nl lips & teeth, nl nasal mucosa & septum Neck: non-tender, supple Respiratory: clear to auscultation, normal air movement, other (Patient is on vent) Cardiovascular: nl pulses, regular rate and rhythm Gastrointestinal: nl liver, spleen, non-tender, soft Musculoskeletal: nl extremities to inspection, nl gait and stance Extremities: normal pulses Neurological: SIDEROGRAPHIST II-XII intact, nl mental status, nl speech, nl strength, unresponsive Skin: nl turgor, No rash or lesions Lymph: nl lymph nodes Results Result Diagram: 05/28/1715 05/28/1715 Results 24 hrs Laboratory Tests Test 05/27/17 13:07 05/27/17 17:08 05/27/17 22:05 05/28/17 00:49 Bedside Glucose 79 82 84 65 L Test 05/28/17 01:12 05/28/17 01:32 05/28/17 05:15 05/28/17 05:36 Bedside Glucose 114 110 81 White Blood Count 5.0 # Red Blood Count 3.29 L Hemoglobin 9.8 L Hematocrit 29.8 L Mean Corpuscular Volume 90.6 Mean Corpuscular Hemoglobin 29.8 Mean Corpuscular Hemoglobin Concent 32.9 Red Cell Distribution Width 16.9 H Platelet Count 169 Mean Platelet Volume 9.9 Neutrophils % 53.4 Lymphocytes % 21.0 Monocytes % 7.5 Eosinophils % 17.3 H Basophils % 0.6 Nucleated Red Blood Cells % 0.0 Neutrophils # 2.7 Lymphocytes # 1.1 Monocytes # 0.4 Eosinophils # 0.9 H Basophils # 0.0 Nucleated Red Blood Cells # 0.0 Sodium Level 138 Potassium Level 3.7 Chloride Level 107 Carbon Dioxide Level 19 L Anion Gap 16 Blood Urea Nitrogen 21 H Creatinine 2.01 H Glucose Level 91 Calcium Level 8.3 L Phosphorus Level 4.4 Magnesium Level 2.0 Total Bilirubin 0.0 L Direct Bilirubin 0.00 Indirect Bilirubin 0.0 Aspartate Amino Transf (AST/SGOT) 20 Alanine Aminotransferase (ALT/SGPT) 20 Alkaline Phosphatase 165 H Total Protein 6.3 Albumin 2.1 L Globulin 4.20 H Albumin/Globulin Ratio 0.50 Prealbumin 4.2 L Triglycerides Level 83 Test 05/28/17 09:29 Bedside Glucose 94 Medications Medications Current Medications Atorvastatin Calcium (Lipitor) 10 mg QHS GTB Last administered on 05/19/17 21: 00; Admin Dose 10 MG; Start 05/06/17 at 21:00 Bisacodyl (Dulcolax Supp) 10 mg Q48H [place] Last administered on 05/22/17 16:38; Admin Dose 10 MG; Start 05/06/17 at 17:00 Carbidopa/Levodopa (Sinemet (25/ 100)) 1 tab TID GTB Last administered on 14:01; Admin Dose 1 TAB; Start 05/06/17 at 21:00 Clopidogrel Bisulfate (plaVIX) 75 mg DAILY GTB Last administered on 05/17/17 10:40; Admin Dose 75 MG; Start 05/07/17 at 09:00; Status Future Hold Donepezil HCl (Aricept) 10 mg QHS GTB Last administered on 05/19/17 21:00; Admin Dose 10 MG; Start 05/06/17 at 21:00 Ferrous Sulfate (Ferrous Sulfate (Ec)) 325 mg BID PO Last administered on 09:09; Admin Dose 325 MG; Start 05/06/17 at 21:00 Folic Acid (Folic Acid) 1 mg DAILY GTB Last administered on 05/22/17 09:09; Admin Dose 1 MG; Start 05/07/17 at 09:00 Lactobacillus Acidophilus/ Rhamnosus (Culturelle) 1 cap QHS GTB Last administered on 05/19/17 21:00; Admin Dose 1 CAP; Start 05/06/17 at 21:00 Magnesium Hydroxide (Milk Of Mag) 30 ml Q24H GTB Last administered on 05/22/17 16:38; Admin Dose 30 ML; Start 05/06/17 at 17:00 Memantine (Namenda) 5 mg QAM GTB Last administered on 05/22/17 09:10; Admin Dose 5 MG; Start 05/07/17 at 09:00 Metoprolol Tartrate (Lopressor) 25 mg Q12H GTB Last administered on 05/18/17 16:47; Admin Dose 25 MG; Start 05/06/17 at 17:00; Status Future Hold Multivit/Ca Carb/ B Cmplx/FA/Prenat (Radhika-John) 1 tab DAILY GTB Last administered on 05/22/17 09:09; Admin Dose 1 TAB; Start 05/07/17 at 09:00 Pramipexole (Mirapex) 0.5 mg DAILY GTB Last administered on 05/22/17 09:09; Admin Dose 0.5 MG; Start 05/07/17 at 09:00 Sodium Biphosphate/ Sodium Phosphate (Fleet Enema Pediatric) 118 ml Q72H PRN [place] CONSTIPATION; Start 05/06/17 at 17:00 Citric Acid/ Sodium Citrate (Bicitra) 30 ml BID PO Last administered on 09:09; Admin Dose 30 ML; Start 05/06/17 at 21:00 Nystatin (Nystatin Powder) 1 applic BID TOP Last administered on 05/28/17 09:32 ; Admin Dose 1 APPLIC; Start 05/09/17 at 21:00 Collagenase (Santyl) 1 applic DAILY TOP Last administered on 05/28/17 09:32; Admin Dose 1 APPLIC; Start 05/09/17 at 15:00 Collagenase 1 applic 1 applic PRN PRN TOP WOUND CARE; Start 05/09/17 at 14:00 Norepinephrine 16 mg/Dextrose 500 ml @ 1.87 mls/hr TITRATE IV ; Start 05/10/17 at 14:00 Dopamine HCl/ Dextrose 250 ml @ 6.848 mls/ hr TITRATE IV Last administered on 05/28/17 06:35; Admin Dose 20.543 MLS/HR; Start 05/10/17 at 18:30 Miscellaneous Information 1 ea NOTE XX ; Start 05/11/17 at 08:00 Glucose (Glutose) 15 gm Q15M PRN PO DECREASED GLUCOSE; Start 05/11/17 at 08:00 Glucose (Glutose) 22.5 gm Q15M PRN PO DECREASED GLUCOSE; Start 05/11/17 at 08: 00 Dextrose (D50w Syringe) 25 ml Q15M PRN IV DECREASED GLUCOSE Last administered on 05/28/17 00:53; Admin Dose 25 ML; Start 05/11/17 at 08:00 Dextrose (D50w Syringe) 50 ml Q15M PRN IV DECREASED GLUCOSE Last administered on 05/15/17 00:11; Admin Dose 50 ML; Start 05/11/17 at 08:00 Glucagon (Glucagen) 1 mg Q15M PRN IM DECREASED GLUCOSE; Start 05/11/17 at 08:00 Glucose (Glutose) 15 gm Q15M PRN BUCCAL DECREASED GLUCOSE; Start 05/11/17 at 08 :00 Epoetin Vasyl (Epogen (Esrd)) 10,000 units MoWeFr@17 SC Last administered on 05/27 17:07; Admin Dose 10,000 UNITS; Start 05/13/17 at 17:00 IV Flush (NS 10 ml) 10 ml PRN PRN IV IV PROTOCOL; Start 05/15/17 at 17:30 Pantoprazole 40 mg 40 mg BID@06,18 IV Last administered on 05/28/17 05:37; Admin Dose 40 MG; Start 05/16/17 at 10:00 Trimethoprim/ Sulfamethoxazole/ Dextrose (Bactrim/D5W) 260 ml @ 173.333 mls/hr Q8 IVPB Last administered on 05/28/17 06:34; Admin Dose 173.333 MLS/HR; Start 05/19/17 at 21:00 Amikacin Sulfate AMIKACIN PER PHARMACY NOTE XX ; Start 05/19/17 at 18:00 Cefepime HCl 0.5 gm/Sodium Chloride 100 ml @ 100 mls/hr Q24H IVPB Last administered on 05/27/17 21:59; Admin Dose 100 MLS/HR; Start 05/19/17 at 20:00 Amikacin Sulfate/ Sodium Chloride (Amikacin/NS) 101.4 ml @ 101.4 mls/ hr Q96H IVPB Last administered on 05/27/17 22:04; Admin Dose 101.4 MLS/HR; Start at 21:00 Midodrine (Proamatine) 10 mg TID@09,13,17 GTB ; Start 05/23/17 at 09:00 Heparin Sodium (Porcine) 5000 unit 5,000 unit BID SC Last administered on 09:35; Admin Dose 5,000 UNIT; Start 05/23/17 at 09:00 Dextrose/Sodium Chloride (D5-1/2ns) 1,000 ml @ 75 mls/hr [id number] IV Last administered on 05/26/17 06:29; Admin Dose 75 MLS/HR; Start 05/23/17 at 11:30; Status Future Hold Insulin Aspart NOVOLOG *MILD* ALGORI... Q4 SC Last administered on 05/27/17 04: 50; Admin Dose 1 UNIT; Start 05/26/17 at 09:00 Total Parenteral Nutrition 1,000 ml @ 40 mls/hr Q24H IV Last administered on 14:38; Admin Dose 40 MLS/HR; Start 05/27/17 at 14:00 Fat Emulsion Intravenous (Liposyn Ii 20%) 250 ml @ 31.25 mls/ hr Q24H IV Last administered on 05/28/17 09:33; Admin Dose 31.25 MLS/HR; Start 05/28/17 at 10:00 SYLWIA SY MD May 28, 2017 11:50
--- NOTE | 2017-05-28 11:50 | CONS ---
Date/Time of Note Date/Time of Note DATE: 05/28/17 TIME: 11:45 Assessment/Plan Assessment/Plan Chief Complaint/Hosp Course 86-year-old debilitated female admitted from subacute with dislodged G-tube. However during hospital course she has developed respiratory failure is currently in the intensive care unit. Major comorbid medical problems include history of advanced dementia, she is PEG trached and chronic kidney disease. She remains in intensive care unit critically ill, she is a full code family members have not addressed ongoing goals of care. Problems: Additional Assessment/Plan Patient's son spoke to Dr. Rosas's CODE STATUS changed to chemical code however I would suggest continue with scheduling Bioethics Meeting. Patient's son should be invited and offer support for his decision but options for level of care in addition to chemical code. Patient is clearly a candidate for Hospice Care, in the past he has refused to speak with me. Will discuss with Dr. Rosas. Consultation Date/Type/Reason Admit Date/Time May 06, 2017 at 16:34 Initial Consult Date 05/22/17 Type of Consultation: id Exam/Review of Systems Vital Signs Vitals Vital Signs Date Time Temp Pulse Resp B/P Pulse Ox O2 Delivery O2 Flow Rate FiO2 05/28/17 11:00 89 20 107/50 100 Mechanical Ventilator 05/28/17 09:40 30 05/28/17 08:00 98.3 Intake and Output 05/27/17 05/27/17 05/28/17 15:00 23:00 07:00 Intake Total 764.0 ml 1048.448 ml 663.768 ml Output Total 660 ml 730 ml 560 ml Balance 104.0 ml 318.448 ml 103.768 ml Exam Constitutional: frail, non-verbal Neck: non-tender, supple Respiratory: congested cough (Decreased respiratory sounds right greater than left inspiratory and expiratory crackles), crackles/rales Cardiovascular: No S3, No S4, No bruits, No diastolic murmur, No edema, No gallop, No irregular rhythm, No jugular venous distention (JVD), No murmurs/ extra sounds, No nl pulses, No other, No regular rate and rhythm, No rub, No systolic murmur Neurological: other (Nonverbal no response to verbal or tactile stimulation, stares into space, no purposeful movement), unresponsive Results Result Diagram: 05/28/17 0515 05/28/17 0515 Results 24 hrs Laboratory Tests Test 05/27/17 13:07 05/27/17 17:08 05/27/17 22:05 05/28/17 00:49 Bedside Glucose 79 82 84 65 L Test 05/28/17 01:12 05/28/17 01:32 05/28/17 05:15 05/28/17 05:36 Bedside Glucose 114 110 81 White Blood Count 5.0 # Red Blood Count 3.29 L Hemoglobin 9.8 L Hematocrit 29.8 L Mean Corpuscular Volume 90.6 Mean Corpuscular Hemoglobin 29.8 Mean Corpuscular Hemoglobin Concent 32.9 Red Cell Distribution Width 16.9 H Platelet Count 169 Mean Platelet Volume 9.9 Neutrophils % 53.4 Lymphocytes % 21.0 Monocytes % 7.5 Eosinophils % 17.3 H Basophils % 0.6 Nucleated Red Blood Cells % 0.0 Neutrophils # 2.7 Lymphocytes # 1.1 Monocytes # 0.4 Eosinophils # 0.9 H Basophils # 0.0 Nucleated Red Blood Cells # 0.0 Sodium Level 138 Potassium Level 3.7 Chloride Level 107 Carbon Dioxide Level 19 L Anion Gap 16 Blood Urea Nitrogen 21 H Creatinine 2.01 H Glucose Level 91 Calcium Level 8.3 L Phosphorus Level 4.4 Magnesium Level 2.0 Total Bilirubin 0.0 L Direct Bilirubin 0.00 Indirect Bilirubin 0.0 Aspartate Amino Transf (AST/SGOT) 20 Alanine Aminotransferase (ALT/SGPT) 20 Alkaline Phosphatase 165 H Total Protein 6.3 Albumin 2.1 L Globulin 4.20 H Albumin/Globulin Ratio 0.50 Prealbumin 4.2 L Triglycerides Level 83 Test 05/28/17 09:29 Bedside Glucose 94 Medications Medications Current Medications Atorvastatin Calcium (Lipitor) 10 mg QHS GTB Last administered on 05/19/17 21: 00; Admin Dose 10 MG; Start 05/06/17 at 21:00 Bisacodyl (Dulcolax Supp) 10 mg Q48H [place] Last administered on 05/22/17 16:38; Admin Dose 10 MG; Start 05/06/17 at 17:00 Carbidopa/Levodopa (Sinemet (25/ 100)) 1 tab TID GTB Last administered on 14:01; Admin Dose 1 TAB; Start 05/06/17 at 21:00 Clopidogrel Bisulfate (plaVIX) 75 mg DAILY GTB Last administered on 05/17/17 10:40; Admin Dose 75 MG; Start 05/07/17 at 09:00; Status Future Hold Donepezil HCl (Aricept) 10 mg QHS GTB Last administered on 05/19/17 21:00; Admin Dose 10 MG; Start 05/06/17 at 21:00 Ferrous Sulfate (Ferrous Sulfate (Ec)) 325 mg BID PO Last administered on 09:09; Admin Dose 325 MG; Start 05/06/17 at 21:00 Folic Acid (Folic Acid) 1 mg DAILY GTB Last administered on 05/22/17 09:09; Admin Dose 1 MG; Start 05/07/17 at 09:00 Lactobacillus Acidophilus/ Rhamnosus (Culturelle) 1 cap QHS GTB Last administered on 05/19/17 21:00; Admin Dose 1 CAP; Start 05/06/17 at 21:00 Magnesium Hydroxide (Milk Of Mag) 30 ml Q24H GTB Last administered on 05/22/17 16:38; Admin Dose 30 ML; Start 05/06/17 at 17:00 Memantine (Namenda) 5 mg QAM GTB Last administered on 05/22/17 09:10; Admin Dose 5 MG; Start 05/07/17 at 09:00 Metoprolol Tartrate (Lopressor) 25 mg Q12H GTB Last administered on 05/18/17 16:47; Admin Dose 25 MG; Start 05/06/17 at 17:00; Status Future Hold Multivit/Ca Carb/ B Cmplx/FA/Prenat (Radhika-John) 1 tab DAILY GTB Last administered on 05/22/17 09:09; Admin Dose 1 TAB; Start 05/07/17 at 09:00 Pramipexole (Mirapex) 0.5 mg DAILY GTB Last administered on 05/22/17 09:09; Admin Dose 0.5 MG; Start 05/07/17 at 09:00 Sodium Biphosphate/ Sodium Phosphate (Fleet Enema Pediatric) 118 ml Q72H PRN [place] CONSTIPATION; Start 05/06/17 at 17:00 Citric Acid/ Sodium Citrate (Bicitra) 30 ml BID PO Last administered on 09:09; Admin Dose 30 ML; Start 05/06/17 at 21:00 Nystatin (Nystatin Powder) 1 applic BID TOP Last administered on 05/28/17 09:32 ; Admin Dose 1 APPLIC; Start 05/09/17 at 21:00 Collagenase (Santyl) 1 applic DAILY TOP Last administered on 05/28/17 09:32; Admin Dose 1 APPLIC; Start 05/09/17 at 15:00 Collagenase 1 applic 1 applic PRN PRN TOP WOUND CARE; Start 05/09/17 at 14:00 Norepinephrine 16 mg/Dextrose 500 ml @ 1.87 mls/hr TITRATE IV ; Start 05/10/17 at 14:00 Dopamine HCl/ Dextrose 250 ml @ 6.848 mls/ hr TITRATE IV Last administered on 05/28/17 06:35; Admin Dose 20.543 MLS/HR; Start 05/10/17 at 18:30 Miscellaneous Information 1 ea NOTE XX ; Start 05/11/17 at 08:00 Glucose (Glutose) 15 gm Q15M PRN PO DECREASED GLUCOSE; Start 05/11/17 at 08:00 Glucose (Glutose) 22.5 gm Q15M PRN PO DECREASED GLUCOSE; Start 05/11/17 at 08: 00 Dextrose (D50w Syringe) 25 ml Q15M PRN IV DECREASED GLUCOSE Last administered on 05/28/17 00:53; Admin Dose 25 ML; Start 05/11/17 at 08:00 Dextrose (D50w Syringe) 50 ml Q15M PRN IV DECREASED GLUCOSE Last administered on 05/15/17 00:11; Admin Dose 50 ML; Start 05/11/17 at 08:00 Glucagon (Glucagen) 1 mg Q15M PRN IM DECREASED GLUCOSE; Start 05/11/17 at 08:00 Glucose (Glutose) 15 gm Q15M PRN BUCCAL DECREASED GLUCOSE; Start 05/11/17 at 08 :00 Epoetin Vasyl (Epogen (Esrd)) 10,000 units MoWeFr@17 [place] Last administered on 05/27 17:07; Admin Dose 10,000 UNITS; Start 05/13/17 at 17:00 IV Flush (NS 10 ml) 10 ml PRN PRN IV IV PROTOCOL; Start 05/15/17 at 17:30 Pantoprazole 40 mg 40 mg BID@06,18 IV Last administered on 05/28/17 05:37; Admin Dose 40 MG; Start 05/16/17 at 10:00 Trimethoprim/ Sulfamethoxazole/ Dextrose (Bactrim/D5W) 260 ml @ 173.333 mls/hr Q8 IVPB Last administered on 05/28/17 06:34; Admin Dose 173.333 MLS/HR; Start 05/19/17 at 21:00 Amikacin Sulfate AMIKACIN PER PHARMACY NOTE XX ; Start 05/19/17 at 18:00 Cefepime HCl 0.5 gm/Sodium Chloride 100 ml @ 100 mls/hr Q24H IVPB Last administered on 05/27/17 21:59; Admin Dose 100 MLS/HR; Start 05/19/17 at 20:00 Amikacin Sulfate/ Sodium Chloride (Amikacin/NS) 101.4 ml @ 101.4 mls/ hr Q96H IVPB Last administered on 05/27/17 22:04; Admin Dose 101.4 MLS/HR; Start at 21:00 Midodrine (Proamatine) 10 mg TID@09,,17 GTB ; Start 05/23/17 at 09:00 Heparin Sodium (Porcine) 5000 unit 5,000 unit BID SC Last administered on 09:35; Admin Dose 5,000 UNIT; Start 05/23/17 at 09:00 Dextrose/Sodium Chloride (D5-1/2ns) 1,000 ml @ 75 mls/hr [id number] IV Last administered on 05/26/17 06:29; Admin Dose 75 MLS/HR; Start 05/23/17 at 11:30; Status Future Hold Insulin Aspart NOVOLOG *MILD* ALGORI... Q4 SC Last administered on 05/27/17 04: 50; Admin Dose 1 UNIT; Start 05/26/17 at 09:00 Total Parenteral Nutrition 1,000 ml @ 40 mls/hr Q24H IV Last administered on 14:38; Admin Dose 40 MLS/HR; Start 05/27/17 at 14:00 Fat Emulsion Intravenous (Liposyn Ii 20%) 250 ml @ 31.25 mls/ hr Q24H IV Last administered on 8/8/17at 09:33; Admin Dose 31.25 MLS/HR; Start 05/28/17 at 10:00 PENELOPE POPE May 28, 2017 11:50
--- NOTE | 2017-05-28 12:28 | CONS ---
Date/Time of Note Date/Time of Note DATE: 05/28/17 TIME: 12:25 Consult Date/Type/Reason Admit Date/Time May 06, 2017 at 16:34 Initial Consult Date 05/10/17 Type of Consultation: Pulmonary Subjective No significant changes, remains somnolent, pressor dependant. Objective Vital Signs Date Time Temp Pulse Resp B/P Pulse Ox O2 Delivery O2 Flow Rate FiO2 05/28/17 11:00 89 20 107/50 100 Mechanical Ventilator 05/28/17 09:40 30 05/28/17 08:00 98.3 Intake and Output 05/27/17 05/27/17 05/28/17 15:00 23:00 07:00 Intake Total 764.0 ml 1048.448 ml 663.768 ml Output Total 660 ml 730 ml 560 ml Balance 104.0 ml 318.448 ml 103.768 ml Exam PHYSICAL EXAMINATION GENERAL: Elderly lady chronically ill-appearing on mechanical ventilation via tracheostomy VITAL SIGNS: see below. HEENT: Pupils equal, round, and reactive to light. Tracheostomy site clean and intact. CARDIAC: S1, S2, 2/6 systolic ejection murmur CHEST: Diminished air entry bilaterally. ABDOMEN: Mildly distended. Bowel sounds present no guarding or rebound EXTREMITIES: No cyanosis, clubbing edema +2 NEUROLOGIC: Generalized weakness Results/Medications Result Diagram: 05/28/17 0515 05/28/17 0515 Results 24 hrs Laboratory Tests Test 05/27/17 13:07 05/27/17 17:08 05/27/17 22:05 05/28/17 00:49 Bedside Glucose 79 82 84 65 L Test 05/28/17 01:12 05/28/17 01:32 05/28/17 05:15 05/28/17 05:36 Bedside Glucose 114 110 81 White Blood Count 5.0 # Red Blood Count 3.29 L Hemoglobin 9.8 L Hematocrit 29.8 L Mean Corpuscular Volume 90.6 Mean Corpuscular Hemoglobin 29.8 Mean Corpuscular Hemoglobin Concent 32.9 Red Cell Distribution Width 16.9 H Platelet Count 169 Mean Platelet Volume 9.9 Neutrophils % 53.4 Lymphocytes % 21.0 Monocytes % 7.5 Eosinophils % 17.3 H Basophils % 0.6 Nucleated Red Blood Cells % 0.0 Neutrophils # 2.7 Lymphocytes # 1.1 Monocytes # 0.4 Eosinophils # 0.9 H Basophils # 0.0 Nucleated Red Blood Cells # 0.0 Sodium Level 138 Potassium Level 3.7 Chloride Level 107 Carbon Dioxide Level 19 L Anion Gap 16 Blood Urea Nitrogen 21 H Creatinine 2.01 H Glucose Level 91 Calcium Level 8.3 L Phosphorus Level 4.4 Magnesium Level 2.0 Total Bilirubin 0.0 L Direct Bilirubin 0.00 Indirect Bilirubin 0.0 Aspartate Amino Transf (AST/SGOT) 20 Alanine Aminotransferase (ALT/SGPT) 20 Alkaline Phosphatase 165 H Total Protein 6.3 Albumin 2.1 L Globulin 4.20 H Albumin/Globulin Ratio 0.50 Prealbumin 4.2 L Triglycerides Level 83 Test 05/28/17 09:29 Bedside Glucose 94 Medications Current Medications Atorvastatin Calcium (Lipitor) 10 mg QHS GTB Last administered on 05/19/17 21: 00; Admin Dose 10 MG; Start 05/06/17 at 21:00 Bisacodyl (Dulcolax Supp) 10 mg Q48H NM Last administered on 05/22/17 16:38; Admin Dose 10 MG; Start 05/06/17 at 17:00 Carbidopa/Levodopa (Sinemet (25/ 100)) 1 tab TID GTB Last administered on 14:01; Admin Dose 1 TAB; Start 05/06/17 at 21:00 Clopidogrel Bisulfate (plaVIX) 75 mg DAILY GTB Last administered on 05/17/17 10:40; Admin Dose 75 MG; Start 05/07/17 at 09:00; Status Future Hold Donepezil HCl (Aricept) 10 mg QHS GTB Last administered on 05/19/17 21:00; Admin Dose 10 MG; Start 05/06/17 at 21:00 Ferrous Sulfate (Ferrous Sulfate (Ec)) 325 mg BID PO Last administered on 09:09; Admin Dose 325 MG; Start 05/06/17 at 21:00 Folic Acid (Folic Acid) 1 mg DAILY GTB Last administered on 05/22/17 09:09; Admin Dose 1 MG; Start 05/07/17 at 09:00 Lactobacillus Acidophilus/ Rhamnosus (Culturelle) 1 cap QHS GTB Last administered on 05/19/17 21:00; Admin Dose 1 CAP; Start 05/06/17 at 21:00 Magnesium Hydroxide (Milk Of Mag) 30 ml Q24H GTB Last administered on 05/22/17 16:38; Admin Dose 30 ML; Start 05/06/17 at 17:00 Memantine (Namenda) 5 mg QAM GTB Last administered on 05/22/17 09:10; Admin Dose 5 MG; Start 05/07/17 at 09:00 Metoprolol Tartrate (Lopressor) 25 mg Q12H GTB Last administered on 05/18/17 16:47; Admin Dose 25 MG; Start 05/06/17 at 17:00; Status Future Hold Multivit/Ca Carb/ B Cmplx/FA/Prenat (Radhika-John) 1 tab DAILY GTB Last administered on 05/22/17 09:09; Admin Dose 1 TAB; Start 05/07/17 at 09:00 Pramipexole (Mirapex) 0.5 mg DAILY GTB Last administered on 05/22/17 09:09; Admin Dose 0.5 MG; Start 05/07/17 at 09:00 Sodium Biphosphate/ Sodium Phosphate (Fleet Enema Pediatric) 118 ml Q72H PRN NM CONSTIPATION; Start 05/06/17 at 17:00 Citric Acid/ Sodium Citrate (Bicitra) 30 ml BID PO Last administered on 09:09; Admin Dose 30 ML; Start 05/06/17 at 21:00 Nystatin (Nystatin Powder) 1 applic BID TOP Last administered on 05/28/17 09:32 ; Admin Dose 1 APPLIC; Start 05/09/17 at 21:00 Collagenase (Santyl) 1 applic DAILY TOP Last administered on 05/28/17 09:32; Admin Dose 1 APPLIC; Start 05/09/17 at 15:00 Collagenase 1 applic 1 applic PRN PRN TOP WOUND CARE; Start 05/09/17 at 14:00 Norepinephrine 16 mg/Dextrose 500 ml @ 1.87 mls/hr TITRATE IV ; Start 05/10/17 at 14:00 Dopamine HCl/ Dextrose 250 ml @ 6.848 mls/ hr TITRATE IV Last administered on 05/28/17 06:35; Admin Dose 20.543 MLS/HR; Start 05/10/17 at 18:30 Miscellaneous Information 1 ea NOTE XX ; Start 05/11/17 at 08:00 Glucose (Glutose) 15 gm Q15M PRN PO DECREASED GLUCOSE; Start 05/11/17 at 08:00 Glucose (Glutose) 22.5 gm Q15M PRN PO DECREASED GLUCOSE; Start 05/11/17 at 08: 00 Dextrose (D50w Syringe) 25 ml Q15M PRN IV DECREASED GLUCOSE Last administered on 05/28/17 00:53; Admin Dose 25 ML; Start 05/11/17 at 08:00 Dextrose (D50w Syringe) 50 ml Q15M PRN IV DECREASED GLUCOSE Last administered on 05/15/17 00:11; Admin Dose 50 ML; Start 05/11/17 at 08:00 Glucagon (Glucagen) 1 mg Q15M PRN IM DECREASED GLUCOSE; Start 05/11/17 at 08:00 Glucose (Glutose) 15 gm Q15M PRN BUCCAL DECREASED GLUCOSE; Start 05/11/17 at 08 :00 Epoetin Vasyl (Epogen (Esrd)) 10,000 units MoWeFr@17 SC Last administered on 05/27 17:07; Admin Dose 10,000 UNITS; Start 05/13/17 at 17:00 IV Flush (NS 10 ml) 10 ml PRN PRN IV IV PROTOCOL; Start 05/15/17 at 17:30 Pantoprazole 40 mg 40 mg BID@06,18 IV Last administered on 05/28/17 05:37; Admin Dose 40 MG; Start 05/16/17 at 10:00 Trimethoprim/ Sulfamethoxazole/ Dextrose (Bactrim/D5W) 260 ml @ 173.333 mls/hr Q8 IVPB Last administered on 05/28/17 06:34; Admin Dose 173.333 MLS/HR; Start 05/19/17 at 21:00 Amikacin Sulfate AMIKACIN PER PHARMACY NOTE XX ; Start 05/19/17 at 18:00 Cefepime HCl 0.5 gm/Sodium Chloride 100 ml @ 100 mls/hr Q24H IVPB Last administered on 05/27/17 21:59; Admin Dose 100 MLS/HR; Start 05/19/17 at 20:00 Amikacin Sulfate/ Sodium Chloride (Amikacin/NS) 101.4 ml @ 101.4 mls/ hr Q96H IVPB Last administered on 05/27/17 22:04; Admin Dose 101.4 MLS/HR; Start at 21:00 Midodrine (Proamatine) 10 mg TID@09,,17 GTB ; Start 05/23/17 at 09:00 Heparin Sodium (Porcine) 5000 unit 5,000 unit BID SC Last administered on 09:35; Admin Dose 5,000 UNIT; Start 05/23/17 at 09:00 Dextrose/Sodium Chloride (D5-1/2ns) 1,000 ml @ 75 mls/hr [id number] IV Last administered on 05/26/17 06:29; Admin Dose 75 MLS/HR; Start 05/23/17 at 11:30; Status Future Hold Insulin Aspart NOVOLOG *MILD* ALGORI... Q4 SC Last administered on 05/27/17 04: 50; Admin Dose 1 UNIT; Start 05/26/17 at 09:00 Total Parenteral Nutrition 1,000 ml @ 40 mls/hr Q24H IV Last administered on 14:38; Admin Dose 40 MLS/HR; Start 05/27/17 at 14:00 Fat Emulsion Intravenous (Liposyn Ii 20%) 250 ml @ 31.25 mls/ hr Q24H IV Last administered on 05/28/17 09:33; Admin Dose 31.25 MLS/HR; Start 05/28/17 at 10:00 Assessment/Plan Chief Complaint/Hosp Course Additional Assessment/Plan IMP: 1. Septic shock 2. VDRF 3. ? HCAP 4. Cellulitis 5. Urosepsis 6. Encephalopathy 7. STARLA RECS: 1. Pressors to MAP > 65 mmHg 2. Vent support 3. Palliative Care consultation. Bioethics recs. 4. TF's/Free H20 5. dvt prophylaxis Critical care time 35 minutes. Problems: JARED CLAIRE MD, [facility] May 28, 2017 12:28
--- NOTE | 2017-05-28 12:41 | CONS ---
Date/Time of Note Date/Time of Note DATE: 05/28/17 TIME: 12:38 Assessment/Plan Assessment/Plan Chief Complaint/Hosp Course ID PROGRESS NOTE CURRENT ABX DAY => Cefepime #10 + Amikacin #10+ Bactrim IV #10 TOTAL ABX DAY # 19 Colistin INH #10 -> DC 8/6 Merrem#10 => DC 7/30 Vanco IV #10 => DC 7/30 24H INTERVAL SUMMARY * Encephalopathic, no fevers, WBC normalized, remains on Dopamine pressor support * Need surgical placement of JT -- not a candidate for repeat GT the EC is too large -- has been too unstable for surgical placement of JT * Chemical code status * s/p Right arm PICC line removed -> still on pressors PHYSICAL EXAMINATION: GENERAL: VSS,NAD, no fevers == Obese, eyes open HEENT: NGT->Secure / ETT secure NECK: Supple, trach-> midline CHEST: Equal chest rise bilaterally, Vented HEART: Pulse RRR ABDOMEN: Soft -> see photos large EC fistula residual healing scar, cellulitis w/(+)drainage EXTREMITIES: Warm, no edema SKIN: Warm, dry ID ASSESSMENT: 86 yo F w/PMHx Obesity,Parkinson's dementia w/chronic encephalopathy admitted with: 1. Sepsis w/shock, hypothermia, leukocytosis, lactic acidosis => multifactorial as below * 05/07/17 BCx (-) 2. Acute on chronic respiratory failure w/Trach 3. HCAP => Tracheobronchitis * CT (+)Large right pleural effusion/small left effusion * Respiratory Cx 05/14: * Organism 1 PSEUDOMONAS AERUGINOSA QUANTITY 3+ Organism 2 STENOTROPHOMONAS MALTOPHILIA QUANTITY 3+ 4. 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 5. UTI as per urinalysis on admission => urine was not sent for culture 6. Multiple chronic decub ulcers 7. RASH on admission s/p empiric Elimite x1 w/(-)skin scraping for scabies 8. Acute kidney injury 9. Diabetes. 10. Acute on chronic anemia. 11. 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 Completing ABX course for GNR MDRO PNA + ABD noah-stoma, cellulitis 2. GI PLAN: Large gastrocutaneous fistula, endoscopically it is not possible given to keep the largest diameter GJ tube in place=> proceed to placement of JT . . . Problems: Consultation Date/Type/Reason Admit Date/Time May 06, 2017 at 16:34 Initial Consult Date 05/12/17 Type of Consultation: ID Exam/Review of Systems Vital Signs Vitals Vital Signs Date Time Temp Pulse Resp B/P Pulse Ox O2 Delivery O2 Flow Rate FiO2 05/28/17 11:00 89 20 107/50 100 Mechanical Ventilator 05/28/17 09:40 30 05/28/17 08:00 98.3 Intake and Output 05/27/17 05/27/17 05/28/17 15:00 23:00 07:00 Intake Total 764.0 ml 1048.448 ml 663.768 ml Output Total 660 ml 730 ml 560 ml Balance 104.0 ml 318.448 ml 103.768 ml Results Result Diagram: 05/28/17 0505/28/17 0515 Results 24 hrs Laboratory Tests Test 05/27/17 13:07 05/27/17 17:08 05/27/17 22:05 05/28/17 00:49 Bedside Glucose 79 82 84 65 L Test 05/28/17 01:12 05/28/17 01:32 05/28/17 05:15 05/28/17 05:36 Bedside Glucose 114 110 81 White Blood Count 5.0 # Red Blood Count 3.29 L Hemoglobin 9.8 L Hematocrit 29.8 L Mean Corpuscular Volume 90.6 Mean Corpuscular Hemoglobin 29.8 Mean Corpuscular Hemoglobin Concent 32.9 Red Cell Distribution Width 16.9 H Platelet Count 169 Mean Platelet Volume 9.9 Neutrophils % 53.4 Lymphocytes % 21.0 Monocytes % 7.5 Eosinophils % 17.3 H Basophils % 0.6 Nucleated Red Blood Cells % 0.0 Neutrophils # 2.7 Lymphocytes # 1.1 Monocytes # 0.4 Eosinophils # 0.9 H Basophils # 0.0 Nucleated Red Blood Cells # 0.0 Sodium Level 138 Potassium Level 3.7 Chloride Level 107 Carbon Dioxide Level 19 L Anion Gap 16 Blood Urea Nitrogen 21 H Creatinine 2.01 H Glucose Level 91 Calcium Level 8.3 L Phosphorus Level 4.4 Magnesium Level 2.0 Total Bilirubin 0.0 L Direct Bilirubin 0.00 Indirect Bilirubin 0.0 Aspartate Amino Transf (AST/SGOT) 20 Alanine Aminotransferase (ALT/SGPT) 20 Alkaline Phosphatase 165 H Total Protein 6.3 Albumin 2.1 L Globulin 4.20 H Albumin/Globulin Ratio 0.50 Prealbumin 4.2 L Triglycerides Level 83 Test 05/28/17 09:29 Bedside Glucose 94 Medications Medications Current Medications Atorvastatin Calcium (Lipitor) 10 mg QHS GTB Last administered on 05/19/17 21: 00; Admin Dose 10 MG; Start 05/06/17 at 21:00 Bisacodyl (Dulcolax Supp) 10 mg Q48H AR Last administered on 05/22/17 16:38; Admin Dose 10 MG; Start 05/06/17 at 17:00 Carbidopa/Levodopa (Sinemet (25/ 100)) 1 tab TID GTB Last administered on 14:01; Admin Dose 1 TAB; Start 05/06/17 at 21:00 Clopidogrel Bisulfate (plaVIX) 75 mg DAILY GTB Last administered on 05/17/17 10:40; Admin Dose 75 MG; Start 05/07/17 at 09:00; Status Future Hold Donepezil HCl (Aricept) 10 mg QHS GTB Last administered on 05/19/17 21:00; Admin Dose 10 MG; Start 05/06/17 at 21:00 Ferrous Sulfate (Ferrous Sulfate (Ec)) 325 mg BID PO Last administered on 09:09; Admin Dose 325 MG; Start 05/06/17 at 21:00 Folic Acid (Folic Acid) 1 mg DAILY GTB Last administered on 05/22/17 09:09; Admin Dose 1 MG; Start 05/07/17 at 09:00 Lactobacillus Acidophilus/ Rhamnosus (Culturelle) 1 cap QHS GTB Last administered on 05/19/17 21:00; Admin Dose 1 CAP; Start 05/06/17 at 21:00 Magnesium Hydroxide (Milk Of Mag) 30 ml Q24H GTB Last administered on 05/22/17 16:38; Admin Dose 30 ML; Start 05/06/17 at 17:00 Memantine (Namenda) 5 mg QAM GTB Last administered on 05/22/17 09:10; Admin Dose 5 MG; Start 05/07/17 at 09:00 Metoprolol Tartrate (Lopressor) 25 mg Q12H GTB Last administered on 05/18/17 16:47; Admin Dose 25 MG; Start 05/06/17 at 17:00; Status Future Hold Multivit/Ca Carb/ B Cmplx/FA/Prenat (Radhika-John) 1 tab DAILY GTB Last administered on 05/22/17 09:09; Admin Dose 1 TAB; Start 05/07/17 at 09:00 Pramipexole (Mirapex) 0.5 mg DAILY GTB Last administered on 05/22/17 09:09; Admin Dose 0.5 MG; Start 05/07/17 at 09:00 Sodium Biphosphate/ Sodium Phosphate (Fleet Enema Pediatric) 118 ml Q72H PRN AR CONSTIPATION; Start 05/06/17 at 17:00 Citric Acid/ Sodium Citrate (Bicitra) 30 ml BID PO Last administered on 09:09; Admin Dose 30 ML; Start 05/06/17 at 21:00 Nystatin (Nystatin Powder) 1 applic BID TOP Last administered on 05/28/17 09:32 ; Admin Dose 1 APPLIC; Start 05/09/17 at 21:00 Collagenase (Santyl) 1 applic DAILY TOP Last administered on 05/28/17 09:32; Admin Dose 1 APPLIC; Start 05/09/17 at 15:00 Collagenase 1 applic 1 applic PRN PRN TOP WOUND CARE; Start 05/09/17 at 14:00 Norepinephrine 16 mg/Dextrose 500 ml @ 1.87 mls/hr TITRATE IV ; Start 05/10/17 at 14:00 Dopamine HCl/ Dextrose 250 ml @ 6.848 mls/ hr TITRATE IV Last administered on 05/28/17 06:35; Admin Dose 20.543 MLS/HR; Start 05/10/17 at 18:30 Miscellaneous Information 1 ea NOTE XX ; Start 05/11/17 at 08:00 Glucose (Glutose) 15 gm Q15M PRN PO DECREASED GLUCOSE; Start 05/11/17 at 08:00 Glucose (Glutose) 22.5 gm Q15M PRN PO DECREASED GLUCOSE; Start 05/11/17 at 08: 00 Dextrose (D50w Syringe) 25 ml Q15M PRN IV DECREASED GLUCOSE Last administered on 05/28/17 00:53; Admin Dose 25 ML; Start 05/11/17 at 08:00 Dextrose (D50w Syringe) 50 ml Q15M PRN IV DECREASED GLUCOSE Last administered on 05/15/17 00:11; Admin Dose 50 ML; Start 05/11/17 at 08:00 Glucagon (Glucagen) 1 mg Q15M PRN IM DECREASED GLUCOSE; Start 05/11/17 at 08:00 Glucose (Glutose) 15 gm Q15M PRN BUCCAL DECREASED GLUCOSE; Start 05/11/17 at 08 :00 Epoetin Vasyl (Epogen (Esrd)) 10,000 units MoWeFr@17 SC Last administered on 05/27 17:07; Admin Dose 10,000 UNITS; Start 05/13/17 at 17:00 IV Flush 10 ml 10 ml PRN PRN IV IV PROTOCOL; Start 05/15/17 at 17:30 Trimethoprim/ Sulfamethoxazole/ Dextrose (Bactrim/D5W) 260 ml @ 173.333 mls/hr Q8 IVPB Last administered on 05/28/17 06:34; Admin Dose 173.333 MLS/HR; Start 05/19/17 at 21:00 Amikacin Sulfate AMIKACIN PER PHARMACY NOTE XX ; Start 05/19/17 at 18:00 Cefepime HCl 0.5 gm/Sodium Chloride 100 ml @ 100 mls/hr Q24H IVPB Last administered on 05/27/17 21:59; Admin Dose 100 MLS/HR; Start 05/19/17 at 20:00 Amikacin Sulfate/ Sodium Chloride (Amikacin/NS) 101.4 ml @ 101.4 mls/ hr Q96H IVPB Last administered on 05/27/17 22:04; Admin Dose 101.4 MLS/HR; Start at 21:00 Midodrine (Proamatine) 10 mg TID@09,,17 GTB ; Start 05/23/17 at 09:00 Heparin Sodium (Porcine) 5000 unit 5,000 unit BID SC Last administered on 09:35; Admin Dose 5,000 UNIT; Start 05/23/17 at 09:00 Dextrose/Sodium Chloride (D5-1/2ns) 1,000 ml @ 75 mls/hr [id number] IV Last administered on 05/26/17 06:29; Admin Dose 75 MLS/HR; Start 05/23/17 at 11:30; Status Future Hold Insulin Aspart NOVOLOG *MILD* ALGORI... Q4 SC Last administered on 05/27/17 04: 50; Admin Dose 1 UNIT; Start 05/26/17 at 09:00 Total Parenteral Nutrition 1,000 ml @ 40 mls/hr Q24H IV Last administered on 14:38; Admin Dose 40 MLS/HR; Start 05/27/17 at 14:00 Fat Emulsion Intravenous (Liposyn Ii 20%) 250 ml @ 31.25 mls/ hr Q24H IV Last administered on 05/28/17 09:33; Admin Dose 31.25 MLS/HR; Start 05/28/17 at 10:00 Famotidine (Pepcid Iv) 20 mg DAILY IV ; Start 05/29/17 at 09:00 SYLVIA PADRON NP May 28, 2017 12:41
--- NOTE | 2017-05-28 14:17 | CONS ---
Date/Time of Note Date/Time of Note DATE: 05/28/17 TIME: 14:16 Consult Date/Type/Reason Admit Date/Time May 06, 2017 at 16:34 Initial Consult Date 05/22/17 Type of Consultation: CARDIOLOGY Subjective CARDIOLOGY FOLLOW UP NOTE: Discussed with staff and rhythm was reviewed pt remains in NSR. NO AFIB seen NONVERBAL. pt is still ICU on dopamine drip still unable to wean off so far. pt is on TPN now. OBJECTIVE: General: no acute distress. s/p trach on vent. HEENT: NC/AT. NECK: NO JVD. no stridor. S/P trach on vent CV: RRR. systolic murmur; no gallop or rubs. PULM: no wheezing anteriorly GI: SOFT, NT, ND, no rebound or guarding s/p dressing at the site of previous G tube Extremity: + B/L LE edema. no clubbing. neuro: opens her eyes to painful stimuli. does not follow commands Psych: calm rectal: deferred Objective Vital Signs Date Time Temp Pulse Resp B/P Pulse Ox O2 Delivery O2 Flow Rate FiO2 05/28/17 13:30 89 17 112/49 100 05/28/17 13:00 Mechanical Ventilator 05/28/17 12:00 98.1 05/28/17 11:45 30 Intake and Output 05/27/17 05/27/17 05/28/17 15:00 23:00 07:00 Intake Total 764.0 ml 1048.448 ml 663.768 ml Output Total 660 ml 730 ml 560 ml Balance 104.0 ml 318.448 ml 103.768 ml Results/Medications Result Diagram: 05/28/17 0515 05/28/17 0515 Results 24 hrs Laboratory Tests Test 05/27/17 17:08 05/27/17 22:05 05/28/17 00:49 05/28/17 01:12 Bedside Glucose 82 84 65 L 114 Test 05/28/17 01:32 05/28/17 05:15 05/28/17 05:36 05/28/17 09:29 Bedside Glucose 110 81 94 White Blood Count 5.0 # Red Blood Count 3.29 L Hemoglobin 9.8 L Hematocrit 29.8 L Mean Corpuscular Volume 90.6 Mean Corpuscular Hemoglobin 29.8 Mean Corpuscular Hemoglobin Concent 32.9 Red Cell Distribution Width 16.9 H Platelet Count 169 Mean Platelet Volume 9.9 Neutrophils % 53.4 Lymphocytes % 21.0 Monocytes % 7.5 Eosinophils % 17.3 H Basophils % 0.6 Nucleated Red Blood Cells % 0.0 Neutrophils # 2.7 Lymphocytes # 1.1 Monocytes # 0.4 Eosinophils # 0.9 H Basophils # 0.0 Nucleated Red Blood Cells # 0.0 Sodium Level 138 Potassium Level 3.7 Chloride Level 107 Carbon Dioxide Level 19 L Anion Gap 16 Blood Urea Nitrogen 21 H Creatinine 2.01 H Glucose Level 91 Calcium Level 8.3 L Phosphorus Level 4.4 Magnesium Level 2.0 Total Bilirubin 0.0 L Direct Bilirubin 0.00 Indirect Bilirubin 0.0 Aspartate Amino Transf (AST/SGOT) 20 Alanine Aminotransferase (ALT/SGPT) 20 Alkaline Phosphatase 165 H Total Protein 6.3 Albumin 2.1 L Globulin 4.20 H Albumin/Globulin Ratio 0.50 Prealbumin 4.2 L Triglycerides Level 83 Test 05/28/17 12:29 Bedside Glucose 82 Medications Current Medications Atorvastatin Calcium (Lipitor) 10 mg QHS GTB Last administered on 05/19/17 21: 00; Admin Dose 10 MG; Start 05/06/17 at 21:00 Bisacodyl (Dulcolax Supp) 10 mg Q48H [place] Last administered on 05/22/17 16:38; Admin Dose 10 MG; Start 05/06/17 at 17:00 Carbidopa/Levodopa (Sinemet (25/ 100)) 1 tab TID GTB Last administered on 14:01; Admin Dose 1 TAB; Start 05/06/17 at 21:00 Clopidogrel Bisulfate (plaVIX) 75 mg DAILY GTB Last administered on 05/17/17 10:40; Admin Dose 75 MG; Start 05/07/17 at 09:00; Status Future Hold Donepezil HCl (Aricept) 10 mg QHS GTB Last administered on 05/19/17 21:00; Admin Dose 10 MG; Start 05/06/17 at 21:00 Ferrous Sulfate (Ferrous Sulfate (Ec)) 325 mg BID PO Last administered on 09:09; Admin Dose 325 MG; Start 05/06/17 at 21:00 Folic Acid (Folic Acid) 1 mg DAILY GTB Last administered on 05/22/17 09:09; Admin Dose 1 MG; Start 05/07/17 at 09:00 Lactobacillus Acidophilus/ Rhamnosus (Culturelle) 1 cap QHS GTB Last administered on 05/19/17 21:00; Admin Dose 1 CAP; Start 05/06/17 at 21:00 Magnesium Hydroxide (Milk Of Mag) 30 ml Q24H GTB Last administered on 05/22/17 16:38; Admin Dose 30 ML; Start 05/06/17 at 17:00 Memantine (Namenda) 5 mg QAM GTB Last administered on 05/22/17 09:10; Admin Dose 5 MG; Start 05/07/17 at 09:00 Metoprolol Tartrate (Lopressor) 25 mg Q12H GTB Last administered on 05/18/17 16:47; Admin Dose 25 MG; Start 05/06/17 at 17:00; Status Future Hold Multivit/Ca Carb/ B Cmplx/FA/Prenat (Radhika-John) 1 tab DAILY GTB Last administered on 05/22/17 09:09; Admin Dose 1 TAB; Start 05/07/17 at 09:00 Pramipexole (Mirapex) 0.5 mg DAILY GTB Last administered on 05/22/17 09:09; Admin Dose 0.5 MG; Start 05/07/17 at 09:00 Sodium Biphosphate/ Sodium Phosphate (Fleet Enema Pediatric) 118 ml Q72H PRN [place] CONSTIPATION; Start 05/06/17 at 17:00 Citric Acid/ Sodium Citrate (Bicitra) 30 ml BID PO Last administered on 09:09; Admin Dose 30 ML; Start 05/06/17 at 21:00 Nystatin (Nystatin Powder) 1 applic BID TOP Last administered on 05/28/17 09:32 ; Admin Dose 1 APPLIC; Start 05/09/17 at 21:00 Collagenase (Santyl) 1 applic DAILY TOP Last administered on 05/28/17 09:32; Admin Dose 1 APPLIC; Start 05/09/17 at 15:00 Collagenase 1 applic 1 applic PRN PRN TOP WOUND CARE; Start 05/09/17 at 14:00 Norepinephrine 16 mg/Dextrose 500 ml @ 1.87 mls/hr TITRATE IV ; Start 05/10/17 at 14:00 Dopamine HCl/ Dextrose 250 ml @ 6.848 mls/ hr TITRATE IV Last administered on 05/28/17 06:35; Admin Dose 20.543 MLS/HR; Start 05/10/17 at 18:30 Miscellaneous Information 1 ea NOTE XX ; Start 05/11/17 at 08:00 Glucose (Glutose) 15 gm Q15M PRN PO DECREASED GLUCOSE; Start 05/11/17 at 08:00 Glucose (Glutose) 22.5 gm Q15M PRN PO DECREASED GLUCOSE; Start 05/11/17 at 08: 00 Dextrose (D50w Syringe) 25 ml Q15M PRN IV DECREASED GLUCOSE Last administered on 05/28/17 00:53; Admin Dose 25 ML; Start 05/11/17 at 08:00 Dextrose (D50w Syringe) 50 ml Q15M PRN IV DECREASED GLUCOSE Last administered on 05/15/17 00:11; Admin Dose 50 ML; Start 05/11/17 at 08:00 Glucagon (Glucagen) 1 mg Q15M PRN IM DECREASED GLUCOSE; Start 05/11/17 at 08:00 Glucose (Glutose) 15 gm Q15M PRN BUCCAL DECREASED GLUCOSE; Start 05/11/17 at 08 :00 Epoetin Vasyl (Epogen (Esrd)) 10,000 units MoWeFr@17 SC Last administered on 05/27 17:07; Admin Dose 10,000 UNITS; Start 05/13/17 at 17:00 IV Flush 10 ml 10 ml PRN PRN IV IV PROTOCOL; Start 05/15/17 at 17:30 Trimethoprim/ Sulfamethoxazole/ Dextrose (Bactrim/D5W) 260 ml @ 173.333 mls/hr Q8 IVPB Last administered on 05/28/17 06:34; Admin Dose 173.333 MLS/HR; Start 05/19/17 at 21:00 Amikacin Sulfate AMIKACIN PER PHARMACY NOTE XX ; Start 05/19/17 at 18:00 Cefepime HCl 0.5 gm/Sodium Chloride 100 ml @ 100 mls/hr Q24H IVPB Last administered on 05/27/17 21:59; Admin Dose 100 MLS/HR; Start 05/19/17 at 20:00 Amikacin Sulfate/ Sodium Chloride (Amikacin/NS) 101.4 ml @ 101.4 mls/ hr Q96H IVPB Last administered on 05/27/17 22:04; Admin Dose 101.4 MLS/HR; Start at 21:00 Midodrine (Proamatine) 10 mg TID@09,,17 GTB ; Start 05/23/17 at 09:00 Heparin Sodium (Porcine) 5000 unit 5,000 unit BID SC Last administered on 09:35; Admin Dose 5,000 UNIT; Start 05/23/17 at 09:00 Dextrose/Sodium Chloride (D5-1/2ns) 1,000 ml @ 75 mls/hr [id number] IV Last administered on 05/26/17 06:29; Admin Dose 75 MLS/HR; Start 05/23/17 at 11:30; Status Future Hold Insulin Aspart NOVOLOG *MILD* ALGORI... Q4 SC Last administered on 05/27/17 04: 50; Admin Dose 1 UNIT; Start 05/26/17 at 09:00 Total Parenteral Nutrition 1,000 ml @ 40 mls/hr Q24H IV Last administered on 14:38; Admin Dose 40 MLS/HR; Start 05/27/17 at 14:00 Fat Emulsion Intravenous (Liposyn Ii 20%) 250 ml @ 31.25 mls/ hr Q24H IV Last administered on 05/28/17 09:33; Admin Dose 31.25 MLS/HR; Start 05/28/17 at 10:00 Famotidine (Pepcid Iv) 20 mg DAILY IV ; Start 05/29/17 at 09:00 Assessment/Plan Chief Complaint/Hosp Course 1. hypoxemic resp failure: s/p trach 2. Pafib; currently in NSR 3. hx HTN: now in shock and hypotensive. : STILL requires DOPAMINE DRIP 4. encephalopathy 5. renal failure: f/u with nephrology 6. dysphagia 7. G tube malfunction/ infection: unable to repair by GI. 8. GI bleed 9. severe anemia 10. malnutrition will cont dopamine drip and titrate off once BP remains stable. cont resp care nutritional support. CONT ICU care as long as pt is on pressors correct lytes prn off of PLAVIX DUE TO ANEMIA/ BLEEDING still awaiting surgery for PEG replacement nutritional support. CODE STATUS IS chemical code only now. THANK YOU. Problems: MILAGROS MUNOZ MD May 28, 2017 14:17
--- NOTE | 2017-05-28 14:58 | PN ---
Date/Time of Note Date/Time of Note DATE: 05/28/17 TIME: 14:53 Assessment/Plan Lines/Catheters IV Catheter Type (from Nrs): PICC Line Collazo in Place (from Nrs): Yes Assessment/Plan Chief Complaint/Hosp Course 1. G-tube dislodgement: replaced with gjtube by GI, continued yellow drainage peristomal; gj tube replacement attempt-unable due to too large of an opening; still unable to be weaned from pressors; Now chemical code -hospice/palliative is likely the best option for this patient -consider nj tube for meds/nutrition in the interim -possible surgical placement of jtube when medically stable 2. Septic shock: multifactorial: 2/2: pneumonia + cellulitis + wounds; persistent, continued on pressors -abx -supportive 3. Respiratory failure with trach: PNA with pulm edema; comfortable on vent -pulmonary toilet -abx -supportive 4.STARLA with CKD; +urine output -judicious fluids -renally dose meds -per nephrology 5. Normocytic anemia: previous coffee ground drainage peristoma;no acute bleed noted -monitor and transfuse as needed -continue Epogen 6. CHF -medical management 7. Diabetes -medical management 8. Acute encephalopathy with history of advanced dementia; unchanged neurologically -supportive 9. Decubitus wound. -continue wound care. 10. Peristomal cellulitis 2/2 #1; +pseudomonas: improving -local care -abx per sensitivity 11. Pancytopenia: improving 12. Hypotension: on pressors, unable to be weaned off -consider albumin Patient seen and examined in collaboration with Dr. Meliton Blackburn. Thank you. Problems: Subjective 24 Hr Interval Summary Patient now chemical code. Possible bioethics committee meeting. Still on pressors. Now on tpn. No change in condition. No fevers, chills, diaphoresis, rhythm changes, sz. Exam/Review of Systems Vital Signs Vitals Vital Signs Date Time Temp Pulse Resp B/P Pulse Ox O2 Delivery O2 Flow Rate FiO2 05/28/17 13:30 89 17 112/49 100 05/28/17 13:20 30 05/28/17 13:00 Mechanical Ventilator 05/28/17 12:00 98.1 Intake and Output 05/27/17 05/27/17 05/28/17 15:00 23:00 07:00 Intake Total 764.0 ml 1048.448 ml 663.768 ml Output Total 660 ml 730 ml 560 ml Balance 104.0 ml 318.448 ml 103.768 ml Exam Free Text/Dictation Constitutional: alert, non-verbal, awake, nonresponsive No oriented Psych: confusion, withdraws from pain Head: atraumatic, normocephalic Eyes: nl sclera ENMT: mucosa pink and moist, missing teeth Neck: non-tender, other (trach), supple Respiratory: diminished Cardiovascular: edema Gastrointestinal: distended (mod), other (stoma still leaking yellow drainage to ostomy bag), soft, nontender Musculoskeletal: No muscle tone Extremities: edema Neurological: No nl mental status, No nl speech Skin: other (abdominal/peristomal/breast fold redness, moisture damage/ cellulitis) Results Result Diagram: 05/28/17 0515 05/28/17 0515 SHADI CALDERON NP May 28, 2017 14:58
[2017-05-28] MEDS: TPN 1,000 ML IV SCH (15:59)
[2017-05-28] MEDS: MAGNESIUM HYDROXIDE 30ML CUP GTB SCH (16:07)
[2017-05-28] MEDS: BISACODYL 10 MG SUPP PR SCH (16:08)
[2017-05-28] MEDS: LACTOBACILLUS RHAMNOSUS CAP GTB SCH (20:53)
[2017-05-28] MEDS: DONEPEZIL 10 MG TAB GTB SCH (20:53)
[2017-05-28] MEDS: ATORVASTATIN 10 MG TAB GTB SCH (20:54)
[2017-05-28] MEDS: CEFEPIME HCL 0.5 GM in SOD CHLORIDE 0.9% 100 ML IVPB SCH (21:04)
[2017-05-29] VITALS (83 sets, daily range): BP systolic 57–129; BP diastolic 22–100; PULSE 75–88; RESP 15–21
[2017-05-29] MEDS: INSULIN ASPART [NOVOLOG] 3 ML PEN SC SCH ×6 (01:00→21:00)
[2017-05-29] MEDS: TRIMETHOPRIM/SULFAMETHOXAZOLE 10 ML in DEXTROSE 5% 250 ML IVPB SCH ×3 (05:52→22:11)
[2017-05-29 06:08] LABS: CALCIUM 8.6 mg/dl (8.4-10.2); CREATININE 1.86 mg/dl (0.44-1.00); PHOSPHORUS 4.4 mg/dl (2.5-4.9); POTASSIUM 3.7 mmol/L (3.5-5.1)
--- NOTE | 2017-05-29 07:45 | PN ---
DATE: 05/29/2017 SUBJECTIVE DATA: The patient remains critically ill, on presser support. No other events noted overnight. No hemoptysis, hematemesis, hematochezia. The patient is currently on TPN. OBJECTIVE DATA: VITAL SIGNS: Blood pressure is 96/45, respirations 20, pulse 85, temperature 97.3. HEENT: Head is normocephalic. NECK: Supple. HEART: Regular rate. LUNGS: Show diminished breath sounds at the base. ABDOMEN: Soft, nontender to palpation. No rebound or guarding. 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 EXTREMITIES: Negative for clubbing, cyanosis. Positive edema. Positive contractures. DERMATOLOGIC: Clean. No rashes. MUSCULOSKELETAL: No joint effusion. NEUROLOGIC: No change in exam. LABORATORY AND DIAGNOSTIC DATA: Shows sodium 134, potassium 3.7, BUN 22, creatinine 1.86. White count 5.0, hemoglobin 9.8, crit 29.8, platelet count is 169. ASSESSMENT AND PLAN: 1. Septic shock. Etiology is multifactorial secondary to pneumonia, cellulitis. The patient remains on intravenous antibiotics. Remains on presser support, unable to be weaned off. At this point, continue to monitor. Follow up with Infectious Disease. Follow up with Volcanology Professor for any further recommendations. 2. Anemia. Continue to monitor H and H levels. Continue Epogen. 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 Continue to monitor to follow up recommendations. 4. Ventilatory-dependent respiratory failure. Vent settings reviewed. ABGs reviewed. Continue to monitor. 5. Nonoliguric acute kidney injury on top of chronic kidney disease, stage 4. Etiology hemodynamics. Continue current treatment plan and supportive care. Renally dose all medications. Avoid nephrotoxins. 6. Acute encephalopathy and advanced dementia. Etiology is toxic metabolic. Continue to monitor. 7. Mineral bone disorder. Continue to monitor calcium and phosphorus levels. 8. Diabetes. Continue Accu-Cheks and sliding scale. 9. Decubitus wound. Continue wound care. 10. Gastrointestinal and deep venous thrombosis prophylaxis. Continue proton pump inhibitor and heparin. 11. Nutrition. Continue total parenteral nutrition. DISPOSITION: Please note, patient has overall poor prognosis. Please note, I spent over 35 minutes of critical care time with this patient. Dictated By: Brendan Rosas DO /junie/rajesh /Document#: [id number]
[2017-05-29] MEDS: FOLIC ACID 1 MG TAB GTB SCH (08:17)
[2017-05-29] MEDS: PRAMIPEXOLE 0.25 MG TAB GTB SCH (08:17)
[2017-05-29] MEDS: MULTIVIT/CA CARB/B CMPLX/FA TAB GTB SCH (08:17)
[2017-05-29] MEDS: MIDODRINE 5 MG TAB GTB SCH ×3 (08:17→16:31)
[2017-05-29] MEDS: MEMANTINE 5 MG TAB GTB SCH (08:17)
[2017-05-29] MEDS: DEXTROSE 5%-0.45% NACL 1,000 ML IV SCH (08:17)
[2017-05-29] MEDS: CITRIC ACID/NA CITRATE 30 ML CUP PO SCH ×4 (08:18→22:28)
[2017-05-29] MEDS: CARBIDOPA/LEVODOPA (25/100) TAB GTB SCH ×3 (08:18→22:02)
[2017-05-29] MEDS: FERROUS SULFATE (EC) 325 MG TAB PO SCH ×4 (08:18→22:27)
[2017-05-29] MEDS: FAMOTIDINE 20 MG INJ IV SCH (08:42)
[2017-05-29] MEDS: HEPARIN 5,000 UNIT/0.5 ML VIAL SC SCH ×2 (08:44→22:09)
[2017-05-29] MEDS: DOPamine-D5W 1.6 MG/ML 250 ML IV SCH ×2 (08:45→20:42)
--- NOTE | 2017-05-29 08:46 | CONS ---
Date/Time of Note Date/Time of Note DATE: 05/29/17 TIME: 08:44 Consult Date/Type/Reason Admit Date/Time May 06, 2017 at 16:34 Initial Consult Date 05/22/17 Type of Consultation: CARDIOLOGY Subjective CARDIOLOGY FOLLOW UP NOTE: Discussed with staff and rhythm was reviewed pt remains in NSR. NO AFIB seen pt remains NONVERBAL. pt is still ICU on dopamine drip still unable to wean off so far. pt is on TPN now. OBJECTIVE: General: no acute distress. s/p trach on vent. HEENT: NC/AT. NECK: NO JVD. no stridor. S/P trach on vent CV: RRR. systolic murmur; no gallop or rubs. PULM: no wheezing anteriorly GI: SOFT, NT, ND, no rebound or guarding s/p dressing at the site of previous G tube Extremity: + B/L LE and UE edema. no clubbing. neuro: opens her eyes to painful stimuli. does not follow commands Psych: calm rectal: deferred Objective Vital Signs Date Time Temp Pulse Resp B/P Pulse Ox O2 Delivery O2 Flow Rate FiO2 05/29/17 08:00 30 05/29/17 05:33 86 16 100 05/29/17 04:15 96/45 05/29/17 04:00 97.3 Mechanical Ventilator Intake and Output 05/28/17 05/28/17 05/29/17 15:00 23:00 07:00 Intake Total 758.544 ml 786.301 ml 639.801 ml Output Total 240 ml 350 ml 350 ml Balance 518.544 ml 436.301 ml 289.801 ml Results/Medications Result Diagram: 05/28/17 0515 05/29/17 0500 Results 24 hrs Laboratory Tests Test 05/28/17 09:29 05/28/17 12:29 05/28/17 16:06 05/28/17 21:07 Bedside Glucose 94 82 86 78 Test 05/29/17 01:19 05/29/17 05:00 05/29/17 05:11 Bedside Glucose 74 70 Sodium Level 134 L Potassium Level 3.7 Chloride Level 103 Carbon Dioxide Level 20 L Anion Gap 15 Blood Urea Nitrogen 22 H Creatinine 1.86 H Glucose Level 73 Calcium Level 8.6 Phosphorus Level 4.4 Magnesium Level 2.0 Medications Current Medications Atorvastatin Calcium (Lipitor) 10 mg QHS GTB Last administered on 05/19/17 21: 00; Admin Dose 10 MG; Start 05/06/17 at 21:00 Bisacodyl (Dulcolax Supp) 10 mg Q48H [place] Last administered on 05/22/17 16:38; Admin Dose 10 MG; Start 05/06/17 at 17:00 Carbidopa/Levodopa (Sinemet (25/ 100)) 1 tab TID GTB Last administered on 14:01; Admin Dose 1 TAB; Start 05/06/17 at 21:00 Clopidogrel Bisulfate (plaVIX) 75 mg DAILY GTB Last administered on 05/17/17 10:40; Admin Dose 75 MG; Start 05/07/17 at 09:00; Status Future Hold Donepezil HCl (Aricept) 10 mg QHS GTB Last administered on 05/19/17 21:00; Admin Dose 10 MG; Start 05/06/17 at 21:00 Ferrous Sulfate (Ferrous Sulfate (Ec)) 325 mg BID PO Last administered on 09:09; Admin Dose 325 MG; Start 05/06/17 at 21:00 Folic Acid (Folic Acid) 1 mg DAILY GTB Last administered on 05/22/17 09:09; Admin Dose 1 MG; Start 05/07/17 at 09:00 Lactobacillus Acidophilus/ Rhamnosus (Culturelle) 1 cap QHS GTB Last administered on 05/19/17 21:00; Admin Dose 1 CAP; Start 05/06/17 at 21:00 Magnesium Hydroxide (Milk Of Mag) 30 ml Q24H GTB Last administered on 05/22/17 16:38; Admin Dose 30 ML; Start 05/06/17 at 17:00 Memantine (Namenda) 5 mg QAM GTB Last administered on 05/22/17 09:10; Admin Dose 5 MG; Start 05/07/17 at 09:00 Metoprolol Tartrate (Lopressor) 25 mg Q12H GTB Last administered on 05/18/17 16:47; Admin Dose 25 MG; Start 05/06/17 at 17:00; Status Future Hold Multivit/Ca Carb/ B Cmplx/FA/Prenat (Radhika-John) 1 tab DAILY GTB Last administered on 05/22/17 09:09; Admin Dose 1 TAB; Start 05/07/17 at 09:00 Pramipexole (Mirapex) 0.5 mg DAILY GTB Last administered on 05/22/17 09:09; Admin Dose 0.5 MG; Start 05/07/17 at 09:00 Sodium Biphosphate/ Sodium Phosphate (Fleet Enema Pediatric) 118 ml Q72H PRN [place] CONSTIPATION; Start 05/06/17 at 17:00 Citric Acid/ Sodium Citrate (Bicitra) 30 ml BID PO Last administered on 09:09; Admin Dose 30 ML; Start 05/06/17 at 21:00 Nystatin (Nystatin Powder) 1 applic BID TOP Last administered on 05/28/17 21:05 ; Admin Dose 1 APPLIC; Start 05/09/17 at 21:00 Collagenase (Santyl) 1 applic DAILY TOP Last administered on 05/28/17 09:32; Admin Dose 1 APPLIC; Start 05/09/17 at 15:00 Collagenase 1 applic 1 applic PRN PRN TOP WOUND CARE; Start 05/09/17 at 14:00 Norepinephrine 16 mg/Dextrose 500 ml @ 1.87 mls/hr TITRATE IV ; Start 05/10/17 at 14:00 Dopamine HCl/ Dextrose 250 ml @ 6.848 mls/ hr TITRATE IV Last administered on 05/28/17 19:00; Admin Dose 20.543 MLS/HR; Start 05/10/17 at 18:30 Miscellaneous Information 1 ea NOTE XX ; Start 05/11/17 at 08:00 Glucose (Glutose) 15 gm Q15M PRN PO DECREASED GLUCOSE; Start 05/11/17 at 08:00 Glucose (Glutose) 22.5 gm Q15M PRN PO DECREASED GLUCOSE; Start 05/11/17 at 08: 00 Dextrose (D50w Syringe) 25 ml Q15M PRN IV DECREASED GLUCOSE Last administered on 05/28/17 00:53; Admin Dose 25 ML; Start 05/11/17 at 08:00 Dextrose (D50w Syringe) 50 ml Q15M PRN IV DECREASED GLUCOSE Last administered on 05/15/17 00:11; Admin Dose 50 ML; Start 05/11/17 at 08:00 Glucagon (Glucagen) 1 mg Q15M PRN IM DECREASED GLUCOSE; Start 05/11/17 at 08:00 Glucose (Glutose) 15 gm Q15M PRN BUCCAL DECREASED GLUCOSE; Start 05/11/17 at 08 :00 Epoetin Vasyl (Epogen (Esrd)) 10,000 units MoWeFr@17 SC Last administered on 05/27 17:07; Admin Dose 10,000 UNITS; Start 05/13/17 at 17:00 IV Flush 10 ml 10 ml PRN PRN IV IV PROTOCOL; Start 05/15/17 at 17:30 Trimethoprim/ Sulfamethoxazole/ Dextrose (Bactrim/D5W) 260 ml @ 173.333 mls/hr Q8 IVPB Last administered on 05/29/17 05:52; Admin Dose 173.333 MLS/HR; Start 05/19/17 at 21:00 Amikacin Sulfate AMIKACIN PER PHARMACY NOTE XX ; Start 05/19/17 at 18:00 Cefepime HCl 0.5 gm/Sodium Chloride 100 ml @ 100 mls/hr Q24H IVPB Last administered on 05/28/17 21:04; Admin Dose 100 MLS/HR; Start 05/19/17 at 20:00 Amikacin Sulfate/ Sodium Chloride (Amikacin/NS) 101.4 ml @ 101.4 mls/ hr Q96H IVPB Last administered on 05/27/17 22:04; Admin Dose 101.4 MLS/HR; Start at 21:00 Midodrine (Proamatine) 10 mg TID@,13,17 GTB ; Start 05/23/17 at 09:00 Heparin Sodium (Porcine) (Heparin (5000 Units/0.5 ml)) 5,000 unit BID SC Last administered on 05/28/17 21:15; Admin Dose 5,000 UNIT; Start 05/23/17 at 09:00 Insulin Aspart NOVOLOG *MILD* ALGORI... Q4 SC Last administered on 05/27/17 04: 50; Admin Dose 1 UNIT; Start 05/26/17 at 09:00 Total Parenteral Nutrition 1,000 ml @ 40 mls/hr Q24H IV Last administered on 15:59; Admin Dose 40 MLS/HR; Start 05/27/17 at 14:00 Fat Emulsion Intravenous (Liposyn Ii 20%) 250 ml @ 31.25 mls/ hr Q24H IV Last administered on 05/28/17 09:33; Admin Dose 31.25 MLS/HR; Start 05/28/17 at 10:00 Famotidine 20 mg 20 mg DAILY IV ; Start 05/29/17 at 09:00 Dextrose/Sodium Chloride (D5-1/2ns) 1,000 ml @ 50 mls/hr Q20H IV Last administered on 05/29/17 08:17; Admin Dose 50 MLS/HR; Start 05/29/17 at 07:30 Assessment/Plan Chief Complaint/Hosp Course 1. hypoxemic resp failure: s/p trach 2. Pafib; currently in NSR 3. hx HTN: now in shock and hypotensive. : STILL requires DOPAMINE DRIP 4. encephalopathy 5. renal failure: f/u with nephrology 6. dysphagia 7. G tube malfunction/ infection: unable to repair by GI. 8. GI bleed 9. severe anemia 10. malnutrition will cont dopamine drip and titrate off once BP remains stable. cont resp care nutritional support. CONT ICU care as long as pt is on pressors correct lytes prn off of PLAVIX DUE TO ANEMIA/ BLEEDING. pt is also NPO. F/U with GI and surgery rec. nutritional support. CODE STATUS IS chemical code only now. THANK YOU. Problems: MILAGROS MUNOZ MD May 29, 2017 08:46
[2017-05-29] MEDS: COLLAGENASE 30 GM TUBE TOP SCH (08:52)
[2017-05-29] MEDS: NYSTATIN 30 GM POWDER BTL TOP SCH ×2 (08:52→22:05)
--- NOTE | 2017-05-29 09:10 | RADRPT ---
PROCEDURE: XR Chest. CLINICAL INDICATION: pna TECHNIQUE: Single frontal view of the chest was obtained COMPARISON: Chest x-ray 05/27/2017 FINDINGS: The patient is rotated leftward. The tracheostomy appear stable in position. The right PICC line with tip projecting over the mid to upper superior vena cava appear stable in po sition. The cardiac silhouette remains mildly enlarged. There are atherosclerotic calcifications of the aorta. No pneumothorax is identified. Small bilateral pleural effusions appear stable. Scattered bilateral ill-defined reticular opacities are slightly less prominent, suggesting decrease d pulmonary edema. There are degenerate changes of the visualized spine. IMPRESSION: 1. Stable positions of the tracheostomy tube and right PICC line. 2. Decreased pulmonary edema. 3. Stable small bilateral pleural effusions. 4. Mild cardiomegaly. 5. Thoracic aortic atherosclerotic disease. RPTAT: EE Physician Daphne Date Time Electronically viewed and signed by Physician Daphne on 05/29/2017 09:09 [place]/
[2017-05-29] MEDS: FAT EMULSION 20% 250 ML IV SCH (10:42)
--- NOTE | 2017-05-29 12:37 | PN ---
Date/Time of Note Date/Time of Note DATE: 05/29/17 TIME: 12:33 Assessment/Plan Lines/Catheters IV Catheter Type (from Nrsg): PICC Line Collazo in Place (from Nrsg): Yes Assessment/Plan Chief Complaint/Hosp Course 1. G-tube dislodgement: replaced with gjtube by GI, continued yellow drainage peristomal; gj tube replacement attempt-unable due to too large of an opening; still unable to be weaned from pressors; Now chemical code -hospice/palliative is likely the best option for this patient -consider nj tube for meds/nutrition in the interim -possible surgical placement of jtube when medically stable-off pressors 2. Septic shock: multifactorial: 2/2: pneumonia + cellulitis + wounds; persistent, continued on pressors -abx -supportive 3. Respiratory failure with trach: PNA with pulm edema; comfortable on vent; cxr : no acute changes -pulmonary toilet -abx -supportive 4.STARLA with CKD; +urine output; improved cr -judicious fluids -renally dose meds -per nephrology 5. Normocytic anemia: previous coffee ground drainage peristoma;no acute bleed noted -monitor and transfuse as needed -continue Epogen 6. CHF -medical management 7. Diabetes with hypoglycemia -medical management 8. Acute encephalopathy with history of advanced dementia; unchanged neurologically -supportive 9. Decubitus wound. -continue wound care. 10. Peristomal cellulitis 2/2 #1; +pseudomonas: improving -local care -abx per sensitivity 11. Pancytopenia: improving 12. Hypotension: on pressors, unable to be weaned off -consider albumin Patient seen and examined in collaboration with Dr. Meliton Blackburn. Thank you. Problems: Subjective 24 Hr Interval Summary Continues on pressors and tpn. Appears comfortable. Nonverbal indicators of pain not present. +urine output. Hypoglycemic. No fevers, chills, vomiting, sz, change in tele rhythm. Copious drainage from abdominal stoma. Exam/Review of Systems Vital Signs Vitals Vital Signs Date Time Temp Pulse Resp B/P Pulse Ox O2 Delivery O2 Flow Rate FiO2 05/29/17 08:00 30 05/29/17 08:00 85 05/29/17 05:33 16 100 05/29/17 04:15 96/45 05/29/17 04:00 97.3 Mechanical Ventilator Intake and Output 05/28/17 05/28/17 05/29/17 15:00 23:00 07:00 Intake Total 758.544 ml 786.301 ml 700.344 ml Output Total 240 ml 350 ml 350 ml Balance 518.544 ml 436.301 ml 350.344 ml Exam Free Text/Dictation Constitutional: alert, non-verbal, awake, nonresponsive No oriented Psych: confusion, withdraws from pain Head: atraumatic, normocephalic Eyes: nl sclera ENMT: mucosa pink and moist, missing teeth Neck: non-tender, other (trach), supple Respiratory: diminished Cardiovascular: edema Gastrointestinal: distended (mod), other (stoma still leaking copious yellow drainage to ostomy bag), soft, nontender Musculoskeletal: No muscle tone Extremities: edema Neurological: No nl mental status, No nl speech Skin: other (abdominal/peristomal/breast fold redness, moisture damage/ cellulitis) Results Result Diagram: 05/28/17 0515 05/29/17 0500 SHADI CALDERON NP May 29, 2017 12:37
[2017-05-29] MEDS: TPN 1,000 ML IV SCH (14:40)
--- NOTE | 2017-05-29 14:57 | CONS ---
Date/Time of Note Date/Time of Note DATE: 05/29/17 TIME: 14:47 Assessment/Plan Assessment/Plan Chief Complaint/Hosp Course ID PROGRESS NOTE CURRENT ABX DAY => Cefepime #11 + Amikacin #11+ Bactrim IV #11 TOTAL ABX DAY # 20 Colistin INH #10 -> DC 8/6 Merrem#10 => DC 7/30 Vanco IV #10 => DC 7/30 24H INTERVAL SUMMARY * Sons have opted for ChemCode status only -- per nurse they were not open to comfort care/Hospice care discussion w/one son citing Zo Johnson case, paraphrasing " Mom is better off than Zo Johnson"; RN tells me her response to son was paraphrasing "Not really, Zo Johnson was a young adult and not 86 years old and critically ill in the icu on pressors and on the Vent." * Encephalopathic, no fevers, WBC normalized, remains on Dopamine pressor support * Need surgical placement of JT -- not a candidate for repeat GT the EC is too large -- has been too unstable for surgical placement of JT * Chemical code status * s/p Right arm PICC line removed -> still on pressors PHYSICAL EXAMINATION: GENERAL: VSS,NAD, no fevers == Obese, eyes open HEENT: NGT->Secure / ETT secure NECK: Supple, trach-> midline CHEST: Equal chest rise bilaterally, Vented HEART: Pulse RRR ABDOMEN: Soft -> see photos large EC fistula residual healing scar, cellulitis w/(+)drainage EXTREMITIES: Warm, no edema SKIN: Warm, dry ID ASSESSMENT: 86 yo F w/PMHx Obesity,Parkinson's dementia w/chronic encephalopathy admitted with: 1. Sepsis w/shock, hypothermia, leukocytosis, lactic acidosis => multifactorial as below * 05/07/17 BCx (-) 2. Acute on chronic respiratory failure w/Trach 3. HCAP => Tracheobronchitis * CT (+)Large right pleural effusion/small left effusion * Respiratory Cx 05/14: * Organism 1 PSEUDOMONAS AERUGINOSA QUANTITY 3+ Organism 2 STENOTROPHOMONAS MALTOPHILIA QUANTITY 3+ 4. 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 5. UTI as per urinalysis on admission => urine was not sent for culture 6. Multiple chronic decub ulcers 7. RASH on admission s/p empiric Elimite x1 w/(-)skin scraping for scabies 8. Acute kidney injury 9. Diabetes. 10. Acute on chronic anemia. 11. 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 Completing ABX course for GNR MDRO PNA + ABD noah-stoma, cellulitis 2. Despite lengthy course ABX; she has not been able to wean off Dopamine=> Has not been stable to go to OR for JT placement. 3. GI PLAN: Large gastrocutaneous fistula, endoscopically it is not possible given to keep the largest diameter GJ tube in place=> proceed to placement of JT 4. Patient is chronically encephalopathic, poor quality of life, poor long-term prognosis, and comfort care/Hospice appropriate. . . . . Problems: Consultation Date/Type/Reason Admit Date/Time May 06, 2017 at 16:34 Initial Consult Date 05/12/17 Type of Consultation: ID Exam/Review of Systems Vital Signs Vitals Vital Signs Date Time Temp Pulse Resp B/P Pulse Ox O2 Delivery O2 Flow Rate FiO2 05/29/17 13:50 83 16 100 30 05/29/17 12:30 120/58 05/29/17 12:15 98.3 Mechanical Ventilator Intake and Output 05/28/17 05/28/17 05/29/17 15:00 23:00 07:00 Intake Total 758.544 ml 786.301 ml 700.344 ml Output Total 240 ml 350 ml 350 ml Balance 518.544 ml 436.301 ml 350.344 ml Results Result Diagram: 05/28/17 0515 05/29/17 0500 Results 24 hrs Laboratory Tests Test 05/28/17 16:06 05/28/17 21:07 05/29/17 01:19 05/29/17 05:00 Bedside Glucose 86 78 74 Sodium Level 134 L Potassium Level 3.7 Chloride Level 103 Carbon Dioxide Level 20 L Anion Gap 15 Blood Urea Nitrogen 22 H Creatinine 1.86 H Glucose Level 73 Calcium Level 8.6 Phosphorus Level 4.4 Magnesium Level 2.0 Test 05/29/17 05:11 05/29/17 07:56 05/29/17 08:42 05/29/17 12:11 Bedside Glucose 70 81 85 Lactic Acid Level 1.4 Random Cortisol 16.7 Medications Medications Current Medications Atorvastatin Calcium (Lipitor) 10 mg QHS GTB Last administered on 05/19/17 21: 00; Admin Dose 10 MG; Start 05/06/17 at 21:00 Bisacodyl (Dulcolax Supp) 10 mg Q48H RI Last administered on 05/22/17 16:38; Admin Dose 10 MG; Start 05/06/17 at 17:00 Carbidopa/Levodopa (Sinemet (25/ 100)) 1 tab TID GTB Last administered on 14:01; Admin Dose 1 TAB; Start 05/06/17 at 21:00 Clopidogrel Bisulfate (plaVIX) 75 mg DAILY GTB Last administered on 05/17/17 10:40; Admin Dose 75 MG; Start 05/07/17 at 09:00; Status Future Hold Donepezil HCl (Aricept) 10 mg QHS GTB Last administered on 05/19/17 21:00; Admin Dose 10 MG; Start 05/06/17 at 21:00 Ferrous Sulfate (Ferrous Sulfate (Ec)) 325 mg BID PO Last administered on 09:09; Admin Dose 325 MG; Start 05/06/17 at 21:00 Folic Acid (Folic Acid) 1 mg DAILY GTB Last administered on 05/22/17 09:09; Admin Dose 1 MG; Start 05/07/17 at 09:00 Lactobacillus Acidophilus/ Rhamnosus (Culturelle) 1 cap QHS GTB Last administered on 05/19/17 21:00; Admin Dose 1 CAP; Start 05/06/17 at 21:00 Magnesium Hydroxide (Milk Of Mag) 30 ml Q24H GTB Last administered on 05/22/17 16:38; Admin Dose 30 ML; Start 05/06/17 at 17:00 Memantine (Namenda) 5 mg QAM GTB Last administered on 05/22/17 09:10; Admin Dose 5 MG; Start 05/07/17 at 09:00 Metoprolol Tartrate (Lopressor) 25 mg Q12H GTB Last administered on 05/18/17 16:47; Admin Dose 25 MG; Start 05/06/17 at 17:00; Status Future Hold Multivit/Ca Carb/ B Cmplx/FA/Prenat (Radhika-John) 1 tab DAILY GTB Last administered on 05/22/17 09:09; Admin Dose 1 TAB; Start 05/07/17 at 09:00 Pramipexole (Mirapex) 0.5 mg DAILY GTB Last administered on 05/22/17 09:09; Admin Dose 0.5 MG; Start 05/07/17 at 09:00 Sodium Biphosphate/ Sodium Phosphate (Fleet Enema Pediatric) 118 ml Q72H PRN RI CONSTIPATION; Start 05/06/17 at 17:00 Citric Acid/ Sodium Citrate (Bicitra) 30 ml BID PO Last administered on 09:09; Admin Dose 30 ML; Start 05/06/17 at 21:00 Nystatin (Nystatin Powder) 1 applic BID TOP Last administered on 05/29/17 08:52 ; Admin Dose 1 APPLIC; Start 05/09/17 at 21:00 Collagenase (Santyl) 1 applic DAILY TOP Last administered on 05/29/17 08:52; Admin Dose 1 APPLIC; Start 05/09/17 at 15:00 Collagenase 1 applic 1 applic PRN PRN TOP WOUND CARE; Start 05/09/17 at 14:00 Norepinephrine 16 mg/Dextrose 500 ml @ 1.87 mls/hr TITRATE IV ; Start 05/10/17 at 14:00 Dopamine HCl/ Dextrose 250 ml @ 6.848 mls/ hr TITRATE IV Last administered on 05/29/17 08:45; Admin Dose 20.543 MLS/HR; Start 05/10/17 at 18:30 Miscellaneous Information 1 ea NOTE XX ; Start 05/11/17 at 08:00 Glucose (Glutose) 15 gm Q15M PRN PO DECREASED GLUCOSE; Start 05/11/17 at 08:00 Glucose (Glutose) 22.5 gm Q15M PRN PO DECREASED GLUCOSE; Start 05/11/17 at 08: 00 Dextrose (D50w Syringe) 25 ml Q15M PRN IV DECREASED GLUCOSE Last administered on 05/28/17 00:53; Admin Dose 25 ML; Start 05/11/17 at 08:00 Dextrose (D50w Syringe) 50 ml Q15M PRN IV DECREASED GLUCOSE Last administered on 05/15/17 00:11; Admin Dose 50 ML; Start 05/11/17 at 08:00 Glucagon (Glucagen) 1 mg Q15M PRN IM DECREASED GLUCOSE; Start 05/11/17 at 08:00 Glucose (Glutose) 15 gm Q15M PRN BUCCAL DECREASED GLUCOSE; Start 05/11/17 at 08 :00 Epoetin Vasyl (Epogen (Esrd)) 10,000 units MoWeFr@17 SC Last administered on 05/27 17:07; Admin Dose 10,000 UNITS; Start 05/13/17 at 17:00 IV Flush 10 ml 10 ml PRN PRN IV IV PROTOCOL; Start 05/15/17 at 17:30 Trimethoprim/ Sulfamethoxazole/ Dextrose (Bactrim/D5W) 260 ml @ 173.333 mls/hr Q8 IVPB Last administered on 05/29/17 05:52; Admin Dose 173.333 MLS/HR; Start 05/19/17 at 21:00 Amikacin Sulfate AMIKACIN PER PHARMACY NOTE XX ; Start 05/19/17 at 18:00 Cefepime HCl 0.5 gm/Sodium Chloride 100 ml @ 100 mls/hr Q24H IVPB Last administered on 05/28/17 21:04; Admin Dose 100 MLS/HR; Start 05/19/17 at 20:00 Amikacin Sulfate/ Sodium Chloride (Amikacin/NS) 101.4 ml @ 101.4 mls/ hr Q96H IVPB Last administered on 05/27/17 22:04; Admin Dose 101.4 MLS/HR; Start at 21:00 Midodrine (Proamatine) 10 mg TID@09,13,17 GTB ; Start 05/23/17 at 09:00 Heparin Sodium (Porcine) (Heparin (5000 Units/0.5 ml)) 5,000 unit BID SC Last administered on 05/29/17 08:44; Admin Dose 5,000 UNIT; Start 05/23/17 at 09:00 Insulin Aspart NOVOLOG *MILD* ALGORI... Q4 SC Last administered on 05/27/17 04: 50; Admin Dose 1 UNIT; Start 05/26/17 at 09:00 Total Parenteral Nutrition 1,000 ml @ 40 mls/hr Q24H IV Last administered on 15:59; Admin Dose 40 MLS/HR; Start 05/27/17 at 14:00 Fat Emulsion Intravenous (Liposyn Ii 20%) 250 ml @ 31.25 mls/ hr Q24H IV Last administered on 05/29/17 10:42; Admin Dose 31.25 MLS/HR; Start 05/28/17 at 10:00 Famotidine 20 mg 20 mg DAILY IV Last administered on 05/29/17 08:42; Admin Dose 20 MG; Start 05/29/17 at 09:00 Dextrose/Sodium Chloride (D5-1/2ns) 1,000 ml @ 50 mls/hr Q20H IV Last administered on 05/29/17 08:17; Admin Dose 50 MLS/HR; Start 05/29/17 at 07:30 SYLVIA PADRON NP May 29, 2017 14:57
--- NOTE | 2017-05-29 15:59 | CONS ---
Date/Time of Note Date/Time of Note DATE: 05/29/17 TIME: 15:58 Consult Date/Type/Reason Admit Date/Time May 06, 2017 at 16:34 Initial Consult Date 05/10/17 Type of Consultation: Pulmonary Subjective Patient continues mechanical ventilation no significant changes Objective Vital Signs Date Time Temp Pulse Resp B/P Pulse Ox O2 Delivery O2 Flow Rate FiO2 05/29/17 13:50 83 16 100 30 05/29/17 12:30 120/58 05/29/17 12:15 98.3 Mechanical Ventilator Intake and Output 05/28/17 05/28/17 05/29/17 15:00 23:00 07:00 Intake Total 758.544 ml 786.301 ml 700.344 ml Output Total 240 ml 350 ml 350 ml Balance 518.544 ml 436.301 ml 350.344 ml Exam PHYSICAL EXAMINATION GENERAL: Elderly lady chronically ill-appearing on mechanical ventilation via tracheostomy VITAL SIGNS: see below. HEENT: Pupils equal, round, and reactive to light. Tracheostomy site clean and intact. CARDIAC: S1, S2, 2/6 systolic ejection murmur CHEST: Diminished air entry bilaterally. ABDOMEN: Mildly distended. Bowel sounds present no guarding or rebound EXTREMITIES: No cyanosis, clubbing edema +2 NEUROLOGIC: Generalized weakness Results/Medications Result Diagram: 05/28/17 0515 05/29/17 0500 Results 24 hrs Laboratory Tests Test 05/28/17 16:06 05/28/17 21:07 05/29/17 01:19 05/29/17 05:00 Bedside Glucose 86 78 74 Sodium Level 134 L Potassium Level 3.7 Chloride Level 103 Carbon Dioxide Level 20 L Anion Gap 15 Blood Urea Nitrogen 22 H Creatinine 1.86 H Glucose Level 73 Calcium Level 8.6 Phosphorus Level 4.4 Magnesium Level 2.0 Test 05/29/17 05:11 05/29/17 07:56 05/29/17 08:42 05/29/17 12:11 Bedside Glucose 70 81 85 Lactic Acid Level 1.4 Random Cortisol 16.7 Medications Current Medications Atorvastatin Calcium (Lipitor) 10 mg QHS GTB Last administered on 05/19/17 21: 00; Admin Dose 10 MG; Start 05/06/17 at 21:00 Bisacodyl (Dulcolax Supp) 10 mg Q48H NV Last administered on 05/22/17 16:38; Admin Dose 10 MG; Start 05/06/17 at 17:00 Carbidopa/Levodopa (Sinemet (25/ 100)) 1 tab TID GTB Last administered on 14:01; Admin Dose 1 TAB; Start 05/06/17 at 21:00 Clopidogrel Bisulfate (plaVIX) 75 mg DAILY GTB Last administered on 05/17/17 10:40; Admin Dose 75 MG; Start 05/07/17 at 09:00; Status Future Hold Donepezil HCl (Aricept) 10 mg QHS GTB Last administered on 05/19/17 21:00; Admin Dose 10 MG; Start 05/06/17 at 21:00 Ferrous Sulfate (Ferrous Sulfate (Ec)) 325 mg BID PO Last administered on 09:09; Admin Dose 325 MG; Start 05/06/17 at 21:00 Folic Acid (Folic Acid) 1 mg DAILY GTB Last administered on 05/22/17 09:09; Admin Dose 1 MG; Start 05/07/17 at 09:00 Lactobacillus Acidophilus/ Rhamnosus (Culturelle) 1 cap QHS GTB Last administered on 05/19/17 21:00; Admin Dose 1 CAP; Start 05/06/17 at 21:00 Magnesium Hydroxide (Milk Of Mag) 30 ml Q24H GTB Last administered on 05/22/17 16:38; Admin Dose 30 ML; Start 05/06/17 at 17:00 Memantine (Namenda) 5 mg QAM GTB Last administered on 05/22/17 09:10; Admin Dose 5 MG; Start 05/07/17 at 09:00 Metoprolol Tartrate (Lopressor) 25 mg Q12H GTB Last administered on 05/18/17 16:47; Admin Dose 25 MG; Start 05/06/17 at 17:00; Status Future Hold Multivit/Ca Carb/ B Cmplx/FA/Prenat (Radhika-John) 1 tab DAILY GTB Last administered on 05/22/17 09:09; Admin Dose 1 TAB; Start 05/07/17 at 09:00 Pramipexole (Mirapex) 0.5 mg DAILY GTB Last administered on 05/22/17 09:09; Admin Dose 0.5 MG; Start 05/07/17 at 09:00 Sodium Biphosphate/ Sodium Phosphate (Fleet Enema Pediatric) 118 ml Q72H PRN NV CONSTIPATION; Start 05/06/17 at 17:00 Citric Acid/ Sodium Citrate (Bicitra) 30 ml BID PO Last administered on 09:09; Admin Dose 30 ML; Start 05/06/17 at 21:00 Nystatin (Nystatin Powder) 1 applic BID TOP Last administered on 05/29/17 08:52 ; Admin Dose 1 APPLIC; Start 05/09/17 at 21:00 Collagenase (Santyl) 1 applic DAILY TOP Last administered on 05/29/17 08:52; Admin Dose 1 APPLIC; Start 05/09/17 at 15:00 Collagenase 1 applic 1 applic PRN PRN TOP WOUND CARE; Start 05/09/17 at 14:00 Norepinephrine 16 mg/Dextrose 500 ml @ 1.87 mls/hr TITRATE IV ; Start 05/10/17 at 14:00 Dopamine HCl/ Dextrose 250 ml @ 6.848 mls/ hr TITRATE IV Last administered on 05/29/17 08:45; Admin Dose 20.543 MLS/HR; Start 05/10/17 at 18:30 Miscellaneous Information 1 ea NOTE XX ; Start 05/11/17 at 08:00 Glucose (Glutose) 15 gm Q15M PRN PO DECREASED GLUCOSE; Start 05/11/17 at 08:00 Glucose (Glutose) 22.5 gm Q15M PRN PO DECREASED GLUCOSE; Start 05/11/17 at 08: 00 Dextrose (D50w Syringe) 25 ml Q15M PRN IV DECREASED GLUCOSE Last administered on 05/28/17 00:53; Admin Dose 25 ML; Start 05/11/17 at 08:00 Dextrose (D50w Syringe) 50 ml Q15M PRN IV DECREASED GLUCOSE Last administered on 05/15/17 00:11; Admin Dose 50 ML; Start 05/11/17 at 08:00 Glucagon (Glucagen) 1 mg Q15M PRN IM DECREASED GLUCOSE; Start 05/11/17 at 08:00 Glucose (Glutose) 15 gm Q15M PRN BUCCAL DECREASED GLUCOSE; Start 05/11/17 at 08 :00 Epoetin Vasyl (Epogen (Esrd)) 10,000 units MoWeFr@17 SC Last administered on 05/27 17:07; Admin Dose 10,000 UNITS; Start 05/13/17 at 17:00 IV Flush 10 ml 10 ml PRN PRN IV IV PROTOCOL; Start 05/15/17 at 17:30 Trimethoprim/ Sulfamethoxazole/ Dextrose (Bactrim/D5W) 260 ml @ 173.333 mls/hr Q8 IVPB Last administered on 05/29/17 14:40; Admin Dose 173.333 MLS/HR; Start 05/19/17 at 21:00 Amikacin Sulfate AMIKACIN PER PHARMACY NOTE XX ; Start 05/19/17 at 18:00 Cefepime HCl 0.5 gm/Sodium Chloride 100 ml @ 100 mls/hr Q24H IVPB Last administered on 05/28/17 21:04; Admin Dose 100 MLS/HR; Start 05/19/17 at 20:00 Amikacin Sulfate/ Sodium Chloride (Amikacin/NS) 101.4 ml @ 101.4 mls/ hr Q96H IVPB Last administered on 05/27/17 22:04; Admin Dose 101.4 MLS/HR; Start at 21:00 Midodrine (Proamatine) 10 mg TID@,,17 GTB ; Start 05/23/17 at 09:00 Heparin Sodium (Porcine) (Heparin (5000 Units/0.5 ml)) 5,000 unit BID SC Last administered on 05/29/17 08:44; Admin Dose 5,000 UNIT; Start 05/23/17 at 09:00 Insulin Aspart NOVOLOG *MILD* ALGORI... Q4 SC Last administered on 05/27/17 04: 50; Admin Dose 1 UNIT; Start 05/26/17 at 09:00 Total Parenteral Nutrition 1,000 ml @ 40 mls/hr Q24H IV Last administered on 14:40; Admin Dose 40 MLS/HR; Start 05/27/17 at 14:00 Fat Emulsion Intravenous (Liposyn Ii 20%) 250 ml @ 31.25 mls/ hr Q24H IV Last administered on 05/29/17 10:42; Admin Dose 31.25 MLS/HR; Start 05/28/17 at 10:00 Famotidine 20 mg 20 mg DAILY IV Last administered on 05/29/17 08:42; Admin Dose 20 MG; Start 05/29/17 at 09:00 Dextrose/Sodium Chloride (D5-1/2ns) 1,000 ml @ 50 mls/hr Q20H IV Last administered on 05/29/17 08:17; Admin Dose 50 MLS/HR; Start 05/29/17 at 07:30 Assessment/Plan Chief Complaint/Hosp Course Additional Assessment/Plan IMP: 1. Septic shock remains vasopressor dependent. Continues dopamine. 2. VDRF 3. ? HCAP 4. Cellulitis 5. Urosepsis 6. Encephalopathy 7. STARLA RECS: 1. Pressors to MAP > 65 mmHg 2. Vent support 3. Palliative Care consultation. Bioethics recs. 4. TF's/Free H20 5. dvt prophylaxis 6. Check cortisol level. Critical care time 35 minutes. Problems: JARED CLAIRE MD, [facility] May 29, 2017 15:59
[2017-05-29] MEDS: MAGNESIUM HYDROXIDE 30ML CUP GTB SCH (16:31)
[2017-05-29] MEDS: EPOETIN 10000 UNITS/1 ML INJ (ESRD) SC SCH (16:35)
--- NOTE | 2017-05-29 16:54 | CONS ---
Date/Time of Note Date/Time of Note DATE: 05/29/17 TIME: 16:52 Assessment/Plan Assessment/Plan Chief Complaint/Hosp Course This 69-year-old female with a history of CVA vent dependent respiratory failure , was brought to the emergency room for the dislodgment of the GJ tube. Patient is nonverbal and no information can be obtained. No GI bleeding no chest pain no shortness of breath. Problems: Additional Assessment/Plan Additional Assessment/Plan 1. Dislodged GJ tube accidentally 2. Vent dependent respiratory failure 3. Chronic encephalopathy 4. Renal failure 5. Peripheral vascular disease 6. Anemia 7. Large gastrocutaneous fistula, endoscopically it is not possible to keep the largest diameter GJ tube in place 8. Hypotension needs dopamine to maintain the blood pressure 9. Decubitus ulcer Plan Case discussed with Dr. Blackburn and told him to proceed with jejunostomy tube. Continue all supportive care patient needs surgical repair of gastrocutaneous fistula and possible new jejunostomy tube It is difficult for the patient to come off the dopamine Consultation Date/Type/Reason Admit Date/Time May 06, 2017 at 16:34 Type of Consultation: Pulmonary 24 HR Interval Summary Free Text/Dictation Drainage from the stoma has reduced Subjective hx not possible: pt non-verbal, pt critical Exam/Review of Systems Vital Signs Vitals Vital Signs Date Time Temp Pulse Resp B/P Pulse Ox O2 Delivery O2 Flow Rate FiO2 05/29/17 16:45 85 17 121/53 100 05/29/17 16:00 97.9 Mechanical Ventilator 05/29/17 13:50 30 Intake and Output 05/28/17 05/28/17 05/29/17 15:00 23:00 07:00 Intake Total 758.544 ml 786.301 ml 700.344 ml Output Total 240 ml 350 ml 350 ml Balance 518.544 ml 436.301 ml 350.344 ml Exam Respiratory: other (Patient is on vent) Cardiovascular: nl pulses, regular rate and rhythm Gastrointestinal: soft (Stoma is large but reducing in size) Extremities: normal pulses Neurological: unresponsive Results Result Diagram: 05/28/17 0515 05/29/17 0500 Results 24 hrs Laboratory Tests Test 05/28/17 21:07 05/29/17 01:19 05/29/17 05:00 05/29/17 05:11 Bedside Glucose 78 74 70 Sodium Level 134 L Potassium Level 3.7 Chloride Level 103 Carbon Dioxide Level 20 L Anion Gap 15 Blood Urea Nitrogen 22 H Creatinine 1.86 H Glucose Level 73 Calcium Level 8.6 Phosphorus Level 4.4 Magnesium Level 2.0 Test 05/29/17 07:56 05/29/17 08:42 05/29/17 12:11 05/29/17 16:34 Lactic Acid Level 1.4 Random Cortisol 16.7 Bedside Glucose 81 85 91 Medications Medications Current Medications Atorvastatin Calcium (Lipitor) 10 mg QHS GTB Last administered on 05/19/17 21: 00; Admin Dose 10 MG; Start 05/06/17 at 21:00 Bisacodyl (Dulcolax Supp) 10 mg Q48H TN Last administered on 05/22/17 16:38; Admin Dose 10 MG; Start 05/06/17 at 17:00 Carbidopa/Levodopa (Sinemet (25/ 100)) 1 tab TID GTB Last administered on 14:01; Admin Dose 1 TAB; Start 05/06/17 at 21:00 Clopidogrel Bisulfate (plaVIX) 75 mg DAILY GTB Last administered on 05/17/17 10:40; Admin Dose 75 MG; Start 05/07/17 at 09:00; Status Future Hold Donepezil HCl (Aricept) 10 mg QHS GTB Last administered on 05/19/17 21:00; Admin Dose 10 MG; Start 05/06/17 at 21:00 Ferrous Sulfate (Ferrous Sulfate (Ec)) 325 mg BID PO Last administered on 09:09; Admin Dose 325 MG; Start 05/06/17 at 21:00 Folic Acid (Folic Acid) 1 mg DAILY GTB Last administered on 05/22/17 09:09; Admin Dose 1 MG; Start 05/07/17 at 09:00 Lactobacillus Acidophilus/ Rhamnosus (Culturelle) 1 cap QHS GTB Last administered on 05/19/17 21:00; Admin Dose 1 CAP; Start 05/06/17 at 21:00 Magnesium Hydroxide (Milk Of Mag) 30 ml Q24H GTB Last administered on 05/22/17 16:38; Admin Dose 30 ML; Start 05/06/17 at 17:00 Memantine (Namenda) 5 mg QAM GTB Last administered on 05/22/17 09:10; Admin Dose 5 MG; Start 05/07/17 at 09:00 Metoprolol Tartrate (Lopressor) 25 mg Q12H GTB Last administered on 05/18/17 16:47; Admin Dose 25 MG; Start 05/06/17 at 17:00; Status Future Hold Multivit/Ca Carb/ B Cmplx/FA/Prenat (Radhika-John) 1 tab DAILY GTB Last administered on 05/22/17 09:09; Admin Dose 1 TAB; Start 05/07/17 at 09:00 Pramipexole (Mirapex) 0.5 mg DAILY GTB Last administered on 05/22/17 09:09; Admin Dose 0.5 MG; Start 05/07/17 at 09:00 Sodium Biphosphate/ Sodium Phosphate (Fleet Enema Pediatric) 118 ml Q72H PRN TN CONSTIPATION; Start 05/06/17 at 17:00 Citric Acid/ Sodium Citrate (Bicitra) 30 ml BID PO Last administered on 09:09; Admin Dose 30 ML; Start 05/06/17 at 21:00 Nystatin (Nystatin Powder) 1 applic BID TOP Last administered on 05/29/17 08:52 ; Admin Dose 1 APPLIC; Start 05/09/17 at 21:00 Collagenase (Santyl) 1 applic DAILY TOP Last administered on 05/29/17 08:52; Admin Dose 1 APPLIC; Start 05/09/17 at 15:00 Collagenase 1 applic 1 applic PRN PRN TOP WOUND CARE; Start 05/09/17 at 14:00 Norepinephrine 16 mg/Dextrose 500 ml @ 1.87 mls/hr TITRATE IV ; Start 05/10/17 at 14:00 Dopamine HCl/ Dextrose 250 ml @ 6.848 mls/ hr TITRATE IV Last administered on 05/29/17 08:45; Admin Dose 20.543 MLS/HR; Start 05/10/17 at 18:30 Miscellaneous Information 1 ea NOTE XX ; Start 05/11/17 at 08:00 Glucose (Glutose) 15 gm Q15M PRN PO DECREASED GLUCOSE; Start 05/11/17 at 08:00 Glucose (Glutose) 22.5 gm Q15M PRN PO DECREASED GLUCOSE; Start 05/11/17 at 08: 00 Dextrose (D50w Syringe) 25 ml Q15M PRN IV DECREASED GLUCOSE Last administered on 05/28/17 00:53; Admin Dose 25 ML; Start 05/11/17 at 08:00 Dextrose (D50w Syringe) 50 ml Q15M PRN IV DECREASED GLUCOSE Last administered on 05/15/17 00:11; Admin Dose 50 ML; Start 05/11/17 at 08:00 Glucagon (Glucagen) 1 mg Q15M PRN IM DECREASED GLUCOSE; Start 05/11/17 at 08:00 Glucose (Glutose) 15 gm Q15M PRN BUCCAL DECREASED GLUCOSE; Start 05/11/17 at 08 :00 Epoetin Vasyl (Epogen (Esrd)) 10,000 units MoWeFr@17 SC Last administered on 05/29 16:35; Admin Dose 10,000 UNITS; Start 05/13/17 at 17:00 IV Flush 10 ml 10 ml PRN PRN IV IV PROTOCOL; Start 05/15/17 at 17:30 Trimethoprim/ Sulfamethoxazole/ Dextrose (Bactrim/D5W) 260 ml @ 173.333 mls/hr Q8 IVPB Last administered on 05/29/17 14:40; Admin Dose 173.333 MLS/HR; Start 05/19/17 at 21:00 Amikacin Sulfate AMIKACIN PER PHARMACY NOTE XX ; Start 05/19/17 at 18:00 Cefepime HCl 0.5 gm/Sodium Chloride 100 ml @ 100 mls/hr Q24H IVPB Last administered on 05/28/17 21:04; Admin Dose 100 MLS/HR; Start 05/19/17 at 20:00 Amikacin Sulfate/ Sodium Chloride (Amikacin/NS) 101.4 ml @ 101.4 mls/ hr Q96H IVPB Last administered on 05/27/17 22:04; Admin Dose 101.4 MLS/HR; Start at 21:00 Midodrine (Proamatine) 10 mg TID@09,,17 GTB ; Start 05/23/17 at 09:00 Heparin Sodium (Porcine) (Heparin (5000 Units/0.5 ml)) 5,000 unit BID SC Last administered on 05/29/17 08:44; Admin Dose 5,000 UNIT; Start 05/23/17 at 09:00 Insulin Aspart NOVOLOG *MILD* ALGORI... Q4 SC Last administered on 05/27/17 04: 50; Admin Dose 1 UNIT; Start 05/26/17 at 09:00 Total Parenteral Nutrition 1,000 ml @ 40 mls/hr Q24H IV Last administered on 14:40; Admin Dose 40 MLS/HR; Start 05/27/17 at 14:00 Fat Emulsion Intravenous (Liposyn Ii 20%) 250 ml @ 31.25 mls/ hr Q24H IV Last administered on 05/29/17 10:42; Admin Dose 31.25 MLS/HR; Start 05/28/17 at 10:00 Famotidine 20 mg 20 mg DAILY IV Last administered on 05/29/17 08:42; Admin Dose 20 MG; Start 05/29/17 at 09:00 Dextrose/Sodium Chloride (D5-1/2ns) 1,000 ml @ 50 mls/hr Q20H IV Last administered on 05/29/17 08:17; Admin Dose 50 MLS/HR; Start 05/29/17 at 07:30 SYLWIA SY MD May 29, 2017 16:54
[2017-05-29] MEDS: ATORVASTATIN 10 MG TAB GTB SCH ×3 (21:00→22:26)
[2017-05-29] MEDS: LACTOBACILLUS RHAMNOSUS CAP GTB SCH ×3 (21:00→22:27)
[2017-05-29] MEDS: DONEPEZIL 10 MG TAB GTB SCH ×3 (21:00→22:27)
[2017-05-29] MEDS: CEFEPIME HCL 0.5 GM in SOD CHLORIDE 0.9% 100 ML IVPB SCH (22:01)
[2017-05-30] VITALS (92 sets, daily range): BP systolic 69–142; BP diastolic 28–84; PULSE 73–93; RESP 12–25
[2017-05-30] MEDS: INSULIN ASPART [NOVOLOG] 3 ML PEN SC SCH ×6 (01:00→21:00)
[2017-05-30] MEDS: DEXTROSE 5%-0.45% NACL 1,000 ML IV SCH (03:30)
[2017-05-30] MEDS: TRIMETHOPRIM/SULFAMETHOXAZOLE 10 ML in DEXTROSE 5% 250 ML IVPB SCH ×3 (06:06→22:03)
[2017-05-30 06:27] LABS: CALCIUM 8.1 mg/dl (8.4-10.2); CREATININE 1.67 mg/dl (0.44-1.00); MAGNESIUM 1.8 mg/dl (1.7-2.5); PHOSPHORUS 4.2 mg/dl (2.5-4.9); POTASSIUM 3.6 mmol/L (3.5-5.1)
--- NOTE | 2017-05-30 07:40 | CONS ---
Date/Time of Note Date/Time of Note DATE: 05/30/17 TIME: 07:38 Consult Date/Type/Reason Admit Date/Time May 06, 2017 at 16:34 Initial Consult Date 05/22/17 Type of Consultation: cardiology Subjective CARDIOLOGY FOLLOW UP NOTE: Discussed with staff and rhythm was reviewed d/w Dr Rosas pt remains in NSR. NO AFIB seen pt remains NONVERBAL. pt is still ICU on dopamine drip still unable to wean off so far. pt is on TPN now. OBJECTIVE: General: no acute distress. s/p trach on vent. HEENT: NC/AT. NECK: NO JVD. no stridor. S/P trach on vent CV: RRR. systolic murmur; no gallop or rubs. PULM: no wheezing anteriorly GI: SOFT, NT, ND, no rebound or guarding s/p dressing at the site of previous G tube Extremity: + B/L LE and UE edema. no clubbing. neuro: opens her eyes to painful stimuli. does not follow commands Psych: calm rectal: deferred Objective Vital Signs Date Time Temp Pulse Resp B/P Pulse Ox O2 Delivery O2 Flow Rate FiO2 05/30/17 05:15 78 19 100 30 05/30/17 00:45 108/64 05/30/17 00:30 Mechanical Ventilator 05/30/17 00:00 97.6 Intake and Output 05/29/17 05/29/17 05/30/17 15:00 23:00 07:00 Intake Total 1213.927 ml 1123.586 ml 921.8 ml Output Total 270 ml 565 ml 500 ml Balance 943.927 ml 558.586 ml 421.8 ml Results/Medications Result Diagram: 05/28/17 0515 05/30/17 0345 Results 24 hrs Laboratory Tests Test 05/29/17 07:56 05/29/17 08:42 05/29/17 12:11 05/29/17 16:34 Lactic Acid Level 1.4 Random Cortisol 16.7 Bedside Glucose 81 85 91 Test 05/29/17 22:00 05/30/17 01:38 05/30/17 03:45 05/30/17 06:03 Bedside Glucose 96 79 79 Sodium Level 130 L Potassium Level 3.6 Chloride Level 101 Carbon Dioxide Level 17 L Anion Gap 16 Blood Urea Nitrogen 19 Creatinine 1.67 H Glucose Level 295 #H Calcium Level 8.1 L Phosphorus Level 4.2 Magnesium Level 1.8 Random Cortisol 15.3 Medications Current Medications Atorvastatin Calcium (Lipitor) 10 mg QHS GTB Last administered on 05/19/17 21: 00; Admin Dose 10 MG; Start 05/06/17 at 21:00 Bisacodyl (Dulcolax Supp) 10 mg Q48H MS Last administered on 05/22/17 16:38; Admin Dose 10 MG; Start 05/06/17 at 17:00 Carbidopa/Levodopa (Sinemet (25/ 100)) 1 tab TID GTB Last administered on 22:02; Admin Dose 1 TAB; Start 05/06/17 at 21:00 Clopidogrel Bisulfate (plaVIX) 75 mg DAILY GTB Last administered on 05/17/17 10:40; Admin Dose 75 MG; Start 05/07/17 at 09:00; Status Future Hold Donepezil HCl (Aricept) 10 mg QHS GTB Last administered on 05/19/17 21:00; Admin Dose 10 MG; Start 05/06/17 at 21:00 Ferrous Sulfate (Ferrous Sulfate (Ec)) 325 mg BID PO Last administered on 09:09; Admin Dose 325 MG; Start 05/06/17 at 21:00 Folic Acid (Folic Acid) 1 mg DAILY GTB Last administered on 05/22/17 09:09; Admin Dose 1 MG; Start 05/07/17 at 09:00 Lactobacillus Acidophilus/ Rhamnosus (Culturelle) 1 cap QHS GTB Last administered on 05/19/17 21:00; Admin Dose 1 CAP; Start 05/06/17 at 21:00 Magnesium Hydroxide (Milk Of Mag) 30 ml Q24H GTB Last administered on 05/22/17 16:38; Admin Dose 30 ML; Start 05/06/17 at 17:00 Memantine (Namenda) 5 mg QAM GTB Last administered on 05/22/17 09:10; Admin Dose 5 MG; Start 05/07/17 at 09:00 Metoprolol Tartrate (Lopressor) 25 mg Q12H GTB Last administered on 05/18/17 16:47; Admin Dose 25 MG; Start 05/06/17 at 17:00; Status Future Hold Multivit/Ca Carb/ B Cmplx/FA/Prenat (Radhika-John) 1 tab DAILY GTB Last administered on 05/22/17 09:09; Admin Dose 1 TAB; Start 05/07/17 at 09:00 Pramipexole (Mirapex) 0.5 mg DAILY GTB Last administered on 05/22/17 09:09; Admin Dose 0.5 MG; Start 05/07/17 at 09:00 Sodium Biphosphate/ Sodium Phosphate (Fleet Enema Pediatric) 118 ml Q72H PRN MS CONSTIPATION; Start 05/06/17 at 17:00 Citric Acid/ Sodium Citrate (Bicitra) 30 ml BID PO Last administered on 09:09; Admin Dose 30 ML; Start 05/06/17 at 21:00 Nystatin (Nystatin Powder) 1 applic BID TOP Last administered on 05/29/17 22:05 ; Admin Dose 1 APPLIC; Start 05/09/17 at 21:00 Collagenase (Santyl) 1 applic DAILY TOP Last administered on 05/29/17 08:52; Admin Dose 1 APPLIC; Start 05/09/17 at 15:00 Collagenase 1 applic 1 applic PRN PRN TOP WOUND CARE; Start 05/09/17 at 14:00 Norepinephrine 16 mg/Dextrose 500 ml @ 1.87 mls/hr TITRATE IV ; Start 05/10/17 at 14:00 Dopamine HCl/ Dextrose 250 ml @ 6.848 mls/ hr TITRATE IV Last administered on 05/29/17 20:42; Admin Dose 20.317 MLS/HR; Start 05/10/17 at 18:30 Miscellaneous Information 1 ea NOTE XX ; Start 05/11/17 at 08:00 Glucose (Glutose) 15 gm Q15M PRN PO DECREASED GLUCOSE; Start 05/11/17 at 08:00 Glucose (Glutose) 22.5 gm Q15M PRN PO DECREASED GLUCOSE; Start 05/11/17 at 08: 00 Dextrose (D50w Syringe) 25 ml Q15M PRN IV DECREASED GLUCOSE Last administered on 05/28/17 00:53; Admin Dose 25 ML; Start 05/11/17 at 08:00 Dextrose (D50w Syringe) 50 ml Q15M PRN IV DECREASED GLUCOSE Last administered on 05/15/17 00:11; Admin Dose 50 ML; Start 05/11/17 at 08:00 Glucagon (Glucagen) 1 mg Q15M PRN IM DECREASED GLUCOSE; Start 05/11/17 at 08:00 Glucose (Glutose) 15 gm Q15M PRN BUCCAL DECREASED GLUCOSE; Start 05/11/17 at 08 :00 Epoetin Vasyl (Epogen (Esrd)) 10,000 units MoWeFr@17 SC Last administered on 05/29 16:35; Admin Dose 10,000 UNITS; Start 05/13/17 at 17:00 IV Flush 10 ml 10 ml PRN PRN IV IV PROTOCOL; Start 05/15/17 at 17:30 Trimethoprim/ Sulfamethoxazole/ Dextrose (Bactrim/D5W) 260 ml @ 173.333 mls/hr Q8 IVPB Last administered on 05/30/17 06:06; Admin Dose 173.333 MLS/HR; Start 05/19/17 at 21:00 Amikacin Sulfate AMIKACIN PER PHARMACY NOTE XX ; Start 05/19/17 at 18:00 Cefepime HCl 0.5 gm/Sodium Chloride 100 ml @ 100 mls/hr Q24H IVPB Last administered on 05/29/17 22:01; Admin Dose 100 MLS/HR; Start 05/19/17 at 20:00 Amikacin Sulfate/ Sodium Chloride (Amikacin/NS) 101.4 ml @ 101.4 mls/ hr Q96H IVPB Last administered on 05/27/17 22:04; Admin Dose 101.4 MLS/HR; Start at 21:00 Midodrine (Proamatine) 10 mg TID@,,17 GTB ; Start 05/23/17 at 09:00 Heparin Sodium (Porcine) (Heparin (5000 Units/0.5 ml)) 5,000 unit BID SC Last administered on 05/29/17 22:09; Admin Dose 5,000 UNIT; Start 05/23/17 at 09:00 Insulin Aspart NOVOLOG *MILD* ALGORI... Q4 SC Last administered on 05/27/17 04: 50; Admin Dose 1 UNIT; Start 05/26/17 at 09:00 Total Parenteral Nutrition 1,000 ml @ 40 mls/hr Q24H IV Last administered on 14:40; Admin Dose 40 MLS/HR; Start 05/27/17 at 14:00 Fat Emulsion Intravenous (Liposyn Ii 20%) 250 ml @ 31.25 mls/ hr Q24H IV Last administered on 05/29/17 10:42; Admin Dose 31.25 MLS/HR; Start 05/28/17 at 10:00 Famotidine 20 mg 20 mg DAILY IV Last administered on 05/29/17 08:42; Admin Dose 20 MG; Start 05/29/17 at 09:00 Dextrose/Sodium Chloride (D5-1/2ns) 1,000 ml @ 50 mls/hr Q20H IV Last administered on 05/30/17 03:30; Admin Dose 50 MLS/HR; Start 05/29/17 at 07:30 Assessment/Plan Chief Complaint/Hosp Course 1. hypoxemic resp failure: s/p trach 2. Pafib; currently in NSR 3. hx HTN: now in shock and hypotensive. : STILL requires DOPAMINE DRIP 4. encephalopathy 5. renal failure: f/u with nephrology 6. dysphagia 7. G tube malfunction/ infection: unable to repair by GI. 8. GI bleed 9. severe anemia 10. malnutrition 11. anasarca and fluid overload. will cont dopamine drip and titrate off once BP remains stable. cont resp care nutritional support. CONT ICU care as long as pt is on pressors correct lytes prn off of PLAVIX DUE TO ANEMIA/ BLEEDING. pt is also NPO. F/U with GI and surgery rec. nutritional support. consider trial of lasix +/- albumin? CODE STATUS IS chemical code only now. THANK YOU. Problems: MILAGROS MUNOZ MD May 30, 2017 07:40
--- NOTE | 2017-05-30 08:39 | PN ---
DATE: 05/30/2017 SUBJECTIVE DATA: The patient remains critical but stable. Remains on presser support. No other events noted. No hemoptysis, hematemesis, hematochezia. The patient is pending eventual J-tube placement. OBJECTIVE DATA: VITAL SIGNS: Blood pressure is 108/64, respirations 17, pulse 85, temperature 98.7. HEENT: Head is normocephalic. Normocephalic. Neck shows trach. HEART: Regular rate. LUNGS: Diminished breath sounds at the base. ABDOMEN: Soft, nontender to palpation. No rebound or guarding. EXTREMITIES: Negative for clubbing, cyanosis. Positive edema. DERMATOLOGIC: No rashes. MUSCULOSKELETAL: No joint effusion. NEUROLOGIC: No change in exam. The patient's medications have been reviewed. LABORATORY AND DIAGNOSTIC DATA: Sodium 130, potassium 3.6, chloride 101. BUN 19, creatinine 1.67. White count 5.0, hemoglobin 9.8, hematocrit 9.8; platelet count is 169. The patient's random cortisol level was 15.3. ASSESSMENT AND PLAN: 1. Shock. Etiology is presumed to be septic. The possibility of adrenal insufficiency is also a consideration as the patient's cortisol level, although within normal limits, may be inappropriately low. The plan at this point is to continue pressor support. Continue antibiotic therapy. Continue IV fluids. Will place an Endocrine consult for evaluation and give the patient a course of stress steroids. Monitor closely. 2. Questionable adrenal insufficiency. The patient's cortisol level was within normal limits but possibly inappropriately low. The patient may require cosyntropin stem test. Will place an Endocrine consult for further evaluation and monitor. 3. Anemia. Monitor hemoglobin and hematocrit levels. The patient is status post Epogen. 4. Gastrocutaneous fistula. The patient is pending jejunal- tube placement once clinically stable. 5. Ventilatory-dependent respiratory failure. Ventilator settings have been reviewed. Arterial blood gases reviewed. Continue to monitor. Follow up with Pulmonary. 6. Nonoliguric acute kidney injury on top of chronic kidney disease. Etiology secondary to hemodynamics. Renal function has been stable. Continue current treatment plan. 7. Acute encephalopathy and advanced dementia. Etiology toxic metabolic. Continue to monitor. 8. Mineral bone disorder. Monitor calcium and phosphorus levels. 9. Volume overload. The patient has noted lower extremity edema. Will attempt gentle diuresis with albumin. 10. Diabetes. Continue Accu-Cheks and sliding scale. 11. Gastrointestinal and deep venous thrombosis prophylaxis. Continue proton-pump inhibitor and heparin. 12. Nutrition. Continue total parenteral nutrition. 13. Decubitus wound. Continue wound care. The patient continues to be followed by General Surgery. Dictated By: Brendan Rosas DO /junie/lloyd /Document#: [id number]
[2017-05-30] MEDS: MEMANTINE 5 MG TAB GTB SCH (09:00)
[2017-05-30] MEDS: MIDODRINE 5 MG TAB GTB SCH ×3 (09:00→17:00)
[2017-05-30] MEDS: MULTIVIT/CA CARB/B CMPLX/FA TAB GTB SCH (09:00)
[2017-05-30] MEDS: CARBIDOPA/LEVODOPA (25/100) TAB GTB SCH ×3 (09:00→20:24)
[2017-05-30] MEDS: PRAMIPEXOLE 0.25 MG TAB GTB SCH (09:00)
[2017-05-30] MEDS: DOPamine-D5W 1.6 MG/ML 250 ML IV SCH (10:11)
[2017-05-30] MEDS: HEPARIN 5,000 UNIT/0.5 ML VIAL SC SCH ×2 (10:14→20:17)
--- NOTE | 2017-05-30 10:14 | PN ---
Date/Time of Note Date/Time of Note DATE: 05/30/17 TIME: 10:08 Assessment/Plan Lines/Catheters IV Catheter Type (from Nrs): PICC Line Collazo in Place (from Nrs): Yes Assessment/Plan Chief Complaint/Hosp Course 1. G-tube dislodgement: replaced with gjtube by GI, continued yellow drainage peristomal; gj tube replacement attempt-unable due to too large of an opening; continued on pressors; Now chemical code; currently on tpn -hospice/palliative is likely the best option for this patient -consider nj tube for meds/nutrition in the interim -possible surgical placement of jtube when medically stable-off pressors 2. Septic shock: multifactorial: 2/2: pneumonia + cellulitis + wounds; persistent, continued on pressors -abx -supportive 3. Respiratory failure with trach: PNA with pulm edema; comfortable on vent; mod sputum -pulmonary toilet -abx -supportive 4.STARLA with CKD; +urine output; improved cr -judicious fluids -renally dose meds -per nephrology 5. Normocytic anemia: previous coffee ground drainage peristoma;no acute bleed noted -monitor and transfuse as needed -continue Epogen 6. CHF -medical management 7. Diabetes with hypoglycemia -medical management 8. Acute encephalopathy with history of advanced dementia; unchanged neurologically -supportive 9. Decubitus wound. -continue wound care. 10. Peristomal cellulitis 2/2 #1; +pseudomonas: improving -local care -abx per sensitivity 11. Pancytopenia: improving 12. Hypotension: on pressors, unable to be weaned off; ?adrenal insufficiency -endocrine consult Patient seen and examined in collaboration with Dr. Meliton Blackburn. Thank you. Problems: Subjective 24 Hr Interval Summary No acute changes. continues on pressors and vent. Comfortable on vent. Congested cough. Nonverbal indicators of pain not present. parastomal drainage to ostomy bag. No sob, fevers, chills, sz, rash. Exam/Review of Systems Vital Signs Vitals Vital Signs Date Time Temp Pulse Resp B/P Pulse Ox O2 Delivery O2 Flow Rate FiO2 05/30/17 07:00 79 19 69/38 100 Mechanical Ventilator 05/30/17 05:15 30 05/30/17 04:00 97.7 Intake and Output 05/29/17 05/29/1717 15:00 23:00 07:00 Intake Total 1213.927 ml 1123.586 ml 921.8 ml Output Total 270 ml 565 ml 500 ml Balance 943.927 ml 558.586 ml 421.8 ml Exam Free Text/Dictation Constitutional: alert, non-verbal, awake, nonresponsive No oriented Psych: confusion, withdraws from pain Head: atraumatic, normocephalic Eyes: nl sclera ENMT: mucosa pink and moist, missing teeth Neck: non-tender, other (trach), supple Respiratory: rhonchi Cardiovascular: edema Gastrointestinal: distended (mod), other (stoma cont to leak copious yellow drainage to ostomy bag), soft, nontender Musculoskeletal: No muscle tone Extremities: edema Neurological: No nl mental status, No nl speech Skin: other (abdominal/peristomal/breast fold redness, moisture damage/ cellulitis) Results Result Diagram: 05/28/17 0515 05/30/17 0345 SHADI CALDERON NP May 30, 2017 10:14
[2017-05-30] MEDS: FOLIC ACID 1 MG TAB GTB SCH (10:16)
[2017-05-30] MEDS: COLLAGENASE 30 GM TUBE TOP SCH (10:18)
[2017-05-30] MEDS: NYSTATIN 30 GM POWDER BTL TOP SCH ×2 (10:18→20:25)
--- NOTE | 2017-05-30 10:19 | CONS ---
Date/Time of Note Date/Time of Note DATE: 05/30/17 TIME: 10:18 Assessment/Plan Assessment/Plan Chief Complaint/Hosp Course This 69-year-old female with a history of CVA vent dependent respiratory failure , was brought to the emergency room for the dislodgment of the GJ tube. Patient is nonverbal and no information can be obtained. No GI bleeding no chest pain no shortness of breath. Problems: Additional Assessment/Plan Additional Assessment/Plan Additional Assessment/Plan 1. Dislodged GJ tube accidentally 2. Vent dependent respiratory failure 3. Chronic encephalopathy 4. Renal failure 5. Peripheral vascular disease 6. Anemia 7. Large gastrocutaneous fistula, endoscopically it is not possible to keep the largest diameter GJ tube in place 8. Hypotension needs dopamine to maintain the blood pressure 9. Decubitus ulcer 10. Workup for adrenal insufficiency Plan Continue all supportive care Surgery to fix the gastrocutaneous fistula once patient is off dopamine Plan Consultation Date/Type/Reason Admit Date/Time May 06, 2017 at 16:34 Type of Consultation: cardiology 24 HR Interval Summary Subjective hx not possible: pt non-verbal, pt critical Exam/Review of Systems Vital Signs Vitals Vital Signs Date Time Temp Pulse Resp B/P Pulse Ox O2 Delivery O2 Flow Rate FiO2 05/30/17 07:00 79 19 69/38 100 Mechanical Ventilator 05/30/17 05:15 30 05/30/17 04:00 97.7 Intake and Output 05/29/17 05/29/17 05/30/17 15:00 23:00 07:00 Intake Total 1213.927 ml 1123.586 ml 921.8 ml Output Total 270 ml 565 ml 500 ml Balance 943.927 ml 558.586 ml 421.8 ml Exam Respiratory: other (Patient is on vent) Cardiovascular: nl pulses, regular rate and rhythm Gastrointestinal: nl liver, spleen, non-tender, soft Musculoskeletal: nl extremities to inspection, nl gait and stance Extremities: normal pulses Neurological: unresponsive Results Result Diagram: 05/28/17 0515 05/30/17 0345 Results 24 hrs Laboratory Tests Test 05/29/17 12:11 05/29/17 16:34 05/29/17 22:00 05/30/17 01:38 Bedside Glucose 85 91 96 79 Test 05/30/17 03:45 05/30/17 06:03 05/30/17 10:15 Sodium Level 130 L Potassium Level 3.6 Chloride Level 101 Carbon Dioxide Level 17 L Anion Gap 16 Blood Urea Nitrogen 19 Creatinine 1.67 H Glucose Level 295 #H Calcium Level 8.1 L Phosphorus Level 4.2 Magnesium Level 1.8 Random Cortisol 15.3 Bedside Glucose 79 75 Medications Medications Current Medications Atorvastatin Calcium (Lipitor) 10 mg QHS GTB Last administered on 05/19/17 21: 00; Admin Dose 10 MG; Start 05/06/17 at 21:00 Bisacodyl (Dulcolax Supp) 10 mg Q48H [place] Last administered on 05/22/17 16:38; Admin Dose 10 MG; Start 05/06/17 at 17:00 Carbidopa/Levodopa (Sinemet (25/ )) 1 tab TID GTB Last administered on 22:02; Admin Dose 1 TAB; Start 05/06/17 at 21:00 Clopidogrel Bisulfate (plaVIX) 75 mg DAILY GTB Last administered on 05/17/17 10:40; Admin Dose 75 MG; Start 05/07/17 at 09:00; Status Future Hold Donepezil HCl (Aricept) 10 mg QHS GTB Last administered on 05/19/17 21:00; Admin Dose 10 MG; Start 05/06/17 at 21:00 Ferrous Sulfate (Ferrous Sulfate (Ec)) 325 mg BID PO Last administered on 09:09; Admin Dose 325 MG; Start 05/06/17 at 21:00 Folic Acid (Folic Acid) 1 mg DAILY GTB Last administered on 05/22/17 09:09; Admin Dose 1 MG; Start 05/07/17 at 09:00 Lactobacillus Acidophilus/ Rhamnosus (Culturelle) 1 cap QHS GTB Last administered on 05/19/17 21:00; Admin Dose 1 CAP; Start 05/06/17 at 21:00 Magnesium Hydroxide (Milk Of Mag) 30 ml Q24H GTB Last administered on 05/22/17 16:38; Admin Dose 30 ML; Start 05/06/17 at 17:00 Memantine (Namenda) 5 mg QAM GTB Last administered on 05/22/17 09:10; Admin Dose 5 MG; Start 05/07/17 at 09:00 Metoprolol Tartrate (Lopressor) 25 mg Q12H GTB Last administered on 05/18/17 16:47; Admin Dose 25 MG; Start 05/06/17 at 17:00; Status Future Hold Multivit/Ca Carb/ B Cmplx/FA/Prenat (Radhika-John) 1 tab DAILY GTB Last administered on 05/22/17 09:09; Admin Dose 1 TAB; Start 05/07/17 at 09:00 Pramipexole (Mirapex) 0.5 mg DAILY GTB Last administered on 05/22/17 09:09; Admin Dose 0.5 MG; Start 05/07/17 at 09:00 Sodium Biphosphate/ Sodium Phosphate (Fleet Enema Pediatric) 118 ml Q72H PRN [place] CONSTIPATION; Start 05/06/17 at 17:00 Citric Acid/ Sodium Citrate (Bicitra) 30 ml BID PO Last administered on 09:09; Admin Dose 30 ML; Start 05/06/17 at 21:00 Nystatin (Nystatin Powder) 1 applic BID TOP Last administered on 05/29/17 22:05 ; Admin Dose 1 APPLIC; Start 05/09/17 at 21:00 Collagenase (Santyl) 1 applic DAILY TOP Last administered on 05/29/17 08:52; Admin Dose 1 APPLIC; Start 05/09/17 at 15:00 Collagenase 1 applic 1 applic PRN PRN TOP WOUND CARE; Start 05/09/17 at 14:00 Norepinephrine 16 mg/Dextrose 500 ml @ 1.87 mls/hr TITRATE IV ; Start 05/10/17 at 14:00 Dopamine HCl/ Dextrose 250 ml @ 6.848 mls/ hr TITRATE IV Last administered on 05/29/17 20:42; Admin Dose 20.317 MLS/HR; Start 05/10/17 at 18:30 Miscellaneous Information 1 ea NOTE XX ; Start 05/11/17 at 08:00 Glucose (Glutose) 15 gm Q15M PRN PO DECREASED GLUCOSE; Start 05/11/17 at 08:00 Glucose (Glutose) 22.5 gm Q15M PRN PO DECREASED GLUCOSE; Start 05/11/17 at 08: 00 Dextrose (D50w Syringe) 25 ml Q15M PRN IV DECREASED GLUCOSE Last administered on 05/28/17 00:53; Admin Dose 25 ML; Start 05/11/17 at 08:00 Dextrose (D50w Syringe) 50 ml Q15M PRN IV DECREASED GLUCOSE Last administered on 05/15/17 00:11; Admin Dose 50 ML; Start 05/11/17 at 08:00 Glucagon (Glucagen) 1 mg Q15M PRN IM DECREASED GLUCOSE; Start 05/11/17 at 08:00 Glucose (Glutose) 15 gm Q15M PRN BUCCAL DECREASED GLUCOSE; Start 05/11/17 at 08 :00 Epoetin Vasyl (Epogen (Esrd)) 10,000 units MoWeFr@17 SC Last administered on 05/29 16:35; Admin Dose 10,000 UNITS; Start 05/13/17 at 17:00 IV Flush 10 ml 10 ml PRN PRN IV IV PROTOCOL; Start 05/15/17 at 17:30 Trimethoprim/ Sulfamethoxazole/ Dextrose (Bactrim/D5W) 260 ml @ 173.333 mls/hr Q8 IVPB Last administered on 05/30/17 06:06; Admin Dose 173.333 MLS/HR; Start 05/19/17 at 21:00 Amikacin Sulfate AMIKACIN PER PHARMACY NOTE XX ; Start 05/19/17 at 18:00 Cefepime HCl 0.5 gm/Sodium Chloride 100 ml @ 100 mls/hr Q24H IVPB Last administered on 05/29/17 22:01; Admin Dose 100 MLS/HR; Start 05/19/17 at 20:00 Amikacin Sulfate/ Sodium Chloride (Amikacin/NS) 101.4 ml @ 101.4 mls/ hr Q96H IVPB Last administered on 05/27/17 22:04; Admin Dose 101.4 MLS/HR; Start at 21:00 Midodrine (Proamatine) 10 mg TID@,,17 GTB ; Start 05/23/17 at 09:00 Heparin Sodium (Porcine) (Heparin (5000 Units/0.5 ml)) 5,000 unit BID SC Last administered on 05/29/17 22:09; Admin Dose 5,000 UNIT; Start 05/23/17 at 09:00 Insulin Aspart NOVOLOG *MILD* ALGORI... Q4 SC Last administered on 05/27/17 04: 50; Admin Dose 1 UNIT; Start 05/26/17 at 09:00 Total Parenteral Nutrition 1,000 ml @ 40 mls/hr Q24H IV Last administered on 14:40; Admin Dose 40 MLS/HR; Start 05/27/17 at 14:00 Fat Emulsion Intravenous (Liposyn Ii 20%) 250 ml @ 31.25 mls/ hr Q24H IV Last administered on 05/29/17 10:42; Admin Dose 31.25 MLS/HR; Start 05/28/17 at 10:00 Famotidine 20 mg 20 mg DAILY IV Last administered on 05/29/17 08:42; Admin Dose 20 MG; Start 05/29/17 at 09:00 Dextrose/Sodium Chloride (D5-NS) 1,000 ml @ 50 mls/hr Q20H IV ; Start 05/30/17 at 08:30 Hydrocortisone (Solu-Cortef) 50 mg Q8 IV ; Start 05/30/17 at 14:00 SYLWIA SY MD May 30, 2017 10:19
--- NOTE | 2017-05-30 10:22 | CONS ---
Date/Time of Note Date/Time of Note DATE: 05/30/17 TIME: 10:21 Consult Date/Type/Reason Admit Date/Time May 06, 2017 at 16:34 Initial Consult Date 05/10/17 Type of Consultation: Pulmonary Subjective No significant changes. Continues vasopressors dopamine at 5 mcg Objective Vital Signs Date Time Temp Pulse Resp B/P Pulse Ox O2 Delivery O2 Flow Rate FiO2 05/30/17 07:00 79 19 69/38 100 Mechanical Ventilator 05/30/17 05:15 30 05/30/17 04:00 97.7 Intake and Output 05/29/17 05/29/17 05/30/17 15:00 23:00 07:00 Intake Total 1213.927 ml 1123.586 ml 921.8 ml Output Total 270 ml 565 ml 500 ml Balance 943.927 ml 558.586 ml 421.8 ml Exam PHYSICAL EXAMINATION GENERAL: Elderly lady chronically ill-appearing on mechanical ventilation via tracheostomy VITAL SIGNS: see below. HEENT: Pupils equal, round, and reactive to light. Tracheostomy site clean and intact. CARDIAC: S1, S2, 2/6 systolic ejection murmur CHEST: Diminished air entry bilaterally. ABDOMEN: Mildly distended. Bowel sounds present no guarding or rebound EXTREMITIES: No cyanosis, clubbing edema +2 NEUROLOGIC: Generalized weakness Results/Medications Result Diagram: 05/28/17 0515 05/30/17 0345 Results 24 hrs Laboratory Tests Test 05/29/17 12:11 05/29/17 16:34 05/29/17 22:00 05/30/17 01:38 Bedside Glucose 85 91 96 79 Test 05/30/17 03:45 05/30/17 06:03 05/30/17 10:15 Sodium Level 130 L Potassium Level 3.6 Chloride Level 101 Carbon Dioxide Level 17 L Anion Gap 16 Blood Urea Nitrogen 19 Creatinine 1.67 H Glucose Level 295 #H Calcium Level 8.1 L Phosphorus Level 4.2 Magnesium Level 1.8 Random Cortisol 15.3 Bedside Glucose 79 75 Medications Current Medications Atorvastatin Calcium (Lipitor) 10 mg QHS GTB Last administered on 05/19/17 21: 00; Admin Dose 10 MG; Start 05/06/17 at 21:00 Bisacodyl (Dulcolax Supp) 10 mg Q48H [place] Last administered on 05/22/17 16:38; Admin Dose 10 MG; Start 05/06/17 at 17:00 Carbidopa/Levodopa (Sinemet (25/ 100)) 1 tab TID GTB Last administered on 22:02; Admin Dose 1 TAB; Start 05/06/17 at 21:00 Clopidogrel Bisulfate (plaVIX) 75 mg DAILY GTB Last administered on 05/17/17 10:40; Admin Dose 75 MG; Start 05/07/17 at 09:00; Status Future Hold Donepezil HCl (Aricept) 10 mg QHS GTB Last administered on 05/19/17 21:00; Admin Dose 10 MG; Start 05/06/17 at 21:00 Ferrous Sulfate (Ferrous Sulfate (Ec)) 325 mg BID PO Last administered on 09:09; Admin Dose 325 MG; Start 05/06/17 at 21:00 Folic Acid (Folic Acid) 1 mg DAILY GTB Last administered on 05/22/17 09:09; Admin Dose 1 MG; Start 05/07/17 at 09:00 Lactobacillus Acidophilus/ Rhamnosus (Culturelle) 1 cap QHS GTB Last administered on 05/19/17 21:00; Admin Dose 1 CAP; Start 05/06/17 at 21:00 Magnesium Hydroxide (Milk Of Mag) 30 ml Q24H GTB Last administered on 05/22/17 16:38; Admin Dose 30 ML; Start 05/06/17 at 17:00 Memantine (Namenda) 5 mg QAM GTB Last administered on 05/22/17 09:10; Admin Dose 5 MG; Start 05/07/17 at 09:00 Metoprolol Tartrate (Lopressor) 25 mg Q12H GTB Last administered on 05/18/17 16:47; Admin Dose 25 MG; Start 05/06/17 at 17:00; Status Future Hold Multivit/Ca Carb/ B Cmplx/FA/Prenat (Radhika-John) 1 tab DAILY GTB Last administered on 05/22/17 09:09; Admin Dose 1 TAB; Start 05/07/17 at 09:00 Pramipexole (Mirapex) 0.5 mg DAILY GTB Last administered on 05/22/17 09:09; Admin Dose 0.5 MG; Start 05/07/17 at 09:00 Sodium Biphosphate/ Sodium Phosphate (Fleet Enema Pediatric) 118 ml Q72H PRN [place] CONSTIPATION; Start 05/06/17 at 17:00 Citric Acid/ Sodium Citrate (Bicitra) 30 ml BID PO Last administered on 09:09; Admin Dose 30 ML; Start 05/06/17 at 21:00 Nystatin (Nystatin Powder) 1 applic BID TOP Last administered on 05/30/17 10: 18; Admin Dose 1 APPLIC; Start 05/09/17 at 21:00 Collagenase (Santyl) 1 applic DAILY TOP Last administered on 05/30/17 10:18; Admin Dose 1 APPLIC; Start 05/09/17 at 15:00 Collagenase 1 applic 1 applic PRN PRN TOP WOUND CARE; Start 05/09/17 at 14:00 Norepinephrine 16 mg/Dextrose 500 ml @ 1.87 mls/hr TITRATE IV ; Start 05/10/17 at 14:00 Dopamine HCl/ Dextrose 250 ml @ 6.848 mls/ hr TITRATE IV Last administered on 05/30/17 10:11; Admin Dose 20.543 MLS/HR; Start 05/10/17 at 18:30 Miscellaneous Information 1 ea NOTE XX ; Start 05/11/17 at 08:00 Glucose (Glutose) 15 gm Q15M PRN PO DECREASED GLUCOSE; Start 05/11/17 at 08:00 Glucose (Glutose) 22.5 gm Q15M PRN PO DECREASED GLUCOSE; Start 05/11/17 at 08: 00 Dextrose (D50w Syringe) 25 ml Q15M PRN IV DECREASED GLUCOSE Last administered on 05/28/17 00:53; Admin Dose 25 ML; Start 05/11/17 at 08:00 Dextrose (D50w Syringe) 50 ml Q15M PRN IV DECREASED GLUCOSE Last administered on 05/15/17 00:11; Admin Dose 50 ML; Start 05/11/17 at 08:00 Glucagon (Glucagen) 1 mg Q15M PRN IM DECREASED GLUCOSE; Start 05/11/17 at 08:00 Glucose (Glutose) 15 gm Q15M PRN BUCCAL DECREASED GLUCOSE; Start 05/11/17 at 08 :00 Epoetin Vasyl (Epogen (Esrd)) 10,000 units MoWeFr@17 SC Last administered on 05/29 16:35; Admin Dose 10,000 UNITS; Start 05/13/17 at 17:00 IV Flush 10 ml 10 ml PRN PRN IV IV PROTOCOL; Start 05/15/17 at 17:30 Trimethoprim/ Sulfamethoxazole/ Dextrose (Bactrim/D5W) 260 ml @ 173.333 mls/hr Q8 IVPB Last administered on 05/30/17 06:06; Admin Dose 173.333 MLS/HR; Start 05/19/17 at 21:00 Amikacin Sulfate AMIKACIN PER PHARMACY NOTE XX ; Start 05/19/17 at 18:00 Cefepime HCl 0.5 gm/Sodium Chloride 100 ml @ 100 mls/hr Q24H IVPB Last administered on 05/29/17 22:01; Admin Dose 100 MLS/HR; Start 05/19/17 at 20:00 Amikacin Sulfate/ Sodium Chloride (Amikacin/NS) 101.4 ml @ 101.4 mls/ hr Q96H IVPB Last administered on 05/27/17 22:04; Admin Dose 101.4 MLS/HR; Start at 21:00 Midodrine (Proamatine) 10 mg TID@,,17 GTB ; Start 05/23/17 at 09:00 Heparin Sodium (Porcine) (Heparin (5000 Units/0.5 ml)) 5,000 unit BID SC Last administered on 05/30/17 10:14; Admin Dose 5,000 UNIT; Start 05/23/17 at 09:00 Insulin Aspart NOVOLOG *MILD* ALGORI... Q4 SC Last administered on 05/27/17 04: 50; Admin Dose 1 UNIT; Start 05/26/17 at 09:00 Total Parenteral Nutrition 1,000 ml @ 40 mls/hr Q24H IV Last administered on 14:40; Admin Dose 40 MLS/HR; Start 05/27/17 at 14:00 Fat Emulsion Intravenous (Liposyn Ii 20%) 250 ml @ 31.25 mls/ hr Q24H IV Last administered on 05/29/17 10:42; Admin Dose 31.25 MLS/HR; Start 05/28/17 at 10:00 Famotidine 20 mg 20 mg DAILY IV Last administered on 05/29/17t 08:42; Admin Dose 20 MG; Start 05/29/17 at 09:00 Dextrose/Sodium Chloride (D5-NS) 1,000 ml @ 50 mls/hr Q20H IV ; Start 05/30/17 at 08:30 Hydrocortisone (Solu-Cortef) 50 mg Q8 IV ; Start 05/30/17 at 14:00 Assessment/Plan Chief Complaint/Hosp Course Additional Assessment/Plan IMP: 1. Septic shock remains vasopressor dependent. Continues dopamine. 2. VDRF 3. ? HCAP 4. Cellulitis 5. Urosepsis 6. Encephalopathy 7. STARLA RECS: 1. Pressors to MAP > 65 mmHg 2. Vent support 3. Palliative Care consultation. Bioethics recs. 4. TF's/Free H20 5. dvt prophylaxis 6. Random cortisol level 15, on the low side may have a component of relative adrenal insufficiency. Will give a trial of hydrocortisone. Critical care time 35 minutes. Problems: JARED CLAIRE MD, [facility] May 30, 2017 10:22
[2017-05-30] MEDS: FAMOTIDINE 20 MG INJ IV SCH (10:24)
[2017-05-30] MEDS: FAT EMULSION 20% 250 ML IV SCH (10:24)
[2017-05-30] MEDS: DEXTROSE 5%-0.9% NACL 1,000 ML IV SCH (11:44)
--- NOTE | 2017-05-30 12:14 | CONS ---
Date/Time of Note Date/Time of Note DATE: 05/30/17 TIME: 12:12 Assessment/Plan Assessment/Plan Chief Complaint/Hosp Course 86-year-old debilitated female admitted from subacute with dislodged G-tube. However during hospital course she has developed respiratory failure is currently in the intensive care unit. Major comorbid medical problems include history of advanced dementia, she is PEG trached and chronic kidney disease. She remains in intensive care unit critically ill, she is a full code family members have not addressed ongoing goals of care. Problems: Additional Assessment/Plan There is been no change in patient's overall clinical condition she remains intubated and on low-dose pressors. Patient is a chemical code now nursing staff reports that family members have not visited yet. Consultation Date/Type/Reason Admit Date/Time May 06, 2017 at 16:34 Initial Consult Date 05/22/17 Type of Consultation: Palliative care Exam/Review of Systems Vital Signs Vitals Vital Signs Date Time Temp Pulse Resp B/P Pulse Ox O2 Delivery O2 Flow Rate FiO2 05/30/17 07:00 79 19 69/38 100 Mechanical Ventilator 05/30/17 05:15 30 05/30/17 04:00 97.7 Intake and Output 05/29/17 05/29/17 05/30/17 15:00 23:00 07:00 Intake Total 1213.927 ml 1123.586 ml 921.8 ml Output Total 270 ml 565 ml 500 ml Balance 943.927 ml 558.586 ml 421.8 ml Exam Constitutional: other (Intubated on ventilator) Respiratory: congested cough, crackles/rales, diminished breath sounds Cardiovascular: No S3, No S4, No bruits, No diastolic murmur, No edema, No gallop, No irregular rhythm, No jugular venous distention (JVD), No murmurs/ extra sounds, No nl pulses, No other, No regular rate and rhythm, No rub, No systolic murmur Results Result Diagram: 05/28/17 0515 05/30/17 0345 Results 24 hrs Laboratory Tests Test 05/29/17 16:34 05/29/17 22:00 05/30/17 01:38 05/30/17 03:45 Bedside Glucose 91 96 79 Sodium Level 130 L Potassium Level 3.6 Chloride Level 101 Carbon Dioxide Level 17 L Anion Gap 16 Blood Urea Nitrogen 19 Creatinine 1.67 H Glucose Level 295 #H Calcium Level 8.1 L Phosphorus Level 4.2 Magnesium Level 1.8 Random Cortisol 15.3 Test 05/30/17 06:03 05/30/17 10:15 Bedside Glucose 79 75 Medications Medications Current Medications Atorvastatin Calcium (Lipitor) 10 mg QHS GTB Last administered on 05/19/17 21: 00; Admin Dose 10 MG; Start 05/06/17 at 21:00 Bisacodyl (Dulcolax Supp) 10 mg Q48H [place] Last administered on 05/22/17 16:38; Admin Dose 10 MG; Start 05/06/17 at 17:00 Carbidopa/Levodopa (Sinemet (25/ 100)) 1 tab TID GTB Last administered on 22:02; Admin Dose 1 TAB; Start 05/06/17 at 21:00 Clopidogrel Bisulfate (plaVIX) 75 mg DAILY GTB Last administered on 05/17/17 10:40; Admin Dose 75 MG; Start 05/07/17 at 09:00; Status Future Hold Donepezil HCl (Aricept) 10 mg QHS GTB Last administered on 05/19/17 21:00; Admin Dose 10 MG; Start 05/06/17 at 21:00 Ferrous Sulfate (Ferrous Sulfate (Ec)) 325 mg BID PO Last administered on 09:09; Admin Dose 325 MG; Start 05/06/17 at 21:00 Folic Acid (Folic Acid) 1 mg DAILY GTB Last administered on 05/22/17 09:09; Admin Dose 1 MG; Start 05/07/17 at 09:00 Lactobacillus Acidophilus/ Rhamnosus (Culturelle) 1 cap QHS GTB Last administered on 05/19/17 21:00; Admin Dose 1 CAP; Start 05/06/17 at 21:00 Magnesium Hydroxide (Milk Of Mag) 30 ml Q24H GTB Last administered on 05/22/17 16:38; Admin Dose 30 ML; Start 05/06/17 at 17:00 Memantine (Namenda) 5 mg QAM GTB Last administered on 05/22/17 09:10; Admin Dose 5 MG; Start 05/07/17 at 09:00 Metoprolol Tartrate (Lopressor) 25 mg Q12H GTB Last administered on 05/18/17 16:47; Admin Dose 25 MG; Start 05/06/17 at 17:00; Status Future Hold Multivit/Ca Carb/ B Cmplx/FA/Prenat (Radhika-John) 1 tab DAILY GTB Last administered on 05/22/17 09:09; Admin Dose 1 TAB; Start 05/07/17 at 09:00 Pramipexole (Mirapex) 0.5 mg DAILY GTB Last administered on 05/22/17 09:09; Admin Dose 0.5 MG; Start 05/07/17 at 09:00 Sodium Biphosphate/ Sodium Phosphate (Fleet Enema Pediatric) 118 ml Q72H PRN [place] CONSTIPATION; Start 05/06/17 at 17:00 Citric Acid/ Sodium Citrate (Bicitra) 30 ml BID PO Last administered on 09:09; Admin Dose 30 ML; Start 05/06/17 at 21:00 Nystatin (Nystatin Powder) 1 applic BID TOP Last administered on 05/30/17 10: 18; Admin Dose 1 APPLIC; Start 05/09/17 at 21:00 Collagenase (Santyl) 1 applic DAILY TOP Last administered on 05/30/17 10:18; Admin Dose 1 APPLIC; Start 05/09/17 at 15:00 Collagenase 1 applic 1 applic PRN PRN TOP WOUND CARE; Start 05/09/17 at 14:00 Norepinephrine 16 mg/Dextrose 500 ml @ 1.87 mls/hr TITRATE IV ; Start 05/10/17 at 14:00 Dopamine HCl/ Dextrose 250 ml @ 6.848 mls/ hr TITRATE IV Last administered on 05/30/17 10:11; Admin Dose 20.543 MLS/HR; Start 05/10/17 at 18:30 Miscellaneous Information 1 ea NOTE XX ; Start 05/11/17 at 08:00 Glucose (Glutose) 15 gm Q15M PRN PO DECREASED GLUCOSE; Start 05/11/17 at 08:00 Glucose (Glutose) 22.5 gm Q15M PRN PO DECREASED GLUCOSE; Start 05/11/17 at 08: 00 Dextrose (D50w Syringe) 25 ml Q15M PRN IV DECREASED GLUCOSE Last administered on 05/28/17 00:53; Admin Dose 25 ML; Start 05/11/17 at 08:00 Dextrose (D50w Syringe) 50 ml Q15M PRN IV DECREASED GLUCOSE Last administered on 05/15/17 00:11; Admin Dose 50 ML; Start 05/11/17 at 08:00 Glucagon (Glucagen) 1 mg Q15M PRN IM DECREASED GLUCOSE; Start 05/11/17 at 08:00 Glucose (Glutose) 15 gm Q15M PRN BUCCAL DECREASED GLUCOSE; Start 05/11/17 at 08 :00 Epoetin Vasyl (Epogen (Esrd)) 10,000 units MoWeFr@17 SC Last administered on 05/29 16:35; Admin Dose 10,000 UNITS; Start 05/13/17 at 17:00 IV Flush 10 ml 10 ml PRN PRN IV IV PROTOCOL; Start 05/15/17 at 17:30 Trimethoprim/ Sulfamethoxazole/ Dextrose (Bactrim/D5W) 260 ml @ 173.333 mls/hr Q8 IVPB Last administered on 05/30/17 06:06; Admin Dose 173.333 MLS/HR; Start 05/19/17 at 21:00 Amikacin Sulfate AMIKACIN PER PHARMACY NOTE XX ; Start 05/19/17 at 18:00 Cefepime HCl 0.5 gm/Sodium Chloride 100 ml @ 100 mls/hr Q24H IVPB Last administered on 05/29/17 22:01; Admin Dose 100 MLS/HR; Start 05/19/17 at 20:00 Amikacin Sulfate/ Sodium Chloride (Amikacin/NS) 101.4 ml @ 101.4 mls/ hr Q96H IVPB Last administered on 05/27/17 22:04; Admin Dose 101.4 MLS/HR; Start at 21:00 Midodrine (Proamatine) 10 mg TID@,, GTB ; Start 05/23/17 at 09:00 Heparin Sodium (Porcine) (Heparin (5000 Units/0.5 ml)) 5,000 unit BID SC Last administered on 05/30/17 10:14; Admin Dose 5,000 UNIT; Start 05/23/17 at 09:00 Insulin Aspart NOVOLOG *MILD* ALGORI... Q4 SC Last administered on 05/27/17 04: 50; Admin Dose 1 UNIT; Start 05/26/17 at 09:00 Total Parenteral Nutrition 1,000 ml @ 40 mls/hr Q24H IV Last administered on 14:40; Admin Dose 40 MLS/HR; Start 05/27/17 at 14:00 Fat Emulsion Intravenous (Liposyn Ii 20%) 250 ml @ 31.25 mls/ hr Q24H IV Last administered on 05/30/17 10:24; Admin Dose 31.25 MLS/HR; Start 05/28/17 at 10:00 Famotidine 20 mg 20 mg DAILY IV Last administered on 05/30/17 10:24; Admin Dose 20 MG; Start 05/29/17 at 09:00 Dextrose/Sodium Chloride (D5-NS) 1,000 ml @ 50 mls/hr Q20H IV Last administered on 05/30/17 11:44; Admin Dose 50 MLS/HR; Start 05/30/17 at 08:30 Hydrocortisone (Solu-Cortef) 50 mg Q8 IV ; Start 05/30/17 at 14:00 PENELOPE POPE May 30, 2017 12:14
--- NOTE | 2017-05-30 12:41 | CONS ---
Date/Time of Note Date/Time of Note DATE: 05/30/17 TIME: 12:33 Assessment/Plan Assessment/Plan Chief Complaint/Hosp Course ID PROGRESS NOTE CURRENT ABX DAY => Cefepime #12 + Amikacin #12+ Bactrim IV #12 TOTAL ABX DAY # 21 Colistin INH #10 -> DC 8/6 Merrem#10 => DC 7/30 Vanco IV #10 => DC 7/30 24H INTERVAL SUMMARY * Clinically remains septic on pressors w/difficulty maintaining adequate B/P despite broad spectrum + targeted pathogen ABX Coverage, and change of PICC line. * No family has been in to visit patient, sons where advised of Mom's worsening status w/attempt to address palliative comfort care appropriate, son(s) have opted for ChemCode status only -- per nurse they were not open to comfort care/ Hospice care transition. Per the nursing staff, sons have not visited & from verbal telephone interchange nurse was left with concern that son does not understand the severity of the criticall status and indicated that his mother had a good quality of life. * Encephalopathic, no fevers, WBC normalized, remains on pressor support * Need surgical placement of JT -- not a candidate for repeat GT the EC is too large -- has been too unstable for surgical placement of JT * Chemical code status * s/p Right arm PICC line removed -> still on pressors PHYSICAL EXAMINATION: GENERAL: VSS,NAD, no fevers == Obese, eyes open HEENT: NGT->Secure / ETT secure NECK: Supple, trach-> midline CHEST: Equal chest rise bilaterally, Vented HEART: Pulse RRR ABDOMEN: Soft -> see photos large EC fistula residual healing scar, cellulitis w/(+)drainage EXTREMITIES: Warm, no edema SKIN: Warm, dry ID ASSESSMENT: 86 yo F w/PMHx Obesity,Parkinson's dementia w/chronic encephalopathy admitted with: 1. Sepsis w/shock, hypothermia, leukocytosis, lactic acidosis => multifactorial as below => REMAINS ON PRESSORS * 05/07/17 BCx (-) * 05/09/17 BCx (-) 2. Acute on chronic respiratory failure w/Trach 3. HCAP => Tracheobronchitis * CT (+)Large right pleural effusion/small left effusion * Respiratory Cx 05/14: * Organism 1 PSEUDOMONAS AERUGINOSA * Organism 2 STENOTROPHOMONAS MALTOPHILIA 4. 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 5. UTI as per urinalysis on admission => urine was not sent for culture 6. Multiple chronic decub ulcers 7. RASH on admission s/p empiric Elimite x1 w/(-)skin scraping for scabies 8. Acute kidney injury 9. Diabetes. 10. Acute on chronic anemia. 11. 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 Patient w/persistent septic shock => Continue ABX for GNR MDRO PNA + ABD noah -stoma, cellulitis 2. Despite lengthy course ABX; she has not been able to wean off Dopamine=> Has not been stable to go to OR for JT placement. * GI PLAN: Large gastrocutaneous fistula, endoscopically it is not possible given to keep the largest diameter GJ tube in place=> proceed to placement of JT 3. Patient is chronically encephalopathic, poor quality of life, poor long-term prognosis, and comfort care/Hospice appropriate. * Chem Code Status . . . . Problems: Consultation Date/Type/Reason Admit Date/Time May 06, 2017 at 16:34 Initial Consult Date 05/12/17 Type of Consultation: ID Exam/Review of Systems Vital Signs Vitals Vital Signs Date Time Temp Pulse Resp B/P Pulse Ox O2 Delivery O2 Flow Rate FiO2 05/30/17 07:00 79 19 69/38 100 Mechanical Ventilator 05/30/17 05:15 30 05/30/17 04:00 97.7 Intake and Output 05/29/17 05/29/17 05/30/17 15:00 23:00 07:00 Intake Total 1213.927 ml 1123.586 ml 921.8 ml Output Total 270 ml 565 ml 500 ml Balance 943.927 ml 558.586 ml 421.8 ml Results Result Diagram: 05/28/17 0515 05/30/17 0345 Results 24 hrs Laboratory Tests Test 05/29/17 16:34 05/29/17 22:00 05/30/17 01:38 05/30/17 03:45 Bedside Glucose 91 96 79 Sodium Level 130 L Potassium Level 3.6 Chloride Level 101 Carbon Dioxide Level 17 L Anion Gap 16 Blood Urea Nitrogen 19 Creatinine 1.67 H Glucose Level 295 #H Calcium Level 8.1 L Phosphorus Level 4.2 Magnesium Level 1.8 Random Cortisol 15.3 Test 05/30/17 06:03 05/30/17 10:15 Bedside Glucose 79 75 Medications Medications Current Medications Atorvastatin Calcium (Lipitor) 10 mg QHS GTB Last administered on 05/19/17 21: 00; Admin Dose 10 MG; Start 05/06/17 at 21:00 Bisacodyl (Dulcolax Supp) 10 mg Q48H CO Last administered on 05/22/17 16:38; Admin Dose 10 MG; Start 05/06/17 at 17:00 Carbidopa/Levodopa (Sinemet (25/ 100)) 1 tab TID GTB Last administered on 22:02; Admin Dose 1 TAB; Start 05/06/17 at 21:00 Clopidogrel Bisulfate (plaVIX) 75 mg DAILY GTB Last administered on 05/17/17 10:40; Admin Dose 75 MG; Start 05/07/17 at 09:00; Status Future Hold Donepezil HCl (Aricept) 10 mg QHS GTB Last administered on 05/19/17 21:00; Admin Dose 10 MG; Start 05/06/17 at 21:00 Ferrous Sulfate (Ferrous Sulfate (Ec)) 325 mg BID PO Last administered on 09:09; Admin Dose 325 MG; Start 05/06/17 at 21:00 Folic Acid (Folic Acid) 1 mg DAILY GTB Last administered on 05/22/17 09:09; Admin Dose 1 MG; Start 05/07/17 at 09:00 Lactobacillus Acidophilus/ Rhamnosus (Culturelle) 1 cap QHS GTB Last administered on 05/19/17 21:00; Admin Dose 1 CAP; Start 05/06/17 at 21:00 Magnesium Hydroxide (Milk Of Mag) 30 ml Q24H GTB Last administered on 05/22/17 16:38; Admin Dose 30 ML; Start 05/06/17 at 17:00 Memantine (Namenda) 5 mg QAM GTB Last administered on 05/22/17 09:10; Admin Dose 5 MG; Start 05/07/17 at 09:00 Metoprolol Tartrate (Lopressor) 25 mg Q12H GTB Last administered on 05/18/17 16:47; Admin Dose 25 MG; Start 05/06/17 at 17:00; Status Future Hold Multivit/Ca Carb/ B Cmplx/FA/Prenat (Radhika-John) 1 tab DAILY GTB Last administered on 05/22/17 09:09; Admin Dose 1 TAB; Start 05/07/17 at 09:00 Pramipexole (Mirapex) 0.5 mg DAILY GTB Last administered on 05/22/17 09:09; Admin Dose 0.5 MG; Start 05/07/17 at 09:00 Sodium Biphosphate/ Sodium Phosphate (Fleet Enema Pediatric) 118 ml Q72H PRN CO CONSTIPATION; Start 05/06/17 at 17:00 Citric Acid/ Sodium Citrate (Bicitra) 30 ml BID PO Last administered on 09:09; Admin Dose 30 ML; Start 05/06/17 at 21:00 Nystatin (Nystatin Powder) 1 applic BID TOP Last administered on 05/30/17 10: 18; Admin Dose 1 APPLIC; Start 05/09/17 at 21:00 Collagenase (Santyl) 1 applic DAILY TOP Last administered on 05/30/17 10:18; Admin Dose 1 APPLIC; Start 05/09/17 at 15:00 Collagenase 1 applic 1 applic PRN PRN TOP WOUND CARE; Start 05/09/17 at 14:00 Norepinephrine 16 mg/Dextrose 500 ml @ 1.87 mls/hr TITRATE IV ; Start 05/10/17 at 14:00 Dopamine HCl/ Dextrose 250 ml @ 6.848 mls/ hr TITRATE IV Last administered on 05/30/17 10:11; Admin Dose 20.543 MLS/HR; Start 05/10/17 at 18:30 Miscellaneous Information 1 ea NOTE XX ; Start 05/11/17 at 08:00 Glucose (Glutose) 15 gm Q15M PRN PO DECREASED GLUCOSE; Start 05/11/17 at 08:00 Glucose (Glutose) 22.5 gm Q15M PRN PO DECREASED GLUCOSE; Start 05/11/17 at 08: 00 Dextrose (D50w Syringe) 25 ml Q15M PRN IV DECREASED GLUCOSE Last administered on 05/28/17 00:53; Admin Dose 25 ML; Start 05/11/17 at 08:00 Dextrose (D50w Syringe) 50 ml Q15M PRN IV DECREASED GLUCOSE Last administered on 05/15/17 00:11; Admin Dose 50 ML; Start 05/11/17 at 08:00 Glucagon (Glucagen) 1 mg Q15M PRN IM DECREASED GLUCOSE; Start 05/11/17 at 08:00 Glucose (Glutose) 15 gm Q15M PRN BUCCAL DECREASED GLUCOSE; Start 05/11/17 at 08 :00 Epoetin Vasyl (Epogen (Esrd)) 10,000 units MoWeFr@17 SC Last administered on 05/29 16:35; Admin Dose 10,000 UNITS; Start 05/13/17 at 17:00 IV Flush 10 ml 10 ml PRN PRN IV IV PROTOCOL; Start 05/15/17 at 17:30 Trimethoprim/ Sulfamethoxazole/ Dextrose (Bactrim/D5W) 260 ml @ 173.333 mls/hr Q8 IVPB Last administered on 05/30/17 06:06; Admin Dose 173.333 MLS/HR; Start 05/19/17 at 21:00 Amikacin Sulfate AMIKACIN PER PHARMACY NOTE XX ; Start 05/19/17 at 18:00 Cefepime HCl 0.5 gm/Sodium Chloride 100 ml @ 100 mls/hr Q24H IVPB Last administered on 05/29/17 22:01; Admin Dose 100 MLS/HR; Start 05/19/17 at 20:00 Amikacin Sulfate/ Sodium Chloride (Amikacin/NS) 101.4 ml @ 101.4 mls/ hr Q96H IVPB Last administered on 05/27/17 22:04; Admin Dose 101.4 MLS/HR; Start at 21:00 Midodrine (Proamatine) 10 mg TID@09,,17 GTB ; Start 05/23/17 at 09:00 Heparin Sodium (Porcine) (Heparin (5000 Units/0.5 ml)) 5,000 unit BID SC Last administered on 05/30/17 10:14; Admin Dose 5,000 UNIT; Start 05/23/17 at 09:00 Insulin Aspart NOVOLOG *MILD* ALGORI... Q4 SC Last administered on 05/27/17 04: 50; Admin Dose 1 UNIT; Start 05/26/17 at 09:00 Total Parenteral Nutrition 1,000 ml @ 40 mls/hr Q24H IV Last administered on 14:40; Admin Dose 40 MLS/HR; Start 05/27/17 at 14:00 Fat Emulsion Intravenous (Liposyn Ii 20%) 250 ml @ 31.25 mls/ hr Q24H IV Last administered on 05/30/17 10:24; Admin Dose 31.25 MLS/HR; Start 05/28/17 at 10:00 Famotidine 20 mg 20 mg DAILY IV Last administered on 05/30/17 10:24; Admin Dose 20 MG; Start 05/29/17 at 09:00 Dextrose/Sodium Chloride (D5-NS) 1,000 ml @ 50 mls/hr Q20H IV Last administered on 05/30/17 11:44; Admin Dose 50 MLS/HR; Start 05/30/17 at 08:30 Hydrocortisone (Solu-Cortef) 50 mg Q8 IV ; Start 05/30/17 at 14:00 SYLVIA PADRON NP May 30, 2017 12:41
[2017-05-30] MEDS: HYDROCORTISONE 100 MG INJ IV SCH ×2 (15:06→22:03)
[2017-05-30] MEDS: MAGNESIUM HYDROXIDE 30ML CUP GTB SCH (17:00)
[2017-05-30] MEDS: CEFEPIME HCL 0.5 GM in SOD CHLORIDE 0.9% 100 ML IVPB SCH (20:12)
[2017-05-30] MEDS: CITRIC ACID/NA CITRATE 30 ML CUP PO SCH (20:24)
[2017-05-30] MEDS: FERROUS SULFATE (EC) 325 MG TAB PO SCH (20:25)
--- NOTE | 2017-05-30 21:37 | CONS ---
Date/Time of Note Date/Time of Note DATE: 05/30/17 TIME: 21:11 Assessment/Plan Assessment/Plan Problems: (1) Controlled diabetes mellitus Status: Chronic Comment: This am lab reads glucose 295 mg/dL but FS all low-normal. Glucose likely drawn from IV dextrose line and not truly high. (2) Septic shock Status: Acute Comment: There is no address heading here regarding adrenal because I believe patient's adrenal function is normal. Although she does have a mild hyponatremia and her white cell response seems to be less than one might expect , her cortisol level is absolutely normal for her situation. When a patient is critically ill, especially for a prolonged period, the liver shifts from making carrier proteins such as albumin, thyroid binding globulin, sex hormone binding globulin, and cortisol binding globulin, to producing pro-inflammatory cytokines. When these binding globulins decrease, the hormones that they carry will naturally be measured as lower than their actual levels. This is partially responsible for the "sick euthyroid syndrome." For this patient, critically ill for a prolonged period, a serum cortisol of > 15 is entirely appropriate. There is no need for a cortrosyn stimulation test because it would not produce a response. Her adrenal cortex is maximally stimulated and likely could not produce more cortisol if stimulated. Therefore a stim test would be misinterpreted as positive and one might assume that the adrenal gland is not responding in full. However, as I already noted here, it does not appear the adrenal could possibly produce more cortisol based on these levels. The longer she remains ill, the lower the level goes, indicating decreasing levels of CBG. In any event, despite this, I am never one to painter ski edge the way of attempts to save a patient's life. If a patient is hypotensive and poorly responsive to pressor agents, I have no problem with an attempt to give her stress dose corticosteroids. However, if in 24-48 hours, there is no obvious improvement in blood pressure, I usually recommend withdrawal of hydrocortisone as it has not been helpful. Will monitor and d/w both primary team and pulmonary re: steroid withdrawal if no signs of improvement. (3) Poor prognosis Status: Chronic Comment: I do not believe whatever is done with corticosteroids on this patient will change her negative outcome. Family needs to prepare themselves for this in the near future. Consultation Date/Type/Reason Admit Date/Time May 06, 2017 at 16:34 Date of Consultation: May 30, 2017 Type of Consultation: Endocrinology Reason for Consultation R/o Adrenal insufficiency Referring Provider: OSMAR MONTAGUE DO Hx of Present Illness 86 y/o C F unresponsive and bedbound w/ trach and PEG for the last 2 years w/ advanced Alzheimer's dementia, history of ventilatory dependent respiratory failure, history of chronic kidney disease stage 4, history of anemia, history of contractures, history of dementia, surgery with placement of PEG, history of coronary artery disease, who presented to [facility] for evaluation of her G tube dislodgement. The patient recently had a prolonged hospital stay at [facility] in [facility] due to a gastrocutaneous fistula. The patient required 1 month of TPN before the gastrocutaneous fistula was closed and the G tube was reinserted. The patient was then subsequently transferred back to our subacute facility; however, 3 1/2 weeks ago the patient was noted to have dislodgement of the G tube and presented to [facility] emergency room for evaluation. In the emergency room the patient had laboratory data drawn and was found to have hyponatremia and mild CHF. Admitted. Since admit pt. has clearly developed sepsis. 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 She has multiple skin wounds/decubiti. She eventually developed hypoglycemia due to inability to take tube feeds and had to be started on TPN. She has required IV antibiotics. Recently developing hypotension. Cortisol checked three times. Each time it was normal, 20.3, 16.7 and this am 15.3. However, given the level of hypotension and the resistance to IV pressors, primary team and pulmonary began to question if there could be an element of adrenal insufficiency. Endo consulted. Subjective hx not possible: pt non-verbal, pt critical status Past Medical History Medical History: congestive heart failure, coronary artery disease, diabetes, hypertension, renal disease, other (end-stage Alzheimer's dementia) Past Surgical History Past Surgical Hx: endoscopy, other (trach/PEG, gastrocutaneous fistula) Family History Significant Family History: no pertinent family hx (unknown but in this situation nothing could really be pertinent) Social History unable to obtain Alcohol Use: none Smoking Status: Unknown if ever smoked Drug Use: none Exam/Review of Systems Vital Signs Vitals VS - Last 72 Hours, by Label Date Time Temp Pulse Resp B/P Pulse Ox O2 Delivery O2 Flow Rate FiO2 8//17 18:45 86 16 121/50 100 05/30/17 18:30 86 17 117/53 100 05/30/17 18:15 85 16 73/34 100 05/30/17 18:00 83 16 94/40 100 Mechanical Ventilator 05/30/17 17:45 83 16 96/41 100 05/30/17 17:30 86 18 93/54 100 05/30/17 17:25 82 17 100 30 05/30/17 17:15 86 17 102/40 100 05/30/17 17:00 85 17 100 Mechanical Ventilator 05/30/17 16:45 81 23 82/28 99 05/30/17 16:30 86 17 101/51 100 05/30/17 16:15 85 16 114/51 99 05/30/17 16:00 96.0 75 17 110/53 100 Mechanical Ventilator 05/30/17 16:00 78 05/30/17 15:45 76 14 122/57 100 05/30/17 15:35 85 18 100 30 05/30/17 15:30 78 17 120/53 100 05/30/17 15:15 82 25 101/84 100 05/30/17 15:00 84 16 115/52 100 Mechanical Ventilator 05/30/17 14:45 84 16 114/63 100 05/30/17 14:30 76 16 109/62 100 05/30/17 14:15 76 16 89/58 100 05/30/17 14:00 78 16 104/51 100 Mechanical Ventilator 05/30/17 13:45 74 16 100 30 05/30/17 13:45 75 16 100/47 100 05/30/17 13:30 75 22 110/50 100 Mechanical Ventilator 05/30/17 13:15 74 16 92/51 100 05/30/17 13:00 76 16 101/48 100 Mechanical Ventilator 05/30/17 12:45 77 16 101/45 100 05/30/17 12:30 73 16 118/50 100 Mechanical Ventilator 05/30/17 12:15 77 15 115/51 100 05/30/17 12:00 76 05/30/17 12:00 94.1 76 16 121/69 100 Mechanical Ventilator 05/30/17 11:45 73 16 128/66 100 05/30/17 11:30 74 21 126/62 100 05/30/17 11:25 75 16 100 30 05/30/17 11:15 74 16 128/61 100 05/30/17 11:00 75 16 134/57 100 Mechanical Ventilator 05/30/17 10:00 75 17 90/41 100 Mechanical Ventilator 05/30/17 09:50 75 17 100 30 05/30/17 09:00 75 17 138/65 100 Mechanical Ventilator 05/30/17 08:00 30 05/30/17 08:00 75 05/30/17 08:00 Bag Valve Mask 05/30/17 08:00 95.1 73 16 126/63 100 Mechanical Ventilator 05/30/17 07:50 74 16 100 30 05/30/17 07:00 79 19 69/38 100 Mechanical Ventilator 05/30/17 06:45 77 16 100 05/30/17 06:30 76 16 100 05/30/17 06:15 76 15 100 05/30/17 06:00 85 16 117/73 100 Mechanical Ventilator 05/30/17 05:45 74 16 100 05/30/17 05:15 78 19 100 30 05/30/17 05:00 73 17 142/53 100 Mechanical Ventilator 05/30/17 04:45 77 18 131/59 100 Mechanical Ventilator 05/30/17 04:30 84 15 130/57 100 Mechanical Ventilator 05/30/17 04:15 75 16 128/60 100 Mechanical Ventilator 05/30/17 04:00 30 05/30/17 04:00 85 05/30/17 04:00 97.7 78 18 126/52 100 Mechanical Ventilator 05/30/17 03:45 80 20 76/34 100 Mechanical Ventilator 05/30/17 03:30 86 22 116/68 100 Mechanical Ventilator 05/30/17 03:15 84 17 128/60 100 Mechanical Ventilator 05/30/17 03:00 76 12 98 Mechanical Ventilator 05/30/17 03:00 85 20 100 30 05/30/17 02:45 79 16 118/53 100 Mechanical Ventilator 05/30/17 02:30 78 16 113/70 100 Mechanical Ventilator 05/30/17 02:15 84 16 112/56 100 Mechanical Ventilator 05/30/17 02:00 78 17 115/58 100 Mechanical Ventilator 05/30/17 01:45 76 17 114/65 100 Mechanical Ventilator 05/30/17 01:30 76 17 109/59 100 Mechanical Ventilator 05/30/17 01:15 85 16 113/62 100 Mechanical Ventilator 05/30/17 01:10 80 18 100 30 05/30/17 01:00 87 16 120/64 100 Mechanical Ventilator 05/30/17 00:45 85 17 108/64 100 05/30/17 00:30 76 16 110/84 100 Mechanical Ventilator 05/30/17 00:15 75 16 115/47 100 Mechanical Ventilator 05/30/17 00:00 97.6 83 16 112/59 100 Mechanical Ventilator 05/30/17 00:00 83 17 23:45 84 16 111/46 100 Mechanical Ventilator 05/29/17 23:30 84 16 112/65 100 Mechanical Ventilator 05/29/17 23:15 85 17 120/53 100 Mechanical Ventilator 05/29/17 23:00 74 17 100 30 05/29/17 23:00 76 16 115/53 100 Mechanical Ventilator 05/29/17 22:15 75 18 89/47 100 Mechanical Ventilator 05/29/17 22:00 85 21 95/53 92 Mechanical Ventilator 05/29/17 21:45 84 15 126/61 100 Mechanical Ventilator 05/29/17 21:30 82 18 119/62 100 Mechanical Ventilator 05/29/17 21:15 76 16 114/49 100 Mechanical Ventilator 05/29/17 21:15 77 17 100 30 05/29/17 21:00 78 15 116/53 100 Mechanical Ventilator 05/29/17 20:45 85 17 115/55 100 Mechanical Ventilator 05/29/17 20:30 83 17 116/57 100 Mechanical Ventilator 05/29/17 20:15 84 16 123/58 100 Mechanical Ventilator 05/29/17 20:00 30 05/29/17 20:00 84 17 108/51 100 Mechanical Ventilator 05/29/17 20:00 79 05/29/17 19:45 97.5 84 16 118/63 100 Mechanical Ventilator 17 19:30 85 16 121/51 100 Mechanical Ventilator 17 19:15 76 18 123/57 100 Mechanical Ventilator 17 19:00 79 16 117/65 100 Mechanical Ventilator 17 19:00 84 16 100 30 89/17 17:30 85 17 100 30 8/17 16:45 85 17 121/53 100 817 16:30 86 19 127/40 98 8/9/17 16:15 86 20 90/79 100 8/9/17 16:00 86 8/9/17 16:00 97.9 86 18 117/59 98 Mechanical Ventilator 8/9/17 15:45 86 18 111/78 100 8/9/17 15:35 89 17 100 30 8/9/17 15:30 86 17 106/45 99 8/9/17 15:15 87 20 97/43 100 8/9/17 15:00 87 19 114/44 100 Mechanical Ventilator 8/9/17 14:45 87 18 129/42 100 8/9/17 14:30 86 17 126/51 99 8/9/17 14:15 87 17 127/51 100 8/9/17 14:00 80 19 122/100 100 Mechanical Ventilator 9/17 13:50 83 16 100 30 8/9/17 13:45 86 19 120/64 99 8/9/17 13:30 86 18 122/55 99 8/9/17 13:15 86 18 118/54 99 8/9/17 13:00 86 18 129/57 99 Mechanical Ventilator 917 12:45 87 17 119/54 99 8/9/17 12:30 86 18 120/58 99 8/9/17 12:15 98.3 85 18 112/45 98 Mechanical Ventilator 17 12:00 86 /9/17 11:45 85 17 110/45 99 8/9/17 11:40 76 17 100 30 8/9/17 11:15 81 17 109/44 100 8/9/17 11:00 84 21 80/48 100 Mechanical Ventilator 9/17 10:45 84 18 112/46 100 8/9/17 10:15 83 16 117/48 100 8/9/17 10:00 77 16 105/50 100 Mechanical Ventilator 8/9/17 09:45 77 16 111/46 100 8/9/17 09:35 85 16 100 30 8/9/17 09:30 84 16 118/54 100 8/9/17 09:15 84 17 113/49 100 8/9/17 09:00 84 17 113/49 100 Mechanical Ventilator 89/17 08:45 77 16 106/45 100 8/9/17 08:30 78 19 57/22 98 8/9/17 08:15 85 19 90/72 100 8/9/17 08:00 30 8/9/17 08:00 98.1 84 17 97/69 100 Mechanical Ventilator 89/17 08:00 85 /9/17 07:45 79 17 114/50 100 8/9/17 07:40 84 17 100 30 8/9/17 07:30 77 18 101/32 99 8/9/17 07:15 84 16 114/43 100 8/9/17 07:00 77 16 102/38 100 Mechanical Ventilator 9/17 05:33 86 16 100 30 8/9/17 04:15 85 20 96/45 100 8/9/17 04:00 85 9/ 04:00 97.3 84 19 106/44 100 Mechanical Ventilator 05/29/17 03:45 76 18 115/45 100 8/9/17 03:30 83 19 120/61 100 8/9/17 03:24 78 16 100 30 9/17 03:15 84 20 90/75 100 8/9/17 03:00 76 18 107/52 100 Mechanical Ventilator 05/29/17 02:45 84 18 111/49 100 /9/17 02:30 84 18 97/40 100 /9/17 02:15 80 17 95/58 100 8/9/17 02:00 85 18 106/47 100 Mechanical Ventilator 17 01:45 84 18 112/43 100 /9/17 01:30 84 21 100/46 100 8/9/17 01:16 85 16 100 30 9/17 01:15 84 19 108/58 100 8/9/17 01:00 77 18 97/43 100 Mechanical Ventilator 9/17 00:45 88 18 102/41 100 8/9/17 00:30 85 18 101/38 100 8/9/17 00:15 79 16 105/41 100 8/9/17 00:00 85 /9/17 00:00 97.7 84 18 101/53 100 Mechanical Ventilator 8/17 23:45 87 21 102/65 100 8/8/17 23:42 85 20 97 30 88/17 23:30 85 19 117/52 100 8/8/17 23:15 86 17 123/55 98 88/17 23:00 77 20 122/49 100 Mechanical Ventilator 05/28/17 22:45 85 18 118/60 100 05/28/17 22:30 85 16 133/64 100 05/28/17 22:15 84 19 107/43 100 05/28/17 22:00 87 18 108/54 100 Mechanical Ventilator 05/28/17 21:45 85 21 111/59 100 05/28/17 21:30 85 20 106/46 100 05/28/17 21:18 78 19 100 30 05/28/17 21:15 85 15 118/45 100 05/28/17 21:00 85 18 116/54 100 Mechanical Ventilator 05/28/17 20:45 85 18 107/52 100 05/28/17 20:30 85 18 120/42 100 05/28/17 20:15 79 16 101/36 100 05/28/17 20:00 85 05/28/17 20:00 30 05/28/17 20:00 97.4 85 19 109/48 100 Mechanical Ventilator 05/28/17 19:45 88 19 104/46 100 05/28/17 19:30 85 19 120/50 100 05/28/17 19:27 76 18 100 30 05/28/17 19:15 83 17 103/52 100 05/28/17 19:00 87 19 75/43 100 Mechanical Ventilator 05/28/17 17:45 87 19 107/43 100 05/28/17 17:30 87 19 114/46 100 05/28/17 17:15 87 19 100 30 05/28/17 17:15 87 17 126/57 100 05/28/17 17:00 87 18 113/46 100 Mechanical Ventilator 05/28/17 16:45 87 18 118/53 100 05/28/17 16:30 87 17 124/51 100 05/28/17 16:15 88 18 111/48 100 05/28/17 16:00 88 05/28/17 16:00 88 18 116/48 100 Mechanical Ventilator 05/28/17 15:45 88 19 117/38 100 05/28/17 15:30 88 17 110/46 100 05/28/17 15:25 88 20 100 30 05/28/17 15:15 88 18 118/46 100 05/28/17 15:00 89 18 118/50 100 Mechanical Ventilator 05/28/17 14:45 88 16 118/49 100 05/28/17 14:30 88 20 106/44 100 05/28/17 14:15 89 18 88/58 100 05/28/17 14:00 88 19 115/47 100 Mechanical Ventilator 05/28/17 13:45 89 18 106/52 100 05/28/17 13:30 89 17 112/49 100 05/28/17 13:20 89 17 100 30 05/28/17 13:15 89 18 110/44 100 05/28/17 13:00 89 21 104/47 100 Mechanical Ventilator 05/28/17 12:45 89 20 112/46 05/28/17 12:15 89 17 103/59 100 05/28/17 12:00 98.1 89 20 104/56 Mechanical Ventilator 05/28/17 12:00 88 05/28/17 11:45 88 17 115/50 100 05/28/17 11:45 89 17 100 30 05/28/17 11:30 88 19 107/45 100 05/28/17 11:15 89 23 108/46 100 Mechanical Ventilator 05/28/17 11:00 89 20 107/50 100 Mechanical Ventilator 05/28/17 10:45 90 18 107/42 100 05/28/17 10:30 89 21 100/48 100 05/28/17 10:15 88 17 111/46 100 05/28/17 10:00 86 19 103/50 100 Mechanical Ventilator 05/28/17 09:45 88 17 100/37 100 05/28/17 09:40 88 18 100 30 05/28/17 09:30 88 18 99/52 100 05/28/17 09:15 88 19 95/52 100 05/28/17 09:00 88 18 91/51 100 Mechanical Ventilator 05/28/17 08:45 88 17 97/41 100 05/28/17 08:30 88 16 100/41 100 05/28/17 08:15 89 20 101/69 100 05/28/17 08:00 88 05/28/17 08:00 30 05/28/17 08:00 98.3 89 18 105/61 100 Mechanical Ventilator 05/28/17 07:45 88 17 111/54 100 05/28/17 07:40 89 18 100 30 05/28/17 07:30 88 18 110/50 100 05/28/17 07:15 88 19 107/51 100 05/28/17 07:00 88 17 111/50 100 Mechanical Ventilator 05/28/17 06:45 89 19 99/53 100 05/28/17 06:30 89 18 109/38 100 05/28/17 06:15 88 18 93/45 100 05/28/17 06:00 88 20 94/54 100 Mechanical Ventilator 05/28/17 05:45 88 20 98/51 100 05/28/17 05:32 88 18 100 30 05/28/17 05:30 88 18 113/56 100 05/28/17 05:15 89 19 118/70 100 05/28/17 05:00 88 18 108/49 100 Mechanical Ventilator 05/28/17 04:45 89 16 88/63 100 05/28/17 04:30 88 18 115/52 100 05/28/17 04:15 88 19 106/60 100 05/28/17 04:00 89 05/28/17 04:00 97.7 89 18 110/44 100 Mechanical Ventilator 05/28/17 03:45 90 19 104/54 100 05/28/17 03:30 90 19 107/50 100 05/28/17 03:15 90 16 104/63 100 05/28/17 03:12 90 18 100 30 05/28/17 03:00 90 20 119/44 100 Mechanical Ventilator 05/28/17 02:45 90 19 101/47 100 05/28/17 02:30 91 19 96/52 100 05/28/17 02:15 91 19 95/49 100 05/28/17 02:00 91 18 103/47 100 Mechanical Ventilator 05/28/17 01:45 91 20 101/51 100 05/28/17 01:30 90 19 99/60 100 05/28/17 01:15 89 19 116/54 100 05/28/17 01:08 90 18 100 30 05/28/17 01:00 90 20 100/52 100 Mechanical Ventilator 05/28/17 00:45 89 105/62 99 05/28/17 00:30 90 17 96/49 100 05/28/17 00:15 90 15 92/72 100 05/28/17 00:00 89 05/28/17 00:00 97.7 89 18 99/46 100 Mechanical Ventilator 05/27/17 23:45 89 17 109/51 100 05/27/17 23:30 89 18 104/50 100 05/27/17 23:15 89 19 101/51 100 05/27/17 23:14 89 20 100 30 05/27/17 23:00 89 18 108/47 100 Mechanical Ventilator 05/27/17 22:45 77 18 94/45 100 05/27/17 22:30 80 19 102/41 100 05/27/17 22:15 88 18 106/48 100 05/27/17 22:00 88 18 104/49 100 Mechanical Ventilator 05/27/17 21:45 79 20 98/52 100 05/27/17 21:30 88 19 98/44 100 Vital Signs Date Time Temp Pulse Resp B/P Pulse Ox O2 Delivery O2 Flow Rate FiO2 05/30/17 18:45 86 16 121/50 100 05/30/17 18:00 Mechanical Ventilator 05/30/17 17:25 30 05/30/17 16:00 96.0 Intake and Output 05/29/17 05/29/17 05/30/17 15:00 23:00 07:00 Intake Total 1213.927 ml 1123.586 ml 1032.34 ml Output Total 270 ml 565 ml 550 ml Balance 943.927 ml 558.586 ml 482.34 ml Exam Constitutional: frail, non-verbal Eyes: EOMI, PERRL, nl conjunctiva, nl lids, nl sclera Neck: other (trach on vent) Respiratory: clear to auscultation, normal air movement Cardiovascular: edema (1+ BLE), nl pulses, regular rate and rhythm, No murmurs/extra sounds, No rub Gastrointestinal: bowel sounds, nl liver, spleen, non-tender, soft, No mass, No rebound or guarding Musculoskeletal: nl extremities to inspection Extremities: edema (1+ BLE), normal pulses, No clubbing, No cyanosis Neurological: unresponsive Additional Comments Bedside Glucose - 72 Hours Test 05/27/17 22:05 05/28/17 00:49 05/28/17 01:12 05/28/17 01:32 Bedside Glucose 84mg/dL (70-220) 65mg/dL (70-220) L 114mg/dL (70-220) 110mg/dL (70-220) Test 05/28/17 05:36 05/28/17 09:29 05/28/17 12:29 05/28/17 16:06 Bedside Glucose 81mg/dL (70-220) 94mg/dL (70-220) 82mg/dL (70-220) 86mg/dL (70-220) Test 05/28/17 21:07 05/29/17 01:19 05/29/17 05:11 05/29/17 08:42 Bedside Glucose 78mg/dL (70-220) 74mg/dL (70-220) 70mg/dL (70-220) 81mg/dL (70-220) Test 05/29/17 12:11 05/29/17 16:34 05/29/17 22:00 05/30/17 01:38 Bedside Glucose 85mg/dL (70-220) 91mg/dL (70-220) 96mg/dL (70-220) 79mg/dL (70-220) Test 05/30/17 06:03 05/30/17 10:15 05/30/17 13:17 05/30/17 17:28 Bedside Glucose 79mg/dL (70-220) 75mg/dL (70-220) 82mg/dL (70-220) 83mg/dL (70-220) Results Result Diagram: 05/28/17 0515 05/30/17 0345 Results 24 hrs Laboratory Tests Test 05/29/17 22:00 05/30/17 01:38 05/30/17 03:45 05/30/17 06:03 Bedside Glucose 96 79 79 Sodium Level 130 L Potassium Level 3.6 Chloride Level 101 Carbon Dioxide Level 17 L Anion Gap 16 Blood Urea Nitrogen 19 Creatinine 1.67 H Glucose Level 295 #H Calcium Level 8.1 L Phosphorus Level 4.2 Magnesium Level 1.8 Random Cortisol 15.3 Test 05/30/17 10:15 05/30/17 13:17 05/30/17 17:28 Bedside Glucose 75 82 83 Medications Medications Current Medications Atorvastatin Calcium (Lipitor) 10 mg QHS GTB Last administered on 05/19/17 21: 00; Admin Dose 10 MG; Start 05/06/17 at 21:00 Bisacodyl (Dulcolax Supp) 10 mg Q48H SC Last administered on 05/22/17 16:38; Admin Dose 10 MG; Start 05/06/17 at 17:00 Carbidopa/Levodopa (Sinemet (25/ 100)) 1 tab TID GTB Last administered on 22:02; Admin Dose 1 TAB; Start 05/06/17 at 21:00 Clopidogrel Bisulfate (plaVIX) 75 mg DAILY GTB Last administered on 05/17/17 10:40; Admin Dose 75 MG; Start 05/07/17 at 09:00; Status Future Hold Donepezil HCl (Aricept) 10 mg QHS GTB Last administered on 05/19/17 21:00; Admin Dose 10 MG; Start 05/06/17 at 21:00 Ferrous Sulfate (Ferrous Sulfate (Ec)) 325 mg BID PO Last administered on 09:09; Admin Dose 325 MG; Start 05/06/17 at 21:00 Folic Acid (Folic Acid) 1 mg DAILY GTB Last administered on 05/22/17 09:09; Admin Dose 1 MG; Start 05/07/17 at 09:00 Lactobacillus Acidophilus/ Rhamnosus (Culturelle) 1 cap QHS GTB Last administered on 05/19/17 21:00; Admin Dose 1 CAP; Start 05/06/17 at 21:00 Magnesium Hydroxide (Milk Of Mag) 30 ml Q24H GTB Last administered on 05/22/17 16:38; Admin Dose 30 ML; Start 05/06/17 at 17:00 Memantine (Namenda) 5 mg QAM GTB Last administered on 05/22/17 09:10; Admin Dose 5 MG; Start 05/07/17 at 09:00 Metoprolol Tartrate (Lopressor) 25 mg Q12H GTB Last administered on 05/18/17 16:47; Admin Dose 25 MG; Start 05/06/17 at 17:00; Status Future Hold Multivit/Ca Carb/ B Cmplx/FA/Prenat (Radhika-John) 1 tab DAILY GTB Last administered on 05/22/17 09:09; Admin Dose 1 TAB; Start 05/07/17 at 09:00 Pramipexole (Mirapex) 0.5 mg DAILY GTB Last administered on 05/22/17 09:09; Admin Dose 0.5 MG; Start 05/07/17 at 09:00 Sodium Biphosphate/ Sodium Phosphate (Fleet Enema Pediatric) 118 ml Q72H PRN SC CONSTIPATION; Start 05/06/17 at 17:00 Citric Acid/ Sodium Citrate (Bicitra) 30 ml BID PO Last administered on 09:09; Admin Dose 30 ML; Start 05/06/17 at 21:00 Nystatin (Nystatin Powder) 1 applic BID TOP Last administered on 05/30/17 20: 25; Admin Dose 1 APPLIC; Start 05/09/17 at 21:00 Collagenase (Santyl) 1 applic DAILY TOP Last administered on 05/30/17 10:18; Admin Dose 1 APPLIC; Start 05/09/17 at 15:00 Collagenase 1 applic 1 applic PRN PRN TOP WOUND CARE; Start 05/09/17 at 14:00 Norepinephrine 16 mg/Dextrose 500 ml @ 1.87 mls/hr TITRATE IV ; Start 05/10/17 at 14:00 Dopamine HCl/ Dextrose 250 ml @ 6.848 mls/ hr TITRATE IV Last administered on 05/30/17 10:11; Admin Dose 20.543 MLS/HR; Start 05/10/17 at 18:30 Miscellaneous Information 1 ea NOTE XX ; Start 05/11/17 at 08:00 Glucose (Glutose) 15 gm Q15M PRN PO DECREASED GLUCOSE; Start 05/11/17 at 08:00 Glucose (Glutose) 22.5 gm Q15M PRN PO DECREASED GLUCOSE; Start 05/11/17 at 08: 00 Dextrose (D50w Syringe) 25 ml Q15M PRN IV DECREASED GLUCOSE Last administered on 05/28/17 00:53; Admin Dose 25 ML; Start 05/11/17 at 08:00 Dextrose (D50w Syringe) 50 ml Q15M PRN IV DECREASED GLUCOSE Last administered on 05/15/17 00:11; Admin Dose 50 ML; Start 05/11/17 at 08:00 Glucagon (Glucagen) 1 mg Q15M PRN IM DECREASED GLUCOSE; Start 05/11/17 at 08:00 Glucose (Glutose) 15 gm Q15M PRN BUCCAL DECREASED GLUCOSE; Start 05/11/17 at 08 :00 Epoetin Vasyl (Epogen (Esrd)) 10,000 units MoWeFr@17 SC Last administered on 05/29 16:35; Admin Dose 10,000 UNITS; Start 05/13/17 at 17:00 IV Flush 10 ml 10 ml PRN PRN IV IV PROTOCOL; Start 05/15/17 at 17:30 Trimethoprim/ Sulfamethoxazole/ Dextrose (Bactrim/D5W) 260 ml @ 173.333 mls/hr Q8 IVPB Last administered on 05/30/17 15:06; Admin Dose 173.333 MLS/HR; Start 05/19/17 at 21:00 Amikacin Sulfate AMIKACIN PER PHARMACY NOTE XX ; Start 05/19/17 at 18:00 Cefepime HCl 0.5 gm/Sodium Chloride 100 ml @ 100 mls/hr Q24H IVPB Last administered on 05/30/17 20:12; Admin Dose 100 MLS/HR; Start 05/19/17 at 20:00 Amikacin Sulfate/ Sodium Chloride (Amikacin/NS) 101.4 ml @ 101.4 mls/ hr Q96H IVPB Last administered on 05/27/17 22:04; Admin Dose 101.4 MLS/HR; Start at 21:00 Midodrine (Proamatine) 10 mg TID@09,13,17 GTB ; Start 05/23/17 at 09:00 Heparin Sodium (Porcine) (Heparin (5000 Units/0.5 ml)) 5,000 unit BID SC Last administered on 05/30/17 20:17; Admin Dose 5,000 UNIT; Start 05/23/17 at 09:00 Insulin Aspart NOVOLOG *MILD* ALGORI... Q4 SC Last administered on 05/27/17 04: 50; Admin Dose 1 UNIT; Start 05/26/17 at 09:00 Total Parenteral Nutrition 1,000 ml @ 40 mls/hr Q24H IV Last administered on 14:40; Admin Dose 40 MLS/HR; Start 05/27/17 at 14:00 Fat Emulsion Intravenous (Liposyn Ii 20%) 250 ml @ 31.25 mls/ hr Q24H IV Last administered on 05/30/17 10:24; Admin Dose 31.25 MLS/HR; Start 05/28/17 at 10:00 Famotidine 20 mg 20 mg DAILY IV Last administered on 05/30/17 10:24; Admin Dose 20 MG; Start 05/29/17 at 09:00 Dextrose/Sodium Chloride (D5-NS) 1,000 ml @ 50 mls/hr Q20H IV Last administered on 05/30/17 11:44; Admin Dose 50 MLS/HR; Start 05/30/17 at 08:30 Hydrocortisone (Solu-Cortef) 50 mg Q8 IV Last administered on 05/30/17 15:06; Admin Dose 50 MG; Start 05/30/17 at 14:00 REENA SWANSON MD May 30, 2017 21:22
[2017-05-30] MEDS: TPN 1,000 ML IV SCH (22:03)
[2017-05-31] VITALS (75 sets, daily range): BP systolic 92–158; BP diastolic 36–90; PULSE 66–93; RESP 13–20
[2017-05-31] MEDS: INSULIN ASPART [NOVOLOG] 3 ML PEN SC SCH ×6 (01:00→21:00)
[2017-05-31] MEDS: DOPamine-D5W 1.6 MG/ML 250 ML IV SCH ×2 (03:02→06:18)
[2017-05-31] MEDS: DEXTROSE 5%-0.9% NACL 1,000 ML IV SCH (05:13)
[2017-05-31] MEDS: TRIMETHOPRIM/SULFAMETHOXAZOLE 10 ML in DEXTROSE 5% 250 ML IVPB SCH ×2 (05:38→14:16)
[2017-05-31] MEDS: HYDROCORTISONE 100 MG INJ IV SCH ×3 (05:39→21:13)
[2017-05-31 06:41] LABS: CALCIUM 8.7 mg/dl (8.4-10.2); CREATININE 1.66 mg/dl (0.44-1.00); MAGNESIUM 1.9 mg/dl (1.7-2.5); PHOSPHORUS 4.5 mg/dl (2.5-4.9); POTASSIUM 4.8 mmol/L (3.5-5.1)
[2017-05-31] MEDS: FOLIC ACID 1 MG TAB GTB SCH (08:23)
[2017-05-31] MEDS: MEMANTINE 5 MG TAB GTB SCH (08:24)
[2017-05-31] MEDS: MULTIVIT/CA CARB/B CMPLX/FA TAB GTB SCH (08:24)
[2017-05-31] MEDS: PRAMIPEXOLE 0.25 MG TAB GTB SCH (08:24)
[2017-05-31] MEDS: FERROUS SULFATE (EC) 325 MG TAB PO SCH ×3 (08:24→21:07)
[2017-05-31] MEDS: CITRIC ACID/NA CITRATE 30 ML CUP PO SCH ×3 (08:24→21:12)
[2017-05-31] MEDS: CARBIDOPA/LEVODOPA (25/100) TAB GTB SCH ×4 (08:24→21:07)
[2017-05-31] MEDS: FAMOTIDINE 20 MG INJ IV SCH (08:41)
--- NOTE | 2017-05-31 08:44 | PN ---
DATE: 05/31/2017 SUBJECTIVE DATA: The patient remains critically ill, on presser support. The patient was started on hydrocortisone empirically yesterday. The patient's pressor requirement has come down in the last 24 hours. No other events noted. No hemoptysis, hematemesis, hematochezia. OBJECTIVE DATA: VITAL SIGNS: Blood pressure 118/59, respirations 16, pulse 87, temperature 98.7. HEENT: Head is normocephalic. NECK: Supple. HEART: Regular rate. LUNGS: Show diminished breath sounds at the base. ABDOMEN: Soft, nontender to palpation. Positive ostomy. EXTREMITIES: Negative for clubbing, cyanosis. Positive edema. Positive contractures. DERMATOLOGIC: Clean. No rashes. MUSCULOSKELETAL: Positive wound. NEUROLOGIC: No change in exam. MEDICATIONS: Reviewed. LABORATORY AND DIAGNOSTIC DATA: Shows sodium 132, potassium 4.8, chloride 103, BUN is 21, creatinine 1.66. White count 5.0, hemoglobin 9.8, crit 29.8, platelet count is 169. ASSESSMENT AND PLAN: 1. Shock. Etiology is septic. Possibility of adrenal insufficiency was a consideration. The patient was evaluated by motor racer, Dr. Lovelace. Greatly appreciate his help and recommendations. The patient unlikely to be adrenally insufficient; however, a trial of hydrocortisone was started. The patient's pressor support has decreased. The patient also remains on broad-spectrum antibiotics. At this point, would continue current treatment plan. We will follow up with Infectious Disease for further recommendations. 2. Questionable adrenal insufficiency. Per motor racer, Dr. Lovelace, the patient's adrenal plan is appropriately working. A trial of empiric hydrocortisone will be continued. If there was no significant improvement in blood pressure, we will discontinue in the next 24-48 hours. 3. Anemia. Monitor H and H levels. The patient is status post Epogen. 4. Gastrocutaneous fistula. The patient is pending gastro- jejunal tube placement once clinically stable. 5. Ventilatory-dependent respiratory failure. Vent settings reviewed. ABGs reviewed. Continue to monitor. Follow up with Pulmonary. 6. Nonoliguric acute kidney injury on top of chronic kidney disease. Etiology is hemodynamics. Renal function is stable. Continue current treatment plan. 7. Acute encephalopathy and advanced dementia. Etiology is toxic metabolic. Continue to monitor. 8. Volume overload. The patient has noted lower extremity edema. We will attempt gentle diuresis once patient is off pressor support. 9. Diabetes. Continue Accu-Cheks, insulin sliding scale. 10. Gastrointestinal and deep venous thrombosis prophylaxis. Continue proton pump inhibitor and heparin. 11. Nutrition. Continue total parenteral nutrition. 12. Decubitus wound. Continue wound care. Follow up with General Surgery for recommendations. 13. Hyponatremia, in part due to acute kidney injury, and hypotonic fluids in conjunction with decreased free water, urinary excretion. Patient's sodium levels have been improving once hypotonic fluids were changed. Continue to monitor. Please note, I spent over 30 minutes of critical care time with this patient. Dictated By: Brendan Rosas DO /junie/rajesh /Document#: [id number]
--- NOTE | 2017-05-31 08:45 | PN ---
Date/Time of Note Date/Time of Note DATE: 05/31/17 TIME: 08:38 Assessment/Plan Lines/Catheters IV Catheter Type (from Nrs): PICC Line Collazo in Place (from Nrsg): Yes Assessment/Plan Chief Complaint/Hosp Course 1. G-tube dislodgement: replaced with gjtube by GI, continued yellow drainage peristomal; gj tube replacement attempt-unable due to too large of an opening; continued on pressors; Now chemical code; currently on tpn -hospice/palliative is likely the best option for this patient -possible surgical placement of jtube when medically stable-off pressors 2. Septic shock: multifactorial: 2/2: pneumonia + cellulitis + wounds; persistent, continued on pressors -abx -supportive 3. Respiratory failure with trach: PNA with pulm edema; comfortable on vent; mod sputum -pulmonary toilet -abx -supportive 4.STARLA with CKD; +urine output; cr min improved -judicious fluids -renally dose meds -per nephrology 5. Normocytic anemia: previous coffee ground drainage peristoma;no acute bleed noted -monitor and transfuse as needed 6. CHF -medical management 7. Diabetes with hypoglycemia -medical management 8. Acute encephalopathy with history of advanced dementia; unchanged neurologically -supportive 9. Decubitus wound. -continue wound care. 10. Peristomal cellulitis 2/2 #1; +pseudomonas: improving with drainage to ostomy bag -local care -abx per sensitivity 11. Pancytopenia: improving Patient seen and examined in collaboration with Dr. Meliton Blackburn. Thank you. Problems: Subjective 24 Hr Interval Summary No acute changes. Patient still on pressors, unable to be weaned off. Comfortable on vent, still unresponsive. nonverbal indicators of pain not present. on tpn. No fevers, chills, change of tele rhythm, vomiting. Exam/Review of Systems Vital Signs Vitals Vital Signs Date Time Temp Pulse Resp B/P Pulse Ox O2 Delivery O2 Flow Rate FiO2 05/31/17 08:00 30 05/31/17 07:20 86 17 99 05/31/17 05:45 118/59 Mechanical Ventilator 05/31/17 04:00 98.3 Intake and Output 05/30/17 05/30/17 05/31/17 15:00 23:00 07:00 Intake Total 1194.80 ml 1204.11 ml 659.29 ml Output Total 580 ml 755 ml 1430 ml Balance 614.80 ml 449.11 ml -770.71 ml Exam Free Text/Dictation Constitutional: alert, non-verbal, awake, nonresponsive No oriented Psych: confusion, withdraws from pain Head: atraumatic, normocephalic Eyes: nl sclera ENMT: mucosa pink and moist, missing teeth Neck: non-tender, other (trach), supple Respiratory: rhonchi Cardiovascular: edema Gastrointestinal: distended (min), other (stoma cont to leak copious yellow drainage to ostomy bag), soft, nontender Musculoskeletal: No muscle tone Extremities: edema Neurological: No nl mental status, No nl speech Skin: other (abdominal/peristomal/breast fold redness, moisture damage/ cellulitis) Results Result Diagram: 05/28/17 0515 05/31/17 0434 SHADI CALDERON NP May 31, 2017 08:45
[2017-05-31] MEDS: NYSTATIN 30 GM POWDER BTL TOP SCH ×2 (08:50→21:13)
[2017-05-31] MEDS: COLLAGENASE 30 GM TUBE TOP SCH (08:52)
[2017-05-31] MEDS: HEPARIN 5,000 UNIT/0.5 ML VIAL SC SCH ×2 (08:59→21:09)
[2017-05-31] MEDS: MIDODRINE 5 MG TAB GTB SCH ×3 (09:00→17:00)
[2017-05-31] MEDS: FAT EMULSION 20% 250 ML IV SCH (12:04)
[2017-05-31] MEDS: TPN 1,000 ML IV SCH (14:16)
--- NOTE | 2017-05-31 14:33 | CONS ---
Date/Time of Note Date/Time of Note DATE: 05/31/17 TIME: 14:32 Consult Date/Type/Reason Admit Date/Time May 06, 2017 at 16:34 Initial Consult Date 05/22/17 Type of Consultation: CARDIOLOGY Ordering Provider: OSMAR ROSAS DO Subjective CARDIOLOGY FOLLOW UP NOTE: Discussed with staff and rhythm was reviewed d/w Dr Rosas pt remains in NSR. NO AFIB seen pt remains NONVERBAL. pt is still ICU on dopamine drip still unable to wean off so far, but able to lower dose down to 1 sylvia now. pt is on TPN now. OBJECTIVE: General: no acute distress. s/p trach on vent. HEENT: NC/AT. NECK: NO JVD. no stridor. S/P trach on vent CV: RRR. systolic murmur; no gallop or rubs. PULM: no wheezing anteriorly GI: SOFT, NT, ND, no rebound or guarding s/p dressing at the site of previous G tube Extremity: + B/L LE and UE edema. no clubbing. neuro: opens her eyes to painful stimuli. does not follow commands Psych: calm rectal: deferred Objective Vital Signs Date Time Temp Pulse Resp B/P Pulse Ox O2 Delivery O2 Flow Rate FiO2 05/31/17 13:10 72 16 100 30 05/31/17 10:45 109/49 05/31/17 10:15 Mechanical Ventilator 05/31/17 08:00 97.4 Intake and Output 05/30/17 05/30/17 05/31/17 14:59 22:59 06:59 Intake Total 1265.34 ml 1136.99 ml 766.41 ml Output Total 555 ml 830 ml 1430 ml Balance 710.34 ml 306.99 ml -663.59 ml Results/Medications Result Diagram: 05/28/17 0515 05/31/17 0434 Results 24 hrs Laboratory Tests Test 05/30/17 17:28 05/30/17 22:00 05/31/17 04:34 05/31/17 05:42 Bedside Glucose 83 130 92 Sodium Level 132 L Potassium Level 4.8 Chloride Level 103 Carbon Dioxide Level 17 L Anion Gap 17 H Blood Urea Nitrogen 21 H Creatinine 1.66 H Glucose Level 109 # Calcium Level 8.7 Phosphorus Level 4.5 Magnesium Level 1.9 Test 05/31/17 09:05 05/31/17 14:09 Bedside Glucose 131 133 Medications Current Medications Atorvastatin Calcium (Lipitor) 10 mg QHS GTB Last administered on 05/19/17 21: 00; Admin Dose 10 MG; Start 05/06/17 at 21:00 Bisacodyl (Dulcolax Supp) 10 mg Q48H LA Last administered on 05/22/17 16:38; Admin Dose 10 MG; Start 05/06/17 at 17:00 Carbidopa/Levodopa (Sinemet (25/ 100)) 1 tab TID GTB Last administered on 22:02; Admin Dose 1 TAB; Start 05/06/17 at 21:00 Clopidogrel Bisulfate (plaVIX) 75 mg DAILY GTB Last administered on 05/17/17 10:40; Admin Dose 75 MG; Start 05/07/17 at 09:00; Status Future Hold Donepezil HCl (Aricept) 10 mg QHS GTB Last administered on 05/19/17 21:00; Admin Dose 10 MG; Start 05/06/17 at 21:00 Ferrous Sulfate (Ferrous Sulfate (Ec)) 325 mg BID PO Last administered on 09:09; Admin Dose 325 MG; Start 05/06/17 at 21:00 Folic Acid (Folic Acid) 1 mg DAILY GTB Last administered on 05/22/17 09:09; Admin Dose 1 MG; Start 05/07/17 at 09:00 Lactobacillus Acidophilus/ Rhamnosus (Culturelle) 1 cap QHS GTB Last administered on 05/19/17 21:00; Admin Dose 1 CAP; Start 05/06/17 at 21:00 Magnesium Hydroxide (Milk Of Mag) 30 ml Q24H GTB Last administered on 05/22/17 16:38; Admin Dose 30 ML; Start 05/06/17 at 17:00 Memantine (Namenda) 5 mg QAM GTB Last administered on 05/22/17 09:10; Admin Dose 5 MG; Start 05/07/17 at 09:00 Metoprolol Tartrate (Lopressor) 25 mg Q12H GTB Last administered on 05/18/17 16:47; Admin Dose 25 MG; Start 05/06/17 at 17:00; Status Future Hold Multivit/Ca Carb/ B Cmplx/FA/Prenat (Radhika-John) 1 tab DAILY GTB Last administered on 05/22/17 09:09; Admin Dose 1 TAB; Start 05/07/17 at 09:00 Pramipexole (Mirapex) 0.5 mg DAILY GTB Last administered on 05/22/17 09:09; Admin Dose 0.5 MG; Start 05/07/17 at 09:00 Sodium Biphosphate/ Sodium Phosphate (Fleet Enema Pediatric) 118 ml Q72H PRN [place] CONSTIPATION; Start 05/06/17 at 17:00 Citric Acid/ Sodium Citrate (Bicitra) 30 ml BID PO Last administered on 09:09; Admin Dose 30 ML; Start 05/06/17 at 21:00 Nystatin (Nystatin Powder) 1 applic BID TOP Last administered on 05/31/17 08: 50; Admin Dose 1 APPLIC; Start 05/09/17 at 21:00 Collagenase (Santyl) 1 applic DAILY TOP Last administered on 05/31/17 08:52; Admin Dose 1 APPLIC; Start 05/09/17 at 15:00 Collagenase 1 applic 1 applic PRN PRN TOP WOUND CARE; Start 05/09/17 at 14:00 Norepinephrine 16 mg/Dextrose 500 ml @ 1.87 mls/hr TITRATE IV ; Start 05/10/17 at 14:00 Dopamine HCl/ Dextrose 250 ml @ 6.848 mls/ hr TITRATE IV Last administered on 05/31/17 06:18; Admin Dose 6.848 MLS/HR; Start 05/10/17 at 18:30 Miscellaneous Information 1 ea NOTE XX ; Start 05/11/17 at 08:00 Glucose (Glutose) 15 gm Q15M PRN PO DECREASED GLUCOSE; Start 05/11/17 at 08:00 Glucose (Glutose) 22.5 gm Q15M PRN PO DECREASED GLUCOSE; Start 05/11/17 at 08: 00 Dextrose (D50w Syringe) 25 ml Q15M PRN IV DECREASED GLUCOSE Last administered on 05/28/17 00:53; Admin Dose 25 ML; Start 05/11/17 at 08:00 Dextrose (D50w Syringe) 50 ml Q15M PRN IV DECREASED GLUCOSE Last administered on 05/15/17 00:11; Admin Dose 50 ML; Start 05/11/17 at 08:00 Glucagon (Glucagen) 1 mg Q15M PRN IM DECREASED GLUCOSE; Start 05/11/17 at 08:00 Glucose (Glutose) 15 gm Q15M PRN BUCCAL DECREASED GLUCOSE; Start 05/11/17 at 08 :00 Epoetin Vasyl (Epogen (Esrd)) 10,000 units MoWeFr@17 SC Last administered on 05/29 16:35; Admin Dose 10,000 UNITS; Start 05/13/17 at 17:00 IV Flush 10 ml 10 ml PRN PRN IV IV PROTOCOL; Start 05/15/17 at 17:30 Trimethoprim/ Sulfamethoxazole/ Dextrose (Bactrim/D5W) 260 ml @ 173.333 mls/hr Q8 IVPB Last administered on 05/31/17 14:16; Admin Dose 173.333 MLS/HR; Start 05/19/17 at 21:00 Amikacin Sulfate AMIKACIN PER PHARMACY NOTE XX ; Start 05/19/17 at 18:00 Cefepime HCl 0.5 gm/Sodium Chloride 100 ml @ 100 mls/hr Q24H IVPB Last administered on 05/30/17 20:12; Admin Dose 100 MLS/HR; Start 05/19/17 at 20:00 Amikacin Sulfate/ Sodium Chloride (Amikacin/NS) 101.4 ml @ 101.4 mls/ hr Q96H IVPB Last administered on 05/27/17 22:04; Admin Dose 101.4 MLS/HR; Start at 21:00 Midodrine (Proamatine) 10 mg TID@,,17 GTB ; Start 05/23/17 at 09:00 Heparin Sodium (Porcine) (Heparin (5000 Units/0.5 ml)) 5,000 unit BID SC Last administered on 05/31/17 08:59; Admin Dose 5,000 UNIT; Start 05/23/17 at 09:00 Insulin Aspart NOVOLOG *MILD* ALGORI... Q4 SC Last administered on 05/27/17 04: 50; Admin Dose 1 UNIT; Start 05/26/17 at 09:00 Total Parenteral Nutrition 1,000 ml @ 40 mls/hr Q24H IV Last administered on 14:16; Admin Dose 40 MLS/HR; Start 05/27/17 at 14:00 Fat Emulsion Intravenous (Liposyn Ii 20%) 250 ml @ 31.25 mls/ hr Q24H IV Last administered on 05/31/17 12:04; Admin Dose 31.25 MLS/HR; Start 05/28/17 at 10:00 Famotidine 20 mg 20 mg DAILY IV Last administered on 05/31/17 08:41; Admin Dose 20 MG; Start 05/29/17 at 09:00 Dextrose/Sodium Chloride (D5-NS) 1,000 ml @ 50 mls/hr Q20H IV Last administered on 05/31/17 05:13; Admin Dose 50 MLS/HR; Start 05/30/17 at 08:30 Hydrocortisone (Solu-Cortef) 50 mg Q8 IV Last administered on 05/31/17 14:17; Admin Dose 50 MG; Start 05/30/17 at 14:00 Assessment/Plan Chief Complaint/Hosp Course 1. hypoxemic resp failure: s/p trach 2. Pafib; currently in NSR 3. hx HTN: now in shock and hypotensive. : STILL requires DOPAMINE DRIP 4. encephalopathy 5. renal failure: f/u with nephrology 6. dysphagia 7. G tube malfunction/ infection: unable to repair by GI. 8. GI bleed 9. severe anemia 10. malnutrition 11. anasarca and fluid overload. will cont dopamine drip and titrate off once BP remains stable. cont resp care nutritional support. CONT ICU care as long as pt is on pressors correct lytes prn off of PLAVIX DUE TO ANEMIA/ BLEEDING. pt is also NPO and unable to take po meds. F/U with GI and surgery rec. nutritional support. CODE STATUS IS chemical code only now. THANK YOU. Problems: MILAGROS MUNOZ MD May 31, 2017 14:33
--- NOTE | 2017-05-31 14:48 | CONS ---
Date/Time of Note Date/Time of Note DATE: 05/31/17 TIME: 14:47 Consult Date/Type/Reason Admit Date/Time May 06, 2017 at 16:34 Initial Consult Date 05/10/17 Type of Consultation: Pulmonary Ordering Provider: OSMAR MONTAGUE DO Subjective Patient stable no significant changes. Continues low-dose dopamine. Objective Vital Signs Date Time Temp Pulse Resp B/P Pulse Ox O2 Delivery O2 Flow Rate FiO2 05/31/17 13:10 72 16 100 30 05/31/17 10:45 109/49 05/31/17 10:15 Mechanical Ventilator 05/31/17 08:00 97.4 Intake and Output 05/30/17 05/30/17 05/31/17 15:00 23:00 07:00 Intake Total 1194.80 ml 1204.11 ml 659.29 ml Output Total 580 ml 755 ml 1530 ml Balance 614.80 ml 449.11 ml -870.71 ml Exam PHYSICAL EXAMINATION GENERAL: Elderly lady chronically ill-appearing on mechanical ventilation via tracheostomy VITAL SIGNS: see below. HEENT: Pupils equal, round, and reactive to light. Tracheostomy site clean and intact. CARDIAC: S1, S2, 2/6 systolic ejection murmur CHEST: Diminished air entry bilaterally. ABDOMEN: Mildly distended. Bowel sounds present no guarding or rebound EXTREMITIES: No cyanosis, clubbing edema +2 NEUROLOGIC: Generalized weakness Results/Medications Result Diagram: 05/28/17 0515 05/31/17 0434 Results 24 hrs Laboratory Tests Test 05/30/17 17:28 05/30/17 22:00 05/31/17 04:34 05/31/17 05:42 Bedside Glucose 83 130 92 Sodium Level 132 L Potassium Level 4.8 Chloride Level 103 Carbon Dioxide Level 17 L Anion Gap 17 H Blood Urea Nitrogen 21 H Creatinine 1.66 H Glucose Level 109 # Calcium Level 8.7 Phosphorus Level 4.5 Magnesium Level 1.9 Test 05/31/17 09:05 05/31/17 14:09 Bedside Glucose 131 133 Medications Current Medications Atorvastatin Calcium (Lipitor) 10 mg QHS GTB Last administered on 05/19/17 21: 00; Admin Dose 10 MG; Start 05/06/17 at 21:00 Bisacodyl (Dulcolax Supp) 10 mg Q48H NE Last administered on 05/22/17 16:38; Admin Dose 10 MG; Start 05/06/17 at 17:00 Carbidopa/Levodopa (Sinemet (25/ 100)) 1 tab TID GTB Last administered on 22:02; Admin Dose 1 TAB; Start 05/06/17 at 21:00 Clopidogrel Bisulfate (plaVIX) 75 mg DAILY GTB Last administered on 05/17/17 10:40; Admin Dose 75 MG; Start 05/07/17 at 09:00; Status Future Hold Donepezil HCl (Aricept) 10 mg QHS GTB Last administered on 05/19/17 21:00; Admin Dose 10 MG; Start 05/06/17 at 21:00 Ferrous Sulfate (Ferrous Sulfate (Ec)) 325 mg BID PO Last administered on 09:09; Admin Dose 325 MG; Start 05/06/17 at 21:00 Folic Acid (Folic Acid) 1 mg DAILY GTB Last administered on 05/22/17 09:09; Admin Dose 1 MG; Start 05/07/17 at 09:00 Lactobacillus Acidophilus/ Rhamnosus (Culturelle) 1 cap QHS GTB Last administered on 05/19/17 21:00; Admin Dose 1 CAP; Start 05/06/17 at 21:00 Magnesium Hydroxide (Milk Of Mag) 30 ml Q24H GTB Last administered on 05/22/17 16:38; Admin Dose 30 ML; Start 05/06/17 at 17:00 Memantine (Namenda) 5 mg QAM GTB Last administered on 05/22/17 09:10; Admin Dose 5 MG; Start 05/07/17 at 09:00 Metoprolol Tartrate (Lopressor) 25 mg Q12H GTB Last administered on 05/18/17 16:47; Admin Dose 25 MG; Start 05/06/17 at 17:00; Status Future Hold Multivit/Ca Carb/ B Cmplx/FA/Prenat (Radhika-John) 1 tab DAILY GTB Last administered on 05/22/17 09:09; Admin Dose 1 TAB; Start 05/07/17 at 09:00 Pramipexole (Mirapex) 0.5 mg DAILY GTB Last administered on 05/22/17 09:09; Admin Dose 0.5 MG; Start 05/07/17 at 09:00 Sodium Biphosphate/ Sodium Phosphate (Fleet Enema Pediatric) 118 ml Q72H PRN NE CONSTIPATION; Start 05/06/17 at 17:00 Citric Acid/ Sodium Citrate (Bicitra) 30 ml BID PO Last administered on 09:09; Admin Dose 30 ML; Start 05/06/17 at 21:00 Nystatin (Nystatin Powder) 1 applic BID TOP Last administered on 05/31/17 08: 50; Admin Dose 1 APPLIC; Start 05/09/17 at 21:00 Collagenase (Santyl) 1 applic DAILY TOP Last administered on 05/31/17 08:52; Admin Dose 1 APPLIC; Start 05/09/17 at 15:00 Collagenase 1 applic 1 applic PRN PRN TOP WOUND CARE; Start 05/09/17 at 14:00 Norepinephrine 16 mg/Dextrose 500 ml @ 1.87 mls/hr TITRATE IV ; Start 05/10/17 at 14:00 Dopamine HCl/ Dextrose 250 ml @ 6.848 mls/ hr TITRATE IV Last administered on 05/31/17 06:18; Admin Dose 6.848 MLS/HR; Start 05/10/17 at 18:30 Miscellaneous Information 1 ea NOTE XX ; Start 05/11/17 at 08:00 Glucose (Glutose) 15 gm Q15M PRN PO DECREASED GLUCOSE; Start 05/11/17 at 08:00 Glucose (Glutose) 22.5 gm Q15M PRN PO DECREASED GLUCOSE; Start 05/11/17 at 08: 00 Dextrose (D50w Syringe) 25 ml Q15M PRN IV DECREASED GLUCOSE Last administered on 05/28/17 00:53; Admin Dose 25 ML; Start 05/11/17 at 08:00 Dextrose (D50w Syringe) 50 ml Q15M PRN IV DECREASED GLUCOSE Last administered on 05/15/17 00:11; Admin Dose 50 ML; Start 05/11/17 at 08:00 Glucagon (Glucagen) 1 mg Q15M PRN IM DECREASED GLUCOSE; Start 05/11/17 at 08:00 Glucose (Glutose) 15 gm Q15M PRN BUCCAL DECREASED GLUCOSE; Start 05/11/17 at 08 :00 Epoetin Vasyl (Epogen (Esrd)) 10,000 units MoWeFr@17 SC Last administered on 05/29 16:35; Admin Dose 10,000 UNITS; Start 05/13/17 at 17:00 IV Flush 10 ml 10 ml PRN PRN IV IV PROTOCOL; Start 05/15/17 at 17:30 Trimethoprim/ Sulfamethoxazole/ Dextrose (Bactrim/D5W) 260 ml @ 173.333 mls/hr Q8 IVPB Last administered on 05/31/17 14:16; Admin Dose 173.333 MLS/HR; Start 05/19/17 at 21:00 Amikacin Sulfate AMIKACIN PER PHARMACY NOTE XX ; Start 05/19/17 at 18:00 Cefepime HCl 0.5 gm/Sodium Chloride 100 ml @ 100 mls/hr Q24H IVPB Last administered on 05/30/17 20:12; Admin Dose 100 MLS/HR; Start 05/19/17 at 20:00 Amikacin Sulfate/ Sodium Chloride (Amikacin/NS) 101.4 ml @ 101.4 mls/ hr Q96H IVPB Last administered on 05/27/17 22:04; Admin Dose 101.4 MLS/HR; Start at 21:00 Midodrine (Proamatine) 10 mg TID@,,17 GTB ; Start 05/23/17 at 09:00 Heparin Sodium (Porcine) (Heparin (5000 Units/0.5 ml)) 5,000 unit BID SC Last administered on 05/31/17 08:59; Admin Dose 5,000 UNIT; Start 05/23/17 at 09:00 Insulin Aspart NOVOLOG *MILD* ALGORI... Q4 SC Last administered on 05/27/17 04: 50; Admin Dose 1 UNIT; Start 05/26/17 at 09:00 Total Parenteral Nutrition 1,000 ml @ 40 mls/hr Q24H IV Last administered on 14:16; Admin Dose 40 MLS/HR; Start 05/27/17 at 14:00 Fat Emulsion Intravenous (Liposyn Ii 20%) 250 ml @ 31.25 mls/ hr Q24H IV Last administered on 05/31/17 12:04; Admin Dose 31.25 MLS/HR; Start 05/28/17 at 10:00 Famotidine 20 mg 20 mg DAILY IV Last administered on 05/31/17 08:41; Admin Dose 20 MG; Start 05/29/17 at 09:00 Dextrose/Sodium Chloride (D5-NS) 1,000 ml @ 50 mls/hr Q20H IV Last administered on 05/31/17 05:13; Admin Dose 50 MLS/HR; Start 05/30/17 at 08:30 Hydrocortisone (Solu-Cortef) 50 mg Q8 IV Last administered on 05/31/17 14:17; Admin Dose 50 MG; Start 05/30/17 at 14:00 Assessment/Plan Chief Complaint/Hosp Course Additional Assessment/Plan IMP: 1. Septic shock remains vasopressor dependent. Continues dopamine. 2. VDRF 3. Possible healthcare associated pneumonia 4. Cellulitis 5. Urosepsis 6. Encephalopathy chronic, vegetative state 7. STARLA RECS: 1. Pressors to MAP > 65 mmHg 2. Vent support 3. Palliative Care consultation. Bioethics recs. 4. TF's/Free H20 5. dvt prophylaxis 6. Continue hydrocortisone for relative adrenal insufficiency Critical care time 35 minutes. Problems: JARED CLAIRE MD, [facility] May 31, 2017 14:48
--- NOTE | 2017-05-31 16:35 | CONS ---
Date/Time of Note Date/Time of Note DATE: 05/31/17 TIME: 16:32 Assessment/Plan Assessment/Plan Problems: (1) Hypotension Status: Acute Comment: Moderate improvement with addition of hydrocortisone 50 mg IV q8. Regardless of working or non-working adrenal glands, ok to continue hydrocortisone at this dose for now. Consultation Date/Type/Reason Admit Date/Time May 06, 2017 at 16:34 Initial Consult Date 05/30/17 Type of Consultation: Endocrinology Reason for Consultation R/o Adrenal Insufficiency Referring Provider: OSMAR MONTAGUE DO 24 HR Interval Summary Subjective hx not possible: pt non-verbal, pt critical status Exam/Review of Systems Vital Signs Vitals VS - Last 72 Hours, by Label Date Time Temp Pulse Resp B/P Pulse Ox O2 Delivery O2 Flow Rate FiO2 05/31/17 15:30 74 17 113/58 100 Mechanical Ventilator 05/31/17 15:30 83 17 100 30 05/31/17 15:15 74 16 124/49 100 Mechanical Ventilator 05/31/17 15:00 73 18 126/47 100 Mechanical Ventilator 05/31/17 14:45 73 14 119/50 100 Mechanical Ventilator 05/31/17 14:30 74 15 120/63 99 Mechanical Ventilator 05/31/17 14:15 83 17 126/63 99 Mechanical Ventilator 05/31/17 14:00 73 16 118/55 100 Mechanical Ventilator 05/31/17 13:45 76 17 116/58 100 Mechanical Ventilator 05/31/17 13:30 83 17 129/61 100 Mechanical Ventilator 05/31/17 13:15 69 16 93/41 99 Mechanical Ventilator 05/31/17 13:10 72 16 100 30 05/31/17 12:45 71 17 110/41 99 Mechanical Ventilator 05/31/17 12:30 73 17 113/44 99 Mechanical Ventilator 05/31/17 12:15 72 16 114/58 100 Mechanical Ventilator 05/31/17 12:00 81 16 121/50 100 Mechanical Ventilator 05/31/17 12:00 71 05/31/17 11:45 82 16 120/47 100 Mechanical Ventilator 05/31/17 11:45 81 16 99 30 05/31/17 11:30 72 16 104/50 100 Mechanical Ventilator 05/31/17 11:15 72 17 112/50 99 Mechanical Ventilator 05/31/17 11:00 72 16 111/60 99 Mechanical Ventilator 05/31/17 10:45 72 16 109/49 100 05/31/17 10:30 72 16 103/48 100 05/31/17 10:15 71 16 102/41 100 Mechanical Ventilator 05/31/17 10:00 71 16 106/37 100 Mechanical Ventilator 05/31/17 09:50 82 16 100 30 05/31/17 09:45 72 16 92/36 100 Mechanical Ventilator 05/31/17 09:30 71 16 100/36 100 Mechanical Ventilator 05/31/17 09:15 83 16 98/45 100 Mechanical Ventilator 05/31/17 09:00 84 16 100/43 100 Mechanical Ventilator 05/31/17 08:45 85 16 115/52 100 Mechanical Ventilator 05/31/17 08:30 85 16 121/58 100 Mechanical Ventilator 05/31/17 08:15 85 16 111/63 99 Mechanical Ventilator 05/31/17 08:00 97.4 86 16 115/53 99 Mechanical Ventilator 05/31/17 08:00 30 05/31/17 08:00 86 05/31/17 07:45 86 16 106/70 98 Mechanical Ventilator 05/31/17 07:30 86 16 118/55 94 Mechanical Ventilator 05/31/17 07:20 86 17 99 30 05/31/17 07:15 86 16 117/50 99 Mechanical Ventilator 05/31/17 07:00 86 16 124/53 99 Mechanical Ventilator 05/31/17 05:45 87 16 118/59 100 Mechanical Ventilator 05/31/17 05:36 87 16 100 30 05/31/17 05:30 87 18 131/53 100 Mechanical Ventilator 05/31/17 05:15 87 19 121/54 100 Mechanical Ventilator 05/31/17 05:00 87 17 125/47 100 Mechanical Ventilator 05/31/17 04:45 87 18 132/57 100 Mechanical Ventilator 05/31/17 04:30 87 16 134/82 100 Mechanical Ventilator 05/31/17 04:15 87 14 143/57 100 Mechanical Ventilator 05/31/17 04:00 87 05/31/17 04:00 98.3 87 16 134/59 100 Mechanical Ventilator 05/31/17 03:45 88 16 142/61 100 Mechanical Ventilator 05/31/17 03:30 88 17 144/63 100 Mechanical Ventilator 05/31/17 03:15 90 15 151/83 100 Mechanical Ventilator 05/31/17 03:00 90 13 142/90 100 Mechanical Ventilator 05/31/17 03:00 86 17 100 30 05/31/17 02:45 88 16 158/75 100 Mechanical Ventilator 05/31/17 02:30 82 16 142/62 100 Mechanical Ventilator 05/31/17 02:15 87 16 100/51 100 Mechanical Ventilator 05/31/17 02:00 92 16 154/66 100 Mechanical Ventilator 05/31/17 01:45 93 20 144/62 100 Mechanical Ventilator 05/31/17 01:30 86 19 110/45 100 Mechanical Ventilator 05/31/17 01:15 92 20 95/59 100 Mechanical Ventilator 05/31/17 01:00 92 16 129/57 100 Mechanical Ventilator 05/31/17 00:45 92 18 128/52 100 Mechanical Ventilator 05/31/17 00:45 90 16 100 30 05/31/17 00:30 86 15 126/57 100 Mechanical Ventilator 05/31/17 00:15 86 14 93/40 100 Mechanical Ventilator 05/31/17 00:00 98.1 86 17 134/72 100 Mechanical Ventilator 05/31/17 00:00 85 05/30/17 23:45 86 16 133/53 99 Mechanical Ventilator 05/30/17 23:30 91 17 140/56 99 Mechanical Ventilator 05/30/17 23:19 93 16 100 30 05/30/17 23:15 92 15 140/55 100 Mechanical Ventilator 05/30/17 23:00 89 16 133/56 99 Mechanical Ventilator 05/30/17 22:45 89 19 134/55 100 Mechanical Ventilator 05/30/17 22:30 91 18 128/51 98 Mechanical Ventilator 05/30/17 22:15 85 18 122/51 100 Mechanical Ventilator 05/30/17 22:00 93 22 119/55 99 Mechanical Ventilator 05/30/17 21:45 91 18 125/66 99 Mechanical Ventilator 05/30/17 21:40 97 17 100 30 05/30/17 21:30 90 17 122/49 100 Mechanical Ventilator 05/30/17 21:15 91 16 119/49 100 Mechanical Ventilator 05/30/17 21:00 87 17 122/50 100 Mechanical Ventilator 05/30/17 20:45 90 16 118/61 100 Mechanical Ventilator 05/30/17 20:30 90 16 129/46 100 Mechanical Ventilator 05/30/17 20:15 88 17 119/49 99 Mechanical Ventilator 05/30/17 20:00 89 05/30/17 20:00 97.5 89 14 125/47 100 Mechanical Ventilator 05/30/17 20:00 30 05/30/17 19:45 89 16 121/52 100 Mechanical Ventilator 05/30/17 19:35 90 18 99 30 05/30/17 19:30 87 16 115/51 100 Mechanical Ventilator 05/30/17 19:15 87 16 119/50 100 Mechanical Ventilator 05/30/17 19:00 86 16 117/51 100 Mechanical Ventilator 05/30/17 18:45 86 16 121/50 100 05/30/17 18:30 86 17 117/53 100 05/30/17 18:15 85 16 73/34 100 05/30/17 18:00 83 16 94/40 100 Mechanical Ventilator 05/30/17 17:45 83 16 96/41 100 05/30/17 17:30 86 18 93/54 100 05/30/17 17:25 82 17 100 30 05/30/17 17:15 86 17 102/40 100 05/30/17 17:00 85 17 100 Mechanical Ventilator 05/30/17 16:45 81 23 82/28 99 05/30/17 16:30 86 17 101/51 100 05/30/17 16:15 85 16 114/51 99 05/30/17 16:00 96.0 75 17 110/53 100 Mechanical Ventilator 05/30/17 16:00 78 05/30/17 15:45 76 14 122/57 100 05/30/17 15:35 85 18 100 30 05/30/17 15:30 78 17 120/53 100 05/30/17 15:15 82 25 101/84 100 05/30/17 15:00 84 16 115/52 100 Mechanical Ventilator 05/30/17 14:45 84 16 114/63 100 05/30/17 14:30 76 16 109/62 100 05/30/17 14:15 76 16 89/58 100 05/30/17 14:00 78 16 104/51 100 Mechanical Ventilator 05/30/17 13:45 74 16 100 30 05/30/17 13:45 75 16 100/47 100 05/30/17 13:30 75 22 110/50 100 Mechanical Ventilator 05/30/17 13:15 74 16 92/51 100 05/30/17 13:00 76 16 101/48 100 Mechanical Ventilator 05/30/17 12:45 77 16 101/45 100 05/30/17 12:30 73 16 118/50 100 Mechanical Ventilator 05/30/17 12:15 77 15 115/51 100 05/30/17 12:00 76 05/30/17 12:00 94.1 76 16 121/69 100 Mechanical Ventilator 05/30/17 11:45 73 16 128/66 100 05/30/17 11:30 74 21 126/62 100 05/30/17 11:25 75 16 100 30 05/30/17 11:15 74 16 128/61 100 05/30/17 11:00 75 16 134/57 100 Mechanical Ventilator 05/30/17 10:00 75 17 90/41 100 Mechanical Ventilator 05/30/17 09:50 75 17 100 30 05/30/17 09:00 75 17 138/65 100 Mechanical Ventilator 05/30/17 08:00 30 05/30/17 08:00 75 05/30/17 08:00 Bag Valve Mask 05/30/17 08:00 95.1 73 16 126/63 100 Mechanical Ventilator 05/30/17 07:50 74 16 100 30 05/30/17 07:00 79 19 69/38 100 Mechanical Ventilator 05/30/17 06:45 77 16 100 05/30/17 06:30 76 16 100 05/30/17 06:15 76 15 100 05/30/17 06:00 85 16 117/73 100 Mechanical Ventilator 05/30/17 05:45 74 16 100 05/30/17 05:15 78 19 100 30 05/30/17 05:00 73 17 142/53 100 Mechanical Ventilator 05/30/17 04:45 77 18 131/59 100 Mechanical Ventilator 05/30/17 04:30 84 15 130/57 100 Mechanical Ventilator 05/30/17 04:15 75 16 128/60 100 Mechanical Ventilator 05/30/17 04:00 30 05/30/17 04:00 85 05/30/17 04:00 97.7 78 18 126/52 100 Mechanical Ventilator 05/30/17 03:45 80 20 76/34 100 Mechanical Ventilator 05/30/17 03:30 86 22 116/68 100 Mechanical Ventilator 05/30/17 03:15 84 17 128/60 100 Mechanical Ventilator 05/30/17 03:00 76 12 98 Mechanical Ventilator 05/30/17 03:00 85 20 100 30 05/30/17 02:45 79 16 118/53 100 Mechanical Ventilator 05/30/17 02:30 78 16 113/70 100 Mechanical Ventilator 05/30/17 02:15 84 16 112/56 100 Mechanical Ventilator 05/30/17 02:00 78 17 115/58 100 Mechanical Ventilator 05/30/17 01:45 76 17 114/65 100 Mechanical Ventilator 05/30/17 01:30 76 17 109/59 100 Mechanical Ventilator 05/30/17 01:15 85 16 113/62 100 Mechanical Ventilator 05/30/17 01:10 80 18 100 30 05/30/17 01:00 87 16 120/64 100 Mechanical Ventilator 05/30/17 00:45 85 17 108/64 100 05/30/17 00:30 76 16 110/84 100 Mechanical Ventilator 05/30/17 00:15 75 16 115/47 100 Mechanical Ventilator 05/30/17 00:00 97.6 83 16 112/59 100 Mechanical Ventilator 05/30/17 00:00 83 05/29/17 23:45 84 16 111/46 100 Mechanical Ventilator 05/29/17 23:30 84 16 112/65 100 Mechanical Ventilator 05/29/17 23:15 85 17 120/53 100 Mechanical Ventilator 05/29/17 23:00 74 17 100 30 05/29/17 23:00 76 16 115/53 100 Mechanical Ventilator 05/29/17 22:15 75 18 89/47 100 Mechanical Ventilator 05/29/17 22:00 85 21 95/53 92 Mechanical Ventilator 05/29/17 21:45 84 15 126/61 100 Mechanical Ventilator 05/29/17 21:30 82 18 119/62 100 Mechanical Ventilator 05/29/17 21:15 76 16 114/49 100 Mechanical Ventilator 05/29/17 21:15 77 17 100 30 05/29/17 21:00 78 15 116/53 100 Mechanical Ventilator 05/29/17 20:45 85 17 115/55 100 Mechanical Ventilator 05/29/17 20:30 83 17 116/57 100 Mechanical Ventilator 05/29/17 20:15 84 16 123/58 100 Mechanical Ventilator 05/29/17 20:00 30 05/29/17 20:00 84 17 108/51 100 Mechanical Ventilator 8/9/17 20:00 79 8/9/17 19:45 97.5 84 16 118/63 100 Mechanical Ventilator 8/9/17 19:30 85 16 121/51 100 Mechanical Ventilator 8/9/17 19:15 76 18 123/57 100 Mechanical Ventilator 8/9/17 19:00 79 16 117/65 100 Mechanical Ventilator 8/9/17 19:00 84 16 100 30 8/9/17 17:30 85 17 100 30 8/9/17 16:45 85 17 121/53 100 8/9/17 16:30 86 19 127/40 98 8/9/17 16:15 86 20 90/79 100 8/9/17 16:00 86 8/9/17 16:00 97.9 86 18 117/59 98 Mechanical Ventilator 89/17 15:45 86 18 111/78 100 8/9/17 15:35 89 17 100 30 8/9/17 15:30 86 17 106/45 99 8/9/17 15:15 87 20 97/43 100 89/17 15:00 87 19 114/44 100 Mechanical Ventilator 817 14:45 87 18 129/42 100 8/9/17 14:30 86 17 126/51 99 8/9/17 14:15 87 17 127/51 100 89/17 14:00 80 19 122/100 100 Mechanical Ventilator 17 13:50 83 16 100 30 8/9/17 13:45 86 19 120/64 99 8/9/17 13:30 86 18 122/55 99 8/9/17 13:15 86 18 118/54 99 8/9/17 13:00 86 18 129/57 99 Mechanical Ventilator 89/17 12:45 87 17 119/54 99 8/9/17 12:30 86 18 120/58 99 8/9/17 12:15 98.3 85 18 112/45 98 Mechanical Ventilator 8/9/17 12:00 86 8/9/17 11:45 85 17 110/45 99 8/9/17 11:40 76 17 100 30 8/9/17 11:15 81 17 109/44 100 8/9/17 11:00 84 21 80/48 100 Mechanical Ventilator 8/9/17 10:45 84 18 112/46 100 8/9/17 10:15 83 16 117/48 100 8/9/17 10:00 77 16 105/50 100 Mechanical Ventilator 8/9/17 09:45 77 16 111/46 100 8/9/17 09:35 85 16 100 30 8/9/17 09:30 84 16 118/54 100 8/9/17 09:15 84 17 113/49 100 8/9/17 09:00 84 17 113/49 100 Mechanical Ventilator 8/9/17 08:45 77 16 106/45 100 8/9/17 08:30 78 19 57/22 98 8/9/17 08:15 85 19 90/72 100 8/9/17 08:00 30 8/9/17 08:00 98.1 84 17 97/69 100 Mechanical Ventilator 8/9/17 08:00 85 8/9/17 07:45 79 17 114/50 100 8/9/17 07:40 84 17 100 30 8/9/17 07:30 77 18 101/32 99 8/9/17 07:15 84 16 114/43 100 8/9/17 07:00 77 16 102/38 100 Mechanical Ventilator 8/9/17 05:33 86 16 100 30 8/9/17 04:15 85 20 96/45 100 8/9/17 04:00 85 8/9/17 04:00 97.3 84 19 106/44 100 Mechanical Ventilator 8/9/17 03:45 76 18 115/45 100 8/9/17 03:30 83 19 120/61 100 8/9/17 03:24 78 16 100 30 8/9/17 03:15 84 20 90/75 100 8/9/17 03:00 76 18 107/52 100 Mechanical Ventilator 8/9/17 02:45 84 18 111/49 100 8/9/17 02:30 84 18 97/40 100 8/9/17 02:15 80 17 95/58 100 8/9/17 02:00 85 18 106/47 100 Mechanical Ventilator 8/9/17 01:45 84 18 112/43 100 8/9/17 01:30 84 21 100/46 100 8/9/17 01:16 85 16 100 30 8/9/17 01:15 84 19 108/58 100 8/9/17 01:00 77 18 97/43 100 Mechanical Ventilator 8/9/17 00:45 88 18 102/41 100 8/9/17 00:30 85 18 101/38 100 05/29/17 00:15 79 16 105/41 100 05/29/17 00:00 85 05/29/17 00:00 97.7 84 18 101/53 100 Mechanical Ventilator 05/28/17 23:45 87 21 102/65 100 05/28/17 23:42 85 20 97 30 05/28/17 23:30 85 19 117/52 100 05/28/17 23:15 86 17 123/55 98 05/28/17 23:00 77 20 122/49 100 Mechanical Ventilator 05/28/17 22:45 85 18 118/60 100 05/28/17 22:30 85 16 133/64 100 05/28/17 22:15 84 19 107/43 100 05/28/17 22:00 87 18 108/54 100 Mechanical Ventilator 05/28/17 21:45 85 21 111/59 100 05/28/17 21:30 85 20 106/46 100 05/28/17 21:18 78 19 100 30 05/28/17 21:15 85 15 118/45 100 05/28/17 21:00 85 18 116/54 100 Mechanical Ventilator 05/28/17 20:45 85 18 107/52 100 05/28/17 20:30 85 18 120/42 100 05/28/17 20:15 79 16 101/36 100 05/28/17 20:00 85 05/28/17 20:00 30 05/28/17 20:00 97.4 85 19 109/48 100 Mechanical Ventilator 05/28/17 19:45 88 19 104/46 100 05/28/17 19:30 85 19 120/50 100 05/28/17 19:27 76 18 100 30 05/28/17 19:15 83 17 103/52 100 05/28/17 19:00 87 19 75/43 100 Mechanical Ventilator 05/28/17 17:45 87 19 107/43 100 05/28/17 17:30 87 19 114/46 100 05/28/17 17:15 87 19 100 30 05/28/17 17:15 87 17 126/57 100 05/28/17 17:00 87 18 113/46 100 Mechanical Ventilator 05/28/17 16:45 87 18 118/53 100 Vital Signs Date Time Temp Pulse Resp B/P Pulse Ox O2 Delivery O2 Flow Rate FiO2 05/31/17 15:30 74 17 113/58 100 Mechanical Ventilator 05/31/17 15:30 30 05/31/17 08:00 97.4 Intake and Output 05/30/17 05/30/17 05/31/17 15:00 23:00 07:00 Intake Total 1194.80 ml 1204.11 ml 659.29 ml Output Total 580 ml 755 ml 1530 ml Balance 614.80 ml 449.11 ml -870.71 ml Exam Constitutional: frail, non-verbal, No alert Neck: other ((+) trach on vent) Respiratory: clear to auscultation, normal air movement Cardiovascular: edema (1+ BLE), nl pulses, regular rate and rhythm, No murmurs/extra sounds, No rub Gastrointestinal: bowel sounds, nl liver, spleen, non-tender, soft, No mass, No rebound or guarding Extremities: edema (1+ BLE), normal pulses, No clubbing, No cyanosis Neurological: unresponsive Additional Comments Bedside Glucose - 72 Hours Test 05/28/17 21:07 05/29/17 01:19 05/29/17 05:11 05/29/17 08:42 Bedside Glucose 78mg/dL (70-220) 74mg/dL (70-220) 70mg/dL (70-220) 81mg/dL (70-220) Test 05/29/17 12:11 05/29/17 16:34 05/29/17 22:00 05/30/17 01:38 Bedside Glucose 85mg/dL (70-220) 91mg/dL (70-220) 96mg/dL (70-220) 79mg/dL (70-220) Test 05/30/17 06:03 05/30/17 10:15 05/30/17 13:17 05/30/17 17:28 Bedside Glucose 79mg/dL (70-220) 75mg/dL (70-220) 82mg/dL (70-220) 83mg/dL (70-220) Test 05/30/17 22:00 05/31/17 05:42 05/31/17 09:05 05/31/17 14:09 Bedside Glucose 130mg/dL (70-220) 92mg/dL (70-220) 131mg/dL (70-220) 133mg/dL (70-220) Results Result Diagram: 05/28/17 0515 05/31/17 0434 Results 24 hrs Laboratory Tests Test 05/30/17 17:28 05/30/17 22:00 05/31/17 04:34 05/31/17 05:42 Bedside Glucose 83 130 92 Sodium Level 132 L Potassium Level 4.8 Chloride Level 103 Carbon Dioxide Level 17 L Anion Gap 17 H Blood Urea Nitrogen 21 H Creatinine 1.66 H Glucose Level 109 # Calcium Level 8.7 Phosphorus Level 4.5 Magnesium Level 1.9 Test 05/31/17 09:05 05/31/17 14:09 Bedside Glucose 131 133 Medications Medications Current Medications Atorvastatin Calcium (Lipitor) 10 mg QHS GTB Last administered on 05/19/17 21: 00; Admin Dose 10 MG; Start 05/06/17 at 21:00 Bisacodyl (Dulcolax Supp) 10 mg Q48H VA Last administered on 05/22/17 16:38; Admin Dose 10 MG; Start 05/06/17 at 17:00 Carbidopa/Levodopa (Sinemet (25/ 100)) 1 tab TID GTB Last administered on 22:02; Admin Dose 1 TAB; Start 05/06/17 at 21:00 Clopidogrel Bisulfate (plaVIX) 75 mg DAILY GTB Last administered on 05/17/17 10:40; Admin Dose 75 MG; Start 05/07/17 at 09:00; Status Future Hold Donepezil HCl (Aricept) 10 mg QHS GTB Last administered on 05/19/17 21:00; Admin Dose 10 MG; Start 05/06/17 at 21:00 Ferrous Sulfate (Ferrous Sulfate (Ec)) 325 mg BID PO Last administered on 09:09; Admin Dose 325 MG; Start 05/06/17 at 21:00 Folic Acid (Folic Acid) 1 mg DAILY GTB Last administered on 05/22/17 09:09; Admin Dose 1 MG; Start 05/07/17 at 09:00 Lactobacillus Acidophilus/ Rhamnosus (Culturelle) 1 cap QHS GTB Last administered on 05/19/17 21:00; Admin Dose 1 CAP; Start 05/06/17 at 21:00 Magnesium Hydroxide (Milk Of Mag) 30 ml Q24H GTB Last administered on 05/22/17 16:38; Admin Dose 30 ML; Start 05/06/17 at 17:00 Memantine (Namenda) 5 mg QAM GTB Last administered on 05/22/17 09:10; Admin Dose 5 MG; Start 05/07/17 at 09:00 Metoprolol Tartrate (Lopressor) 25 mg Q12H GTB Last administered on 05/18/17 16:47; Admin Dose 25 MG; Start 05/06/17 at 17:00; Status Future Hold Multivit/Ca Carb/ B Cmplx/FA/Prenat (Radhika-John) 1 tab DAILY GTB Last administered on 05/22/17 09:09; Admin Dose 1 TAB; Start 05/07/17 at 09:00 Pramipexole (Mirapex) 0.5 mg DAILY GTB Last administered on 05/22/17 09:09; Admin Dose 0.5 MG; Start 05/07/17 at 09:00 Sodium Biphosphate/ Sodium Phosphate (Fleet Enema Pediatric) 118 ml Q72H PRN VA CONSTIPATION; Start 05/06/17 at 17:00 Citric Acid/ Sodium Citrate (Bicitra) 30 ml BID PO Last administered on 09:09; Admin Dose 30 ML; Start 05/06/17 at 21:00 Nystatin (Nystatin Powder) 1 applic BID TOP Last administered on 05/31/17 08: 50; Admin Dose 1 APPLIC; Start 05/09/17 at 21:00 Collagenase (Santyl) 1 applic DAILY TOP Last administered on 05/31/17 08:52; Admin Dose 1 APPLIC; Start 05/09/17 at 15:00 Collagenase 1 applic 1 applic PRN PRN TOP WOUND CARE; Start 05/09/17 at 14:00 Norepinephrine 16 mg/Dextrose 500 ml @ 1.87 mls/hr TITRATE IV ; Start 05/10/17 at 14:00 Dopamine HCl/ Dextrose 250 ml @ 6.848 mls/ hr TITRATE IV Last administered on 05/31/17 06:18; Admin Dose 6.848 MLS/HR; Start 05/10/17 at 18:30 Miscellaneous Information 1 ea NOTE XX ; Start 05/11/17 at 08:00 Glucose (Glutose) 15 gm Q15M PRN PO DECREASED GLUCOSE; Start 05/11/17 at 08:00 Glucose (Glutose) 22.5 gm Q15M PRN PO DECREASED GLUCOSE; Start 05/11/17 at 08: 00 Dextrose (D50w Syringe) 25 ml Q15M PRN IV DECREASED GLUCOSE Last administered on 05/28/17 00:53; Admin Dose 25 ML; Start 05/11/17 at 08:00 Dextrose (D50w Syringe) 50 ml Q15M PRN IV DECREASED GLUCOSE Last administered on 05/15/17 00:11; Admin Dose 50 ML; Start 05/11/17 at 08:00 Glucagon (Glucagen) 1 mg Q15M PRN IM DECREASED GLUCOSE; Start 05/11/17 at 08:00 Glucose (Glutose) 15 gm Q15M PRN BUCCAL DECREASED GLUCOSE; Start 05/11/17 at 08 :00 Epoetin Vasyl (Epogen (Esrd)) 10,000 units MoWeFr@17 SC Last administered on 05/29 16:35; Admin Dose 10,000 UNITS; Start 05/13/17 at 17:00 IV Flush 10 ml 10 ml PRN PRN IV IV PROTOCOL; Start 05/15/17 at 17:30 Trimethoprim/ Sulfamethoxazole/ Dextrose (Bactrim/D5W) 260 ml @ 173.333 mls/hr Q8 IVPB Last administered on 05/31/17 14:16; Admin Dose 173.333 MLS/HR; Start 05/19/17 at 21:00 Amikacin Sulfate AMIKACIN PER PHARMACY NOTE XX ; Start 05/19/17 at 18:00 Cefepime HCl 0.5 gm/Sodium Chloride 100 ml @ 100 mls/hr Q24H IVPB Last administered on 05/30/17 20:12; Admin Dose 100 MLS/HR; Start 05/19/17 at 20:00 Amikacin Sulfate/ Sodium Chloride (Amikacin/NS) 101.4 ml @ 101.4 mls/ hr Q96H IVPB Last administered on 05/27/17 22:04; Admin Dose 101.4 MLS/HR; Start at 21:00 Midodrine (Proamatine) 10 mg TID@,,17 GTB ; Start 05/23/17 at 09:00 Heparin Sodium (Porcine) (Heparin (5000 Units/0.5 ml)) 5,000 unit BID SC Last administered on 05/31/17 08:59; Admin Dose 5,000 UNIT; Start 05/23/17 at 09:00 Insulin Aspart NOVOLOG *MILD* ALGORI... Q4 SC Last administered on 05/27/17 04: 50; Admin Dose 1 UNIT; Start 05/26/17 at 09:00 Total Parenteral Nutrition 1,000 ml @ 40 mls/hr Q24H IV Last administered on 14:16; Admin Dose 40 MLS/HR; Start 05/27/17 at 14:00 Fat Emulsion Intravenous (Liposyn Ii 20%) 250 ml @ 31.25 mls/ hr Q24H IV Last administered on 05/31/17 12:04; Admin Dose 31.25 MLS/HR; Start 05/28/17 at 10:00 Famotidine 20 mg 20 mg DAILY IV Last administered on 05/31/17 08:41; Admin Dose 20 MG; Start 05/29/17 at 09:00 Dextrose/Sodium Chloride (D5-NS) 1,000 ml @ 50 mls/hr Q20H IV Last administered on 05/31/17 05:13; Admin Dose 50 MLS/HR; Start 05/30/17 at 08:30 Hydrocortisone (Solu-Cortef) 50 mg Q8 IV Last administered on 05/31/17 14:17; Admin Dose 50 MG; Start 05/30/17 at 14:00 REENA SWANSON MD May 31, 2017 16:35
[2017-05-31] MEDS: MAGNESIUM HYDROXIDE 30ML CUP GTB SCH (17:00)
[2017-05-31] MEDS: EPOETIN 10000 UNITS/1 ML INJ (ESRD) SC SCH (17:18)
[2017-05-31] MEDS: ATORVASTATIN 10 MG TAB GTB SCH ×2 (21:00→21:07)
[2017-05-31] MEDS: DONEPEZIL 10 MG TAB GTB SCH ×2 (21:00→21:07)
[2017-05-31] MEDS: LACTOBACILLUS RHAMNOSUS CAP GTB SCH (21:00)
[2017-05-31] MEDS: BISACODYL 10 MG SUPP PR SCH (21:05)
[2017-05-31] MEDS: CEFEPIME HCL 0.5 GM in SOD CHLORIDE 0.9% 100 ML IVPB SCH (21:06)
[2017-05-31] MEDS: AMIKACIN 350 MG in SOD CHLORIDE 0.9% 100 ML IVPB SCH (21:08)
--- NOTE | 2017-05-31 21:34 | CONS ---
Date/Time of Note Date/Time of Note DATE: 05/31/17 TIME: 21:32 Assessment/Plan Assessment/Plan Chief Complaint/Hosp Course ID PROGRESS NOTE CURRENT ABX DAY => Cefepime #13 + Amikacin #13+ Bactrim IV #13 TOTAL ABX DAY # 22 Colistin INH #10 -> DC 8/6 Merrem#10 => DC 7/30 Vanco IV #10 => DC 7/30 24H INTERVAL SUMMARY * Chronic encephalopathic/vegetative, no new issues, poor prognosis, remains on pressor support aggressive life support measures per sons * Need surgical placement of JT -- not a candidate for repeat GT the EC is too large -- has been too unstable for surgical placement of JT * Chemical code status PHYSICAL EXAMINATION: GENERAL: VSS,NAD, no fevers == Obese, eyes open HEENT: NGT->Secure / ETT secure NECK: Supple, trach-> midline CHEST: Equal chest rise bilaterally, Vented HEART: Pulse RRR ABDOMEN: Soft -> see photos large EC fistula residual healing scar, cellulitis w/(+)drainage EXTREMITIES: Warm, no edema SKIN: Warm, dry ID ASSESSMENT: 86 yo F w/PMHx Obesity,Parkinson's dementia w/chronic encephalopathy admitted with: 1. Sepsis w/shock, hypothermia, leukocytosis, lactic acidosis => multifactorial as below => REMAINS ON PRESSORS * 05/07/17 BCx (-) * 05/09/17 BCx (-) 2. Acute on chronic respiratory failure w/Trach 3. HCAP => Tracheobronchitis * CT (+)Large right pleural effusion/small left effusion * Respiratory Cx 05/14: * Organism 1 PSEUDOMONAS AERUGINOSA * Organism 2 STENOTROPHOMONAS MALTOPHILIA 4. 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 5. UTI as per urinalysis on admission => urine was not sent for culture 6. Multiple chronic decub ulcers 7. RASH on admission s/p empiric Elimite x1 w/(-)skin scraping for scabies 8. Acute kidney injury 9. Diabetes. 10. Acute on chronic anemia. 11. 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 Patient w/persistent septic shock => Continue ABX for GNR MDRO PNA + ABD noah -stoma, cellulitis 2. Despite lengthy course ABX; she has not been able to wean off Dopamine=> Has not been stable to go to OR for JT placement. * GI PLAN: Large gastrocutaneous fistula, endoscopically it is not possible given to keep the largest diameter GJ tube in place=> proceed to placement of JT 3. Patient is chronically encephalopathic, poor quality of life, poor long-term prognosis, and comfort care/Hospice appropriate. * Chem Code Status . . . . Problems: Consultation Date/Type/Reason Admit Date/Time May 06, 2017 at 16:34 Initial Consult Date 05/12/17 Type of Consultation: ID Referring Provider: OSMAR MONTAGUE DO Exam/Review of Systems Vital Signs Vitals Vital Signs Date Time Temp Pulse Resp B/P Pulse Ox O2 Delivery O2 Flow Rate FiO2 05/31/17 20:24 66 05/31/17 20:22 97.6 17 119/49 100 05/31/17 19:41 30 05/31/17 17:15 Mechanical Ventilator Intake and Output 05/30/17 05/30/17 05/31/17 15:00 23:00 07:00 Intake Total 1194.80 ml 1204.11 ml 659.29 ml Output Total 580 ml 755 ml 1530 ml Balance 614.80 ml 449.11 ml -870.71 ml Results Result Diagram: 05/28/17 0515 05/31/17 0434 Results 24 hrs Laboratory Tests Test 05/30/17 22:00 05/31/17 04:34 05/31/17 05:42 05/31/17 09:05 Bedside Glucose 130 92 131 Sodium Level 132 L Potassium Level 4.8 Chloride Level 103 Carbon Dioxide Level 17 L Anion Gap 17 H Blood Urea Nitrogen 21 H Creatinine 1.66 H Glucose Level 109 # Calcium Level 8.7 Phosphorus Level 4.5 Magnesium Level 1.9 Test 05/31/17 14:09 05/31/17 17:08 05/31/17 20:57 Bedside Glucose 133 182 138 Medications Medications Current Medications Atorvastatin Calcium (Lipitor) 10 mg QHS GTB Last administered on 05/19/17 21: 00; Admin Dose 10 MG; Start 05/06/17 at 21:00 Bisacodyl (Dulcolax Supp) 10 mg Q48H MD Last administered on 05/31/17 21:05; Admin Dose 10 MG; Start 05/06/17 at 17:00 Carbidopa/Levodopa (Sinemet (25/ 100)) 1 tab TID GTB Last administered on 22:02; Admin Dose 1 TAB; Start 05/06/17 at 21:00 Donepezil HCl (Aricept) 10 mg QHS GTB Last administered on 05/19/17 21:00; Admin Dose 10 MG; Start 05/06/17 at 21:00 Ferrous Sulfate (Ferrous Sulfate (Ec)) 325 mg BID PO Last administered on 09:09; Admin Dose 325 MG; Start 05/06/17 at 21:00 Folic Acid (Folic Acid) 1 mg DAILY GTB Last administered on 05/22/17 09:09; Admin Dose 1 MG; Start 05/07/17 at 09:00 Lactobacillus Acidophilus/ Rhamnosus (Culturelle) 1 cap QHS GTB Last administered on 05/19/17 21:00; Admin Dose 1 CAP; Start 05/06/17 at 21:00 Magnesium Hydroxide (Milk Of Mag) 30 ml Q24H GTB Last administered on 05/22/17 16:38; Admin Dose 30 ML; Start 05/06/17 at 17:00 Memantine (Namenda) 5 mg QAM GTB Last administered on 05/22/17 09:10; Admin Dose 5 MG; Start 05/07/17 at 09:00 Multivit/Ca Carb/ B Cmplx/FA/Prenat (Radhika-John) 1 tab DAILY GTB Last administered on 05/22/17 09:09; Admin Dose 1 TAB; Start 05/07/17 at 09:00 Pramipexole (Mirapex) 0.5 mg DAILY GTB Last administered on 05/22/17 09:09; Admin Dose 0.5 MG; Start 05/07/17 at 09:00 Sodium Biphosphate/ Sodium Phosphate (Fleet Enema Pediatric) 118 ml Q72H PRN MD CONSTIPATION; Start 05/06/17 at 17:00 Citric Acid/ Sodium Citrate (Bicitra) 30 ml BID PO Last administered on 09:09; Admin Dose 30 ML; Start 05/06/17 at 21:00 Nystatin (Nystatin Powder) 1 applic BID TOP Last administered on 05/31/17 21: 13; Admin Dose 1 APPLIC; Start 05/09/17 at 21:00 Collagenase (Santyl) 1 applic DAILY TOP Last administered on 05/31/17 08:52; Admin Dose 1 APPLIC; Start 05/09/17 at 15:00 Collagenase (Santyl) 1 applic PRN PRN TOP WOUND CARE; Start 05/09/17 at 14:00 Miscellaneous Information 1 ea NOTE XX ; Start 05/11/17 at 08:00 Glucose (Glutose) 15 gm Q15M PRN PO DECREASED GLUCOSE; Start 05/11/17 at 08:00 Glucose (Glutose) 22.5 gm Q15M PRN PO DECREASED GLUCOSE; Start 05/11/17 at 08: 00 Dextrose (D50w Syringe) 25 ml Q15M PRN IV DECREASED GLUCOSE Last administered on 05/28/17 00:53; Admin Dose 25 ML; Start 05/11/17 at 08:00 Dextrose (D50w Syringe) 50 ml Q15M PRN IV DECREASED GLUCOSE Last administered on 05/15/17 00:11; Admin Dose 50 ML; Start 05/11/17 at 08:00 Glucagon (Glucagen) 1 mg Q15M PRN IM DECREASED GLUCOSE; Start 05/11/17 at 08:00 Glucose (Glutose) 15 gm Q15M PRN BUCCAL DECREASED GLUCOSE; Start 05/11/17 at 08 :00 Epoetin Vasyl (Epogen (Esrd)) 10,000 units MoWeFr@17 SC Last administered on 17:18; Admin Dose 10,000 UNITS; Start 05/13/17 at 17:00 IV Flush 10 ml 10 ml PRN PRN IV IV PROTOCOL; Start 05/15/17 at 17:30 Trimethoprim/ Sulfamethoxazole/ Dextrose (Bactrim/D5W) 260 ml @ 173.333 mls/hr Q8 IVPB Last administered on 05/31/17 14:16; Admin Dose 173.333 MLS/HR; Start 05/19/17 at 21:00 Amikacin Sulfate AMIKACIN PER PHARMACY NOTE XX ; Start 05/19/17 at 18:00 Cefepime HCl 0.5 gm/Sodium Chloride 100 ml @ 100 mls/hr Q24H IVPB Last administered on 05/31/17 21:06; Admin Dose 100 MLS/HR; Start 05/19/17 at 20:00 Amikacin Sulfate/ Sodium Chloride (Amikacin/NS) 101.4 ml @ 101.4 mls/ hr Q96H IVPB Last administered on 05/31/17 21:08; Admin Dose 101.4 MLS/HR; Start at 21:00 Midodrine (Proamatine) 10 mg TID@09,13,17 GTB ; Start 05/23/17 at 09:00 Heparin Sodium (Porcine) (Heparin (5000 Units/0.5 ml)) 5,000 unit BID SC Last administered on 05/31/17 21:09; Admin Dose 5,000 UNIT; Start 05/23/17 at 09:00 Insulin Aspart NOVOLOG *MILD* ALGORI... Q4 SC Last administered on 05/31/17 17 :12; Admin Dose 2 UNIT; Start 05/26/17 at 09:00 Total Parenteral Nutrition 1,000 ml @ 40 mls/hr Q24H IV Last administered on 14:16; Admin Dose 40 MLS/HR; Start 05/27/17 at 14:00 Fat Emulsion Intravenous (Liposyn Ii 20%) 250 ml @ 31.25 mls/ hr Q24H IV Last administered on 05/31/17 12:04; Admin Dose 31.25 MLS/HR; Start 05/28/17 at 10:00 Famotidine 20 mg 20 mg DAILY IV Last administered on 05/31/17 08:41; Admin Dose 20 MG; Start 05/29/17 at 09:00 Dextrose/Sodium Chloride (D5-NS) 1,000 ml @ 50 mls/hr Q20H IV Last administered on 05/31/17 05:13; Admin Dose 50 MLS/HR; Start 05/30/17 at 08:30 Hydrocortisone (Solu-Cortef) 50 mg Q8 IV Last administered on 05/31/17 21:13; Admin Dose 50 MG; Start 05/30/17 at 14:00 SYLVIA PADRON NP May 31, 2017 21:34
--- NOTE | 2017-05-31 21:58 | CONS ---
Date/Time of Note Date/Time of Note DATE: 05/31/17 TIME: 21:57 Assessment/Plan Assessment/Plan Chief Complaint/Hosp Course This 69-year-old female with a history of CVA vent dependent respiratory failure , was brought to the emergency room for the dislodgment of the GJ tube. Patient is nonverbal and no information can be obtained. No GI bleeding no chest pain no shortness of breath. Problems: Additional Assessment/Plan Additional Assessment/Plan Additional Assessment/Plan 1. Dislodged GJ tube accidentally 2. Vent dependent respiratory failure 3. Chronic encephalopathy 4. Renal failure 5. Peripheral vascular disease 6. Anemia 7. Large gastrocutaneous fistula, endoscopically it is not possible to keep the largest diameter GJ tube in place 8. Hypotension needs dopamine to maintain the blood pressure 9. Decubitus ulcer 10. Workup for adrenal insufficiency,pt. on steroid now Plan Continue all supportive care Surgery to fix the gastrocutaneous fistula once patient is off dopamine Consultation Date/Type/Reason Admit Date/Time May 06, 2017 at 16:34 Type of Consultation: ID Referring Provider: OSMAR MONTAGUE DO 24 HR Interval Summary Subjective hx not possible: pt non-verbal, pt critical Exam/Review of Systems Vital Signs Vitals Vital Signs Date Time Temp Pulse Resp B/P Pulse Ox O2 Delivery O2 Flow Rate FiO2 05/31/17 20:24 66 05/31/17 20:22 97.6 17 119/49 100 05/31/17 19:41 30 05/31/17 17:15 Mechanical Ventilator Intake and Output 05/30/17 05/30/17 05/31/17 15:00 23:00 07:00 Intake Total 1194.80 ml 1204.11 ml 659.29 ml Output Total 580 ml 755 ml 1530 ml Balance 614.80 ml 449.11 ml -870.71 ml Exam Constitutional: alert, oriented, well developed Psych: nl mood/affect, no complaints Head: atraumatic, normocephalic Eyes: EOMI, PERRL, nl conjunctiva, nl lids, nl sclera ENMT: nl external ears & nose, nl lips & teeth, nl nasal mucosa & septum Neck: non-tender, supple Respiratory: clear to auscultation, normal air movement Cardiovascular: nl pulses, regular rate and rhythm Gastrointestinal: nl liver, spleen, non-tender, soft Musculoskeletal: nl extremities to inspection, nl gait and stance Extremities: normal pulses Neurological: P[employer] SU[employer]OR II-XII intact, nl mental status, nl speech, nl strength Skin: nl turgor, No rash or lesions Lymph: nl lymph nodes Results Result Diagram: 05/28/17 0515 05/31/17 0434 Results 24 hrs Laboratory Tests Test 05/30/17 22:00 05/31/17 04:34 05/31/17 05:42 05/31/17 09:05 Bedside Glucose 130 92 131 Sodium Level 132 L Potassium Level 4.8 Chloride Level 103 Carbon Dioxide Level 17 L Anion Gap 17 H Blood Urea Nitrogen 21 H Creatinine 1.66 H Glucose Level 109 # Calcium Level 8.7 Phosphorus Level 4.5 Magnesium Level 1.9 Test 05/31/17 14:09 05/31/17 17:08 05/31/17 20:57 Bedside Glucose 133 182 138 Medications Medications Current Medications Atorvastatin Calcium (Lipitor) 10 mg QHS GTB Last administered on 05/19/17 21: 00; Admin Dose 10 MG; Start 05/06/17 at 21:00 Bisacodyl (Dulcolax Supp) 10 mg Q48H NV Last administered on 05/31/17 21:05; Admin Dose 10 MG; Start 05/06/17 at 17:00 Carbidopa/Levodopa (Sinemet (25/ 100)) 1 tab TID GTB Last administered on 22:02; Admin Dose 1 TAB; Start 05/06/17 at 21:00 Donepezil HCl (Aricept) 10 mg QHS GTB Last administered on 05/19/17 21:00; Admin Dose 10 MG; Start 05/06/17 at 21:00 Ferrous Sulfate (Ferrous Sulfate (Ec)) 325 mg BID PO Last administered on 09:09; Admin Dose 325 MG; Start 05/06/17 at 21:00 Folic Acid (Folic Acid) 1 mg DAILY GTB Last administered on 05/22/17 09:09; Admin Dose 1 MG; Start 05/07/17 at 09:00 Lactobacillus Acidophilus/ Rhamnosus (Culturelle) 1 cap QHS GTB Last administered on 05/19/17 21:00; Admin Dose 1 CAP; Start 05/06/17 at 21:00 Magnesium Hydroxide (Milk Of Mag) 30 ml Q24H GTB Last administered on 05/22/17 16:38; Admin Dose 30 ML; Start 05/06/17 at 17:00 Memantine (Namenda) 5 mg QAM GTB Last administered on 05/22/17 09:10; Admin Dose 5 MG; Start 05/07/17 at 09:00 Multivit/Ca Carb/ B Cmplx/FA/Prenat (Radhika-John) 1 tab DAILY GTB Last administered on 05/22/17 09:09; Admin Dose 1 TAB; Start 05/07/17 at 09:00 Pramipexole (Mirapex) 0.5 mg DAILY GTB Last administered on 05/22/17 09:09; Admin Dose 0.5 MG; Start 05/07/17 at 09:00 Sodium Biphosphate/ Sodium Phosphate (Fleet Enema Pediatric) 118 ml Q72H PRN NV CONSTIPATION; Start 05/06/17 at 17:00 Citric Acid/ Sodium Citrate (Bicitra) 30 ml BID PO Last administered on 09:09; Admin Dose 30 ML; Start 05/06/17 at 21:00 Nystatin (Nystatin Powder) 1 applic BID TOP Last administered on 05/31/17 21: 13; Admin Dose 1 APPLIC; Start 05/09/17 at 21:00 Collagenase (Santyl) 1 applic DAILY TOP Last administered on 05/31/17 08:52; Admin Dose 1 APPLIC; Start 05/09/17 at 15:00 Collagenase (Santyl) 1 applic PRN PRN TOP WOUND CARE; Start 05/09/17 at 14:00 Miscellaneous Information 1 ea NOTE XX ; Start 05/11/17 at 08:00 Glucose (Glutose) 15 gm Q15M PRN PO DECREASED GLUCOSE; Start 05/11/17 at 08:00 Glucose (Glutose) 22.5 gm Q15M PRN PO DECREASED GLUCOSE; Start 05/11/17 at 08: 00 Dextrose (D50w Syringe) 25 ml Q15M PRN IV DECREASED GLUCOSE Last administered on 05/28/17 00:53; Admin Dose 25 ML; Start 05/11/17 at 08:00 Dextrose (D50w Syringe) 50 ml Q15M PRN IV DECREASED GLUCOSE Last administered on 05/15/17 00:11; Admin Dose 50 ML; Start 05/11/17 at 08:00 Glucagon (Glucagen) 1 mg Q15M PRN IM DECREASED GLUCOSE; Start 05/11/17 at 08:00 Glucose (Glutose) 15 gm Q15M PRN BUCCAL DECREASED GLUCOSE; Start 05/11/17 at 08 :00 Epoetin Vasyl (Epogen (Esrd)) 10,000 units MoWeFr@17 SC Last administered on 17:18; Admin Dose 10,000 UNITS; Start 05/13/17 at 17:00 IV Flush 10 ml 10 ml PRN PRN IV IV PROTOCOL; Start 05/15/17 at 17:30 Trimethoprim/ Sulfamethoxazole/ Dextrose (Bactrim/D5W) 260 ml @ 173.333 mls/hr Q8 IVPB Last administered on 05/31/17 14:16; Admin Dose 173.333 MLS/HR; Start 05/19/17 at 21:00 Amikacin Sulfate AMIKACIN PER PHARMACY NOTE XX ; Start 05/19/17 at 18:00 Cefepime HCl 0.5 gm/Sodium Chloride 100 ml @ 100 mls/hr Q24H IVPB Last administered on 05/31/17 21:06; Admin Dose 100 MLS/HR; Start 05/19/17 at 20:00 Amikacin Sulfate/ Sodium Chloride (Amikacin/NS) 101.4 ml @ 101.4 mls/ hr Q96H IVPB Last administered on 05/31/17 21:08; Admin Dose 101.4 MLS/HR; Start at 21:00 Midodrine (Proamatine) 10 mg TID@,,17 GTB ; Start 05/23/17 at 09:00 Heparin Sodium (Porcine) (Heparin (5000 Units/0.5 ml)) 5,000 unit BID SC Last administered on 05/31/17 21:09; Admin Dose 5,000 UNIT; Start 05/23/17 at 09:00 Insulin Aspart NOVOLOG *MILD* ALGORI... Q4 SC Last administered on 05/31/17 17 :12; Admin Dose 2 UNIT; Start 05/26/17 at 09:00 Total Parenteral Nutrition 1,000 ml @ 40 mls/hr Q24H IV Last administered on 14:16; Admin Dose 40 MLS/HR; Start 05/27/17 at 14:00 Fat Emulsion Intravenous (Liposyn Ii 20%) 250 ml @ 31.25 mls/ hr Q24H IV Last administered on 05/31/17 12:04; Admin Dose 31.25 MLS/HR; Start 05/28/17 at 10:00 Famotidine 20 mg 20 mg DAILY IV Last administered on 05/31/17 08:41; Admin Dose 20 MG; Start 05/29/17 at 09:00 Dextrose/Sodium Chloride (D5-NS) 1,000 ml @ 50 mls/hr Q20H IV Last administered on 05/31/17 05:13; Admin Dose 50 MLS/HR; Start 05/30/17 at 08:30 Hydrocortisone (Solu-Cortef) 50 mg Q8 IV Last administered on 05/31/17 21:13; Admin Dose 50 MG; Start 05/30/17 at 14:00 SYLWIA SY MD May 31, 2017 21:58
[2017-06-01] VITALS (44 sets, daily range): BP systolic 84–126; BP diastolic 38–77; PULSE 58–82; RESP 14–22
[2017-06-01] MEDS: DEXTROSE 5%-0.9% NACL 1,000 ML IV SCH (00:30)
[2017-06-01] MEDS: INSULIN ASPART [NOVOLOG] 3 ML PEN SC SCH ×6 (01:00→21:32)
[2017-06-01] MEDS: TRIMETHOPRIM/SULFAMETHOXAZOLE 10 ML in DEXTROSE 5% 250 ML IVPB SCH ×4 (01:13→21:39)
[2017-06-01] MEDS: ALTEPLASE (CATHFLO) 2 MG INJ CATHETER PRN (01:20)
[2017-06-01] MEDS ORDERED: SOD CHLORIDE 0.9% 1,000 ML IV ONE (01:30)
[2017-06-01] MEDS: HYDROCORTISONE 100 MG INJ IV SCH ×3 (05:46→21:39)
[2017-06-01 05:55] LABS: ABNORMAL IP MESSAGE 1; HEMATOCRIT 23.4 % (37.0-47.0); HEMOGLOBIN 7.4 g/dl (12.0-16.0); LYMPHOCYTES # 0.6 10^3/ul (0.8-2.9); LYMPHOCYTES % 13.9 % (15.0-51.0); MEAN CORPUSCULAR HEMOGLOBIN 28.8 pg (29.0-33.0); MEAN CORPUSCULAR HGB CONC 31.6 g/dl (32.0-37.0); MEAN CORPUSCULAR VOLUME 91.1 fl (82.0-101.0); MEAN PLATELET VOLUME 10.9 fl (7.4-10.4); MONOCYTE # 0.2 10^3/ul (0.3-0.9); MONOCYTES % 4.5 % (0.0-11.0); NEUTROPHIL # 3.2 10^3/ul (1.6-7.5); NEUTROPHILS % 80.6 % (39.0-77.0); PLATELET COUNT 89 10^3/UL (140-415); RED BLOOD COUNT 2.57 10^6/ul (4.20-5.40); RED CELL DISTRIBUTION WIDTH 17.2 % (11.5-14.5)
[2017-06-01 06:06] LABS: CALCIUM 8.5 mg/dl (8.4-10.2); CREATININE 1.9 mg/dl (0.44-1.00); MAGNESIUM 1.9 mg/dl (1.7-2.5); PHOSPHORUS 4.5 mg/dl (2.5-4.9); POTASSIUM 4.1 mmol/L (3.5-5.1)
[2017-06-01 06:19] LABS: POSITIVE DIFF @See below
[2017-06-01] MEDS: FAMOTIDINE 20 MG INJ IV SCH (08:13)
[2017-06-01] MEDS: HEPARIN 5,000 UNIT/0.5 ML VIAL SC SCH ×2 (08:18→20:37)
[2017-06-01] MEDS: FOLIC ACID 1 MG TAB GTB SCH (09:00)
[2017-06-01] MEDS: FERROUS SULFATE (EC) 325 MG TAB PO SCH ×2 (09:00→20:27)
[2017-06-01] MEDS: CITRIC ACID/NA CITRATE 30 ML CUP PO SCH ×2 (09:00→20:27)
[2017-06-01] MEDS: CARBIDOPA/LEVODOPA (25/100) TAB GTB SCH ×3 (09:00→20:27)
[2017-06-01] MEDS: MULTIVIT/CA CARB/B CMPLX/FA TAB GTB SCH (09:00)
[2017-06-01] MEDS: MIDODRINE 5 MG TAB GTB SCH ×3 (09:00→17:00)
[2017-06-01] MEDS: MEMANTINE 5 MG TAB GTB SCH (09:00)
[2017-06-01] MEDS: COLLAGENASE 30 GM TUBE TOP SCH (09:00)
[2017-06-01] MEDS: PRAMIPEXOLE 0.25 MG TAB GTB SCH (09:00)
[2017-06-01] MEDS: NYSTATIN 30 GM POWDER BTL TOP SCH ×2 (09:19→21:30)
--- NOTE | 2017-06-01 09:55 | PN ---
DATE: 06/01/2017 SUBJECTIVE DATA: The patient was transferred from Intensive Care Unit to Telemetry. The patient's blood pressure has improved. No other events noted. OBJECTIVE DATA: VITAL SIGNS: Blood pressure is 99/59, respirations 15, pulse 66, temperature 98. HEENT: Head is normocephalic. NECK: Supple. HEART: Regular rate. LUNGS: Diminished breath sounds at the base. ABDOMEN: Soft, nontender to palpation. No rebound or guarding. EXTREMITIES: Negative for clubbing, cyanosis. Positive edema. Positive contractures. DERMATOLOGIC: No rashes. MUSCULOSKELETAL: No joint effusion. NEUROLOGIC: No change in exam. MEDICATIONS: Reviewed. LABORATORY AND DIAGNOSTIC DATA: Shows a sodium 132, potassium 4.1 chloride 102, BUN 25, creatinine 1.90. White count 4, hemoglobin 7.4, hematocrit 23.4, platelet count is 89,000. ASSESSMENT AND PLAN: 1. Septic shock. The patient is currently off pressor support. Unclear if there is a questionable adrenal component, but the patient's blood pressure seemed to improve once stress steroids were started. At this point, continue antibiotic regimen and monitor closely. 2. Questionable adrenal insufficiency. The patient is currently on stress steroids. Appreciate endocrinology evaluation. Will continue follow up recommendations. 3. Anemia. The patient had a drop in hemoglobin and hematocrit. This may be dilutional. Repeat another complete blood count from peripheral line. 4. Gastrocutaneous fistula. The patient is being followed by General Surgery. Pending possible gastrostomy tube placement. 5. Ventilatory-dependent respiratory failure. Ventilator settings reviewed. Arterial blood gases reviewed. Continue to monitor. 6. Nonoliguric acute kidney injury on top of chronic kidney disease. Etiology to hemodynamics. Renal function is stable. Continue current treatment plan. 7. Acute encephalopathy and advanced dementia. Etiology toxic metabolic. Continue to monitor. 8. Volume overload. The patient has noted lower extremity edema. Will anticipate gentle diuresis if hemodynamics remained stable. 9. Diabetes. Continue Accu-Cheks and sliding scale. 10. Gastrointestinal and deep venous thrombosis prophylaxis. Continue proton pump inhibitors and heparin. 11. Nutrition. Continue total parenteral nutrition. 12. Decubitus wound. Continue wound care. 13. Hyponatremia. The patient is receiving no free water flushes. Will continue to monitor. Dictated By: Brendan Rosas DO /junie/douglas /Document#: [id number]
[2017-06-01 09:56] LABS: ABNORMAL IP MESSAGE 1; HEMATOCRIT 24.7 % (37.0-47.0); HEMOGLOBIN 7.9 g/dl (12.0-16.0); LYMPHOCYTES # 0.7 10^3/ul (0.8-2.9); LYMPHOCYTES % 17.7 % (15.0-51.0); MEAN CORPUSCULAR HEMOGLOBIN 29.6 pg (29.0-33.0); MEAN CORPUSCULAR VOLUME 92.5 fl (82.0-101.0); MEAN PLATELET VOLUME 10.7 fl (7.4-10.4); MONOCYTE # 0.2 10^3/ul (0.3-0.9); MONOCYTES % 4.1 % (0.0-11.0); NEUTROPHIL # 3.2 10^3/ul (1.6-7.5); NEUTROPHILS % 77.5 % (39.0-77.0); RED BLOOD COUNT 2.67 10^6/ul (4.20-5.40); RED CELL DISTRIBUTION WIDTH 17.3 % (11.5-14.5); WHITE BLOOD COUNT 4.2 10^3/ul (4.8-10.8)
[2017-06-01 10:03] LABS: PLATELET COUNT 86 10^3/UL (140-415)
[2017-06-01] MEDS: ALBUMIN HUMAN 25% 100 ML IV SCH ×2 (11:23→20:14)
[2017-06-01] MEDS: FAT EMULSION 20% 250 ML IV SCH (12:37)
--- NOTE | 2017-06-01 13:15 | CONS ---
Date/Time of Note Date/Time of Note DATE: 06/01/17 TIME: 13:12 Consult Date/Type/Reason Admit Date/Time May 06, 2017 at 16:34 Initial Consult Date 05/10/17 Type of Consultation: Pulmonary Ordering Provider: OSMAR MONTAGUE DO Subjective No significant changes. Remains essentially unresponsive. Objective Vital Signs Date Time Temp Pulse Resp B/P Pulse Ox O2 Delivery O2 Flow Rate FiO2 06/01/17 12:12 61 06/01/17 11:42 98.6 18 104/55 99 06/01/17 11:00 30 05/31/17 17:15 Mechanical Ventilator Intake and Output 05/31/17 05/31/17 06/01/17 14:59 22:59 06:59 Output Total 560 ml 225 ml Balance -560 ml -225 ml Exam PHYSICAL EXAMINATION GENERAL: Elderly lady chronically ill-appearing on mechanical ventilation via tracheostomy VITAL SIGNS: see below. HEENT: Pupils equal, round, and reactive to light. Tracheostomy site clean and intact. CARDIAC: S1, S2, 2/6 systolic ejection murmur CHEST: Diminished air entry bilaterally. ABDOMEN: Mildly distended. Bowel sounds present no guarding or rebound EXTREMITIES: No cyanosis, clubbing edema +2 NEUROLOGIC: Generalized weakness Results/Medications Result Diagram: 06/01/17 0926 06/01/17 0527 Results 24 hrs Laboratory Tests Test 05/31/17 14:09 05/31/17 17:08 05/31/17 20:57 06/01/17 01:19 Bedside Glucose 133 182 138 121 Test 06/01/17 05:27 06/01/17 05:44 06/01/17 09:14 06/01/17 09:26 White Blood Count 4.0 L 4.2 L Red Blood Count 2.57 #L 2.67 L Hemoglobin 7.4 #L 7.9 L Hematocrit 23.4 #L 24.7 L Mean Corpuscular Volume 91.1 92.5 Mean Corpuscular Hemoglobin 28.8 L 29.6 Mean Corpuscular Hemoglobin Concent 31.6 L 32.0 Red Cell Distribution Width 17.2 H 17.3 H Platelet Count 89 #L 86 L Mean Platelet Volume 10.9 H 10.7 H Neutrophils % 80.6 H 77.5 H Lymphocytes % 13.9 L 17.7 Monocytes % 4.5 4.1 Eosinophils % 0.0 0.0 Basophils % 0.0 0.0 Nucleated Red Blood Cells % 0.0 0.0 Neutrophils # 3.2 3.2 Lymphocytes # 0.6 L 0.7 L Monocytes # 0.2 L 0.2 L Eosinophils # 0.0 0.0 Basophils # 0.0 0.0 Nucleated Red Blood Cells # 0.0 0.0 Sodium Level 132 L Potassium Level 4.1 Chloride Level 102 Carbon Dioxide Level 18 L Anion Gap 16 Blood Urea Nitrogen 25 H Creatinine 1.90 H Glucose Level 133 Calcium Level 8.5 Phosphorus Level 4.5 Magnesium Level 1.9 Bedside Glucose 146 157 Test 06/01/17 12:48 Bedside Glucose 123 Medications Current Medications Atorvastatin Calcium (Lipitor) 10 mg QHS GTB Last administered on 05/19/17 21: 00; Admin Dose 10 MG; Start 05/06/17 at 21:00 Bisacodyl (Dulcolax Supp) 10 mg Q48H [place] Last administered on 05/31/17 21:05; Admin Dose 10 MG; Start 05/06/17 at 17:00 Carbidopa/Levodopa (Sinemet (25/ 100)) 1 tab TID GTB Last administered on 22:02; Admin Dose 1 TAB; Start 05/06/17 at 21:00 Donepezil HCl (Aricept) 10 mg QHS GTB Last administered on 05/19/17 21:00; Admin Dose 10 MG; Start 05/06/17 at 21:00 Ferrous Sulfate (Ferrous Sulfate (Ec)) 325 mg BID PO Last administered on 09:09; Admin Dose 325 MG; Start 05/06/17 at 21:00 Folic Acid (Folic Acid) 1 mg DAILY GTB Last administered on 05/22/17 09:09; Admin Dose 1 MG; Start 05/07/17 at 09:00 Lactobacillus Acidophilus/ Rhamnosus (Culturelle) 1 cap QHS GTB Last administered on 05/19/17 21:00; Admin Dose 1 CAP; Start 05/06/17 at 21:00 Magnesium Hydroxide (Milk Of Mag) 30 ml Q24H GTB Last administered on 05/22/17 16:38; Admin Dose 30 ML; Start 05/06/17 at 17:00 Memantine (Namenda) 5 mg QAM GTB Last administered on 05/22/17 09:10; Admin Dose 5 MG; Start 05/07/17 at 09:00 Multivit/Ca Carb/ B Cmplx/FA/Prenat (Radhika-John) 1 tab DAILY GTB Last administered on 05/22/17 09:09; Admin Dose 1 TAB; Start 05/07/17 at 09:00 Pramipexole (Mirapex) 0.5 mg DAILY GTB Last administered on 05/22/17 09:09; Admin Dose 0.5 MG; Start 05/07/17 at 09:00 Sodium Biphosphate/ Sodium Phosphate (Fleet Enema Pediatric) 118 ml Q72H PRN [place] CONSTIPATION; Start 05/06/17 at 17:00 Citric Acid/ Sodium Citrate (Bicitra) 30 ml BID PO Last administered on 09:09; Admin Dose 30 ML; Start 05/06/17 at 21:00 Nystatin (Nystatin Powder) 1 applic BID TOP Last administered on 06/01/17 09: 19; Admin Dose 1 APPLIC; Start 05/09/17 at 21:00 Collagenase (Santyl) 1 applic DAILY TOP Last administered on 05/31/17 08:52; Admin Dose 1 APPLIC; Start 05/09/17 at 15:00 Collagenase (Santyl) 1 applic PRN PRN TOP WOUND CARE; Start 05/09/17 at 14:00 Miscellaneous Information 1 ea NOTE XX ; Start 05/11/17 at 08:00 Glucose (Glutose) 15 gm Q15M PRN PO DECREASED GLUCOSE; Start 05/11/17 at 08:00 Glucose (Glutose) 22.5 gm Q15M PRN PO DECREASED GLUCOSE; Start 05/11/17 at 08: 00 Dextrose (D50w Syringe) 25 ml Q15M PRN IV DECREASED GLUCOSE Last administered on 05/28/17 00:53; Admin Dose 25 ML; Start 05/11/17 at 08:00 Dextrose (D50w Syringe) 50 ml Q15M PRN IV DECREASED GLUCOSE Last administered on 05/15/17 00:11; Admin Dose 50 ML; Start 05/11/17 at 08:00 Glucagon (Glucagen) 1 mg Q15M PRN IM DECREASED GLUCOSE; Start 05/11/17 at 08:00 Glucose (Glutose) 15 gm Q15M PRN BUCCAL DECREASED GLUCOSE; Start 05/11/17 at 08 :00 Epoetin Vasyl (Epogen (Esrd)) 10,000 units MoWeFr@17 SC Last administered on 17:18; Admin Dose 10,000 UNITS; Start 05/13/17 at 17:00 IV Flush 10 ml 10 ml PRN PRN IV IV PROTOCOL; Start 05/15/17 at 17:30 Trimethoprim/ Sulfamethoxazole/ Dextrose (Bactrim/D5W) 260 ml @ 173.333 mls/hr Q8 IVPB Last administered on 06/01/17 08:05; Admin Dose 173.333 MLS/HR; Start 05/19/17 at 21:00 Amikacin Sulfate AMIKACIN PER PHARMACY NOTE XX ; Start 05/19/17 at 18:00 Cefepime HCl 0.5 gm/Sodium Chloride 100 ml @ 100 mls/hr Q24H IVPB Last administered on 05/31/17 21:06; Admin Dose 100 MLS/HR; Start 05/19/17 at 20:00 Amikacin Sulfate/ Sodium Chloride (Amikacin/NS) 101.4 ml @ 101.4 mls/ hr Q96H IVPB Last administered on 05/31/17 21:08; Admin Dose 101.4 MLS/HR; Start at 21:00 Midodrine (Proamatine) 10 mg TID@09,13,17 GTB ; Start 05/23/17 at 09:00 Heparin Sodium (Porcine) (Heparin (5000 Units/0.5 ml)) 5,000 unit BID SC Last administered on 06/01/17 08:18; Admin Dose 5,000 UNIT; Start 05/23/17 at 09:00 Insulin Aspart NOVOLOG *MILD* ALGORI... Q4 SC Last administered on 06/01/17 09 :16; Admin Dose 1 UNIT; Start 05/26/17 at 09:00 Total Parenteral Nutrition 1,000 ml @ 40 mls/hr Q24H IV Last administered on 14:16; Admin Dose 40 MLS/HR; Start 05/27/17 at 14:00 Fat Emulsion Intravenous (Liposyn Ii 20%) 250 ml @ 31.25 mls/ hr Q24H IV Last administered on 06/01/17 12:37; Admin Dose 31.25 MLS/HR; Start 05/28/17 at 10:00 Famotidine (Pepcid Iv) 20 mg DAILY IV Last administered on 06/01/17 08:13; Admin Dose 20 MG; Start 05/29/17 at 09:00 Hydrocortisone 50 mg 50 mg Q8 IV Last administered on 06/01/17 05:46; Admin Dose 50 MG; Start 05/30/17 at 14:00 Albumin Human (Albumin Human 25%) 100 ml @ 100 mls/hr Q8H IV Last administered on 06/01/17 11:23; Admin Dose 100 MLS/HR; Start 06/01/17 at 12:00 ; Stop 06/02/17 at 04:59 Assessment/Plan Chief Complaint/Hosp Course Additional Assessment/Plan IMP: 1. Septic shock remains vasopressor dependent. Continues dopamine. 2. VDRF 3. Possible healthcare associated pneumonia 4. Cellulitis 5. Urosepsis 6. Encephalopathy chronic, vegetative state 7. STARLA 8. Anemia likely multifactorial. RECS: 1. Consider transfusion 1 unit packed red blood cells 2. Vent support 3. Palliative Care consultation. Bioethics recs. 4. TF's/Free H20 5. dvt prophylaxis 6. Slowly taper hydrocortisone Discharge planning okay from pulmonary standpoint Problems: JARED CLAIRE MD, [facility] Jun 01, 2017 13:14
[2017-06-01] MEDS: TPN 1,000 ML IV SCH ×2 (14:00→23:25)
[2017-06-01] MEDS ORDERED: DOPamine-D5W 1.6 MG/ML 250 ML IV SCH (16:30)
[2017-06-01] MEDS: MAGNESIUM HYDROXIDE 30ML CUP GTB SCH (17:00)
[2017-06-01] MEDS: BISACODYL 10 MG SUPP PR SCH (17:50)
[2017-06-01 18:07] LABS: ABNORMAL IP MESSAGE 1; HEMOGLOBIN 8.8 g/dl (12.0-16.0); LYMPHOCYTES # 0.6 10^3/ul (0.8-2.9); MEAN CORPUSCULAR HEMOGLOBIN 30.1 pg (29.0-33.0); MEAN CORPUSCULAR HGB CONC 32.6 g/dl (32.0-37.0); MEAN CORPUSCULAR VOLUME 92.5 fl (82.0-101.0); MEAN PLATELET VOLUME 10.1 fl (7.4-10.4); MONOCYTE # 0.2 10^3/ul (0.3-0.9); MONOCYTES % 4.2 % (0.0-11.0); NEUTROPHILS % 79.5 % (39.0-77.0); PLATELET COUNT 112 10^3/UL (140-415); RED BLOOD COUNT 2.92 10^6/ul (4.20-5.40); RED CELL DISTRIBUTION WIDTH 17.4 % (11.5-14.5); WHITE BLOOD COUNT 3.8 10^3/ul (4.8-10.8)
[2017-06-01 18:08] LABS: POSITIVE DIFF @See below
[2017-06-01] MEDS: CEFEPIME HCL 0.5 GM in SOD CHLORIDE 0.9% 100 ML IVPB SCH (20:14)
[2017-06-01] MEDS: LACTOBACILLUS RHAMNOSUS CAP GTB SCH (20:17)
[2017-06-01] MEDS: DONEPEZIL 10 MG TAB GTB SCH (20:18)
[2017-06-01] MEDS: ATORVASTATIN 10 MG TAB GTB SCH (20:26)
[2017-06-01] MEDS: SOD CHLORIDE 0.9% 1,000 ML IV SCH (20:28)
--- NOTE | 2017-06-01 22:00 | PN ---
Date/Time of Note Date/Time of Note DATE: 06/01/17 TIME: 22:00 Assessment/Plan Lines/Catheters IV Catheter Type (from Nrs): PICC Line Collazo in Place (from Nrs): Yes Assessment/Plan Chief Complaint/Hosp Course 1. G-tube dislodgement: replaced with gjtube by GI, continued yellow drainage peristomal; gj tube replacement attempt-unable due to too large of an opening; continued on pressors; Now chemical code; currently on tpn; transferred back to icu from floor; -hospice/palliative is likely the best option for this patient -possible surgical placement of jtube when medically stable-off pressors 2. Septic shock: multifactorial: 2/2: pneumonia + cellulitis + wounds; persistent, continued on pressors again -abx -supportive 3. Respiratory failure with trach: PNA with pulm edema; comfortable on vent; mod sputum -pulmonary toilet -abx -supportive 4.STARLA with CKD; +urine output -judicious fluids -renally dose meds -per nephrology 5. Normocytic anemia: previous coffee ground drainage peristoma;no acute bleed noted; h/h up -monitor and transfuse as needed 6. CHF -medical management 7. Diabetes with hypoglycemia -medical management 8. Acute encephalopathy with history of advanced dementia; unchanged neurologically -supportive 9. Decubitus wound. -continue wound care. 10. Peristomal cellulitis 2/2 #1; +pseudomonas: improving with drainage to ostomy bag -local care -abx per sensitivity 11. Pancytopenia: improving Patient seen and examined in collaboration with Dr. Meliton Blackburn. Thank you. Problems: Subjective 24 Hr Interval Summary Patient transferred back to ICU -hypothermic and with low bp. on alice hugger and back on pressors. Comfortable on vent. No sob, sz. No output from gastric stoma. Exam/Review of Systems Vital Signs Vitals Vital Signs Date Time Temp Pulse Resp B/P Pulse Ox O2 Delivery O2 Flow Rate FiO2 06/01/17 21:30 82 17 125/49 100 06/01/17 21:05 30 06/01/17 21:00 Mechanical Ventilator 06/01/17 20:00 97.3 Intake and Output 05/31/17 05/31/17 06/01/17 15:00 23:00 07:00 Output Total 460 ml 225 ml Balance -460 ml -225 ml Exam Free Text/Dictation Constitutional: non-verbal, awake, nonresponsive, ill-appearing No oriented Psych: confusion, withdraws from pain Head: atraumatic, normocephalic Eyes: nl sclera ENMT: mucosa pink and moist, missing teeth Neck: non-tender, other (trach), supple Respiratory: diminished Cardiovascular: edema Gastrointestinal: distended (min), other (stoma without drainage to ostomy bag) , soft, nontender Musculoskeletal: No muscle tone Extremities: edema Neurological: No nl mental status, No nl speech Skin: other (abdominal/peristomal/breast fold redness, moisture damage/ cellulitis) Results Result Diagram: 06/01/17 1730 06/01/17 0527 SHADI CALDERON NP Jun 01, 2017 22:00
[2017-06-02] VITALS (70 sets, daily range): BP systolic 93–133; BP diastolic 39–72; PULSE 61–91; RESP 14–28
[2017-06-02] MEDS: INSULIN ASPART [NOVOLOG] 3 ML PEN SC SCH ×6 (01:00→21:00)
[2017-06-02] MEDS: ALBUMIN HUMAN 25% 100 ML IV SCH (04:19)
[2017-06-02 04:34] LABS: EOSINOPHILS % 0.2 % (0.0-7.0); HEMATOCRIT 26.2 % (37.0-47.0); HEMOGLOBIN 8.2 g/dl (12.0-16.0); LYMPHOCYTES # 0.7 10^3/ul (0.8-2.9); LYMPHOCYTES % 13.5 % (15.0-51.0); MEAN CORPUSCULAR HEMOGLOBIN 28.8 pg (29.0-33.0); MEAN CORPUSCULAR HGB CONC 31.3 g/dl (32.0-37.0); MEAN CORPUSCULAR VOLUME 91.9 fl (82.0-101.0); MEAN PLATELET VOLUME 10.3 fl (7.4-10.4); MONOCYTE # 0.3 10^3/ul (0.3-0.9); MONOCYTES % 5.7 % (0.0-11.0); NEUTROPHIL # 4.1 10^3/ul (1.6-7.5); NEUTROPHILS % 78.7 % (39.0-77.0); NUCLEATED RED BLOOD CELLS% 0.4 /100WBC (0.0-0.0); PLATELET COUNT 111 10^3/UL (140-415); RED BLOOD COUNT 2.85 10^6/ul (4.20-5.40); RED CELL DISTRIBUTION WIDTH 17.2 % (11.5-14.5); WHITE BLOOD COUNT 5.2 10^3/ul (4.8-10.8)
[2017-06-02 05:00] LABS: CALCIUM 8.7 mg/dl (8.4-10.2); CREATININE 2.12 mg/dl (0.44-1.00); PHOSPHORUS 4.5 mg/dl (2.5-4.9); POTASSIUM 4.4 mmol/L (3.5-5.1)
[2017-06-02] MEDS: TRIMETHOPRIM/SULFAMETHOXAZOLE 10 ML in DEXTROSE 5% 250 ML IVPB SCH (06:12)
[2017-06-02] MEDS: HYDROCORTISONE 100 MG INJ IV SCH ×3 (06:12→22:43)
[2017-06-02 08:45] LABS: AADO2 Arterial 76.5 mmHg (7.0-24.0); Allen Test ACCEPTAB; Arterial Base Excess -7.8 mmol/L (-3.0-3); Arterial COHb 0.2 % (0.0-3.0); Arterial Fraction of Oxyhgb 95.6 % (93.0-99.0); Arterial HCO3 17.5 mmol/L (22.0-26.0); Arterial Total Hemglobin 8.7 g/dl (12.0-18.0); MODE VENT - AC
[2017-06-02] MEDS: MULTIVIT/CA CARB/B CMPLX/FA TAB GTB SCH (09:00)
[2017-06-02] MEDS: CITRIC ACID/NA CITRATE 30 ML CUP PO SCH ×2 (09:00→21:00)
[2017-06-02] MEDS: MIDODRINE 5 MG TAB GTB SCH ×3 (09:00→17:00)
[2017-06-02] MEDS: PRAMIPEXOLE 0.25 MG TAB GTB SCH (09:00)
[2017-06-02] MEDS: CARBIDOPA/LEVODOPA (25/100) TAB GTB SCH ×3 (09:00→21:00)
[2017-06-02] MEDS: FERROUS SULFATE (EC) 325 MG TAB PO SCH ×2 (09:00→21:00)
[2017-06-02] MEDS: MEMANTINE 5 MG TAB GTB SCH (09:00)
[2017-06-02] MEDS: FOLIC ACID 1 MG TAB GTB SCH (09:00)
--- NOTE | 2017-06-02 09:06 | PN ---
DATE: 06/01/2017 SUBJECTIVE DATA: No acute changes. The patient is lying comfortably in bed. She is nonverbal, noncommunicative. OBJECTIVE DATA: VITAL SIGNS: Temperature 98.6, pulse 62, respirations 18, blood pressure 104/55, and saturation 99 percent on 30 FIO2. LABORATORY AND DIAGNOSTIC DATA: WBC 4.2, H and H 7.9 and 24.7, platelets 86, and neutrophils 77.5. BUN 25, creatinine 1.90. PICC line on 05/16/2017. Collazo catheter. ANTIMICROBIALS: Amikacin, Bactrim, and cefepime. GENERAL: This is a chronically ill-appearing, fragile elderly woman who is in no distress. HEENT: Head atraumatic, normocephalic. Sclera anicteric. Buccal mucosa dry. NECK: Supple. Tracheostomy present. CHEST: Chest rise symmetrical. Breath sound diminished at bases. HEART: S1 and S2. ABDOMEN: Distended. Soft, G2 site was some drainage. EXTREMITIES: Bilateral trace edema. SKIN: Generalized edema. Multiple chronic wounds and resolving rash. ASSESSMENT: 1. Resolving sepsis, status post shock. 2. Status post healthcare associated pneumonia. 3. G-tube malfunction. 4. Multiple chronic wounds. 5. Diabetes. 6. Acute kidney injury. 7. Anemia. 8. Large gastric continuous fistula. PLAN: The patient is stable, off pressors. Gastroenterology on case. Continue antibiotics pending fistula closure. Dictated By: Juliet Murillo NP /junie/bowen /Document#: [id number]
[2017-06-02] MEDS: COLLAGENASE 30 GM TUBE TOP SCH (09:08)
[2017-06-02] MEDS: NYSTATIN 30 GM POWDER BTL TOP SCH ×2 (09:08→22:43)
[2017-06-02] MEDS: HEPARIN 5,000 UNIT/0.5 ML VIAL SC SCH ×2 (09:12→22:46)
[2017-06-02] MEDS: FAMOTIDINE 20 MG INJ IV SCH (09:14)
[2017-06-02] MEDS: FAT EMULSION 20% 250 ML IV SCH (09:15)
--- NOTE | 2017-06-02 10:29 | PN ---
DATE: 06/02/2017 SUBJECTIVE: The patient was transferred from telemetry to the intensive care unit. The patient was hypotensive with systolic pressures in the 80s. The patient was placed back on dopamine drip. Overnight the patient's urinary output remained low, marginally improved. No other events noted. OBJECTIVE DATA: VITAL SIGNS: Blood pressure 109/55, respirations 18, pulse 86, temperature 98.6. I's and O's; patient had 1.7 L in with 115 of urinary output. HEENT: Head is normocephalic. NECK: Trach. HEART: Regular rate. LUNGS: Diminished breath sounds at the base. ABDOMEN: Soft, positive gastrocutaneous fistula. EXTREMITIES: Positive for edema, contractures. DERMATOLOGIC: No rashes. MUSCULOSKELETAL: Positive wounds. NEUROLOGIC: No change in exam. MEDICATIONS: Reviewed. LABORATORY AND DIAGNOSTIC DATA: Shows sodium 127, potassium 4.4, chloride 97, BUN 28, creatinine 2.12. White count 5.2, hemoglobin 8.2, hematocrit 26.2, platelet count is 111,999. ASSESSMENT AND PLAN: 1. Septic shock. The patient was placed back on pressors and transferred to the intensive care unit. The patient also remains on broad-spectrum antibiotics and intravenous fluids. Will continue current treatment plan. Continues to stress steroids. 2. Questionable adrenal insufficiency. The patient is currently on stress steroids being tapered down. Appreciate endocrinology evaluation. Continue to monitor. 3. Anemia. Patient's hemoglobin levels have been fluctuating, likely dilutional. Continue to monitor. Will transfuse as needed. 4. Gastrocutaneous fistula. The patient has been followed by General Surgery. Continue to monitor. 5. Hyponatremia etiology secondary acute kidney injury in conjunction with hypotonic fluids. Plan is to have pharmacy adjust TPN, minimize all hypotonic fluids. Monitor closely. 6. Ventilatory-dependent respiratory failure. Vent settings reviewed. Arterial blood gases reviewed. Continue to monitor. 7. Oliguric acute kidney injury on top of chronic kidney disease stage 4. Etiology secondary to septic acute kidney injury hemodynamics. The patient's renal function has declined in the last 48 hours. At this point, continue current treatment plan. Continue pressor support. Continue intravenous fluids. Continue antibiotic therapy. 8. Acute encephalopathy, advanced dementia, etiology toxic metabolic. Continue to monitor. 9. Volume overload. Etiology secondary to chronic kidney disease, acute kidney injury, capillary leak. Will defer diuretic therapy in the setting of pressor support. 10. Diabetes. Continue Accu-Cheks and sliding scale. 11. Gastrointestinal and deep venous thrombosis prophylaxis. Continue proton pump inhibitor and heparin. 12. Nutrition. Continue TPN. 13. Decubitus wound. Continue wound care. 14. Metabolic acidosis secondary to acute kidney injury. Will check arterial blood gas. Dictated By: Brendan Rosas DO /junie/rasheeda /Document#: [id number]
[2017-06-02] MEDS: SOD CHLORIDE 0.9% 1,000 ML IV SCH ×2 (12:39→22:44)
--- NOTE | 2017-06-02 14:18 | CONS ---
Date/Time of Note Date/Time of Note DATE: 06/02/17 TIME: 14:17 Consult Date/Type/Reason Admit Date/Time May 06, 2017 at 16:34 Initial Consult Date 05/10/17 Type of Consultation: Pulmonary Ordering Provider: OSMAR MONTAGUE DO Subjective No changes. Patient transferred back to intensive care unit for low blood pressure and hypothermia. Clinically unchanged this morning. Objective Vital Signs Date Time Temp Pulse Resp B/P Pulse Ox O2 Delivery O2 Flow Rate FiO2 06/02/17 13:00 80 16 110/58 100 Mechanical Ventilator 06/02/17 12:40 30 06/02/17 11:00 97.4 Intake and Output 06/01/17 06/01/17 06/02/17 15:00 23:00 07:00 Intake Total 944.240 ml 832.936 ml Output Total 80 ml 35 ml Balance 864.240 ml 797.936 ml Exam PHYSICAL EXAMINATION GENERAL: Elderly lady chronically ill-appearing on mechanical ventilation via tracheostomy VITAL SIGNS: see below. HEENT: Pupils equal, round, and reactive to light. Tracheostomy site clean and intact. CARDIAC: S1, S2, 2/6 systolic ejection murmur CHEST: Diminished air entry bilaterally. ABDOMEN: Mildly distended. Bowel sounds present no guarding or rebound EXTREMITIES: No cyanosis, clubbing edema +2 NEUROLOGIC: Generalized weakness Results/Medications Result Diagram: 06/02/17 0418 06/02/17 0418 Results 24 hrs Laboratory Tests Test 06/01/17 17:30 06/01/17 17:47 06/01/17 21:07 06/01/17 23:05 White Blood Count 3.8 L Red Blood Count 2.92 L Hemoglobin 8.8 L Hematocrit 27.0 L Mean Corpuscular Volume 92.5 Mean Corpuscular Hemoglobin 30.1 Mean Corpuscular Hemoglobin Concent 32.6 Red Cell Distribution Width 17.4 H Platelet Count 112 #L Mean Platelet Volume 10.1 Neutrophils % 79.5 H Lymphocytes % 15.0 Monocytes % 4.2 Eosinophils % 0.0 Basophils % 0.0 Nucleated Red Blood Cells % 0.0 Neutrophils # 3.0 Lymphocytes # 0.6 L Monocytes # 0.2 L Eosinophils # 0.0 Basophils # 0.0 Nucleated Red Blood Cells # 0.0 Bedside Glucose 128 142 112 Test 06/02/17 01:22 06/02/17 04:00 06/02/17 04:18 06/02/17 04:29 Bedside Glucose 90 85 Thyroid Stimulating Hormone (TSH) 3.680 Free Thyroxine 0.98 White Blood Count 5.2 # Red Blood Count 2.85 L Hemoglobin 8.2 L Hematocrit 26.2 L Mean Corpuscular Volume 91.9 Mean Corpuscular Hemoglobin 28.8 L Mean Corpuscular Hemoglobin Concent 31.3 L Red Cell Distribution Width 17.2 H Platelet Count 111 L Mean Platelet Volume 10.3 Neutrophils % 78.7 H Lymphocytes % 13.5 L Monocytes % 5.7 Eosinophils % 0.2 Basophils % 0.0 Nucleated Red Blood Cells % 0.4 H Neutrophils # 4.1 Lymphocytes # 0.7 L Monocytes # 0.3 Eosinophils # 0.0 Basophils # 0.0 Nucleated Red Blood Cells # 0.0 Sodium Level 127 L Potassium Level 4.4 Chloride Level 97 Carbon Dioxide Level 17 L Anion Gap 17 H Blood Urea Nitrogen 28 H Creatinine 2.12 H Glucose Level 240 #H Calcium Level 8.7 Phosphorus Level 4.5 Magnesium Level 2.0 Test 06/02/17 05:34 06/02/17 07:30 06/02/17 08:26 06/02/17 09:06 Bedside Glucose 87 86 Blood Gas Specimen Source Blood arterial Arterial Blood Date Drawn 06/02/2017 8:22:19 AM Arterial Blood pH (Temp corrected) 7.322 L Arterial Blood pCO2 (Temp correct) 34.5 L Arterial Blood pO2 (Temp corrected) 96.9 H Arterial Blood HCO3 17.5 L Arterial Blood Base Excess -7.8 L Arterial Blood Oxygen Saturation 96.8 Faustino Test ACCEPTAB Arterial Blood Gas Puncture Site Left Radial Arterial Blood Carboxyhemoglobin 0.2 Arterial Blood Methemoglobin 1.0 Blood Gas A-a O2 Differential 76.5 H Oxyhemoglobin Percent 95.6 Total Hemoglobin 8.7 L Blood Gas Temperature 37.0 Blood Gas Respiration Rate 16.0 Blood Gas Actual Respiration Rate 19 Blood Gas Modality VENT - AC FiO2 30.0 Blood Gas Tidal Volume 500.0 Blood Gas Low PEEP Setting 5.0 Blood Gas Notified Whom DT Blood Gas Notified Time 06/02/2017 8:45:03 AM Lactic Acid Level 1.5 Test 06/02/17 12:43 Bedside Glucose 87 Medications Current Medications Atorvastatin Calcium (Lipitor) 10 mg QHS GTB Last administered on 05/19/17 21: 00; Admin Dose 10 MG; Start 05/06/17 at 21:00 Bisacodyl (Dulcolax Supp) 10 mg Q48H [place] Last administered on 06/01/17 17:50; Admin Dose 10 MG; Start 05/06/17 at 17:00 Carbidopa/Levodopa (Sinemet (25/ 100)) 1 tab TID GTB Last administered on 22:02; Admin Dose 1 TAB; Start 05/06/17 at 21:00 Donepezil HCl (Aricept) 10 mg QHS GTB Last administered on 05/19/17 21:00; Admin Dose 10 MG; Start 05/06/17 at 21:00 Ferrous Sulfate (Ferrous Sulfate (Ec)) 325 mg BID PO Last administered on 09:09; Admin Dose 325 MG; Start 05/06/17 at 21:00 Folic Acid (Folic Acid) 1 mg DAILY GTB Last administered on 05/22/17 09:09; Admin Dose 1 MG; Start 05/07/17 at 09:00 Lactobacillus Acidophilus/ Rhamnosus (Culturelle) 1 cap QHS GTB Last administered on 05/19/17 21:00; Admin Dose 1 CAP; Start 05/06/17 at 21:00 Magnesium Hydroxide (Milk Of Mag) 30 ml Q24H GTB Last administered on 05/22/17 16:38; Admin Dose 30 ML; Start 05/06/17 at 17:00 Memantine (Namenda) 5 mg QAM GTB Last administered on 05/22/17 09:10; Admin Dose 5 MG; Start 05/07/17 at 09:00 Multivit/Ca Carb/ B Cmplx/FA/Prenat (Radhika-John) 1 tab DAILY GTB Last administered on 05/22/17 09:09; Admin Dose 1 TAB; Start 05/07/17 at 09:00 Pramipexole (Mirapex) 0.5 mg DAILY GTB Last administered on 05/22/17 09:09; Admin Dose 0.5 MG; Start 05/07/17 at 09:00 Sodium Biphosphate/ Sodium Phosphate (Fleet Enema Pediatric) 118 ml Q72H PRN [place] CONSTIPATION; Start 05/06/17 at 17:00 Citric Acid/ Sodium Citrate (Bicitra) 30 ml BID PO Last administered on 09:09; Admin Dose 30 ML; Start 05/06/17 at 21:00 Nystatin (Nystatin Powder) 1 applic BID TOP Last administered on 06/02/17 09: 08; Admin Dose 1 APPLIC; Start 05/09/17 at 21:00 Collagenase (Santyl) 1 applic DAILY TOP Last administered on 06/02/17 09:08; Admin Dose 1 APPLIC; Start 05/09/17 at 15:00 Collagenase (Santyl) 1 applic PRN PRN TOP WOUND CARE; Start 05/09/17 at 14:00 Miscellaneous Information 1 ea NOTE XX ; Start 05/11/17 at 08:00 Glucose (Glutose) 15 gm Q15M PRN PO DECREASED GLUCOSE; Start 05/11/17 at 08:00 Glucose (Glutose) 22.5 gm Q15M PRN PO DECREASED GLUCOSE; Start 05/11/17 at 08: 00 Dextrose (D50w Syringe) 25 ml Q15M PRN IV DECREASED GLUCOSE Last administered on 05/28/17 00:53; Admin Dose 25 ML; Start 05/11/17 at 08:00 Dextrose (D50w Syringe) 50 ml Q15M PRN IV DECREASED GLUCOSE Last administered on 05/15/17 00:11; Admin Dose 50 ML; Start 05/11/17 at 08:00 Glucagon (Glucagen) 1 mg Q15M PRN IM DECREASED GLUCOSE; Start 05/11/17 at 08:00 Glucose (Glutose) 15 gm Q15M PRN BUCCAL DECREASED GLUCOSE; Start 05/11/17 at 08 :00 Epoetin Vasyl (Epogen (Esrd)) 10,000 units MoWeFr@17 SC Last administered on 17:18; Admin Dose 10,000 UNITS; Start 05/13/17 at 17:00 IV Flush (NS 10 ml) 10 ml PRN PRN IV IV PROTOCOL; Start 05/15/17 at 17:30 Amikacin Sulfate AMIKACIN PER PHARMACY NOTE XX ; Start 05/19/17 at 18:00 Cefepime HCl 0.5 gm/Sodium Chloride 100 ml @ 100 mls/hr Q24H IVPB Last administered on 06/01/17 20:14; Admin Dose 100 MLS/HR; Start 05/19/17 at 20:00 Amikacin Sulfate/ Sodium Chloride (Amikacin/NS) 101.4 ml @ 101.4 mls/ hr Q96H IVPB Last administered on 05/31/17 21:08; Admin Dose 101.4 MLS/HR; Start at 21:00 Midodrine (Proamatine) 10 mg TID@,, GTB ; Start 05/23/17 at 09:00 Heparin Sodium (Porcine) (Heparin (5000 Units/0.5 ml)) 5,000 unit BID SC Last administered on 06/02/17 09:12; Admin Dose 5,000 UNIT; Start 05/23/17 at 09:00 Insulin Aspart NOVOLOG *MILD* ALGORI... Q4 SC Last administered on 06/01/17 21 :32; Admin Dose 1 UNIT; Start 05/26/17 at 09:00 Total Parenteral Nutrition 1,000 ml @ 40 mls/hr Q24H IV Last administered on 23:25; Admin Dose 40 MLS/HR; Start 05/27/17 at 14:00 Fat Emulsion Intravenous (Liposyn Ii 20%) 250 ml @ 31.25 mls/ hr Q24H IV Last administered on 06/02/17 09:15; Admin Dose 31.25 MLS/HR; Start 05/28/17 at 10:00 Famotidine (Pepcid Iv) 20 mg DAILY IV Last administered on 06/02/17 09:14; Admin Dose 20 MG; Start 05/29/17 at 09:00 Hydrocortisone 25 mg 25 mg Q8 IV Last administered on 06/02/17 06:12; Admin Dose 25 MG; Start 06/01/17 at 14:00 Dopamine HCl/ Dextrose 250 ml @ 6.848 mls/ hr TITRATE IV Last administered on 06/01/17 16:36; Admin Dose 6.848 MLS/HR; Start 06/01/17 at 16:30 Sodium Chloride 1,000 ml @ 75 mls/hr [id number] IV Last administered on 12:39; Admin Dose 75 MLS/HR; Start 06/01/17 at 21:00 Trimethoprim/ Sulfamethoxazole/ Dextrose (Bactrim/D5W) 260 ml @ 173.333 mls/hr Q24H IVPB ; Start 06/03/17 at 14:00 Assessment/Plan Chief Complaint/Hosp Course Additional Assessment/Plan IMP: 1. Septic shock remains vasopressor dependent. Continues dopamine. 2. VDRF 3. Possible healthcare associated pneumonia 4. Cellulitis 5. Urosepsis 6. Encephalopathy chronic, vegetative state 7. STARLA 8. Anemia likely multifactorial. 9. Hyponatremia RECS: 1. Monitor H&H 2. Vent support 3. Palliative Care consultation. Bioethics recs. 4. TF's/Free H20 5. dvt prophylaxis 6. Slowly taper hydrocortisone Very poor prognosis. Critical care time 40 minutes. Problems: JARED CLAIRE MD, [facility] Jun 02, 2017 14:18
--- NOTE | 2017-06-02 16:42 | RADRPT ---
PROCEDURE: XR Chest. CLINICAL INDICATION: Pneumonia. TECHNIQUE: Chest x-ray, single view. COMPARISON: 05/29/2017. FINDINGS: The cardiac silhouette is magnified and unchanged in size. Aortic arch atherosclerotic calcificatio n is present. A tracheostomy tube is in place within the airway. Opacification of the left lower c hest is present and unchanged. The aerated portions of the lungs are unremarkable. A right upper e xtremity PICC terminates within the upper SVC. Mild blunting of the right costophrenic angle is als o observed and unchanged which may reflect a small pleural effusion and / or pleural thickening. IMPRESSION: Small right pleural effusion/pleural thickening, unchanged. Opacification of the left lung base, unchanged. Atelectasis, airspace disease and / or pleural effu shakira may be present. RPTAT: PP .Jaqui Hernandez MD, Date Time Electronically viewed and signed by .Jaqui Hernandez MD, on 06/02/2017 16:41 .T/
--- NOTE | 2017-06-02 16:57 | PN ---
Date/Time of Note Date/Time of Note DATE: 06/02/17 TIME: 16:52 Assessment/Plan Lines/Catheters IV Catheter Type (from Nrs): PICC Line Collazo in Place (from Nrs): Yes Assessment/Plan Chief Complaint/Hosp Course 1. G-tube dislodgement: replaced with gjtube by GI, continued yellow drainage peristomal; gj tube replacement attempt-unable due to too large of an opening; Now chemical code; currently on tpn; transferred back to icu from floor; continued on pressors -hospice/palliative is likely the best option for this patient -possible surgical placement of jtube when medically stable-off pressors 2. Septic shock: multifactorial: 2/2: pneumonia + cellulitis + wounds; persistent, continued on pressors again -abx -supportive 3. Respiratory failure with trach: PNA with pulm edema; comfortable on vent; mod sputum -pulmonary toilet -abx -supportive 4.STARLA with CKD; +urine output -judicious fluids -renally dose meds -per nephrology 5. Normocytic anemia: previous coffee ground drainage peristoma;no acute bleed noted; h/h stable -monitor and transfuse as needed 6. CHF -medical management 7. Diabetes with hypoglycemia -medical management 8. Acute encephalopathy with history of advanced dementia; unchanged neurologically -supportive 9. Decubitus wound. -continue wound care. 10. Peristomal cellulitis 2/2 #1; +pseudomonas: improving with drainage to ostomy bag -local care -abx per sensitivity 11. Pancytopenia: improving 12. Hyponatremia: -medical management Patient seen and examined in collaboration with Dr. Meliton Blackburn. Thank you. Problems: Subjective 24 Hr Interval Summary Patient continues to be on pressors. Neurologically unchanged. Comfortable on vent. congested cough. No fevers, chills, sz. Exam/Review of Systems Vital Signs Vitals Vital Signs Date Time Temp Pulse Resp B/P Pulse Ox O2 Delivery O2 Flow Rate FiO2 06/02/17 16:00 68 16 99/50 98 Mechanical Ventilator 06/02/17 15:30 97.4 06/02/17 12:40 30 Intake and Output 06/01/17 06/01/17 06/02/17 15:00 23:00 07:00 Intake Total 944.240 ml 953.936 ml Output Total 80 ml 35 ml Balance 864.240 ml 918.936 ml Exam Free Text/Dictation Constitutional: non-verbal, awake, nonresponsive, ill-appearing No oriented Psych: confusion, withdraws from pain Head: atraumatic, normocephalic Eyes: nl sclera ENMT: mucosa pink and moist, missing teeth Neck: non-tender, other (trach), supple Respiratory: diminished Cardiovascular: edema Gastrointestinal: distended (min), other (stoma without drainage to ostomy bag) , soft, nontender Musculoskeletal: No muscle tone Extremities: edema Neurological: No nl mental status, No nl speech Skin: other (abdominal/peristomal/breast fold redness, moisture damage/ cellulitis) Results Result Diagram: 06/02/17 0418 06/02/17 0418 SHADI CALDERON NP Jun 02, 2017 16:56
[2017-06-02] MEDS: MAGNESIUM HYDROXIDE 30ML CUP GTB SCH (17:00)
[2017-06-02] MEDS: CEFEPIME HCL 0.5 GM in SOD CHLORIDE 0.9% 100 ML IVPB SCH (19:54)
[2017-06-02] MEDS: DONEPEZIL 10 MG TAB GTB SCH (21:00)
[2017-06-02] MEDS: ATORVASTATIN 10 MG TAB GTB SCH (21:00)
[2017-06-02] MEDS: LACTOBACILLUS RHAMNOSUS CAP GTB SCH (21:00)
--- NOTE | 2017-06-02 22:56 | CONS ---
Date/Time of Note Date/Time of Note DATE: 06/02/17 TIME: 22:39 late entry note patient was seen at 11:50am Assessment/Plan Assessment/Plan Problems: (1) Hypotension Status: Acute Comment: Patient started on high dose steroids in an attempt to improve blood pressure despite normal values of cortisol given patients overall underlying state of health. Initially blood pressure appeared to improve, but patient's blood pressure again dropped while on corticosteroid (albeit on a lower dose) requiring Dopamine. Dopamine has been tapered and blood pressure once again appears stable. (2) Controlled diabetes mellitus Status: Chronic Comment: No issues at this time (3) Hypothermia Status: Acute Comment: Will obtain thyroid panel to rule out hypothyroidism. Additional Assessment/Plan Guarded prognosis Consultation Date/Type/Reason Admit Date/Time May 06, 2017 at 16:34 Initial Consult Date 05/30/17 Type of Consultation: Endocrine Reason for Consultation Hypotension Referring Provider: OSMAR MONTAGUE DO 24 HR Interval Summary Free Text/Dictation Patient transferred from telemetry to ICU after hypotensive episode and hypothermia. Started on Dopamine and placed under warming blanket. Currently on Hydrocortisone stress dose taper. Subjective hx not possible: pt critical Exam/Review of Systems Vital Signs Vitals Vital Signs Date Time Temp Pulse Resp B/P Pulse Ox O2 Delivery O2 Flow Rate FiO2 06/02/17 21:14 62 16 100 30 06/02/17 20:00 Bag Valve Mask 06/02/17 18:30 102/49 06/02/17 18:00 97.4 Intake and Output 06/01/17 06/01/17 06/02/17 15:00 23:00 07:00 Intake Total 944.240 ml 953.936 ml Output Total 80 ml 35 ml Balance 864.240 ml 918.936 ml Exam Intubated via tracheostomy Constitutional: non-verbal Eyes: nl conjunctiva, other (spontaneous eye aperture) Neck: supple Respiratory: diminished breath sounds Cardiovascular: regular rate and rhythm Gastrointestinal: distended Extremities: edema Results Labs and POC glucose reviewed Result Diagram: 06/02/17 0418 06/02/17 0418 Results 24 hrs Laboratory Tests Test 06/01/17 23:05 06/02/17 01:22 06/02/17 04:00 06/02/17 04:18 Bedside Glucose 112 90 Thyroid Stimulating Hormone (TSH) 3.680 Free Thyroxine 0.98 White Blood Count 5.2 # Red Blood Count 2.85 L Hemoglobin 8.2 L Hematocrit 26.2 L Mean Corpuscular Volume 91.9 Mean Corpuscular Hemoglobin 28.8 L Mean Corpuscular Hemoglobin Concent 31.3 L Red Cell Distribution Width 17.2 H Platelet Count 111 L Mean Platelet Volume 10.3 Neutrophils % 78.7 H Lymphocytes % 13.5 L Monocytes % 5.7 Eosinophils % 0.2 Basophils % 0.0 Nucleated Red Blood Cells % 0.4 H Neutrophils # 4.1 Lymphocytes # 0.7 L Monocytes # 0.3 Eosinophils # 0.0 Basophils # 0.0 Nucleated Red Blood Cells # 0.0 Sodium Level 127 L Potassium Level 4.4 Chloride Level 97 Carbon Dioxide Level 17 L Anion Gap 17 H Blood Urea Nitrogen 28 H Creatinine 2.12 H Glucose Level 240 #H Calcium Level 8.7 Phosphorus Level 4.5 Magnesium Level 2.0 Test 06/02/17 04:29 06/02/17 05:34 06/02/17 07:30 06/02/17 08:26 Bedside Glucose 85 87 Blood Gas Specimen Source Blood arterial Arterial Blood Date Drawn 06/02/2017 8:22:19 AM Arterial Blood pH (Temp corrected) 7.322 L Arterial Blood pCO2 (Temp correct) 34.5 L Arterial Blood pO2 (Temp corrected) 96.9 H Arterial Blood HCO3 17.5 L Arterial Blood Base Excess -7.8 L Arterial Blood Oxygen Saturation 96.8 Faustino Test ACCEPTAB Arterial Blood Gas Puncture Site Left Radial Arterial Blood Carboxyhemoglobin 0.2 Arterial Blood Methemoglobin 1.0 Blood Gas A-a O2 Differential 76.5 H Oxyhemoglobin Percent 95.6 Total Hemoglobin 8.7 L Blood Gas Temperature 37.0 Blood Gas Respiration Rate 16.0 Blood Gas Actual Respiration Rate 19 Blood Gas Modality VENT - AC FiO2 30.0 Blood Gas Tidal Volume 500.0 Blood Gas Low PEEP Setting 5.0 Blood Gas Notified Whom DT Blood Gas Notified Time 06/02/2017 8:45:03 AM Lactic Acid Level 1.5 Test 06/02/17 09:06 06/02/17 12:43 06/02/17 17:33 Bedside Glucose 86 87 92 Medications Medications Current Medications Atorvastatin Calcium (Lipitor) 10 mg QHS GTB Last administered on 05/19/17t 21: 00; Admin Dose 10 MG; Start 05/06/17 at 21:00 Bisacodyl (Dulcolax Supp) 10 mg Q48H [place] Last administered on 06/01/17 17:50; Admin Dose 10 MG; Start 05/06/17 at 17:00 Carbidopa/Levodopa (Sinemet (25/ 100)) 1 tab TID GTB Last administered on 22:02; Admin Dose 1 TAB; Start 05/06/17 at 21:00 Donepezil HCl (Aricept) 10 mg QHS GTB Last administered on 05/19/17 21:00; Admin Dose 10 MG; Start 05/06/17 at 21:00 Ferrous Sulfate (Ferrous Sulfate (Ec)) 325 mg BID PO Last administered on 09:09; Admin Dose 325 MG; Start 05/06/17 at 21:00 Folic Acid (Folic Acid) 1 mg DAILY GTB Last administered on 05/22/17 09:09; Admin Dose 1 MG; Start 05/07/17 at 09:00 Lactobacillus Acidophilus/ Rhamnosus (Culturelle) 1 cap QHS GTB Last administered on 05/19/17 21:00; Admin Dose 1 CAP; Start 05/06/17 at 21:00 Magnesium Hydroxide (Milk Of Mag) 30 ml Q24H GTB Last administered on 05/22/17 16:38; Admin Dose 30 ML; Start 05/06/17 at 17:00 Memantine (Namenda) 5 mg QAM GTB Last administered on 05/22/17 09:10; Admin Dose 5 MG; Start 05/07/17 at 09:00 Multivit/Ca Carb/ B Cmplx/FA/Prenat (Radhika-John) 1 tab DAILY GTB Last administered on 05/22/17 09:09; Admin Dose 1 TAB; Start 05/07/17 at 09:00 Pramipexole (Mirapex) 0.5 mg DAILY GTB Last administered on 05/22/17 09:09; Admin Dose 0.5 MG; Start 05/07/17 at 09:00 Sodium Biphosphate/ Sodium Phosphate (Fleet Enema Pediatric) 118 ml Q72H PRN [place] CONSTIPATION; Start 05/06/17 at 17:00 Citric Acid/ Sodium Citrate (Bicitra) 30 ml BID PO Last administered on 09:09; Admin Dose 30 ML; Start 05/06/17 at 21:00 Nystatin (Nystatin Powder) 1 applic BID TOP Last administered on 06/02/17 09: 08; Admin Dose 1 APPLIC; Start 05/09/17 at 21:00 Collagenase (Santyl) 1 applic DAILY TOP Last administered on 06/02/17 09:08; Admin Dose 1 APPLIC; Start 05/09/17 at 15:00 Collagenase (Santyl) 1 applic PRN PRN TOP WOUND CARE; Start 05/09/17 at 14:00 Miscellaneous Information 1 ea NOTE XX ; Start 05/11/17 at 08:00 Glucose (Glutose) 15 gm Q15M PRN PO DECREASED GLUCOSE; Start 05/11/17 at 08:00 Glucose (Glutose) 22.5 gm Q15M PRN PO DECREASED GLUCOSE; Start 05/11/17 at 08: 00 Dextrose (D50w Syringe) 25 ml Q15M PRN IV DECREASED GLUCOSE Last administered on 05/28/17 00:53; Admin Dose 25 ML; Start 05/11/17 at 08:00 Dextrose (D50w Syringe) 50 ml Q15M PRN IV DECREASED GLUCOSE Last administered on 05/15/17 00:11; Admin Dose 50 ML; Start 05/11/17 at 08:00 Glucagon (Glucagen) 1 mg Q15M PRN IM DECREASED GLUCOSE; Start 05/11/17 at 08:00 Glucose (Glutose) 15 gm Q15M PRN BUCCAL DECREASED GLUCOSE; Start 05/11/17 at 08 :00 Epoetin Vasyl (Epogen (Esrd)) 10,000 units MoWeFr@17 SC Last administered on 17:18; Admin Dose 10,000 UNITS; Start 05/13/17 at 17:00 IV Flush (NS 10 ml) 10 ml PRN PRN IV IV PROTOCOL; Start 05/15/17 at 17:30 Amikacin Sulfate AMIKACIN PER PHARMACY NOTE XX ; Start 05/19/17 at 18:00 Cefepime HCl 0.5 gm/Sodium Chloride 100 ml @ 100 mls/hr Q24H IVPB Last administered on 06/02/17 19:54; Admin Dose 100 MLS/HR; Start 05/19/17 at 20:00 Amikacin Sulfate/ Sodium Chloride (Amikacin/NS) 101.4 ml @ 101.4 mls/ hr Q96H IVPB Last administered on 05/31/17 21:08; Admin Dose 101.4 MLS/HR; Start at 21:00 Midodrine (Proamatine) 10 mg TID@,,17 GTB ; Start 05/23/17 at 09:00 Heparin Sodium (Porcine) (Heparin (5000 Units/0.5 ml)) 5,000 unit BID SC Last administered on 06/02/17 09:12; Admin Dose 5,000 UNIT; Start 05/23/17 at 09:00 Insulin Aspart NOVOLOG *MILD* ALGORI... Q4 SC Last administered on 06/01/17 21 :32; Admin Dose 1 UNIT; Start 05/26/17 at 09:00 Total Parenteral Nutrition 1,000 ml @ 40 mls/hr Q24H IV Last administered on 23:25; Admin Dose 40 MLS/HR; Start 05/27/17 at 14:00 Fat Emulsion Intravenous (Liposyn Ii 20%) 250 ml @ 31.25 mls/ hr Q24H IV Last administered on 06/02/17 09:15; Admin Dose 31.25 MLS/HR; Start 05/28/17 at 10:00 Famotidine (Pepcid Iv) 20 mg DAILY IV Last administered on 06/02/17 09:14; Admin Dose 20 MG; Start 05/29/17 at 09:00 Hydrocortisone 25 mg 25 mg Q8 IV Last administered on 06/02/17 14:24; Admin Dose 25 MG; Start 06/01/17 at 14:00 Dopamine HCl/ Dextrose 250 ml @ 6.848 mls/ hr TITRATE IV Last administered on 06/01/17 16:36; Admin Dose 6.848 MLS/HR; Start 06/01/17 at 16:30 Sodium Chloride 1,000 ml @ 75 mls/hr [id number] IV Last administered on 12:39; Admin Dose 75 MLS/HR; Start 06/01/17 at 21:00 Trimethoprim/ Sulfamethoxazole/ Dextrose (Bactrim/D5W) 260 ml @ 173.333 mls/hr Q24H IVPB ; Start 06/03/17 at 14:00 STEFANI FUENTES MD Jun 02, 2017 22:51
[2017-06-03] VITALS (44 sets, daily range): BP systolic 90–130; BP diastolic 43–78; PULSE 58–74; RESP 12–19
[2017-06-03] MEDS: INSULIN ASPART [NOVOLOG] 3 ML PEN SC SCH ×6 (00:58→20:37)
[2017-06-03] MEDS: SOD CHLORIDE 0.9% 1,000 ML IV SCH (02:45)
[2017-06-03] MEDS: TPN 1,000 ML IV SCH (02:46)
[2017-06-03 05:38] LABS: ABNORMAL IP MESSAGE 1; HEMATOCRIT 21.2 % (37.0-47.0); MEAN CORPUSCULAR HEMOGLOBIN 28.9 pg (29.0-33.0); MEAN CORPUSCULAR HGB CONC 31.1 g/dl (32.0-37.0); MEAN PLATELET VOLUME 10.6 fl (7.4-10.4); NUCLEATED RED BLOOD CELLS% 0.9 /100WBC (0.0-0.0); PLATELET COUNT 91 10^3/UL (140-415); RED BLOOD COUNT 2.28 10^6/ul (4.20-5.40); RED CELL DISTRIBUTION WIDTH 17.7 % (11.5-14.5); WHITE BLOOD COUNT 3.2 10^3/ul (4.8-10.8)
[2017-06-03 06:04] LABS: CALCIUM 7.8 mg/dl (8.4-10.2); CREATININE 2.13 mg/dl (0.44-1.00); MAGNESIUM 1.9 mg/dl (1.7-2.5); PHOSPHORUS 4.1 mg/dl (2.5-4.9); POTASSIUM 3.8 mmol/L (3.5-5.1)
[2017-06-03 06:04] LABS: POSITIVE DIFF @See below
[2017-06-03 06:10] LABS: HEMOGLOBIN 6.6 g/dl (12.0-16.0)
[2017-06-03] MEDS: HYDROCORTISONE 100 MG INJ IV SCH ×3 (06:13→20:38)
[2017-06-03] MEDS ORDERED: SOD CHLORIDE 0.9% 250 ML IV* ONE (06:17)
[2017-06-03] MEDS ORDERED: FUROSEMIDE 40 MG INJ IV ONE ×2 (07:30→09:30)
--- NOTE | 2017-06-03 08:22 | PN ---
DATE: 06/03/2017 SUBJECTIVE DATA: The patient remains critically ill. The patient is currently off pressor support. Blood pressures remain low. Patient, however, has been aneuric for the last six hours. No other events noted. No hemoptysis, hematemesis, hematochezia. The patient is noted to have low hemoglobin levels. Will be receiving two units of packed red blood cells. OBJECTIVE DATA: VITAL SIGNS: Blood pressure 93/43, respirations 16, pulse 63, temperature 97.5. HEENT: Head is normocephalic. NECK: Supple. HEART: Regular rate. LUNGS: Diminished breath sounds at the base. ABDOMEN: Soft, nontender to palpation. Positive gastrocutaneous fistula. EXTREMITIES: Negative for clubbing, cyanosis. Positive edema. DERMATOLOGIC: No rashes. MUSCULOSKELETAL: No joint effusion. NEUROLOGIC: No change in exam. MEDICATIONS: Reviewed. LABORATORY AND DIAGNOSTIC DATA: Sodium 129, potassium 3.9, chloride 104, BUN 33, creatinine 2.13. White count 3.2, hemoglobin 6.6, hematocrit 21.2, platelet count is 91. Chest x- ray on 06/02/2017 shows opacification of left lung base. No change. Airspace disease noted. ASSESSMENT AND PLAN: 1. Septic shock, etiology is multifactorial. The patient has currently been weaned off pressors. Will continue current treatment plan. Antibiotics, continue IV fluids. Continue to monitor. 2. Anemia. The patient had a decrease in hemoglobin levels. Unclear if this is dilutional. Will repeat H and H levels. Will transfuse as needed. 3. Questionable adrenal insufficiency. The patient was placed on stress steroids, now being tapered off. Appreciate endocrine evaluation. 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 Follow up with General Surgery. 5. Oligoanuric acute kidney injury on top of chronic kidney disease stage IV. Etiology secondary to ATN, septic and septic acute kidney injury. The patient's has remained anuric last six hours. Plan is to give diuretic challenge with Lasix 80 mg IV x1. If patient has no significant urinary output, will discuss the possibility of initiating renal replacement therapy. Would otherwise continue current treatment. Supportive care. Continue pressor support. Continue IV hydration. 6. Ventilatory-dependent respiratory failure. Vent settings reviewed. ABGs reviewed. Continue to monitor. 7. Hyponatremia, etiology secondary to acute kidney injury in conjunction with hypotonic fluids. The patient's sodium levels have slowly been improving. Continue to monitor. 8. Acute encephalopathy and advanced dementia, etiology toxic metabolic. 9. Volume overload, etiology secondary to chronic kidney disease, catheter leak. The patient be given diuretic challenge. Will monitor closely. 10. Diabetes. Continue Accu-Cheks and sliding scale. 11. Nutrition. Continue total parenteral nutrition. 12. Decubitus wound. Continue wound care. 13. Metabolic acidosis secondary to acute kidney injury. The patient's ABG shows appropriate compensation. Will continue to monitor. Dictated By: Brendan Rosas DO /junie/regulo /Document#: [id number]
[2017-06-03] MEDS: FAMOTIDINE 20 MG INJ IV SCH (08:56)
[2017-06-03] MEDS: NYSTATIN 30 GM POWDER BTL TOP SCH ×2 (08:57→20:38)
[2017-06-03] MEDS: COLLAGENASE 30 GM TUBE TOP SCH (08:57)
[2017-06-03] MEDS: HEPARIN 5,000 UNIT/0.5 ML VIAL SC SCH ×2 (08:58→20:09)
[2017-06-03] MEDS: CITRIC ACID/NA CITRATE 30 ML CUP PO SCH ×2 (09:00→20:10)
[2017-06-03] MEDS: MIDODRINE 5 MG TAB GTB SCH ×3 (09:00→17:00)
[2017-06-03] MEDS: CARBIDOPA/LEVODOPA (25/100) TAB GTB SCH ×3 (09:00→20:10)
[2017-06-03] MEDS: MULTIVIT/CA CARB/B CMPLX/FA TAB GTB SCH (09:00)
[2017-06-03] MEDS: MEMANTINE 5 MG TAB GTB SCH (09:00)
[2017-06-03] MEDS: PRAMIPEXOLE 0.25 MG TAB GTB SCH (09:00)
[2017-06-03] MEDS: FOLIC ACID 1 MG TAB GTB SCH (09:00)
[2017-06-03] MEDS: FERROUS SULFATE (EC) 325 MG TAB PO SCH ×2 (09:00→20:10)
[2017-06-03 10:18] LABS: HYPOCHROMASIA 1+ (0-0); LYMPHOCYTES # 0.5 10^3/ul (0.8-2.9); MONOCYTES % (M) 1 % (0-11); NEUTROPHIL # 2.6 10^3/ul (1.6-7.5)
--- NOTE | 2017-06-03 10:25 | CONS ---
Date/Time of Note Date/Time of Note DATE: 06/03/17 TIME: 10:24 Consult Date/Type/Reason Admit Date/Time May 06, 2017 at 16:34 Initial Consult Date 05/10/17 Type of Consultation: Pulmonary Ordering Provider: OSMAR MONTAGUE Patient receiving blood transfusion. Neurologically unchanged. Off vasopressor support. Objective Vital Signs Date Time Temp Pulse Resp B/P Pulse Ox O2 Delivery O2 Flow Rate FiO2 06/03/17 08:59 64 19 100 30 06/03/17 08:00 94/50 06/03/17 07:30 Mechanical Ventilator 06/03/17 05:30 97.5 Intake and Output 06/02/17 06/02/17 06/03/17 15:00 23:00 07:00 Intake Total 1082.00 ml 1082.50 ml 880 ml Output Total 115 ml 75 ml 45 ml Balance 967.00 ml 1007.50 ml 835 ml Exam PHYSICAL EXAMINATION GENERAL: Elderly lady chronically ill-appearing on mechanical ventilation via tracheostomy VITAL SIGNS: see below. HEENT: Pupils equal, round, and reactive to light. Tracheostomy site clean and intact. CARDIAC: S1, S2, 2/6 systolic ejection murmur CHEST: Diminished air entry bilaterally. ABDOMEN: Mildly distended. Bowel sounds present no guarding or rebound EXTREMITIES: No cyanosis, clubbing edema +2 NEUROLOGIC: Generalized weakness Results/Medications Result Diagram: 06/03/17 0430 06/03/17 0515 Results 24 hrs Laboratory Tests Test 06/02/17 12:43 06/02/17 17:33 06/02/17 22:41 06/03/17 00:51 Bedside Glucose 87 92 112 97 Test 06/03/17 04:30 06/03/17 04:55 06/03/17 05:15 06/03/17 08:43 White Blood Count 3.2 #L Red Blood Count 2.28 L Hemoglobin 6.6 *L Hematocrit 21.2 L Mean Corpuscular Volume 93.0 Mean Corpuscular Hemoglobin 28.9 L Mean Corpuscular Hemoglobin Concent 31.1 L Red Cell Distribution Width 17.7 H Platelet Count 91 L Mean Platelet Volume 10.6 H Neutrophils % Segmented Neutrophils % (Manual) 82 H Lymphocytes % Lymphocytes % (Manual) 17 Monocytes % Monocytes % (Manual) 1 Eosinophils % Basophils % Nucleated Red Blood Cells % 0.9 H Neutrophils # 2.6 Absolute Lymphocytes (Manual) Pending Lymphocytes # 0.5 L Monocytes # 0.0 L Absolute Monocytes (Manual) Pending Eosinophils # Basophils # Nucleated Red Blood Cells # Hypochromasia 1+ Macrocytosis 1+ Bedside Glucose 109 94 Sodium Level 129 L Potassium Level 3.8 Chloride Level 104 Carbon Dioxide Level 17 L Anion Gap 12 Blood Urea Nitrogen 33 H Creatinine 2.13 H Glucose Level 88 # Calcium Level 7.8 L Phosphorus Level 4.1 Magnesium Level 1.9 Medications Current Medications Atorvastatin Calcium (Lipitor) 10 mg QHS GTB Last administered on 05/19/17 21: 00; Admin Dose 10 MG; Start 05/06/17 at 21:00 Bisacodyl (Dulcolax Supp) 10 mg Q48H [place] Last administered on 06/01/17 17:50; Admin Dose 10 MG; Start 05/06/17 at 17:00 Carbidopa/Levodopa (Sinemet (25/ 100)) 1 tab TID GTB Last administered on 22:02; Admin Dose 1 TAB; Start 05/06/17 at 21:00 Donepezil HCl (Aricept) 10 mg QHS GTB Last administered on 05/19/17 21:00; Admin Dose 10 MG; Start 05/06/17 at 21:00 Ferrous Sulfate (Ferrous Sulfate (Ec)) 325 mg BID PO Last administered on 09:09; Admin Dose 325 MG; Start 05/06/17 at 21:00 Folic Acid (Folic Acid) 1 mg DAILY GTB Last administered on 05/22/17 09:09; Admin Dose 1 MG; Start 05/07/17 at 09:00 Lactobacillus Acidophilus/ Rhamnosus (Culturelle) 1 cap QHS GTB Last administered on 05/19/17 21:00; Admin Dose 1 CAP; Start 05/06/17 at 21:00 Magnesium Hydroxide (Milk Of Mag) 30 ml Q24H GTB Last administered on 05/22/17 16:38; Admin Dose 30 ML; Start 05/06/17 at 17:00 Memantine (Namenda) 5 mg QAM GTB Last administered on 05/22/17 09:10; Admin Dose 5 MG; Start 05/07/17 at 09:00 Multivit/Ca Carb/ B Cmplx/FA/Prenat (Radhika-John) 1 tab DAILY GTB Last administered on 05/22/17 09:09; Admin Dose 1 TAB; Start 05/07/17 at 09:00 Pramipexole (Mirapex) 0.5 mg DAILY GTB Last administered on 05/22/17 09:09; Admin Dose 0.5 MG; Start 05/07/17 at 09:00 Sodium Biphosphate/ Sodium Phosphate (Fleet Enema Pediatric) 118 ml Q72H PRN [place] CONSTIPATION; Start 05/06/17 at 17:00 Citric Acid/ Sodium Citrate (Bicitra) 30 ml BID PO Last administered on 09:09; Admin Dose 30 ML; Start 05/06/17 at 21:00 Nystatin (Nystatin Powder) 1 applic BID TOP Last administered on 06/03/17 08: 57; Admin Dose 1 APPLIC; Start 05/09/17 at 21:00 Collagenase (Santyl) 1 applic DAILY TOP Last administered on 06/03/17 08:57; Admin Dose 1 APPLIC; Start 05/09/17 at 15:00 Collagenase (Santyl) 1 applic PRN PRN TOP WOUND CARE; Start 05/09/17 at 14:00 Miscellaneous Information 1 ea NOTE XX ; Start 05/11/17 at 08:00 Glucose (Glutose) 15 gm Q15M PRN PO DECREASED GLUCOSE; Start 05/11/17 at 08:00 Glucose (Glutose) 22.5 gm Q15M PRN PO DECREASED GLUCOSE; Start 05/11/17 at 08: 00 Dextrose (D50w Syringe) 25 ml Q15M PRN IV DECREASED GLUCOSE Last administered on 05/28/17 00:53; Admin Dose 25 ML; Start 05/11/17 at 08:00 Dextrose (D50w Syringe) 50 ml Q15M PRN IV DECREASED GLUCOSE Last administered on 05/15/17 00:11; Admin Dose 50 ML; Start 05/11/17 at 08:00 Glucagon (Glucagen) 1 mg Q15M PRN IM DECREASED GLUCOSE; Start 05/11/17 at 08:00 Glucose (Glutose) 15 gm Q15M PRN BUCCAL DECREASED GLUCOSE; Start 05/11/17 at 08 :00 Epoetin Vasyl (Epogen (Esrd)) 10,000 units MoWeFr@17 SC Last administered on 17:18; Admin Dose 10,000 UNITS; Start 05/13/17 at 17:00 IV Flush (NS 10 ml) 10 ml PRN PRN IV IV PROTOCOL; Start 05/15/17 at 17:30 Amikacin Sulfate AMIKACIN PER PHARMACY NOTE XX ; Start 05/19/17 at 18:00 Cefepime HCl 0.5 gm/Sodium Chloride 100 ml @ 100 mls/hr Q24H IVPB Last administered on 06/02/17 19:54; Admin Dose 100 MLS/HR; Start 05/19/17 at 20:00 Amikacin Sulfate/ Sodium Chloride (Amikacin/NS) 101.4 ml @ 101.4 mls/ hr Q96H IVPB Last administered on 05/31/17 21:08; Admin Dose 101.4 MLS/HR; Start at 21:00 Midodrine (Proamatine) 10 mg TID@ GTB ; Start 05/23/17 at 09:00 Heparin Sodium (Porcine) (Heparin (5000 Units/0.5 ml)) 5,000 unit BID SC Last administered on 06/03/17 08:58; Admin Dose 5,000 UNIT; Start 05/23/17 at 09:00 Insulin Aspart NOVOLOG *MILD* ALGORI... Q4 SC Last administered on 06/01/17 21 :32; Admin Dose 1 UNIT; Start 05/26/17 at 09:00 Total Parenteral Nutrition 1,000 ml @ 40 mls/hr Q24H IV Last administered on 02:46; Admin Dose 40 MLS/HR; Start 05/27/17 at 14:00 Fat Emulsion Intravenous (Liposyn Ii 20%) 250 ml @ 31.25 mls/ hr Q24H IV Last administered on 06/02/17 09:15; Admin Dose 31.25 MLS/HR; Start 05/28/17 at 10:00 Famotidine (Pepcid Iv) 20 mg DAILY IV Last administered on 06/03/17 08:56; Admin Dose 20 MG; Start 05/29/17 at 09:00 Hydrocortisone 25 mg 25 mg Q8 IV Last administered on 06/03/17 06:13; Admin Dose 25 MG; Start 06/01/17 at 14:00 Dopamine HCl/ Dextrose 250 ml @ 6.848 mls/ hr TITRATE IV Last administered on 06/01/17 16:36; Admin Dose 6.848 MLS/HR; Start 06/01/17 at 16:30 Sodium Chloride 1,000 ml @ 75 mls/hr [id number] IV Last administered on 02:45; Admin Dose 75 MLS/HR; Start 06/01/17 at 21:00 Trimethoprim/ Sulfamethoxazole/ Dextrose (Bactrim/D5W) 260 ml @ 173.333 mls/hr Q24H IVPB ; Start 06/03/17 at 14:00 Assessment/Plan Chief Complaint/Hosp Course Additional Assessment/Plan IMP: 1. Septic shock remains vasopressor dependent. Continues dopamine. 2. VDRF 3. Possible healthcare associated pneumonia 4. Cellulitis 5. Urosepsis 6. Encephalopathy chronic, vegetative state 7. STARLA 8. Anemia likely multifactorial. 9. Hyponatremia RECS: 1. Monitor H&H 2. Vent support 3. Palliative Care consultation. Bioethics recs. 4. TF's/Free H20 5. dvt prophylaxis 6. Slowly taper hydrocortisone 7. Transfusion packed red blood cells Very poor prognosis. Critical care time 40 minutes. Problems: JARED CLAIRE MD, [facility] Jun 03, 2017 10:25
[2017-06-03] MEDS: FAT EMULSION 20% 250 ML IV SCH (11:21)
--- NOTE | 2017-06-03 12:05 | PN ---
Date/Time of Note Date/Time of Note DATE: 06/03/17 TIME: 12:00 Assessment/Plan Lines/Catheters IV Catheter Type (from Nrs): PICC Line Collazo in Place (from Nrs): Yes Assessment/Plan Chief Complaint/Hosp Course 1. G-tube dislodgement: replaced with gjtube by GI, continued yellow drainage peristomal; gj tube replacement attempt-unable due to too large of an opening; Now chemical code; currently on tpn; transferred back to icu from floor; off on pressors -hospice/palliative is likely the best option for this patient -possible surgical placement of jtube when medically stable-off pressors 2. Septic shock: multifactorial: 2/2: pneumonia + cellulitis + wounds; persistent, off pressors again -abx -supportive 3. Respiratory failure with trach: PNA with pulm edema; comfortable on vent; mod sputum -pulmonary toilet -abx -supportive 4.STARLA with CKD; anuric currently -judicious fluids -renally dose meds -per nephrology 5. Normocytic anemia: previous coffee ground drainage peristoma;no acute bleed noted; h/h critically low, prbc transfusion today -monitor and transfuse as needed 6. CHF -medical management 7. Diabetes with hypoglycemia -medical management 8. Acute encephalopathy with history of advanced dementia; unchanged neurologically -supportive 9. Decubitus wound. -continue wound care. 10. Peristomal cellulitis 2/2 #1; +pseudomonas: improving with drainage to ostomy bag -local care -abx per sensitivity 11. Pancytopenia: improving 12. Hyponatremia: improving -medical management Patient seen and examined in collaboration with Dr. Meliton Blackburn. Thank you. Problems: Subjective 24 Hr Interval Summary Off pressors, still hypotensive. H/H critically low, s/p PRBC transfusion. Min drainage from [facility]. anuric. comfortable on vent. SR. On tpn Exam/Review of Systems Vital Signs Vitals Vital Signs Date Time Temp Pulse Resp B/P Pulse Ox O2 Delivery O2 Flow Rate FiO2 06/03/17 11:09 59 17 100 30 06/03/17 10:30 114/53 Mechanical Ventilator 06/03/17 05:30 97.5 Intake and Output 06/02/17 06/02/17 06/03/17 15:00 23:00 07:00 Intake Total 1082.00 ml 1082.50 ml 880 ml Output Total 115 ml 75 ml 45 ml Balance 967.00 ml 1007.50 ml 835 ml Exam Free Text/Dictation Constitutional: non-verbal, awake, nonresponsive, ill-appearing No oriented Psych: confusion, withdraws from pain Head: atraumatic, normocephalic Eyes: nl sclera ENMT: mucosa pink and moist, missing teeth Neck: non-tender, other (trach), supple Respiratory: diminished Cardiovascular: edema Gastrointestinal: distended (mod), other (stoma with min yellow drainage to ostomy bag), soft, nontender Musculoskeletal: No muscle tone Extremities: edema worsened Neurological: No nl mental status, No nl speech Skin: other (abdominal/peristomal/breast fold redness, moisture damage/ cellulitis) Results Result Diagram: 06/03/17 0430 06/03/17 0515 SHADI CALDERON NP Jun 03, 2017 12:04
--- NOTE | 2017-06-03 14:40 | PN ---
DATE: SUBJECTIVE DATA: Patient was transferred yesterday to ICU secondary to low blood pressure and hypothermia. Currently on low-dose dopamine drip and blanket warmer. She is obtunded, in no distress. OBJECTIVE DATA: Temperature 97.4, pulse 80, respirations 16, blood pressure 110/58, saturation 100 on 30 FiO2. LABORATORY AND DIAGNOSTIC DATA: WBC 5.2, H and H 8.2 and 26.2, platelets 111, neutrophils 78.7, BUN 28, creatinine 2.12. Indwelling trach, Collazo, PICC line placed on May 16, 2017. Antimicrobials: Amikacin, Bactrim, cefepime. PHYSICAL EXAMINATION: This is a fragile, elderly woman who is obtunded, in no distress. HEENT: Head atraumatic, normocephalic. Sclerae anicteric. Buccal mucosa dry. NECK: Obese, tracheostomy present. CHEST: Chest rise symmetric, breath sounds with scattered crackles and rhonchi. HEART: S1, S2. ABDOMEN: Obese and soft. G-tube site with erythema. Bowel sounds hyperactive. EXTREMITIES: With bilateral edema. SKIN: Generalized anasarca, multiple pressure sores. ASSESSMENT AND PLAN: 1. Shock, remains on vasopressor support. Questionable septic. Questionable hypovolemic. 2. Possible healthcare-associated pneumonia. 3. Chronic respiratory failure. 4. Gastric tube malfunction, with drainage around the G-tube on May 16, grew multidrug resistant Pseudomonas. 5. Acute renal failure. 6. Hyponatremia. 7. Diabetes. 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 PLAN: The patient is doing poorly. She remains on Solu-Cortef and appropriate antimicrobials. Renal function is worsening, which is multifactorial in etiology. She is being followed by multiple consultants. Will continue her on current regimen. Dictated By: Ryder Murillo NP /junie/james /Document#: [id number]
--- NOTE | 2017-06-03 15:11 | CONS ---
Date/Time of Note Date/Time of Note DATE: 06/03/17 TIME: 14:58 Assessment/Plan Assessment/Plan Chief Complaint/Hosp Course 86-year-old debilitated female admitted from subacute with dislodged G-tube. However during hospital course she has developed respiratory failure is currently in the intensive care unit. Major comorbid medical problems include history of advanced dementia, she is PEG trached and chronic kidney disease. She remains in intensive care unit critically ill, she is a full code family members have not addressed ongoing goals of care. Problems: Additional Assessment/Plan Patient remains in the intensive care unit critically ill. There is been no change in overall cognitive condition she has been changed to chemical code. Since she is not improving medically and continues as is I would recommend reconsulting bioethics committee. Consultation Date/Type/Reason Admit Date/Time May 06, 2017 at 16:34 Initial Consult Date 05/22/17 Type of Consultation: Palliative Care Referring Provider: OSMAR MONTAGUE DO Exam/Review of Systems Vital Signs Vitals Vital Signs Date Time Temp Pulse Resp B/P Pulse Ox O2 Delivery O2 Flow Rate FiO2 06/03/17 14:00 58 16 111/53 97 06/03/17 13:30 30 06/03/17 13:00 Mechanical Ventilator 06/03/17 12:00 96.6 Intake and Output 06/02/17 06/02/17 06/03/17 15:00 23:00 07:00 Intake Total 1082.00 ml 1082.50 ml 880 ml Output Total 115 ml 75 ml 45 ml Balance 967.00 ml 1007.50 ml 835 ml Results Result Diagram: 06/03/17 0430 06/03/17 0515 Results 24 hrs Laboratory Tests Test 06/02/17 17:33 06/02/17 22:41 06/03/17 00:51 06/03/17 04:30 Bedside Glucose 92 112 97 White Blood Count 3.2 #L Red Blood Count 2.28 L Hemoglobin 6.6 *L Hematocrit 21.2 L Mean Corpuscular Volume 93.0 Mean Corpuscular Hemoglobin 28.9 L Mean Corpuscular Hemoglobin Concent 31.1 L Red Cell Distribution Width 17.7 H Platelet Count 91 L Mean Platelet Volume 10.6 H Neutrophils % Segmented Neutrophils % (Manual) 82 H Lymphocytes % Lymphocytes % (Manual) 17 Monocytes % Monocytes % (Manual) 1 Eosinophils % Basophils % Nucleated Red Blood Cells % 0.9 H Neutrophils # 2.6 Absolute Lymphocytes (Manual) 0.5 L Lymphocytes # 0.5 L Monocytes # 0.0 L Absolute Monocytes (Manual) 0.0 L Eosinophils # Basophils # Nucleated Red Blood Cells # Hypochromasia 1+ Macrocytosis 1+ Test 06/03/17 04:55 06/03/17 05:15 06/03/17 08:43 06/03/17 14:08 Bedside Glucose 109 94 98 Sodium Level 129 L Potassium Level 3.8 Chloride Level 104 Carbon Dioxide Level 17 L Anion Gap 12 Blood Urea Nitrogen 33 H Creatinine 2.13 H Glucose Level 88 # Calcium Level 7.8 L Phosphorus Level 4.1 Magnesium Level 1.9 Medications Medications Current Medications Atorvastatin Calcium (Lipitor) 10 mg QHS GTB Last administered on 05/19/17 21: 00; Admin Dose 10 MG; Start 05/06/17 at 21:00 Bisacodyl (Dulcolax Supp) 10 mg Q48H IN Last administered on 06/01/17 17:50; Admin Dose 10 MG; Start 05/06/17 at 17:00 Carbidopa/Levodopa (Sinemet (25/ 100)) 1 tab TID GTB Last administered on 22:02; Admin Dose 1 TAB; Start 05/06/17 at 21:00 Donepezil HCl (Aricept) 10 mg QHS GTB Last administered on 05/19/17 21:00; Admin Dose 10 MG; Start 05/06/17 at 21:00 Ferrous Sulfate (Ferrous Sulfate (Ec)) 325 mg BID PO Last administered on 09:09; Admin Dose 325 MG; Start 05/06/17 at 21:00 Folic Acid (Folic Acid) 1 mg DAILY GTB Last administered on 05/22/17 09:09; Admin Dose 1 MG; Start 05/07/17 at 09:00 Lactobacillus Acidophilus/ Rhamnosus (Culturelle) 1 cap QHS GTB Last administered on 05/19/17 21:00; Admin Dose 1 CAP; Start 05/06/17 at 21:00 Magnesium Hydroxide (Milk Of Mag) 30 ml Q24H GTB Last administered on 05/22/17 16:38; Admin Dose 30 ML; Start 05/06/17 at 17:00 Memantine (Namenda) 5 mg QAM GTB Last administered on 05/22/17 09:10; Admin Dose 5 MG; Start 05/07/17 at 09:00 Multivit/Ca Carb/ B Cmplx/FA/Prenat (Radhika-John) 1 tab DAILY GTB Last administered on 05/22/17 09:09; Admin Dose 1 TAB; Start 05/07/17 at 09:00 Pramipexole (Mirapex) 0.5 mg DAILY GTB Last administered on 05/22/17 09:09; Admin Dose 0.5 MG; Start 05/07/17 at 09:00 Sodium Biphosphate/ Sodium Phosphate (Fleet Enema Pediatric) 118 ml Q72H PRN IN CONSTIPATION; Start 05/06/17 at 17:00 Citric Acid/ Sodium Citrate (Bicitra) 30 ml BID PO Last administered on 09:09; Admin Dose 30 ML; Start 05/06/17 at 21:00 Nystatin (Nystatin Powder) 1 applic BID TOP Last administered on 06/03/17 08: 57; Admin Dose 1 APPLIC; Start 05/09/17 at 21:00 Collagenase (Santyl) 1 applic DAILY TOP Last administered on 06/03/17 08:57; Admin Dose 1 APPLIC; Start 05/09/17 at 15:00 Collagenase (Santyl) 1 applic PRN PRN TOP WOUND CARE; Start 05/09/17 at 14:00 Miscellaneous Information 1 ea NOTE XX ; Start 05/11/17 at 08:00 Glucose (Glutose) 15 gm Q15M PRN PO DECREASED GLUCOSE; Start 05/11/17 at 08:00 Glucose (Glutose) 22.5 gm Q15M PRN PO DECREASED GLUCOSE; Start 05/11/17 at 08: 00 Dextrose (D50w Syringe) 25 ml Q15M PRN IV DECREASED GLUCOSE Last administered on 05/28/17 00:53; Admin Dose 25 ML; Start 05/11/17 at 08:00 Dextrose (D50w Syringe) 50 ml Q15M PRN IV DECREASED GLUCOSE Last administered on 05/15/17 00:11; Admin Dose 50 ML; Start 05/11/17 at 08:00 Glucagon (Glucagen) 1 mg Q15M PRN IM DECREASED GLUCOSE; Start 05/11/17 at 08:00 Glucose (Glutose) 15 gm Q15M PRN BUCCAL DECREASED GLUCOSE; Start 05/11/17 at 08 :00 Epoetin Vaysl (Epogen (Esrd)) 10,000 units MoWeFr@17 SC Last administered on 17:18; Admin Dose 10,000 UNITS; Start 05/13/17 at 17:00 IV Flush (NS 10 ml) 10 ml PRN PRN IV IV PROTOCOL; Start 05/15/17 at 17:30 Amikacin Sulfate AMIKACIN PER PHARMACY NOTE XX ; Start 05/19/17 at 18:00 Cefepime HCl 0.5 gm/Sodium Chloride 100 ml @ 100 mls/hr Q24H IVPB Last administered on 06/02/17 19:54; Admin Dose 100 MLS/HR; Start 05/19/17 at 20:00 Amikacin Sulfate/ Sodium Chloride (Amikacin/NS) 101.4 ml @ 101.4 mls/ hr Q96H IVPB Last administered on 05/31/17 21:08; Admin Dose 101.4 MLS/HR; Start at 21:00 Midodrine (Proamatine) 10 mg TID@, GTB ; Start 05/23/17 at 09:00 Heparin Sodium (Porcine) (Heparin (5000 Units/0.5 ml)) 5,000 unit BID SC Last administered on 06/03/17 08:58; Admin Dose 5,000 UNIT; Start 05/23/17 at 09:00 Insulin Aspart NOVOLOG *MILD* ALGORI... Q4 SC Last administered on 06/01/17 21 :32; Admin Dose 1 UNIT; Start 05/26/17 at 09:00 Total Parenteral Nutrition 1,000 ml @ 40 mls/hr Q24H IV Last administered on 02:46; Admin Dose 40 MLS/HR; Start 05/27/17 at 14:00 Fat Emulsion Intravenous (Liposyn Ii 20%) 250 ml @ 31.25 mls/ hr Q24H IV Last administered on 06/03/17 11:21; Admin Dose 31.25 MLS/HR; Start 05/28/17 at 10:00 Famotidine (Pepcid Iv) 20 mg DAILY IV Last administered on 06/03/17 08:56; Admin Dose 20 MG; Start 05/29/17 at 09:00 Hydrocortisone 25 mg 25 mg Q8 IV Last administered on 06/03/17 06:13; Admin Dose 25 MG; Start 06/01/17 at 14:00 Dopamine HCl/ Dextrose 250 ml @ 6.848 mls/ hr TITRATE IV Last administered on 06/01/17 16:36; Admin Dose 6.848 MLS/HR; Start 06/01/17 at 16:30 Sodium Chloride 1,000 ml @ 75 mls/hr [id number] IV Last administered on 02:45; Admin Dose 75 MLS/HR; Start 06/01/17 at 21:00 Trimethoprim/ Sulfamethoxazole/ Dextrose (Bactrim/D5W) 260 ml @ 173.333 mls/hr Q24H IVPB ; Start 06/03/17 at 14:00 Miscellaneous Information AMIKACIN TROUGH AT 2... ONCE ONCE XX ; Start at 20:00; Stop 06/04/17 at 20:01 Caspofungin 50 mg/ Sodium Chloride 250 ml @ 250 mls/hr Q24H IVPB ; Start at 15:30 Caspofungin/ Sodium Chloride (Cancidas/NS) 250 ml @ 250 mls/hr ONCE ONCE IVPB ; Start 06/03/17 at 15:30; Stop 06/03/17 at 16:29 PENELOPE POPE Jun 03, 2017 15:08
[2017-06-03] MEDS ORDERED: CASPOFUNGIN 70 MG in SOD CHLORIDE 0.9% 250 ML IVPB ONE (15:30)
--- NOTE | 2017-06-03 15:35 | CONS ---
Date/Time of Note Date/Time of Note DATE: 06/03/17 TIME: 15:33 Assessment/Plan Assessment/Plan Chief Complaint/Hosp Course This 69-year-old female with a history of CVA vent dependent respiratory failure , was brought to the emergency room for the dislodgment of the GJ tube. Patient is nonverbal and no information can be obtained. No GI bleeding no chest pain no shortness of breath. Problems: Additional Assessment/Plan Assessment/Plan Chief Complaint/Hosp Course This 69-year-old female with a history of CVA vent dependent respiratory failure , was brought to the emergency room for the dislodgment of the GJ tube. Patient is nonverbal and no information can be obtained. No GI bleeding no chest pain no shortness of breath. Problems: Additional Assessment/Plan Additional Assessment/Plan Additional Assessment/Plan 1. Dislodged GJ tube accidentally 2. Vent dependent respiratory failure 3. Chronic encephalopathy 4. Renal failure 5. Peripheral vascular disease 6. Anemia, secondary to chronic disease no evidence of active bleeding 7. Large gastrocutaneous fistula, endoscopically it is not possible to keep the largest diameter GJ tube in place 8. Hypotension, corrected patient is off dopamine for more than 24 hours 9. Decubitus ulcer 10. Workup for adrenal insufficiency Plan Continue all supportive care Surgery to fix the gastrocutaneous fistula once patient is off dopamine Blood transfusion Monitor for acute overt GI bleeding Consultation Date/Type/Reason Admit Date/Time May 06, 2017 at 16:34 Type of Consultation: Palliative Care Referring Provider: OSMAR MONTAGUE DO 24 HR Interval Summary Subjective hx not possible: pt non-verbal, pt critical Exam/Review of Systems Vital Signs Vitals Vital Signs Date Time Temp Pulse Resp B/P Pulse Ox O2 Delivery O2 Flow Rate FiO2 06/03/17 15:00 63 16 100 30 06/03/17 14:00 111/53 06/03/17 13:00 Mechanical Ventilator 06/03/17 12:00 96.6 Intake and Output 06/02/17 06/02/17 06/03/17 15:00 23:00 07:00 Intake Total 1082.00 ml 1082.50 ml 880 ml Output Total 115 ml 75 ml 45 ml Balance 967.00 ml 1007.50 ml 835 ml Exam Constitutional: non-verbal Respiratory: other (Patient is on vent) Cardiovascular: nl pulses, regular rate and rhythm Gastrointestinal: nl liver, spleen, non-tender, other (Stoma is reducing in size, colostomy bag attached), soft Musculoskeletal: nl extremities to inspection, nl gait and stance Neurological: unresponsive Results Result Diagram: 06/03/17 0430 06/03/17 0515 Results 24 hrs Laboratory Tests Test 06/02/17 17:33 06/02/17 22:41 06/03/17 00:51 06/03/17 04:30 Bedside Glucose 92 112 97 White Blood Count 3.2 #L Red Blood Count 2.28 L Hemoglobin 6.6 *L Hematocrit 21.2 L Mean Corpuscular Volume 93.0 Mean Corpuscular Hemoglobin 28.9 L Mean Corpuscular Hemoglobin Concent 31.1 L Red Cell Distribution Width 17.7 H Platelet Count 91 L Mean Platelet Volume 10.6 H Neutrophils % Segmented Neutrophils % (Manual) 82 H Lymphocytes % Lymphocytes % (Manual) 17 Monocytes % Monocytes % (Manual) 1 Eosinophils % Basophils % Nucleated Red Blood Cells % 0.9 H Neutrophils # 2.6 Absolute Lymphocytes (Manual) 0.5 L Lymphocytes # 0.5 L Monocytes # 0.0 L Absolute Monocytes (Manual) 0.0 L Eosinophils # Basophils # Nucleated Red Blood Cells # Hypochromasia 1+ Macrocytosis 1+ Test 06/03/17 04:55 06/03/17 05:15 06/03/17 08:43 06/03/17 14:08 Bedside Glucose 109 94 98 Sodium Level 129 L Potassium Level 3.8 Chloride Level 104 Carbon Dioxide Level 17 L Anion Gap 12 Blood Urea Nitrogen 33 H Creatinine 2.13 H Glucose Level 88 # Calcium Level 7.8 L Phosphorus Level 4.1 Magnesium Level 1.9 Medications Medications Current Medications Atorvastatin Calcium (Lipitor) 10 mg QHS GTB Last administered on 05/19/17 21: 00; Admin Dose 10 MG; Start 05/06/17 at 21:00 Bisacodyl (Dulcolax Supp) 10 mg Q48H [place] Last administered on 06/01/17 17:50; Admin Dose 10 MG; Start 05/06/17 at 17:00 Carbidopa/Levodopa (Sinemet (25/ 100)) 1 tab TID GTB Last administered on 22:02; Admin Dose 1 TAB; Start 05/06/17 at 21:00 Donepezil HCl (Aricept) 10 mg QHS GTB Last administered on 05/19/17 21:00; Admin Dose 10 MG; Start 05/06/17 at 21:00 Ferrous Sulfate (Ferrous Sulfate (Ec)) 325 mg BID PO Last administered on 09:09; Admin Dose 325 MG; Start 05/06/17 at 21:00 Folic Acid (Folic Acid) 1 mg DAILY GTB Last administered on 05/22/17 09:09; Admin Dose 1 MG; Start 05/07/17 at 09:00 Lactobacillus Acidophilus/ Rhamnosus (Culturelle) 1 cap QHS GTB Last administered on 05/19/17 21:00; Admin Dose 1 CAP; Start 05/06/17 at 21:00 Magnesium Hydroxide (Milk Of Mag) 30 ml Q24H GTB Last administered on 05/22/17 16:38; Admin Dose 30 ML; Start 05/06/17 at 17:00 Memantine (Namenda) 5 mg QAM GTB Last administered on 05/22/17 09:10; Admin Dose 5 MG; Start 05/07/17 at 09:00 Multivit/Ca Carb/ B Cmplx/FA/Prenat (Radhika-John) 1 tab DAILY GTB Last administered on 05/22/17 09:09; Admin Dose 1 TAB; Start 05/07/17 at 09:00 Pramipexole (Mirapex) 0.5 mg DAILY GTB Last administered on 05/22/17 09:09; Admin Dose 0.5 MG; Start 05/07/17 at 09:00 Sodium Biphosphate/ Sodium Phosphate (Fleet Enema Pediatric) 118 ml Q72H PRN [place] CONSTIPATION; Start 05/06/17 at 17:00 Citric Acid/ Sodium Citrate (Bicitra) 30 ml BID PO Last administered on 09:09; Admin Dose 30 ML; Start 05/06/17 at 21:00 Nystatin (Nystatin Powder) 1 applic BID TOP Last administered on 06/03/17 08: 57; Admin Dose 1 APPLIC; Start 05/09/17 at 21:00 Collagenase (Santyl) 1 applic DAILY TOP Last administered on 06/03/17 08:57; Admin Dose 1 APPLIC; Start 05/09/17 at 15:00 Collagenase (Santyl) 1 applic PRN PRN TOP WOUND CARE; Start 05/09/17 at 14:00 Miscellaneous Information 1 ea NOTE XX ; Start 05/11/17 at 08:00 Glucose (Glutose) 15 gm Q15M PRN PO DECREASED GLUCOSE; Start 05/11/17 at 08:00 Glucose (Glutose) 22.5 gm Q15M PRN PO DECREASED GLUCOSE; Start 05/11/17 at 08: 00 Dextrose (D50w Syringe) 25 ml Q15M PRN IV DECREASED GLUCOSE Last administered on 05/28/17 00:53; Admin Dose 25 ML; Start 05/11/17 at 08:00 Dextrose (D50w Syringe) 50 ml Q15M PRN IV DECREASED GLUCOSE Last administered on 05/15/17 00:11; Admin Dose 50 ML; Start 05/11/17 at 08:00 Glucagon (Glucagen) 1 mg Q15M PRN IM DECREASED GLUCOSE; Start 05/11/17 at 08:00 Glucose (Glutose) 15 gm Q15M PRN BUCCAL DECREASED GLUCOSE; Start 05/11/17 at 08 :00 Epoetin Vasyl (Epogen (Esrd)) 10,000 units MoWeFr@17 SC Last administered on 17:18; Admin Dose 10,000 UNITS; Start 05/13/17 at 17:00 IV Flush (NS 10 ml) 10 ml PRN PRN IV IV PROTOCOL; Start 05/15/17 at 17:30 Amikacin Sulfate AMIKACIN PER PHARMACY NOTE XX ; Start 05/19/17 at 18:00 Cefepime HCl 0.5 gm/Sodium Chloride 100 ml @ 100 mls/hr Q24H IVPB Last administered on 06/02/17 19:54; Admin Dose 100 MLS/HR; Start 05/19/17 at 20:00 Amikacin Sulfate/ Sodium Chloride (Amikacin/NS) 101.4 ml @ 101.4 mls/ hr Q96H IVPB Last administered on 05/31/17 21:08; Admin Dose 101.4 MLS/HR; Start at 21:00 Midodrine (Proamatine) 10 mg TID@,,17 GTB ; Start 05/23/17 at 09:00 Heparin Sodium (Porcine) (Heparin (5000 Units/0.5 ml)) 5,000 unit BID SC Last administered on 06/03/17 08:58; Admin Dose 5,000 UNIT; Start 05/23/17 at 09:00 Insulin Aspart NOVOLOG *MILD* ALGORI... Q4 SC Last administered on 06/01/17 21 :32; Admin Dose 1 UNIT; Start 05/26/17 at 09:00 Total Parenteral Nutrition 1,000 ml @ 40 mls/hr Q24H IV Last administered on 02:46; Admin Dose 40 MLS/HR; Start 05/27/17 at 14:00 Fat Emulsion Intravenous (Liposyn Ii 20%) 250 ml @ 31.25 mls/ hr Q24H IV Last administered on 06/03/17 11:21; Admin Dose 31.25 MLS/HR; Start 05/28/17 at 10:00 Famotidine (Pepcid Iv) 20 mg DAILY IV Last administered on 06/03/17 08:56; Admin Dose 20 MG; Start 05/29/17 at 09:00 Hydrocortisone 25 mg 25 mg Q8 IV Last administered on 06/03/17 14:59; Admin Dose 25 MG; Start 06/01/17 at 14:00 Dopamine HCl/ Dextrose 250 ml @ 6.848 mls/ hr TITRATE IV Last administered on 06/01/17 16:36; Admin Dose 6.848 MLS/HR; Start 06/01/17 at 16:30 Sodium Chloride 1,000 ml @ 75 mls/hr [id number] IV Last administered on 02:45; Admin Dose 75 MLS/HR; Start 06/01/17 at 21:00 Trimethoprim/ Sulfamethoxazole/ Dextrose (Bactrim/D5W) 260 ml @ 173.333 mls/hr Q24H IVPB ; Start 06/03/17 at 14:00 Miscellaneous Information AMIKACIN TROUGH AT 2... ONCE ONCE XX ; Start at 20:00; Stop 06/04/17 at 20:01 Caspofungin 50 mg/ Sodium Chloride 250 ml @ 250 mls/hr Q24H IVPB ; Start at 15:30 Caspofungin/ Sodium Chloride (Cancidas/NS) 250 ml @ 250 mls/hr ONCE ONCE IVPB ; Start 06/03/17 at 15:30; Stop 06/03/17 at 16:29 SYLWIA SY MD Jun 03, 2017 15:34
[2017-06-03 15:44] LABS: HEMATOCRIT 31.1 % (37.0-47.0); HEMOGLOBIN 10.2 g/dl (12.0-16.0)
[2017-06-03] MEDS: TRIMETHOPRIM/SULFAMETHOXAZOLE 10 ML in DEXTROSE 5% 250 ML IVPB SCH (15:50)
--- NOTE | 2017-06-03 15:56 | CONS ---
Date/Time of Note Date/Time of Note DATE: 06/03/17 TIME: 15:54 Consult Date/Type/Reason Admit Date/Time May 06, 2017 at 16:34 Initial Consult Date 05/22/17 Type of Consultation: cardiology Ordering Provider: OSMAR ROSAS DO Subjective CARDIOLOGY FOLLOW UP NOTE: Discussed with staff and DR Jacome rhythm was reviewed. Pt remains in NSR d/w Dr Rosas pt remains in NSR. NO AFIB seen pt remains NONVERBAL. pt is still ICU oFF OF dopamine drip now pt is on TPN now. OBJECTIVE: General: no acute distress. s/p trach on vent. HEENT: NC/AT. NECK: NO JVD. no stridor. S/P trach on vent CV: RRR. systolic murmur; no gallop or rubs. PULM: no wheezing anteriorly GI: SOFT, NT, ND, no rebound or guarding s/p dressing at the site of previous G tube Extremity: + B/L LE and UE edema. no clubbing. neuro: opens her eyes to painful stimuli. does not follow commands Psych: calm rectal: deferred Objective Vital Signs Date Time Temp Pulse Resp B/P Pulse Ox O2 Delivery O2 Flow Rate FiO2 06/03/17 15:00 63 16 100 30 06/03/17 14:00 111/53 06/03/17 13:00 Mechanical Ventilator 06/03/17 12:00 96.6 Intake and Output 06/02/17 06/02/17 06/03/17 15:00 23:00 07:00 Intake Total 1082.00 ml 1082.50 ml 880 ml Output Total 115 ml 75 ml 45 ml Balance 967.00 ml 1007.50 ml 835 ml Results/Medications Result Diagram: 06/03/17 1535 06/03/17 0515 Results 24 hrs Laboratory Tests Test 06/02/17 17:33 06/02/17 22:41 06/03/17 00:51 06/03/17 04:30 Bedside Glucose 92 112 97 White Blood Count 3.2 #L Red Blood Count 2.28 L Hemoglobin 6.6 *L Hematocrit 21.2 L Mean Corpuscular Volume 93.0 Mean Corpuscular Hemoglobin 28.9 L Mean Corpuscular Hemoglobin Concent 31.1 L Red Cell Distribution Width 17.7 H Platelet Count 91 L Mean Platelet Volume 10.6 H Neutrophils % Segmented Neutrophils % (Manual) 82 H Lymphocytes % Lymphocytes % (Manual) 17 Monocytes % Monocytes % (Manual) 1 Eosinophils % Basophils % Nucleated Red Blood Cells % 0.9 H Neutrophils # 2.6 Absolute Lymphocytes (Manual) 0.5 L Lymphocytes # 0.5 L Monocytes # 0.0 L Absolute Monocytes (Manual) 0.0 L Eosinophils # Basophils # Nucleated Red Blood Cells # Hypochromasia 1+ Macrocytosis 1+ Test 06/03/17 04:55 06/03/17 05:15 06/03/17 08:43 06/03/17 14:08 Bedside Glucose 109 94 98 Sodium Level 129 L Potassium Level 3.8 Chloride Level 104 Carbon Dioxide Level 17 L Anion Gap 12 Blood Urea Nitrogen 33 H Creatinine 2.13 H Glucose Level 88 # Calcium Level 7.8 L Phosphorus Level 4.1 Magnesium Level 1.9 Test 06/03/17 15:35 Hemoglobin 10.2 #L Hematocrit 31.1 #L Medications Current Medications Atorvastatin Calcium (Lipitor) 10 mg QHS GTB Last administered on 05/19/17 21: 00; Admin Dose 10 MG; Start 05/06/17 at 21:00 Bisacodyl (Dulcolax Supp) 10 mg Q48H [place] Last administered on 06/01/17 17:50; Admin Dose 10 MG; Start 05/06/17 at 17:00 Carbidopa/Levodopa (Sinemet (25/ 100)) 1 tab TID GTB Last administered on 22:02; Admin Dose 1 TAB; Start 05/06/17 at 21:00 Donepezil HCl (Aricept) 10 mg QHS GTB Last administered on 05/19/17 21:00; Admin Dose 10 MG; Start 05/06/17 at 21:00 Ferrous Sulfate (Ferrous Sulfate (Ec)) 325 mg BID PO Last administered on 09:09; Admin Dose 325 MG; Start 05/06/17 at 21:00 Folic Acid (Folic Acid) 1 mg DAILY GTB Last administered on 05/22/17 09:09; Admin Dose 1 MG; Start 05/07/17 at 09:00 Lactobacillus Acidophilus/ Rhamnosus (Culturelle) 1 cap QHS GTB Last administered on 05/19/17 21:00; Admin Dose 1 CAP; Start 05/06/17 at 21:00 Magnesium Hydroxide (Milk Of Mag) 30 ml Q24H GTB Last administered on 05/22/17 16:38; Admin Dose 30 ML; Start 05/06/17 at 17:00 Memantine (Namenda) 5 mg QAM GTB Last administered on 05/22/17 09:10; Admin Dose 5 MG; Start 05/07/17 at 09:00 Multivit/Ca Carb/ B Cmplx/FA/Prenat (Radhika-John) 1 tab DAILY GTB Last administered on 05/22/17 09:09; Admin Dose 1 TAB; Start 05/07/17 at 09:00 Pramipexole (Mirapex) 0.5 mg DAILY GTB Last administered on 05/22/17 09:09; Admin Dose 0.5 MG; Start 05/07/17 at 09:00 Sodium Biphosphate/ Sodium Phosphate (Fleet Enema Pediatric) 118 ml Q72H PRN [place] CONSTIPATION; Start 05/06/17 at 17:00 Citric Acid/ Sodium Citrate (Bicitra) 30 ml BID PO Last administered on 09:09; Admin Dose 30 ML; Start 05/06/17 at 21:00 Nystatin (Nystatin Powder) 1 applic BID TOP Last administered on 06/03/17 08: 57; Admin Dose 1 APPLIC; Start 05/09/17 at 21:00 Collagenase (Santyl) 1 applic DAILY TOP Last administered on 06/03/17 08:57; Admin Dose 1 APPLIC; Start 05/09/17 at 15:00 Collagenase (Santyl) 1 applic PRN PRN TOP WOUND CARE; Start 05/09/17 at 14:00 Miscellaneous Information 1 ea NOTE XX ; Start 05/11/17 at 08:00 Glucose (Glutose) 15 gm Q15M PRN PO DECREASED GLUCOSE; Start 05/11/17 at 08:00 Glucose (Glutose) 22.5 gm Q15M PRN PO DECREASED GLUCOSE; Start 05/11/17 at 08: 00 Dextrose (D50w Syringe) 25 ml Q15M PRN IV DECREASED GLUCOSE Last administered on 05/28/17 00:53; Admin Dose 25 ML; Start 05/11/17 at 08:00 Dextrose (D50w Syringe) 50 ml Q15M PRN IV DECREASED GLUCOSE Last administered on 05/15/17 00:11; Admin Dose 50 ML; Start 05/11/17 at 08:00 Glucagon (Glucagen) 1 mg Q15M PRN IM DECREASED GLUCOSE; Start 05/11/17 at 08:00 Glucose (Glutose) 15 gm Q15M PRN BUCCAL DECREASED GLUCOSE; Start 05/11/17 at 08 :00 Epoetin Vasyl (Epogen (Esrd)) 10,000 units MoWeFr@17 SC Last administered on 17:18; Admin Dose 10,000 UNITS; Start 05/13/17 at 17:00 IV Flush (NS 10 ml) 10 ml PRN PRN IV IV PROTOCOL; Start 05/15/17 at 17:30 Amikacin Sulfate AMIKACIN PER PHARMACY NOTE XX ; Start 05/19/17 at 18:00 Cefepime HCl 0.5 gm/Sodium Chloride 100 ml @ 100 mls/hr Q24H IVPB Last administered on 06/02/17 19:54; Admin Dose 100 MLS/HR; Start 05/19/17 at 20:00 Amikacin Sulfate/ Sodium Chloride (Amikacin/NS) 101.4 ml @ 101.4 mls/ hr Q96H IVPB Last administered on 05/31/17 21:08; Admin Dose 101.4 MLS/HR; Start at 21:00 Midodrine (Proamatine) 10 mg TID@,,17 GTB ; Start 05/23/17 at 09:00 Heparin Sodium (Porcine) (Heparin (5000 Units/0.5 ml)) 5,000 unit BID SC Last administered on 06/03/17 08:58; Admin Dose 5,000 UNIT; Start 05/23/17 at 09:00 Insulin Aspart NOVOLOG *MILD* ALGORI... Q4 SC Last administered on 06/01/17 21 :32; Admin Dose 1 UNIT; Start 05/26/17 at 09:00 Total Parenteral Nutrition 1,000 ml @ 40 mls/hr Q24H IV Last administered on 02:46; Admin Dose 40 MLS/HR; Start 05/27/17 at 14:00 Fat Emulsion Intravenous (Liposyn Ii 20%) 250 ml @ 31.25 mls/ hr Q24H IV Last administered on 06/03/17 11:21; Admin Dose 31.25 MLS/HR; Start 05/28/17 at 10:00 Famotidine (Pepcid Iv) 20 mg DAILY IV Last administered on 06/03/17 08:56; Admin Dose 20 MG; Start 05/29/17 at 09:00 Hydrocortisone 25 mg 25 mg Q8 IV Last administered on 06/03/17 14:59; Admin Dose 25 MG; Start 06/01/17 at 14:00 Dopamine HCl/ Dextrose 250 ml @ 6.848 mls/ hr TITRATE IV Last administered on 06/01/17 16:36; Admin Dose 6.848 MLS/HR; Start 06/01/17 at 16:30 Sodium Chloride 1,000 ml @ 75 mls/hr [id number] IV Last administered on 02:45; Admin Dose 75 MLS/HR; Start 06/01/17 at 21:00 Trimethoprim/ Sulfamethoxazole/ Dextrose (Bactrim/D5W) 260 ml @ 173.333 mls/hr Q24H IVPB Last administered on 06/03/17 15:50; Admin Dose 173.333 MLS/HR; Start 06/03/17 at 14:00 Miscellaneous Information AMIKACIN TROUGH AT 2... ONCE ONCE XX ; Start at 20:00; Stop 06/04/17 at 20:01 Caspofungin 50 mg/ Sodium Chloride 250 ml @ 250 mls/hr Q24H IVPB ; Start at 15:30 Caspofungin/ Sodium Chloride (Cancidas/NS) 250 ml @ 250 mls/hr ONCE ONCE IVPB ; Start 06/03/17 at 15:30; Stop 06/03/17 at 16:29 Assessment/Plan Chief Complaint/Hosp Course 1. hypoxemic resp failure: s/p trach 2. Pafib; currently in NSR 3. hx HTN: now in shock and hypotensive. : off of dopamine drip since yesterday 4. encephalopathy 5. renal failure: f/u with nephrology 6. dysphagia 7. G tube malfunction/ infection: unable to repair by GI. 8. GI bleed 9. severe anemia 10. malnutrition 11. anasarca and fluid overload. will cont dopamine drip and titrate off once BP remains stable. cont resp care nutritional support. CONT ICU care as long as pt is on pressors correct lytes prn off of PLAVIX DUE TO ANEMIA/ BLEEDING. pt is also NPO and unable to take po meds. F/U with GI and surgery rec. nutritional support. CODE STATUS IS chemical code only now. THANK YOU. Problems: MILAGROS MUNOZ MD Jun 03, 2017 15:56
[2017-06-03] MEDS: MAGNESIUM HYDROXIDE 30ML CUP GTB SCH (17:00)
[2017-06-03] MEDS: BISACODYL 10 MG SUPP PR SCH (17:34)
[2017-06-03] MEDS: EPOETIN 10000 UNITS/1 ML INJ (ESRD) SC SCH (17:35)
[2017-06-03] MEDS: CEFEPIME HCL 0.5 GM in SOD CHLORIDE 0.9% 100 ML IVPB SCH (20:03)
[2017-06-03] MEDS: DONEPEZIL 10 MG TAB GTB SCH (20:09)
[2017-06-03] MEDS: LACTOBACILLUS RHAMNOSUS CAP GTB SCH (20:09)
[2017-06-03] MEDS: ATORVASTATIN 10 MG TAB GTB SCH (20:10)
[2017-06-04] VITALS (38 sets, daily range): BP systolic 96–136; BP diastolic 50–77; PULSE 55–76; RESP 15–20
[2017-06-04] MEDS: INSULIN ASPART [NOVOLOG] 3 ML PEN SC SCH ×6 (01:00→21:00)
[2017-06-04] MEDS: SOD CHLORIDE 0.9% 1,000 ML IV SCH ×2 (02:04→16:37)
--- NOTE | 2017-06-04 04:10 | PN ---
DATE: 06/03/2017 SUBJECTIVE DATA: No acute changes overnight. Patient looks comfortable. Nonverbal and noncommunicative. VITAL SIGNS: Temperature 97.5, pulse 67, respirations 16, blood pressure 114/53, saturation 99 on 30 FiO2. LABORATORY AND DIAGNOSTIC DATA: WBC 3.2, H and H 6.6 [____], platelets 91, neutrophils 82. BUN 33, creatinine 2.13. INDWELLING: Trach, Collazo catheter, right upper extremity PICC line. PHYSICAL EXAMINATION: This is a chronically ill-appearing, elderly woman who is in no distress. HEENT: Head atraumatic, normocephalic. Sclerae anicteric. Buccal mucosa dry. NECK: Supple. Tracheostomy present. CHEST: Rise symmetrical. Breath sounds diminished at bases. HEART: S1, S2. ABDOMEN: Obese, soft with drainage around G-tube present, some erythema. EXTREMITIES: With edema and erythema. SKIN: No jaundice. Generalized edema noted. ASSESSMENT: 1. Sepsis with shock, requiring vasopressor support. 2. Chronic respiratory failure. 3. Possible healthcare-associated pneumonia. 4. G-tube malfunction. 5. Lwgyo-cj-nxjtmyp kidney disease. 6. Diabetes. 7. Chronic encephalopathy. PLAN: Patient remains unstable. Getting blood transfusion. We are going to repeat cultures. We are going to keep her on current antibiotics for now. Continue vent support per Pulmonary. Follow recommendations of consultants. Dictated By: Ryder Murillo NP /junie/rodrick /Document#: [id number] [facility]
[2017-06-04 05:00] LABS: ABNORMAL IP MESSAGE 1; EOSINOPHILS % 0.3 % (0.0-7.0); HEMATOCRIT 26.8 % (37.0-47.0); HEMOGLOBIN 8.5 g/dl (12.0-16.0); LYMPHOCYTES # 0.5 10^3/ul (0.8-2.9); LYMPHOCYTES % 12.3 % (15.0-51.0); MEAN CORPUSCULAR HEMOGLOBIN 28.3 pg (29.0-33.0); MEAN CORPUSCULAR HGB CONC 31.7 g/dl (32.0-37.0); MEAN CORPUSCULAR VOLUME 89.3 fl (82.0-101.0); MEAN PLATELET VOLUME 10.5 fl (7.4-10.4); MONOCYTE # 0.2 10^3/ul (0.3-0.9); NEUTROPHILS % 80.4 % (39.0-77.0); NUCLEATED RED BLOOD CELLS% 0.8 /100WBC (0.0-0.0); PLATELET COUNT 90 10^3/UL (140-415); WHITE BLOOD COUNT 3.8 10^3/ul (4.8-10.8)
[2017-06-04 05:20] LABS: POSITIVE DIFF @See below
[2017-06-04 05:25] LABS: CALCIUM 8.1 mg/dl (8.4-10.2); CREATININE 2.51 mg/dl (0.44-1.00); MAGNESIUM 2.2 mg/dl (1.7-2.5); POTASSIUM 3.8 mmol/L (3.5-5.1)
[2017-06-04] MEDS: HYDROCORTISONE 100 MG INJ IV SCH ×3 (05:28→21:20)
[2017-06-04] MEDS: TPN 1,000 ML IV SCH (05:41)
[2017-06-04] MEDS: MIDODRINE 5 MG TAB GTB SCH ×3 (09:00→16:45)
[2017-06-04] MEDS: MULTIVIT/CA CARB/B CMPLX/FA TAB GTB SCH (09:00)
[2017-06-04] MEDS: CARBIDOPA/LEVODOPA (25/100) TAB GTB SCH ×3 (09:00→21:00)
[2017-06-04] MEDS: FOLIC ACID 1 MG TAB GTB SCH (09:00)
[2017-06-04] MEDS: PRAMIPEXOLE 0.25 MG TAB GTB SCH (09:00)
[2017-06-04] MEDS: CITRIC ACID/NA CITRATE 30 ML CUP PO SCH ×2 (09:00→21:00)
[2017-06-04] MEDS: FERROUS SULFATE (EC) 325 MG TAB PO SCH ×2 (09:00→21:00)
[2017-06-04] MEDS: MEMANTINE 5 MG TAB GTB SCH (09:00)
[2017-06-04 09:47] LABS: ANISOCYTOSIS 1+ (0-0); ERYTHROBLAST% (NRBC) (M) 1 % (0-0); GIANT THROMBO% (M) 1 % (0-0); HYPOCHROMASIA 1+ (0-0); MONOCYTES % (M) 3 % (0-11); PLATELET ESTIMATE DECREASED; POLYCHROMASIA 3+ (0-0); TEAR DROP CELLS 1+ (0-0)
[2017-06-04] MEDS: FAMOTIDINE 20 MG INJ IV SCH (09:57)
[2017-06-04] MEDS: HEPARIN 5,000 UNIT/0.5 ML VIAL SC SCH ×2 (09:58→21:23)
[2017-06-04] MEDS: NYSTATIN 30 GM POWDER BTL TOP SCH ×2 (09:58→21:15)
[2017-06-04] MEDS: COLLAGENASE 30 GM TUBE TOP SCH (09:59)
--- NOTE | 2017-06-04 10:02 | PN ---
Date/Time of Note Date/Time of Note DATE: 06/04/17 TIME: 09:58 Assessment/Plan VTE Prophylaxis VTE Prophylaxis Intervention: other Lines/Catheters IV Catheter Type (from Nrsg): PICC Line Central line still needed: Yes Urinary Cath still in place: Yes Reason Cath still needed: urinary retention Assessment/Plan Assessment/Plan 1. Septic shock, etiology is multifactorial. The patient has currently been weaned off pressors. Will continue current treatment plan. Antibiotics, continue IV fluids. Continue to monitor. 2. Anemia. s/p transfusion 3. Questionable adrenal insufficiency. The patient was placed on stress steroids, now being tapered off. Appreciate endocrine evaluation. 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 Follow up with General Surgery. 5. Oligoanuric acute kidney injury on top of chronic kidney disease stage IV. Etiology secondary to ATN, septic and septic acute kidney injury. Plan is to give diuretic challenge. dialysis is futile in this patient 6. Ventilatory-dependent respiratory failure. Vent settings reviewed. ABGs reviewed. Continue to monitor. 7. Hyponatremia, etiology secondary to acute kidney injury in conjunction with hypotonic fluids. The patient's sodium levels have slowly been improving. Continue to monitor. 8. Acute encephalopathy and advanced dementia, etiology toxic metabolic. 9. Volume overload, etiology secondary to chronic kidney disease, catheter leak. The patient be given diuretic challenge. Will monitor closely. 10. Diabetes. Continue Accu-Cheks and sliding scale. 11. Nutrition. Continue total parenteral nutrition. She has a GCF which is healing very slowly 12. Decubitus wound. Continue wound care. 13. Metabolic acidosis secondary to acute kidney injury. The patient's ABG shows appropriate compensation. Will continue to monitor. will transfer to TELE Subjective 24 Hr Interval Summary Free Text/Dictation SUBJECTIVE DATA: The patient remains critically ill. The patient is currently off pressor support. Blood pressures remain stable. Patient remains oligoanuric. No other events noted. No hemoptysis, hematemesis, hematochezia. s/ptwo units of packed red blood cells. vent settings and imaging studies were reviewed OBJECTIVE DATA: HEENT: Head is normocephalic. NECK: Supple. HEART: Regular rate. LUNGS: Diminished breath sounds at the base. ABDOMEN: Soft, nontender to palpation. Positive gastrocutaneous fistula. EXTREMITIES: Negative for clubbing, cyanosis. Positive edema. DERMATOLOGIC: No rashes. MUSCULOSKELETAL: No joint effusion. NEUROLOGIC: No change in exam. MEDICATIONS: Reviewed. Exam/Review of Systems Vital Signs Vitals Vital Signs Date Time Temp Pulse Resp B/P Pulse Ox O2 Delivery O2 Flow Rate FiO2 06/04/17 08:00 96.5 58 20 125/77 97 Mechanical Ventilator 06/04/17 07:35 30 Intake and Output 06/03/17 06/03/17 06/04/17 15:00 23:00 07:00 Intake Total 40 ml 325 ml Output Total 50 ml 170 ml Balance 40 ml 275 ml -170 ml Results Result Diagram: 06/04/17 0358 06/04/17 0358 Results 24 hrs Laboratory Tests Test 06/03/17 14:08 06/03/17 15:35 06/03/17 17:09 06/03/17 20:36 Bedside Glucose 98 131 120 Hemoglobin 10.2 #L Hematocrit 31.1 #L Test 06/04/17 01:04 06/04/17 03:58 06/04/17 05:01 06/04/17 05:27 Bedside Glucose 125 101 White Blood Count 3.8 L Red Blood Count 3.00 #L Hemoglobin 8.5 L Hematocrit 26.8 L Mean Corpuscular Volume 89.3 Mean Corpuscular Hemoglobin 28.3 L Mean Corpuscular Hemoglobin Concent 31.7 L Red Cell Distribution Width 20.0 H Platelet Count 90 L Mean Platelet Volume 10.5 H Neutrophils % 80.4 H Segmented Neutrophils % (Manual) 83 H Lymphocytes % 12.3 L Lymphocytes % (Manual) 14 L Monocytes % 6.0 Monocytes % (Manual) 3 Eosinophils % 0.3 Basophils % 0.0 Nucleated Red Blood Cells % 1 H Neutrophils # (Manual) Absolute Lymphocytes (Manual) 0.5 L Lymphocytes # 0.5 L Monocytes # 0.2 L Absolute Monocytes (Manual) 0.1 L Eosinophils # 0.0 Basophils # 0.0 Nucleated Red Blood Cells # 0.0 Thrombocytosis 1 H Platelet Estimate DECREASED Dimorphic Red Blood Cells 1+ Polychromasia 3+ Hypochromasia 1+ Anisocytosis 1+ Tear Drop Cells 1+ Sodium Level 132 L Potassium Level 3.8 Chloride Level 98 Carbon Dioxide Level 20 L Anion Gap 18 H Blood Urea Nitrogen 39 H Creatinine 2.51 H Glucose Level 290 #H Calcium Level 8.1 L Phosphorus Level 4.0 Magnesium Level 2.2 Prealbumin 18.2 Lab Scanned Report BLOOD TRANSFUSION Medications Medications Current Medications Atorvastatin Calcium (Lipitor) 10 mg QHS GTB Last administered on 05/19/17 21: 00; Admin Dose 10 MG; Start 05/06/17 at 21:00 Bisacodyl (Dulcolax Supp) 10 mg Q48H [place] Last administered on 06/03/17 17:34; Admin Dose 10 MG; Start 05/06/17 at 17:00 Carbidopa/Levodopa (Sinemet (25/ 100)) 1 tab TID GTB Last administered on 22:02; Admin Dose 1 TAB; Start 05/06/17 at 21:00 Donepezil HCl (Aricept) 10 mg QHS GTB Last administered on 05/19/17 21:00; Admin Dose 10 MG; Start 05/06/17 at 21:00 Ferrous Sulfate (Ferrous Sulfate (Ec)) 325 mg BID PO Last administered on 09:09; Admin Dose 325 MG; Start 05/06/17 at 21:00 Folic Acid (Folic Acid) 1 mg DAILY GTB Last administered on 05/22/17 09:09; Admin Dose 1 MG; Start 05/07/17 at 09:00 Lactobacillus Acidophilus/ Rhamnosus (Culturelle) 1 cap QHS GTB Last administered on 05/19/17 21:00; Admin Dose 1 CAP; Start 05/06/17 at 21:00 Magnesium Hydroxide (Milk Of Mag) 30 ml Q24H GTB Last administered on 05/22/17 16:38; Admin Dose 30 ML; Start 05/06/17 at 17:00 Memantine (Namenda) 5 mg QAM GTB Last administered on 05/22/17 09:10; Admin Dose 5 MG; Start 05/07/17 at 09:00 Multivit/Ca Carb/ B Cmplx/FA/Prenat (Radhika-John) 1 tab DAILY GTB Last administered on 05/22/17 09:09; Admin Dose 1 TAB; Start 05/07/17 at 09:00 Pramipexole (Mirapex) 0.5 mg DAILY GTB Last administered on 05/22/17 09:09; Admin Dose 0.5 MG; Start 05/07/17 at 09:00 Sodium Biphosphate/ Sodium Phosphate (Fleet Enema Pediatric) 118 ml Q72H PRN [place] CONSTIPATION; Start 05/06/17 at 17:00 Citric Acid/ Sodium Citrate (Bicitra) 30 ml BID PO Last administered on 09:09; Admin Dose 30 ML; Start 05/06/17 at 21:00 Nystatin (Nystatin Powder) 1 applic BID TOP Last administered on 06/03/17 20: 38; Admin Dose 1 APPLIC; Start 05/09/17 at 21:00 Collagenase (Santyl) 1 applic DAILY TOP Last administered on 06/03/17 08:57; Admin Dose 1 APPLIC; Start 05/09/17 at 15:00 Collagenase (Santyl) 1 applic PRN PRN TOP WOUND CARE; Start 05/09/17 at 14:00 Miscellaneous Information 1 ea NOTE XX ; Start 05/11/17 at 08:00 Glucose (Glutose) 15 gm Q15M PRN PO DECREASED GLUCOSE; Start 05/11/17 at 08:00 Glucose (Glutose) 22.5 gm Q15M PRN PO DECREASED GLUCOSE; Start 05/11/17 at 08: 00 Dextrose (D50w Syringe) 25 ml Q15M PRN IV DECREASED GLUCOSE Last administered on 05/28/17 00:53; Admin Dose 25 ML; Start 05/11/17 at 08:00 Dextrose (D50w Syringe) 50 ml Q15M PRN IV DECREASED GLUCOSE Last administered on 05/15/17 00:11; Admin Dose 50 ML; Start 05/11/17 at 08:00 Glucagon (Glucagen) 1 mg Q15M PRN IM DECREASED GLUCOSE; Start 05/11/17 at 08:00 Glucose (Glutose) 15 gm Q15M PRN BUCCAL DECREASED GLUCOSE; Start 05/11/17 at 08 :00 Epoetin Vasyl (Epogen (Esrd)) 10,000 units MoWeFr@17 SC Last administered on 17:35; Admin Dose 10,000 UNITS; Start 05/13/17 at 17:00 IV Flush (NS 10 ml) 10 ml PRN PRN IV IV PROTOCOL; Start 05/15/17 at 17:30 Amikacin Sulfate AMIKACIN PER PHARMACY NOTE XX ; Start 05/19/17 at 18:00 Cefepime HCl 0.5 gm/Sodium Chloride 100 ml @ 100 mls/hr Q24H IVPB Last administered on 06/03/17 20:03; Admin Dose 100 MLS/HR; Start 05/19/17 at 20:00 Amikacin Sulfate/ Sodium Chloride (Amikacin/NS) 101.4 ml @ 101.4 mls/ hr Q96H IVPB Last administered on 05/31/17 21:08; Admin Dose 101.4 MLS/HR; Start at 21:00 Midodrine (Proamatine) 10 mg TID@09,,17 GTB ; Start 05/23/17 at 09:00 Heparin Sodium (Porcine) (Heparin (5000 Units/0.5 ml)) 5,000 unit BID SC Last administered on 06/03/17 20:09; Admin Dose 5,000 UNIT; Start 05/23/17 at 09:00 Insulin Aspart NOVOLOG *MILD* ALGORI... Q4 SC Last administered on 06/01/17 21 :32; Admin Dose 1 UNIT; Start 05/26/17 at 09:00 Total Parenteral Nutrition 1,000 ml @ 40 mls/hr Q24H IV Last administered on 05:41; Admin Dose 40 MLS/HR; Start 05/27/17 at 14:00 Fat Emulsion Intravenous (Liposyn Ii 20%) 250 ml @ 31.25 mls/ hr Q24H IV Last administered on 06/03/17 11:21; Admin Dose 31.25 MLS/HR; Start 05/28/17 at 10:00 Famotidine 20 mg 20 mg DAILY IV Last administered on 06/03/17 08:56; Admin Dose 20 MG; Start 05/29/17 at 09:00 Sodium Chloride 1,000 ml @ 75 mls/hr [id number] IV Last administered on 02:04; Admin Dose 75 MLS/HR; Start 06/01/17 at 21:00 Trimethoprim/ Sulfamethoxazole/ Dextrose (Bactrim/D5W) 260 ml @ 173.333 mls/hr Q24H IVPB Last administered on 06/03/17 15:50; Admin Dose 173.333 MLS/HR; Start 06/03/17 at 14:00 Miscellaneous Information AMIKACIN TROUGH AT 2... ONCE ONCE XX ; Start at 20:00; Stop 06/04/17 at 20:01 Caspofungin/ Sodium Chloride (Cancidas/NS) 250 ml @ 250 mls/hr Q24H IVPB ; Start 06/04/17 at 15:30 Hydrocortisone (Solu-Cortef) 20 mg Q8 IV ; Start 06/04/17 at 14:00 DELIA FINE DO Jun 04, 2017 10:02
--- NOTE | 2017-06-04 10:13 | CONS ---
Date/Time of Note Date/Time of Note DATE: 06/04/17 TIME: 10:12 Consult Date/Type/Reason Admit Date/Time May 06, 2017 at 16:34 Initial Consult Date 05/10/17 Type of Consultation: Pulmonary Ordering Provider: OSMAR MONTAGUE DO Subjective Patient stable this morning continues mechanical ventilation. Improved hemodynamics. Objective Vital Signs Date Time Temp Pulse Resp B/P Pulse Ox O2 Delivery O2 Flow Rate FiO2 06/04/17 08:00 96.5 58 20 125/77 97 Mechanical Ventilator 06/04/17 07:35 30 Intake and Output 06/03/17 06/03/17 06/04/17 15:00 23:00 07:00 Intake Total 40 ml 325 ml Output Total 50 ml 170 ml Balance 40 ml 275 ml -170 ml Exam PHYSICAL EXAMINATION GENERAL: Elderly lady chronically ill-appearing on mechanical ventilation via tracheostomy VITAL SIGNS: see below. HEENT: Pupils equal, round, and reactive to light. Tracheostomy site clean and intact. CARDIAC: S1, S2, 2/6 systolic ejection murmur CHEST: Diminished air entry bilaterally. ABDOMEN: Mildly distended. Bowel sounds present no guarding or rebound EXTREMITIES: No cyanosis, clubbing edema +2 NEUROLOGIC: Generalized weakness Results/Medications Result Diagram: 06/04/17 0358 06/04/17 0358 Results 24 hrs Laboratory Tests Test 06/03/17 14:08 06/03/17 15:35 06/03/17 17:09 06/03/17 20:36 Bedside Glucose 98 131 120 Hemoglobin 10.2 #L Hematocrit 31.1 #L Test 06/04/17 01:04 06/04/17 03:58 06/04/17 05:01 06/04/17 05:27 Bedside Glucose 125 101 White Blood Count 3.8 L Red Blood Count 3.00 #L Hemoglobin 8.5 L Hematocrit 26.8 L Mean Corpuscular Volume 89.3 Mean Corpuscular Hemoglobin 28.3 L Mean Corpuscular Hemoglobin Concent 31.7 L Red Cell Distribution Width 20.0 H Platelet Count 90 L Mean Platelet Volume 10.5 H Neutrophils % 80.4 H Segmented Neutrophils % (Manual) 83 H Lymphocytes % 12.3 L Lymphocytes % (Manual) 14 L Monocytes % 6.0 Monocytes % (Manual) 3 Eosinophils % 0.3 Basophils % 0.0 Nucleated Red Blood Cells % 1 H Neutrophils # (Manual) Absolute Lymphocytes (Manual) 0.5 L Lymphocytes # 0.5 L Monocytes # 0.2 L Absolute Monocytes (Manual) 0.1 L Eosinophils # 0.0 Basophils # 0.0 Nucleated Red Blood Cells # 0.0 Thrombocytosis 1 H Platelet Estimate DECREASED Dimorphic Red Blood Cells 1+ Polychromasia 3+ Hypochromasia 1+ Anisocytosis 1+ Tear Drop Cells 1+ Sodium Level 132 L Potassium Level 3.8 Chloride Level 98 Carbon Dioxide Level 20 L Anion Gap 18 H Blood Urea Nitrogen 39 H Creatinine 2.51 H Glucose Level 290 #H Calcium Level 8.1 L Phosphorus Level 4.0 Magnesium Level 2.2 Prealbumin 18.2 Lab Scanned Report BLOOD TRANSFUSION Medications Current Medications Atorvastatin Calcium (Lipitor) 10 mg QHS GTB Last administered on 05/19/17 21: 00; Admin Dose 10 MG; Start 05/06/17 at 21:00 Bisacodyl (Dulcolax Supp) 10 mg Q48H DC Last administered on 06/03/17 17:34; Admin Dose 10 MG; Start 05/06/17 at 17:00 Carbidopa/Levodopa (Sinemet (25/ 100)) 1 tab TID GTB Last administered on 22:02; Admin Dose 1 TAB; Start 05/06/17 at 21:00 Donepezil HCl (Aricept) 10 mg QHS GTB Last administered on 05/19/17 21:00; Admin Dose 10 MG; Start 05/06/17 at 21:00 Ferrous Sulfate (Ferrous Sulfate (Ec)) 325 mg BID PO Last administered on 09:09; Admin Dose 325 MG; Start 05/06/17 at 21:00 Folic Acid (Folic Acid) 1 mg DAILY GTB Last administered on 05/22/17 09:09; Admin Dose 1 MG; Start 05/07/17 at 09:00 Lactobacillus Acidophilus/ Rhamnosus (Culturelle) 1 cap QHS GTB Last administered on 05/19/17 21:00; Admin Dose 1 CAP; Start 05/06/17 at 21:00 Magnesium Hydroxide (Milk Of Mag) 30 ml Q24H GTB Last administered on 05/22/17 16:38; Admin Dose 30 ML; Start 05/06/17 at 17:00 Memantine (Namenda) 5 mg QAM GTB Last administered on 05/22/17 09:10; Admin Dose 5 MG; Start 05/07/17 at 09:00 Multivit/Ca Carb/ B Cmplx/FA/Prenat (Radhika-John) 1 tab DAILY GTB Last administered on 05/22/17 09:09; Admin Dose 1 TAB; Start 05/07/17 at 09:00 Pramipexole (Mirapex) 0.5 mg DAILY GTB Last administered on 05/22/17 09:09; Admin Dose 0.5 MG; Start 05/07/17 at 09:00 Sodium Biphosphate/ Sodium Phosphate (Fleet Enema Pediatric) 118 ml Q72H PRN DC CONSTIPATION; Start 05/06/17 at 17:00 Citric Acid/ Sodium Citrate (Bicitra) 30 ml BID PO Last administered on 09:09; Admin Dose 30 ML; Start 05/06/17 at 21:00 Nystatin (Nystatin Powder) 1 applic BID TOP Last administered on 06/04/17 09: 58; Admin Dose 1 APPLIC; Start 05/09/17 at 21:00 Collagenase (Santyl) 1 applic DAILY TOP Last administered on 06/04/17 09:59; Admin Dose 1 APPLIC; Start 05/09/17 at 15:00 Collagenase (Santyl) 1 applic PRN PRN TOP WOUND CARE; Start 05/09/17 at 14:00 Miscellaneous Information 1 ea NOTE XX ; Start 05/11/17 at 08:00 Glucose (Glutose) 15 gm Q15M PRN PO DECREASED GLUCOSE; Start 05/11/17 at 08:00 Glucose (Glutose) 22.5 gm Q15M PRN PO DECREASED GLUCOSE; Start 05/11/17 at 08: 00 Dextrose (D50w Syringe) 25 ml Q15M PRN IV DECREASED GLUCOSE Last administered on 05/28/17 00:53; Admin Dose 25 ML; Start 05/11/17 at 08:00 Dextrose (D50w Syringe) 50 ml Q15M PRN IV DECREASED GLUCOSE Last administered on 05/15/17 00:11; Admin Dose 50 ML; Start 05/11/17 at 08:00 Glucagon (Glucagen) 1 mg Q15M PRN IM DECREASED GLUCOSE; Start 05/11/17 at 08:00 Glucose (Glutose) 15 gm Q15M PRN BUCCAL DECREASED GLUCOSE; Start 05/11/17 at 08 :00 Epoetin Vasyl (Epogen (Esrd)) 10,000 units MoWeFr@17 SC Last administered on 17:35; Admin Dose 10,000 UNITS; Start 05/13/17 at 17:00 IV Flush (NS 10 ml) 10 ml PRN PRN IV IV PROTOCOL; Start 05/15/17 at 17:30 Amikacin Sulfate AMIKACIN PER PHARMACY NOTE XX ; Start 05/19/17 at 18:00 Cefepime HCl 0.5 gm/Sodium Chloride 100 ml @ 100 mls/hr Q24H IVPB Last administered on 06/03/17 20:03; Admin Dose 100 MLS/HR; Start 05/19/17 at 20:00 Amikacin Sulfate/ Sodium Chloride (Amikacin/NS) 101.4 ml @ 101.4 mls/ hr Q96H IVPB Last administered on 05/31/17 21:08; Admin Dose 101.4 MLS/HR; Start at 21:00 Midodrine (Proamatine) 10 mg TID@,,17 GTB ; Start 05/23/17 at 09:00 Heparin Sodium (Porcine) (Heparin (5000 Units/0.5 ml)) 5,000 unit BID SC Last administered on 06/04/17 09:58; Admin Dose 5,000 UNIT; Start 05/23/17 at 09:00 Insulin Aspart NOVOLOG *MILD* ALGORI... Q4 SC Last administered on 06/01/17 21 :32; Admin Dose 1 UNIT; Start 05/26/17 at 09:00 Total Parenteral Nutrition 1,000 ml @ 40 mls/hr Q24H IV Last administered on 05:41; Admin Dose 40 MLS/HR; Start 05/27/17 at 14:00 Fat Emulsion Intravenous (Liposyn Ii 20%) 250 ml @ 31.25 mls/ hr Q24H IV Last administered on 06/03/17 11:21; Admin Dose 31.25 MLS/HR; Start 05/28/17 at 10:00 Famotidine 20 mg 20 mg DAILY IV Last administered on 06/04/17 09:57; Admin Dose 20 MG; Start 05/29/17 at 09:00 Sodium Chloride 1,000 ml @ 75 mls/hr [id number] IV Last administered on 02:04; Admin Dose 75 MLS/HR; Start 06/01/17 at 21:00 Trimethoprim/ Sulfamethoxazole/ Dextrose (Bactrim/D5W) 260 ml @ 173.333 mls/hr Q24H IVPB Last administered on 06/03/17 15:50; Admin Dose 173.333 MLS/HR; Start 06/03/17 at 14:00 Miscellaneous Information AMIKACIN TROUGH AT 2... ONCE ONCE XX ; Start at 20:00; Stop 06/04/17 at 20:01 Caspofungin/ Sodium Chloride (Cancidas/NS) 250 ml @ 250 mls/hr Q24H IVPB ; Start 06/04/17 at 15:30 Hydrocortisone (Solu-Cortef) 20 mg Q8 IV ; Start 06/04/17 at 14:00 Assessment/Plan Chief Complaint/Hosp Course Additional Assessment/Plan IMP: 1. Status post septic shock now off vasopressors. 2. VDRF 3. Possible healthcare associated pneumonia 4. Cellulitis 5. Urosepsis 6. Encephalopathy chronic, vegetative state 7. STARLA 8. Anemia likely multifactorial. 9. Hyponatremia improved. RECS: 1. Monitor H&H 2. Vent support 3. Palliative Care consultation. Bioethics recs. 4. TF's/Free H20 5. dvt prophylaxis 6. Slowly taper hydrocortisone 7. Status post transfusion packed red blood cells. Very poor prognosis. Transfer to telemetry. Problems: JARED CLAIRE MD, [facility] Jun 04, 2017 10:13
[2017-06-04] MEDS: FAT EMULSION 20% 250 ML IV SCH (11:47)
--- NOTE | 2017-06-04 12:47 | PN ---
Date/Time of Note Date/Time of Note DATE: 06/04/17 TIME: 12:43 Assessment/Plan Lines/Catheters IV Catheter Type (from Nrs): PICC Line Collazo in Place (from Nrs): Yes Assessment/Plan Chief Complaint/Hosp Course 1. G-tube dislodgement: replaced with gjtube by GI, continued yellow drainage peristomal; gj tube replacement attempt-unable due to too large of an opening; Now chemical code; currently on tpn; transferred back to icu from floor; off on pressors -hospice/palliative is likely the best option for this patient -possible surgical placement of jtube when medically stable-off pressors 2. Septic shock: multifactorial: 2/2: pneumonia + cellulitis + wounds; persistent, off pressors again, bradycardic -abx -supportive 3. Respiratory failure with trach: PNA with pulm edema; comfortable on vent; mod sputum -pulmonary toilet -abx -supportive 4.STRALA with CKD; anuric currently -judicious fluids -renally dose meds -per nephrology 5. Normocytic anemia: previous coffee ground drainage peristoma;no acute bleed noted; h/h critically low, s/p transfusion, drop again in h/h -monitor and transfuse as needed 6. CHF -medical management 7. Diabetes with hypoglycemia -medical management 8. Acute encephalopathy with history of advanced dementia; unchanged neurologically -supportive 9. Decubitus wound. -continue wound care. 10. Peristomal cellulitis 2/2 #1; +pseudomonas: improving with drainage to ostomy bag -local care -abx per sensitivity 11. Pancytopenia: improving 12. Hyponatremia: -medical management Patient seen and examined in collaboration with Dr. Meliton Blackburn. Thank you. Problems: Subjective 24 Hr Interval Summary Off pressors, bradycardic. Min output from gcf. Neurologically unchanged. No fevers, chills, sz, diarrhea, vomiting. On TPN. comfortable on vent. Exam/Review of Systems Vital Signs Vitals Vital Signs Date Time Temp Pulse Resp B/P Pulse Ox O2 Delivery O2 Flow Rate FiO2 06/04/17 12:00 96.8 Mechanical Ventilator 06/04/17 11:00 60 15 98 06/04/17 08:00 30 Intake and Output 06/03/17 06/03/17 06/04/17 15:00 23:00 07:00 Intake Total 40 ml 325 ml Output Total 50 ml 170 ml Balance 40 ml 275 ml -170 ml Exam Free Text/Dictation Constitutional: non-verbal, awake, nonresponsive, ill-appearing No oriented Psych: confusion, withdraws from pain Head: atraumatic, normocephalic Eyes: nl sclera ENMT: mucosa pink and moist, missing teeth Neck: non-tender, other (trach), supple Respiratory: diminished Cardiovascular: edema Gastrointestinal: distended (mod), other (stoma with min yellow drainage to ostomy bag), soft, nontender Musculoskeletal: No muscle tone Extremities: edema worsened Neurological: No nl mental status, No nl speech Skin: other (abdominal/peristomal/breast fold redness, moisture damage/ cellulitis improved) Results Result Diagram: 06/04/17 0358 06/04/17 0358 SHADI CALDERON NP Jun 04, 2017 12:47
--- NOTE | 2017-06-04 13:48 | PN ---
DATE: 06/04/2017 SUBJECTIVE DATA: No events overnight. The patient is hypothermic off dopamine drip. Looks comfortable. She is noncommunicative and nonverbal. VITAL SIGNS: Temperature 96.6 8, pulse 60, respirations 15, blood pressure 122/59, saturation 98 percent. LABORATORY AND DIAGNOSTIC DATA: WBC 3.8, H and H 8.5, 26.8, platelets 90, neutrophils 80.4. BUN 39, creatinine 2.51. MICROBIOLOGY: Urine culture repeated yesterday pending. blood cultures repeated pending. INDWELLINGS: Trach, PICC line, Collazo catheter. ANTIMICROBIALS: Bactrim, Cancidas, amikacin and cefepime. OBJECTIVE DATA: GENERAL: This is a fragile, chronically ill-appearing, elderly woman, who is lying comfortably in bed. HEENT: Head atraumatic, normocephalic. Sclerae anicteric. Buccal mucosa dry. NECK: Obese. Tracheostomy present. RESPIRATORY: Chest rise symmetrical, breath sounds diminished at bases. ABDOMEN: Obese, soft, bowel sounds hypoactive. Some drainage around the G-tube site present. EXTREMITIES: With bilateral edema. SKIN: Generalized edema, anasarca and erythema. ASSESSMENT: 1. Ongoing sepsis with shock. 2. Healthcare-associated pneumonia. 3. [id number] renal failure. 4. Chronic respiratory failure. 5. Gastrostomy tube malfunction. 6. Diabetes. 7. Chronic encephalopathy. PLAN: Patient remains unchanged, stable off pressors. Pending repeat blood cultures. Urine cultures so far negative. She is currently on Solu-Cortef, enteric antifungal coverage was added. We will continue her on current regimen. Dictated By: Ryder Murillo NP /junie/rajesh /Document#: [id number]
--- NOTE | 2017-06-04 14:12 | CONS ---
Date/Time of Note Date/Time of Note DATE: 06/04/17 TIME: 14:10 Consult Date/Type/Reason Admit Date/Time May 06, 2017 at 16:34 Initial Consult Date 05/22/17 Type of Consultation: CARDIOLOGY Ordering Provider: OSMAR ROSAS DO Subjective CARDIOLOGY FOLLOW UP NOTE: Discussed with staff and rhythm was reviewed. Pt remains in NSR. no more Afib d/w Dr Rosas pt remains in NSR. NO AFIB seen pt remains NONVERBAL. pt is still ICU but remains OFF OF dopamine drip now pt is on TPN now. OBJECTIVE: General: no acute distress. s/p trach on vent. HEENT: NC/AT. NECK: NO JVD. no stridor. S/P trach on vent CV: RRR. systolic murmur; no gallop or rubs. PULM: no wheezing anteriorly GI: SOFT, NT, ND, no rebound or guarding s/p dressing at the site of previous G tube Extremity: + B/L LE and UE edema. no clubbing. neuro: opens her eyes to painful stimuli. does not follow commands Psych: calm rectal: deferred Objective Vital Signs Date Time Temp Pulse Resp B/P Pulse Ox O2 Delivery O2 Flow Rate FiO2 06/04/17 13:00 62 16 100 30 06/04/17 12:00 96.8 Mechanical Ventilator Intake and Output 06/03/17 06/03/17 06/04/17 15:00 23:00 07:00 Intake Total 40 ml 325 ml 115 ml Output Total 50 ml 170 ml Balance 40 ml 275 ml -55 ml Results/Medications Result Diagram: 06/04/17 0358 06/04/17 0358 Results 24 hrs Laboratory Tests Test 06/03/17 15:35 06/03/17 17:09 06/03/17 20:36 06/04/17 01:04 Hemoglobin 10.2 #L Hematocrit 31.1 #L Bedside Glucose 131 120 125 Test 06/04/17 03:58 06/04/17 05:01 06/04/17 05:27 06/04/17 10:07 White Blood Count 3.8 L Red Blood Count 3.00 #L Hemoglobin 8.5 L Hematocrit 26.8 L Mean Corpuscular Volume 89.3 Mean Corpuscular Hemoglobin 28.3 L Mean Corpuscular Hemoglobin Concent 31.7 L Red Cell Distribution Width 20.0 H Platelet Count 90 L Mean Platelet Volume 10.5 H Neutrophils % 80.4 H Segmented Neutrophils % (Manual) 83 H Lymphocytes % 12.3 L Lymphocytes % (Manual) 14 L Monocytes % 6.0 Monocytes % (Manual) 3 Eosinophils % 0.3 Basophils % 0.0 Nucleated Red Blood Cells % 1 H Neutrophils # (Manual) Absolute Lymphocytes (Manual) 0.5 L Lymphocytes # 0.5 L Monocytes # 0.2 L Absolute Monocytes (Manual) 0.1 L Eosinophils # 0.0 Basophils # 0.0 Nucleated Red Blood Cells # 0.0 Thrombocytosis 1 H Platelet Estimate DECREASED Dimorphic Red Blood Cells 1+ Polychromasia 3+ Hypochromasia 1+ Anisocytosis 1+ Tear Drop Cells 1+ Sodium Level 132 L Potassium Level 3.8 Chloride Level 98 Carbon Dioxide Level 20 L Anion Gap 18 H Blood Urea Nitrogen 39 H Creatinine 2.51 H Glucose Level 290 #H Calcium Level 8.1 L Phosphorus Level 4.0 Magnesium Level 2.2 Prealbumin 18.2 Lab Scanned Report BLOOD TRANSFUSION Bedside Glucose 101 110 Medications Current Medications Atorvastatin Calcium (Lipitor) 10 mg QHS GTB Last administered on 05/19/17 21: 00; Admin Dose 10 MG; Start 05/06/17 at 21:00 Bisacodyl (Dulcolax Supp) 10 mg Q48H MA Last administered on 06/03/17 17:34; Admin Dose 10 MG; Start 05/06/17 at 17:00 Carbidopa/Levodopa (Sinemet (25/ 100)) 1 tab TID GTB Last administered on 22:02; Admin Dose 1 TAB; Start 05/06/17 at 21:00 Donepezil HCl (Aricept) 10 mg QHS GTB Last administered on 05/19/17 21:00; Admin Dose 10 MG; Start 05/06/17 at 21:00 Ferrous Sulfate (Ferrous Sulfate (Ec)) 325 mg BID PO Last administered on 09:09; Admin Dose 325 MG; Start 05/06/17 at 21:00 Folic Acid (Folic Acid) 1 mg DAILY GTB Last administered on 05/22/17 09:09; Admin Dose 1 MG; Start 05/07/17 at 09:00 Lactobacillus Acidophilus/ Rhamnosus (Culturelle) 1 cap QHS GTB Last administered on 05/19/17 21:00; Admin Dose 1 CAP; Start 05/06/17 at 21:00 Magnesium Hydroxide (Milk Of Mag) 30 ml Q24H GTB Last administered on 05/22/17 16:38; Admin Dose 30 ML; Start 05/06/17 at 17:00 Memantine (Namenda) 5 mg QAM GTB Last administered on 05/22/17 09:10; Admin Dose 5 MG; Start 05/07/17 at 09:00 Multivit/Ca Carb/ B Cmplx/FA/Prenat (Radhika-John) 1 tab DAILY GTB Last administered on 05/22/17 09:09; Admin Dose 1 TAB; Start 05/07/17 at 09:00 Pramipexole (Mirapex) 0.5 mg DAILY GTB Last administered on 05/22/17 09:09; Admin Dose 0.5 MG; Start 05/07/17 at 09:00 Sodium Biphosphate/ Sodium Phosphate (Fleet Enema Pediatric) 118 ml Q72H PRN MA CONSTIPATION; Start 05/06/17 at 17:00 Citric Acid/ Sodium Citrate (Bicitra) 30 ml BID PO Last administered on 09:09; Admin Dose 30 ML; Start 05/06/17 at 21:00 Nystatin (Nystatin Powder) 1 applic BID TOP Last administered on 06/04/17 09: 58; Admin Dose 1 APPLIC; Start 05/09/17 at 21:00 Collagenase (Santyl) 1 applic DAILY TOP Last administered on 06/04/17 09:59; Admin Dose 1 APPLIC; Start 05/09/17 at 15:00 Collagenase (Santyl) 1 applic PRN PRN TOP WOUND CARE; Start 05/09/17 at 14:00 Miscellaneous Information 1 ea NOTE XX ; Start 05/11/17 at 08:00 Glucose (Glutose) 15 gm Q15M PRN PO DECREASED GLUCOSE; Start 05/11/17 at 08:00 Glucose (Glutose) 22.5 gm Q15M PRN PO DECREASED GLUCOSE; Start 05/11/17 at 08: 00 Dextrose (D50w Syringe) 25 ml Q15M PRN IV DECREASED GLUCOSE Last administered on 05/28/17 00:53; Admin Dose 25 ML; Start 05/11/17 at 08:00 Dextrose (D50w Syringe) 50 ml Q15M PRN IV DECREASED GLUCOSE Last administered on 05/15/17 00:11; Admin Dose 50 ML; Start 05/11/17 at 08:00 Glucagon (Glucagen) 1 mg Q15M PRN IM DECREASED GLUCOSE; Start 05/11/17 at 08:00 Glucose (Glutose) 15 gm Q15M PRN BUCCAL DECREASED GLUCOSE; Start 05/11/17 at 08 :00 Epoetin Vasyl (Epogen (Esrd)) 10,000 units MoWeFr@17 SC Last administered on 17:35; Admin Dose 10,000 UNITS; Start 05/13/17 at 17:00 IV Flush (NS 10 ml) 10 ml PRN PRN IV IV PROTOCOL; Start 05/15/17 at 17:30 Amikacin Sulfate AMIKACIN PER PHARMACY NOTE XX ; Start 05/19/17 at 18:00 Amikacin Sulfate/ Sodium Chloride (Amikacin/NS) 101.4 ml @ 101.4 mls/ hr Q96H IVPB Last administered on 05/31/17 21:08; Admin Dose 101.4 MLS/HR; Start at 21:00 Midodrine (Proamatine) 10 mg TID@,,17 GTB ; Start 05/23/17 at 09:00 Heparin Sodium (Porcine) (Heparin (5000 Units/0.5 ml)) 5,000 unit BID SC Last administered on 06/04/17 09:58; Admin Dose 5,000 UNIT; Start 05/23/17 at 09:00 Insulin Aspart NOVOLOG *MILD* ALGORI... Q4 SC Last administered on 06/01/17 21 :32; Admin Dose 1 UNIT; Start 05/26/17 at 09:00 Total Parenteral Nutrition 1,000 ml @ 40 mls/hr Q24H IV Last administered on 05:41; Admin Dose 40 MLS/HR; Start 05/27/17 at 14:00 Fat Emulsion Intravenous (Liposyn Ii 20%) 250 ml @ 31.25 mls/ hr Q24H IV Last administered on 06/04/17 11:47; Admin Dose 31.25 MLS/HR; Start 05/28/17 at 10:00 Famotidine 20 mg 20 mg DAILY IV Last administered on 06/04/17 09:57; Admin Dose 20 MG; Start 05/29/17 at 09:00 Sodium Chloride 1,000 ml @ 75 mls/hr [id number] IV Last administered on 02:04; Admin Dose 75 MLS/HR; Start 06/01/17 at 21:00 Trimethoprim/ Sulfamethoxazole/ Dextrose (Bactrim/D5W) 260 ml @ 173.333 mls/hr Q24H IVPB Last administered on 06/03/17 15:50; Admin Dose 173.333 MLS/HR; Start 06/03/17 at 14:00 Miscellaneous Information AMIKACIN TROUGH AT 2... ONCE ONCE XX ; Start at 20:00; Stop 06/04/17 at 20:01 Caspofungin/ Sodium Chloride (Cancidas/NS) 250 ml @ 250 mls/hr Q24H IVPB ; Start 06/04/17 at 15:30 Hydrocortisone (Solu-Cortef) 20 mg Q8 IV ; Start 06/04/17 at 14:00 Assessment/Plan Chief Complaint/Hosp Course 1. hypoxemic resp failure: s/p trach 2. Pafib; currently in NSR 3. hx HTN: 4. encephalopathy 5. renal failure: f/u with nephrology 6. dysphagia 7. G tube malfunction/ infection: unable to repair by GI. 8. GI bleed 9. severe anemia 10. malnutrition 11. anasarca and fluid overload. cont resp care nutritional support. correct lytes prn off of PLAVIX DUE TO ANEMIA/ BLEEDING. pt is also NPO and unable to take po meds. F/U with GI and surgery rec. nutritional support. CODE STATUS IS chemical code only now. THANK YOU. Problems: MILAGROS MUNOZ MD Jun 04, 2017 14:12
[2017-06-04] MEDS: TRIMETHOPRIM/SULFAMETHOXAZOLE 10 ML in DEXTROSE 5% 250 ML IVPB SCH (14:52)
[2017-06-04] MEDS: CASPOFUNGIN 50 MG in SOD CHLORIDE 0.9% 250 ML IVPB SCH (16:36)
[2017-06-04] MEDS: MAGNESIUM HYDROXIDE 30ML CUP GTB SCH (16:44)
[2017-06-04] MEDS: ATORVASTATIN 10 MG TAB GTB SCH (21:00)
[2017-06-04] MEDS: LACTOBACILLUS RHAMNOSUS CAP GTB SCH (21:00)
[2017-06-04] MEDS: DONEPEZIL 10 MG TAB GTB SCH (21:00)
[2017-06-04] MEDS: AMIKACIN 350 MG in SOD CHLORIDE 0.9% 100 ML IVPB SCH (22:04)
[2017-06-05] VITALS (24 sets, daily range): BP systolic 117–141; BP diastolic 54–74; PULSE 50–68; RESP 16–20
[2017-06-05] MEDS: INSULIN ASPART [NOVOLOG] 3 ML PEN SC SCH ×6 (00:38→21:00)
[2017-06-05] MEDS: SOD CHLORIDE 0.9% 1,000 ML IV SCH ×2 (05:00→08:39)
[2017-06-05] MEDS: HYDROCORTISONE 100 MG INJ IV SCH ×3 (05:30→22:26)
[2017-06-05] MEDS: FOLIC ACID 1 MG TAB GTB SCH (08:05)
[2017-06-05] MEDS: MIDODRINE 5 MG TAB GTB SCH ×3 (08:06→14:21)
[2017-06-05] MEDS: CARBIDOPA/LEVODOPA (25/100) TAB GTB SCH ×3 (08:06→21:00)
[2017-06-05] MEDS: MULTIVIT/CA CARB/B CMPLX/FA TAB GTB SCH (08:06)
[2017-06-05] MEDS: PRAMIPEXOLE 0.25 MG TAB GTB SCH (08:06)
[2017-06-05] MEDS: MEMANTINE 5 MG TAB GTB SCH (08:06)
[2017-06-05] MEDS: FERROUS SULFATE (EC) 325 MG TAB PO SCH ×2 (08:07→21:00)
[2017-06-05] MEDS: CITRIC ACID/NA CITRATE 30 ML CUP PO SCH ×2 (08:07→21:00)
[2017-06-05] MEDS: NYSTATIN 30 GM POWDER BTL TOP SCH ×2 (08:38→21:50)
[2017-06-05] MEDS: FAT EMULSION 20% 250 ML IV SCH (08:38)
[2017-06-05] MEDS: COLLAGENASE 30 GM TUBE TOP SCH (08:39)
[2017-06-05] MEDS: FAMOTIDINE 20 MG INJ IV SCH (08:39)
[2017-06-05] MEDS: TPN 1,000 ML IV SCH (08:40)
[2017-06-05] MEDS: HEPARIN 5,000 UNIT/0.5 ML VIAL SC SCH ×2 (08:41→21:52)
--- NOTE | 2017-06-05 09:00 | CONS ---
Date/Time of Note Date/Time of Note DATE: 06/05/17 TIME: 08:59 Consult Date/Type/Reason Admit Date/Time May 06, 2017 at 16:34 Initial Consult Date 05/22/17 Type of Consultation: CARDIOLOGY Ordering Provider: OSMAR ROSAS DO Subjective CARDIOLOGY FOLLOW UP NOTE: Discussed with staff and rhythm was reviewed. Pt remains in NSR. no more Afib d/w Dr Rosas pt remains in NSR. NO AFIB seen pt remains NONVERBAL. pt is out of ICU now. pt is on TPN now. OBJECTIVE: General: no acute distress. s/p trach on vent. HEENT: NC/AT. NECK: NO JVD. no stridor. S/P trach on vent CV: RRR. systolic murmur; no gallop or rubs. PULM: no wheezing anteriorly GI: SOFT, NT, ND, no rebound or guarding s/p dressing at the site of previous G tube Extremity: + B/L LE and UE edema. no clubbing. neuro: opens her eyes to painful stimuli. does not follow commands Psych: calm rectal: deferred Objective Vital Signs Date Time Temp Pulse Resp B/P Pulse Ox O2 Delivery O2 Flow Rate FiO2 06/05/17 08:31 57 06/05/17 07:31 97.4 18 139/73 100 06/05/17 07:25 30 06/04/17 18:00 Mechanical Ventilator Intake and Output 06/04/17 06/04/17 06/05/17 15:00 23:00 07:00 Intake Total 973.75 ml 952.50 ml 1019.4 ml Output Total 110 ml 55 ml 175 ml Balance 863.75 ml 897.50 ml 844.4 ml Results/Medications Result Diagram: 06/04/17 0358 06/04/17 0358 Results 24 hrs Laboratory Tests Test 06/04/17 10:07 06/04/17 14:54 06/04/17 21:28 06/05/17 00:38 Bedside Glucose 110 105 103 106 Test 06/05/17 05:21 06/05/17 07:40 Bedside Glucose 114 108 Medications Current Medications Atorvastatin Calcium (Lipitor) 10 mg QHS GTB Last administered on 05/19/17t 21: 00; Admin Dose 10 MG; Start 05/06/17 at 21:00 Bisacodyl (Dulcolax Supp) 10 mg Q48H [place] Last administered on 06/03/17 17:34; Admin Dose 10 MG; Start 05/06/17 at 17:00 Carbidopa/Levodopa (Sinemet (25/ 100)) 1 tab TID GTB Last administered on 22:02; Admin Dose 1 TAB; Start 05/06/17 at 21:00 Donepezil HCl (Aricept) 10 mg QHS GTB Last administered on 05/19/17 21:00; Admin Dose 10 MG; Start 05/06/17 at 21:00 Ferrous Sulfate (Ferrous Sulfate (Ec)) 325 mg BID PO Last administered on 09:09; Admin Dose 325 MG; Start 05/06/17 at 21:00 Folic Acid (Folic Acid) 1 mg DAILY GTB Last administered on 05/22/17 09:09; Admin Dose 1 MG; Start 05/07/17 at 09:00 Lactobacillus Acidophilus/ Rhamnosus (Culturelle) 1 cap QHS GTB Last administered on 05/19/17 21:00; Admin Dose 1 CAP; Start 05/06/17 at 21:00 Magnesium Hydroxide (Milk Of Mag) 30 ml Q24H GTB Last administered on 05/22/17 16:38; Admin Dose 30 ML; Start 05/06/17 at 17:00 Memantine (Namenda) 5 mg QAM GTB Last administered on 05/22/17 09:10; Admin Dose 5 MG; Start 05/07/17 at 09:00 Multivit/Ca Carb/ B Cmplx/FA/Prenat (Radhika-John) 1 tab DAILY GTB Last administered on 05/22/17 09:09; Admin Dose 1 TAB; Start 05/07/17 at 09:00 Pramipexole (Mirapex) 0.5 mg DAILY GTB Last administered on 05/22/17 09:09; Admin Dose 0.5 MG; Start 05/07/17 at 09:00 Sodium Biphosphate/ Sodium Phosphate (Fleet Enema Pediatric) 118 ml Q72H PRN [place] CONSTIPATION; Start 05/06/17 at 17:00 Citric Acid/ Sodium Citrate (Bicitra) 30 ml BID PO Last administered on 09:09; Admin Dose 30 ML; Start 05/06/17 at 21:00 Nystatin (Nystatin Powder) 1 applic BID TOP Last administered on 06/05/17 08: 38; Admin Dose 1 APPLIC; Start 05/09/17 at 21:00 Collagenase (Santyl) 1 applic DAILY TOP Last administered on 06/05/17 08:39; Admin Dose 1 APPLIC; Start 05/09/17 at 15:00 Collagenase (Santyl) 1 applic PRN PRN TOP WOUND CARE; Start 05/09/17 at 14:00 Miscellaneous Information 1 ea NOTE XX ; Start 05/11/17 at 08:00 Glucose (Glutose) 15 gm Q15M PRN PO DECREASED GLUCOSE; Start 05/11/17 at 08:00 Glucose (Glutose) 22.5 gm Q15M PRN PO DECREASED GLUCOSE; Start 05/11/17 at 08: 00 Dextrose (D50w Syringe) 25 ml Q15M PRN IV DECREASED GLUCOSE Last administered on 05/28/17 00:53; Admin Dose 25 ML; Start 05/11/17 at 08:00 Dextrose (D50w Syringe) 50 ml Q15M PRN IV DECREASED GLUCOSE Last administered on 05/15/17 00:11; Admin Dose 50 ML; Start 05/11/17 at 08:00 Glucagon (Glucagen) 1 mg Q15M PRN IM DECREASED GLUCOSE; Start 05/11/17 at 08:00 Glucose (Glutose) 15 gm Q15M PRN BUCCAL DECREASED GLUCOSE; Start 05/11/17 at 08 :00 Epoetin Vasyl (Epogen (Esrd)) 10,000 units MoWeFr@17 SC Last administered on 17:35; Admin Dose 10,000 UNITS; Start 05/13/17 at 17:00 IV Flush (NS 10 ml) 10 ml PRN PRN IV IV PROTOCOL; Start 05/15/17 at 17:30 Amikacin Sulfate AMIKACIN PER PHARMACY NOTE XX ; Start 05/19/17 at 18:00 Amikacin Sulfate/ Sodium Chloride (Amikacin/NS) 101.4 ml @ 101.4 mls/ hr Q96H IVPB Last administered on 06/04/17 22:04; Admin Dose 101.4 MLS/HR; Start at 21:00 Midodrine (Proamatine) 10 mg TID@09,,17 GTB ; Start 05/23/17 at 09:00 Heparin Sodium (Porcine) (Heparin (5000 Units/0.5 ml)) 5,000 unit BID SC Last administered on 06/05/17 08:41; Admin Dose 5,000 UNIT; Start 05/23/17 at 09:00 Insulin Aspart NOVOLOG *MILD* ALGORI... Q4 SC Last administered on 06/01/17 21 :32; Admin Dose 1 UNIT; Start 05/26/17 at 09:00 Total Parenteral Nutrition 1,000 ml @ 40 mls/hr Q24H IV Last administered on 08:40; Admin Dose 40 MLS/HR; Start 05/27/17 at 14:00 Fat Emulsion Intravenous (Liposyn Ii 20%) 250 ml @ 31.25 mls/ hr Q24H IV Last administered on 06/05/17 08:38; Admin Dose 31.25 MLS/HR; Start 05/28/17 at 10:00 Famotidine 20 mg 20 mg DAILY IV Last administered on 06/05/17 08:39; Admin Dose 20 MG; Start 05/29/17 at 09:00 Sodium Chloride 1,000 ml @ 75 mls/hr [id number] IV Last administered on 08:39; Admin Dose 75 MLS/HR; Start 06/01/17 at 21:00 Trimethoprim/ Sulfamethoxazole 10 ml/Dextrose 260 ml @ 173.333 mls/hr Q24H IVPB Last administered on 06/04/17 14:52; Admin Dose 173.333 MLS/HR; Start at 14:00 Caspofungin/ Sodium Chloride (Cancidas/NS) 250 ml @ 250 mls/hr Q24H IVPB Last administered on 06/04/17 16:36; Admin Dose 250 MLS/HR; Start 06/04/17 at 15:30 Hydrocortisone (Solu-Cortef) 20 mg Q8 IV Last administered on 06/05/17 05:30; Admin Dose 20 MG; Start 06/04/17 at 14:00 Assessment/Plan Chief Complaint/Hosp Course 1. hypoxemic resp failure: s/p trach 2. Pafib; currently in NSR 3. hx HTN: 4. encephalopathy 5. renal failure: f/u with nephrology 6. dysphagia 7. G tube malfunction/ infection: unable to repair by GI. 8. GI bleed 9. severe anemia 10. malnutrition 11. anasarca and fluid overload. cont resp care nutritional support. correct lytes prn off of PLAVIX DUE TO ANEMIA/ BLEEDING. pt is also NPO and unable to take po meds. F/U with GI and surgery rec. nutritional support. CODE STATUS IS chemical code only now. THANK YOU. Problems: MILAGROS MUNOZ MD Jun 05, 2017 09:00
--- NOTE | 2017-06-05 10:33 | PN ---
Date/Time of Note Date/Time of Note DATE: 06/05/17 TIME: 10:32 Assessment/Plan VTE Prophylaxis VTE Prophylaxis Intervention: other Lines/Catheters IV Catheter Type (from Nrsg): PICC Line Central line still needed: Yes Urinary Cath still in place: Yes Reason Cath still needed: urinary retention Assessment/Plan Chief Complaint/Hosp Course 1. Septic shock, etiology is multifactorial. The patient has currently been weaned off pressors. Will continue current treatment plan. Antibiotics, continue IV fluids. Continue to monitor. 2. Anemia. s/p transfusion 3. Questionable adrenal insufficiency. The patient was placed on stress steroids, now being tapered off. Appreciate endocrine evaluation. 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 Follow up with General Surgery. 5. Oligoanuric acute kidney injury on top of chronic kidney disease stage IV. Etiology secondary to ATN, septic and septic acute kidney injury. Plan is to give diuretic challenge. dialysis is futile in this patient 6. Ventilatory-dependent respiratory failure. Vent settings reviewed. ABGs reviewed. Continue to monitor. 7. Hyponatremia, etiology secondary to acute kidney injury in conjunction with hypotonic fluids. The patient's sodium levels have slowly been improving. Continue to monitor. 8. Acute encephalopathy and advanced dementia, etiology toxic metabolic. 9. Volume overload, etiology secondary to chronic kidney disease, catheter leak. The patient be given diuretic challenge. Will monitor closely. 10. Diabetes. Continue Accu-Cheks and sliding scale. 11. Nutrition. Continue total parenteral nutrition. She has a GCF which is healing very slowly 12. Decubitus wound. Continue wound care. 13. Metabolic acidosis secondary to acute kidney injury. The patient's ABG shows appropriate compensation. Will continue to monitor. SUBJECTIVE DATA: The patient remains critically ill. The patient is currently off pressor support. Blood pressures remain stable. Patient remains oligoanuric. No other events noted. No hemoptysis, hematemesis, hematochezia. s/ptwo units of packed red blood cells. vent settings and imaging studies were reviewed OBJECTIVE DATA: HEENT: Head is normocephalic. NECK: Supple. HEART: Regular rate. LUNGS: Diminished breath sounds at the base. ABDOMEN: Soft, nontender to palpation. Positive gastrocutaneous fistula. EXTREMITIES: Negative for clubbing, cyanosis. Positive edema. DERMATOLOGIC: No rashes. MUSCULOSKELETAL: No joint effusion. NEUROLOGIC: No change in exam. MEDICATIONS: Reviewed. Problems: Exam/Review of Systems Vital Signs Vitals Vital Signs Date Time Temp Pulse Resp B/P Pulse Ox O2 Delivery O2 Flow Rate FiO2 06/05/17 10:11 50 06/05/17 09:24 16 99 30 06/05/17 07:31 97.4 139/73 06/04/17 18:00 Mechanical Ventilator Intake and Output 06/04/17 06/04/17 06/05/17 15:00 23:00 07:00 Intake Total 973.75 ml 952.50 ml 1019.4 ml Output Total 110 ml 55 ml 175 ml Balance 863.75 ml 897.50 ml 844.4 ml Results Result Diagram: 06/04/17 0358 06/04/17 0358 Results 24 hrs Laboratory Tests Test 06/04/17 14:54 06/04/17 21:28 06/05/17 00:38 06/05/17 05:21 Bedside Glucose 105 103 106 114 Test 06/05/17 07:40 Bedside Glucose 108 Medications Medications Current Medications Atorvastatin Calcium (Lipitor) 10 mg QHS GTB Last administered on 05/19/17 21: 00; Admin Dose 10 MG; Start 05/06/17 at 21:00 Bisacodyl (Dulcolax Supp) 10 mg Q48H [place] Last administered on 06/03/17 17:34; Admin Dose 10 MG; Start 05/06/17 at 17:00 Carbidopa/Levodopa (Sinemet (25/ 100)) 1 tab TID GTB Last administered on 22:02; Admin Dose 1 TAB; Start 05/06/17 at 21:00 Donepezil HCl (Aricept) 10 mg QHS GTB Last administered on 05/19/17 21:00; Admin Dose 10 MG; Start 05/06/17 at 21:00 Ferrous Sulfate (Ferrous Sulfate (Ec)) 325 mg BID PO Last administered on 09:09; Admin Dose 325 MG; Start 05/06/17 at 21:00 Folic Acid (Folic Acid) 1 mg DAILY GTB Last administered on 05/22/17 09:09; Admin Dose 1 MG; Start 05/07/17 at 09:00 Lactobacillus Acidophilus/ Rhamnosus (Culturelle) 1 cap QHS GTB Last administered on 05/19/17 21:00; Admin Dose 1 CAP; Start 05/06/17 at 21:00 Magnesium Hydroxide (Milk Of Mag) 30 ml Q24H GTB Last administered on 05/22/17 16:38; Admin Dose 30 ML; Start 05/06/17 at 17:00 Memantine (Namenda) 5 mg QAM GTB Last administered on 05/22/17 09:10; Admin Dose 5 MG; Start 05/07/17 at 09:00 Multivit/Ca Carb/ B Cmplx/FA/Prenat (Radhika-John) 1 tab DAILY GTB Last administered on 05/22/17 09:09; Admin Dose 1 TAB; Start 05/07/17 at 09:00 Pramipexole (Mirapex) 0.5 mg DAILY GTB Last administered on 05/22/17 09:09; Admin Dose 0.5 MG; Start 05/07/17 at 09:00 Sodium Biphosphate/ Sodium Phosphate (Fleet Enema Pediatric) 118 ml Q72H PRN [place] CONSTIPATION; Start 05/06/17 at 17:00 Citric Acid/ Sodium Citrate (Bicitra) 30 ml BID PO Last administered on 09:09; Admin Dose 30 ML; Start 05/06/17 at 21:00 Nystatin (Nystatin Powder) 1 applic BID TOP Last administered on 06/05/17 08: 38; Admin Dose 1 APPLIC; Start 05/09/17 at 21:00 Collagenase (Santyl) 1 applic DAILY TOP Last administered on 06/05/17 08:39; Admin Dose 1 APPLIC; Start 05/09/17 at 15:00 Collagenase (Santyl) 1 applic PRN PRN TOP WOUND CARE; Start 05/09/17 at 14:00 Miscellaneous Information 1 ea NOTE XX ; Start 05/11/17 at 08:00 Glucose (Glutose) 15 gm Q15M PRN PO DECREASED GLUCOSE; Start 05/11/17 at 08:00 Glucose (Glutose) 22.5 gm Q15M PRN PO DECREASED GLUCOSE; Start 05/11/17 at 08: 00 Dextrose (D50w Syringe) 25 ml Q15M PRN IV DECREASED GLUCOSE Last administered on 05/28/17 00:53; Admin Dose 25 ML; Start 05/11/17 at 08:00 Dextrose (D50w Syringe) 50 ml Q15M PRN IV DECREASED GLUCOSE Last administered on 05/15/17 00:11; Admin Dose 50 ML; Start 05/11/17 at 08:00 Glucagon (Glucagen) 1 mg Q15M PRN IM DECREASED GLUCOSE; Start 05/11/17 at 08:00 Glucose (Glutose) 15 gm Q15M PRN BUCCAL DECREASED GLUCOSE; Start 05/11/17 at 08 :00 Epoetin Vasyl (Epogen (Esrd)) 10,000 units MoWeFr@17 SC Last administered on 17:35; Admin Dose 10,000 UNITS; Start 05/13/17 at 17:00 IV Flush (NS 10 ml) 10 ml PRN PRN IV IV PROTOCOL; Start 05/15/17 at 17:30 Amikacin Sulfate AMIKACIN PER PHARMACY NOTE XX ; Start 05/19/17 at 18:00 Amikacin Sulfate/ Sodium Chloride (Amikacin/NS) 101.4 ml @ 101.4 mls/ hr Q96H IVPB Last administered on 06/04/17 22:04; Admin Dose 101.4 MLS/HR; Start at 21:00 Midodrine (Proamatine) 10 mg TID@,,17 GTB ; Start 05/23/17 at 09:00 Heparin Sodium (Porcine) (Heparin (5000 Units/0.5 ml)) 5,000 unit BID SC Last administered on 06/05/17 08:41; Admin Dose 5,000 UNIT; Start 05/23/17 at 09:00 Insulin Aspart NOVOLOG *MILD* ALGORI... Q4 SC Last administered on 06/01/17 21 :32; Admin Dose 1 UNIT; Start 05/26/17 at 09:00 Total Parenteral Nutrition 1,000 ml @ 40 mls/hr Q24H IV Last administered on 08:40; Admin Dose 40 MLS/HR; Start 05/27/17 at 14:00 Fat Emulsion Intravenous (Liposyn Ii 20%) 250 ml @ 31.25 mls/ hr Q24H IV Last administered on 06/05/17 08:38; Admin Dose 31.25 MLS/HR; Start 05/28/17 at 10:00 Famotidine 20 mg 20 mg DAILY IV Last administered on 06/05/17 08:39; Admin Dose 20 MG; Start 05/29/17 at 09:00 Sodium Chloride 1,000 ml @ 75 mls/hr [id number] IV Last administered on 08:39; Admin Dose 75 MLS/HR; Start 06/01/17 at 21:00 Trimethoprim/ Sulfamethoxazole 10 ml/Dextrose 260 ml @ 173.333 mls/hr Q24H IVPB Last administered on 06/04/17 14:52; Admin Dose 173.333 MLS/HR; Start at 14:00 Caspofungin/ Sodium Chloride (Cancidas/NS) 250 ml @ 250 mls/hr Q24H IVPB Last administered on 06/04/17 16:36; Admin Dose 250 MLS/HR; Start 06/04/17 at 15:30 Hydrocortisone (Solu-Cortef) 20 mg Q8 IV Last administered on 06/05/17 05:30; Admin Dose 20 MG; Start 06/04/17 at 14:00 DELIA FINE DO Jun 05, 2017 10:33
--- NOTE | 2017-06-05 11:38 | CONS ---
Date/Time of Note Date/Time of Note DATE: 06/05/17 TIME: 11:38 Consult Date/Type/Reason Admit Date/Time May 06, 2017 at 16:34 Initial Consult Date 05/10/17 Type of Consultation: Pulmonary Ordering Provider: OSMAR MONTAGUE DO Subjective No changes. Objective Vital Signs Date Time Temp Pulse Resp B/P Pulse Ox O2 Delivery O2 Flow Rate FiO2 06/05/17 10:11 50 06/05/17 09:24 16 99 30 06/05/17 07:31 97.4 139/73 06/04/17 18:00 Mechanical Ventilator Intake and Output 06/04/17 06/04/17 06/05/17 14:59 22:59 06:59 Intake Total 1013.75 ml 1027.50 ml 1019.4 ml Output Total 130 ml 55 ml 175 ml Balance 883.75 ml 972.50 ml 844.4 ml Exam PHYSICAL EXAMINATION GENERAL: Elderly lady chronically ill-appearing on mechanical ventilation via tracheostomy VITAL SIGNS: see below. HEENT: Pupils equal, round, and reactive to light. Tracheostomy site clean and intact. CARDIAC: S1, S2, 2/6 systolic ejection murmur CHEST: Diminished air entry bilaterally. ABDOMEN: Mildly distended. Bowel sounds present no guarding or rebound EXTREMITIES: No cyanosis, clubbing edema +2 NEUROLOGIC: Generalized weakness Results/Medications Result Diagram: 06/04/17 0358 06/04/17 0358 Results 24 hrs Laboratory Tests Test 06/04/17 14:54 06/04/17 21:28 06/05/17 00:38 06/05/17 05:21 Bedside Glucose 105 103 106 114 Test 06/05/17 07:40 Bedside Glucose 108 Medications Current Medications Atorvastatin Calcium (Lipitor) 10 mg QHS GTB Last administered on 05/19/17 21: 00; Admin Dose 10 MG; Start 05/06/17 at 21:00 Bisacodyl (Dulcolax Supp) 10 mg Q48H [place] Last administered on 06/03/17 17:34; Admin Dose 10 MG; Start 05/06/17 at 17:00 Carbidopa/Levodopa (Sinemet (25/ 100)) 1 tab TID GTB Last administered on 22:02; Admin Dose 1 TAB; Start 05/06/17 at 21:00 Donepezil HCl (Aricept) 10 mg QHS GTB Last administered on 05/19/17 21:00; Admin Dose 10 MG; Start 05/06/17 at 21:00 Ferrous Sulfate (Ferrous Sulfate (Ec)) 325 mg BID PO Last administered on 09:09; Admin Dose 325 MG; Start 05/06/17 at 21:00 Folic Acid (Folic Acid) 1 mg DAILY GTB Last administered on 05/22/17 09:09; Admin Dose 1 MG; Start 05/07/17 at 09:00 Lactobacillus Acidophilus/ Rhamnosus (Culturelle) 1 cap QHS GTB Last administered on 05/19/17 21:00; Admin Dose 1 CAP; Start 05/06/17 at 21:00 Magnesium Hydroxide (Milk Of Mag) 30 ml Q24H GTB Last administered on 05/22/17 16:38; Admin Dose 30 ML; Start 05/06/17 at 17:00 Memantine (Namenda) 5 mg QAM GTB Last administered on 05/22/17 09:10; Admin Dose 5 MG; Start 05/07/17 at 09:00 Multivit/Ca Carb/ B Cmplx/FA/Prenat (Radhika-John) 1 tab DAILY GTB Last administered on 05/22/17 09:09; Admin Dose 1 TAB; Start 05/07/17 at 09:00 Pramipexole (Mirapex) 0.5 mg DAILY GTB Last administered on 05/22/17 09:09; Admin Dose 0.5 MG; Start 05/07/17 at 09:00 Sodium Biphosphate/ Sodium Phosphate (Fleet Enema Pediatric) 118 ml Q72H PRN [place] CONSTIPATION; Start 05/06/17 at 17:00 Citric Acid/ Sodium Citrate (Bicitra) 30 ml BID PO Last administered on 09:09; Admin Dose 30 ML; Start 05/06/17 at 21:00 Nystatin (Nystatin Powder) 1 applic BID TOP Last administered on 06/05/17 08: 38; Admin Dose 1 APPLIC; Start 05/09/17 at 21:00 Collagenase (Santyl) 1 applic DAILY TOP Last administered on 06/05/17 08:39; Admin Dose 1 APPLIC; Start 05/09/17 at 15:00 Collagenase (Santyl) 1 applic PRN PRN TOP WOUND CARE; Start 05/09/17 at 14:00 Miscellaneous Information 1 ea NOTE XX ; Start 05/11/17 at 08:00 Glucose (Glutose) 15 gm Q15M PRN PO DECREASED GLUCOSE; Start 05/11/17 at 08:00 Glucose (Glutose) 22.5 gm Q15M PRN PO DECREASED GLUCOSE; Start 05/11/17 at 08: 00 Dextrose (D50w Syringe) 25 ml Q15M PRN IV DECREASED GLUCOSE Last administered on 05/28/17 00:53; Admin Dose 25 ML; Start 05/11/17 at 08:00 Dextrose (D50w Syringe) 50 ml Q15M PRN IV DECREASED GLUCOSE Last administered on 05/15/17 00:11; Admin Dose 50 ML; Start 05/11/17 at 08:00 Glucagon (Glucagen) 1 mg Q15M PRN IM DECREASED GLUCOSE; Start 05/11/17 at 08:00 Glucose (Glutose) 15 gm Q15M PRN BUCCAL DECREASED GLUCOSE; Start 05/11/17 at 08 :00 Epoetin Vasyl (Epogen (Esrd)) 10,000 units MoWeFr@17 SC Last administered on 17:35; Admin Dose 10,000 UNITS; Start 05/13/17 at 17:00 IV Flush (NS 10 ml) 10 ml PRN PRN IV IV PROTOCOL; Start 05/15/17 at 17:30 Amikacin Sulfate AMIKACIN PER PHARMACY NOTE XX ; Start 05/19/17 at 18:00 Amikacin Sulfate/ Sodium Chloride (Amikacin/NS) 101.4 ml @ 101.4 mls/ hr Q96H IVPB Last administered on 06/04/17 22:04; Admin Dose 101.4 MLS/HR; Start at 21:00 Midodrine (Proamatine) 10 mg TID@,, GTB ; Start 05/23/17 at 09:00 Heparin Sodium (Porcine) (Heparin (5000 Units/0.5 ml)) 5,000 unit BID SC Last administered on 06/05/17 08:41; Admin Dose 5,000 UNIT; Start 05/23/17 at 09:00 Insulin Aspart NOVOLOG *MILD* ALGORI... Q4 SC Last administered on 06/01/17 21 :32; Admin Dose 1 UNIT; Start 05/26/17 at 09:00 Total Parenteral Nutrition 1,000 ml @ 40 mls/hr Q24H IV Last administered on 08:40; Admin Dose 40 MLS/HR; Start 05/27/17 at 14:00 Fat Emulsion Intravenous (Liposyn Ii 20%) 250 ml @ 31.25 mls/ hr Q24H IV Last administered on 06/05/17 08:38; Admin Dose 31.25 MLS/HR; Start 05/28/17 at 10:00 Famotidine 20 mg 20 mg DAILY IV Last administered on 06/05/17 08:39; Admin Dose 20 MG; Start 05/29/17 at 09:00 Sodium Chloride 1,000 ml @ 75 mls/hr [id number] IV Last administered on 08:39; Admin Dose 75 MLS/HR; Start 06/01/17 at 21:00 Trimethoprim/ Sulfamethoxazole 10 ml/Dextrose 260 ml @ 173.333 mls/hr Q24H IVPB Last administered on 06/04/17 14:52; Admin Dose 173.333 MLS/HR; Start at 14:00 Caspofungin/ Sodium Chloride (Cancidas/NS) 250 ml @ 250 mls/hr Q24H IVPB Last administered on 06/04/17 16:36; Admin Dose 250 MLS/HR; Start 06/04/17 at 15:30 Hydrocortisone (Solu-Cortef) 20 mg Q8 IV Last administered on 06/05/17 05:30; Admin Dose 20 MG; Start 06/04/17 at 14:00 Assessment/Plan Chief Complaint/Hosp Course Additional Assessment/Plan IMP: 1. Status post septic shock now off vasopressors. 2. VDRF 3. Possible healthcare associated pneumonia 4. Cellulitis 5. Urosepsis 6. Encephalopathy chronic, vegetative state 7. STARLA 8. Anemia likely multifactorial. 9. Hyponatremia improved. RECS: 1. Monitor H&H 2. Vent support 3. Palliative Care consultation. Bioethics recs. 4. TF's/Free H20 5. dvt prophylaxis 6. Slowly taper hydrocortisone 7. Status post transfusion packed red blood cells. Consider transfer [facility] to [facility] facility. Problems: JARED CLAIRE MD, [facility] Jun 05, 2017 11:38
[2017-06-05] MEDS: TRIMETHOPRIM/SULFAMETHOXAZOLE 10 ML in DEXTROSE 5% 250 ML IVPB SCH (14:20)
[2017-06-05] MEDS: MAGNESIUM HYDROXIDE 30ML CUP GTB SCH (14:21)
[2017-06-05] MEDS: CASPOFUNGIN 50 MG in SOD CHLORIDE 0.9% 250 ML IVPB SCH (16:23)
[2017-06-05] MEDS: BISACODYL 10 MG SUPP PR SCH (16:23)
[2017-06-05] MEDS: EPOETIN 10000 UNITS/1 ML INJ (ESRD) SC SCH (16:43)
--- NOTE | 2017-06-05 19:56 | CONS ---
Date/Time of Note Date/Time of Note DATE: 06/05/17 TIME: 19:55 Assessment/Plan Assessment/Plan Chief Complaint/Hosp Course This 69-year-old female with a history of CVA vent dependent respiratory failure , was brought to the emergency room for the dislodgment of the GJ tube. Patient is nonverbal and no information can be obtained. No GI bleeding no chest pain no shortness of breath. Problems: Additional Assessment/Plan Additional Assessment/Plan 1. Dislodged GJ tube accidentally 2. Vent dependent respiratory failure 3. Chronic encephalopathy 4. Renal failure 5. Peripheral vascular disease 6. Anemia, secondary to chronic disease no evidence of active bleeding 7. Large gastrocutaneous fistula, endoscopically it is not possible to keep the largest diameter GJ tube in place 8. Hypotension, corrected patient is off dopamine for more than 24 hours 9. Decubitus ulcer 10. Workup for adrenal insufficiency, patient is on steroid now and off dopamine Plan Continue all supportive care Surgery to fix the gastrocutaneous fistula once patient is off dopamine Blood transfusion Monitor for acute overt GI bleeding Consultation Date/Type/Reason Admit Date/Time May 06, 2017 at 16:34 Type of Consultation: Pulmonary Referring Provider: OSMAR MONTAGUE DO 24 HR Interval Summary Subjective hx not possible: pt non-verbal, pt critical Exam/Review of Systems Vital Signs Vitals Vital Signs Date Time Temp Pulse Resp B/P Pulse Ox O2 Delivery O2 Flow Rate FiO2 06/05/17 17:17 60 17 99 30 06/05/17 15:31 94.0 139/74 06/04/17 18:00 Mechanical Ventilator Intake and Output 06/04/17 06/04/17 06/05/17 15:00 23:00 07:00 Intake Total 973.75 ml 952.50 ml 1019.4 ml Output Total 110 ml 55 ml 175 ml Balance 863.75 ml 897.50 ml 844.4 ml Exam Respiratory: other (Patient is on vent) Cardiovascular: nl pulses, regular rate and rhythm Gastrointestinal: nl liver, spleen, non-tender, other (The size of the gastrocutaneous fistula stoma is reducing), soft Extremities: normal pulses Neurological: unresponsive Results Result Diagram: 06/04/17 0358 06/04/17 0358 Results 24 hrs Laboratory Tests Test 06/04/17 20:07 06/04/17 21:28 06/05/17 00:38 06/05/17 05:21 Amikacin Level Trough Bedside Glucose 103 106 114 Test 06/05/17 07:40 06/05/17 11:44 06/05/17 12:05 06/05/17 16:29 Bedside Glucose 108 110 172 Lab Scanned Report REFERENCE LAB Test 06/05/17 16:31 Bedside Glucose 140 Medications Medications Current Medications Atorvastatin Calcium (Lipitor) 10 mg QHS GTB Last administered on 05/19/17 21: 00; Admin Dose 10 MG; Start 05/06/17 at 21:00 Bisacodyl (Dulcolax Supp) 10 mg Q48H [place] Last administered on 06/05/17 16:23; Admin Dose 10 MG; Start 05/06/17 at 17:00 Carbidopa/Levodopa (Sinemet (25/ 100)) 1 tab TID GTB Last administered on 22:02; Admin Dose 1 TAB; Start 05/06/17 at 21:00 Donepezil HCl (Aricept) 10 mg QHS GTB Last administered on 05/19/17 21:00; Admin Dose 10 MG; Start 05/06/17 at 21:00 Ferrous Sulfate (Ferrous Sulfate (Ec)) 325 mg BID PO Last administered on 09:09; Admin Dose 325 MG; Start 05/06/17 at 21:00 Folic Acid (Folic Acid) 1 mg DAILY GTB Last administered on 05/22/17 09:09; Admin Dose 1 MG; Start 05/07/17 at 09:00 Lactobacillus Acidophilus/ Rhamnosus (Culturelle) 1 cap QHS GTB Last administered on 05/19/17 21:00; Admin Dose 1 CAP; Start 05/06/17 at 21:00 Magnesium Hydroxide (Milk Of Mag) 30 ml Q24H GTB Last administered on 05/22/17 16:38; Admin Dose 30 ML; Start 05/06/17 at 17:00 Memantine (Namenda) 5 mg QAM GTB Last administered on 05/22/17 09:10; Admin Dose 5 MG; Start 05/07/17 at 09:00 Multivit/Ca Carb/ B Cmplx/FA/Prenat (Radhika-John) 1 tab DAILY GTB Last administered on 05/22/17 09:09; Admin Dose 1 TAB; Start 05/07/17 at 09:00 Pramipexole (Mirapex) 0.5 mg DAILY GTB Last administered on 05/22/17 09:09; Admin Dose 0.5 MG; Start 05/07/17 at 09:00 Sodium Biphosphate/ Sodium Phosphate (Fleet Enema Pediatric) 118 ml Q72H PRN [place] CONSTIPATION; Start 05/06/17 at 17:00 Citric Acid/ Sodium Citrate (Bicitra) 30 ml BID PO Last administered on 09:09; Admin Dose 30 ML; Start 05/06/17 at 21:00 Nystatin (Nystatin Powder) 1 applic BID TOP Last administered on 06/05/17 08: 38; Admin Dose 1 APPLIC; Start 05/09/17 at 21:00 Collagenase (Santyl) 1 applic DAILY TOP Last administered on 06/05/17 08:39; Admin Dose 1 APPLIC; Start 05/09/17 at 15:00 Collagenase (Santyl) 1 applic PRN PRN TOP WOUND CARE; Start 05/09/17 at 14:00 Miscellaneous Information 1 ea NOTE XX ; Start 05/11/17 at 08:00 Glucose (Glutose) 15 gm Q15M PRN PO DECREASED GLUCOSE; Start 05/11/17 at 08:00 Glucose (Glutose) 22.5 gm Q15M PRN PO DECREASED GLUCOSE; Start 05/11/17 at 08: 00 Dextrose (D50w Syringe) 25 ml Q15M PRN IV DECREASED GLUCOSE Last administered on 05/28/17 00:53; Admin Dose 25 ML; Start 05/11/17 at 08:00 Dextrose (D50w Syringe) 50 ml Q15M PRN IV DECREASED GLUCOSE Last administered on 05/15/17 00:11; Admin Dose 50 ML; Start 05/11/17 at 08:00 Glucagon (Glucagen) 1 mg Q15M PRN IM DECREASED GLUCOSE; Start 05/11/17 at 08:00 Glucose (Glutose) 15 gm Q15M PRN BUCCAL DECREASED GLUCOSE; Start 05/11/17 at 08 :00 Epoetin Vasyl (Epogen (Esrd)) 10,000 units MoWeFr@17 SC Last administered on 16:43; Admin Dose 10,000 UNITS; Start 05/13/17 at 17:00 IV Flush (NS 10 ml) 10 ml PRN PRN IV IV PROTOCOL; Start 05/15/17 at 17:30 Midodrine (Proamatine) 10 mg TID@,, GTB ; Start 05/23/17 at 09:00 Heparin Sodium (Porcine) (Heparin (5000 Units/0.5 ml)) 5,000 unit BID SC Last administered on 06/05/17 08:41; Admin Dose 5,000 UNIT; Start 05/23/17 at 09:00 Insulin Aspart NOVOLOG *MILD* ALGORI... Q4 SC Last administered on 06/01/17 21 :32; Admin Dose 1 UNIT; Start 05/26/17 at 09:00 Total Parenteral Nutrition 1,000 ml @ 40 mls/hr Q24H IV Last administered on 08:40; Admin Dose 40 MLS/HR; Start 05/27/17 at 14:00 Fat Emulsion Intravenous (Liposyn Ii 20%) 250 ml @ 31.25 mls/ hr Q24H IV Last administered on 06/05/17 08:38; Admin Dose 31.25 MLS/HR; Start 05/28/17 at 10:00 Famotidine 20 mg 20 mg DAILY IV Last administered on 06/05/17 08:39; Admin Dose 20 MG; Start 05/29/17 at 09:00 Sodium Chloride 1,000 ml @ 75 mls/hr [id number] IV Last administered on 08:39; Admin Dose 75 MLS/HR; Start 06/01/17 at 21:00 Caspofungin/ Sodium Chloride (Cancidas/NS) 250 ml @ 250 mls/hr Q24H IVPB Last administered on 06/05/17 16:23; Admin Dose 250 MLS/HR; Start 06/04/17 at 15:30 Hydrocortisone (Solu-Cortef) 20 mg Q8 IV Last administered on 06/05/17 12:57; Admin Dose 20 MG; Start 06/04/17 at 14:00 SYLWIA SY MD Jun 05, 2017 19:56
[2017-06-05] MEDS: LACTOBACILLUS RHAMNOSUS CAP GTB SCH (21:00)
[2017-06-05] MEDS: ATORVASTATIN 10 MG TAB GTB SCH (21:00)
[2017-06-05] MEDS: DONEPEZIL 10 MG TAB GTB SCH (21:00)
--- NOTE | 2017-06-05 22:53 | PN ---
Date/Time of Note Date/Time of Note DATE: 06/05/17 TIME: 22:48 Assessment/Plan Lines/Catheters IV Catheter Type (from Nrsg): PICC Line Collazo in Place (from Nrsg): Yes Assessment/Plan Chief Complaint/Hosp Course 1. G-tube dislodgement: replaced with gjtube by GI, continued yellow drainage peristomal; gj tube replacement attempt-unable due to too large of an opening; Now chemical code; currently on tpn; out of icu -hospice/palliative is the best option for this patient -possible surgical placement of jtube if medically stable 2. Septic shock: multifactorial: 2/2: pneumonia + cellulitis + wounds; persistent, off pressors again, hypothermic -abx -supportive 3. Respiratory failure with trach: PNA with pulm edema; comfortable on vent; mod sputum -pulmonary toilet -abx -supportive 4.STARLA with CKD; anuric currently -judicious fluids -renally dose meds -per nephrology 5. Normocytic anemia: previous coffee ground drainage peristoma;no acute bleed noted; h/h critically low, s/p transfusion -monitor and transfuse as needed 6. CHF -medical management 7. Diabetes with hypoglycemia -medical management 8. Acute encephalopathy with history of advanced dementia; unchanged neurologically -supportive 9. Decubitus wound. -continue wound care. 10. Peristomal cellulitis 2/2 #1; +pseudomonas: improving with drainage to ostomy bag -local care 11. Pancytopenia: improving Patient seen and examined in collaboration with Dr. Meliton Blackburn. Thank you. Problems: Subjective 24 Hr Interval Summary No neurological changes. Hypothermic. Appears comfortable. Non-verbal indicators of pain not present. min/mod drainage from [facility]. Exam/Review of Systems Vital Signs Vitals Vital Signs Date Time Temp Pulse Resp B/P Pulse Ox O2 Delivery O2 Flow Rate FiO2 06/05/17 20:32 95.9 69 16 129/64 99 06/05/17 20:14 30 06/04/17 18:00 Mechanical Ventilator Intake and Output 06/04/17 06/04/17 06/05/17 15:00 23:00 07:00 Intake Total 973.75 ml 952.50 ml 1019.4 ml Output Total 110 ml 55 ml 175 ml Balance 863.75 ml 897.50 ml 844.4 ml Exam Free Text/Dictation Constitutional: non-verbal, awake, nonresponsive, ill-appearing No oriented Psych: confusion, withdraws from pain Head: atraumatic, normocephalic Eyes: nl sclera ENMT: mucosa pink and moist, missing teeth Neck: non-tender, other (trach), supple Respiratory: diminished Cardiovascular: edema Gastrointestinal: distended (mod), other (stoma with min yellow/green drainage to ostomy bag), soft, nontender Musculoskeletal: No muscle tone Extremities: edema worsened Neurological: No nl mental status, No nl speech Skin: other (abdominal/peristomal/breast fold redness) Results Result Diagram: 06/04/17 0358 06/04/17 0358 SHADI CALDERON NP Jun 05, 2017 22:53
[2017-06-06] VITALS (24 sets, daily range): BP systolic 116–160; BP diastolic 57–86; PULSE 45–61; RESP 16–22
[2017-06-06] MEDS: INSULIN ASPART [NOVOLOG] 3 ML PEN SC SCH ×6 (01:00→21:00)
[2017-06-06] MEDS: HYDROCORTISONE 100 MG INJ IV SCH ×3 (05:22→21:45)
[2017-06-06 07:27] LABS: ABNORMAL IP MESSAGE 1; EOSINOPHILS # 0.1 10^3/ul (0.0-0.5); EOSINOPHILS % 1.3 % (0.0-7.0); HEMATOCRIT 31.3 % (37.0-47.0); LYMPHOCYTES # 0.6 10^3/ul (0.8-2.9); LYMPHOCYTES % 10.9 % (15.0-51.0); MEAN CORPUSCULAR HEMOGLOBIN 29.2 pg (29.0-33.0); MEAN CORPUSCULAR HGB CONC 31.9 g/dl (32.0-37.0); MEAN CORPUSCULAR VOLUME 91.3 fl (82.0-101.0); MEAN PLATELET VOLUME 10.3 fl (7.4-10.4); MONOCYTE # 0.3 10^3/ul (0.3-0.9); MONOCYTES % 5.8 % (0.0-11.0); NEUTROPHILS % 81.4 % (39.0-77.0); RED BLOOD COUNT 3.43 10^6/ul (4.20-5.40); WHITE BLOOD COUNT 5.3 10^3/ul (4.8-10.8)
[2017-06-06 07:28] LABS: PLATELET COUNT 113 10^3/UL (140-415); POSITIVE DIFF @See below
[2017-06-06 07:52] LABS: CALCIUM 8.5 mg/dl (8.4-10.2); CREATININE 2.39 mg/dl (0.44-1.00); MAGNESIUM 2.2 mg/dl (1.7-2.5); PHOSPHORUS 4.4 mg/dl (2.5-4.9); POTASSIUM 3.2 mmol/L (3.5-5.1)
[2017-06-06 07:59] LABS: PREALBUMIN 21.3 mg/dl (17.6-36.0)
[2017-06-06] MEDS: SOD CHLORIDE 0.9% 1,000 ML IV SCH ×2 (08:00→21:00)
[2017-06-06] MEDS: PRAMIPEXOLE 0.25 MG TAB GTB SCH (08:57)
[2017-06-06] MEDS: FOLIC ACID 1 MG TAB GTB SCH (08:57)
[2017-06-06] MEDS: MEMANTINE 5 MG TAB GTB SCH (08:57)
[2017-06-06] MEDS: MULTIVIT/CA CARB/B CMPLX/FA TAB GTB SCH (08:58)
[2017-06-06] MEDS: MIDODRINE 5 MG TAB GTB SCH ×3 (08:58→17:00)
[2017-06-06] MEDS: CITRIC ACID/NA CITRATE 30 ML CUP PO SCH ×2 (08:58→21:00)
[2017-06-06] MEDS: CARBIDOPA/LEVODOPA (25/100) TAB GTB SCH ×3 (08:58→21:00)
[2017-06-06] MEDS: FERROUS SULFATE (EC) 325 MG TAB PO SCH ×2 (08:59→21:00)
[2017-06-06] MEDS: COLLAGENASE 30 GM TUBE TOP SCH (09:22)
[2017-06-06] MEDS: FAMOTIDINE 20 MG INJ IV SCH (09:22)
[2017-06-06] MEDS: NYSTATIN 30 GM POWDER BTL TOP SCH ×2 (09:22→21:22)
[2017-06-06] MEDS: HEPARIN 5,000 UNIT/0.5 ML VIAL SC SCH ×2 (09:30→21:46)
[2017-06-06] MEDS: FAT EMULSION 20% 250 ML IV SCH (09:34)
--- NOTE | 2017-06-06 09:52 | CONS ---
Date/Time of Note Date/Time of Note DATE: 06/06/17 TIME: 09:51 Consult Date/Type/Reason Admit Date/Time May 06, 2017 at 16:34 Initial Consult Date 05/22/17 Type of Consultation: CARDIOLOGY Ordering Provider: OSMAR MONTAGUE DO Subjective CARDIOLOGY FOLLOW UP NOTE: Discussed with staff and rhythm was reviewed. Pt remains in NSR. no more Afib pt remains in NSR. NO AFIB seen pt remains NONVERBAL. pt is TELE now pt is on TPN now. OBJECTIVE: General: no acute distress. s/p trach on vent. HEENT: NC/AT. NECK: NO JVD. no stridor. S/P trach on vent CV: RRR. systolic murmur; no gallop or rubs. PULM: no wheezing anteriorly GI: SOFT, NT, ND, no rebound or guarding s/p dressing at the site of previous G tube Extremity: + B/L LE and UE edema. no clubbing. neuro: opens her eyes to painful stimuli. does not follow commands Psych: calm rectal: deferred Objective Vital Signs Date Time Temp Pulse Resp B/P Pulse Ox O2 Delivery O2 Flow Rate FiO2 06/06/17 08:00 58 06/06/17 07:45 17 99 30 06/06/17 07:39 116/59 06/06/17 04:00 92.8 06/04/17 18:00 Mechanical Ventilator Intake and Output 06/05/17 06/05/17 06/06/17 15:00 23:00 07:00 Intake Total 1955 ml 1370 ml Output Total 150 ml 250 ml Balance 1805 ml 1120 ml Results/Medications Result Diagram: 06/06/17 0646 06/06/17 0646 Results 24 hrs Laboratory Tests Test 06/05/17 11:44 06/05/17 12:05 06/05/17 16:29 06/05/17 16:31 Bedside Glucose 110 172 140 Lab Scanned Report REFERENCE LAB Test 06/05/17 20:44 06/06/17 01:14 06/06/17 05:21 06/06/17 06:46 Bedside Glucose 123 118 113 White Blood Count 5.3 # Red Blood Count 3.43 L Hemoglobin 10.0 L Hematocrit 31.3 L Mean Corpuscular Volume 91.3 Mean Corpuscular Hemoglobin 29.2 Mean Corpuscular Hemoglobin Concent 31.9 L Red Cell Distribution Width 20.0 H Platelet Count 113 #L Mean Platelet Volume 10.3 Neutrophils % 81.4 H Lymphocytes % 10.9 L Monocytes % 5.8 Eosinophils % 1.3 Basophils % 0.0 Nucleated Red Blood Cells % 0.0 Neutrophils # (Manual) 4.3 Lymphocytes # 0.6 L Monocytes # 0.3 Eosinophils # 0.1 Basophils # 0.0 Nucleated Red Blood Cells # 0.0 Sodium Level 135 Potassium Level 3.2 L Chloride Level 101 Carbon Dioxide Level 24 Anion Gap 13 Blood Urea Nitrogen 46 H Creatinine 2.39 H Glucose Level 112 Calcium Level 8.5 Phosphorus Level 4.4 Magnesium Level 2.2 Prealbumin 21.3 Test 06/06/17 09:21 Bedside Glucose 112 Medications Current Medications Atorvastatin Calcium (Lipitor) 10 mg QHS GTB Last administered on 05/19/17 21: 00; Admin Dose 10 MG; Start 05/06/17 at 21:00 Bisacodyl (Dulcolax Supp) 10 mg Q48H [place] Last administered on 06/05/17 16:23; Admin Dose 10 MG; Start 05/06/17 at 17:00 Carbidopa/Levodopa (Sinemet (25/ 100)) 1 tab TID GTB Last administered on 22:02; Admin Dose 1 TAB; Start 05/06/17 at 21:00 Donepezil HCl (Aricept) 10 mg QHS GTB Last administered on 05/19/17 21:00; Admin Dose 10 MG; Start 05/06/17 at 21:00 Ferrous Sulfate (Ferrous Sulfate (Ec)) 325 mg BID PO Last administered on 09:09; Admin Dose 325 MG; Start 05/06/17 at 21:00 Folic Acid (Folic Acid) 1 mg DAILY GTB Last administered on 05/22/17 09:09; Admin Dose 1 MG; Start 05/07/17 at 09:00 Lactobacillus Acidophilus/ Rhamnosus (Culturelle) 1 cap QHS GTB Last administered on 05/19/17 21:00; Admin Dose 1 CAP; Start 05/06/17 at 21:00 Magnesium Hydroxide (Milk Of Mag) 30 ml Q24H GTB Last administered on 05/22/17 16:38; Admin Dose 30 ML; Start 05/06/17 at 17:00 Memantine (Namenda) 5 mg QAM GTB Last administered on 05/22/17 09:10; Admin Dose 5 MG; Start 05/07/17 at 09:00 Multivit/Ca Carb/ B Cmplx/FA/Prenat (Radhika-John) 1 tab DAILY GTB Last administered on 05/22/17 09:09; Admin Dose 1 TAB; Start 05/07/17 at 09:00 Pramipexole (Mirapex) 0.5 mg DAILY GTB Last administered on 05/22/17 09:09; Admin Dose 0.5 MG; Start 05/07/17 at 09:00 Sodium Biphosphate/ Sodium Phosphate (Fleet Enema Pediatric) 118 ml Q72H PRN [place] CONSTIPATION; Start 05/06/17 at 17:00 Citric Acid/ Sodium Citrate (Bicitra) 30 ml BID PO Last administered on 09:09; Admin Dose 30 ML; Start 05/06/17 at 21:00 Nystatin (Nystatin Powder) 1 applic BID TOP Last administered on 06/06/17 09: 22; Admin Dose 1 APPLIC; Start 05/09/17 at 21:00 Collagenase (Santyl) 1 applic DAILY TOP Last administered on 06/06/17 09:22; Admin Dose 1 APPLIC; Start 05/09/17 at 15:00 Collagenase (Santyl) 1 applic PRN PRN TOP WOUND CARE; Start 05/09/17 at 14:00 Miscellaneous Information 1 ea NOTE XX ; Start 05/11/17 at 08:00 Glucose (Glutose) 15 gm Q15M PRN PO DECREASED GLUCOSE; Start 05/11/17 at 08:00 Glucose (Glutose) 22.5 gm Q15M PRN PO DECREASED GLUCOSE; Start 05/11/17 at 08: 00 Dextrose (D50w Syringe) 25 ml Q15M PRN IV DECREASED GLUCOSE Last administered on 05/28/17 00:53; Admin Dose 25 ML; Start 05/11/17 at 08:00 Dextrose (D50w Syringe) 50 ml Q15M PRN IV DECREASED GLUCOSE Last administered on 05/15/17 00:11; Admin Dose 50 ML; Start 05/11/17 at 08:00 Glucagon (Glucagen) 1 mg Q15M PRN IM DECREASED GLUCOSE; Start 05/11/17 at 08:00 Glucose (Glutose) 15 gm Q15M PRN BUCCAL DECREASED GLUCOSE; Start 05/11/17 at 08 :00 Epoetin Vasyl (Epogen (Esrd)) 10,000 units MoWeFr@17 SC Last administered on 16:43; Admin Dose 10,000 UNITS; Start 05/13/17 at 17:00 IV Flush (NS 10 ml) 10 ml PRN PRN IV IV PROTOCOL; Start 05/15/17 at 17:30 Midodrine (Proamatine) 10 mg TID@09,,17 GTB ; Start 05/23/17 at 09:00 Heparin Sodium (Porcine) (Heparin (5000 Units/0.5 ml)) 5,000 unit BID SC Last administered on 06/06/17 09:30; Admin Dose 5,000 UNIT; Start 05/23/17 at 09:00 Insulin Aspart NOVOLOG *MILD* ALGORI... Q4 SC Last administered on 06/01/17 21 :32; Admin Dose 1 UNIT; Start 05/26/17 at 09:00 Total Parenteral Nutrition 1,000 ml @ 40 mls/hr Q24H IV Last administered on 08:40; Admin Dose 40 MLS/HR; Start 05/27/17 at 14:00 Fat Emulsion Intravenous (Liposyn Ii 20%) 250 ml @ 31.25 mls/ hr Q24H IV Last administered on 06/06/17 09:34; Admin Dose 31.25 MLS/HR; Start 05/28/17 at 10:00 Famotidine 20 mg 20 mg DAILY IV Last administered on 06/06/17 09:22; Admin Dose 20 MG; Start 05/29/17 at 09:00 Sodium Chloride 1,000 ml @ 75 mls/hr [id number] IV Last administered on 08:00; Admin Dose 75 MLS/HR; Start 06/01/17 at 21:00 Caspofungin/ Sodium Chloride (Cancidas/NS) 250 ml @ 250 mls/hr Q24H IVPB Last administered on 06/05/17 16:23; Admin Dose 250 MLS/HR; Start 06/04/17 at 15:30 Hydrocortisone (Solu-Cortef) 20 mg Q8 IV Last administered on 06/06/17t 05:22; Admin Dose 20 MG; Start 06/04/17 at 14:00 Assessment/Plan Chief Complaint/Hosp Course 1. hypoxemic resp failure: s/p trach 2. Pafib; currently in NSR 3. hx HTN: 4. encephalopathy 5. renal failure: f/u with nephrology 6. dysphagia 7. G tube malfunction/ infection: unable to repair by GI. 8. GI bleed 9. severe anemia 10. malnutrition 11. anasarca and fluid overload. cont resp care nutritional support. correct lytes prn off of PLAVIX DUE TO ANEMIA/ BLEEDING. pt is also NPO and unable to take po meds. F/U with GI and surgery rec. nutritional support. CODE STATUS IS chemical code only now. THANK YOU. Problems: MILAGROS MUNOZ MD Jun 06, 2017 09:52
--- NOTE | 2017-06-06 10:29 | PN ---
Date/Time of Note Date/Time of Note DATE: 06/06/17 TIME: 10:27 Assessment/Plan VTE Prophylaxis VTE Prophylaxis Intervention: other Lines/Catheters IV Catheter Type (from Nrsg): PICC Line Central line still needed: Yes Urinary Cath still in place: Yes Reason Cath still needed: urinary retention Assessment/Plan Chief Complaint/Hosp Course SUBJECTIVE DATA: The patient remains critically ill. The patient is currently off pressor support. Blood pressures remain stable. Patient remains oligoanuric. No other events noted. No hemoptysis, hematemesis, hematochezia. s/p two units of packed red blood cells with stable H/H since vent settings and imaging studies were reviewed OBJECTIVE DATA: HEENT: Head is normocephalic. NECK: Supple. HEART: Regular rate. LUNGS: Diminished breath sounds at the base. ABDOMEN: Soft, nontender to palpation. Positive gastrocutaneous fistula. EXTREMITIES: Negative for clubbing, cyanosis. Positive edema. DERMATOLOGIC: No rashes. MUSCULOSKELETAL: No joint effusion. NEUROLOGIC: No change in exam. MEDICATIONS: Reviewed. assessment and plan: 1. Septic shock, etiology is multifactorial. The patient has currently been weaned off pressors. Will continue current treatment plan. Antibiotics, continue IV fluids. Continue to monitor. continues to be hypothermic 2. Anemia. s/p transfusion 3. Questionable adrenal insufficiency. The patient was placed on stress steroids, now being tapered off. Appreciate endocrine evaluation. 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 Follow up with General Surgery. 5. Oligoanuric acute kidney injury on top of chronic kidney disease stage IV. Etiology secondary to ATN, septic and septic acute kidney injury. Plan is to give diuretic challenge. dialysis is futile in this patient 6. Ventilatory-dependent respiratory failure. Vent settings reviewed. ABGs reviewed. Continue to monitor. 7. Hyponatremia, etiology secondary to acute kidney injury in conjunction with hypotonic fluids. The patient's sodium levels have slowly been improving. Continue to monitor. 8. Acute encephalopathy and advanced dementia, etiology toxic metabolic. 9. Volume overload, etiology secondary to chronic kidney disease, catheter leak. The patient be given diuretic challenge. Will monitor closely. 10. Diabetes. Continue Accu-Cheks and sliding scale. 11. Nutrition. Continue total parenteral nutrition. She has a GCF which is healing very slowly 12. Decubitus wound. Continue wound care. 13. Metabolic acidosis secondary to acute kidney injury. The patient's ABG shows appropriate compensation. Will continue to monitor. Problems: Exam/Review of Systems Vital Signs Vitals Vital Signs Date Time Temp Pulse Resp B/P Pulse Ox O2 Delivery O2 Flow Rate FiO2 06/06/17 09:05 52 16 99 30 06/06/17 07:39 116/59 06/06/17 04:00 92.8 06/04/17 18:00 Mechanical Ventilator Intake and Output 06/05/17 06/05/17 06/06/17 15:00 23:00 07:00 Intake Total 1955 ml 1370 ml Output Total 150 ml 250 ml Balance 1805 ml 1120 ml Results Result Diagram: 06/06/17 0646 06/06/17 0646 Results 24 hrs Laboratory Tests Test 06/05/17 11:44 06/05/17 12:05 06/05/17 16:29 06/05/17 16:31 Bedside Glucose 110 172 140 Lab Scanned Report REFERENCE LAB Test 06/05/17 20:44 06/06/17 01:14 06/06/17 05:21 06/06/17 06:46 Bedside Glucose 123 118 113 White Blood Count 5.3 # Red Blood Count 3.43 L Hemoglobin 10.0 L Hematocrit 31.3 L Mean Corpuscular Volume 91.3 Mean Corpuscular Hemoglobin 29.2 Mean Corpuscular Hemoglobin Concent 31.9 L Red Cell Distribution Width 20.0 H Platelet Count 113 #L Mean Platelet Volume 10.3 Neutrophils % 81.4 H Lymphocytes % 10.9 L Monocytes % 5.8 Eosinophils % 1.3 Basophils % 0.0 Nucleated Red Blood Cells % 0.0 Neutrophils # (Manual) 4.3 Lymphocytes # 0.6 L Monocytes # 0.3 Eosinophils # 0.1 Basophils # 0.0 Nucleated Red Blood Cells # 0.0 Sodium Level 135 Potassium Level 3.2 L Chloride Level 101 Carbon Dioxide Level 24 Anion Gap 13 Blood Urea Nitrogen 46 H Creatinine 2.39 H Glucose Level 112 Calcium Level 8.5 Phosphorus Level 4.4 Magnesium Level 2.2 Prealbumin 21.3 Test 06/06/17 09:21 Bedside Glucose 112 Medications Medications Current Medications Atorvastatin Calcium (Lipitor) 10 mg QHS GTB Last administered on 05/19/17t 21: 00; Admin Dose 10 MG; Start 05/06/17 at 21:00 Bisacodyl (Dulcolax Supp) 10 mg Q48H [place] Last administered on 06/05/17 16:23; Admin Dose 10 MG; Start 05/06/17 at 17:00 Carbidopa/Levodopa (Sinemet (25/ 100)) 1 tab TID GTB Last administered on 22:02; Admin Dose 1 TAB; Start 05/06/17 at 21:00 Donepezil HCl (Aricept) 10 mg QHS GTB Last administered on 05/19/17 21:00; Admin Dose 10 MG; Start 05/06/17 at 21:00 Ferrous Sulfate (Ferrous Sulfate (Ec)) 325 mg BID PO Last administered on 09:09; Admin Dose 325 MG; Start 05/06/17 at 21:00 Folic Acid (Folic Acid) 1 mg DAILY GTB Last administered on 05/22/17 09:09; Admin Dose 1 MG; Start 05/07/17 at 09:00 Lactobacillus Acidophilus/ Rhamnosus (Culturelle) 1 cap QHS GTB Last administered on 05/19/17 21:00; Admin Dose 1 CAP; Start 05/06/17 at 21:00 Magnesium Hydroxide (Milk Of Mag) 30 ml Q24H GTB Last administered on 05/22/17 16:38; Admin Dose 30 ML; Start 05/06/17 at 17:00 Memantine (Namenda) 5 mg QAM GTB Last administered on 05/22/17 09:10; Admin Dose 5 MG; Start 05/07/17 at 09:00 Multivit/Ca Carb/ B Cmplx/FA/Prenat (Radhika-John) 1 tab DAILY GTB Last administered on 05/22/17 09:09; Admin Dose 1 TAB; Start 05/07/17 at 09:00 Pramipexole (Mirapex) 0.5 mg DAILY GTB Last administered on 05/22/17 09:09; Admin Dose 0.5 MG; Start 05/07/17 at 09:00 Sodium Biphosphate/ Sodium Phosphate (Fleet Enema Pediatric) 118 ml Q72H PRN [place] CONSTIPATION; Start 05/06/17 at 17:00 Citric Acid/ Sodium Citrate (Bicitra) 30 ml BID PO Last administered on 09:09; Admin Dose 30 ML; Start 05/06/17 at 21:00 Nystatin (Nystatin Powder) 1 applic BID TOP Last administered on 06/06/17 09: 22; Admin Dose 1 APPLIC; Start 05/09/17 at 21:00 Collagenase (Santyl) 1 applic DAILY TOP Last administered on 06/06/17 09:22; Admin Dose 1 APPLIC; Start 05/09/17 at 15:00 Collagenase (Santyl) 1 applic PRN PRN TOP WOUND CARE; Start 05/09/17 at 14:00 Miscellaneous Information 1 ea NOTE XX ; Start 05/11/17 at 08:00 Glucose (Glutose) 15 gm Q15M PRN PO DECREASED GLUCOSE; Start 05/11/17 at 08:00 Glucose (Glutose) 22.5 gm Q15M PRN PO DECREASED GLUCOSE; Start 05/11/17 at 08: 00 Dextrose (D50w Syringe) 25 ml Q15M PRN IV DECREASED GLUCOSE Last administered on 05/28/17 00:53; Admin Dose 25 ML; Start 05/11/17 at 08:00 Dextrose (D50w Syringe) 50 ml Q15M PRN IV DECREASED GLUCOSE Last administered on 05/15/17 00:11; Admin Dose 50 ML; Start 05/11/17 at 08:00 Glucagon (Glucagen) 1 mg Q15M PRN IM DECREASED GLUCOSE; Start 05/11/17 at 08:00 Glucose (Glutose) 15 gm Q15M PRN BUCCAL DECREASED GLUCOSE; Start 05/11/17 at 08 :00 Epoetin Vasyl (Epogen (Esrd)) 10,000 units MoWeFr@17 SC Last administered on 16:43; Admin Dose 10,000 UNITS; Start 05/13/17 at 17:00 IV Flush (NS 10 ml) 10 ml PRN PRN IV IV PROTOCOL; Start 05/15/17 at 17:30 Midodrine (Proamatine) 10 mg TID@ GTB ; Start 05/23/17 at 09:00 Heparin Sodium (Porcine) (Heparin (5000 Units/0.5 ml)) 5,000 unit BID SC Last administered on 06/06/17 09:30; Admin Dose 5,000 UNIT; Start 05/23/17 at 09:00 Insulin Aspart NOVOLOG *MILD* ALGORI... Q4 SC Last administered on 06/01/17 21 :32; Admin Dose 1 UNIT; Start 05/26/17 at 09:00 Total Parenteral Nutrition 1,000 ml @ 40 mls/hr Q24H IV Last administered on 08:40; Admin Dose 40 MLS/HR; Start 05/27/17 at 14:00 Fat Emulsion Intravenous (Liposyn Ii 20%) 250 ml @ 31.25 mls/ hr Q24H IV Last administered on 06/06/17 09:34; Admin Dose 31.25 MLS/HR; Start 05/28/17 at 10:00 Famotidine 20 mg 20 mg DAILY IV Last administered on 06/06/17 09:22; Admin Dose 20 MG; Start 05/29/17 at 09:00 Sodium Chloride 1,000 ml @ 75 mls/hr [id number] IV Last administered on 08:00; Admin Dose 75 MLS/HR; Start 06/01/17 at 21:00 Caspofungin/ Sodium Chloride (Cancidas/NS) 250 ml @ 250 mls/hr Q24H IVPB Last administered on 06/05/17 16:23; Admin Dose 250 MLS/HR; Start 06/04/17 at 15:30 Hydrocortisone (Solu-Cortef) 20 mg Q8 IV Last administered on 06/06/17 05:22; Admin Dose 20 MG; Start 06/04/17 at 14:00 DELIA FINE DO Jun 06, 2017 10:29
--- NOTE | 2017-06-06 10:55 | PN ---
DATE: 06/05/2017 SUBJECTIVE DATA: No acute changes. Remains obtunded, hyperthermic. Transferred out of ICU. OBJECTIVE DATA: VITAL SIGNS: Rectal temperature 91, pulse 58, respirations 16, blood pressure 139/74, and saturation 98 on 30 FiO2. MICROBIOLOGY: Blood culture since June 03 is negative. Urine culture growing Gillian albicans. INDWELLINGS: Trach, PICC line, and Collazo. ANTIMICROBIALS: Amikacin, Cancidas, Solu-Cortef, and Bactrim. PHYSICAL EXAMINATION: GENERAL: Chronically ill-appearing, elderly woman, who is nonverbal, noncommunicative, in no distress. HEENT: Head atraumatic, normocephalic. Sclerae anicteric. Buccal mucosa dry. NECK: Supple. Tracheostomy present. CHEST: Rise symmetrical. Breath sounds with bilateral scattered crackles. HEART: S1, S2. ABDOMEN: Soft, distended. Bowel sounds hypoactive. EXTREMITIES: With bilateral edema. SKIN: With generalized edema and erythema. ASSESSMENT: 1. Status post shock, multifactorial. 2. Gillian albicans urinary tract infection (UTI). 3. Healthcare associated pneumonia, on antibiotics, day 16. 4. G-tube malfunction. 5. Chronic encephalopathy. 6. Acute on chronic kidney disease. 7. Diabetes. PLAN: We are going to continue the patient on Cancidas. Discontinue Bactrim and amikacin. Continue Solu-Cortef. Continue local wound care around G-tube site. Repeat cultures p.r.n. Dictated By: Ryder Murillo NP /junie/bowen /Document#: [id number]
--- NOTE | 2017-06-06 11:11 | PN ---
Date/Time of Note Date/Time of Note DATE: 06/06/17 TIME: 11:06 Assessment/Plan Lines/Catheters IV Catheter Type (from Nrs): PICC Line Collazo in Place (from Nrs): Yes Assessment/Plan Chief Complaint/Hosp Course 1. G-tube dislodgement: replaced with gjtube by GI, continued yellow drainage peristomal; gj tube replacement attempt-unable due to too large of an opening; Now chemical code; currently on tpn; -hospice/palliative is the best option for this patient 2. Septic shock: multifactorial: 2/2: pneumonia + cellulitis + wounds; persistent, off pressors again, hypothermic -abx -supportive 3. Respiratory failure with trach: PNA with pulm edema; comfortable on vent; large sputum -pulmonary toilet -abx -supportive 4.STARLA with CKD; anuric currently -judicious fluids -renally dose meds -per nephrology 5. Normocytic anemia: previous coffee ground drainage peristoma;no acute bleed noted; h/h critically low, s/p transfusion -monitor and transfuse as needed 6. CHF -medical management 7. Diabetes with hypoglycemia -medical management 8. Acute encephalopathy with history of advanced dementia; unchanged neurologically -supportive 9. Decubitus wound. -continue wound care. 10. Peristomal cellulitis 2/2 #1; +pseudomonas: improving with drainage to ostomy bag -local care 11. Pancytopenia: improving Patient seen and examined in collaboration with Dr. Meliton Blackburn. Thank you. Problems: Subjective 24 Hr Interval Summary Hypothermic, vented, mod/large drainage from GCF. on tpn. copious secretions. No fevers, chills, sz, vomiting/diarrhea. Exam/Review of Systems Vital Signs Vitals Vital Signs Date Time Temp Pulse Resp B/P Pulse Ox O2 Delivery O2 Flow Rate FiO2 06/06/17 09:05 52 16 99 30 06/06/17 07:39 116/59 06/06/17 04:00 92.8 06/04/17 18:00 Mechanical Ventilator Intake and Output 06/05/17 06/05/17 06/06/17 15:00 23:00 07:00 Intake Total 1955 ml 1370 ml Output Total 150 ml 250 ml Balance 1805 ml 1120 ml Exam Free Text/Dictation Constitutional: non-verbal, awake, nonresponsive, ill-appearing No oriented Psych: confusion, withdraws from pain Head: atraumatic, normocephalic Eyes: nl sclera ENMT: mucosa pink and moist, missing teeth Neck: non-tender, other (trach), supple Respiratory: diminished Cardiovascular: edema Gastrointestinal: distended (mod), other (stoma with large yellow/green drainage to ostomy bag), soft, nontender Musculoskeletal: No muscle tone Extremities: edema worsened Neurological: No nl mental status, No nl speech Skin: other (abdominal/peristomal/breast fold redness) Results Result Diagram: 06/06/17 0646 06/06/17 0646 SHADI CALDERON NP Jun 06, 2017 11:11
--- NOTE | 2017-06-06 12:40 | CONS ---
Date/Time of Note Date/Time of Note DATE: 06/06/17 TIME: 12:38 Consult Date/Type/Reason Admit Date/Time May 06, 2017 at 16:34 Initial Consult Date 05/10/17 Type of Consultation: Pulmonary Ordering Provider: OSMAR MONTAGUE DO Subjective No changes from pulmonary standpoint. Objective Vital Signs Date Time Temp Pulse Resp B/P Pulse Ox O2 Delivery O2 Flow Rate FiO2 06/06/17 11:48 58 16 160/72 100 06/06/17 11:00 30 06/06/17 04:00 92.8 06/04/17 18:00 Mechanical Ventilator Intake and Output 06/05/17 06/05/17 06/06/17 15:00 23:00 07:00 Intake Total 1955 ml 1370 ml Output Total 150 ml 250 ml Balance 1805 ml 1120 ml Exam PHYSICAL EXAMINATION GENERAL: Elderly lady chronically ill-appearing on mechanical ventilation via tracheostomy VITAL SIGNS: see below. HEENT: Pupils equal, round, and reactive to light. Tracheostomy site clean and intact. CARDIAC: S1, S2, 2/6 systolic ejection murmur CHEST: Diminished air entry bilaterally. ABDOMEN: Mildly distended. Bowel sounds present no guarding or rebound EXTREMITIES: No cyanosis, clubbing edema +2 NEUROLOGIC: Generalized weakness Results/Medications Result Diagram: 06/06/17 0646 06/06/17 0646 Results 24 hrs Laboratory Tests Test 06/05/17 16:29 06/05/17 16:31 06/05/17 20:44 06/06/17 01:14 Bedside Glucose 172 140 123 118 Test 06/06/17 05:21 06/06/17 06:46 06/06/17 09:21 Bedside Glucose 113 112 White Blood Count 5.3 # Red Blood Count 3.43 L Hemoglobin 10.0 L Hematocrit 31.3 L Mean Corpuscular Volume 91.3 Mean Corpuscular Hemoglobin 29.2 Mean Corpuscular Hemoglobin Concent 31.9 L Red Cell Distribution Width 20.0 H Platelet Count 113 #L Mean Platelet Volume 10.3 Neutrophils % 81.4 H Lymphocytes % 10.9 L Monocytes % 5.8 Eosinophils % 1.3 Basophils % 0.0 Nucleated Red Blood Cells % 0.0 Neutrophils # (Manual) 4.3 Lymphocytes # 0.6 L Monocytes # 0.3 Eosinophils # 0.1 Basophils # 0.0 Nucleated Red Blood Cells # 0.0 Sodium Level 135 Potassium Level 3.2 L Chloride Level 101 Carbon Dioxide Level 24 Anion Gap 13 Blood Urea Nitrogen 46 H Creatinine 2.39 H Glucose Level 112 Calcium Level 8.5 Phosphorus Level 4.4 Magnesium Level 2.2 Prealbumin 21.3 Medications Current Medications Atorvastatin Calcium (Lipitor) 10 mg QHS GTB Last administered on 05/19/17 21: 00; Admin Dose 10 MG; Start 05/06/17 at 21:00 Bisacodyl (Dulcolax Supp) 10 mg Q48H [place] Last administered on 06/05/17 16:23; Admin Dose 10 MG; Start 05/06/17 at 17:00 Carbidopa/Levodopa (Sinemet (25/ )) 1 tab TID GTB Last administered on 22:02; Admin Dose 1 TAB; Start 05/06/17 at 21:00 Donepezil HCl (Aricept) 10 mg QHS GTB Last administered on 05/19/17 21:00; Admin Dose 10 MG; Start 05/06/17 at 21:00 Ferrous Sulfate (Ferrous Sulfate (Ec)) 325 mg BID PO Last administered on 09:09; Admin Dose 325 MG; Start 05/06/17 at 21:00 Folic Acid (Folic Acid) 1 mg DAILY GTB Last administered on 05/22/17 09:09; Admin Dose 1 MG; Start 05/07/17 at 09:00 Lactobacillus Acidophilus/ Rhamnosus (Culturelle) 1 cap QHS GTB Last administered on 05/19/17 21:00; Admin Dose 1 CAP; Start 05/06/17 at 21:00 Magnesium Hydroxide (Milk Of Mag) 30 ml Q24H GTB Last administered on 05/22/17 16:38; Admin Dose 30 ML; Start 05/06/17 at 17:00 Memantine (Namenda) 5 mg QAM GTB Last administered on 05/22/17 09:10; Admin Dose 5 MG; Start 05/07/17 at 09:00 Multivit/Ca Carb/ B Cmplx/FA/Prenat (Radhika-John) 1 tab DAILY GTB Last administered on 05/22/17 09:09; Admin Dose 1 TAB; Start 05/07/17 at 09:00 Pramipexole (Mirapex) 0.5 mg DAILY GTB Last administered on 05/22/17 09:09; Admin Dose 0.5 MG; Start 05/07/17 at 09:00 Sodium Biphosphate/ Sodium Phosphate (Fleet Enema Pediatric) 118 ml Q72H PRN [place] CONSTIPATION; Start 05/06/17 at 17:00 Citric Acid/ Sodium Citrate (Bicitra) 30 ml BID PO Last administered on 09:09; Admin Dose 30 ML; Start 05/06/17 at 21:00 Nystatin (Nystatin Powder) 1 applic BID TOP Last administered on 06/06/17 09: 22; Admin Dose 1 APPLIC; Start 05/09/17 at 21:00 Collagenase (Santyl) 1 applic DAILY TOP Last administered on 06/06/17 09:22; Admin Dose 1 APPLIC; Start 05/09/17 at 15:00 Collagenase (Santyl) 1 applic PRN PRN TOP WOUND CARE; Start 05/09/17 at 14:00 Miscellaneous Information 1 ea NOTE XX ; Start 05/11/17 at 08:00 Glucose (Glutose) 15 gm Q15M PRN PO DECREASED GLUCOSE; Start 05/11/17 at 08:00 Glucose (Glutose) 22.5 gm Q15M PRN PO DECREASED GLUCOSE; Start 05/11/17 at 08: 00 Dextrose (D50w Syringe) 25 ml Q15M PRN IV DECREASED GLUCOSE Last administered on 05/28/17 00:53; Admin Dose 25 ML; Start 05/11/17 at 08:00 Dextrose (D50w Syringe) 50 ml Q15M PRN IV DECREASED GLUCOSE Last administered on 05/15/17 00:11; Admin Dose 50 ML; Start 05/11/17 at 08:00 Glucagon (Glucagen) 1 mg Q15M PRN IM DECREASED GLUCOSE; Start 05/11/17 at 08:00 Glucose (Glutose) 15 gm Q15M PRN BUCCAL DECREASED GLUCOSE; Start 05/11/17 at 08 :00 Epoetin Vasyl (Epogen (Esrd)) 10,000 units MoWeFr@17 SC Last administered on 16:43; Admin Dose 10,000 UNITS; Start 05/13/17 at 17:00 IV Flush (NS 10 ml) 10 ml PRN PRN IV IV PROTOCOL; Start 05/15/17 at 17:30 Midodrine (Proamatine) 10 mg TID@09,,17 GTB ; Start 05/23/17 at 09:00 Heparin Sodium (Porcine) (Heparin (5000 Units/0.5 ml)) 5,000 unit BID SC Last administered on 06/06/17 09:30; Admin Dose 5,000 UNIT; Start 05/23/17 at 09:00 Insulin Aspart NOVOLOG *MILD* ALGORI... Q4 SC Last administered on 06/01/17 21 :32; Admin Dose 1 UNIT; Start 05/26/17 at 09:00 Total Parenteral Nutrition 1,000 ml @ 40 mls/hr Q24H IV Last administered on 08:40; Admin Dose 40 MLS/HR; Start 05/27/17 at 14:00 Fat Emulsion Intravenous (Liposyn Ii 20%) 250 ml @ 31.25 mls/ hr Q24H IV Last administered on 06/06/17 09:34; Admin Dose 31.25 MLS/HR; Start 05/28/17 at 10:00 Famotidine 20 mg 20 mg DAILY IV Last administered on 06/06/17 09:22; Admin Dose 20 MG; Start 05/29/17 at 09:00 Sodium Chloride 1,000 ml @ 75 mls/hr [id number] IV Last administered on 08:00; Admin Dose 75 MLS/HR; Start 06/01/17 at 21:00 Caspofungin/ Sodium Chloride (Cancidas/NS) 250 ml @ 250 mls/hr Q24H IVPB Last administered on 06/05/17 16:23; Admin Dose 250 MLS/HR; Start 06/04/17 at 15:30 Hydrocortisone (Solu-Cortef) 10 mg Q8 IV ; Start 06/06/17 at 14:00 Assessment/Plan Chief Complaint/Hosp Course Additional Assessment/Plan IMP: 1. Status post septic shock now off vasopressors. 2. VDRF 3. Possible healthcare associated pneumonia 4. Cellulitis 5. Urosepsis 6. Encephalopathy chronic, vegetative state 7. STARLA 8. Anemia likely multifactorial. 9. Hyponatremia improved. RECS: 1. Monitor H&H 2. Vent support 3. Palliative Care consultation. Bioethics recs. 4. TF's/Free H20 5. dvt prophylaxis Discharge planning okay from pulmonary standpoint Problems: JARED CLAIRE MD, [facility] Jun 06, 2017 12:40
[2017-06-06] MEDS: TPN 1,000 ML IV SCH (13:19)
--- NOTE | 2017-06-06 15:00 | CONS ---
Date/Time of Note Date/Time of Note DATE: 06/06/17 TIME: 14:58 Assessment/Plan Assessment/Plan Chief Complaint/Hosp Course SUBJECTIVE DATA: No acute changes. Remains obtunded, nad MICROBIOLOGY: Blood culture since June 03 is negative. Urine culture growing Gillian albicans. Abx: Cancidas INDWELLING: Trach, PICC line, and Collazo. PHYSICAL EXAMINATION: GENERAL: Chronically ill-appearing, elderly woman, who is nonverbal, noncommunicative, in no distress. HEENT: Head atraumatic, normocephalic. Sclerae anicteric. Buccal mucosa dry. NECK: Supple. Tracheostomy present. CHEST: Rise symmetrical. Breath sounds with bilateral scattered crackles. HEART: S1, S2. ABDOMEN: Soft, distended. Bowel sounds hypoactive. EXTREMITIES: With bilateral edema. SKIN: With generalized edema and erythema. ASSESSMENT: 1. Status post shock, multifactorial. 2. Gillian albicans urinary tract infection (UTI). 3. S/p Healthcare associated pneumonia 4. G-tube malfunction. 5. Chronic encephalopathy. 6. Acute on chronic kidney disease. 7. Diabetes. PLAN: Remains unchanged, continue present care, cano cx prn, poss tx to [facility] staff Problems: Consultation Date/Type/Reason Admit Date/Time May 06, 2017 at 16:34 Initial Consult Date 05/09/17 Type of Consultation: ID Referring Provider: OSMAR MONTAGUE DO Exam/Review of Systems Vital Signs Vitals Vital Signs Date Time Temp Pulse Resp B/P Pulse Ox O2 Delivery O2 Flow Rate FiO2 06/06/17 13:10 63 16 99 30 06/06/17 11:48 160/72 06/06/17 04:00 92.8 06/04/17 18:00 Mechanical Ventilator Intake and Output 06/05/17 06/05/17 06/06/17 15:00 23:00 07:00 Intake Total 1955 ml 1370 ml Output Total 150 ml 250 ml Balance 1805 ml 1120 ml Results Result Diagram: 06/06/17 0646 06/06/17 0646 Results 24 hrs Laboratory Tests Test 06/05/17 16:29 06/05/17 16:31 06/05/17 20:44 06/06/17 01:14 Bedside Glucose 172 140 123 118 Test 06/06/17 05:21 06/06/17 06:46 06/06/17 09:21 06/06/17 13:17 Bedside Glucose 113 112 98 White Blood Count 5.3 # Red Blood Count 3.43 L Hemoglobin 10.0 L Hematocrit 31.3 L Mean Corpuscular Volume 91.3 Mean Corpuscular Hemoglobin 29.2 Mean Corpuscular Hemoglobin Concent 31.9 L Red Cell Distribution Width 20.0 H Platelet Count 113 #L Mean Platelet Volume 10.3 Neutrophils % 81.4 H Lymphocytes % 10.9 L Monocytes % 5.8 Eosinophils % 1.3 Basophils % 0.0 Nucleated Red Blood Cells % 0.0 Neutrophils # (Manual) 4.3 Lymphocytes # 0.6 L Monocytes # 0.3 Eosinophils # 0.1 Basophils # 0.0 Nucleated Red Blood Cells # 0.0 Sodium Level 135 Potassium Level 3.2 L Chloride Level 101 Carbon Dioxide Level 24 Anion Gap 13 Blood Urea Nitrogen 46 H Creatinine 2.39 H Glucose Level 112 Calcium Level 8.5 Phosphorus Level 4.4 Magnesium Level 2.2 Prealbumin 21.3 Medications Medications Current Medications Atorvastatin Calcium (Lipitor) 10 mg QHS GTB Last administered on 05/19/17 21: 00; Admin Dose 10 MG; Start 05/06/17 at 21:00 Bisacodyl (Dulcolax Supp) 10 mg Q48H [place] Last administered on 06/05/17 16:23; Admin Dose 10 MG; Start 05/06/17 at 17:00 Carbidopa/Levodopa (Sinemet (25/ 100)) 1 tab TID GTB Last administered on 22:02; Admin Dose 1 TAB; Start 05/06/17 at 21:00 Donepezil HCl (Aricept) 10 mg QHS GTB Last administered on 05/19/17 21:00; Admin Dose 10 MG; Start 05/06/17 at 21:00 Ferrous Sulfate (Ferrous Sulfate (Ec)) 325 mg BID PO Last administered on 09:09; Admin Dose 325 MG; Start 05/06/17 at 21:00 Folic Acid (Folic Acid) 1 mg DAILY GTB Last administered on 05/22/17 09:09; Admin Dose 1 MG; Start 05/07/17 at 09:00 Lactobacillus Acidophilus/ Rhamnosus (Culturelle) 1 cap QHS GTB Last administered on 05/19/17 21:00; Admin Dose 1 CAP; Start 05/06/17 at 21:00 Magnesium Hydroxide (Milk Of Mag) 30 ml Q24H GTB Last administered on 05/22/17 16:38; Admin Dose 30 ML; Start 05/06/17 at 17:00 Memantine (Namenda) 5 mg QAM GTB Last administered on 05/22/17 09:10; Admin Dose 5 MG; Start 05/07/17 at 09:00 Multivit/Ca Carb/ B Cmplx/FA/Prenat (Radhika-John) 1 tab DAILY GTB Last administered on 05/22/17 09:09; Admin Dose 1 TAB; Start 05/07/17 at 09:00 Pramipexole (Mirapex) 0.5 mg DAILY GTB Last administered on 05/22/17 09:09; Admin Dose 0.5 MG; Start 05/07/17 at 09:00 Sodium Biphosphate/ Sodium Phosphate (Fleet Enema Pediatric) 118 ml Q72H PRN [place] CONSTIPATION; Start 05/06/17 at 17:00 Citric Acid/ Sodium Citrate (Bicitra) 30 ml BID PO Last administered on 09:09; Admin Dose 30 ML; Start 05/06/17 at 21:00 Nystatin (Nystatin Powder) 1 applic BID TOP Last administered on 06/06/17 09: 22; Admin Dose 1 APPLIC; Start 05/09/17 at 21:00 Collagenase (Santyl) 1 applic DAILY TOP Last administered on 06/06/17 09:22; Admin Dose 1 APPLIC; Start 05/09/17 at 15:00 Collagenase (Santyl) 1 applic PRN PRN TOP WOUND CARE; Start 05/09/17 at 14:00 Miscellaneous Information 1 ea NOTE XX ; Start 05/11/17 at 08:00 Glucose (Glutose) 15 gm Q15M PRN PO DECREASED GLUCOSE; Start 05/11/17 at 08:00 Glucose (Glutose) 22.5 gm Q15M PRN PO DECREASED GLUCOSE; Start 05/11/17 at 08: 00 Dextrose (D50w Syringe) 25 ml Q15M PRN IV DECREASED GLUCOSE Last administered on 05/28/17 00:53; Admin Dose 25 ML; Start 05/11/17 at 08:00 Dextrose (D50w Syringe) 50 ml Q15M PRN IV DECREASED GLUCOSE Last administered on 05/15/17 00:11; Admin Dose 50 ML; Start 05/11/17 at 08:00 Glucagon (Glucagen) 1 mg Q15M PRN IM DECREASED GLUCOSE; Start 05/11/17 at 08:00 Glucose (Glutose) 15 gm Q15M PRN BUCCAL DECREASED GLUCOSE; Start 05/11/17 at 08 :00 Epoetin Vasyl (Epogen (Esrd)) 10,000 units MoWeFr@17 SC Last administered on 16:43; Admin Dose 10,000 UNITS; Start 05/13/17 at 17:00 IV Flush (NS 10 ml) 10 ml PRN PRN IV IV PROTOCOL; Start 05/15/17 at 17:30 Midodrine (Proamatine) 10 mg TID@,,17 GTB ; Start 05/23/17 at 09:00 Heparin Sodium (Porcine) (Heparin (5000 Units/0.5 ml)) 5,000 unit BID SC Last administered on 06/06/17 09:30; Admin Dose 5,000 UNIT; Start 05/23/17 at 09:00 Insulin Aspart NOVOLOG *MILD* ALGORI... Q4 SC Last administered on 06/01/17 21 :32; Admin Dose 1 UNIT; Start 05/26/17 at 09:00 Total Parenteral Nutrition 1,000 ml @ 40 mls/hr Q24H IV Last administered on 13:19; Admin Dose 40 MLS/HR; Start 05/27/17 at 14:00 Fat Emulsion Intravenous (Liposyn Ii 20%) 250 ml @ 31.25 mls/ hr Q24H IV Last administered on 06/06/17 09:34; Admin Dose 31.25 MLS/HR; Start 05/28/17 at 10:00 Famotidine 20 mg 20 mg DAILY IV Last administered on 06/06/17 09:22; Admin Dose 20 MG; Start 05/29/17 at 09:00 Sodium Chloride 1,000 ml @ 75 mls/hr [id number] IV Last administered on 08:00; Admin Dose 75 MLS/HR; Start 06/01/17 at 21:00 Caspofungin/ Sodium Chloride (Cancidas/NS) 250 ml @ 250 mls/hr Q24H IVPB Last administered on 06/05/17 16:23; Admin Dose 250 MLS/HR; Start 06/04/17 at 15:30 Hydrocortisone (Solu-Cortef) 10 mg Q8 IV Last administered on 06/06/17 13:19; Admin Dose 10 MG; Start 06/06/17 at 14:00 DOROTHY CORONADO NP Jun 06, 2017 15:00
[2017-06-06] MEDS: CASPOFUNGIN 50 MG in SOD CHLORIDE 0.9% 250 ML IVPB SCH (15:04)
[2017-06-06] MEDS: MAGNESIUM HYDROXIDE 30ML CUP GTB SCH (17:00)
[2017-06-06] MEDS: ATORVASTATIN 10 MG TAB GTB SCH (21:00)
[2017-06-06] MEDS: LACTOBACILLUS RHAMNOSUS CAP GTB SCH (21:00)
[2017-06-06] MEDS: DONEPEZIL 10 MG TAB GTB SCH (21:00)
[2017-06-07] VITALS (24 sets, daily range): BP systolic 117–161; BP diastolic 60–78; PULSE 2–71; RESP 15–20
[2017-06-07] MEDS: INSULIN ASPART [NOVOLOG] 3 ML PEN SC SCH ×6 (01:00→20:34)
[2017-06-07] MEDS: SOD CHLORIDE 0.9% 1,000 ML IV SCH ×2 (03:16→23:40)
[2017-06-07] MEDS: HYDROCORTISONE 100 MG INJ IV SCH ×3 (05:10→22:40)
[2017-06-07] MEDS: FOLIC ACID 1 MG TAB GTB SCH (08:46)
[2017-06-07] MEDS: MIDODRINE 5 MG TAB GTB SCH ×3 (08:46→16:09)
[2017-06-07] MEDS: CARBIDOPA/LEVODOPA (25/100) TAB GTB SCH ×3 (08:46→20:33)
[2017-06-07] MEDS: PRAMIPEXOLE 0.25 MG TAB GTB SCH (08:46)
[2017-06-07] MEDS: MULTIVIT/CA CARB/B CMPLX/FA TAB GTB SCH (08:46)
[2017-06-07] MEDS: MEMANTINE 5 MG TAB GTB SCH (08:46)
[2017-06-07] MEDS: FERROUS SULFATE (EC) 325 MG TAB PO SCH ×2 (08:47→20:33)
[2017-06-07] MEDS: COLLAGENASE 30 GM TUBE TOP SCH (08:47)
[2017-06-07] MEDS: CITRIC ACID/NA CITRATE 30 ML CUP PO SCH ×2 (08:47→20:33)
[2017-06-07] MEDS: FAMOTIDINE 20 MG INJ IV SCH (08:47)
[2017-06-07] MEDS: HEPARIN 5,000 UNIT/0.5 ML VIAL SC SCH ×2 (08:52→20:35)
[2017-06-07] MEDS: NYSTATIN 30 GM POWDER BTL TOP SCH ×2 (08:53→20:34)
[2017-06-07] MEDS: FAT EMULSION 20% 250 ML IV SCH (09:11)
--- NOTE | 2017-06-07 10:14 | PN ---
Date/Time of Note Date/Time of Note DATE: 06/07/17 TIME: 10:09 Assessment/Plan Lines/Catheters IV Catheter Type (from Nrs): PICC Line Collazo in Place (from Nrs): Yes Assessment/Plan Chief Complaint/Hosp Course 1. G-tube dislodgement: replaced with gjtube by GI, continued yellow drainage peristomal; gj tube replacement attempt-unable due to too large of an opening; Now chemical code; currently on tpn; -hospice/palliative is the best option for this patient 2. Septic shock: multifactorial: 2/2: pneumonia + cellulitis + wounds; persistent, off pressors again, hypothermic, normothermic currently -abx -supportive 3. Respiratory failure with trach: PNA with pulm edema; comfortable on vent; large sputum -pulmonary toilet -abx -supportive 4.STARLA with CKD; anuric currently -judicious fluids -renally dose meds -per nephrology 5. Normocytic anemia: previous coffee ground drainage peristoma;no acute bleed noted; h/h critically low, s/p transfusion -monitor and transfuse as needed 6. CHF -medical management 7. Diabetes with hypoglycemia -medical management 8. Acute encephalopathy with history of advanced dementia; unchanged neurologically -supportive 9. Decubitus wound. -continue wound care. 10. Peristomal cellulitis 2/2 #1; +pseudomonas: improving with drainage to ostomy bag -local care 11. Pancytopenia -supportive Patient seen and examined in collaboration with Dr. Meliton Blackburn. Thank you. Problems: Subjective 24 Hr Interval Summary Awake, withdraws from pain. min drainage from GCF. nonverbal indicators of pain not present. No fevers, sz, vomiting, diarrhea. Cont on tpn. Exam/Review of Systems Vital Signs Vitals Vital Signs Date Time Temp Pulse Resp B/P Pulse Ox O2 Delivery O2 Flow Rate FiO2 06/07/17 09:00 54 16 97 30 06/07/17 07:26 98.5 117/64 06/04/17 18:00 Mechanical Ventilator Intake and Output 06/06/17 06/06/17 06/07/17 15:00 23:00 07:00 Intake Total 0 ml Output Total 300 ml Balance -300 ml Exam Free Text/Dictation Constitutional: non-verbal, awake, nonresponsive, ill-appearing No oriented Psych: confusion, withdraws from pain Head: atraumatic, normocephalic Eyes: nl sclera ENMT: mucosa pink and moist, missing teeth Neck: non-tender, other (trach), supple Respiratory: diminished Cardiovascular: edema Gastrointestinal: distended (mod), other (stoma with min/mod yellow/green drainage to ostomy bag), soft, nontender Musculoskeletal: No muscle tone Extremities: edema worsened Neurological: No nl mental status, No nl speech Skin: other (abdominal/peristomal/breast fold redness improved) Results Result Diagram: 06/06/17 0646 06/06/17 0646 SHADI CALDERON NP Jun 07, 2017 10:14
--- NOTE | 2017-06-07 12:12 | CONS ---
Date/Time of Note Date/Time of Note DATE: 06/07/17 TIME: 12:11 Consult Date/Type/Reason Admit Date/Time May 06, 2017 at 16:34 Initial Consult Date 05/10/17 Type of Consultation: Pulmonary Ordering Provider: OSMAR MONTAGUE DO Subjective No new events. Patient remains stable Objective Vital Signs Date Time Temp Pulse Resp B/P Pulse Ox O2 Delivery O2 Flow Rate FiO2 06/07/17 11:45 98.1 56 18 153/78 97 06/07/17 11:15 30 06/04/17 18:00 Mechanical Ventilator Intake and Output 06/06/17 06/06/17 06/07/17 14:59 22:59 06:59 Intake Total 0 ml Output Total 300 ml Balance -300 ml Exam PHYSICAL EXAMINATION GENERAL: Elderly lady chronically ill-appearing on mechanical ventilation via tracheostomy VITAL SIGNS: see below. HEENT: Pupils equal, round, and reactive to light. Tracheostomy site clean and intact. CARDIAC: S1, S2, 2/6 systolic ejection murmur CHEST: Diminished air entry bilaterally. ABDOMEN: Mildly distended. Bowel sounds present no guarding or rebound EXTREMITIES: No cyanosis, clubbing edema +2 NEUROLOGIC: Generalized weakness Results/Medications Result Diagram: 06/06/17 0646 06/06/17 0646 Results 24 hrs Laboratory Tests Test 06/06/17 13:17 06/06/17 17:09 06/06/17 20:29 06/07/17 01:26 Bedside Glucose 98 115 115 107 Test 06/07/17 05:05 06/07/17 07:48 Bedside Glucose 103 90 Medications Current Medications Atorvastatin Calcium (Lipitor) 10 mg QHS GTB Last administered on 05/19/17 21: 00; Admin Dose 10 MG; Start 05/06/17 at 21:00 Bisacodyl (Dulcolax Supp) 10 mg Q48H [place] Last administered on 06/05/17 16:23; Admin Dose 10 MG; Start 05/06/17 at 17:00 Carbidopa/Levodopa (Sinemet (25/ 100)) 1 tab TID GTB Last administered on 22:02; Admin Dose 1 TAB; Start 05/06/17 at 21:00 Donepezil HCl (Aricept) 10 mg QHS GTB Last administered on 05/19/17 21:00; Admin Dose 10 MG; Start 05/06/17 at 21:00 Ferrous Sulfate (Ferrous Sulfate (Ec)) 325 mg BID PO Last administered on 09:09; Admin Dose 325 MG; Start 05/06/17 at 21:00 Folic Acid (Folic Acid) 1 mg DAILY GTB Last administered on 05/22/17 09:09; Admin Dose 1 MG; Start 05/07/17 at 09:00 Lactobacillus Acidophilus/ Rhamnosus (Culturelle) 1 cap QHS GTB Last administered on 05/19/17 21:00; Admin Dose 1 CAP; Start 05/06/17 at 21:00 Magnesium Hydroxide (Milk Of Mag) 30 ml Q24H GTB Last administered on 05/22/17 16:38; Admin Dose 30 ML; Start 05/06/17 at 17:00 Memantine (Namenda) 5 mg QAM GTB Last administered on 05/22/17 09:10; Admin Dose 5 MG; Start 05/07/17 at 09:00 Multivit/Ca Carb/ B Cmplx/FA/Prenat (Radhika-John) 1 tab DAILY GTB Last administered on 05/22/17 09:09; Admin Dose 1 TAB; Start 05/07/17 at 09:00 Pramipexole (Mirapex) 0.5 mg DAILY GTB Last administered on 05/22/17 09:09; Admin Dose 0.5 MG; Start 05/07/17 at 09:00 Sodium Biphosphate/ Sodium Phosphate (Fleet Enema Pediatric) 118 ml Q72H PRN [place] CONSTIPATION; Start 05/06/17 at 17:00 Citric Acid/ Sodium Citrate (Bicitra) 30 ml BID PO Last administered on 09:09; Admin Dose 30 ML; Start 05/06/17 at 21:00 Nystatin (Nystatin Powder) 1 applic BID TOP Last administered on 06/07/17 08: 53; Admin Dose 1 APPLIC; Start 05/09/17 at 21:00 Collagenase (Santyl) 1 applic DAILY TOP Last administered on 06/07/17 08:47; Admin Dose 1 APPLIC; Start 05/09/17 at 15:00 Collagenase (Santyl) 1 applic PRN PRN TOP WOUND CARE; Start 05/09/17 at 14:00 Miscellaneous Information 1 ea NOTE XX ; Start 05/11/17 at 08:00 Glucose (Glutose) 15 gm Q15M PRN PO DECREASED GLUCOSE; Start 05/11/17 at 08:00 Glucose (Glutose) 22.5 gm Q15M PRN PO DECREASED GLUCOSE; Start 05/11/17 at 08: 00 Dextrose (D50w Syringe) 25 ml Q15M PRN IV DECREASED GLUCOSE Last administered on 05/28/17 00:53; Admin Dose 25 ML; Start 05/11/17 at 08:00 Dextrose (D50w Syringe) 50 ml Q15M PRN IV DECREASED GLUCOSE Last administered on 05/15/17 00:11; Admin Dose 50 ML; Start 05/11/17 at 08:00 Glucagon (Glucagen) 1 mg Q15M PRN IM DECREASED GLUCOSE; Start 05/11/17 at 08:00 Glucose (Glutose) 15 gm Q15M PRN BUCCAL DECREASED GLUCOSE; Start 05/11/17 at 08 :00 Epoetin Vasyl (Epogen (Esrd)) 10,000 units MoWeFr@17 SC Last administered on 16:43; Admin Dose 10,000 UNITS; Start 05/13/17 at 17:00 IV Flush (NS 10 ml) 10 ml PRN PRN IV IV PROTOCOL; Start 05/15/17 at 17:30 Midodrine (Proamatine) 10 mg TID@,,17 GTB ; Start 05/23/17 at 09:00 Heparin Sodium (Porcine) (Heparin (5000 Units/0.5 ml)) 5,000 unit BID SC Last administered on 06/07/17 08:52; Admin Dose 5,000 UNIT; Start 05/23/17 at 09:00 Insulin Aspart NOVOLOG *MILD* ALGORI... Q4 SC Last administered on 06/01/17 21 :32; Admin Dose 1 UNIT; Start 05/26/17 at 09:00 Total Parenteral Nutrition 1,000 ml @ 40 mls/hr Q24H IV Last administered on 13:19; Admin Dose 40 MLS/HR; Start 05/27/17 at 14:00 Fat Emulsion Intravenous (Liposyn Ii 20%) 250 ml @ 31.25 mls/ hr Q24H IV Last administered on 06/07/17 09:11; Admin Dose 31.25 MLS/HR; Start 05/28/17 at 10:00 Famotidine 20 mg 20 mg DAILY IV Last administered on 06/07/17 08:47; Admin Dose 20 MG; Start 05/29/17 at 09:00 Sodium Chloride 1,000 ml @ 75 mls/hr [id number] IV Last administered on 03:16; Admin Dose 75 MLS/HR; Start 06/01/17 at 21:00 Caspofungin/ Sodium Chloride (Cancidas/NS) 250 ml @ 250 mls/hr Q24H IVPB Last administered on 06/06/17 15:04; Admin Dose 250 MLS/HR; Start 06/04/17 at 15:30 Hydrocortisone (Solu-Cortef) 10 mg Q8 IV Last administered on 06/07/17 05:10; Admin Dose 10 MG; Start 06/06/17 at 14:00 Assessment/Plan Chief Complaint/Hosp Course Additional Assessment/Plan IMP: 1. Status post septic shock now off vasopressors. 2. VDRF 3. Possible healthcare associated pneumonia 4. Cellulitis 5. Urosepsis 6. Encephalopathy chronic, vegetative state 7. STARLA 8. Anemia likely multifactorial. 9. Hyponatremia improved. RECS: 1. Monitor H&H 2. Vent support 3. Palliative Care consultation. Bioethics recs. 4. TF's/Free H20 5. dvt prophylaxis Discharge planning okay from pulmonary standpoint Problems: JARED CLAIRE MD, [facility] Jun 07, 2017 12:12
--- NOTE | 2017-06-07 12:49 | PN ---
Date/Time of Note Date/Time of Note DATE: 06/07/17 TIME: 12:49 Assessment/Plan VTE Prophylaxis VTE Prophylaxis Intervention: other Lines/Catheters IV Catheter Type (from Nrsg): PICC Line Central line still needed: Yes Urinary Cath still in place: Yes Reason Cath still needed: urinary retention Assessment/Plan Chief Complaint/Hosp Course SUBJECTIVE DATA: The patient remains critically ill. The patient is currently off pressor support. Blood pressures remain stable. Patient remains oligoanuric. No other events noted. No hemoptysis, hematemesis, hematochezia. s/p two units of packed red blood cells with stable H/H since vent settings and imaging studies were reviewed OBJECTIVE DATA: HEENT: Head is normocephalic. NECK: Supple. HEART: Regular rate. LUNGS: Diminished breath sounds at the base. ABDOMEN: Soft, nontender to palpation. Positive gastrocutaneous fistula. EXTREMITIES: Negative for clubbing, cyanosis. Positive edema. DERMATOLOGIC: No rashes. MUSCULOSKELETAL: No joint effusion. NEUROLOGIC: No change in exam. MEDICATIONS: Reviewed. assessment and plan: 1. Septic shock, etiology is multifactorial. The patient has currently been weaned off pressors. Will continue current treatment plan. Antibiotics, continue IV fluids. Continue to monitor. continues to be hypothermic 2. Anemia. s/p transfusion 3. Questionable adrenal insufficiency. The patient was placed on stress steroids, now being tapered off. Appreciate endocrine evaluation. 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 Follow up with General Surgery. 5. Oligoanuric acute kidney injury on top of chronic kidney disease stage IV. Etiology secondary to ATN, septic and septic acute kidney injury. Plan is to give diuretic challenge. dialysis is futile in this patient 6. Ventilatory-dependent respiratory failure. Vent settings reviewed. ABGs reviewed. Continue to monitor. 7. Hyponatremia, etiology secondary to acute kidney injury in conjunction with hypotonic fluids. The patient's sodium levels have slowly been improving. Continue to monitor. 8. Acute encephalopathy and advanced dementia, etiology toxic metabolic. 9. Volume overload, etiology secondary to chronic kidney disease, catheter leak. The patient be given diuretic challenge. Will monitor closely. 10. Diabetes. Continue Accu-Cheks and sliding scale. 11. Nutrition. Continue total parenteral nutrition. She has a GCF which is healing very slowly 12. Decubitus wound. Continue wound care. 13. Metabolic acidosis secondary to acute kidney injury. The patient's ABG shows appropriate compensation. Will continue to monitor. Problems: Exam/Review of Systems Vital Signs Vitals Vital Signs Date Time Temp Pulse Resp B/P Pulse Ox O2 Delivery O2 Flow Rate FiO2 06/07/17 12:34 55 06/07/17 11:45 98.1 18 153/78 97 06/07/17 11:15 30 06/04/17 18:00 Mechanical Ventilator Intake and Output 06/06/17 06/06/17 06/07/17 15:00 23:00 07:00 Intake Total 0 ml Output Total 300 ml Balance -300 ml Results Result Diagram: 06/06/17 0646 06/06/17 0646 Results 24 hrs Laboratory Tests Test 06/06/17 13:17 06/06/17 17:09 06/06/17 20:29 06/07/17 01:26 Bedside Glucose 98 115 115 107 Test 06/07/17 05:05 06/07/17 07:48 06/07/17 12:24 Bedside Glucose 103 90 99 Medications Medications Current Medications Atorvastatin Calcium (Lipitor) 10 mg QHS GTB Last administered on 05/19/17 21: 00; Admin Dose 10 MG; Start 05/06/17 at 21:00 Bisacodyl (Dulcolax Supp) 10 mg Q48H [place] Last administered on 06/05/17 16:23; Admin Dose 10 MG; Start 05/06/17 at 17:00 Carbidopa/Levodopa (Sinemet (25/ 100)) 1 tab TID GTB Last administered on 22:02; Admin Dose 1 TAB; Start 05/06/17 at 21:00 Donepezil HCl (Aricept) 10 mg QHS GTB Last administered on 05/19/17 21:00; Admin Dose 10 MG; Start 05/06/17 at 21:00 Ferrous Sulfate (Ferrous Sulfate (Ec)) 325 mg BID PO Last administered on 09:09; Admin Dose 325 MG; Start 05/06/17 at 21:00 Folic Acid (Folic Acid) 1 mg DAILY GTB Last administered on 05/22/17 09:09; Admin Dose 1 MG; Start 05/07/17 at 09:00 Lactobacillus Acidophilus/ Rhamnosus (Culturelle) 1 cap QHS GTB Last administered on 05/19/17 21:00; Admin Dose 1 CAP; Start 05/06/17 at 21:00 Magnesium Hydroxide (Milk Of Mag) 30 ml Q24H GTB Last administered on 05/22/17 16:38; Admin Dose 30 ML; Start 05/06/17 at 17:00 Memantine (Namenda) 5 mg QAM GTB Last administered on 05/22/17 09:10; Admin Dose 5 MG; Start 05/07/17 at 09:00 Multivit/Ca Carb/ B Cmplx/FA/Prenat (Radhika-John) 1 tab DAILY GTB Last administered on 05/22/17 09:09; Admin Dose 1 TAB; Start 05/07/17 at 09:00 Pramipexole (Mirapex) 0.5 mg DAILY GTB Last administered on 05/22/17 09:09; Admin Dose 0.5 MG; Start 05/07/17 at 09:00 Sodium Biphosphate/ Sodium Phosphate (Fleet Enema Pediatric) 118 ml Q72H PRN [place] CONSTIPATION; Start 05/06/17 at 17:00 Citric Acid/ Sodium Citrate (Bicitra) 30 ml BID PO Last administered on 09:09; Admin Dose 30 ML; Start 05/06/17 at 21:00 Nystatin (Nystatin Powder) 1 applic BID TOP Last administered on 06/07/17 08: 53; Admin Dose 1 APPLIC; Start 05/09/17 at 21:00 Collagenase (Santyl) 1 applic DAILY TOP Last administered on 06/07/17 08:47; Admin Dose 1 APPLIC; Start 05/09/17 at 15:00 Collagenase (Santyl) 1 applic PRN PRN TOP WOUND CARE; Start 05/09/17 at 14:00 Miscellaneous Information 1 ea NOTE XX ; Start 05/11/17 at 08:00 Glucose (Glutose) 15 gm Q15M PRN PO DECREASED GLUCOSE; Start 05/11/17 at 08:00 Glucose (Glutose) 22.5 gm Q15M PRN PO DECREASED GLUCOSE; Start 05/11/17 at 08: 00 Dextrose (D50w Syringe) 25 ml Q15M PRN IV DECREASED GLUCOSE Last administered on 05/28/17 00:53; Admin Dose 25 ML; Start 05/11/17 at 08:00 Dextrose (D50w Syringe) 50 ml Q15M PRN IV DECREASED GLUCOSE Last administered on 05/15/17 00:11; Admin Dose 50 ML; Start 05/11/17 at 08:00 Glucagon (Glucagen) 1 mg Q15M PRN IM DECREASED GLUCOSE; Start 05/11/17 at 08:00 Glucose (Glutose) 15 gm Q15M PRN BUCCAL DECREASED GLUCOSE; Start 05/11/17 at 08 :00 Epoetin Vasyl (Epogen (Esrd)) 10,000 units MoWeFr@17 SC Last administered on 16:43; Admin Dose 10,000 UNITS; Start 05/13/17 at 17:00 IV Flush (NS 10 ml) 10 ml PRN PRN IV IV PROTOCOL; Start 05/15/17 at 17:30 Midodrine (Proamatine) 10 mg TID@09,,17 GTB ; Start 05/23/17 at 09:00 Heparin Sodium (Porcine) (Heparin (5000 Units/0.5 ml)) 5,000 unit BID SC Last administered on 06/07/17 08:52; Admin Dose 5,000 UNIT; Start 05/23/17 at 09:00 Insulin Aspart NOVOLOG *MILD* ALGORI... Q4 SC Last administered on 06/01/17 21 :32; Admin Dose 1 UNIT; Start 05/26/17 at 09:00 Total Parenteral Nutrition 1,000 ml @ 40 mls/hr Q24H IV Last administered on 13:19; Admin Dose 40 MLS/HR; Start 05/27/17 at 14:00 Fat Emulsion Intravenous (Liposyn Ii 20%) 250 ml @ 31.25 mls/ hr Q24H IV Last administered on 06/07/17 09:11; Admin Dose 31.25 MLS/HR; Start 05/28/17 at 10:00 Famotidine 20 mg 20 mg DAILY IV Last administered on 06/07/17 08:47; Admin Dose 20 MG; Start 05/29/17 at 09:00 Sodium Chloride 1,000 ml @ 75 mls/hr [id number] IV Last administered on 03:16; Admin Dose 75 MLS/HR; Start 06/01/17 at 21:00 Caspofungin/ Sodium Chloride (Cancidas/NS) 250 ml @ 250 mls/hr Q24H IVPB Last administered on 06/06/17 15:04; Admin Dose 250 MLS/HR; Start 06/04/17 at 15:30 Hydrocortisone (Solu-Cortef) 10 mg Q8 IV Last administered on 06/07/17 05:10; Admin Dose 10 MG; Start 06/06/17 at 14:00 DELIA FINE DO Jun 07, 2017 12:49
[2017-06-07] MEDS: TPN 1,000 ML IV SCH (13:56)
--- NOTE | 2017-06-07 14:47 | CONS ---
Date/Time of Note Date/Time of Note DATE: 06/07/17 TIME: 14:45 Assessment/Plan Assessment/Plan Chief Complaint/Hosp Course SUBJECTIVE DATA: No acute changes. Remains obtunded, nad MICROBIOLOGY: Blood culture since June 03 is negative. Urine culture growing Gillian albicans. Abx: Cancidas INDWELLING: Trach, PICC line, and Collazo. PHYSICAL EXAMINATION: GENERAL: Chronically ill-appearing, elderly woman, who is nonverbal, noncommunicative, in no distress. HEENT: Head atraumatic, normocephalic. Sclerae anicteric. Buccal mucosa dry. NECK: Supple. Tracheostomy present. CHEST: Rise symmetrical. Breath sounds with bilateral scattered crackles. HEART: S1, S2. ABDOMEN: Soft, distended. Bowel sounds hypoactive. EXTREMITIES: With bilateral edema. SKIN: With generalized edema and erythema. ASSESSMENT: 1. Status post shock, multifactorial. 2. Gillian albicans urinary tract infection (UTI). 3. S/p Healthcare associated pneumonia 4. G-tube malfunction. 5. Chronic encephalopathy. 6. Acute on chronic kidney disease. 7. Diabetes. PLAN: Remains unchanged, continue present care, cano cx prn, poss tx to [facility] staff Problems: Consultation Date/Type/Reason Admit Date/Time May 06, 2017 at 16:34 Initial Consult Date 05/09/17 Type of Consultation: ID Referring Provider: OSMAR MONTAGUE DO Exam/Review of Systems Vital Signs Vitals Vital Signs Date Time Temp Pulse Resp B/P Pulse Ox O2 Delivery O2 Flow Rate FiO2 06/07/17 13:15 58 16 98 30 06/07/17 11:45 98.1 153/78 06/04/17 18:00 Mechanical Ventilator Intake and Output 06/06/17 06/06/17 06/07/17 15:00 23:00 07:00 Intake Total 0 ml Output Total 300 ml Balance -300 ml Results Result Diagram: 06/06/17 0646 06/06/17 0646 Results 24 hrs Laboratory Tests Test 06/06/17 17:09 06/06/17 20:29 06/07/17 01:26 06/07/17 05:05 Bedside Glucose 115 115 107 103 Test 06/07/17 07:48 06/07/17 12:24 Bedside Glucose 90 99 Medications Medications Current Medications Atorvastatin Calcium (Lipitor) 10 mg QHS GTB Last administered on 05/19/17 21: 00; Admin Dose 10 MG; Start 05/06/17 at 21:00 Bisacodyl (Dulcolax Supp) 10 mg Q48H NV Last administered on 06/05/17 16:23; Admin Dose 10 MG; Start 05/06/17 at 17:00 Carbidopa/Levodopa (Sinemet (25/ 100)) 1 tab TID GTB Last administered on 22:02; Admin Dose 1 TAB; Start 05/06/17 at 21:00 Donepezil HCl (Aricept) 10 mg QHS GTB Last administered on 05/19/17 21:00; Admin Dose 10 MG; Start 05/06/17 at 21:00 Ferrous Sulfate (Ferrous Sulfate (Ec)) 325 mg BID PO Last administered on 09:09; Admin Dose 325 MG; Start 05/06/17 at 21:00 Folic Acid (Folic Acid) 1 mg DAILY GTB Last administered on 05/22/17 09:09; Admin Dose 1 MG; Start 05/07/17 at 09:00 Lactobacillus Acidophilus/ Rhamnosus (Culturelle) 1 cap QHS GTB Last administered on 05/19/17 21:00; Admin Dose 1 CAP; Start 05/06/17 at 21:00 Magnesium Hydroxide (Milk Of Mag) 30 ml Q24H GTB Last administered on 05/22/17 16:38; Admin Dose 30 ML; Start 05/06/17 at 17:00 Memantine (Namenda) 5 mg QAM GTB Last administered on 05/22/17 09:10; Admin Dose 5 MG; Start 05/07/17 at 09:00 Multivit/Ca Carb/ B Cmplx/FA/Prenat (Radhika-John) 1 tab DAILY GTB Last administered on 05/22/17 09:09; Admin Dose 1 TAB; Start 05/07/17 at 09:00 Pramipexole (Mirapex) 0.5 mg DAILY GTB Last administered on 05/22/17 09:09; Admin Dose 0.5 MG; Start 05/07/17 at 09:00 Sodium Biphosphate/ Sodium Phosphate (Fleet Enema Pediatric) 118 ml Q72H PRN NV CONSTIPATION; Start 05/06/17 at 17:00 Citric Acid/ Sodium Citrate (Bicitra) 30 ml BID PO Last administered on 09:09; Admin Dose 30 ML; Start 05/06/17 at 21:00 Nystatin (Nystatin Powder) 1 applic BID TOP Last administered on 06/07/17 08: 53; Admin Dose 1 APPLIC; Start 05/09/17 at 21:00 Collagenase (Santyl) 1 applic DAILY TOP Last administered on 06/07/17 08:47; Admin Dose 1 APPLIC; Start 05/09/17 at 15:00 Collagenase (Santyl) 1 applic PRN PRN TOP WOUND CARE; Start 05/09/17 at 14:00 Miscellaneous Information 1 ea NOTE XX ; Start 05/11/17 at 08:00 Glucose (Glutose) 15 gm Q15M PRN PO DECREASED GLUCOSE; Start 05/11/17 at 08:00 Glucose (Glutose) 22.5 gm Q15M PRN PO DECREASED GLUCOSE; Start 05/11/17 at 08: 00 Dextrose (D50w Syringe) 25 ml Q15M PRN IV DECREASED GLUCOSE Last administered on 05/28/17 00:53; Admin Dose 25 ML; Start 05/11/17 at 08:00 Dextrose (D50w Syringe) 50 ml Q15M PRN IV DECREASED GLUCOSE Last administered on 05/15/17 00:11; Admin Dose 50 ML; Start 05/11/17 at 08:00 Glucagon (Glucagen) 1 mg Q15M PRN IM DECREASED GLUCOSE; Start 05/11/17 at 08:00 Glucose (Glutose) 15 gm Q15M PRN BUCCAL DECREASED GLUCOSE; Start 05/11/17 at 08 :00 Epoetin Vasyl (Epogen (Esrd)) 10,000 units MoWeFr@17 SC Last administered on 16:43; Admin Dose 10,000 UNITS; Start 05/13/17 at 17:00 IV Flush (NS 10 ml) 10 ml PRN PRN IV IV PROTOCOL; Start 05/15/17 at 17:30 Midodrine (Proamatine) 10 mg TID@,,17 GTB ; Start 05/23/17 at 09:00 Heparin Sodium (Porcine) (Heparin (5000 Units/0.5 ml)) 5,000 unit BID SC Last administered on 06/07/17 08:52; Admin Dose 5,000 UNIT; Start 05/23/17 at 09:00 Insulin Aspart NOVOLOG *MILD* ALGORI... Q4 SC Last administered on 06/01/17 21 :32; Admin Dose 1 UNIT; Start 05/26/17 at 09:00 Total Parenteral Nutrition 1,000 ml @ 40 mls/hr Q24H IV Last administered on 13:56; Admin Dose 40 MLS/HR; Start 05/27/17 at 14:00 Fat Emulsion Intravenous (Liposyn Ii 20%) 250 ml @ 31.25 mls/ hr Q24H IV Last administered on 06/07/17 09:11; Admin Dose 31.25 MLS/HR; Start 05/28/17 at 10:00 Famotidine 20 mg 20 mg DAILY IV Last administered on 06/07/17 08:47; Admin Dose 20 MG; Start 05/29/17 at 09:00 Sodium Chloride 1,000 ml @ 75 mls/hr [id number] IV Last administered on 03:16; Admin Dose 75 MLS/HR; Start 06/01/17 at 21:00 Caspofungin/ Sodium Chloride (Cancidas/NS) 250 ml @ 250 mls/hr Q24H IVPB Last administered on 06/06/17 15:04; Admin Dose 250 MLS/HR; Start 06/04/17 at 15:30 Hydrocortisone (Solu-Cortef) 10 mg Q8 IV Last administered on 06/07/17 13:57; Admin Dose 10 MG; Start 06/06/17 at 14:00 DOROTHY CORONADO NP Jun 07, 2017 14:47
[2017-06-07] MEDS: MAGNESIUM HYDROXIDE 30ML CUP GTB SCH (16:09)
[2017-06-07] MEDS: CASPOFUNGIN 50 MG in SOD CHLORIDE 0.9% 250 ML IVPB SCH (16:09)
[2017-06-07] MEDS: BISACODYL 10 MG SUPP PR SCH (17:24)
[2017-06-07] MEDS: EPOETIN 10000 UNITS/1 ML INJ (ESRD) SC SCH (17:25)
--- NOTE | 2017-06-07 18:23 | CONS ---
Date/Time of Note Date/Time of Note DATE: 06/07/17 TIME: 18:23 Consult Date/Type/Reason Admit Date/Time May 06, 2017 at 16:34 Initial Consult Date 05/22/17 Type of Consultation: ID Ordering Provider: OSMAR MONTAGUE DO Subjective CARDIOLOGY FOLLOW UP NOTE: Discussed with staff and rhythm was reviewed. Pt remains in NSR. no more Afib pt remains in NSR. NO AFIB seen pt remains NONVERBAL. pt is TELE now OBJECTIVE: General: no acute distress. s/p trach on vent. HEENT: NC/AT. NECK: NO JVD. no stridor. S/P trach on vent CV: RRR. systolic murmur; no gallop or rubs. PULM: no wheezing anteriorly GI: SOFT, NT, ND, no rebound or guarding s/p dressing at the site of previous G tube Extremity: + B/L LE and UE edema. no clubbing. neuro: opens her eyes to painful stimuli. does not follow commands Psych: calm rectal: deferred Objective Vital Signs Date Time Temp Pulse Resp B/P Pulse Ox O2 Delivery O2 Flow Rate FiO2 06/07/17 17:15 54 16 97 30 06/07/17 15:14 97.8 148/72 06/04/17 18:00 Mechanical Ventilator Intake and Output 06/06/17 06/06/17 06/07/17 15:00 23:00 07:00 Intake Total 0 ml Output Total 300 ml Balance -300 ml Results/Medications Result Diagram: 06/06/17 0646 06/06/17 0646 Results 24 hrs Laboratory Tests Test 06/06/17 20:29 06/07/17 01:26 06/07/17 05:05 06/07/17 07:48 Bedside Glucose 115 107 103 90 Test 06/07/17 12:24 06/07/17 17:23 Bedside Glucose 99 114 Medications Current Medications Atorvastatin Calcium (Lipitor) 10 mg QHS GTB Last administered on 05/19/17 21: 00; Admin Dose 10 MG; Start 05/06/17 at 21:00 Bisacodyl (Dulcolax Supp) 10 mg Q48H NV Last administered on 06/07/17 17:24; Admin Dose 10 MG; Start 05/06/17 at 17:00 Carbidopa/Levodopa (Sinemet (25/ 100)) 1 tab TID GTB Last administered on 22:02; Admin Dose 1 TAB; Start 05/06/17 at 21:00 Donepezil HCl (Aricept) 10 mg QHS GTB Last administered on 05/19/17 21:00; Admin Dose 10 MG; Start 05/06/17 at 21:00 Ferrous Sulfate (Ferrous Sulfate (Ec)) 325 mg BID PO Last administered on 09:09; Admin Dose 325 MG; Start 05/06/17 at 21:00 Folic Acid (Folic Acid) 1 mg DAILY GTB Last administered on 05/22/17 09:09; Admin Dose 1 MG; Start 05/07/17 at 09:00 Lactobacillus Acidophilus/ Rhamnosus (Culturelle) 1 cap QHS GTB Last administered on 05/19/17 21:00; Admin Dose 1 CAP; Start 05/06/17 at 21:00 Magnesium Hydroxide (Milk Of Mag) 30 ml Q24H GTB Last administered on 05/22/17 16:38; Admin Dose 30 ML; Start 05/06/17 at 17:00 Memantine (Namenda) 5 mg QAM GTB Last administered on 05/22/17 09:10; Admin Dose 5 MG; Start 05/07/17 at 09:00 Multivit/Ca Carb/ B Cmplx/FA/Prenat (Radhika-John) 1 tab DAILY GTB Last administered on 05/22/17 09:09; Admin Dose 1 TAB; Start 05/07/17 at 09:00 Pramipexole (Mirapex) 0.5 mg DAILY GTB Last administered on 05/22/17 09:09; Admin Dose 0.5 MG; Start 05/07/17 at 09:00 Sodium Biphosphate/ Sodium Phosphate (Fleet Enema Pediatric) 118 ml Q72H PRN NV CONSTIPATION; Start 05/06/17 at 17:00 Citric Acid/ Sodium Citrate (Bicitra) 30 ml BID PO Last administered on 09:09; Admin Dose 30 ML; Start 05/06/17 at 21:00 Nystatin (Nystatin Powder) 1 applic BID TOP Last administered on 06/07/17 08: 53; Admin Dose 1 APPLIC; Start 05/09/17 at 21:00 Collagenase (Santyl) 1 applic DAILY TOP Last administered on 06/07/17 08:47; Admin Dose 1 APPLIC; Start 05/09/17 at 15:00 Collagenase (Santyl) 1 applic PRN PRN TOP WOUND CARE; Start 05/09/17 at 14:00 Miscellaneous Information 1 ea NOTE XX ; Start 05/11/17 at 08:00 Glucose (Glutose) 15 gm Q15M PRN PO DECREASED GLUCOSE; Start 05/11/17 at 08:00 Glucose (Glutose) 22.5 gm Q15M PRN PO DECREASED GLUCOSE; Start 05/11/17 at 08: 00 Dextrose (D50w Syringe) 25 ml Q15M PRN IV DECREASED GLUCOSE Last administered on 05/28/17 00:53; Admin Dose 25 ML; Start 05/11/17 at 08:00 Dextrose (D50w Syringe) 50 ml Q15M PRN IV DECREASED GLUCOSE Last administered on 05/15/17 00:11; Admin Dose 50 ML; Start 05/11/17 at 08:00 Glucagon (Glucagen) 1 mg Q15M PRN IM DECREASED GLUCOSE; Start 05/11/17 at 08:00 Glucose (Glutose) 15 gm Q15M PRN BUCCAL DECREASED GLUCOSE; Start 05/11/17 at 08 :00 Epoetin Vasyl (Epogen (Esrd)) 10,000 units MoWeFr@17 SC Last administered on 17:25; Admin Dose 10,000 UNITS; Start 05/13/17 at 17:00 IV Flush (NS 10 ml) 10 ml PRN PRN IV IV PROTOCOL; Start 05/15/17 at 17:30 Midodrine (Proamatine) 10 mg TID@,,17 GTB ; Start 05/23/17 at 09:00 Heparin Sodium (Porcine) (Heparin (5000 Units/0.5 ml)) 5,000 unit BID SC Last administered on 06/07/17 08:52; Admin Dose 5,000 UNIT; Start 05/23/17 at 09:00 Insulin Aspart NOVOLOG *MILD* ALGORI... Q4 SC Last administered on 06/01/17 21 :32; Admin Dose 1 UNIT; Start 05/26/17 at 09:00 Total Parenteral Nutrition 1,000 ml @ 40 mls/hr Q24H IV Last administered on 13:56; Admin Dose 40 MLS/HR; Start 05/27/17 at 14:00 Fat Emulsion Intravenous (Liposyn Ii 20%) 250 ml @ 31.25 mls/ hr Q24H IV Last administered on 06/07/17 09:11; Admin Dose 31.25 MLS/HR; Start 05/28/17 at 10:00 Famotidine 20 mg 20 mg DAILY IV Last administered on 06/07/17 08:47; Admin Dose 20 MG; Start 05/29/17 at 09:00 Sodium Chloride 1,000 ml @ 75 mls/hr [id number] IV Last administered on 03:16; Admin Dose 75 MLS/HR; Start 06/01/17 at 21:00 Caspofungin/ Sodium Chloride (Cancidas/NS) 250 ml @ 250 mls/hr Q24H IVPB Last administered on 06/07/17 16:09; Admin Dose 250 MLS/HR; Start 06/04/17 at 15:30 Hydrocortisone (Solu-Cortef) 10 mg Q8 IV Last administered on 06/07/17 13:57; Admin Dose 10 MG; Start 06/06/17 at 14:00 Assessment/Plan Chief Complaint/Hosp Course 1. hypoxemic resp failure: s/p trach 2. Pafib; currently in NSR 3. hx HTN: 4. encephalopathy 5. renal failure: f/u with nephrology 6. dysphagia 7. G tube malfunction/ infection: unable to repair by GI. 8. GI bleed 9. severe anemia 10. malnutrition 11. anasarca and fluid overload. cont resp care nutritional support. correct lytes prn off of PLAVIX DUE TO ANEMIA/ BLEEDING. pt is also NPO and unable to take po meds. F/U with GI and surgery rec. nutritional support will be continued . CODE STATUS IS chemical code only now. THANK YOU. Problems: MILAGROS MUNOZ MD Jun 07, 2017 18:23
[2017-06-07] MEDS: ATORVASTATIN 10 MG TAB GTB SCH (20:33)
[2017-06-07] MEDS: LACTOBACILLUS RHAMNOSUS CAP GTB SCH (20:33)
[2017-06-07] MEDS: DONEPEZIL 10 MG TAB GTB SCH (20:33)
--- NOTE | 2017-06-07 20:49 | CONS ---
Date/Time of Note Date/Time of Note DATE: 06/07/17 TIME: 20:47 Assessment/Plan Assessment/Plan Chief Complaint/Hosp Course This 69-year-old female with a history of CVA vent dependent respiratory failure , was brought to the emergency room for the dislodgment of the GJ tube. Patient is nonverbal and no information can be obtained. No GI bleeding no chest pain no shortness of breath. Problems: Additional Assessment/Plan Additional Assessment/Plan Additional Assessment/Plan 1. Dislodged GJ tube accidentally 2. Vent dependent respiratory failure 3. Chronic encephalopathy 4. Renal failure 5. Peripheral vascular disease 6. Anemia, secondary to chronic disease no evidence of active bleeding 7. Large gastrocutaneous fistula, endoscopically it is not possible to keep the largest diameter GJ tube in place 8. Hypotension, corrected patient is off dopamine for more than 24 hours 9. Decubitus ulcer 10. Workup for adrenal insufficiency, patient is on steroid now and off dopamine 11. Sepsis Plan Continue all supportive care Surgery to fix the gastrocutaneous fistula once patient is off dopamine Blood transfusion Monitor for acute overt GI bleeding Consultation Date/Type/Reason Admit Date/Time May 06, 2017 at 16:34 Type of Consultation: ID Referring Provider: OSMAR MONTAGUE DO 24 HR Interval Summary Subjective hx not possible: pt non-verbal, pt critical Exam/Review of Systems Vital Signs Vitals Vital Signs Date Time Temp Pulse Resp B/P Pulse Ox O2 Delivery O2 Flow Rate FiO2 06/07/17 20:05 56 16 98 30 06/07/17 20:00 97.5 161/70 06/04/17 18:00 Mechanical Ventilator Intake and Output 06/06/17 06/06/17 06/07/17 15:00 23:00 07:00 Intake Total 0 ml Output Total 300 ml Balance -300 ml Exam Neck: non-tender, supple Respiratory: other (On vent) Gastrointestinal: nl liver, spleen, non-tender, other (Discharge from the G- tube site reduced), soft Extremities: normal pulses Neurological: unresponsive Results Result Diagram: 06/06/17 0646 06/06/17 0646 Results 24 hrs Laboratory Tests Test 06/07/17 01:26 06/07/17 05:05 06/07/17 07:48 06/07/17 12:24 Bedside Glucose 107 103 90 99 Test 06/07/17 17:23 06/07/17 20:30 Bedside Glucose 114 121 Medications Medications Current Medications Atorvastatin Calcium (Lipitor) 10 mg QHS GTB Last administered on 05/19/17 21: 00; Admin Dose 10 MG; Start 05/06/17 at 21:00 Bisacodyl (Dulcolax Supp) 10 mg Q48H MO Last administered on 06/07/17 17:24; Admin Dose 10 MG; Start 05/06/17 at 17:00 Carbidopa/Levodopa (Sinemet (25/ 100)) 1 tab TID GTB Last administered on 22:02; Admin Dose 1 TAB; Start 05/06/17 at 21:00 Donepezil HCl (Aricept) 10 mg QHS GTB Last administered on 05/19/17 21:00; Admin Dose 10 MG; Start 05/06/17 at 21:00 Ferrous Sulfate (Ferrous Sulfate (Ec)) 325 mg BID PO Last administered on 09:09; Admin Dose 325 MG; Start 05/06/17 at 21:00 Folic Acid (Folic Acid) 1 mg DAILY GTB Last administered on 05/22/17 09:09; Admin Dose 1 MG; Start 05/07/17 at 09:00 Lactobacillus Acidophilus/ Rhamnosus (Culturelle) 1 cap QHS GTB Last administered on 05/19/17 21:00; Admin Dose 1 CAP; Start 05/06/17 at 21:00 Magnesium Hydroxide (Milk Of Mag) 30 ml Q24H GTB Last administered on 05/22/17 16:38; Admin Dose 30 ML; Start 05/06/17 at 17:00 Memantine (Namenda) 5 mg QAM GTB Last administered on 05/22/17 09:10; Admin Dose 5 MG; Start 05/07/17 at 09:00 Multivit/Ca Carb/ B Cmplx/FA/Prenat (Radhika-John) 1 tab DAILY GTB Last administered on 05/22/17 09:09; Admin Dose 1 TAB; Start 05/07/17 at 09:00 Pramipexole (Mirapex) 0.5 mg DAILY GTB Last administered on 05/22/17 09:09; Admin Dose 0.5 MG; Start 05/07/17 at 09:00 Sodium Biphosphate/ Sodium Phosphate (Fleet Enema Pediatric) 118 ml Q72H PRN [place] CONSTIPATION; Start 05/06/17 at 17:00 Citric Acid/ Sodium Citrate (Bicitra) 30 ml BID PO Last administered on 09:09; Admin Dose 30 ML; Start 05/06/17 at 21:00 Nystatin (Nystatin Powder) 1 applic BID TOP Last administered on 06/07/17 20: 34; Admin Dose 1 APPLIC; Start 05/09/17 at 21:00 Collagenase (Santyl) 1 applic DAILY TOP Last administered on 06/07/17 08:47; Admin Dose 1 APPLIC; Start 05/09/17 at 15:00 Collagenase (Santyl) 1 applic PRN PRN TOP WOUND CARE; Start 05/09/17 at 14:00 Miscellaneous Information 1 ea NOTE XX ; Start 05/11/17 at 08:00 Glucose (Glutose) 15 gm Q15M PRN PO DECREASED GLUCOSE; Start 05/11/17 at 08:00 Glucose (Glutose) 22.5 gm Q15M PRN PO DECREASED GLUCOSE; Start 05/11/17 at 08: 00 Dextrose (D50w Syringe) 25 ml Q15M PRN IV DECREASED GLUCOSE Last administered on 05/28/17 00:53; Admin Dose 25 ML; Start 05/11/17 at 08:00 Dextrose (D50w Syringe) 50 ml Q15M PRN IV DECREASED GLUCOSE Last administered on 05/15/17 00:11; Admin Dose 50 ML; Start 05/11/17 at 08:00 Glucagon (Glucagen) 1 mg Q15M PRN IM DECREASED GLUCOSE; Start 05/11/17 at 08:00 Glucose (Glutose) 15 gm Q15M PRN BUCCAL DECREASED GLUCOSE; Start 05/11/17 at 08 :00 Epoetin Vasyl (Epogen (Esrd)) 10,000 units MoWeFr@17 SC Last administered on 17:25; Admin Dose 10,000 UNITS; Start 05/13/17 at 17:00 IV Flush (NS 10 ml) 10 ml PRN PRN IV IV PROTOCOL; Start 05/15/17 at 17:30 Midodrine (Proamatine) 10 mg TID@,, GTB ; Start 05/23/17 at 09:00 Heparin Sodium (Porcine) (Heparin (5000 Units/0.5 ml)) 5,000 unit BID SC Last administered on 06/07/17 20:35; Admin Dose 5,000 UNIT; Start 05/23/17 at 09:00 Insulin Aspart NOVOLOG *MILD* ALGORI... Q4 SC Last administered on 06/01/17 21 :32; Admin Dose 1 UNIT; Start 05/26/17 at 09:00 Total Parenteral Nutrition 1,000 ml @ 40 mls/hr Q24H IV Last administered on 13:56; Admin Dose 40 MLS/HR; Start 05/27/17 at 14:00 Fat Emulsion Intravenous (Liposyn Ii 20%) 250 ml @ 31.25 mls/ hr Q24H IV Last administered on 06/07/17 09:11; Admin Dose 31.25 MLS/HR; Start 05/28/17 at 10:00 Famotidine 20 mg 20 mg DAILY IV Last administered on 06/07/17 08:47; Admin Dose 20 MG; Start 05/29/17 at 09:00 Sodium Chloride 1,000 ml @ 75 mls/hr [id number] IV Last administered on 03:16; Admin Dose 75 MLS/HR; Start 06/01/17 at 21:00 Caspofungin/ Sodium Chloride (Cancidas/NS) 250 ml @ 250 mls/hr Q24H IVPB Last administered on 06/07/17 16:09; Admin Dose 250 MLS/HR; Start 06/04/17 at 15:30 Hydrocortisone (Solu-Cortef) 10 mg Q8 IV Last administered on 06/07/17 13:57; Admin Dose 10 MG; Start 06/06/17 at 14:00 SYLWIA SY MD Jun 07, 2017 20:49
[2017-06-08] VITALS (24 sets, daily range): BP systolic 95–130; BP diastolic 43–62; PULSE 57–65; RESP 15–20
[2017-06-08] MEDS: INSULIN ASPART [NOVOLOG] 3 ML PEN SC SCH ×6 (01:00→21:00)
[2017-06-08] MEDS: HYDROCORTISONE 100 MG INJ IV SCH ×3 (06:40→22:53)
[2017-06-08] MEDS: SOD CHLORIDE 0.9% 1,000 ML IV SCH ×2 (07:03→12:53)
[2017-06-08 07:14] LABS: ABNORMAL IP MESSAGE 1; EOSINOPHILS # 0.1 10^3/ul (0.0-0.5); EOSINOPHILS % 2.9 % (0.0-7.0); HEMATOCRIT 30.4 % (37.0-47.0); HEMOGLOBIN 9.7 g/dl (12.0-16.0); LYMPHOCYTES # 0.6 10^3/ul (0.8-2.9); LYMPHOCYTES % 13.8 % (15.0-51.0); MEAN CORPUSCULAR HEMOGLOBIN 29.3 pg (29.0-33.0); MEAN CORPUSCULAR HGB CONC 31.9 g/dl (32.0-37.0); MEAN CORPUSCULAR VOLUME 91.8 fl (82.0-101.0); MEAN PLATELET VOLUME 10.4 fl (7.4-10.4); MONOCYTE # 0.2 10^3/ul (0.3-0.9); MONOCYTES % 5.1 % (0.0-11.0); NEUTROPHILS % 77.7 % (39.0-77.0); PLATELET COUNT 109 10^3/UL (140-415); RED BLOOD COUNT 3.31 10^6/ul (4.20-5.40); RED CELL DISTRIBUTION WIDTH 20.4 % (11.5-14.5); WHITE BLOOD COUNT 4.1 10^3/ul (4.8-10.8)
[2017-06-08 07:29] LABS: POSITIVE DIFF @See below
[2017-06-08 07:39] LABS: CALCIUM 8.4 mg/dl (8.4-10.2); CREATININE 2.25 mg/dl (0.44-1.00); MAGNESIUM 2.3 mg/dl (1.7-2.5); PHOSPHORUS 3.7 mg/dl (2.5-4.9)
[2017-06-08 07:51] LABS: POTASSIUM 2.7 mmol/L (3.5-5.1)
[2017-06-08] MEDS: FOLIC ACID 1 MG TAB GTB SCH (07:58)
[2017-06-08] MEDS: PRAMIPEXOLE 0.25 MG TAB GTB SCH (07:59)
[2017-06-08] MEDS: MEMANTINE 5 MG TAB GTB SCH (07:59)
[2017-06-08] MEDS: CARBIDOPA/LEVODOPA (25/100) TAB GTB SCH ×3 (08:00→22:52)
[2017-06-08] MEDS: MIDODRINE 5 MG TAB GTB SCH ×3 (08:00→16:53)
[2017-06-08] MEDS: MULTIVIT/CA CARB/B CMPLX/FA TAB GTB SCH (08:00)
[2017-06-08] MEDS: FERROUS SULFATE (EC) 325 MG TAB PO SCH ×2 (08:01→22:58)
[2017-06-08] MEDS: CITRIC ACID/NA CITRATE 30 ML CUP PO SCH ×2 (08:01→22:52)
[2017-06-08] MEDS: FAMOTIDINE 20 MG INJ IV SCH (08:02)
[2017-06-08] MEDS: HEPARIN 5,000 UNIT/0.5 ML VIAL SC SCH ×2 (08:07→22:53)
[2017-06-08] MEDS: NYSTATIN 30 GM POWDER BTL TOP SCH ×2 (08:09→22:58)
[2017-06-08] MEDS: COLLAGENASE 30 GM TUBE TOP SCH (08:09)
[2017-06-08] MEDS: FAT EMULSION 20% 250 ML IV SCH (09:32)
--- NOTE | 2017-06-08 11:04 | CONS ---
Date/Time of Note Date/Time of Note DATE: 06/08/17 TIME: 10:57 Assessment/Plan Assessment/Plan Problems: (1) Controlled diabetes mellitus Status: Chronic Comment: Patient remains well-controlled with her sugars on the current regimen. Please note the patient is off of steroids at this time. In addition the thyroid evaluation was normal. Continue same regimen. Qualifiers: Diabetes mellitus type: type 2 Diabetes mellitus complication status: with unspecified complications Diabetes mellitus exterminator insulin use: with senior care use Qualified Code: E11.8 - Controlled type 2 diabetes mellitus with complication, with long-term current use of insulin Consultation Date/Type/Reason Admit Date/Time May 06, 2017 at 16:34 Initial Consult Date 05/30/17 Type of Consultation: Endocrinology Reason for Consultation Diabetes mellitus; obesity; Referring Provider: OSMAR MONTAGUE DO 24 HR Interval Summary Free Text/Dictation Patient remains in same status without changes unable to give meaningful history. Subjective hx not possible: pt non-verbal Exam/Review of Systems Vital Signs Vitals Vital Signs Date Time Temp Pulse Resp B/P Pulse Ox O2 Delivery O2 Flow Rate FiO2 06/08/17 08:43 65 06/08/17 08:15 98.9 18 126/55 99 06/08/17 05:36 30 06/04/17 18:00 Mechanical Ventilator Intake and Output 06/07/17 06/07/17 06/08/17 15:00 23:00 07:00 Intake Total 1000 ml Output Total 250 ml 600 ml 250 ml Balance -250 ml -600 ml 750 ml Results As per primary team Result Diagram: 06/08/17 0634 06/08/17 0634 Results 24 hrs Laboratory Tests Test 06/07/17 12:24 06/07/17 17:23 06/07/17 20:30 06/08/17 01:01 Bedside Glucose 99 114 121 111 Test 06/08/17 05:41 06/08/17 06:34 06/08/17 07:55 Bedside Glucose 125 99 White Blood Count 4.1 #L Red Blood Count 3.31 L Hemoglobin 9.7 L Hematocrit 30.4 L Mean Corpuscular Volume 91.8 Mean Corpuscular Hemoglobin 29.3 Mean Corpuscular Hemoglobin Concent 31.9 L Red Cell Distribution Width 20.4 H Platelet Count 109 L Mean Platelet Volume 10.4 Neutrophils % 77.7 H Lymphocytes % 13.8 L Monocytes % 5.1 Eosinophils % 2.9 Basophils % 0.0 Nucleated Red Blood Cells % 0.0 Neutrophils # (Manual) 3 Lymphocytes # 0.6 L Monocytes # 0.2 L Eosinophils # 0.1 Basophils # 0.0 Nucleated Red Blood Cells # 0.0 Sodium Level 143 Potassium Level 2.7 *L Chloride Level 99 Carbon Dioxide Level 30 Anion Gap 17 H Blood Urea Nitrogen 50 H Creatinine 2.25 H Glucose Level 101 Calcium Level 8.4 Phosphorus Level 3.7 Magnesium Level 2.3 Medications Medications Current Medications Atorvastatin Calcium (Lipitor) 10 mg QHS GTB Last administered on 05/19/17 21: 00; Admin Dose 10 MG; Start 05/06/17 at 21:00 Bisacodyl (Dulcolax Supp) 10 mg Q48H [place] Last administered on 06/07/17 17:24; Admin Dose 10 MG; Start 05/06/17 at 17:00 Carbidopa/Levodopa (Sinemet (25/ 100)) 1 tab TID GTB Last administered on 22:02; Admin Dose 1 TAB; Start 05/06/17 at 21:00 Donepezil HCl (Aricept) 10 mg QHS GTB Last administered on 05/19/17 21:00; Admin Dose 10 MG; Start 05/06/17 at 21:00 Ferrous Sulfate (Ferrous Sulfate (Ec)) 325 mg BID PO Last administered on 09:09; Admin Dose 325 MG; Start 05/06/17 at 21:00 Folic Acid (Folic Acid) 1 mg DAILY GTB Last administered on 05/22/17 09:09; Admin Dose 1 MG; Start 05/07/17 at 09:00 Lactobacillus Acidophilus/ Rhamnosus (Culturelle) 1 cap QHS GTB Last administered on 05/19/17 21:00; Admin Dose 1 CAP; Start 05/06/17 at 21:00 Magnesium Hydroxide (Milk Of Mag) 30 ml Q24H GTB Last administered on 05/22/17 16:38; Admin Dose 30 ML; Start 05/06/17 at 17:00 Memantine (Namenda) 5 mg QAM GTB Last administered on 05/22/17 09:10; Admin Dose 5 MG; Start 05/07/17 at 09:00 Multivit/Ca Carb/ B Cmplx/FA/Prenat (Radhika-John) 1 tab DAILY GTB Last administered on 05/22/17 09:09; Admin Dose 1 TAB; Start 05/07/17 at 09:00 Pramipexole (Mirapex) 0.5 mg DAILY GTB Last administered on 05/22/17 09:09; Admin Dose 0.5 MG; Start 05/07/17 at 09:00 Sodium Biphosphate/ Sodium Phosphate (Fleet Enema Pediatric) 118 ml Q72H PRN [place] CONSTIPATION; Start 05/06/17 at 17:00 Citric Acid/ Sodium Citrate (Bicitra) 30 ml BID PO Last administered on 09:09; Admin Dose 30 ML; Start 05/06/17 at 21:00 Nystatin (Nystatin Powder) 1 applic BID TOP Last administered on 06/08/17 08: 09; Admin Dose 1 APPLIC; Start 05/09/17 at 21:00 Collagenase (Santyl) 1 applic DAILY TOP Last administered on 06/08/17 08:09; Admin Dose 1 APPLIC; Start 05/09/17 at 15:00 Collagenase (Santyl) 1 applic PRN PRN TOP WOUND CARE; Start 05/09/17 at 14:00 Miscellaneous Information 1 ea NOTE XX ; Start 05/11/17 at 08:00 Glucose (Glutose) 15 gm Q15M PRN PO DECREASED GLUCOSE; Start 05/11/17 at 08:00 Glucose (Glutose) 22.5 gm Q15M PRN PO DECREASED GLUCOSE; Start 05/11/17 at 08: 00 Dextrose (D50w Syringe) 25 ml Q15M PRN IV DECREASED GLUCOSE Last administered on 05/28/17 00:53; Admin Dose 25 ML; Start 05/11/17 at 08:00 Dextrose (D50w Syringe) 50 ml Q15M PRN IV DECREASED GLUCOSE Last administered on 05/15/17 00:11; Admin Dose 50 ML; Start 05/11/17 at 08:00 Glucagon (Glucagen) 1 mg Q15M PRN IM DECREASED GLUCOSE; Start 05/11/17 at 08:00 Glucose (Glutose) 15 gm Q15M PRN BUCCAL DECREASED GLUCOSE; Start 05/11/17 at 08 :00 Epoetin Vasyl (Epogen (Esrd)) 10,000 units MoWeFr@17 SC Last administered on 17:25; Admin Dose 10,000 UNITS; Start 05/13/17 at 17:00 IV Flush (NS 10 ml) 10 ml PRN PRN IV IV PROTOCOL; Start 05/15/17 at 17:30 Midodrine (Proamatine) 10 mg TID@,,17 GTB ; Start 05/23/17 at 09:00 Heparin Sodium (Porcine) (Heparin (5000 Units/0.5 ml)) 5,000 unit BID SC Last administered on 06/08/17 08:07; Admin Dose 5,000 UNIT; Start 05/23/17 at 09:00 Insulin Aspart NOVOLOG *MILD* ALGORI... Q4 SC Last administered on 06/01/17 21 :32; Admin Dose 1 UNIT; Start 05/26/17 at 09:00 Total Parenteral Nutrition 1,000 ml @ 40 mls/hr Q24H IV Last administered on 13:56; Admin Dose 40 MLS/HR; Start 05/27/17 at 14:00 Fat Emulsion Intravenous (Liposyn Ii 20%) 250 ml @ 31.25 mls/ hr Q24H IV Last administered on 06/08/17 09:32; Admin Dose 31.25 MLS/HR; Start 05/28/17 at 10:00 Famotidine 20 mg 20 mg DAILY IV Last administered on 06/08/17 08:02; Admin Dose 20 MG; Start 05/29/17 at 09:00 Sodium Chloride 1,000 ml @ 75 mls/hr [id number] IV Last administered on 07:03; Admin Dose 75 MLS/HR; Start 06/01/17 at 21:00 Caspofungin/ Sodium Chloride (Cancidas/NS) 250 ml @ 250 mls/hr Q24H IVPB Last administered on 06/07/17 16:09; Admin Dose 250 MLS/HR; Start 06/04/17 at 15:30 Hydrocortisone 10 mg 10 mg Q8 IV Last administered on 06/08/17 06:40; Admin Dose 10 MG; Start 06/06/17 at 14:00 Potassium Chloride (KCl 40 MEQ/250 ML NS) 250 ml @ 62.5 mls/hr Q4H IVPB ; Start 06/08/17 at 11:00; Stop 06/08/17 at 18:59 BLUE PERKINS MD Jun 08, 2017 11:03
[2017-06-08] MEDS: POTASSIUM CHLORIDE 250 ML IVPB SCH ×2 (11:08→15:37)
--- NOTE | 2017-06-08 11:38 | PN ---
Date/Time of Note Date/Time of Note DATE: 06/08/17 TIME: 11:38 Assessment/Plan VTE Prophylaxis VTE Prophylaxis Intervention: other Lines/Catheters IV Catheter Type (from Nrsg): PICC Line Central line still needed: Yes Urinary Cath still in place: Yes Reason Cath still needed: urinary retention Assessment/Plan Chief Complaint/Hosp Course SUBJECTIVE DATA: The patient remains critically ill. The patient is currently off pressor support. Blood pressures remain stable. Patient remains oligoanuric. No other events noted. No hemoptysis, hematemesis, hematochezia. s/p two units of packed red blood cells with stable H/H since vent settings and imaging studies were reviewed OBJECTIVE DATA: HEENT: Head is normocephalic. NECK: Supple. HEART: Regular rate. LUNGS: Diminished breath sounds at the base. ABDOMEN: Soft, nontender to palpation. Positive gastrocutaneous fistula. EXTREMITIES: Negative for clubbing, cyanosis. Positive edema. DERMATOLOGIC: No rashes. MUSCULOSKELETAL: No joint effusion. NEUROLOGIC: No change in exam. MEDICATIONS: Reviewed. assessment and plan: 1. Septic shock, etiology is multifactorial. The patient has currently been weaned off pressors. Will continue current treatment plan. Antibiotics, continue IV fluids. Continue to monitor. continues to be hypothermic 2. Anemia. s/p transfusion 3. Questionable adrenal insufficiency. The patient was placed on stress steroids, now being tapered off. Appreciate endocrine evaluation. 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 Follow up with General Surgery. 5. Oligoanuric acute kidney injury on top of chronic kidney disease stage IV. Etiology secondary to ATN, septic and septic acute kidney injury. Plan is to give diuretic challenge. dialysis is futile in this patient 6. Ventilatory-dependent respiratory failure. Vent settings reviewed. ABGs reviewed. Continue to monitor. 7. Hyponatremia, etiology secondary to acute kidney injury in conjunction with hypotonic fluids. The patient's sodium levels have slowly been improving. Continue to monitor. 8. Acute encephalopathy and advanced dementia, etiology toxic metabolic. 9. Volume overload, etiology secondary to chronic kidney disease, catheter leak. The patient be given diuretic challenge. Will monitor closely. 10. Diabetes. Continue Accu-Cheks and sliding scale. 11. Nutrition. Continue total parenteral nutrition. She has a GCF which is healing very slowly 12. Decubitus wound. Continue wound care. 13. Metabolic acidosis secondary to acute kidney injury. The patient's ABG shows appropriate compensation. Will continue to monitor. Problems: Exam/Review of Systems Vital Signs Vitals Vital Signs Date Time Temp Pulse Resp B/P Pulse Ox O2 Delivery O2 Flow Rate FiO2 06/08/17 11:30 98.7 53 18 127/62 100 06/08/17 05:36 30 06/04/17 18:00 Mechanical Ventilator Intake and Output 06/07/17 06/07/17 06/08/17 15:00 23:00 07:00 Intake Total 1000 ml Output Total 250 ml 600 ml 250 ml Balance -250 ml -600 ml 750 ml Results Result Diagram: 06/08/17 0634 06/08/17 0634 Results 24 hrs Laboratory Tests Test 06/07/17 12:24 06/07/17 17:23 06/07/17 20:30 06/08/17 01:01 Bedside Glucose 99 114 121 111 Test 06/08/17 05:41 06/08/17 06:34 06/08/17 07:55 Bedside Glucose 125 99 White Blood Count 4.1 #L Red Blood Count 3.31 L Hemoglobin 9.7 L Hematocrit 30.4 L Mean Corpuscular Volume 91.8 Mean Corpuscular Hemoglobin 29.3 Mean Corpuscular Hemoglobin Concent 31.9 L Red Cell Distribution Width 20.4 H Platelet Count 109 L Mean Platelet Volume 10.4 Neutrophils % 77.7 H Lymphocytes % 13.8 L Monocytes % 5.1 Eosinophils % 2.9 Basophils % 0.0 Nucleated Red Blood Cells % 0.0 Neutrophils # (Manual) 3 Lymphocytes # 0.6 L Monocytes # 0.2 L Eosinophils # 0.1 Basophils # 0.0 Nucleated Red Blood Cells # 0.0 Sodium Level 143 Potassium Level 2.7 *L Chloride Level 99 Carbon Dioxide Level 30 Anion Gap 17 H Blood Urea Nitrogen 50 H Creatinine 2.25 H Glucose Level 101 Calcium Level 8.4 Phosphorus Level 3.7 Magnesium Level 2.3 Medications Medications Current Medications Atorvastatin Calcium (Lipitor) 10 mg QHS GTB Last administered on 05/19/17 21: 00; Admin Dose 10 MG; Start 05/06/17 at 21:00 Bisacodyl (Dulcolax Supp) 10 mg Q48H [place] Last administered on 06/07/17 17:24; Admin Dose 10 MG; Start 05/06/17 at 17:00 Carbidopa/Levodopa (Sinemet (25/ 100)) 1 tab TID GTB Last administered on 22:02; Admin Dose 1 TAB; Start 05/06/17 at 21:00 Donepezil HCl (Aricept) 10 mg QHS GTB Last administered on 05/19/17 21:00; Admin Dose 10 MG; Start 05/06/17 at 21:00 Ferrous Sulfate (Ferrous Sulfate (Ec)) 325 mg BID PO Last administered on 09:09; Admin Dose 325 MG; Start 05/06/17 at 21:00 Folic Acid (Folic Acid) 1 mg DAILY GTB Last administered on 05/22/17 09:09; Admin Dose 1 MG; Start 05/07/17 at 09:00 Lactobacillus Acidophilus/ Rhamnosus (Culturelle) 1 cap QHS GTB Last administered on 05/19/17 21:00; Admin Dose 1 CAP; Start 05/06/17 at 21:00 Magnesium Hydroxide (Milk Of Mag) 30 ml Q24H GTB Last administered on 05/22/17 16:38; Admin Dose 30 ML; Start 05/06/17 at 17:00 Memantine (Namenda) 5 mg QAM GTB Last administered on 05/22/17 09:10; Admin Dose 5 MG; Start 05/07/17 at 09:00 Multivit/Ca Carb/ B Cmplx/FA/Prenat (Radhika-John) 1 tab DAILY GTB Last administered on 05/22/17 09:09; Admin Dose 1 TAB; Start 05/07/17 at 09:00 Pramipexole (Mirapex) 0.5 mg DAILY GTB Last administered on 05/22/17 09:09; Admin Dose 0.5 MG; Start 05/07/17 at 09:00 Sodium Biphosphate/ Sodium Phosphate (Fleet Enema Pediatric) 118 ml Q72H PRN [place] CONSTIPATION; Start 05/06/17 at 17:00 Citric Acid/ Sodium Citrate (Bicitra) 30 ml BID PO Last administered on 09:09; Admin Dose 30 ML; Start 05/06/17 at 21:00 Nystatin (Nystatin Powder) 1 applic BID TOP Last administered on 06/08/17 08: 09; Admin Dose 1 APPLIC; Start 05/09/17 at 21:00 Collagenase (Santyl) 1 applic DAILY TOP Last administered on 06/08/17 08:09; Admin Dose 1 APPLIC; Start 05/09/17 at 15:00 Collagenase (Santyl) 1 applic PRN PRN TOP WOUND CARE; Start 05/09/17 at 14:00 Miscellaneous Information 1 ea NOTE XX ; Start 05/11/17 at 08:00 Glucose (Glutose) 15 gm Q15M PRN PO DECREASED GLUCOSE; Start 05/11/17 at 08:00 Glucose (Glutose) 22.5 gm Q15M PRN PO DECREASED GLUCOSE; Start 05/11/17 at 08: 00 Dextrose (D50w Syringe) 25 ml Q15M PRN IV DECREASED GLUCOSE Last administered on 05/28/17 00:53; Admin Dose 25 ML; Start 05/11/17 at 08:00 Dextrose (D50w Syringe) 50 ml Q15M PRN IV DECREASED GLUCOSE Last administered on 05/15/17 00:11; Admin Dose 50 ML; Start 05/11/17 at 08:00 Glucagon (Glucagen) 1 mg Q15M PRN IM DECREASED GLUCOSE; Start 05/11/17 at 08:00 Glucose (Glutose) 15 gm Q15M PRN BUCCAL DECREASED GLUCOSE; Start 05/11/17 at 08 :00 Epoetin Vasyl (Epogen (Esrd)) 10,000 units [id number]@17 SC Last administered on 17:25; Admin Dose 10,000 UNITS; Start 05/13/17 at 17:00 IV Flush (NS 10 ml) 10 ml PRN PRN IV IV PROTOCOL; Start 05/15/17 at 17:30 Midodrine (Proamatine) 10 mg TID@,,17 GTB ; Start 05/23/17 at 09:00 Heparin Sodium (Porcine) (Heparin (5000 Units/0.5 ml)) 5,000 unit BID SC Last administered on 06/08/17 08:07; Admin Dose 5,000 UNIT; Start 05/23/17 at 09:00 Insulin Aspart NOVOLOG *MILD* ALGORI... Q4 SC Last administered on 06/01/17 21 :32; Admin Dose 1 UNIT; Start 05/26/17 at 09:00 Total Parenteral Nutrition 1,000 ml @ 40 mls/hr Q24H IV Last administered on 13:56; Admin Dose 40 MLS/HR; Start 05/27/17 at 14:00 Fat Emulsion Intravenous (Liposyn Ii 20%) 250 ml @ 31.25 mls/ hr Q24H IV Last administered on 06/08/17 09:32; Admin Dose 31.25 MLS/HR; Start 05/28/17 at 10:00 Famotidine 20 mg 20 mg DAILY IV Last administered on 06/08/17 08:02; Admin Dose 20 MG; Start 05/29/17 at 09:00 Sodium Chloride 1,000 ml @ 75 mls/hr [id number] IV Last administered on 07:03; Admin Dose 75 MLS/HR; Start 06/01/17 at 21:00 Caspofungin/ Sodium Chloride (Cancidas/NS) 250 ml @ 250 mls/hr Q24H IVPB Last administered on 06/07/17 16:09; Admin Dose 250 MLS/HR; Start 06/04/17 at 15:30 Hydrocortisone 10 mg 10 mg Q8 IV Last administered on 06/08/17 06:40; Admin Dose 10 MG; Start 06/06/17 at 14:00 Potassium Chloride (KCl 40 MEQ/250 ML NS) 250 ml @ 62.5 mls/hr Q4H IVPB Last administered on 06/08/17 11:08; Admin Dose 62.5 MLS/HR; Start 06/08/17 at 11:00 ; Stop 06/08/17 at 18:59 DELIA FINE DO Jun 08, 2017 11:38
--- NOTE | 2017-06-08 11:49 | CONS ---
Date/Time of Note Date/Time of Note DATE: 06/08/17 TIME: 11:47 Assessment/Plan Assessment/Plan Chief Complaint/Hosp Course This 69-year-old female with a history of CVA vent dependent respiratory failure , was brought to the emergency room for the dislodgment of the GJ tube. Patient is nonverbal and no information can be obtained. No GI bleeding no chest pain no shortness of breath. Problems: Additional Assessment/Plan Additional Assessment/Plan 1. Dislodged GJ tube accidentally 2. Vent dependent respiratory failure 3. Chronic encephalopathy 4. Renal failure 5. Peripheral vascular disease 6. Anemia, secondary to chronic disease no evidence of active bleeding 7. Large gastrocutaneous fistula, endoscopically it is not possible to keep the largest diameter GJ tube in place 8. Hypotension, corrected patient is off dopamine for more than 24 hours 9. Decubitus ulcer 10. Workup for adrenal insufficiency, patient is on steroid now and off dopamine 11. Sepsis Plan Continue all supportive care Surgery to fix the gastrocutaneous fistula once patient is off dopamine Blood transfusion Monitor for acute overt GI bleeding We should stop Intralipid. Patient is gaining weight especially around abdomen and this will make G or J-tube placement difficulty in the future Consultation Date/Type/Reason Admit Date/Time May 06, 2017 at 16:34 Type of Consultation: Endocrinology Referring Provider: OSMAR MONTAGUE DO 24 HR Interval Summary Subjective hx not possible: pt non-verbal, pt critical Exam/Review of Systems Vital Signs Vitals Vital Signs Date Time Temp Pulse Resp B/P Pulse Ox O2 Delivery O2 Flow Rate FiO2 06/08/17 11:30 98.7 53 18 127/62 100 06/08/17 05:36 30 06/04/17 18:00 Mechanical Ventilator Intake and Output 06/07/17 06/07/17 06/08/17 15:00 23:00 07:00 Intake Total 1000 ml Output Total 250 ml 600 ml 250 ml Balance -250 ml -600 ml 750 ml Exam Respiratory: other (Patient is on vent) Gastrointestinal: other (Stoma is closing rapidly continues to have a discharge from the G-tube site. Patient abdominal girth is increasing in size and that will make it difficult for the future J-tube) Extremities: edema Neurological: unresponsive Results Result Diagram: 06/08/17 0634 06/08/17 0634 Results 24 hrs Laboratory Tests Test 06/07/17 12:24 06/07/17 17:23 06/07/17 20:30 06/08/17 01:01 Bedside Glucose 99 114 121 111 Test 06/08/17 05:41 06/08/17 06:34 06/08/17 07:55 Bedside Glucose 125 99 White Blood Count 4.1 #L Red Blood Count 3.31 L Hemoglobin 9.7 L Hematocrit 30.4 L Mean Corpuscular Volume 91.8 Mean Corpuscular Hemoglobin 29.3 Mean Corpuscular Hemoglobin Concent 31.9 L Red Cell Distribution Width 20.4 H Platelet Count 109 L Mean Platelet Volume 10.4 Neutrophils % 77.7 H Lymphocytes % 13.8 L Monocytes % 5.1 Eosinophils % 2.9 Basophils % 0.0 Nucleated Red Blood Cells % 0.0 Neutrophils # (Manual) 3 Lymphocytes # 0.6 L Monocytes # 0.2 L Eosinophils # 0.1 Basophils # 0.0 Nucleated Red Blood Cells # 0.0 Sodium Level 143 Potassium Level 2.7 *L Chloride Level 99 Carbon Dioxide Level 30 Anion Gap 17 H Blood Urea Nitrogen 50 H Creatinine 2.25 H Glucose Level 101 Calcium Level 8.4 Phosphorus Level 3.7 Magnesium Level 2.3 Medications Medications Current Medications Atorvastatin Calcium (Lipitor) 10 mg QHS GTB Last administered on 05/19/17 21: 00; Admin Dose 10 MG; Start 05/06/17 at 21:00 Bisacodyl (Dulcolax Supp) 10 mg Q48H [place] Last administered on 06/07/17 17:24; Admin Dose 10 MG; Start 05/06/17 at 17:00 Carbidopa/Levodopa (Sinemet (25/ 100)) 1 tab TID GTB Last administered on 22:02; Admin Dose 1 TAB; Start 05/06/17 at 21:00 Donepezil HCl (Aricept) 10 mg QHS GTB Last administered on 05/19/17 21:00; Admin Dose 10 MG; Start 05/06/17 at 21:00 Ferrous Sulfate (Ferrous Sulfate (Ec)) 325 mg BID PO Last administered on 09:09; Admin Dose 325 MG; Start 05/06/17 at 21:00 Folic Acid (Folic Acid) 1 mg DAILY GTB Last administered on 05/22/17 09:09; Admin Dose 1 MG; Start 05/07/17 at 09:00 Lactobacillus Acidophilus/ Rhamnosus (Culturelle) 1 cap QHS GTB Last administered on 05/19/17 21:00; Admin Dose 1 CAP; Start 05/06/17 at 21:00 Magnesium Hydroxide (Milk Of Mag) 30 ml Q24H GTB Last administered on 05/22/17 16:38; Admin Dose 30 ML; Start 05/06/17 at 17:00 Memantine (Namenda) 5 mg QAM GTB Last administered on 05/22/17 09:10; Admin Dose 5 MG; Start 05/07/17 at 09:00 Multivit/Ca Carb/ B Cmplx/FA/Prenat (Radhika-John) 1 tab DAILY GTB Last administered on 05/22/17 09:09; Admin Dose 1 TAB; Start 05/07/17 at 09:00 Pramipexole (Mirapex) 0.5 mg DAILY GTB Last administered on 05/22/17 09:09; Admin Dose 0.5 MG; Start 05/07/17 at 09:00 Sodium Biphosphate/ Sodium Phosphate (Fleet Enema Pediatric) 118 ml Q72H PRN [place] CONSTIPATION; Start 05/06/17 at 17:00 Citric Acid/ Sodium Citrate (Bicitra) 30 ml BID PO Last administered on 09:09; Admin Dose 30 ML; Start 05/06/17 at 21:00 Nystatin (Nystatin Powder) 1 applic BID TOP Last administered on 06/08/17 08: 09; Admin Dose 1 APPLIC; Start 05/09/17 at 21:00 Collagenase (Santyl) 1 applic DAILY TOP Last administered on 06/08/17 08:09; Admin Dose 1 APPLIC; Start 05/09/17 at 15:00 Collagenase (Santyl) 1 applic PRN PRN TOP WOUND CARE; Start 05/09/17 at 14:00 Miscellaneous Information 1 ea NOTE XX ; Start 05/11/17 at 08:00 Glucose (Glutose) 15 gm Q15M PRN PO DECREASED GLUCOSE; Start 05/11/17 at 08:00 Glucose (Glutose) 22.5 gm Q15M PRN PO DECREASED GLUCOSE; Start 05/11/17 at 08: 00 Dextrose (D50w Syringe) 25 ml Q15M PRN IV DECREASED GLUCOSE Last administered on 05/28/17 00:53; Admin Dose 25 ML; Start 05/11/17 at 08:00 Dextrose (D50w Syringe) 50 ml Q15M PRN IV DECREASED GLUCOSE Last administered on 05/15/17 00:11; Admin Dose 50 ML; Start 05/11/17 at 08:00 Glucagon (Glucagen) 1 mg Q15M PRN IM DECREASED GLUCOSE; Start 05/11/17 at 08:00 Glucose (Glutose) 15 gm Q15M PRN BUCCAL DECREASED GLUCOSE; Start 05/11/17 at 08 :00 Epoetin Vasyl (Epogen (Esrd)) 10,000 units [id number]@17 SC Last administered on 17:25; Admin Dose 10,000 UNITS; Start 05/13/17 at 17:00 IV Flush (NS 10 ml) 10 ml PRN PRN IV IV PROTOCOL; Start 05/15/17 at 17:30 Midodrine (Proamatine) 10 mg TID@,, GTB ; Start 05/23/17 at 09:00 Heparin Sodium (Porcine) (Heparin (5000 Units/0.5 ml)) 5,000 unit BID SC Last administered on 06/08/17 08:07; Admin Dose 5,000 UNIT; Start 05/23/17 at 09:00 Insulin Aspart NOVOLOG *MILD* ALGORI... Q4 SC Last administered on 06/01/17 21 :32; Admin Dose 1 UNIT; Start 05/26/17 at 09:00 Total Parenteral Nutrition 1,000 ml @ 40 mls/hr Q24H IV Last administered on 13:56; Admin Dose 40 MLS/HR; Start 05/27/17 at 14:00 Fat Emulsion Intravenous (Liposyn Ii 20%) 250 ml @ 31.25 mls/ hr Q24H IV Last administered on 06/08/17 09:32; Admin Dose 31.25 MLS/HR; Start 05/28/17 at 10:00 Famotidine 20 mg 20 mg DAILY IV Last administered on 06/08/17 08:02; Admin Dose 20 MG; Start 05/29/17 at 09:00 Sodium Chloride 1,000 ml @ 75 mls/hr [id number] IV Last administered on 07:03; Admin Dose 75 MLS/HR; Start 06/01/17 at 21:00 Caspofungin/ Sodium Chloride (Cancidas/NS) 250 ml @ 250 mls/hr Q24H IVPB Last administered on 06/07/17 16:09; Admin Dose 250 MLS/HR; Start 06/04/17 at 15:30 Hydrocortisone 10 mg 10 mg Q8 IV Last administered on 06/08/17 06:40; Admin Dose 10 MG; Start 06/06/17 at 14:00 Potassium Chloride (KCl 40 MEQ/250 ML NS) 250 ml @ 62.5 mls/hr Q4H IVPB Last administered on 06/08/17 11:08; Admin Dose 62.5 MLS/HR; Start 06/08/17 at 11:00 ; Stop 06/08/17 at 18:59 SYLWIA SY MD Jun 08, 2017 11:49
[2017-06-08] MEDS: TPN 1,000 ML IV SCH (13:02)
--- NOTE | 2017-06-08 13:05 | CONS ---
Date/Time of Note Date/Time of Note DATE: 06/08/17 TIME: 13:03 Assessment/Plan Assessment/Plan Additional Assessment/Plan Ventilator settings are AC of 16, tidal volume 500, PEEP of 5, 30% FiO2. Assessment and recommendations; 1. Patient with history of chronic respiratory failure admitted for septic shock with interval improvement. 2. Bilateral pneumonia. 3. Persistent vegetative state. 4. Chronic renal insufficiency. 5. Anemia and thrombocytopenia. Continue current treatment. Prognosis is very poor. Consultation Date/Type/Reason Admit Date/Time May 06, 2017 at 16:34 Initial Consult Date 05/10/17 Type of Consultation: Pulmonary Referring Provider: OSMAR MONTAGUE DO 24 HR Interval Summary Free Text/Dictation Patient condition remains unchanged. Remains chronically ventilator dependent. Has remained hemodynamically stable. General exam; elderly woman, on ventilator via tracheostomy, currently in no distress. Unresponsive. Exam/Review of Systems Vital Signs Vitals Vital Signs Date Time Temp Pulse Resp B/P Pulse Ox O2 Delivery O2 Flow Rate FiO2 06/08/17 12:43 62 06/08/17 11:30 98.7 18 127/62 100 06/08/17 05:36 30 06/04/17 18:00 Mechanical Ventilator Intake and Output 06/07/17 06/07/17 06/08/17 15:00 23:00 07:00 Intake Total 1000 ml Output Total 250 ml 600 ml 250 ml Balance -250 ml -600 ml 750 ml Exam HEENT exam; supple neck, no JVD. Tracheostomy in place. No neck masses. Chest exam; diminished breath sounds bilaterally. S1-S2 audible, no murmurs. Regular rhythm. Abdomen exam; soft, G-tube in place. Bowel sounds audible. Abdomen is nondistended. Extremity exam; trace peripheral edema. Patient has a multiple ecchymosis involving all 4 extremities. [facility] exam; patient remains unresponsive. Results Result Diagram: 06/08/17 0634 06/08/17 0634 Results 24 hrs Laboratory Tests Test 06/07/17 17:23 06/07/17 20:30 06/08/17 01:01 06/08/17 05:41 Bedside Glucose 114 121 111 125 Test 06/08/17 06:34 06/08/17 07:55 06/08/17 13:00 White Blood Count 4.1 #L Red Blood Count 3.31 L Hemoglobin 9.7 L Hematocrit 30.4 L Mean Corpuscular Volume 91.8 Mean Corpuscular Hemoglobin 29.3 Mean Corpuscular Hemoglobin Concent 31.9 L Red Cell Distribution Width 20.4 H Platelet Count 109 L Mean Platelet Volume 10.4 Neutrophils % 77.7 H Lymphocytes % 13.8 L Monocytes % 5.1 Eosinophils % 2.9 Basophils % 0.0 Nucleated Red Blood Cells % 0.0 Neutrophils # (Manual) 3 Lymphocytes # 0.6 L Monocytes # 0.2 L Eosinophils # 0.1 Basophils # 0.0 Nucleated Red Blood Cells # 0.0 Sodium Level 143 Potassium Level 2.7 *L Chloride Level 99 Carbon Dioxide Level 30 Anion Gap 17 H Blood Urea Nitrogen 50 H Creatinine 2.25 H Glucose Level 101 Calcium Level 8.4 Phosphorus Level 3.7 Magnesium Level 2.3 Bedside Glucose 99 94 Medications Medications Current Medications Atorvastatin Calcium (Lipitor) 10 mg QHS GTB Last administered on 05/19/17 21: 00; Admin Dose 10 MG; Start 05/06/17 at 21:00 Bisacodyl (Dulcolax Supp) 10 mg Q48H CA Last administered on 06/07/17 17:24; Admin Dose 10 MG; Start 05/06/17 at 17:00 Carbidopa/Levodopa (Sinemet (25/ 100)) 1 tab TID GTB Last administered on 22:02; Admin Dose 1 TAB; Start 05/06/17 at 21:00 Donepezil HCl (Aricept) 10 mg QHS GTB Last administered on 05/19/17 21:00; Admin Dose 10 MG; Start 05/06/17 at 21:00 Ferrous Sulfate (Ferrous Sulfate (Ec)) 325 mg BID PO Last administered on 09:09; Admin Dose 325 MG; Start 05/06/17 at 21:00 Folic Acid (Folic Acid) 1 mg DAILY GTB Last administered on 05/22/17 09:09; Admin Dose 1 MG; Start 05/07/17 at 09:00 Lactobacillus Acidophilus/ Rhamnosus (Culturelle) 1 cap QHS GTB Last administered on 05/19/17 21:00; Admin Dose 1 CAP; Start 05/06/17 at 21:00 Magnesium Hydroxide (Milk Of Mag) 30 ml Q24H GTB Last administered on 05/22/17 16:38; Admin Dose 30 ML; Start 05/06/17 at 17:00 Memantine (Namenda) 5 mg QAM GTB Last administered on 05/22/17 09:10; Admin Dose 5 MG; Start 05/07/17 at 09:00 Multivit/Ca Carb/ B Cmplx/FA/Prenat (Radhika-John) 1 tab DAILY GTB Last administered on 05/22/17 09:09; Admin Dose 1 TAB; Start 05/07/17 at 09:00 Pramipexole (Mirapex) 0.5 mg DAILY GTB Last administered on 05/22/17 09:09; Admin Dose 0.5 MG; Start 05/07/17 at 09:00 Sodium Biphosphate/ Sodium Phosphate (Fleet Enema Pediatric) 118 ml Q72H PRN CA CONSTIPATION; Start 05/06/17 at 17:00 Citric Acid/ Sodium Citrate (Bicitra) 30 ml BID PO Last administered on 09:09; Admin Dose 30 ML; Start 05/06/17 at 21:00 Nystatin (Nystatin Powder) 1 applic BID TOP Last administered on 06/08/17 08: 09; Admin Dose 1 APPLIC; Start 05/09/17 at 21:00 Collagenase (Santyl) 1 applic DAILY TOP Last administered on 06/08/17 08:09; Admin Dose 1 APPLIC; Start 05/09/17 at 15:00 Collagenase (Santyl) 1 applic PRN PRN TOP WOUND CARE; Start 05/09/17 at 14:00 Miscellaneous Information 1 ea NOTE XX ; Start 05/11/17 at 08:00 Glucose (Glutose) 15 gm Q15M PRN PO DECREASED GLUCOSE; Start 05/11/17 at 08:00 Glucose (Glutose) 22.5 gm Q15M PRN PO DECREASED GLUCOSE; Start 05/11/17 at 08: 00 Dextrose (D50w Syringe) 25 ml Q15M PRN IV DECREASED GLUCOSE Last administered on 05/28/17 00:53; Admin Dose 25 ML; Start 05/11/17 at 08:00 Dextrose (D50w Syringe) 50 ml Q15M PRN IV DECREASED GLUCOSE Last administered on 05/15/17 00:11; Admin Dose 50 ML; Start 05/11/17 at 08:00 Glucagon (Glucagen) 1 mg Q15M PRN IM DECREASED GLUCOSE; Start 05/11/17 at 08:00 Glucose (Glutose) 15 gm Q15M PRN BUCCAL DECREASED GLUCOSE; Start 05/11/17 at 08 :00 Epoetin Vasyl (Epogen (Esrd)) 10,000 units MoWeFr@17 SC Last administered on 17:25; Admin Dose 10,000 UNITS; Start 05/13/17 at 17:00 IV Flush (NS 10 ml) 10 ml PRN PRN IV IV PROTOCOL; Start 05/15/17 at 17:30 Midodrine (Proamatine) 10 mg TID@,,17 GTB ; Start 05/23/17 at 09:00 Heparin Sodium (Porcine) (Heparin (5000 Units/0.5 ml)) 5,000 unit BID SC Last administered on 06/08/17 08:07; Admin Dose 5,000 UNIT; Start 05/23/17 at 09:00 Insulin Aspart NOVOLOG *MILD* ALGORI... Q4 SC Last administered on 06/01/17 21 :32; Admin Dose 1 UNIT; Start 05/26/17 at 09:00 Total Parenteral Nutrition 1,000 ml @ 40 mls/hr Q24H IV Last administered on 13:56; Admin Dose 40 MLS/HR; Start 05/27/17 at 14:00 Fat Emulsion Intravenous (Liposyn Ii 20%) 250 ml @ 31.25 mls/ hr Q24H IV Last administered on 06/08/17 09:32; Admin Dose 31.25 MLS/HR; Start 05/28/17 at 10:00 Famotidine 20 mg 20 mg DAILY IV Last administered on 06/08/17 08:02; Admin Dose 20 MG; Start 05/29/17 at 09:00 Sodium Chloride 1,000 ml @ 75 mls/hr [id number] IV Last administered on 07:03; Admin Dose 75 MLS/HR; Start 06/01/17 at 21:00 Caspofungin/ Sodium Chloride (Cancidas/NS) 250 ml @ 250 mls/hr Q24H IVPB Last administered on 8/18/17at 16:09; Admin Dose 250 MLS/HR; Start 06/04/17 at 15:30 Hydrocortisone 10 mg 10 mg Q8 IV Last administered on 06/08/17 06:40; Admin Dose 10 MG; Start 06/06/17 at 14:00 Potassium Chloride (KCl 40 MEQ/250 ML NS) 250 ml @ 62.5 mls/hr Q4H IVPB Last administered on 06/08/17 11:08; Admin Dose 62.5 MLS/HR; Start 06/08/17 at 11:00 ; Stop 06/08/17 at 18:59 SMITH RUIZ Jun 08, 2017 13:05
[2017-06-08] MEDS: CASPOFUNGIN 50 MG in SOD CHLORIDE 0.9% 250 ML IVPB SCH (15:37)
--- NOTE | 2017-06-08 16:37 | CONS ---
Date/Time of Note Date/Time of Note DATE: 06/08/17 TIME: 16:35 Assessment/Plan Assessment/Plan Chief Complaint/Hosp Course SUBJECTIVE DATA: No acute changes. Remains obtunded, nad MICROBIOLOGY: Blood culture since June 03 is negative. Urine culture growing Gillian albicans. Abx: Cancidas INDWELLING: Trach, PICC line, and Collazo. PHYSICAL EXAMINATION: GENERAL: Chronically ill-appearing, elderly woman, who is nonverbal, noncommunicative, in no distress. HEENT: Head atraumatic, normocephalic. Sclerae anicteric. Buccal mucosa dry. NECK: Supple. Tracheostomy present. CHEST: Rise symmetrical. Breath sounds with bilateral scattered crackles. HEART: S1, S2. ABDOMEN: Soft, distended. Bowel sounds hypoactive. EXTREMITIES: With bilateral edema. SKIN: With generalized edema and erythema. ASSESSMENT: 1. Status post shock, multifactorial. 2. Gillian albicans urinary tract infection (UTI). 3. S/p Healthcare associated pneumonia 4. G-tube malfunction/GC fistula. 5. Chronic encephalopathy. 6. Acute on chronic kidney disease. 7. Diabetes. PLAN: Remains unchanged, continue present care, cano cx prn, GI/surgical rec-s DW staff Problems: Consultation Date/Type/Reason Admit Date/Time May 06, 2017 at 16:34 Initial Consult Date 05/09/17 Type of Consultation: id Referring Provider: OSMAR MONTAGUE DO Exam/Review of Systems Vital Signs Vitals Vital Signs Date Time Temp Pulse Resp B/P Pulse Ox O2 Delivery O2 Flow Rate FiO2 06/08/17 15:59 98.9 60 18 108/52 100 06/08/17 05:36 30 06/04/17 18:00 Mechanical Ventilator Intake and Output 06/07/17 06/07/17 06/08/17 15:00 23:00 07:00 Intake Total 1000 ml Output Total 250 ml 600 ml 250 ml Balance -250 ml -600 ml 750 ml Results Result Diagram: 06/08/17 0634 06/08/17 0634 Results 24 hrs Laboratory Tests Test 06/07/17 17:23 06/07/17 20:30 06/08/17 01:01 06/08/17 05:41 Bedside Glucose 114 121 111 125 Test 06/08/17 06:34 06/08/17 07:55 06/08/17 13:00 White Blood Count 4.1 #L Red Blood Count 3.31 L Hemoglobin 9.7 L Hematocrit 30.4 L Mean Corpuscular Volume 91.8 Mean Corpuscular Hemoglobin 29.3 Mean Corpuscular Hemoglobin Concent 31.9 L Red Cell Distribution Width 20.4 H Platelet Count 109 L Mean Platelet Volume 10.4 Neutrophils % 77.7 H Lymphocytes % 13.8 L Monocytes % 5.1 Eosinophils % 2.9 Basophils % 0.0 Nucleated Red Blood Cells % 0.0 Neutrophils # (Manual) 3 Lymphocytes # 0.6 L Monocytes # 0.2 L Eosinophils # 0.1 Basophils # 0.0 Nucleated Red Blood Cells # 0.0 Sodium Level 143 Potassium Level 2.7 *L Chloride Level 99 Carbon Dioxide Level 30 Anion Gap 17 H Blood Urea Nitrogen 50 H Creatinine 2.25 H Glucose Level 101 Calcium Level 8.4 Phosphorus Level 3.7 Magnesium Level 2.3 Bedside Glucose 99 94 Medications Medications Current Medications Atorvastatin Calcium (Lipitor) 10 mg QHS GTB Last administered on 05/19/17 21: 00; Admin Dose 10 MG; Start 05/06/17 at 21:00 Bisacodyl (Dulcolax Supp) 10 mg Q48H IN Last administered on 06/07/17 17:24; Admin Dose 10 MG; Start 05/06/17 at 17:00 Carbidopa/Levodopa (Sinemet (25/ 100)) 1 tab TID GTB Last administered on 22:02; Admin Dose 1 TAB; Start 05/06/17 at 21:00 Donepezil HCl (Aricept) 10 mg QHS GTB Last administered on 05/19/17 21:00; Admin Dose 10 MG; Start 05/06/17 at 21:00 Ferrous Sulfate (Ferrous Sulfate (Ec)) 325 mg BID PO Last administered on 09:09; Admin Dose 325 MG; Start 05/06/17 at 21:00 Folic Acid (Folic Acid) 1 mg DAILY GTB Last administered on 05/22/17 09:09; Admin Dose 1 MG; Start 05/07/17 at 09:00 Lactobacillus Acidophilus/ Rhamnosus (Culturelle) 1 cap QHS GTB Last administered on 05/19/17 21:00; Admin Dose 1 CAP; Start 05/06/17 at 21:00 Magnesium Hydroxide (Milk Of Mag) 30 ml Q24H GTB Last administered on 05/22/17 16:38; Admin Dose 30 ML; Start 05/06/17 at 17:00 Memantine (Namenda) 5 mg QAM GTB Last administered on 05/22/17 09:10; Admin Dose 5 MG; Start 05/07/17 at 09:00 Multivit/Ca Carb/ B Cmplx/FA/Prenat (Radhika-John) 1 tab DAILY GTB Last administered on 05/22/17 09:09; Admin Dose 1 TAB; Start 05/07/17 at 09:00 Pramipexole (Mirapex) 0.5 mg DAILY GTB Last administered on 05/22/17 09:09; Admin Dose 0.5 MG; Start 05/07/17 at 09:00 Sodium Biphosphate/ Sodium Phosphate (Fleet Enema Pediatric) 118 ml Q72H PRN IN CONSTIPATION; Start 05/06/17 at 17:00 Citric Acid/ Sodium Citrate (Bicitra) 30 ml BID PO Last administered on 09:09; Admin Dose 30 ML; Start 05/06/17 at 21:00 Nystatin (Nystatin Powder) 1 applic BID TOP Last administered on 06/08/17 08: 09; Admin Dose 1 APPLIC; Start 05/09/17 at 21:00 Collagenase (Santyl) 1 applic DAILY TOP Last administered on 06/08/17 08:09; Admin Dose 1 APPLIC; Start 05/09/17 at 15:00 Collagenase (Santyl) 1 applic PRN PRN TOP WOUND CARE; Start 05/09/17 at 14:00 Miscellaneous Information 1 ea NOTE XX ; Start 05/11/17 at 08:00 Glucose (Glutose) 15 gm Q15M PRN PO DECREASED GLUCOSE; Start 05/11/17 at 08:00 Glucose (Glutose) 22.5 gm Q15M PRN PO DECREASED GLUCOSE; Start 05/11/17 at 08: 00 Dextrose (D50w Syringe) 25 ml Q15M PRN IV DECREASED GLUCOSE Last administered on 05/28/17 00:53; Admin Dose 25 ML; Start 05/11/17 at 08:00 Dextrose (D50w Syringe) 50 ml Q15M PRN IV DECREASED GLUCOSE Last administered on 05/15/17 00:11; Admin Dose 50 ML; Start 05/11/17 at 08:00 Glucagon (Glucagen) 1 mg Q15M PRN IM DECREASED GLUCOSE; Start 05/11/17 at 08:00 Glucose (Glutose) 15 gm Q15M PRN BUCCAL DECREASED GLUCOSE; Start 05/11/17 at 08 :00 Epoetin Vasyl (Epogen (Esrd)) 10,000 units [id number]@17 SC Last administered on 17:25; Admin Dose 10,000 UNITS; Start 05/13/17 at 17:00 IV Flush (NS 10 ml) 10 ml PRN PRN IV IV PROTOCOL; Start 05/15/17 at 17:30 Midodrine (Proamatine) 10 mg TID@,,17 GTB ; Start 05/23/17 at 09:00 Heparin Sodium (Porcine) (Heparin (5000 Units/0.5 ml)) 5,000 unit BID SC Last administered on 06/08/17 08:07; Admin Dose 5,000 UNIT; Start 05/23/17 at 09:00 Insulin Aspart NOVOLOG *MILD* ALGORI... Q4 SC Last administered on 06/01/17 21 :32; Admin Dose 1 UNIT; Start 05/26/17 at 09:00 Total Parenteral Nutrition 1,000 ml @ 40 mls/hr Q24H IV Last administered on 13:02; Admin Dose 40 MLS/HR; Start 05/27/17 at 14:00 Fat Emulsion Intravenous (Liposyn Ii 20%) 250 ml @ 31.25 mls/ hr Q24H IV Last administered on 06/08/17 09:32; Admin Dose 31.25 MLS/HR; Start 05/28/17 at 10:00 Famotidine 20 mg 20 mg DAILY IV Last administered on 06/08/17 08:02; Admin Dose 20 MG; Start 05/29/17 at 09:00 Sodium Chloride 1,000 ml @ 75 mls/hr [id number] IV Last administered on 07:03; Admin Dose 75 MLS/HR; Start 06/01/17 at 21:00 Caspofungin/ Sodium Chloride (Cancidas/NS) 250 ml @ 250 mls/hr Q24H IVPB Last administered on 06/08/17 15:37; Admin Dose 250 MLS/HR; Start 06/04/17 at 15:30 Hydrocortisone 10 mg 10 mg Q8 IV Last administered on 06/08/17 13:02; Admin Dose 10 MG; Start 06/06/17 at 14:00 Potassium Chloride (KCl 40 MEQ/250 ML NS) 250 ml @ 62.5 mls/hr Q4H IVPB Last administered on 06/08/17 15:37; Admin Dose 62.5 MLS/HR; Start 06/08/17 at 11:00 ; Stop 06/08/17 at 18:59 DOROTHY CORONADO NP Jun 08, 2017 16:37
[2017-06-08] MEDS: MAGNESIUM HYDROXIDE 30ML CUP GTB SCH (16:53)
[2017-06-08] MEDS: DONEPEZIL 10 MG TAB GTB SCH (21:00)
[2017-06-08] MEDS: ATORVASTATIN 10 MG TAB GTB SCH (22:52)
[2017-06-08] MEDS: LACTOBACILLUS RHAMNOSUS CAP GTB SCH (22:52)
[2017-06-09] VITALS (24 sets, daily range): BP systolic 97–131; BP diastolic 48–61; PULSE 56–65; RESP 15–18
[2017-06-09] MEDS: INSULIN ASPART [NOVOLOG] 3 ML PEN SC SCH ×6 (01:00→20:19)
[2017-06-09] MEDS: SOD CHLORIDE 0.9% 1,000 ML IV SCH ×3 (01:44→15:24)
[2017-06-09] MEDS: HYDROCORTISONE 100 MG INJ IV SCH ×3 (06:08→21:48)
[2017-06-09] MEDS: MEMANTINE 5 MG TAB GTB SCH (09:00)
[2017-06-09] MEDS: HEPARIN 5,000 UNIT/0.5 ML VIAL SC SCH ×2 (09:00→20:19)
[2017-06-09] MEDS: FERROUS SULFATE (EC) 325 MG TAB PO SCH (09:00)
[2017-06-09] MEDS: CARBIDOPA/LEVODOPA (25/100) TAB GTB SCH (09:00)
[2017-06-09] MEDS: FAMOTIDINE 20 MG INJ IV SCH (09:00)
[2017-06-09] MEDS: MULTIVIT/CA CARB/B CMPLX/FA TAB GTB SCH (09:00)
[2017-06-09] MEDS: CITRIC ACID/NA CITRATE 30 ML CUP PO SCH ×2 (09:00→20:19)
[2017-06-09] MEDS: MIDODRINE 5 MG TAB GTB SCH (09:00)
[2017-06-09] MEDS: PRAMIPEXOLE 0.25 MG TAB GTB SCH (09:00)
[2017-06-09] MEDS: FOLIC ACID 1 MG TAB GTB SCH (09:00)
[2017-06-09] MEDS: COLLAGENASE 30 GM TUBE TOP SCH ×2 (09:40→10:19)
[2017-06-09] MEDS: NYSTATIN 30 GM POWDER BTL TOP SCH ×2 (10:14→10:19)
[2017-06-09] MEDS: FAT EMULSION 20% 250 ML IV SCH (10:20)
--- NOTE | 2017-06-09 10:22 | PN ---
Date/Time of Note Date/Time of Note DATE: 06/09/17 TIME: 10:19 Assessment/Plan VTE Prophylaxis VTE Prophylaxis Intervention: other Lines/Catheters IV Catheter Type (from Nrsg): PICC Line Central line still needed: Yes Urinary Cath still in place: Yes Reason Cath still needed: urinary retention Assessment/Plan Chief Complaint/Hosp Course SUBJECTIVE DATA: The patient remains critically ill. The patient is currently off pressor support. Blood pressures remain stable. Patient remains oligoanuric. No new rash, fever, chills, diaphoresis, hemoptysis, hematemesis, hematochezia. s/p two units of packed red blood cells with stable H/H since has bleeding from mouth area (no seizure reported) vent settings and imaging studies were reviewed OBJECTIVE DATA: HEENT: Head is normocephalic. NECK: Supple. HEART: Regular rate. LUNGS: Diminished breath sounds at the base. ABDOMEN: Soft, nontender to palpation. Positive gastrocutaneous fistula. EXTREMITIES: Negative for clubbing, cyanosis. Positive edema. DERMATOLOGIC: No rashes. MUSCULOSKELETAL: No joint effusion. NEUROLOGIC: No change in exam. MEDICATIONS: Reviewed. assessment and plan: 1. Septic shock, etiology is multifactorial. The patient has currently been weaned off pressors. Will continue current treatment plan. Antibiotics, continue IV fluids. Continue to monitor. continues to be hypothermic 2. Anemia. s/p transfusion 3. Questionable adrenal insufficiency. The patient was placed on stress steroids, now being tapered off. Appreciate endocrine evaluation. 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 Follow up with General Surgery. 5. Oligoanuric acute kidney injury on top of chronic kidney disease stage IV. Etiology secondary to ATN, septic and septic acute kidney injury. Plan is to give diuretic challenge. dialysis is futile in this patient 6. Ventilatory-dependent respiratory failure. Vent settings reviewed. ABGs reviewed. Continue to monitor. 7. Hyponatremia, etiology secondary to acute kidney injury in conjunction with hypotonic fluids. The patient's sodium levels have slowly been improving. Continue to monitor. 8. Acute encephalopathy and advanced dementia, etiology toxic metabolic. 9. Volume overload, etiology secondary to chronic kidney disease, catheter leak. The patient be given diuretic challenge. Will monitor closely. 10. Diabetes. Continue Accu-Cheks and sliding scale. 11. Nutrition. Continue total parenteral nutrition. She has a GCF which is healing very slowly 12. Decubitus wound. Continue wound care. 13. Metabolic acidosis secondary to acute kidney injury. The patient's ABG shows appropriate compensation. Will continue to monitor. the patient has almost no chance of meaningful recovery. continuation of ongoing aggressive care is futile and medically inappropriate. will discuss with bioethics Problems: Exam/Review of Systems Vital Signs Vitals Vital Signs Date Time Temp Pulse Resp B/P Pulse Ox O2 Delivery O2 Flow Rate FiO2 06/09/17 09:27 57 16 85 30 06/09/17 08:51 98.9 97/53 06/09/17 04:00 Mechanical Ventilator Intake and Output 06/08/17 06/08/17 06/09/17 15:00 23:00 07:00 Intake Total 480 ml 1370 ml Output Total 350 ml 250 ml Balance 480 ml 1020 ml -250 ml Results Result Diagram: 06/08/17 0634 06/08/17 0634 Results 24 hrs Laboratory Tests Test 06/08/17 13:00 06/08/17 17:02 06/08/17 23:02 06/09/17 01:42 Bedside Glucose 94 100 105 95 Test 06/09/17 06:54 06/09/17 08:59 Bedside Glucose 97 92 Medications Medications Current Medications Atorvastatin Calcium (Lipitor) 10 mg QHS GTB Last administered on 05/19/17 21: 00; Admin Dose 10 MG; Start 05/06/17 at 21:00 Bisacodyl (Dulcolax Supp) 10 mg Q48H IN Last administered on 06/07/17 17:24; Admin Dose 10 MG; Start 05/06/17 at 17:00 Carbidopa/Levodopa (Sinemet (25/ 100)) 1 tab TID GTB Last administered on 22:02; Admin Dose 1 TAB; Start 05/06/17 at 21:00 Donepezil HCl (Aricept) 10 mg QHS GTB Last administered on 05/19/17 21:00; Admin Dose 10 MG; Start 05/06/17 at 21:00 Ferrous Sulfate (Ferrous Sulfate (Ec)) 325 mg BID PO Last administered on 09:09; Admin Dose 325 MG; Start 05/06/17 at 21:00 Folic Acid (Folic Acid) 1 mg DAILY GTB Last administered on 05/22/17 09:09; Admin Dose 1 MG; Start 05/07/17 at 09:00 Lactobacillus Acidophilus/ Rhamnosus (Culturelle) 1 cap QHS GTB Last administered on 05/19/17 21:00; Admin Dose 1 CAP; Start 05/06/17 at 21:00 Magnesium Hydroxide (Milk Of Mag) 30 ml Q24H GTB Last administered on 05/22/17 16:38; Admin Dose 30 ML; Start 05/06/17 at 17:00 Memantine (Namenda) 5 mg QAM GTB Last administered on 05/22/17 09:10; Admin Dose 5 MG; Start 05/07/17 at 09:00 Multivit/Ca Carb/ B Cmplx/FA/Prenat (Radhika-John) 1 tab DAILY GTB Last administered on 05/22/17 09:09; Admin Dose 1 TAB; Start 05/07/17 at 09:00 Pramipexole (Mirapex) 0.5 mg DAILY GTB Last administered on 05/22/17 09:09; Admin Dose 0.5 MG; Start 05/07/17 at 09:00 Sodium Biphosphate/ Sodium Phosphate (Fleet Enema Pediatric) 118 ml Q72H PRN IN CONSTIPATION; Start 05/06/17 at 17:00 Citric Acid/ Sodium Citrate (Bicitra) 30 ml BID PO Last administered on 09:09; Admin Dose 30 ML; Start 05/06/17 at 21:00 Nystatin (Nystatin Powder) 1 applic BID TOP Last administered on 06/09/17 10: 14; Admin Dose 1 APPLIC; Start 05/09/17 at 21:00 Collagenase (Santyl) 1 applic DAILY TOP Last administered on 06/09/17 09:40; Admin Dose 1 APPLIC; Start 05/09/17 at 15:00 Collagenase (Santyl) 1 applic PRN PRN TOP WOUND CARE; Start 05/09/17 at 14:00 Miscellaneous Information 1 ea NOTE XX ; Start 05/11/17 at 08:00 Glucose (Glutose) 15 gm Q15M PRN PO DECREASED GLUCOSE; Start 05/11/17 at 08:00 Glucose (Glutose) 22.5 gm Q15M PRN PO DECREASED GLUCOSE; Start 05/11/17 at 08: 00 Dextrose (D50w Syringe) 25 ml Q15M PRN IV DECREASED GLUCOSE Last administered on 05/28/17 00:53; Admin Dose 25 ML; Start 05/11/17 at 08:00 Dextrose (D50w Syringe) 50 ml Q15M PRN IV DECREASED GLUCOSE Last administered on 05/15/17 00:11; Admin Dose 50 ML; Start 05/11/17 at 08:00 Glucagon (Glucagen) 1 mg Q15M PRN IM DECREASED GLUCOSE; Start 05/11/17 at 08:00 Glucose (Glutose) 15 gm Q15M PRN BUCCAL DECREASED GLUCOSE; Start 05/11/17 at 08 :00 Epoetin Vasyl (Epogen (Esrd)) 10,000 units [id number]@17 SC Last administered on 17:25; Admin Dose 10,000 UNITS; Start 05/13/17 at 17:00 IV Flush (NS 10 ml) 10 ml PRN PRN IV IV PROTOCOL; Start 05/15/17 at 17:30 Midodrine (Proamatine) 10 mg TID@,,17 GTB ; Start 05/23/17 at 09:00 Heparin Sodium (Porcine) (Heparin (5000 Units/0.5 ml)) 5,000 unit BID SC Last administered on 06/08/17 22:53; Admin Dose 5,000 UNIT; Start 05/23/17 at 09:00 Insulin Aspart NOVOLOG *MILD* ALGORI... Q4 SC Last administered on 06/01/17 21 :32; Admin Dose 1 UNIT; Start 05/26/17 at 09:00 Total Parenteral Nutrition 1,000 ml @ 40 mls/hr Q24H IV Last administered on 13:02; Admin Dose 40 MLS/HR; Start 05/27/17 at 14:00 Fat Emulsion Intravenous (Liposyn Ii 20%) 250 ml @ 31.25 mls/ hr Q24H IV Last administered on 06/08/17 09:32; Admin Dose 31.25 MLS/HR; Start 05/28/17 at 10:00 Famotidine 20 mg 20 mg DAILY IV Last administered on 06/08/17 08:02; Admin Dose 20 MG; Start 05/29/17 at 09:00 Sodium Chloride 1,000 ml @ 75 mls/hr [id number] IV Last administered on 09:40; Admin Dose 75 MLS/HR; Start 06/01/17 at 21:00 Caspofungin/ Sodium Chloride (Cancidas/NS) 250 ml @ 250 mls/hr Q24H IVPB Last administered on 06/08/17 15:37; Admin Dose 250 MLS/HR; Start 06/04/17 at 15:30 Hydrocortisone (Solu-Cortef) 10 mg Q8 IV Last administered on 06/09/17 06:08; Admin Dose 10 MG; Start 06/06/17 at 14:00 DELIA FINE DO Jun 09, 2017 10:22
--- NOTE | 2017-06-09 11:32 | CONS ---
Date/Time of Note Date/Time of Note DATE: 06/09/17 TIME: 11:30 Assessment/Plan Assessment/Plan Additional Assessment/Plan Ventilator setting; AC of 16, tidal volume 500, PEEP of 5, 30% FiO2. Assessment and recommendations; 1. Patient admitted with septic shock with bilateral pneumonia with interval improvement. 2. Advanced dementia. 3. Chronic renal insufficiency. 4. Anemia and thrombocytopenia. 5. Chronic respiratory failure which is ventilator dependent. Continue current treatment. Prognosis is poor. Consultation Date/Type/Reason Admit Date/Time May 06, 2017 at 16:34 Initial Consult Date 05/10/17 Type of Consultation: Pulmonary/critical care Referring Provider: OSMAR MONTAGUE DO 24 HR Interval Summary Free Text/Dictation Patient condition remains hemodynamically stable. Due to advanced dementia patient remains unresponsive and remains chronically ventilator dependent. General exam; elderly woman, unresponsive, currently in no distress. On ventilator via tracheostomy. Exam/Review of Systems Vital Signs Vitals Vital Signs Date Time Temp Pulse Resp B/P Pulse Ox O2 Delivery O2 Flow Rate FiO2 06/09/17 11:14 57 16 99 30 06/09/17 08:51 98.9 97/53 06/09/17 04:00 Mechanical Ventilator Intake and Output 06/08/17 06/08/17 06/09/17 15:00 23:00 07:00 Intake Total 480 ml 1370 ml Output Total 350 ml 250 ml Balance 480 ml 1020 ml -250 ml Exam HEENT exam; supple neck, no JVD. No lymphadenopathy. Midline trachea. No thyromegaly. Tracheostomy in place. Chest exam; diminished breath sounds bilaterally. No added sound. S1-S2 audible, no murmurs. Regular rhythm. Abdomen exam; soft, no organomegaly. G-tube in place. Bowel sounds audible. Extremity exam; no peripheral edema. Patient does have ecchymosis involving all 4 extremities. WAIST PLEATER exam; patient remains unresponsive. Results Result Diagram: 06/08/17 0634 06/08/17 0634 Results 24 hrs Laboratory Tests Test 06/08/17 13:00 06/08/17 17:02 06/08/17 23:02 06/09/17 01:42 Bedside Glucose 94 100 105 95 Test 06/09/17 06:54 06/09/17 08:59 Bedside Glucose 97 92 Medications Medications Current Medications Bisacodyl (Dulcolax Supp) 10 mg Q48H OR Last administered on 06/07/17 17:24; Admin Dose 10 MG; Start 05/06/17 at 17:00 Sodium Biphosphate/ Sodium Phosphate (Fleet Enema Pediatric) 118 ml Q72H PRN [place] CONSTIPATION; Start 05/06/17 at 17:00 Citric Acid/ Sodium Citrate (Bicitra) 30 ml BID PO Last administered on 09:09; Admin Dose 30 ML; Start 05/06/17 at 21:00 Nystatin (Nystatin Powder) 1 applic BID TOP Last administered on 06/09/17 10: 19; Admin Dose 1 APPLIC; Start 05/09/17 at 21:00 Collagenase (Santyl) 1 applic DAILY TOP Last administered on 06/09/17 10:19; Admin Dose 1 APPLIC; Start 05/09/17 at 15:00 Collagenase (Santyl) 1 applic PRN PRN TOP WOUND CARE; Start 05/09/17 at 14:00 Miscellaneous Information 1 ea NOTE XX ; Start 05/11/17 at 08:00 Glucose (Glutose) 15 gm Q15M PRN PO DECREASED GLUCOSE; Start 05/11/17 at 08:00 Glucose (Glutose) 22.5 gm Q15M PRN PO DECREASED GLUCOSE; Start 05/11/17 at 08: 00 Dextrose (D50w Syringe) 25 ml Q15M PRN IV DECREASED GLUCOSE Last administered on 05/28/17 00:53; Admin Dose 25 ML; Start 05/11/17 at 08:00 Dextrose (D50w Syringe) 50 ml Q15M PRN IV DECREASED GLUCOSE Last administered on 05/15/17 00:11; Admin Dose 50 ML; Start 05/11/17 at 08:00 Glucagon (Glucagen) 1 mg Q15M PRN IM DECREASED GLUCOSE; Start 05/11/17 at 08:00 Glucose (Glutose) 15 gm Q15M PRN BUCCAL DECREASED GLUCOSE; Start 05/11/17 at 08 :00 Epoetin Vasyl (Epogen (Esrd)) 10,000 units MoWeFr@17 SC Last administered on 17:25; Admin Dose 10,000 UNITS; Start 05/13/17 at 17:00 IV Flush (NS 10 ml) 10 ml PRN PRN IV IV PROTOCOL; Start 05/15/17 at 17:30 Heparin Sodium (Porcine) (Heparin (5000 Units/0.5 ml)) 5,000 unit BID SC Last administered on 06/08/17 22:53; Admin Dose 5,000 UNIT; Start 05/23/17 at 09:00 Insulin Aspart NOVOLOG *MILD* ALGORI... Q4 SC Last administered on 06/01/17 21 :32; Admin Dose 1 UNIT; Start 05/26/17 at 09:00 Total Parenteral Nutrition 1,000 ml @ 40 mls/hr Q24H IV Last administered on 13:02; Admin Dose 40 MLS/HR; Start 05/27/17 at 14:00 Fat Emulsion Intravenous (Liposyn Ii 20%) 250 ml @ 31.25 mls/ hr Q24H IV Last administered on 06/09/17 10:20; Admin Dose 31.25 MLS/HR; Start 05/28/17 at 10:00 Famotidine 20 mg 20 mg DAILY IV Last administered on 06/08/17 08:02; Admin Dose 20 MG; Start 05/29/17 at 09:00 Sodium Chloride 1,000 ml @ 75 mls/hr [id number] IV Last administered on 09:40; Admin Dose 75 MLS/HR; Start 06/01/17 at 21:00 Caspofungin/ Sodium Chloride (Cancidas/NS) 250 ml @ 250 mls/hr Q24H IVPB Last administered on 06/08/17 15:37; Admin Dose 250 MLS/HR; Start 06/04/17 at 15:30 Hydrocortisone (Solu-Cortef) 10 mg Q8 IV Last administered on 06/09/17 06:08; Admin Dose 10 MG; Start 06/06/17 at 14:00 SMITH RUZI Jun 09, 2017 11:32
[2017-06-09 12:08] LABS: CALCIUM 8.5 mg/dl (8.4-10.2); CREATININE 2.41 mg/dl (0.44-1.00); POTASSIUM 3.6 mmol/L (3.5-5.1)
--- NOTE | 2017-06-09 14:15 | CONS ---
Date/Time of Note Date/Time of Note DATE: 06/09/17 TIME: 14:14 Assessment/Plan Assessment/Plan Chief Complaint/Hosp Course SUBJECTIVE DATA: No acute changes. Remains obtunded, no fevers, NAD MICROBIOLOGY: Blood culture since June 03 is negative. Urine culture growing Gillian albicans. Abx: Cancidas INDWELLING: Trach, PICC line, and Collazo. PHYSICAL EXAMINATION: GENERAL: Chronically ill-appearing, elderly woman, who is nonverbal, noncommunicative, in no distress. HEENT: Head atraumatic, normocephalic. Sclerae anicteric. Buccal mucosa dry. NECK: Supple. Tracheostomy present. CHEST: Rise symmetrical. Breath sounds with bilateral scattered crackles. HEART: S1, S2. ABDOMEN: Soft, distended. Bowel sounds hypoactive. EXTREMITIES: With bilateral edema. SKIN: With generalized edema and erythema. ASSESSMENT: 1. Status post shock, multifactorial. 2. Gillian albicans urinary tract infection (UTI). 3. S/p Healthcare associated pneumonia 4. G-tube malfunction/GC fistula. 5. Chronic encephalopathy. 6. Acute on chronic kidney disease. 7. Diabetes. PLAN: Remains unchanged, continue present care, cano cx prn, GI/surgical rec-s DW staff Problems: Consultation Date/Type/Reason Admit Date/Time May 06, 2017 at 16:34 Initial Consult Date 05/09/17 Type of Consultation: id Referring Provider: OSMAR MONTAGUE DO Exam/Review of Systems Vital Signs Vitals Vital Signs Date Time Temp Pulse Resp B/P Pulse Ox O2 Delivery O2 Flow Rate FiO2 06/09/17 13:45 57 06/09/17 11:43 98.9 18 103/54 100 06/09/17 11:14 30 06/09/17 04:00 Mechanical Ventilator Intake and Output 06/08/17 06/08/17 06/09/17 15:00 23:00 07:00 Intake Total 480 ml 1370 ml Output Total 350 ml 250 ml Balance 480 ml 1020 ml -250 ml Results Result Diagram: 06/08/17 0634 06/09/17 1120 Results 24 hrs Laboratory Tests Test 06/08/17 17:02 06/08/17 23:02 06/09/17 01:42 06/09/17 06:54 Bedside Glucose 100 105 95 97 Test 06/09/17 08:59 06/09/17 11:20 06/09/17 12:27 06/09/17 12:28 Bedside Glucose 92 76 97 Sodium Level 142 Potassium Level 3.6 Chloride Level 102 Carbon Dioxide Level 34 H Anion Gap 10 # Blood Urea Nitrogen 52 H Creatinine 2.41 H Glucose Level 84 Calcium Level 8.5 Medications Medications Current Medications Bisacodyl (Dulcolax Supp) 10 mg Q48H MD Last administered on 06/07/17 17:24; Admin Dose 10 MG; Start 05/06/17 at 17:00 Sodium Biphosphate/ Sodium Phosphate (Fleet Enema Pediatric) 118 ml Q72H PRN MD CONSTIPATION; Start 05/06/17 at 17:00 Citric Acid/ Sodium Citrate (Bicitra) 30 ml BID PO Last administered on 09:09; Admin Dose 30 ML; Start 05/06/17 at 21:00 Nystatin (Nystatin Powder) 1 applic BID TOP Last administered on 06/09/17 10: 19; Admin Dose 1 APPLIC; Start 05/09/17 at 21:00 Collagenase (Santyl) 1 applic DAILY TOP Last administered on 06/09/17 10:19; Admin Dose 1 APPLIC; Start 05/09/17 at 15:00 Collagenase (Santyl) 1 applic PRN PRN TOP WOUND CARE; Start 05/09/17 at 14:00 Miscellaneous Information 1 ea NOTE XX ; Start 05/11/17 at 08:00 Glucose (Glutose) 15 gm Q15M PRN PO DECREASED GLUCOSE; Start 05/11/17 at 08:00 Glucose (Glutose) 22.5 gm Q15M PRN PO DECREASED GLUCOSE; Start 05/11/17 at 08: 00 Dextrose (D50w Syringe) 25 ml Q15M PRN IV DECREASED GLUCOSE Last administered on 05/28/17 00:53; Admin Dose 25 ML; Start 05/11/17 at 08:00 Dextrose (D50w Syringe) 50 ml Q15M PRN IV DECREASED GLUCOSE Last administered on 05/15/17 00:11; Admin Dose 50 ML; Start 05/11/17 at 08:00 Glucagon (Glucagen) 1 mg Q15M PRN IM DECREASED GLUCOSE; Start 05/11/17 at 08:00 Glucose (Glutose) 15 gm Q15M PRN BUCCAL DECREASED GLUCOSE; Start 05/11/17 at 08 :00 Epoetin Vasyl (Epogen (Esrd)) 10,000 units MoWeFr@17 SC Last administered on 17:25; Admin Dose 10,000 UNITS; Start 05/13/17 at 17:00 IV Flush (NS 10 ml) 10 ml PRN PRN IV IV PROTOCOL; Start 05/15/17 at 17:30 Heparin Sodium (Porcine) (Heparin (5000 Units/0.5 ml)) 5,000 unit BID SC Last administered on 06/08/17 22:53; Admin Dose 5,000 UNIT; Start 05/23/17 at 09:00 Insulin Aspart NOVOLOG *MILD* ALGORI... Q4 SC Last administered on 06/01/17 21 :32; Admin Dose 1 UNIT; Start 05/26/17 at 09:00 Total Parenteral Nutrition 1,000 ml @ 40 mls/hr Q24H IV Last administered on 13:02; Admin Dose 40 MLS/HR; Start 05/27/17 at 14:00 Fat Emulsion Intravenous (Liposyn Ii 20%) 250 ml @ 31.25 mls/ hr Q24H IV Last administered on 06/09/17 10:20; Admin Dose 31.25 MLS/HR; Start 05/28/17 at 10:00 Famotidine 20 mg 20 mg DAILY IV Last administered on 06/08/17 08:02; Admin Dose 20 MG; Start 05/29/17 at 09:00 Sodium Chloride 1,000 ml @ 75 mls/hr [id number] IV Last administered on 09:40; Admin Dose 75 MLS/HR; Start 06/01/17 at 21:00 Caspofungin/ Sodium Chloride (Cancidas/NS) 250 ml @ 250 mls/hr Q24H IVPB Last administered on 06/08/17 15:37; Admin Dose 250 MLS/HR; Start 06/04/17 at 15:30 Hydrocortisone (Solu-Cortef) 10 mg Q8 IV Last administered on 06/09/17 06:08; Admin Dose 10 MG; Start 06/06/17 at 14:00 DOROTHY CORONADO NP Jun 09, 2017 14:15
[2017-06-09] MEDS: TPN 1,000 ML IV SCH (14:37)
[2017-06-09] MEDS: CASPOFUNGIN 50 MG in SOD CHLORIDE 0.9% 250 ML IVPB SCH (15:31)
--- NOTE | 2017-06-09 16:44 | PN ---
Date/Time of Note Date/Time of Note DATE: 06/08/17 TIME: 16:40 Assessment/Plan Lines/Catheters IV Catheter Type (from Nrs): PICC Line Collazo in Place (from Nrs): Yes Assessment/Plan Chief Complaint/Hosp Course 1. G-tube dislodgement: replaced with gjtube by GI, continued yellow drainage peristomal; gj tube replacement attempt-unable due to too large of an opening; currently on tpn. Chemical code only. -no surgical intervention -? palliative/hospice 2. Septic shock: multifactorial: 2/2: pneumonia + cellulitis + wounds; Improved -abx -supportive 3. Respiratory failure with trach: PNA with pulm edema; comfortable on vent; large sputum -pulmonary toilet -abx -supportive 4.STARLA with CKD; anuric currently -judicious fluids -renally dose meds -per nephrology 5. Normocytic anemia: previous coffee ground drainage peristoma;no acute bleed noted; h/h critically low, s/p transfusion -monitor and transfuse as needed 6. CHF -medical management 7. Diabetes with hypoglycemia -medical management 8. Acute encephalopathy with history of advanced dementia; unchanged neurologically -supportive 9. Decubitus wound. -continue wound care. 10. Peristomal cellulitis 2/2 #1; +pseudomonas: improving with drainage to ostomy bag -local care 11. Pancytopenia -supportive Thank you, Late entry 06/08 Problems: Subjective 24 Hr Interval Summary Withdraws from pain. Does not follow commands. Min drainage from GCF. Nonverbal indicators of pain not present. No fevers, sz, cough, bloating, vomiting, diarrhea. TPN. Exam/Review of Systems Vital Signs Vitals Vital Signs Date Time Temp Pulse Resp B/P Pulse Ox O2 Delivery O2 Flow Rate FiO2 06/09/17 15:35 98.7 61 18 105/52 98 06/09/17 15:03 30 06/09/17 04:00 Mechanical Ventilator Intake and Output 06/08/17 06/08/17 06/09/17 15:00 23:00 07:00 Intake Total 480 ml 1370 ml Output Total 350 ml 250 ml Balance 480 ml 1020 ml -250 ml Exam Free Text/Dictation Constitutional: non-verbal, awake, nonresponsive, ill-appearing. No oriented Psych: withdraws from pain Head: atraumatic, normocephalic Eyes: nl sclera ENMT: mucosa pink and moist, missing teeth Neck: non-tender, other (trach), supple Respiratory: diminished Cardiovascular: edema Gastrointestinal: distended (mod), other (stoma with min/mod yellow/green drainage to ostomy bag), soft, nontender Musculoskeletal: No muscle tone Extremities: edema worsened Neurological: No nl mental status, No nl speech Skin: other (abdominal/peristomal/breast fold redness improved) Results Result Diagram: 06/08/17 0634 06/09/17 1120 JOCELYN FINE MD Jun 09, 2017 16:44
--- NOTE | 2017-06-09 16:51 | PN ---
Date/Time of Note Date/Time of Note DATE: 06/09/17 TIME: 16:47 Assessment/Plan Lines/Catheters IV Catheter Type (from Nrs): PICC Line Collazo in Place (from Nrs): Yes Assessment/Plan Chief Complaint/Hosp Course 1. G-tube dislodgement: replaced with gjtube by GI, continued yellow drainage peristomal; gj tube replacement attempt-unable due to too large of an opening; currently on tpn. Chemical code only. -no surgical intervention -? palliative/hospice 2. Septic shock: multifactorial: 2/2: pneumonia + cellulitis + wounds; Improved -abx -supportive 3. Respiratory failure with trach: PNA with pulm edema; comfortable on vent; large sputum -pulmonary toilet -abx -supportive 4.STARLA with CKD; anuric currently -judicious fluids -renally dose meds -per nephrology 5. Normocytic anemia: previous coffee ground drainage peristoma;no acute bleed noted; h/h critically low, s/p transfusion -monitor and transfuse as needed 6. CHF -medical management 7. Diabetes with hypoglycemia -medical management 8. Acute encephalopathy with history of advanced dementia; unchanged neurologically -supportive 9. Decubitus wound. -continue wound care. 10. Peristomal cellulitis 2/2 #1; +pseudomonas: improving with drainage to ostomy bag -local care 11. Pancytopenia -supportive Thank you, Problems: Subjective 24 Hr Interval Summary Withdraws from pain. Min drainage from GCF. Nonverbal indicators of pain not present. No fevers, sz, vomiting, diarrhea. TPN Exam/Review of Systems Vital Signs Vitals Vital Signs Date Time Temp Pulse Resp B/P Pulse Ox O2 Delivery O2 Flow Rate FiO2 06/09/17 15:35 98.7 61 18 105/52 98 06/09/17 15:03 30 06/09/17 04:00 Mechanical Ventilator Intake and Output 06/08/17 06/08/17 06/09/17 15:00 23:00 07:00 Intake Total 480 ml 1370 ml Output Total 350 ml 250 ml Balance 480 ml 1020 ml -250 ml Exam Free Text/Dictation Constitutional: non-verbal, No alert, No oriented; nonresponsive Psych: non responsive Head: atraumatic, normocephalic Eyes: nl conjunctiva, nl lids ENMT: mucosa pink and dry Neck: non-tender, supple Respiratory: diminished; on face mask Cardiovascular: edema (min), sr Gastrointestinal: bowel sounds, non-tender, soft, peristomal drainage, no peg; rectal tube Genitourinary - Male: No CVA tenderness Musculoskeletal: nl extremities to inspection Extremities: edema (min; dependent), normal pulses Neurological: No nl mental status (withdraws from pain) Skin: multiple wounds: sacral and left upper back packed; Right upper back packed; left buttock wound bed pink: packed; dressings mod dry drainage Results Result Diagram: 06/08/17 0634 06/09/17 1120 JOCELYN FINE MD Jun 09, 2017 16:51
[2017-06-09] MEDS: BISACODYL 10 MG SUPP PR SCH (16:57)
[2017-06-09] MEDS: ALTEPLASE (CATHFLO) 2 MG INJ CATHETER PRN (17:23)
--- NOTE | 2017-06-09 18:56 | RADRPT ---
PROCEDURE: Portable chest x-ray. CLINICAL INDICATION: 86 years of age, female. PICC placement right arm. TECHNIQUE: Portable AP view of the chest. COMPARISON: June 02, 2017 FINDINGS: A right arm PICC line has been placed and tip overlies medial right clavicle at the junction of the right subclavian vein with right brachiocephalic vein. Suggest advancement 7 cm further into the SV C. Tracheostomy tube is in unchanged position. Atherosclerotic calcification thoracic aorta. Normal heart size. Left lower lobe atelectasis is similar to prior exam. In addition there are patchy opacities in bila teral lower lung zones that are mildly increased from prior exam that may represent atelectasis, asp iration or pneumonia. Small bilateral pleural effusions are similar or mildly increased. Negative for pneumothorax. IMPRESSION: Right arm PICC line is situated at the junction between the right subclavian vein and right brachioc ephalic vein. Recommend advancement 7 cm further into SVC. Left lower lobe atelectasis is similar to prior exam. Bilateral lower lung zone patchy opacities osuna ve increased in the interval and may represent atelectasis, aspiration or pneumonia. Small bilateral pleural effusions are similar or increased from prior exam. RPTAT: HCTS Physician Thea Date Time Electronically viewed and signed by Physician Thea on 06/09/2017 18:56 /
--- NOTE | 2017-06-09 21:10 | CONS ---
Date/Time of Note Date/Time of Note DATE: 06/09/17 TIME: 21:08 Assessment/Plan Assessment/Plan Chief Complaint/Hosp Course This 69-year-old female with a history of CVA vent dependent respiratory failure , was brought to the emergency room for the dislodgment of the GJ tube. Patient is nonverbal and no information can be obtained. No GI bleeding no chest pain no shortness of breath. Problems: Additional Assessment/Plan Additional Assessment/Plan Additional Assessment/Plan 1. Dislodged GJ tube accidentally 2. Vent dependent respiratory failure 3. Chronic encephalopathy 4. Renal failure 5. Peripheral vascular disease 6. Anemia, secondary to chronic disease no evidence of active bleeding 7. 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 Hypotension, corrected patient is off dopamine for more than 24 hours 9. Decubitus ulcer 10. Workup for adrenal insufficiency, patient is on steroid now and off dopamine 11. Sepsis Plan Continue all supportive care Surgery to fix the gastrocutaneous fistula. Blood transfusion Monitor for acute overt GI bleeding We should stop Intralipid. Patient is gaining weight especially around abdomen and this will make G or J-tube placement difficulty in the future Consultation Date/Type/Reason Admit Date/Time May 06, 2017 at 16:34 Type of Consultation: id Referring Provider: OSMAR MONTAGUE DO 24 HR Interval Summary Subjective hx not possible: pt non-verbal, pt critical Exam/Review of Systems Vital Signs Vitals Vital Signs Date Time Temp Pulse Resp B/P Pulse Ox O2 Delivery O2 Flow Rate FiO2 06/09/17 20:35 59 06/09/17 20:19 97.0 15 131/61 100 06/09/17 17:47 30 06/09/17 04:00 Mechanical Ventilator Intake and Output 06/08/17 06/08/17 06/09/17 15:00 23:00 07:00 Intake Total 480 ml 1370 ml Output Total 350 ml 250 ml Balance 480 ml 1020 ml -250 ml Exam Constitutional: alert, oriented, well developed Psych: nl mood/affect, no complaints Head: atraumatic, normocephalic Eyes: EOMI, PERRL, nl conjunctiva, nl lids, nl sclera ENMT: nl external ears & nose, nl lips & teeth, nl nasal mucosa & septum Neck: non-tender, supple Respiratory: clear to auscultation, normal air movement Cardiovascular: nl pulses, regular rate and rhythm Gastrointestinal: nl liver, spleen, non-tender, soft Musculoskeletal: nl extremities to inspection, nl gait and stance Extremities: normal pulses Neurological: 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 intact, nl mental status, nl speech, nl strength Skin: nl turgor, No rash or lesions Lymph: nl lymph nodes Results Result Diagram: 06/08/17 0634 06/09/17 1120 Results 24 hrs Laboratory Tests Test 06/08/17 23:02 06/09/17 01:42 06/09/17 06:54 06/09/17 08:59 Bedside Glucose 105 95 97 92 Test 06/09/17 11:20 06/09/17 12:27 06/09/17 12:28 06/09/17 18:32 Sodium Level 142 Potassium Level 3.6 Chloride Level 102 Carbon Dioxide Level 34 H Anion Gap 10 # Blood Urea Nitrogen 52 H Creatinine 2.41 H Glucose Level 84 Calcium Level 8.5 Bedside Glucose 76 97 78 Test 06/09/17 20:17 Bedside Glucose 79 Medications Medications Current Medications Bisacodyl (Dulcolax Supp) 10 mg Q48H [place] Last administered on 06/09/17 16:57; Admin Dose 10 MG; Start 05/06/17 at 17:00 Sodium Biphosphate/ Sodium Phosphate (Fleet Enema Pediatric) 118 ml Q72H PRN [place] CONSTIPATION; Start 05/06/17 at 17:00 Citric Acid/ Sodium Citrate (Bicitra) 30 ml BID PO Last administered on 09:09; Admin Dose 30 ML; Start 05/06/17 at 21:00 Nystatin (Nystatin Powder) 1 applic BID TOP Last administered on 06/09/17 10: 19; Admin Dose 1 APPLIC; Start 05/09/17 at 21:00 Collagenase (Santyl) 1 applic DAILY TOP Last administered on 06/09/17 10:19; Admin Dose 1 APPLIC; Start 05/09/17 at 15:00 Collagenase (Santyl) 1 applic PRN PRN TOP WOUND CARE; Start 05/09/17 at 14:00 Miscellaneous Information 1 ea NOTE XX ; Start 05/11/17 at 08:00 Glucose (Glutose) 15 gm Q15M PRN PO DECREASED GLUCOSE; Start 05/11/17 at 08:00 Glucose (Glutose) 22.5 gm Q15M PRN PO DECREASED GLUCOSE; Start 05/11/17 at 08: 00 Dextrose (D50w Syringe) 25 ml Q15M PRN IV DECREASED GLUCOSE Last administered on 05/28/17 00:53; Admin Dose 25 ML; Start 05/11/17 at 08:00 Dextrose (D50w Syringe) 50 ml Q15M PRN IV DECREASED GLUCOSE Last administered on 05/15/17 00:11; Admin Dose 50 ML; Start 05/11/17 at 08:00 Glucagon (Glucagen) 1 mg Q15M PRN IM DECREASED GLUCOSE; Start 05/11/17 at 08:00 Glucose (Glutose) 15 gm Q15M PRN BUCCAL DECREASED GLUCOSE; Start 05/11/17 at 08 :00 Epoetin Vasyl (Epogen (Esrd)) 10,000 units MoWeFr@17 SC Last administered on 17:25; Admin Dose 10,000 UNITS; Start 05/13/17 at 17:00 IV Flush (NS 10 ml) 10 ml PRN PRN IV IV PROTOCOL; Start 05/15/17 at 17:30 Heparin Sodium (Porcine) (Heparin (5000 Units/0.5 ml)) 5,000 unit BID SC Last administered on 06/08/17 22:53; Admin Dose 5,000 UNIT; Start 05/23/17 at 09:00 Insulin Aspart NOVOLOG *MILD* ALGORI... Q4 SC Last administered on 06/01/17 21 :32; Admin Dose 1 UNIT; Start 05/26/17 at 09:00 Total Parenteral Nutrition 1,000 ml @ 40 mls/hr Q24H IV Last administered on 14:37; Admin Dose 40 MLS/HR; Start 05/27/17 at 14:00 Fat Emulsion Intravenous (Liposyn Ii 20%) 250 ml @ 31.25 mls/ hr Q24H IV Last administered on 06/09/17 10:20; Admin Dose 31.25 MLS/HR; Start 05/28/17 at 10:00 Famotidine 20 mg 20 mg DAILY IV Last administered on 06/08/17 08:02; Admin Dose 20 MG; Start 05/29/17 at 09:00 Sodium Chloride 1,000 ml @ 75 mls/hr [id number] IV Last administered on 09:40; Admin Dose 75 MLS/HR; Start 06/01/17 at 21:00 Caspofungin/ Sodium Chloride (Cancidas/NS) 250 ml @ 250 mls/hr Q24H IVPB Last administered on 06/09/17 15:31; Admin Dose 250 MLS/HR; Start 06/04/17 at 15:30 Hydrocortisone (Solu-Cortef) 10 mg Q8 IV Last administered on 06/09/17 15:28; Admin Dose 10 MG; Start 06/06/17 at 14:00 SYLWIA SY MD Jun 09, 2017 21:10
[2017-06-09] MEDS ORDERED: AMIKACIN 350 MG in SOD CHLORIDE 0.9% 100 ML IVPB SCH (22:00)
[2017-06-10] VITALS (22 sets, daily range): BP systolic 100–129; BP diastolic 52–65; PULSE 58–64; RESP 16–23
[2017-06-10] MEDS: INSULIN ASPART [NOVOLOG] 3 ML PEN SC SCH ×6 (01:00→22:00)
[2017-06-10] MEDS: GLUCAGON 1 MG INJ IM PRN ×2 (01:41→12:10)
[2017-06-10] MEDS: HYDROCORTISONE 100 MG INJ IV SCH ×3 (06:00→21:56)
[2017-06-10] MEDS: SOD CHLORIDE 0.9% 1,000 ML IV SCH ×2 (06:20→18:24)
[2017-06-10] MEDS: CITRIC ACID/NA CITRATE 30 ML CUP PO SCH ×2 (08:44→21:00)
[2017-06-10] MEDS: FAT EMULSION 20% 250 ML IV SCH (08:44)
[2017-06-10] MEDS: HEPARIN 5,000 UNIT/0.5 ML VIAL SC SCH ×3 (09:00→22:05)
[2017-06-10] MEDS: DEXTROSE 50% 50 ML SYRINGE IV PRN ×3 (09:04→16:12)
[2017-06-10] MEDS: FAMOTIDINE 20 MG INJ IV SCH (09:20)
--- NOTE | 2017-06-10 09:37 | PN ---
Date/Time of Note Date/Time of Note DATE: 06/10/17 TIME: 09:32 Assessment/Plan Lines/Catheters IV Catheter Type (from Nrs): Saline Lock Collazo in Place (from Nrs): Yes Assessment/Plan Chief Complaint/Hosp Course 1. G-tube dislodgement: replaced with gjtube by GI, continued yellow drainage peristomal; gj tube replacement attempt-unable due to too large of an opening; Now chemical code; currently on tpn; -hospice/palliative is the best option for this patient -no surgical intervention 2. Septic shock: multifactorial: 2/2: pneumonia + cellulitis + wounds; persistent, off pressors again, hypothermic, hypoglycemic -abx -supportive 3. Respiratory failure with trach: PNA with pulm edema; comfortable on vent -pulmonary toilet -abx -supportive 4.STARLA with CKD; anuric currently -judicious fluids -renally dose meds -per nephrology 5. Normocytic anemia: previous coffee ground drainage peristoma;no acute bleed noted; s/p transfusion -monitor and transfuse as needed 6. CHF -medical management 7. Diabetes with hypoglycemia -medical management 8. Acute encephalopathy with history of advanced dementia; unchanged neurologically -supportive 9. Decubitus wound. -continue wound care. 10. Peristomal cellulitis 2/2 #1; +pseudomonas: improving with drainage to ostomy bag -local care 11. Pancytopenia -supportive Patient seen and examined in collaboration with Dr. Meliton Blackburn. Thank you. Problems: Subjective 24 Hr Interval Summary Hypothermic, bradycardic. Hypoglycemic. No change in neuro status. comfortable on vent. No sob, sz, excessive GCF drainage. Nonverbal indicators of pain not present. +bowel function Exam/Review of Systems Vital Signs Vitals Vital Signs Date Time Temp Pulse Resp B/P Pulse Ox O2 Delivery O2 Flow Rate FiO2 06/10/17 09:11 58 06/10/17 07:45 17 30 06/10/17 07:45 94.1 117/57 98 06/09/17 04:00 Mechanical Ventilator Intake and Output 06/09/17 06/09/17 06/10/17 15:00 23:00 07:00 Output Total 30 ml 60 ml Balance -30 ml -60 ml Exam Free Text/Dictation Constitutional: non-verbal, awake, nonresponsive, ill-appearing. No oriented Psych: withdraws from pain Head: atraumatic, normocephalic Eyes: nl sclera ENMT: mucosa pink and moist, missing teeth Neck: non-tender, other (trach), supple Respiratory: diminished Cardiovascular: edema Gastrointestinal: distended (mod), other (stoma with min/mod yellow/green drainage to ostomy bag), soft, nontender Musculoskeletal: No muscle tone Extremities: edema worsened Neurological: No nl mental status, No nl speech Skin: other (abdominal/peristomal/breast fold redness improved), cool skin Results Result Diagram: 06/08/17 0634 06/09/17 1120 SHADI CALDERON NP Jun 10, 2017 09:37
[2017-06-10] MEDS: NYSTATIN 30 GM POWDER BTL TOP SCH ×2 (10:30→21:56)
[2017-06-10 10:53] LABS: WHITE BLOOD COUNT 5.8 10^3/ul (4.8-10.8)
[2017-06-10 10:54] LABS: BASOPHILS % 0.2 % (0.0-2.0); EOSINOPHILS # 0.5 10^3/ul (0.0-0.5); EOSINOPHILS % 8.7 % (0.0-7.0); HEMATOCRIT 33.3 % (37.0-47.0); HEMOGLOBIN 10.3 g/dl (12.0-16.0); LYMPHOCYTES % 17.5 % (15.0-51.0); MEAN CORPUSCULAR HEMOGLOBIN 29.8 pg (29.0-33.0); MEAN CORPUSCULAR HGB CONC 30.9 g/dl (32.0-37.0); MEAN CORPUSCULAR VOLUME 96.2 fl (82.0-101.0); MEAN PLATELET VOLUME 11.5 fl (7.4-10.4); MONOCYTE # 0.5 10^3/ul (0.3-0.9); MONOCYTES % 8.3 % (0.0-11.0); NEUTROPHILS % 65.1 % (39.0-77.0); NUCLEATED RED BLOOD CELLS% 0.3 /100WBC (0.0-0.0); PLATELET COUNT 110 10^3/UL (140-415); RED BLOOD COUNT 3.46 10^6/ul (4.20-5.40); RED CELL DISTRIBUTION WIDTH 21.5 % (11.5-14.5)
--- NOTE | 2017-06-10 10:55 | PN ---
Date/Time of Note Date/Time of Note DATE: 06/10/17 TIME: 10:55 Assessment/Plan VTE Prophylaxis VTE Prophylaxis Intervention: other Lines/Catheters IV Catheter Type (from Nrs): Saline Lock Urinary Cath still in place: Yes Reason Cath still needed: urinary retention Assessment/Plan Chief Complaint/Hosp Course SUBJECTIVE DATA: The patient remains critically ill. The patient is currently off pressor support. Blood pressures remain stable. Patient remains oligoanuric. No new rash, fever, chills, diaphoresis, hemoptysis, hematemesis, hematochezia. s/p two units of packed red blood cells with stable H/H since has bleeding from mouth area (no seizure reported) vent settings and imaging studies were reviewed OBJECTIVE DATA: HEENT: Head is normocephalic. NECK: Supple. HEART: Regular rate. LUNGS: Diminished breath sounds at the base. ABDOMEN: Soft, nontender to palpation. Positive gastrocutaneous fistula. EXTREMITIES: Negative for clubbing, cyanosis. Positive edema. DERMATOLOGIC: No rashes. MUSCULOSKELETAL: No joint effusion. NEUROLOGIC: No change in exam. MEDICATIONS: Reviewed. assessment and plan: 1. Septic shock, etiology is multifactorial. The patient has currently been weaned off pressors. Will continue current treatment plan. Antibiotics, continue IV fluids. Continue to monitor. continues to be hypothermic 2. Anemia. s/p transfusion 3. Questionable adrenal insufficiency. The patient was placed on stress steroids, now being tapered off. Appreciate endocrine evaluation. 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 Follow up with General Surgery. 5. Oligoanuric acute kidney injury on top of chronic kidney disease stage IV. Etiology secondary to ATN, septic and septic acute kidney injury. Plan is to give diuretic challenge. dialysis is futile in this patient 6. Ventilatory-dependent respiratory failure. Vent settings reviewed. ABGs reviewed. Continue to monitor. 7. Hyponatremia, etiology secondary to acute kidney injury in conjunction with hypotonic fluids. The patient's sodium levels have slowly been improving. Continue to monitor. 8. Acute encephalopathy and advanced dementia, etiology toxic metabolic. 9. Volume overload, etiology secondary to chronic kidney disease, catheter leak. The patient be given diuretic challenge. Will monitor closely. 10. Diabetes. Continue Accu-Cheks and sliding scale. 11. Nutrition. Continue total parenteral nutrition. She has a GCF which is healing very slowly 12. Decubitus wound. Continue wound care. 13. Metabolic acidosis secondary to acute kidney injury. The patient's ABG shows appropriate compensation. Will continue to monitor. the patient has almost no chance of meaningful recovery. continuation of ongoing aggressive care is futile and medically inappropriate. will discuss with bioethics Problems: Exam/Review of Systems Vital Signs Vitals Vital Signs Date Time Temp Pulse Resp B/P Pulse Ox O2 Delivery O2 Flow Rate FiO2 06/10/17 09:11 58 06/10/17 09:05 16 99 30 06/10/17 07:45 94.1 117/57 06/09/17 04:00 Mechanical Ventilator Intake and Output 06/09/17 06/09/17 06/10/17 15:00 23:00 07:00 Output Total 30 ml 60 ml Balance -30 ml -60 ml Results Result Diagram: 06/08/17 0634 06/09/17 1120 Results 24 hrs Laboratory Tests Test 06/09/17 11:20 06/09/17 12:27 06/09/17 12:28 06/09/17 16:58 Sodium Level 142 Potassium Level 3.6 Chloride Level 102 Carbon Dioxide Level 34 H Anion Gap 10 # Blood Urea Nitrogen 52 H Creatinine 2.41 H Glucose Level 84 Calcium Level 8.5 Bedside Glucose 76 97 85 Test 06/09/17 18:32 06/09/17 20:17 06/10/17 01:34 06/10/17 02:03 Bedside Glucose 78 79 67 L 84 Test 06/10/17 06:27 06/10/17 08:55 06/10/17 09:22 06/10/17 09:48 Bedside Glucose 83 60 L 62 L 70 Test 06/10/17 10:10 White Blood Count Pending Red Blood Count Pending Hemoglobin Pending Hematocrit Pending Mean Corpuscular Volume Pending Mean Corpuscular Hemoglobin Pending Mean Corpuscular Hemoglobin Concent Pending Red Cell Distribution Width Pending Platelet Count Pending Mean Platelet Volume Pending Bedside Glucose 72 Medications Medications Current Medications Bisacodyl (Dulcolax Supp) 10 mg Q48H [place] Last administered on 06/09/17t 16:57; Admin Dose 10 MG; Start 05/06/17 at 17:00 Sodium Biphosphate/ Sodium Phosphate (Fleet Enema Pediatric) 118 ml Q72H PRN [place] CONSTIPATION; Start 05/06/17 at 17:00 Citric Acid/ Sodium Citrate (Bicitra) 30 ml BID PO Last administered on 09:09; Admin Dose 30 ML; Start 05/06/17 at 21:00 Nystatin (Nystatin Powder) 1 applic BID TOP Last administered on 06/09/17 10: 19; Admin Dose 1 APPLIC; Start 05/09/17 at 21:00 Collagenase (Santyl) 1 applic DAILY TOP Last administered on 06/09/17 10:19; Admin Dose 1 APPLIC; Start 05/09/17 at 15:00 Collagenase (Santyl) 1 applic PRN PRN TOP WOUND CARE; Start 05/09/17 at 14:00 Miscellaneous Information 1 ea NOTE XX ; Start 05/11/17 at 08:00 Glucose (Glutose) 15 gm Q15M PRN PO DECREASED GLUCOSE; Start 05/11/17 at 08:00 Glucose (Glutose) 22.5 gm Q15M PRN PO DECREASED GLUCOSE; Start 05/11/17 at 08: 00 Dextrose (D50w Syringe) 25 ml Q15M PRN IV DECREASED GLUCOSE Last administered on 06/10/17 09:24; Admin Dose 25 ML; Start 05/11/17 at 08:00 Dextrose (D50w Syringe) 50 ml Q15M PRN IV DECREASED GLUCOSE Last administered on 05/15/17 00:11; Admin Dose 50 ML; Start 05/11/17 at 08:00 Glucagon (Glucagen) 1 mg Q15M PRN IM DECREASED GLUCOSE Last administered on 01:41; Admin Dose 1 MG; Start 05/11/17 at 08:00 Glucose (Glutose) 15 gm Q15M PRN BUCCAL DECREASED GLUCOSE Last administered on 06/10/17 09:49; Admin Dose 15 GM; Start 05/11/17 at 08:00 Epoetin Vasyl (Epogen (Esrd)) 10,000 units [id number]@17 SC Last administered on 17:25; Admin Dose 10,000 UNITS; Start 05/13/17 at 17:00 IV Flush (NS 10 ml) 10 ml PRN PRN IV IV PROTOCOL; Start 05/15/17 at 17:30 Heparin Sodium (Porcine) (Heparin (5000 Units/0.5 ml)) 5,000 unit BID SC Last administered on 06/08/17 22:53; Admin Dose 5,000 UNIT; Start 05/23/17 at 09:00 Insulin Aspart NOVOLOG *MILD* ALGORI... Q4 SC Last administered on 06/01/17 21 :32; Admin Dose 1 UNIT; Start 05/26/17 at 09:00 Total Parenteral Nutrition 1,000 ml @ 40 mls/hr Q24H IV Last administered on 14:37; Admin Dose 40 MLS/HR; Start 05/27/17 at 14:00 Fat Emulsion Intravenous (Liposyn Ii 20%) 250 ml @ 31.25 mls/ hr Q24H IV Last administered on 06/09/17 10:20; Admin Dose 31.25 MLS/HR; Start 05/28/17 at 10:00 Famotidine 20 mg 20 mg DAILY IV Last administered on 06/10/17 09:20; Admin Dose 20 MG; Start 05/29/17 at 09:00 Sodium Chloride 1,000 ml @ 75 mls/hr [id number] IV Last administered on 09:40; Admin Dose 75 MLS/HR; Start 06/01/17 at 21:00 Caspofungin/ Sodium Chloride (Cancidas/NS) 250 ml @ 250 mls/hr Q24H IVPB Last administered on 06/09/17 15:31; Admin Dose 250 MLS/HR; Start 06/04/17 at 15:30 Hydrocortisone (Solu-Cortef) 10 mg Q8 IV Last administered on 06/09/17 15:28; Admin Dose 10 MG; Start 06/06/17 at 14:00 DELIA FINE DO Jun 10, 2017 10:55
--- NOTE | 2017-06-10 11:38 | CONS ---
Date/Time of Note Date/Time of Note DATE: 06/10/17 TIME: 11:36 Assessment/Plan Assessment/Plan Additional Assessment/Plan Ventilator setting; AC of 16, tidal volume 500, PEEP of 5, 30% FiO2. Chest x-ray was reviewed from yesterday which is showing chronic appearing fibrotic changes more pronounced in lower lobes bilaterally. Assessment and recommendations; 1. Patient with history of chronic respiratory failure and advanced dementia admitted for bilateral pneumonia currently on appropriate antibiotic regimen. 2. Chronic renal insufficiency. 3. Mild anemia and thrombocytopenia. Continue current supportive care. Prognosis is very poor. Consultation Date/Type/Reason Admit Date/Time May 06, 2017 at 16:34 Initial Consult Date 05/10/17 Type of Consultation: Pulmonary Referring Provider: OSMAR MONTAGUE DO 24 HR Interval Summary Free Text/Dictation Patient condition remains stable. Remains unresponsive due to advanced dementia. Also remains chronically ventilator dependent. General exam; elderly woman, on ventilator via tracheostomy currently in no distress. Unresponsive. Exam/Review of Systems Vital Signs Vitals Vital Signs Date Time Temp Pulse Resp B/P Pulse Ox O2 Delivery O2 Flow Rate FiO2 06/10/17 11:20 65 17 99 30 06/10/17 07:45 94.1 117/57 06/09/17 04:00 Mechanical Ventilator Intake and Output 06/09/17 06/09/17 06/10/17 15:00 23:00 07:00 Output Total 30 ml 60 ml Balance -30 ml -60 ml Exam HEENT exam; supple neck, positive JVD. No lymphadenopathy. Midline trachea. No thyromegaly. Tracheostomy in place. Insertion site is clean. Chest exam; diminished breath sounds bilaterally. No added sound. S1-S2 audible, no murmurs. Regular rhythm. Abdomen exam; soft, G-tube in place. Bowel sounds audible. Extremity exam; trace generalized edema. Patient has a multiple ecchymosis involving all 4 extremities. There are mild flexion contractions involving all 4 extremities as well. 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 Results Result Diagram: 06/10/17 1010 06/09/17 1120 Results 24 hrs Laboratory Tests Test 06/09/17 12:27 06/09/17 12:28 06/09/17 16:58 06/09/17 18:32 Bedside Glucose 76 97 85 78 Test 06/09/17 20:17 06/10/17 01:34 06/10/17 02:03 06/10/17 06:27 Bedside Glucose 79 67 L 84 83 Test 06/10/17 08:55 06/10/17 09:22 06/10/17 09:48 06/10/17 10:10 Bedside Glucose 60 L 62 L 70 72 White Blood Count 5.8 # Red Blood Count 3.46 L Hemoglobin 10.3 L Hematocrit 33.3 L Mean Corpuscular Volume 96.2 Mean Corpuscular Hemoglobin 29.8 Mean Corpuscular Hemoglobin Concent 30.9 L Red Cell Distribution Width 21.5 H Platelet Count 110 L Mean Platelet Volume 11.5 H Neutrophils % 65.1 Lymphocytes % 17.5 Monocytes % 8.3 Eosinophils % 8.7 H Basophils % 0.2 Nucleated Red Blood Cells % 0.3 H Neutrophils # (Manual) 4 Lymphocytes # 1.0 Monocytes # 0.5 Eosinophils # 0.5 Basophils # 0.0 Nucleated Red Blood Cells # 0.0 Test 06/10/17 10:52 Bedside Glucose 73 Medications Medications Current Medications Bisacodyl (Dulcolax Supp) 10 mg Q48H MD Last administered on 06/09/17 16:57; Admin Dose 10 MG; Start 05/06/17 at 17:00 Sodium Biphosphate/ Sodium Phosphate (Fleet Enema Pediatric) 118 ml Q72H PRN [place] CONSTIPATION; Start 05/06/17 at 17:00 Citric Acid/ Sodium Citrate (Bicitra) 30 ml BID PO Last administered on 09:09; Admin Dose 30 ML; Start 05/06/17 at 21:00 Nystatin (Nystatin Powder) 1 applic BID TOP Last administered on 06/09/17 10: 19; Admin Dose 1 APPLIC; Start 05/09/17 at 21:00 Collagenase (Santyl) 1 applic DAILY TOP Last administered on 06/09/17 10:19; Admin Dose 1 APPLIC; Start 05/09/17 at 15:00 Collagenase (Santyl) 1 applic PRN PRN TOP WOUND CARE; Start 05/09/17 at 14:00 Miscellaneous Information 1 ea NOTE XX ; Start 05/11/17 at 08:00 Glucose (Glutose) 15 gm Q15M PRN PO DECREASED GLUCOSE; Start 05/11/17 at 08:00 Glucose (Glutose) 22.5 gm Q15M PRN PO DECREASED GLUCOSE; Start 05/11/17 at 08: 00 Dextrose (D50w Syringe) 25 ml Q15M PRN IV DECREASED GLUCOSE Last administered on 06/10/17 09:24; Admin Dose 25 ML; Start 05/11/17 at 08:00 Dextrose (D50w Syringe) 50 ml Q15M PRN IV DECREASED GLUCOSE Last administered on 05/15/17 00:11; Admin Dose 50 ML; Start 05/11/17 at 08:00 Glucagon (Glucagen) 1 mg Q15M PRN IM DECREASED GLUCOSE Last administered on 01:41; Admin Dose 1 MG; Start 05/11/17 at 08:00 Glucose (Glutose) 15 gm Q15M PRN BUCCAL DECREASED GLUCOSE Last administered on 06/10/17 09:49; Admin Dose 15 GM; Start 05/11/17 at 08:00 Epoetin Vasyl (Epogen (Esrd)) 10,000 units MoWeFr@17 SC Last administered on 17:25; Admin Dose 10,000 UNITS; Start 05/13/17 at 17:00 IV Flush (NS 10 ml) 10 ml PRN PRN IV IV PROTOCOL; Start 05/15/17 at 17:30 Heparin Sodium (Porcine) (Heparin (5000 Units/0.5 ml)) 5,000 unit BID SC Last administered on 06/08/17 22:53; Admin Dose 5,000 UNIT; Start 05/23/17 at 09:00 Insulin Aspart NOVOLOG *MILD* ALGORI... Q4 SC Last administered on 06/01/17 21 :32; Admin Dose 1 UNIT; Start 05/26/17 at 09:00 Total Parenteral Nutrition 1,000 ml @ 40 mls/hr Q24H IV Last administered on 14:37; Admin Dose 40 MLS/HR; Start 05/27/17 at 14:00 Fat Emulsion Intravenous (Liposyn Ii 20%) 250 ml @ 31.25 mls/ hr Q24H IV Last administered on 06/09/17 10:20; Admin Dose 31.25 MLS/HR; Start 05/28/17 at 10:00 Famotidine 20 mg 20 mg DAILY IV Last administered on 06/10/17 09:20; Admin Dose 20 MG; Start 05/29/17 at 09:00 Sodium Chloride 1,000 ml @ 75 mls/hr [id number] IV Last administered on 09:40; Admin Dose 75 MLS/HR; Start 06/01/17 at 21:00 Caspofungin/ Sodium Chloride (Cancidas/NS) 250 ml @ 250 mls/hr Q24H IVPB Last administered on 06/09/17 15:31; Admin Dose 250 MLS/HR; Start 06/04/17 at 15:30 Hydrocortisone (Solu-Cortef) 10 mg Q8 IV Last administered on 06/09/17 15:28; Admin Dose 10 MG; Start 06/06/17 at 14:00 SMITH RUIZ Jun 10, 2017 11:38
[2017-06-10] MEDS ORDERED: LIDOCAINE 1% (MPF) 5 ML VIAL SC ONE (12:00)
--- NOTE | 2017-06-10 15:24 | CONS ---
Date/Time of Note Date/Time of Note DATE: 06/10/17 TIME: 15:23 Assessment/Plan Assessment/Plan Chief Complaint/Hosp Course SUBJECTIVE DATA: No acute changes, nonverbal and noncommunicative, comfortable on the vent temperature 94.6 pulse 64 respirations 20 blood pressure 100/52 saturation 97 on 30 FiO2 WBC 5.8 H&H 10.3 and 33.3 platelets 110 BUN 52 creatinine 2.41 on June 09 MICROBIOLOGY: Blood culture since June 03 is negative. Urine culture growing Gillian albicans. Abx: Cancidas INDWELLING: Trach, PICC line, and Collazo. PHYSICAL EXAMINATION: GENERAL: Chronically ill-appearing, elderly woman, who is nonverbal, noncommunicative, in no distress. HEENT: Head atraumatic, normocephalic. Sclerae anicteric. Buccal mucosa dry. NECK: Supple. Tracheostomy present. CHEST: Rise symmetrical. Breath sounds with bilateral scattered crackles. HEART: S1, S2. ABDOMEN: Soft, distended. Bowel sounds hypoactive. EXTREMITIES: With bilateral edema. SKIN: With generalized edema and erythema. ASSESSMENT: 1. Status post shock, multifactorial. 2. Gillian albicans urinary tract infection (UTI). 3. S/p Healthcare associated pneumonia 4. G-tube malfunction/GC fistula. 5. Chronic encephalopathy. 6. Acute on chronic kidney disease. 7. Diabetes. PLAN: Remains unchanged, continue present care, cano cx prn, GI/surgical rec-s DW staff Problems: Consultation Date/Type/Reason Admit Date/Time May 06, 2017 at 16:34 Initial Consult Date 05/09/17 Type of Consultation: id Referring Provider: OSMAR MONTAGUE DO Exam/Review of Systems Vital Signs Vitals Vital Signs Date Time Temp Pulse Resp B/P Pulse Ox O2 Delivery O2 Flow Rate FiO2 06/10/17 13:00 62 17 100 30 06/10/17 11:57 94.6 100/52 06/09/17 04:00 Mechanical Ventilator Intake and Output 06/09/17 06/09/17 06/10/17 15:00 23:00 07:00 Output Total 30 ml 60 ml Balance -30 ml -60 ml Results Result Diagram: 06/10/17 1010 06/10/17 1010 Results 24 hrs Laboratory Tests Test 06/09/17 16:58 06/09/17 18:32 06/09/17 20:17 06/10/17 01:34 Bedside Glucose 85 78 79 67 L Test 06/10/17 02:03 06/10/17 06:27 06/10/17 08:55 06/10/17 09:22 Bedside Glucose 84 83 60 L 62 L Test 06/10/17 09:48 06/10/17 10:10 06/10/17 10:52 06/10/17 11:26 Bedside Glucose 70 72 73 78 White Blood Count 5.8 # Red Blood Count 3.46 L Hemoglobin 10.3 L Hematocrit 33.3 L Mean Corpuscular Volume 96.2 Mean Corpuscular Hemoglobin 29.8 Mean Corpuscular Hemoglobin Concent 30.9 L Red Cell Distribution Width 21.5 H Platelet Count 110 L Mean Platelet Volume 11.5 H Neutrophils % 65.1 Lymphocytes % 17.5 Monocytes % 8.3 Eosinophils % 8.7 H Basophils % 0.2 Nucleated Red Blood Cells % 0.3 H Neutrophils # (Manual) 4 Lymphocytes # 1.0 Monocytes # 0.5 Eosinophils # 0.5 Basophils # 0.0 Nucleated Red Blood Cells # 0.0 Glucose Level 70 Test 06/10/17 12:05 06/10/17 12:36 06/10/17 12:55 Bedside Glucose 74 83 88 Medications Medications Current Medications Bisacodyl (Dulcolax Supp) 10 mg Q48H [place] Last administered on 06/09/17 16:57; Admin Dose 10 MG; Start 05/06/17 at 17:00 Sodium Biphosphate/ Sodium Phosphate (Fleet Enema Pediatric) 118 ml Q72H PRN [place] CONSTIPATION; Start 05/06/17 at 17:00 Citric Acid/ Sodium Citrate (Bicitra) 30 ml BID PO Last administered on 09:09; Admin Dose 30 ML; Start 05/06/17 at 21:00 Nystatin (Nystatin Powder) 1 applic BID TOP Last administered on 06/10/17 10: 30; Admin Dose 1 APPLIC; Start 05/09/17 at 21:00 Collagenase (Santyl) 1 applic DAILY TOP Last administered on 06/09/17 10:19; Admin Dose 1 APPLIC; Start 05/09/17 at 15:00 Collagenase (Santyl) 1 applic PRN PRN TOP WOUND CARE; Start 05/09/17 at 14:00 Miscellaneous Information 1 ea NOTE XX ; Start 05/11/17 at 08:00 Glucose (Glutose) 15 gm Q15M PRN PO DECREASED GLUCOSE; Start 05/11/17 at 08:00 Glucose (Glutose) 22.5 gm Q15M PRN PO DECREASED GLUCOSE; Start 05/11/17 at 08: 00 Dextrose (D50w Syringe) 25 ml Q15M PRN IV DECREASED GLUCOSE Last administered on 06/10/17 09:24; Admin Dose 25 ML; Start 05/11/17 at 08:00 Dextrose (D50w Syringe) 50 ml Q15M PRN IV DECREASED GLUCOSE Last administered on 05/15/17 00:11; Admin Dose 50 ML; Start 05/11/17 at 08:00 Glucagon (Glucagen) 1 mg Q15M PRN IM DECREASED GLUCOSE Last administered on 12:10; Admin Dose 1 MG; Start 05/11/17 at 08:00 Glucose (Glutose) 15 gm Q15M PRN BUCCAL DECREASED GLUCOSE Last administered on 06/10/17 09:49; Admin Dose 15 GM; Start 05/11/17 at 08:00 Epoetin Vasyl (Epogen (Esrd)) 10,000 units MoWeFr@17 SC Last administered on 17:25; Admin Dose 10,000 UNITS; Start 05/13/17 at 17:00 IV Flush (NS 10 ml) 10 ml PRN PRN IV IV PROTOCOL; Start 05/15/17 at 17:30 Heparin Sodium (Porcine) (Heparin (5000 Units/0.5 ml)) 5,000 unit BID SC Last administered on 06/08/17 22:53; Admin Dose 5,000 UNIT; Start 05/23/17 at 09:00 Insulin Aspart NOVOLOG *MILD* ALGORI... Q4 SC Last administered on 06/01/17 21 :32; Admin Dose 1 UNIT; Start 05/26/17 at 09:00 Total Parenteral Nutrition 1,000 ml @ 40 mls/hr Q24H IV Last administered on 14:37; Admin Dose 40 MLS/HR; Start 05/27/17 at 14:00 Fat Emulsion Intravenous (Liposyn Ii 20%) 250 ml @ 31.25 mls/ hr Q24H IV Last administered on 06/09/17 10:20; Admin Dose 31.25 MLS/HR; Start 05/28/17 at 10:00 Famotidine 20 mg 20 mg DAILY IV Last administered on 06/10/17 09:20; Admin Dose 20 MG; Start 05/29/17 at 09:00 Sodium Chloride 1,000 ml @ 75 mls/hr [id number] IV Last administered on 09:40; Admin Dose 75 MLS/HR; Start 06/01/17 at 21:00 Caspofungin/ Sodium Chloride (Cancidas/NS) 250 ml @ 250 mls/hr Q24H IVPB Last administered on 06/09/17 15:31; Admin Dose 250 MLS/HR; Start 06/04/17 at 15:30 Hydrocortisone (Solu-Cortef) 10 mg Q8 IV Last administered on 06/10/17 14:13; Admin Dose 10 MG; Start 06/06/17 at 14:00 DOROTHY CORONADO NP Jun 10, 2017 15:24
--- NOTE | 2017-06-10 15:36 | CONS ---
Date/Time of Note Date/Time of Note DATE: 06/10/17 TIME: 15:35 Consult Date/Type/Reason Admit Date/Time May 06, 2017 at 16:34 Initial Consult Date 05/22/17 Type of Consultation: CARDIOLOGY Ordering Provider: OSMAR MONTAGUE DO Subjective CARDIOLOGY FOLLOW UP NOTE: Discussed with staff and rhythm was reviewed. Pt remains in NSR. no more Afib pt remains in NSR. NO AFIB seen pt remains NONVERBAL. pt is on TELE now OBJECTIVE: General: no acute distress. s/p trach on vent. HEENT: NC/AT. NECK: NO JVD. no stridor. S/P trach on vent CV: RRR. systolic murmur; no gallop or rubs. PULM: no wheezing anteriorly GI: SOFT, NT, ND, no rebound or guarding s/p dressing at the site of previous G tube Extremity: + B/L LE and UE edema. no clubbing. neuro: opens her eyes to painful stimuli. does not follow commands Psych: calm rectal: deferred Objective Vital Signs Date Time Temp Pulse Resp B/P Pulse Ox O2 Delivery O2 Flow Rate FiO2 06/10/17 15:20 61 16 100 30 06/10/17 11:57 94.6 100/52 06/09/17 04:00 Mechanical Ventilator Intake and Output 06/09/17 06/09/17 06/10/17 15:00 23:00 07:00 Output Total 30 ml 60 ml Balance -30 ml -60 ml Results/Medications Result Diagram: 06/10/17 1010 06/10/17 1010 Results 24 hrs Laboratory Tests Test 06/09/17 16:58 06/09/17 18:32 06/09/17 20:17 06/10/17 01:34 Bedside Glucose 85 78 79 67 L Test 06/10/17 02:03 06/10/17 06:27 06/10/17 08:55 06/10/17 09:22 Bedside Glucose 84 83 60 L 62 L Test 06/10/17 09:48 06/10/17 10:10 06/10/17 10:52 06/10/17 11:26 Bedside Glucose 70 72 73 78 White Blood Count 5.8 # Red Blood Count 3.46 L Hemoglobin 10.3 L Hematocrit 33.3 L Mean Corpuscular Volume 96.2 Mean Corpuscular Hemoglobin 29.8 Mean Corpuscular Hemoglobin Concent 30.9 L Red Cell Distribution Width 21.5 H Platelet Count 110 L Mean Platelet Volume 11.5 H Neutrophils % 65.1 Lymphocytes % 17.5 Monocytes % 8.3 Eosinophils % 8.7 H Basophils % 0.2 Nucleated Red Blood Cells % 0.3 H Neutrophils # (Manual) 4 Lymphocytes # 1.0 Monocytes # 0.5 Eosinophils # 0.5 Basophils # 0.0 Nucleated Red Blood Cells # 0.0 Glucose Level 70 Test 06/10/17 12:05 06/10/17 12:36 06/10/17 12:55 Bedside Glucose 74 83 88 Medications Current Medications Bisacodyl (Dulcolax Supp) 10 mg Q48H [place] Last administered on 06/09/17 16:57; Admin Dose 10 MG; Start 05/06/17 at 17:00 Sodium Biphosphate/ Sodium Phosphate (Fleet Enema Pediatric) 118 ml Q72H PRN [place] CONSTIPATION; Start 05/06/17 at 17:00 Citric Acid/ Sodium Citrate (Bicitra) 30 ml BID PO Last administered on 09:09; Admin Dose 30 ML; Start 05/06/17 at 21:00 Nystatin (Nystatin Powder) 1 applic BID TOP Last administered on 06/10/17 10: 30; Admin Dose 1 APPLIC; Start 05/09/17 at 21:00 Collagenase (Santyl) 1 applic DAILY TOP Last administered on 06/09/17 10:19; Admin Dose 1 APPLIC; Start 05/09/17 at 15:00 Collagenase (Santyl) 1 applic PRN PRN TOP WOUND CARE; Start 05/09/17 at 14:00 Miscellaneous Information 1 ea NOTE XX ; Start 05/11/17 at 08:00 Glucose (Glutose) 15 gm Q15M PRN PO DECREASED GLUCOSE; Start 05/11/17 at 08:00 Glucose (Glutose) 22.5 gm Q15M PRN PO DECREASED GLUCOSE; Start 05/11/17 at 08: 00 Dextrose (D50w Syringe) 25 ml Q15M PRN IV DECREASED GLUCOSE Last administered on 06/10/17 09:24; Admin Dose 25 ML; Start 05/11/17 at 08:00 Dextrose (D50w Syringe) 50 ml Q15M PRN IV DECREASED GLUCOSE Last administered on 05/15/17 00:11; Admin Dose 50 ML; Start 05/11/17 at 08:00 Glucagon (Glucagen) 1 mg Q15M PRN IM DECREASED GLUCOSE Last administered on 12:10; Admin Dose 1 MG; Start 05/11/17 at 08:00 Glucose (Glutose) 15 gm Q15M PRN BUCCAL DECREASED GLUCOSE Last administered on 06/10/17 09:49; Admin Dose 15 GM; Start 05/11/17 at 08:00 Epoetin Vasyl (Epogen (Esrd)) 10,000 units MoWeFr@17 SC Last administered on 17:25; Admin Dose 10,000 UNITS; Start 05/13/17 at 17:00 IV Flush (NS 10 ml) 10 ml PRN PRN IV IV PROTOCOL; Start 05/15/17 at 17:30 Heparin Sodium (Porcine) (Heparin (5000 Units/0.5 ml)) 5,000 unit BID SC Last administered on 06/08/17 22:53; Admin Dose 5,000 UNIT; Start 05/23/17 at 09:00 Insulin Aspart NOVOLOG *MILD* ALGORI... Q4 SC Last administered on 06/01/17 21 :32; Admin Dose 1 UNIT; Start 05/26/17 at 09:00 Total Parenteral Nutrition 1,000 ml @ 40 mls/hr Q24H IV Last administered on 14:37; Admin Dose 40 MLS/HR; Start 05/27/17 at 14:00 Fat Emulsion Intravenous (Liposyn Ii 20%) 250 ml @ 31.25 mls/ hr Q24H IV Last administered on 06/09/17 10:20; Admin Dose 31.25 MLS/HR; Start 05/28/17 at 10:00 Famotidine 20 mg 20 mg DAILY IV Last administered on 06/10/17 09:20; Admin Dose 20 MG; Start 05/29/17 at 09:00 Sodium Chloride 1,000 ml @ 75 mls/hr [id number] IV Last administered on 09:40; Admin Dose 75 MLS/HR; Start 06/01/17 at 21:00 Caspofungin/ Sodium Chloride (Cancidas/NS) 250 ml @ 250 mls/hr Q24H IVPB Last administered on 06/09/17 15:31; Admin Dose 250 MLS/HR; Start 06/04/17 at 15:30 Hydrocortisone (Solu-Cortef) 10 mg Q8 IV Last administered on 06/10/17 14:13; Admin Dose 10 MG; Start 06/06/17 at 14:00 Assessment/Plan Chief Complaint/Hosp Course 1. hypoxemic resp failure: s/p trach 2. Pafib; currently in NSR 3. hx HTN: 4. encephalopathy 5. renal failure: f/u with nephrology 6. dysphagia 7. G tube malfunction/ infection: unable to repair by GI. 8. GI bleed 9. severe anemia 10. malnutrition 11. anasarca and fluid overload. cont resp care nutritional support. correct lytes prn off of PLAVIX DUE TO ANEMIA/ BLEEDING. F/U with GI and surgery rec. nutritional support will be continued . CODE STATUS IS chemical code only now. THANK YOU. Problems: MILAGROS MUNOZ MD Jun 10, 2017 15:36
--- NOTE | 2017-06-10 18:00 | RADRPT ---
PROCEDURE: XR Chest. CLINICAL INDICATION: Check PICC line position. TECHNIQUE: Single frontal view. COMPARISON: 06/09/2017. FINDINGS: There is a right arm PICC line with the tip in the lower superior vena cava. There is left basilar atelectasis and patchy air space disease at the lung bases, unchanged. The tracheostomy tube remain s in satisfactory position. The heart size is normal. There is calcification in the aorta consistent with atherosclerosis. Small bilateral pleural effusions are unchanged. There is no pneumothorax. IMPRESSION: 1. Right arm PICC line tip in satisfactory position. 2. No other change from 06/09/2017. RPTAT: QQ .Sourav Ramirez MD, MD Date Time Electronically viewed and signed by .Sourav Ramirez MD, on 06/10/2017 18:00 .R/
[2017-06-10] MEDS: CASPOFUNGIN 50 MG in SOD CHLORIDE 0.9% 250 ML IVPB SCH (18:23)
[2017-06-10] MEDS: TPN 1,000 ML IV SCH (18:24)
--- NOTE | 2017-06-10 21:49 | CONS ---
Date/Time of Note Date/Time of Note DATE: 06/10/17 TIME: 21:45 Assessment/Plan Assessment/Plan Chief Complaint/Hosp Course This 69-year-old female with a history of CVA vent dependent respiratory failure , was brought to the emergency room for the dislodgment of the GJ tube. Patient is nonverbal and no information can be obtained. No GI bleeding no chest pain no shortness of breath. Problems: Additional Assessment/Plan Additional Assessment/Plan 1. Dislodged GJ tube accidentally 2. Vent dependent respiratory failure 3. Chronic encephalopathy 4. Renal failure 5. Peripheral vascular disease 6. Anemia, secondary to chronic disease no evidence of active bleeding 7. 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 Hypotension, corrected patient is off dopamine for more than 24 hours 9. Decubitus ulcer 10. Workup for adrenal insufficiency, patient is on steroid now and off dopamine 11. Sepsis Plan Continue all supportive care Surgery to fix the gastrocutaneous fistula.otherwise wait for the fistula to close,or hospice Blood transfusion prn Consultation Date/Type/Reason Admit Date/Time May 06, 2017 at 16:34 Type of Consultation: CARDIOLOGY Referring Provider: OSMAR MONTAGUE DO 24 HR Interval Summary Subjective hx not possible: pt non-verbal, pt critical Exam/Review of Systems Vital Signs Vitals Vital Signs Date Time Temp Pulse Resp B/P Pulse Ox O2 Delivery O2 Flow Rate FiO2 06/10/17 21:00 85 16 100 30 06/10/17 19:49 97.5 101/59 06/09/17 04:00 Mechanical Ventilator Intake and Output 06/09/17 06/09/17 06/10/17 15:00 23:00 07:00 Output Total 30 ml 60 ml Balance -30 ml -60 ml Exam Respiratory: other (vent deependent) Cardiovascular: nl pulses, regular rate and rhythm Gastrointestinal: nl liver, spleen, non-tender, other (fistula persistent), soft Extremities: normal pulses Neurological: unresponsive Results Result Diagram: 06/10/17 1010 06/10/17 1010 Results 24 hrs Laboratory Tests Test 06/10/17 01:34 06/10/17 02:03 06/10/17 06:27 06/10/17 08:55 Bedside Glucose 67 L 84 83 60 L Test 06/10/17 09:22 06/10/17 09:48 06/10/17 10:10 06/10/17 10:52 Bedside Glucose 62 L 70 72 73 White Blood Count 5.8 # Red Blood Count 3.46 L Hemoglobin 10.3 L Hematocrit 33.3 L Mean Corpuscular Volume 96.2 Mean Corpuscular Hemoglobin 29.8 Mean Corpuscular Hemoglobin Concent 30.9 L Red Cell Distribution Width 21.5 H Platelet Count 110 L Mean Platelet Volume 11.5 H Neutrophils % 65.1 Lymphocytes % 17.5 Monocytes % 8.3 Eosinophils % 8.7 H Basophils % 0.2 Nucleated Red Blood Cells % 0.3 H Neutrophils # (Manual) 4 Lymphocytes # 1.0 Monocytes # 0.5 Eosinophils # 0.5 Basophils # 0.0 Nucleated Red Blood Cells # 0.0 Glucose Level 70 Test 06/10/17 11:26 06/10/17 12:05 06/10/17 12:36 06/10/17 12:55 Bedside Glucose 78 74 83 88 Test 06/10/17 16:07 06/10/17 17:49 06/10/17 18:26 Bedside Glucose 61 L 82 76 Medications Medications Current Medications Bisacodyl (Dulcolax Supp) 10 mg Q48H [place] Last administered on 06/09/17 16:57; Admin Dose 10 MG; Start 05/06/17 at 17:00 Sodium Biphosphate/ Sodium Phosphate (Fleet Enema Pediatric) 118 ml Q72H PRN [place] CONSTIPATION; Start 05/06/17 at 17:00 Citric Acid/ Sodium Citrate (Bicitra) 30 ml BID PO Last administered on 09:09; Admin Dose 30 ML; Start 05/06/17 at 21:00 Nystatin (Nystatin Powder) 1 applic BID TOP Last administered on 06/10/17 10: 30; Admin Dose 1 APPLIC; Start 05/09/17 at 21:00 Collagenase (Santyl) 1 applic DAILY TOP Last administered on 06/09/17 10:19; Admin Dose 1 APPLIC; Start 05/09/17 at 15:00 Collagenase (Santyl) 1 applic PRN PRN TOP WOUND CARE; Start 05/09/17 at 14:00 Miscellaneous Information 1 ea NOTE XX ; Start 05/11/17 at 08:00 Glucose (Glutose) 15 gm Q15M PRN PO DECREASED GLUCOSE; Start 05/11/17 at 08:00 Glucose (Glutose) 22.5 gm Q15M PRN PO DECREASED GLUCOSE; Start 05/11/17 at 08: 00 Dextrose (D50w Syringe) 25 ml Q15M PRN IV DECREASED GLUCOSE Last administered on 06/10/17 09:24; Admin Dose 25 ML; Start 05/11/17 at 08:00 Dextrose (D50w Syringe) 50 ml Q15M PRN IV DECREASED GLUCOSE Last administered on 06/10/17 16:12; Admin Dose 50 ML; Start 05/11/17 at 08:00 Glucagon (Glucagen) 1 mg Q15M PRN IM DECREASED GLUCOSE Last administered on 12:10; Admin Dose 1 MG; Start 05/11/17 at 08:00 Glucose (Glutose) 15 gm Q15M PRN BUCCAL DECREASED GLUCOSE Last administered on 06/10/17 09:49; Admin Dose 15 GM; Start 05/11/17 at 08:00 Epoetin Vasyl (Epogen (Esrd)) 10,000 units MoWeFr@17 SC Last administered on 17:25; Admin Dose 10,000 UNITS; Start 05/13/17 at 17:00 IV Flush (NS 10 ml) 10 ml PRN PRN IV IV PROTOCOL; Start 05/15/17 at 17:30 Heparin Sodium (Porcine) (Heparin (5000 Units/0.5 ml)) 5,000 unit BID SC Last administered on 06/08/17 22:53; Admin Dose 5,000 UNIT; Start 05/23/17 at 09:00 Insulin Aspart NOVOLOG *MILD* ALGORI... Q4 SC Last administered on 06/01/17 21 :32; Admin Dose 1 UNIT; Start 05/26/17 at 09:00 Total Parenteral Nutrition 1,000 ml @ 40 mls/hr Q24H IV Last administered on 18:24; Admin Dose 40 MLS/HR; Start 05/27/17 at 14:00 Fat Emulsion Intravenous (Liposyn Ii 20%) 250 ml @ 31.25 mls/ hr Q24H IV Last administered on 06/09/17 10:20; Admin Dose 31.25 MLS/HR; Start 05/28/17 at 10:00 Famotidine 20 mg 20 mg DAILY IV Last administered on 06/10/17 09:20; Admin Dose 20 MG; Start 05/29/17 at 09:00 Sodium Chloride 1,000 ml @ 75 mls/hr [id number] IV Last administered on 18:24; Admin Dose 75 MLS/HR; Start 06/01/17 at 21:00 Caspofungin/ Sodium Chloride (Cancidas/NS) 250 ml @ 250 mls/hr Q24H IVPB Last administered on 06/10/17 18:23; Admin Dose 250 MLS/HR; Start 06/04/17 at 15:30 Hydrocortisone (Solu-Cortef) 10 mg Q8 IV Last administered on 06/10/17 14:13; Admin Dose 10 MG; Start 06/06/17 at 14:00 IV Flush (NS 10 ml) 10 ml PRN PRN IV IV PROTOCOL; Start 06/10/17 at 18:00 SYLWIA SY MD Jun 10, 2017 21:48
[2017-06-10] MEDS: EPOETIN 10000 UNITS/1 ML INJ (ESRD) SC SCH (21:55)
[2017-06-11] VITALS (23 sets, daily range): BP systolic 110–123; BP diastolic 54–60; PULSE 61–79; RESP 16–24
[2017-06-11] MEDS: INSULIN ASPART [NOVOLOG] 3 ML PEN SC SCH ×6 (01:00→21:00)
[2017-06-11] MEDS: NYSTATIN 30 GM POWDER BTL TOP SCH ×3 (02:32→21:40)
[2017-06-11] MEDS: COLLAGENASE 30 GM TUBE TOP PRN (02:33)
[2017-06-11] MEDS: HYDROCORTISONE 100 MG INJ IV SCH ×3 (05:37→21:51)
[2017-06-11] MEDS: SOD CHLORIDE 0.9% 1,000 ML IV SCH ×2 (07:40→09:17)
[2017-06-11] MEDS: CITRIC ACID/NA CITRATE 30 ML CUP PO SCH ×2 (08:15→20:43)
[2017-06-11] MEDS: HEPARIN 5,000 UNIT/0.5 ML VIAL SC SCH (08:16)
[2017-06-11] MEDS: COLLAGENASE 30 GM TUBE TOP SCH (09:00)
[2017-06-11] MEDS: FAMOTIDINE 20 MG INJ IV SCH (09:17)
[2017-06-11] MEDS: FAT EMULSION 20% 250 ML IV SCH (10:56)
[2017-06-11] MEDS ORDERED: SILVER NITRATE SWAB TOP ONE (12:30)
[2017-06-11] MEDS: TPN 1,000 ML IV SCH ×2 (13:15→21:42)
--- NOTE | 2017-06-11 15:04 | CONS ---
Date/Time of Note Date/Time of Note DATE: 06/11/17 TIME: 15:03 Assessment/Plan Assessment/Plan Chief Complaint/Hosp Course SUBJECTIVE DATA: No acute changes, nonverbal and noncommunicative, comfortable on the vent, on TPN and Lipids MICROBIOLOGY: Blood culture since June 03 is negative. Urine culture growing Gillian albicans. Abx: Cancidas INDWELLING: Trach, PICC line, and Collazo. PHYSICAL EXAMINATION: GENERAL: Chronically ill-appearing, elderly woman, who is nonverbal, noncommunicative, in no distress. HEENT: Head atraumatic, normocephalic. Sclerae anicteric. Buccal mucosa dry. NECK: Supple. Tracheostomy present. CHEST: Rise symmetrical. Breath sounds with bilateral scattered crackles. HEART: S1, S2. ABDOMEN: Soft, distended. Bowel sounds hypoactive. EXTREMITIES: With bilateral edema. SKIN: With generalized edema and erythema. ASSESSMENT: 1. Status post shock, multifactorial. 2. Gillian albicans urinary tract infection (UTI). 3. S/p Healthcare associated pneumonia 4. G-tube malfunction/GC fistula. 5. Chronic encephalopathy. 6. Acute on chronic kidney disease. 7. Diabetes. PLAN: Remains unchanged, continue present care, cano cx prn, GI/surgical rec-s== > awaiting for fistula closure DW staff Problems: Consultation Date/Type/Reason Admit Date/Time May 06, 2017 at 16:34 Initial Consult Date 05/09/17 Type of Consultation: id Referring Provider: OSMAR MONTAGUE DO Exam/Review of Systems Vital Signs Vitals Vital Signs Date Time Temp Pulse Resp B/P Pulse Ox O2 Delivery O2 Flow Rate FiO2 06/11/17 13:00 74 16 99 30 06/11/17 11:44 94.6 114/55 06/09/17 04:00 Mechanical Ventilator Intake and Output 06/10/17 06/10/17 06/11/17 15:00 23:00 07:00 Intake Total 250 ml 0 ml Output Total 100 ml Balance 250 ml -100 ml Results Result Diagram: 06/10/17 1010 06/10/17 1010 Results 24 hrs Laboratory Tests Test 06/10/17 16:07 06/10/17 17:49 06/10/17 18:26 06/10/17 21:59 Bedside Glucose 61 L 82 76 83 Test 06/11/17 01:28 06/11/17 05:33 06/11/17 09:20 06/11/17 13:11 Bedside Glucose 98 102 109 126 Medications Medications Current Medications Bisacodyl (Dulcolax Supp) 10 mg Q48H [place] Last administered on 06/09/17 16:57; Admin Dose 10 MG; Start 05/06/17 at 17:00 Sodium Biphosphate/ Sodium Phosphate (Fleet Enema Pediatric) 118 ml Q72H PRN [place] CONSTIPATION; Start 05/06/17 at 17:00 Citric Acid/ Sodium Citrate (Bicitra) 30 ml BID PO Last administered on 09:09; Admin Dose 30 ML; Start 05/06/17 at 21:00 Nystatin (Nystatin Powder) 1 applic BID TOP Last administered on 06/11/17 09: 24; Admin Dose 1 APPLIC; Start 05/09/17 at 21:00 Collagenase (Santyl) 1 applic DAILY TOP Last administered on 06/09/17 10:19; Admin Dose 1 APPLIC; Start 05/09/17 at 15:00 Collagenase (Santyl) 1 applic PRN PRN TOP WOUND CARE Last administered on 02:33; Admin Dose 1 APPLIC; Start 05/09/17 at 14:00 Miscellaneous Information 1 ea NOTE XX ; Start 05/11/17 at 08:00 Glucose (Glutose) 15 gm Q15M PRN PO DECREASED GLUCOSE; Start 05/11/17 at 08:00 Glucose (Glutose) 22.5 gm Q15M PRN PO DECREASED GLUCOSE; Start 05/11/17 at 08: 00 Dextrose (D50w Syringe) 25 ml Q15M PRN IV DECREASED GLUCOSE Last administered on 06/10/17 09:24; Admin Dose 25 ML; Start 05/11/17 at 08:00 Dextrose (D50w Syringe) 50 ml Q15M PRN IV DECREASED GLUCOSE Last administered on 06/10/17 16:12; Admin Dose 50 ML; Start 05/11/17 at 08:00 Glucagon (Glucagen) 1 mg Q15M PRN IM DECREASED GLUCOSE Last administered on 12:10; Admin Dose 1 MG; Start 05/11/17 at 08:00 Glucose (Glutose) 15 gm Q15M PRN BUCCAL DECREASED GLUCOSE Last administered on 06/10/17 09:49; Admin Dose 15 GM; Start 05/11/17 at 08:00 Epoetin Vasyl (Epogen (Esrd)) 10,000 units MoWeFr@17 SC Last administered on 21:55; Admin Dose 10,000 UNITS; Start 05/13/17 at 17:00 IV Flush (NS 10 ml) 10 ml PRN PRN IV IV PROTOCOL; Start 05/15/17 at 17:30 Heparin Sodium (Porcine) (Heparin (5000 Units/0.5 ml)) 5,000 unit BID SC Last administered on 06/08/17 22:53; Admin Dose 5,000 UNIT; Start 05/23/17 at 09:00 Insulin Aspart NOVOLOG *MILD* ALGORI... Q4 SC Last administered on 06/01/17 21 :32; Admin Dose 1 UNIT; Start 05/26/17 at 09:00 Total Parenteral Nutrition 1,000 ml @ 40 mls/hr Q24H IV Last administered on 18:24; Admin Dose 40 MLS/HR; Start 05/27/17 at 14:00 Fat Emulsion Intravenous (Liposyn Ii 20%) 250 ml @ 31.25 mls/ hr Q24H IV Last administered on 06/11/17 10:56; Admin Dose 31.25 MLS/HR; Start 05/28/17 at 10:00 Famotidine 20 mg 20 mg DAILY IV Last administered on 06/11/17 09:17; Admin Dose 20 MG; Start 05/29/17 at 09:00 Sodium Chloride 1,000 ml @ 75 mls/hr [id number] IV Last administered on 09:17; Admin Dose 75 MLS/HR; Start 06/01/17 at 21:00 Caspofungin/ Sodium Chloride (Cancidas/NS) 250 ml @ 250 mls/hr Q24H IVPB Last administered on 06/10/17 18:23; Admin Dose 250 MLS/HR; Start 06/04/17 at 15:30 Hydrocortisone (Solu-Cortef) 10 mg Q8 IV Last administered on 06/11/17 13:13; Admin Dose 10 MG; Start 06/06/17 at 14:00 IV Flush (NS 10 ml) 10 ml PRN PRN IV IV PROTOCOL; Start 06/10/17 at 18:00 DOROTHY CORONADO NP Jun 11, 2017 15:04
--- NOTE | 2017-06-11 15:18 | OPR ---
Date/Time of Note Date/Time of Note DATE: 06/11/17 TIME: 15:14 Operative Report Procedure Date: Jun 11, 2017 Preoperative Diagnosis Abdominal wall bleeding Postoperative Diagnosis Abdominal wall bleeding Operation Performed Urgent control of abdominal wall bleeding with silver nitrate Surgeon: JOCELYN FINE MD Online Education Manager: SHADI CALDERON NP Estimated Blood Loss: 0 - 10 ml's Specimen: none Grafts/Implants: none Complications: no Pt Condition Post Procedure: guarded Disposition: other (Own room) Indications Per notes. R/B/A fully reviewed Procedure Description Patient placed supine in her own bed. Time out done. Silver nitrate sticks were used to control oozing surfaced. Dressing applied. Patient tolerated procedure well. JOCELYN FINE MD Jun 11, 2017 15:18
--- NOTE | 2017-06-11 15:35 | PN ---
Date/Time of Note Date/Time of Note DATE: 06/11/17 TIME: 15:31 Assessment/Plan Lines/Catheters IV Catheter Type (from Nrs): PICC Line Collazo in Place (from Nrs): Yes Assessment/Plan Chief Complaint/Hosp Course 1. G-tube dislodgement: replaced with gjtube by GI, continued yellow drainage peristomal; gj tube replacement attempt-unable due to too large of an opening; Now chemical code; currently on tpn; bleeding from GCF -hospice/palliative is the best option for this patient -no surgical intervention -bleeding 2. Septic shock: multifactorial: 2/2: pneumonia + cellulitis + wounds; persistent, off pressors again, hypothermic, hypoglycemic -abx -supportive 3. Respiratory failure with trach: PNA with pulm edema; comfortable on vent -pulmonary toilet -abx -supportive 4.STARLA with CKD; anuric currently -judicious fluids -renally dose meds -per nephrology 5. Normocytic anemia: previous coffee ground drainage peristoma;no acute bleed noted; s/p transfusion -monitor and transfuse as needed 6. CHF -medical management 7. Diabetes with hypoglycemia -medical management 8. Acute encephalopathy with history of advanced dementia; unchanged neurologically -supportive 9. Decubitus wound. -continue wound care. 10. Peristomal cellulitis 2/2 #1; +pseudomonas: improving with drainage to ostomy bag -local care 11. Pancytopenia -supportive 12. Hypothermia: increasing coagulopathy with noted GCF bleed -hemostasis with chemical cautery by Dr. Blackburn Patient seen and examined in collaboration with Dr. Meliton Blackburn. Thank you. Problems: Subjective 24 Hr Interval Summary Bleeding noted from GCF site. Hypothermic. No changes neurologically. Comfortable on vent. No sob, no vomiting, fevers, chills, nonverbal indicators of pain. Exam/Review of Systems Vital Signs Vitals Vital Signs Date Time Temp Pulse Resp B/P Pulse Ox O2 Delivery O2 Flow Rate FiO2 06/11/17 13:00 74 16 99 30 06/11/17 11:44 94.6 114/55 06/09/17 04:00 Mechanical Ventilator Intake and Output 06/10/17 06/10/17 06/11/17 15:00 23:00 07:00 Intake Total 250 ml 0 ml Output Total 100 ml Balance 250 ml -100 ml Exam Free Text/Dictation Constitutional: non-verbal, awake, nonresponsive, ill-appearing. No oriented Psych: withdraws from pain Head: atraumatic, normocephalic Eyes: nl sclera ENMT: mucosa pink and moist, missing teeth Neck: non-tender, other (trach), supple Respiratory: diminished Cardiovascular: edema Gastrointestinal: distended (mod), other (stoma with bleeding), soft, nontender Musculoskeletal: No muscle tone Extremities: edema worsened Neurological: No nl mental status, No nl speech Skin: other (abdominal/peristomal/breast fold redness improved), cool skin Results Result Diagram: 06/10/17 1010 06/10/17 1010 HSADI CALDERON NP Jun 11, 2017 15:35
[2017-06-11] MEDS: CASPOFUNGIN 50 MG in SOD CHLORIDE 0.9% 250 ML IVPB SCH (16:00)
--- NOTE | 2017-06-11 16:57 | PN ---
Date/Time of Note Date/Time of Note DATE: 06/11/17 TIME: 16:56 Assessment/Plan VTE Prophylaxis VTE Prophylaxis Intervention: SCD's Lines/Catheters IV Catheter Type (from Nrsg): PICC Line Central line still needed: Yes Urinary Cath still in place: Yes Reason Cath still needed: urinary retention Assessment/Plan Chief Complaint/Hosp Course SUBJECTIVE DATA: The patient remains critically ill. The patient is currently off pressor support. Blood pressures remain stable. Patient remains oligoanuric. No new rash, fever, chills, diaphoresis, hemoptysis, hematemesis, hematochezia. s/p two units of packed red blood cells with stable H/H since has bleeding from mouth area (no seizure reported) vent settings and imaging studies were reviewed OBJECTIVE DATA: HEENT: Head is normocephalic. NECK: Supple. HEART: Regular rate. LUNGS: Diminished breath sounds at the base. ABDOMEN: Soft, nontender to palpation. Positive gastrocutaneous fistula. EXTREMITIES: Negative for clubbing, cyanosis. Positive edema. DERMATOLOGIC: No rashes. MUSCULOSKELETAL: No joint effusion. NEUROLOGIC: No change in exam. MEDICATIONS: Reviewed. assessment and plan: 1. Septic shock, etiology is multifactorial. The patient has currently been weaned off pressors. Will continue current treatment plan. Antibiotics, continue IV fluids. Continue to monitor. continues to be hypothermic 2. Anemia. s/p transfusion 3. Questionable adrenal insufficiency. The patient was placed on stress steroids, now being tapered off. Appreciate endocrine evaluation. 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 Follow up with General Surgery. 5. Oligoanuric acute kidney injury on top of chronic kidney disease stage IV. Etiology secondary to ATN, septic and septic acute kidney injury. Plan is to give diuretic challenge. dialysis is futile in this patient 6. Ventilatory-dependent respiratory failure. Vent settings reviewed. ABGs reviewed. Continue to monitor. 7. Hyponatremia, etiology secondary to acute kidney injury in conjunction with hypotonic fluids. The patient's sodium levels have slowly been improving. Continue to monitor. 8. Acute encephalopathy and advanced dementia, etiology toxic metabolic. 9. Volume overload, etiology secondary to chronic kidney disease, catheter leak. The patient be given diuretic challenge. Will monitor closely. 10. Diabetes. Continue Accu-Cheks and sliding scale. 11. Nutrition. Continue total parenteral nutrition. She has a GCF which is healing very slowly 12. Decubitus wound. Continue wound care. 13. Metabolic acidosis secondary to acute kidney injury. The patient's ABG shows appropriate compensation. Will continue to monitor. the patient has almost no chance of meaningful recovery. continuation of ongoing aggressive care is futile and medically inappropriate. will discuss with bioethics Problems: Exam/Review of Systems Vital Signs Vitals Vital Signs Date Time Temp Pulse Resp B/P Pulse Ox O2 Delivery O2 Flow Rate FiO2 06/11/17 16:29 76 06/11/17 15:43 94.7 21 118/54 100 06/11/17 15:20 30 06/09/17 04:00 Mechanical Ventilator Intake and Output 06/10/17 06/10/17 06/11/17 15:00 23:00 07:00 Intake Total 250 ml 0 ml Output Total 100 ml Balance 250 ml -100 ml Results Result Diagram: 06/10/17 1010 06/10/17 1010 Results 24 hrs Laboratory Tests Test 06/10/17 17:49 06/10/17 18:26 06/10/17 21:59 06/11/17 01:28 Bedside Glucose 82 76 83 98 Test 06/11/17 05:33 06/11/17 09:20 06/11/17 13:11 06/11/17 16:45 Bedside Glucose 102 109 126 134 Medications Medications Current Medications Bisacodyl (Dulcolax Supp) 10 mg Q48H [place] Last administered on 06/09/17 16:57; Admin Dose 10 MG; Start 05/06/17 at 17:00 Sodium Biphosphate/ Sodium Phosphate (Fleet Enema Pediatric) 118 ml Q72H PRN [place] CONSTIPATION; Start 05/06/17 at 17:00 Citric Acid/ Sodium Citrate (Bicitra) 30 ml BID PO Last administered on 09:09; Admin Dose 30 ML; Start 05/06/17 at 21:00 Nystatin (Nystatin Powder) 1 applic BID TOP Last administered on 06/11/17 09: 24; Admin Dose 1 APPLIC; Start 05/09/17 at 21:00 Collagenase (Santyl) 1 applic DAILY TOP Last administered on 06/09/17 10:19; Admin Dose 1 APPLIC; Start 05/09/17 at 15:00 Collagenase (Santyl) 1 applic PRN PRN TOP WOUND CARE Last administered on 02:33; Admin Dose 1 APPLIC; Start 05/09/17 at 14:00 Miscellaneous Information 1 ea NOTE XX ; Start 05/11/17 at 08:00 Glucose (Glutose) 15 gm Q15M PRN PO DECREASED GLUCOSE; Start 05/11/17 at 08:00 Glucose (Glutose) 22.5 gm Q15M PRN PO DECREASED GLUCOSE; Start 05/11/17 at 08: 00 Dextrose (D50w Syringe) 25 ml Q15M PRN IV DECREASED GLUCOSE Last administered on 06/10/17 09:24; Admin Dose 25 ML; Start 05/11/17 at 08:00 Dextrose (D50w Syringe) 50 ml Q15M PRN IV DECREASED GLUCOSE Last administered on 06/10/17 16:12; Admin Dose 50 ML; Start 05/11/17 at 08:00 Glucagon (Glucagen) 1 mg Q15M PRN IM DECREASED GLUCOSE Last administered on 12:10; Admin Dose 1 MG; Start 05/11/17 at 08:00 Glucose (Glutose) 15 gm Q15M PRN BUCCAL DECREASED GLUCOSE Last administered on 06/10/17 09:49; Admin Dose 15 GM; Start 05/11/17 at 08:00 Epoetin Vasyl (Epogen (Esrd)) 10,000 units MoWeFr@17 SC Last administered on 21:55; Admin Dose 10,000 UNITS; Start 05/13/17 at 17:00 IV Flush (NS 10 ml) 10 ml PRN PRN IV IV PROTOCOL; Start 05/15/17 at 17:30 Insulin Aspart NOVOLOG *MILD* ALGORI... Q4 SC Last administered on 06/01/17 21 :32; Admin Dose 1 UNIT; Start 05/26/17 at 09:00 Total Parenteral Nutrition 1,000 ml @ 40 mls/hr Q24H IV Last administered on 18:24; Admin Dose 40 MLS/HR; Start 05/27/17 at 14:00 Fat Emulsion Intravenous (Liposyn Ii 20%) 250 ml @ 31.25 mls/ hr Q24H IV Last administered on 06/11/17 10:56; Admin Dose 31.25 MLS/HR; Start 05/28/17 at 10:00 Famotidine 20 mg 20 mg DAILY IV Last administered on 06/11/17 09:17; Admin Dose 20 MG; Start 05/29/17 at 09:00 Sodium Chloride 1,000 ml @ 75 mls/hr [id number] IV Last administered on 09:17; Admin Dose 75 MLS/HR; Start 06/01/17 at 21:00 Caspofungin/ Sodium Chloride (Cancidas/NS) 250 ml @ 250 mls/hr Q24H IVPB Last administered on 06/11/17 16:00; Admin Dose 250 MLS/HR; Start 06/04/17 at 15:30 Hydrocortisone (Solu-Cortef) 10 mg Q8 IV Last administered on 06/11/17 13:13; Admin Dose 10 MG; Start 06/06/17 at 14:00 IV Flush (NS 10 ml) 10 ml PRN PRN IV IV PROTOCOL; Start 06/10/17 at 18:00 DELIA FINE DO Jun 11, 2017 16:56
[2017-06-11] MEDS ORDERED: BUMETANIDE 1 MG INJ IV ONE (17:00)
--- NOTE | 2017-06-11 17:42 | CONS ---
Date/Time of Note Date/Time of Note DATE: 06/11/17 TIME: 17:41 Consult Date/Type/Reason Admit Date/Time May 06, 2017 at 16:34 Initial Consult Date 05/22/17 Type of Consultation: CARDIOLOGY Ordering Provider: OSMAR MONTAGUE DO Subjective CARDIOLOGY FOLLOW UP NOTE: Discussed with staff and rhythm was reviewed. Pt remains in NSR with frequent PAC pt remains NONVERBAL ON Vent pt is on TELE now OBJECTIVE: General: no acute distress. s/p trach on vent. HEENT: NC/AT. NECK: NO JVD. no stridor. S/P trach on vent CV: RRR. systolic murmur; no gallop or rubs. PULM: no wheezing anteriorly GI: SOFT, NT, ND, no rebound or guarding s/p dressing at the site of previous G tube Extremity: + B/L LE and UE edema. no clubbing. neuro: opens her eyes to painful stimuli. does not follow commands Psych: calm rectal: deferred Objective Vital Signs Date Time Temp Pulse Resp B/P Pulse Ox O2 Delivery O2 Flow Rate FiO2 06/11/17 16:29 76 06/11/17 15:43 94.7 21 118/54 100 06/11/17 15:20 30 06/09/17 04:00 Mechanical Ventilator Intake and Output 06/10/17 06/10/17 06/11/17 15:00 23:00 07:00 Intake Total 250 ml 0 ml Output Total 100 ml Balance 250 ml -100 ml Results/Medications Result Diagram: 06/10/17 1010 06/10/17 1010 Results 24 hrs Laboratory Tests Test 06/10/17 17:49 06/10/17 18:26 06/10/17 21:59 06/11/17 01:28 Bedside Glucose 82 76 83 98 Test 06/11/17 05:33 06/11/17 09:20 06/11/17 13:11 06/11/17 16:45 Bedside Glucose 102 109 126 134 Medications Current Medications Bisacodyl (Dulcolax Supp) 10 mg Q48H [place] Last administered on 06/09/17t 16:57; Admin Dose 10 MG; Start 05/06/17 at 17:00 Sodium Biphosphate/ Sodium Phosphate (Fleet Enema Pediatric) 118 ml Q72H PRN [place] CONSTIPATION; Start 05/06/17 at 17:00 Citric Acid/ Sodium Citrate (Bicitra) 30 ml BID PO Last administered on 09:09; Admin Dose 30 ML; Start 05/06/17 at 21:00 Nystatin (Nystatin Powder) 1 applic BID TOP Last administered on 06/11/17 09: 24; Admin Dose 1 APPLIC; Start 05/09/17 at 21:00 Collagenase (Santyl) 1 applic DAILY TOP Last administered on 06/09/17 10:19; Admin Dose 1 APPLIC; Start 05/09/17 at 15:00 Collagenase (Santyl) 1 applic PRN PRN TOP WOUND CARE Last administered on 02:33; Admin Dose 1 APPLIC; Start 05/09/17 at 14:00 Miscellaneous Information 1 ea NOTE XX ; Start 05/11/17 at 08:00 Glucose (Glutose) 15 gm Q15M PRN PO DECREASED GLUCOSE; Start 05/11/17 at 08:00 Glucose (Glutose) 22.5 gm Q15M PRN PO DECREASED GLUCOSE; Start 05/11/17 at 08: 00 Dextrose (D50w Syringe) 25 ml Q15M PRN IV DECREASED GLUCOSE Last administered on 06/10/17 09:24; Admin Dose 25 ML; Start 05/11/17 at 08:00 Dextrose (D50w Syringe) 50 ml Q15M PRN IV DECREASED GLUCOSE Last administered on 06/10/17 16:12; Admin Dose 50 ML; Start 05/11/17 at 08:00 Glucagon (Glucagen) 1 mg Q15M PRN IM DECREASED GLUCOSE Last administered on 12:10; Admin Dose 1 MG; Start 05/11/17 at 08:00 Glucose (Glutose) 15 gm Q15M PRN BUCCAL DECREASED GLUCOSE Last administered on 06/10/17 09:49; Admin Dose 15 GM; Start 05/11/17 at 08:00 Epoetin Vasyl (Epogen (Esrd)) 10,000 units MoWeFr@17 SC Last administered on 21:55; Admin Dose 10,000 UNITS; Start 05/13/17 at 17:00 IV Flush (NS 10 ml) 10 ml PRN PRN IV IV PROTOCOL; Start 05/15/17 at 17:30 Insulin Aspart NOVOLOG *MILD* ALGORI... Q4 SC Last administered on 06/01/17 21 :32; Admin Dose 1 UNIT; Start 05/26/17 at 09:00 Total Parenteral Nutrition 1,000 ml @ 40 mls/hr Q24H IV Last administered on 18:24; Admin Dose 40 MLS/HR; Start 05/27/17 at 14:00 Fat Emulsion Intravenous (Liposyn Ii 20%) 250 ml @ 31.25 mls/ hr Q24H IV Last administered on 06/11/17 10:56; Admin Dose 31.25 MLS/HR; Start 05/28/17 at 10:00 Famotidine 20 mg 20 mg DAILY IV Last administered on 06/11/17 09:17; Admin Dose 20 MG; Start 05/29/17 at 09:00 Sodium Chloride 1,000 ml @ 75 mls/hr [id number] IV Last administered on 09:17; Admin Dose 75 MLS/HR; Start 06/01/17 at 21:00 Caspofungin/ Sodium Chloride (Cancidas/NS) 250 ml @ 250 mls/hr Q24H IVPB Last administered on 06/11/17 16:00; Admin Dose 250 MLS/HR; Start 06/04/17 at 15:30 Hydrocortisone (Solu-Cortef) 10 mg Q8 IV Last administered on 06/11/17 13:13; Admin Dose 10 MG; Start 06/06/17 at 14:00 IV Flush 10 ml 10 ml PRN PRN IV IV PROTOCOL; Start 06/10/17 at 18:00 Bumetanide/ Dextrose (Bumex/D5W) 25 ml @ 50 mls/hr ONCE ONCE IV ; Start at 18:15; Stop 06/11/17 at 18:44 Assessment/Plan Chief Complaint/Hosp Course 1. hypoxemic hypercapnic resp failure: s/p trach 2. Pafib; currently in NSR 3. hx HTN: 4. encephalopathy 5. renal failure: f/u with nephrology 6. dysphagia 7. G tube malfunction/ infection: unable to repair by GI. 8. GI bleed 9. severe anemia 10. malnutrition 11. anasarca and fluid overload. cont resp care nutritional support. correct lytes prn off of PLAVIX DUE TO ANEMIA/ BLEEDING. F/U with GI and surgery rec. nutritional support will be continued . CODE STATUS IS chemical code only now. THANK YOU. Problems: MILAGROS MUNOZ MD Jun 11, 2017 17:42
[2017-06-11] MEDS: BISACODYL 10 MG SUPP PR SCH (17:56)
[2017-06-11] MEDS ORDERED: BUMETANIDE 2 MG in DEXTROSE 5% 17 ML IV ONE (18:15)
--- NOTE | 2017-06-11 18:24 | PN ---
DATE: 06/11/2017 SUBJECTIVE DATA: Patient is clinically unchanged today. OBJECTIVE DATA: VITAL SIGNS: Temperature 95, pulse is 74, blood pressure 114/55, O2 sat 96 percent on FiO2 30 percent. NECK: Trach site appears clean and intact. CARDIAC: S1, S2. No added sounds or murmurs. CHEST: Diminished air entry bilaterally. ABDOMEN: Soft, nontender. No guarding or rebound. EXTREMITIES: No clubbing, cyanosis or edema. NEUROLOGIC: Generalized weakness. LABORATORY AND DIAGNOSTIC DATA: White count 5.8, hemoglobin 10.3, platelets of 110. BUN 52, creatinine 2.41. IMPRESSION: 1. Vent dependent respiratory failure. 2. Chronic encephalopathy. 3. Dislodged gastric tube. 4. Anemia of chronic disease. 5. Large gastric cutaneous fistula. 6. Multiple decubitus ulcers. PLAN: 1. Continue his wound care. 2. Continue vent support. 3. Continue feeding as tolerated. 4. Continue GI recommendations. 5. DVT and GI prophylaxis. 6. Stable from pulmonary standpoint for correction facility. Dictated By: Lavelle Dalton MD /junie/ayesha /Document#: [id number]
[2017-06-11 18:36] LABS: ABNORMAL IP MESSAGE 1; EOSINOPHILS # 0.2 10^3/ul (0.0-0.5); EOSINOPHILS % 2.4 % (0.0-7.0); HEMATOCRIT 31.9 % (37.0-47.0); HEMOGLOBIN 9.9 g/dl (12.0-16.0); LYMPHOCYTES # 0.6 10^3/ul (0.8-2.9); LYMPHOCYTES % 8.1 % (15.0-51.0); MEAN CORPUSCULAR VOLUME 96.7 fl (82.0-101.0); MEAN PLATELET VOLUME 10.9 fl (7.4-10.4); MONOCYTE # 0.4 10^3/ul (0.3-0.9); MONOCYTES % 5.3 % (0.0-11.0); NEUTROPHILS % 83.9 % (39.0-77.0); PLATELET COUNT 116 10^3/UL (140-415); RED CELL DISTRIBUTION WIDTH 22.1 % (11.5-14.5); WHITE BLOOD COUNT 7.9 10^3/ul (4.8-10.8)
[2017-06-11 18:40] LABS: POSITIVE DIFF @See below
--- NOTE | 2017-06-11 20:55 | CONS ---
Date/Time of Note Date/Time of Note DATE: 06/11/17 TIME: 20:51 Assessment/Plan Assessment/Plan Chief Complaint/Hosp Course This 69-year-old female with a history of CVA vent dependent respiratory failure , was brought to the emergency room for the dislodgment of the GJ tube. Patient is nonverbal and no information can be obtained. No GI bleeding no chest pain no shortness of breath. Problems: Additional Assessment/Plan Additional Assessment/Plan Additional Assessment/Plan 1. Dislodged GJ tube accidentally 2. Vent dependent respiratory failure 3. Chronic encephalopathy 4. Renal failure 5. Peripheral vascular disease 6. Anemia, secondary to chronic disease no evidence of active bleeding 7. 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 Hypotension, corrected patient is off dopamine for more than 24 hours 9. Decubitus ulcer 10. Workup for adrenal insufficiency, patient is on steroid now and off dopamine 11. Sepsis Plan Continue all supportive care monitor H&H fistula is closing discontinue intralipid Consultation Date/Type/Reason Admit Date/Time May 06, 2017 at 16:34 Type of Consultation: CARDIOLOGY Referring Provider: OSMAR MONTAGUE DO 24 HR Interval Summary Free Text/Dictation as per staff bleeding from GC fistula Exam/Review of Systems Vital Signs Vitals Vital Signs Date Time Temp Pulse Resp B/P Pulse Ox O2 Delivery O2 Flow Rate FiO2 06/11/17 20:22 97.4 73 21 123/60 98 06/11/17 17:15 30 06/09/17 04:00 Mechanical Ventilator Intake and Output 06/10/17 06/10/17 06/11/17 15:00 23:00 07:00 Intake Total 250 ml 0 ml Output Total 100 ml Balance 250 ml -100 ml Exam Constitutional: non-verbal Head: atraumatic ENMT: intubated Neck: non-tender, supple Respiratory: other (on vent) Cardiovascular: nl pulses, regular rate and rhythm Extremities: normal pulses Neurological: unresponsive Results Result Diagram: 06/11/17 1823 06/10/17 1010 Results 24 hrs Laboratory Tests Test 06/10/17 21:59 06/11/17 01:28 06/11/17 05:33 06/11/17 09:20 Bedside Glucose 83 98 102 109 Test 06/11/17 13:11 06/11/17 16:45 06/11/17 18:23 Bedside Glucose 126 134 White Blood Count 7.9 # Red Blood Count 3.30 L Hemoglobin 9.9 L Hematocrit 31.9 L Mean Corpuscular Volume 96.7 Mean Corpuscular Hemoglobin 30.0 Mean Corpuscular Hemoglobin Concent 31.0 L Red Cell Distribution Width 22.1 H Platelet Count 116 L Mean Platelet Volume 10.9 H Neutrophils % 83.9 H Lymphocytes % 8.1 L Monocytes % 5.3 Eosinophils % 2.4 Basophils % 0.0 Nucleated Red Blood Cells % 0.0 Neutrophils # (Manual) 7 Lymphocytes # 0.6 L Monocytes # 0.4 Eosinophils # 0.2 Basophils # 0.0 Nucleated Red Blood Cells # 0.0 Medications Medications Current Medications Bisacodyl (Dulcolax Supp) 10 mg Q48H [place] Last administered on 06/11/17 17:56; Admin Dose 10 MG; Start 05/06/17 at 17:00 Sodium Biphosphate/ Sodium Phosphate (Fleet Enema Pediatric) 118 ml Q72H PRN [place] CONSTIPATION; Start 05/06/17 at 17:00 Citric Acid/ Sodium Citrate (Bicitra) 30 ml BID PO Last administered on 09:09; Admin Dose 30 ML; Start 05/06/17 at 21:00 Nystatin (Nystatin Powder) 1 applic BID TOP Last administered on 06/11/17 09: 24; Admin Dose 1 APPLIC; Start 05/09/17 at 21:00 Collagenase (Santyl) 1 applic DAILY TOP Last administered on 06/09/17 10:19; Admin Dose 1 APPLIC; Start 05/09/17 at 15:00 Collagenase (Santyl) 1 applic PRN PRN TOP WOUND CARE Last administered on 02:33; Admin Dose 1 APPLIC; Start 05/09/17 at 14:00 Miscellaneous Information 1 ea NOTE XX ; Start 05/11/17 at 08:00 Glucose (Glutose) 15 gm Q15M PRN PO DECREASED GLUCOSE; Start 05/11/17 at 08:00 Glucose (Glutose) 22.5 gm Q15M PRN PO DECREASED GLUCOSE; Start 05/11/17 at 08: 00 Dextrose (D50w Syringe) 25 ml Q15M PRN IV DECREASED GLUCOSE Last administered on 06/10/17 09:24; Admin Dose 25 ML; Start 05/11/17 at 08:00 Dextrose (D50w Syringe) 50 ml Q15M PRN IV DECREASED GLUCOSE Last administered on 06/10/17 16:12; Admin Dose 50 ML; Start 05/11/17 at 08:00 Glucagon (Glucagen) 1 mg Q15M PRN IM DECREASED GLUCOSE Last administered on 12:10; Admin Dose 1 MG; Start 05/11/17 at 08:00 Glucose (Glutose) 15 gm Q15M PRN BUCCAL DECREASED GLUCOSE Last administered on 06/10/17 09:49; Admin Dose 15 GM; Start 05/11/17 at 08:00 Epoetin Vasyl (Epogen (Esrd)) 10,000 units MoWeFr@17 SC Last administered on 21:55; Admin Dose 10,000 UNITS; Start 05/13/17 at 17:00 IV Flush (NS 10 ml) 10 ml PRN PRN IV IV PROTOCOL; Start 05/15/17 at 17:30 Insulin Aspart NOVOLOG *MILD* ALGORI... Q4 SC Last administered on 06/01/17 21 :32; Admin Dose 1 UNIT; Start 05/26/17 at 09:00 Total Parenteral Nutrition 1,000 ml @ 40 mls/hr Q24H IV Last administered on 18:24; Admin Dose 40 MLS/HR; Start 05/27/17 at 14:00 Fat Emulsion Intravenous (Liposyn Ii 20%) 250 ml @ 31.25 mls/ hr Q24H IV Last administered on 06/11/17 10:56; Admin Dose 31.25 MLS/HR; Start 05/28/17 at 10:00 Famotidine 20 mg 20 mg DAILY IV Last administered on 06/11/17 09:17; Admin Dose 20 MG; Start 05/29/17 at 09:00 Sodium Chloride 1,000 ml @ 75 mls/hr [id number] IV Last administered on 09:17; Admin Dose 75 MLS/HR; Start 06/01/17 at 21:00 Caspofungin/ Sodium Chloride (Cancidas/NS) 250 ml @ 250 mls/hr Q24H IVPB Last administered on 06/11/17 16:00; Admin Dose 250 MLS/HR; Start 06/04/17 at 15:30 Hydrocortisone (Solu-Cortef) 10 mg Q8 IV Last administered on 06/11/17t 13:13; Admin Dose 10 MG; Start 06/06/17 at 14:00 IV Flush (NS 10 ml) 10 ml PRN PRN IV IV PROTOCOL; Start 06/10/17 at 18:00 SYLWIA SY MD Jun 11, 2017 20:55
[2017-06-12] VITALS (24 sets, daily range): BP systolic 100–125; BP diastolic 50–80; PULSE 64–71; RESP 14–20
[2017-06-12] MEDS: INSULIN ASPART [NOVOLOG] 3 ML PEN SC SCH ×6 (01:00→21:00)
[2017-06-12] MEDS: SOD CHLORIDE 0.9% 1,000 ML IV SCH (01:18)
[2017-06-12] MEDS: HYDROCORTISONE 100 MG INJ IV SCH ×3 (05:16→22:20)
[2017-06-12 07:28] LABS: CALCIUM 8.8 mg/dl (8.4-10.2); CREATININE 2.43 mg/dl (0.44-1.00); POTASSIUM 3.1 mmol/L (3.5-5.1)
[2017-06-12] MEDS: CITRIC ACID/NA CITRATE 30 ML CUP PO SCH ×2 (08:10→21:00)
[2017-06-12] MEDS: FAMOTIDINE 20 MG INJ IV SCH (08:11)
[2017-06-12] MEDS: NYSTATIN 30 GM POWDER BTL TOP SCH ×2 (08:12→22:20)
[2017-06-12] MEDS: COLLAGENASE 30 GM TUBE TOP SCH (08:13)
--- NOTE | 2017-06-12 08:32 | CONS ---
Date/Time of Note Date/Time of Note DATE: 06/12/17 TIME: 08:30 Consult Date/Type/Reason Admit Date/Time May 06, 2017 at 16:34 Initial Consult Date 05/22/17 Type of Consultation: CARDIOLOGY Ordering Provider: OSMAR MONTAGUE DO Subjective CARDIOLOGY FOLLOW UP NOTE: Discussed with staff and rhythm was reviewed. Pt remains in NSR with frequent PAC pt remains NONVERBAL ON Vent pt is on TELE now OBJECTIVE: General: no acute distress. s/p trach on vent. HEENT: NC/AT. NECK: NO JVD. no stridor. S/P trach on vent CV: RRR. systolic murmur; no gallop or rubs. PULM: no wheezing anteriorly GI: SOFT, NT, ND, no rebound or guarding s/p dressing at the site of previous G tube Extremity: + B/L LE and UE edema. no clubbing. neuro: opens her eyes to painful stimuli. does not follow commands Psych: calm rectal: deferred Objective Vital Signs Date Time Temp Pulse Resp B/P Pulse Ox O2 Delivery O2 Flow Rate FiO2 06/12/17 07:28 97.8 67 20 104/50 94 06/12/17 04:40 30 06/09/17 04:00 Mechanical Ventilator Intake and Output 06/11/17 06/11/17 06/12/17 15:00 23:00 07:00 Intake Total 1848 ml 1380 ml Output Total 150 ml 350 ml Balance 1698 ml 1030 ml Results/Medications Result Diagram: 06/11/17 1823 06/12/17 0617 Results 24 hrs Laboratory Tests Test 06/11/17 09:20 06/11/17 13:11 06/11/17 16:45 06/11/17 18:23 Bedside Glucose 109 126 134 White Blood Count 7.9 # Red Blood Count 3.30 L Hemoglobin 9.9 L Hematocrit 31.9 L Mean Corpuscular Volume 96.7 Mean Corpuscular Hemoglobin 30.0 Mean Corpuscular Hemoglobin Concent 31.0 L Red Cell Distribution Width 22.1 H Platelet Count 116 L Mean Platelet Volume 10.9 H Neutrophils % 83.9 H Lymphocytes % 8.1 L Monocytes % 5.3 Eosinophils % 2.4 Basophils % 0.0 Nucleated Red Blood Cells % 0.0 Neutrophils # (Manual) 7 Lymphocytes # 0.6 L Monocytes # 0.4 Eosinophils # 0.2 Basophils # 0.0 Nucleated Red Blood Cells # 0.0 Test 06/11/17 21:30 06/12/17 01:22 06/12/17 05:13 06/12/17 06:17 Bedside Glucose 116 119 126 Sodium Level 150 H Potassium Level 3.1 L Chloride Level 102 Carbon Dioxide Level 36 H Anion Gap 15 Blood Urea Nitrogen 56 H Creatinine 2.43 H Glucose Level 117 # Calcium Level 8.8 Medications Current Medications Bisacodyl (Dulcolax Supp) 10 mg Q48H [place] Last administered on 06/11/17 17:56; Admin Dose 10 MG; Start 05/06/17 at 17:00 Sodium Biphosphate/ Sodium Phosphate (Fleet Enema Pediatric) 118 ml Q72H PRN [place] CONSTIPATION; Start 05/06/17 at 17:00 Citric Acid/ Sodium Citrate (Bicitra) 30 ml BID PO Last administered on 09:09; Admin Dose 30 ML; Start 05/06/17 at 21:00 Nystatin (Nystatin Powder) 1 applic BID TOP Last administered on 06/12/17 08: 12; Admin Dose 1 APPLIC; Start 05/09/17 at 21:00 Collagenase (Santyl) 1 applic DAILY TOP Last administered on 06/12/17 08:13; Admin Dose 1 APPLIC; Start 05/09/17 at 15:00 Collagenase (Santyl) 1 applic PRN PRN TOP WOUND CARE Last administered on 02:33; Admin Dose 1 APPLIC; Start 05/09/17 at 14:00 Miscellaneous Information 1 ea NOTE XX ; Start 05/11/17 at 08:00 Glucose (Glutose) 15 gm Q15M PRN PO DECREASED GLUCOSE; Start 05/11/17 at 08:00 Glucose (Glutose) 22.5 gm Q15M PRN PO DECREASED GLUCOSE; Start 05/11/17 at 08: 00 Dextrose (D50w Syringe) 25 ml Q15M PRN IV DECREASED GLUCOSE Last administered on 06/10/17 09:24; Admin Dose 25 ML; Start 05/11/17 at 08:00 Dextrose (D50w Syringe) 50 ml Q15M PRN IV DECREASED GLUCOSE Last administered on 06/10/17 16:12; Admin Dose 50 ML; Start 05/11/17 at 08:00 Glucagon (Glucagen) 1 mg Q15M PRN IM DECREASED GLUCOSE Last administered on 12:10; Admin Dose 1 MG; Start 05/11/17 at 08:00 Glucose (Glutose) 15 gm Q15M PRN BUCCAL DECREASED GLUCOSE Last administered on 06/10/17 09:49; Admin Dose 15 GM; Start 05/11/17 at 08:00 Epoetin Vasyl (Epogen (Esrd)) 10,000 units MoWeFr@17 SC Last administered on 21:55; Admin Dose 10,000 UNITS; Start 05/13/17 at 17:00 IV Flush (NS 10 ml) 10 ml PRN PRN IV IV PROTOCOL; Start 05/15/17 at 17:30 Insulin Aspart NOVOLOG *MILD* ALGORI... Q4 SC Last administered on 06/01/17 21 :32; Admin Dose 1 UNIT; Start 05/26/17 at 09:00 Total Parenteral Nutrition 1,000 ml @ 40 mls/hr Q24H IV Last administered on 21:42; Admin Dose 40 MLS/HR; Start 05/27/17 at 14:00 Fat Emulsion Intravenous (Liposyn Ii 20%) 250 ml @ 31.25 mls/ hr Q24H IV Last administered on 06/11/17 10:56; Admin Dose 31.25 MLS/HR; Start 05/28/17 at 10:00 Famotidine 20 mg 20 mg DAILY IV Last administered on 06/12/17 08:11; Admin Dose 20 MG; Start 05/29/17 at 09:00 Sodium Chloride 1,000 ml @ 75 mls/hr [id number] IV Last administered on 01:18; Admin Dose 75 MLS/HR; Start 06/01/17 at 21:00 Caspofungin/ Sodium Chloride (Cancidas/NS) 250 ml @ 250 mls/hr Q24H IVPB Last administered on 06/11/17 16:00; Admin Dose 250 MLS/HR; Start 06/04/17 at 15:30 Hydrocortisone (Solu-Cortef) 10 mg Q8 IV Last administered on 06/12/17 05:16; Admin Dose 10 MG; Start 06/06/17 at 14:00 IV Flush (NS 10 ml) 10 ml PRN PRN IV IV PROTOCOL; Start 06/10/17 at 18:00 Assessment/Plan Chief Complaint/Hosp Course 1. hypoxemic hypercapnic resp failure: s/p trach 2. Pafib; currently in NSR 3. hx HTN: 4. encephalopathy 5. renal failure: f/u with nephrology 6. dysphagia 7. G tube malfunction/ infection: unable to repair by GI. 8. GI bleed 9. severe anemia 10. malnutrition 11. anasarca and fluid overload. cont resp care nutritional support. correct lytes prn off of PLAVIX DUE TO ANEMIA/ BLEEDING. F/U with GI and surgery rec. nutritional support will be continued . CODE STATUS IS chemical code only now. THANK YOU. Problems: MILAGROS MUNOZ MD Jun 12, 2017 08:32
[2017-06-12] MEDS: FAT EMULSION 20% 250 ML IV SCH (09:19)
--- NOTE | 2017-06-12 11:26 | PN ---
DATE: 06/12/2017 SUBJECTIVE DATA: The patient's condition remains unchanged. Patient remains completely unresponsive and remains chronically ventilator dependent. Has remained hemodynamically stable, though. OBJECTIVE DATA: GENERAL: Elderly woman on a ventilator via tracheostomy. Currently in no distress. Unresponsive. VITAL SIGNS: Temperature 97.8 degrees Fahrenheit, respiratory rate is 16 per minute, heart rate 80 per minute, blood pressure 110/65, O2 sat 96 percent. NECK: Supple neck. Positive JVD. No lymphadenopathy. Midline trachea. No thyromegaly. Tracheostomy in place. Insertion site is clean. CHEST: Diminished breath sounds bilaterally. S1, S2 audible. No murmurs. Regular rhythm. ABDOMEN: Soft. G-tube in place. Bowel sounds audible. EXTREMITIES: 2+ generalized edema with multiple ecchymoses involving all 4 extremities. COSMETIC MAKER: Patient remains completely unresponsive. VENTILATOR SETTINGS: AC of 16, tidal volume 500, PEEP of 5, 30 percent FiO2. MEDICATIONS: Reviewed. The patient currently on: 1. TPN. 2. Caspofungin. Other medications were reviewed as well. ASSESSMENT: 1. The patient admitted for sepsis with interval improvement. 2. End-stage lung. Patient remains chronically ventilator dependent. 3. Advanced dementia. 4. Renal insufficiency. 5. Anemia and thrombocytopenia. 6. Ileus. 7. Fungemia. RECOMMENDATIONS: Continue current supportive care. Overall prognosis remains extremely poor. Dictated By: Delvin Wilkinson MD /junie/rajesh /Document#: [id number]
[2017-06-12] MEDS ORDERED: POTASSIUM CHLORIDE 250 ML IVPB ONE (13:00)
--- NOTE | 2017-06-12 14:16 | PN ---
DATE: 06/12/2017 SUBJECTIVE DATA: The patient remains in serious condition, on TPN. Please note, I spoke with the patient's son who is agreed for the patient to be placed on comfort measures. The plan would be for the patient to be transferred back to her subacute facility on comfort measures. The patient's son is aware that his mother's condition is declining in that she is reaching end of life. No other events noted. OBJECTIVE DATA: VITAL SIGNS: Blood pressure is 125/59, respirations 20, pulse 71, temperature 97.1. HEENT: Head is normocephalic. NECK: Supple. HEART: Regular rate. LUNGS: Diminished breath sounds at the base. ABDOMEN: Soft, nontender to palpation. Positive gastric cutaneous fistula. EXTREMITIES: Positive for edema of lower extremities. DERMATOLOGIC: No rashes. MUSCULOSKELETAL: Positive wounds, positive contractures. MEDICATION: Reviewed. LABORATORY AND DIAGNOSTIC DATA: Shows sodium 150, potassium , chloride 102, BUN 56, creatinine 2.43. White count 10.9, hemoglobin 9.9, hematocrit 31.9, platelet count is 116,000. ASSESSMENT AND PLAN: 1. Sepsis status post shock. Etiology multifactorial. The patient is currently on pressors. Continue current antibiotic regimen. 2. Anemia. The patient is SP blood transfusion. Monitor hemoglobin and hematocrit levels. 3. Questionable adrenal insufficiency. The patient is being tapered down steroids. 4. . Continue to monitor. 5. Oliguric acute kidney injury on top of chronic kidney disease stage 4. Etiology secondary acute tubular necrosis. No plan for hemodialysis in the patient. Continue to monitor. 6. Ventilator dependent respiratory failure. Ventilator settings and arterial blood gases reviewed. 7. Hypernatremia, secondary to insensible losses. The patient will be given hypotonic fluid. 8. Acute encephalopathy and advanced dementia. Etiology toxic metabolic. 9. Volume overload. Monitor. 10. Diabetes. Continue Accu-Cheks and sliding scale. 11. Nutrition. The patient is on TPN. Continue. 12. Decubitus wound. Continue wound care. 13. Metabolic acidosis, secondary acute kidney injury. Continue to monitor. Please note, I spoke with the patient's son as stated above. The son agrees to comfort measures. Anticipate transfer the patient back to subacute facility on comfort care. Dictated By: Brendan Rosas DO /junie/douglas /Document#: [id number]
[2017-06-12] MEDS: DEXTROSE 5% 1,000 ML IV SCH (14:37)
[2017-06-12] MEDS: CASPOFUNGIN 50 MG in SOD CHLORIDE 0.9% 250 ML IVPB SCH (16:07)
--- NOTE | 2017-06-12 16:23 | CONS ---
Date/Time of Note Date/Time of Note DATE: 06/12/17 TIME: 16:22 Assessment/Plan Assessment/Plan Chief Complaint/Hosp Course SUBJECTIVE DATA: No acute changes, nonverbal and noncommunicative, comfortable on the vent, on TPN and Lipids MICROBIOLOGY: Blood culture since June 03 is negative. Urine culture growing Gillian albicans. Abx: Cancidas INDWELLING: Trach, PICC line, and Collazo. PHYSICAL EXAMINATION: GENERAL: Chronically ill-appearing, elderly woman, who is nonverbal, noncommunicative, in no distress. HEENT: Head atraumatic, normocephalic. Sclerae anicteric. Buccal mucosa dry. NECK: Supple. Tracheostomy present. CHEST: Rise symmetrical. Breath sounds with bilateral scattered crackles. HEART: S1, S2. ABDOMEN: Soft, distended. Bowel sounds hypoactive. EXTREMITIES: With bilateral edema. SKIN: With generalized edema and erythema. ASSESSMENT: 1. Status post shock, multifactorial. 2. Gillian albicans urinary tract infection (UTI). 3. S/p Healthcare associated pneumonia 4. G-tube malfunction/GC fistula. 5. Chronic encephalopathy. 6. Acute on chronic kidney disease. 7. Diabetes. PLAN: Remains unchanged, continue present care, dc Kandis, f/u GI/surgical rec-s, cano cx prn DW staff Problems: Consultation Date/Type/Reason Admit Date/Time May 06, 2017 at 16:34 Initial Consult Date 05/09/17 Type of Consultation: ID Referring Provider: OSMAR MONTAGUE DO Exam/Review of Systems Vital Signs Vitals Vital Signs Date Time Temp Pulse Resp B/P Pulse Ox O2 Delivery O2 Flow Rate FiO2 06/12/17 15:40 70 16 98 30 06/12/17 15:24 97.2 121/57 06/09/17 04:00 Mechanical Ventilator Intake and Output 06/11/17 06/11/17 06/12/17 15:00 23:00 07:00 Intake Total 1848 ml 1380 ml Output Total 150 ml 350 ml Balance 1698 ml 1030 ml Results Result Diagram: 06/11/17 1823 06/12/17 0617 Results 24 hrs Laboratory Tests Test 06/11/17 16:45 06/11/17 18:23 06/11/17 21:30 06/12/17 01:22 Bedside Glucose 134 116 119 White Blood Count 7.9 # Red Blood Count 3.30 L Hemoglobin 9.9 L Hematocrit 31.9 L Mean Corpuscular Volume 96.7 Mean Corpuscular Hemoglobin 30.0 Mean Corpuscular Hemoglobin Concent 31.0 L Red Cell Distribution Width 22.1 H Platelet Count 116 L Mean Platelet Volume 10.9 H Neutrophils % 83.9 H Lymphocytes % 8.1 L Monocytes % 5.3 Eosinophils % 2.4 Basophils % 0.0 Nucleated Red Blood Cells % 0.0 Neutrophils # (Manual) 7 Lymphocytes # 0.6 L Monocytes # 0.4 Eosinophils # 0.2 Basophils # 0.0 Nucleated Red Blood Cells # 0.0 Test 06/12/17 05:13 06/12/17 06:17 06/12/17 08:51 06/12/17 12:48 Bedside Glucose 126 139 121 Sodium Level 150 H Potassium Level 3.1 L Chloride Level 102 Carbon Dioxide Level 36 H Anion Gap 15 Blood Urea Nitrogen 56 H Creatinine 2.43 H Glucose Level 117 # Calcium Level 8.8 Medications Medications Current Medications Bisacodyl (Dulcolax Supp) 10 mg Q48H OR Last administered on 06/11/17 17:56; Admin Dose 10 MG; Start 05/06/17 at 17:00 Sodium Biphosphate/ Sodium Phosphate (Fleet Enema Pediatric) 118 ml Q72H PRN [place] CONSTIPATION; Start 05/06/17 at 17:00 Citric Acid/ Sodium Citrate (Bicitra) 30 ml BID PO Last administered on 09:09; Admin Dose 30 ML; Start 05/06/17 at 21:00 Nystatin (Nystatin Powder) 1 applic BID TOP Last administered on 06/12/17 08: 12; Admin Dose 1 APPLIC; Start 05/09/17 at 21:00 Collagenase (Santyl) 1 applic DAILY TOP Last administered on 06/12/17 08:13; Admin Dose 1 APPLIC; Start 05/09/17 at 15:00 Collagenase (Santyl) 1 applic PRN PRN TOP WOUND CARE Last administered on 02:33; Admin Dose 1 APPLIC; Start 05/09/17 at 14:00 Miscellaneous Information 1 ea NOTE XX ; Start 05/11/17 at 08:00 Glucose (Glutose) 15 gm Q15M PRN PO DECREASED GLUCOSE; Start 05/11/17 at 08:00 Glucose (Glutose) 22.5 gm Q15M PRN PO DECREASED GLUCOSE; Start 05/11/17 at 08: 00 Dextrose (D50w Syringe) 25 ml Q15M PRN IV DECREASED GLUCOSE Last administered on 06/10/17 09:24; Admin Dose 25 ML; Start 05/11/17 at 08:00 Dextrose (D50w Syringe) 50 ml Q15M PRN IV DECREASED GLUCOSE Last administered on 06/10/17 16:12; Admin Dose 50 ML; Start 05/11/17 at 08:00 Glucagon (Glucagen) 1 mg Q15M PRN IM DECREASED GLUCOSE Last administered on 12:10; Admin Dose 1 MG; Start 05/11/17 at 08:00 Glucose (Glutose) 15 gm Q15M PRN BUCCAL DECREASED GLUCOSE Last administered on 06/10/17 09:49; Admin Dose 15 GM; Start 05/11/17 at 08:00 Epoetin Vasyl (Epogen (Esrd)) 10,000 units MoWeFr@17 SC Last administered on 21:55; Admin Dose 10,000 UNITS; Start 05/13/17 at 17:00 IV Flush (NS 10 ml) 10 ml PRN PRN IV IV PROTOCOL; Start 05/15/17 at 17:30 Insulin Aspart NOVOLOG *MILD* ALGORI... Q4 SC Last administered on 06/01/17 21 :32; Admin Dose 1 UNIT; Start 05/26/17 at 09:00 Total Parenteral Nutrition 1,000 ml @ 40 mls/hr Q24H IV Last administered on 21:42; Admin Dose 40 MLS/HR; Start 05/27/17 at 14:00 Fat Emulsion Intravenous (Liposyn Ii 20%) 250 ml @ 31.25 mls/ hr Q24H IV Last administered on 06/12/17 09:19; Admin Dose 31.25 MLS/HR; Start 05/28/17 at 10:00 Famotidine 20 mg 20 mg DAILY IV Last administered on 06/12/17 08:11; Admin Dose 20 MG; Start 05/29/17 at 09:00 Caspofungin/ Sodium Chloride (Cancidas/NS) 250 ml @ 250 mls/hr Q24H IVPB Last administered on 06/12/17 16:07; Admin Dose 250 MLS/HR; Start 06/04/17 at 15:30 Hydrocortisone (Solu-Cortef) 10 mg Q8 IV Last administered on 06/12/17 14:38; Admin Dose 10 MG; Start 06/06/17 at 14:00 IV Flush 10 ml 10 ml PRN PRN IV IV PROTOCOL; Start 06/10/17 at 18:00 Dextrose 1,000 ml @ 50 mls/hr Q20H IV Last administered on 06/12/17 14:37; Admin Dose 50 MLS/HR; Start 06/12/17 at 13:00 Potassium Chloride (KCl 40 MEQ/250 ML NS) 250 ml @ 62.5 mls/hr ONCE ONCE IVPB Last administered on 06/12/17 14:40; Admin Dose 62.5 MLS/HR; Start 06/12/17 at 13:00; Stop 06/12/17 at 16:59 DOROTHY CORONADO NP Jun 12, 2017 16:23
[2017-06-12] MEDS: EPOETIN 10000 UNITS/1 ML INJ (ESRD) SC SCH (16:38)
--- NOTE | 2017-06-12 21:24 | CONS ---
Date/Time of Note Date/Time of Note DATE: 06/12/17 TIME: 21:20 Assessment/Plan Assessment/Plan Chief Complaint/Hosp Course This 69-year-old female with a history of CVA vent dependent respiratory failure , was brought to the emergency room for the dislodgment of the GJ tube. Patient is nonverbal and no information can be obtained. No GI bleeding no chest pain no shortness of breath. Problems: Additional Assessment/Plan Additional Assessment/Plan Additional Assessment/Plan 1. Dislodged GJ tube accidentally 2. Vent dependent respiratory failure 3. Chronic encephalopathy 4. Renal failure 5. Peripheral vascular disease 6. Anemia, secondary to chronic disease no evidence of active bleeding 7. 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 Hypotension, corrected patient is off dopamine for more than 24 hours 9. Decubitus ulcer 10. Workup for adrenal insufficiency, patient is on steroid now and off dopamine 11. Sepsis fistula is closing discontinue intralipid Consultation Date/Type/Reason Admit Date/Time May 06, 2017 at 16:34 Type of Consultation: ID Referring Provider: OSMAR MONTAGUE DO 24 HR Interval Summary Subjective hx not possible: pt non-verbal Exam/Review of Systems Vital Signs Vitals Vital Signs Date Time Temp Pulse Resp B/P Pulse Ox O2 Delivery O2 Flow Rate FiO2 06/12/17 17:20 72 16 98 30 06/12/17 15:24 97.2 121/57 06/09/17 04:00 Mechanical Ventilator Intake and Output 06/11/17 06/11/17 06/12/17 15:00 23:00 07:00 Intake Total 1848 ml 1380 ml Output Total 150 ml 350 ml Balance 1698 ml 1030 ml Exam Respiratory: other (on vent) Cardiovascular: nl pulses, regular rate and rhythm Extremities: normal pulses Neurological: unresponsive Results Result Diagram: 06/11/17 1823 06/12/17 0617 Results 24 hrs Laboratory Tests Test 06/11/17 21:30 06/12/17 01:22 06/12/17 05:13 06/12/17 06:17 Bedside Glucose 116 119 126 Sodium Level 150 H Potassium Level 3.1 L Chloride Level 102 Carbon Dioxide Level 36 H Anion Gap 15 Blood Urea Nitrogen 56 H Creatinine 2.43 H Glucose Level 117 # Calcium Level 8.8 Test 06/12/17 08:51 06/12/17 12:48 06/12/17 16:36 Bedside Glucose 139 121 120 Medications Medications Current Medications Bisacodyl (Dulcolax Supp) 10 mg Q48H [place] Last administered on 06/11/17 17:56; Admin Dose 10 MG; Start 05/06/17 at 17:00 Sodium Biphosphate/ Sodium Phosphate (Fleet Enema Pediatric) 118 ml Q72H PRN [place] CONSTIPATION; Start 05/06/17 at 17:00 Citric Acid/ Sodium Citrate (Bicitra) 30 ml BID PO Last administered on 09:09; Admin Dose 30 ML; Start 05/06/17 at 21:00 Nystatin (Nystatin Powder) 1 applic BID TOP Last administered on 06/12/17 08: 12; Admin Dose 1 APPLIC; Start 05/09/17 at 21:00 Collagenase (Santyl) 1 applic DAILY TOP Last administered on 06/12/17 08:13; Admin Dose 1 APPLIC; Start 05/09/17 at 15:00 Collagenase (Santyl) 1 applic PRN PRN TOP WOUND CARE Last administered on 02:33; Admin Dose 1 APPLIC; Start 05/09/17 at 14:00 Miscellaneous Information 1 ea NOTE XX ; Start 05/11/17 at 08:00 Glucose (Glutose) 15 gm Q15M PRN PO DECREASED GLUCOSE; Start 05/11/17 at 08:00 Glucose (Glutose) 22.5 gm Q15M PRN PO DECREASED GLUCOSE; Start 05/11/17 at 08: 00 Dextrose (D50w Syringe) 25 ml Q15M PRN IV DECREASED GLUCOSE Last administered on 06/10/17 09:24; Admin Dose 25 ML; Start 05/11/17 at 08:00 Dextrose (D50w Syringe) 50 ml Q15M PRN IV DECREASED GLUCOSE Last administered on 06/10/17 16:12; Admin Dose 50 ML; Start 05/11/17 at 08:00 Glucagon (Glucagen) 1 mg Q15M PRN IM DECREASED GLUCOSE Last administered on 12:10; Admin Dose 1 MG; Start 05/11/17 at 08:00 Glucose (Glutose) 15 gm Q15M PRN BUCCAL DECREASED GLUCOSE Last administered on 06/10/17 09:49; Admin Dose 15 GM; Start 05/11/17 at 08:00 Epoetin Vasyl (Epogen (Esrd)) 10,000 units MoWeFr@17 SC Last administered on 16:38; Admin Dose 10,000 UNITS; Start 05/13/17 at 17:00 IV Flush (NS 10 ml) 10 ml PRN PRN IV IV PROTOCOL; Start 05/15/17 at 17:30 Insulin Aspart NOVOLOG *MILD* ALGORI... Q4 SC Last administered on 06/01/17 21 :32; Admin Dose 1 UNIT; Start 05/26/17 at 09:00 Total Parenteral Nutrition 1,000 ml @ 40 mls/hr Q24H IV Last administered on 21:42; Admin Dose 40 MLS/HR; Start 05/27/17 at 14:00 Fat Emulsion Intravenous (Liposyn Ii 20%) 250 ml @ 31.25 mls/ hr Q24H IV Last administered on 06/12/17 09:19; Admin Dose 31.25 MLS/HR; Start 05/28/17 at 10:00 Famotidine (Pepcid Iv) 20 mg DAILY IV Last administered on 06/12/17 08:11; Admin Dose 20 MG; Start 05/29/17 at 09:00 Hydrocortisone (Solu-Cortef) 10 mg Q8 IV Last administered on 06/12/17 14:38; Admin Dose 10 MG; Start 06/06/17 at 14:00 IV Flush 10 ml 10 ml PRN PRN IV IV PROTOCOL; Start 06/10/17 at 18:00 Dextrose (D5W) 1,000 ml @ 50 mls/hr Q20H IV Last administered on 06/12/17 14: 37; Admin Dose 50 MLS/HR; Start 06/12/17 at 13:00 SYLWIA SY MD Jun 12, 2017 21:24
[2017-06-13] VITALS (24 sets, daily range): BP systolic 116–180; BP diastolic 60–81; PULSE 67–83; RESP 16–20
[2017-06-13] MEDS: INSULIN ASPART [NOVOLOG] 3 ML PEN SC SCH ×6 (01:00→21:00)
[2017-06-13] MEDS: TPN 1,000 ML IV SCH (01:42)
[2017-06-13] MEDS: HYDROCORTISONE 100 MG INJ IV SCH ×3 (06:46→22:23)
[2017-06-13 07:55] LABS: CALCIUM 8.7 mg/dl (8.4-10.2); CREATININE 2.37 mg/dl (0.44-1.00); MAGNESIUM 2.3 mg/dl (1.7-2.5); POTASSIUM 3.5 mmol/L (3.5-5.1)
[2017-06-13] MEDS ORDERED: FUROSEMIDE 40 MG INJ IV ONE (08:30)
[2017-06-13] MEDS: CITRIC ACID/NA CITRATE 30 ML CUP PO SCH ×2 (08:42→21:00)
[2017-06-13] MEDS: FAMOTIDINE 20 MG INJ IV SCH (08:48)
[2017-06-13] MEDS: NYSTATIN 30 GM POWDER BTL TOP SCH ×2 (08:49→21:00)
[2017-06-13] MEDS: COLLAGENASE 30 GM TUBE TOP SCH (08:49)
[2017-06-13] MEDS: DEXTROSE 5% 1,000 ML IV SCH (08:50)
--- NOTE | 2017-06-13 09:16 | CONS ---
Date/Time of Note Date/Time of Note DATE: 06/13/17 TIME: 09:15 Consult Date/Type/Reason Admit Date/Time May 06, 2017 at 16:34 Initial Consult Date 05/22/17 Type of Consultation: CARD Ordering Provider: OSMAR MONTAGUE DO Subjective CARDIOLOGY FOLLOW UP NOTE: Discussed with staff and rhythm was reviewed. Pt remains in NSR with frequent PAC and P afib. pt remains NONVERBAL ON Vent pt is on TELE now OBJECTIVE: General: no acute distress. s/p trach on vent. HEENT: NC/AT. NECK: NO JVD. no stridor. S/P trach on vent CV: irregularly irregular . systolic murmur; no gallop or rubs. PULM: no wheezing anteriorly GI: SOFT, NT, ND, no rebound or guarding s/p dressing at the site of previous G tube Extremity: + B/L LE and UE edema. no clubbing. neuro: opens her eyes to painful stimuli. does not follow commands Psych: calm rectal: deferred Objective Vital Signs Date Time Temp Pulse Resp B/P Pulse Ox O2 Delivery O2 Flow Rate FiO2 06/13/17 07:17 98.3 68 19 158/65 98 06/13/17 05:25 30 Intake and Output 06/12/17 06/12/17 06/13/17 15:00 23:00 07:00 Intake Total 770 ml 990 ml Output Total 260 ml Balance 770 ml 730 ml Results/Medications Result Diagram: 06/11/17 1823 06/13/17 0624 Results 24 hrs Laboratory Tests Test 06/12/17 12:48 06/12/17 16:36 06/13/17 01:39 06/13/17 05:32 Bedside Glucose 121 120 127 136 Test 06/13/17 06:24 06/13/17 08:10 06/13/17 08:58 Sodium Level 147 H Potassium Level 3.5 Chloride Level 105 Carbon Dioxide Level 35 H Anion Gap 11 Blood Urea Nitrogen 56 H Creatinine 2.37 H Glucose Level 132 Calcium Level 8.7 Phosphorus Level 3.0 Magnesium Level 2.3 White Blood Count Pending Red Blood Count Pending Hemoglobin Pending Hematocrit Pending Mean Corpuscular Volume Pending Mean Corpuscular Hemoglobin Pending Mean Corpuscular Hemoglobin Concent Pending Red Cell Distribution Width Pending Platelet Count Pending Mean Platelet Volume Pending Bedside Glucose 139 Medications Current Medications Bisacodyl (Dulcolax Supp) 10 mg Q48H GA Last administered on 06/11/17 17:56; Admin Dose 10 MG; Start 05/06/17 at 17:00 Sodium Biphosphate/ Sodium Phosphate (Fleet Enema Pediatric) 118 ml Q72H PRN [place] CONSTIPATION; Start 05/06/17 at 17:00 Citric Acid/ Sodium Citrate (Bicitra) 30 ml BID PO Last administered on 09:09; Admin Dose 30 ML; Start 05/06/17 at 21:00 Nystatin (Nystatin Powder) 1 applic BID TOP Last administered on 06/13/17 08: 49; Admin Dose 1 APPLIC; Start 05/09/17 at 21:00 Collagenase (Santyl) 1 applic DAILY TOP Last administered on 06/13/17 08:49; Admin Dose 1 APPLIC; Start 05/09/17 at 15:00 Collagenase (Santyl) 1 applic PRN PRN TOP WOUND CARE Last administered on 02:33; Admin Dose 1 APPLIC; Start 05/09/17 at 14:00 Miscellaneous Information 1 ea NOTE XX ; Start 05/11/17 at 08:00 Glucose (Glutose) 15 gm Q15M PRN PO DECREASED GLUCOSE; Start 05/11/17 at 08:00 Glucose (Glutose) 22.5 gm Q15M PRN PO DECREASED GLUCOSE; Start 05/11/17 at 08: 00 Dextrose (D50w Syringe) 25 ml Q15M PRN IV DECREASED GLUCOSE Last administered on 06/10/17 09:24; Admin Dose 25 ML; Start 05/11/17 at 08:00 Dextrose (D50w Syringe) 50 ml Q15M PRN IV DECREASED GLUCOSE Last administered on 06/10/17 16:12; Admin Dose 50 ML; Start 05/11/17 at 08:00 Glucagon (Glucagen) 1 mg Q15M PRN IM DECREASED GLUCOSE Last administered on 12:10; Admin Dose 1 MG; Start 05/11/17 at 08:00 Glucose (Glutose) 15 gm Q15M PRN BUCCAL DECREASED GLUCOSE Last administered on 06/10/17 09:49; Admin Dose 15 GM; Start 05/11/17 at 08:00 Epoetin Vasyl (Epogen (Esrd)) 10,000 units MoWeFr@17 SC Last administered on 16:38; Admin Dose 10,000 UNITS; Start 05/13/17 at 17:00 IV Flush (NS 10 ml) 10 ml PRN PRN IV IV PROTOCOL; Start 05/15/17 at 17:30 Insulin Aspart NOVOLOG *MILD* ALGORI... Q4 SC Last administered on 06/01/17 21 :32; Admin Dose 1 UNIT; Start 05/26/17 at 09:00 Total Parenteral Nutrition (Tpn) 1,000 ml @ 40 mls/hr Q24H IV Last administered on 06/13/17 01:42; Admin Dose 40 MLS/HR; Start 05/27/17 at 14:00 Famotidine (Pepcid Iv) 20 mg DAILY IV Last administered on 06/13/17 08:48; Admin Dose 20 MG; Start 05/29/17 at 09:00 Hydrocortisone (Solu-Cortef) 10 mg Q8 IV Last administered on 06/13/17 06:46; Admin Dose 10 MG; Start 06/06/17 at 14:00 IV Flush 10 ml 10 ml PRN PRN IV IV PROTOCOL; Start 06/10/17 at 18:00 Dextrose (D5W) 1,000 ml @ 50 mls/hr Q20H IV Last administered on 06/12/17 14: 37; Admin Dose 50 MLS/HR; Start 06/12/17 at 13:00 Assessment/Plan Chief Complaint/Hosp Course 1. hypoxemic hypercapnic resp failure: s/p trach 2. Pafib; 3. hx HTN: 4. encephalopathy 5. renal failure: f/u with nephrology 6. dysphagia 7. G tube malfunction/ infection: unable to repair by GI. 8. GI bleed 9. severe anemia 10. malnutrition 11. anasarca and fluid overload. cont resp care nutritional support. correct lytes prn off of PLAVIX DUE TO ANEMIA/ BLEEDING. F/U with GI and surgery rec. nutritional support CODE STATUS IS chemical code only now. family is considering palliative care. THANK YOU. Problems: MILAGROS MUNOZ MD Jun 13, 2017 09:16
--- NOTE | 2017-06-13 11:57 | CONS ---
Date/Time of Note Date/Time of Note DATE: 06/13/17 TIME: 11:55 Assessment/Plan Assessment/Plan Additional Assessment/Plan Ventilator setting; AC of 16, tidal volume 500, PEEP of 5, 30% FiO2. Assessment and recommendations; 1. Patient with history of chronic respiratory failure and advanced dementia admitted for sepsis. Likely bilateral pneumonia. With significant interval improvement in chest x-ray. Next 2. History of anemia and thrombocytopenia. 3. Chronic renal insufficiency. Continue current supportive care. Prognosis is extremely poor. Consultation Date/Type/Reason Admit Date/Time May 06, 2017 at 16:34 Initial Consult Date 05/10/17 Type of Consultation: Pulmonary Referring Provider: OSMAR MONTAGUE DO 24 HR Interval Summary Free Text/Dictation Patient condition remains stable. Remains completely unresponsive which is her underlying mental status. Also remains chronically ventilator dependent. General exam; elderly woman, on ventilator via tracheostomy, unresponsive, currently in no distress. Exam/Review of Systems Vital Signs Vitals Vital Signs Date Time Temp Pulse Resp B/P Pulse Ox O2 Delivery O2 Flow Rate FiO2 06/13/17 11:10 98.5 79 19 122/76 98 06/13/17 11:10 30 Intake and Output 06/12/17 06/12/17 06/13/17 15:00 23:00 07:00 Intake Total 770 ml 990 ml Output Total 260 ml Balance 770 ml 730 ml Exam HEENT exam; supple neck, positive JVD. No lymphadenopathy. Midline trachea. No thyromegaly. Tracheostomy in place. Chest exam; diminished breath sounds bilaterally. S1-S2 audible, no murmurs. Regular rhythm. Abdomen exam; soft, G-tube in place. Bowel sounds are very sluggish. No organomegaly. Extremity exam; trace edema. DEFENSE ATTORNEY exam; patient remains unresponsive. Results Result Diagram: 06/11/17 1823 06/13/17 0624 Results 24 hrs Laboratory Tests Test 06/12/17 12:48 06/12/17 16:36 06/13/17 01:39 06/13/17 05:32 Bedside Glucose 121 120 127 136 Test 06/13/17 06:24 06/13/17 08:10 06/13/17 08:58 Sodium Level 147 H Potassium Level 3.5 Chloride Level 105 Carbon Dioxide Level 35 H Anion Gap 11 Blood Urea Nitrogen 56 H Creatinine 2.37 H Glucose Level 132 Calcium Level 8.7 Phosphorus Level 3.0 Magnesium Level 2.3 White Blood Count Pending Red Blood Count Pending Hemoglobin Pending Hematocrit Pending Mean Corpuscular Volume Pending Mean Corpuscular Hemoglobin Pending Mean Corpuscular Hemoglobin Concent Pending Red Cell Distribution Width Pending Platelet Count Pending Mean Platelet Volume Pending Bedside Glucose 139 Medications Medications Current Medications Bisacodyl (Dulcolax Supp) 10 mg Q48H [place] Last administered on 06/11/17 17:56; Admin Dose 10 MG; Start 05/06/17 at 17:00 Sodium Biphosphate/ Sodium Phosphate (Fleet Enema Pediatric) 118 ml Q72H PRN [place] CONSTIPATION; Start 05/06/17 at 17:00 Citric Acid/ Sodium Citrate (Bicitra) 30 ml BID PO Last administered on 09:09; Admin Dose 30 ML; Start 05/06/17 at 21:00 Nystatin (Nystatin Powder) 1 applic BID TOP Last administered on 06/13/17 08: 49; Admin Dose 1 APPLIC; Start 05/09/17 at 21:00 Collagenase (Santyl) 1 applic DAILY TOP Last administered on 06/13/17 08:49; Admin Dose 1 APPLIC; Start 05/09/17 at 15:00 Collagenase (Santyl) 1 applic PRN PRN TOP WOUND CARE Last administered on 02:33; Admin Dose 1 APPLIC; Start 05/09/17 at 14:00 Miscellaneous Information 1 ea NOTE XX ; Start 05/11/17 at 08:00 Glucose (Glutose) 15 gm Q15M PRN PO DECREASED GLUCOSE; Start 05/11/17 at 08:00 Glucose (Glutose) 22.5 gm Q15M PRN PO DECREASED GLUCOSE; Start 05/11/17 at 08: 00 Dextrose (D50w Syringe) 25 ml Q15M PRN IV DECREASED GLUCOSE Last administered on 06/10/17 09:24; Admin Dose 25 ML; Start 05/11/17 at 08:00 Dextrose (D50w Syringe) 50 ml Q15M PRN IV DECREASED GLUCOSE Last administered on 06/10/17 16:12; Admin Dose 50 ML; Start 05/11/17 at 08:00 Glucagon (Glucagen) 1 mg Q15M PRN IM DECREASED GLUCOSE Last administered on 12:10; Admin Dose 1 MG; Start 05/11/17 at 08:00 Glucose (Glutose) 15 gm Q15M PRN BUCCAL DECREASED GLUCOSE Last administered on 06/10/17 09:49; Admin Dose 15 GM; Start 05/11/17 at 08:00 Epoetin Vasyl (Epogen (Esrd)) 10,000 units MoWeFr@17 SC Last administered on 16:38; Admin Dose 10,000 UNITS; Start 05/13/17 at 17:00 IV Flush (NS 10 ml) 10 ml PRN PRN IV IV PROTOCOL; Start 05/15/17 at 17:30 Insulin Aspart NOVOLOG *MILD* ALGORI... Q4 SC Last administered on 06/01/17 21 :32; Admin Dose 1 UNIT; Start 05/26/17 at 09:00 Total Parenteral Nutrition (Tpn) 1,000 ml @ 40 mls/hr Q24H IV Last administered on 06/13/17 01:42; Admin Dose 40 MLS/HR; Start 05/27/17 at 14:00 Famotidine (Pepcid Iv) 20 mg DAILY IV Last administered on 06/13/17 08:48; Admin Dose 20 MG; Start 05/29/17 at 09:00 Hydrocortisone (Solu-Cortef) 10 mg Q8 IV Last administered on 06/13/17 06:46; Admin Dose 10 MG; Start 06/06/17 at 14:00 IV Flush 10 ml 10 ml PRN PRN IV IV PROTOCOL; Start 06/10/17 at 18:00 Dextrose (D5W) 1,000 ml @ 50 mls/hr Q20H IV Last administered on 06/12/17 14: 37; Admin Dose 50 MLS/HR; Start 06/12/17 at 13:00 SMITH RUIZ Jun 13, 2017 11:57
[2017-06-13 11:59] LABS: ABNORMAL IP MESSAGE 1; BASOPHILS % 0.1 % (0.0-2.0); EOSINOPHILS # 0.6 10^3/ul (0.0-0.5); EOSINOPHILS % 7.5 % (0.0-7.0); HEMOGLOBIN 9.8 g/dl (12.0-16.0); LYMPHOCYTES # 0.7 10^3/ul (0.8-2.9); LYMPHOCYTES % 7.8 % (15.0-51.0); MEAN CORPUSCULAR HEMOGLOBIN 29.6 pg (29.0-33.0); MEAN CORPUSCULAR HGB CONC 29.7 g/dl (32.0-37.0); MEAN CORPUSCULAR VOLUME 99.7 fl (82.0-101.0); MEAN PLATELET VOLUME 11.8 fl (7.4-10.4); MONOCYTE # 0.5 10^3/ul (0.3-0.9); MONOCYTES % 5.6 % (0.0-11.0); NEUTROPHILS % 78.7 % (39.0-77.0); PLATELET COUNT 98 10^3/UL (140-415); RED BLOOD COUNT 3.31 10^6/ul (4.20-5.40); RED CELL DISTRIBUTION WIDTH 22.5 % (11.5-14.5); WHITE BLOOD COUNT 8.6 10^3/ul (4.8-10.8)
[2017-06-13 12:01] LABS: POSITIVE DIFF @See below
--- NOTE | 2017-06-13 14:48 | PN ---
DATE: 06/13/2017 SUBJECTIVE DATA: Yesterday I spoke with the patient's son, who agreed to move toward comfort measures after a long discussion. I informed him I will transition patient back to standard care on comfort measures. No other events noted. OBJECTIVE DATA: VITAL SIGNS: Blood pressure 158/65, respirations 19, pulse 68, temperature 90.3. HEENT: Head is normocephalic. NECK: Supple. HEART: Regular rate. LUNGS: Diminished breath sounds at the base. ABDOMEN: Soft, nontender to palpation without guarding. EXTREMITIES: Negative for clubbing, cyanosis. Positive edema. DERMATOLOGIC: No rashes. MUSCULOSKELETAL: No joint effusion. NEUROLOGIC: No change in exam. MEDICATIONS: Reviewed. LABORATORY AND DIAGNOSTIC DATA: Sodium 147, potassium 3.5, BUN 56, creatinine 2.35. CBC is pending. ASSESSMENT AND PLAN: 1. Sepsis, status post shock. Etiology multifactorial. The patient is currently on pressors. Continue current antibiotic regimen. 2. Anemia. Continue to monitor H and H levels. 3. Oliguric acute kidney injury on top of chronic kidney disease (CKD), stage 4, etiology secondary to acute tubular necrosis (ATN). The patient is not a candidate for hemodialysis. Continue to monitor. 4. Hyponatremia, improved. Continue D5 water. 5. Acute encephalopathy and advanced dementia. Etiology, toxic metabolic. 6. Volume overload. Continue to monitor. Will give intermittent diuretic therapy. 7. Diabetes. Continue Accu-Cheks and sliding scale. 8. Nutrition. Patient is TPN. 9. Decubitus wound. Continue wound care. 10. Metabolic acidosis, acute kidney injury improving. 11. The patient has a gastrocutaneous fistula that is closing on its own. Will anticipate transfer back to his subacute facility on comfort measures. Dictated By: Brendan Rosas DO /junie/andrea /Document#: [id number]
--- NOTE | 2017-06-13 15:03 | CONS ---
Date/Time of Note Date/Time of Note DATE: 06/13/17 TIME: 15:02 Assessment/Plan Assessment/Plan Chief Complaint/Hosp Course SUBJECTIVE DATA: No acute changes, nonverbal and noncommunicative, comfortable on the vent, on TPN and Lipids INDWELLING: Trach, PICC line, and Collazo. PHYSICAL EXAMINATION: GENERAL: Chronically ill-appearing, elderly woman, who is nonverbal, noncommunicative, in no distress. HEENT: Head atraumatic, normocephalic. Sclerae anicteric. Buccal mucosa dry. NECK: Supple. Tracheostomy present. CHEST: Rise symmetrical. Breath sounds with bilateral scattered crackles. HEART: S1, S2. ABDOMEN: Soft, distended. Bowel sounds hypoactive. EXTREMITIES: With bilateral edema. SKIN: With generalized edema and erythema. ASSESSMENT: 1. Status post shock, multifactorial. 2. S/p Gillian albicans urinary tract infection (UTI). 3. S/p Healthcare associated pneumonia 4. G-tube malfunction/GC fistula. 5. Chronic encephalopathy. 6. Acute on chronic kidney disease. 7. Diabetes. PLAN: Remains unchanged, continue present care, f/u GI/surgical rec-s, cano cx prn DW staff Problems: Consultation Date/Type/Reason Admit Date/Time May 06, 2017 at 16:34 Initial Consult Date 05/09/17 Type of Consultation: id Referring Provider: OSMAR MONTAGUE DO Exam/Review of Systems Vital Signs Vitals Vital Signs Date Time Temp Pulse Resp B/P Pulse Ox O2 Delivery O2 Flow Rate FiO2 06/13/17 12:12 81 06/13/17 11:10 98.5 19 122/76 98 06/13/17 11:10 30 Intake and Output 06/12/17 06/12/17 06/13/17 15:00 23:00 07:00 Intake Total 770 ml 990 ml Output Total 260 ml Balance 770 ml 730 ml Results Result Diagram: 06/13/17 1108 06/13/17 0624 Results 24 hrs Laboratory Tests Test 06/12/17 16:36 06/13/17 01:39 06/13/17 05:32 06/13/17 06:24 Bedside Glucose 120 127 136 Sodium Level 147 H Potassium Level 3.5 Chloride Level 105 Carbon Dioxide Level 35 H Anion Gap 11 Blood Urea Nitrogen 56 H Creatinine 2.37 H Glucose Level 132 Calcium Level 8.7 Phosphorus Level 3.0 Magnesium Level 2.3 Test 06/13/17 08:58 06/13/17 11:08 06/13/17 12:32 Bedside Glucose 139 118 White Blood Count 8.6 Red Blood Count 3.31 L Hemoglobin 9.8 L Hematocrit 33.0 L Mean Corpuscular Volume 99.7 Mean Corpuscular Hemoglobin 29.6 Mean Corpuscular Hemoglobin Concent 29.7 L Red Cell Distribution Width 22.5 H Platelet Count 98 L Mean Platelet Volume 11.8 H Neutrophils % 78.7 H Lymphocytes % 7.8 L Monocytes % 5.6 Eosinophils % 7.5 H Basophils % 0.1 Nucleated Red Blood Cells % 0.0 Neutrophils # (Manual) 6.8 Lymphocytes # 0.7 L Monocytes # 0.5 Eosinophils # 0.6 H Basophils # 0.0 Nucleated Red Blood Cells # 0.0 Medications Medications Current Medications Bisacodyl (Dulcolax Supp) 10 mg Q48H [place] Last administered on 06/11/17 17:56; Admin Dose 10 MG; Start 05/06/17 at 17:00 Sodium Biphosphate/ Sodium Phosphate (Fleet Enema Pediatric) 118 ml Q72H PRN [place] CONSTIPATION; Start 05/06/17 at 17:00 Citric Acid/ Sodium Citrate (Bicitra) 30 ml BID PO Last administered on 09:09; Admin Dose 30 ML; Start 05/06/17 at 21:00 Nystatin (Nystatin Powder) 1 applic BID TOP Last administered on 06/13/17 08: 49; Admin Dose 1 APPLIC; Start 05/09/17 at 21:00 Collagenase (Santyl) 1 applic DAILY TOP Last administered on 06/13/17 08:49; Admin Dose 1 APPLIC; Start 05/09/17 at 15:00 Collagenase (Santyl) 1 applic PRN PRN TOP WOUND CARE Last administered on 02:33; Admin Dose 1 APPLIC; Start 05/09/17 at 14:00 Miscellaneous Information 1 ea NOTE XX ; Start 05/11/17 at 08:00 Glucose (Glutose) 15 gm Q15M PRN PO DECREASED GLUCOSE; Start 05/11/17 at 08:00 Glucose (Glutose) 22.5 gm Q15M PRN PO DECREASED GLUCOSE; Start 05/11/17 at 08: 00 Dextrose (D50w Syringe) 25 ml Q15M PRN IV DECREASED GLUCOSE Last administered on 06/10/17 09:24; Admin Dose 25 ML; Start 05/11/17 at 08:00 Dextrose (D50w Syringe) 50 ml Q15M PRN IV DECREASED GLUCOSE Last administered on 06/10/17 16:12; Admin Dose 50 ML; Start 05/11/17 at 08:00 Glucagon (Glucagen) 1 mg Q15M PRN IM DECREASED GLUCOSE Last administered on 12:10; Admin Dose 1 MG; Start 05/11/17 at 08:00 Glucose (Glutose) 15 gm Q15M PRN BUCCAL DECREASED GLUCOSE Last administered on 06/10/17 09:49; Admin Dose 15 GM; Start 05/11/17 at 08:00 Epoetin Vasyl (Epogen (Esrd)) 10,000 units MoWeFr@17 SC Last administered on 16:38; Admin Dose 10,000 UNITS; Start 05/13/17 at 17:00 IV Flush (NS 10 ml) 10 ml PRN PRN IV IV PROTOCOL; Start 05/15/17 at 17:30 Insulin Aspart NOVOLOG *MILD* ALGORI... Q4 SC Last administered on 06/01/17 21 :32; Admin Dose 1 UNIT; Start 05/26/17 at 09:00 Total Parenteral Nutrition (Tpn) 1,000 ml @ 40 mls/hr Q24H IV Last administered on 06/13/17 01:42; Admin Dose 40 MLS/HR; Start 05/27/17 at 14:00 Famotidine (Pepcid Iv) 20 mg DAILY IV Last administered on 06/13/17 08:48; Admin Dose 20 MG; Start 05/29/17 at 09:00 Hydrocortisone (Solu-Cortef) 10 mg Q8 IV Last administered on 06/13/17 14:26; Admin Dose 10 MG; Start 06/06/17 at 14:00 IV Flush 10 ml 10 ml PRN PRN IV IV PROTOCOL; Start 06/10/17 at 18:00 Dextrose (D5W) 1,000 ml @ 50 mls/hr Q20H IV Last administered on 06/12/17 14: 37; Admin Dose 50 MLS/HR; Start 06/12/17 at 13:00 DOROTHY CORONADO NP Jun 13, 2017 15:03
[2017-06-13] MEDS: BISACODYL 10 MG SUPP PR SCH (17:00)
--- NOTE | 2017-06-13 20:58 | CONS ---
Date/Time of Note Date/Time of Note DATE: 06/13/17 TIME: 20:56 Assessment/Plan Assessment/Plan Chief Complaint/Hosp Course This 69-year-old female with a history of CVA vent dependent respiratory failure , was brought to the emergency room for the dislodgment of the GJ tube. Patient is nonverbal and no information can be obtained. No GI bleeding no chest pain no shortness of breath. Problems: Additional Assessment/Plan Additional Assessment/Plan 1. Dislodged GJ tube accidentally 2. Vent dependent respiratory failure 3. Chronic encephalopathy 4. Renal failure 5. Peripheral vascular disease 6. Anemia, secondary to chronic disease no evidence of active bleeding 7. 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 Hypotension, corrected patient is off dopamine for more than 24 hours 9. Decubitus ulcer 10. Workup for adrenal insufficiency, patient is on steroid now and off dopamine 11. Status post sepsis Plan fistula is closing discontinue intralipid Continue present care Consultation Date/Type/Reason Admit Date/Time May 06, 2017 at 16:34 Type of Consultation: id Referring Provider: OSMAR MONTAGUE DO 24 HR Interval Summary Subjective hx not possible: pt non-verbal, pt critical Exam/Review of Systems Vital Signs Vitals Vital Signs Date Time Temp Pulse Resp B/P Pulse Ox O2 Delivery O2 Flow Rate FiO2 06/13/17 20:26 83 06/13/17 19:55 98.1 20 146/76 96 06/13/17 17:38 30 Intake and Output 06/12/17 06/12/17 06/13/17 15:00 23:00 07:00 Intake Total 770 ml 990 ml Output Total 260 ml Balance 770 ml 730 ml Exam Respiratory: clear to auscultation, normal air movement, other (Patient is on vent) Cardiovascular: nl pulses, regular rate and rhythm Gastrointestinal: nl liver, spleen, non-tender, other (Greenish drainage through the gastrocutaneous fistula. Opening is closing slowly), soft Extremities: normal pulses Neurological: unresponsive Results Result Diagram: 06/13/17 1108 06/13/17 0624 Results 24 hrs Laboratory Tests Test 06/13/17 01:39 06/13/17 05:32 06/13/17 06:24 06/13/17 08:58 Bedside Glucose 127 136 139 Sodium Level 147 H Potassium Level 3.5 Chloride Level 105 Carbon Dioxide Level 35 H Anion Gap 11 Blood Urea Nitrogen 56 H Creatinine 2.37 H Glucose Level 132 Calcium Level 8.7 Phosphorus Level 3.0 Magnesium Level 2.3 Test 06/13/17 11:08 06/13/17 12:32 06/13/17 16:39 White Blood Count 8.6 Red Blood Count 3.31 L Hemoglobin 9.8 L Hematocrit 33.0 L Mean Corpuscular Volume 99.7 Mean Corpuscular Hemoglobin 29.6 Mean Corpuscular Hemoglobin Concent 29.7 L Red Cell Distribution Width 22.5 H Platelet Count 98 L Mean Platelet Volume 11.8 H Neutrophils % 78.7 H Lymphocytes % 7.8 L Monocytes % 5.6 Eosinophils % 7.5 H Basophils % 0.1 Nucleated Red Blood Cells % 0.0 Neutrophils # (Manual) 6.8 Lymphocytes # 0.7 L Monocytes # 0.5 Eosinophils # 0.6 H Basophils # 0.0 Nucleated Red Blood Cells # 0.0 Bedside Glucose 118 126 Medications Medications Current Medications Bisacodyl (Dulcolax Supp) 10 mg Q48H [place] Last administered on 06/11/17 17:56; Admin Dose 10 MG; Start 05/06/17 at 17:00 Sodium Biphosphate/ Sodium Phosphate (Fleet Enema Pediatric) 118 ml Q72H PRN [place] CONSTIPATION; Start 05/06/17 at 17:00 Citric Acid/ Sodium Citrate (Bicitra) 30 ml BID PO Last administered on 09:09; Admin Dose 30 ML; Start 05/06/17 at 21:00 Nystatin (Nystatin Powder) 1 applic BID TOP Last administered on 06/13/17 08: 49; Admin Dose 1 APPLIC; Start 05/09/17 at 21:00 Collagenase (Santyl) 1 applic DAILY TOP Last administered on 06/13/17 08:49; Admin Dose 1 APPLIC; Start 05/09/17 at 15:00 Collagenase (Santyl) 1 applic PRN PRN TOP WOUND CARE Last administered on 02:33; Admin Dose 1 APPLIC; Start 05/09/17 at 14:00 Miscellaneous Information 1 ea NOTE XX ; Start 05/11/17 at 08:00 Glucose (Glutose) 15 gm Q15M PRN PO DECREASED GLUCOSE; Start 05/11/17 at 08:00 Glucose (Glutose) 22.5 gm Q15M PRN PO DECREASED GLUCOSE; Start 05/11/17 at 08: 00 Dextrose (D50w Syringe) 25 ml Q15M PRN IV DECREASED GLUCOSE Last administered on 06/10/17 09:24; Admin Dose 25 ML; Start 05/11/17 at 08:00 Dextrose (D50w Syringe) 50 ml Q15M PRN IV DECREASED GLUCOSE Last administered on 06/10/17 16:12; Admin Dose 50 ML; Start 05/11/17 at 08:00 Glucagon (Glucagen) 1 mg Q15M PRN IM DECREASED GLUCOSE Last administered on 12:10; Admin Dose 1 MG; Start 05/11/17 at 08:00 Glucose (Glutose) 15 gm Q15M PRN BUCCAL DECREASED GLUCOSE Last administered on 06/10/17 09:49; Admin Dose 15 GM; Start 05/11/17 at 08:00 Epoetin Vasyl (Epogen (Esrd)) 10,000 units MoWeFr@17 SC Last administered on 16:38; Admin Dose 10,000 UNITS; Start 05/13/17 at 17:00 IV Flush (NS 10 ml) 10 ml PRN PRN IV IV PROTOCOL; Start 05/15/17 at 17:30 Insulin Aspart NOVOLOG *MILD* ALGORI... Q4 SC Last administered on 06/01/17 21 :32; Admin Dose 1 UNIT; Start 05/26/17 at 09:00 Total Parenteral Nutrition (Tpn) 1,000 ml @ 40 mls/hr Q24H IV Last administered on 06/13/17 01:42; Admin Dose 40 MLS/HR; Start 05/27/17 at 14:00 Famotidine (Pepcid Iv) 20 mg DAILY IV Last administered on 06/13/17 08:48; Admin Dose 20 MG; Start 05/29/17 at 09:00 Hydrocortisone (Solu-Cortef) 10 mg Q8 IV Last administered on 06/13/17 14:26; Admin Dose 10 MG; Start 06/06/17 at 14:00 IV Flush 10 ml 10 ml PRN PRN IV IV PROTOCOL; Start 06/10/17 at 18:00 Dextrose (D5W) 1,000 ml @ 50 mls/hr Q20H IV Last administered on 06/12/17t 14: 37; Admin Dose 50 MLS/HR; Start 06/12/17 at 13:00 SYLWIA SY MD Jun 13, 2017 20:58
--- NOTE | 2017-06-13 23:19 | PN ---
Date/Time of Note Date/Time of Note DATE: 06/13/17 TIME: 23:13 Assessment/Plan Lines/Catheters IV Catheter Type (from Nrs): PICC Line Collazo in Place (from Nrs): Yes Assessment/Plan Chief Complaint/Hosp Course 1. G-tube dislodgement: replaced with gjtube by GI, continued yellow drainage peristomal; gj tube replacement attempt-unable due to too large of an opening; Now chemical code; currently on tpn; bleeding from [facility] -hospice/palliative is the best option for this patient- patient being transitioned to comfort care 2. Septic shock: multifactorial: 2/2: pneumonia + cellulitis + wounds; persistent, off pressors again, episodes of hypothermia and hypoglycemia -supportive 3. Respiratory failure with trach: PNA with pulm edema; comfortable on vent -pulmonary toilet -supportive 4.STARLA with CKD; anuric currently -supportive 5. Normocytic anemia: previous coffee ground drainage peristoma;no acute bleed noted; s/p transfusion -monitor and transfuse as needed 6. CHF -medical management 7. Diabetes with hypoglycemia -medical management 8. Acute encephalopathy with history of advanced dementia; unchanged neurologically -supportive 9. Decubitus wound. -continue wound care. 10. Peristomal cellulitis 2/2 #1; +pseudomonas -local care 11. Pancytopenia -supportive 12. Hypothermia: increasing coagulopathy with noted [facility] bleed -hemostasis with chemical cautery by Dr. Blackburn Patient seen and examined in collaboration with Dr. Meliton Blackburn. Thank you. Problems: Subjective 24 Hr Interval Summary No acute changes neurologically. Non responsive. Comfortable on vent, non verbal indicators of pain not present. No vomiting, vomiting, diarrhea. No active bleed from [facility]. Exam/Review of Systems Vital Signs Vitals Vital Signs Date Time Temp Pulse Resp B/P Pulse Ox O2 Delivery O2 Flow Rate FiO2 06/13/17 22:46 76 16 98 30 06/13/17 19:55 98.1 146/76 Intake and Output 06/12/17 06/12/17 06/13/17 15:00 23:00 07:00 Intake Total 770 ml 990 ml Output Total 260 ml Balance 770 ml 730 ml Exam Free Text/Dictation Constitutional: non-verbal, awake, nonresponsive, ill-appearing. No oriented Psych: withdraws from pain Head: atraumatic, normocephalic Eyes: nl sclera ENMT: mucosa pink and moist, missing teeth Neck: non-tender, other (trach), supple Respiratory: diminished Cardiovascular: edema Gastrointestinal: distended (mod), other (stoma without overt bleeding), soft, nontender Musculoskeletal: No muscle tone Extremities: edema worsened Neurological: No nl mental status, No nl speech Skin: other (abdominal/peristomal/breast fold redness improved), cool skin Results Result Diagram: 06/13/17 1108 06/13/17 0624 SHADI CALDERON NP Jun 13, 2017 23:18
[2017-06-14] VITALS (22 sets, daily range): BP systolic 124–178; BP diastolic 58–75; PULSE 71–81; RESP 16–20
[2017-06-14] MEDS: INSULIN ASPART [NOVOLOG] 3 ML PEN SC SCH ×6 (01:00→20:47)
[2017-06-14] MEDS: DEXTROSE 5% 1,000 ML IV SCH (04:07)
[2017-06-14] MEDS: TPN 1,000 ML IV SCH (04:15)
[2017-06-14] MEDS: HYDROCORTISONE 100 MG INJ IV SCH ×3 (06:13→21:04)
[2017-06-14 07:00] LABS: ABNORMAL IP MESSAGE 1; BASOPHILS % 0.1 % (0.0-2.0); EOSINOPHILS # 0.4 10^3/ul (0.0-0.5); EOSINOPHILS % 5.9 % (0.0-7.0); HEMATOCRIT 32.1 % (37.0-47.0); HEMOGLOBIN 9.5 g/dl (12.0-16.0); LYMPHOCYTES # 0.3 10^3/ul (0.8-2.9); LYMPHOCYTES % 4.7 % (15.0-51.0); MEAN CORPUSCULAR HEMOGLOBIN 29.2 pg (29.0-33.0); MEAN CORPUSCULAR HGB CONC 29.6 g/dl (32.0-37.0); MEAN CORPUSCULAR VOLUME 98.8 fl (82.0-101.0); MEAN PLATELET VOLUME 11.8 fl (7.4-10.4); MONOCYTE # 0.3 10^3/ul (0.3-0.9); MONOCYTES % 4.3 % (0.0-11.0); NEUTROPHILS % 84.6 % (39.0-77.0); RED BLOOD COUNT 3.25 10^6/ul (4.20-5.40); RED CELL DISTRIBUTION WIDTH 22.7 % (11.5-14.5); WHITE BLOOD COUNT 7.3 10^3/ul (4.8-10.8)
[2017-06-14 07:13] LABS: POSITIVE DIFF @See below
[2017-06-14 07:14] LABS: PLATELET COUNT 80 10^3/UL (140-415)
[2017-06-14 07:29] LABS: CALCIUM 8.8 mg/dl (8.4-10.2); CREATININE 2.42 mg/dl (0.44-1.00); MAGNESIUM 2.4 mg/dl (1.7-2.5); POTASSIUM 3.3 mmol/L (3.5-5.1)
[2017-06-14] MEDS ORDERED: POTASSIUM CHLORIDE 250 ML IVPB ONE (08:00)
[2017-06-14] MEDS: COLLAGENASE 30 GM TUBE TOP SCH (09:00)
[2017-06-14] MEDS: CITRIC ACID/NA CITRATE 30 ML CUP PO SCH ×2 (09:00→20:47)
[2017-06-14] MEDS: NYSTATIN 30 GM POWDER BTL TOP SCH ×2 (09:04→20:48)
[2017-06-14] MEDS: FUROSEMIDE 40 MG INJ IV SCH (09:11)
[2017-06-14] MEDS: FAMOTIDINE 20 MG INJ IV SCH (09:11)
--- NOTE | 2017-06-14 09:12 | PN ---
DATE: 06/14/2017 SUBJECTIVE DATA: The patient had no acute events overnight. No hemoptysis, hematemesis, hematochezia. OBJECTIVE DATA: VITAL SIGNS: Blood pressure is 178/75, respirations 19, pulse 60, temperature 98.5. HEENT: Head is normocephalic. NECK: Shows trach. HEART: Regular rate. LUNGS: Show diminished breath sounds at the base. ABDOMEN: Soft, nontender to palpation. No rebound or guarding. Positive gastrocutaneous fistula noted. EXTREMITIES: Negative for clubbing, cyanosis. Positive edema. DERMATOLOGIC: Clean. No rashes. MUSCULOSKELETAL: No joint effusion. There are noted wounds, no change, and noted contractures. NEUROLOGIC: No change in exam. LABORATORY AND DIAGNOSTIC DATA: Shows sodium 153, potassium 3.3, chloride 103, BUN 56, creatinine 2.42. White count 7.3, hemoglobin 9.5, crit 32.1, platelet count is 80. ASSESSMENT AND PLAN: 1. Sepsis, status post shock. Etiology is multifactorial. The patient is currently on antibiotic therapy, completing course. 2. Anemia. Continue to monitor H and H levels. Continue Epogen. 3. Nonoliguric acute kidney injury on top of chronic kidney disease stage 4. Etiology secondary to acute tubular necrosis. The patient's renal function has been fluctuating but overall stable. The patient is not a dialysis candidate. 4. Hypernatremia. Continue D5 water. 5. Volume overload secondary to acute kidney injury. We will continue intermittent diuretic therapy. 6. Acute encephalopathy and advanced dementia. Etiology is toxic metabolic. 7. Diabetes. Continue Accu-Chek, insulin sliding scale. 8. Nutrition. Continue total parenteral nutrition. 9. Gastrocutaneous fistula, slowly healing. Continue to monitor. 10. Metabolic acidosis, improving. 11. Decubitus wound. Continue wound care. 12. Thrombocytopenia. We will continue to monitor closely. Etiology is unclear, possibly medication related. Please note, I spoke with the patient's son, anticipate transfer back to subacute facility on palliative/comfort measures once bed is available. Dictated By: Brendan Rosas DO /junie/rajesh /Document#: [id number]
--- NOTE | 2017-06-14 09:44 | CONS ---
Date/Time of Note Date/Time of Note DATE: 06/14/17 TIME: 09:41 Assessment/Plan Assessment/Plan Additional Assessment/Plan Ventilator settings AC of 16, tidal volume 500, PEEP of 5, 30% FiO2. Assessment and recommendations; 1. Patient admitted with pneumonia and sepsis status post treatment now. 2. Chronic respiratory failure, which is ventilator dependent. 3. Advanced dementia. 4. Chronic renal insufficiency. 5. Hyponatremia. 6. Thrombocytopenia. Continue current supportive care. Consider discharge to [facility]. Overall prognosis remains extremely poor. Consultation Date/Type/Reason Admit Date/Time May 06, 2017 at 16:34 Initial Consult Date 05/10/17 Type of Consultation: Pulmonary/critical care Referring Provider: OSMAR MONTAGUE DO 24 HR Interval Summary Free Text/Dictation Patient's condition remains unchanged. Remains profoundly unresponsive. Also remains chronically ventilator dependent. Patient has remained hemodynamically stable though. General exam; elderly woman, on ventilator via tracheostomy, currently in no distress. Unresponsive. Exam/Review of Systems Vital Signs Vitals Vital Signs Date Time Temp Pulse Resp B/P Pulse Ox O2 Delivery O2 Flow Rate FiO2 06/14/17 08:15 81 06/14/17 06:51 98.5 19 178/75 98 06/14/17 05:30 30 Intake and Output 06/13/17 06/13/17 06/14/17 15:00 23:00 07:00 Intake Total 990 ml Output Total 600 ml Balance 390 ml Exam HEENT exam; supple neck, tracheostomy in place. No neck masses. Pupils are small bilaterally. Chest exam; diminished but clear breath sounds. S1-S2 audible, no murmurs. Regular rhythm. Abdomen exam; soft, nondistended. G-tube in place. Bowel sounds audible. Extremity exam; trace peripheral edema. NURSE GENERAL DUTY exam; patient remains profoundly unresponsive. Results Result Diagram: 06/14/17 0610 06/14/17 0610 Results 24 hrs Laboratory Tests Test 06/13/17 11:08 06/13/17 12:32 06/13/17 16:39 06/13/17 22:26 White Blood Count 8.6 Red Blood Count 3.31 L Hemoglobin 9.8 L Hematocrit 33.0 L Mean Corpuscular Volume 99.7 Mean Corpuscular Hemoglobin 29.6 Mean Corpuscular Hemoglobin Concent 29.7 L Red Cell Distribution Width 22.5 H Platelet Count 98 L Mean Platelet Volume 11.8 H Neutrophils % 78.7 H Lymphocytes % 7.8 L Monocytes % 5.6 Eosinophils % 7.5 H Basophils % 0.1 Nucleated Red Blood Cells % 0.0 Neutrophils # (Manual) 6.8 Lymphocytes # 0.7 L Monocytes # 0.5 Eosinophils # 0.6 H Basophils # 0.0 Nucleated Red Blood Cells # 0.0 Bedside Glucose 118 126 128 Test 06/14/17 01:34 06/14/17 05:32 06/14/17 06:10 06/14/17 09:10 Bedside Glucose 109 117 117 White Blood Count 7.3 Red Blood Count 3.25 L Hemoglobin 9.5 L Hematocrit 32.1 L Mean Corpuscular Volume 98.8 Mean Corpuscular Hemoglobin 29.2 Mean Corpuscular Hemoglobin Concent 29.6 L Red Cell Distribution Width 22.7 H Platelet Count 80 L Mean Platelet Volume 11.8 H Neutrophils % 84.6 H Lymphocytes % 4.7 L Monocytes % 4.3 Eosinophils % 5.9 Basophils % 0.1 Nucleated Red Blood Cells % 0.0 Neutrophils # (Manual) 6.2 Lymphocytes # 0.3 L Monocytes # 0.3 Eosinophils # 0.4 Basophils # 0.0 Nucleated Red Blood Cells # 0.0 Sodium Level 153 H Potassium Level 3.3 L Chloride Level 103 Carbon Dioxide Level 38 H Anion Gap 15 Blood Urea Nitrogen 56 H Creatinine 2.42 H Glucose Level 113 Calcium Level 8.8 Phosphorus Level 3.0 Magnesium Level 2.4 Medications Medications Current Medications Bisacodyl (Dulcolax Supp) 10 mg Q48H NM Last administered on 06/11/17 17:56; Admin Dose 10 MG; Start 05/06/17 at 17:00 Sodium Biphosphate/ Sodium Phosphate (Fleet Enema Pediatric) 118 ml Q72H PRN [place] CONSTIPATION; Start 05/06/17 at 17:00 Citric Acid/ Sodium Citrate (Bicitra) 30 ml BID PO Last administered on 09:09; Admin Dose 30 ML; Start 05/06/17 at 21:00 Nystatin (Nystatin Powder) 1 applic BID TOP Last administered on 06/14/17 09: 04; Admin Dose 1 APPLIC; Start 05/09/17 at 21:00 Collagenase (Santyl) 1 applic DAILY TOP Last administered on 06/13/17 08:49; Admin Dose 1 APPLIC; Start 05/09/17 at 15:00 Collagenase (Santyl) 1 applic PRN PRN TOP WOUND CARE Last administered on 02:33; Admin Dose 1 APPLIC; Start 05/09/17 at 14:00 Miscellaneous Information 1 ea NOTE XX ; Start 05/11/17 at 08:00 Glucose (Glutose) 15 gm Q15M PRN PO DECREASED GLUCOSE; Start 05/11/17 at 08:00 Glucose (Glutose) 22.5 gm Q15M PRN PO DECREASED GLUCOSE; Start 05/11/17 at 08: 00 Dextrose (D50w Syringe) 25 ml Q15M PRN IV DECREASED GLUCOSE Last administered on 06/10/17 09:24; Admin Dose 25 ML; Start 05/11/17 at 08:00 Dextrose (D50w Syringe) 50 ml Q15M PRN IV DECREASED GLUCOSE Last administered on 06/10/17 16:12; Admin Dose 50 ML; Start 05/11/17 at 08:00 Glucagon (Glucagen) 1 mg Q15M PRN IM DECREASED GLUCOSE Last administered on 12:10; Admin Dose 1 MG; Start 05/11/17 at 08:00 Glucose (Glutose) 15 gm Q15M PRN BUCCAL DECREASED GLUCOSE Last administered on 06/10/17 09:49; Admin Dose 15 GM; Start 05/11/17 at 08:00 Epoetin Vasyl (Epogen (Esrd)) 10,000 units MoWeFr@17 SC Last administered on 16:38; Admin Dose 10,000 UNITS; Start 05/13/17 at 17:00 IV Flush (NS 10 ml) 10 ml PRN PRN IV IV PROTOCOL; Start 05/15/17 at 17:30 Insulin Aspart NOVOLOG *MILD* ALGORI... Q4 SC Last administered on 06/01/17 21 :32; Admin Dose 1 UNIT; Start 05/26/17 at 09:00 Total Parenteral Nutrition (Tpn) 1,000 ml @ 40 mls/hr Q24H IV Last administered on 06/14/17 04:15; Admin Dose 40 MLS/HR; Start 05/27/17 at 14:00 Famotidine (Pepcid Iv) 20 mg DAILY IV Last administered on 06/14/17 09:11; Admin Dose 20 MG; Start 05/29/17 at 09:00 Hydrocortisone (Solu-Cortef) 10 mg Q8 IV Last administered on 06/14/17 06:13; Admin Dose 10 MG; Start 06/06/17 at 14:00 IV Flush 10 ml 10 ml PRN PRN IV IV PROTOCOL; Start 06/10/17 at 18:00 Dextrose 1,000 ml @ 50 mls/hr Q20H IV Last administered on 06/14/17 04:07; Admin Dose 50 MLS/HR; Start 06/12/17 at 13:00 Potassium Chloride (KCl 40 MEQ/250 ML NS) 250 ml @ 62.5 mls/hr ONCE ONCE IVPB ; Start 06/14/17 at 08:00; Stop 06/14/17 at 11:59 Furosemide (Lasix) 40 mg DAILY IV Last administered on 06/14/17 09:11; Admin Dose 40 MG; Start 06/14/17 at 09:00 SMITH RUIZ Jun 14, 2017 09:44
--- NOTE | 2017-06-14 11:05 | CONS ---
Date/Time of Note Date/Time of Note DATE: 06/14/17 TIME: 11:03 Assessment/Plan Assessment/Plan Chief Complaint/Hosp Course This 69-year-old female with a history of CVA vent dependent respiratory failure , was brought to the emergency room for the dislodgment of the GJ tube. Patient is nonverbal and no information can be obtained. No GI bleeding no chest pain no shortness of breath. Problems: Additional Assessment/Plan This 69-year-old female with a history of CVA vent dependent respiratory failure , was brought to the emergency room for the dislodgment of the GJ tube. Patient is nonverbal and no information can be obtained. No GI bleeding no chest pain no shortness of breath. Problems: Additional Assessment/Plan Additional Assessment/Plan 1. Dislodged GJ tube accidentally 2. Vent dependent respiratory failure 3. Chronic encephalopathy 4. Renal failure 5. Peripheral vascular disease 6. Anemia, secondary to chronic disease no evidence of active bleeding 7. 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 Hypotension, corrected patient is off dopamine for more than 24 hours 9. Decubitus ulcer 10. Workup for adrenal insufficiency, patient is on steroid now and off dopamine 11. Status post sepsis 12. Morbid obesity, patient has definitely gained a lot of weight around the abdominal girth Plan fistula is closing discontinue intralipid Reduce TPN to 40 cc per Discontinue D10 Hopefully we will be able to feed her through the NG tube within the next few days when the stoma is completely closed. Continue present care Consultation Date/Type/Reason Admit Date/Time May 06, 2017 at 16:34 Type of Consultation: Pulmonary/critical care Referring Provider: OSMAR MONTAGUE DO 24 HR Interval Summary Subjective hx not possible: pt non-verbal Exam/Review of Systems Vital Signs Vitals Vital Signs Date Time Temp Pulse Resp B/P Pulse Ox O2 Delivery O2 Flow Rate FiO2 06/14/17 11:01 98.5 72 19 128/60 98 06/14/17 05:30 30 Intake and Output 06/13/17 06/13/17 06/14/17 14:59 22:59 06:59 Intake Total 990 ml Output Total 600 ml Balance 390 ml Exam Cardiovascular: nl pulses, regular rate and rhythm Gastrointestinal: nl liver, spleen, non-tender (G-tube site opening almost completely closed. She definitely has gained significant weight), soft Extremities: normal pulses Neurological: unresponsive Results Result Diagram: 06/14/17 0610 06/14/17 0610 Results 24 hrs Laboratory Tests Test 06/13/17 11:08 06/13/17 12:32 06/13/17 16:39 06/13/17 22:26 White Blood Count 8.6 Red Blood Count 3.31 L Hemoglobin 9.8 L Hematocrit 33.0 L Mean Corpuscular Volume 99.7 Mean Corpuscular Hemoglobin 29.6 Mean Corpuscular Hemoglobin Concent 29.7 L Red Cell Distribution Width 22.5 H Platelet Count 98 L Mean Platelet Volume 11.8 H Neutrophils % 78.7 H Lymphocytes % 7.8 L Monocytes % 5.6 Eosinophils % 7.5 H Basophils % 0.1 Nucleated Red Blood Cells % 0.0 Neutrophils # (Manual) 6.8 Lymphocytes # 0.7 L Monocytes # 0.5 Eosinophils # 0.6 H Basophils # 0.0 Nucleated Red Blood Cells # 0.0 Bedside Glucose 118 126 128 Test 06/14/17 01:34 06/14/17 05:32 06/14/17 06:10 06/14/17 09:10 Bedside Glucose 109 117 117 White Blood Count 7.3 Red Blood Count 3.25 L Hemoglobin 9.5 L Hematocrit 32.1 L Mean Corpuscular Volume 98.8 Mean Corpuscular Hemoglobin 29.2 Mean Corpuscular Hemoglobin Concent 29.6 L Red Cell Distribution Width 22.7 H Platelet Count 80 L Mean Platelet Volume 11.8 H Neutrophils % 84.6 H Lymphocytes % 4.7 L Monocytes % 4.3 Eosinophils % 5.9 Basophils % 0.1 Nucleated Red Blood Cells % 0.0 Neutrophils # (Manual) 6.2 Lymphocytes # 0.3 L Monocytes # 0.3 Eosinophils # 0.4 Basophils # 0.0 Nucleated Red Blood Cells # 0.0 Sodium Level 153 H Potassium Level 3.3 L Chloride Level 103 Carbon Dioxide Level 38 H Anion Gap 15 Blood Urea Nitrogen 56 H Creatinine 2.42 H Glucose Level 113 Calcium Level 8.8 Phosphorus Level 3.0 Magnesium Level 2.4 Medications Medications Current Medications Bisacodyl (Dulcolax Supp) 10 mg Q48H GA Last administered on 06/11/17t 17:56; Admin Dose 10 MG; Start 05/06/17 at 17:00 Sodium Biphosphate/ Sodium Phosphate (Fleet Enema Pediatric) 118 ml Q72H PRN [place] CONSTIPATION; Start 05/06/17 at 17:00 Citric Acid/ Sodium Citrate (Bicitra) 30 ml BID PO Last administered on 09:09; Admin Dose 30 ML; Start 05/06/17 at 21:00 Nystatin (Nystatin Powder) 1 applic BID TOP Last administered on 06/14/17 09: 04; Admin Dose 1 APPLIC; Start 05/09/17 at 21:00 Collagenase (Santyl) 1 applic DAILY TOP Last administered on 06/13/17 08:49; Admin Dose 1 APPLIC; Start 05/09/17 at 15:00 Collagenase (Santyl) 1 applic PRN PRN TOP WOUND CARE Last administered on 02:33; Admin Dose 1 APPLIC; Start 05/09/17 at 14:00 Miscellaneous Information 1 ea NOTE XX ; Start 05/11/17 at 08:00 Glucose (Glutose) 15 gm Q15M PRN PO DECREASED GLUCOSE; Start 05/11/17 at 08:00 Glucose (Glutose) 22.5 gm Q15M PRN PO DECREASED GLUCOSE; Start 05/11/17 at 08: 00 Dextrose (D50w Syringe) 25 ml Q15M PRN IV DECREASED GLUCOSE Last administered on 06/10/17 09:24; Admin Dose 25 ML; Start 05/11/17 at 08:00 Dextrose (D50w Syringe) 50 ml Q15M PRN IV DECREASED GLUCOSE Last administered on 06/10/17 16:12; Admin Dose 50 ML; Start 05/11/17 at 08:00 Glucagon (Glucagen) 1 mg Q15M PRN IM DECREASED GLUCOSE Last administered on 12:10; Admin Dose 1 MG; Start 05/11/17 at 08:00 Glucose (Glutose) 15 gm Q15M PRN BUCCAL DECREASED GLUCOSE Last administered on 06/10/17 09:49; Admin Dose 15 GM; Start 05/11/17 at 08:00 Epoetin Vasyl (Epogen (Esrd)) 10,000 units MoWeFr@17 SC Last administered on 16:38; Admin Dose 10,000 UNITS; Start 05/13/17 at 17:00 IV Flush (NS 10 ml) 10 ml PRN PRN IV IV PROTOCOL; Start 05/15/17 at 17:30 Insulin Aspart NOVOLOG *MILD* ALGORI... Q4 SC Last administered on 06/01/17 21 :32; Admin Dose 1 UNIT; Start 05/26/17 at 09:00 Total Parenteral Nutrition (Tpn) 1,000 ml @ 40 mls/hr Q24H IV Last administered on 06/14/17 04:15; Admin Dose 40 MLS/HR; Start 05/27/17 at 14:00 Famotidine (Pepcid Iv) 20 mg DAILY IV Last administered on 06/14/17 09:11; Admin Dose 20 MG; Start 05/29/17 at 09:00 Hydrocortisone (Solu-Cortef) 10 mg Q8 IV Last administered on 06/14/17 06:13; Admin Dose 10 MG; Start 06/06/17 at 14:00 IV Flush 10 ml 10 ml PRN PRN IV IV PROTOCOL; Start 06/10/17 at 18:00 Potassium Chloride (KCl 40 MEQ/250 ML NS) 250 ml @ 62.5 mls/hr ONCE ONCE IVPB Last administered on 06/14/17 10:37; Admin Dose 62.5 MLS/HR; Start 06/14/17 at 08:00; Stop 06/14/17 at 11:59 Furosemide (Lasix) 40 mg DAILY IV Last administered on 06/14/17 09:11; Admin Dose 40 MG; Start 06/14/17 at 09:00 SYLWIA SY MD Jun 14, 2017 11:04
--- NOTE | 2017-06-14 12:41 | PN ---
Date/Time of Note Date/Time of Note DATE: 06/14/17 TIME: 11:49 Assessment/Plan Lines/Catheters IV Catheter Type (from Nrs): PICC Line Collazo in Place (from Nrs): Yes Assessment/Plan Chief Complaint/Hosp Course 1. G-tube dislodgement: replaced with gjtube by GI, continued yellow drainage peristomal; gj tube replacement attempt-unable due to too large of an opening; Now chemical code; currently on tpn; bleeding from GCF -hospice/palliative is the best option for this patient- patient being transitioned to comfort care 2. Septic shock: multifactorial: 2/2: pneumonia + cellulitis + wounds; persistent, off pressors again, episodes of hypothermia and hypoglycemia -supportive 3. Respiratory failure with trach: PNA with pulm edema; comfortable on vent -pulmonary toilet -supportive 4.STARLA with CKD; anuric currently -supportive 5. Normocytic anemia: previous coffee ground drainage peristoma;no acute bleed noted; s/p transfusion -monitor and transfuse as needed 6. CHF -medical management 7. Diabetes with hypoglycemia -medical management 8. Acute encephalopathy with history of advanced dementia; unchanged neurologically -supportive 9. Decubitus wound. -continue wound care. 10. Peristomal cellulitis 2/2 #1; +pseudomonas -local care 11. Pancytopenia -supportive 12. Hypothermia: increasing coagulopathy with noted GCF bleed -hemostasis with chemical cautery by Dr. Blackburn Patient seen and examined in collaboration with Dr. Meliton Blackburn. Thank you. Problems: Exam/Review of Systems Vital Signs Vitals Vital Signs Date Time Temp Pulse Resp B/P Pulse Ox O2 Delivery O2 Flow Rate FiO2 06/14/17 11:01 98.5 72 19 128/60 98 06/14/17 05:30 30 Intake and Output 06/13/17 06/13/17 06/14/17 15:00 23:00 07:00 Intake Total 990 ml Output Total 600 ml Balance 390 ml Results Result Diagram: 06/14/17 0610 06/14/17 0610 SHADI CALDERON NP Jun 14, 2017 11:59
--- NOTE | 2017-06-14 14:47 | CONS ---
Date/Time of Note Date/Time of Note DATE: 06/14/17 TIME: 14:46 Consult Date/Type/Reason Admit Date/Time May 06, 2017 at 16:34 Initial Consult Date 05/22/17 Type of Consultation: CARDIOLOGY Ordering Provider: OSMAR MONTAGUE DO Subjective CARDIOLOGY FOLLOW UP NOTE: Discussed with staff and rhythm was reviewed. Pt remains in NSR with frequent PAC and P afib. pt remains NONVERBAL ON Vent pt is on TELE now OBJECTIVE: General: no acute distress. s/p trach on vent. HEENT: NC/AT. NECK: NO JVD. no stridor. S/P trach on vent CV: RRR . systolic murmur; no gallop or rubs. PULM: no wheezing anteriorly GI: SOFT, NT, ND, no rebound or guarding s/p dressing at the site of previous G tube Extremity: + B/L LE and UE edema. no clubbing. neuro: opens her eyes to painful stimuli. does not follow commands Psych: calm rectal: deferred Objective Vital Signs Date Time Temp Pulse Resp B/P Pulse Ox O2 Delivery O2 Flow Rate FiO2 06/14/17 12:10 80 06/14/17 11:01 98.5 19 128/60 98 06/14/17 08:00 30 Intake and Output 06/13/17 06/13/17 06/14/17 15:00 23:00 07:00 Intake Total 990 ml Output Total 600 ml Balance 390 ml Results/Medications Result Diagram: 06/14/17 0610 06/14/17 0610 Results 24 hrs Laboratory Tests Test 06/13/17 16:39 06/13/17 22:26 06/14/17 01:34 06/14/17 05:32 Bedside Glucose 126 128 109 117 Test 06/14/17 06:10 06/14/17 09:10 06/14/17 12:16 White Blood Count 7.3 Red Blood Count 3.25 L Hemoglobin 9.5 L Hematocrit 32.1 L Mean Corpuscular Volume 98.8 Mean Corpuscular Hemoglobin 29.2 Mean Corpuscular Hemoglobin Concent 29.6 L Red Cell Distribution Width 22.7 H Platelet Count 80 L Mean Platelet Volume 11.8 H Neutrophils % 84.6 H Lymphocytes % 4.7 L Monocytes % 4.3 Eosinophils % 5.9 Basophils % 0.1 Nucleated Red Blood Cells % 0.0 Neutrophils # (Manual) 6.2 Lymphocytes # 0.3 L Monocytes # 0.3 Eosinophils # 0.4 Basophils # 0.0 Nucleated Red Blood Cells # 0.0 Sodium Level 153 H Potassium Level 3.3 L Chloride Level 103 Carbon Dioxide Level 38 H Anion Gap 15 Blood Urea Nitrogen 56 H Creatinine 2.42 H Glucose Level 113 Calcium Level 8.8 Phosphorus Level 3.0 Magnesium Level 2.4 Bedside Glucose 117 102 Medications Current Medications Bisacodyl (Dulcolax Supp) [address] Last administered on 06/11/17 17:56; Admin Dose 10 MG; Start 05/06/17 at 17:00 Sodium Biphosphate/ Sodium Phosphate (Fleet Enema Pediatric) [address] CONSTIPATION; Start 05/06/17 at 17:00 Citric Acid/ Sodium Citrate (Bicitra) 30 ml BID PO Last administered on 09:09; Admin Dose 30 ML; Start 05/06/17 at 21:00 Nystatin (Nystatin Powder) 1 applic BID TOP Last administered on 06/14/17 09: 04; Admin Dose 1 APPLIC; Start 05/09/17 at 21:00 Collagenase (Santyl) 1 applic DAILY TOP Last administered on 06/13/17 08:49; Admin Dose 1 APPLIC; Start 05/09/17 at 15:00 Collagenase (Santyl) 1 applic PRN PRN TOP WOUND CARE Last administered on 02:33; Admin Dose 1 APPLIC; Start 05/09/17 at 14:00 Miscellaneous Information 1 ea NOTE XX ; Start 05/11/17 at 08:00 Glucose (Glutose) 15 gm Q15M PRN PO DECREASED GLUCOSE; Start 05/11/17 at 08:00 Glucose (Glutose) 22.5 gm Q15M PRN PO DECREASED GLUCOSE; Start 05/11/17 at 08: 00 Dextrose (D50w Syringe) 25 ml Q15M PRN IV DECREASED GLUCOSE Last administered on 06/10/17 09:24; Admin Dose 25 ML; Start 05/11/17 at 08:00 Dextrose (D50w Syringe) 50 ml Q15M PRN IV DECREASED GLUCOSE Last administered on 06/10/17 16:12; Admin Dose 50 ML; Start 05/11/17 at 08:00 Glucagon (Glucagen) 1 mg Q15M PRN IM DECREASED GLUCOSE Last administered on 12:10; Admin Dose 1 MG; Start 05/11/17 at 08:00 Glucose (Glutose) 15 gm Q15M PRN BUCCAL DECREASED GLUCOSE Last administered on 06/10/17 09:49; Admin Dose 15 GM; Start 05/11/17 at 08:00 Epoetin Vasyl (Epogen (Esrd)) 10,000 units MoWeFr@17 SC Last administered on 16:38; Admin Dose 10,000 UNITS; Start 05/13/17 at 17:00 IV Flush (NS 10 ml) 10 ml PRN PRN IV IV PROTOCOL; Start 05/15/17 at 17:30 Insulin Aspart NOVOLOG *MILD* ALGORI... Q4 SC Last administered on 06/01/17 21 :32; Admin Dose 1 UNIT; Start 05/26/17 at 09:00 Total Parenteral Nutrition (Tpn) 1,000 ml @ 40 mls/hr Q24H IV Last administered on 06/14/17 04:15; Admin Dose 40 MLS/HR; Start 05/27/17 at 14:00 Famotidine (Pepcid Iv) 20 mg DAILY IV Last administered on 06/14/17 09:11; Admin Dose 20 MG; Start 05/29/17 at 09:00 Hydrocortisone (Solu-Cortef) 10 mg Q8 IV Last administered on 06/14/17 06:13; Admin Dose 10 MG; Start 06/06/17 at 14:00 IV Flush (NS 10 ml) 10 ml PRN PRN IV IV PROTOCOL; Start 06/10/17 at 18:00 Furosemide (Lasix) 40 mg DAILY IV Last administered on 06/14/17 09:11; Admin Dose 40 MG; Start 06/14/17 at 09:00 Assessment/Plan Chief Complaint/Hosp Course 1. hypoxemic hypercapnic resp failure: s/p trach 2. Pafib; 3. hx HTN: 4. encephalopathy 5. renal failure: f/u with nephrology 6. dysphagia 7. G tube malfunction/ infection: unable to repair by GI. 8. GI bleed 9. severe anemia 10. malnutrition 11. anasarca and fluid overload. cont resp care nutritional support. tube feeding once ok with GI . correct lytes prn off of PLAVIX DUE TO ANEMIA/ BLEEDING. F/U with GI and surgery rec. CODE STATUS IS chemical code only now. family is considering palliative care. THANK YOU. Problems: MILAGROS MUNOZ MD Jun 14, 2017 14:47
--- NOTE | 2017-06-14 16:13 | CONS ---
Date/Time of Note Date/Time of Note DATE: 06/14/17 TIME: 16:12 Assessment/Plan Assessment/Plan Chief Complaint/Hosp Course SUBJECTIVE DATA: No acute changes, nonverbal and noncommunicative, comfortable on the vent, on TPN and Lipids INDWELLING: Trach, PICC line, and Collazo. PHYSICAL EXAMINATION: GENERAL: Chronically ill-appearing, elderly woman, who is nonverbal, noncommunicative, in no distress. HEENT: Head atraumatic, normocephalic. Sclerae anicteric. Buccal mucosa dry. NECK: Supple. Tracheostomy present. CHEST: Rise symmetrical. Breath sounds with bilateral scattered crackles. HEART: S1, S2. ABDOMEN: Soft, distended. Bowel sounds hypoactive. EXTREMITIES: With bilateral edema. SKIN: With generalized edema and erythema. ASSESSMENT: 1. Status post shock, multifactorial. 2. S/p Gillian albicans urinary tract infection (UTI). 3. S/p Healthcare associated pneumonia 4. G-tube malfunction/GC fistula. 5. Chronic encephalopathy. 6. Acute on chronic kidney disease. 7. Diabetes. PLAN: Remains unchanged, continue present care, poss tx to SNF on comfort measures DW staff Problems: Consultation Date/Type/Reason Admit Date/Time May 06, 2017 at 16:34 Initial Consult Date 05/09/17 Type of Consultation: ID Referring Provider: OSMAR MONTAGUE DO Exam/Review of Systems Vital Signs Vitals Vital Signs Date Time Temp Pulse Resp B/P Pulse Ox O2 Delivery O2 Flow Rate FiO2 06/14/17 12:10 80 06/14/17 11:01 98.5 19 128/60 98 06/14/17 08:00 30 Intake and Output 06/13/17 06/13/17 06/14/17 15:00 23:00 07:00 Intake Total 990 ml Output Total 600 ml Balance 390 ml Results Result Diagram: 06/14/17 0610 06/14/17 0610 Results 24 hrs Laboratory Tests Test 06/13/17 16:39 06/13/17 22:26 06/14/17 01:34 06/14/17 05:32 Bedside Glucose 126 128 109 117 Test 06/14/17 06:10 06/14/17 09:10 06/14/17 12:16 White Blood Count 7.3 Red Blood Count 3.25 L Hemoglobin 9.5 L Hematocrit 32.1 L Mean Corpuscular Volume 98.8 Mean Corpuscular Hemoglobin 29.2 Mean Corpuscular Hemoglobin Concent 29.6 L Red Cell Distribution Width 22.7 H Platelet Count 80 L Mean Platelet Volume 11.8 H Neutrophils % 84.6 H Lymphocytes % 4.7 L Monocytes % 4.3 Eosinophils % 5.9 Basophils % 0.1 Nucleated Red Blood Cells % 0.0 Neutrophils # (Manual) 6.2 Lymphocytes # 0.3 L Monocytes # 0.3 Eosinophils # 0.4 Basophils # 0.0 Nucleated Red Blood Cells # 0.0 Sodium Level 153 H Potassium Level 3.3 L Chloride Level 103 Carbon Dioxide Level 38 H Anion Gap 15 Blood Urea Nitrogen 56 H Creatinine 2.42 H Glucose Level 113 Calcium Level 8.8 Phosphorus Level 3.0 Magnesium Level 2.4 Bedside Glucose 117 102 Medications Medications Current Medications Bisacodyl (Dulcolax Supp) 10 mg Q48H [place] Last administered on 06/11/17 17:56; Admin Dose 10 MG; Start 05/06/17 at 17:00 Sodium Biphosphate/ Sodium Phosphate (Fleet Enema Pediatric) 118 ml Q72H PRN [place] CONSTIPATION; Start 05/06/17 at 17:00 Citric Acid/ Sodium Citrate (Bicitra) 30 ml BID PO Last administered on 09:09; Admin Dose 30 ML; Start 05/06/17 at 21:00 Nystatin (Nystatin Powder) 1 applic BID TOP Last administered on 06/14/17 09: 04; Admin Dose 1 APPLIC; Start 05/09/17 at 21:00 Collagenase (Santyl) 1 applic DAILY TOP Last administered on 06/13/17 08:49; Admin Dose 1 APPLIC; Start 05/09/17 at 15:00 Collagenase (Santyl) 1 applic PRN PRN TOP WOUND CARE Last administered on 02:33; Admin Dose 1 APPLIC; Start 05/09/17 at 14:00 Miscellaneous Information 1 ea NOTE XX ; Start 05/11/17 at 08:00 Glucose (Glutose) 15 gm Q15M PRN PO DECREASED GLUCOSE; Start 05/11/17 at 08:00 Glucose (Glutose) 22.5 gm Q15M PRN PO DECREASED GLUCOSE; Start 05/11/17 at 08: 00 Dextrose (D50w Syringe) 25 ml Q15M PRN IV DECREASED GLUCOSE Last administered on 06/10/17 09:24; Admin Dose 25 ML; Start 05/11/17 at 08:00 Dextrose (D50w Syringe) 50 ml Q15M PRN IV DECREASED GLUCOSE Last administered on 06/10/17 16:12; Admin Dose 50 ML; Start 05/11/17 at 08:00 Glucagon (Glucagen) 1 mg Q15M PRN IM DECREASED GLUCOSE Last administered on 12:10; Admin Dose 1 MG; Start 05/11/17 at 08:00 Glucose (Glutose) 15 gm Q15M PRN BUCCAL DECREASED GLUCOSE Last administered on 06/10/17 09:49; Admin Dose 15 GM; Start 05/11/17 at 08:00 Epoetin Vasyl (Epogen (Esrd)) 10,000 units MoWeFr@17 SC Last administered on 16:38; Admin Dose 10,000 UNITS; Start 05/13/17 at 17:00 IV Flush (NS 10 ml) 10 ml PRN PRN IV IV PROTOCOL; Start 05/15/17 at 17:30 Insulin Aspart NOVOLOG *MILD* ALGORI... Q4 SC Last administered on 06/01/17 21 :32; Admin Dose 1 UNIT; Start 05/26/17 at 09:00 Total Parenteral Nutrition (Tpn) 1,000 ml @ 40 mls/hr Q24H IV Last administered on 06/14/17 04:15; Admin Dose 40 MLS/HR; Start 05/27/17 at 14:00 Famotidine (Pepcid Iv) 20 mg DAILY IV Last administered on 06/14/17 09:11; Admin Dose 20 MG; Start 05/29/17 at 09:00 Hydrocortisone (Solu-Cortef) 10 mg Q8 IV Last administered on 06/14/17 14:59; Admin Dose 10 MG; Start 06/06/17 at 14:00 IV Flush (NS 10 ml) 10 ml PRN PRN IV IV PROTOCOL; Start 06/10/17 at 18:00 Furosemide (Lasix) 40 mg DAILY IV Last administered on 06/14/17 09:11; Admin Dose 40 MG; Start 06/14/17 at 09:00 DOROTHY CORONADO NP Jun 14, 2017 16:13
[2017-06-14] MEDS: EPOETIN 10000 UNITS/1 ML INJ (ESRD) SC SCH (17:48)
[2017-06-15] VITALS (22 sets, daily range): BP systolic 102–135; BP diastolic 56–79; PULSE 68–86; RESP 16–19
[2017-06-15] MEDS: INSULIN ASPART [NOVOLOG] 3 ML PEN SC SCH ×6 (01:00→21:00)
[2017-06-15] MEDS: HYDROCORTISONE 100 MG INJ IV SCH ×3 (06:00→21:04)
[2017-06-15 06:37] LABS: ABNORMAL IP MESSAGE 1; BASOPHILS % 0.2 % (0.0-2.0); EOSINOPHILS # 0.1 10^3/ul (0.0-0.5); EOSINOPHILS % 2.3 % (0.0-7.0); HEMATOCRIT 32.3 % (37.0-47.0); HEMOGLOBIN 9.6 g/dl (12.0-16.0); LYMPHOCYTES # 0.5 10^3/ul (0.8-2.9); LYMPHOCYTES % 9.1 % (15.0-51.0); MEAN CORPUSCULAR HEMOGLOBIN 29.5 pg (29.0-33.0); MEAN CORPUSCULAR HGB CONC 29.7 g/dl (32.0-37.0); MEAN CORPUSCULAR VOLUME 99.4 fl (82.0-101.0); MEAN PLATELET VOLUME 11.7 fl (7.4-10.4); MONOCYTE # 0.3 10^3/ul (0.3-0.9); MONOCYTES % 4.8 % (0.0-11.0); NEUTROPHILS % 83.2 % (39.0-77.0); PLATELET COUNT 74 10^3/UL (140-415); RED BLOOD COUNT 3.25 10^6/ul (4.20-5.40); RED CELL DISTRIBUTION WIDTH 22.5 % (11.5-14.5); WHITE BLOOD COUNT 5.6 10^3/ul (4.8-10.8)
[2017-06-15 07:00] LABS: CALCIUM 9.2 mg/dl (8.4-10.2); CREATININE 2.39 mg/dl (0.44-1.00); MAGNESIUM 2.4 mg/dl (1.7-2.5); POTASSIUM 3.7 mmol/L (3.5-5.1)
[2017-06-15 08:00] LABS: POSITIVE DIFF @See below
--- NOTE | 2017-06-15 08:38 | PN ---
DATE: 06/15/2017 SUBJECTIVE DATA: Subjectively, the patient remains in stable, in serious condition. No other events noted. No hemoptysis, hematemesis, or hematochezia. OBJECTIVE DATA: VITAL SIGNS: Blood pressure is 138/67, respirations 18, pulse 60, temperature 98.2. HEENT: Head is normocephalic. NECK: Supple. HEART: Regular rate. LUNGS: Diminished breath sounds at the base. ABDOMEN: Soft, nontender to palpation. No rebound or guarding. EXTREMITIES: Negative for clubbing, cyanosis. Positive edema. DERMATOLOGIC: No rashes. MUSCULOSKELETAL: Positive decubitus wounds. Positive contractures. NEUROLOGIC: Unchanged exam. MEDICATIONS: Reviewed. LABORATORY AND DIAGNOSTIC DATA: Shows sodium 149, potassium 3.7, BUN 48, creatinine 2.39. ASSESSMENT AND PLAN: 1. Sepsis, status post-shock. Etiology is multifactorial. The patient is completing antibiotic course. 2. Anemia. Monitor hemoglobin and hematocrit levels. Continue Epogen. 3. Nonoliguric acute kidney injury on top of chronic kidney disease stage 4. Etiology secondary to acute tubular necrosis. Renal function has been fluctuating but overall stable. Continue to monitor. 4. Hyponatremia, improving. Continue D5 water. 5. Volume overload secondary to acute kidney injury, congestive heart failure. Continue diuretic therapy. 6. Acute encephalopathy and advanced dementia. Etiology is multifactorial, toxic metabolic. Continue to monitor. 7. Diabetes. Continue Accu-Chek and sliding scale. 8. Nutrition. Continue total parenteral nutrition. 9. Gastrocutaneous fistula. Slowly healing. Continue to monitor. 10. Decubitus wound. Continue wound care. 11. Thrombocytopenia. Etiology is unclear, possibly multifactorial. Continue to monitor. 12. Status post-metabolic acidosis. 13. Wounds. Continue wound management. Dictated By: Brendan Rosas DO /junie/douglas /Document#: [id number]
[2017-06-15] MEDS: CITRIC ACID/NA CITRATE 30 ML CUP PO SCH ×2 (08:56→20:58)
[2017-06-15] MEDS: FUROSEMIDE 40 MG INJ IV SCH (09:07)
[2017-06-15] MEDS: FAMOTIDINE 20 MG INJ IV SCH (09:07)
[2017-06-15] MEDS: NYSTATIN 30 GM POWDER BTL TOP SCH ×2 (09:08→20:58)
[2017-06-15] MEDS: COLLAGENASE 30 GM TUBE TOP SCH (09:08)
--- NOTE | 2017-06-15 13:02 | CONS ---
Date/Time of Note Date/Time of Note DATE: 06/15/17 TIME: 12:55 Assessment/Plan Assessment/Plan Chief Complaint/Hosp Course ID PROGRESS NOTE CURRENT ABX DAY => OFF ABX DAY #3 TOTAL ABX DAY # s/p Cancidas -> DC 06/12 Cefepime + Amikacin + Bactrim IV Colistin INH #10 -> DC 05/26 Merrem#10 => DC 05/19 Vanco IV #10 => DC 05/19 24H INTERVAL SUMMARY * Stable now OFF ABX, DC planning in process, chronic encephalopathic, non- communicative on the Vent, TPN dependent * Chemical code status PHYSICAL EXAMINATION: GENERAL: VSS,NAD, no fevers == Obese, eyes open HEENT: Unremarkable, at baseline NECK: Supple, (+) trach-> Vent CHEST: Equal chest rise bilaterally, Vented HEART: Pulse RRR ABDOMEN: Soft -> see photos large EC fistula residual healing scar, cellulitis w/(+)drainage EXTREMITIES: Warm, mild dependent edema SKIN: Warm, dry ID ASSESSMENT: 86 yo F w/PMHx Obesity,Parkinson's dementia w/chronic encephalopathy admitted with: 1. Sepsis w/shock, hypothermia, leukocytosis, lactic acidosis => multifactorial as below => REMAINS ON PRESSORS * 05/07/17 BCx (-) * 05/09/17 BCx (-) 2. Acute on chronic respiratory failure w/Trach 3. HCAP => Tracheobronchitis * CT (+)Large right pleural effusion/small left effusion * Respiratory Cx 05/14: * Organism 1 PSEUDOMONAS AERUGINOSA * Organism 2 STENOTROPHOMONAS MALTOPHILIA 4. 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 5. UTI as per urinalysis on admission => urine was not sent for culture 6. Multiple chronic decub ulcers 7. RASH on admission s/p empiric Elimite x1 w/(-)skin scraping for scabies 8. Acute kidney injury 9. Diabetes. 10. Acute on chronic anemia. 11. 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 Monitor OFF ABX for recurrent fevers, sepsis 2. DC planning in process 3. February DC OFF isolation -- repeat MRSA nares screen on 05/09 (-) . Problems: Consultation Date/Type/Reason Admit Date/Time May 06, 2017 at 16:34 Initial Consult Date 05/12/17 Type of Consultation: ID Referring Provider: OSMAR MONTAGUE DO Exam/Review of Systems Vital Signs Vitals Vital Signs Date Time Temp Pulse Resp B/P Pulse Ox O2 Delivery O2 Flow Rate FiO2 06/15/17 12:12 76 06/15/17 11:47 97.6 19 127/60 96 06/15/17 11:00 30 06/15/17 04:00 Mechanical Ventilator Intake and Output 06/14/17 06/14/17 06/15/17 15:00 23:00 07:00 Intake Total 730 ml 480 ml Output Total 500 ml 1000 ml Balance 230 ml -520 ml Results Result Diagram: 06/15/17 0515 06/15/17 0515 Results 24 hrs Laboratory Tests Test 06/14/17 17:46 06/14/17 20:45 06/15/17 05:15 Bedside Glucose 117 130 White Blood Count 5.6 # Red Blood Count 3.25 L Hemoglobin 9.6 L Hematocrit 32.3 L Mean Corpuscular Volume 99.4 Mean Corpuscular Hemoglobin 29.5 Mean Corpuscular Hemoglobin Concent 29.7 L Red Cell Distribution Width 22.5 H Platelet Count 74 L Mean Platelet Volume 11.7 H Neutrophils % 83.2 H Lymphocytes % 9.1 L Monocytes % 4.8 Eosinophils % 2.3 Basophils % 0.2 Nucleated Red Blood Cells % 0.0 Neutrophils # (Manual) 4.7 Lymphocytes # 0.5 L Monocytes # 0.3 Eosinophils # 0.1 Basophils # 0.0 Nucleated Red Blood Cells # 0.0 Sodium Level 149 H Potassium Level 3.7 Chloride Level 103 Carbon Dioxide Level 37 H Anion Gap 13 Blood Urea Nitrogen 58 H Creatinine 2.39 H Glucose Level 121 Calcium Level 9.2 Phosphorus Level 3.0 Magnesium Level 2.4 Medications Medications Current Medications Bisacodyl (Dulcolax Supp) 10 mg Q48H [place] Last administered on 06/11/17 17:56; Admin Dose 10 MG; Start 05/06/17 at 17:00 Sodium Biphosphate/ Sodium Phosphate (Fleet Enema Pediatric) 118 ml Q72H PRN [place] CONSTIPATION; Start 05/06/17 at 17:00 Citric Acid/ Sodium Citrate (Bicitra) 30 ml BID PO Last administered on 09:09; Admin Dose 30 ML; Start 05/06/17 at 21:00 Nystatin (Nystatin Powder) 1 applic BID TOP Last administered on 06/15/17 09: 08; Admin Dose 1 APPLIC; Start 05/09/17 at 21:00 Collagenase (Santyl) 1 applic DAILY TOP Last administered on 06/15/17 09:08; Admin Dose 1 APPLIC; Start 05/09/17 at 15:00 Collagenase (Santyl) 1 applic PRN PRN TOP WOUND CARE Last administered on 02:33; Admin Dose 1 APPLIC; Start 05/09/17 at 14:00 Miscellaneous Information 1 ea NOTE XX ; Start 05/11/17 at 08:00 Glucose (Glutose) 15 gm Q15M PRN PO DECREASED GLUCOSE; Start 05/11/17 at 08:00 Glucose (Glutose) 22.5 gm Q15M PRN PO DECREASED GLUCOSE; Start 05/11/17 at 08: 00 Dextrose (D50w Syringe) 25 ml Q15M PRN IV DECREASED GLUCOSE Last administered on 06/10/17 09:24; Admin Dose 25 ML; Start 05/11/17 at 08:00 Dextrose (D50w Syringe) 50 ml Q15M PRN IV DECREASED GLUCOSE Last administered on 06/10/17 16:12; Admin Dose 50 ML; Start 05/11/17 at 08:00 Glucagon (Glucagen) 1 mg Q15M PRN IM DECREASED GLUCOSE Last administered on 12:10; Admin Dose 1 MG; Start 05/11/17 at 08:00 Glucose (Glutose) 15 gm Q15M PRN BUCCAL DECREASED GLUCOSE Last administered on 06/10/17 09:49; Admin Dose 15 GM; Start 05/11/17 at 08:00 Epoetin Vasyl (Epogen (Esrd)) 10,000 units MoWeFr@17 SC Last administered on 17:48; Admin Dose 10,000 UNITS; Start 05/13/17 at 17:00 IV Flush (NS 10 ml) 10 ml PRN PRN IV IV PROTOCOL; Start 05/15/17 at 17:30 Insulin Aspart NOVOLOG *MILD* ALGORI... Q4 SC Last administered on 06/01/17 21 :32; Admin Dose 1 UNIT; Start 05/26/17 at 09:00 Total Parenteral Nutrition (Tpn) 1,000 ml @ 40 mls/hr Q24H IV Last administered on 06/14/17 04:15; Admin Dose 40 MLS/HR; Start 05/27/17 at 14:00 Famotidine (Pepcid Iv) 20 mg DAILY IV Last administered on 06/15/17 09:07; Admin Dose 20 MG; Start 05/29/17 at 09:00 Hydrocortisone (Solu-Cortef) 10 mg Q8 IV Last administered on 06/15/17 06:00; Admin Dose 10 MG; Start 06/06/17 at 14:00 IV Flush (NS 10 ml) 10 ml PRN PRN IV IV PROTOCOL; Start 06/10/17 at 18:00 Furosemide (Lasix) 40 mg DAILY IV Last administered on 06/15/17 09:07; Admin Dose 40 MG; Start 06/14/17 at 09:00 SYLVIA PADRON NP Jun 15, 2017 13:02
--- NOTE | 2017-06-15 14:47 | CONS ---
Date/Time of Note Date/Time of Note DATE: 06/15/17 TIME: 14:46 Consult Date/Type/Reason Admit Date/Time May 06, 2017 at 16:34 Initial Consult Date 05/22/17 Type of Consultation: CARDIOLOGY Ordering Provider: OSMAR MONTAGUE DO Subjective CARDIOLOGY FOLLOW UP NOTE: Discussed with staff and rhythm was reviewed. Pt remains in NSR with frequent PAC and P afib. pt remains NONVERBAL ON Vent pt is on TELE now OBJECTIVE: General: no acute distress. s/p trach on vent. HEENT: NC/AT. NECK: NO JVD. no stridor. S/P trach on vent CV: irregularly irregular. systolic murmur; no gallop or rubs. PULM: no wheezing anteriorly GI: SOFT, NT, ND, no rebound or guarding s/p dressing at the site of previous G tube Extremity: + B/L LE and UE edema. no clubbing. neuro: opens her eyes to painful stimuli. does not follow commands Psych: calm rectal: deferred Objective Vital Signs Date Time Temp Pulse Resp B/P Pulse Ox O2 Delivery O2 Flow Rate FiO2 06/15/17 13:35 74 16 97 30 06/15/17 11:47 97.6 127/60 06/15/17 04:00 Mechanical Ventilator Intake and Output 06/14/17 06/14/17 06/15/17 15:00 23:00 07:00 Intake Total 730 ml 480 ml Output Total 500 ml 1000 ml Balance 230 ml -520 ml Results/Medications Result Diagram: 06/15/17 0515 06/15/17 0515 Results 24 hrs Laboratory Tests Test 06/14/17 17:46 06/14/17 20:45 06/15/17 01:47 06/15/17 05:15 Bedside Glucose 117 130 119 White Blood Count 5.6 # Red Blood Count 3.25 L Hemoglobin 9.6 L Hematocrit 32.3 L Mean Corpuscular Volume 99.4 Mean Corpuscular Hemoglobin 29.5 Mean Corpuscular Hemoglobin Concent 29.7 L Red Cell Distribution Width 22.5 H Platelet Count 74 L Mean Platelet Volume 11.7 H Neutrophils % 83.2 H Lymphocytes % 9.1 L Monocytes % 4.8 Eosinophils % 2.3 Basophils % 0.2 Nucleated Red Blood Cells % 0.0 Neutrophils # (Manual) 4.7 Lymphocytes # 0.5 L Monocytes # 0.3 Eosinophils # 0.1 Basophils # 0.0 Nucleated Red Blood Cells # 0.0 Sodium Level 149 H Potassium Level 3.7 Chloride Level 103 Carbon Dioxide Level 37 H Anion Gap 13 Blood Urea Nitrogen 58 H Creatinine 2.39 H Glucose Level 121 Calcium Level 9.2 Phosphorus Level 3.0 Magnesium Level 2.4 Test 06/15/17 05:18 06/15/17 09:06 06/15/17 12:30 Bedside Glucose 125 136 116 Medications Current Medications Bisacodyl (Dulcolax Supp) 10 mg Q48H [place] Last administered on 06/11/17 17:56; Admin Dose 10 MG; Start 05/06/17 at 17:00 Sodium Biphosphate/ Sodium Phosphate (Fleet Enema Pediatric) 118 ml Q72H PRN [place] CONSTIPATION; Start 05/06/17 at 17:00 Citric Acid/ Sodium Citrate (Bicitra) 30 ml BID PO Last administered on 09:09; Admin Dose 30 ML; Start 05/06/17 at 21:00 Nystatin (Nystatin Powder) 1 applic BID TOP Last administered on 06/15/17 09: 08; Admin Dose 1 APPLIC; Start 05/09/17 at 21:00 Collagenase (Santyl) 1 applic DAILY TOP Last administered on 06/15/17 09:08; Admin Dose 1 APPLIC; Start 05/09/17 at 15:00 Collagenase (Santyl) 1 applic PRN PRN TOP WOUND CARE Last administered on 02:33; Admin Dose 1 APPLIC; Start 05/09/17 at 14:00 Miscellaneous Information 1 ea NOTE XX ; Start 05/11/17 at 08:00 Glucose (Glutose) 15 gm Q15M PRN PO DECREASED GLUCOSE; Start 05/11/17 at 08:00 Glucose (Glutose) 22.5 gm Q15M PRN PO DECREASED GLUCOSE; Start 05/11/17 at 08: 00 Dextrose (D50w Syringe) 25 ml Q15M PRN IV DECREASED GLUCOSE Last administered on 06/10/17 09:24; Admin Dose 25 ML; Start 05/11/17 at 08:00 Dextrose (D50w Syringe) 50 ml Q15M PRN IV DECREASED GLUCOSE Last administered on 06/10/17 16:12; Admin Dose 50 ML; Start 05/11/17 at 08:00 Glucagon (Glucagen) 1 mg Q15M PRN IM DECREASED GLUCOSE Last administered on 12:10; Admin Dose 1 MG; Start 05/11/17 at 08:00 Glucose (Glutose) 15 gm Q15M PRN BUCCAL DECREASED GLUCOSE Last administered on 06/10/17 09:49; Admin Dose 15 GM; Start 05/11/17 at 08:00 Epoetin Vasyl (Epogen (Esrd)) 10,000 units MoWeFr@17 [place] Last administered on 17:48; Admin Dose 10,000 UNITS; Start 05/13/17 at 17:00 IV Flush (NS 10 ml) 10 ml PRN PRN IV IV PROTOCOL; Start 05/15/17 at 17:30 Insulin Aspart NOVOLOG *MILD* ALGORI... Q4 [place] Last administered on 06/01/17 21 :32; Admin Dose 1 UNIT; Start 05/26/17 at 09:00 Total Parenteral Nutrition (Tpn) 1,000 ml @ 40 mls/hr Q24H IV Last administered on 06/14/17 04:15; Admin Dose 40 MLS/HR; Start 05/27/17 at 14:00 Famotidine (Pepcid Iv) 20 mg DAILY IV Last administered on 06/15/17 09:07; Admin Dose 20 MG; Start 05/29/17 at 09:00 Hydrocortisone (Solu-Cortef) 10 mg Q8 IV Last administered on 06/15/17 06:00; Admin Dose 10 MG; Start 06/06/17 at 14:00 IV Flush (NS 10 ml) 10 ml PRN PRN IV IV PROTOCOL; Start 06/10/17 at 18:00 Furosemide (Lasix) 40 mg DAILY IV Last administered on 06/15/17 09:07; Admin Dose 40 MG; Start 06/14/17 at 09:00 Assessment/Plan Chief Complaint/Hosp Course 1. hypoxemic hypercapnic resp failure: s/p trach 2. Pafib; 3. hx HTN: 4. encephalopathy 5. renal failure: f/u with nephrology 6. dysphagia 7. G tube malfunction/ infection: unable to repair by GI. 8. GI bleed 9. severe anemia 10. malnutrition 11. anasarca and fluid overload. cont resp care nutritional support. tube feeding once ok with GI . correct lytes prn off of PLAVIX DUE TO ANEMIA/ BLEEDING. F/U with GI and surgery rec. CODE STATUS IS chemical code only now. family is considering palliative care. THANK YOU. Problems: MILAGROS MUNOZ MD Jun 15, 2017 14:47
--- NOTE | 2017-06-15 15:15 | CONS ---
Date/Time of Note Date/Time of Note DATE: 06/15/17 TIME: 15:15 Assessment/Plan Assessment/Plan Chief Complaint/Hosp Course This 69-year-old female with a history of CVA vent dependent respiratory failure , was brought to the emergency room for the dislodgment of the GJ tube. Patient is nonverbal and no information can be obtained. No GI bleeding no chest pain no shortness of breath. Problems: Additional Assessment/Plan Additional Assessment/Plan 1. Dislodged GJ tube accidentally 2. Vent dependent respiratory failure 3. Chronic encephalopathy 4. Renal failure 5. Peripheral vascular disease 6. Anemia, secondary to chronic disease no evidence of active bleeding 7. 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 Hypotension, corrected patient is off dopamine for more than 24 hours 9. Decubitus ulcer 10. Workup for adrenal insufficiency, patient is on steroid now and off dopamine 11. Status post sepsis 12. Morbid obesity, patient has definitely gained a lot of weight around the abdominal girth Plan fistula is closing discontinue intralipid Reduce TPN to 40 cc per Discontinue D10 Hopefully we will be able to feed her through the NG tube within the next few days when the stoma is completely closed. Continue present care Consultation Date/Type/Reason Admit Date/Time May 06, 2017 at 16:34 Type of Consultation: CARDIOLOGY Referring Provider: OSMAR MONTAGUE DO 24 HR Interval Summary Subjective hx not possible: pt non-verbal Exam/Review of Systems Vital Signs Vitals Vital Signs Date Time Temp Pulse Resp B/P Pulse Ox O2 Delivery O2 Flow Rate FiO2 06/15/17 13:35 74 16 97 30 06/15/17 11:47 97.6 127/60 06/15/17 04:00 Mechanical Ventilator Intake and Output 06/14/17 06/14/17 06/15/17 15:00 23:00 07:00 Intake Total 730 ml 480 ml Output Total 500 ml 1000 ml Balance 230 ml -520 ml Exam ENMT: intubated Cardiovascular: nl pulses, regular rate and rhythm Gastrointestinal: nl liver, spleen, non-tender, soft Extremities: normal pulses Neurological: unresponsive Results Result Diagram: 06/15/17 0515 06/15/17 0515 Results 24 hrs Laboratory Tests Test 06/14/17 17:46 06/14/17 20:45 06/15/17 01:47 06/15/17 05:15 Bedside Glucose 117 130 119 White Blood Count 5.6 # Red Blood Count 3.25 L Hemoglobin 9.6 L Hematocrit 32.3 L Mean Corpuscular Volume 99.4 Mean Corpuscular Hemoglobin 29.5 Mean Corpuscular Hemoglobin Concent 29.7 L Red Cell Distribution Width 22.5 H Platelet Count 74 L Mean Platelet Volume 11.7 H Neutrophils % 83.2 H Lymphocytes % 9.1 L Monocytes % 4.8 Eosinophils % 2.3 Basophils % 0.2 Nucleated Red Blood Cells % 0.0 Neutrophils # (Manual) 4.7 Lymphocytes # 0.5 L Monocytes # 0.3 Eosinophils # 0.1 Basophils # 0.0 Nucleated Red Blood Cells # 0.0 Sodium Level 149 H Potassium Level 3.7 Chloride Level 103 Carbon Dioxide Level 37 H Anion Gap 13 Blood Urea Nitrogen 58 H Creatinine 2.39 H Glucose Level 121 Calcium Level 9.2 Phosphorus Level 3.0 Magnesium Level 2.4 Test 06/15/17 05:18 06/15/17 09:06 06/15/17 12:30 Bedside Glucose 125 136 116 Medications Medications Current Medications Bisacodyl (Dulcolax Supp) 10 mg Q48H [place] Last administered on 06/11/17 17:56; Admin Dose 10 MG; Start 05/06/17 at 17:00 Sodium Biphosphate/ Sodium Phosphate (Fleet Enema Pediatric) 118 ml Q72H PRN [place] CONSTIPATION; Start 05/06/17 at 17:00 Citric Acid/ Sodium Citrate (Bicitra) 30 ml BID PO Last administered on 09:09; Admin Dose 30 ML; Start 05/06/17 at 21:00 Nystatin (Nystatin Powder) 1 applic BID TOP Last administered on 06/15/17 09: 08; Admin Dose 1 APPLIC; Start 05/09/17 at 21:00 Collagenase (Santyl) 1 applic DAILY TOP Last administered on 06/15/17 09:08; Admin Dose 1 APPLIC; Start 05/09/17 at 15:00 Collagenase (Santyl) 1 applic PRN PRN TOP WOUND CARE Last administered on 02:33; Admin Dose 1 APPLIC; Start 05/09/17 at 14:00 Miscellaneous Information 1 ea NOTE XX ; Start 05/11/17 at 08:00 Glucose (Glutose) 15 gm Q15M PRN PO DECREASED GLUCOSE; Start 05/11/17 at 08:00 Glucose (Glutose) 22.5 gm Q15M PRN PO DECREASED GLUCOSE; Start 05/11/17 at 08: 00 Dextrose (D50w Syringe) 25 ml Q15M PRN IV DECREASED GLUCOSE Last administered on 06/10/17 09:24; Admin Dose 25 ML; Start 05/11/17 at 08:00 Dextrose (D50w Syringe) 50 ml Q15M PRN IV DECREASED GLUCOSE Last administered on 06/10/17 16:12; Admin Dose 50 ML; Start 05/11/17 at 08:00 Glucagon (Glucagen) 1 mg Q15M PRN IM DECREASED GLUCOSE Last administered on 12:10; Admin Dose 1 MG; Start 05/11/17 at 08:00 Glucose (Glutose) 15 gm Q15M PRN BUCCAL DECREASED GLUCOSE Last administered on 06/10/17 09:49; Admin Dose 15 GM; Start 05/11/17 at 08:00 Epoetin Vasyl (Epogen (Esrd)) 10,000 units MoWeFr@17 [place] Last administered on 17:48; Admin Dose 10,000 UNITS; Start 05/13/17 at 17:00 IV Flush (NS 10 ml) 10 ml PRN PRN IV IV PROTOCOL; Start 05/15/17 at 17:30 Insulin Aspart NOVOLOG *MILD* ALGORI... Q4 SC Last administered on 06/01/17 21 :32; Admin Dose 1 UNIT; Start 05/26/17 at 09:00 Total Parenteral Nutrition (Tpn) 1,000 ml @ 40 mls/hr Q24H IV Last administered on 06/14/17 04:15; Admin Dose 40 MLS/HR; Start 05/27/17 at 14:00 Famotidine (Pepcid Iv) 20 mg DAILY IV Last administered on 06/15/17 09:07; Admin Dose 20 MG; Start 05/29/17 at 09:00 Hydrocortisone (Solu-Cortef) 10 mg Q8 IV Last administered on 06/15/17 14:46; Admin Dose 10 MG; Start 06/06/17 at 14:00 IV Flush (NS 10 ml) 10 ml PRN PRN IV IV PROTOCOL; Start 06/10/17 at 18:00 Furosemide (Lasix) 40 mg DAILY IV Last administered on 06/15/17t 09:07; Admin Dose 40 MG; Start 06/14/17 at 09:00 SYLWIA SY MD Jun 15, 2017 15:15
[2017-06-15] MEDS: BISACODYL 10 MG SUPP PR SCH (17:51)
[2017-06-15] MEDS: TPN 1,000 ML IV SCH (17:52)
--- NOTE | 2017-06-15 18:09 | CONS ---
Date/Time of Note Date/Time of Note DATE: 06/15/17 TIME: 18:08 Consult Date/Type/Reason Admit Date/Time May 06, 2017 at 16:34 Initial Consult Date 05/22/17 Type of Consultation: Pulm Ordering Provider: OSMAR MONTAGUE DO Subjective no events overnight. Objective Vital Signs Date Time Temp Pulse Resp B/P Pulse Ox O2 Delivery O2 Flow Rate FiO2 06/15/17 17:35 74 16 98 30 06/15/17 15:18 98.6 125/58 06/15/17 04:00 Mechanical Ventilator Intake and Output 06/14/17 06/14/17 06/15/17 15:00 23:00 07:00 Intake Total 730 ml 480 ml Output Total 500 ml 1000 ml Balance 230 ml -520 ml Exam HEENT: Neck supple; no JVD; no LAD; + trach CVS: RRR, S1 and S2 CHEST: Clear ABD: Soft, NT, + BS EXT: No c/c + edema Results/Medications Result Diagram: 06/15/17 0515 06/15/17 0515 Results 24 hrs Laboratory Tests Test 06/14/17 20:45 06/15/17 01:47 06/15/17 05:15 06/15/17 05:18 Bedside Glucose 130 119 125 White Blood Count 5.6 # Red Blood Count 3.25 L Hemoglobin 9.6 L Hematocrit 32.3 L Mean Corpuscular Volume 99.4 Mean Corpuscular Hemoglobin 29.5 Mean Corpuscular Hemoglobin Concent 29.7 L Red Cell Distribution Width 22.5 H Platelet Count 74 L Mean Platelet Volume 11.7 H Neutrophils % 83.2 H Lymphocytes % 9.1 L Monocytes % 4.8 Eosinophils % 2.3 Basophils % 0.2 Nucleated Red Blood Cells % 0.0 Neutrophils # (Manual) 4.7 Lymphocytes # 0.5 L Monocytes # 0.3 Eosinophils # 0.1 Basophils # 0.0 Nucleated Red Blood Cells # 0.0 Sodium Level 149 H Potassium Level 3.7 Chloride Level 103 Carbon Dioxide Level 37 H Anion Gap 13 Blood Urea Nitrogen 58 H Creatinine 2.39 H Glucose Level 121 Calcium Level 9.2 Phosphorus Level 3.0 Magnesium Level 2.4 Test 06/15/17 09:06 06/15/17 12:30 Bedside Glucose 136 116 Medications Current Medications Bisacodyl (Dulcolax Supp) 10 mg Q48H [place] Last administered on 06/15/17 17:51; Admin Dose 10 MG; Start 05/06/17 at 17:00 Sodium Biphosphate/ Sodium Phosphate (Fleet Enema Pediatric) 118 ml Q72H PRN [place] CONSTIPATION; Start 05/06/17 at 17:00 Citric Acid/ Sodium Citrate (Bicitra) 30 ml BID PO Last administered on 09:09; Admin Dose 30 ML; Start 05/06/17 at 21:00 Nystatin (Nystatin Powder) 1 applic BID TOP Last administered on 06/15/17 09: 08; Admin Dose 1 APPLIC; Start 05/09/17 at 21:00 Collagenase (Santyl) 1 applic DAILY TOP Last administered on 06/15/17 09:08; Admin Dose 1 APPLIC; Start 05/09/17 at 15:00 Collagenase (Santyl) 1 applic PRN PRN TOP WOUND CARE Last administered on 02:33; Admin Dose 1 APPLIC; Start 05/09/17 at 14:00 Miscellaneous Information 1 ea NOTE XX ; Start 05/11/17 at 08:00 Glucose (Glutose) 15 gm Q15M PRN PO DECREASED GLUCOSE; Start 05/11/17 at 08:00 Glucose (Glutose) 22.5 gm Q15M PRN PO DECREASED GLUCOSE; Start 05/11/17 at 08: 00 Dextrose (D50w Syringe) 25 ml Q15M PRN IV DECREASED GLUCOSE Last administered on 06/10/17 09:24; Admin Dose 25 ML; Start 05/11/17 at 08:00 Dextrose (D50w Syringe) 50 ml Q15M PRN IV DECREASED GLUCOSE Last administered on 06/10/17 16:12; Admin Dose 50 ML; Start 05/11/17 at 08:00 Glucagon (Glucagen) 1 mg Q15M PRN IM DECREASED GLUCOSE Last administered on 12:10; Admin Dose 1 MG; Start 05/11/17 at 08:00 Glucose (Glutose) 15 gm Q15M PRN BUCCAL DECREASED GLUCOSE Last administered on 06/10/17 09:49; Admin Dose 15 GM; Start 05/11/17 at 08:00 Epoetin Vasyl (Epogen (Esrd)) 10,000 units MoWeFr@17 [place] Last administered on 17:48; Admin Dose 10,000 UNITS; Start 05/13/17 at 17:00 IV Flush (NS 10 ml) 10 ml PRN PRN IV IV PROTOCOL; Start 05/15/17 at 17:30 Insulin Aspart NOVOLOG *MILD* ALGORI... Q4 [place] Last administered on 06/01/17 21 :32; Admin Dose 1 UNIT; Start 05/26/17 at 09:00 Total Parenteral Nutrition (Tpn) 1,000 ml @ 40 mls/hr Q24H IV Last administered on 06/14/17 04:15; Admin Dose 40 MLS/HR; Start 05/27/17 at 14:00 Famotidine (Pepcid Iv) 20 mg DAILY IV Last administered on 06/15/17 09:07; Admin Dose 20 MG; Start 05/29/17 at 09:00 Hydrocortisone (Solu-Cortef) 10 mg Q8 IV Last administered on 06/15/17 14:46; Admin Dose 10 MG; Start 06/06/17 at 14:00 IV Flush (NS 10 ml) 10 ml PRN PRN IV IV PROTOCOL; Start 06/10/17 at 18:00 Furosemide (Lasix) 40 mg DAILY IV Last administered on 06/15/17 09:07; Admin Dose 40 MG; Start 06/14/17 at 09:00 Assessment/Plan Additional Assessment/Plan IMP: 1. s/p Septic shock 2. Chronic respiratory failure, which is ventilator dependent. 3. Advanced dementia. 4. Chronic renal insufficiency. 5. Hyponatremia. 6. Thrombocytopenia RECS: 1. Vent support 2. TFs 3. BDs PINKY GHOSH MD Jun 15, 2017 18:09
--- NOTE | 2017-06-15 23:40 | PN ---
Date/Time of Note Date/Time of Note DATE: 06/15/17 TIME: 23:36 Assessment/Plan Lines/Catheters IV Catheter Type (from Nrsg): PICC Line Collazo in Place (from Nrsg): Yes Assessment/Plan Chief Complaint/Hosp Course 1. G-tube dislodgement: replaced with gjtube by GI, continued yellow drainage peristomal; gj tube replacement attempt-unable due to too large of an opening; Now chemical code; currently on tpn; bleeding from GCF -hospice/palliative is the best option for this patient- patient being transitioned to comfort care upon discharge to snf 2. Septic shock: multifactorial: 2/2: pneumonia + cellulitis + wounds; persistent, off pressors again, episodes of hypothermia and hypoglycemia -supportive 3. Respiratory failure with trach: PNA with pulm edema; comfortable on vent -pulmonary toilet -supportive 4.STARLA with CKD; anuric currently -supportive 5. Normocytic anemia: previous coffee ground drainage peristoma;no acute bleed noted; s/p transfusion -monitor and transfuse as needed 6. CHF -medical management 7. Diabetes with hypoglycemia -medical management 8. Acute encephalopathy with history of advanced dementia; unchanged neurologically -supportive 9. Decubitus wound. -continue wound care. 10. Peristomal cellulitis 2/2 #1; +pseudomonas -local care 11. Pancytopenia -supportive 12. Hypothermia: increasing coagulopathy with noted GCF bleed s/p hemostasis with chemical cautery by Dr. Blackburn Patient seen and examined in collaboration with Dr. Meliton Blackburn. Thank you. Problems: Subjective 24 Hr Interval Summary No acute changes overnight. Continues on vent. Appears comfortable. Non verbal indicators of pain not present. Continues on tpn. No edie bleed from GCF- closing. No fevers, chills, sob, n/v/d/dysuria. Pending dc on palliative care. Exam/Review of Systems Vital Signs Vitals Vital Signs Date Time Temp Pulse Resp B/P Pulse Ox O2 Delivery O2 Flow Rate FiO2 06/15/17 22:40 40 06/15/17 21:26 62 16 97 06/15/17 19:51 97.6 135/66 06/15/17 04:00 Mechanical Ventilator Intake and Output 06/14/17 06/14/17 06/15/17 15:00 23:00 07:00 Intake Total 730 ml 480 ml Output Total 500 ml 1000 ml Balance 230 ml -520 ml Exam Free Text/Dictation Constitutional: non-verbal, awake, nonresponsive, ill-appearing. No oriented Psych: withdraws from pain Head: atraumatic, normocephalic Eyes: nl sclera ENMT: mucosa pink and moist, missing teeth Neck: non-tender, other (trach), supple Respiratory: diminished Cardiovascular: edema Gastrointestinal: distended (mod), other (stoma without overt bleeding; closing ), soft, nontender Musculoskeletal: No muscle tone Extremities: edema worsened Neurological: No nl mental status, No nl speech Skin: other (abdominal/peristomal/breast fold redness improved), cool skin Results Result Diagram: 06/15/17 0515 06/15/17 0515 SHADI CALDERON NP Jun 15, 2017 23:40
[2017-06-16] VITALS (25 sets, daily range): BP systolic 120–141; BP diastolic 58–88; PULSE 67–80; RESP 16–20
[2017-06-16] MEDS: INSULIN ASPART [NOVOLOG] 3 ML PEN SC SCH ×6 (01:00→20:33)
[2017-06-16] MEDS: HYDROCORTISONE 100 MG INJ IV SCH ×3 (05:53→20:30)
[2017-06-16 07:09] LABS: ABNORMAL IP MESSAGE 1; BASOPHILS % 0.3 % (0.0-2.0); EOSINOPHILS # 0.5 10^3/ul (0.0-0.5); EOSINOPHILS % 7.1 % (0.0-7.0); HEMATOCRIT 31.5 % (37.0-47.0); HEMOGLOBIN 9.3 g/dl (12.0-16.0); LYMPHOCYTES # 0.7 10^3/ul (0.8-2.9); LYMPHOCYTES % 10.8 % (15.0-51.0); MEAN CORPUSCULAR HEMOGLOBIN 30.1 pg (29.0-33.0); MEAN CORPUSCULAR HGB CONC 29.5 g/dl (32.0-37.0); MEAN CORPUSCULAR VOLUME 101.9 fl (82.0-101.0); MEAN PLATELET VOLUME 11.8 fl (7.4-10.4); MONOCYTE # 0.3 10^3/ul (0.3-0.9); MONOCYTES % 4.2 % (0.0-11.0); NEUTROPHILS % 77.4 % (39.0-77.0); PLATELET COUNT 78 10^3/UL (140-415); RED BLOOD COUNT 3.09 10^6/ul (4.20-5.40); RED CELL DISTRIBUTION WIDTH 22.3 % (11.5-14.5); WHITE BLOOD COUNT 6.5 10^3/ul (4.8-10.8)
[2017-06-16 07:19] LABS: POSITIVE DIFF @See below
[2017-06-16 07:50] LABS: CALCIUM 9.1 mg/dl (8.4-10.2); CREATININE 2.42 mg/dl (0.44-1.00); MAGNESIUM 2.5 mg/dl (1.7-2.5); POTASSIUM 3.6 mmol/L (3.5-5.1)
[2017-06-16] MEDS: CITRIC ACID/NA CITRATE 30 ML CUP PO SCH ×2 (09:00→20:30)
[2017-06-16] MEDS: FAMOTIDINE 20 MG INJ IV SCH (09:09)
[2017-06-16] MEDS: COLLAGENASE 30 GM TUBE TOP SCH (09:09)
[2017-06-16] MEDS: NYSTATIN 30 GM POWDER BTL TOP SCH ×2 (09:09→20:30)
[2017-06-16] MEDS: FUROSEMIDE 40 MG INJ IV SCH (09:09)
[2017-06-16] MEDS: TPN 1,000 ML IV SCH ×2 (09:14→18:30)
--- NOTE | 2017-06-16 10:54 | PN ---
DATE: 06/16/2017 SUBJECTIVE: The patient remains stable serious condition. No other events noted. No hemoptysis, hematemesis, hematochezia. The patient is stable on current ventilatory settings. OBJECTIVE DATA: VITAL SIGNS: Blood pressure is 120/58, respirations 16, pulse 65, temperature 97.6. HEENT: Head is normocephalic. NECK: Supple. HEART: Regular rate. LUNGS: Diminished breath sounds at the base. ABDOMEN: Soft, nontender to palpation. Positive gastrocutaneous fistula. EXTREMITIES: Negative for clubbing, cyanosis. Positive edema. Diffuse anasarca. DERMATOLOGIC: No rashes. MUSCULOSKELETAL: Positive wounds. LABORATORY AND DIAGNOSTIC DATA: Currently pending. ASSESSMENT AND PLAN: 1. Sepsis status post shock. Etiology is multifactorial. The patient is completing antibiotic course. 2. Anemia. Will continue to monitor H and H levels. Continue Epogen. 3. Nonoliguric acute kidney injury on top of chronic kidney disease stage 4. Etiology secondary to acute tubular necrosis. Renal function has been fluctuating but overall stable. Continue to monitor. Patient is not a hemodialysis candidate. 4. Hypernatremia, improving. Continue D5 water. 5. Volume overload secondary to acute kidney injury and congestive heart failure. Continue current diuretic regimen. 6. Acute encephalopathy and advanced dementia. Etiology is toxic metabolic. Continue to monitor. 7. Diabetes. Continue Accu-Cheks and sliding scale. 8. Nutrition. Continue total parenteral nutrition. 9. 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 10. Decubitus wound. Continue wound care. 11. Thrombocytopenia. Etiology is unclear. We will continue to monitor closely. 12. Decubitus wound. Continue current wound care. The patient is pending transfer to subacute comfort measures. Dictated By: Brendan Rosas DO /junie/josie /Document#: [id number]
--- NOTE | 2017-06-16 13:07 | CONS ---
Date/Time of Note Date/Time of Note DATE: 06/16/17 TIME: 13:05 Assessment/Plan Assessment/Plan Chief Complaint/Hosp Course Assessment/Plan Chief Complaint/Hosp Course ID PROGRESS NOTE CURRENT ABX DAY => OFF ABX DAY #3 TOTAL ABX DAY # s/p Cancidas -> DC 06/12 Cefepime + Amikacin + Bactrim IV Colistin INH #10 -> DC 05/26 Merrem#10 => DC 05/19 Vanco IV #10 => DC 05/19 24H INTERVAL SUMMARY * Awake. Responsive. No Acute Distress. * Chemical code status PHYSICAL EXAMINATION: GENERAL: VSS,NAD, no fevers == Obese, eyes open HEENT: Unremarkable, at baseline NECK: Supple, (+) trach-> Vent CHEST: Equal chest rise bilaterally, Vented HEART: Pulse RRR ABDOMEN: Soft -> see photos large EC fistula residual healing scar, cellulitis w/(+)drainage EXTREMITIES: Warm, mild dependent edema SKIN: Warm, dry ID ASSESSMENT: 86 yo F w/PMHx Obesity,Parkinson's dementia w/chronic encephalopathy admitted with: 1. Sepsis w/shock, hypothermia, leukocytosis, lactic acidosis => multifactorial as below => REMAINS ON PRESSORS * 05/07/17 BCx (-) * 05/09/17 BCx (-) 2. Acute on chronic respiratory failure w/Trach 3. HCAP => Tracheobronchitis * CT (+)Large right pleural effusion/small left effusion * Respiratory Cx 05/14: * Organism 1 PSEUDOMONAS AERUGINOSA * Organism 2 STENOTROPHOMONAS MALTOPHILIA 4. 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 5. UTI as per urinalysis on admission => urine was not sent for culture 6. Multiple chronic decub ulcers 7. RASH on admission s/p empiric Elimite x1 w/(-)skin scraping for scabies 8. Acute kidney injury 9. Diabetes. 10. Acute on chronic anemia. 11. 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 Monitor OFF ABX for recurrent fevers, sepsis 2. DC planning in process 3. May DC OFF isolation -- repeat MRSA nares screen on 05/09 (-) 4. Monitor Labs. Problems: Consultation Date/Type/Reason Admit Date/Time May 06, 2017 at 16:34 Initial Consult Date 05/30/17 Type of Consultation: id Referring Provider: OSMAR MONTAGUE DO Exam/Review of Systems Vital Signs Vitals Vital Signs Date Time Temp Pulse Resp B/P Pulse Ox O2 Delivery O2 Flow Rate FiO2 06/16/17 12:10 97.5 56 16 132/81 100 06/16/17 11:20 30 06/15/17 04:00 Mechanical Ventilator Intake and Output 06/15/17 06/15/17 06/16/17 15:00 23:00 07:00 Intake Total 480 ml Output Total 650 ml Balance -170 ml Results Result Diagram: 06/16/17 0607 06/16/17 0604 Results 24 hrs Laboratory Tests Test 06/15/17 19:09 06/15/17 21:00 06/16/17 01:40 06/16/17 05:49 Bedside Glucose 126 130 135 117 Test 06/16/17 06:04 06/16/17 06:07 06/16/17 09:11 Sodium Level 156 H Potassium Level 3.6 Chloride Level 107 Carbon Dioxide Level 37 H Anion Gap 16 Blood Urea Nitrogen 59 H Creatinine 2.42 H Glucose Level 111 Calcium Level 9.1 Phosphorus Level 3.0 Magnesium Level 2.5 White Blood Count 6.5 Red Blood Count 3.09 L Hemoglobin 9.3 L Hematocrit 31.5 L Mean Corpuscular Volume 101.9 H Mean Corpuscular Hemoglobin 30.1 Mean Corpuscular Hemoglobin Concent 29.5 L Red Cell Distribution Width 22.3 H Platelet Count 78 L Mean Platelet Volume 11.8 H Neutrophils % 77.4 H Lymphocytes % 10.8 L Monocytes % 4.2 Eosinophils % 7.1 H Basophils % 0.3 Nucleated Red Blood Cells % 0.0 Neutrophils # (Manual) 5.0 Lymphocytes # 0.7 L Monocytes # 0.3 Eosinophils # 0.5 Basophils # 0.0 Nucleated Red Blood Cells # 0.0 Bedside Glucose 103 Medications Medications Current Medications Bisacodyl (Dulcolax Supp) 10 mg Q48H [place] Last administered on 06/15/17 17:51; Admin Dose 10 MG; Start 05/06/17 at 17:00 Sodium Biphosphate/ Sodium Phosphate (Fleet Enema Pediatric) 118 ml Q72H PRN [place] CONSTIPATION; Start 05/06/17 at 17:00 Citric Acid/ Sodium Citrate (Bicitra) 30 ml BID PO Last administered on 20:58; Admin Dose 30 ML; Start 05/06/17 at 21:00 Nystatin (Nystatin Powder) 1 applic BID TOP Last administered on 06/16/17 09: 09; Admin Dose 1 APPLIC; Start 05/09/17 at 21:00 Collagenase (Santyl) 1 applic DAILY TOP Last administered on 06/16/17 09:09; Admin Dose 1 APPLIC; Start 05/09/17 at 15:00 Collagenase (Santyl) 1 applic PRN PRN TOP WOUND CARE Last administered on 02:33; Admin Dose 1 APPLIC; Start 05/09/17 at 14:00 Miscellaneous Information 1 ea NOTE XX ; Start 05/11/17 at 08:00 Glucose (Glutose) 15 gm Q15M PRN PO DECREASED GLUCOSE; Start 05/11/17 at 08:00 Glucose (Glutose) 22.5 gm Q15M PRN PO DECREASED GLUCOSE; Start 05/11/17 at 08: 00 Dextrose (D50w Syringe) 25 ml Q15M PRN IV DECREASED GLUCOSE Last administered on 06/10/17 09:24; Admin Dose 25 ML; Start 05/11/17 at 08:00 Dextrose (D50w Syringe) 50 ml Q15M PRN IV DECREASED GLUCOSE Last administered on 06/10/17 16:12; Admin Dose 50 ML; Start 05/11/17 at 08:00 Glucagon (Glucagen) 1 mg Q15M PRN IM DECREASED GLUCOSE Last administered on 12:10; Admin Dose 1 MG; Start 05/11/17 at 08:00 Glucose (Glutose) 15 gm Q15M PRN BUCCAL DECREASED GLUCOSE Last administered on 06/10/17 09:49; Admin Dose 15 GM; Start 05/11/17 at 08:00 Epoetin Vasyl (Epogen (Esrd)) 10,000 units MoWeFr@17 [place] Last administered on 17:48; Admin Dose 10,000 UNITS; Start 05/13/17 at 17:00 IV Flush (NS 10 ml) 10 ml PRN PRN IV IV PROTOCOL; Start 05/15/17 at 17:30 Insulin Aspart NOVOLOG *MILD* ALGORI... Q4 [place] Last administered on 06/01/17 21 :32; Admin Dose 1 UNIT; Start 05/26/17 at 09:00 Total Parenteral Nutrition (Tpn) 1,000 ml @ 40 mls/hr Q24H IV Last administered on 06/16/17 09:14; Admin Dose 40 MLS/HR; Start 05/27/17 at 14:00 Famotidine (Pepcid Iv) 20 mg DAILY IV Last administered on 06/16/17 09:09; Admin Dose 20 MG; Start 05/29/17 at 09:00 Hydrocortisone (Solu-Cortef) 10 mg Q8 IV Last administered on 06/16/17 05:53; Admin Dose 10 MG; Start 06/06/17 at 14:00 IV Flush (NS 10 ml) 10 ml PRN PRN IV IV PROTOCOL; Start 06/10/17 at 18:00 Furosemide (Lasix) 40 mg DAILY IV Last administered on 06/16/17 09:09; Admin Dose 40 MG; Start 06/14/17 at 09:00 NOMI VELASCO NP Jun 16, 2017 13:07
--- NOTE | 2017-06-16 13:58 | CONS ---
Date/Time of Note Date/Time of Note DATE: 06/16/17 TIME: 13:57 Consult Date/Type/Reason Admit Date/Time May 06, 2017 at 16:34 Initial Consult Date 05/22/17 Type of Consultation: CARDIOGLOY Ordering Provider: OSMAR MONTAGUE DO Subjective CARDIOLOGY FOLLOW UP NOTE: Discussed with staff and rhythm was reviewed. Pt remains in NSR with P afib. pt remains NONVERBAL ON Vent OBJECTIVE: General: no acute distress. s/p trach on vent. HEENT: NC/AT. NECK: NO JVD. no stridor. S/P trach on vent CV: irregularly irregular. systolic murmur; no gallop or rubs. PULM: no wheezing anteriorly GI: SOFT, NT, ND, no rebound or guarding s/p dressing at the site of previous G tube Extremity: + B/L LE and UE edema. no clubbing. neuro: opens her eyes to painful stimuli. does not follow commands Psych: calm rectal: deferred Objective Vital Signs Date Time Temp Pulse Resp B/P Pulse Ox O2 Delivery O2 Flow Rate FiO2 06/16/17 13:00 69 16 97 30 06/16/17 12:10 97.5 132/81 06/15/17 04:00 Mechanical Ventilator Intake and Output 06/15/17 06/15/17 06/16/17 15:00 23:00 07:00 Intake Total 480 ml Output Total 650 ml Balance -170 ml Results/Medications Result Diagram: 06/16/17 0607 06/16/17 0604 Results 24 hrs Laboratory Tests Test 06/15/17 19:09 06/15/17 21:00 06/16/17 01:40 06/16/17 05:49 Bedside Glucose 126 130 135 117 Test 06/16/17 06:04 06/16/17 06:07 06/16/17 09:11 06/16/17 13:34 Sodium Level 156 H Potassium Level 3.6 Chloride Level 107 Carbon Dioxide Level 37 H Anion Gap 16 Blood Urea Nitrogen 59 H Creatinine 2.42 H Glucose Level 111 Calcium Level 9.1 Phosphorus Level 3.0 Magnesium Level 2.5 White Blood Count 6.5 Red Blood Count 3.09 L Hemoglobin 9.3 L Hematocrit 31.5 L Mean Corpuscular Volume 101.9 H Mean Corpuscular Hemoglobin 30.1 Mean Corpuscular Hemoglobin Concent 29.5 L Red Cell Distribution Width 22.3 H Platelet Count 78 L Mean Platelet Volume 11.8 H Neutrophils % 77.4 H Lymphocytes % 10.8 L Monocytes % 4.2 Eosinophils % 7.1 H Basophils % 0.3 Nucleated Red Blood Cells % 0.0 Neutrophils # (Manual) 5.0 Lymphocytes # 0.7 L Monocytes # 0.3 Eosinophils # 0.5 Basophils # 0.0 Nucleated Red Blood Cells # 0.0 Bedside Glucose 103 145 Medications Current Medications Bisacodyl (Dulcolax Supp) 10 mg Q48H [place] Last administered on 06/15/17 17:51; Admin Dose 10 MG; Start 05/06/17 at 17:00 Sodium Biphosphate/ Sodium Phosphate (Fleet Enema Pediatric) 118 ml Q72H PRN [place] CONSTIPATION; Start 05/06/17 at 17:00 Citric Acid/ Sodium Citrate (Bicitra) 30 ml BID PO Last administered on 20:58; Admin Dose 30 ML; Start 05/06/17 at 21:00 Nystatin (Nystatin Powder) 1 applic BID TOP Last administered on 06/16/17 09: 09; Admin Dose 1 APPLIC; Start 05/09/17 at 21:00 Collagenase (Santyl) 1 applic DAILY TOP Last administered on 06/16/17 09:09; Admin Dose 1 APPLIC; Start 05/09/17 at 15:00 Collagenase (Santyl) 1 applic PRN PRN TOP WOUND CARE Last administered on 02:33; Admin Dose 1 APPLIC; Start 05/09/17 at 14:00 Miscellaneous Information 1 ea NOTE XX ; Start 05/11/17 at 08:00 Glucose (Glutose) 15 gm Q15M PRN PO DECREASED GLUCOSE; Start 05/11/17 at 08:00 Glucose (Glutose) 22.5 gm Q15M PRN PO DECREASED GLUCOSE; Start 05/11/17 at 08: 00 Dextrose (D50w Syringe) 25 ml Q15M PRN IV DECREASED GLUCOSE Last administered on 06/10/17 09:24; Admin Dose 25 ML; Start 05/11/17 at 08:00 Dextrose (D50w Syringe) 50 ml Q15M PRN IV DECREASED GLUCOSE Last administered on 06/10/17 16:12; Admin Dose 50 ML; Start 05/11/17 at 08:00 Glucagon (Glucagen) 1 mg Q15M PRN IM DECREASED GLUCOSE Last administered on 12:10; Admin Dose 1 MG; Start 05/11/17 at 08:00 Glucose (Glutose) 15 gm Q15M PRN BUCCAL DECREASED GLUCOSE Last administered on 06/10/17 09:49; Admin Dose 15 GM; Start 05/11/17 at 08:00 Epoetin Vasyl (Epogen (Esrd)) 10,000 units MoWeFr@17 SC Last administered on 17:48; Admin Dose 10,000 UNITS; Start 05/13/17 at 17:00 IV Flush (NS 10 ml) 10 ml PRN PRN IV IV PROTOCOL; Start 05/15/17 at 17:30 Insulin Aspart NOVOLOG *MILD* ALGORI... Q4 SC Last administered on 06/16/17 13 :35; Admin Dose 1 UNIT; Start 05/26/17 at 09:00 Total Parenteral Nutrition (Tpn) 1,000 ml @ 40 mls/hr Q24H IV Last administered on 06/16/17 09:14; Admin Dose 40 MLS/HR; Start 05/27/17 at 14:00 Famotidine (Pepcid Iv) 20 mg DAILY IV Last administered on 06/16/17 09:09; Admin Dose 20 MG; Start 05/29/17 at 09:00 Hydrocortisone (Solu-Cortef) 10 mg Q8 IV Last administered on 06/16/17 13:28; Admin Dose 10 MG; Start 06/06/17 at 14:00 IV Flush (NS 10 ml) 10 ml PRN PRN IV IV PROTOCOL; Start 06/10/17 at 18:00 Furosemide (Lasix) 40 mg DAILY IV Last administered on 06/16/17 09:09; Admin Dose 40 MG; Start 06/14/17 at 09:00 Assessment/Plan Chief Complaint/Hosp Course 1. hypoxemic hypercapnic resp failure: s/p trach 2. Pafib; 3. hx HTN: 4. encephalopathy 5. renal failure: f/u with nephrology 6. dysphagia 7. G tube malfunction/ infection: unable to repair by GI. 8. GI bleed 9. severe anemia 10. malnutrition 11. anasarca and fluid overload. cont resp care nutritional support. correct lytes prn off of PLAVIX DUE TO ANEMIA/ BLEEDING. F/U with GI and surgery rec. CODE STATUS IS chemical code only now. family is considering palliative care. THANK YOU. Problems: MILAGROS MUNOZ MD Jun 16, 2017 13:58
--- NOTE | 2017-06-16 14:19 | CONS ---
Date/Time of Note Date/Time of Note DATE: 06/16/17 TIME: 14:18 Assessment/Plan Assessment/Plan Chief Complaint/Hosp Course This 69-year-old female with a history of CVA vent dependent respiratory failure , was brought to the emergency room for the dislodgment of the GJ tube. Patient is nonverbal and no information can be obtained. No GI bleeding no chest pain no shortness of breath. Problems: Additional Assessment/Plan Additional Assessment/Plan Additional Assessment/Plan 1. Dislodged GJ tube accidentally 2. Vent dependent respiratory failure 3. Chronic encephalopathy 4. Renal failure 5. Peripheral vascular disease 6. Anemia, secondary to chronic disease no evidence of active bleeding 7. 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 Hypotension, corrected patient is off dopamine for more than 24 hours 9. Decubitus ulcer 10. Workup for adrenal insufficiency, patient is on steroid now and off dopamine 11. Status post sepsis 12. Morbid obesity, patient has definitely gained a lot of weight around the abdominal girth 13. Anasarca Plan fistula is closing discontinue intralipid Reduce TPN to 40 cc per Discontinue D10 Hopefully we will be able to feed her through the NG tube within the next few days when the stoma is completely closed. Continue present care Consultation Date/Type/Reason Admit Date/Time May 06, 2017 at 16:34 Type of Consultation: CARDIOGLOY Referring Provider: OSMAR MONTAGUE DO 24 HR Interval Summary Subjective hx not possible: pt non-verbal Constitutional: no complaints Exam/Review of Systems Vital Signs Vitals Vital Signs Date Time Temp Pulse Resp B/P Pulse Ox O2 Delivery O2 Flow Rate FiO2 06/16/17 13:00 69 16 97 30 06/16/17 12:10 97.5 132/81 06/15/17 04:00 Mechanical Ventilator Intake and Output 06/15/17 06/15/17 06/16/17 15:00 23:00 07:00 Intake Total 480 ml Output Total 650 ml Balance -170 ml Exam ENMT: intubated Cardiovascular: nl pulses, regular rate and rhythm Gastrointestinal: nl liver, spleen, non-tender, other (There is some discharge from the gastrocutaneous fistula but it is closing), soft Extremities: edema Neurological: unresponsive Results Result Diagram: 06/16/17 0607 06/16/17 0604 Results 24 hrs Laboratory Tests Test 8/26/17 19:09 06/15/17 21:00 06/16/17 01:40 06/16/17 05:49 Bedside Glucose 126 130 135 117 Test 06/16/17 06:04 06/16/17 06:07 06/16/17 09:11 06/16/17 13:34 Sodium Level 156 H Potassium Level 3.6 Chloride Level 107 Carbon Dioxide Level 37 H Anion Gap 16 Blood Urea Nitrogen 59 H Creatinine 2.42 H Glucose Level 111 Calcium Level 9.1 Phosphorus Level 3.0 Magnesium Level 2.5 White Blood Count 6.5 Red Blood Count 3.09 L Hemoglobin 9.3 L Hematocrit 31.5 L Mean Corpuscular Volume 101.9 H Mean Corpuscular Hemoglobin 30.1 Mean Corpuscular Hemoglobin Concent 29.5 L Red Cell Distribution Width 22.3 H Platelet Count 78 L Mean Platelet Volume 11.8 H Neutrophils % 77.4 H Lymphocytes % 10.8 L Monocytes % 4.2 Eosinophils % 7.1 H Basophils % 0.3 Nucleated Red Blood Cells % 0.0 Neutrophils # (Manual) 5.0 Lymphocytes # 0.7 L Monocytes # 0.3 Eosinophils # 0.5 Basophils # 0.0 Nucleated Red Blood Cells # 0.0 Bedside Glucose 103 145 Medications Medications Current Medications Bisacodyl (Dulcolax Supp) 10 mg Q48H [place] Last administered on 06/15/17 17:51; Admin Dose 10 MG; Start 05/06/17 at 17:00 Sodium Biphosphate/ Sodium Phosphate (Fleet Enema Pediatric) 118 ml Q72H PRN [place] CONSTIPATION; Start 05/06/17 at 17:00 Citric Acid/ Sodium Citrate (Bicitra) 30 ml BID PO Last administered on 20:58; Admin Dose 30 ML; Start 05/06/17 at 21:00 Nystatin (Nystatin Powder) 1 applic BID TOP Last administered on 06/16/17 09: 09; Admin Dose 1 APPLIC; Start 05/09/17 at 21:00 Collagenase (Santyl) 1 applic DAILY TOP Last administered on 06/16/17 09:09; Admin Dose 1 APPLIC; Start 05/09/17 at 15:00 Collagenase (Santyl) 1 applic PRN PRN TOP WOUND CARE Last administered on 02:33; Admin Dose 1 APPLIC; Start 05/09/17 at 14:00 Miscellaneous Information 1 ea NOTE XX ; Start 05/11/17 at 08:00 Glucose (Glutose) 15 gm Q15M PRN PO DECREASED GLUCOSE; Start 05/11/17 at 08:00 Glucose (Glutose) 22.5 gm Q15M PRN PO DECREASED GLUCOSE; Start 05/11/17 at 08: 00 Dextrose (D50w Syringe) 25 ml Q15M PRN IV DECREASED GLUCOSE Last administered on 06/10/17 09:24; Admin Dose 25 ML; Start 05/11/17 at 08:00 Dextrose (D50w Syringe) 50 ml Q15M PRN IV DECREASED GLUCOSE Last administered on 06/10/17 16:12; Admin Dose 50 ML; Start 05/11/17 at 08:00 Glucagon (Glucagen) 1 mg Q15M PRN IM DECREASED GLUCOSE Last administered on 12:10; Admin Dose 1 MG; Start 05/11/17 at 08:00 Glucose (Glutose) 15 gm Q15M PRN BUCCAL DECREASED GLUCOSE Last administered on 06/10/17 09:49; Admin Dose 15 GM; Start 05/11/17 at 08:00 Epoetin Vasyl (Epogen (Esrd)) 10,000 units MoWeFr@17 SC Last administered on 17:48; Admin Dose 10,000 UNITS; Start 05/13/17 at 17:00 IV Flush (NS 10 ml) 10 ml PRN PRN IV IV PROTOCOL; Start 05/15/17 at 17:30 Insulin Aspart NOVOLOG *MILD* ALGORI... Q4 SC Last administered on 06/16/17 13 :35; Admin Dose 1 UNIT; Start 05/26/17 at 09:00 Total Parenteral Nutrition (Tpn) 1,000 ml @ 40 mls/hr Q24H IV Last administered on 06/16/17 09:14; Admin Dose 40 MLS/HR; Start 05/27/17 at 14:00 Famotidine (Pepcid Iv) 20 mg DAILY IV Last administered on 06/16/17 09:09; Admin Dose 20 MG; Start 05/29/17 at 09:00 Hydrocortisone (Solu-Cortef) 10 mg Q8 IV Last administered on 06/16/17 13:28; Admin Dose 10 MG; Start 06/06/17 at 14:00 IV Flush (NS 10 ml) 10 ml PRN PRN IV IV PROTOCOL; Start 06/10/17 at 18:00 Furosemide (Lasix) 40 mg DAILY IV Last administered on 06/16/17 09:09; Admin Dose 40 MG; Start 06/14/17 at 09:00 SYLWIA SY MD Jun 16, 2017 14:19
--- NOTE | 2017-06-16 16:09 | PN ---
Date/Time of Note Date/Time of Note DATE: 06/16/17 TIME: 16:05 Assessment/Plan Lines/Catheters IV Catheter Type (from Nrs): PICC Line Collazo in Place (from Nrs): Yes Assessment/Plan Chief Complaint/Hosp Course 1. G-tube dislodgement: replaced with gjtube by GI, continued yellow drainage peristomal; gj tube replacement attempt-unable due to too large of an opening; Now chemical code; currently on tpn; bleeding from G[facility] -hospice/palliative is the best option for this patient- patient being transitioned to comfort/palliative care upon discharge to snf 2. Septic shock: multifactorial: 2/2: pneumonia + cellulitis + wounds; persistent, off pressors again, episodes of hypothermia and hypoglycemia -supportive 3. Respiratory failure with trach: PNA with pulm edema; comfortable on vent -pulmonary toilet -supportive 4.STARLA with CKD; anuric currently -supportive 5. Normocytic anemia: previous coffee ground drainage peristoma;no acute bleed noted; s/p transfusion; stable h/h -monitor and transfuse as needed 6. CHF -medical management 7. Diabetes with hypoglycemia -medical management 8. Acute encephalopathy with history of advanced dementia; unchanged neurologically -supportive 9. Decubitus wound. -continue wound care. 10. Peristomal cellulitis 2/2 #1; +pseudomonas; improving -local care 11. Pancytopenia -supportive 12. Hypothermia: increasing coagulopathy with noted GCF bleed s/p hemostasis with chemical cautery by Dr. Blackburn Patient seen and examined in collaboration with Dr. Meliton Blackburn. Thank you. Problems: Subjective 24 Hr Interval Summary No acute changes. Continues to be nonverbal, nonresponsive. Eyes open but without purposeful tracking or movement. Comfortable on vent. No edie bleed noted from GCF. No fevers, chills, n/v/d/dysuria, sz. Exam/Review of Systems Vital Signs Vitals Vital Signs Date Time Temp Pulse Resp B/P Pulse Ox O2 Delivery O2 Flow Rate FiO2 06/16/17 15:15 72 16 98 30 06/16/17 12:10 97.5 132/81 06/15/17 04:00 Mechanical Ventilator Intake and Output 06/15/17 06/15/17 06/16/17 15:00 23:00 07:00 Intake Total 480 ml Output Total 650 ml Balance -170 ml Exam Free Text/Dictation Constitutional: non-verbal, awake, nonresponsive, ill-appearing. No oriented Psych: withdraws from pain Head: atraumatic, normocephalic Eyes: nl sclera ENMT: mucosa pink and moist, missing teeth Neck: non-tender, other (trach), supple Respiratory: diminished Cardiovascular: edema generalized Gastrointestinal: distended (mod), other (stoma without overt bleeding), soft, nontender Musculoskeletal: No muscle tone Extremities: edema worsened Neurological: No nl mental status, No nl speech Skin: other (abdominal/peristomal/breast fold pink), cool skin Results Result Diagram: 06/16/17 0607 06/16/17 0604 SHADI CALDERON NP Jun 16, 2017 16:09
--- NOTE | 2017-06-16 18:06 | CONS ---
Date/Time of Note Date/Time of Note DATE: 06/16/17 TIME: 18:04 Consult Date/Type/Reason Admit Date/Time May 06, 2017 at 16:34 Initial Consult Date 05/22/17 Type of Consultation: Pulm Ordering Provider: OSMAR MONTAGUE DO Subjective Increased peak pressures on vent. Abdominal distention. Objective Vital Signs Date Time Temp Pulse Resp B/P Pulse Ox O2 Delivery O2 Flow Rate FiO2 06/16/17 17:20 62 16 98 30 06/16/17 16:05 97.5 139/87 06/15/17 04:00 Mechanical Ventilator Intake and Output 06/15/17 06/15/17 06/16/17 15:00 23:00 07:00 Intake Total 480 ml Output Total 650 ml Balance -170 ml Exam HEENT: Neck supple; no JVD; no LAD; + trach CVS: RRR, S1 and S2 CHEST: Clear ABD: Distended, NT, + BS EXT: No c/c + edema Results/Medications Result Diagram: 06/16/17 0607 06/16/17 0604 Results 24 hrs Laboratory Tests Test 06/15/17 19:09 06/15/17 21:00 06/16/17 01:40 06/16/17 05:49 Bedside Glucose 126 130 135 117 Test 06/16/17 06:04 06/16/17 06:07 06/16/17 09:11 06/16/17 13:34 Sodium Level 156 H Potassium Level 3.6 Chloride Level 107 Carbon Dioxide Level 37 H Anion Gap 16 Blood Urea Nitrogen 59 H Creatinine 2.42 H Glucose Level 111 Calcium Level 9.1 Phosphorus Level 3.0 Magnesium Level 2.5 White Blood Count 6.5 Red Blood Count 3.09 L Hemoglobin 9.3 L Hematocrit 31.5 L Mean Corpuscular Volume 101.9 H Mean Corpuscular Hemoglobin 30.1 Mean Corpuscular Hemoglobin Concent 29.5 L Red Cell Distribution Width 22.3 H Platelet Count 78 L Mean Platelet Volume 11.8 H Neutrophils % 77.4 H Lymphocytes % 10.8 L Monocytes % 4.2 Eosinophils % 7.1 H Basophils % 0.3 Nucleated Red Blood Cells % 0.0 Neutrophils # (Manual) 5.0 Lymphocytes # 0.7 L Monocytes # 0.3 Eosinophils # 0.5 Basophils # 0.0 Nucleated Red Blood Cells # 0.0 Bedside Glucose 103 145 Medications Current Medications Bisacodyl (Dulcolax Supp) 10 mg Q48H [place] Last administered on 06/15/17 17:51; Admin Dose 10 MG; Start 05/06/17 at 17:00 Sodium Biphosphate/ Sodium Phosphate (Fleet Enema Pediatric) 118 ml Q72H PRN [place] CONSTIPATION; Start 05/06/17 at 17:00 Citric Acid/ Sodium Citrate (Bicitra) 30 ml BID PO Last administered on 20:58; Admin Dose 30 ML; Start 05/06/17 at 21:00 Nystatin (Nystatin Powder) 1 applic BID TOP Last administered on 06/16/17 09: 09; Admin Dose 1 APPLIC; Start 05/09/17 at 21:00 Collagenase (Santyl) 1 applic DAILY TOP Last administered on 06/16/17 09:09; Admin Dose 1 APPLIC; Start 05/09/17 at 15:00 Collagenase (Santyl) 1 applic PRN PRN TOP WOUND CARE Last administered on 02:33; Admin Dose 1 APPLIC; Start 05/09/17 at 14:00 Miscellaneous Information 1 ea NOTE XX ; Start 05/11/17 at 08:00 Glucose (Glutose) 15 gm Q15M PRN PO DECREASED GLUCOSE; Start 05/11/17 at 08:00 Glucose (Glutose) 22.5 gm Q15M PRN PO DECREASED GLUCOSE; Start 05/11/17 at 08: 00 Dextrose (D50w Syringe) 25 ml Q15M PRN IV DECREASED GLUCOSE Last administered on 06/10/17 09:24; Admin Dose 25 ML; Start 05/11/17 at 08:00 Dextrose (D50w Syringe) 50 ml Q15M PRN IV DECREASED GLUCOSE Last administered on 06/10/17 16:12; Admin Dose 50 ML; Start 05/11/17 at 08:00 Glucagon (Glucagen) 1 mg Q15M PRN IM DECREASED GLUCOSE Last administered on 12:10; Admin Dose 1 MG; Start 05/11/17 at 08:00 Glucose (Glutose) 15 gm Q15M PRN BUCCAL DECREASED GLUCOSE Last administered on 06/10/17 09:49; Admin Dose 15 GM; Start 05/11/17 at 08:00 Epoetin Vasyl (Epogen (Esrd)) 10,000 units MoWeFr@17 SC Last administered on 17:48; Admin Dose 10,000 UNITS; Start 05/13/17 at 17:00 IV Flush (NS 10 ml) 10 ml PRN PRN IV IV PROTOCOL; Start 05/15/17 at 17:30 Insulin Aspart NOVOLOG *MILD* ALGORI... Q4 SC Last administered on 06/16/17 13 :35; Admin Dose 1 UNIT; Start 05/26/17 at 09:00 Total Parenteral Nutrition (Tpn) 1,000 ml @ 40 mls/hr Q24H IV Last administered on 06/16/17 09:14; Admin Dose 40 MLS/HR; Start 05/27/17 at 14:00 Famotidine (Pepcid Iv) 20 mg DAILY IV Last administered on 06/16/17 09:09; Admin Dose 20 MG; Start 05/29/17 at 09:00 Hydrocortisone (Solu-Cortef) 10 mg Q8 IV Last administered on 06/16/17 13:28; Admin Dose 10 MG; Start 06/06/17 at 14:00 IV Flush (NS 10 ml) 10 ml PRN PRN IV IV PROTOCOL; Start 06/10/17 at 18:00 Furosemide (Lasix) 40 mg DAILY IV Last administered on 06/16/17 09:09; Admin Dose 40 MG; Start 06/14/17 at 09:00 Assessment/Plan Additional Assessment/Plan IMP: 1. s/p Septic shock 2. Chronic respiratory failure. 3. Advanced dementia. 4. Chronic renal insufficiency. 5. Hyponatremia. 6. Thrombocytopenia RECS: 1. Vent support--> lower Vt 400 to lower Pplat; increase rate 20 2. TFs 3. BDs 4. Am CXR/ABG PINKY GHOSH MD Jun 16, 2017 18:06
[2017-06-17] VITALS (24 sets, daily range): BP systolic 111–164; BP diastolic 59–90; PULSE 54–63; RESP 18–20
[2017-06-17] MEDS: INSULIN ASPART [NOVOLOG] 3 ML PEN SC SCH ×6 (01:00→21:00)
[2017-06-17 05:26] LABS: AADO2 Arterial 60.3 mmHg (7.0-24.0); Allen Test ACCEPTAB; Arterial Base Excess 8.9 mmol/L (-3.0-3); Arterial COHb 1.2 % (0.0-3.0); Arterial Fraction of Oxyhgb 95.9 % (93.0-99.0); Arterial HCO3 34.5 mmol/L (22.0-26.0); Arterial MetHb 0.1 % (0.0-1.5); Arterial Total Hemglobin 13.4 g/dl (12.0-18.0); MODE VENT - AC
[2017-06-17] MEDS: HYDROCORTISONE 100 MG INJ IV SCH ×3 (06:02→21:51)
[2017-06-17] MEDS: TPN 1,000 ML IV SCH (06:50)
[2017-06-17 07:07] LABS: ABNORMAL IP MESSAGE 1; BASOPHILS % 0.2 % (0.0-2.0); EOSINOPHILS # 0.4 10^3/ul (0.0-0.5); EOSINOPHILS % 7.6 % (0.0-7.0); HEMATOCRIT 31.9 % (37.0-47.0); HEMOGLOBIN 9.4 g/dl (12.0-16.0); LYMPHOCYTES # 0.7 10^3/ul (0.8-2.9); MEAN CORPUSCULAR HEMOGLOBIN 30.1 pg (29.0-33.0); MEAN CORPUSCULAR HGB CONC 29.5 g/dl (32.0-37.0); MEAN CORPUSCULAR VOLUME 102.2 fl (82.0-101.0); MEAN PLATELET VOLUME 12.1 fl (7.4-10.4); MONOCYTE # 0.2 10^3/ul (0.3-0.9); MONOCYTES % 4.4 % (0.0-11.0); NEUTROPHILS % 75.6 % (39.0-77.0); RED BLOOD COUNT 3.12 10^6/ul (4.20-5.40); WHITE BLOOD COUNT 5.4 10^3/ul (4.8-10.8)
[2017-06-17 07:18] LABS: PLATELET COUNT 75 10^3/UL (140-415); POSITIVE DIFF @See below
[2017-06-17 07:27] LABS: CALCIUM 9.4 mg/dl (8.4-10.2); CREATININE 2.46 mg/dl (0.44-1.00); MAGNESIUM 2.5 mg/dl (1.7-2.5); PHOSPHORUS 3.1 mg/dl (2.5-4.9); POTASSIUM 3.8 mmol/L (3.5-5.1)
[2017-06-17] MEDS: CITRIC ACID/NA CITRATE 30 ML CUP PO SCH ×2 (09:00→20:27)
--- NOTE | 2017-06-17 09:23 | RADRPT ---
PROCEDURE: Chest 1 views. CLINICAL INDICATION: Shortness of breath. TECHNIQUE: AP views of the chest was obtained. COMPARISON: June 10, 2017 FINDINGS: The heart is large. Tracheostomy tube is stable and appears in grossly appropriate location. Right- sided PICC line is unchanged. Central pulmonary vascular congestion and interstitial prominence is seen in both lungs. Retrocardiac opacity is stable. Patchy right lower lung infiltrates, combined small pleural effusion are unchanged. Osseous structures are intact. IMPRESSION: Cardiomegaly . Stable central pulmonary vascular congestion and mild interstitial prominence in both lungs. Stable retrocardiac opacity that may reflect left lower lobe atelectasis or infiltrate combined with small pleural effusion. Stable right lower lung infiltrates and small right pleural effusion. RPTAT: AA .Braden Armenta MD, MD Date Time Electronically viewed and signed by .Braden Armenta MD, MD on 06/17/2017 09:23 .P/
[2017-06-17] MEDS: FAMOTIDINE 20 MG INJ IV SCH (09:39)
[2017-06-17] MEDS: NYSTATIN 30 GM POWDER BTL TOP SCH ×2 (09:42→21:47)
[2017-06-17] MEDS: FUROSEMIDE 40 MG INJ IV SCH (09:42)
[2017-06-17] MEDS: COLLAGENASE 30 GM TUBE TOP SCH (09:43)
--- NOTE | 2017-06-17 09:49 | PN ---
DATE: 06/17/2017 SUBJECTIVE DATA: The patient is stable. No events overnight. No fevers, chills, nausea, vomiting. The patient is pending transfer back to his senior care facility. OBJECTIVE DATA: VITAL SIGNS: Blood pressure is 129/64, respirations 20, pulse 63, temperature 98.4. HEENT: Head is normocephalic. NECK: Supple. HEART: Regular rate. LUNGS: Diminished breath sounds base. ABDOMEN: Soft, nontender to palpation. Positive gastrocutaneous fistula. EXTREMITIES: Negative for clubbing, cyanosis. Positive edema. DERMATOLOGIC: No rashes. MUSCULOSKELETAL: Positive wounds. NEUROLOGIC: No change in exam. MEDICATIONS: Reviewed. LABORATORY AND DIAGNOSTIC DATA: Shows white count 5.4, hemoglobin 9.4, hematocrit 31.9, platelet count is 75. Sodium 150, potassium 3.9, chloride 106, BUN 62, creatinine 2.46. ASSESSMENT AND PLAN: 1. Sepsis status post shock. Etiology is multifactorial. The patient has completed antibiotic course. 2. Anemia. Monitor H and H levels. Will give Epogen as needed. 3. Nonoliguric acute kidney injury on top of chronic kidney disease stage 4. Etiology secondary to acute tubular necrosis. Renal function has been fluctuating, but overall stable. 4. Hyponatremia. Continue hypotonic fluid. Continue total parenteral nutrition. 5. Volume overload secondary to acute kidney injury and congestive heart failure. Continue current diuretic regimen. 6. Acute encephalopathy and advanced dementia. Etiology is toxic metabolic. 7. Diabetes. Continue Accu-Cheks and sliding scale. 8. Nutrition. Continue total parenteral nutrition. 9. 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 10. Decubitus wound. Continue wound care. 11. Thrombocytopenia. Etiology is unclear. Continue to monitor. Possibly medication-related. 12. Gastrointestinal and deep venous thrombosis prophylaxis. Patient is pending transfer back to subacute facility when a bed is available. Dictated By: Brendan Rosas DO /junie/josie /Document#: [id number]
--- NOTE | 2017-06-17 10:17 | PN ---
Date/Time of Note Date/Time of Note DATE: 06/17/17 TIME: 10:14 Assessment/Plan Lines/Catheters IV Catheter Type (from Nrs): PICC Line Collazo in Place (from Nrs): Yes Assessment/Plan Chief Complaint/Hosp Course 1. G-tube dislodgement: replaced with gjtube by GI, continued yellow drainage peristomal; gj tube replacement attempt-unable due to too large of an opening; Now chemical code; currently on tpn; bleeding from GCF -hospice/palliative is the best option for this patient- patient being transitioned to comfort/palliative care upon discharge to snf; pending snf transfer 2. Septic shock: multifactorial: 2/2: pneumonia + cellulitis + wounds; persistent, off pressors again, episodes of hypothermia and hypoglycemia -supportive 3. Respiratory failure with trach: PNA with pulm edema; comfortable on vent -pulmonary toilet -supportive 4.STARLA with CKD; anuric currently -supportive 5. Normocytic anemia: previous coffee ground drainage peristoma;no acute bleed noted; s/p transfusion; stable h/h -monitor and transfuse as needed 6. CHF -medical management 7. Diabetes with hypoglycemia -medical management 8. Acute encephalopathy with history of advanced dementia; unchanged neurologically -supportive 9. Decubitus wound. -continue wound care. 10. Peristomal cellulitis 2/2 #1; +pseudomonas; improving -local care 11. Pancytopenia -supportive 12. Hypothermia: increasing coagulopathy with noted GCF bleed s/p hemostasis with chemical cautery by Dr. Blackburn Patient seen and examined in collaboration with Dr. Meliton Blackburn. Thank you. Problems: Subjective 24 Hr Interval Summary No change in mentation. Obtunded. Does not withdraw from painful stimuli. appears comfortable on vent. No bleeding from GCF site. No sob, congested cough , vomiting, diarrhea, fevers, chills, sz, rash. Exam/Review of Systems Vital Signs Vitals Vital Signs Date Time Temp Pulse Resp B/P Pulse Ox O2 Delivery O2 Flow Rate FiO2 06/17/17 09:43 57 128/62 06/17/17 04:54 20 98 30 06/17/17 03:45 98.4 06/15/17 04:00 Mechanical Ventilator Intake and Output 06/16/17 06/16/17 06/17/17 15:00 23:00 07:00 Intake Total 1000 ml Output Total 600 ml Balance 400 ml Exam Free Text/Dictation Constitutional: non-verbal, awake, nonresponsive, ill-appearing. No oriented Psych: withdraws from pain Head: atraumatic, normocephalic Eyes: nl sclera ENMT: mucosa pink and moist, missing teeth Neck: non-tender, other (trach), supple Respiratory: diminished Cardiovascular: edema generalized Gastrointestinal: distended (mod), other (stoma without overt bleeding), soft, nontender Musculoskeletal: No muscle tone Extremities: edema worsened Neurological: No nl mental status, No nl speech Skin: other (abdominal/peristomal/breast fold pink), cool skin, dry Results Result Diagram: 06/17/17 0610 06/17/17 0610 SHADI CALDERON NP Jun 17, 2017 10:17
--- NOTE | 2017-06-17 10:45 | CONS ---
Date/Time of Note Date/Time of Note DATE: 06/17/17 TIME: 10:43 Assessment/Plan Assessment/Plan Additional Assessment/Plan Chest x-ray was reviewed from today which is showing minimal interstitial prominence bilaterally. There has been overall improvement in bilateral pneumonia. Ventilator setting; AC of 20, tidal volume 400, PEEP of 5, 30% FiO2. Assessment and recommendations; 1. Patient admitted for severe sepsis from pneumonia with significant overall improvement. Off antibiotics now. 2. Chronic renal insufficiency. 3. Thrombocytopenia. 4. Chronic respiratory failure with advanced dementia. 5. CHF. Continue current supportive care. Prognosis is very poor. Consultation Date/Type/Reason Admit Date/Time May 06, 2017 at 16:34 Initial Consult Date 05/10/17 Type of Consultation: Pulm Referring Provider: OSMAR MONTAGUE DO 24 HR Interval Summary Free Text/Dictation Patient's condition remains stable. Remains completely unresponsive and chronically ventilator dependent. General exam; elderly woman, on ventilator via tracheostomy, unresponsive, currently in no distress. Exam/Review of Systems Vital Signs Vitals Vital Signs Date Time Temp Pulse Resp B/P Pulse Ox O2 Delivery O2 Flow Rate FiO2 06/17/17 09:43 57 128/62 06/17/17 08:00 97.8 18 97 06/17/17 04:54 30 06/15/17 04:00 Mechanical Ventilator Intake and Output 06/16/17 06/16/17 06/17/17 15:00 23:00 07:00 Intake Total 1000 ml Output Total 600 ml Balance 400 ml Exam HEENT exam; supple neck, positive JVD. No lymphadenopathy. Midline trachea. Tracheostomy in place. Chest exam; diminished breath sounds bilaterally. S1-S2 audible, no murmurs. Regular rhythm. Abdomen exam; soft, G-tube in place. No organomegaly. Bowel sounds are absent. Extremity exam; 2+ generalized anasarca. Patient has a multiple ecchymosis involving all 4 extremities. VENEER CUTTER exam; patient remains unresponsive. Results Result Diagram: 06/17/17 0610 06/17/17 0610 Results 24 hrs Laboratory Tests Test 06/16/17 13:34 06/16/17 18:37 06/16/17 20:33 06/17/17 03:13 Bedside Glucose 145 147 122 122 Test 06/17/17 05:00 06/17/17 06:09 06/17/17 06:10 06/17/17 09:56 Blood Gas Specimen Source Blood arterial Arterial Blood Date Drawn 06/17/2017 5:15:56 AM Arterial Blood pH (Temp corrected) 7.445 Arterial Blood pCO2 (Temp correct) 51.4 H Arterial Blood pO2 (Temp corrected) 93.2 H Arterial Blood HCO3 34.5 H Arterial Blood Base Excess 8.9 H Arterial Blood Oxygen Saturation 97.2 Faustino Test ACCEPTAB Arterial Blood Gas Puncture Site Left Radial Arterial Blood Carboxyhemoglobin 1.2 Arterial Blood Methemoglobin 0.1 Blood Gas A-a O2 Differential 60.3 H Oxyhemoglobin Percent 95.9 Total Hemoglobin 13.4 Blood Gas Temperature 37.0 Blood Gas Respiration Rate 20.0 Blood Gas Actual Respiration Rate 20 Blood Gas Modality VENT - AC FiO2 30.0 Blood Gas Tidal Volume 400.0 Blood Gas Low PEEP Setting 5.0 Blood Gas Notified Whom MA Blood Gas Notified Time 06/17/2017 5:26:46 AM Bedside Glucose 124 127 White Blood Count 5.4 Red Blood Count 3.12 L Hemoglobin 9.4 L Hematocrit 31.9 L Mean Corpuscular Volume 102.2 H Mean Corpuscular Hemoglobin 30.1 Mean Corpuscular Hemoglobin Concent 29.5 L Red Cell Distribution Width 22.0 H Platelet Count 75 L Mean Platelet Volume 12.1 H Neutrophils % 75.6 Lymphocytes % 12.0 L Monocytes % 4.4 Eosinophils % 7.6 H Basophils % 0.2 Nucleated Red Blood Cells % 0.0 Neutrophils # (Manual) 4.1 Lymphocytes # 0.7 L Monocytes # 0.2 L Eosinophils # 0.4 Basophils # 0.0 Nucleated Red Blood Cells # 0.0 Sodium Level 150 H Potassium Level 3.8 Chloride Level 106 Carbon Dioxide Level 36 H Anion Gap 12 Blood Urea Nitrogen 62 H Creatinine 2.46 H Glucose Level 125 Calcium Level 9.4 Phosphorus Level 3.1 Magnesium Level 2.5 Medications Medications Current Medications Bisacodyl (Dulcolax Supp) 10 mg Q48H AR Last administered on 06/15/17t 17:51; Admin Dose 10 MG; Start 05/06/17 at 17:00 Sodium Biphosphate/ Sodium Phosphate (Fleet Enema Pediatric) 118 ml Q72H PRN [place] CONSTIPATION; Start 05/06/17 at 17:00 Citric Acid/ Sodium Citrate (Bicitra) 30 ml BID PO Last administered on 20:30; Admin Dose 30 ML; Start 05/06/17 at 21:00 Nystatin (Nystatin Powder) 1 applic BID TOP Last administered on 06/17/17 09: 42; Admin Dose 1 APPLIC; Start 05/09/17 at 21:00 Collagenase (Santyl) 1 applic DAILY TOP Last administered on 06/17/17 09:43; Admin Dose 1 APPLIC; Start 05/09/17 at 15:00 Collagenase (Santyl) 1 applic PRN PRN TOP WOUND CARE Last administered on 02:33; Admin Dose 1 APPLIC; Start 05/09/17 at 14:00 Miscellaneous Information 1 ea NOTE XX ; Start 05/11/17 at 08:00 Glucose (Glutose) 15 gm Q15M PRN PO DECREASED GLUCOSE; Start 05/11/17 at 08:00 Glucose (Glutose) 22.5 gm Q15M PRN PO DECREASED GLUCOSE; Start 05/11/17 at 08: 00 Dextrose (D50w Syringe) 25 ml Q15M PRN IV DECREASED GLUCOSE Last administered on 06/10/17 09:24; Admin Dose 25 ML; Start 05/11/17 at 08:00 Dextrose (D50w Syringe) 50 ml Q15M PRN IV DECREASED GLUCOSE Last administered on 06/10/17 16:12; Admin Dose 50 ML; Start 05/11/17 at 08:00 Glucagon (Glucagen) 1 mg Q15M PRN IM DECREASED GLUCOSE Last administered on 12:10; Admin Dose 1 MG; Start 05/11/17 at 08:00 Glucose (Glutose) 15 gm Q15M PRN BUCCAL DECREASED GLUCOSE Last administered on 06/10/17 09:49; Admin Dose 15 GM; Start 05/11/17 at 08:00 Epoetin Vasyl (Epogen (Esrd)) 10,000 units MoWeFr@17 SC Last administered on 17:48; Admin Dose 10,000 UNITS; Start 05/13/17 at 17:00 IV Flush (NS 10 ml) 10 ml PRN PRN IV IV PROTOCOL; Start 05/15/17 at 17:30 Insulin Aspart NOVOLOG *MILD* ALGORI... Q4 SC Last administered on 06/16/17 13 :35; Admin Dose 1 UNIT; Start 05/26/17 at 09:00 Total Parenteral Nutrition (Tpn) 1,000 ml @ 40 mls/hr Q24H IV Last administered on 06/17/17 06:50; Admin Dose 40 MLS/HR; Start 05/27/17 at 14:00 Famotidine (Pepcid Iv) 20 mg DAILY IV Last administered on 06/17/17 09:39; Admin Dose 20 MG; Start 05/29/17 at 09:00 Hydrocortisone (Solu-Cortef) 10 mg Q8 IV Last administered on 06/17/17 06:02; Admin Dose 10 MG; Start 06/06/17 at 14:00 IV Flush (NS 10 ml) 10 ml PRN PRN IV IV PROTOCOL; Start 06/10/17 at 18:00 Furosemide (Lasix) 40 mg DAILY IV Last administered on 06/17/17 09:42; Admin Dose 40 MG; Start 06/14/17 at 09:00 SMITH RUIZ Jun 17, 2017 10:45
--- NOTE | 2017-06-17 15:57 | CONS ---
Date/Time of Note Date/Time of Note DATE: 06/17/17 TIME: 15:56 Assessment/Plan Assessment/Plan Chief Complaint/Hosp Course This 69-year-old female with a history of CVA vent dependent respiratory failure , was brought to the emergency room for the dislodgment of the GJ tube. Patient is nonverbal and no information can be obtained. No GI bleeding no chest pain no shortness of breath. Problems: Additional Assessment/Plan Additional Assessment/Plan Additional Assessment/Plan 1. Dislodged GJ tube accidentally 2. Vent dependent respiratory failure 3. Chronic encephalopathy 4. Renal failure 5. Peripheral vascular disease 6. Anemia, secondary to chronic disease no evidence of active bleeding 7. 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 Hypotension, corrected patient is off dopamine for more than 24 hours 9. Decubitus ulcer 10. Workup for adrenal insufficiency, patient is on steroid now and off dopamine 11. Status post sepsis 12. Morbid obesity, patient has definitely gained a lot of weight around the abdominal girth 13. Anasarca Plan fistula is closing discontinue intralipid Reduce TPN to 40 cc per Discontinue D10 Hopefully we will be able to feed her through the NG tube within the next few days when the stoma is completely closed. Continue present care Consultation Date/Type/Reason Admit Date/Time May 06, 2017 at 16:34 Type of Consultation: Pulm Referring Provider: OSMAR MONTAGUE DO 24 HR Interval Summary Subjective hx not possible: pt non-verbal, pt critical Exam/Review of Systems Vital Signs Vitals Vital Signs Date Time Temp Pulse Resp B/P Pulse Ox O2 Delivery O2 Flow Rate FiO2 06/17/17 15:25 98.6 55 18 126/65 100 06/17/17 11:08 30 06/15/17 04:00 Mechanical Ventilator Intake and Output 06/16/17 06/16/17 06/17/17 14:59 22:59 06:59 Intake Total 1000 ml Output Total 600 ml Balance 400 ml Exam ENMT: intubated Gastrointestinal: nl liver, spleen, non-tender, other (Discharge from the gastrocutaneous fistula minimal), soft Extremities: edema Neurological: unresponsive Results Result Diagram: 06/17/17 0610 06/17/17 0610 Results 24 hrs Laboratory Tests Test 06/16/17 18:37 06/16/17 20:33 06/17/17 03:13 06/17/17 05:00 Bedside Glucose 147 122 122 Blood Gas Specimen Source Blood arterial Arterial Blood Date Drawn 06/17/2017 5:15:56 AM Arterial Blood pH (Temp corrected) 7.445 Arterial Blood pCO2 (Temp correct) 51.4 H Arterial Blood pO2 (Temp corrected) 93.2 H Arterial Blood HCO3 34.5 H Arterial Blood Base Excess 8.9 H Arterial Blood Oxygen Saturation 97.2 Faustino Test ACCEPTAB Arterial Blood Gas Puncture Site Left Radial Arterial Blood Carboxyhemoglobin 1.2 Arterial Blood Methemoglobin 0.1 Blood Gas A-a O2 Differential 60.3 H Oxyhemoglobin Percent 95.9 Total Hemoglobin 13.4 Blood Gas Temperature 37.0 Blood Gas Respiration Rate 20.0 Blood Gas Actual Respiration Rate 20 Blood Gas Modality VENT - AC FiO2 30.0 Blood Gas Tidal Volume 400.0 Blood Gas Low PEEP Setting 5.0 Blood Gas Notified Whom MA Blood Gas Notified Time 06/17/2017 5:26:46 AM Test 06/17/17 06:09 06/17/17 06:10 06/17/17 09:56 06/17/17 13:05 Bedside Glucose 124 127 112 White Blood Count 5.4 Red Blood Count 3.12 L Hemoglobin 9.4 L Hematocrit 31.9 L Mean Corpuscular Volume 102.2 H Mean Corpuscular Hemoglobin 30.1 Mean Corpuscular Hemoglobin Concent 29.5 L Red Cell Distribution Width 22.0 H Platelet Count 75 L Mean Platelet Volume 12.1 H Neutrophils % 75.6 Lymphocytes % 12.0 L Monocytes % 4.4 Eosinophils % 7.6 H Basophils % 0.2 Nucleated Red Blood Cells % 0.0 Neutrophils # (Manual) 4.1 Lymphocytes # 0.7 L Monocytes # 0.2 L Eosinophils # 0.4 Basophils # 0.0 Nucleated Red Blood Cells # 0.0 Sodium Level 150 H Potassium Level 3.8 Chloride Level 106 Carbon Dioxide Level 36 H Anion Gap 12 Blood Urea Nitrogen 62 H Creatinine 2.46 H Glucose Level 125 Calcium Level 9.4 Phosphorus Level 3.1 Magnesium Level 2.5 Medications Medications Current Medications Bisacodyl (Dulcolax Supp) 10 mg Q48H IA Last administered on 06/15/17t 17:51; Admin Dose 10 MG; Start 05/06/17 at 17:00 Sodium Biphosphate/ Sodium Phosphate (Fleet Enema Pediatric) 118 ml Q72H PRN [place] CONSTIPATION; Start 05/06/17 at 17:00 Citric Acid/ Sodium Citrate (Bicitra) 30 ml BID PO Last administered on 20:30; Admin Dose 30 ML; Start 05/06/17 at 21:00 Nystatin (Nystatin Powder) 1 applic BID TOP Last administered on 06/17/17 09: 42; Admin Dose 1 APPLIC; Start 05/09/17 at 21:00 Collagenase (Santyl) 1 applic DAILY TOP Last administered on 06/17/17 09:43; Admin Dose 1 APPLIC; Start 05/09/17 at 15:00 Collagenase (Santyl) 1 applic PRN PRN TOP WOUND CARE Last administered on 02:33; Admin Dose 1 APPLIC; Start 05/09/17 at 14:00 Miscellaneous Information 1 ea NOTE XX ; Start 05/11/17 at 08:00 Glucose (Glutose) 15 gm Q15M PRN PO DECREASED GLUCOSE; Start 05/11/17 at 08:00 Glucose (Glutose) 22.5 gm Q15M PRN PO DECREASED GLUCOSE; Start 05/11/17 at 08: 00 Dextrose (D50w Syringe) 25 ml Q15M PRN IV DECREASED GLUCOSE Last administered on 06/10/17 09:24; Admin Dose 25 ML; Start 05/11/17 at 08:00 Dextrose (D50w Syringe) 50 ml Q15M PRN IV DECREASED GLUCOSE Last administered on 06/10/17 16:12; Admin Dose 50 ML; Start 05/11/17 at 08:00 Glucagon (Glucagen) 1 mg Q15M PRN IM DECREASED GLUCOSE Last administered on 12:10; Admin Dose 1 MG; Start 05/11/17 at 08:00 Glucose (Glutose) 15 gm Q15M PRN BUCCAL DECREASED GLUCOSE Last administered on 06/10/17 09:49; Admin Dose 15 GM; Start 05/11/17 at 08:00 Epoetin Vasyl (Epogen (Esrd)) 10,000 units MoWeFr@17 SC Last administered on 17:48; Admin Dose 10,000 UNITS; Start 05/13/17 at 17:00 IV Flush (NS 10 ml) 10 ml PRN PRN IV IV PROTOCOL; Start 05/15/17 at 17:30 Insulin Aspart NOVOLOG *MILD* ALGORI... Q4 SC Last administered on 06/16/17 13 :35; Admin Dose 1 UNIT; Start 05/26/17 at 09:00 Total Parenteral Nutrition (Tpn) 1,000 ml @ 40 mls/hr Q24H IV Last administered on 06/17/17 06:50; Admin Dose 40 MLS/HR; Start 05/27/17 at 14:00 Famotidine (Pepcid Iv) 20 mg DAILY IV Last administered on 06/17/17 09:39; Admin Dose 20 MG; Start 05/29/17 at 09:00 Hydrocortisone (Solu-Cortef) 10 mg Q8 IV Last administered on 06/17/17 14:00; Admin Dose 10 MG; Start 06/06/17 at 14:00 IV Flush (NS 10 ml) 10 ml PRN PRN IV IV PROTOCOL; Start 06/10/17 at 18:00 Furosemide (Lasix) 40 mg DAILY IV Last administered on 06/17/17 09:42; Admin Dose 40 MG; Start 06/14/17 at 09:00 SYLWIA SY MD Jun 17, 2017 15:57
--- NOTE | 2017-06-17 16:51 | CONS ---
Date/Time of Note Date/Time of Note DATE: 06/17/17 TIME: 16:50 Consult Date/Type/Reason Admit Date/Time May 06, 2017 at 16:34 Initial Consult Date 05/22/17 Type of Consultation: Pulm Ordering Provider: OSMAR MONTAGUE DO Subjective CARDIOLOGY FOLLOW UP NOTE: Discussed with staff and rhythm was reviewed. Pt remains in P afib. pt remains NONVERBAL ON Vent OBJECTIVE: General: no acute distress. s/p trach on vent. HEENT: NC/AT. NECK: NO JVD. no stridor. S/P trach on vent CV: irregularly irregular. systolic murmur; no gallop or rubs. PULM: no wheezing anteriorly GI: SOFT, NT, ND, no rebound or guarding s/p dressing at the site of previous G tube Extremity: + B/L LE and UE edema. no clubbing. neuro: opens her eyes to painful stimuli. does not follow commands Psych: calm rectal: deferred Objective Vital Signs Date Time Temp Pulse Resp B/P Pulse Ox O2 Delivery O2 Flow Rate FiO2 06/17/17 15:25 98.6 55 18 126/65 100 06/17/17 11:08 30 06/15/17 04:00 Mechanical Ventilator Intake and Output 06/16/17 06/16/17 06/17/17 15:00 23:00 07:00 Intake Total 1000 ml Output Total 600 ml Balance 400 ml Results/Medications Result Diagram: 06/17/17 0610 06/17/17 0610 Results 24 hrs Laboratory Tests Test 06/16/17 18:37 06/16/17 20:33 06/17/17 03:13 06/17/17 05:00 Bedside Glucose 147 122 122 Blood Gas Specimen Source Blood arterial Arterial Blood Date Drawn 06/17/2017 5:15:56 AM Arterial Blood pH (Temp corrected) 7.445 Arterial Blood pCO2 (Temp correct) 51.4 H Arterial Blood pO2 (Temp corrected) 93.2 H Arterial Blood HCO3 34.5 H Arterial Blood Base Excess 8.9 H Arterial Blood Oxygen Saturation 97.2 Faustino Test ACCEPTAB Arterial Blood Gas Puncture Site Left Radial Arterial Blood Carboxyhemoglobin 1.2 Arterial Blood Methemoglobin 0.1 Blood Gas A-a O2 Differential 60.3 H Oxyhemoglobin Percent 95.9 Total Hemoglobin 13.4 Blood Gas Temperature 37.0 Blood Gas Respiration Rate 20.0 Blood Gas Actual Respiration Rate 20 Blood Gas Modality VENT - AC FiO2 30.0 Blood Gas Tidal Volume 400.0 Blood Gas Low PEEP Setting 5.0 Blood Gas Notified Whom RADHA Blood Gas Notified Time 06/17/2017 5:26:46 AM Test 06/17/17 06:09 06/17/17 06:10 06/17/17 09:56 06/17/17 13:05 Bedside Glucose 124 127 112 White Blood Count 5.4 Red Blood Count 3.12 L Hemoglobin 9.4 L Hematocrit 31.9 L Mean Corpuscular Volume 102.2 H Mean Corpuscular Hemoglobin 30.1 Mean Corpuscular Hemoglobin Concent 29.5 L Red Cell Distribution Width 22.0 H Platelet Count 75 L Mean Platelet Volume 12.1 H Neutrophils % 75.6 Lymphocytes % 12.0 L Monocytes % 4.4 Eosinophils % 7.6 H Basophils % 0.2 Nucleated Red Blood Cells % 0.0 Neutrophils # (Manual) 4.1 Lymphocytes # 0.7 L Monocytes # 0.2 L Eosinophils # 0.4 Basophils # 0.0 Nucleated Red Blood Cells # 0.0 Sodium Level 150 H Potassium Level 3.8 Chloride Level 106 Carbon Dioxide Level 36 H Anion Gap 12 Blood Urea Nitrogen 62 H Creatinine 2.46 H Glucose Level 125 Calcium Level 9.4 Phosphorus Level 3.1 Magnesium Level 2.5 Medications Current Medications Bisacodyl (Dulcolax Supp) 10 mg Q48H ID Last administered on 06/15/17 17:51; Admin Dose 10 MG; Start 05/06/17 at 17:00 Sodium Biphosphate/ Sodium Phosphate (Fleet Enema Pediatric) 118 ml Q72H PRN [place] CONSTIPATION; Start 05/06/17 at 17:00 Citric Acid/ Sodium Citrate (Bicitra) 30 ml BID PO Last administered on 20:30; Admin Dose 30 ML; Start 05/06/17 at 21:00 Nystatin (Nystatin Powder) 1 applic BID TOP Last administered on 06/17/17 09: 42; Admin Dose 1 APPLIC; Start 05/09/17 at 21:00 Collagenase (Santyl) 1 applic DAILY TOP Last administered on 06/17/17 09:43; Admin Dose 1 APPLIC; Start 05/09/17 at 15:00 Collagenase (Santyl) 1 applic PRN PRN TOP WOUND CARE Last administered on 02:33; Admin Dose 1 APPLIC; Start 05/09/17 at 14:00 Miscellaneous Information 1 ea NOTE XX ; Start 05/11/17 at 08:00 Glucose (Glutose) 15 gm Q15M PRN PO DECREASED GLUCOSE; Start 05/11/17 at 08:00 Glucose (Glutose) 22.5 gm Q15M PRN PO DECREASED GLUCOSE; Start 05/11/17 at 08: 00 Dextrose (D50w Syringe) 25 ml Q15M PRN IV DECREASED GLUCOSE Last administered on 06/10/17 09:24; Admin Dose 25 ML; Start 05/11/17 at 08:00 Dextrose (D50w Syringe) 50 ml Q15M PRN IV DECREASED GLUCOSE Last administered on 06/10/17 16:12; Admin Dose 50 ML; Start 05/11/17 at 08:00 Glucagon (Glucagen) 1 mg Q15M PRN IM DECREASED GLUCOSE Last administered on 12:10; Admin Dose 1 MG; Start 05/11/17 at 08:00 Glucose (Glutose) 15 gm Q15M PRN BUCCAL DECREASED GLUCOSE Last administered on 06/10/17 09:49; Admin Dose 15 GM; Start 05/11/17 at 08:00 Epoetin Vasyl (Epogen (Esrd)) 10,000 units MoWeFr@17 SC Last administered on 17:48; Admin Dose 10,000 UNITS; Start 05/13/17 at 17:00 IV Flush (NS 10 ml) 10 ml PRN PRN IV IV PROTOCOL; Start 05/15/17 at 17:30 Insulin Aspart NOVOLOG *MILD* ALGORI... Q4 SC Last administered on 06/16/17 13 :35; Admin Dose 1 UNIT; Start 05/26/17 at 09:00 Total Parenteral Nutrition (Tpn) 1,000 ml @ 40 mls/hr Q24H IV Last administered on 06/17/17 06:50; Admin Dose 40 MLS/HR; Start 05/27/17 at 14:00 Famotidine (Pepcid Iv) 20 mg DAILY IV Last administered on 06/17/17 09:39; Admin Dose 20 MG; Start 05/29/17 at 09:00 Hydrocortisone (Solu-Cortef) 10 mg Q8 IV Last administered on 06/17/17 14:00; Admin Dose 10 MG; Start 06/06/17 at 14:00 IV Flush (NS 10 ml) 10 ml PRN PRN IV IV PROTOCOL; Start 06/10/17 at 18:00 Furosemide (Lasix) 40 mg DAILY IV Last administered on 06/17/17 09:42; Admin Dose 40 MG; Start 06/14/17 at 09:00 Assessment/Plan Chief Complaint/Hosp Course 1. hypoxemic hypercapnic resp failure: s/p trach 2. Pafib; 3. hx HTN: 4. encephalopathy 5. renal failure: f/u with nephrology 6. dysphagia 7. G tube malfunction/ infection: unable to repair by GI. 8. GI bleed 9. severe anemia 10. malnutrition 11. anasarca and fluid overload. cont resp care nutritional support. correct lytes prn F/U with GI and surgery rec. CODE STATUS IS chemical code only now. family is considering palliative care. THANK YOU. Problems: MILAGROS MUNOZ MD Jun 17, 2017 16:51
[2017-06-17] MEDS: BISACODYL 10 MG SUPP PR SCH (18:02)
[2017-06-17] MEDS: EPOETIN 10000 UNITS/1 ML INJ (ESRD) SC SCH (18:02)
--- NOTE | 2017-06-17 18:18 | CONS ---
Date/Time of Note Date/Time of Note DATE: 06/17/17 TIME: 18:18 Assessment/Plan Assessment/Plan Chief Complaint/Hosp Course SUBJECTIVE DATA: No acute changes, nonverbal and noncommunicative, comfortable on the vent, on TPN and Lipids INDWELLING: Trach, PICC line, and Collazo. PHYSICAL EXAMINATION: GENERAL: Chronically ill-appearing, elderly woman, who is nonverbal, noncommunicative, in no distress. HEENT: Head atraumatic, normocephalic. Sclerae anicteric. Buccal mucosa dry. NECK: Supple. Tracheostomy present. CHEST: Rise symmetrical. Breath sounds with bilateral scattered crackles. HEART: S1, S2. ABDOMEN: Soft, distended. Bowel sounds hypoactive. EXTREMITIES: With bilateral edema. SKIN: With generalized edema and erythema. ASSESSMENT: 1. Status post shock, multifactorial. 2. S/p Gillian albicans urinary tract infection (UTI). 3. S/p Healthcare associated pneumonia 4. G-tube malfunction/GC fistula. 5. Chronic encephalopathy. 6. Acute on chronic kidney disease. 7. Diabetes. PLAN: Remains unchanged, continue present care DW staff Problems: Consultation Date/Type/Reason Admit Date/Time May 06, 2017 at 16:34 Initial Consult Date 05/09/17 Type of Consultation: id Referring Provider: OSMAR MONTAGUE DO Exam/Review of Systems Vital Signs Vitals Vital Signs Date Time Temp Pulse Resp B/P Pulse Ox O2 Delivery O2 Flow Rate FiO2 06/17/17 16:58 59 20 98 30 06/17/17 15:25 98.6 126/65 06/15/17 04:00 Mechanical Ventilator Intake and Output 06/16/17 06/16/17 06/17/17 15:00 23:00 07:00 Intake Total 1000 ml Output Total 600 ml Balance 400 ml Results Result Diagram: 06/17/17 0610 06/17/17 0610 Results 24 hrs Laboratory Tests Test 06/16/17 18:37 06/16/17 20:33 06/17/17 03:13 06/17/17 05:00 Bedside Glucose 147 122 122 Blood Gas Specimen Source Blood arterial Arterial Blood Date Drawn 06/17/2017 5:15:56 AM Arterial Blood pH (Temp corrected) 7.445 Arterial Blood pCO2 (Temp correct) 51.4 H Arterial Blood pO2 (Temp corrected) 93.2 H Arterial Blood HCO3 34.5 H Arterial Blood Base Excess 8.9 H Arterial Blood Oxygen Saturation 97.2 Faustino Test ACCEPTAB Arterial Blood Gas Puncture Site Left Radial Arterial Blood Carboxyhemoglobin 1.2 Arterial Blood Methemoglobin 0.1 Blood Gas A-a O2 Differential 60.3 H Oxyhemoglobin Percent 95.9 Total Hemoglobin 13.4 Blood Gas Temperature 37.0 Blood Gas Respiration Rate 20.0 Blood Gas Actual Respiration Rate 20 Blood Gas Modality VENT - AC FiO2 30.0 Blood Gas Tidal Volume 400.0 Blood Gas Low PEEP Setting 5.0 Blood Gas Notified Whom MA Blood Gas Notified Time 06/17/2017 5:26:46 AM Test 06/17/17 06:09 06/17/17 06:10 06/17/17 09:56 06/17/17 13:05 Bedside Glucose 124 127 112 White Blood Count 5.4 Red Blood Count 3.12 L Hemoglobin 9.4 L Hematocrit 31.9 L Mean Corpuscular Volume 102.2 H Mean Corpuscular Hemoglobin 30.1 Mean Corpuscular Hemoglobin Concent 29.5 L Red Cell Distribution Width 22.0 H Platelet Count 75 L Mean Platelet Volume 12.1 H Neutrophils % 75.6 Lymphocytes % 12.0 L Monocytes % 4.4 Eosinophils % 7.6 H Basophils % 0.2 Nucleated Red Blood Cells % 0.0 Neutrophils # (Manual) 4.1 Lymphocytes # 0.7 L Monocytes # 0.2 L Eosinophils # 0.4 Basophils # 0.0 Nucleated Red Blood Cells # 0.0 Sodium Level 150 H Potassium Level 3.8 Chloride Level 106 Carbon Dioxide Level 36 H Anion Gap 12 Blood Urea Nitrogen 62 H Creatinine 2.46 H Glucose Level 125 Calcium Level 9.4 Phosphorus Level 3.1 Magnesium Level 2.5 Test 06/17/17 17:19 Bedside Glucose 131 Medications Medications Current Medications Bisacodyl (Dulcolax Supp) 10 mg Q48H [place] Last administered on 06/17/17 18:02; Admin Dose 10 MG; Start 05/06/17 at 17:00 Sodium Biphosphate/ Sodium Phosphate (Fleet Enema Pediatric) 118 ml Q72H PRN [place] CONSTIPATION; Start 05/06/17 at 17:00 Citric Acid/ Sodium Citrate (Bicitra) 30 ml BID PO Last administered on 20:30; Admin Dose 30 ML; Start 05/06/17 at 21:00 Nystatin (Nystatin Powder) 1 applic BID TOP Last administered on 06/17/17 09: 42; Admin Dose 1 APPLIC; Start 05/09/17 at 21:00 Collagenase (Santyl) 1 applic DAILY TOP Last administered on 06/17/17 09:43; Admin Dose 1 APPLIC; Start 05/09/17 at 15:00 Collagenase (Santyl) 1 applic PRN PRN TOP WOUND CARE Last administered on 02:33; Admin Dose 1 APPLIC; Start 05/09/17 at 14:00 Miscellaneous Information 1 ea NOTE XX ; Start 05/11/17 at 08:00 Glucose (Glutose) 15 gm Q15M PRN PO DECREASED GLUCOSE; Start 05/11/17 at 08:00 Glucose (Glutose) 22.5 gm Q15M PRN PO DECREASED GLUCOSE; Start 05/11/17 at 08: 00 Dextrose (D50w Syringe) 25 ml Q15M PRN IV DECREASED GLUCOSE Last administered on 06/10/17 09:24; Admin Dose 25 ML; Start 05/11/17 at 08:00 Dextrose (D50w Syringe) 50 ml Q15M PRN IV DECREASED GLUCOSE Last administered on 06/10/17 16:12; Admin Dose 50 ML; Start 05/11/17 at 08:00 Glucagon (Glucagen) 1 mg Q15M PRN IM DECREASED GLUCOSE Last administered on 12:10; Admin Dose 1 MG; Start 05/11/17 at 08:00 Glucose (Glutose) 15 gm Q15M PRN BUCCAL DECREASED GLUCOSE Last administered on 06/10/17 09:49; Admin Dose 15 GM; Start 05/11/17 at 08:00 Epoetin Vasyl (Epogen (Esrd)) 10,000 units MoWeFr@17 SC Last administered on 18:02; Admin Dose 10,000 UNITS; Start 05/13/17 at 17:00 IV Flush (NS 10 ml) 10 ml PRN PRN IV IV PROTOCOL; Start 05/15/17 at 17:30 Insulin Aspart NOVOLOG *MILD* ALGORI... Q4 SC Last administered on 06/16/17 13 :35; Admin Dose 1 UNIT; Start 05/26/17 at 09:00 Total Parenteral Nutrition (Tpn) 1,000 ml @ 40 mls/hr Q24H IV Last administered on 06/17/17 06:50; Admin Dose 40 MLS/HR; Start 05/27/17 at 14:00 Famotidine (Pepcid Iv) 20 mg DAILY IV Last administered on 06/17/17 09:39; Admin Dose 20 MG; Start 05/29/17 at 09:00 Hydrocortisone (Solu-Cortef) 10 mg Q8 IV Last administered on 06/17/17 14:00; Admin Dose 10 MG; Start 06/06/17 at 14:00 IV Flush (NS 10 ml) 10 ml PRN PRN IV IV PROTOCOL; Start 06/10/17 at 18:00 Furosemide (Lasix) 40 mg DAILY IV Last administered on 06/17/17 09:42; Admin Dose 40 MG; Start 06/14/17 at 09:00 DOROTHY CORONADO NP Jun 17, 2017 18:18
[2017-06-18] VITALS (16 sets, daily range): BP systolic 118–190; BP diastolic 63–88; PULSE 60–62; RESP 18–20
[2017-06-18] MEDS: INSULIN ASPART [NOVOLOG] 3 ML PEN SC SCH ×4 (01:00→13:00)
[2017-06-18] MEDS ORDERED: ONDANSETRON 4 MG INJ IV PRN (01:30)
[2017-06-18] MEDS: HYDROCORTISONE 100 MG INJ IV SCH ×2 (05:18→14:00)
[2017-06-18 07:12] LABS: CALCIUM 9.4 mg/dl (8.4-10.2); CREATININE 2.43 mg/dl (0.44-1.00); MAGNESIUM 2.4 mg/dl (1.7-2.5); PHOSPHORUS 3.1 mg/dl (2.5-4.9); POTASSIUM 4.3 mmol/L (3.5-5.1)
[2017-06-18] MEDS: CITRIC ACID/NA CITRATE 30 ML CUP PO SCH (08:00)
[2017-06-18] MEDS: FUROSEMIDE 40 MG INJ IV SCH (08:10)
[2017-06-18] MEDS: FAMOTIDINE 20 MG INJ IV SCH (08:10)
[2017-06-18] MEDS: TPN 1,000 ML IV SCH (08:11)
[2017-06-18] MEDS: COLLAGENASE 30 GM TUBE TOP SCH (08:23)
[2017-06-18] MEDS: NYSTATIN 30 GM POWDER BTL TOP SCH (08:23)
--- NOTE | 2017-06-18 09:02 | PN ---
DATE: 06/18/2017 SUBJECTIVE DATA: The patient is stable. Remains on TPN. No other events noted. No hemoptysis, hematemesis, hematochezia. OBJECTIVE DATA: VITAL SIGNS: Blood pressure 156/66, respiration 18, pulse 64, temperature 97.8. HEENT: Normocephalic. NECK: Shows trach. HEART: Regular rate. LUNGS: Show diminished breath sounds at the base. ABDOMEN: Soft, nontender to palpation. Positive gastrocutaneous fistula. EXTREMITIES: Negative for clubbing, cyanosis. Positive edema. DERMATOLOGIC: Clean. No rashes. MUSCULOSKELETAL: Positive contractures. Positive wounds. NEUROLOGIC: Unchanged exam. MEDICATIONS: Reviewed. LABORATORY AND DIAGNOSTIC DATA: Showed a sodium 152, potassium 4.2, chloride 107, BUN 60, creatinine 2.43. ASSESSMENT AND PLAN: 1. Sepsis, status post shock. Patient has completed antibiotic course. 2. Anemia. Continue to monitor H and H levels. Continue Epogen. 3. Nonoliguric acute kidney injury on top of chronic kidney disease stage 4. Etiology secondary to acute tubular necrosis. Renal function has been fluctuating, but overall stable. Continue to monitor. 4. Hypernatremia. Patient has a free water deficit of approximately 2 L. Continue hypotonic fluid. 5. Volume overload secondary to acute kidney injury, congestive heart failure. Continue current diuretic regimen. 6. Acute encephalopathy and advanced dementia. Etiology is toxic metabolic. 7. Diabetes. Continue Accu-Cheks and insulin sliding scale. 8. Nutrition. Continue total parenteral nutrition. 9. Chest pain. Continue . Continue to monitor. 10. Decubitus wound. Continue wound care. 11. Thrombocytopenia. Continue to monitor. Etiology unclear, possibly medication related, possible bone marrow etiology. 12. Gastrointestinal and deep venous thrombosis prophylaxis. Patient is pending transfer to a subacute facility when bed is available. Dictated By: Brendan Rosas DO /junie/rajesh /Document#: [id number]
--- NOTE | 2017-06-18 09:03 | CONS ---
Date/Time of Note Date/Time of Note DATE: 06/18/17 TIME: 09:00 Assessment/Plan Assessment/Plan Additional Assessment/Plan Ventilator setting; AC of 20, tidal volume 400, PEEP of 5, 30% FiO2. Assessment and recommendations; 1. Patient admitted with severe sepsis from pneumonia off antibiotics 2. Chronic respiratory failure. 3. Advanced dementia. 4. Chronic renal insufficiency. 5. Thrombocytopenia. 6. Congestive heart failure. Continue current treatment. Consider discharge. Prognosis remains very poor. Consultation Date/Type/Reason Admit Date/Time May 06, 2017 at 16:34 Initial Consult Date 05/10/17 Type of Consultation: Pulmonary/critical care Referring Provider: OSMAR MONTAGUE DO 24 HR Interval Summary Free Text/Dictation Patient's condition remains unchanged. Remains completely unresponsive. Patient has however remained hemodynamically stable. General exam; elderly woman, on ventilator via tracheostomy, unresponsive, currently in no distress. Exam/Review of Systems Vital Signs Vitals Vital Signs Date Time Temp Pulse Resp B/P Pulse Ox O2 Delivery O2 Flow Rate FiO2 06/18/17 08:02 61 156/66 06/18/17 07:31 97.8 18 100 06/18/17 05:08 30 06/15/17 04:00 Mechanical Ventilator Intake and Output 06/17/17 06/17/17 06/18/17 15:00 23:00 07:00 Intake Total 480 ml 480 ml Output Total 600 ml Balance 480 ml -120 ml Exam HEENT exam; supple neck, positive JVD. No lymphadenopathy. Midline trachea. No thyromegaly. Tracheostomy in place. Chest exam; diminished but clear breath sounds. S1-S2 audible, no murmurs. Regular rhythm. Abdomen exam; soft, G-tube in place. Bowel sounds are absent. Extremity exam; 2+ anasarca. Patient has a multiple ecchymosis involving all 4 extremities. CERTIFIED ALCOHOL COUNSELOR exam; patient remains profoundly unresponsive. Results Result Diagram: 06/17/17 0610 06/18/17 0541 Results 24 hrs Laboratory Tests Test 06/17/17 09:56 06/17/17 13:05 06/17/17 17:19 06/17/17 21:43 Bedside Glucose 127 112 131 119 Test 06/18/17 01:20 06/18/17 05:07 06/18/17 05:41 06/18/17 08:22 Bedside Glucose 126 121 142 Sodium Level 152 H Potassium Level 4.3 Chloride Level 107 Carbon Dioxide Level 36 H Anion Gap 13 Blood Urea Nitrogen 63 H Creatinine 2.43 H Glucose Level 125 Calcium Level 9.4 Phosphorus Level 3.1 Magnesium Level 2.4 Medications Medications Current Medications Bisacodyl (Dulcolax Supp) 10 mg Q48H [place] Last administered on 06/17/17 18:02; Admin Dose 10 MG; Start 05/06/17 at 17:00 Sodium Biphosphate/ Sodium Phosphate (Fleet Enema Pediatric) 118 ml Q72H PRN [place] CONSTIPATION; Start 05/06/17 at 17:00 Citric Acid/ Sodium Citrate (Bicitra) 30 ml BID PO Last administered on 20:30; Admin Dose 30 ML; Start 05/06/17 at 21:00 Nystatin (Nystatin Powder) 1 applic BID TOP Last administered on 06/18/17 08: 23; Admin Dose 1 APPLIC; Start 05/09/17 at 21:00 Collagenase (Santyl) 1 applic DAILY TOP Last administered on 06/18/17 08:23; Admin Dose 1 APPLIC; Start 05/09/17 at 15:00 Collagenase (Santyl) 1 applic PRN PRN TOP WOUND CARE Last administered on 02:33; Admin Dose 1 APPLIC; Start 05/09/17 at 14:00 Miscellaneous Information 1 ea NOTE XX ; Start 05/11/17 at 08:00 Glucose (Glutose) 15 gm Q15M PRN PO DECREASED GLUCOSE; Start 05/11/17 at 08:00 Glucose (Glutose) 22.5 gm Q15M PRN PO DECREASED GLUCOSE; Start 05/11/17 at 08: 00 Dextrose (D50w Syringe) 25 ml Q15M PRN IV DECREASED GLUCOSE Last administered on 06/10/17 09:24; Admin Dose 25 ML; Start 05/11/17 at 08:00 Dextrose (D50w Syringe) 50 ml Q15M PRN IV DECREASED GLUCOSE Last administered on 06/10/17 16:12; Admin Dose 50 ML; Start 05/11/17 at 08:00 Glucagon (Glucagen) 1 mg Q15M PRN IM DECREASED GLUCOSE Last administered on 12:10; Admin Dose 1 MG; Start 05/11/17 at 08:00 Glucose (Glutose) 15 gm Q15M PRN BUCCAL DECREASED GLUCOSE Last administered on 06/10/17 09:49; Admin Dose 15 GM; Start 05/11/17 at 08:00 Epoetin Vasyl (Epogen (Esrd)) 10,000 units MoWeFr@17 SC Last administered on 18:02; Admin Dose 10,000 UNITS; Start 05/13/17 at 17:00 IV Flush (NS 10 ml) 10 ml PRN PRN IV IV PROTOCOL; Start 05/15/17 at 17:30 Insulin Aspart NOVOLOG *MILD* ALGORI... Q4 SC Last administered on 06/18/17 08 :25; Admin Dose 1 UNIT; Start 05/26/17 at 09:00 Total Parenteral Nutrition (Tpn) 1,000 ml @ 40 mls/hr Q24H IV Last administered on 06/18/17 08:11; Admin Dose 40 MLS/HR; Start 05/27/17 at 14:00 Famotidine (Pepcid Iv) 20 mg DAILY IV Last administered on 06/18/17 08:10; Admin Dose 20 MG; Start 05/29/17 at 09:00 Hydrocortisone (Solu-Cortef) 10 mg Q8 IV Last administered on 06/18/17 05:18; Admin Dose 10 MG; Start 06/06/17 at 14:00 IV Flush (NS 10 ml) 10 ml PRN PRN IV IV PROTOCOL; Start 06/10/17 at 18:00 Furosemide (Lasix) 40 mg DAILY IV Last administered on 06/18/17 08:10; Admin Dose 40 MG; Start 06/14/17 at 09:00 Ondansetron HCl (Zofran Inj) 4 mg Q6H PRN IV NAUSEA AND/OR VOMITING Last administered on 06/18/17 01:44; Admin Dose 4 MG; Start 06/18/17 at 01:30 SMITH RUIZ Jun 18, 2017 09:03
--- NOTE | 2017-06-18 13:07 | CONS ---
Date/Time of Note Date/Time of Note DATE: 06/18/17 TIME: 13:07 Assessment/Plan Assessment/Plan Chief Complaint/Hosp Course SUBJECTIVE DATA: No acute changes, nonverbal and noncommunicative, comfortable on the vent, on TPN and Lipids INDWELLING: Trach, PICC line, and Collazo. PHYSICAL EXAMINATION: GENERAL: Chronically ill-appearing, elderly woman, who is nonverbal, noncommunicative, in no distress. HEENT: Head atraumatic, normocephalic. Sclerae anicteric. Buccal mucosa dry. NECK: Supple. Tracheostomy present. CHEST: Rise symmetrical. Breath sounds with bilateral scattered crackles. HEART: S1, S2. ABDOMEN: Soft, distended. Bowel sounds hypoactive. EXTREMITIES: With bilateral edema. SKIN: With generalized edema and erythema. ASSESSMENT: 1. Status post shock, multifactorial. 2. S/p Gillian albicans urinary tract infection (UTI). 3. S/p Healthcare associated pneumonia 4. G-tube malfunction/GC fistula. 5. Chronic encephalopathy. 6. Acute on chronic kidney disease. 7. Diabetes. PLAN: Remains unchanged, continue present care, pending transfer to group home facility DW staff Problems: Consultation Date/Type/Reason Admit Date/Time May 06, 2017 at 16:34 Initial Consult Date 05/09/17 Type of Consultation: id Referring Provider: OSMAR MONTAGUE DO Exam/Review of Systems Vital Signs Vitals Vital Signs Date Time Temp Pulse Resp B/P Pulse Ox O2 Delivery O2 Flow Rate FiO2 06/18/17 12:23 62 06/18/17 11:12 20 99 30 06/18/17 10:59 97.8 124/63 06/15/17 04:00 Mechanical Ventilator Intake and Output 06/17/17 06/17/17 06/18/17 14:59 22:59 06:59 Intake Total 480 ml 480 ml Output Total 600 ml Balance 480 ml -120 ml Results Result Diagram: 06/17/17 0610 06/18/17 0541 Results 24 hrs Laboratory Tests Test 06/17/17 17:19 06/17/17 21:43 06/18/17 01:20 06/18/17 05:07 Bedside Glucose 131 119 126 121 Test 06/18/17 05:41 06/18/17 08:22 06/18/17 12:18 Sodium Level 152 H Potassium Level 4.3 Chloride Level 107 Carbon Dioxide Level 36 H Anion Gap 13 Blood Urea Nitrogen 63 H Creatinine 2.43 H Glucose Level 125 Calcium Level 9.4 Phosphorus Level 3.1 Magnesium Level 2.4 Bedside Glucose 142 123 Medications Medications Current Medications Bisacodyl (Dulcolax Supp) 10 mg Q48H [place] Last administered on 06/17/17 18:02; Admin Dose 10 MG; Start 05/06/17 at 17:00 Sodium Biphosphate/ Sodium Phosphate (Fleet Enema Pediatric) 118 ml Q72H PRN [place] CONSTIPATION; Start 05/06/17 at 17:00 Citric Acid/ Sodium Citrate (Bicitra) 30 ml BID PO Last administered on 20:30; Admin Dose 30 ML; Start 05/06/17 at 21:00 Nystatin (Nystatin Powder) 1 applic BID TOP Last administered on 06/18/17 08: 23; Admin Dose 1 APPLIC; Start 05/09/17 at 21:00 Collagenase (Santyl) 1 applic DAILY TOP Last administered on 06/18/17 08:23; Admin Dose 1 APPLIC; Start 05/09/17 at 15:00 Collagenase (Santyl) 1 applic PRN PRN TOP WOUND CARE Last administered on 02:33; Admin Dose 1 APPLIC; Start 05/09/17 at 14:00 Miscellaneous Information 1 ea NOTE XX ; Start 05/11/17 at 08:00 Glucose (Glutose) 15 gm Q15M PRN PO DECREASED GLUCOSE; Start 05/11/17 at 08:00 Glucose (Glutose) 22.5 gm Q15M PRN PO DECREASED GLUCOSE; Start 05/11/17 at 08: 00 Dextrose (D50w Syringe) 25 ml Q15M PRN IV DECREASED GLUCOSE Last administered on 06/10/17 09:24; Admin Dose 25 ML; Start 05/11/17 at 08:00 Dextrose (D50w Syringe) 50 ml Q15M PRN IV DECREASED GLUCOSE Last administered on 06/10/17 16:12; Admin Dose 50 ML; Start 05/11/17 at 08:00 Glucagon (Glucagen) 1 mg Q15M PRN IM DECREASED GLUCOSE Last administered on 12:10; Admin Dose 1 MG; Start 05/11/17 at 08:00 Glucose (Glutose) 15 gm Q15M PRN BUCCAL DECREASED GLUCOSE Last administered on 06/10/17 09:49; Admin Dose 15 GM; Start 05/11/17 at 08:00 Epoetin Vasyl (Epogen (Esrd)) 10,000 units MoWeFr@17 SC Last administered on 18:02; Admin Dose 10,000 UNITS; Start 05/13/17 at 17:00 IV Flush (NS 10 ml) 10 ml PRN PRN IV IV PROTOCOL; Start 05/15/17 at 17:30 Insulin Aspart NOVOLOG *MILD* ALGORI... Q4 SC Last administered on 06/18/17 08 :25; Admin Dose 1 UNIT; Start 05/26/17 at 09:00 Total Parenteral Nutrition (Tpn) 1,000 ml @ 40 mls/hr Q24H IV Last administered on 06/18/17 08:11; Admin Dose 40 MLS/HR; Start 05/27/17 at 14:00 Famotidine (Pepcid Iv) 20 mg DAILY IV Last administered on 06/18/17 08:10; Admin Dose 20 MG; Start 05/29/17 at 09:00 Hydrocortisone (Solu-Cortef) 10 mg Q8 IV Last administered on 06/18/17 05:18; Admin Dose 10 MG; Start 06/06/17 at 14:00 IV Flush (NS 10 ml) 10 ml PRN PRN IV IV PROTOCOL; Start 06/10/17 at 18:00 Furosemide (Lasix) 40 mg DAILY IV Last administered on 06/18/17 08:10; Admin Dose 40 MG; Start 06/14/17 at 09:00 Ondansetron HCl (Zofran Inj) 4 mg Q6H PRN IV NAUSEA AND/OR VOMITING Last administered on 06/18/17 01:44; Admin Dose 4 MG; Start 06/18/17 at 01:30 DOROTHY CORONADO NP Jun 18, 2017 13:07
--- NOTE | 2017-06-19 00:04 | PN ---
Date/Time of Note Date/Time of Note DATE: 06/19/17 TIME: 00:00 Assessment/Plan Lines/Catheters IV Catheter Type (from Nrs): PICC Line Collazo in Place (from Nrs): Yes Assessment/Plan Chief Complaint/Hosp Course 1. G-tube dislodgement: replaced with gjtube by GI, continued yellow drainage peristomal; gj tube replacement attempt-unable due to too large of an opening; Now chemical code; currently on tpn; bleeding from [facility] -hospice/palliative is the best option for this patient- patient being transitioned to comfort/palliative care upon discharge to sn[facility] today 2. Septic shock: multifactorial: 2/2: pneumonia + cellulitis + wounds; persistent, off pressors again, episodes of hypothermia and hypoglycemia -supportive 3. Respiratory failure with trach: PNA with pulm edema; comfortable on vent -pulmonary toilet -supportive 4.STARLA with CKD; anuric currently -supportive 5. Normocytic anemia: previous coffee ground drainage peristoma;no acute bleed noted; s/p transfusion; stable h/h -monitor and transfuse as needed 6. CHF -medical management 7. Diabetes with hypoglycemia -medical management 8. Acute encephalopathy with history of advanced dementia; unchanged neurologically -supportive 9. Decubitus wound. -continue wound care. 10. Peristomal cellulitis 2/2 #1; +pseudomonas; improving -local care 11. Pancytopenia -supportive 12. Hypothermia: increasing coagulopathy with noted GCF bleed s/p hemostasis with chemical cautery by Dr. Blackburn Patient seen and examined in collaboration with Dr. Meliton Blackburn. Thank you. Problems: Subjective 24 Hr Interval Summary No new neurological changes. Appears comfortable on vent. Nonverbal indicators of pain not present. No fevers, vomiting, diarrhea, edie bleed from G[facility] or sz. Exam/Review of Systems Vital Signs Vitals Vital Signs Date Time Temp Pulse Resp B/P Pulse Ox O2 Delivery O2 Flow Rate FiO2 06/18/17 13:13 59 20 98 30 06/18/17 10:59 97.8 124/63 Intake and Output 06/18/17 06/18/17 06/19/17 15:00 23:00 07:00 Intake Total 720 ml Balance 720 ml Exam Free Text/Dictation Constitutional: non-verbal, awake, nonresponsive, ill-appearing. No oriented Psych: withdraws from pain Head: atraumatic, normocephalic Eyes: nl sclera ENMT: mucosa pink and moist, missing teeth Neck: non-tender, other (trach), supple Respiratory: diminished Cardiovascular: edema generalized Gastrointestinal: distended (mod), other (stoma without overt bleeding, min green drainage), soft, nontender Musculoskeletal: No muscle tone Extremities: edema worsened Neurological: No nl mental status, No nl speech Skin: other (abdominal/peristomal/breast fold pink), cool skin, dry Results Result Diagram: 06/17/17 0610 06/18/17 0541 SHADI CALDERON NP Jun 19, 2017 00:04
== END 2017-06-18 14:30 | DRG 326 ==
LOC: E/R 13:12 → MS3 16:34 → ICU 05-07 21:06 → MS4 05-07 22:35 → ICU 05-09 18:35 → TEL 05-31 18:34 → ICU 06-01 18:35 → TEL 06-04 20:19
PROVIDERS: ADMIT Internal Medicine; ATTEND Internal Medicine
PROC: 5A1955Z Respiratory Ventilation, Greater than 96 Consecutive Hours (ICD-10-PCS; 2017-05-06)
PROC: 4A133R1 Monitoring of Arterial Saturation, Peripheral, Percutaneous Approach (ICD-10-PCS; 2017-05-09)
PROC: 0DHA7UZ Insertion of Feeding Device into Jejunum, Via Natural or Artificial Opening (ICD-10-PCS; 2017-05-12)
PROC: 02HV33Z Insertion of Infusion Device into Superior Vena Cava, Percutaneous Approach (ICD-10-PCS; 2017-05-15)
PROC: 30233N1 Transfusion of Nonautologous Red Blood Cells into Peripheral Vein, Percutaneous Approach (ICD-10-PCS; 2017-05-16)
PROC: 0HQ7XZZ Repair Abdomen Skin, External Approach (ICD-10-PCS; 2017-05-24)
PROC: 0DQ68ZZ Repair Stomach, Via Natural or Artificial Opening Endoscopic (ICD-10-PCS; principal; 2017-05-24 17:00)
PROC: 0W3F3ZZ Control Bleeding in Abdominal Wall, Percutaneous Approach (ICD-10-PCS; 2017-06-11)
DX: K94.22 Gastrostomy infection (principal); R65.21 Severe sepsis with septic shock; J96.21 Acute and chronic respiratory failure with hypoxia; N17.0 Acute kidney failure with tubular necrosis; G92 Toxic encephalopathy; A41.9 Sepsis, unspecified organism; J18.9 Pneumonia, unspecified organism; D61.818 Other pancytopenia; I13.0 Hypertensive heart and chronic kidney disease with heart failure and stage 1 through stage 4 chronic kidney disease, or unspecified chronic kidney disease; L89.153 Pressure ulcer of sacral region, stage 3; N18.4 Chronic kidney disease, stage 4 (severe); E87.0 Hyperosmolality and hypernatremia; L76.22 Postprocedural hemorrhage of skin and subcutaneous tissue following other procedure; L03.311 Cellulitis of abdominal wall; E46 Unspecified protein-calorie malnutrition; B37.49 Other urogenital candidiasis; E87.1 Hypo-osmolality and hyponatremia; I48.0 Paroxysmal atrial fibrillation; Z93.0 Tracheostomy status; E11.22 Type 2 diabetes mellitus with diabetic chronic kidney disease; I50.9 Heart failure, unspecified; E11.51 Type 2 diabetes mellitus with diabetic peripheral angiopathy without gangrene; Z66 Do not resuscitate; I25.10 Atherosclerotic heart disease of native coronary artery without angina pectoris; R13.10 Dysphagia, unspecified; G30.9 Alzheimer's disease, unspecified; F02.80 Dementia in other diseases classified elsewhere, unspecified severity, without behavioral disturbance, psychotic disturbance, mood disturbance, and anxiety; G20 Parkinson's disease; D63.8 Anemia in other chronic diseases classified elsewhere; E78.5 Hyperlipidemia, unspecified; R21 Rash and other nonspecific skin eruption; Z22.322 Carrier or suspected carrier of Methicillin resistant Staphylococcus aureus; E87.6 Hypokalemia; K57.90 Diverticulosis of intestine, part unspecified, without perforation or abscess without bleeding; Z86.73 Personal history of transient ischemic attack (TIA), and cerebral infarction without residual deficits; Y83.3 Surgical operation with formation of external stoma as the cause of abnormal reaction of the patient, or of later complication, without mention of misadventure at the time of the procedure; Y92.230 Patient room in hospital as the place of occurrence of the external cause; E83.42 Hypomagnesemia; K94.21 Gastrostomy hemorrhage; E66.01 Morbid (severe) obesity due to excess calories; K94.23 Gastrostomy malfunction; L89.610 Pressure ulcer of right heel, unstageable; J40 Bronchitis, not specified as acute or chronic; E11.649 Type 2 diabetes mellitus with hypoglycemia without coma
CPT/HCPCS: 36415; 36430; 36569; 36600; 71010; 74176; 80048; 80053; 80150; 80202; 81001; 82533; 82550; 82553; 82803; 82947; 82962; 83605; 83735; 84100; 84134; 84145; 84439; 84443; 84478; 84484; 85014; 85018; 85025; 85610; 85730; 86644; 86850; 86900; 86901; 86920; 87040; 87070; 87081; 87086; 93005; 94002; 94003; 94640; 94664; 94770; 96372; 96374; C1769; C9113; J0278; J0692; J1265; J1610; J1644; J1720; J1815; J1940; J2185; J2250; J2370; J2405; J2997; J3010; J3370; J3475; J3480; J7030; J7040; J7042; J7050; J7060; J7070; P9016; P9047; Q4081